=== PATIENT | female | born 2000 | race Caucasian/White ===

== ENCOUNTER 2023-10-31 20:49 | Emergency (ER) | payer OTHER, SELFPAY ==
[2023-10-31 20:57] VITALS: BP 120/74; PULSE 89; TEMP 37.1; O2SAT 98
--- NOTE | 2023-10-31 21:01 | ECG_ITS ---
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
--- NOTE | 2023-10-31 21:17 | ED_ITS ---
HPI - Dizziness General Chief Complaint: Dizziness Stated Complaint: Dizziness Time Seen by Provider: 10/31/23 21:03 Source: patient Mode of arrival: walk-in Limitations: no limitations History of Present Illness HPI Narrative: This 22-year-old female presents for evaluation of one to 2 weeks of intermittent dizziness which is more pronounced when she changes positions. She has not passed out but states if she is up standing and cleaning for a period of time she feels like she could pass out. She has not had any headache, blurred vision, slurred speech confusion or other neurologic symptoms. She denies any ch est pain or shortness of breath. 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 Bob in [facility] put her on metformin 500 mg due to insulin resistance approximately one month ago. She was on the 500 mg dose and then a week later was increased to 1000 mg. She states she is having some side effects from the medication including nausea and decreased appetite. She has been forcing herself to eat and thinks she is drinking enough fluids. She states she was put on the metformin because she is trying to get . She denies that she is currently in as her last menstrual. Just finished. She is not having any abdominal pain or back pain. She does not smoke cigarettes but Coy. She has not had a fever or cough. She denies any headache, nasal congestion or pressure in her ears or sinuses. Related Data Home Medications ?Medication ?Instructions ?Recorded ?Confirmed escitalopram oxalate 10 mg tablet 10 mg PO QDAY 10/31/23 10/31/23 metformin 500 mg tablet,extended 500 mg PO BID 10/31/23 10/31/23 release 24 hr omeprazole 20 mg capsule,delayed 20 mg PO QAM 10/31/23 10/31/23 release ondansetron HCl 4 mg tablet 4 mg PO Q6H PRN nausea and vomiting 10/31/23 10/31/23 Allergies Allergy/AdvReac Type Severity Reaction Status Date / Time paxil Allergy Mild Insomnia Uncoded 10/31/23 20:57 clonidine Allergy hives Uncoded 10/31/23 20:57 Review of Systems ROS Status of ROS 10 or more systems reviewed and unremark able except as noted in history and below [facility] Medical History (Updated 10/31/23 @ 22:14 by Geri Andrews MD) GERD (gastroesophageal reflux disease) ?K21.9 - Gastro-esophageal reflux disease without esophagitis (ICD-10) Anxiety ?F41.9 - Anxiety disorder, unspecified (ICD-10) Exam Narrative Exam Narrative: Nurses note and vital signs reviewed and patient is not hypoxic. General: The patient appears well and in no apparent distress. Patient is resting comfortably on cart. She is smiling. She has intermittent missing of her face which appears to be a tic Skin: Warm, dry, no pallor noted. There is no rash noted. Head: Normocephalic, atraumatic Eye: Normal conjunctiva, no drainage, EOMI. PERRL. No nystagmus. Mild dizziness with provocative testing, vision is grossly intact Ears, Nose, Mouth, and Throat: oral mucosa is moist. Nares patent. Mouth without vesicles. Ear canals patent. Tm's without Erythema Cardiovascular: Regular Rate and [id number], pulses are brisk and equal bilaterally Respiratory: Patient is in no distress, no accessory muscle use, lungs are clear to auscultation, no wheezing, rales or rhonchi Back: non-tender, no CVA tenderness bilaterally to percussion. GI: Normal bowel sounds, no tenderness to palpation, no masses appreciated. No rebound, guarding, or rigidity noted. Musculoskeletal: The patient has no evidence of calf tenderness, no pitting edema, symmetrical pulses noted bilaterally Neurological: A&O x4, normal speech, Facial droop, patient does have intermittent racial grimacing which appears to be chronic in nature, speech is c lear, upper and lower from the strength and sensation is intact Psychiatric: Cooperative, smiling, appears mildly anxious Constitutional Vital Signs, click to edit/add: Last Vital Signs Temp 98.7 F 10/31/23 20:57 Pulse 72 10/31/23 21:30 Resp 14 10/31/23 20:57 BP 114/66 10/31/23 21:30 Pulse Ox 98 10/31/23 20:57 O2 Del Method Room Air 10/31/23 20:57 Course Vital Signs Vital signs: Vital Signs Temperature 98.7 F 10/31/23 20:57 Pulse Rate 89 10/31/23 20:57 Respiratory Rate 14 10/31/23 20:57 Blood Pressure 120/74 10/31/23 20:57 Pulse Oximetry 98 10/31/23 20:57 Oxygen Delivery Method Room Air 10/31/23 20:57 Temperature 98.7 F 10/31/23 20:57 Pulse Rate 72 10/31/23 21:30 Respiratory Rate 14 10/31/23 20:57 Blood Pressure 114/66 10/31/23 21:30 Pulse Oximetry 98 10/31/23 20:57 Oxygen Delivery Method Room Air 10/31/23 20:57 MDM - Dizziness MDM Narrative Medical decision making narrative: This 22-year-old female who has a history of vape use but a nonsmoker For evalu ation of one to 2 weeks of intermittent dizziness which is worse with positional changes. She has not passed out. She denies any chest pain or shortness of breath. She is currently on 1000 mg of metformin daily due to being diagnosed with influenza by her [employer]. She states that since being placed on that she is having side effects including nausea difficulty eating. She does think that she is able to keep up with her fluids. Her physical exam is benign. Her lungs are clear, abdomen is soft, she EKG done upon arrival is a normal sinus rhythm at 76 bpm. Orthostatic vital signs were mildly positive with pulse with standing. An IV was placed and she was medicated with IV fluids and Zofran. Routine labs are reviewed. She has a normal white count and hemoglobin. Glucose is mildly elevated at 125. She has normal d-dimer and troponin. She is not having any associated neurological symptoms with her dizziness and I did not feel that CT scanning of her brain was indicated. On reevaluation she stated she was feeling fine. Discharged home with a prescription for Zofran to use as needed for ongoing nausea with recommendation for close follow-up with her [employer] who has prescribed the metformin as her symptoms appear to be somewhat related to side effects from this medication. Lab Data Attestation: I reviewed the patient's lab results. Labs: Lab Results 10/31/23 Range/Units 21:21 WBC 6.5 (4.0-11.0) 10^3/uL RBC 4.77 (4.20-5.40) 10^6/uL Hgb 14.3 (12.0-16.0) g/dL Hct 42.7 (36.0-48.0) % MCV 89.5 (81.0-99.0) fL MCH 30.0 (26.7-34.0) pg MCHC 33.5 (29.9-35.2) g/dL RDW 11.2 (11.0-15.0) % Plt Count 309 (150-450) 10^3/uL MPV 10.1 (9.5-13.5) fL Neut % (Auto) 55.7 (43.0-75.0) % Lymph % (Auto) 34.4 (20.5-60.0) % [place] % (Auto) 8.0 (1.7-12.0) % Eos % (Auto) 1.2 (0.9-7.0) % Baso % (Auto) 0.5 (0.2-2.0) % Neut # (Auto) 3.6 (1.4-6.5) 10^3/uL Lymph # (Auto) 2.2 (1.2-3.8) 10^3/uL [place] # (Auto) 0.5 (0.3-0.8) 10^3/uL Eos # (Auto) 0.1 (0.0-0.7) 10^3/uL Baso # (Auto) 0.0 (0.0-0.1) 10^3/uL Abs Immat Gran (auto) 0.01 (0.00-0.03) 10^3/uL Imm/Tot Granulo (auto) 0.2 (0.0-0.5) % D-Dimer <0.19 (<=0.59) mg/L FEU Sodium 141 (136-145) mmol/L Potassium 3.5 (3.5-5.1) mmol/L Chloride 104 (98-107) mmol/L Carbon Dioxide 26.8 (21.0-32.0) mmol/L Anion Gap 13.7 BUN 16.0 (7.0-18.0) mg/dL Creatinine 0.84 (0.55-1.02) mg/dL Est GFR ( Amer) >60 (>=60) Est GFR (Non-Af Amer) >60 (>=60) BUN/Creatinine Ratio 19.0 Glucose 125 H (74-106) mg/dL Calcium 9.1 (8.5-10.1) mg/dL Total Bilirubin 0.3 (0.2-1.0) mg/dL AST 13 L (15-37) U/L ALT 14 (14-59) U/L Alkaline Phosphatase 59 (46-116) U/L Troponin I High Sens <4.0 L (4.0-51.3) pg/mL Total Protein 7.6 (6.4-8.2) g/dL Albumin 3.9 (3.4-5.0) g/dL Globulin 3.7 g/dL Albumin/Globulin Ratio 1.1 ECG Data Attestation: I personally reviewed and interpreted this ECG as follows: (Sinus rhythm at 76 beats for minute, normal axis, normal intervals, no acute ST segment elevation or T-wave inversion) Discharge Plan Discharge Stand Alone Forms: Portal Instructions Chief Complaint: Dizziness Clinical Impression: Medication adverse effect, Dehydration, mild Patient Disposition: Home, Self-Care Time of Disposition Decision: 22:14 Prescriptions / Home Meds: No Action metformin 500 mg tablet extended release 24 hr 500 mg PO BID escitalopram oxalate 10 mg tablet 10 mg PO QDAY omeprazole 20 mg capsule,delayed release(DR/EC) 20 mg PO QAM ondansetron HCl 4 mg tablet 4 mg PO Q6H PRN (Reason: nausea and vomiting) Print Language: B[place] Referrals: Physician,Non-Staff, MD [Primary Care Provider] - 1 week
[2023-10-31 21:30] VITALS: BP 114/66; BP 115/72; BP 123/80; PULSE 72; PULSE 82; PULSE 95
[2023-10-31 21:36] LABS: Basophils Percent Auto 0.5 % (0.2-2.0); Eosinophils Absolute Auto 0.1 10^3/uL (0.0-0.7); Eosinophils Percent Auto 1.2 % (0.9-7.0); Hematocrit 42.7 % (36.0-48.0); Hemoglobin 14.3 g/dL (12.0-16.0); Immature Granulocytes Abs Auto 0.01 10^3/uL (0.00-0.03); Immature Granulocytes Pct Auto 0.2 % (0.0-0.5); Lymphocytes Absolute Auto 2.2 10^3/uL (1.2-3.8); Lymphocytes Percent Auto 34.4 % (20.5-60.0); Mean Corpuscular HGB Conc 33.5 g/dL (29.9-35.2); Mean Corpuscular Volume 89.5 fL (81.0-99.0); Mean Platelet Volume 10.1 fL (9.5-13.5); Monocytes Absolute Auto 0.5 10^3/uL (0.3-0.8); Neutrophils Absolute Auto 3.6 10^3/uL (1.4-6.5); Neutrophils Percent Auto 55.7 % (43.0-75.0); Platelet Count 309 10^3/uL (150-450); Red Blood Count 4.77 10^6/uL (4.20-5.40); Red Cell Distribution Width 11.2 % (11.0-15.0); White Blood Count 6.5 10^3/uL (4.0-11.0)
[2023-10-31] MEDS: 0.9 % SODIUM CHLORIDE 1,000 ML 1000 ML IV (21:48)
[2023-10-31] MEDS: ONDANSETRON PF 4 MG/2 ML VIAL IV (21:48)
[2023-10-31 21:52] LABS: Alanine Aminotransferase 14 U/L (14-59); Albumin Globulin Ratio 1.1; Albumin Level 3.9 g/dL (3.4-5.0); Alkaline Phosphatase 59 U/L (46-116); Anion Gap 13.7; Aspartate Amino Transferase 13 U/L (15-37); Bilirubin Total 0.3 mg/dL (0.2-1.0); Calcium 9.1 mg/dL (8.5-10.1); Carbon Dioxide 26.8 mmol/L (21.0-32.0); Chloride 104 mmol/L (98-107); Estimated GFR (African America >60 (>=60); Estimated GFR (Non-African Ame >60 (>=60); Globulin 3.7 g/dL; Glucose 125 mg/dL (74-106); Potassium 3.5 mmol/L (3.5-5.1); Sodium 141 mmol/L (136-145); Total Protein 7.6 g/dL (6.4-8.2)
[2023-10-31 21:55] LABS: D Dimer <0.19 mg/L FEU (<=0.59); Troponin I High Sensitivity <4.0 pg/mL (4.0-51.3)
[2023-10-31 23:01] LABS: Bilirubin Urine NEGATIVE (NEGATIVE); Blood Urine MODERATE (NEGATIVE); Clarity Urine CLEAR (CLEAR); Color Urine YELLOW (YELLOW); Glucose Urine UA NEGATIVE (NEGATIVE); Ketones Urine TRACE mg/dL (NEGATIVE); Leukocyte Esterase Urine NEGATIVE (NEGATIVE); Nitrite Urine NEGATIVE (NEGATIVE); Protein Urine NEGATIVE (NEG/TRACE); Specific Gravity Urine >=1.030 (1.005-1.025)
[2023-10-31 23:02] LABS: HCG Qualitative Urine* NEGATIVE (NEGATIVE)
[2023-10-31 23:29] LABS: Bacteria Urine MODERATE #/HPF (NONE SEEN); Cast Seen? NONE SEEN #/LPF (NONE SEEN); Crystals Seen? None Seen #/HPF (None Seen); Mucus Urine NONE SEEN (NONE SEEN); RBC Urine 0-2 #/HPF (0-2); Squamous Epithelial Cell Urine MANY #/LPF (NONE/RARE); Urine Culture Indicated YES; WBC Urine 0-2 #/HPF (NONE SEEN)
== END 2023-10-31 23:09 | disposition home or self-care (01) ==
PROVIDERS: Emergency Provider Emergency Medicine
DX: R42 Dizziness and giddiness (principal); E88.819 Insulin resistance, unspecified; K21.9 Gastro-esophageal reflux disease without esophagitis; F41.9 Anxiety disorder, unspecified; F17.290 Nicotine dependence, other tobacco product, uncomplicated; Z79.84 Long term (current) use of oral hypoglycemic drugs; Z79.899 Other long term (current) drug therapy
CPT/HCPCS: 36415; 80053; 81001; 84484; 84703; 85025; 85378; 87086; 93005; 96361; 96374; 99285

== ENCOUNTER 2023-11-15 22:29 | Emergency (ER) | payer OTHER, SELFPAY ==
[2023-11-15 22:34] VITALS: BP 125/86; PULSE 72; TEMP 36.6; O2SAT 98; BMI 19.5
--- NOTE | 2023-11-15 22:52 | ED_ITS ---
HPI - Female Genitourinary General Chief complaint: Urogenital-Female Stated complaint: Pelvic Pain Time Seen by Provider: 11/15/23 22:50 Source: patient Mode of arrival: walk-in History of Present Illness HPI Narrative: presents complaining of pelvic pain. ongoing past 2-3 days. Some discomfort with urination. Normal vaginal discharge. No fever. States she is not Related Data Home Medications ?Medication ?Instructions ?Recorded ?Confirmed escitalopram oxalate 10 mg tablet 10 mg PO QDAY 10/31/23 10/31/23 metformin 500 mg tablet,extended 500 mg PO BID 10/31/23 10/31/23 release 24 hr omeprazole 20 mg capsule,delayed 20 mg PO QAM 10/31/23 10/31/23 release ondansetron HCl 4 mg tablet 4 mg PO Q6H PRN nausea and vomiting 10/31/23 10/31/23 Allergies Allergy/AdvReac Type Severity Reaction Status Date / Time paxil Allergy Mild Insomnia Uncoded 10/31/23 20:57 clonidine Allergy hives Uncoded 10/31/23 20:57 Review of Systems ROS Status of ROS 10 or more systems reviewed and unremark able except as noted in history and below [facility] Medical History (Updated 11/16/23 @ 00:11 by Alexander De Jesus MD) GERD (gastroesophageal reflux disease) ?K21.9 - Gastro-esophageal reflux disease without esophagitis (ICD-10) Anxiety ?F41.9 - Anxiety disorder, unspecified (ICD-10) Exam Constitutional Vital Signs, click to edit/add: Last Vital Signs Temp 97.8 F 11/15/23 22:34 Pulse 72 11/15/23 22:34 Resp 16 11/15/23 22:34 BP 125/86 11/15/23 22:34 Pulse Ox 98 11/15/23 22:34 O2 Del Method Room Air 11/15/23 22:34 Common normals: no apparent distress, average body habitus, oriented x3, no limitations, healthy appearing, alert and well nourished Eye Common normals: EOMs intact bilaterally and conjunctivae normal Respiratory Common normals: normal respiratory effort, no retractions, no use of accessory muscles and clear to auscultation bilaterally Cardio Common normals: regular rate, regular rhythm, S1 normal heart sound and S2 normal heart sound GI Common normals: Normal to inspection, nondistended, normoactive bowel sounds present, soft to palpation and non-tender Extremity Common normals: normal to inspection and full ROM Neuro Common normals: oriented x3, CN's II-XII intact bilaterally, moves all extremities and no focal motor deficits Psych Appearance: grossly normal Course Vital Signs Vital signs: Vital Signs Temperature 97.8 F 11/15/23 22:34 Pulse Rate 72 11/15/23 22:34 Respiratory Rate 16 11/15/23 22:34 Blood Pressure 125/86 11/15/23 22:34 Pulse Oximetry 98 11/15/23 22:34 Oxygen Delivery Method Room Air 11/15/23 22:34 Temperature 97.8 F 11/15/23 22:34 Pulse Rate 72 11/15/23 22:34 Respiratory Rate 16 11/15/23 22:34 Blood Pressure 125/86 11/15/23 22:34 Pulse Oximetry 98 11/15/23 22:34 Oxygen Delivery Method Room Air 11/15/23 22:34 MDM - Female Genitourinary MDM Narrative Medical decision making narrative: patient presents complaining of pelvic discomfort. Exam with mild suprapubic tenderness. UA neg. Patient informed that her urine was clear. She stated that she is actually feeling better now and requested discharge. States she will follow up with her doctor Lab Data Labs: Lab Results 11/15/23 Range/Units 22:45 Urine Color Yellow (YELLOW) Urine Clarity Clear (CLEAR) Urine pH 6.5 (5.0-9.0) Ur Specific [place] 1.025 (1.005-1.025) Urine Protein Negative (NEG/TRACE) mg/dL Urine Glucose (UA) Negative (NEGATIVE) mg/dL Urine Ketones Negative (NEGATIVE) mg/dL Urine Occult Blood Negative (NEGATIVE) Urine Nitrite Negative (NEGATIVE) Urine Bilirubin Negative (NEGATIVE) Urine Urobilinogen 0.2 (0.2-1.0) EU/dL Ur Leukocyte Esterase Negative (NEGATIVE) Urine HCG, Qual Negative (NEGATIVE) Discharge Plan Discharge Stand Alone Forms: Portal Instructions Chief Complaint: Urogenital-Female Clinical Impression: Pelvic pain Patient Disposition: Home, Self-Care Prescriptions / Home Meds: No Action metformin 500 mg tablet extended release 24 hr 500 mg PO BID escitalopram oxalate 10 mg tablet 10 mg PO QDAY omeprazole 20 mg capsule,delayed release(DR/EC) 20 mg PO QAM ondansetron HCl 4 mg tablet 4 mg PO Q6H PRN (Reason: nausea and vomiting) Print Language: Kittitian Instructions: Pelvic Pain (ED) Additional Instructions: follow up with your doctor in the next few days Referrals: Physician,Non-Staff, MD [Primary Care Provider] - 1 week
[2023-11-15 22:57] LABS: Bilirubin Urine NEGATIVE (NEGATIVE); Blood Urine NEGATIVE (NEGATIVE); Clarity Urine CLEAR (CLEAR); Color Urine YELLOW (YELLOW); Glucose Urine UA NEGATIVE (NEGATIVE); Ketones Urine NEGATIVE (NEGATIVE); Leukocyte Esterase Urine NEGATIVE (NEGATIVE); Nitrite Urine NEGATIVE (NEGATIVE); Protein Urine NEGATIVE (NEG/TRACE); Specific Gravity Urine 1.025 (1.005-1.025); Urobilinogen Urine 0.2 EU/dL (0.2-1.0); pH Urine 6.5 (5.0-9.0)
[2023-11-15 22:58] LABS: HCG Qualitative Urine* NEGATIVE (NEGATIVE); Urine Microscopic Indicated NO
== END 2023-11-16 00:23 | disposition home or self-care (01) ==
PROVIDERS: Emergency Provider Internal Medicine
DX: R10.2 Pelvic and perineal pain (principal); K21.9 Gastro-esophageal reflux disease without esophagitis; F41.9 Anxiety disorder, unspecified; Z79.899 Other long term (current) drug therapy; Z79.84 Long term (current) use of oral hypoglycemic drugs
CPT/HCPCS: 81003; 84703; 99283

== ENCOUNTER 2023-11-29 22:13 | Emergency (ER) | payer OTHER, SELFPAY ==
[2023-11-29 22:25] VITALS: BP 116/81; PULSE 88; TEMP 36.9; O2SAT 98
--- OUTSIDE RECORDS SUMMARY | 2023-11-29 22:28 | XMS_ITS | CCD ---
Author Organization [facility] Care Team Providers Care Radio Technician Name Role Phone Page Adan Primary Care Unavailable Esdras Villanueva Admitting Unavailable Esdras Villanueva Attending Unavailable Page Adan Primary Care Unavailable Cornici, Hong Admitting Unavailable Cornici, Hong Attending Unavailable Page Adan Primary Care Unavailable Cornici, Hong Admitting Unavailable Cornici, Hong Attending Unavailable HABERDILIA SNOW Admitting Unavailable HABDILIA OWUSU Attending Unavailable NO, DOCTOR ON Referring Unavailable DILIA BURNS Primary Care Unavailable NO, DOCTOR ON Consulting Unavailable Page Adan Unavailable Alie Rodriguez Unavailable Unavailable Jordyn Ramirez D Unavailable Unavailable Unavailable Jordyn Ramirez CNP Primary Care Provider [phone] JOSELIN NOYOLA Referring Unavailable JOSELIN NOYOLA Admitting Unavailable RAMIREZ, JORDYN ARIE Primary Care Unavailable JOSELIN NOYOLA Attending Unavailable RAMIREZ, JORDYN ARIE Primary Care Unavailable JOSELIN NOYOLA Referring Unavailable RAMIREZ, JORDYN ARIE Primary Care Unavailable JOSELIN NOYOLA Admitting Unavailable JOSELIN NOYOLA Attending Unavailable RAMIREZ, JORDYN ARIE Primary Care Unavailable JOSELIN NOYOLA Referring Unavailable JOSELIN NOYOLA Admitting Unavailable RAMIREZ, JORDYN ARIE Primary Care Unavailable JOSELIN NOYOLA Attending Unavailable RAMIREZ, JORDYN ARIE Primary Care Unavailable Jordyn Thakur Unavailable Page Adan Unavailable Jordyn Thakur Unavailable Tyrell Pelaez Unavailable Unavailable Fried, Jocelyne Unavailable Unavailable Ofe RAILWAY SIGNALLING ENGINEER-INSTRUCTOR [employer]PAR[employer]URE, Jordyn D Primary Care Provider Alie Flor Unavailable Unavailabl e RAMIREZ, JORDYN ARIE Primary Care Unavailable STANLEY QUILES Attending Unavailable STANLEY QUILES Attending Unavailable JEREMIASGo JOANNA JAKEM Primary Care Unav ailable ASHLEY, JORDYN ARIE Primary Care Unavailable MARE LEAVITT Attending Unava ilBautista Alberts Unavailable Unavailable Chris Blue. Unavailable Unavailabl e THAKUR, INSTRUCTOR APPAREL MANUFACTURE JORDYN ARIE Primary Care Unavailab le Fried, . Jocelyne Lee Attending Unavailabl e THAKUR, INSTRUCTOR APPAREL MANUFACTURE JORDYN ARIE Primary Care Unavailab le Zarrabi, Dr. Mcmullen Attending Unavailable Wale, Dr. Mcmullen Referring Unavailable THAKUR, KARLENE JORDYN ARIE Attending Unavailab le THAKUR, INSTRUCTOR APPAREL MANUFACTURE JORDYN ARIE Referring Unavailab le THAKUR, INSTRUCTOR APPAREL MANUFACTURE JORDYN ARIE Primary Care Unavailab le THAKUR, INSTRUCTOR APPAREL MANUFACTURE JORDYN ARIE Attending Unavailab le THAKUR, INSTRUCTOR APPAREL MANUFACTURE JORDYN ARIE Referring Unavailab le THAKUR, INSTRUCTOR APPAREL MANUFACTURE JORDYN ARIE Primary Care Unavailab le Doryrrcandace, Dr. Mcmullen Attending Unavailable Zarrcandace, Dr. Mcmullen Referring Unavailable THAKUR, INSTRUCTOR APPAREL MANUFACTURE JORDYN ARIE Primary Care Unavailab le THAKUR, KARLENE JORDYN ARIE Primary Care Unavailab le Zarrabi, Dr. Mcmullen Attending Unavailable Wale, Dr. Mcmullen Referring Unavailable Thakur FATEMEH-KARLENE, Jordyn D Unavailable Abdelrahman DIANE, Claudia Unavailable Unavailable Basia, Ms. Alie Ward Attending Unavailable Thakur, Ms. Jordyn Arie Primary Care Unavailab le Thakur, Ms. Jordyn Arie Primary Care Unavailab le LeMasters, Dr. Chris Lemos Attending Unav ailable Thakur, Ms. Jordyn Arie Primary Care Unavailab le Latanya, Dr. Tyrell Gray Attending Unavailabl e Thakur, Ms. Jordyn Arie Primary Care Unavailab le Bautista Villanueva Attending Unavailable Daniel Berkowitz Admitting Unavailab le Daniel Berkowitz Referring Unavailab le OFE JORDYN D Primary Care Unavailable NONE, XXXX Primary Care Physician Unavailab Anika Reaves Attending Unavailable Anika Bob Admitting Unavailable THAUKRJORDYN CELESTIN Attending Unavailable THAKUR, JORDYN D Primary Care Unavailable KEMI ECHEVARRIA Attending Unavailable THAKUR, JORDYN D Primary Care Unavailable THAKUR, JORDYN D Attending Unavailable THAKUR, JORDYN D Primary Care Unavailable THAKUR, JORDYN D Attending Unavailable THAKUR, JORDYN D Primary Care Unavailable THAKUR, JORDYN D Attending Unavailable THAKUR, JORDYN D Primary Care Unavailable BRADANIKA Attending Unavailable THAKUR, JORDYN D Primary Care Unavailable THAKUR, JORDYN D Attending Unavailable THAKUR, JORDYN D Primary Care Unavailable THAKUR, JORDYN D Attending Unavailable THAKUR, JORDYN D Primary Care Unavailable THAKUR, JORDYN D Attending Unavailable THAKUR, JORDYN D Primary Care Unavailable THAKUR, JORDYN D Primary Care Unavailable Allergies Allergy Classification Reported Allergen(s) Allergy Type Date of Onset Reaction(s) Facility cloNIDine (1 source) cloNIDine Drug Allergy Hives/Urticaria [facility] (20 sources) cloNIDine; Translations: [clonidine] Drug Allergy 1 [facility] Rep[facility] (9 sources) PARoxetine; Translations: [PAROXETINE HCL] Drug Allergy 3 [facility] Work Phone: Medications Current Medications Medication Drug Class(es) Dates Sig (Normalized) Sig (Original) azithromycin 250 mg oral tablet (1 source) Macrolide Antimicrobial Start: 09-19-2023 End: 09-23-2023 azithromycin (Zithromax) 250 mg tablet Indications: Acute non-recurrent sinusitis, unspecified location Take 2 tablets (500 mg) by mouth once daily for 1 day, THEN 1 tablet (250 mg) once daily for 4 days. Take 2 tabs (500 mg) by mouth today, than 1 daily for 4 days.. 6 tablet 0 09/19/2023 09/23/2023 Active busPIRone hydrochloride 5 mg oral tablet (17 sources) Start: 03-03-2022 busPIRone (Buspar) 5 mg tablet Take by mouth 3 times a day as needed. 0 03/03/2022 Active cefdinir 300 mg oral capsule (4 sources) Cephalosporin Antibacterial Start: 04-11-2023 End: 05-18-2023 take 1 capsule by mouth twice daily cefdinir 300 mg oral capsule ; 1 cap(s) orally 2 times a day Quantity: 8 Refills: 0 Ordered: 11-Apr-2023 Bautista Villanueva Start: 11-Apr-2023 End: 14-Apr-2023 Generic Substitution Allowed Comments: Finish all this medication unless otherwise directed by prescriber. Comment on above: Finish all this medi cation unless otherwise directed by prescriber. clomiPHENE citrate 50 mg oral tablet (1 source) Estrogen Agonist/Antagonist Start: 10-04-2023 take 1 tablet by mouth once daily Clomid 50 mg tablet Take 1 tablet (50 mg) by mouth once daily. 0 10/04/2023 Active COVID-19 antigen test (COVID-19 At-Home Test) kit (1 source) Start: 09-19-2023 End: 09-19-2023 COVID-19 antigen test (COVID-19 At-Home Test) kit Indications: Nasal congestion 1 each 1 time for 1 dose. 2 each 0 09/19/2023 09/19/2023 Active escitalopram 20 mg oral tablet (4 sources) Serotonin Reuptake Inhibitor Start: 10-10-2023 take 1 tablet by mouth once daily escitalopram (Lexapro) 20 mg tablet Indications: Generalized anxiety disorder with panic attacks Take 1 tablet (20 mg) by mouth once daily. 90 tablet 2 10/10/2023 Active Start: 09-12-2023 End: 10-10-2023 take 1 tablet by mouth once daily escitalopram (Lexapro) 10 mg tablet Indications: Generalized anxiety disorder with panic attacks Take 1 tablet (10 mg) by mouth once daily. 90 tablet 0 09/12/2023 10/10/2023 Discontinued (Therapy completed) ibuprofen 400 mg oral tablet (1 source) Nonsteroidal Anti-inflammatory Drug Start: 04-24-2022 End: 05-24-2022 take 1 tablet by mouth every six hours as needed for pain ibuprofen (ADVIL,MOTRIN) 400 MG tablet Take 1 (one) tablet (400 mg total) by mouth every 6 (six) hours as needed for pain . 30 tablet 0 04/24/2022 05/24/2022 Active 24 hr metFORMIN hydrochloride 500 mg extended release oral tablet (1 source) Biguanide Start: 10-02-2023 take 1 tablet by mouth every twenty-four hours metFORMIN XR 500 mg 24 hr tablet Take 1 tablet (500 mg) by mouth. 0 10/02/2023 Active nitrofurantoin, macrocrystals 25 mg / nitrofurantoin, monohydrate 75 mg oral capsule (1 source) Nitrofuran Antibacterial Start: 05-18-2023 End: 05-25-2023 take 1 capsule by mouth twice daily nitrofurantoin, macrocrystal-monohyd rate, (Macrobid) 100 mg capsule Indications: Urinary tract infection with hematuria, site unspecified Take 1 capsule (100 mg) by mouth 2 times a day for 7 days. 14 capsule 0 05/18/2023 05/25/2023 Active omeprazole 20 mg delayed release oral capsule (20 sources) Proton Pump Inhibitor Start: 03-03-2022 End: 05-18-2023 take 1 capsule by mouth once daily before mealtime omeprazole (PriLOSEC) [address] capsule Indications: Gastroesophageal reflux disease without esophagitis Take 1 capsule (20 mg) by mouth once daily in the morning. Take before meals. 90 capsule 1 05/18/2023 Active ondansetron 4 mg oral tablet (3 sources) Serotonin-3 Receptor Antagonist Start: 09-19-2023 take 1 tablet by mouth every eight hours as needed for nausea and nausea ondansetron (Zofran) 4 mg tablet Indications: Nausea Take 1 tablet (4 mg) by mouth every 8 hours if needed for nausea or vomiting. 30 tablet 0 09/19/2023 Active Start: 11-06-2022 End: 11-07-2022 take 1 tablet by mouth three times daily as needed for nausea and vomiting ondansetron 4 mg oral tablet, disintegrating ; 1 tab(s) orally 3 times a day, As Needed -for nausea and vomiting Quantity: 6 Refills: 0 Ordered: 06-Nov-2022 Alie Flor Start: 06-Nov-2022 End: 07-Nov-2022 Generic Substitution Allowed PARoxetine hydrochloride 20 mg oral tablet (13 sources) Serotonin Reuptake Inhibitor Start: 04-23-2023 End: 05-18-2023 take 1 tablet by mouth once daily PARoxetine (Paxil) 20 mg tablet Indications: Generalized anxiety disorder with panic attacks Take 1 tablet (20 mg) by mouth once daily. 90 tablet 3 04/23/2023 05/18/2023 Discontinued (Therapy completed) Start: 02-14-2023 End: 04-23-2023 take 1 tablet by mouth once daily PARoxetine (Paxil) 40 mg tablet Indications: Generalized anxiety disorder with panic attacks Take 1 tablet (40 mg) by mouth once daily. 90 tablet 1 02/14/2023 04/23/2023 Discontinued (Reorder) Start: 03-03-2022 take 1 tablet by christiano th once daily PARoxetine (Paxil) 40 mg tablet Take 1 tablet (40 mg) by mouth once daily. 0 08/03/2022 Active Start: 03-03-2022 take 1 tablet by christiano th once daily PARoxetine HCl - 30 MG Oral Tablet TAKE 1 TABLET DAILY. Quantity: 90 Refills: 1 Ordered: 06-Jun-2022 Ofe RAILWAY SIGNALLING ENGINEER-INSTRUCTOR [employer]PAR[employer]UFACTURE, Jordyn Start : 03-Mar-2022 Active Start: 03-03-2022 take 1 tablet by christiano th once daily PARoxetine HCl - 10 MG Oral Tablet TAKE 1 TABLET DAILY. Quantity: 90 Refills: 0 Ordered: 03-Mar-2022 Ashley RAILWAY SIGNALLING ENGINEER-INSTRUCTOR [employer]PAREL [employer]UFACTURE, Jordyn Start : 03-Mar-2022 Active take 1 tablet by christiano th once daily in the morning PARoxetine mesylate 40 mg oral tablet ; 1 tab(s) orally once a day (in the morning) Quantity: 0 Refills: 0 Ordered: 24-Aug-2022 Denis Kurtz Generic Substitution Allowed phenazopyridine hydrochloride 200 mg oral tablet (1 source) Start: 06-19-2023 End: 06-21-2023 take 1 tablet by mouth three times daily phenazopyridine (Pyridium) 200 mg tablet Indications: Urinary tract infection without hematuria, site unspecified Take 1 tablet (200 mg) by mouth 3 times a day for 2 days. 6 tablet 0 06/19/2023 06/21/2023 Active Completed/Discontinued Medications Medication Drug Class(es) Dates Sig (Normalized) Sig (Original) cephalexin 500 mg oral capsule (2 sources) Cephalosporin Antibacterial Start: 06-19-2023 End: 06-24-2023 cephalexin (Keflex) capsule 500 mg citalopram 10 mg oral tablet (7 sources) Serotonin Reuptake Inhibitor Start: 09-12-2023 End: 10-10-2023 take 1 tablet by mouth once daily citalopram (CeleXA) 10 mg tablet Indications: Generalized anxiety disorder with panic attacks Take 1 tablet (10 mg) by mouth once daily. 30 tablet 0 09/12/2023 10/10/2023 Discontinued (Therapy completed) Start: 07-13-2023 End: 09-12-2023 take 1 tablet by mouth once daily citalopram (CeleXA) 40 mg tablet Indications: Generalized anxiety disorder with panic attacks Take 1 tablet (40 mg) by mouth once daily. 90 tablet 1 07/13/2023 09/12/2023 Discontinued (Therapy completed) Start: 05-18-2023 take 1 tablet by christiano once daily citalopram (CeleXA) 10 mg tablet Indications: Generalized anxiety disorder with panic attacks Take 1 tablet (10 mg) by mouth once daily. 90 tablet 0 05/18/2023 Active fluconazole 150 mg oral tablet (2 sources) Azole Antifungal Start: 10-20-2022 End: 04-23-2023 fluconazole (Diflucan) 150 mg tablet Indications: Vaginal yeast infection TAKE 1 TAB Q72 HOURS PRN 3 tablet 0 10/20/2022 04/23/2023 Discontinued (Therapy completed) medroxyPROGESTERone (2 sources) Progestin inject 1 mL by intramuscular injection every three months Depo-Provera SUSP INJECT 1 ML INTRAMUSCULARLY ONCE EVERY 3 MONTHS. Quantity: 0 Refills: 0 Ordered: 03-Mar-2022 DO Active nirmatrelvir-ritonavir (Paxlovid) 300 mg (150 mg x 2)-100 mg tablet therapy pack (1 source) Start: 09-20-2023 End: 10-10-2023 take 3 tablets by mouth twice daily nirmatrelvir-riton avir (Paxlovid) 300 mg (150 mg x 2)-100 mg tablet therapy pack Indications: COVID-19 Take 3 tablets by mouth 2 times a day. 30 tablet 0 09/20/2023 10/10/2023 Discontinued (Therapy completed) nitrofurantoin, macrocrystals 100 mg oral capsule (1 source) Nitrofuran Antibacterial Start: 07-04-2023 End: 08-21-2023 nitrofurantoin (Macrodantin) 100 mg capsule take 1 capsule twice a day for 3 to 7 days 0 07/04/2023 08/21/2023 Discontinued (Therapy completed) predniSONE 10 mg oral tablet (2 sources) Start: 09-19-2023 End: 10-10-2023 take 3 tablets by mouth once daily predniSONE (Deltasone) 10 mg tablet Indications: Acute non-recurrent sinusitis, unspecified location Take 3 tablets (30 mg) by mouth once daily. 15 tablet 0 09/19/2023 10/10/2023 Discontinued (Therapy completed) Problems Active Problems Problem Classification Problem Date Documented Date Episodic/Chronic Administrative/socia l admission (3 sources) Patient encounter status; Translations: [Other reasons for seeking consultation] 08-21-2023 Episodic Anxiety disorders (20 sources) Generalized anxiety disorder; Translations: [Generalized anxiety disorder] Onset: 08-24-2022 10-20-2022 Chronic Attention-deficit, conduct, and disruptive behavior disorders (8 sources) Attention deficit hyperactivity disorder; Translations: [Attention-deficit hyperactivity disorder, unspecified type] Onset: 02-22-2011 10-20-2022 Chronic Contraceptive and procreative management (4 sources) Encounter for other general counseling and advice on contraception; Translations: [Encounter for other general counseling and advice on contraception] Onset: 08-21-2023 Episodic Esophageal disorders (18 sources) Gastroesophageal reflux disease; Translations: [Esophageal reflux] Onset: 10-19-2016 10-20-2022 Chronic Menstrual disorders (12 sources) Missed period; Translations: [Irregular menstrual cycle] Onset: 10-20-2022 10-20-2022 Chronic Nausea and vomiting (7 sources) Nausea; Translations: [Nausea alone] Onset: 11-06-2022 11-06-2022 Episodic Other aftercare (2 sources) Encounter for follow-up examination after completed treatment for conditions other than malignant neoplasm; Translations: [Encounter for follow-up examination after completed treatment for conditions other than malignant neoplasm] Onset: 06-07-2022 Episodic Other aftercare (1 source) Other fci (current) drug therapy; Translations: [Other terminal superintendent (current) drug therapy] Onset: 04-13-2023 Episodic Other female genital disorders (2 sources) Vaginal bleeding 08-24-2022 Chronic Comment on above: VAGINAL BLEEDING Other female genital disorders (2 sources) Abnormal uterine bleeding; Translations: [Other disorders of menstruation and other abnormal bleeding from female genital tract] 08-24-2022 Chronic Other female genital disorders (1 source) Other specified abnormal uterine and vaginal bleeding; Translations: [Other specified abnormal uterine and vaginal bleeding] Onset: 08-24-2022 Chronic Other female genital disorders (1 source) Abnormal uterine and vaginal bleeding, unspecified; Translations: [Abnormal uterine and vaginal bleeding, unspecified] Onset: 08-24-2022 Chronic Other hematologic conditions (2 sources) Precipitous drop in hematocrit 04-10-2023 Episodic Other nutritional; endocrine; and metabolic disorders (1 source) Weight gain; Translations: [Abnormal weight gain] Episodic Other upper respiratory disease (3 sources) Nasal congestion; Translations: [Nasal congestion] Onset: 09-19-2023 09-19-2023 Episodic Other upper respiratory disease (2 sources) Pain in throat; Translations: [Sore Throat] Onset: 09-19-2023 Episodic Other upper respiratory infections (5 sources) Acute pharyngitis, unspecified; Translations: [Acute sinusitis] Onset: 10-02-2022 Episodic Residual codes; unclassified (6 sources) History finding; Translations: [Other specified conditions influencing health status] Episodic Residual codes; unclassified (2 sources) Pain, unspecified; Translations: [Pain, unspecified] Onset: 05-10-2022 Episodic Residual codes; unclassified (2 sources) Influenza vaccination declined; Translations: [Vaccination not carried out because of patient refusal] Onset: 06-14-2022 Episodic Spondylosis; intervertebral disc disorders; other back problems (4 sources) Low back pain; Translations: [Dorsalgia, unspecified] Onset: 04-13-2023 04-13-2023 Episodic Comment on above: LOWER BACK PAIN Substance-related disorders (15 sources) Nicotine dependence; Translations: [Tobacco use disorder] Onset: 10-20-2022 10-20-2022 Chronic Unclassified (2 sources) LIGHT HEADED 01-04-2021 Comment on above: LIGHT HEADED Unclassified (1 source) Dizzy 01-04-2021 Unclassified (2 sources) Injury Onset: 04-25-2022 Unclassified (1 source) 6 WEEK FU LABS 08-03-2022 Comment on above: 6 WEEK FU LABS Unclassified (1 source) SPOTTING? 08-09-2022 Comment on above: SPOTTING? Unclassified (2 sources) UPSET STOMACH, DIZZYNESS 11-06-2022 Comment on above: UPSET STOMACH, DIZZY NESS Unclassified (1 source) Acute abdominal pain in right lower quadrant 04-09-2023 Unclassified (1 source) Acute candidiasis of vulva and vagina; Translations: [Acute candidiasis of vulva and vagina] Onset: 10-20-2022 Past or Other Problems Problem Classification Problem Date Documented Date Episodic/Chronic Abdominal pain (17 sources) Right lower quadrant pain; Translations: [Abdominal pain, right lower quadrant] Onset: 04-13-2023 04-09-2023 Episodic Acquired foot deformities (8 sources) Talipes cavus; Translations: [Congenital pes cavus, unspecified foot] Onset: 03-31-2014 10-20-2022 Episodic Acute and unspecified renal failure (17 sources) Injury of kidney; Translations: [Acute kidney failure, unspecified] Onset: 04-11-2023 04-09-2023 Episodic Comment on above: ACUTE KIDNEY FAILURE , UNSPECIFIED Conditions associated with dizziness or vertigo (15 sources) Dizziness; Translations: [Dizziness and giddiness] Onset: 10-20-2022 Resolved: 09-12-2023 01-04-2021 Episodic Fracture of upper limb (5 sources) Closed fracture of distal phalanx of middle finger; Translations: [Nondisplaced fracture of distal phalanx of left middle finger, initial encounter for closed fracture] Onset: 04-24-2022 Episodic Genitourinary symptoms and ill-defined conditions (19 sources) History of urinary tract infection; Translations: [Personal history of urinary (tract) infections] Onset: 04-23-2023 04-23-2023 Episodic Mycoses (9 sources) Candidiasis of vagina; Translations: [Vaginal yeast infection] Onset: 10-20-2022 Resolved: 04-23-2023 10-20-2022 Episodic Other injuries and conditions due to external causes (1 source) Underdosing of selective serotonin reuptake inhibitors, initial encounter; Translations: [Underdosing of selective serotonin reuptake inhibitors, init] Onset: 11-06-2022 Episodic Other skin disorders (12 sources) Night sweats; Translations: [Generalized hyperhidrosis] Onset: 10-20-2022 Resolved: 09-12-2023 10-20-2022 Episodic Residual codes; unclassified (12 sources) Insomnia; Translations: [Insomnia, unspecified] Onset: 10-20-2022 10-20-2022 Episodic Residual codes; unclassified (1 source) Patient's unintentional underdosing of medication regimen for other reason; Translations: [Patient's unintent undrdose of meds regimen for oth reason] Onset: 11-06-2022 Episodic Screening and history of mental health and substance abuse codes (2 sources) Screening - NAD; Translations: [Screening for depression] Onset: 08-24-2022 Episodic Unclassified (8 sources) Onset: 10-20-2022 Resolved: 10-10-2023 10-20-2022 Unclassified (1 source) STOMACH PAIN AND VOMITTING 04-09-2023 Comment on above: STOMACH PAIN AND VOM ITTING Unclassified (1 source) Acute candidiasis of vulva and vagina; Translations: [Acute candidiasis of vulva and vagina] Onset: 02-14-2023 Urinary tract infections (20 sources) Acute cystitis without hematuria; Translations: [Pyelonephritis] Onset: 02-14-2023 Resolved: 04-23-2023 Episodic Results Test Name Value Interpretation Reference Range Facility Anti-Mullerian Hormone (AMH) on 09-27-2023 Mullerian inhibiting substance [Mass/Vol] 1.81 ng/mL Invalid Interpretation Code [facility] Comment on above: Result Comment: For assays employing antibodies, the possibility exists for interference by heterophile antibodies in the samples.1 1.Hermelinda Durán Interferences in Immunoassays - still a threat. Clin. Chem. 2000; 46: 0657-8838. This test was developed and its performance characteristics determined by [employer]. It has not been cleared or approved by the Food and Drug Administration. Reference Range: Females 20 - 25y: 1.23 - 11.51 Median 4.70 AMH concentrations of >= 1.06 ng/mL is correlated with a better response to ovarian stimulation, produced more retrievable oocytes and higher odds of live according to Evier et al. Fertility and Sterility. 2010: 94:0450-6828. The current AMH test method correlates with the study method with a slope of 0.94. Females at risk of ovarian hyperstimulation syndrome or polycystic ovarian syndrome (PCOS) may exhibit elevated serum AMH concentrations. AMH levels from PCOS patients may be 2 to 5 fold higher than age-appropriate reference interval values. Granulosa cell tumors of the ovary may secrete AMH along with other tumor markers. Elevated AMH is not specific for malignancy, and the assay should not be used exclusively to diagnose or exclude an AMH-secreting ovarian tumor. Performed at: [facility] [address], [place] [id number] MD Todd Bedoya Performed By: #### 2 [id number] #### [facility] [address] [place] [address] FSH and LHon 09-27-2023 Follitropin Qn 2.8 m[IU]/mL Invalid Interpretation Code [facility] Comment on above: Result Comment: Adul t Female Range Follicular phase 3.5 - 12.5 Ovulation phase 4.7 - 21.5 Luteal phase 1.7 - 7.7 Postmenopausal 25.8 - 134.8 Performed at: [address] [id number] PhD Tim Quezada Performed By: #### 2 [id number] #### [facility] [address] [place] [address] Lutropin Qn 3.8 m[IU]/mL Invalid Interpretation Code [facility] Comment on above: Result Comment: Adul t Female Range Follicular phase 2.4 - 12.6 Ovulation phase 14.0 - 95.6 Luteal phase 1.0 - 11.4 Postmenopausal 7.7 - 58.5 Performed By: #### 2 [id number] #### [facility] [address] [place] [address] Insulin Lvlon 09-27-2023 Insulin Qn 31.9 u[IU]/mL High 2.6-24.9 [facility] Comment on above: Result Comment: Perf ormed at: [address] [id number] PhD Tim Quezada Performed By: #### 2 [id number] #### [facility] [address] [place] [address] CHEMISTRYOrdered By: SYSTEM SYSTEM on 09-22-2023 Prolactin 14.07 ng/mL Normal 3.34 - 26.72 ng/mL Remisol Chem TSH Qn 1.94 m[IU]/L Normal 0.34 - 5.60 mcIU/mL Remisol Chem Consent for Treatmenton Consent for Treatment [id number] Normal [facility] Physician Orderon 09-22-2023 Physician Order [id number]#[id number] Normal [facility] Prolactinon 09-22-2023 Prolactin 14.07 ng/mL Normal 3.34-26.72 [facility] Comment on above: Performed By: #### 2 [id number], [id number], [id number], [id number], [id number] #### [facility] [address] [place] [address] TSHon 09-22-2023 TSH Qn 1.94 m[IU]/L Normal 0.34-5.60 [facility] Comment on above: Performed By: #### 2 [id number], [id number], [id number], [id number], [id number] #### [facility] [address] [place] [address] Progesteroneon 08-27-2023 Progesterone [Mass/Vol] 5.4 ng/mL Normal [facility] Comment on above: Result Comment: Ref Values Male <0.3- 1.2 Follicular Phase <0.3- 1.4 Luteal Phase 3.3-25.6 Mid-Luteal Phase 4.4-28.0 Postmenopausal <0.3- 0.7 Females: 1st Trimester 11.2- 90.0 2nd Trimester 25.6- 89.4 3RD Trimester 48.4-422.5 Patients receiving DHEA-S supplements may show false elevation of progesterone for results near 1.0 ng/mL. Contact laboratory at [phone] if alternative testing is needed. Performed By: #### 2 839-9 ###Sridhar Alves ([id number]) [facility] ([facility]) [address] [place], [place] [id number] Bacteria identifiedon 2022 Bacteria identified Cx Nom (U) Test: Urine Culture Specimen Source: Clean Catch/Voided Specimen Type: Urine Specimen Date: 07/13/2023 4:11 PM Result Date: 07/16/2023 11:09 AM Result Status: Final result Abnormal: No Resulting Lab: [facility] [address] [place] [address] CULTURE No significant growth Normal [facility] Comment on above: Performed By: #### 6 30-4 #### CORBIN Alves ([id number]) [facility] ([facility]) [address] [place] [address] Bacteria identifiedon 2022 Bacteria identified Cx Nom (U) Test: Urine Culture Specimen Source: Clean Catch/Voided Specimen Type: Urine Specimen Date: 06/19/2023 5:42 PM Result Date: 06/21/2023 8:49 AM Result Status: Final result Abnormal: No Resulting Lab: [facility] [address] [place] [address] CULTURE Normal genitourinary ivy Normal [facility] Comment on above: Performed By: #### 6 30-4 #### CORBIN Alves ([id number]) [facility] ([facility]) [address] [place] [address] HCG ( test) IA.rapi d Ql (U)on 06-19-2023 HCG ( test) Ql (U) Negative Normal NEGATIVE [facility] Comment on above: Performed By: #### 8 0384-1 #### KELBY ROSS ([id number]) [facility] ([facility]) [address] [place] [address] HCG ( test) IA.rapi d Ql (U)Ordered By: Rob Burnham on 06-19-2023 HCG ( test) Ql (U) Negative NEGATIVE [facility] Interpretation and review of laboratory results Normal [facility] No Panel Informationon 06-19 Interpretation and review of laboratory results Abnormal [facility] Urinalysis complete W Reflex Culture panel (U)on 06-19-2023 Appearance (U) Hazy Normal Clear [facility] Comment on above: Performed By: #### 5 8077-9 #### KELBY ROSS ([id number]) [facility] ([facility]) [address] [place] [address] Bilirubin (U) [Mass/Vol] Negative Normal NEGATIVE [facility] Comment on above: Performed By: #### 5 8077-9 #### KELBY ROSS ([id number]) [facility] ([facility]) [address] [place] [address] Color (U) Yellow Normal Straw, Yellow [facility] Comment on above: Performed By: #### 5 8077-9 #### KELBY ROSS ([id number]) [facility] ([facility]) [address] [place] [address] Glucose Auto test strip (U) [Mass/Vol] Negative Normal NEGATIVE [facility] Comment on above: Performed By: #### 5 8077-9 #### KELBY ROSS ([id number]) [facility] ([facility]) [address] [place] [address] Ketones (U) [Mass/Vol] 5 (TRACE) Abnormal NEGATIVE [facility] Comment on above: Performed By: #### 5 8077-9 #### KELBY ROSS ([id number]) [facility] ([facility]) [address] [place] [address] Leukocyte esterase Auto test strip Ql (U) TRACE Abnormal NEGATIVE [facility] Comment on above: Performed By: #### 5 8077-9 #### KELBY ROSS ([id number]) [facility] ([facility]) [address] [place] [address] Nitrite Auto test strip Ql (U) Negative Normal NEGATIVE [facility] Comment on above: Performed By: #### 5 8077-9 #### KELBY ROSS ([id number]) [facility] ([facility]) [address] [place] [address] pH (U) 5.0 [pH] Normal 5.0, 5.5, 6.0, 6.5, 7.0, 7.5, 8.0 [facility] Comment on above: Performed By: #### 5 8077-9 #### KELBY ROSS ([id number]) [facility] ([facility]) [address] [place] [address] Protein (U) [Mass/Vol] 100 (2+) Normal NEGATIVE [facility] Comment on above: Performed By: #### 5 8077-9 #### KELBY ROSS ([id number]) [facility] ([facility]) [address] [place] [address] RBC (U) [#/Vol] Negative Normal NEGATIVE [facility] Comment on above: Performed By: #### 5 8077-9 #### KELBY ROSS ([id number]) [facility] ([facility]) [address] [place] [address] Specific gravity (U) [Rel density] 1.031 Normal 1.005-1.035 [facility] Comment on above: Performed By: #### 5 8077-9 #### KELBY ROSS ([id number]) [facility] ([facility]) [address] [place] [address] Urobilinogen (U) [Mass/Vol] 2.0 mg/dL Normal <2.0 [facility] Comment on above: Result Comment: Due to a manufacturing issue, low positive urobilinogen results may be falsely positive. Correlate with urine bilirubin and additional clinical/laboratory findings to assess the risk of hemolytic anemia or liver disease. If clinically indicated, repeat testing with an alternate method is available by contacting the laboratory within 24 hours. Some pigments and medications may cause a false positive urobilinogen. Performed By: #### 5 8077-9 #### KELBY ROSS ([id number]) [facility] ([facility]) [address] [place] [address] Appearance (U) Hazy Abnormal Clear [facility] Bilirubin (U) [Mass/Vol] Negative NEGATIVE [facility] Color (U) Yellow Straw, Yellow [facility] Glucose Auto test strip (U) [Mass/Vol] Negative NEGATIVE mg/dL [facility] Ketones (U) [Mass/Vol] 5 (TRACE) Abnormal NEGATIVE mg/dL [facility] Leukocyte esterase Auto test strip Ql (U) TRACE Abnormal NEGATIVE [facility] Nitrite Auto test strip Ql (U) Negative NEGATIVE [facility] pH (U) 5.0 [pH] 5.0, 5.5, 6.0, 6.5, 7.0, 7.5, 8.0 [facility] Protein (U) [Mass/Vol] 100 (2+) Abnormal NEGATIVE mg/dL [facility] RBC (U) [#/Vol] Negative NEGATIVE [facility] Specific gravity (U) [Rel density] 1.031 1.005 - 1.035 [facility] Urobilinogen (U) [Mass/Vol] 2.0 mg/dL Abnormal NINF - 2.0 mg/dL [facility] Comment on above: Due to a manufacturi ng issue, low positive urobilinogen results may be falsely positive. Correlate with urine bilirubin and additional clinical/laboratory findings to assess the risk of hemolytic anemia or liver disease. If clinically indicated, repeat testing with an alternate method is available by contacting the laboratory within 24 hours. Some pigments and medications may cause a false positive urobilinogen. Urinalysis microscopic panel Auto Ql (U)on 06-19-2023 Epithelial cells.squamous Auto (Urine sed) [#/Area] 10-25 (FEW) Normal Reference range not established. [facility] Comment on above: Performed By: #### 5 3315-8 #### KELBY ROSS ([id number]) [facility] ([facility]) [address] [place], [place] [address] Mucus Auto (Urine sed) [#/Area] 2+ /LPF Normal Reference range not established. [facility] Comment on above: Performed By: #### 5 4535-8 #### KELBY ROSS ([id number]) [facility] ([facility]) [address] [place] [address] RBC Auto (Urine sed) [#/Area] 3-5 Normal NONE, 1-2, 3-5 [facility] Comment on above: Performed By: #### 5 3315-8 #### KELBY ROSS ([id number]) [facility] ([facility]) [address] [place] [address] WBC Auto (Urine sed) [#/Area] 11-20 Abnormal 1-5, NONE [facility] Comment on above: Performed By: #### 5 3315-8 #### KELBY ROSS ([id number]) [facility] ([facility]) [address] [place] [address] Epithelial cells.squamous Auto (Urine sed) [#/Area] 10-25 (FEW) Reference range not established. /HPF [facility] Mucus Auto (Urine sed) [#/Area] 2+ Reference range not established. /LPF [facility] RBC Auto (Urine sed) [#/Area] 3-5 NONE, 1-2, 3-5 /HPF [facility] WBC Auto (Urine sed) [#/Area] 11-20 Abnormal 1-5, NONE /HPF [facility] Bacteria identifiedon 2022 Bacteria identified Cx Nom (U) Test: Urine Culture Specimen Source: Clean Catch/Voided Specimen Type: Urine Specimen Date: 05/18/2023 10:46 AM Result Date: 05/20/2023 8:13 AM Result Status: Final result Abnormal: No Resulting Lab: [facility] [address] [place] [address] CULTURE No significant growth Normal [facility] Comment on above: Performed By: #### 6 30-4 #### CORBIN Alves ([id number]) [facility] ([facility]) [address] [place] [address] POCT UA Automated manually r esultedon 05-18-2023 Appearance (U) Hazy Abnormal Clear [facility] Work Phone: Glucose Test strip (U) [Mass/Vol] Negative NEGATIVE mg/dl [facility] Work Phone: [phone] Hemoglobin Ql (U) MODERATE (2+) Abnormal NEGATIVE [facility] Work [facility]: [phone] Interpretation and review of laboratory results Abnormal [facility] Work Phone: Leukocyte esterase Test strip Ql (U) Negative NEGATIVE [facility] Work Phone: Nitrite Ql (U) Negative NEGATIVE [facility] Work Phone: pH (U) 7.0 [pH] No Reference Range Established [facility] Work Phone: )[phone] POC Bilirubin, Urine Negative NEGATIVE [facility] Work Phone: )[phone] POC Color, Urine Yellow Straw, Yellow, Light-Yellow [facility] Work Phone: [phone] POC Ketones, Urine 15 (1+) Abnormal NEGATIVE mg/dl [facility] Work Phone: )[phone] POC Protein, Urine 30 (1+) NEGATIVE, 30 (1+) mg/dl [facility] Work Phone: [phone] POC Specific [place], Urine 1.025 1.005 - 1.035 [facility] Work Phone: [phone] POC Urobilinogen, Urine 0.2 0.2, 1.0 EU/DL [facility] Work Phone: [phone] [facility] Work Phone: [phone] CBC AND DIFFERENTIALon 04-14 % AUTOMATED IMMATURE GRAN 0.2 % Normal 0.0 - 0.9 [facility] Comment on above: Result Comment: Tammie ture Granulocyte Count (IG) includes promyelocytes, myelocytes and metamyelocytes but does not include bands. Percent differential counts (%) should be interpreted in the context of the absolute cell counts (cells/L). Performed By: #### C BCDF #### [place] [address] Basophils (Bld) [#/Vol] 0.02 10*3/uL Normal 0.00 - 0.10 [facility] Comment on above: Performed By: #### C BCDF #### [address] [address] Basophils/100 WBC (Bld) 0.5 % Normal 0.0 - 2.0 [facility] Comment on above: Performed By: #### C BCDF #### [address] [address] Eosinophils (Bld) [#/Vol] 0.09 10*3/uL Normal 0.00 - 0.70 [facility] Comment on above: Performed By: #### C BCDF #### [address] [address] Eosinophils/100 WBC (Bld) 2.2 % Normal 0.0 - 6.0 [facility] Comment on above: Performed By: #### C BCDF #### [address] [address] Erythrocyte distribution width (RBC) [Ratio] 11.6 % Normal 11.5 - 14.5 [facility] Comment on above: Performed By: #### C BCDF #### [address] [address] Hematocrit (Bld) [Volume fraction] 43.6 % Normal 36.0 - 46.0 [facility] Comment on above: Performed By: #### C BCDF #### [address] [address] Hemoglobin (Bld) [Mass/Vol] 14.3 g/dL Normal 12.0 - 16.0 [facility] Comment on above: Performed By: #### C BCDF #### [address] [address] Lymphocytes (Bld) [#/Vol] 1.48 10*3/uL Normal 1.20 - 4.80 [facility] Comment on above: Performed By: #### C BCDF #### [address] [address] Lymphocytes/100 WBC (Bld) 36.5 % Normal 13.0 - 44.0 [facility] Comment on above: Performed By: #### C BCDF #### [address] [address] MCHC (RBC) [Mass/Vol] 32.8 g/dL Normal 32.0 - 36.0 [facility] Comment on above: Performed By: #### C BCDF #### [address] [address] MCV (RBC) [Entitic vol] 90 fL Normal 80 - 100 [facility] Comment on above: Performed By: #### C BCDF #### [address] [address] Monocytes (Bld) [#/Vol] 0.30 10*3/uL Normal 0.10 - 1.00 [facility] Comment on above: Performed By: #### C BCDF #### [address] [address] Monocytes/100 WBC (Bld) 7.4 % Normal 2.0 - 10.0 [facility] Comment on above: Performed By: #### C BCDF #### [address] [address] Neutrophils (Bld) [#/Vol] 2.16 10*3/uL Normal 1.20 - 7.70 [facility] Comment on above: Result Comment: Perc ent differential counts (%) should be interpreted in the context of the absolute cell counts (cells/L). Performed By: #### C BCDF #### [address] [address] Neutrophils/100 WBC (Bld) 53.2 % Normal 40.0 - 80.0 [facility] Comment on above: Performed By: #### C BCDF #### [address] [address] Platelets (Bld) [#/Vol] 267 10*3/uL Normal 150 - 450 [facility] Comment on above: Performed By: #### C BCDF #### [address] [address] RBC 4.84 x10E12/L Normal 4.00 - 5.20 [facility] Comment on above: Performed By: #### C BCDF #### [address] [address] WBC (Bld) [#/Vol] 4.1 10*3/uL Low 4.4 - 11.3 [facility] Comment on above: Performed By: #### C BCDF #### [place] [id number] COMPREHENSIVE PANELon 2022 Albumin [Mass/Vol] 4.4 g/dL Normal 3.4 - 5.0 [facility] Comment on above: Performed By: #### C MP #### [address] [address] ALP [Catalytic activity/Vol] 42 U/L Normal 33 - 110 [facility] Comment on above: Performed By: #### C MP #### [address] [address] ALT [Catalytic activity/Vol] 20 U/L Normal 7 - 45 [facility] Comment on above: Result Comment: Glory ents treated with Sulfasalazine may generate falsely decreased results for ALT. Performed By: #### C MP #### [address] [address] Anion gap [Moles/Vol] 13 mmol/L Normal 10 - 20 [facility] Comment on above: Performed By: #### C MP #### [address] [address] AST [Catalytic activity/Vol] 25 U/L Normal 9 - 39 [facility] Comment on above: Performed By: #### C MP #### [address] [address] Bilirubin [Mass/Vol] 0.6 mg/dL Normal 0.0 - 1.2 [facility] Comment on above: Performed By: #### C MP #### [address] [address] Calcium [Mass/Vol] 9.5 mg/dL Normal 8.6 - 10.3 [facility] Comment on above: Performed By: #### C MP #### [address] [address] Chloride [Moles/Vol] 106 mmol/L Normal 98 - 107 [facility] Comment on above: Performed By: #### C MP #### [address] [address] Creatinine [Mass/Vol] 0.82 mg/dL Normal 0.50 - 1.05 [facility] Comment on above: Performed By: #### C MP #### [address] [address] eGFR FEMALE >90 Normal >90 [facility] Comment on above: Result Comment: CALC ULATIONS OF ESTIMATED GFR ARE PERFORMED USING THE 2020 CKD-EPI STUDY REFIT EQUATION WITHOUT THE RACE VARIABLE FOR THE IDMS-TRACEABLE CREATININE METHODS. https://jasn.asnjournals.org/content//ASN.24305112 88 Performed By: #### C MP #### [address] [address] Glucose [Mass/Vol] 80 mg/dL Normal 74 - 99 [facility] Comment on above: Performed By: #### C MP #### [address] [address] HCO3 (Bld) [Moles/Vol] 25 mmol/L Normal 21 - 32 [facility] Comment on above: Performed By: #### C MP #### [address] [address] Potassium [Moles/Vol] 3.8 mmol/L Normal 3.5 - 5.3 [facility] Comment on above: Performed By: #### C MP #### [address] [address] Protein [Mass/Vol] 7.0 g/dL Normal 6.4 - 8.2 [facility] Comment on above: Performed By: #### C MP #### [address] [address] Sodium [Moles/Vol] 140 mmol/L Normal 136 - 145 [facility] Comment on above: Performed By: #### C MP #### [address] [address] Urea nitrogen [Mass/Vol] 5 mg/dL Low [facility] Comment on above: Performed By: #### C MP #### [address] [address] HEMOGLOBIN A1Con 04-14-2023 Glucose [Mass/Vol] 88 mg/dL Normal [facility] Comment on above: Performed By: #### H BA1E #### [address] [address] HbA1c (Bld) [Mass fraction] 4.7 % Normal [facility] Comment on above: Result Comment: Diag nosis of Diabetes-Adults Non-Diabetic: < or = 5.6% Increased risk for developing diabetes: 5.7-6.4% Diagnostic of diabetes: > or = 6.5% . Monitoring of Diabetes Age (y) Therapeutic Goal (%) Adults: >18 <7.0 Pediatrics: 13-18 <7.5 7-12 <8.0 0- 6 7.5-8.5 [employer] [employer]. Diabetes Care 33(S1), Jul 2009. Performed By: #### H BA1E #### [address] [address] LIPID PANEL (CORONARY RISK 2 )on 04-14-2023 Cholesterol [Mass/Vol] 159 mg/dL Normal 0 - 199 [facility] Comment on above: Result Comment: . AGE DESIRABLE BORDERLINE HIGH HIGH 0-19 Y 0 - 169 170 - 199 >/= 200 20-24 Y 0 - 189 190 - 224 >/= 225 >24 Y 0 - 199 200 - 239 >/= 240 All ranges are based on fasting samples. Specific therapeutic targets will vary based on patient-specific cardiac risk. . Pediatric guidelines reference:Pediatrics 2011, 128(S5). Adult guidelines reference: NCEP ATPIII Guidelines, ALDO 2001, 258:2486-97 . Venipuncture immediately after or during the administration of Metamizole may lead to falsely low results. Testing should be performed immediately prior to Metamizole dosing. Performed By: #### L IPID #### [address] [address] Cholesterol in HDL [Mass/Vol] 56.0 mg/dL Normal [facility] Comment on above: Result Comment: . AGE VERY LOW LOW NORMAL HIGH 0-19 Y < 35 < 40 40-45 ---- 20-24 Y ---- < 40 >45 ---- >24 Y ---- < 40 40-60 >60 . Performed By: #### L IPID #### [address] [address] Cholesterol in LDL [Mass/Vol] 87 mg/dL Normal 0 - 119 [facility] Comment on above: Result Comment: . NEAR BORD AGE DESIRABLE OPTIMAL HIGH HIGH VERY HIGH 0-19 Y 0 - 109 --- 110-129 >/= 130 ---- 20-24 Y 0 - 119 --- 120-159 >/= 160 ---- >24 Y 0 - 99 100-129 130-159 160-189 >/=190 . Performed By: #### L IPID #### [address] [address] Cholesterol in VLDL [Mass/Vol] 16 mg/dL Normal 0 - 40 [facility] Comment on above: Performed By: #### L IPID #### [address] [address] Cholesterol.total/C holesterol in HDL [Mass ratio] 2.8 {ratio} Normal [facility] Comment on above: Result Comment: REF VALUES DESIRABLE < 3.4 HIGH RISK > 5.0 Performed By: #### L IPID #### [address] [address] NON-HDL CHOLESTEROL 103 mg/dL Normal 0 - 149 [facility] Comment on above: Result Comment: AGE DESIRABLE BORDERLINE HIGH HIGH VERY HIGH 0-19 Y 0 - 119 120 - 144 >/= 145 >/= 160 20-24 Y 0 - 149 150 - 189 >/= 190 ---- >24 Y 30 MG/DL ABOVE LDL CHOLESTEROL GOAL . Performed By: #### L IPID #### [address] [address] Triglyceride [Mass/Vol] 79 mg/dL Normal 0 - 149 [facility] Comment on above: Result Comment: . AGE DESIRABLE BORDERLINE HIGH HIGH VERY HIGH 0 D-90 D 19 - 174 ---- ---- ---- 91 D- 9 Y 0 - 74 75 - 99 >/= 100 ---- 10-19 Y 0 - 89 90 - 129 >/= 130 ---- 20-24 Y 0 - 114 115 - 149 >/= 150 ---- >24 Y 0 - 149 150 - 199 200- 499 >/= 500 . Venipuncture immediately after or during the administration of Metamizole may lead to falsely low results. Testing should be performed immediately prior to Metamizole dosing. Performed By: #### L IPID #### [address] [address] TSH WITH REFLEX TO FREE T4 I F ABNORMALon 04-14-2023 TSH Qn 2.73 m[IU]/L Normal 0.44 - 3.98 [facility] Comment on above: Result Comment: TSH testing is performed using different testing methodology at [facility] than at other [facility]. Direct result comparisons should only be made within the same method. Performed By: #### T HYDS #### [address] [address] CBC AND DIFFERENTIALon 04-13 % AUTOMATED IMMATURE GRAN 0.2 % Normal 0.0 - 0.9 [facility] Comment on above: Result Comment: Tammie ture Granulocyte Count (IG) includes promyelocytes, myelocytes and metamyelocytes but does not include bands. Percent differential counts (%) should be interpreted in the context of the absolute cell counts (cells/L). Performed By: #### C BCDF ####[address] [address] Basophils (Bld) [#/Vol] 0.01 10*3/uL Normal 0.00 - 0.10 [facility] Comment on above: Performed By: #### C BCDF ####[address] [address] Basophils/100 WBC (Bld) 0.2 % Normal 0.0 - 2.0 [facility] Comment on above: Performed By: #### C BCDF ####[address] [address] Eosinophils (Bld) [#/Vol] 0.06 10*3/uL Normal 0.00 - 0.70 [facility] Comment on above: Performed By: #### C BCDF ####[address] [address] Eosinophils/100 WBC (Bld) 1.2 % Normal 0.0 - 6.0 [facility] Comment on above: Performed By: #### C BCDF ####[address] [address] Erythrocyte distribution width (RBC) [Ratio] 11.4 % Low 11.5 - 14.5 [facility] Comment on above: Performed By: #### C BCDF ####[address] [address] Hematocrit (Bld) [Volume fraction] 39.3 % Normal 36.0 - 46.0 [facility] Comment on above: Performed By: #### C BCDF ####[address] [address] Hemoglobin (Bld) [Mass/Vol] 13.4 g/dL Normal 12.0 - 16.0 [facility] Comment on above: Performed By: #### C BCDF ####[address] [address] Lymphocytes (Bld) [#/Vol] 1.39 10*3/uL Normal 1.20 - 4.80 [facility] Comment on above: Performed By: #### C BCDF ####[address] [address] Lymphocytes/100 WBC (Bld) 27.9 % Normal 13.0 - 44.0 [facility] Comment on above: Performed By: #### C BCDF ####[address] [address] MCHC (RBC) [Mass/Vol] 34.1 g/dL Normal 32.0 - 36.0 [facility] Comment on above: Performed By: #### C BCDF ####[address] [address] MCV (RBC) [Entitic vol] 88 fL Normal 80 - 100 [facility] Comment on above: Performed By: #### C BCDF ####[address] [address] Monocytes (Bld) [#/Vol] 0.49 10*3/uL Normal 0.10 - 1.00 [facility] Comment on above: Performed By: #### C BCDF ####[address] [address] Monocytes/100 WBC (Bld) 9.8 % Normal 2.0 - 10.0 [facility] Comment on above: Performed By: #### C BCDF ####[address] [address] Neutrophils (Bld) [#/Vol] 3.03 10*3/uL Normal 1.20 - 7.70 [facility] Comment on above: Result Comment: Perc ent differential counts (%) should be interpreted in the context of the absolute cell counts (cells/L). Performed By: #### C BCDF ####[address] [address] Neutrophils/100 WBC (Bld) 60.7 % Normal 40.0 - 80.0 [facility] Comment on above: Performed By: #### C BCDF ####[address] [address] Platelets (Bld) [#/Vol] 275 10*3/uL Normal 150 - 450 [facility] Comment on above: Performed By: #### C BCDF ####[address] [address] RBC 4.45 x10E12/L Normal 4.00 - 5.20 [facility] Comment on above: Performed By: #### C BCDF ####[address] [address] WBC (Bld) [#/Vol] 5.0 10*3/uL Normal 4.4 - 11.3 [facility] Comment on above: Performed By: #### C BCDF ####[place] [id number] COMPREHENSIVE PANELon 2022 Albumin [Mass/Vol] 4.2 g/dL Normal 3.4 - 5.0 [facility] Comment on above: Performed By: #### C MP ####[place] [address] ALP [Catalytic activity/Vol] 40 U/L Normal 33 - 110 [facility] Comment on above: Performed By: #### C MP ####[place] [id number] ALT [Catalytic activity/Vol] 12 U/L Normal 7 - 45 [facility] Comment on above: Result Comment: Glory ents treated with Sulfasalazine may generate falsely decreased results for ALT. Performed By: #### C MP ####[place] [address] Anion gap [Moles/Vol] 11 mmol/L Normal 10 - 20 [facility] Comment on above: Performed By: #### C MP ####[address] [address] AST [Catalytic activity/Vol] 17 U/L Normal 9 - 39 [facility] Comment on above: Performed By: #### C MP ####[address] [address] Bilirubin [Mass/Vol] 0.5 mg/dL Normal 0.0 - 1.2 [facility] Comment on above: Performed By: #### C MP ####[address] [address] Calcium [Mass/Vol] 8.9 mg/dL Normal 8.6 - 10.3 [facility] Comment on above: Performed By: #### C MP ####[address] [address] Chloride [Moles/Vol] 106 mmol/L Normal 98 - 107 [facility] Comment on above: Performed By: #### C MP ####[address] [address] Creatinine [Mass/Vol] 0.85 mg/dL Normal 0.50 - 1.05 [facility] Comment on above: Performed By: #### C MP ####[address] [address] eGFR FEMALE >90 Normal >90 [facility] Comment on above: Result Comment: CALC ULATIONS OF ESTIMATED GFR ARE PERFORMED USING THE 2020 CKD-EPI STUDY REFIT EQUATION WITHOUT THE RACE VARIABLE FOR THE IDMS-TRACEABLE CREATININE METHODS. https://jasn.asnjournals.org/content/early//ASN.09790497 88 Performed By: #### C MP ####[address] [address] Glucose [Mass/Vol] 87 mg/dL Normal 74 - 99 [facility] Comment on above: Performed By: #### C MP ####[address] [address] HCO3 (Bld) [Moles/Vol] 26 mmol/L Normal 21 - 32 [facility] Comment on above: Performed By: #### C MP ####[address] [address] Potassium [Moles/Vol] 3.4 mmol/L Low 3.5 - 5.3 [facility] Comment on above: Performed By: #### C MP ####[address] [address] Protein [Mass/Vol] 6.8 g/dL Normal 6.4 - 8.2 [facility] Comment on above: Performed By: #### C MP ####[address] [address] Sodium [Moles/Vol] 140 mmol/L Normal 136 - 145 [facility] Comment on above: Performed By: #### C MP ####[address] [address] Urea nitrogen [Mass/Vol] 6 mg/dL Normal 6 - 23 [facility] Comment on above: Performed By: #### C MP ####[facility] [place] [address] HCG,URINEon 04-13-2023 Beta HCG ( test) Ql (U) Negative Normal Negative [facility] Comment on above: Performed By: #### H CGU ####[id number] [place] [address] Provider Note - ED v3on 03-24 Provider Note - ED v3 Provider Note: Results/Vital Signs: Pediatric Clinical Scoring (BRYAN) is no recent BRYAN charted on this account Chart Review: ED NOTES ED NOTES: Limitations to History: None HPI: 22-year-old female presents with left back and flank pain. Patient was recently discharged after having pyelonephritis with acute renal insufficiency. States she is feeling improved but continues to have pain. Making urine. Denies any fever, chills, nausea, vomiting. Denies any vaginal bleeding or discharge. Additional History Obtained from: Significant other at the bedside. ----- -------- Physical Exam: VS: As documented in the triage note and EMR flowsheet from this visit were reviewed. Appearance: Alert. cooperative, in no acute distress. Skin: Intact, dry skin, no lesions, rash, petechiae or purpura. HENT: Normocephalic, atraumatic. Nares patent. No intraoral lesions. Neck: Supple, without meningismus. Trachea at midline. No lymphadenopathy. Pulmonary: Clear bilaterally with good chest wall excursion. No rales, rhonchi or wheezing. No accessory muscle use or stridor. Cardiac: Regular rate and rhythm, no rubs, murmurs, or gallops. No JVD, Carotids without bruits. Abdomen: Abdomen is soft, nontender, and nondistended. No palpable organomegaly. No rebound or guarding. No CVA tenderness. Nonsurgical abdomen Genitourinary: Exam deferred. Musculoskeletal: Full range of motion. Pulses full and equal. No cyanosis, clubbing, or edema. Psychiatric: Appropriate mood and affect. HISTORY OF PRESENTING ILLNESS LUZ is a 22 year old Female and was seen by me at 13-Apr-2023 12:57 for a chief complaint of back pain (Amb to Ed with low back pain. States that she was here a couple days ago with UTI and low kidney function. She is concerned that she is not better. Is taking oral ATB, but unsure of the name.)(1). Triage Information: Most recent Vital Sign Value Date Temp (F): 98.2 04-13-2023 13:13 Temp (C): 36.7 04-13-2023 13:13 Heart Rate (beats/min): 70 04-13-2023 13:13 Respirations (breaths/min): 16 04-13-2023 13:13 SpO2 (%): 99 04-13-2023 13:13 BP Systolic (mm Hg): 121 04-13-2023 13:13 BP Diastolic (mm Hg): 74 04-13-2023 13:13 PAST MEDICAL HISTORY ALLERGIES/INTOLERANCES: Allergy Allergen: clonidine Type: Drug Reaction: Hives/Urticaria HEALTH HISTORY: No documented data. OUTPATIENT MEDICATIONS: Home Medications Review Status for Reconciliation: N/A Med Status: Patient Currently Takes Medications Drug Name: omeprazole 20 mg oral delayed release capsule Instructions: 1 cap(s) orally once a day Drug Name: cefdinir 300 mg oral capsule Instructions: 1 cap(s) orally 2 times a day SIGNIFICANT EVENTS: Past Medical History Description:[place] teeth extraction CRITICAL CARE RESULTS: Recent Lab Results: I have reviewed these laboratory results: Complete Blood Count + Differential 13-Apr-2023 13:48:00 ResultValue White Blood Cell Count 5.0 Red Blood Cell Count 4.45 HGB 13.4 HCT 39.3 MCV 88 MCHC 34.1 PLT 275 RDW-CV 11.4 L Neutrophil % 60.7 Immature Granulocytes % 0.2 Lymphocyte % 27.9 Monocyte % 9.8 Eosinophil % 1.2 Basophil % 0.2 Neutrophil Count 3.03 Lymphocyte Count 1.39 Monocyte Count 0.49 Eosinophil Count 0.06 Basophil Count 0.01 Comprehensive Metabolic Panel 13-Apr-2023 13:48:00 ResultValue Glucose, Serum 87 NA 140 K 3.4 L CL 106 Bicarbonate, Serum 26 Anion Gap, Serum 11 BUN 6 CREAT 0.85 GFR Female >90 Calcium, Serum 8.9 ALB 4.2 ALKP 40 T Pro 6.8 T Bili 0.5 Alanine Aminotransferase, Serum 12 Aspartate Transaminase, Serum 17 Urine Test 13-Apr-2023 13:47:00 ResultValue HCG, Urine NEGATIVE Urinalysis 13-Apr-2023 13:47:00 ResultValue Color, Urine Yellow Reference Range: STRAW,YELLOW Appearance, Urine CLEAR Specific [place], Urine 1.010 pH, Urine 7.0 Protein, Urine NEGATIVE Glucose, Urine NEGATIVE Blood, Urine NEGATIVE Ketones, Urine NEGATIVE Bilirubin, Urine NEGATIVE Urobilinogen, Urine <2.0 Nitrite, Urine Negative Leukocyte Esterase, Urine NEGATIVE VITAL SIGNS: T PRBP SpO2O2(LPM) %FiO2 Method 13-Apr-2023 13:54:[id number] 94 13-Apr-2023 13:13:[id number]/74 99 room air, no respiratory support 13-Apr-2023 12:55:[id number]/74 99 room air, no respiratory support [facility] MDM/ED COURSE: Medical Decision Making: Patient appears well and nontoxic. Vital signs within normal limits. Lab work otherwise unremarkable. Urine without acute infection. Patient given 1 L normal saline. Advised on [id number] Motrin and Tylenol. Asked to follow-up with primary care. Stable at time of discharge. Differential Diagnoses Considered: Musculoskeletal pain, UTI, kidney stone Escalation of Care: (more content not included)... Normal [facility] Triage - EDon 04-13-2023 Triage - ED Quick Triage: Are You no Have You Given In The Last 6 Weeksno Are You Currently Breastfeedingno The patient and/or guardian verbally acknowledges placement for services into the following (when Urgent Care Service hours are operating):emergency department Chart Review: ARRIVAL INFORMATION Mode of Arrival: private vehicle CHIEF COMPLAINT LUZ HINOJOSA is a Female patient with a chief complaint of back pain (Amb to Ed with low back pain. States that she was here a couple days ago with UTI and low kidney function. She is concerned that she is not better. Is taking oral ATB, but unsure of the name.). Triage Date/Time: 13-Apr-2023 12:55 CECE: 4 Pain Rating (0-10): 4 = Moderate Pain location: low back Vital Signs: Temperature: 98.2F ( 36.7C) taken temporal Blood Pressure: 121/74 Mean: Heart Rate: 70 Respiratory Rate: 16 Pulse Oximetry: 99% on room air, no respiratory support. Weight: 121.2 pounds. Calculated 55.0 kg. Justus Coma Scale: Best Eye Response: (E4) spontaneous Best Motor Response: (M6) obeys commands Best Verbal Response: (V5) oriented Justus Score: 15 Cough lasting greater than 3 weeks: no Allergies: no Last menstrual period: 02-Apr-2023 Patient has homicidal thoughts: no Symptoms Are Negative For: bruising, difficulty bending, difficulty walking, flank pain, headache, hematuria, muscle cramps, neck pain, numbness and tingling. Mechanism Of Pain/Injury: no known injury Risk Screens Suicide Risk Screen In the Past Month: Have you wished you were or wished you could go to sleep and not wake up no In the Past Month: Have you had any actual thoughts of killing yourself no In Your Lifetime: Have you ever done anything, started to do anything, or prepared to do anything to end your life no Houser Fall Scale Screening Has the patient fallen before (or is the patient in the ED as a result of a fall) has not had a fall Does the patient have an impaired gait does not have impaired gait Is the patient cognitively impaired not cognitively impaired Interventions: Houser Fall Interventions: LOW INTERVENTIONS: *patient oriented to surroundings and call system, * patient/family falls education completed and documented, *patients fall status communicated during bedside handoff, *whiteboard updated, *mode of toileting discussed with patient, *bed in low position with brakes locked, *call light in reach, * non-skid footwear TRAVEL HISTORY Travel History Coronavirus Screening: no exposure or symptoms Travel Exposure History: NO travel to International locations in the past 30 days PAIN Pain Scale Used: RODRIGUEZ Pain Rating (0-10): 4 = Moderate Past Medical History: Past Medical History Reviewedyes Electronic Signatures: Imelda Ramirez (RN) (Signed 13-Apr-2023 13:15) Entered: Risk Screens, Pain, Travel History, Chart Review, Scores, Past Medical History Authored: Quick Triage, Risk Screens, Pain, Travel History, Chart Review, Scores, Past Medical History Last Updated: 13-Apr-2023 13:15 by Imelda Ramirez (RN) Normal [facility] URINALYSISon 04-13-2023 Appearance (U) CLEAR Normal CLEAR [facility] Comment on above: Performed By: #### U A ####[place] [address] Bilirubin Ql (U) Negative Normal NEGATIVE [facility] Comment on above: Performed By: #### U A ####[place] [address] Color (U) Yellow Normal STRAW,YELLOW [facility] Comment on above: Performed By: #### U A ####[place] [address] Glucose Ql (U) Negative Normal NEGATIVE [facility] Comment on above: Performed By: #### U A ####[place] [address] Hemoglobin Ql (U) Negative Normal NEGATIVE [facility] Comment on above: Performed By: #### U A ####[place] [address] Ketones Ql (U) Negative Normal NEGATIVE [facility] Comment on above: Performed By: #### U A ####[place] [address] Leukocyte esterase Test strip Ql (U) Negative Normal NEGATIVE [facility] Comment on above: Performed By: #### U A ####[place] [address] Nitrite Ql (U) Negative Normal NEGATIVE [facility] Comment on above: Performed By: #### U A ####[place] [address] pH (U) 7.0 [pH] Normal 5.0 - 8.0 [facility] Comment on above: Performed By: #### U A ####[address] [address] Protein Ql (U) Negative Normal NEGATIVE [facility] Comment on above: Performed By: #### U A ####[address] [address] Specific gravity (U) [Rel density] 1.010 Normal 1.005 - 1.035 [facility] Comment on above: Performed By: #### U A ####[address] [address] Urobilinogen (U) [Mass/Vol] mg/dL Normal 0.0 - 1.9 [facility] Comment on above: Performed By: #### U A ####[address] [address] BASIC METABOLIC PANELon 03-24 Creatinine [Mass/Vol] 1.33 mg/dL High 0.50 - 1.05 [facility] Comment on above: Result Comment: Conf irmed by repeat analysis Performed By: #### B MP ####[address] [address] GFR/1.73 sq M.predicted among non-blacks MDRD (S/P/Bld) [Vol rate/Area] 58 mL/min/{1.73_m2} Abnormal >90 [facility] Comment on above: Result Comment: CALC ULATIONS OF ESTIMATED GFR ARE PERFORMED USING THE 2020 CKD-EPI STUDY REFIT EQUATION WITHOUT THE RACE VARIABLE FOR THE IDMS-TRACEABLE CREATININE METHODS. https://jasn.asnjournals.org/content/early//ASN.50676653 88 Performed By: #### B MP ####[address] [address] Anion gap [Moles/Vol] 8 mmol/L Low 10 - 20 [facility] Comment on above: Performed By: #### B MP ####[address] [address] Calcium [Mass/Vol] 8.0 mg/dL Low 8.6 - 10.3 [facility] Comment on above: Performed By: #### B MP ####[address] [address] Chloride [Moles/Vol] 115 mmol/L High 98 - 107 [facility] Comment on above: Performed By: #### B MP ####[address] [address] Glucose [Mass/Vol] 90 mg/dL Normal 74 - 99 [facility] Comment on above: Performed By: #### B MP ####[address] [address] HCO3 (Bld) [Moles/Vol] 23 mmol/L Normal 21 - 32 [facility] Comment on above: Performed By: #### B MP ####[address] [address] Potassium [Moles/Vol] 3.9 mmol/L Normal 3.5 - 5.3 [facility] Comment on above: Performed By: #### B MP ####[address] [address] Sodium [Moles/Vol] 142 mmol/L Normal 136 - 145 [facility] Comment on above: Performed By: #### B MP ####[address] [address] Urea nitrogen [Mass/Vol] 10 mg/dL Normal 6 - 23 [facility] Comment on above: Performed By: #### B MP ####[address] [address] CBCon 04-11-2023 Erythrocyte distribution width (RBC) [Ratio] 11.8 % Normal 11.5 - 14.5 [facility] Comment on above: Performed By: #### U ARFX #### [address] [address] Hematocrit (Bld) [Volume fraction] 34.9 % Low 36.0 - 46.0 [facility] Comment on above: Performed By: #### U ARFX #### [address] [address] Hemoglobin (Bld) [Mass/Vol] 11.5 g/dL Low 12.0 - 16.0 [facility] Comment on above: Performed By: #### U ARFX #### [address] [address] MCHC (RBC) [Mass/Vol] 33.0 g/dL Normal 32.0 - 36.0 [facility] Comment on above: Performed By: #### U ARFX #### [address] [address] MCV (RBC) [Entitic vol] 90 fL Normal 80 - 100 [facility] Comment on above: Performed By: #### U ARFX #### [address] [address] Platelets (Bld) [#/Vol] 213 10*3/uL Normal 150 - 450 [facility] Comment on above: Performed By: #### U ARFX #### [address] [address] RBC 3.86 x10E12/L Low 4.00 - 5.20 [facility] Comment on above: Performed By: #### U ARFX #### [address] [address] WBC (Bld) [#/Vol] 4.4 10*3/uL Normal 4.4 - 11.3 [facility] Comment on above: Performed By: #### U ARFX #### [address] [address] Discharge [id number] Discharge Profile2 Discharge Orders: Anticipated Discharge Date: Anticipated Discharge [id number] Code Status: Code Status at Discharge: Full Code DNR Order Additional Instructions (peds only): Activity: activity as tolerated. May shower. November drive. Diet: Dietresume normal diet Hospital Course (Home Care/Gold Form): Hospital Course: Hospital Course: include significant abnormal lab values 22-year-old female with no significant past medical history presented to emergency department due to abdominal pain with flank pain associated with nausea vomiting and diarrhea and she was found to have pyelonephritis causing her symptoms that she was just treated for UTI at outside urgent care and completed antibiotics 2 days prior to arrival. She was found to have acute kidney injury with pyelonephritis causing her symptoms. Patient was admitted and started on ceftriaxone and her symptoms improved significantly. She also had acute kidney injury on admission and her creatinine worsened and peaked at 2.30. With IV fluids her creatinine has improved to 1.33 and she is feeling better. She is no longer having flank pain and does not have any issues with diet. She is in stable condition and will be discharged home with follow-up with PCP and outpatient BMP. We also gave her a work excuse note to return on Sunday with light workload due to back discomfort prior to arrival. Provider FINAL REVIEW of Orders: Final Review: Final Review of Medication Reconciliation and Orders Completedby Physician Reviewing ProviderBautista Villanueva MD at 11-Apr-2023 09:34:24 Appointments: Follow-Up Appointment 01: Physician/Dept/[facility] provider Jordyn Thakur Reason for ReferralPyelonephritis, acute kidney injury Call to Schedule in1 week LocationS [place] Phone [phone] Annamarie will call and make her own appointment. Electronic Signatures: Kusum Joaquin (DANIEL) (Signed 11-Apr-2023 10:50) Authored: Discharge Orders, Appointments Bautista Villanueva) (Signed 11-Apr-2023 09:34) Authored: Discharge Orders, Hospital Course (Home Care/Gold Form), Provider FINAL REVIEW of Orders, Appointments, Gold Form - Tax Lawyer Summary Last Updated: 11-Apr-2023 10:50 by Kusum Joaquin (DANIEL) [facility] Order Reconciliationon 04-11 Order Reconciliation Page 1 Discharge Reconciliation Document Reconciliation Type: Discharge requested on behalf of Bautista Villanueva (Physician) done by Bautista Villanueva) Discharge - Reconciliation: 11-Apr-2023 09:31 by: Bautista Villanueva) Home Medications EnteredHOME MEDICATIONS AT DISCHARGE DateReconciliation Comment/ Additional Information omeprazole 20 mg oral delayed release capsule 1 cap(s) orally once a day 09-Apr-2023 14:57 omeprazole 20 mg oral delayed release capsule 1 cap(s) orally once a day 09-Apr-2023 14:57 omeprazole 20 mg oral delayed release capsule is continued as omeprazole 20 mg oral delayed release capsule Current OrdersDateHOME MEDICATIONS AT DISCHARGE DateReconciliation Comment/ Additional Information Acetaminophen Tablet (TYLENOL)DOSE = 650 mg Oral Every 4 Hours, PRN Pain - Mild (1-3) 09-Apr-2023 15:03 Acetaminophen is not required Acetaminophen Tablet (TYLENOL)DOSE = 650 mg Oral Every 4 Hours, PRN Temp Greater Than or Equal to 38.0 C 09-Apr-2023 15:03 Acetaminophen is not required cefTRIAXone 1 gram/ Dextrose 5% IVPB Premixed Soln 50 mL (ROCEPHIN)Every 24 HoursRecommended Infusion Time: 30 minute(s) 09-Apr-2023 18:19 cefTRIAXone 1 gram/ Dextrose 5% IVPB Premixed Soln 50 mL is not required Ondansetron Injectable (ZOFRAN)DOSE = 4 mg IntraVenous Push Every 4 Hours, PRN Nausea and/or Vomiting 09-Apr-2023 15:03 Ondansetron Injectable is not required oxyCODONE Immediate Release Tablet (OXYIR, ROXICODONE)DOSE = 5 mg Oral Every 4 Hours, PRN Pain - Severe (7-10) 09-Apr-2023 18:36 oxyCODONE Immediate Release is not required Pantoprazole Enteric Coated Tablet (PROTONIX)DOSE = 40 mg Oral Daily 09-Apr-2023 16:42 Pantoprazole is not required Sodium Chloride 0.9% Injectable Flush via Peripheral LineVolume = 10 mL IntraVenous Flush Every 8 Hours and as Needed 09-Apr-2023 15:03 Sodium Chloride 0.9% Injectable Flush is not required Home Medications Added During Discharge Reconciliation cefdinir 300 mg oral capsule 1 cap(s) orally 2 times a day All Active Home Medications at time of Discharge Reconciliation: 11-Apr-2023 09:31 cefdinir 300 mg oral capsule 1 cap(s) orally 2 times a day omeprazole 20 mg oral delayed release capsule 1 cap(s) orally once a day Normal [facility] BASIC METABOLIC PANELon 03-23 Anion gap [Moles/Vol] 11 mmol/L Normal - [facility] Comment on above: Performed By: #### B MP ####[id number] [place] [address] Calcium [Mass/Vol] 8.4 mg/dL Low 8.6 - 10.3 [facility] Comment on above: Performed By: #### B MP ####[address] [address] Chloride [Moles/Vol] 109 mmol/L High 98 - 107 [facility] Comment on above: Performed By: #### B MP ####[address] [address] Creatinine [Mass/Vol] 2.30 mg/dL High 0.50 - 1.05 [facility] Comment on above: Performed By: #### B MP ####[address] [address] GFR/1.73 sq M.predicted among non-blacks MDRD (S/P/Bld) [Vol rate/Area] 30 mL/min/{1.73_m2} Abnormal >90 [facility] Comment on above: Result Comment: CALC ULATIONS OF ESTIMATED GFR ARE PERFORMED USING THE 2020 CKD-EPI STUDY REFIT EQUATION WITHOUT THE RACE VARIABLE FOR THE IDMS-TRACEABLE CREATININE METHODS. https://jasn.asnjournals.org/content/early//ASN.65194514 88 Performed By: #### B MP ####[address] [address] Glucose [Mass/Vol] 84 mg/dL Normal 74 - 99 [facility] Comment on above: Performed By: #### B MP ####[address] [address] HCO3 (Bld) [Moles/Vol] 23 mmol/L Normal 21 - 32 [facility] Comment on above: Performed By: #### B MP ####[address] [address] Potassium [Moles/Vol] 3.8 mmol/L Normal 3.5 - 5.3 [facility] Comment on above: Performed By: #### B MP ####[address] [address] Sodium [Moles/Vol] 139 mmol/L Normal 136 - 145 [facility] Comment on above: Performed By: #### B MP ####[address] [address] Urea nitrogen [Mass/Vol] 20 mg/dL Normal 6 - 23 [facility] Comment on above: Performed By: #### B MP ####[address] [address] CBCon 04-10-2023 Erythrocyte distribution width (RBC) [Ratio] 11.9 % Normal 11.5 - 14.5 [facility] Comment on above: Performed By: #### U ARFX #### [address] [address] Hematocrit (Bld) [Volume fraction] 37.4 % Normal 36.0 - 46.0 [facility] Comment on above: Performed By: #### U ARFX #### [address] [address] Hemoglobin (Bld) [Mass/Vol] 12.3 g/dL Normal 12.0 - 16.0 [facility] Comment on above: Performed By: #### U ARFX #### [address] [address] MCHC (RBC) [Mass/Vol] 32.9 g/dL Normal 32.0 - 36.0 [facility] Comment on above: Performed By: #### U ARFX #### [address] [address] MCV (RBC) [Entitic vol] 90 fL Normal 80 - 100 [facility] Comment on above: Performed By: #### U ARFX #### [address] [address] Platelets (Bld) [#/Vol] 239 10*3/uL Normal 150 - 450 [facility] Comment on above: Performed By: #### U ARFX #### [address] [address] RBC 4.16 x10E12/L Normal 4.00 - 5.20 [facility] Comment on above: Performed By: #### U ARFX #### [address] [address] WBC (Bld) [#/Vol] 8.0 10*3/uL Normal 4.4 - 11.3 [facility] Comment on above: Performed By: #### U ARFX #### [facility] [address] [place] [address] Daily Progress Note-Medicine on 04-10-2023 Daily Progress Note-Medicine Service: Medicine Subjective Data: LUZ HINOJOSA is a 22 year old Female who is Hospital Day # 2. Patient feeling better no longer nauseated or vomiting. Was able to tolerate diet. Still having some left flank pain. Objective Data: Objective Information: T PRBPMAPSpO2 [id number]% Date/Time04/10 8: 8: 8: 8: 8: 8:04 Range(36.5C - 37.1C ) (59 - 81 ) (16 - 16 ) (112 - 133 )/ (71 - 96 ) (85 - 89 ) (97% - 98% ) Highest temp of 37.1 C was recorded at 04/10 8:04 Pain reported at 04/09 21:14: 2 = Mild Physical Exam Narrative: Physical Exam: General: Not in acute distress, alert HEENT: PERRLA, head intact and normocephalic Neck: Normal to inspection Lungs: Clear to auscultation, work of breathing within normal limit Cardiac: Regular rate and rhythm Abdomen: Soft nontender, positive bowel sounds : Has left CVA tenderness Skin: Intact Hematology: No petechia or excessive ecchymosis Musculoskeletal: Without significant trauma Neurological: Alert awake oriented, no focal deficit, cranial nerves grossly intact Psych: No suicidal ideation or homicidal ideation Medication: Medications: Continuous Medications ------- 1. Sodium Chloride 0.9% Infusion: 1000 mL IntraVenous Scheduled Medications ------- 1. cefTRIAXone 1 gram/ Dextrose 5% IVPB Premixed Soln 50 mL: 50 mL IntraVenous Piggyback Every 24 Hours 2. Pantoprazole: 40 mg Oral Daily PRN Medications ------- 1. Acetaminophen: 650 mg Oral Every 4 Hours 2. Acetaminophen: 650 mg Oral Every 4 Hours 3. Ondansetron Injectable: 4 mg IntraVenous Push Every 4 Hours 4. oxyCODONE Immediate Release: 5 mg Oral Every 4 Hours 5. Sodium Chloride 0.9% Injectable Flush: 10 mL IntraVenous Flush Every 8 Hours and as Needed Recent Lab Results: Results: CBC: 04/10/2023 05:13 \ Hgb / \ 12.3 / WBC Plt 8.0 239 / Hct \ / 37.4 \ RBC: 4.16 MCV: 90 Neutrophil %: 76.2 BMP: 04/10/2023 05:13 NA+ Cl- BUN / 139 109 H 20 / ------- Glucose -- 84 K+ HCO3- Creat \ 3.8 23 2.30 H \ Calcium : 8.4 L Anion Gap : 11 Radiology Results: Results: Impression: 1. Nonspecific heterogeneous renal parenchymal enhancement could be related to physiologic variant versus diffuse renal abnormality including inflammation in the appropriate clinical setting. Recommend correlation with symptomatology and laboratory assessment. 2. Borderline prominent liver periportal halo which also could be due to technique versus liver or systemic abnormality. Recommend correlation with liver function tests and symptomatology. 3. The appendix is not visualized. No definite evidence of appendicitis. 4. Trace pelvic free fluid. CT Abdomen and Pelvis with IV Contrast [Apr 09 2023 1:35PM] Assessment and Plan: Comorbidities: Comorbidityanemia Anemiaprecipitous drop in HCT Code Status: Code StatusFull Code Assessment: 22-year-old female with no significant past medical history presented to emergency department due to abdominal pain with flank pain associated with nausea vomiting and diarrhea and she was found to have pyelonephritis causing her symptoms that she was just treated for UTI at outside urgent care and completed antibiotics 2 days prior to arrival. She was found to have acute kidney injury with pyelonephritis causing her symptoms. Assessment: Acute pyelonephritis Acute kidney injury Vaping Recent UTI Plan: Continue with inpatient level of care Obtain outside hospital urine culture result Follow-up culture result here Kidney function is worse today Given 1 L normal saline bolus and switch fluids to 150 cc of normal saline If no improvement tomorrow, consult nephrology Pain control Left CVA tenderness has improved Repeat labs for tomorrow morning ordered. No obstruction noted on the CT scan Plan discussed with patient at bedside Moderate level of MDM based on above issue and discussing plan This note is created using voice recognition software. All efforts are made to minimize errors, if there are errors there due to inspector assemblies and installations. Bautista Villanueva Hospitalist Electronic Signatures: Bautista Villanueva) (Signed 10-Apr-2023 11:04) Authored: Service, Subjective Data, Objective Data, Assessment and Plan, Note Completion Last Updated: 10-Apr-2023 11:04 by Bautista Villanueva) Normal [facility]ed [facility] MAGNESIUMon 04-10-2023 Magnesium [Mass/Vol] 1.72 mg/dL Normal 1.60 - 2.40 [facility] Comment on above: Performed By: #### M G ####[id number] [place] [address] Admission Risk Screen - Adul ton 04-09-2023 Admission Risk Screen - Adult Allergies: Allergies: clonidine: Hives/Urticaria Patient Verification: New W ID Band Applied in my Departmentno Type of ID Patient is WearingW wristband, but not applied here Patient Transferred from Other Facility ([facility], [facility],etc)no Patient Identity Verified Bypatient ID Band FULL Name, include Middle, spelling matches patient's ID used for verificationyes ID Band Matches Patient ID used for Verficationyes ID Band MRN Matches EMR MRNyes Visitor Restriction: Coronavirus Visitor Restriction: Reasonable restrictions to in-person visitors will be observed due to current coronavirus pandemic. Travel History: COVID-19 Screening Completedno exposure or symptoms(1) Travel or Exposure Past 30 DaysNO travel to International locations in the past 30 days Ebola AlertFor Ebola-like Symptoms: Isolate Patient and Notify Provider/Logistics Planner For Contact: Notify Provider/Logistics Planner Advance Directive: Advance Directive/DNRno (2) Advance Directive Information Givenpatient/family declined Houser Fall Screen: History of falling (immediate or previous)no (0) Secondary Diagnosisno (0) Intravenous Therapy/ Heparin/Saline Lockyes (20) Gait/Transferringnormal/b edrest/wheelchair (0) Ambulatory Aidsnone/bedrest/nurse assist (0) Mental Statusoriented to own ability (0) Score: Low risk (<25). Moderate risk (25-44). High risk (>44).20 Houser InterventionsLOW INTERVENTIONS: *patient oriented to surroundings and call system, * patient/family falls education completed and documented, *patients fall status communicated during bedside handoff, *whiteboard updated, *mode of toileting discussed with patient, *bed in low position with brakes locked, *call light in reach, * non-skid footwear Family Violence Screen: Are you or have you been threatened or abused physically, emotionally, or sexually by anyoneno Do you feel UNSAFE going back to the place where you are livingno Clinical assessment: Are there any apparent signs of injuries/behaviors that could be related to abuse/neglectno Social Service Consult for abuse/neglect needed this visitno Functional Screen: Functional Screen: In the recent/past 2-4 weeks, patient or family have noticedno issues that require a speech/language consult at this time AM-PAC- Basic Mobility/Daily Activity: Patient baseline bedboundno Turning from your back to your side while in a flat bed without using bedrailsnone Moving from lying on your back to sitting on the side of a flat bed without using bedrailsnone Moving to and from bed to chair (including a wheelchair)none Standing up from a chair using your arms (e.g. wheelchair or bedside chair) none To walk in hospital roomnone Climbing 3-5 steps with railingnone Basic Mobility - Total Score24 Putting on and taking off regular lower body clothingnone Bathing (including washing, rinsing, drying)none Putting on and taking off regular upper body clothingnone Toileting, which includes using toilet, bedpan or urinalnone Taking care of personal grooming such as brushing teethnone Eating Mealsnone Daily Activity - Total Score24 Learning Assessment (Patient): Patient is Able to be Assessed for Learningyes Factors Influencing Readiness to Learnacuteness of illness; anxiety Factors that Impact Ability to Learnnone Devices/Methods Used to Communicatenone Learning Preferenceswritten material; verbal instruction Cultural Considerationsnone Developmental Considerationsnone Adventist Considerationsnone Learning Assessment (Other Learner): Other learner availableno Depression Screen: During the past month, have you often been bothered by feeling down, depressed or hopelessno During the past month, have you often had little interest or pleasure in doing thingsno Have you had any thoughts of harming anyone elseno (1) Lowgap Suicide: Risk Screen Not Applicable/Able to Answerable to be screened In the Past Month: Have you wished you were or could go to sleep and not wake upno(1) In the Past Month: Have you had any actual thoughts of killing yourself no(1) Lifetime: Have you ever done, started to do, or prepared to do anything to end your lifeno Lowgap Suicide Risknegative Adult Nutrition Screen: Have you recently lost weight without tryingno Have you been eating poorly because of a decreased appetiteno Malnutrition Screening Tool Score0 Malnutrition Screening Tool RiskMST = 0 or 1 Not at risk. Eating well with little or no weight loss Nutrition Consult needed this visitno Can Patient Participate in Room Serviceyes Patient requires Paper Dishes/Plastic Utensilsno Pain Screen: Pain Scalenumerical 0-10 Pain Scale Educationteaching provided Current Pain Level4 = Moderate Acceptable Pain Level7 = Severe Expression of Pain (nonverbal)none Chronic Painno Spiritual Screen: Are there any (more content not included)... Normal M[facility]ed [facility] BASIC METABOLIC PANELon 03-23 Anion gap [Moles/Vol] 14 mmol/L Normal 10 - 20 [facility] Comment on above: Performed By: #### U ARFX #### [address] [address] Calcium [Mass/Vol] 8.1 mg/dL Low 8.6 - 10.3 [facility] Comment on above: Performed By: #### U ARFX #### [address] [address] Chloride [Moles/Vol] 112 mmol/L High 98 - 107 [facility] Comment on above: Performed By: #### U ARFX #### [address] [address] Creatinine [Mass/Vol] 2.16 mg/dL High 0.50 - 1.05 [facility] Comment on above: Performed By: #### U ARFX #### [address] [address] GFR/1.73 sq M.predicted among non-blacks MDRD (S/P/Bld) [Vol rate/Area] 32 mL/min/{1.73_m2} Abnormal >90 [facility] Comment on above: Result Comment: CALC ULATIONS OF ESTIMATED GFR ARE PERFORMED USING THE 2020 CKD-EPI STUDY REFIT EQUATION WITHOUT THE RACE VARIABLE FOR THE IDMS-TRACEABLE CREATININE METHODS. https://jasn.asnjournals.org/content//ASN.44081485 88 Performed By: #### U ARFX #### [address] [address] Glucose [Mass/Vol] 74 mg/dL Normal 74 - 99 [facility] Comment on above: Performed By: #### U ARFX #### [address] [address] HCO3 (Bld) [Moles/Vol] 19 mmol/L Low 21 - 32 [facility] Comment on above: Performed By: #### U ARFX #### [address] [address] Potassium [Moles/Vol] 3.9 mmol/L Normal 3.5 - 5.3 [facility] Comment on above: Performed By: #### U ARFX #### [address] [address] Sodium [Moles/Vol] 141 mmol/L Normal 136 - 145 [facility] Comment on above: Performed By: #### U ARFX #### [address] [address] Urea nitrogen [Mass/Vol] 19 mg/dL Normal 6 - 23 [facility] Comment on above: Performed By: #### U ARFX #### [address] [address] Anion gap [Moles/Vol] 14 mmol/L Normal 10 - 20 [facility] Comment on above: Performed By: #### B MP ####[address] [address] Calcium [Mass/Vol] 9.5 mg/dL Normal 8.6 - 10.3 [facility] Comment on above: Performed By: #### B MP ####[address] [address] Chloride [Moles/Vol] 107 mmol/L Normal 98 - 107 [facility] Comment on above: Performed By: #### B MP ####[address] [address] Creatinine [Mass/Vol] 2.20 mg/dL High 0.50 - 1.05 [facility] Comment on above: Performed By: #### B MP ####[address] [address] GFR/1.73 sq M.predicted among non-blacks MDRD (S/P/Bld) [Vol rate/Area] 32 mL/min/{1.73_m2} Abnormal >90 [facility] Comment on above: Result Comment: CALC ULATIONS OF ESTIMATED GFR ARE PERFORMED USING THE 2020 CKD-EPI STUDY REFIT EQUATION WITHOUT THE RACE VARIABLE FOR THE IDMS-TRACEABLE CREATININE METHODS. https://jasn.asnjournals.org/content//ASN.47631633 88 Performed By: #### B MP ####[address] [address] Glucose [Mass/Vol] 91 mg/dL Normal 74 - 99 [facility] Comment on above: Performed By: #### B MP ####[address] [address] HCO3 (Bld) [Moles/Vol] 23 mmol/L Normal 21 - 32 [facility] Comment on above: Performed By: #### B MP ####[address] [address] Potassium [Moles/Vol] 3.7 mmol/L Normal 3.5 - 5.3 [facility] Comment on above: Performed By: #### B MP ####[address] [address] Sodium [Moles/Vol] 140 mmol/L Normal 136 - 145 [facility] Comment on above: Performed By: #### B MP ####[address] [address] Urea nitrogen [Mass/Vol] 20 mg/dL Normal 6 - 23 [facility] Comment on above: Performed By: #### B MP ####[address] [address] BLOOD CULTURE, BACTERIALon 0 04-09-2023 BLOOD CULTURE, BACTERIAL PATIENT: LUZ HINOJOSA [place] [facility] [place]#: [id number] : [birth year] AGE: SEX: F ORDERED BY: ALIE RODRIGUEZ SOURCE: Blood COLLECTED: 04/09/23 14:05 ANTIBIOTICS AT [facility].: RECEIVED : 04/10/23 01:43 SITE: R E S U L T S BLOOD CULTURE, BACTERIAL FINAL 04/14/23 05:42 No Growth at 1 days No Growth at 2 days No Growth at 3 days NO GROWTH at 4 days - FINAL REPORT [facility] Comment on above: Performed By: #### B LDC ####[id number] [place] [address] BLOOD CULTURE, BACTERIAL PATIENT: LUZ HINOJOSA LOCATION: [address]#: [id number] : [birth year] AGE: SEX: F ORDERED BY: ALIE RODRIGUEZ SOURCE: Blood COLLECTED: 04/09/23 14:05 ANTIBIOTICS AT [facility].: RECEIVED : 04/10/23 01:45 SITE: ANTECUBITAL ANTECUBITAL R E S U L T S BLOOD CULTURE, BACTERIAL FINAL 04/14/23 05:42 No Growth at 1 days No Growth at 2 days No Growth at 3 days NO GROWTH at 4 days - FINAL REPORT [facility] Comment on above: Performed By: #### B LDC ####[id number] [place] [address] CBC AND DIFFERENTIALon 04-09 % AUTOMATED IMMATURE GRAN 0.2 % Normal 0.0 - 0.9 [facility] Comment on above: Result Comment: Tammie ture Granulocyte Count (IG) includes promyelocytes, myelocytes and metamyelocytes but does not include bands. Percent differential counts (%) should be interpreted in the context of the absolute cell counts (cells/L). Performed By: #### C BCDF #### [address] [address] Basophils (Bld) [#/Vol] 0.02 10*3/uL Normal 0.00 - 0.10 [facility] Comment on above: Performed By: #### C BCDF #### [address] [address] Basophils/100 WBC (Bld) 0.2 % Normal 0.0 - 2.0 [facility] Comment on above: Performed By: #### C BCDF #### [address] [address] Eosinophils (Bld) [#/Vol] 0.02 10*3/uL Normal 0.00 - 0.70 [facility] Comment on above: Performed By: #### C BCDF #### [address] [address] Eosinophils/100 WBC (Bld) 0.2 % Normal 0.0 - 6.0 [facility] Comment on above: Performed By: #### C BCDF #### [address] [address] Erythrocyte distribution width (RBC) [Ratio] 11.7 % Normal 11.5 - 14.5 [facility] Comment on above: Performed By: #### C BCDF #### [address] [address] Hematocrit (Bld) [Volume fraction] 42.9 % Normal 36.0 - 46.0 [facility] Comment on above: Performed By: #### C BCDF #### [address] [address] Hemoglobin (Bld) [Mass/Vol] 14.3 g/dL Normal 12.0 - 16.0 [facility] Comment on above: Performed By: #### C BCDF #### [address] [address] Lymphocytes (Bld) [#/Vol] 0.91 10*3/uL Low 1.20 - 4.80 [facility] Comment on above: Performed By: #### C BCDF #### [address] [address] Lymphocytes/100 WBC (Bld) 10.4 % Normal 13.0 - 44.0 [facility] Comment on above: Performed By: #### C BCDF #### [address] [address] MCHC (RBC) [Mass/Vol] 33.3 g/dL Normal 32.0 - 36.0 [facility] Comment on above: Performed By: #### C BCDF #### [address] [address] MCV (RBC) [Entitic vol] 89 fL Normal 80 - 100 [facility] Comment on above: Performed By: #### C BCDF #### [address] [address] Monocytes (Bld) [#/Vol] 1.12 10*3/uL High 0.10 - 1.00 [facility] Comment on above: Performed By: #### C BCDF #### [address] [address] Monocytes/100 WBC (Bld) 12.8 % Normal 2.0 - 10.0 [facility] Comment on above: Performed By: #### C BCDF #### [address] [address] Neutrophils (Bld) [#/Vol] 6.64 10*3/uL Normal 1.20 - 7.70 [facility] Comment on above: Result Comment: Perc ent differential counts (%) should be interpreted in the context of the absolute cell counts (cells/L). Performed By: #### C BCDF #### [address] [address] Neutrophils/100 WBC (Bld) 76.2 % Normal 40.0 - 80.0 [facility] Comment on above: Performed By: #### C BCDF #### [address] [address] Platelets (Bld) [#/Vol] 283 10*3/uL Normal 150 - 450 [facility] Comment on above: Performed By: #### C BCDF #### [address] [address] RBC 4.85 x10E12/L Normal 4.00 - 5.20 [facility] Comment on above: Performed By: #### C BCDF #### [address] [address] WBC (Bld) [#/Vol] 8.7 10*3/uL Normal 4.4 - 11.3 [facility] Comment on above: Performed By: #### C BCDF #### [address] [address] [address] ABDOMEN AND PELVIS W IV C [facility] 04-09-2023 CT ABDOMEN AND PELVIS W IV CONTRAST Patient Name: LUZ HINOJOSA STUDY: CT ABDOMEN AND PELVIS W IV CONTRAST; 04/09/2023 12:57 pm INDICATION: Periumbilical and RLQ abdominal pain . COMPARISON: January 09, 2020 renal ultrasound ACCESSION NUMBER(S): [id number] ORDERING CLINICIAN: ALIE RODRIGUEZ TECHNIQUE: CT of the abdomen and pelvis was performed. Standard contiguous axial images were obtained at 3 mm slice thickness through the abdomen and pelvis. Coronal and sagittal reconstructions at 3 mm slice thickness were performed. 81 milliliter of contrast OMNIPAQUE 350 were administered intravenously without immediate complication. FINDINGS: LOWER CHEST: The visualized lung base is unremarkable. The heart is normal in size without pericardial effusion. No pleural effusion is present. Visualized distal esophagus appears normal. ABDOMEN: LIVER: Normal morphology without suspicious lesion. Mildly prominent periportal halo. BILE DUCTS: Normal caliber. GALLBLADDER: No calcified stones. No wall thickening. PANCREAS: The pancreas appears unremarkable without evidence of ductal dilatation or masses. SPLEEN: The spleen is normal in size without focal lesions. ADRENAL GLANDS: Within normal limits. KIDNEYS AND URETERS: Mildly asymmetric nephrograms with relative diffuse hyperenhancement corticomedullary components with superimposed reticular hyperenhancing foci including periphery of the right kidney series 2, image 55 of indeterminate cause potentially due to inflammation, phase of imaging, or other nonspecific renal insult. No hydroureteronephrosis or nephroureterolithiasis is identified. PELVIS: BLADDER: Unremarkable REPRODUCTIVE ORGANS: Unremarkable BOWEL: Normal caliber without detected inflammatory change. The appendix is not identified with certainty. No definite evidence of appendicitis. VESSELS: The aorta and IVC appear normal. PERITONEUM/RETROPERITONEU M/LYMPH NODES: Trace, physiologic amount of pelvic free fluid. No abdominopelvic lymphadenopathy is present. BONES AND ABDOMINAL WALL: Unremarkable IMPRESSION: 1. Nonspecific heterogeneous renal parenchymal enhancement could be related to physiologic variant versus diffuse renal abnormality including inflammation in the appropriate clinical setting. Recommend correlation with symptomatology and laboratory assessment. 2. Borderline prominent liver periportal halo which also could be due to technique versus liver or systemic abnormality. Recommend correlation with liver function tests and symptomatology. 3. The appendix is not visualized. No definite evidence of appendicitis. 4. Trace pelvic free fluid. Electronically signed by: KIKI ACOSTA MD [facility] Discharge Planning [id number] 04-09-2023 Discharge Planning Note2 Discharge Planning: Needs Prior to Discharge (ex. 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 Address, telephone, and primary contact confirmed. patient denies problems obtaining/affording medications, takes as prescribed, understands reasons for use and possible side effects. Pt here for n/v, urinary symptoms that did not improve with out pt ATB. Lives in apartment with significant other whom she desires to make her primary contact. Boyfriend Sony Munoz [phone]. Will notify registration of same. Desires to keep her mom as second. AMPAC per nursing is 24, no falls or use of assistive devices. No issues in mobility. 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 Will need work excuse. Plan to d/c home with no other anticipated needs. CT will follow. Mena Samson RN- TCC ([facility]) Assessment: Discharge Planning Assessment [id number] Discharge Planning Assessment Completed byMena Samson RN- TCC Primary Contact Name and NumberBoyfriend Sony Munoz [phone] James Qureshi [phone] Prior Level of FunctioningIndependent in all ADL's and IADL's, works, drives Lives Withsignificant other(1) Living Arrangementsapartment(1) Stated Reason for Admissionmy stomach hurt, I started puking this morning(1) Arrived Fromemergency department (1) [facility]CPJordyn Ramirez [facility]/ Injury/ Need Assist with Ambulationdenies Home Care Agency/Support ServicesNone Diabetic/Supplies NeededNone Resource/Environmental Concernsnone(1) [facility] Services Anticipated at Transitionnone(1) PCP Last Date Seen03/06/23 Anticipated Changes Related to Illnessnone Equipment Needed After Dischargenone Anticipated Discharge Facility/Level of Care Needs.Home Social Determinants of Health IdentifiedNone Transportation Home Who/Howmom or boyfriend Medication Adherence/Afford/Obtainye s O2 LPMNone Electronic Signatures: Itzel Coy (RN) (Signed 09-Apr-2023 16:13) Authored: Discharge Planning, Assessment Mena Samson (ROXI) (Signed 10-Apr-2023 08:19) Authored: Discharge Planning, Assessment Last Updated: 10-Apr-2023 08:19 by Mena Samson (ROXI) References: 1. Data Referenced From Patient Profile - Adult v2 09-Apr-2023 15:54 Normal [facility] HCG,URINEon 04-09-2023 Beta HCG ( test) Ql (U) Negative Normal Negative [facility] Comment on above: Performed By: #### H CGU ####[id number] [place] [address] HEPATIC FUNCTION PANELon Albumin [Mass/Vol] 4.6 g/dL Normal 3.4 - 5.0 [facility] Comment on above: Performed By: #### U ARFX #### [address] [address] ALP [Catalytic activity/Vol] 48 U/L Normal 33 - 110 [facility] Comment on above: Performed By: #### U ARFX #### [address] [address] ALT [Catalytic activity/Vol] 8 U/L Normal 7 - 45 [facility] Comment on above: Result Comment: Glory ents treated with Sulfasalazine may generate falsely decreased results for ALT. Performed By: #### U [place]FX #### [place] [address] AST [Catalytic activity/Vol] 16 U/L Normal 9 - 39 [facility] Comment on above: Performed By: #### U ARFX #### [id number] Bilirubin [Mass/Vol] 1.1 mg/dL Normal 0.0 - 1.2 [facility] Comment on above: Performed By: #### U ARFX #### [place] [address] Bilirubin.indirect [Mass/Vol] 0.2 mg/dL Normal 0.0 - 0.3 [facility] Comment on above: Performed By: #### U ARFX #### [id number] Protein [Mass/Vol] 7.5 g/dL Normal 6.4 - 8.2 [facility] Comment on above: Performed By: #### U ARFX #### [id number] LACTATEon 04-09-2023 Lactate [Moles/Vol] 0.8 mmol/L Normal 0.4 - 2.0 [facility] Comment on above: Result Comment: Yoko puncture immediately after or during the administration of Metamizole may lead to falsely low results. Testing should be performed immediately prior to Metamizole dosing. Performed By: #### L ACT #### [id number] LIPASEon 04-09-2023 Lipase [Catalytic activity/Vol] 31 U/L Normal 9 - 82 [facility] Comment on above: Result Comment: Yoko puncture immediately after or during the administration of Metamizole may lead to falsely low results. Testing should be performed immediately prior to Metamizole dosing. T-qyzgwc-x-benzoquinone imine (metabolite of Acetaminophen) will generate erroneously low results in samples for patients that have taken toxic doses of acetaminophen. Performed By: #### L IPAS #### [facility] [address] [place] [address] Order Reconciliationon 04-09 Order Reconciliation Page 1 Admission Reconciliation Document Reconciliation Type: ED to Observation requested on behalf of Delgado Nix (Physician) done by Delgado Nix) ED to Observation - Reconciliation: 09-Apr-2023 16:42 by: Delgado Nix) ED to Observation - AutoLinked: 09-Apr-2023 16:42 by: Delgado Nix) Home MedicationsEnteredLast Dose TakenReconciled with current Order Reconciliation Comment/ Additional Information omeprazole 20 mg oral delayed release capsule 1 cap(s) orally once a day [id number] AM Pantoprazole Enteric Coated Tablet (PROTONIX)DOSE = 40 mg Oral Dailyomeprazole 20 mg oral delayed release capsule continued as the inpatient order Pantoprazole Additional Current Orders Acetaminophen Tablet (TYLENOL)DOSE = 650 mg Oral Every 4 Hours, PRN Pain - Mild (1-3) Acetaminophen Tablet (TYLENOL)DOSE = 650 mg Oral Every 4 Hours, PRN Temp Greater Than or Equal to 38.0 C Lactated Ringers Infusion IV Bag Volume = 1,000 mL Run at: 100 mL/hr IntraVenous Ondansetron Injectable (ZOFRAN)DOSE = 4 mg IntraVenous Push Every 4 Hours, PRN Nausea and/or Vomiting Sodium Chloride 0.9% Injectable Flush via Peripheral LineVolume = 10 mL IntraVenous Flush Every 8 Hours and as Needed Normal Merged With [facility] Patient Profile - Adult v2on 04-09-2023 Patient Profile - Adult v2 Profile: Initial Info: How to be AddressedBrianna Spoken Language PreferredEnglish (1) Source of Informationpatient Stated Reason for Admissionmy stomach hurt, I started puking this morning Wants Family/Rep Notified of Admissionn/a; family present Notify PCPnotify PCP [facility] Jordyn CORRIGAN Informed of Patient Visiting Rightsyes [facility] Patient Belongingsremains with patient Patient Belongings Remaining with Patientclothing; cell phone/electronics; purse/wallet; jewelry Medications Brought to Hospitalno General Health: Weight in kg54 kilogram(s)(2) Weight in buu575 pound(s) Weight Methodactual (measured) Scale Typebed Height in cm165.1 centimeter(s) Height in feet5 feet Height in inches5 inch(es) Height Methodstated BMI (kg/m2)19.81 square meter RSP Based Care: How would you like to participate in your carehelp make informed decisions What is the number one concern for you during this hospitalizationget better What is the most important thing we can do to support you during this hospitalizationhelp me get better Is there anything we need to know to best care for youno Substance: Smoking Statusheavy user (uses >30 cig/day, OR >1.5 ppd, OR >3 cans/pouches loose leaf tobacco per week, OR >1.5 vape pods per day) (3) Tobacco Cessation Education (provide if tobacco use within the last 12 mos) patient uses vape with nicotine Alcohol Useoccasionally Drug Usedenies (3) Health Mgmt: Symptoms/Conditions Managed at Homebehavioral health; gastrointestinal Are You no (3) Are You Currently Breastfeedingno (3) Behavioral Health Symptoms/Conditionsanxiet y Behavioral Health Managementmanaged Gastrointestinal Symptoms/Conditionsreflux /heartburn Gastrointestinal Management Strategiesmedication therapy Gastrointestinal Managementmanaged Relationship/Environ: Resource/Environmental Concernsnone Primary Source of Support/Comfortsignifican t other; parent Lives Withsignificant other Living Arrangementsapartment Services Anticipated at Transitionnone Anticipated Transition Tohome Significant IndicatorsComplete Information Review: Allergies, Home Meds and Significant Events have been Reviewed and Verified with Patient/Familyno ALLERGY, INTOLERANCE, ADVERSE EVENT: Allergies: clonidine: Drug, Hives/Urticaria, Active Electronic Signatures: Itzel Coy) (Signed 09-Apr-2023 16:01) Authored: Initial Info, General Health, RSP Based Care, Substance, Health Mgmt, Relationship/Environ, Additional Information Last Updated: 09-Apr-2023 16:01 by Itzel Coy (ROXI) References: 1. Data Referenced From Triage - ED 06-Nov-2022 18:48 2. Data Referenced From 1. Vital Signs 09-Apr-2023 10:40 3. Data Referenced From History and Physical 09-Apr-2023 15:05 Normal Merged With [facility] Provider Note - ED v3on 09- Provider Note - ED v3 Provider Note: Results/Vital Signs: Pediatric Clinical Scoring (BRYAN) is no recent BRYAN charted on this account Chart Review: ED NOTES ED NOTES: ====HPI==== Patient is a 22-year-old female who presents to the emergency department with periumbilical abdominal pain radiating to her right lower quadrant. She states that she has had pain for approximately 2 to 3 days. She states that yesterday her pain was the worst and today she started vomiting. She denies any fever or chills. No diarrhea. No chest pain or shortness of breath. No alleviating or exacerbating factors. She states that she recently finished an antibiotic for urinary tract infection but also states that she has missed a few doses. Pt denies any N/V/D/C, CP, BARKER or hemoptysis. PMHX: Denies Social HX: Vapes nicotine TOBACCO Denies ETOH Denies DRUGS ====Review of Systems==== 10 point system review is negative except for those specifically mentioned in history of present illness ====Physical Exam==== Constitutional/General: Alert and oriented x3, well appearing, nontoxic, and in NAD. Head: Normocephalic and atraumatic. Eyes: EOMI, conjunctive normal, sclera nonicteric, subconjunctival layer is pink. Mouth: Oropharynx clear, handling secretions, no trismus, no asymmetry of the posterior oropharynx or uvular edema Neck: Supple, full ROM, no stridor, no crepitus, no meningeal signs. Trachea at midline. Respiratory: Lungs clear to auscultation bilaterally, no wheezes, rales, or rhonchi, not in respiratory distress. Cardiovascular: Regular rate, regular rhythm, no murmurs, gallops, or rubs, 2+ distal pulses. Chest: normal chest wall movement GI: Abdomen soft, mild tenderness to the RLQ, nondistended, no organomegaly, no palpable masses, no rebound, guarding, or rigidity. Musculoskeletal: Moves all extremities x4, warm and well perfused, no clubbing, cyanosis, or edema, cap refill <3 seconds Integument: Skin warm and dry, no rashes. Neurologic: GCS 15, no focal deficits, symmetric strength 5/5 in the upper and lower extremities bilaterally. Psychiatric: Normal affect. ====ED Course and Medical Decision Making==== See MDM section for review of findings & plan of care. Portions of this note were dictated by speech recognition. An attempt at proof reading was made to minimize errors. Minor errors in inspector assemblies and installations may be present. Please call if questions.. HISTORY OF PRESENTING ILLNESS LUZ is a 22 year old Female and was seen by me at 09-Apr-2023 10:43 for a chief complaint of abdominal pain (Amb to ED with c/o mid abd pain x 2 days that radiates to R side now. She also reports some N/V this am. Denies , states that LMP ended 2 days ago.)(1). Triage Information: Most recent Vital Sign Value Date Temp (F): 97.8 04-09-2023 10:48 Temp (C): 36.5 04-09-2023 10:48 Heart Rate (beats/min): 81 04-09-2023 10:48 Respirations (breaths/min): 16 04-09-2023 10:48 SpO2 (%): 97 04-09-2023 10:48 BP Systolic (mm Hg): 133 04-09-2023 10:48 BP Diastolic (mm Hg): 96 04-09-2023 10:48 PAST MEDICAL HISTORY ALLERGIES/INTOLERANCES: Allergy Allergen: clonidine Type: Drug Reaction: Hives/Urticaria HEALTH HISTORY: No documented data. OUTPATIENT MEDICATIONS: Home Medications Review Status for Reconciliation: Complete Med Status: Patient Currently Takes Medications Drug Name: omeprazole 20 mg oral delayed release capsule Instructions: 1 cap(s) orally once a day SIGNIFICANT EVENTS: Past Medical History Description:[place] teeth extraction CRITICAL CARE RESULTS: Recent Lab Results: I have reviewed these laboratory results: Basic Metabolic Panel Trending View [id number] 13:30:00 09-Apr-2023 11:05:00 Glucose, Serum74 91 NA141 140 K3.9 3.7 CL112 H 107 Bicarbonate, Serum19 L 23 Anion Gap, Serum14 14 BUN19 20 CREAT2.16 H 2.20 H GFR Uhgmam46 A 32 A Calcium, Serum8.1 L 9.5 Hepatic Function Panel 09-Apr-2023 11:05:00 ResultValue Aspartate Transaminase, Serum 16 ALB 4.6 T Bili 1.1 Bilirubin, Serum Direct - Conjugated 0.2 ALKP 48 Alanine Aminotransferase, Serum 8 T Pro 7.5 Complete Blood Count + Differential 09-Apr-2023 11:05:00 ResultValue White Blood Cell Count 8.7 Red Blood Cell Count 4.85 HGB 14.3 HCT 42.9 MCV 89 MCHC 33.3 PLT 283 RDW-CV 11.7 Neutrophil % 76.2 Immature Granulocytes % 0.2 Lymphocyte % 10.4 Monocyte % 12.8 Eosinophil % 0.2 Basophil % 0.2 Neutrophil Count 6.64 Lymphocyte Count 0.91 L Monocyte Count 1.12 H Eosinophil Count 0.02 Basophil Count 0.02 Urine Test 09-Apr-2023 11:05:00 ResultValue HCG, Urine NEGATIVE Urinalysis with Culture if Indicated 09-Apr-2023 11:05:00 ResultValue Color, Urine Rox Reference Range: STRAW,YELLOW Appearance, Urine HAZY Specific [place], Urine 1.006 pH, Urine 6.0 Protein, Urine NEGATIVE Glucose, (more content not included)... Normal Merged With [facility] Risk Screen - Adult Emergenc yon 04-09-2023 Risk Screen - Adult Emergency Preferred Language: Preferred Language: Preferred Language for Discussing Health Care (patient/designee)Polish Patient Preferred Pharmacy: Patient Preferred Pharmacy Statement: I have reviewed and updated the patient's preferred pharmacy selection for today's visit. Advanced Directives: Advance Directive/DNRno Family Violence Adult: Abuse Screen: Are you or have you been threatened or abused physically, emotionally, or sexually by anyoneno Learning Assessment (Patient): Learning Assessment (Patient): Patient is Able to be Assessed for Learningyes Factors Influencing Readiness to Learnacuteness of illness Factors that Impact Ability to Learnnone Devices/Methods Used to Communicatenone Learning Preferencesverbal instruction; written material Cultural Considerationsnone Developmental Considerationsnone Adventist Considerationsnone Learning Assessment (Other Learner): Learning Assessment (Other Learner): Other learner availableno Pressure Injury/TB/Substance: Pressure Injury: Pressure Injury Present on Admissionno Do you have a coughno Smoking Statusheavy user (uses >30 cig/day, OR >1.5 ppd, OR >3 cans/pouches loose leaf tobacco per week, OR >1.5 vape pods per day) Tobacco Cessation Education (provide if tobacco use within the last 12 mos) patient declined Alcohol Usedenies Drug Usedenies Admission Risk Screen: Significant IndicatorsComplete CAGE: CAGE: Is this an injured patient [place] a [place] [place]/ [place]): no Electronic Signatures: Imelda Ramirez (RN) (Signed 09-Apr-2023 10:53) Authored: Preferred Language, Patient Preferred Pharmacy, Advanced Directives, Family Violence Adult, Learning Assessment (Patient), Learning Assessment (Other Learner), Pressure Injury/TB/Substance, Pressure Injury, CAGE Last Updated: 09-Apr-2023 10:53 by Imelda Ramirez (RN) [facility] Triage - EDon 04-09-2023 Triage - ED Quick Triage: Are You no Have You Given In The Last 6 Weeksno Are You Currently Breastfeedingno The patient and/or guardian verbally acknowledges placement for services into the following (when Urgent Care Service hours are operating):emergency department Chart Review: ARRIVAL INFORMATION Mode of Arrival: private vehicle CHIEF COMPLAINT LUZ HINOJOSA is a Female patient with a chief complaint of abdominal pain (Amb to ED with c/o mid abd pain x 2 days that radiates to R side now. She also reports some N/V this am. Denies , states that LMP ended 2 days ago.). Triage Date/Time: 09-Apr-2023 10:40 CECE: 3 Pain Rating (0-10): 3 = Mild Pain location: abd Vital Signs: Temperature: 97.8F ( 36.5C) taken temporal Blood Pressure: 133/96 Mean: Heart Rate: 81 Respiratory Rate: 16 Pulse Oximetry: 97% on room air, no respiratory support. Weight: 119.0 pounds. Calculated 54.0 kg. [place] Coma Scale: Best Eye Response: (E4) spontaneous Best Motor Response: (M6) obeys commands Best Verbal Response: (V5) oriented [place] Score: 15 Cough lasting greater than 3 weeks: no Allergies: yes Last menstrual period: 02-Apr-2023 Patient has homicidal thoughts: no Symptoms Are POSITIVE For: nausea and vomiting. Symptoms Are Negative For: anorexia, constipation, diaphoresis, diarrhea, distention, fever and rectal blood. Risk Screens Suicide Risk Screen In the Past Month: Have you wished you were or wished you could go to sleep and not wake up no In the Past Month: Have you had any actual thoughts of killing yourself no In Your Lifetime: Have you ever done anything, started to do anything, or prepared to do anything to end your life no Houser Fall Scale Screening Has the patient fallen before (or is the patient in the ED as a result of a fall) has not had a fall Does the patient have an impaired gait does not have impaired gait Is the patient cognitively impaired not cognitively impaired Interventions: Houser Fall Interventions: LOW INTERVENTIONS: *patient oriented to surroundings and call system, * patient/family falls education completed and documented, *patients fall status communicated during bedside handoff, *whiteboard updated, *mode of toileting discussed with patient, *bed in low position with brakes locked, *call light in reach, * non-skid footwear TRAVEL HISTORY Travel History Coronavirus Screening: no exposure or symptoms Travel Exposure History: NO travel to International locations in the past 30 days PAIN Pain Scale Used: RODRIGUEZ Pain Rating (0-10): 3 = Mild Past Medical History: Past Medical History Reviewedyes Electronic Signatures: Imelda Ramirez) (Signed 09-Apr-2023 10:52) Entered: Risk Screens, Pain, Travel History, Chart Review, Scores, Past Medical History Authored: Quick Triage, Risk Screens, Pain, Travel History, Chart Review, Scores, Past Medical History Last Updated: 09-Apr-2023 10:52 by Imelda Ramirez (ROXI) Normal Merged With [facility] UA MICROSCOPICon 04-09-2023 BACTERIA 2+ /HPF Abnormal Merged With [facility] Comment on above: Performed By: #### U AMIC ####[id number] [place] [address] RBC 2 /HPF Normal 0-5 Merged With [facility] Comment on above: Performed By: #### [place] ####[place] [address] SQUAMOUS EPITH. CELLS 19 /HPF Normal Merged With [facility] Comment on above: Performed By: #### U [place]IC ####[place] [address] WBC 9 /HPF Abnormal 0-5 Merged With [facility] Comment on above: Performed By: #### U AMIC ####[place] [address] URINALYSIS WITH CULTURE IF I NDICATEDon 04-09-2023 Appearance (U) HAZY Normal CLEAR [facility]erged [facility] Comment on above: Performed By: #### U ARFX #### [place] [address] Bilirubin Ql (U) Negative Normal NEGATIVE [facility] Comment on above: Performed By: #### U AR[place] #### [place] [address] Color (U) Rox Normal STRAW,YELLOW Merged With [facility] Comment on above: Performed By: #### U AR[place] #### [place] [address] Glucose Ql (U) Negative Normal NEGATIVE [facility]ed [facility] Comment on above: Performed By: #### U ARFX #### [place] [address] Hemoglobin Ql (U) MODERATE (2+) Abnormal NEGATIVE [facility] Comment on above: Performed By: #### U ARFX #### [place] [address] Ketones Ql (U) Negative Normal NEGATIVE [facility]erged [facility] Comment on above: Performed By: #### U ARFX #### [place] [address] Leukocyte esterase Test strip Ql (U) Negative Normal NEGATIVE [facility] Comment on above: Performed By: #### U ARFX #### [id number] Nitrite Ql (U) Positive Abnormal NEGATIVE [facility]erged [facility] Comment on above: Performed By: #### U ARFX #### [address] [address] pH (U) 6.0 [pH] Normal 5.0 - 8.0 Merged With [facility] Comment on above: Performed By: #### U ARFX #### [address] [address] Protein Ql (U) Negative Normal NEGATIVE [facility]ed [facility] Comment on above: Performed By: #### U ARFX #### [address] [address] Specific gravity (U) [Rel density] 1.006 Normal 1.005 - 1.035 Merged With [facility] Comment on above: Performed By: #### U ARFX #### [address] [address] Urobilinogen (U) [Mass/Vol] mg/dL Normal 0.0 - 1.9 Merged With [facility] Comment on above: Performed By: #### U ARFX #### [address] [address] URINE CULTURE,BACTERIALon URINE CULTURE,BACTERIAL PATIENT: LUZ HINOJOSA LOCATION: [address]#: [id number] : [birth year] AGE: SEX: F ORDERED BY: ALIE RODRIGUEZ SOURCE: URINE COLLECTED: 04/09/23 11:05 ANTIBIOTICS AT [facility].: RECEIVED : 04/09/23 19:53 SITE: R E S U L T S URINE CULTURE,BACTERIAL FINAL 04/10/23 13:17 NO SIGNIFICANT GROWTH. Normal Merged [facility] Comment on above: Performed By: #### U RINC ####[id number] [place] [address] Provider Note - ED v3on 10-21 Provider Note - ED v3 Provider Note: Chart Review: HISTORY OF PRESENTING ILLNESS LUZ is a 21 year old Female and was seen by me at 06-Nov-2022 17:58 for a chief complaint of nausea (states she took her paxil at 1430, and hasn't taken in a month. then at 1500 she c/o nausea and dizziness. states she is feeling better now.)(1). Triage Information: Most recent Vital Sign Value Date Temp (F): 97.8 11-06-2022 18:48 Temp (C): 36.5 11-06-2022 18:48 Heart Rate (beats/min): 92 11-06-2022 18:48 Respirations (breaths/min): 18 11-06-2022 18:48 SpO2 (%): 97 11-06-2022 18:48 BP Systolic (mm Hg): 133 11-06-2022 18:48 BP Diastolic (mm Hg): 79 11-06-2022 18:48 PAST MEDICAL HISTORY ALLERGIES/INTOLERANCES: Allergy Allergen: clonidine Type: Drug Reaction: Hives/Urticaria HEALTH HISTORY: No documented data. OUTPATIENT MEDICATIONS: Home Medications Review Status for Reconciliation: Not Done Med Status: Incomplete Medication History Drug Name: PARoxetine mesylate 40 mg oral tablet Instructions: 1 tab(s) orally once a day (in the morning) Drug Name: BuSpar 5 mg oral tablet Instructions: 1 tab(s) orally 3 times a day, As Needed Drug Name: omeprazole 20 mg oral delayed release capsule Instructions: 1 cap(s) orally once a day Drug Name: ondansetron 4 mg oral tablet, disintegrating Instructions: 1 tab(s) orally 3 times a day, As Needed -for nausea and vomiting SIGNIFICANT EVENTS: Past Medical History Description:[place] teeth extraction MDM MDM/ED COURSE: PMH: Reviewed PSH: Reviewed Social History: Reviewed. Allergies reviewed. HPI: This is a 21 year old female with history of anxiety who presents to the ED today with complaints of nausea. States that she had not taken her Paxil for the past month as she had just kept forgetting to take it. Today she thought maybe she should start taking it again so she took it at the full 40 mg. About a half an hour later she started to feel dizzy, nauseated. Started to feel little bit better after she ate some pizza and drink some water. Denies chance of today. REVIEW OF SYSTEMS: All other systems reviewed and negative except as listed in HPI. PHYSICAL EXAM: GENERAL: Vitals noted, no distress. Alert and oriented x 3. Non-toxic. CARDIAC: Regular rate, rhythm. No murmurs rubs or gallops. No JVD. PULMONARY: Lungs clear and equal bilaterally. No wheezes rales or rhonchi. No respiratory distress. EXTREMITIES: No peripheral edema. SKIN: No rash. Warm, dry, and intact. NEURO: No focal neurologic deficits. ED COURSE: This patient was seen and examined by myself independently. E-rx for zofran sent to pharmacy. We discussed starting doses for Paxil. She'll cut her pills in half and if still feels nauseated, will call her PCP for smaller dosing to start. She is discharged home in a stable condition with computer instructions given and is encouraged to return to the ER for any new or worsening symptoms. DIAGNOSTIC IMPRESSION: #1 nausea DISPOSITION Diagnosis/Annotation: ED Dx Name:Nausea Code:R11.0 Disposition: discharged CONSULT CRITICAL CARE TIME Is this a critically ill patient: no Electronic Signatures: Alie Flor ([employer]) (Signed 06-Nov-2022 19:03) Authored: HPI, PMH, MDM/ED Course, Clinical Impression, Attestation, Chart Review, Scores Last Updated: 06-Nov-2022 19:03 by Alie Flor ([employer]) References: 1. Data Referenced From Triage - ED 06-Nov-2022 18:48 Normal Merged With [facility] Risk Screen - Adult Emergenc yon 11-06-2022 Risk Screen - Adult Emergency Preferred Language: Preferred Language: Preferred Language for Discussing Health Care (patient/designee)Polish Patient Preferred Pharmacy: Patient Preferred Pharmacy Statement: I have reviewed and updated the patient's preferred pharmacy selection for today's visit. Advanced Directives: Advance Directive/DNRno Family Violence Adult: Abuse Screen: Are you or have you been threatened or abused physically, emotionally, or sexually by anyoneno Learning Assessment (Patient): Learning Assessment (Patient): Patient is Able to be Assessed for Learningyes Factors Influencing Readiness to Learnn/a Factors that Impact Ability to Learnnone Devices/Methods Used to Communicatenone Learning Preferencesverbal instruction Cultural Considerationsnone Developmental Considerationsnone Adventist Considerationsnone Learning Assessment (Other Learner): Learning Assessment (Other Learner): Other learner availableno Pressure Injury/TB/Substance: Pressure Injury: Do you have a coughno Smoking Statuslight user (uses <10 cig/day, OR <0.5 ppd, OR 1 can/pouch loose leaf tobacco per week, OR <0.5 vape pods per day) Tobacco Cessation Education (provide if tobacco use within the last 12 mos) patient declined Alcohol Useoccasionally Drug Usedenies Admission Risk Screen: Significant IndicatorsComplete CAGE: CAGE: Is this an injured patient [place] a [place] Center [place] [place]/[place]/ [place]): no Electronic Signatures: Vivian Allred (RN) (Signed 06-Nov-2022 18:52) Authored: Preferred Language, Patient Preferred Pharmacy, Advanced Directives, Family Violence Adult, Learning Assessment (Patient), Learning Assessment (Other Learner), Pressure Injury/TB/Substance, Pressure Injury, CAGE Last Updated: 06-Nov-2022 18:52 by Vivian Allred (RN) [facility] Triage - EDon 11-06-2022 Triage - ED Quick Triage: Are You no Have You Given In The Last 6 Weeksno Are You Currently Breastfeedingno Chart Review: PRIMARY ASSESSMENT ABCD Normal Findings: airway open and patent, circulation normal and alert and oriented ARRIVAL INFORMATION Means of Arrival: Ambulatory Mode of Arrival: private vehicle Arrival From: home Accompanied By: self Language: Spoken Language Preferred: Polish Reading Language Preferred: Polish Present on Arrival: Device Present on Arrival to ED: no CHIEF COMPLAINT LUZ HINOJOSA is a Female patient with a chief complaint of nausea (states she took her paxil at 1430, and hasn't taken in a month. then at 1500 she c/o nausea and dizziness. states she is feeling better now.). Triage Date/Time: 06-Nov-2022 18:36 CECE: 3 Pain Rating (0-10): 0 = None Vital Signs: Temperature: 97.8F ( 36.5C) taken temporal Blood Pressure: 133/79 Mean: Heart Rate: 92 Respiratory Rate: 18 Pulse Oximetry: 97% on room air, no respiratory support. Height: 5 feet 5.00 inches. 165.1 CM Weight: 120.1 pounds. Calculated 54.5 kg. (stated) Calculated BMI (kg/m2): 19.994 Calculated BSA (m2) 1.58 [place] Coma Scale: Best Eye Response: (E4) spontaneous Best Motor Response: (M6) obeys commands Best Verbal Response: (V5) oriented [place] Score: 15 Allergies: yes Last menstrual period: unknown SPECIFICATIONS CHECKER History: control Patient has homicidal thoughts: no Symptoms Are POSITIVE For: nausea. Symptoms Are Negative For: fever. Last Known Well: known Time Last Known Well Date/Time: 06-Nov-2022 Risk Screens Suicide Risk Screen In the Past Month: Have you wished you were or wished you could go to sleep and not wake up no In the Past Month: Have you had any actual thoughts of killing yourself no In Your Lifetime: Have you ever done anything, started to do anything, or prepared to do anything to end your life no Houser Fall Scale Screening Has the patient fallen before (or is the patient in the ED as a result of a fall) has not had a fall Does the patient have an impaired gait does not have impaired gait Is the patient cognitively impaired not cognitively impaired Interventions: Houser Fall Interventions: LOW INTERVENTIONS: *patient oriented to surroundings and call system, * patient/family falls education completed and documented, *patients fall status communicated during bedside handoff, *whiteboard updated, *mode of toileting discussed with patient, *bed in low position with brakes locked, *call light in reach, * non-skid footwear TRAVEL HISTORY Travel History Coronavirus Screening: no exposure or symptoms Travel Exposure History: NO travel to International locations in the past 30 days PAIN Pain Scale Used: RODRIGUEZ Pain Rating (0-10): 0 = None Past Medical History: Past Medical History Reviewedyes Electronic Signatures: Vivian Allred (ROXI) (Signed 06-Nov-2022 18:51) Entered: Risk Screens, Pain, Arrival, ABCD, Travel History, Chart Review, Scores, Past Medical History Authored: Quick Triage, Risk Screens, Pain, Arrival, ABCD, Travel History, Chart Review, Scores, Past Medical History Last Updated: 06-Nov-2022 18:51 by Vivian Allred (ROXI) Normal [facility]erged With [facility] BASIC METABOLIC PANELon -0 Anion gap [Moles/Vol] 11 mmol/L Normal 10 - 20 [facility] Comment on above: Performed By: #### B MP #### [place] [address] Calcium [Mass/Vol] 9.0 mg/dL Normal 8.6 - 10.3 [facility] Comment on above: Performed By: #### B MP #### [address] [address] Chloride [Moles/Vol] 105 mmol/L Normal 98 - 107 [facility] Comment on above: Performed By: #### B MP #### [address] [address] Creatinine [Mass/Vol] 0.73 mg/dL Normal 0.50 - 1.05 [facility] Comment on above: Performed By: #### B MP #### [address] [address] eGFR FEMALE >90 Normal >90 [facility] Comment on above: Result Comment: CALC ULATIONS OF ESTIMATED GFR ARE PERFORMED USING THE 2020 CKD-EPI STUDY REFIT EQUATION WITHOUT THE RACE VARIABLE FOR THE IDMS-TRACEABLE CREATININE METHODS. https://jasn.asnjournals.org/content//ASN.35031731 88 Performed By: #### B MP #### [address] [address] Glucose [Mass/Vol] 78 mg/dL Normal 74 - 99 [facility] Comment on above: Performed By: #### B MP #### [address] [address] HCO3 (Bld) [Moles/Vol] 27 mmol/L Normal 21 - 32 [facility] Comment on above: Performed By: #### B MP #### [address] [address] Potassium [Moles/Vol] 3.9 mmol/L Normal 3.5 - 5.3 [facility] Comment on above: Performed By: #### B MP #### [address] [address] Sodium [Moles/Vol] 139 mmol/L Normal 136 - 145 [facility] Comment on above: Performed By: #### B MP #### [address] [address] Urea nitrogen [Mass/Vol] 11 mg/dL Normal 6 - 23 [facility] Comment on above: Performed By: #### B MP #### [address] [address] CBC AND DIFFERENTIALon 08-24 % AUTOMATED IMMATURE GRAN 0.0 % Normal 0.0 - 0.9 [facility] Comment on above: Result Comment: Tammie ture Granulocyte Count (IG) includes promyelocytes, myelocytes and metamyelocytes but does not include bands. Percent differential counts (%) should be interpreted in the context of the absolute cell counts (cells/L). Performed By: #### U ARFX #### [address] [address] Basophils (Bld) [#/Vol] 0.04 10*3/uL Normal 0.00 - 0.10 [facility] Comment on above: Performed By: #### U ARFX #### [address] [address] Basophils/100 WBC (Bld) 0.5 % Normal 0.0 - 2.0 [facility] Comment on above: Performed By: #### U ARFX #### [address] [address] Eosinophils (Bld) [#/Vol] 0.08 10*3/uL Normal 0.00 - 0.70 [facility] Comment on above: Performed By: #### U ARFX #### [address] [address] Eosinophils/100 WBC (Bld) 1.1 % Normal 0.0 - 6.0 [facility] Comment on above: Performed By: #### U ARFX #### [address] [address] Erythrocyte distribution width (RBC) [Ratio] 11.3 % Low 11.5 - 14.5 [facility] Comment on above: Performed By: #### U ARFX #### [address] [address] Hematocrit (Bld) [Volume fraction] 41.9 % Normal 36.0 - 46.0 [facility] Comment on above: Performed By: #### U ARFX #### [address] [address] Hemoglobin (Bld) [Mass/Vol] 14.1 g/dL Normal 12.0 - 16.0 [facility] Comment on above: Performed By: #### U ARFX #### [address] [address] Lymphocytes (Bld) [#/Vol] 2.21 10*3/uL Normal 1.20 - 4.80 [facility] Comment on above: Performed By: #### U ARFX #### [address] [address] Lymphocytes/100 WBC (Bld) 29.6 % Normal 13.0 - 44.0 [facility] Comment on above: Performed By: #### U ARFX #### [address] [address] MCHC (RBC) [Mass/Vol] 33.7 g/dL Normal 32.0 - 36.0 [facility] Comment on above: Performed By: #### U ARFX #### [address] [address] MCV (RBC) [Entitic vol] 88 fL Normal 80 - 100 [facility] Comment on above: Performed By: #### U ARFX #### [address] [address] Monocytes (Bld) [#/Vol] 0.61 10*3/uL Normal 0.10 - 1.00 [facility] Comment on above: Performed By: #### U ARFX #### [address] [address] Monocytes/100 WBC (Bld) 8.2 % Normal 2.0 - 10.0 [facility] Comment on above: Performed By: #### U ARFX #### [address] [address] Neutrophils (Bld) [#/Vol] 4.53 10*3/uL Normal 1.20 - 7.70 [facility] Comment on above: Result Comment: Perc ent differential counts (%) should be interpreted in the context of the absolute cell counts (cells/L). Performed By: #### U ARFX #### [address] [address] Neutrophils/100 WBC (Bld) 60.6 % Normal 40.0 - 80.0 [facility] Comment on above: Performed By: #### U ARFX #### [address] [address] Platelets (Bld) [#/Vol] 286 10*3/uL Normal 150 - 450 [facility] Comment on above: Performed By: #### U ARFX #### [address] [address] RBC 4.79 x10E12/L Normal 4.00 - 5.20 [facility] Comment on above: Performed By: #### U ARFX #### [address] [address] WBC (Bld) [#/Vol] 7.5 10*3/uL Normal 4.4 - 11.3 [facility] Comment on above: Performed By: #### U ARFX #### [address] [address] HCG,BETA-QUANTITATIVEon HCG,BETA-QUANTITATI VE <2 Normal [facility] Comment on above: Result Comment: . Total HCG measurement is performed using the Tram Arline Access Immunoassay which detects intact HCG and free beta HCG subunit. . This test is not indicated for use as a tumor marker. HCG testing is performed using a different test methodology at [facility] than other [facility]. Direct result comparison should only be made within the same method. REF VALUES NON FEMALE <5 MALES <5 Performed By: #### H CGQU #### [address] [address] HCG,URINEon 08-24-2022 Beta HCG ( test) Ql (U) Negative Normal Negative [facility] Comment on above: Performed By: #### H CGU #### [address] [address] Provider Note - ED v3on Provider Note - ED v3 Provider Note: Chart Review: ED NOTES ED NOTES: CC=VAG BLEEDING HPI-is a 21-year-old female who has a history of heavy periods who was on the Depo-Provera shot and her last shot was 6 months ago did not get another 1 apparently had a normal period approximately week ago that lasted for 7 days now 7 days after she started having a second. With intermittent bleeding and some cramping she does not think that she is but she has never been before she is with the bleeding is eased up she has complaints of minimal dizziness she denies any dysuria frequency. She has had no nausea or vomiting. PM HX= Active Problems Problems Abnormal menses (626.9) (N92.6) Cigarette nicotine dependence (305.1) (F17.210) Dizziness (780.4) (R42) Generalized anxiety disorder with panic attacks (300.02,300.01) (F41.1,F41.0) GERD (gastroesophageal reflux disease) (530.81) (K21.9) Insomnia (780.52) (G47.00) Night sweats (780.8) (R61) Past Medical History Problems History of Influenza vaccination declined (V64.06) (Z28.21) No pertinent past medical history (V49.89) (Z78.9) Surgical History Problems History of [place] tooth extraction x 4 extracted 4 years ago Family History Mother Family history of Bipolar 1 disorder Father No pertinent family history Maternal Grandmother Family history of Family history of myocardial infarction (V17.3) (Z82.49) in her 40's Family history of type 2 diabetes mellitus (V18.0) (Z83.3) Social History Problems Cigarette nicotine dependence (305.1) (F17.210) Consumes alcohol occasionally (V49.89) (Z78.9) Does not use illicit drugs (V49.89) (Z78.9) Patient Name: LUZ HINOJOSA : 2000 Gender: Female Printed by , 08/24/2022 14:17:45 Page 3 of 4 Nicotine dependence due to vaping tobacco product (305.1) (F17.290) No advance directives (V49.89) (Z78.9) Allergi HISTORY OF PRESENTING ILLNESS LUZ is a 21 year old Female and was seen by me at 24-Aug-2022 14:16 for a chief complaint of vaginal bleeding (Patient to ED reference vaginal bleeding. Patient completed her period x 1 week prior and then 3 days ago started bleeding again with abdominal cramps/pain.)(1). Triage Information: Most recent Vital Sign Value Date Temp (F): 97.8 08-24-2022 14:15 Temp (C): 36.5 08-24-2022 14:15 Heart Rate (beats/min): 108 08-24-2022 14:15 Respirations (breaths/min): 14 08-24-2022 14:15 SpO2 (%): 100 08-24-2022 14:15 BP Systolic (mm Hg): 131 08-24-2022 14:15 BP Diastolic (mm Hg): 84 08-24-2022 14:15 PAST MEDICAL HISTORY ALLERGIES/INTOLERANCES: Allergy Allergen: clonidine Type: Drug Reaction: Hives/Urticaria HEALTH HISTORY: No documented data. OUTPATIENT MEDICATIONS: Home Medications Review Status for Reconciliation: Incomplete Med Status: Incomplete Medication History Drug Name: PARoxetine mesylate 40 mg oral tablet Instructions: 1 tab(s) orally once a day (in the morning) Drug Name: BuSpar 5 mg oral tablet Instructions: 1 tab(s) orally 3 times a day, As Needed Drug Name: omeprazole 20 mg oral delayed release capsule Instructions: 1 cap(s) orally once a day SIGNIFICANT EVENTS: Past Medical History Description:[place] teeth extraction REVIEW OF SYSTEMS CONSTITUTIONAL: Negative for: chills, diaphoresis, fever, malaise and weakness CARDIOVASCULAR: Negative for: chest pain and palpitations RESPIRATORY: Negative for: dyspnea GASTROINTESTINAL: ( PELVIC CRAMPS) Negative for: abdominal pain, diarrhea and vomiting; hematochezia and melena GENITOURINARY: POSITIVE for: vaginal bleeding; INTEGUMENTARY: Negative for: rash NEUROLOGICAL: POSITIVE for: dizziness; Negative for: loss of consciousness; HEME/LYMPH: Negative for: anemia and easy bleeding All other systems reviewed and are negative PHYSICAL EXAM CONSTITUTIONAL: Well appearing, well nourished, awake, alert, oriented to person, place, time/situation and in no apparent distress. HENMT: Airway patent, ears with clear tympanic membranes bilaterally. Nasal mucosa clear. Mouth with normal mucosa. Throat has no vesicles, no oropharyngeal exudates and uvula is midline. Face with no lymph node enlargement. EYES: Clear bilaterally, pupils equal, round and reactive to light. CARDIOVASCULAR: Normal rate, regular rhythm. Heart sounds S1, S2. No murmurs, rubs or gallops. PMI non-displaced. RESPIRATORY: Breath sounds clear and equal bilaterally. GASTROINTESTINAL: Abdomen soft, non-distended, no rebound, no guarding. Bowel sounds normal in all 4 quadrants. MUSCULOSKELETAL: Spine appears normal, range of motion is not limited, no muscle or joint tenderness. NEUROLOGICAL: Alert and oriented, no focal deficits, no motor or sensory deficits. SKIN: Skin normal color for race, warm, dry and intact. No evidence of trauma. PSYCHIATRIC: Alert and oriented to person, place, time/situation. normal mood and affect. N (more content not included)... Normal [facility]erged [facility] Risk Screen - Adult Emergenc n 08-24-2022 Risk Screen - Adult Emergency Preferred Language: Preferred Language: Preferred Language for Discussing Health Care (patient/designee)Polish Patient Preferred Pharmacy: Patient Preferred Pharmacy Statement: I have reviewed and updated the patient's preferred pharmacy selection for today's visit. Advanced Directives: Advance Directive/DNRno Family Violence Adult: Abuse Screen: Are you or have you been threatened or abused physically, emotionally, or sexually by anyoneno Learning Assessment (Patient): Learning Assessment (Patient): Patient is Able to be Assessed for Learningyes Factors Influencing Readiness to Learnna Factors that Impact Ability to Learnnone Devices/Methods Used to Communicatenone Learning Preferencesverbal instruction; written material Cultural Considerationsnone Developmental Considerationsnone Adventist Considerationsnone Learning Assessment (Other Learner): Learning Assessment (Other Learner): Other learner availableno Pressure Injury/TB/Substance: Pressure Injury: Pressure Injury Present on Admissionno Do you have a coughno Smoking Statuslight user (uses <10 cig/day, OR <0.5 ppd, OR 1 can/pouch loose leaf tobacco per week, OR <0.5 vape pods per day) Tobacco Cessation Education (provide if tobacco use within the last 12 mos) patient declined Alcohol Usedenies Drug Usedenies Drug 2 Usedenies Admission Risk Screen: Significant IndicatorsComplete CAGE: CAGE: Is this an [place] a [place] [place]/ [place]): no Electronic Signatures: Ruthann Aguilera (ROXI) (Signed 24-Aug-2022 16:09) Authored: Preferred Language, Patient Preferred Pharmacy, Advanced Directives, Family Violence Adult, Learning Assessment (Patient), Learning Assessment (Other Learner), Pressure Injury/TB/Substance, Pressure Injury, CAGE Last Updated: 24-Aug-2022 16:09 by Ruthann Aguilera (ROXI) [facility] Triage - EDon 08-24-2022 Triage - ED Quick Triage: Are You maybe Have You Given In The Last 6 Weeksno Are You Currently Breastfeedingno The patient and/or guardian verbally acknowledges placement for services into the following (when Urgent Care Service hours are operating):emergency department Chart Review: ARRIVAL INFORMATION Mode of Arrival: private vehicle CHIEF COMPLAINT LUZ HINOJOSA is a Female patient with a chief complaint of vaginal bleeding (Patient to ED reference vaginal bleeding. Patient completed her period x 1 week prior and then 3 days ago started bleeding again with abdominal cramps/pain.). Onset of the Complaint: 21-Aug-2022 Triage Date/Time: 24-Aug-2022 14:15 CECE: 3 Pain Rating (0-10): 4 = Moderate Acceptable Pain Level (0-10): 2 Pain location: abd pelvis Vital Signs: Temperature: 97.8F ( 36.5C) taken temporal Blood Pressure: 131/84 Mean: Heart Rate: 108 Respiratory Rate: 14 Pulse Oximetry: 100% on room air, no respiratory support. Height: 5 feet 5.00 inches. 165.1 CM Weight: 120.1 pounds. Calculated 54.5 kg. (stated) Calculated BMI (kg/m2): 19.994 Calculated BSA (m2) 1.58 [place] Coma Scale: Best Eye Response: (E4) spontaneous Best Motor Response: (M6) obeys commands Best Verbal Response: (V5) oriented Justus Score: 15 [place] Assessment Qualifiers: patient not sedated/intubated Cough lasting greater than 3 weeks: no Patient immunocompromised related to: N/A Allergies: yes Last menstrual period: 24-Aug-2022 (Also had bleeding 1 wk ago) Patient has homicidal thoughts: no Symptoms Are POSITIVE For: abdominal cramp and vaginal bleeding. Risk Screens Suicide Risk Screen In the Past Month: Have you wished you were or wished you could go to sleep and not wake up no In the Past Month: Have you had any actual thoughts of killing yourself no In Your Lifetime: Have you ever done anything, started to do anything, or prepared to do anything to end your life no Houser Fall Scale Screening Has the patient fallen before (or is the patient in the ED as a result of a fall) has not had a fall Does the patient have an impaired gait does not have impaired gait Is the patient cognitively impaired not cognitively impaired Interventions: Houser Fall Interventions: LOW INTERVENTIONS: *patient oriented to surroundings and call system, * patient/family falls education completed and documented, *patients fall status communicated during bedside handoff, *whiteboard updated, *mode of toileting discussed with patient, *bed in low position with brakes locked, *call light in reach, * non-skid footwear TRAVEL HISTORY Travel History Coronavirus Screening: no exposure or symptoms Travel Exposure History: NO travel to International locations in the past 30 days PAIN Pain Scale Used: RODRIGUEZ Pain Rating (0-10): 4 = Moderate Acceptable Pain Level (0-10): 2 Past Medical History: Past Medical History Reviewedyes [place] teeth extraction: Past Medical History, Active Electronic Signatures: Johnny Potter (EMT-P) (Signed 24-Aug-2022 14:18) Entered: Risk Screens, Pain, Travel History, Chart Review, Scores Authored: Quick Triage, Risk Screens, Pain, Travel History, Chart Review, Scores Ruthann Aguilera (RN) (Signed 24-Aug-2022 16:07) Authored: Quick Triage, Pain, Chart Review, Past Medical History Last Updated: 24-Aug-2022 16:07 by Ruthann Aguilera (ROXI) Normal M[facility]ed [facility] UA MICROSCOPICon 08-24-2022 BACTERIA 1+ /HPF Abnormal [facility] Comment on above: Performed By: #### U [place]IC ####[place] [address] RBC 83 /HPF Abnormal 0-5 [facility] Comment on above: Performed By: #### U AMIC ####[place] [address] SQUAMOUS EPITH. CELLS 11 /HPF Normal [facility] Comment on above: Performed By: #### U AMIC ####[place] [address] WBC 7 /HPF Abnormal 0-5 [facility] Comment on above: Performed By: #### U AMIC ####[place] [address] URINALYSISon 08-24-2022 Appearance (U) HAZY Normal CLEAR [facility] Comment on above: Performed By: #### U ARFX #### [place] [address] Bilirubin Ql (U) Negative Normal NEGATIVE [facility] Comment on above: Performed By: #### U ARFX #### [place] [address] Color (U) Yellow Normal STRAW,YELLOW [facility] Comment on above: Performed By: #### U ARFX #### [place] [address] Glucose Ql (U) Negative Normal NEGATIVE [facility] Comment on above: Performed By: #### U ARFX #### [place] [address] Hemoglobin Ql (U) LARGE(3+) Abnormal NEGATIVE [facility] Comment on above: Performed By: #### U ARFX #### [place] [address] Ketones Ql (U) Negative Normal NEGATIVE [facility] Comment on above: Performed By: #### U ARFX #### [place] [address] Leukocyte esterase Test strip Ql (U) Negative Normal NEGATIVE [facility] Comment on above: Performed By: #### U ARFX #### [place] [address] Nitrite Ql (U) Negative Normal NEGATIVE [facility] Comment on above: Performed By: #### U ARFX #### [place] [address] pH (U) 7.0 [pH] Normal 5.0 - 8.0 [facility] Comment on above: Performed By: #### U ARFX #### [address] [address] Protein Ql (U) 30(1+) Abnormal NEGATIVE [facility] Comment on above: Performed By: #### U ARFX #### [address] [address] Specific gravity (U) [Rel density] 1.018 Normal 1.005 - 1.035 [facility]ed [facility] Comment on above: Performed By: #### U ARFX #### [address] [address] Urobilinogen (U) [Mass/Vol] mg/dL Normal 0.0 - 1.9 [facility] Comment on above: Performed By: #### U ARFX #### [address] [address] Office Visit (Internal Medic ine)on 08-03-2022 Follow-up visit Diagnoses/Problems Assessed Anxiety (300.00) (F41.9) Weight gain (783.1) (R63.5) Abnormal menses (626.9) (N92.6) Depression screening negative (V79.0) (Z13.31) Orders Abnormal menses, Night sweats T3 - Free Triiodothyronine, Serum; Status:Active; Requested for:[id number]; Perform:Lab Services - Lab To Draw (Blood Test); Due:13Dec2022;Ordered; For:Abnormal menses, Night sweats; Ordered By:Kemi Echevarria; T4 - Free Thyroxine, Serum; Status:Active; Requested for:[id number]; Perform:Lab Services - Lab To Draw (Blood Test); Due:13Dec2022;Ordered; For:Abnormal menses, Night sweats; Ordered By:Kemi Echevarria; TSH - Thyroid Stimulating Hormone, Serum; Status:Active; Requested for:[id number]; Perform:Lab Services - Lab To Draw (Blood Test); Due:13Dec2022;Ordered; For:Abnormal menses, Night sweats; Ordered By:Kemi Echevarria; Generalized anxiety disorder with panic attacks Renew: PARoxetine HCl - 40 MG Oral Tablet; TAKE 1 TABLET DAILY Rx By: Kemi Echevarria; Dispense: 90 Days ; #:90 Tablet; Refill: 3;For: Generalized anxiety disorder with panic attacks; CATE = N; Verified Transmission to [facility]; Last Updated By: Cortez Klein; 08/03/2022 11:40:41 AM Patient Discussion/Summary 6 WEEKS (WITH JORDYN) TSH, FREE TE , FREE T4 Provider Impressions OFFERED REFERRAL FOR COUNSELING ,PT REFUSED. ADVISED TO TAKE THE PRN BUSPAR FOR ANXIETY , PAXIL IS INCREASED TO 40 MG DAILY. ADVISED FOR RELAXATION TECHNIQUES. ADVISED FOR REGULAR DAILY EXERCISE . ADVISED TO FOLLOW THE LOW FAT, LOW CALORIE DIET AND TO EAT SMALLER PORTIONS MORE FREQUENT SERVINGS. ADVISED TO CUT DOWN ON CAFFEINE. Chief Complaint Pt here to discuss meds. States she has been having really bad mood swings x 4 months and wants to discuss her options. History of Present IllnessANXIETY , NO PANIC ATTACKS SINCE LAST VISIT.. HASN'T BEEN TAKING THE PRN BUSPAR . CONTROL TX WAS STOPPED SEVERAL MONTHS AGO BUT MENSES ARE NOT BACK MONTHLY..WEIGHT GAIN. Review of Systems Constitutional: not feeling poorly, no fever, no recent weight gain, no recent weight loss and as noted in HPI. Eyes: no blurred vision and no diplopia. ENT: no hearing loss, no tinnitus, no earache, no sore throat, no hoarseness and no swollen glands in the neck. Cardiovascular: no chest pain, no tightness or heavy pressure, no shortness of breath, no palpitations and no lower extremity edema. Respiratory: no cough, not coughing up sputum and no wheezing that is consistent with asthma. Gastrointestinal: no change in bowel habits, no diarrhea, no constipation, no bloody stools, no nausea, no vomiting, no abdominal pain, no signs and symptoms of ulcer disease, no ceci colored stools and no intolerance to fatty foods. Genitourinary: no urinary frequency, no dysuria, no burning sensation during urination and no hematuria. Musculoskeletal: no arthralgias, no joint stiffness, no muscle weakness, no back pain and no difficulty walking. Skin: no rashes, no change in skin color and pigmentation, no skin lesions and no skin lumps. Neurological: no headaches, no dizziness, no seizures, no tingling, no numbness, no signs and symptoms of stroke and no limb weakness. Psychiatric: no confusion, no memory lapses or loss, no depression, no sleep disturbances and as noted in HPI. Endocrine: no goiter, no thyroid disorder, no diabetes mellitus, no excessive thirst, no dry skin, no cold intolerance, no heat intolerance and no increased urinary frequency. Hematologic/Lymphatic: is not slow to heal, does not bleed easily, does not bruise easily, no thrombophlebitis, no anemia and no history of blood transfusion. All other systems have been reviewed and are negative for complaint. Active Problems Problems Abnormal menses (626.9) (N92.6) Cigarette nicotine dependence (305.1) (F17.210) Dizziness (780.4) (R42) Generalized anxiety disorder with panic attacks (300.02,300.01) (F41.1,F41.0) GERD (gastroesophageal reflux disease) (530.81) (K21.9) Insomnia (780.52) (G47.00) Night sweats (780.8) (R61) Past Medical History Problems History of Influenza vaccination declined (V64.06) (Z28.21) No pertinent past medical history (V49.89) (Z78.9) Surgical History Problems History of [place] tooth extraction x 4 extracted 4 years ago Family History Mother Family history of Bipolar 1 disorder Father No pertinent family history Maternal Grandmother Family history of Family history of myocardial infarction (V17.3) (Z82.49) in her 40's Family history of type 2 diabetes mellitus (V18.0) (Z83.3) Social History Problems Cigarette nicotine dependence (305.1) (F17.210) Consumes alcohol occasionally (V49.89) (Z78.9) Does not use illicit drugs (V49.89) (Z78.9) Nicotine dependence due to vaping tobacco product (305.1) (F17.290) No advance directives (V49.89) (Z78.9) Allergies Medication clonidine Allergy; Hives;; Updated By: Alma Mckeon; 03/03/2022 2:28:14 P (more content not included)... Normal [facility] Tobacco Screening.on 01-12-2 023 Tobacco use status [facility] a) Yes [facility] Work Phone: Tobacco Screening. Yes [facility] Work Phone: IO HCG, Urine Test on 06-14-2022 HCG ( test) Ql (U) Negative [facility] Work Phone: Office Visit (Internal Medic ine)on 06-14-2022 Follow-up visit Diagnoses/Problems Assessed Abnormal menses (626.9) (N92.6) Orders Abnormal menses Gynecology Referral Evaluation and Treatment Evaluate AND Treat Status: Complete Done: 14Jun2022 Ordered;For: Abnormal menses; Ordered By: Jordyn Thakur Performed: Due: [id number]; Last Updated By: Melvi Meyers; 06/14/2022 4:00:47 PM 08-10-2022 at 1 with jocelyne bae IO HCG, Urine Test; Status:Complete; Done: 14Jun2022 04:05PM Performed:In Office; Due:[id number];Ordered; For:Abnormal menses; Ordered By:Jordyn Thakur; Patient Discussion/Summary F/U BEFORE REFER TO OBGYN Provider Impressions PLEASE MONITOR CLOSELY FOR ANY UNTOWARD SIDE EFFECTS OR COMPLICATIONS OF MEDICATIONS. PATIENT IS STRONGLY ADVISED TO BE COMPLIANT WITH RECOMMENDATIONS. QUESTIONS AND CONCERNS WERE ADDRESSED. INSTRUCTED TO CALL, RETURN SOONER, OR GO TO THE ER, IF SYMPTOMS PERSIST OR WORSEN. THEY VOICED UNDERSTANDING AND DENIES FURTHER QUESTIONS AT THIS TIME. TIME CODE 1. PREPARATION FOR PATIENT'S VISIT (REVIEWING CHART, CURRENT MEDICAL RECORDS, OUTSIDE HEALTH PROVIDER RECORDS, PREVIOUS HISTORY, EXAM, TEST, PROCEDURE, AND MEDICATIONS) 2. FACE TO FACE ENCOUNTER OBTAINING HISTORY FROM THE PATIENT/FAMILY/CAREGIVERS ; PERFORMING EVALUATION AND EXAMINATION; ORDERING TESTS OR PROCEDURES; REFERRING AND COMMUNICATING WITH OTHER HEALTHCARE PROVIDERS; COUNSELING AND EDUCATION OF THE PATIENT/FAMILY/CAREGIVERS ; INDEPENDENTLY INTERPRETING RESULTS (TESTS, LABS, PROCEDURES, IMAGING) AND COMMUNICATING AND EXPLAINING RESULTS TO THE PATIENT/FAMILY/CAREGIVERS 3. COORDINATION OF CARE; PREPARING AND PRINTING DISCHARGE INSTRUCTIONS AND ANY EDUCATIONAL MATERIAL FOR THE PATIENT/FAMILY/CAREGIVERS . DOCUMENTING CLINICAL INFORMATION IN THE ELECTRONIC MEDICAL RECORD 4. REVIEWING OARRS NEEDED MDM 1) COMPLEXITY: 1 ACUTE ILLNESS, 1 STABLE CHRONIC CONDITION, OR 2 MINOR PROBLEMS ADDRESSED 2)DATA: TESTS INTERPRETED AND OR ORDERED, TOOK INDEPENDENT HISTORY OR RECORDS REVIEWED 3)RISK: LOW RISK DUE TO NATURE OF MEDICAL CONDITIONS/COMORBIDITY OR MEDICATIONS ORDERED OR SURGICAL OR PROCEDURE REFERRAL Chief Complaint C/O SOME SPOTTING SUNDAY AND SUNDAY WHEN WIPING WITH LOWER ABD CRAMPING. NEG TEST AND UNPROTECTED SEX History of Present IllnessPresents today for C/O SPOTTING FOR SEVERAL DAYS modifying factors consists of STOPPED THE DEPO SHOT WAS NOVEMBER 2021. SHE HAS NOT RESUMED HER PERIODS. NEGATIVE HOME TEST associated symptoms consist of CRAMPING ON/OFF prior treatment consists of medication NONE Review of Systems Constitutional: not feeling poorly, no fever, no recent weight gain, no recent weight loss and no chills. Eyes: no blurred vision, no diplopia and no eyesight problems. ENT: no hearing loss, no tinnitus, no earache, no sore throat, no hoarseness, no swollen glands in the neck and no nosebleeds. Cardiovascular: no chest pain, no tightness or heavy pressure, no shortness of breath, no palpitations and no lower extremity edema. Respiratory: no cough, not coughing up sputum, no wheezing that is consistent with asthma and no shortness of breath during exertion. Gastrointestinal: no change in bowel habits, no diarrhea, no constipation, no bloody stools, no nausea, no vomiting, no abdominal pain, no signs and symptoms of ulcer disease, no ceci colored stools and no intolerance to fatty foods. Genitourinary: unexplained vaginal bleeding, but no urinary frequency, no dysuria, no burning sensation during urination, no hematuria, no incontinence and no pelvic pain. Musculoskeletal: no arthralgias, no joint stiffness, no muscle weakness, no back pain and no difficulty walking. Skin: no rashes, no change in skin color and pigmentation, no skin lesions and no skin lumps. Neurological: no headaches, no dizziness, no seizures, no tingling, no numbness, no signs and symptoms of stroke and no limb weakness. Psychiatric: no confusion, no memory lapses or loss, no depression, no sleep disturbances, no anxiety and not suicidal. 10 SYSTEMS REVIEWED AND NEGATIVE, WHICH THE EXCEPTION OF HPI LISTED ABOVE Active Problems Problems Cigarette nicotine dependence (305.1) (F17.210) Dizziness (780.4) (R42) Generalized anxiety disorder with panic attacks (300.02,300.01) (F41.1,F41.0) GERD (gastroesophageal reflux disease) (530.81) (K21.9) Insomnia (780.52) (G47.00) Night sweats (780.8) (R61) Past Medical History Problems History of Influenza vaccination declined (V64.06) (Z28.21) No pertinent past medical history (V49.89) (Z78.9) Surgical History Problems History of [place] tooth extraction x 4 extracted 4 years ago Family History Mother Family history of Bipolar 1 disorder Father No pertinent family history Maternal Grandmother Family history of Family history of myocardial infarction (V17.3) (Z82.49) in her 40's Family history of type 2 diabetes mellitus (V18.0) (Z83.3) Social History Problems Cigarette nicotine dependence (305.1) (F17.210) (more content not included)... Normal [facility] Tobacco Screening.on 022 Fall risk assessment a) No falls within the last year [facility] Work Phone: Tobacco use status [facility] a) Yes [facility] Work Phone: Tobacco Screening. Yes [facility] Work Phone: XR FINGER(S) LEFT 2+ VIEWSon 06-07-2022 XR FINGER(S) LEFT 2+ VIEWS EXAMINATION: XR FINGER(S) LEFT 2+ VIEWS 06/07/2022 3:22 PM HISTORY: ORDERING SYSTEM PROVIDED HISTORY: Followup exam, TECHNOLOGIST PROVIDED HISTORY: Injury/Trauma Reason for Exam: F/u left 3rd digit fx Cancer History: N Surgery, Radiation History: N Encounter Type: Subsequent/Followup Mechanism of Injury: Fx ORDERING SYSTEM PROVIDED DIAGNOSIS CODES: Z09 Follow-up exam COMPARISON: 05/10/2022 IMPRESSION: FINDINGS/ Redemonstration of a nondisplaced fracture at the base of the 3rd distal phalanx. There is minimal callous formation. SEJAL/vrs Workstation ID: [id number] Dictated by: MAYELIN LANDRY on SunJun 07, 2022 7:25:17 PM EST Transcribed by: MYRNA GOODMAN on SunJun 07, 2022 7:40:20 PM EST Finalized by: MAYELIN LANDRY on SunJun 08, 2022 9:26:59 AM EST Normal [facility] Comment on above: Order Comment: Attn 3rd digit Injury/Trauma or Illness?:Injury/Trauma How long have you had these symptoms (acute/chronic)?:Acute Reason for exam?:f/u left 3rd digit fx History of cancer?:n Surgeries, chemotherapy, or radiation?:n Type of Exam?:Subsequent/Follow-up Mechanism of injury?:fx Office Visit (Internal Medic ine)on 06-06-2022 Follow-up visit Diagnoses/Problems Assessed Generalized anxiety disorder with panic attacks (300.02,300.01) (F41.1,F41.0) Orders Generalized anxiety disorder with panic attacks Renew: busPIRone HCl - 5 MG Oral Tablet; TAKE 1 TABLET 3 times daily PRN anxiety Rx By: Jordyn Ramirez; Dispense: 30 Days ; #:90 Tablet; Refill: 5;For: Generalized anxiety disorder with panic attacks; CATE = N; Verified Transmission to [facility]; Last Updated By: Latoya Beatpack[employer]davidaBrabe[employer]; 06/06/2022 2:28:43 PM Renew: PARoxetine HCl - 30 MG Oral Tablet; TAKE 1 TABLET DAILY Rx By: Jordyn Ramirez; Dispense: 90 Days ; #:90 Tablet; Refill: 1;For: Generalized anxiety disorder with panic attacks; CATE = N; Verified Transmission to [facility]; Last Updated By: [email or web address]; 06/06/2022 2:28:49 PM Patient Discussion/Summary AUGUST WITH LABS LETTER Provider Impressions PLEASE MONITOR CLOSELY FOR ANY UNTOWARD SIDE EFFECTS OR COMPLICATIONS OF MEDICATIONS. PATIENT IS STRONGLY ADVISED TO BE COMPLIANT WITH RECOMMENDATIONS. QUESTIONS AND CONCERNS WERE ADDRESSED. INSTRUCTED TO CALL, RETURN SOONER, OR GO TO THE ER, IF SYMPTOMS PERSIST OR WORSEN. THEY VOICED UNDERSTANDING AND DENIES FURTHER QUESTIONS AT THIS TIME. TIME CODE 1. PREPARATION FOR PATIENT'S VISIT (REVIEWING CHART, CURRENT MEDICAL RECORDS, OUTSIDE HEALTH PROVIDER RECORDS, PREVIOUS HISTORY, EXAM, TEST, PROCEDURE, AND MEDICATIONS) 2. FACE TO FACE ENCOUNTER OBTAINING HISTORY FROM THE PATIENT/FAMILY/CAREGIVERS ; PERFORMING EVALUATION AND EXAMINATION; ORDERING TESTS OR PROCEDURES; REFERRING AND COMMUNICATING WITH OTHER HEALTHCARE PROVIDERS; COUNSELING AND EDUCATION OF THE PATIENT/FAMILY/CAREGIVERS ; INDEPENDENTLY INTERPRETING RESULTS (TESTS, LABS, PROCEDURES, IMAGING) AND COMMUNICATING AND EXPLAINING RESULTS TO THE PATIENT/FAMILY/CAREGIVERS 3. COORDINATION OF CARE; PREPARING AND PRINTING DISCHARGE INSTRUCTIONS AND ANY EDUCATIONAL MATERIAL FOR THE PATIENT/FAMILY/CAREGIVERS . DOCUMENTING CLINICAL INFORMATION IN THE ELECTRONIC MEDICAL RECORD 4. REVIEWING OARRS NEEDED MDM 1) COMPLEXITY: 1 ACUTE ILLNESS, 1 STABLE CHRONIC CONDITION, OR 2 MINOR PROBLEMS ADDRESSED 2)DATA: TESTS INTERPRETED AND OR ORDERED, TOOK INDEPENDENT HISTORY OR RECORDS REVIEWED 3)RISK: LOW RISK DUE TO NATURE OF MEDICAL CONDITIONS/COMORBIDITY OR MEDICATIONS ORDERED OR SURGICAL OR PROCEDURE REFERRAL Chief Complaint DISCUSS EMOTIONAL SUPPORT DOGS (2). DECLINES FLU VACCINE History of Present IllnessPresents today for DISCUSS EMOTIONAL SUPPORT ANIMAL R/T ANXIETY. NO NEW COMPLAINTS ANXIETY- STABLE. MED REFILL Review of Systems Constitutional: not feeling poorly, no fever, no recent weight gain, no recent weight loss and no chills. Eyes: no blurred vision, no diplopia and no eyesight problems. ENT: no hearing loss, no tinnitus, no earache, no sore throat, no hoarseness, no swollen glands in the neck and no nosebleeds. Cardiovascular: no chest pain, no tightness or heavy pressure, no shortness of breath, no palpitations and no lower extremity edema. Respiratory: no cough, not coughing up sputum, no wheezing that is consistent with asthma and no shortness of breath during exertion. Gastrointestinal: no change in bowel habits, no diarrhea, no constipation, no bloody stools, no nausea, no vomiting, no abdominal pain, no signs and symptoms of ulcer disease, no ceci colored stools and no intolerance to fatty foods. Genitourinary: no urinary frequency, no dysuria, no burning sensation during urination, no hematuria, no incontinence and no pelvic pain. Musculoskeletal: no arthralgias, no joint stiffness, no muscle weakness, no back pain and no difficulty walking. Skin: no rashes, no change in skin color and pigmentation, no skin lesions and no skin lumps. Neurological: no headaches, no dizziness, no seizures, no tingling, no numbness, no signs and symptoms of stroke and no limb weakness. Psychiatric: no confusion, no memory lapses or loss, no depression, no sleep disturbances, no anxiety and not suicidal. 10 SYSTEMS REVIEWED AND NEGATIVE, WHICH THE EXCEPTION OF HPI LISTED ABOVE Active Problems Problems Cigarette nicotine dependence (305.1) (F17.210) Dizziness (780.4) (R42) Generalized anxiety disorder with panic attacks (300.02,300.01) (F41.1,F41.0) GERD (gastroesophageal reflux disease) (530.81) (K21.9) Insomnia (780.52) (G47.00) Missed period (626.4) (N92.6) Night sweats (780.8) (R61) Past Medical History Problems No pertinent past medical history (V49.89) (Z78.9) Surgical History Problems History of [place] tooth extraction x 4 extracted 4 years ago Family History Mother Family history of Bipolar 1 disorder Father No pertinent family history Maternal Grandmother Family history of Family history of myocardial infarction (V17.3) (Z82.49) in her 40's Family history of type 2 diabetes mellitus (V18.0) (Z83.3) Social History Problems Cigarette nicotine dependence (305.1) (F17.210) Consumes al (more content not included)... Normal [facility] Tobacco Screening.on 022 Fall risk assessment a) No falls within the last year [facility] Work Phone: Tobacco use status [facility] a) Yes [facility] Work Phone: Tobacco Screening. Yes [facility] Work Phone: XR HAND LEFT 3+ VIEWS (STAND MANNY)on 05-10-2022 XR HAND LEFT 3+ VIEWS (STANDARD) EXAMINATION: XR HAND LEFT 3+ VIEWS (STANDARD) 05/10/2022 2:08 PM HISTORY: ORDERING SYSTEM PROVIDED HISTORY: Pain, TECHNOLOGIST PROVIDED HISTORY: Injury/Trauma Reason for Exam: F/u closed nondisplaced fracture of distal phalanx of left middle finger Cancer History: N Surgery, Radiation History: N Encounter Type: Subsequent/Followup Mechanism of Injury: Wrestling on 04/23 ORDERING SYSTEM PROVIDED DIAGNOSIS CODES: R52 Pain COMPARISON: 04/24/2022 FINDINGS: Three views. Avulsion fracture at the ulnar-sided corner of the base of the 3rd distal phalanx, unchanged in alignment or appearance. No bridging callus. The remainder of the hand and wrist is intact and unchanged/unremarkable. No soft tissue gas collection or foreign body. IMPRESSION: 1. No change in the radiographic appearance of the fracture of the base of the 3rd distal phalanx. PRL/vrs Workstation ID: [id number] Dictated by: GAURI BLANCA on Sat May 13, 2022 6:52:11 PM EDT Transcribed by: MYRNA GOODMAN on Sat May 13, 2022 8:00:17 PM EDT Finalized by: GAURI BLANCA on Sun May 14, 2022 8:49:48 AM EDT Normal [facility] Comment on above: Order Comment: Injur y/Trauma or Illness?:Injury/Trauma How long have you had these symptoms (acute/chronic)?:Acute Reason for exam?:f.u Closed nondisplaced fracture of distal phalanx of left middle finger History of cancer?:n Surgeries, chemotherapy, or radiation?:n Type of Exam?:Subsequent/Follow-up Mechanism of injury?:wrestling on 04/23 HCG, Beta Quantitativeon HCG.beta subunit Qn m[IU]/mL [facility] Work Phone: Comment on above: Low-level positive H CG results can be seen in early , in cj- or post-menopausal females due to normal pituitary HCG production, or with analytic interference. Repeat testing in 48-72 hours can aid in assessing for as results should double in this time period. FSH measurement is recommended in cj- or post-menopausal females as concurrent elevation of FSH can support pituitary production as the source of the HCG elevation.. Total HCG measurement is performed using the [employer] Access Immunoassay which detects intact HCG and free beta HCG subunit. This test is not indicated for use as a tumor marker. HCG testing is performed using a different test methodology at [facility] than other [facility]. Direct result comparison should only be made within the same method. REF VALUESNON FEMALE <5MALES <5 HCG,BETA-QUANTITATIVEon 04-22 HCG,BETA-QUANTITATI VE <2 Normal [facility] Comment on above: Result Comment: Low- level positive HCG results can be seen in early , in cj- or post-menopausal females due to normal pituitary HCG production, or with analytic interference. Repeat testing in 48-72 hours can aid in assessing for as results should double in this time period. FSH measurement is recommended in cj- or post-menopausal females as concurrent elevation of FSH can support pituitary production as the source of the HCG elevation. . Total HCG measurement is performed using the [employer] Access Immunoassay which detects intact HCG and free beta HCG subunit. This test is not indicated for use as a tumor marker. HCG testing is performed using a different test methodology at [facility] than other [facility]. Direct result comparison should only be made within the same method. REF VALUES NON FEMALE <5 MALES <5 Performed By: #### H CGQU #### [facility] [address] [place] [address] Office Visit (Internal Medic ine)on 05-02-2022 Follow-up visit Diagnoses/Problems Assessed Missed period (626.4) (N92.6) Night sweats (780.8) (R61) Dizziness (780.4) (R42) Insomnia (780.52) (G47.00) Orders Missed period HCG, Beta Quantitative; Status:In Progress - Specimen/Data Collected; Done: 02May2022 Perform:Lab Services - Lab To Draw (Blood Test); Due:31Jul2022;Ordered; For:Missed period; Ordered By:Kemi Echevarria; Patient Discussion/Summary 3 WEEKS. Provider Impressions PT IS COUNSELED ABOUT THE DIFFERENTIAL DX AND TX OF NIGHT SWEATS. EXPLAINED HAVE TO R/O . ADVISED TO CUT DOWN ON CAFFEINE AND TO DRINK MORE WATER. ADVISED FOR REGULAR DAILY EXERCISE . ADVISED TO AVOID TAKING NAPS DURING THE DAY TIME AND TO CUT DOWN ON CAFFEINE. ADVISED TO START OTC MELATONIN 1 MG Q HS AND TO INCREASE IT BY 0.5 MG Q WEEK FOR MAXIMUM OF 5 MG Q HS PRN. Chief Complaint HAVING PROBLEMS SLEEPING. WAKING UP W BODY SWEATY, BUT COLD. WAKES UP DIZZY SOMETIMES. History of Present IllnessINCONSISTENT SLEEP AT NIGHT SEVERAL TIMES / WEEK . WAKES UP WITH COLD SWEATS., AND DIZZINESS.0N AND OFF. MISSED PERIOD , LAST ONE WAS 2 MONTHS AGO. STOPPED GETTING DEPO SHOT ALMOST 2.5 MONTHS AGO. Review of Systems Constitutional: not feeling poorly, no fever, no recent weight gain and no recent weight loss. Eyes: no blurred vision and no diplopia. ENT: no hearing loss, no tinnitus, no earache, no sore throat, no hoarseness and no swollen glands in the neck. Cardiovascular: no chest pain, no tightness or heavy pressure, no shortness of breath, no palpitations and no lower extremity edema. Respiratory: no cough, not coughing up sputum and no wheezing that is consistent with asthma. Gastrointestinal: no change in bowel habits, no diarrhea, no constipation, no bloody stools, no nausea, no vomiting, no abdominal pain, no signs and symptoms of ulcer disease, no ceci colored stools and no intolerance to fatty foods. Genitourinary: no urinary frequency, no dysuria, no burning sensation during urination and no hematuria. Musculoskeletal: no arthralgias, no joint stiffness, no muscle weakness, no back pain and no difficulty walking. Skin: no rashes, no change in skin color and pigmentation, no skin lesions and no skin lumps. Neurological: no headaches, no dizziness, no seizures, no tingling, no numbness, no signs and symptoms of stroke and no limb weakness. Psychiatric: no confusion, no memory lapses or loss, no depression, no sleep disturbances and as noted in HPI. Endocrine: no goiter, no thyroid disorder, no diabetes mellitus, no excessive thirst, no dry skin, no cold intolerance, no heat intolerance, no increased urinary frequency and as noted in HPI. Hematologic/Lymphatic: is not slow to heal, does not bleed easily, does not bruise easily, no thrombophlebitis, no anemia and no history of blood transfusion. All other systems have been reviewed and are negative for complaint. Active Problems Problems Cigarette nicotine dependence (305.1) (F17.210) Generalized anxiety disorder with panic attacks (300.02,300.01) (F41.1,F41.0) GERD (gastroesophageal reflux disease) (530.81) (K21.9) Past Medical History Problems No pertinent past medical history (V49.89) (Z78.9) Surgical History Problems History of [place] tooth extraction x 4 extracted 4 years ago Family History Mother Family history of Bipolar 1 disorder Father No pertinent family history Maternal Grandmother Family history of Family history of myocardial infarction (V17.3) (Z82.49) in her 40's Family history of type 2 diabetes mellitus (V18.0) (Z83.3) Social History Problems Cigarette nicotine dependence (305.1) (F17.210) Consumes alcohol occasionally (V49.89) (Z78.9) Does not use illicit drugs (V49.89) (Z78.9) Nicotine dependence due to vaping tobacco product (305.1) (F17.290) No advance directives (V49.89) (Z78.9) Allergies Medication clonidine Allergy; Hives;; Updated By: Alma Mckeon; 03/03/2022 2:28:14 PM Current Meds Medication NameInstruction busPIRone HCl - 5 MG Oral TabletTAKE 1 TABLET 3 times daily PRN anxiety Omeprazole 20 MG Oral Capsule Delayed ReleaseTAKE 1 CAPSULE Daily PARoxetine HCl - 30 MG Oral TabletTAKE 1 TABLET DAILY. Vitals Vital Signs Recorded: 02May2022 08:59AM Heart Pzdt130 Xkwfeggp487 Tofswwkfw88 Height5 ft 5 in Rlcrio081 lb 15.82 oz BMI Alukcqbaxm39.81 kg/m2 BSA Calculated1.52 Tobacco Usea) Yes Patient encouraged to stop using tobacco productsYes Falls Screening (Age 18+)a) No falls within the last year Physical Exam Constitutional General appearance: Alert and in no acute distress. Eyes Inspection of eyes: Sclera and conjunctiva were normal. Pupil exam: Pupils were equal in size. Extraocular movements were intact. Pulmonary Respiratory assessment: No respiratory distress, normal respiratory rhythm and effort. Auscultation of Lungs: Clear bilateral breath sounds. Cardiovascular Auscultation of heart: Apical pulse (more content not included)... Normal [facility] Tobacco Screening.on 022 Fall risk assessment a) No falls within the last year [facility] Work Phone: Tobacco use status [facility] a) Yes [facility] Work Phone: Tobacco Screening. Yes [facility] Work Phone: XR FINGER(S) LEFT 2+ VIEWSon 04-24-2022 XR FINGER(S) LEFT 2+ VIEWS EXAMINATION: XR FINGER(S) LEFT 2+ VIEWS 04/24/2022 11:25 am HISTORY: ORDERING SYSTEM PROVIDED HISTORY: Left middle digit, TECHNOLOGIST PROVIDED HISTORY: Injury/Trauma Reason for exam: finger injury Cancer History: n Surgery, RadiationHistory: n Encounter Type: Initial Mechanism of injury: Left middle finger injury x 1 day. Swelling and brusiing ORDERING SYSTEM PROVIDED DIAGNOSIS CODES: FINDINGS: Acute fracture base of the distal phalanx of the finger. Soft tissue swelling. IMPRESSION: Acute fracture base distal phalanx of the finger. Orthopedic evaluation suggested. Workstation ID: [id number] Dictated by: MELANIE WHITMORE on SunApr 24, 2022 12:19:58 PM EDT Transcribed by: MELANIE WHITMORE on SunApr 24, 2022 12:19:58 PM EDT Finalized by: MELANIE WHITMORE on SunApr 24, 2022 12:19:58 PM EDT [facility] Comment on above: Order Comment: Injur y/Trauma or Illness?:Injury/Trauma How long have you had these symptoms (acute/chronic)?:Acute Reason for exam?:finger injury History of cancer?:n Surgeries, chemotherapy, or radiation?:n Type of Exam?:Initial Mechanism of injury?:Left middle finger injury x 1 day. Swelling and brusiing Office Visit (Internal Medic ine)on 03-31-2022 Follow-up visit Diagnoses/Problems Health Maintenance/Risks Encounter for preventive health examination (V70.0) (Z00.00) Assessed Generalized anxiety disorder with panic attacks (300.02,300.01) (F41.1,F41.0) GERD (gastroesophageal reflux disease) (530.81) (K21.9) Orders Generalized anxiety disorder with panic attacks Renew: PARoxetine HCl - 30 MG Oral Tablet; TAKE 1 TABLET DAILY Rx By: Jordyn Ramirez; Dispense: 90 Days ; #:90 Tablet; Refill: 1;For: Generalized anxiety disorder with panic attacks; CATE = N; Verified Transmission to [facility]; Last Updated By: Cortez Klein; 03/31/2022 2:39:28 PM Health Maintenance Complete Blood Count + Differential; Status:Active; Requested for:31Mar2023; Perform:Lab Services - Lab To Draw (Blood Test); Due:[id number];Ordered; For:Health Maintenance; Ordered By:Jordyn Ramirez; Comprehensive Metabolic Panel; Status:Active; Requested for:31Mar2023; Perform:Lab Services - Lab To Draw (Blood Test); Due:[id number];Ordered; For:Health Maintenance; Ordered By:Jordyn Ramirez; Hemoglobin A1C; Status:Active; Requested for:[id number]; Perform:Lab Services - Lab To Draw (Blood Test); Due:25Kko0256;Ordered; For:Health Maintenance; Ordered By:Jordyn Ramirez; Lipid Panel; Status:Active; Requested for:[id number]; Perform:Lab Services - Lab To Draw (Blood Test); Due:[id number];Ordered; For:Health Maintenance; Ordered By:Jordyn Ramirez; TSH WITH REFLEX TO FREE T4 IF ABNORMAL; Status:Active; Requested for:[id number]; Perform:Lab Services - Lab To Draw (Blood Test); Due:[id number];Ordered; For:Health Maintenance; Ordered By:Jordyn Ramirez; Patient Discussion/Summary 12 MONTHS WITH FASTING LABS Provider Impressions WE DISCUSSED MOST COMMON SIDE EFFECTS OF PRESCRIBED MEDICATIONS. INDICATIONS, RISK, COMPLICATIONS, AND ALTERNATIVES OF MEDICATION/THERAPEUTICS WERE EXPLAINED AND DISCUSSED. PLEASE MONITOR CLOSELY FOR ANY UNTOWARD SIDE EFFECTS OR COMPLICATIONS OF MEDICATIONS. PATIENT IS STRONGLY ADVISED TO BE COMPLIANT WITH RECOMMENDATIONS. QUESTIONS AND CONCERNS WERE ADDRESSED. INSTRUCTED TO CALL, RETURN SOONER, OR GO TO THE ER, IF SYMPTOMS PERSIST OR WORSEN. THEY VOICED UNDERSTANDING AND DENIES FURTHER QUESTIONS AT THIS TIME. TIME CODE 1. PREPARATION FOR PATIENT'S VISIT (REVIEWING CHART, CURRENT MEDICAL RECORDS, OUTSIDE HEALTH PROVIDER RECORDS, PREVIOUS HISTORY, EXAM, TEST, PROCEDURE, AND MEDICATIONS) 2. FACE TO FACE ENCOUNTER OBTAINING HISTORY FROM THE PATIENT/FAMILY/CAREGIVERS ; PERFORMING EVALUATION AND EXAMINATION; ORDERING TESTS OR PROCEDURES; REFERRING AND COMMUNICATING WITH OTHER HEALTHCARE PROVIDERS; COUNSELING AND EDUCATION OF THE PATIENT/FAMILY/CAREGIVERS ; INDEPENDENTLY INTERPRETING RESULTS (TESTS, LABS, PROCEDURES, IMAGING) AND COMMUNICATING AND EXPLAINING RESULTS TO THE PATIENT/FAMILY/CAREGIVERS 3. COORDINATION OF CARE; PREPARING AND PRINTING DISCHARGE INSTRUCTIONS AND ANY EDUCATIONAL MATERIAL FOR THE PATIENT/FAMILY/CAREGIVERS . DOCUMENTING CLINICAL INFORMATION IN THE ELECTRONIC MEDICAL RECORD 4. REVIEWING OARRS NEEDED MDM 1) COMPLEXITY: MORE THAN 1 STABLE CHRONIC CONDITION ADDRESSED OR 1 ACUTE ILLNESS ADDRESSED 2)DATA: TESTS INTERPRETED AND OR ORDERED, TOOK INDEPENDENT HISTORY OR RECORDS REVIEWED 3)RISK: MODERATE RISK DUE TO NATURE OF MEDICAL CONDITIONS/COMORBIDITY OR MEDICATIONS ORDERED OR SURGICAL OR PROCEDURE REFERRAL Chief Complaint 1 month f/u w labs History of Present IllnessP[facility] [place] [facility] AND MED CHECK. NO NEW COMPLAINTS ANXIETY- INCREASED PAXIL AND IS DOING BETTER ON 20 MG BUT FEELS A AN INCREASE WOULD BE BENEFICIAL. WILL INCREASE TO 30 MG. GERD- STABLE Review of Systems Constitutional: not feeling poorly, no fever, no recent weight gain, no recent weight loss and no chills. Eyes: no blurred vision, no diplopia and no eyesight problems. ENT: no hearing loss, no tinnitus, no earache, no sore throat, no hoarseness, no swollen glands in the neck and no nosebleeds. Cardiovascular: no chest pain, no tightness or heavy pressure, no shortness of breath, no palpitations and no lower extremity edema. Respiratory: no cough, not coughing up sputum, no wheezing that is consistent with asthma and no shortness of breath during exertion. Gastrointestinal: no change in bowel habits, no diarrhea, no constipation, no bloody stools, no nausea, no vomiting, no abdominal pain, no signs and symptoms of ulcer disease, no ceci colored stools and no intolerance to fatty foods. Genitourinary: no urinary frequency, no dysuria, no burning sensation during urination, no hematuria, no incontinence and no pelvic pain. Musculoskeletal: no arthralgias, no joint stiffness, no muscle weakness, no back pain and no difficulty walking. Skin: no rashes, no change in skin color and pigmentation, no skin lesions and no skin lumps. Neurological: no headaches, no dizziness, no seizures, no tingling, no numbness, no signs and symptoms of stroke and no limb weakness. Psychiatric: no confusion, no memory lapses or loss, n (more content not included)... Normal [facility] Complete Blood Count + Diffe aida 03-10-2022 Basophils/100 WBC (Bld) 1.0 % 0.0 - 2.0 [facility] Medicine Work Phone: Erythrocyte distribution width (RBC) [Ratio] 12.2 % See Below [facility] Work Phone: Comment on above: Reference Range: 11. 5 - 14.5 Hematocrit (Bld) [Volume fraction] 44.2 % See Below [facility] Work Phone: Comment on above: Reference Range: 36. 0 - 46.0 Hemoglobin (Bld) [Mass/Vol] 15.1 g/dL See Below [facility] Work Phone: Comment on above: Reference Range: 12. 0 - 16.0 Lymphocytes/100 WBC (Bld) 26.6 % See Below [facility] Work Phone: [phone] Comment on above: Reference Range: 13. 0 - 44.0 MCHC (RBC) [Mass/Vol] 34.3 g/dL See Below [facility] Work Phone: [phone] Comment on above: Reference Range: 32. 0 - 36.0 MCV (RBC) [Entitic vol] 88 fL 80 - 100 [facility] Work Phone: [phone] Monocytes/100 WBC (Bld) 7.4 % 2.0 - 10.0 [facility] Work Phone: [phone] Neutrophils/100 WBC (Bld) 64.5 % See Below [facility] Work Phone: [phone] Comment on above: Reference Range: 40. 0 - 80.0 Platelets (Bld) [#/Vol] 275 10*3/uL 150 - 450 [facility] Work Phone: [phone] RBC (Bld) [#/Vol] 5.05 {x10E12/L} See Below [facility] Work Phone: [phone] Comment on above: Reference Range: 4.0 0 - 5.20 WBC (Bld) [#/Vol] 6.7 10*3/uL 4.4 - 11.3 [facility] Work Phone: [phone] Complete Blood Count + Differential 0.10 {x10E9/L} See Below [facility] Work Phone: [phone] Comment on above: Reference Range: 0.0 0 - 0.10 Complete Blood Count + Differential 0.00 {x10E9/L} See Below [facility] Work Phone: [phone] Comment on above: Reference Range: 0.0 0 - 0.70 Complete Blood Count + Differential 0.50 {x10E9/L} See Below [facility] Work Phone: [phone] Comment on above: Reference Range: 0.1 0 - 1.00 Complete Blood Count + Differential 1.80 {x10E9/L} See Below [facility] Internal [facility] Work Phone: Comment on above: Reference Range: 1.2 0 - 4.80 Complete Blood Count + Differential 4.30 {x10E9/L} See Below [facility] Work Phone: Comment on above: Reference Range: 1.2 0 - 7.70 Percent differential counts (%) should be interpreted in the context of the absolute cell counts (cells/L). Complete Blood Count + Differential 0.5 % 0.0 - 6.0 [facility] Internal [facility] Work Phone: Ferritin, Serumon 03-10-2022 Ferritin [Mass/Vol] 77 ug/L 8 - 150 [facility] Internal [facility] Work Phone: Folate, Serumon 03-10-2022 Folate [Mass/Vol] 19.2 ng/mL >5.0 [facility] Work Phone: Comment on above: Low <3.4Borderline 3 .4-5.0Normal >5.0. Patients receiving more than 5 mg/day of biotin may have interference in test results. A sample should be taken no sooner than eight hours after previous dose. Contact the testing laboratory for additional information. Hemoglobin A1Con 03-10-2022 Glucose [Mass/Vol] 103 mg/dL [facility] Work Phone: HbA1c (Bld) [Mass fraction] 5.2 % [facility] Work Phone: Comment on above: Diagnosis of Diabete s-Adults Non-Diabetic: < or = 5.6% Increased risk for developing diabetes: 5.7-6.4% Diagnostic of diabetes: > or = 6.5%. Monitoring of Diabetes Age (y) Therapeutic Goal (%) Adults: >18 <7.0 Pediatrics: 13-18 <7.5 7-12 <8.0 0- 6 7.5-8.5 [employer]. Diabetes Care 33(S1), Jul 2009. Laboratory - Chemistry and C hemistry - challengeon 03-10-2022 Albumin BCP dye [Mass/Vol] 4.9 g/dL 3.4 - 5.0 [facility] Internal Medicine Work Phone: ALP [Catalytic activity/Vol] 42 U/L 33 - 110 [facility] Internal Medicine Work Phone: [phone] ALT With P-5'-P [Catalytic activity/Vol] 9 U/L 7 - 45 [facility] Medicine Work Phone: Comment on above: Patients treated wit h Sulfasalazine may generate falsely decreased results for ALT. Anion gap [Moles/Vol] 13 mmol/L 10 - 20 [facility] Internal Medicine Work Phone: AST With P-5'-P [Catalytic activity/Vol] 16 U/L 9 - 39 [facility] Work Phone: [phone] Bilirubin [Mass/Vol] 1.3 mg/dL above high threshold 0.0 - 1.2 [facility] Medicine Work Phone: [phone] Calcium [Mass/Vol] 9.5 mg/dL 8.6 - 10.3 [facility] Work Phone: [phone] Chloride [Moles/Vol] 106 mmol/L 98 - 107 [facility] Work Phone: [phone] CO2 [Moles/Vol] 25 mmol/L 21 - 32 [facility] Medicine Work Phone: Creatinine [Mass/Vol] 0.85 mg/dL See Below [facility] Work Phone: [phone] Comment on above: Reference Range: 0.5 0 - 1.05 Glucose [Mass/Vol] 87 mg/dL 74 - 99 [facility] Medicine Work Phone: [phone] Iron [Mass/Vol] 141 ug/dL 35 - 150 [facility] Medicine Work Phone: [phone] Iron binding capacity [Mass/Vol] 349 ug/dL 240 - 445 [facility] Work Phone: Potassium [Moles/Vol] 3.9 mmol/L 3.5 - 5.3 [facility] Work Phone: Protein [Mass/Vol] 7.5 g/dL 6.4 - 8.2 [facility] Work Phone: Sodium [Moles/Vol] 140 mmol/L 136 - 145 [facility] Work Phone: TSH Qn 0.93 m[IU]/L See Below [facility] Work Phone: Comment on above: Reference Range: 0.4 4 - 3.98 TSH testing is performed using different testing methodology at [facility] than at other [facility]. Direct result comparisons should only be made within the same method. Urea nitrogen [Mass/Vol] 15 mg/dL 6 - 23 [facility] Work Phone: Lipid Panelon 03-10-2022 Cholesterol [Mass/Vol] 143 mg/dL 0 - 199 [facility] Work Phone: Comment on above: . AGE DESIRABLE BORD RENEA HIGH HIGH 0-19 Y 0 - 169 170 - 199 >/= 200 20-24 Y 0 - 189 190 - 224 >/= 225 >24 Y 0 - 199 200 - 239 >/= 240 All ranges are based on fasting samples. Specific therapeutic targets will vary based on patient-specific cardiac risk.. Pediatric guidelines reference:Pediatrics 2011, 128(S5). Adult guidelines reference: NCEP ATPIII Guidelines, ALDO 2001, 258:2486-97. Venipuncture immediately after or during the administration of Metamizole may lead to falsely low results. Testing should be performed immediately prior to Metamizole dosing. Cholesterol in HDL [Mass/Vol] 58.0 mg/dL [facility] Work Phone: Comment on above: . AGE VERY LOW LOW N ORMAL HIGH 0-19 Y < 35 < 40 40-45 ---- 20- 24 Y ---- < 40 >45 ---- >24 Y ---- < 40 40-60 >60. Cholesterol in LDL [Mass/Vol] 74 mg/dL 0 - 119 [facility] Work Phone: Comment on above: . NEAR BORD AGE DEE DEE RABLE OPTIMAL HIGH HIGH VERY HIGH 0-19 Y 0 - 109 --- 110-129 >/= 130 ---- 20-24 Y 0 - 119 --- 120-159 >/= 160 ---- >24 Y 0 - 99 100-129 130-159 160-189 >/=190. Cholesterol non HDL [Mass/Vol] 85 mg/dL 0 - 149 [facility] Internal [facility] Work Phone: Comment on above: AGE DESIRABLE BORDER LINE HIGH HIGH VERY HIGH 0-19 Y 0 - 119 120 - 144 >/= 145 >/= 160 20-24 Y 0 - 149 150 - 189 >/= 190 ---- >24 Y 30 MG/DL ABOVE LDL CHOLESTEROL GOAL. Cholesterol.total/C holesterol in HDL [Mass ratio] 2.5 {ratio} [facility] Work Phone: Comment on above: REF VALUESDESIRABLE < 3.4HIGH RISK > 5.0 Triglyceride [Mass/Vol] 57 mg/dL 0 - 149 [facility] Work Phone: Comment on above: . AGE DESIRABLE BORD RENEA HIGH HIGH VERY HIGH 0 D-90 D 19 - 174 ---- ---- ----91 D- 9 Y 0 - 74 75 - 99 >/= 100 ---- 10-19 Y 0 - 89 90 - 129 >/= 130 ---- 20-24 Y 0 - 114 115 - 149 >/= 150 ---- >24 Y 0 - 149 150 - 199 200- 499 >/= 500. Venipuncture immediately after or during the administration of Metamizole may lead to falsely low results. Testing should be performed immediately prior to Metamizole dosing. Lipid Panel 11 mg/dL 0 - 40 [facility] Internal [facility] Work Phone: No Panel Informationon 03-10 >90 >90 [facility] Work Phone: Comment on above: CALCULATIONS OF JOSE MATED GFR ARE PERFORMED USING THE 2020 CKD-EPI STUDY REFIT EQUATION WITHOUT THE RACE VARIABLE FOR THE IDMS-TRACEABLE CREATININE METHODS.https://jasn.asnjournals.org/content/early/ASN. 1788224579 40 % 25 - 45 [facility] Medicine Work Phone: Vitamin B12, Serumon 022 Cobalamin (Vitamin B12) [Mass/Vol] 215 pg/mL 211 - 911 [facility] Medicine Work Phone: Office Visit (Internal Medic ine)on 03-03-2022 Follow-up visit Diagnoses/Problems Assessed Generalized anxiety disorder with panic attacks (300.02,300.01) (F41.1,F41.0) GERD (gastroesophageal reflux disease) (530.81) (K21.9) Establishing care with new doctor, encounter for (V65.8) (Z76.89) Cigarette nicotine dependence (305.1) (F17.210) Orders Establishing care with new doctor, encounter for, Generalized anxiety disorder with panic attacks, GERD (gastroesophageal reflux disease) Complete Blood Count + Differential; Status:Active; Requested for:03Mar2022; Perform:Lab Services - Lab To Draw (Blood Test); Due:[id number];Ordered; For:Establishing care with new doctor, encounter for, Generalized anxiety disorder with panic attacks, GERD (gastroesophageal reflux disease); Ordered By:Jordyn Ramirez; Comprehensive Metabolic Panel; Status:Active; Requested for:03Mar2022; Perform:Lab Services - Lab To Draw (Blood Test); Due:[id number];Ordered; For:Establishing care with new doctor, encounter for, Generalized anxiety disorder with panic attacks, GERD (gastroesophageal reflux disease); Ordered By:Jordyn Ramirez; Ferritin, Serum; Status:Active; Requested for:03Mar2022; Perform:Lab Services - Lab To Draw (Blood Test); Due:[id number];Ordered; For:Establishing care with new doctor, encounter for, Generalized anxiety disorder with panic attacks, GERD (gastroesophageal reflux disease); Ordered By:Jordyn Ramirez; Folate, Serum; Status:Active; Requested for:03Mar2022; Perform:Lab Services - Lab To Draw (Blood Test); Due:[id number];Ordered; For:Establishing care with new doctor, encounter for, Generalized anxiety disorder with panic attacks, GERD (gastroesophageal reflux disease); Ordered By:Jordyn Ramirez; Hemoglobin A1C; Status:Active; Requested for:03Mar2022; Perform:Lab Services - Lab To Draw (Blood Test); Due:01Jun2022;Ordered; For:Establishing care with new doctor, encounter for, Generalized anxiety disorder with panic attacks, GERD (gastroesophageal reflux disease); Ordered By:Jordyn Ramirez; Iron + TIBC, Serum; Status:Active; Requested for:03Mar2022; Perform:Lab Services - Lab To Draw (Blood Test); Due:01Jun2022;Ordered; For:Establishing care with new doctor, encounter for, Generalized anxiety disorder with panic attacks, GERD (gastroesophageal reflux disease); Ordered By:Jordyn Ramirez; Lipid Panel; Status:Active; Requested for:03Mar2022; Perform:Lab Services - Lab To Draw (Blood Test); Due:01Jun2022;Ordered; For:Establishing care with new doctor, encounter for, Generalized anxiety disorder with panic attacks, GERD (gastroesophageal reflux disease); Ordered By:Jordyn Ramirez; TSH WITH REFLEX TO FREE T4 IF ABNORMAL; Status:Active; Requested for:03Mar2022; Perform:Lab Services - Lab To Draw (Blood Test); Due:01Jun2022;Ordered; For:Establishing care with new doctor, encounter for, Generalized anxiety disorder with panic attacks, GERD (gastroesophageal reflux disease); Ordered By:Jordyn Ramirez; Vitamin B12, Serum; Status:Active; Requested for:03Mar2022; Perform:Lab Services - Lab To Draw (Blood Test); Due:01Jun2022;Ordered; For:Establishing care with new doctor, encounter for, Generalized anxiety disorder with panic attacks, GERD (gastroesophageal reflux disease); Ordered By:Jordyn Ramirez; Generalized anxiety disorder with panic attacks Start: busPIRone HCl - 5 MG Oral Tablet; TAKE 1 TABLET 3 times daily PRN anxiety Rx By: Jordyn Ramirez; Dispense: 30 Days ; #:90 Tablet; Refill: 0;For: Generalized anxiety disorder with panic attacks; CATE = N; Verified Transmission to [facility]; Last Updated By: Cortez Klein; 03/03/2022 2:58:35 PM Start: PARoxetine HCl - 10 MG Oral Tablet (Paxil); TAKE 1 TABLET DAILY Rx By: Jordyn Ramirez; Dispense: 90 Days ; #:90 Tablet; Refill: 0;For: Generalized anxiety disorder with panic attacks; CATE = N; [facility]; Last Updated By: [email or web address]; 03/03/2022 2:58:27 PM GERD (gastroesophageal reflux disease) Renew: Omeprazole 20 MG Oral Capsule Delayed Release; TAKE 1 CAPSULE Daily Rx By: Jordyn Ramirez; Dispense: 90 Days ; #:90 Capsule; Refill: 3;For: GERD (gastroesophageal reflux disease); CATE = N; Verified Transmission to [facility] 1448; Last Updated By: [email or web address]; 03/03/2022 2:59:29 PM Patient Discussion/Summary 1 MONTH WITH FASTING LABS Provider Impressions WE DISCUSSED MOST COMMON SIDE EFFECTS OF PRESCRIBED MEDICATIONS. INDICATIONS, RISK, COMPLICATIONS, AND ALTERNATIVES OF MEDICATION/THERAPEUTICS WERE EXPLAINED AND DISCUSSED. PLEASE MONITOR CLOSELY FOR ANY UNTOWARD SIDE EFFECTS OR COMPLICATIONS OF MEDICATIONS. PATIENT IS STRONGLY ADVISED TO BE COMPLIANT WITH RECOMMENDATIONS. QUESTIONS AND CONCERNS WERE ADDRESSED. INSTRUCTED TO CALL, RETURN SOONER, OR GO TO THE ER, IF SYMPTOMS PERSIST OR WORSEN. THEY VOICED UNDERSTANDING AND DENIES FURTHER QUESTIONS AT THIS TIME. TIME CODE 1. PREPARATION FOR PATIENT'S VISIT (REVIEWING CHART, CURRENT MEDICAL RECORDS, OUTSIDE HEALTH PROVIDER RECORDS, PREVIOUS HISTORY, EXAM, TEST, PROCEDURE, AND MEDICATIONS (more content not included)... Normal [facility] Tobacco Screening.on 022 Adult depression screening assessment No [facility] Medicine Work Phone: Fall risk assessment a) No falls within the last year [facility] Work Phone: Tobacco use status CP a) Yes [facility] Medicine Work Phone: Tobacco Screening. Yes [facility] Work Phone: C. trachomatis/GC PCR Panel on [employer]perton 10-26-2021 C. trachomatis/GC PCR Panel on GeneXpert Reason for preventing automatic release->Other Is this specimen being sent to an external lab?->No Release to patient->Manual release only [id number]&Urine-First Void^^^Urine&Urine C. trachomatis PCR on GeneXpert: NEGATIVE-Chlamydia trachomatis DNA: NOT DETECTED. Source: [facility] Collected: 10/26/21 17:15 Site: Urine Received : 10/26/21 21:53 C. trachomatis PCR on GeneXpert FINAL 10/27/21 08:48 NEGATIVE-Chlamydia trachomatis DNA: NOT DETECTED. - GC PCR on GeneXpert FINAL 10/27/21 08:48 NEGATIVE-Neisseria gonorrhea DNA: NOT DETECTED. - Method: DNA detection by RT PCR on a GeneXpert analyzer. - NOTE: This Amplified DNA Assay should not be used for the evaluation of suspected sexual abuse or for other medico-legal indications. - Screening urine specimens for Chlamydia trachomatis and Neisseria gonorrhoeae using nucleic acid amplification is an accurate and sensitive method compared to standard techniques of detection of these pathogens. Because the pathogen is diluted in urine, it is somewhat less sensitive than a direct swab specimen evaluated by nucleic acid amplification techniques. - NOTE: Xpert CT/NG Assay performance has not been evaluated in patients less than 14 years of age. Interpret results in conjunction with other laboratory and clinical data. Normal [facility] Comment on above: Performed By: #### C [facility] ####[address] [phone] Progress Noteon 10-26-2021 Press Cleaner Authentication Interface Message Text Patient ID: Luz Hinojosa is a 20 y.o. female. Her chief complaint(s) include: Vaginitis Assessment 1. Dysuria 2. Vulvovaginitis 3. Gastroesophageal reflux disease without esophagitis Plan Luz was seen today for vaginitis. Diagnoses and all orders for this visit: Dysuria - POCT urinalysis dipstick - Urine culture - C.trachomatis/GC PCR Panel Vulvovaginitis - fluconazole (DIFLUCAN) 150 MG tablet; Take 1 Tablet (150 mg) by mouth once for 1 dose - nystatin (MYCOSTATIN) [id number] UNIT/GM OINT ointment; Apply to affected area 4 times daily for 14 days Gastroesophageal reflux disease without esophagitis - omeprazole (PRILOSEC) 20 MG capsule; Take 1 Capsule (20 mg) by mouth daily Return for Well Visit and as needed. Subjective She is unaccompanied. Dysuria The onset has been gradual. The duration has been 3 days. The pattern is persistent. The course is unchanging. The patient's symptoms have included urinary burning and vaginal discharge (white ). The patient's symptoms have included no chills, no fatigue, no fever, no weight loss, no rhinorrhea, no sore throat, no cough, no headaches, no abdominal pain, no nausea, no vomiting, no diarrhea, no constipation, no change in urine color, no change in urine odor, no decreased urination, no urinary frequency, no urinary urgency, no change in urinary pattern, no bladder incontinence and no back pain. (Extrenal itching). The contributing factors have included sexual activity. (Uses condoms). Sick contacts: none. Gastroesophageal Reflux The onset has been gradual. The duration has been 1 month. The pattern is recurrent. The course is worsening. The symptoms are described as moderate. Aggravated by: after meals. The patient's symptoms have included abdominal pain, nausea, belching and heartburn. The patient's symptoms have included no trouble swallowing. Previous medications tried are Prilosec (needs a refill). Review of Systems Genitourinary: Positive for dysuria. Objective Vital Signs 10/26/21 1651 Temp: 36.7 C (98 F) Weight: 50.2 kg There is no height or weight on file to calculate BMI. Physical Exam Constitutional: She appears well. She is active. No distress. HENT: Head: Atraumatic. Ears: Right Ear: Tympanic membrane is bulging. Left Ear: Tympanic membrane normal. Mouth/Throat: Mucous membranes are moist. Eyes: Conjunctivae are normal. Cardiovascular: Normal rate and regular rhythm. Heart murmur not heard. Pulmonary/Chest: Breath sounds normal. There is normal air entry. Abdominal: Soft. Bowel sounds are normal. She exhibits no distension. There is no hepatosplenomegaly. There is no abdominal tenderness. There is no guarding. Genitourinary: There is rash (redness) on the right labia. There is rash (redness) on the left labia. Vaginal discharge present. Injury: white thick. Neurological: She is alert. Last Result POCT urinalysis dipstick Collection Time: 10/26/21 5:06 PM Result Value Ref Range POCT, Leukocytes, Urine Negative Negative POCT Nitrite, Urine Negative Negative POCT Protein, Urine Negative Negative - Trace mg/dl POCT Urine pH 8.0 5.0 - 8.0 pH POCT Blood, Urine Negative Negative POCT Urine Specific [place] 1.015 1.005 - 1.030 POCT Ketones, Urine Negative Negative mg/dl POCT Glucose, Urine Negative Negative mg/dl Normal [facility] Urine Cultureon 10-26-2021 Bacteria identified Cx Nom (U) Is this specimen being sent to an external lab?->No Release to patient->Automatic [id number]&Urine-CCMS^^^Urine& Urine Urine Culture: Enterococcus sp. Source: [facility] Collected: 10/26/21 17:15 Site: Urine Received : 10/26/21 21:53 Urine Culture FINAL 10/28/21 09:26 10,000 - 50,000 CFU/ml of Normal Skin/urogenital ivy present <10,000 CFU/ml Enterococcus sp. If further work-up is needed, providers should call the Microbiology lab within 3 days. Normal [facility] Comment on above: Performed By: #### U RINE ####[address] [phone] SARS-CoV-2 (COVID-19) RT-PCR on 08-04-2021 SARS-CoV-2 (COVID-19) RNA GIOVANNI+probe Ql (Unsp spec) Positive Abnormal [facility] Comment on above: Order Comment: Is th is a pre-procedure screening test?->NoIs this specimen being sent to an external lab?->[id number]&Nasopharyngeal swab^\S\^Nose&Nose Result Comment: POSI TIVE: SARS-CoV-2 RNA was detected - Interpretation: A positive result indicates severe acute respiratory syndrome coronavirus 2 (SARS-CoV-2) RNA is present. Clinical correlation with patient history and other diagnostic information is necessary to determine patient infection status. Positive results do not rule out bacterial infection or co-infection with other viruses. - Method: Real-time reverse transcriptase PCR amplification for the qualitative detection of the ORF1 a/b non-structural region that is unique to SARS-CoV-2 and a conserved region in the structural protein envelope E-gene for velázquez-Sarbecovirus detection using the Chris SARS-CoV-2 assay on the [employer] Chris iTherX0 System. - Comment: This test has received FDA Emergency Use Authorization (EUA) and has been verified by [facility]. This test is only authorized for the duration of the public health emergency declaration and the circumstances that exist to justify the authorization of the emergency use of in vitro diagnostic tests for the detection of SARS-CoV-2 virus and/or diagnosis of COVID-19 infection under section 564(b)(1) of the Act, 21 U.S.C. 360bbb-3(b)(1), unless the authorization is terminated or revoked sooner. This test has not been FDA cleared or approved. Results should be used in conjunction with clinical findings, and should not form the sole basis for a diagnosis or treatment decision. - Fact Sheets for this EUA can be found at the following links: For Healthcare Providers: www.[employer].gov/media/319775/download For Patients: www.[employer].gov/media/373515/download - Reference Value: Negative Performed By: #### C OVID ####[address] [phone] CHRIS SARS CoV-2 RT PCR Detected Normal [facility] Comment on above: Order Comment: Is th is a pre-procedure screening test?->NoIs this specimen being sent to an external lab?->[id number]&Nasopharyngeal swab^\S\^Nose&Nose Performed By: #### C OVID ####[address] [phone] Progress Noteon 08-02-2021 Press Cleaner Authentication Interface Message Text Patient ID: Luz Hinojosa is a 20 y.o. female. Her chief complaint(s) include: Pharyngitis (Post post 3 days), Headache, and Other (Covid exposure in household) Assessment 1. Suspected COVID-19 virus infection 2. Exposure to COVID-19 virus 3. Sore throat 4. Cough 5. Other headache syndrome 6. Rhinorrhea Plan Luz was seen today for pharyngitis, headache and other. Diagnoses and all orders for this visit: Suspected COVID-19 virus infection - SARS COV-2 RT-PCR Exposure to COVID-19 virus - SARS COV-2 RT-PCR Sore throat - POCT ID NOW Rapid Strep A NAAT - SARS COV-2 RT-PCR Cough - SARS COV-2 RT-PCR Other headache syndrome - SARS COV-2 RT-PCR Rhinorrhea - SARS COV-2 RT-PCR Return if symptoms worsen or fail to improve. Discussed recommendations for home quarantine while Covid-19 test results are pending. Quarantine Protocol: Covid symptoms- known exposure with a positive test= 10days Known exposure with a negative test or no test= 14 days Non Covid symptoms-one time known exposure= 14 days of quarantine On-going exposure= 14 days from the end of last exposure ( 10=1 for family member) minimum 24 days School Exposure- will depend on level of contact. School/Public Health response. If the pt develops chest tightness or SOB, please take them to the ER. Covid symptoms can range from mild to severe. Symptoms appear 2-14 days after exposure of the virus. Parent voiced understanding. Subjective She is unaccompanied. Pharyngitis The onset has been acute. The duration has been 2 days. The pattern is persistent. The course is gradually worsening. Characterized by discomfort and aching. Symptoms are relieved by nothing. The patient's symptoms have included headaches, congestion, rhinorrhea, cough (dry), nausea and muscle aches. The patient's symptoms have included no fatigue, no fever, no dizziness, no decreased appetite, no decreased fluid intake, no difficulty sleeping, no ear pain, no sneezing, no swollen lymph nodes, no neck pain, no neck stiffness, no chest pain, no difficulty breathing, no shortness of breath, no wheezing, no stridor, no abdominal pain, no vomiting, no diarrhea, no decreased urination, no joint pain and no rash. The patient has been exposed to sick contacts with similar symptoms at home (Mom Has Covid and multiple coworkers are positive for Covid.) . The patient's home management has included nothing. Review of Systems HENT: Positive for headaches. Objective Vital Signs 08/02/21 1433 Temp: 36.5 C (97.7 F) TempSrc: Temporal Weight: 50.4 kg There is no height or weight on file to calculate BMI. Physical Exam Constitutional: She appears well. She is active. No distress. HENT: Head: Atraumatic. Ears: Right Ear: Tympanic membrane normal. Tympanic membrane is not erythematous. No purulent effusion and no serous effusion is present. Left Ear: Tympanic membrane normal. Tympanic membrane is not erythematous. No purulent effusion and no serous effusion. Nose: Nasal discharge present. Mouth/Throat: Mucous membranes are moist. Pharynx erythema present. Eyes: Conjunctivae are normal. Cardiovascular: Normal rate and regular rhythm. Heart murmur not heard. Pulmonary/Chest: Effort normal and breath sounds normal. There is normal air entry. No stridor. No respiratory distress. Air movement is not decreased. She has no wheezes. She has no rhonchi. She has no rales. Exhibits no retraction. Abdominal: Soft. Bowel sounds are normal. Lymphadenopathy: No right anterior and posterior cervical adenopathy present. No left anterior and posterior cervical adenopathy present. Neurological: She is alert. Last Result POCT ID NOW Rapid Strep A NAAT Collection Time: 08/02/21 2:40 PM Result Value Ref Range STREP A POC RESULT Negative Negative PROCEDURAL CONTROL POCT Control - Valid Lot Number [id number] Normal [facility] SARS-CoV-2 (COVID-19) RT-PCR on 08-02-2021 Date of Symptom Onset [id number] Normal [facility] Comment on above: Order Comment: Is th is a pre-procedure screening test?->NoIs this specimen being sent to an external lab?->[id number]&Nasopharyngeal swab^\S\^Nose&Nose Performed By: #### C OVID ####[address] [phone] Employed in Healthcare setting? No Normal [facility] Comment on above: Order Comment: Is th is a pre-procedure screening test?->NoIs this specimen being sent to an external lab?->[id number]&Nasopharyngeal swab^\S\^Nose&Nose Performed By: #### C OVID ####[address] [phone] Hospitalized? No Normal [facility] Comment on above: Order Comment: Is th is a pre-procedure screening test?->NoIs this specimen being sent to an external lab?->[id number]&Nasopharyngeal swab^\S\^Nose&Nose Performed By: #### C OVID ####[place] [phone] ICU? No Normal [facility] Comment on above: Order Comment: Is th is a pre-procedure screening test?->NoIs this specimen being sent to an external lab?->[id number]&Nasopharyngeal swab^\S\^Nose&Nose Performed By: #### C OVID ####[place], [place] [phone] ? Unknown Normal [facility] Comment on above: Order Comment: Is th is a pre-procedure screening test?->NoIs this specimen being sent to an external lab?->[id number]&Nasopharyngeal swab^\S\^Nose&Nose Performed By: #### C OVID ####[place] [phone] [facility] No Normal [facility] Comment on above: Order Comment: Is th is a pre-procedure screening test?->NoIs this specimen being sent to an external lab?->[id number]&Nasopharyngeal swab^\S\^Nose&Nose Performed By: #### C OVID ####[phone] SARS-CoV-2 (COVID-19) RNA GIOVANNI+probe Ql (Unsp spec) No Normal [facility] Comment on above: Order Comment: Is th is a pre-procedure screening test?->NoIs this specimen being sent to an external lab?->[id number]&Nasopharyngeal swab^\S\^Nose&Nose Performed By: #### C OVID ####[place] [phone] Symptomatic as defined by [facility]? Yes Normal [facility] Comment on above: Order Comment: Is th is a pre-procedure screening test?->NoIs this specimen being sent to an external lab?->[id number]&Nasopharyngeal swab^\S\^Nose&Nose Performed By: #### C OVID ####[facility] [place], [place] [phone] Progress Noteon 07-04-2021 Press Cleaner Authentication Interface Message Text Patient ID: Luz Hinojosa is a 20 y.o. female. Her chief complaint(s) include: Follow Up Assessment 1. Elevated glucose level 2. Weight loss Plan Luz was seen today for follow up. Diagnoses and all orders for this visit: Elevated glucose level - GLUCOSE 2HR CHALLENGE; Future - Hemoglobin A1c (Lab Collect); Future Weight loss Return if symptoms worsen or fail to improve. Subjective She is accompanied by her mother. Independent history obtained from mother. Follow Up This problem is new (here for follow up of abnormal glucose level done 2 weeks ago with complaints of dizziness and labs were normal except for a low glucose level of 68.. Patient was instructed to get glucometer and check and log her blood sugars in the AM after meals.). The patient's symptoms have included fatigue (works 10-12 hour days 4-5 days a week). The patient's symptoms have included no fever, no decreased appetite, no decreased fluid intake, no difficulty sleeping, no eye watering, no congestion, no rhinorrhea, no sneezing, no sore throat, no trouble swallowing, no cough, no shortness of breath, no wheezing, no bilateral ear pain, no headaches, no difficulty breathing, no abdominal pain, no diarrhea and no vomiting. (No further dizziness, no heat or cold intolerance, Eats regular meals and has not been limiting calories or trying to loose weight). (Glucose log shows fasting glucose 106-110 and 2 hour post prandial 110-135). Primary Care Review of Systems Objective Vital Signs 07/04/21 1722 Temp: 36.7 C (98.1 F) TempSrc: Temporal Weight: 50.6 kg There is no height or weight on file to calculate BMI. Physical Exam Constitutional: She appears well. She is active and cooperative. No distress. HENT: Head: Atraumatic. Ears: Right Ear: Tympanic membrane normal. Left Ear: Tympanic membrane normal. Mouth/Throat: Mucous membranes are moist. No pharynx erythema. Eyes: Conjunctivae are normal. Neck: Neck supple. Thyroid normal. Cardiovascular: Normal rate and regular rhythm. Heart murmur not heard. Pulmonary/Chest: Effort normal and breath sounds normal. There is normal air entry. Abdominal: Soft. Bowel sounds are normal. She exhibits no distension and no mass. There is no hepatosplenomegaly. There is no abdominal tenderness. There is no guarding. Musculoskeletal: Cervical back: Neck supple. Lymphadenopathy: No right anterior and posterior cervical adenopathy present. No left anterior and posterior cervical adenopathy present. Neurological: She is alert. Psychiatric: Attention and Perception: Attention and perception normal. She has a normal mood and affect. Her speech and behavior is normal. Mood, memory, affect, judgment and thought content normal. Cognition are normal. Normal [facility] C-Reactive Proteinon 021 C-Reactive Protein 0.5 mg/dL Normal 0.0-1.0 [facility] Comment on above: Order Comment: With differential. Is this specimen being sent to an external lab?->No Release to patient->Automatic 08910&Blood^\S\^Venous&Venous TIBC will not be run. Is this specimen being sent to an external lab?->No Release to patient->Automatic [id number]&Blood^\S\^Venous&Venous Result Comment: CRP determinations in neonates should be interpreted with caution. CRP may be elevated in circumstances not associated with inflammation (e.g. difficult delivery, pneumothorax). In premature neonates CRP levels may not rise to abnormal levels even if sepsis is present; some speculate that immature liver function decreases the ability to generate a CRP response. Performed By: #### C RP #### [address] [address] Comp Metabolic Panelon 06-23 Albumin [Mass/Vol] 4.6 g/dL Normal 3.5-5.0 [facility] Comment on above: Order Comment: With differential. Is this specimen being sent to an external lab?->No Release to patient->Automatic 47104&Blood^\S\^Venous&Venous TIBC will not be run. Is this specimen being sent to an external lab?->No Release to patient->Automatic 38530&Blood^\S\^Venous&Venous Performed By: #### C MP #### [address] [place] [address] ALP [Catalytic activity/Vol] 42 U/L Normal 35-104 [facility] Comment on above: Order Comment: With differential. Is this specimen being sent to an external lab?->No Release to patient->Automatic 93689&Blood^\S\^Venous&Venous TIBC will not be run. Is this specimen being sent to an external lab?->No Release to patient->Automatic 07782&Blood^\S\^Venous&Venous Performed By: #### C MP #### [address] [address] ALT [Catalytic activity/Vol] 13 U/L Normal 0-31 [facility] Comment on above: Order Comment: With differential. Is this specimen being sent to an external lab?->No Release to patient->Automatic 97413&Blood^\S\^Venous&Venous TIBC will not be run. Is this specimen being sent to an external lab?->No Release to patient->Automatic 05547&Blood^\S\^Venous&Venous Performed By: #### C MP #### [address] [address] AST [Catalytic activity/Vol] 19 U/L Normal 0-31 [facility] Comment on above: Order Comment: With differential. Is this specimen being sent to an external lab?->No Release to patient->Automatic 41108&Blood^\S\^Venous&Venous TIBC will not be run. Is this specimen being sent to an external lab?->No Release to patient->Automatic 01626&Blood^\S\^Venous&Venous Performed By: #### C MP #### [address] [address] Bili,Total 0.7 mg/dl Normal 0.0-1.0 [facility] Comment on above: Order Comment: With differential. Is this specimen being sent to an external lab?->No Release to patient->Automatic 92638&Blood^\S\^Venous&Venous TIBC will not be run. Is this specimen being sent to an external lab?->No Release to patient->Automatic 91577&Blood^\S\^Venous&Venous Performed By: #### C MP #### [place] [address] Calcium [Mass/Vol] 9.7 mg/dL Normal 7.6-11.0 [facility] Comment on above: Order Comment: With differential. Is this specimen being sent to an external lab?->No Release to patient->Automatic 42145&Blood^\S\^Venous&Venous TIBC will not be run. Is this specimen being sent to an external lab?->No Release to patient->Automatic 00223&Blood^\S\^Venous&Venous Performed By: #### C MP #### [place] [address] Chloride [Moles/Vol] 102 mmol/L Normal 96-108 [facility] Comment on above: Order Comment: With differential. Is this specimen being sent to an external lab?->No Release to patient->Automatic 40733&Blood^\S\^Venous&Venous TIBC will not be run. Is this specimen being sent to an external lab?->No Release to patient->Automatic 22379&Blood^\S\^Venous&Venous Performed By: #### C MP #### [place] [address] CO2 [Moles/Vol] 24.4 mmol/L Normal 22.0-29.0 [facility] Comment on above: Order Comment: With differential. Is this specimen being sent to an external lab?->No Release to patient->Automatic 02534&Blood^\S\^Venous&Venous TIBC will not be run. Is this specimen being sent to an external lab?->No Release to patient->Automatic 22351&Blood^\S\^Venous&Venous Performed By: #### C MP #### [place] [address] Creatinine [Mass/Vol] 0.74 mg/dL Normal 0.50-1.00 [facility] Comment on above: Order Comment: With differential. Is this specimen being sent to an external lab?->No Release to patient->Automatic 36767&Blood^\S\^Venous&Venous TIBC will not be run. Is this specimen being sent to an external lab?->No Release to patient->Automatic 04391&Blood^\S\^Venous&Venous Result Comment: Premature 0.3-1.0 mg/dL Performed By: #### C MP #### [place] [address] Glucose [Mass/Vol] 68 mg/dL Low 70-99 [facility] Comment on above: Order Comment: With differential. Is this specimen being sent to an external lab?->No Release to patient->Automatic 96203&Blood^\S\^Venous&Venous TIBC will not be run. Is this specimen being sent to an external lab?->No Release to patient->Automatic 17185&Blood^\S\^Venous&Venous Result Comment: Criteria for Diagnosis of Diabetes(Effective 12/26/10): Fasting specimen (no caloric intake for at least 8 hours). <100 mg/dl Normal 100-125 mg/dl Increased Risk for Diabetes >125 mg/dl Diagnostic for Diabetes Random Glucose (any time of day without regard to last meal). >=200 mg/dl plus Classic Symptoms of Diabetes Performed By: #### C MP #### [place] [address] Potassium [Moles/Vol] 4.8 mmol/L Normal 3.3-5.1 [facility] Comment on above: Order Comment: With differential. Is this specimen being sent to an external lab?->No Release to patient->Automatic 58303&Blood^\S\^Venous&Venous TIBC will not be run. Is this specimen being sent to an external lab?->No Release to patient->Automatic 91480&Blood^\S\^Venous&Venous Performed By: #### C MP #### [place] [address] Protein [Mass/Vol] 7.6 g/dL Normal 5.9-8.4 [facility] Comment on above: Order Comment: With differential. Is this specimen being sent to an external lab?->No Release to patient->Automatic 58753&Blood^\S\^Venous&Venous TIBC will not be run. Is this specimen being sent to an external lab?->No Release to patient->Automatic 67236&Blood^\S\^Venous&Venous Performed By: #### C MP #### [place] [address] Sodium [Moles/Vol] 139 mmol/L Normal 133-145 [facility] Comment on above: Order Comment: With differential. Is this specimen being sent to an external lab?->No Release to patient->Automatic 89129&Blood^\S\^Venous&Venous TIBC will not be run. Is this specimen being sent to an external lab?->No Release to patient->Automatic 76636&Blood^\S\^Venous&Venous Performed By: #### C MP #### [place] [address] Urea nitrogen [Mass/Vol] 16 mg/dL Normal 4-19 [facility] Comment on above: Order Comment: With differential. Is this specimen being sent to an external lab?->No Release to patient->Automatic 65966&Blood^\S\^Venous&Venous TIBC will not be run. Is this specimen being sent to an external lab?->No Release to patient->Automatic 59202&Blood^\S\^Venous&Venous Performed By: #### C MP #### [place] [address] Complete Blood Counton 06-23 Differential Complete Automated Normal [facility] Comment on above: Order Comment: With differential. Is this specimen being sent to an external lab?->No Release to patient->Automatic 50651&Blood^\S\^Venous&Venous TIBC will not be run. Is this specimen being sent to an external lab?->No Release to patient->Automatic 41404&Blood^\S\^Venous&Venous Performed By: #### C BC #### [place] [address] Basophils/100 WBC (Bld) 0.60 % Normal 0.00-1.00 [facility] Comment on above: Order Comment: With differential. Is this specimen being sent to an external lab?->No Release to patient->Automatic 47495&Blood^\S\^Venous&Venous TIBC will not be run. Is this specimen being sent to an external lab?->No Release to patient->Automatic 67432&Blood^\S\^Venous&Venous Performed By: #### C BC #### [place] [address] Eosinophils/100 WBC (Bld) 1.40 % Normal 0.00-3.00 [facility] Comment on above: Order Comment: With differential. Is this specimen being sent to an external lab?->No Release to patient->Automatic 44757&Blood^\S\^Venous&Venous TIBC will not be run. Is this specimen being sent to an external lab?->No Release to patient->Automatic 58509&Blood^\S\^Venous&Venous Performed By: #### C BC #### [place] [address] Erythrocyte distribution width (RBC) [Ratio] 11.5 % Normal 0.0-14.4 [facility] Comment on above: Order Comment: With differential. Is this specimen being sent to an external lab?->No Release to patient->Automatic 26911&Blood^\S\^Venous&Venous TIBC will not be run. Is this specimen being sent to an external lab?->No Release to patient->Automatic 37324&Blood^\S\^Venous&Venous Performed By: #### C BC #### [address] [id number] Hematocrit (Bld) [Volume fraction] 42.3 % Normal 36.0-44.0 [facility] Comment on above: Order Comment: With differential. Is this specimen being sent to an external lab?->No Release to patient->Automatic 78175&Blood^\S\^Venous&Venous TIBC will not be run. Is this specimen being sent to an external lab?->No Release to patient->Automatic 76654&Blood^\S\^Venous&Venous Performed By: #### C BC #### [place] [address] Hemoglobin (Bld) [Mass/Vol] 14.7 g/dL Normal 12.0-15.0 [facility] Comment on above: Order Comment: With differential. Is this specimen being sent to an external lab?->No Release to patient->Automatic 94219&Blood^\S\^Venous&Venous TIBC will not be run. Is this specimen being sent to an external lab?->No Release to patient->Automatic 70862&Blood^\S\^Venous&Venous Performed By: #### C BC #### [place] [address] Immature granulocytes/100 WBC (Bld) 0.20 % Normal [facility] Comment on above: Order Comment: With differential. Is this specimen being sent to an external lab?->No Release to patient->Automatic 10103&Blood^\S\^Venous&Venous TIBC will not be run. Is this specimen being sent to an external lab?->No Release to patient->Automatic 69522&Blood^\S\^Venous&Venous Result Comment: Tammie ture Granulocyte Percent includes promyelocytes, myelocytes, and metamyelocytes. IG% > 1.0 indicates a left shift is present. With automated differentials, bands are included in the neutrophil count and not in the Immature Granulocyte Percent. Performed By: #### C BC #### [place] [address] Lymphocytes/100 WBC (Bld) 30.5 % Normal 24.0-44.0 [facility] Comment on above: Order Comment: With differential. Is this specimen being sent to an external lab?->No Release to patient->Automatic 45221&Blood^\S\^Venous&Venous TIBC will not be run. Is this specimen being sent to an external lab?->No Release to patient->Automatic 56246&Blood^\S\^Venous&Venous Performed By: #### C BC #### [place] [address] MCH (RBC) [Entitic mass] 30.0 pg Normal 26.0-34.0 [facility] Comment on above: Order Comment: With differential. Is this specimen being sent to an external lab?->No Release to patient->Automatic 20282&Blood^\S\^Venous&Venous TIBC will not be run. Is this specimen being sent to an external lab?->No Release to patient->Automatic 97232&Blood^\S\^Venous&Venous Performed By: #### C BC #### [place] [address] MCHC 34.8 % Normal 31.0-37.0 [facility] Comment on above: Order Comment: With differential. Is this specimen being sent to an external lab?->No Release to patient->Automatic 33669&Blood^\S\^Venous&Venous TIBC will not be run. Is this specimen being sent to an external lab?->No Release to patient->Automatic 92097&Blood^\S\^Venous&Venous Performed By: #### C BC #### [place] [address] MCV (RBC) [Entitic vol] 86.3 fL Normal 80.0-100.0 [facility] Comment on above: Order Comment: With differential. Is this specimen being sent to an external lab?->No Release to patient->Automatic 22375&Blood^\S\^Venous&Venous TIBC will not be run. Is this specimen being sent to an external lab?->No Release to patient->Automatic 71887&Blood^\S\^Venous&Venous Performed By: #### C BC #### [place] [address] Monocytes/100 WBC (Bld) 8.70 % High 3.00-6.00 [facility] Comment on above: Order Comment: With differential. Is this specimen being sent to an external lab?->No Release to patient->Automatic 63460&Blood^\S\^Venous&Venous TIBC will not be run. Is this specimen being sent to an external lab?->No Release to patient->Automatic 40713&Blood^\S\^Venous&Venous Performed By: #### C BC #### [place] [address] Neutrophils (Bld) [#/Vol] 5.2 10*3/uL Normal 2.0-7.2 [facility] Comment on above: Order Comment: With differential. Is this specimen being sent to an external lab?->No Release to patient->Automatic 14781&Blood^\S\^Venous&Venous TIBC will not be run. Is this specimen being sent to an external lab?->No Release to patient->Automatic 73153&Blood^\S\^Venous&Venous Performed By: #### C BC #### [place] [address] Neutrophils/100 WBC (Bld) 58.6 % Normal 35.0-66.0 [facility] Comment on above: Order Comment: With differential. Is this specimen being sent to an external lab?->No Release to patient->Automatic 59502&Blood^\S\^Venous&Venous TIBC will not be run. Is this specimen being sent to an external lab?->No Release to patient->Automatic [id number]&Blood^\S\^Venous&Venous Performed By: #### C BC #### [address] [address] Nucleated RBC/100 WBC (Bld) [Ratio] 0.0 % Normal -1.0-0.0 [facility] Comment on above: Order Comment: With differential. Is this specimen being sent to an external lab?->No Release to patient->Automatic 25323&Blood^\S\^Venous&Venous TIBC will not be run. Is this specimen being sent to an external lab?->No Release to patient->Automatic 52989&Blood^\S\^Venous&Venous Performed By: #### C BC #### [place] [address] Platelet mean volume (Bld) [Entitic vol] 10.7 fL Normal [facility] Comment on above: Order Comment: With differential. Is this specimen being sent to an external lab?->No Release to patient->Automatic 22381&Blood^\S\^Venous&Venous TIBC will not be run. Is this specimen being sent to an external lab?->No Release to patient->Automatic 49429&Blood^\S\^Venous&Venous Result Comment: MPV is platelet range and age dependent Performed By: #### C BC #### [place] [address] Platelets (Bld) [#/Vol] 285 10*3/uL Normal 150-450 [facility] Comment on above: Order Comment: With differential. Is this specimen being sent to an external lab?->No Release to patient->Automatic 70373&Blood^\S\^Venous&Venous TIBC will not be run. Is this specimen being sent to an external lab?->No Release to patient->Automatic 45596&Blood^\S\^Venous&Venous Performed By: #### C BC #### [place] [address] RBC 4.90 10E12/L Normal 4.00-4.90 [facility] Comment on above: Order Comment: With differential. Is this specimen being sent to an external lab?->No Release to patient->Automatic 69777&Blood^\S\^Venous&Venous TIBC will not be run. Is this specimen being sent to an external lab?->No Release to patient->Automatic 09330&Blood^\S\^Venous&Venous Performed By: #### C BC #### [place] [address] WBC (Bld) [#/Vol] 8.8 10*3/uL Normal 4.5-11.0 [facility] Comment on above: Order Comment: With differential. Is this specimen being sent to an external lab?->No Release to patient->Automatic 35417&Blood^\S\^Venous&Venous TIBC will not be run. Is this specimen being sent to an external lab?->No Release to patient->Automatic 21133&Blood^\S\^Venous&Venous Performed By: #### C BC #### [place] [id number] Ferritinon 06-23-2021 Ferritin [Mass/Vol] 44 ng/mL Normal 10-291 [facility] Comment on above: Order Comment: With differential. Is this specimen being sent to an external lab?->No Release to patient->Automatic 81607&Blood^\S\^Venous&Venous TIBC will not be run. Is this specimen being sent to an external lab?->No Release to patient->Automatic 05590&Blood^\S\^Venous&Venous Performed By: #### F ERTN #### [place] [address] TSH with reflex T4FRon 06-23 TSH with reflex T4FR 2.171 uIU/mL Normal 0.350-5.500 [facility] Comment on above: Order Comment: With differential. Is this specimen being sent to an external lab?->No Release to patient->Automatic 01560&Blood^\S\^Venous&Venous TIBC will not be run. Is this specimen being sent to an external lab?->No Release to patient->Automatic 41908&Blood^\S\^Venous&Venous Performed By: #### T SHR #### [address] [address] Vitamin D 25 OHon 06-23-2021 25 OH Vitamin D 37 ng/mL Normal 30-100 [facility] Comment on above: Order Comment: With differential. Is this specimen being sent to an external lab?->No Release to patient->Automatic 81244&Blood^\S\^Venous&Venous TIBC will not be run. Is this specimen being sent to an external lab?->No Release to patient->Automatic 64945&Blood^\S\^Venous&Venous Result Comment: Refe rence ranges provided by [facility] are based on Endocrine Society Guidelines: Level Characterization <21 ng/mL Vitamin D deficiency 21-29 ng/mL Suboptimal Vitamin D status 30-100 ng/mL Optimal Vitamin D status >100 ng/mL Potentially toxic Vitamin D effects NOTE: New Reference Ranges effective 18 Performed By: #### V 25DH #### [place] [address] Progress Noteon 06-22-2021 Press Cleaner Authentication Interface Message Text Patient ID: Luz Hinojosa is a 20 y.o. female. Her chief complaint(s) include: Dizziness Assessment 1. Lightheadedness 2. Polyuria 3. Malaise Plan Luz was seen today for dizziness. Diagnoses and all orders for this visit: Lightheadedness - POCT urinalysis dipstick - POCT urine HCG - Venipuncture - Complete Blood Count with Diff (Clinic Collect) - Comprehensive metabolic panel (Clinic Collect) - C-reactive protein (Clinic Collect) - TSH with Reflex to T4, Free (Clinic Collect) - Ferritin (Clinic Collect) - Vitamin D 25 hydroxy (Clinic Collect) Polyuria - POCT urinalysis dipstick Malaise - Complete Blood Count with Diff (Clinic Collect) - Comprehensive metabolic panel (Clinic Collect) - C-reactive protein (Clinic Collect) - TSH with Reflex to T4, Free (Clinic Collect) - Ferritin (Clinic Collect) - Vitamin D 25 hydroxy (Clinic Collect) Will evaluate for possible organic etiology of symptoms, and if negative will attribute to mild acute illness. If persistent, will need additional workup. Subjective She is accompanied by her mother and sibling(s). Independent history obtained from mother. Dizziness This problem is new (complains of dizziness, like the room is spinning). The duration has been 2 weeks. The onset has been variable (worse when standing up, and when not eating). The patient's symptoms have included malaise and difficulty sleeping (per baseline). The patient's symptoms have included no fatigue, no fever, no decreased appetite (always hungry, eats all the time), no decreased fluid intake, no congestion, no rhinorrhea, no sore throat, no cough, no difficulty breathing, no diarrhea and no vomiting. (Urinary frequency for several months, I have to go every 20 minutes , no dysuria). Additional Parental Concerns: No syncope, though has felt like she might. Hands will shake when she feels dizzy. When feeling dizzy, will eat and this helps some. Denies chest pain, palpitations, diaphoresis. Review of Systems Neurological: Positive for dizziness. Objective Vital Signs 06/22/21 1731 06/22/21 1822 BP: 136/79 123/80 Pulse: 95 71 Temp: 37.1 C (98.7 F) TempSrc: Temporal Weight: 51.6 kg There is no height or weight on file to calculate BMI. Physical Exam Constitutional: She appears well. No distress. HENT: Head: Atraumatic. Ears: Right Ear: Tympanic membrane and external ear normal. Left Ear: Tympanic membrane and external ear normal. Nose: Nose normal. No nasal discharge. Mouth/Throat: Mucous membranes are moist. No pharynx erythema. No tonsillar exudate. Oropharynx is clear. Throat is not red. Eyes: Conjunctivae are normal. Neck: Neck supple. No neck adenopathy. Cardiovascular: Normal rate, regular rhythm, S1 normal and S2 normal. Heart murmur not heard. Pulmonary/Chest: Breath sounds normal. No respiratory distress. Abdominal: Soft. Bowel sounds are normal. She exhibits no distension and no mass. There is no hepatosplenomegaly. There is no abdominal tenderness. Musculoskeletal: Cervical back: Neck supple. Neurological: She is alert. Skin: Capillary refill takes less than 3 seconds. Skin is warm and dry. Skin is not pale. Findings: No rash. Vitals reviewed: Blood pressure 123/80, pulse 71, temperature 37.1 C (98.7 F), temperature source Temporal, weight 51.6 kg. Last Result POCT urine HCG Collection Time: 06/22/21 5:52 PM Result Value Ref Range hCG Urine POCT Negative Negative Control Line *Present Clear Background *Present Lot Number [id number] POCT urinalysis dipstick Collection Time: 06/22/21 5:51 PM Result Value Ref Range POCT, Leukocytes, Urine Negative Negative POCT Nitrite, Urine Negative Negative POCT Protein, Urine Trace Negative - Trace mg/dl POCT Urine pH 6.0 5.0 - 8.0 pH POCT Blood, Urine Negative Negative POCT Urine Specific [place] 1.030 1.005 - 1.030 POCT Ketones, Urine Negative Negative mg/dl POCT Glucose, Urine Negative Negative mg/dl Normal [facility] Progress Noteon 02-15-2021 Press Cleaner Authentication Interface Message Text Patient ID: Luz Hinojosa is a 20 y.o. female. Her chief complaint(s) include: Pharyngitis Assessment 1. Acute pharyngitis, unspecified etiology Plan Luz was seen today for pharyngitis. Diagnoses and all orders for this visit: Acute pharyngitis, unspecified etiology - POCT rapid strep A antigen - Strep culture Return if symptoms worsen or fail to improve. Subjective She is unaccompanied. Pharyngitis The onset has been acute. The duration has been 5 days. The pattern is persistent. The course is gradually worsening. Characterized by sharp and pain with swallowing. Aggravated by eating, drinking and talking. Relieved by: ice cream. The patient's symptoms have included swollen lymph nodes. The patient's symptoms have included no chills, no fatigue, no fever, no dizziness, no decreased appetite, no decreased fluid intake, no difficulty sleeping, no headaches, no eye discharge, no eye redness, no itchy eyes, no eye watering, no ear pain, no congestion, no rhinorrhea, no sneezing, no neck pain, no neck stiffness, no chest pain, no difficulty breathing, no shortness of breath, no wheezing, no stridor, no cough, no abdominal pain, no nausea, no vomiting, no diarrhea, no decreased urination, no muscle aches, no joint pain and no rash. The patient has been exposed to no sick contacts. The patient's home management has included nothing. Primary Care Review of Systems Objective Vital Signs 02/15/21 1252 Temp: 36.7 C (98.1 F) TempSrc: Temporal Weight: 50.9 kg There is no height or weight on file to calculate BMI. Physical Exam Constitutional: She appears well. She is active. No distress. HENT: Head: Atraumatic. Ears: Right Ear: Tympanic membrane normal. Tympanic membrane is not erythematous. No purulent effusion and no serous effusion is present. Left Ear: Tympanic membrane normal. Tympanic membrane is not erythematous. No purulent effusion and no serous effusion. Nose: No nasal discharge. Mouth/Throat: Mucous membranes are moist. Pharynx erythema present. Eyes: Conjunctivae are normal. Cardiovascular: Normal rate and regular rhythm. Heart murmur not heard. Pulmonary/Chest: Effort normal and breath sounds normal. There is normal air entry. No stridor. No respiratory distress. Air movement is not decreased. She has no wheezes. She has no rhonchi. She has no rales. Exhibits no retraction. Abdominal: Soft. Bowel sounds are normal. There is no hepatosplenomegaly. There is no abdominal tenderness. There is no guarding. Lymphadenopathy: Right anterior cervical adenopathy present. Left anterior cervical adenopathy present. Neurological: She is alert. Last Result POCT rapid strep A antigen Collection Time: 02/15/21 1:03 PM Result Value Ref Range Strep A Antigen None Detected None Detected Yellow Solution *Present Red Control Line *Present Clear Background *Present Lot Number [id number] Normal [facility] Strep Cultureon 02-15-2021 Strep Culture Is this specimen javier ng sent to an external lab?->No Release to patient->Automatic [id number]&Throat swab^^^Throat swab&Throat swab Strep Culture: No Beta hemolytic Streptococci isolated. Source: THRSW Collected: 02/15/21 13:17 Site: Throat swab Received : 02/15/21 20:06 Strep Culture FINAL 02/17/21 07:53 No Beta hemolytic Streptococci isolated. Normal [facility] Comment on above: Performed By: #### S TREP #### [place] [address] Progress Noteon 12-14-2020 Press Cleaner Authentication Interface Message Text Patient ID: Luz Hinojosa is a 19 y.o. female. Her chief complaint(s) include: 19 YEAR WELL CHILD Assessment 1. Routine general medical examination at a health care facility Plan Luz was seen today for 19 year well child. Diagnoses and all orders for this visit: Routine general medical examination at a health care facility - PHQ9 Assessment With Score - Health Risk Assessment - CRAFFT - Hearing Screening - Cancel: Vision Screening Return in about 1 year (around 12/14/2021) for well check. Subjective She is unaccompanied. 19 YEAR WELL CHILD Complications after delivery: parental limits and consequences for unacceptable behavior Home: Luz has an adult to turn to for help, is permitted and able to make independent decisions and pays bills. 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 Eating: Luz eats regular meals including fruits and vegetables, eats breakfast, limits fast food, drinks non-sweetened liquids and has a calcium source. Luz does not have concerns about body appearance, has not dieted in the last year and does not have an eating risk identified. Activities & Sports: Luz has friends. Drugs: Luz does not use tobacco, does not use drugs, does not use alcohol and does not vape. Safety: Luz has a violence free home, has peer relationships free from violence and uses seat belt. Luz does not use phone/text while driving and has no safety risk identified. Sex: The patient has a sexual partner. The patient is interested in males. The patient has had sex. The patient has 1 current sexual partners. The patient has had 2 lifetime sexual partners. The patient's sexual orientation is heterosexual. The patient's gender identity is cisgender. Typically, the patient uses Depo-Provera injections as current contraceptive method. The patient states that their last sexual encounter was 1 week ago. Condom used at last sexual encounter. The patient has not had an STD. The patient's partner has had an STD: no. STD screening completed within the last year. Luz has previously been : No The patient's history is Suicidality: Luz has ways to cope with stress and displays self-confidence. Luz has no depression and has no anxiety. PHQ-9 Score: 1 Menstruation Last Menstrual period: hormonal therapy and cannot remember Output Urine and Stool Pattern: Urine and Stool Pattern: Normal stool pattern, no constipation, normal urine pattern, no urinary problems and no nocturnal enuresis. Stool Consistency: soft Sleep Sleeping Difficulty: no difficulty sleeping Hours of sleep at a time: 8 Teen Anticipatory Guidance The following anticipatory guidance was reviewed during the visit: Nutrition: limit junk food/fast food and soft drinks. Safety: home safety and use safety helmet/gear with activities. Social: avoid or limit screen time and parental limits and consequences for unacceptable behavior. Health: age appropriate dental care, age appropriate sleep habits, avoid situations where drugs and alcohol are present, how to resist peer pressure to smoke, drink, use drugs, don't use tobacco/ alcohol/ drugs/ diet pills/ inhalants, ask questions if concerned about feelings for same or opposite sex, puberty/sexual development/contraception s/STDs, talk with trusted adult if feeling sad or nervous, learn to manage time and activities, learn about self and strengths, recognize and deal with stress and driving risks. Screenings Previous Vaccine Reactions: No. Life events information was reviewed-no referral needed Tuberculosis Concerns: Negative Tuberculosis Screen Concerns: no TB Risk Factors Hearing Vision Concerns: The caregiver has no concerns about the patient's hearing. The caregiver has no concerns about the patient's vision. Hyperlipidemia Concerns: Negative Hyperlipidemia Screen Concerns: no Hyperlipidemia Risk Factors Primary Care Review of Systems Objective Vital Signs 12/14/20 1030 BP: 116/69 Pulse: 88 Weight: 55.2 kg Height: 165.5 cm Body mass index is 20.15 kg/m . Physical Exam Constitutional: She appears well. She is active. No distress. HENT: Head: Atraumatic. Ears: Right Ear: Tympanic membrane and external ear normal. Left Ear: Tympanic membrane and external ear normal. Nose: Nose normal. Mouth/Throat: Mucous membranes are moist. Dentition is normal. Oropharynx is clear. Eyes: Conjunctivae and EOM are normal. No strabismus. Pupils are equal, round, and reactive to light. Neck: Neck supple. Thyroid normal. Cardiovascular: Normal rate, regular rhythm, S1 normal and S2 normal. Pulses are palpable. Heart murmur not heard. Pulmonary/Chest: Breath sounds normal. No respiratory distress. Exhibits no deformity. Abdominal: Soft. Bowel sounds are normal. She exh (more content not included)... Normal [facility] Press Cleaner Authentication Interface Message Text Luz Hinojosa is a 19 y.o. female patient. PHQ9 Assessment With Score Performed by: Page Adan APRN-CNP Authorized by: Page Adan APRN-CNP PHQ-9 See PHQ9 Flowsheet Feeling down, depressed, irritable or hopeless: Not at all Little interest or pleasure in doing things: Not at all Trouble falling or staying sleep, or sleeping too much: Not at all Poor appetite, weight loss, or overeating: Not at all Feeling tired or having little energy: Several days Feeling bad about yourself - or feeling that you are a failure, or have let yourself or your family down: Not at all Trouble concentrating on things, like school work, reading or watching TV: Not at all Moving or speaking so slowly that other people could have noticed. Or the opposite - being so fidgety or restless that you were moving around a lot more than usual: Not at all Thoughts that you would be better off , or of hurting yourself in some way: Not at all In the past year have you felt depressed or sad most days, even if you felt OK sometimes?: No If you are experiencing any of the problems on this form, how difficult have these problems made it for you to do your work, take care of things at home or get along with other people?: Not difficult at all Has there been a time in the past month when you have had serious thoughts about ending your life?: No Have you ever, in your whole life, tried to kill yourself or made a suicide attempt?: No PHQ-9 Total Score: 1 Health Risk Assessment - CRAFFT Authorized by: Page Adan RAILWAY SIGNALLING [facility] CRAFFT Results: 1. Drink more than a few sips of beer, wine, or any drink containing alcohol? Put 0 if none.: 0 2. Use any marijuana (weed, oil, or hash by smoking, vaping, or in food) or synthetic marijuana (like K2, Spice )? Put 0 if none.: 0 3. Use anything else to get high (like other illegal drugs, prescription or yrop-uit-pyyjccy medications, and things that you sniff, marte, or vape)? Put 0 if none.: 0 4. Use any tobacco or nicotine products (for example, cigarettes, e-cigarettes, hookahs or smokeless tobacco)?: 0 5. Have you ever ridden in a CAR driven by someone (including yourself) who was high or had been using alcohol or drugs?: No Electronically signed by: Page Adan, RAILWAY SIGNALLING ENGINEER-INSTRUCTOR [employer] Normal [facility] EMERGENCY REPORTon 9 EMERGENCY REPORT [facility] EMERGENCY ROOM REPORT NAME ACCOUNT SEX AGE ADMIT DISCHARGE PT MED. RECORD# NUMBER DATE DATE GIANFRANCO HINOJOSA [id number] Linette 18 04/01/19 04/01/19 3 LUZ Alves [id number] ROOM: ER DATE OF : 2000 DICTATING PHYSICIAN: Sherri Lisa CHIEF COMPLAINT/HISTORY OF PRESENT ILLNESS: This very nice 18-year-old lady who came to the emergency room with a cough and congestion for several days and she states she just is not getting better. She really has not taken any medications for it. She does have a local physician. She recently moved here and is looking for a job so she decided to come to the emergency room. PAST MEDICAL HISTORY: Denied. No history of asthma. No history of emphysema. No history of diabetes. No history of cardiac valvular disorder and no history of synthetic joints. MEDICATIONS: Denied. SOCIAL HISTORY: Nonsmoker. No alcohol use. Single. No children. She give her own history. REVIEW OF SYSTEMS: Otherwise, no neck discomfort. No back discomfort. No urine complaints. No vomiting. No diarrhea. No rash. No fevers. Some sore throat associated with this. She has a cough, which has been nonproductive. She denies any headaches. PHYSICAL EXAMINATION: She is seen in room number 6. Her vital signs: 98.7 temporal scanning, 127 brachial pulse, 16 respirations, 130/88 blood pressure, 97% saturation. Her head is normocephalic. She is smiling, pleasant, alert. Tympanic membranes, canals, on the right is normal. On the left the canal and pinnae are normal, but the tympanic membrane is injected with a bulge without any perforation. The patient states it is not bothering her, but nevertheless, appears to be an otitis media on that side. Pharynx is symmetric without any RPA, PPA, DRIVER TRAINER. There is no significant dental problems. She has no Danilo's. Her voice is excellent. Her lungs are clear, there is no retractions, there are no areas of dullness, no wheezing, even on cough. She has no retractions. Her heart rate and rhythm is regular. PMI is left chest. She has good radial and dorsalis pedis pulses. Her abdomen is soft. There is no discomfort. She is not overweight. Skin is warm and dry. She has a lot of runny nose associated with this. EMERGENCY DEPARTMENT COURSE AND TREATMENT: She has been taking DayQuil for this at home. She is placed on Zithromax, given her prescription for same. Discharged ambulatory from the emergency room. Follow up [facility]. Return p.r.n. as necessary. In general she appears to be nontoxic and she is pleasant Page 1 of 2 ASHISH LUZ Joselyn Emergency Room Report and alert and oriented. DIAGNOSIS: Upper respiratory infection, sinus congestion and left otitis media. Dictated By: Sherri Lisa DO 04/02/19 04:52 JOB #: [id number] Transcribed By: yesenia 04/02/19 06:23 Electronically signed by: E-SIGN SHERRI LISA DO 04/07/19 21:31 Page 2 of 2 LUZ HINOJOSA Emergency Room Report Normal [facility] XR Chest 2 Viewson 8 XR Chest 2 Views Exam Date/Time: 04/01/2018 23:14 EDT Reason for Exam: Cough Report STUDY: XR Chest 2 Views; 04/01/2018 11:14 pm INDICATION: Cough. COMPARISON: 09/12/2017 ACCESSION NUMBER(S): [id number] ORDERING CLINICIAN: Sherri Payton FINDINGS: CARDIOMEDIASTINAL SILHOUETTE: Cardiomediastinal silhouette is normal in size and configuration. LUNGS: No focal consolidation, effusion, edema, or pneumothorax. ABDOMEN: No remarkable upper abdominal findings. BONES: No acute osseous changes. IMPRESSION: 1. No evidence of acute cardiopulmonary process. FINAL REPORT Dictated: 04/02/2018 0:02 am Rene Toth MD Signed (Electronic Signature): 04/02/2018 0:02 am Signed by: Rene Toth MD Technologist: [facility] Normal [facility] Vital Signs Date Time Vital Sign Value Performing Clinician Facility 08-21-2023 14:36-0500 Body height 165.1 cm Anika Richardson MD Work Phone: [facility] 01-30-2024 14:36-0500 Body mass index (BMI) [Ratio] 19.87 kg/m2 Anika Richardson MD Work Phone: [facility] 08-21-2023 14:36-0500 Body weight 54.16 kg Anika Richardson MD Work Phone: [facility] 08-21-2023 14:36-0500 Diastolic blood pressure 70 mm[Hg] Anika Richardson MD Work Phone: [facility] 08-21-2023 14:36-0500 Systolic blood pressure 116 mm[Hg] Anika Richardson MD Work Phone: [facility] 06-19-2023 17:27-0500 SaO2% (BldA) [Mass fraction] 98 % Jordyn Thakur RAILWAY SIGNALLING ENGINEER-INSTRUCTOR [employer] Work Phone: [facility] 06-19-2023 17:22-0500 Body height 165.1 cm Jordyn Thakur RAILWAY SIGNALLING ENGINEER-INSTRUCTOR [employer] Work Phone: [facility] 06-19-2023 17:22-0500 Body mass index (BMI) [Ratio] 19.64 kg/m2 Jordyn Thakur RAILWAY SIGNALLING ENGINEER-INSTRUCTOR [employer] Work Phone: [facility] 06-19-2023 17:22-0500 Body temperature 98.2 [degF] Jordyn Thakur RAILWAY SIGNALLING ENGINEER-INSTRUCTOR [employer] Work Phone: [facility] 06-19-2023 17:22-0500 Body weight 53.52 kg Jordyn Thakur RAILWAY SIGNALLING ENGINEER-INSTRUCTOR [employer] Work Phone: [facility] 06-19-2023 17:22-0500 Diastolic blood pressure 81 mm[Hg] Jordyn Thakur RAILWAY SIGNALLING ENGINEER-INSTRUCTOR [employer] Work Phone: [facility] 06-19-2023 17:22-0500 Heart rate 98 /min Jordyn Thakur RAILWAY SIGNALLING ENGINEER-INSTRUCTOR [employer] Work Phone: [facility] 06-19-2023 17:22-0500 Respiratory rate 16 /min Jordyn Thakur RAILWAY SIGNALLING ENGINEER-INSTRUCTOR [employer] Work Phone: [phone] [place] [address] 06-19-2023 17:22-0500 Systolic blood pressure 124 mm[Hg] Jordyn Thakur RAILWAY SIGNALLING ENGINEER-INSTRUCTOR [employer] Work Phone: [facility] 05-18-2023 10:33-0400 Body height 165.1 cm Jordyn Thakur RAILWAY SIGNALLING ENGINEER-INSTRUCTOR [employer] Work Phone: [facility] 05-18-2023 10:33-0400 Body mass index (BMI) [Ratio] 19.64 kg/m2 Jordyn Thakur RAILWAY SIGNALLING ENGINEER-INSTRUCTOR [employer] Work Phone: [phone] [place] [address] 05-18-2023 10:33-0400 Body weight 53.52 kg Jordyn Thakur RAILWAY SIGNALLING ENGINEER-INSTRUCTOR [employer] Work Phone: [phone] [place] [address] 05-18-2023 10:33-0400 Diastolic blood pressure 74 mm[Hg] Jordyn Thakur RAILWAY SIGNALLING ENGINEER-INSTRUCTOR [employer] Work Phone: 2(553)[phone] [place] [address] 05-18-2023 10:33-0400 Heart rate 98 /min Jordyn Thakur RAILWAY SIGNALLING ENGINEER-INSTRUCTOR [employer] Work Phone: [phone] [place] [address] 05-18-2023 10:33-0400 SaO2% (BldA) [Mass fraction] 99 % Jordyn Thakur RAILWAY SIGNALLING ENGINEER-INSTRUCTOR [employer] Work Phone: [facility] 05-18-2023 10:33-0400 Systolic blood pressure 107 mm[Hg] Jordyn Thakur RAILWAY SIGNALLING ENGINEER-INSTRUCTOR [employer] Work Phone: [facility] 04-23-2023 09:48-0400 Body height 165.1 cm Kemi Echevarria MD Work Phone: [facility] 04-23-2023 09:48-0400 Body mass index (BMI) [Ratio] 19.64 kg/m2 Kemi Echevarria MD Work Phone: [facility] 04-23-2023 09:48-0400 Body weight 53.52 kg Kemi Echevarria MD Work Phone: [phone] [place] [address] 04-23-2023 09:48-0400 Diastolic blood pressure 60 mm[Hg] Kemi Echevarria MD Work Phone: [facility] 04-23-2023 09:48-0400 Heart rate 125 /min Kemi Echevarria MD Work Phone: [facility] 04-23-2023 09:48-0400 SaO2% (BldA) [Mass fraction] 99 % Kemi Echevarria MD Work Phone: [facility] 04-23-2023 09:48-0400 Systolic blood pressure 120 mm[Hg] Kemi Echevarria MD Work Phone: [facility] 04-13-2023 17:00-0400 Diastolic blood pressure 88 mm[Hg] Page Josy Other Phone: [facility] 04-13-2023 17:00-0400 Heart rate 83 /min Page Josy Other Phone: [facility] 04-13-2023 17:00-0400 Respiratory rate 18 /min Page Josy Other Phone: [facility] 04-13-2023 17:00-0400 SaO2% (BldA) [Mass fraction] 100 % Page Josy Other Phone: [facility] 04-13-2023 17:00-0400 Systolic blood pressure 128 mm[Hg] Page Josy Other Phone: [facility] 04-13-2023 15:13-0400 Body temperature 98.06 [degF] Page Josy Other Phone: [facility] 04-13-2023 15:13-0400 Body weight 55 kg Page Josy Other Phone: [facility] 04-11-2023 10:00-0400 Body temperature 97.88 [degF] Page Josy Other Phone: [facility] 04-11-2023 10:00-0400 Diastolic blood pressure 84 mm[Hg] Page Josy Other Phone: [facility] 04-11-2023 10:00-0400 Heart rate 81 /min Page Josy Other Phone: [facility] 04-11-2023 10:00-0400 Respiratory rate 17 /min Page Josy Other Phone: [facility] 04-11-2023 10:00-0400 SaO2% (BldA) [Mass fraction] 99 % Page Josy Other Phone: [facility] 04-11-2023 10:00-0400 Systolic blood pressure 122 mm[Hg] Page Josy Other Phone: [facility] 11-06-2022 20:48-0400 Body height 165.1 cm Page Josy Other Phone: [facility] 11-06-2022 20:48-0400 Body temperature 97.7 [degF] Page Josy Other Phone: [facility] 11-06-2022 20:48-0400 Body weight 54.5 kg Page Josy Other Phone: [facility] 11-06-2022 20:48-0400 Diastolic blood pressure 79 mm[Hg] Page Josy Other Phone: [facility] 11-06-2022 20:48-0400 Heart rate 92 /min Page Josy Other Phone: [facility] 11-06-2022 20:48-0400 Respiratory rate 18 /min Page Josy Other Phone: [facility] 11-06-2022 20:48-0400 SaO2% (BldA) [Mass fraction] 97 % Page Josy Other Phone: [facility] 11-06-2022 20:48-0400 Systolic blood pressure 133 mm[Hg] Page Josy Other Phone: [facility] 08-24-2022 18:30-0500 Diastolic blood pressure 105 mm[Hg] Page Josy Other Phone: [facility] 08-24-2022 18:30-0500 Heart rate 88 /min Page Josy Other Phone: [facility] 08-24-2022 18:30-0500 Respiratory rate 15 /min Page Josy Other Phone: [facility] 08-24-2022 18:30-0500 SaO2% (BldA) [Mass fraction] 100 % Page Josy Other Phone: [facility] 08-24-2022 18:30-0500 Systolic blood pressure 129 mm[Hg] Page Josy Other Phone: [facility] 08-24-2022 16:15-0500 Body height 165.1 cm Page Josy Other Phone: [facility] 08-24-2022 16:15-0500 Body temperature 97.7 [degF] Page Josy Other Phone: [facility] 08-24-2022 16:15-0500 Body weight 54.5 kg Page Josy Other Phone: [facility] 08-03-2022 11:02-0500 Body height 165.1 cm Jordyn Thakur Work Phone: [facility] Work Phone: 08-03-2022 11:02-0500 Body mass index (BMI) [Ratio] 21.2 kg/m2 Jordyn Thakur Work Phone: [facility] Work Phone: 08-03-2022 11:02-0500 Body surface area Derived from formula 1.63 m2 Jordyn Jason Thakur Work Phone: [facility] Work Phone: 08-03-2022 11:02-0500 Body weight 57.78 kg Jordyn D Thakur Work Phone: [facility] Work Phone: 08-03-2022 11:02-0500 Diastolic blood pressure 74 mm[Hg] Jordyn D Thakur Work Phone: [facility] Work Phone: 08-03-2022 11:02-0500 Heart rate 88 /min Jordyn Jason Thakur Work Phone: [facility] Work Phone: 08-03-2022 11:02-0500 Systolic blood pressure 116 mm[Hg] Jordyn Jason Thakur Work Phone: [facility] Work Phone: 06-14-2022 15:28-0500 Body height 165.1 cm Jordyn Jason Thakur Work Phone: [facility] Work Phone: 06-14-2022 15:28-0500 Body mass index (BMI) [Ratio] 19.64 kg/m2 Jordyn D Thakur Work Phone: [facility] Work Phone: 06-14-2022 15:28-0500 Body surface area Derived from formula 1.58 m2 Jordny D Thakur Work Phone: [facility] Work Phone: 06-14-2022 15:28-0500 Body weight 53.52 kg Jordyn D Thakur Work Phone: [facility] Work Phone: 06-14-2022 15:28-0500 Diastolic blood pressure 82 mm[Hg] Jordyn Jason Thakur Work Phone: [facility] Work Phone: 06-14-2022 15:28-0500 Heart rate 101 /min Jordyn Jason Ofe Work Phone: [facility] Work Phone: 06-14-2022 15:28-0500 Systolic blood pressure 118 mm[Hg] Jordyn Gomez Ofe Work Phone: [facility] Work Phone: 06-06-2022 14:14-0500 Body height 165.1 cm Jordyn Jason Ashley Work Phone: [facility] Work Phone: 06-06-2022 14:14-0500 Body mass index (BMI) [Ratio] 19.64 kg/m2 Jordyn Gomez Ashley Work Phone: [facility] Work Phone: 06-06-2022 14:14-0500 Body surface area Derived from formula 1.58 m2 Jordyn Jason Ashley Work Phone: [facility] Work Phone: 06-06-2022 14:14-0500 Body weight 53.52 kg Jordyn Gomez Ashley Work Phone: [facility] Work Phone: 06-06-2022 14:14-0500 Diastolic blood pressure 70 mm[Hg] Jordyn Gomez Ramirez Work Phone: [facility] Work Phone: 06-06-2022 14:14-0500 Heart rate 108 /min Jordyn Nguyễnkins Work Phone: [facility] Work Phone: 06-06-2022 14:14-0500 SaO2% (BldA) [Mass fraction] 99 % Jordyn Gomez Ramirez Work Phone: [facility] Work Phone: 06-06-2022 14:14-0500 Systolic blood pressure 112 mm[Hg] Jordyn D Ramirez Work Phone: [facility] Work Phone: 05-02-2022 08:59-0400 Body height 165.1 cm Jordyn D Ramirez Work Phone: [facility] Work Phone: 05-02-2022 08:59-0400 Body mass index (BMI) [Ratio] 17.81 kg/m2 Jordyn D Ramirez Work Phone: [facility] Work Phone: 05-02-2022 08:59-0400 Body surface area Derived from formula 1.52 m2 Jordyn D Ramirez Work Phone: [facility] Work Phone: 05-02-2022 08:59-0400 Body weight 48.53 kg Jordyn D Ramirez Work Phone: [facility] Work Phone: 05-02-2022 08:59-0400 Diastolic blood pressure 68 mm[Hg] Jordyn D Ramirez Work Phone: [facility] Work Phone: 05-02-2022 08:59-0400 Heart rate 118 /min Jordyn D Ramirez Work Phone: [facility] Work Phone: 05-02-2022 08:59-0400 Systolic blood pressure 102 mm[Hg] Jordyn D Ramirez Work Phone: [facility] Work Phone: 03-03-2022 14:28-0400 Body height 165.1 cm Jordyn D Ramirez Work Phone: [facility] Work Phone: 03-03-2022 14:28-0400 Body mass index (BMI) [Ratio] 18.47 kg/m2 Jordyn D Ramirez Work Phone: [facility] Work Phone: 03-03-2022 14:28-0400 Body surface area Derived from formula 1.54 m2 Jordyn Nguyễnkins Work Phone: [facility] Work Phone: 03-03-2022 14:28-0400 Body weight 50.35 kg Jordyn D Ramirez Work Phone: [facility] Work Phone: 03-03-2022 14:28-0400 Diastolic blood pressure 72 mm[Hg] Jordyn D Ramirez Work Phone: [facility] Work Phone: 03-03-2022 14:28-0400 Heart rate 84 /min Jordyn D Ramirez Work Phone: [facility] Work Phone: 03-03-2022 14:28-0400 Systolic blood pressure 110 mm[Hg] Jordyn D Ramirez Work Phone: [facility] Work Phone: 01-04-2021 13:50-0400 Diastolic blood pressure 70 mm[Hg] Page Josy Other Phone: [facility] 01-04-2021 13:50-0400 Diastolic blood pressure 73 mm[Hg] Page Josy Other Phone: [facility] 01-04-2021 13:50-0400 Diastolic blood pressure 77 mm[Hg] Page Josy Other Phone: [facility] 01-04-2021 13:50-0400 Heart rate 79 /min Page Josy Other Phone: [facility] 01-04-2021 13:50-0400 Heart rate 77 /min Page Josy Other Phone: [facility] 01-04-2021 13:50-0400 Heart rate 89 /min Page Josy Other Phone: [facility] 01-04-2021 13:50-0400 Systolic blood pressure 104 mm[Hg] Page Josy Other Phone: [facility] 01-04-2021 13:50-0400 Systolic blood pressure 113 mm[Hg] Page Josy Other Phone: [facility] 01-04-2021 13:38-0400 Respiratory rate 20 /min Page Josy Other Phone: [facility] 01-04-2021 11:45-0400 Body height 165.1 cm Page Josy Other Phone: [facility] 01-04-2021 11:45-0400 Body temperature 98.06 [degF] Page Josy Other Phone: [facility] 01-04-2021 11:45-0400 Body weight 60.5 kg Page Josy Other Phone: [facility] 01-04-2021 11:45-0400 SaO2% (BldA) [Mass fraction] 98 % Page Josy Other Phone: [facility] Encounters Encounter Date Encounter Type Care Provider Facility Start: 10-10-2023 End: 10-10-2023 ambulatory [facility] Jason [facility] Start: 10-10-2023 End: 10-10-2023 Office outpatient visit 15 minutes Jordyn Thakur RAILWAY SIGNALLING ENGINEER-INSTRUCTOR [employer] Work Phone: [facility] Comment on above: Generalized anxiety disorder with panic attacks Start: 09-22-2023 End: 09-23-2023 ambulatory Anika Bob Facility:[facility] Start: 09-22-2023 End: 09-22-2023 Patient encounter procedure Anika Bob [facility] Start: 09-19-2023 End: 09-19-2023 ambulatory [facility] Start: 09-19-2023 End: 09-19-2023 Office outpatient visit 25 minutes Jordyn Thakur RAILWAY SIGNALLING ENGINEER-INSTRUCTOR [employer] Work Phone: [facility] Comment on above: Nausea (Primary Dx); Nasal congestion; Acute non-recurrent sinusitis, unspecified location Start: 09-12-2023 End: 09-12-2023 ambulatory [facility] Start: 09-12-2023 End: 09-12-2023 Office outpatient visit 25 minutes Jordyn Thakur RAILWAY SIGNALLING ENGINEER-INSTRUCTOR [employer] Work Phone: [facility] Comment on above: Generalized anxiety disorder with panic attacks (Primary Dx) Start: 08-27-2023 End: 08-28-2023 ambulatory [facility] Start: 08-21-2023 End: 08-21-2023 ambulatory ANIKA Herbert [facility] Ambulatory Start: 08-21-2023 End: 08-21-2023 Office outpatient new 30 minutes Anika Richardson MD Work Phone: [facility] Office Building Comment on above: Family planning coun seling (Primary Dx) Start: 07-13-2023 End: 07-13-2023 ambulatory [facility] Start: 06-19-2023 End: 06-19-2023 Emergency department patient visit [facility] Start: 06-19-2023 End: 06-19-2023 Emergency department patient visit Jordyn Thakur RAILWAY SIGNALLING ENGINEER-INSTRUCTOR [employer] Work Phone: [facility] Emergency Medicine Comment on above: Urinary tract infect ion without hematuria, site unspecified (Primary Dx) Start: 05-18-2023 End: 05-18-2023 ambulatory [facility] Start: 05-18-2023 End: 05-18-2023 Office outpatient visit 25 minutes Jordyn Thakur RAILWAY SIGNALLING ENGINEER-INSTRUCTOR [employer] Work Phone: [facility] Comment on above: Urinary frequency (P rimary Dx); Urinary tract infection with hematuria, site unspecified; Generalized anxiety disorder with panic attacks; Gastroesophageal reflux disease without esophagitis Start: 04-23-2023 End: 04-23-20[facility] Start: 04-23-2023 End: 04-23-2023 Office outpatient visit 25 minutes Kemi Echevarria MD Work Phone: [facility] Comment on above: H/O urinary tract in fection (Primary Dx); Generalized anxiety disorder with panic attacks Start: 04-13-2023 End: 04-13-2023 Emergency department patient visit Chris Blue [facility] Emergency 14 Start: 04-09-2023 End: 04-11-2023 ambulatory Ms. Jordyn Thakur Facility:[id number] Start: 04-09-2023 End: 04-11-2023 Evaluation and management of inpatient Bautista Villanueva [facility] 3 [facility] 310 01 Start: 03-27-2023 End: 03-27-2023 Emergency department patient visit [facility] ARIE [facility] Start: 02-14-2023 End: 02-14-2023 ambulatory [facility] Start: 11-06-2022 End: 11-06-2022 Emergency department patient visit Alie Flor [facility] Emergency 11 Start: 10-20-2022 End: 10-20-2022 ambulatory [facility] Start: 10-20-2022 End: 10-20-2022 Office outpatient visit 15 minutes Jordyn Thakur RAILWAY SIGNALLING ENGINEER-INSTRUCTOR [employer] Work Phone: [facility] Medicine Comment on above: Vaginal yeast infect ion (Primary Dx) Start: 10-02-2022 End: 10-02-2022 Emergency department patient visit JORDYN SARGENT [facility] Start: 08-31-2022 ambulatory INSTRUCTOR [employer] JORDYN Sue acility:[id number] Start: 08-24-2022 End: 08-24-2022 Emergency department patient visit Tyrell Pettitviviane [facility] Emergency Start: 08-03-2022 Office outpatient vi sit 25 minutes Jordyn Thakur Work Phone: [facility] Medicine Work Phone: Start: 08-03-2022 ambulatory INSTRUCTOR [employer] JORDYN Sue acility:[id number] Start: 06-14-2022 Office outpatient vi sit 15 minutes Jordyn Thakur Work Phone: [facility] Work Phone: Start: 06-14-2022 ambulatory INSTRUCTOR [employer] JORDYN Sue acility:[id number] Start: 06-07-2022 End: 06-11-2022 ambulatory [facility] Start: 06-06-2022 ambulatory INSTRUCTOR [employer] JORDYN Sue acility:[id number] Start: 06-06-2022 Office outpatient vi sit 10 minutes Jordyn Ramirez Work Phone: [facility] Work Phone: Start: 05-23-[address] Kemi Echevarria Fac ility:[id number] Start: 05-10-2022 End: 05-14-2022 ambulatory [facility] Start: 05-02-2022 Office outpatient vi sit 25 minutes Jordyn Ramirez Work Phone: [facility] Work Phone: Start: 05-02-2022 ambulatory INSTRUCTOR [employer] JORDYN Sue acility:[id number] Start: 04-25-2022 End: 04-25-2022 ambulatory [facility] Start: 04-25-2022 End: 04-25-2022 Office outpatient new 20 minutes [facility] Work Phone: [facility] Comment on above: Closed nondisplaced fracture of distal phalanx of left middle finger, initial encounter (Primary Dx) Start: 04-24-2022 End: 04-24-2022 Emergency department patient visit STANLEY EZE QUILES [facility] Start: 03-15-2022 Chart Update Jordyn Ramirez Work Phone: [facility] Work Phone: Start: 03-03-2022 Office outpatient ne w 45 minutes Jordyn Ramirez Work Phone: [facility] Work Phone: Start: 01-04-2021 End: 01-04-2021 Emergency department patient visit Alie Rodriguez [facility] Emergency 13 Start: 04-01-2019 End: 04-01-2019 Emergency department patient visit DILIA BURNS [facility] Start: 10-27-2018 End: 10-27-2018 Emergency department patient visit Page Adan Facility:[facility] Start: 04-01-2018 End: 04-02-2018 Emergency department patient visit Page Adan Facility:[facility] Start: 01-24-2018 End: 01-24-2018 Emergency department patient visit Page Adan Facility:[facility] Procedures Date Procedure Procedure Detail Performing Clinician Start: 08-27-2023 PROGESTERONE JORDYN THAKUR Start: 07-13-2023 Bacteria identified in Urine by Culture JORDYN THAKUR Start: 07-13-2023 POCT UA AUTOMATED MA NUALLY RESULTED JORDYN THAKUR Start: 06-19-2023 Bacteria identified in Urine by Culture JORDYN THAKUR Start: 06-19-2023 EXTRA URINE BRODY TUBE A PABLO THAKUR Start: 06-19-2023 HCG, URINE, QUALITATIVE JORDYN THAKUR Start: 06-19-2023 MICROSCOPIC ONLY, URINE JORDYN THAKUR Start: 06-19-2023 URINALYSIS WITH REFL EX CULTURE AND MICROSCOPIC JORDYN THAKUR Start: 06-19-2023 Urinalysis microscop ic panel - Urine Qualitative by Automated Bela López PA-C Work Phone: Start: 06-19-2023 Urine test visual color cmprsn meths Bela López PA-C Work Phone: Start: 06-19-2023 Urnls dip stick/tabl et reagent auto microscopy Bela López PA-C Work Phone: Start: 05-18-2023 Bacteria identified in Urine by Culture JORDYN THAKUR Start: 05-18-2023 POCT UA AUTOMATED MA NUALLY RESULTED JORDYN THAKUR Start: 05-18-2023 Urnls dip stick/tabl et rgnt auto w/o microscopy Jordyn Thakur RAILWAY SIGNALLING ENGINEER-INSTRUCTOR [employer] Work Phone: Start: 04-14-2023 Lipid 1996 panel - S charley or Plasma Kemi Echevarria MD Work Phone: Start: 03-10-2022 Lipid 1996 panel - S charley or Plasma Jordyn Thakur RAILWAY SIGNALLING ENGINEER-INSTRUCTOR [employer] Work Phone: Start: 01-04-2021 End: 01-04-2021 EKG impression Beverly Young Extraction of wisdom tooth A my D Ashley Work Phone: Comment on above: x 4 extracted 4 year s ago; Plan of Treatment Date Care Activity Detail Author Start: 2050 Zoster Vaccines (1 of 2) Zoste r Vaccines (1 of 2) [facility] Start: 04-14-2028 Lipid panel Lipid Panel [facility] Start: 03-10-2027 Lipid panel Lipid Panel [facility] Start: 04-11-2024 End: 04-11-2024 Patient encounter procedure 04/11/2024 4:20 PM EDT Office Visit [facility] [address] [place] [id number] Jordyn Thakur, RAILWAY SIGNALLING ENGINEER-INSTRUCTOR [employer] [address] [place] [id number] [facility] Start: 03-31-2024 DTaP/Tdap/Td Vaccine s (7 - Td or Tdap) DTaP/Tdap/Td Vaccines (7 - Td or Tdap) [facility] Start: 03-31-2024 Tetanus vaccination Tetanus: Every 1 0yrs [facility] Start: 01-20-2024 Influenza vaccination Influenza Vacc ine (#1) [facility] Comment on above: Postponed from 03/23 (Patient Refused) Start: 10-22-2023 End: 10-22-2023 Patient encounter procedure 10/22/2023 3:30 PM EDT Office Visit [facility] Medical Office Building [address] [place] [address] Anika Richardson MD [address] [facility], [address] [place] [id number] [facility] Office Building Start: 10-17-2023 End: 10-17-2023 Patient encounter procedure 10/17/2023 1:00 PM EDT Office Visit [facility] Office Building [address] [place] [address] Mari Hensley MD [address] [place] [address] [facility] Medical Office Building Start: 10-10-2023 End: 10-10-2023 Telemedicine consultation with patient 10/10/2023 3:40 PM EDT Telemedicine [facility] [address] [facility] [place] [address] Jordyn Thakur, RAILWAY SIGNALLING ENGINEER-INSTRUCTOR [employer] [address] [facility] [place], [place] [id number] [facility] Start: 08-27-2023 End: 08-21-2024 Progesterone [Mass/volume] in Serum or Plasma Progesterone Lab Routine Family planning counseling Expected: 08/27/2023 (Approximate), Expires: 08/21/2024 [facility] Service Area Work Phone: Comment on above: Expected: 08/27/2023 (Approximate), Expires: 08/21/2024 Start: 07-13-2023 End: 07-13-2023 Patient encounter procedure 07/13/2023 9:00 AM EST Office Visit [facility] [address] [facility] [place] [phone] Jordyn Thakur, RAILWAY SIGNALLING ENGINEER-INSTRUCTOR [employer] [address] [facility] [place] [address] [facility] Start: 07-03-2023 End: 07-03-2023 Patient encounter procedure 07/03/2023 2:15 PM EST Office Visit [facility] [address] [place] [address] Lola Devine MD MPH [address] [facility], [address] [place] [address] [facility] Start: 05-18-2023 End: 05-25-2023 Bacteria identified in Urine by Culture [facility] Service Area Work Phone: Comment on above: Expected: 05/18/2023 (Approximate), Expires: 05/25/2023 Start: 04-09-2023 End: 04-09-2024 oxyCODONE Immediate Release 5 mg Oral Tablet Every 4 Hours ; Tablet (OXYIR, ROXICODONE)DOSE = 5 mg Oral Every 4 Hours, PRN Pain - Severe (7-10) Start: 09-Apr-2023 End: 08-Apr-2024 Ordered: 09-Apr-2023 Delgado Nix Intent [facility] [place] [facility] Start: 04-09-2023 End: 04-09-2024 [facility] Start: 03-06-2023 FUV, Provider: Jordyn Ramirez, Status: Pen, Time: 2:40 PM FUV, Provider: Jordyn Ramirez, Status: Pen, Time: 2:40 PM [facility] Internal Medicine Work Phone: Start: 03-06-2023 FUV, Provider: Jordyn Thakur, Status: Pen, Time: 2:40 PM FUV, Provider: Jordyn Thakur, Status: Pen, Time: 2:40 PM [facility] Work Phone: Start: 03-06-2023 Patient encounter procedure Outpatient [facility] Start: 06-Mar-2023 14:40 Jordyn Thakur Intent [facility] Start: 03-06-2023 End: 03-06-2023 Patient encounter procedure 03/06/2023 2:40 PM EDT Office Visit [facility] Internal [facility] [address] [place] [place] [id number] Jordyn Thakur, RAILWAY SIGNALLING ENGINEER-INSTRUCTOR [employer] [address] [facility] [place] [address] [facility] Internal Medicine Start: 10-26-2022 Screening for Chlamy ankita trachomatis Chlamydia Screening [facility] Start: 09-14-2022 FUV, Provider: Jordyn Thakur, Status: Pen, Time: 2:20 PM FUV, Provider: Jordyn Thakur, Status: Pen, Time: 2:20 PM [facility] Medicine Work Phone: Start: 09-14-2022 Patient encounter procedure [facility] Start: 08-31-2022 Patient encounter [facility] Start: 08-10-2022 NPV, Provider: Jocelyne Bae, Status: Pen, Time: 1:00 PM NPV, Provider: Jocelyne Bae, Status: Pen, Time: 1:00 PM [facility] Medicine Work Phone: Start: 05-23-2022 FUV, Provider: Kemi Echevarria, Status: Pen, Time: 2:00 PM FUV, Provider: Kemi Echevarria, Status: Pen, Time: 2:00 PM [facility] Medicine Work Phone: Start: 05-10-2022 End: 05-10-2022 Patient encounter procedure 05/10/2022 Office Visit Sports Medicine Joselin Noyola, INSTRUCTOR [employer] [address] [place] [address] [facility] Start: 03-31-2022 FUV, Provider: Jordyn Ramirez, Status: Pen, Time: 2:20 PM FUV, Provider: Jordyn Ramirez, Status: Pen, Time: 2:20 PM [facility] Medicine Work Phone: Start: 03-23-2022 Influenza vaccination [facility] Start: 2021 Screening for malign ant neoplasm of cervix [facility] Start: 12-14-2021 History and physical examination, annual for health maintenance Wellness Visit [facility] Start: 2018 Hepatitis C screening Hepatitis C Sc reening [facility] Start: 12-29-2015 HIV screening HIV Screening [facility] Start: 2012 Depression screening using PHQ-9 (Patient Health Questionnaire 9) score Depression Screening (PHQ-2/9) [facility] Start: 2006 Pneumococcal Vaccine : Pediatrics (0 to 5 Years) and At-Risk Patients (6 to 64 Years) (1 - PCV) Pneumococcal Vaccine: Pediatrics (0 to 5 Years) and At-Risk Patients (6 to 64 Years) (1 - PCV) [facility] Start: 12-29-2003 Well Child Visit (WC V) - Annual Well Child Visit (WCV) - Annual [facility] Start: 06-29-2001 COVID-19 Vaccine (#1) COVID-19 Vacci ne (#1) [facility] Start: 2000 Hearing Screening (#1) Hearing Scree wilberto (#1) [facility] Start: 2000 HIV screening HIV Screening [facility] Start: 2000 Screening for Chlamy ankita trachomatis Chlamydia and Gonorrhea Screening [facility] Start: 2000 Screening for malign ant neoplasm of cervix Pap Smear [facility] Start: 2000 Yearly Adult Physical Yearly Adult P hysical [facility] End: 06-19-2023 Bacteria identified in Urine by Culture [facility] Work Phone: Comment on above: Once (Lab) for 1 Occ urrences starting 06/19/2023 until 06/19/2023 End: 06-19-2023 Extra Urine [facility] Work Phone: Comment on above: Once for 1 Occurrenc es starting 06/19/2023 until 06/19/2023 End: 06-19-2023 Urinalysis complete W Reflex Culture panel - Urine [facility] Service Area Work Phone: Comment on above: Once (Lab) for 1 Occ urrences starting 06/19/2023 until 06/19/2023 Immunizations Immunization Date Immunization Notes Care Provider Radha mejia 04-11-2019 measles, mumps and rubella virus vaccine Jordyn Thakur Work Phone: [facility] Work Phone: 04-11-2019 varicella virus vaccine Jordyn Thakur Work Phone: [facility] Work Phone: 08-08-2018 meningococcal B vacc ine, recombinant, OMV, adjuvanted Jordyn Thakur Work Phone: [facility] Work Phone: 04-17-2018 hepatitis A vaccine, pediatric/adolescent dosage, 2 dose schedule Jordyn Thakur Work Phone: [facility] Work Phone: 04-17-2018 meningococcal B vacc ine, recombinant, OMV, adjuvanted Jordyn Jason Thakur Work Phone: [facility] Work Phone: 04-02-2017 hepatitis A vaccine, pediatric/adolescent dosage, 2 dose schedule Jordyn Thakur Work Phone: [facility] Work Phone: 04-02-2017 Human Papillomavirus 9-valent vaccine Jordyn Thakur Work Phone: [facility] Work Phone: 04-02-2017 meningococcal polysaccharide (groups A, C, Y and W-135) diphtheria toxoid conjugate vaccine (MCV4P) Jordyn Thakur Work Phone: [facility] Work Phone: 01-14-2015 HPV, unspecified formulation Jordyn Thakur Work Phone: [facility] Work Phone: 01-14-2015 varicella virus vaccine Jordyn Thakur Work Phone: [facility] Work Phone: 03-31-2014 meningococcal polysaccharide (groups A, C, Y and W-135) diphtheria toxoid conjugate vaccine (MCV4P) Jordyn Thakur Work Phone: [facility] Work Phone: 03-31-2014 tetanus toxoid, redu karina diphtheria toxoid, and acellular pertussis vaccine, adsorbed Jordyn Thakur Work Phone: [facility] Work Phone: 06-18-2009 novel Influenza-H1N1 -09, live virus for nasal administration Jordyn Thakur Work Phone: [facility] Work Phone: 06-18-2009 influenza virus vacc ine, unspecified formulation Jordyn Thakur RAILWAY SIGNALLING ENGINEER-INSTRUCTOR [employer] Work Phone: [facility] Work Phone: 04-12-2007 diphtheria, tetanus toxoids and acellular pertussis vaccine Jordyn Thaukr Work Phone: [facility] Work Phone: 04-12-2007 measles, mumps and rubella virus vaccine Jordyn Thakur Work Phone: [facility] Work Phone: 04-12-2007 poliovirus vaccine, inactivated Jordyn Thakur Work Phone: [facility] Work Phone: 05-18-2003 pneumococcal conjuga te vaccine, 7 valent Jordyn Thakur Work Phone: [facility] Work Phone: 08-22-2002 diphtheria, tetanus toxoids and acellular pertussis vaccine, unspecified formulation Jordyn Thakur Work Phone: [facility] Work Phone: 12-23-2001 diphtheria, tetanus toxoids and acellular pertussis vaccine, unspecified formulation Jordyn Thakur Work Phone: [facility] Work Phone: 12-23-2001 haemophilus influenz ae type b vaccine, conjugate unspecified formulation Jordyn Thakur Work Phone: [facility] Work Phone: 12-23-2001 hepatitis B vaccine, pediatric or pediatric/adolescent dosage Jordyn Thakur Work Phone: [facility] Work Phone: 12-23-2001 measles, mumps and rubella virus vaccine Jordyn Thakur Work Phone: [facility] Work Phone: 12-23-2001 pneumococcal conjuga te vaccine, 7 valent Jordyn Thakur Work Phone: [facility] Work Phone: 12-23-2001 poliovirus vaccine, inactivated Jordyn Jason Thakur Work Phone: [facility] Work Phone: 12-23-2001 varicella virus vaccine Jordyn Thakur Work Phone: [facility] Work Phone: 06-12-2001 diphtheria, tetanus toxoids and acellular pertussis vaccine, unspecified formulation Jordyn Thakur Work Phone: [facility] Work Phone: 06-12-2001 haemophilus influenz ae type b vaccine, conjugate unspecified formulation Jordyn Jason Thakur Work Phone: [facility] Work Phone: 06-12-2001 hepatitis B vaccine, pediatric or pediatric/adolescent dosage Jordyn Jason Thakur Work Phone: [facility] Work Phone: 06-12-2001 poliovirus vaccine, inactivated Jordyn Jason Thakur Work Phone: [facility] Work Phone: 03-28-2001 diphtheria, tetanus toxoids and acellular pertussis vaccine, unspecified formulation Jordyn Gomez Thakur Work Phone: [facility] Work Phone: 03-28-2001 haemophilus influenz ae type b vaccine, conjugate unspecified formulation Jordyn Thakur Work Phone: [facility] Work Phone: 03-28-2001 hepatitis B vaccine, pediatric or pediatric/adolescent dosage Jordyn Thakur Work Phone: [facility] Work Phone: 03-28-2001 pneumococcal conjuga te vaccine, 7 valent Jordyn Jason Thakur Work Phone: [facility] Work Phone: 03-28-2001 poliovirus vaccine, inactivated Jordyn Jason Thakur Work Phone: [facility] Work Phone: Payers Date Payer Category Payer Private Health Insurance [id number] 2020 Medicaid [facility] MANAGED [facility] MEDICAID COMMUNITY PLAN [id number] 2020-Present [phone] [address] [place] [address] [id number] 2019 Medicaid [id number] 2019 Medicaid [id number] 2018 Unknown 2000 Unknown [id number] 2.16.840.1.795397.3.579.2. 651 2000 Unknown [id number] 2.16.840.1.413011.3.579.2. 3 2000 Unknown [id number] 2.16.840.1.341265.3.579.2. 903 2000 Unknown [id number] 2.16.840.1.538244.3.579.2. 90 2000 Unknown [id number] 2.16.840.1.698404.3.579.2. 903 2000 Unknown [id number] 2.16.840.1.706779.3.579.2. 2000 Unknown [id number] 2.16.840.1.258327.3.579.2. 903 2000 Unknown [id number] 2.16.840.1.393625.3.579.2. 902 2000 Unknown [id number] 2.16.840.1.479403.3.579.2. 902 2000 Unknown [id number] 2.16.840.1.216999.3.579.2. 902 2000 Unknown [id number] 2.16.840.1.924688.3.579.2. 356 2000 Unknown [id number] 2.16.840.1.052823.3.579.2. 356 2000 Unknown [id number] 2.16.840.1.121838.3.579.2. 356 2000 Unknown [id number] 2.16840.1.858653.3.579.2. 356 2000 Unknown [id number] 2.16840.1.400920.3.579.2. 356 2000 Unknown [id number] 2.16840.1.383693.3.579.2. 356 2000 Unknown [id number] 2.16840.1.594865.3.579.2. 1068 2000 Unknown [id number] 2.16840.1.794150.3.579.2. 9 2000 Unknown [id number] 2.16840.1.742615.3.579.2. 1069 2000 Unknown [id number] 2.16840.1.689860.3.579.2. 1068 2000 Unknown [id number] 2.16840.1.151685.3.579.2. 1245 2000 Unknown [id number] 2.16840.1.458081.3.579.2. 727 2000 Unknown [id number] 2.16.840.1.093865.3.579.2. 1244 2000 Unknown [id number] 2.16840.1.649450.3.579.2. 1244 2000 Unknown [id number] 2.16.840.1.580964.3.579.2. 1244 2000 Unknown [id number] 2.16.840.1.066260.3.579.2. 1244 2000 Unknown [id number] 2.16.840.1.370776.3.579.2. 1244 2000 Unknown [id number] 2.16.840.1.376708.3.579.2. 1244 2000 Unknown [id number] 2.16.840.1.997466.3.579.2. 4 2000 Unknown [id number] 2.16.840.1.905021.3.579.2. 1244 2000 Unknown [id number] 2.16.840.1.366061.3.579.2. 4 2000 Unknown [id number] 2.16.840.1.050556.3.579.2. 1243 1983 Unknown [id number] 2.16.840.1.063963.3.579.2. 717 1983 Unknown [id number] 2.16.840.1.619837.3.579.2. 717 1983 Unknown [id number] 2.16.840.1.151738.3.579.2. 717 Self-pay [id number] Unknown [id number] Social History Date Type Detail Facility [facility] Tobacco smoking consumption unknown [facility] Start: 10-03-2022 End: 09-19-2023 Nicotine dependence due to vaping tobacco product Nicotine dependence due to vaping tobacco product [facility] Work Phone: Start: 2000 Sex Assigned At Not on file [facility] Start: 04-15-2022 End: 08-21-2023 Exposure to SARS-CoV-2 (event) Not sure [facility] Start: 10-03-2022 [facility] Work Phone: Start: 10-03-2022 End: 08-21-2023 Tobacco use and exposure Smokeless tobacco non-user [facility] Work Phone: Start: 10-20-2022 End: 05-18-2023 Alcohol intake Current drinker of alcohol (finding) [facility] Work Phone: Start: 10-03-2022 End: 09-19-2023 Tobacco use panel [facility] Work Phone: Start: 04-23-2023 Alcohol Comment RARE [facility] Work Phone: Start: 01-19-2021 [facility] Start: 01-19-2021 End: 08-14-2023 History of tobacco use Cigarette Smoker [facility] Work Phone: History of tobacco use Pipe Smoker [facility] Work Phone: Start: 08-21-2023 End: 10-10-2023 Alcohol intake Ex-drinker (finding) [facility] Work Phone: Start: 08-21-2023 Tobacco Comment I vape. [facility] Work Phone: Start: 08-21-2023 Alcohol Comment I drink once e very few momths [facility] Work Phone: Start: 09-09-2023 End: 10-10-2023 Exposure to SARS-CoV-2 (event) Unable to assess [facility] Work Phone: Tobacco smoking status No Smokin g Status Entered [facility] Functional Status Date Assessment Result Facility Functional observable [facility] Mental Status Date Assessment Result Facility 04-11-2023 Cognitive functions 0239:29 [facility] Clinical Notes 03-03-2021 to 10-10-2023 Jordyn Thakur APRN-INSTRUCTOR [employer] - 10/10/2023 3:40 PM Arianna Richardson MD - 08/21/2023 2:30 PM Erich López PA-C - 06/19/2023 5:17 PM Erich López PA-C - 06/19/2023 5:17 PM EST<item><item> Note Date & Type Note Facility 10-10-2023 History of Present illness Narrative Subjective Patient ID: Luz Hinojosa is a 22 y.o. female who presents for Follow-up (Med check ; pt stopped celexa ). VIRTUAL APPOINTMENT BEING PERFORMED DUE TO COVID-19 (CORONAVIRUS) HPI: Presents today for 1 MONTH MED CHECK OF LEXAPRO. SHE COMPLETELY STOPPED THE CELEXA AND IS DOING WELL ON LEXAPRO. DENIES SIDE EFFECTS. NO NEW COMPLAINTS Visit Vitals OB Status Having periods Smoking Status Every Day Review of Systems Constitutional: Negative for chills, fatigue, fever and unexpected weight change. HENT: Negative for congestion, ear pain, sore throat and trouble swallowing. Eyes: Negative for photophobia, pain, redness and visual disturbance. Respiratory: Negative for apnea, cough, choking, chest tightness, shortness of breath and wheezing. Cardiovascular: Negative for chest pain, palpitations and leg swelling. Gastrointestinal: Negative for abdominal distention, abdominal pain, blood in stool, constipation, diarrhea, nausea and vomiting. Genitourinary: Negative for difficulty urinating, dysuria, flank pain, frequency, hematuria and urgency. Musculoskeletal: Negative for arthralgias, back pain, gait problem, joint swelling, myalgias and neck pain. Skin: Negative for rash and wound. Neurological: Negative for dizziness, seizures, syncope, facial asymmetry, speech difficulty, weakness, numbness and headaches. Psychiatric/Behavioral: Negative for confusion, sleep disturbance and suicidal ideas. The patient is not nervous/anxious. Objective Physical Exam Neurological: Mental Status: She is alert. Psychiatric: Mood and Affect: Mood normal. Behavior: Behavior normal. Thought Content: Thought content normal. Judgment: Judgment normal. Assessment/Plan Problem List Items Addressed This Visit Generalized anxiety disorder with panic attacks Relevant Medications escitalopram (Lexapro) 20 mg tablet WE DISCUSSED MOST COMMON SIDE EFFECTS OF PRESCRIBED MEDICATIONS. INDICATIONS, RISK, COMPLICATIONS, AND ALTERNATIVES OF MEDICATION/THERAPEUTICS WERE EXPLAINED AND DISCUSSED. PLEASE MONITOR CLOSELY FOR ANY UNTOWARD SIDE EFFECTS OR COMPLICATIONS OF MEDICATIONS. PATIENT IS STRONGLY ADVISED TO BE COMPLIANT WITH RECOMMENDATIONS. QUESTIONS AND CONCERNS WERE ADDRESSED. INSTRUCTED TO CALL, RETURN SOONER, OR GO TO THE ER, IF SYMPTOMS PERSIST OR WORSEN. THEY VOICED UNDERSTANDING AND DENIES FURTHER QUESTIONS AT THIS TIME. TIME CODE 1. PREPARATION FOR PATIENT'S VISIT (REVIEWING CHART, CURRENT MEDICAL RECORDS, OUTSIDE HEALTH PROVIDER RECORDS, PREVIOUS HISTORY, EXAM, TEST, PROCEDURE, AND MEDICATIONS) 2. FACE TO FACE ENCOUNTER OBTAINING HISTORY FROM THE PATIENT/FAMILY/CAREGIVERS; PERFORMING EVALUATION AND EXAMINATION; ORDERING TESTS OR PROCEDURES; REFERRING AND COMMUNICATING WITH OTHER HEALTHCARE PROVIDERS; COUNSELING AND EDUCATION OF THE PATIENT/FAMILY/CAREGIVERS; INDEPENDENTLY INTERPRETING RESULTS (TESTS, LABS, PROCEDURES, IMAGING) AND COMMUNICATING AND EXPLAINING RESULTS TO THE PATIENT/FAMILY/CAREGIVERS 3. COORDINATION OF CARE; PREPARING AND PRINTING DISCHARGE INSTRUCTIONS AND ANY EDUCATIONAL MATERIAL FOR THE PATIENT/FAMILY/CAREGIVERS. DOCUMENTING CLINICAL INFORMATION IN THE ELECTRONIC MEDICAL RECORD 4. REVIEWING OARRS NEEDED MDM 1) COMPLEXITY: 1 ACUTE ILLNESS, 1 STABLE CHRONIC CONDITION, OR 2 MINOR PROBLEMS ADDRESSED 2)DATA: TESTS INTERPRETED AND OR ORDERED, TOOK INDEPENDENT HISTORY OR RECORDS REVIEWED 3)RISK: LOW RISK DUE TO NATURE OF MEDICAL CONDITIONS/COMORBIDITY OR MEDICATIONS ORDERED OR SURGICAL OR PROCEDURE REFERRAL Follow up as before documented in this encounter [facility] Work Phone: 09-22-2023 Evaluation + Plan note Diagnostic Tests PendingAnti-Mullerian Hormone (AMH) 09/22/23FSH and LH 09/22/23Insulin Level Total 09/22/23 [facility] 08-21-2023 History of Present illness Narrative Luz Hinojosa is a 22 y.o. year old female patient. PCP = MYKE Amaya Chief Complaint Patient presents with New Patient Visit New patient here with questions about ovulation. LMP: 08/10/23. HPI Presents having questions regarding ovulation. Her last Depo-Provera shot was approximately a year ago. She resumed having regular monthly cycles approximately 6 months ago. She has been trying to conceive with her current partner. She typically will have intercourse on a daily basis. She states her partner has had a child from a previous relationship. She states that the onset of her menstrual flow this month was August 06. The last day of her flow was on August 10. She has been using an ovulation guerda on her phone. OB History 0 Para 0 Term 0 0 AB 0 Living 0 SAB 0 IAB 0 Ectopic 0 Multiple 0 Live Births 0 Past Medical History: Diagnosis Date Immunization declined 04/23/2023 FLU SHOT Immunization not carried out because of patient refusal Influenza vaccination declined Other specified health status No pertinent past medical history Past Surgical History: Procedure Laterality Date OTHER SURGICAL HISTORY 03/03/2022 [place] tooth extraction Review of Systems: Constitutional: No fever or chills Respiratory: No shortness of breath, or cough Cardiovascular: No chest pain or syncope Breasts: No breast pain, no masses, no nipple discharge Gastrointestinal: No nausea, vomiting, or diarrhea, no abdominal pain Genitourinary: No dysuria or frequency Gynecology: Negative except as noted in history of present illness All other: All other systems reviewed and negative for complaint Medication Documentation Review Audit Reviewed by Anika Richardson MD (Physician) on 08/21/23 at 1451 Medication Order Taking? Sig Documenting Provider Last Dose Status busPIRone (Buspar) 5 mg tablet [id number] No Take by mouth 3 times a day as needed. Historical ProviderMD Taking Active citalopram (CeleXA) 40 mg tablet [id number] Take 1 tablet (40 mg) by mouth once daily. MYKE Amaya Active nitrofurantoin (Macrodantin) 100 mg capsule [id number] No take 1 capsule twice a day for 3 to 7 days Historical ProviderMD Taking Active omeprazole (PriLOSEC) [address] capsule [id number] No Take 1 capsule (20 mg) by mouth once daily in the morning. Take before meals. MYKE Amaya Taking Active BP 116/70 Ht 1.651 m (5' 5 ) Wt 54.2 kg (119 lb 6.4 oz) LMP 08/10/2023 BMI 19.87 kg/m PHYSICAL EXAMINATION: General: No acute distress Eye: Intraocular movements are intact HEENT: Normocephalic Respiratory: Respirations are nonlabored Gastrointestinal: Nondistended Musculoskeletal: Normal range of motion Neurologic: Alert and oriented x3 Psychiatric: Cooperative, appropriate mood and affect. Orders Placed This Encounter Procedures Progesterone Standing Status: Future Standing Expiration Date: 08/21/2024 Order Specific Question: Release result to Charlie Answer: Immediate [1] Problem List Items Addressed This Visit None Visit Diagnoses Family planning counseling - Primary Relevant Orders Progesterone Provider Impression: 1. Family-planning Patient given recommendation to use the urine ovulation kits. Will obtain a progesterone level in the secretory phase of the cycle and she will be called with results. She was informed that approximately 80% of couples will conceive within the first year of trying. Follow-up in 2 months for annual exam. documented in this encounter [facility] Work Phone: 06-19-2023 Emergency department Note HPI Chief Complaint Patient presents with Urinary Frequency Vaginal burning with urination. Increased frequency in urination. Patient is concerned that she has a urinary tract infection. States that she has dysuria frequency and urgency since yesterday. This is kept her from sleeping throughout the night last night. No fever chills no back pain no abdominal pain. No nausea/no vomiting. No vaginal discharge or bleeding. She is not concerned with any STDs. She is not concerned with . History provided by: Patient No data recorded Patient History Past Medical History: Diagnosis Date Immunization declined 04/23/2023 FLU SHOT Immunization not carried out because of patient refusal Influenza vaccination declined Other specified health status No pertinent past medical history Past Surgical History: Procedure Laterality Date OTHER SURGICAL HISTORY 03/03/2022 [place] tooth extraction Family History Problem Relation Name Age of Onset Depression Mother Bipolar disorder Mother No Known Problems Father Social History Tobacco Use Smoking status: Never Smokeless tobacco: Never Vaping Use Vaping Use: Every day Substances: Nicotine Substance Use Topics Alcohol use: Yes Comment: RARE Drug use: Never Physical Exam ED Triage Vitals [06/19/23 1722] Temp Heart Rate Resp BP 36.8 C (98.2 F) 98 16 124/81 SpO2 Temp Source Heart Rate Source Patient Position 98 % Temporal Monitor Lying BP Location FiO2 (%) Left arm -- Physical Exam Vitals and nursing note reviewed. Constitutional: General: She is not in acute distress. Appearance: Normal appearance. She is well-developed, well-groomed and normal weight. She is not ill-appearing, toxic-appearing or diaphoretic. HENT: Head: Normocephalic. Right Ear: External ear normal. Left Ear: External ear normal. Nose: Nose normal. Mouth/Throat: Mouth: Mucous membranes are moist. Eyes: General: No scleral icterus. Conjunctiva/sclera: Conjunctivae normal. Cardiovascular: Rate and Rhythm: Normal rate and regular rhythm. Heart sounds: Normal heart sounds. Pulmonary: Effort: Pulmonary effort is normal. Breath sounds: Normal breath sounds and air entry. Abdominal: General: Bowel sounds are normal. There is no distension. Palpations: Abdomen is soft. Tenderness: There is no abdominal tenderness. There is no right CVA tenderness, left CVA tenderness or guarding. Genitourinary: Comments: declined Skin: General: Skin is warm. Capillary Refill: Capillary refill takes less than 2 seconds. Neurological: General: No focal deficit present. Mental Status: She is alert and oriented to person, place, and time. Cranial Nerves: No cranial nerve deficit. Sensory: No sensory deficit. Motor: No weakness. Gait: Gait normal. Psychiatric: Attention and Perception: Attention normal. Mood and Affect: Mood normal. Speech: Speech normal. Behavior: Behavior normal. Behavior is cooperative. Thought Content: Thought content normal. Cognition and Memory: Cognition and memory normal. Judgment: Judgment normal. ED Course & MDM Diagnoses as of 06/19/231810 Urinary tract infection without hematuria, site unspecified Medical Decision Making Patient is concerned that she has a urinary tract infection. States that she has dysuria frequency and urgency since yesterday. This is kept her from sleeping throughout the night last night. No fever chills no back pain no abdominal pain. No nausea/no vomiting. No vaginal discharge or bleeding. She is not concerned with any STDs. She is not concerned with . Ddx: Infection, urethritis, interstitial cystitis, other Urinalysis and obtained. Infection is shown culture pending. Patient will be started on Keflex pending any change that is needed based on culture results. Discussed this with patient she is agreeable to plan. She is discharged home in stable and improved condition. Amount and/or Complexity of Data Reviewed Labs: ordered. Decision-making details documented in ED Course. Details: Infection noted Risk OTC drugs. Prescription drug management. Diagnosis or treatment significantly limited by social determinants of health. Procedure Procedures Bela López PA-C 06/19/23 1811 documented in this encounter [facility] Work Phone: 06-19-2023 Physician Emergency department Note HPI Chief Complaint Patient presents with Urinary Frequency Vaginal burning with urination. Increased frequency in urination. Patient is concerned that she has a urinary tract infection. States that she has dysuria frequency and urgency since yesterday. This is kept her from sleeping throughout the night last night. No fever chills no back pain no abdominal pain. No nausea/no vomiting. No vaginal discharge or bleeding. She is not concerned with any STDs. She is not concerned with . History provided by: Patient No data recorded Patient History Past Medical History: Diagnosis Date Immunization declined 04/23/2023 FLU SHOT Immunization not carried out because of patient refusal Influenza vaccination declined Other specified health status No pertinent past medical history Past Surgical History: Procedure Laterality Date OTHER SURGICAL HISTORY 03/03/2022 [place] tooth extraction Family History Problem Relation Name Age of Onset Depression Mother Bipolar disorder Mother No Known Problems Father Social History Tobacco Use Smoking status: Never Smokeless tobacco: Never Vaping Use Vaping Use: Every day Substances: Nicotine Substance Use Topics Alcohol use: Yes Comment: RARE Drug use: Never Physical Exam ED Triage Vitals [06/19/23 1722] Temp Heart Rate Resp BP 36.8 C (98.2 F) 98 16 124/81 SpO2 Temp Source Heart Rate Source Patient Position 98 % Temporal Monitor Lying BP Location FiO2 (%) Left arm -- Physical Exam Vitals and nursing note reviewed. Constitutional: General: She is not in acute distress. Appearance: Normal appearance. She is well-developed, well-groomed and normal weight. She is not ill-appearing, toxic-appearing or diaphoretic. HENT: Head: Normocephalic. Right Ear: External ear normal. Left Ear: External ear normal. Nose: Nose normal. Mouth/Throat: Mouth: Mucous membranes are moist. Eyes: General: No scleral icterus. Conjunctiva/sclera: Conjunctivae normal. Cardiovascular: Rate and Rhythm: Normal rate and regular rhythm. Heart sounds: Normal heart sounds. Pulmonary: Effort: Pulmonary effort is normal. Breath sounds: Normal breath sounds and air entry. Abdominal: General: Bowel sounds are normal. There is no distension. Palpations: Abdomen is soft. Tenderness: There is no abdominal tenderness. There is no right CVA tenderness, left CVA tenderness or guarding. Genitourinary: Comments: declined Skin: General: Skin is warm. Capillary Refill: Capillary refill takes less than 2 seconds. Neurological: General: No focal deficit present. Mental Status: She is alert and oriented to person, place, and time. Cranial Nerves: No cranial nerve deficit. Sensory: No sensory deficit. Motor: No weakness. Gait: Gait normal. Psychiatric: Attention and Perception: Attention normal. Mood and Affect: Mood normal. Speech: Speech normal. Behavior: Behavior normal. Behavior is cooperative. Thought Content: Thought content normal. Cognition and Memory: Cognition and memory normal. Judgment: Judgment normal. ED Course & MDM Diagnoses as of 06/19/231810 Urinary tract infection without hematuria, site unspecified Medical Decision Making Patient is concerned that she has a urinary tract infection. States that she has dysuria frequency and urgency since yesterday. This is kept her from sleeping throughout the night last night. No fever chills no back pain no abdominal pain. No nausea/no vomiting. No vaginal discharge or bleeding. She is not concerned with any STDs. She is not concerned with . Ddx: Infection, urethritis, interstitial cystitis, other Urinalysis and obtained. Infection is shown culture pending. Patient will be started on Keflex pending any change that is needed based on culture results. Discussed this with patient she is agreeable to plan. She is discharged home in stable and improved condition. Amount and/or Complexity of Data Reviewed Labs: ordered. Decision-making details documented in ED Course. Details: Infection noted Risk OTC drugs. Prescription drug management. Diagnosis or treatment significantly limited by social determinants of health. Procedure Procedures Bela López PA-C 06/19/231810 [facility] Work Phone: 05-18-2023 History of Present illness Narrative Subjective Patient ID: Luz Hinojosa is a 22 y.o. female who presents for UTI (Pt c/o possible uti, pt states she is unable to urinate on and off for months ) and Medication Problem (Pt states Paxil gives her insomnia and headache ). HPI: Presents today for C/O FREQUENT URINATION X SEVERAL MONTHS modifying factors consists of H/O FREQUENT UTI'S associated symptoms consist of NO BURNING prior treatment consists of medication NONE PAXIL CAUSING INSOMNIA - START CELEXA Visit Vitals BP 107/74 (BP Location: Left arm, Patient Position: Sitting) Pulse 98 Ht 1.651 m (5' 5 ) Wt 53.5 kg (118 lb) SpO2 99% BMI 19.64 kg/m OB Status Having periods Smoking Status Never BSA 1.57 m Review of Systems Constitutional: Negative for chills, fatigue, fever and unexpected weight change. HENT: Negative for congestion, ear pain, sore throat and trouble swallowing. Eyes: Negative for photophobia, pain, redness and visual disturbance. Respiratory: Negative for apnea, cough, choking, chest tightness, shortness of breath and wheezing. Cardiovascular: Negative for chest pain, palpitations and leg swelling. Gastrointestinal: Negative for abdominal distention, abdominal pain, blood in stool, constipation, diarrhea, nausea and vomiting. Genitourinary: Positive for frequency. Negative for difficulty urinating, dysuria, flank pain, hematuria and urgency. Musculoskeletal: Negative for arthralgias, back pain, gait problem, joint swelling, myalgias and neck pain. Skin: Negative for rash and wound. Neurological: Negative for dizziness, seizures, syncope, facial asymmetry, speech difficulty, weakness, numbness and headaches. Psychiatric/Behavioral: Negative for confusion, sleep disturbance and suicidal ideas. The patient is not nervous/anxious. Objective SEE IO UA Physical Exam Constitutional: Appearance: Normal appearance. She is normal weight. HENT: Head: Normocephalic. Eyes: Extraocular Movements: Extraocular movements intact. Conjunctiva/sclera: Conjunctivae normal. Pupils: Pupils are equal, round, and reactive to light. Cardiovascular: Rate and Rhythm: Normal rate and regular rhythm. Pulses: Normal pulses. Heart sounds: Normal heart sounds. Pulmonary: Effort: Pulmonary effort is normal. Breath sounds: Normal breath sounds. Musculoskeletal: General: Normal range of motion. Cervical back: Normal range of motion. Skin: General: Skin is warm and dry. Neurological: General: No focal deficit present. Mental Status: She is alert and oriented to person, place, and time. Psychiatric: Mood and Affect: Mood normal. Behavior: Behavior normal. Thought Content: Thought content normal. Judgment: Judgment normal. Assessment/Plan Problem List Items Addressed This Visit Gastroesophageal reflux disease without esophagitis Relevant Medications omeprazole (PriLOSEC) [address] capsule Generalized anxiety disorder with panic attacks Relevant Medications citalopram (CeleXA) 10 mg tablet Urinary frequency - Primary Relevant Orders Urine Culture POCT UA Automated manually resulted (Completed) Referral to Urogynecology Urinary tract infection with hematuria Relevant Medications nitrofurantoin, macrocrystal-monohydrate, (Macrobid) 100 mg capsule OK TO INCREASE CELEXA TO 20 MG IN 2-3 WEEKS IF TOLERATING WELL. REFUSING SOONER FU APPT. NEXT APPT 07/13/23 WE DISCUSSED MOST COMMON SIDE EFFECTS OF PRESCRIBED MEDICATIONS. INDICATIONS, RISK, COMPLICATIONS, AND ALTERNATIVES OF MEDICATION/THERAPEUTICS WERE EXPLAINED AND DISCUSSED. PLEASE MONITOR CLOSELY FOR ANY UNTOWARD SIDE EFFECTS OR COMPLICATIONS OF MEDICATIONS. PATIENT IS STRONGLY ADVISED TO BE COMPLIANT WITH RECOMMENDATIONS. QUESTIONS AND CONCERNS WERE ADDRESSED. INSTRUCTED TO CALL, RETURN SOONER, OR GO TO THE ER, IF SYMPTOMS PERSIST OR WORSEN. THEY VOICED UNDERSTANDING AND DENIES FURTHER QUESTIONS AT THIS TIME. TIME CODE 1. PREPARATION FOR PATIENT'S VISIT (REVIEWING CHART, CURRENT MEDICAL RECORDS, OUTSIDE HEALTH PROVIDER RECORDS, PREVIOUS HISTORY, EXAM, TEST, PROCEDURE, AND MEDICATIONS) 2. FACE TO FACE ENCOUNTER OBTAINING HISTORY FROM THE PATIENT/FAMILY/CAREGIVERS; PERFORMING EVALUATION AND EXAMINATION; ORDERING TESTS OR PROCEDURES; REFERRING AND COMMUNICATING WITH OTHER HEALTHCARE PROVIDERS; COUNSELING AND EDUCATION OF THE PATIENT/FAMILY/CAREGIVERS; INDEPENDENTLY INTERPRETING RESULTS (TESTS, LABS, PROCEDURES, IMAGING) AND COMMUNICATING AND EXPLAINING RESULTS TO THE PATIENT/FAMILY/CAREGIVERS 3. COORDINATION OF CARE; PREPARING AND PRINTING DISCHARGE INSTRUCTIONS AND ANY EDUCATIONAL MATERIAL FOR THE PATIENT/FAMILY/CAREGIVERS. DOCUMENTING CLINICAL INFORMATION IN THE ELECTRONIC MEDICAL RECORD 4. REVIEWING OARRS NEEDED MDM 1) COMPLEXITY: MORE THAN 1 STABLE CHRONIC CONDITION ADDRESSED OR 1 ACUTE ILLNESS ADDRESSED 2)DATA: TESTS INTERPRETED AND OR ORDERED, TOOK INDEPENDENT HISTORY OR RECORDS REVIEWED 3)RISK: MODERATE RISK DUE TO NATURE OF MEDICAL CONDITIONS/COMORBIDITY OR MEDICATIONS ORDERED OR SURGICAL OR PROCEDURE REFERRAL Follow up as before documented in this encounter [facility] Work Phone: 04-23-2023 History of Present illness Narrative Subjective Patient ID: Luz Hinojosa is a 22 y.o. female who presents for Follow-up (ER F/U /C/O STOPPED TAKING PAXIL RESTARTED TAKING AGAIN, CLAIMS THE DOSE IS TOO HIGH TO TAKE RIGHT NOW AND PILL IS HARD TO BREAK APART TO TAKE THE 20 MG ). HPI Lab AND ER VISIT F/U. S/P RECURRENT UTI WHICH IS IMPROVED . COMPLAINS OF WORSENING ANXIETY . STOPPED TAKING THE PAXIL 40 MG DAILY A WHILE AGO. ,WANTS TO START LOWER DOSAGE (CAN'T BREAK THE CURRENT PILL TO HALF). Review of Systems Constitutional: Negative for chills and fever. HENT: Negative. Negative for congestion, postnasal drip and rhinorrhea. Eyes: Negative. Negative for visual disturbance. Respiratory: Negative for cough, shortness of breath and wheezing. Cardiovascular: Negative. Negative for chest pain, palpitations and leg swelling. Gastrointestinal: Negative. Negative for abdominal distention, abdominal pain, constipation, diarrhea, nausea and vomiting. Endocrine: Negative. Genitourinary: Negative for dysuria and urgency. Musculoskeletal: Negative. Negative for back pain. Skin: Negative. Negative for rash. Allergic/Immunologic: Negative for immunocompromised state. Neurological: Negative. Negative for dizziness, weakness, light-headedness and headaches. Psychiatric/Behavioral: Negative for agitation. The patient is nervous/anxious. Objective Physical Exam Constitutional: General: She is not in acute distress. HENT: Head: Normocephalic. Nose: Nose normal. Mouth/Throat: Mouth: Mucous membranes are moist. Eyes: Conjunctiva/sclera: Conjunctivae normal. Pupils: Pupils are equal, round, and reactive to light. Cardiovascular: Rate and Rhythm: Normal rate and regular rhythm. Pulses: Normal pulses. Heart sounds: Normal heart sounds. Pulmonary: Effort: No respiratory distress. Breath sounds: No wheezing. Chest: Chest wall: No tenderness. Abdominal: General: Abdomen is flat. Bowel sounds are normal. Palpations: Abdomen is soft. Tenderness: There is no abdominal tenderness. Musculoskeletal: General: No tenderness. Normal range of motion. Cervical back: Normal range of motion. Lymphadenopathy: Cervical: No cervical adenopathy. Skin: General: Skin is warm and dry. Findings: No rash. Neurological: General: No focal deficit present. Mental Status: She is alert. Mental status is at baseline. Psychiatric: Mood and Affect: Mood normal. Behavior: Behavior normal. Assessment/Plan 1. H/O urinary tract infection 2. Generalized anxiety disorder with panic attacks PARoxetine (Paxil) 20 mg tablet TEST RESULTS WERE DISCUSSED. ADVISED FOR RELAXATION TECHNIQUES AND TO CUT DOWN ON CAFFEINE. ADVISED TO HAVE LOW FAT AND LOW CALORIE DIET ,DAILY EXERCISE. OFFERED REFERRAL FOR COUNSELING, PT REFUSED. MDM 1) COMPLEXITY: 1 UNDIAGNOSED NEW PROBLEM WITH UNCERTAIN PROGNOSIS 2)DATA: TESTS INTERPRETED AND OR ORDERED, TOOK INDEPENDENT HISTORY OR RECORDS REVIEWED 3)RISK: MODERATE RISK DUE TO NATURE OF MEDICAL CONDITIONS/COMORBIDITY OR MEDICATIONS ORDERED OR SURGICAL OR PROCEDURE REFERRAL, . 2 mon with PCP. documented in this encounter [facility] Work Phone: 04-11-2023 Note Send Summary: Discharge Summary Providers: Provider RoleProvider Name Bautista Foy Logeswari PrimaryConley, Amy PrimaryMcArdle, Joyce Note Recipients: [facility] [phone] [Preferred] Discharge: Summary: Admission Date: .09-Apr-2023 10:40:00 Discharge Date: 11-Apr-2023 Attending Physician at Discharge: Bautista villanueva Admission Reason: Flank pain Final Discharge Diagnoses: Pyelonephritis, acute kidney injury Procedures: none Vital Signs: T PRBPMAPSpO2 [id number]% Date/Time04/11 8: 8: 8: 8: 16: 8:00 Range(36.6C - 37.6C ) (70 - 81 ) (16 - 18 ) (107 - 122 )/ (70 - 84 ) (82 - 85 ) (98% - 99% ) Highest temp of 37.6 C was recorded at 04/11 0:00 Date: Weight/Scale Type:Height: 09-Apr-2023 15:5454 kg / zgy436.1 cm Physical Exam: General: Not in acute distress, alert HEENT: PERRLA, head intact and normocephalic Neck: Normal to inspection Lungs: Clear to auscultation, work of breathing within normal limit Cardiac: Regular rate and rhythm Abdomen: Soft nontender, positive bowel sounds : Exam deferred Skin: Intact Hematology: No petechia or excessive ecchymosis Musculoskeletal: Without significant trauma Neurological: Alert awake oriented, no focal deficit, cranial nerves grossly intact Psych: No suicidal ideation or homicidal ideation Hospital Course: 22-year-old female with no significant past medical history presented to emergency department due to abdominal pain with flank pain associated with nausea vomiting and diarrhea and she was found to have pyelonephritis causing her symptoms that she was just treated for UTI at outside urgent care and completed antibiotics 2 days prior to arrival. She was found to have acute kidney injury with pyelonephritis causing her symptoms. Patient was admitted and started on ceftriaxone and her symptoms improved significantly. She also had acute kidney injury on admission and her creatinine worsened and peaked at 2.30. With IV fluids her creatinine has improved to 1.33 and she is feeling better. She is no longer having flank pain and does not have any issues with diet. She is in stable condition and will be discharged home with follow-up with PCP and outpatient BMP. We also gave her a work excuse note to return on Sunday with light workload due to back discomfort prior to arrival. 32 minutes spent in discharge timing This note is created using voice recognition software. All efforts are made to minimize errors, if there are errors there due to inspector assemblies and installations. Bautista Villanueva Hospitalist Discharge Information: and Continuing Care: Lab Results - Pending: Culture, Blood Drawn at 09-Apr-2023 14:05:00 Culture, Blood Drawn at 09-Apr-2023 14:05:00 Radiology Results - Pending: None Discharge Instructions: Activity: activity as tolerated. May shower.. May drive.. Nutrition/Diet: resume normal diet Follow Up Appointments: Follow-Up Appointment 01: Physician/Dept/Service: Primary care provider Reason for Referral: Pyelonephritis, acute kidney injury Call to Schedule in: 1 week Discharge Medications: Home Medication omeprazole 20 mg oral delayed release capsule - 1 cap(s) orally once a day cefdinir 300 mg oral capsule - 1 cap(s) orally 2 times a day PRN Medication DNR Status: Code StatusCode Status order at time of discharge: Full Code Electronic Signatures: Bautista Villanueva) (Signed 11-Apr-2023 09:36) Authored: Send Summary, Summary Content, Ongoing Care, DNR Status, Note Completion Last Updated: 11-Apr-2023 09:36 by Bautista Villanueva) Merged With [facility] 04-11-2023 Hospital Discharge instructions Activity:activity as tolerated. May shower. May drive.Follow Up Appointment 1:Physician/Dept/Service: Primary care provider Jordyn Maurer for Referral: Pyelonephritis, acute kidney injuryCall to Schedule in: [address] Wuwimvpj: She will call and make her own appointment. [facility] 04-09-2023 Note History of Present I llness: /Lactating: Are You no (1) Are You Currently Breastfeedingno (1) HPI: LUZ HINOJOSA is a 22 year old Female w/no significant PMH presenting w/abdominal and flank pain associated w/n/v. Patient states symptoms started 2 days ago progressively worsening, associated w/n/v today prompting her ED visit. She reports periumbilical and suprapubic pain w/radiation to groin. Also w/flank pain. Patient does report dysuria w/urgency and frequency that started approximately 1 week ago. Patient went to an urgent care and was started on an oral abx; however, she does not recall which medication. She states she missed a few doses and took her last dose today. Patient denies fever/chills, diarrhea/constipation, hematuria. In the ED, patient afebrile and hemodynamically stable. Labs significant for elevated creatinine of 2.2. No leukocytosis or lactic acidosis. UA w/+ nitrites, mod blood. CT a/p showed nonspecific heterogeneous renal parenchymal enhancement, possibly related to inflammation. Patient received total of 2L IVF boluses and 1 dose of zosyn. PMH: none PSH: none SH: vapes daily, occasional alcohol use, denies other drug use Social History: Social History: Smoking Statusheavy user (uses >30 cig/day, OR >1.5 ppd, OR >3 cans/pouches loose leaf tobacco per week, OR >1.5 vape pods per day) (2) Alcohol Usedenies(2) Drug Usedenies (2) Allergies: clonidine: Hives/Urticaria Medications Prior to Admission: omeprazole 20 mg oral delayed release capsule: 1 cap(s) orally once a day. Review of Systems: Gastrointestinal: POSITIVE: Abdominal Pain Genitourinary: POSITIVE: Dysuria, Flank Pain, Frequency All Other Systems: All other systems reviewed and are negative Objective: Objective Information: T PRBPMAPSpO2 [id number]% Date/Time04/09 10:40918 14:129 14: 14: 14:12 Range(36.5C - 36.5C ) (69 - 81 ) (16 - 16 ) (123 - 133 )/ (88 - 96 ) (97% - 97% ) Pain reported at 04/09 10:48: 3 = Mild T PRBPMAPSpO2 [id number]% Date/Time04/09 16: 16: 16: 16: 16: 16:00 Range(36.5C - 37C ) (66 - 81 ) (16 - 16 ) (119 - 133 )/ (74 - 96 ) (89 - 89 ) (97% - 98% ) Highest temp of 37 C was recorded at 04/09 16:00 Physical Exam Narrative: Physical Exam: General Appearance: awake and alert, NAD, AAOx3 HEENT: nc/at, eomi, perrla Resp; ctab; no wheezing, rhonchi, or rales Cardio: rrr. s1s2 GI: soft, mild suprapubic tenderness, mild CVA tenderness, BS+ Ext; no edema Medications: Medications: Continuous Medications 1. Lactated Ringers Infusion: 1000 mL IntraVenous Scheduled Medications 1. cefTRIAXone 1 gram/ Dextrose 5% IVPB Premixed Soln 50 mL: 50 mL IntraVenous Piggyback Every 24 Hours 2. Pantoprazole: 40 mg Oral Daily PRN Medications 1. Acetaminophen: 650 mg Oral Every 4 Hours 2. Acetaminophen: 650 mg Oral Every 4 Hours 3. Ondansetron Injectable: 4 mg IntraVenous Push Every 4 Hours 4. Sodium Chloride 0.9% Injectable Flush: 10 mL IntraVenous Flush Every 8 Hours and as Needed Recent Lab Results: Results: CBC: 04/09/2023 11:05 \ Hgb / \ 14.3 / WBC Plt 8.7 283 / Hct \ / 42.9 \ RBC: 4.85 MCV: 89 Neutrophil %: 76.2 BMP: 04/09/2023 13:30 NA+ Cl- BUN / 141 112 H 19 / Glucose 74 K+ HCO3- Creat \ 3.9 19 L 2.16 H \ Calcium : 8.1 L Anion Gap : 14 Radiology Results: Results: Impression: 1. Nonspecific heterogeneous renal parenchymal enhancement could be related to physiologic variant versus diffuse renal abnormality including inflammation in the appropriate clinical setting. Recommend correlation with symptomatology and laboratory assessment. 2. Borderline prominent liver periportal halo which also could be due to technique versus liver or systemic abnormality. Recommend correlation with liver function tests and symptomatology. 3. The appendix is not visualized. No definite evidence of appendicitis. 4. Trace pelvic free fluid. CT Abdomen and Pelvis with IV Contrast [Apr 09 2023 1:35PM] Assessment and Plan: Assessment: 22 y/o F w/no significant PMH presenting w/abdominal and flank pain; noted w/CARLA and pyelonephritis after recent outpatient treatment for UTI. Acute pyelonephritis Prerenal CARLA, no evidence of obstructive uropathy Current vape use - s/p 1 dose of zosyn in the ED; start on ceftriaxone - no leukocytosis or lactic acidosis, UA also mildly positive; patient also recently took oral abx, states she took last dose today - cultures pending - CT imaging as above; no evidence of obstruction - s/p 2L IVF boluses in the ED, continue maintenance flu (more content not included)... Merged With [facility] 04-25-2022 History of Present illness Narrative [facility] [address] [facility] [address] [facility] [id number] Chief Complaint Patient presents with Left Hand - Injury Luz Hinojosa, 21 year old female, presents to the office today for a left finger injury. She was wrestling with her brother two days ago and sustained an injury to the finger. She waited a day and then ended up in the ER due to increased pain and swelling. She was told that she had a fracture at the end of her finger. She was placed in a stacked splint and was instructed to zulema tape the 3rd and 4th. She states she is able to move the finger but it is very sore and swollen. She denies any numbness or tingling into that finger. 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 The patient's past medical history, surgical history, social history, family history, medications and allergies were reviewed with the patient today and are available in the chart for further review. Allergies Allergen Reactions Clonidine Hives Current Outpatient Medications: omeprazole (PRILOSEC) 20 MG capsule, Take 1 (one) capsule (20 mg total) by mouth daily ., Disp: , Rfl: PARoxetine (PAXIL) 30 MG tablet, , Disp: , Rfl: busPIRone (BUSPAR) 5 MG tablet, , Disp: , Rfl: ibuprofen (ADVIL,MOTRIN) 400 MG tablet, Take 1 (one) tablet (400 mg total) by mouth every 6 (six) hours as needed for pain ., Disp: 30 tablet, Rfl: 0 History reviewed. No pertinent past medical history. Past Surgical History: Procedure Laterality Date WISDOM TOOTH EXTRACTION Social History Socioeconomic History Marital status: Single ROS: Review of Systems Constitutional: Negative for activity change and fatigue. HENT: Negative for congestion, hearing loss and trouble swallowing. Eyes: Negative for visual disturbance. Respiratory: Negative for chest tightness and shortness of breath. Cardiovascular: Negative for chest pain and palpitations. Gastrointestinal: Negative for abdominal pain, diarrhea, nausea and vomiting. Endocrine: Negative for polydipsia, polyphagia and polyuria. Genitourinary: Negative for decreased urine volume, difficulty urinating and hematuria. Musculoskeletal: Positive for arthralgias and joint swelling. Negative for myalgias. Skin: Negative for color change, rash and wound. Allergic/Immunologic: Negative for immunocompromised state. Neurological: Negative for dizziness, weakness, light-headedness and numbness. Hematological: Does not bruise/bleed easily. Psychiatric/Behavioral: Negative for confusion and sleep disturbance. The patient is not nervous/anxious. PE: Physical Exam Constitutional: Appearance: She is well-developed. HENT: Head: Normocephalic. Eyes: Pupils: Pupils are equal, round, and reactive to light. Cardiovascular: Rate and Rhythm: Normal rate and regular rhythm. Pulmonary: Effort: Pulmonary effort is normal. Breath sounds: Normal breath sounds. Abdominal: General: Bowel sounds are normal. Palpations: Abdomen is soft. Musculoskeletal: General: Swelling, tenderness and signs of injury present. Normal range of motion. Cervical back: Normal range of motion and neck supple. Skin: General: Skin is warm and dry. Neurological: Mental Status: She is alert and oriented to person, place, and time. ORTHO: Left Hand Exam Tenderness Left hand tenderness location: 3rd digit DIP joint. Range of Motion Wrist Extension: normal Flexion: normal Pronation: normal Supination: normal Hand MP Middle: normal PIP Middle: 70 DIP Middle: 60 Muscle Strength Wrist extension: 5/5 Wrist flexion: 5/5 Rubber Grinder: 3/5 Other Erythema: absent Scars: absent Sensation: normal Pulse: present Comments: Ecchymosis to the distal 3rd phalanx Imaging: L Hand: Acute fracture base distal phalanx of the finger. Assessment/Plan: After examination and reviewing of the patient x-ray images, we discussed treatment options for the finger. I am placing her in a straight splint, to keep the finger immobilized in extension for the next two weeks. She is to continue with the zulema taping of the 3rd and 4th. I am also excusing her from work for the next two weeks as she would not be able to operated her machine safely. She is to continue with otc pain medications as needed. documented in this encounter [facility] 03-02-2022 History of Present illness Narrative INCONSISTENT SLEEP AT NIGHT SEVERAL TIMES / WEEK . WAKES UP WITH COLD SWEATS., AND DIZZINESS.0N AND OFF. MISSED PERIOD , LAST ONE WAS 2 MONTHS AGO. STOPPED GETTING DEPO SHOT ALMOST 2.5 MONTHS AGO. [facility] Work Phone: 01-01-2022 History of Present illness Narrative ANXIETY , NO PANIC ATTACKS SINCE LAST VISIT.. HASN'T BEEN TAKING THE PRN BUSPAR . CONTROL TX WAS STOPPED SEVERAL MONTHS AGO BUT MENSES ARE NOT BACK MONTHLY..WEIGHT GAIN. [facility] Work Phone: 11-20-2021 History of Present illness Narrative Presents today for C/O SPOTTING FOR SEVERAL DAYS modifying factors consists of STOPPED THE DEPO SHOT WAS NOVEMBER 2021. SHE HAS NOT RESUMED HER PERIODS. NEGATIVE HOME TEST associated symptoms consist of CRAMPING ON/OFF prior treatment consists of medication NONE [facility] Work Phone: 03-03-2021 History of Present illness Narrative Presents today TO ESTABLISH NEW. C/O ANXIETY SEVERAL DAYS PPER WEEK X SEVERAL YEARS THAT HAS RECENTLY INCREASED OVER THE PAST 1 YEAR modifying factors consists of PANIC ATTACKS ON/OFF associated symptoms consist of DENIES DEPRESSION OR SUICIDAL IDEATION prior treatment consists of medication DOES NOT REMEMBER THE NAMEGERD- STABLE. MED REFILL [facility] Work Phone: Evaluation note Diagnosis Closed nondisplaced fracture of distal phalanx of left middle finger, initial encounter- [facility] Vaginal yeast infection- Primary Candidiasis of vulva and vagina documented in this encounter [facility] Work Phone: Evaluation note* Diagnosis H/O urinary tract infection- Primary Generalized anxiety disorder with panic attacks documented in this encounter [facility] Work Phone: Evaluation note* Diagnosis Urinary frequency- Primary Urinary tract infection with hematuria, site unspecified Generalized anxiety disorder with panic attacks Gastroesophageal reflux disease without esophagitis Esophageal reflux documented in this encounter [facility] Work Phone: Evaluation note* Diagnosis Urinary tract infection without hematuria, site unspecified- Primary documented in this encounter [facility] Work Phone: Evaluation note* Diagnosis Family planning counseling- Primary Other general counseling and advice for contraceptive management documented in this encounter [facility] Work Phone: Evaluation note* Diagnosis Generalized anxiety disorder with panic attacks- Primary documented in this encounter [facility] Work Phone: Evaluation note* Diagnosis Nausea- Primary Nausea alone Nasal congestion Other diseases of nasal cavity and sinuses Acute non-recurrent sinusitis, unspecified location documented in this encounter [facility] Work Phone: Evaluation note* Diagnosis Generalized anxiety disorder with panic attacks documented in this encounter [facility] Work Phone: History of Present illness Narrative* Jordyn Thakur, RAILWAY SIGNALLING ENGINEER-INSTRUCTOR [employer] - 10/20/2022 3:00 PM EDT Subjective Patient ID: Luz Hinojosa is a 21 y.o. female who presents for Vaginitis/Bacterial Vaginosis (Pt c/o itching and discomfort for a few days ). VIRTUAL APPOINTMENT BEING PERFORMED DUE TO COVID-19 (CORONAVIRUS) HPI: Presents today for C/O VAGINAL ITCHING X 2-3 DAYS modifying factors consists of NONE associated symptoms consist of NO VAGINAL DISCHARGE prior treatment consists of medication NONE Visit Vitals Smoking Status Never Review of Systems Constitutional: Negative for chills, fatigue, fever and unexpected weight change. HENT: Negative for congestion, ear pain, sore throat and trouble swallowing. Eyes: Negative for photophobia, pain, redness and visual disturbance. Respiratory: Negative for apnea, cough, choking, chest tightness, shortness of breath and wheezing. Cardiovascular: Negative for chest pain, palpitations and leg swelling. Gastrointestinal: Negative for abdominal distention, abdominal pain, blood in stool, constipation, diarrhea, nausea and vomiting. Genitourinary: Negative for difficulty urinating, dysuria, flank pain, frequency, hematuria and urgency. Musculoskeletal: Negative for arthralgias, back pain, gait problem, joint swelling, myalgias and neck pain. Skin: Negative for rash and wound. Neurological: Negative for dizziness, seizures, syncope, facial asymmetry, speech difficulty, weakness, numbness and headaches. Psychiatric/Behavioral: Negative for confusion, sleep disturbance and suicidal ideas. The patient is not nervous/anxious. Objective Physical Exam Psychiatric: Mood and Affect: Mood normal. Thought Content: Thought content normal. Assessment/Plan Problem List Items Addressed This Visit Genitourinary Vaginal yeast infection - Primary Relevant Medications fluconazole (Diflucan) 150 mg tablet WE DISCUSSED MOST COMMON SIDE EFFECTS OF PRESCRIBED MEDICATIONS. INDICATIONS, RISK, COMPLICATIONS, AND ALTERNATIVES OF MEDICATION/THERAPEUTICS WERE EXPLAINED AND DISCUSSED. PLEASE MONITOR CLOSELY FORANY UNTOWARD SIDE EFFECTS OR COMPLICATIONS OF MEDICATIONS. PATIENT IS STRONGLY ADVISED TO BE COMPLIANT WITH RECOMMENDATIONS. QUESTIONS AND CONCERNS WERE ADDRESSED. INSTRUCTED TO CALL, RETURN SOONER, OR GO TO THE ER, IF SYMPTOMS PERSIST OR WORSEN. THEY VOICED UNDERSTANDING AND DENIES FURTHER QUESTIONS AT THIS TIME. TIME CODE 1. PREPARATION FOR PATIENT'S VISIT (REVIEWING CHART, CURRENT MEDICAL RECORDS, OUTSIDE HEALTH PROVIDER RECORDS, PREVIOUS HISTORY, EXAM, TEST, PROCEDURE, AND MEDICATIONS) 2. FACE TO FACE ENCOUNTER OBTAINING HISTORY FROM THE PATIENT/FAMILY/CAREGIVERS; PERFORMING EVALUATION AND EXAMINATION; ORDERING TESTS OR PROCEDURES; REFERRING AND COMMUNICATING WITH OTHER HEALTHCARE PROVIDERS; COUNSELING AND EDUCATION OF THE PATIENT/FAMILY/CAREGIVERS; INDEPENDENTLY INTERPRETING RESULTS (TESTS, LABS, PROCEDURES, IMAGING) AND COMMUNICATING AND EXPLAINING RESULTS TO THE PATIENT/FAMILY/CAREGIVERS 3. COORDINATION OF CARE; PREPARING AND PRINTING DISCHARGE INSTRUCTIONS AND ANY EDUCATIONAL MATERIALFOR THE PATIENT/FAMILY/CAREGIVERS. DOCUMENTING CLINICAL INFORMATION IN THE ELECTRONIC MEDICAL RECORD 4. REVIEWING OARRS NEEDED MDM 1) COMPLEXITY: 1 ACUTE ILLNESS, 1 STABLE CHRONIC CONDITION, OR 2 MINOR PROBLEMS ADDRESSED 2)DATA: TESTS INTERPRETED AND OR ORDERED, TOOK INDEPENDENT HISTORY OR RECORDS REVIEWED 3)RISK: LOW RISK DUE TO NATURE OF MEDICAL CONDITIONS/COMORBIDITY OR MEDICATIONS ORDERED OR SURGICALOR PROCEDURE REFERRAL Follow [facility] as [facility] of Present illness Narrative* MYKE Amaya - 09/12/2023 3:40 PM EST Subjective Patient ID: Luz Hinojosa is a 22 y.o. female who presents for Anxiety (Pt c/o of anxiety medication not working ). VIRTUAL APPOINTMENT BEING PERFORMED DUE TO COVID-19 (CORONAVIRUS) HPI: Presents today for C/O INCREASED ANXIETY OVER THE PAST FEW WEEKS. modifying factors consists of VIJAYA LONGER FEELS HER MEDS ARE HELPING associated symptoms consist of NO SUICIDAL IDEATION prior treatment consists of medication CELEXA 40 MG Visit Vitals LMP 08/10/2023 OB Status Having periods Smoking Status Every Day Review of Systems Constitutional: Negative for chills, fatigue, fever and unexpected weight change. HENT: Negative for congestion, ear pain, sore throat and trouble swallowing. Eyes: Negative for photophobia, pain, redness and visual disturbance. Respiratory: Negative for apnea, cough, choking, chest tightness, shortness of breath and wheezing. Cardiovascular: Negative for chest pain, palpitations and leg swelling. Gastrointestinal: Negative for abdominal distention, abdominal pain, blood in stool, constipation, diarrhea, nausea and vomiting. Genitourinary: Negative for difficulty urinating, dysuria, flank pain, frequency, hematuria and urgency. Musculoskeletal: Negative for arthralgias, back pain, gait problem, joint swelling, myalgias and neck pain. Skin: Negative for rash and wound. Neurological: Negative for dizziness, seizures, syncope, facial asymmetry, speech difficulty, weakness, numbness and headaches. Psychiatric/Behavioral: Negative for confusion, sleep disturbance and suicidal ideas. The patient is nervous/anxious. Objective Physical Exam Neurological: Mental Status: She is alert. Psychiatric: Mood and Affect: Mood normal. Behavior: Behavior normal. Thought Content: Thought content normal. Judgment: Judgment normal. Assessment/Plan Problem List Items Addressed This Visit Generalized anxiety disorder with panic attacks - Primary DECREASE CELEXA TO 20 MG FROM 40 MG X 3 WEEKS, THEN 10 MG FOR 3 WEEKS. START LEXAPRO 10 MG. MAY INCREASE TO 20 MG IN 3 WEEKS IF NEEDED WE DISCUSSED MOST COMMON SIDE EFFECTS OF PRESCRIBED MEDICATIONS. INDICATIONS, RISK, COMPLICATIONS, AND ALTERNATIVES OF MEDICATION/THERAPEUTICS WERE EXPLAINED AND DISCUSSED. PLEASE MONITOR CLOSELY FORANY UNTOWARD SIDE EFFECTS OR COMPLICATIONS OF MEDICATIONS. PATIENT IS STRONGLY ADVISED TO BE COMPLIANT WITH RECOMMENDATIONS. QUESTIONS AND CONCERNS WERE ADDRESSED. INSTRUCTED TO CALL, RETURN SOONER, OR GO TO THE ER, IF SYMPTOMS PERSIST OR WORSEN. THEY VOICED UNDERSTANDING AND DENIES FURTHER QUESTIONS AT THIS TIME. TIME CODE 1. PREPARATION FOR PATIENT'S VISIT (REVIEWING CHART, CURRENT MEDICAL RECORDS, OUTSIDE HEALTH PROVIDER RECORDS, PREVIOUS HISTORY, EXAM, TEST, PROCEDURE, AND MEDICATIONS) 2. FACE TO FACE ENCOUNTER OBTAINING HISTORY FROM THE PATIENT/FAMILY/CAREGIVERS; PERFORMING EVALUATION AND EXAMINATION; ORDERING TESTS OR PROCEDURES; REFERRING AND COMMUNICATING WITH OTHER HEALTHCARE PROVIDERS; COUNSELING AND EDUCATION OF THE PATIENT/FAMILY/CAREGIVERS; INDEPENDENTLY INTERPRETING RESULTS (TESTS, LABS, PROCEDURES, IMAGING) AND COMMUNICATING AND EXPLAINING RESULTS TO THE PATIENT/FAMILY/CAREGIVERS 3. COORDINATION OF CARE; PREPARING AND PRINTING DISCHARGE INSTRUCTIONS AND ANY EDUCATIONAL MATERIALFOR THE PATIENT/FAMILY/CAREGIVERS. DOCUMENTING CLINICAL INFORMATION IN THE ELECTRONIC MEDICAL RECORD 4. REVIEWING OARRS NEEDED MDM 1) COMPLEXITY: MORE THAN 1 STABLE CHRONIC CONDITION ADDRESSED OR 1 ACUTE ILLNESS ADDRESSED 2)DATA: TESTS INTERPRETED AND OR ORDERED, TOOK INDEPENDENT HISTORY OR RECORDS REVIEWED 3)RISK: MODERATE RISK DUE TO NATURE OF MEDICAL CONDITIONS/COMORBIDITY OR MEDICATIONS ORDERED OR SURGICAL OR PROCEDURE REFERRAL 1 MONTH MED [facility] of Present illness Narrative* MYKE Amaya - 09/19/2023 1:00 PM EST Subjective Patient ID: Luz Hinojosa is a 22 y.o. female who presents for Sore Throat ( and headache x 2 days , diarrhea and dizziness x 1 day ). VIRTUAL APPOINTMENT BEING PERFORMED DUE TO COVID-19 (CORONAVIRUS) HPI: Presents today for C/O SORE THROAT AND MEJIA X 2 DAYS modifying factors consists of NO COVID TEST TAKEN associated symptoms consist of DIZZINESS, NAUSEA, AND DIARRHEA. NO VOMITING prior treatment consists of medication NONE Visit Vitals LMP 08/10/2023 OB Status Having periods Smoking Status Every Day Review of Systems Constitutional: Positive for fatigue. Negative for chills, fever and unexpected weight change. HENT: Positive for congestion and sore throat. Negative for ear pain and trouble swallowing. Eyes: Negative for photophobia, pain, redness and visual disturbance. Respiratory: Negative for apnea, cough, choking, chest tightness, shortness of breath and wheezing. Cardiovascular: Negative for chest pain, palpitations and leg swelling. Gastrointestinal: Positive for diarrhea and nausea. Negative for abdominal distention, abdominal pain, blood in stool, constipation and vomiting. Genitourinary: Negative for difficulty urinating, dysuria, flank pain, frequency, hematuria and urgency. Musculoskeletal: Negative for arthralgias, back pain, gait problem, joint swelling, myalgias and neck pain. Skin: Negative for rash and wound. Neurological: Negative for dizziness, seizures, syncope, facial asymmetry, speech difficulty, weakness, numbness and headaches. Psychiatric/Behavioral: Negative for confusion, sleep disturbance and suicidal ideas. The patient is not nervous/anxious. Objective Physical Exam Neurological: Mental Status: She is alert. Psychiatric: Mood and Affect: Mood normal. Behavior: Behavior normal. Thought Content: Thought content normal. Judgment: Judgment normal. Assessment/Plan Problem List Items Addressed This Visit Nausea - Primary Relevant Medications ondansetron (Zofran) 4 mg tablet Acute non-recurrent sinusitis Relevant Medications azithromycin (Zithromax) 250 mg tablet predniSONE (Deltasone) 10 mg tablet Nasal congestion Relevant Medications COVID-19 antigen test (COVID-19 At-Home Test) kit CALL WITH COVID-19 TESTING RESULTS. INCREASE FLUID INTAKE AND TAKE TYLENOL 650 MG PO Q6H/PRN FOR PAIN OR FEVER. RETURN SOONER OR GO TO THE ER IF SYMPTOMS PERSIST OR WORSEN WE DISCUSSED MOST COMMON SIDE EFFECTS OF PRESCRIBED MEDICATIONS. INDICATIONS, RISK, COMPLICATIONS, AND ALTERNATIVES OF MEDICATION/THERAPEUTICS WERE EXPLAINED AND DISCUSSED. PLEASE MONITOR CLOSELY FORANY UNTOWARD SIDE EFFECTS OR COMPLICATIONS OF MEDICATIONS. PATIENT IS STRONGLY ADVISED TO BE COMPLIANT WITH RECOMMENDATIONS. QUESTIONS AND CONCERNS WERE ADDRESSED. INSTRUCTED TO CALL, RETURN SOONER, OR GO TO THE ER, IF SYMPTOMS PERSIST OR WORSEN. THEY VOICED UNDERSTANDING AND DENIES FURTHER QUESTIONS AT THIS TIME. TIME CODE 1. PREPARATION FOR PATIENT'S VISIT (REVIEWING CHART, CURRENT MEDICAL RECORDS, OUTSIDE HEALTH PROVIDER RECORDS, PREVIOUS HISTORY, EXAM, TEST, PROCEDURE, AND MEDICATIONS) 2. FACE TO FACE ENCOUNTER OBTAINING HISTORY FROM THE PATIENT/FAMILY/CAREGIVERS; PERFORMING EVALUATION AND EXAMINATION; ORDERING TESTS OR PROCEDURES; REFERRING AND COMMUNICATING WITH OTHER HEALTHCARE PROVIDERS; COUNSELING AND EDUCATION OF THE PATIENT/FAMILY/CAREGIVERS; INDEPENDENTLY INTERPRETING RESULTS (TESTS, LABS, PROCEDURES, IMAGING) AND COMMUNICATING AND EXPLAINING RESULTS TO THE PATIENT/FAMILY/CAREGIVERS 3. COORDINATION OF CARE; PREPARING AND PRINTING DISCHARGE INSTRUCTIONS AND ANY EDUCATIONAL MATERIALFOR THE PATIENT/FAMILY/CAREGIVERS. DOCUMENTING CLINICAL INFORMATION IN THE ELECTRONIC MEDICAL RECORD 4. REVIEWING OARRS NEEDED MDM 1) COMPLEXITY: MORE THAN 1 STABLE CHRONIC CONDITION ADDRESSED OR 1 ACUTE ILLNESS ADDRESSED 2)DATA: TESTS INTERPRETED AND OR ORDERED, TOOK INDEPENDENT HISTORY OR RECORDS REVIEWED 3)RISK: MODERATE RISK DUE TO NATURE OF MEDICAL CONDITIONS/COMORBIDITY OR MEDICATIONS ORDERED OR SURGICAL OR PROCEDURE REFERRAL Follow [facility] as before [facility] Narrative No data available for this section [facility] No data available for this section [facility] note No data available for this section [facility] HospitalReason for referral (narrative)* Consultation (Routine) - Pending Review Specialty Diagnoses / Procedures Referred By Claritza macias Referred To Contact Obstetrics and Gynecology / Urology Diagnoses Urinary frequency Jordyn Thakur APRN-CNP [address] [place] [address] Referral ID Status Reason Start Date Expiration Date Visits Requested Visits Authorized [id number] Pending Review Specialty Services Required 3 05/17/2024 1 1 [facility] Work Phone: Summary Purpose Family History No Family History Records FoundUnknown Family Member Name Dates Details Family history of type 2 ankita betes mellitus: Maternal Grandmother(V18.0, Z83.3) Status:Active Bipolar 1 disorder: Mother Status:Active No pertinent family history: Father(V49.89, Z78.9) Status:Active Family history of myocardial infarction: Maternal Grandmother(V17.3, Z82.49) Comments:in her 40's; Status:Active : Maternal Grandmoth er Status:Active Unknown Family Member Name Dates Details Family history of type 2 ankita betes mellitus: Maternal Grandmother(V18.0, Z83.3) Status:Active Bipolar 1 disorder: Mother Status:Active No pertinent family history: Father(V49.89, Z78.9) Status:Active Family history of myocardial infarction: Maternal Grandmother(V17.3, Z82.49) Comments:in her 40's; Status:Active : Maternal Grandmoth er Status:Active Unknown Family Member Name Dates Details Family history of type 2 ankita betes mellitus: Maternal Grandmother(V18.0, Z83.3) Status:Active Bipolar 1 disorder: Mother Status:Active No pertinent family history: Father(V49.89, Z78.9) Status:Active Family history of myocardial infarction: Maternal Grandmother(V17.3, Z82.49) Comments:in her 40's; Status:Active : Maternal Grandmoth er Status:Active Unknown Family Member Name Dates Details Family history of type 2 ankita betes mellitus: Maternal Grandmother(V18.0, Z83.3) Status:Active Bipolar 1 disorder: Mother Status:Active No pertinent family history: Father(V49.89, Z78.9) Status:Active Family history of myocardial infarction: Maternal Grandmother(V17.3, Z82.49) Comments:in her 40's; Status:Active : Maternal Grandmoth er Status:Active Unknown Family Member Name Dates Details Family history of type 2 ankita betes mellitus: Maternal Grandmother(V18.0, Z83.3) Status:Active Bipolar 1 disorder: Mother Status:Active No pertinent family history: Father(V49.89, Z78.9) Status:Active Family history of myocardial infarction: Maternal Grandmother(V17.3, Z82.49) Comments:in her 40's; Status:Active : Maternal Grandmoth er Status:Active Unknown Family Member Name Dates Details Family history of type 2 ankita betes mellitus: Maternal Grandmother(V18.0, Z83.3) Status:Active Bipolar 1 disorder: Mother Status:Active No pertinent family history: Father(V49.89, Z78.9) Status:Active Family history of myocardial infarction: Maternal Grandmother(V17.3, Z82.49) Comments:in her 40's; Status:Active : Maternal Grandmoth er Status:Active Advance Directives No Advanced Directives Records FoundNo Advanced Directives Records FoundNo Advanced Directives Records FoundNo Advanced Directives Records FoundNo Advanced Directives Records FoundNo Advanced Directives Records FoundNo Advanced Directives Records FoundNo Advanced Directives Records FoundNo Advanced Directives Records FoundNo Advanced Directives Records FoundNo Advanced Directives Records FoundNo Advanced Directives Records Found Chief Complaint EST NEW; C/O ANXIETYHAVING PROBLEMS SLEEPING. WAKING UP W BODY SWEATY, BUT COLD. WAKES UP DIZZY SOMETIMES.C/O SOME SPOTTING SUNDAY AND SUNDAY WHEN WIPING WITH LOWER ABD CRAMPING. NEG TEST AND UNPROTECTED SEXPt here to discuss meds. States she has been having really bad mood swings x 4 months and wants to discuss her options. Reason for Referral Specialty Diagnoses / Procedures Referred By Claritza macias Referred To Contact Diagnoses Generalized anxiety disorder with panic attacks Jordyn Thakur, RAILWAY SIGNALLING ENGINEER-INSTRUCTOR [employer] [address] [place] [address] Referral ID Status Reason Start Date Expiration Date Visits Re quested Visits Authorized [id number] Closed 1 1 Additional Source Comments INFORMATION SOURCE (unrecogn ized section and content) DATE CREATED AUTHOR 10/28/2018 [facility] DATE CREATED AUTHOR AUTHOR'S ORGANIZ ATION 04/08/2019 [facility] DATE CREATED AUTHOR AUTHOR'S ORGANIZ ATION 10/29/2021 [facility] DATE CREATED AUTHOR AUTHOR'S ORGANIZ ATION 06/11/2022 [facility] DATE CREATED AUTHOR AUTHOR'S ORGANIZ ATION 08/04/2022 [employer] DATE CREATED AUTHOR AUTHOR'S ORGANIZ ATION 04/02/2023 [facility] DATE CREATED AUTHOR AUTHOR'S ORGANIZ ATION 04/16/2023 [facility] DATE CREATED AUTHOR AUTHOR'S ORGANIZ ATION 05/09/2023 [facility] DATE CREATED AUTHOR AUTHOR'S ORGANIZ ATION 09/03/2023 [facility] DATE CREATED AUTHOR AUTHOR'S ORGANIZ ATION 10/04/2023 [facility] DATE CREATED AUTHOR AUTHOR'S ORGANIZ ATION 10/11/2023 [facility] DATE CREATED AUTHOR AUTHOR'S ORGANIZ ATION 11/02/2023 [facility] <item><item><item><item><item> Privacy Markings (unrecogniz ed section and content) Section Author: Heide Au PROHIBITION ON REDISCLOSURE OF CONFIDENTIAL INFORMATION This notice accompanies a disclosure of information concerning a client made to you with the consent of such client. Section Author: Heide Au PROHIBITION ON REDISCLOSURE OF CONFIDENTIAL INFORMATION This notice accompanies a disclosure of information concerning a client made to you with the consent of such client. Section Author: Heide Au PROHIBITION ON REDISCLOSURE OF CONFIDENTIAL INFORMATION This notice accompanies a disclosure of information concerning a client made to you with the consent of such client. Section Author: Heide Au PROHIBITION ON REDISCLOSURE OF CONFIDENTIAL INFORMATION This notice accompanies a disclosure of information concerning a client made to you with the consent of such client. Section Author: Heide Au PROHIBITION ON REDISCLOSURE OF CONFIDENTIAL INFORMATION This notice accompanies a disclosure of information concerning a client made to you with the consent of such client. Reason for Visit (unrecogniz ed section and content) Reason Comments Injury Reason Comments Vaginitis/Bacterial Vaginosis Pt c/o itc crescencio and discomfort for a few days Reason Comments Follow-up F/U HOSPITAL DISCHAR GE 04/11/23 PYELONEPHRITIS + ER VISIT 04/13/23 FLANK PAIN. C/O STOPPED TAKING PAXIL RESTARTED TAKING AGAIN, CLAIMS THE DOSE IS TOO HIGH TO TAKE RIGHT NOW AND PILL IS HARD TO BREAK APART TO TAKE THE 20 MG Reason Comments UTI Pt c/o possible uti, pt states she is unable to urinate on and off for months Medication Problem Pt states Paxil give s her insomnia and headache Reason Comments Urinary Frequency Vaginal burning with urination. Increased frequency in urination. Reason Comments New Patient Visit New patient here wit h questions about ovulation. LMP: 08/10/23. Reason Comments Anxiety Pt c/o of anxiety me dication not working Reason Comments Sore Throat and headache x 2 day s , diarrhea and dizziness x 1 day Reason Comments Follow-up Med check ; pt stopp ed celexa Care Teams (unrecognized sec tion and content) Radio Technician Relationship Specialty Start Date End Date Jordyn Ramirez, INSTRUCTOR [employer] [address] [place], [place] [id number] PCP - General Nurse Practitioner 04/25/22 Radio Technician Relationship Specialty Start Date End Date Jordyn Thakur, FATEMEH-INSTRUCTOR [employer] [address] [place] [address] PCP - General 03/03/22 Radio Technician Relationship Specialty Start Date End Date Jordyn Thakur, RAILWAY SIGNALLING ENGINEER-INSTRUCTOR [employer] [address] [place] [address] PCP - General 03/03/22 Jordyn Thakur, RAILWAY SIGNALLING ENGINEER-INSTRUCTOR [employer] [address] [place] [address] PCP - [facility] Medicaid PCP 10/21/22 Claudia Quick, operation shift supervisorOncology Rep Specialist 04/12/23 Radio Technician Relationship Specialty Start Date End Date Jordyn Thakur, RAILWAY SIGNALLING ENGINEER-INSTRUCTOR [employer] [address] [place] [address] PCP - General 03/03/22 Jordyn Thakur, RAILWAY SIGNALLING ENGINEER-INSTRUCTOR [employer] [address] [place] [address] PCP - [facility] Medicaid PCP 10/21/22 Claudia Quick, operation shift supervisorOncology Rep Specialist 04/12/23 Radio Technician Relationship Specialty Start Date End Date Jordyn Thakur, RAILWAY SIGNALLING ENGINEER-INSTRUCTOR [employer] [address] [place] [address] PCP - General 03/03/22 Jordyn Thakur, RAILWAY SIGNALLING ENGINEER-INSTRUCTOR [employer] [address] [place] [address] PCP - [facility] Medicaid PCP 10/21/22 Claudia Quick, operation shift supervisorOncology Rep Specialist 04/12/23 Radio Technician Relationship Specialty Start Date End Date Jordyn Thakur, RAILWAY SIGNALLING ENGINEER-INSTRUCTOR [employer] [address] [place] [address] PCP - General 03/03/22 Jordyn Thakur, RAILWAY SIGNALLING ENGINEER-INSTRUCTOR [employer] [address] [place] [address] PCP - [facility] Medicaid PCP 10/21/22 Radio Technician Relationship Specialty Start Date End Date Jordyn Thakur, RAILWAY SIGNALLING ENGINEER-INSTRUCTOR [employer] [address] [facility] [place] [address] [facility] 03/03/22 Jordyn hTakur, RAILWAY SIGNALLING ENGINEER-INSTRUCTOR [employer] [address] [facility] [place] [address] PCP - [facility] Medicaid PCP 10/21/22 Radio Technician Relationship Specialty Start Date End Date Jordyn Thakru, RAILWAY SIGNALLING ENGINEER-INSTRUCTOR [employer] [address] [facility] [address] [place] [id number] [facility] 03/03/22 Jordyn Thakur, RAILWAY SIGNALLING ENGINEER-INSTRUCTOR [employer] [address] [facility] [place] [address] PCP - [facility] Medicaid PCP 10/21/22 Radio Technician Relationship Specialty Start Date End Date Jordyn Thakur, RAILWAY SIGNALLING ENGINEER-INSTRUCTOR [employer] [address] [facility] [place] [address] [facility] 03/03/22 Jordyn Thakur, RAILWAY SIGNALLING ENGINEER-INSTRUCTOR [employer] [address] [facility] [place] [address] PCP - [facility] Medicaid PCP 10/21/22 Scheduled Active and Recently Administ ered Medications (unrecognized section and content) Medication Order 06/17/2023 06/18/2023 06/19/2023 cephalexin (Keflex) capsule 500 mg (COMPLETED) 500 mg, oral, Once, On Sun06/19/23 at 1805, For 1 dose, Suspected Indication (Select all that apply): Urinary Tract Infection, Type of Therapy: Definitive, No Cultures, Type of Urinary Tract Infection: Uncomplicated 1821 (Given - Provid er: Kusum Villegas RN) FOR RECORDS PERTAINING TO PATIENTS WHO ARE OR HAVE BEEN ENROLLED IN A CHEMICAL DEPENDENCY/SUBSTANCEABUSE PROGRAM, SOME INFORMATION MAY BE OMITTED. This clinical summary was aggregated from multiple sources. Caution should be exercised in using it in the provision of clinical care. This summary normalizes information from multiple sources, and as a consequence, information in this document may materially change the coding, format and clinical context of patient data. In addition, data may be omitted in some cases. CLINICAL DECISIONS SHOULD BE BASED ON THE PRIMARY CLINICAL RECORDS. [employer] provides no warranty or guarantee of the accuracy or completeness of information in this document.
[2023-11-29 22:40] LABS: Bilirubin Urine NEGATIVE (NEGATIVE); Blood Urine NEGATIVE (NEGATIVE); Clarity Urine CLEAR (CLEAR); Color Urine YELLOW (YELLOW); Glucose Urine UA NEGATIVE (NEGATIVE); Ketones Urine NEGATIVE (NEGATIVE); Leukocyte Esterase Urine NEGATIVE (NEGATIVE); Nitrite Urine NEGATIVE (NEGATIVE); Protein Urine NEGATIVE (NEG/TRACE); Specific Gravity Urine >=1.030 (1.005-1.025)
[2023-11-29 22:41] LABS: HCG Qualitative Urine* NEGATIVE (NEGATIVE)
[2023-11-29 22:43] LABS: Urine Microscopic Indicated NO
--- NOTE | 2023-11-29 22:45 | ED.ABDPAIN1 ---
HPI - Abdominal Pain General Chief Complaint: Abdominal Pain Stated Complaint: ABDOMINAL AND LOWER BACK PAIN Time Seen by Provider: 11/29/23 22:42 Source: patient Mode of arrival: walk-in History of Present Illness HPI narrative: patient states she has been trying to get . Took home preg test and believes it was weakly positive. Some abdominal cramping earlier but none now. No fever or urinary symptoms. She otherwise feels well Related Data Home Medications ?Medication ?Instructions ?Recorded ?Confirmed escitalopram oxalate 10 mg tablet 10 mg PO QDAY 10/31/23 11/29/23 metformin 500 mg tablet,extended 500 mg PO BID 10/31/23 11/29/23 release 24 hr omeprazole 20 mg capsule,delayed 20 mg PO QAM 10/31/23 11/29/23 release ondansetron HCl 4 mg tablet 4 mg PO Q6H PRN nausea and vomiting 10/31/23 10/31/23 clomiphene citrate 50 mg tablet mg 11/29/23 (Clomid) Allergies Allergy/AdvReac Type Severity Reaction Status Date / Time paxil Allergy Mild Insomnia Uncoded 11/29/23 22:27 clonidine Allergy hives Uncoded 11/29/23 22:27 Review of Systems ROS Status of ROS 10 or more systems reviewed and unremarkable except as noted in history and below [facility] Medical History (Updated 11/29/23 @ 23:12 by Alexander De Jesus MD) GERD (gastroesophageal reflux disease) ?K21.9 - Gastro-esophageal reflux disease without esophagitis (ICD-10) Anxiety ?F41.9 - Anxiety disorder, unspecified (ICD-10) Exam Constitutional Vital Signs, click to edit/add: Last Vital Signs Temp 98.5 F 11/29/23 22:25 Pulse 88 11/29/23 22:25 Resp 16 11/29/23 22:25 BP 116/81 11/29/23 22:25 Pulse Ox 98 11/29/23 22:25 O2 Del Method Room Air 11/29/23 22:25 Common normals: no apparent distress, average body habitus, oriented x3, no limitations, healthy appearing and alert [facility] Common normals: normocephalic and head/scalp atraumatic Eye Common normals: EOMs intact bilaterally and conjunctivae normal Respiratory Common normals: normal respiratory effort, no retractions, no use of accessory muscles and clear to auscultation bilaterally Cardio Common normals: regular rate, regular rhythm, S1 normal heart sound and S2 normal heart sound GI Common normals: Normal to inspection, nondistended, normoactive bowel sounds present, soft to palpation and non-tender Extremity Common normals: normal to inspection and full ROM Neuro Common normals: oriented x3, CN's II-XII intact bilaterally, moves all extremities and no focal motor deficits Psych Appearance: grossly normal Course Vital Signs Vital signs: Vital Signs Temperature 98.5 F 11/29/23 22:25 Pulse Rate 88 11/29/23 22:25 Respiratory Rate 16 11/29/23 22:25 Blood Pressure 116/81 11/29/23 22:25 Pulse Oximetry 98 11/29/23 22:25 Oxygen Delivery Method Room Air 11/29/23 22:25 Temperature 98.5 F 11/29/23 22:25 Pulse Rate 88 11/29/23 22:25 Respiratory Rate 16 11/29/23 22:25 Blood Pressure 116/81 11/29/23 22:25 Pulse Oximetry 98 11/29/23 22:25 Oxygen Delivery Method Room Air 11/29/23 22:25 MDM - Abdominal Pain MDM Narrative Medical decision making narrative: patient presents concerned she may be . Did have some mild abdominal cramping. Neg abdominal exam.lab testing in the ER neg for . UA with evidence of dehydration. patient discharged home in good condition Lab Data Labs: Lab Results 11/29/23 Range/Units 22:35 Urine Color Yellow (YELLOW) Urine Clarity Clear (CLEAR) Urine pH 6.0 (5.0-9.0) Ur Specific [place] >=1.030 A (1.005-1.025) Urine Protein Negative (NEG/TRACE) mg/dL Urine Glucose (UA) Negative (NEGATIVE) mg/dL Urine Ketones Negative (NEGATIVE) mg/dL Urine Occult Blood Negative (NEGATIVE) Urine Nitrite Negative (NEGATIVE) Urine Bilirubin Negative (NEGATIVE) Urine Urobilinogen 1.0 (0.2-1.0) EU/dL Ur Leukocyte Esterase Negative (NEGATIVE) Urine HCG, Qual Negative (NEGATIVE) Discharge Plan Discharge Stand Alone Forms: Portal Instructions Chief Complaint: Abdominal Pain Clinical Impression: Dehydration, mild Patient Disposition: Home, Self-Care Prescriptions / Home Meds: No Action clomiphene citrate [Clomid] 50 mg tablet metformin 500 mg tablet extended release 24 hr 500 mg PO BID escitalopram oxalate 10 mg tablet 10 mg PO QDAY omeprazole 20 mg capsule,delayed release(DR/EC) 20 mg PO QAM ondansetron HCl 4 mg tablet 4 mg PO Q6H PRN (Reason: nausea and vomiting) Print Language: Bhutanese Instructions: Dehydration (ED) Referrals: Physician,Non-Staff, MD [Primary Care Provider] - 1 week
== END 2023-11-29 23:17 | disposition home or self-care (01) ==
PROVIDERS: Emergency Provider Internal Medicine
DX: E86.0 Dehydration (principal); K21.9 Gastro-esophageal reflux disease without esophagitis; F41.9 Anxiety disorder, unspecified; Z79.899 Other long term (current) drug therapy
CPT/HCPCS: 81003; 84703; 99283

== ENCOUNTER 2024-01-15 21:37 | Emergency (ER) | payer OTHER, SELFPAY ==
[2024-01-15 21:42] VITALS: BP 119/76; PULSE 99; TEMP 36.8; O2SAT 99
--- OUTSIDE RECORDS SUMMARY | 2024-01-15 21:46 | XMS_ITS | CCD ---
Author Organization [facility] Care Team Providers Care Poker Room Manager Name Role Phone Page Ferris Primary Care Unavailable Esdras Villanueva Admitting Unavailable Esdras Villanueva Attending Unavailable Page Ferris Primary Care Unavailable Cornici, Hong Admitting Unavailable Cornici, Hong Attending Unavailable Page Ferris Primary Care Unavailable Cornici, Hong Admitting Unavailable Cornici, Hong Attending Unavailable DILIA BURNS Admitting Unavailable DILIA BURNS Attending Unavailable NO, DOCTOR ON Referring Unavailable DILIA BURNS Primary Care Unavailable NO, DOCTOR ON Consulting Unavailable Page Ferris Unavailable Alie Rodriguez Unavailable Unavailable Jordyn Ramirez Unavailable Unavailable Unavailable Jordyn Ramirez CNP Primary Care Provider [phone] JOSELIN NOYOLA Referring Unavailable JOSELIN NOYOLA Admitting Unavailable RAMIREZ, JORDYN ARIE Primary Care Unavailable JOSELIN NOYOLA Attending Unavailable ASHLEY, JORDYN ARIE Primary Care Unavailable JOSELIN NOYOLA Referring Unavailable RAMIREZ, JORDYN ARIE Primary Care Unavailable JOSELIN NOYOLA Admitting Unavailable JOSELIN NOYOLA Attending Unavailable ASHLEY, JORDYN ARIE Primary Care Unavailable JOSELIN NOYOLA Referring Unavailable JOSELIN NOYOLA Admitting Unavailable RAMIREZ, JORDYN ARIE Primary Care Unavailable JOSELIN NOYOLA Attending Unavailable ASHLEY, JORDYN ARIE Primary Care Unavailable Jordyn Thakur Unavailable Page Ferris Unavailable Thakur, Jordyn Unavailable Tryell Pelaez Unavailable Unavailable Fried, Jocelyne Unavailable Unavailable Thakur INFORMATION SERVICES TECH-SWITCH HOUSE OPERATOR, Jordyn D Primary Care Provider [phone] Alie Flor Unavailable Unavailabl e RAMIREZ, JORDYN ARIE Primary Care Unavailable STANLEY QUILES Attending Unavailable STANLEY QUILES Attending Unavailable JOANNA HENLEYZACandy Primary Care Unav ailable ASHLEY, JORDYN ARIE Primary Care Unavailable MARE LEAVITT Attending Unava ilable Mohan Bautista Unavailable Unavailable Chris Blue Unavailable Unavailabl e THAKUR, SWITCH HOUSE OPERATOR JORDYN ARIE Primary Care Unavailab le Fried, Ms. Ojcelyne Rosa Attending Unavailabl e THAKUR, SWITCH HOUSE OPERATOR JORDYN ARIE Primary Care Unavailab le Zarrabi, Dr. Mcmullen Attending Unavailable Wale, Dr. Mcmullen Referring Unavailable THAKUR, SWITCH HOUSE OPERATOR JORDYN ARIE Attending Unavailab le THAKUR, SWITCH HOUSE OPERATOR JORDYN ARIE Referring Unavailab le THAKUR, SWITCH HOUSE OPERATOR JORDYN ARIE Primary Care Unavailab le TAHKUR, SWITCH HOUSE OPERATOR JORDYN ARIE Attending Unavailab le THAKUR, SWITCH HOUSE OPERATOR JORDYN ARIE Referring Unavailab le THAKUR, SWITCH HOUSE OPERATOR JORDYN ARIE Primary Care Unavailab le Zarrabi, Dr. Mcmullen Attending Unavailable Zarrcandace, Dr. Mcmullen Referring Unavailable THAKUR, SWITCH HOUSE OPERATOR JORDYN ARIE Primary Care Unavailab le THAKUR, KARLENE JORDYN ARIE Primary Care Unavailab le Zarrabi, Dr. Mcmullen Attending Unavailable Zalorraine, Dr. Mcmullen Referring Unavailable Thakur INFORMATION SERVICES TECH-KARLENE, Jordyn D Unavailable Claudia Quick RN Unavailable Unavailable Basia, Ms. Alie Ward Attending Unavailable Thakur, Ms. Jordyn Arie Primary Care Unavailab le Thakur, Ms. Jordyn Arie Primary Care Unavailab le LeMtico, Dr. Chris Lemos Attending Unav ailable Simon, Ms. Jordyn Arie Primary Care Unavailab le Latanya, Dr. Tyrell Gray Attending Unavailabl e Thakur, Ms. Jordyn Arie Primary Care Unavailab le Mohan, Bautista Attending Unavailable Daniel Berkowitz Admitting Unavailab le Daniel Berkowitz Referring Unavailab le THAKUR, JORDYN D Primary Care Unavailable NONE, XXXX Primary Care Physician Unavailab fransisco THAKUR, JORDYN Jason Primary Care Unavailable THAKUR, JORDYN D Attending Unavailable THAKUR, JORDYN D Primary Care Unavailable KEMI ECHEVARRIA Attending Unavailable THAKUR, JORDYN D Primary Care Unavailable THAKUR, JORDYN D Attending Unavailable THAKUR, JORDYN D Primary Care Unavailable THAKUR, JORDYN D Attending Unavailable THAKUR, JORDYN D Primary Care Unavailable ANIKA RICHARDSON Attending Unavailable THAKUR, JORDYN D Primary Care Unavailable THAKUR, JORDYN D Attending Unavailable THAKUR, JORDYN D Primary Care Unavailable THAKUR, JORDYN D Attending Unavailable THAKUR, JORDYN D Primary Care Unavailable THAKUR, JORDYN D Attending Unavailable THAKUR, JORDYN D Primary Care Unavailable Anika Bob Attending Unavailable Anika Bob Admitting Unavailable Anika Bob Admitting Unavailable Anika Bob Attending Unavailable PaulinoAnika jasso Admitting Unavailable PaulinoAnika ajsso Attending Unavailable Allergies Allergy Classification Reported Allergen(s) Allergy Type Date of Onset Reaction(s) Facility cloNIDine (1 source) cloNIDine Drug Allergy Hives/Urticaria [facility] (20 sources) cloNIDine; Translations: [clonidine] Drug Allergy 1 [facility] Repository (9 sources) PARoxetine; Translations: [PAROXETINE HCL] Drug Allergy 3 [facility] Work Phone: Medications Current Medications Medication [...] DAILY. Quantity: 90 Refills: 1 Ordered: 06-Jun-2022 Jordyn Guzmán Start : 03-Mar-2022 Active Start: 03-03-2022 take 1 tablet by christiano th once daily PARoxetine HCl - 10 MG Oral Tablet TAKE 1 TABLET DAILY. Quantity: 90 Refills: 0 Ordered: 03-Mar-2022 Jordyn Torres Start : 03-Mar-2022 Active take 1 tablet [...] Start: 05-18-2023 take 1 tablet by christiano th once daily citalopram (CeleXA) 10 mg tablet [...] disorder, unspecified type] Onset: 02-22-2011 10-20-2022 Chronic Esophageal disorders (18 sources) Gastroesophageal reflux disease; [...] 06-07-2022 Episodic Other aftercare (1 source) Other fpc (current) drug therapy; Translations: [Other assistant terminal manager (current) drug therapy] Onset: 04-13-2023 Episodic Other [...] giddiness] Onset: 10-20-2022 Resolved: 09-12-2023 01-04-2021 Episodic Contraceptive and procreative management (4 sources) Encounter for other general counseling and advice on contraception; Translations: [Encounter for other general counseling and advice on contraception] Onset: 08-21-2023 Episodic Fracture of upper limb (5 sources) [...] Test Name Value Interpretation Reference Range Facility Physician Orderon 01-13-2024 Physician Order [id number]#1.00TIFF [facility]-09-20[place] [address] m[IU]/mL High 1-3 [facility] Comment on above: Result Comment: 'F N ON < 1 - 3' ' 0.2 - 1 WEEK = 5 TO 50' ' 1 - 2 WEEKS = 50 - 500' ' 2 - 3 WEEKS = 100 - 5000' ' 3 - 4 WEEKS = 500 - 07061' ' 4 - 5 WEEKS = 1000 - 67809' ' 5 - 6 WEEKS = 03533 - 513346' ' 6 - 8 WEEKS = 05224 - 906183' ' 8 - 12 WEEKS = 25433 - 538421' Performed By: #### 2 [id number] #### [facility] [address] [place] [address] CHEMISTRYOrdered By: SYSTEM SYSTEM on 01-09-2024 [place] [address] m[IU]/mL High 1 - 3 mIU/mL [facility] Comment on above: Result Comment: 'F N ON < 1 - 3' ' 0.2 - 1 WEEK = 5 TO 50' ' 1 - 2 WEEKS = 50 - 500' ' 2 - 3 WEEKS = 100 - 5000' ' 3 - 4 WEEKS = 500 - 33805' ' 4 - 5 WEEKS = 1000 - 25993' ' 5 - 6 WEEKS = 16524 - 095251' ' 6 - 8 WEEKS = 82736 - 109453' ' 8 - 12 WEEKS = 19583 - 584891' Progesterone Lvl 80.38 ng/mL Invalid Interpretation Code [facility] Comment on above: Result Comment: 'F N ON FOLLICULAR = 0.10 - 0.60' 'LUTEAL = 3.00 - 17.5' 'MIDLUTEAL = 3.30 - 18.6' 'POST-MENOPAUSE = 0.10 - 0.40' '-FIRST TRIMESTER = 8.30 - 66.5' 'SECOND TRIMESTER = 18.9 - 66.1' 'THIRD TRIMESTER = 35.8 - 312.4' 'MALES = 0.14 - 2.06' Result Verified by Dilution Consent for Treatmenton 12-21 Consent for Treatment [id number]24 Physician Order [id number]#1.00TIFF Normal [facility] Progesteroneon 01-09-2024 Progesterone Lvl 80.38 ng/mL Invalid Interpretation Code [facility] Comment on above: Result Comment: 'F N ON FOLLICULAR = 0.10 - 0.60' 'LUTEAL = 3.00 - 17.5' 'MIDLUTEAL = 3.30 - 18.6' 'POST-MENOPAUSE = 0.10 - 0.40' '-FIRST TRIMESTER = 8.30 - 66.5' 'SECOND TRIMESTER = 18.9 - 66.1' 'THIRD TRIMESTER = 35.8 - 312.4' 'MALES = 0.14 - 2.06' Result Verified by Dilution Performed By: #### 2 [id number] #### [facility] [address] [place] [address] Anti-Mullerian Hormone (AMH) on 09-27-2023 Mullerian inhibiting substance [Mass/Vol] 1.81 ng/mL Invalid Interpretation Code [facility] Comment on above: Result Comment: For assays employing antibodies, the possibility exists for interference by heterophile antibodies in the samples.1 1.Hermelinda Durán Interferences in Immunoassays - still a threat. Clin. Chem. 2000; 46: 0568-4697. This test was developed and its performance characteristics determined by [employer]. It has not been cleared or approved by the Food and Drug Administration. Reference Range: Females 20 - 25y: 1.23 - 11.51 Median 4.70 AMH concentrations of >= 1.06 ng/mL is correlated with a better response to ovarian stimulation, produced more retrievable oocytes and higher odds of live according to Evier et al. Fertility and Sterility. 2010: 94:0183-0951. The current AMH test method correlates with [...] exclude an AMH-secreting ovarian tumor. Performed at: [facility] [address], [place] [id number] MD Todd Bedoya Performed By: #### 2 561962, [id number], [id number], [id number], [id number] #### [facility] [address] [place] [address] FSH and LHon 09-27-2023 Follitropin Qn 2.8 m[IU]/mL Invalid Interpretation Code [facility] Comment on above: Result Comment: Adul t Female Range Follicular phase 3.5 - 12.5 Ovulation phase 4.7 - 21.5 Luteal phase 1.7 - 7.7 Postmenopausal 25.8 - 134.8 Performed at: [facility] [address] [id number] PhD Tim Quezada Performed By: #### 2 624600, [id number], [id number], [id number], [id number] #### [facility] [address] [place] [address] Lutropin Qn 3.8 m[IU]/mL Invalid Interpretation Code [facility] Comment on above: Result Comment: Adul t Female Range Follicular phase 2.4 - 12.6 Ovulation phase 14.0 - 95.6 Luteal phase 1.0 - 11.4 Postmenopausal 7.7 - 58.5 Performed By: #### 2 913077, [id number], [id number], [id number], 9212726 #### [facility] [address] [place] [address] Insulin Lvlon 09-27-2023 Insulin Qn 31.9 u[IU]/mL High 2.6-24.9 [facility] Comment on above: Result Comment: Perf ormed at: [facility] [address] [id number] PhD Tim Quezada Performed By: #### 2 312278, [id number], [id number], [id number], [id number] #### [facility] [address] [place] [address] CHEMISTRYOrdered By: SYSTEM SYSTEM on 09-22-2023 Prolactin 14.07 ng/mL Normal 3.34 - 26.72 ng/mL Remisol Chem TSH Qn 1.94 m[IU]/L Normal 0.34 - 5.60 mcIU/mL [facility] Consent for Treatmenton Consent for Treatment [id number] Normal [facility] Physician Orderon 09-22-2023 Physician Order [id number]#1.00TIFF Normal [facility] Prolactinon 09-22-2023 Prolactin 14.07 ng/mL Normal 3.34-26.72 [facility] Comment on above: Performed By: #### 2 864358, [id number], [id number], [id number], [id number] #### [facility] [address] [place] [address] TSHon 09-22-2023 TSH Qn 1.94 m[IU]/L Normal 0.34-5.60 [facility] Comment on above: Performed By: #### 2 573940, [id number], [id number], [id number], [id number] #### [facility] [address] [place] [address] Progesteroneon 08-27-2023 Progesterone [Mass/Vol] 5.4 ng/mL Normal [facility] Comment on above: Result Comment: Ref Values Male <0.3- 1.2 Follicular Phase <0.3- 1.4 Luteal Phase 3.3-25.6 Mid-Luteal Phase 4.4-28.0 Postmenopausal <0.3- 0.7 Females: 1st Trimester 11.2- 90.0 2nd Trimester 25.6- 89.4 3RD Trimester 48.4-422.5 Patients receiving DHEA-S supplements may show false elevation of progesterone for results near 1.0 ng/mL. Contact laboratory at [phone] if alternative testing is needed. Performed By: #### 2 839-9 #### CORBIN Alves ([id number]) [facility] ([facility]) [address] [place] [address] Bacteria identifiedon 2022 Bacteria identified Cx Nom (U) Test: Urine Culture Specimen Source: Clean Catch/Voided Specimen Type: Urine Specimen Date: 07/13/2023 4:11 PM Result Date: 07/16/2023 11:09 AM Result Status: Final result Abnormal: No Resulting Lab: [facility] [address] [place], [place] [address] CULTURE No significant growth Normal [facility] Comment on above: Performed By: #### 6 30-4 #### CORBIN Alves ([id number]) [facility] ([facility]) [address] [place] [address] Bacteria identifiedon 2022 Bacteria identified Cx Nom (U) Test: Urine Culture Specimen Source: Clean Catch/Voided Specimen Type: Urine Specimen Date: 06/19/2023 5:42 PM Result Date: 06/21/2023 8:49 AM Result Status: Final result Abnormal: No Resulting Lab: [facility] [address] [place] [address] CULTURE Normal genitourinary ivy Normal [facility] Comment on above: Performed By: #### 6 30-4 #### CORBIN Alves ([id number]) [facility] ([facility]) [address] [place] [address] HCG ( test) IA.rapi d Ql (U)on 06-19-2023 HCG ( test) Ql (U) Negative Normal NEGATIVE [facility] Comment on above: Performed By: #### 8 0384-1 #### KELBY ROSS ([id number]) [facility] ([facility]) [address] [place] [address] HCG ( test) IA.rapi d Ql (U)Ordered By: Rob Burnham on 06-19-2023 HCG ( test) Ql (U) Negative NEGATIVE [facility] Interpretation and review of laboratory results Normal [facility] No Panel Informationon 06-19 Interpretation and review of laboratory results Abnormal [facility] Urinalysis complete W Reflex Culture panel (U)on 06-19-2023 Appearance (U) Hazy Normal Clear [facility] Comment on above: Performed By: #### 5 8077-9 #### KELBY ROSS ([id number]) [facility] ([facility]) [address] [place] [address] Bilirubin (U) [Mass/Vol] Negative Normal NEGATIVE [facility] Comment on above: Performed By: #### 5 8077-9 #### KELBY ROSS ([id number]) [facility] ([facility]) [address] [place] [address] Color (U) Yellow Normal Straw, Yellow [facility] Comment on above: Performed By: #### 5 8077-9 #### KELBY ROSS ([id number]) [facility] ([facility]) [address] [place] [address] Glucose Auto test strip (U) [Mass/Vol] Negative Normal NEGATIVE [facility] Comment on above: Performed By: #### 5 8077-9 #### KELBY ROSS ([id number]) [facility] ([facility]) [address] [place] [address] Ketones (U) [Mass/Vol] 5 (TRACE) Abnormal NEGATIVE [facility] Comment on above: Performed By: #### 5 8077-9 #### KELBY ROSS ([id number]) [facility] ([facility]) [address] [place] [address] Leukocyte esterase Auto test strip Ql (U) TRACE Abnormal NEGATIVE [facility] Comment on above: Performed By: #### 5 8077-9 #### KELBY ROSS ([id number]) [facility] ([facility]) [address] [place] [address] Nitrite Auto test strip Ql (U) Negative Normal NEGATIVE [facility] Comment on above: Performed By: #### 5 8077-9 #### KELBY ROSS ([id number]) [facility] ([facility]) [address] [place], [place] [address] pH (U) 5.0 [pH] Normal 5.0, 5.5, 6.0, 6.5, 7.0, 7.5, 8.[address] [facility] Comment on above: Performed By: #### 5 8077-9 #### KELBY ROSS ([id number]) [facility] ([facility]) [address] [place], [place] [id number] Protein (U) [Mass/Vol] 100 (2+) Normal NEGATIVE [facility] Comment on above: Performed By: #### 5 8077-9 #### KELBY ROSS ([id number]) [facility] ([facility]) [address] [id number] RBC (U) [#/Vol] Negative Normal NEGATIVE [facility] Comment on above: Performed By: #### 5 8077-9 #### KELBY ROSS ([id number]) [facility] ([facility]) [address] [place] [address] Specific gravity (U) [Rel density] 1.031 Normal 1.005-1.[address] [facility] Comment on above: Performed By: #### 5 8077-9 #### KELBY ROSS ([id number]) [facility] ([facility]) [address] [place] [address] Urobilinogen (U) [Mass/Vol] 2.0 mg/dL Normal <2.[address] [facility] Comment on above: Result Comment: Due to [...] By: #### 5 8077-9 #### KELBY ROSS ([id number]) [facility] ([facility]) [address] [place] [address] Appearance (U) Hazy Abnormal Clear [facility] Bilirubin (U) [Mass/Vol] Negative NEGATIVE [facility] Color (U) Yellow Straw, Yellow [facility] Glucose Auto test strip (U) [Mass/Vol] Negative NEGATIVE mg/dL [facility] Ketones (U) [Mass/Vol] 5 (TRACE) Abnormal NEGATIVE mg/dL [facility] Leukocyte esterase Auto test strip Ql (U) TRACE Abnormal NEGATIVE [facility] Nitrite Auto test strip Ql (U) Negative NEGATIVE [facility] pH (U) 5.0 [pH] 5.0, 5.5, 6.0, 6.5, 7.0, 7.5, 8.0 [facility] Protein (U) [Mass/Vol] 100 (2+) Abnormal NEGATIVE mg/dL [facility] RBC (U) [#/Vol] Negative NEGATIVE [facility] Specific gravity (U) [Rel density] 1.031 1.005 - 1.035 [facility] Urobilinogen (U) [Mass/Vol] 2.0 mg/dL Abnormal NINF - 2.0 mg/dL [facility] Comment on above: Due to a [...] 10-25 (FEW) Normal Reference range not established. [facility] Comment on above: Performed By: #### 5 3315-8 #### KELBY ROSS ([id number]) [facility] ([facility]) [address] [place] [address] Mucus Auto (Urine sed) [#/Area] 2+ /LPF Normal Reference range not established. [facility] Comment on above: Performed By: #### 5 3315-8 #### KELBY ROSS ([id number]) [facility] ([facility]) [address] [place] [address] RBC Auto (Urine sed) [#/Area] 3-5 Normal NONE, 1-2, 3-[address] [facility] Comment on above: Performed By: #### 5 3315-8 #### KELBY ROSS ([id number]) [facility] ([facility]) [address] [place] [address] WBC Auto (Urine sed) [#/Area] 11-20 Abnormal 1-5, NONE [facility] Comment on above: Performed By: #### 5 3315-8 #### KELBY ROSS ([id number]) [facility] ([facility]) [address] [place] [address] Epithelial cells.squamous Auto (Urine sed) [#/Area] 10-25 (FEW) Reference range not established. /HPF [facility] Mucus Auto (Urine sed) [#/Area] 2+ Reference range not established. /LPF [facility] RBC Auto (Urine sed) [#/Area] 3-5 NONE, 1-2, 3-5 /HPF [facility] WBC Auto (Urine sed) [#/Area] 11-20 Abnormal 1-5, NONE /HPF [facility] Bacteria identifiedon 2022 Bacteria identified Cx Nom (U) Test: Urine Culture Specimen Source: Clean Catch/Voided Specimen Type: Urine Specimen Date: 05/18/2023 10:46 AM Result Date: 05/20/2023 8:13 AM Result Status: Final result Abnormal: No Resulting Lab: [facility] [address] [place], [place] [address] CULTURE No significant growth Normal [facility] Comment on above: Performed By: #### 6 30-4 #### CORBIN Alves ([id number]) [facility] ([facility]) [address] [place] [address] POCT UA Automated manually r tami 05-18-2023 Appearance (U) Hazy Abnormal Clear [facility] Work Phone: Glucose Test strip (U) [Mass/Vol] Negative NEGATIVE mg/dl [facility] Work Phone: Hemoglobin Ql (U) MODERATE (2+) Abnormal NEGATIVE [facility] Work Phone: Interpretation and review of laboratory results Abnormal [facility] Work Phone: Leukocyte esterase Test strip Ql (U) Negative NEGATIVE [facility] Work Phone: Nitrite Ql (U) Negative NEGATIVE [facility] Work Phone: pH (U) 7.0 [pH] No Reference Range Established [facility] Work Phone: POC Bilirubin, Urine Negative NEGATIVE [facility] Work Phone: [phone] POC Color, Urine Yellow Straw, Yellow, Light-Yellow [facility] Work Phone: [phone] POC Ketones, Urine 15 (1+) Abnormal NEGATIVE mg/dl [facility] Work Phone: [phone] POC Protein, Urine 30 (1+) NEGATIVE, 30 (1+) mg/dl [facility] Work Phone: [phone] POC Specific [place], Urine 1.025 1.005 - 1.035 [facility] Work Phone: [phone] POC Urobilinogen, Urine 0.2 0.2, 1.0 EU/DL [facility] Work Phone: [phone] [facility] Work Phone: [phone] CBC AND DIFFERENTIALon 04-14 % AUTOMATED IMMATURE GRAN 0.2 % Normal 0.0 - 0.9 [facility] Comment on above: Result Comment: Tammie ture Granulocyte Count (IG) includes promyelocytes, myelocytes and metamyelocytes but does not include bands. Percent differential counts (%) should be interpreted in the context of the absolute cell counts (cells/L). Performed By: #### C BCDF #### [address] [address] Basophils (Bld) [#/Vol] 0.02 10*3/uL Normal 0.00 - 0.10 [facility] Comment on above: Performed By: #### C BCDF #### [address] [address] Basophils/100 WBC (Bld) 0.5 % Normal 0.0 - 2.0 [facility] Comment on above: Performed By: #### C BCDF #### [address] [address] Eosinophils (Bld) [#/Vol] 0.09 10*3/uL Normal 0.00 - 0.70 [facility] Comment on above: Performed By: #### C BCDF #### [address] [address] Eosinophils/100 WBC (Bld) 2.2 % Normal 0.0 - 6.0 [facility] Comment on above: Performed By: #### C BCDF #### [address] [address] Erythrocyte distribution width (RBC) [Ratio] 11.6 % Normal 11.5 - 14.5 [facility] Comment on above: Performed By: #### C BCDF #### [address] [address] Hematocrit (Bld) [Volume fraction] 43.6 % Normal 36.0 - 46.0 [facility] Comment on above: Performed By: #### C BCDF #### [address] [address] Hemoglobin (Bld) [Mass/Vol] 14.3 g/dL Normal 12.0 - 16.0 [facility] Comment on above: Performed By: #### C BCDF #### [address] [address] Lymphocytes (Bld) [#/Vol] 1.48 10*3/uL Normal 1.20 - 4.80 [facility] Comment on above: Performed By: #### C BCDF #### [address] [address] Lymphocytes/100 WBC (Bld) 36.5 % Normal 13.0 - 44.0 [facility] Comment on above: Performed By: #### C BCDF #### [address] [address] MCHC (RBC) [Mass/Vol] 32.8 g/dL Normal 32.0 - 36.0 [facility] Comment on above: Performed By: #### C BCDF #### [address] [address] MCV (RBC) [Entitic vol] 90 fL Normal 80 - 100 [facility] Comment on above: Performed By: #### C BCDF #### [address] [address] Monocytes (Bld) [#/Vol] 0.30 10*3/uL Normal 0.10 - 1.00 [facility] Comment on above: Performed By: #### C BCDF #### [address] [address] Monocytes/100 WBC (Bld) 7.4 % Normal 2.0 - 10.0 [facility] Comment on above: Performed By: #### C BCDF #### [address] [address] Neutrophils (Bld) [#/Vol] 2.16 10*3/uL Normal 1.20 - 7.70 [facility] Comment on above: Result Comment: Perc ent differential counts (%) should be interpreted in the context of the absolute cell counts (cells/L). Performed By: #### C BCDF #### [address] [address] Neutrophils/100 WBC (Bld) 53.2 % Normal 40.0 - 80.0 [facility] Comment on above: Performed By: #### C BCDF #### [address] [address] Platelets (Bld) [#/Vol] 267 10*3/uL Normal 150 - 450 [facility] Comment on above: Performed By: #### C BCDF #### [address] [address] RBC 4.84 x10E12/L Normal 4.00 - 5.20 [facility] Comment on above: Performed By: #### C BCDF #### [address] [address] WBC (Bld) [#/Vol] 4.1 10*3/uL Low 4.4 - 11.3 [facility] Comment on above: Performed By: #### C BCDF #### [address] [address] COMPREHENSIVE PANELon 2022 Albumin [Mass/Vol] 4.4 g/dL Normal 3.4 - 5.0 [facility] Comment on above: Performed By: #### C MP #### [address] [place] [address] ALP [Catalytic activity/Vol] 42 U/L Normal 33 - 110 [facility] Comment on above: Performed By: #### C MP #### [address] [address] ALT [Catalytic activity/Vol] 20 U/L Normal 7 - 45 [facility] Comment on above: Result Comment: Glory ents treated with Sulfasalazine may generate falsely decreased results for ALT. Performed By: #### C MP #### [address] [address] Anion gap [Moles/Vol] 13 mmol/L Normal 10 - 20 [facility] Comment on above: Performed By: #### C MP #### [address] [address] AST [Catalytic activity/Vol] 25 U/L Normal 9 - 39 [facility] Comment on above: Performed By: #### C MP #### [address] [address] Bilirubin [Mass/Vol] 0.6 mg/dL Normal 0.0 - 1.2 [facility] Comment on above: Performed By: #### C MP #### [address] [address] Calcium [Mass/Vol] 9.5 mg/dL Normal 8.6 - 10.3 [facility] Comment on above: Performed By: #### C MP #### [address] [address] Chloride [Moles/Vol] 106 mmol/L Normal 98 - 107 [facility] Comment on above: Performed By: #### C MP #### [address] [address] Creatinine [Mass/Vol] 0.82 mg/dL Normal 0.50 - 1.05 [facility] Comment on above: Performed By: #### C MP #### [address] [address] eGFR FEMALE >90 Normal >90 [facility] Comment on above: Result Comment: CALC ULATIONS OF ESTIMATED GFR ARE PERFORMED USING THE 2020 CKD-EPI STUDY REFIT EQUATION WITHOUT THE RACE VARIABLE FOR THE IDMS-TRACEABLE CREATININE METHODS. https://jasn.asnjournals.org/content//ASN.39654419 88 Performed By: #### C MP #### [address] [address] Glucose [Mass/Vol] 80 mg/dL Normal 74 - 99 [facility] Comment on above: Performed By: #### C MP #### [address] [address] HCO3 (Bld) [Moles/Vol] 25 mmol/L Normal 21 - 32 [facility] Comment on above: Performed By: #### C MP #### [address] [address] Potassium [Moles/Vol] 3.8 mmol/L Normal 3.5 - 5.3 [facility] Comment on above: Performed By: #### C MP #### [address] [address] Protein [Mass/Vol] 7.0 g/dL Normal 6.4 - 8.2 [facility] Comment on above: Performed By: #### C MP #### [address] [address] Sodium [Moles/Vol] 140 mmol/L Normal 136 - 145 [facility] Comment on above: Performed By: #### C MP #### [address] [address] Urea nitrogen [Mass/Vol] 5 mg/dL Low 6 - 23 [facility] Comment on above: Performed By: #### C MP #### [address] [address] HEMOGLOBIN A1Con 04-14-2023 Glucose [Mass/Vol] 88 mg/dL Normal [facility] Comment on above: Performed By: #### H BA1E #### [address] [address] HbA1c (Bld) [Mass fraction] 4.7 % Normal [facility] Comment on above: Result Comment: Diag nosis of Diabetes-Adults Non-Diabetic: < or = 5.6% Increased risk for developing diabetes: 5.7-6.4% Diagnostic of diabetes: > or = 6.5% . Monitoring of Diabetes Age (y) Therapeutic Goal (%) Adults: >18 <7.0 Pediatrics: 13-18 <7.5 7-12 <8.0 0- 6 7.5-8.5 [place] [employer]. Diabetes Care 33(S1), Jul 2009. Performed By: #### H BA1E #### [address] [address] LIPID PANEL (CORONARY RISK 2 )on 04-14-2023 Cholesterol [Mass/Vol] 159 mg/dL Normal 0 - 199 [facility] Comment on above: Result Comment: . AGE [...] dosing. Performed By: #### L IPID #### [address] [address] Cholesterol in HDL [Mass/Vol] 56.0 mg/dL Normal [facility] Comment on above: Result Comment: . AGE VERY LOW LOW NORMAL HIGH 0-19 Y < 35 < 40 40-45 ---- 20-24 Y ---- < 40 >45 ---- >24 Y ---- < 40 40-60 >60 . Performed By: #### L IPID #### [address] [address] Cholesterol in LDL [Mass/Vol] 87 mg/dL Normal 0 - 119 [facility] Comment on above: Result Comment: . NEAR BORD AGE DESIRABLE OPTIMAL HIGH HIGH VERY HIGH 0-19 Y 0 - 109 --- 110-129 >/= 130 ---- 20-24 Y 0 - 119 --- 120-159 >/= 160 ---- >24 Y 0 - 99 100-129 130-159 160-189 >/=190 . Performed By: #### L IPID #### [address] [address] Cholesterol in VLDL [Mass/Vol] 16 mg/dL Normal 0 - 40 [facility] Comment on above: Performed By: #### L IPID #### [address] [address] Cholesterol.total/C holesterol in HDL [Mass ratio] 2.8 {ratio} Normal [facility] Comment on above: Result Comment: REF VALUES DESIRABLE < 3.4 HIGH RISK > 5.0 Performed By: #### L IPID #### [address] [address] NON-HDL CHOLESTEROL 103 mg/dL Normal 0 - 149 [facility] Comment on above: Result Comment: AGE DESIRABLE BORDERLINE HIGH HIGH VERY HIGH 0-19 Y 0 - 119 120 - 144 >/= 145 >/= 160 20-24 Y 0 - 149 150 - 189 >/= 190 ---- >24 Y 30 MG/DL ABOVE LDL CHOLESTEROL GOAL . Performed By: #### L IPID #### [address] [address] Triglyceride [Mass/Vol] 79 mg/dL Normal 0 - 149 [facility] Comment on above: Result Comment: . AGE [...] dosing. Performed By: #### L IPID #### [address] [address] TSH WITH REFLEX TO FREE T4 I F ABNORMALon 04-14-2023 TSH Qn 2.73 m[IU]/L Normal 0.44 - 3.98 [facility] Comment on above: Result Comment: TSH testing is performed using different testing methodology at [facility] than at other [facility]. Direct result comparisons should only be made within the same method. Performed By: #### T HYDS #### [address] [address] CBC AND DIFFERENTIALon 04-13 % AUTOMATED IMMATURE GRAN 0.2 % Normal 0.0 - 0.9 [facility] Comment on above: Result Comment: Tammie ture Granulocyte Count (IG) includes promyelocytes, myelocytes and metamyelocytes but does not include bands. Percent differential counts (%) should be interpreted in the context of the absolute cell counts (cells/L). Performed By: #### C BCDF ####[address] [address] Basophils (Bld) [#/Vol] 0.01 10*3/uL Normal 0.00 - 0.10 [facility] Comment on above: Performed By: #### C BCDF ####[address] [address] Basophils/100 WBC (Bld) 0.2 % Normal 0.0 - 2.0 [facility] Comment on above: Performed By: #### C BCDF ####[address] [address] Eosinophils (Bld) [#/Vol] 0.06 10*3/uL Normal 0.00 - 0.70 [facility] Comment on above: Performed By: #### C BCDF ####[address] [address] Eosinophils/100 WBC (Bld) 1.2 % Normal 0.0 - 6.0 [facility] Comment on above: Performed By: #### C BCDF ####[address] [address] Erythrocyte distribution width (RBC) [Ratio] 11.4 % Low 11.5 - 14.5 [facility] Comment on above: Performed By: #### C BCDF ####[address] [address] Hematocrit (Bld) [Volume fraction] 39.3 % Normal 36.0 - 46.0 [facility] Comment on above: Performed By: #### C BCDF ####[address] [address] Hemoglobin (Bld) [Mass/Vol] 13.4 g/dL Normal 12.0 - 16.0 [facility] Comment on above: Performed By: #### C BCDF ####[address] [address] Lymphocytes (Bld) [#/Vol] 1.39 10*3/uL Normal 1.20 - 4.80 [facility] Comment on above: Performed By: #### C BCDF ####[address] [address] Lymphocytes/100 WBC (Bld) 27.9 % Normal 13.0 - 44.0 [facility] Comment on above: Performed By: #### C BCDF ####[address] [address] MCHC (RBC) [Mass/Vol] 34.1 g/dL Normal 32.0 - 36.0 [facility] Comment on above: Performed By: #### C BCDF ####[address] [address] MCV (RBC) [Entitic vol] 88 fL Normal 80 - 100 [facility] Comment on above: Performed By: #### C BCDF ####[address] [address] Monocytes (Bld) [#/Vol] 0.49 10*3/uL Normal 0.10 - 1.00 [facility] Comment on above: Performed By: #### C BCDF ####[address] [address] Monocytes/100 WBC (Bld) 9.8 % Normal 2.0 - 10.0 [facility] Comment on above: Performed By: #### C BCDF ####[address] [address] Neutrophils (Bld) [#/Vol] 3.03 10*3/uL Normal 1.20 - 7.70 [facility] Comment on above: Result Comment: Perc ent differential counts (%) should be interpreted in the context of the absolute cell counts (cells/L). Performed By: #### C BCDF ####[address] [address] Neutrophils/100 WBC (Bld) 60.7 % Normal 40.0 - 80.0 [facility] Comment on above: Performed By: #### C BCDF ####[address] [address] Platelets (Bld) [#/Vol] 275 10*3/uL Normal 150 - 450 [facility] Comment on above: Performed By: #### C BCDF ####[address] [address] RBC 4.45 x10E12/L Normal 4.00 - 5.20 [facility] Comment on above: Performed By: #### C BCDF ####[address] [address] WBC (Bld) [#/Vol] 5.0 10*3/uL Normal 4.4 - 11.3 [facility] Comment on above: Performed By: #### C BCDF ####[address] [address] COMPREHENSIVE PANELon 2022 Albumin [Mass/Vol] 4.2 g/dL Normal 3.4 - 5.0 [facility] Comment on above: Performed By: #### C MP ####[address] [address] ALP [Catalytic activity/Vol] 40 U/L Normal 33 - 110 [facility] Comment on above: Performed By: #### C MP ####[address] [address] ALT [Catalytic activity/Vol] 12 U/L Normal 7 - 45 [facility] Comment on above: Result Comment: Glory ents treated with Sulfasalazine may generate falsely decreased results for ALT. Performed By: #### C MP ####[address] [address] Anion gap [Moles/Vol] 11 mmol/L Normal 10 - 20 [facility] Comment on above: Performed By: #### C MP ####[address] [address] AST [Catalytic activity/Vol] 17 U/L Normal 9 - 39 [facility] Comment on above: Performed By: #### C MP ####[address] [address] Bilirubin [Mass/Vol] 0.5 mg/dL Normal 0.0 - 1.2 [facility] Comment on above: Performed By: #### C MP ####[address] [address] Calcium [Mass/Vol] 8.9 mg/dL Normal 8.6 - 10.3 [facility] Comment on above: Performed By: #### C MP ####[address] [address] Chloride [Moles/Vol] 106 mmol/L Normal 98 - 107 [facility] Comment on above: Performed By: #### C MP ####[address] [address] Creatinine [Mass/Vol] 0.85 mg/dL Normal 0.50 - 1.05 [facility] Comment on above: Performed By: #### C MP ####[address] [address] eGFR FEMALE >90 Normal >90 [facility] Comment on above: Result Comment: CALC ULATIONS OF ESTIMATED GFR ARE PERFORMED USING THE 2020 CKD-EPI STUDY REFIT EQUATION WITHOUT THE RACE VARIABLE FOR THE IDMS-TRACEABLE CREATININE METHODS. https://jasn.asnjournals.org/content//ASN.63977507 88 Performed By: #### C MP ####[place] [address] Glucose [Mass/Vol] 87 mg/dL Normal 74 - 99 [facility] Comment on above: Performed By: #### C MP ####[place] [id number] HCO3 (Bld) [Moles/Vol] 26 mmol/L Normal 21 - 32 [facility] Comment on above: Performed By: #### C MP ####[place] [id number] Potassium [Moles/Vol] 3.4 mmol/L Low 3.5 - 5.3 [facility] Comment on above: Performed By: #### C MP ####[place] [address] Protein [Mass/Vol] 6.8 g/dL Normal 6.4 - 8.2 [facility] Comment on above: Performed By: #### C MP ####[place] [address] Sodium [Moles/Vol] 140 mmol/L Normal 136 - 145 [facility] Comment on above: Performed By: #### C MP ####[place] [id number] Urea nitrogen [Mass/Vol] 6 mg/dL Normal 6 - 23 [facility] Comment on above: Performed By: #### C MP ####[place] [id number] HCG,URINEon 04-13-2023 Beta HCG ( test) Ql (U) Negative Normal Negative [facility] Comment on above: Performed By: #### H CGU ####[place] [id number] Provider Note - ED v3on 03-24 Provider [...] a day SIGNIFICANT EVENTS: Past Medical History Description:Wells teeth extraction CRITICAL CARE RESULTS: Recent Lab [...] Reference Range: STRAW,YELLOW Appearance, Urine CLEAR Specific [place], Urine 1.010 pH, Urine 7.0 Protein, Urine NEGATIVE Glucose, Urine NEGATIVE Blood, Urine NEGATIVE Ketones, Urine NEGATIVE Bilirubin, Urine NEGATIVE Urobilinogen, Urine <2.0 Nitrite, Urine Negative Leukocyte Esterase, Urine NEGATIVE VITAL SIGNS: T PRBP SpO2O2(LPM) %FiO2 Method 13-Apr-2023 13:54:[id number] 94 13-Apr-2023 13:13:[id number]/74 99 room air, no respiratory support 13-Apr-2023 12:55:[id number]/74 99 room air, no respiratory support [facility] MDM/ED COURSE: Medical Decision Making: Patient appears well and nontoxic. Vital signs within normal limits. Lab work otherwise unremarkable. Urine without acute infection. Patient given 1 L normal saline. Advised on [id number] Motrin and Tylenol. Asked to follow-up with primary care. Stable at time of discharge. Differential Diagnoses Considered: Musculoskeletal pain, UTI, kidney stone Escalation of Care: (more content not included)... Normal [facility] Triage - EDon 04-13-2023 Triage - ED [...] support. Weight: 121.2 pounds. Calculated 55.0 kg. [place] Coma Scale: Best Eye Response: (E4) spontaneous Best Motor Response: (M6) obeys commands Best Verbal Response: (V5) oriented [place] Score: 15 Cough lasting greater than 3 [...] Medical History Reviewedyes Electronic Signatures: Imelda Ramirez (ROXI) (Signed 13-Apr-2023 13:15) Entered: Risk Screens, Pain, Travel History, Chart Review, Scores, Past Medical History Authored: Quick Triage, Risk Screens, Pain, Travel History, Chart Review, Scores, Past Medical History Last Updated: 13-Apr-2023 13:15 by Imelda Ramirez (ROXI) Normal [facility] URINALYSISon 04-13-2023 Appearance (U) CLEAR Normal CLEAR [facility] Comment on above: Performed By: #### U A ####[address] [address] Bilirubin Ql (U) Negative Normal NEGATIVE [facility] Comment on above: Performed By: #### U A ####[address] [address] Color (U) Yellow Normal STRAW,YELLOW [facility] Comment on above: Performed By: #### U A ####[place] [address] Glucose Ql (U) Negative Normal NEGATIVE [facility] Comment on above: Performed By: #### U A ####[place] [address] Hemoglobin Ql (U) Negative Normal NEGATIVE [facility] Comment on above: Performed By: #### U A ####[place] [address] Ketones Ql (U) Negative Normal NEGATIVE [facility] Comment on above: Performed By: #### U A ####[place] [address] Leukocyte esterase Test strip Ql (U) Negative Normal NEGATIVE [facility] Comment on above: Performed By: #### U A ####[place] [address] Nitrite Ql (U) Negative Normal NEGATIVE [facility] Comment on above: Performed By: #### U A ####[place] [address] pH (U) 7.0 [pH] Normal 5.0 - 8.0 [facility] Comment on above: Performed By: #### U A ####[place] [address] Protein Ql (U) Negative Normal NEGATIVE [facility] Comment on above: Performed By: #### U A ####[place] [address] Specific gravity (U) [Rel density] 1.010 Normal 1.005 - 1.035 [facility] Comment on above: Performed By: #### U A ####[place] [address] Urobilinogen (U) [Mass/Vol] mg/dL Normal 0.0 - 1.9 [facility] Comment on above: Performed By: #### U A ####[place] [address] BASIC METABOLIC PANELon 03-24-2022 Creatinine [Mass/Vol] 1.33 mg/dL High 0.50 - 1.05 [facility] Comment on above: Result Comment: Conf irmed by repeat analysis Performed By: #### B MP ####[address] [address] GFR/1.73 sq M.predicted among non-blacks MDRD (S/P/Bld) [Vol rate/Area] 58 mL/min/{1.73_m2} Abnormal >90 [facility] Comment on above: Result Comment: CALC ULATIONS OF ESTIMATED GFR ARE PERFORMED USING THE 2020 CKD-EPI STUDY REFIT EQUATION WITHOUT THE RACE VARIABLE FOR THE IDMS-TRACEABLE CREATININE METHODS. https://jasn.asnjournals.org/content//ASN.61727581 88 Performed By: #### B MP ####[address] [address] Anion gap [Moles/Vol] 8 mmol/L Low 10 - 20 [facility] Comment on above: Performed By: #### B MP ####[address] [address] Calcium [Mass/Vol] 8.0 mg/dL Low 8.6 - 10.3 [facility] Comment on above: Performed By: #### B MP ####[address] [address] Chloride [Moles/Vol] 115 mmol/L High 98 - 107 [facility] Comment on above: Performed By: #### B MP ####[address] [address] Glucose [Mass/Vol] 90 mg/dL Normal 74 - 99 [facility] Comment on above: Performed By: #### B MP ####[address] [address] HCO3 (Bld) [Moles/Vol] 23 mmol/L Normal 21 - 32 [facility] Comment on above: Performed By: #### B MP ####[place] [id number] Potassium [Moles/Vol] 3.9 mmol/L Normal 3.5 - 5.3 [facility] Comment on above: Performed By: #### B MP ####[place] [id number] Sodium [Moles/Vol] 142 mmol/L Normal 136 - 145 [facility] Comment on above: Performed By: #### B MP ####[place] [id number] Urea nitrogen [Mass/Vol] 10 mg/dL Normal 6 - 23 [facility] Comment on above: Performed By: #### B MP ####[place] [id number] CBCon 04-11-2023 Erythrocyte distribution width (RBC) [Ratio] 11.8 % Normal 11.5 - 14.5 [facility] Comment on above: Performed By: #### U ARFX #### [place] [id number] Hematocrit (Bld) [Volume fraction] 34.9 % Low 36.0 - 46.0 [facility] Comment on above: Performed By: #### U ARFX #### [place] [id number] Hemoglobin (Bld) [Mass/Vol] 11.5 g/dL Low 12.0 - 16.0 [facility] Comment on above: Performed By: #### U ARFX #### [place] [id number] MCHC (RBC) [Mass/Vol] 33.0 g/dL Normal 32.0 - 36.0 [facility] Comment on above: Performed By: #### U ARFX #### [place] [id number] MCV (RBC) [Entitic vol] 90 fL Normal 80 - 100 [facility] Comment on above: Performed By: #### U ARFX #### [place] [id number] Platelets (Bld) [#/Vol] 213 10*3/uL Normal 150 - 450 [facility] Comment on above: Performed By: #### U ARFX #### [address] [address] RBC 3.86 x10E12/L Low 4.00 - 5.20 [facility] Comment on above: Performed By: #### U ARFX #### [address] [address] WBC (Bld) [#/Vol] 4.4 10*3/uL Normal 4.4 - 11.3 [facility] Comment on above: Performed By: #### U ARFX #### [address] [address] Discharge [id number] Discharge Profile2 Discharge Orders: Anticipated Discharge Date: Anticipated Discharge [id number] Code Status: Code Status at Discharge: Full Code DNR Order Additional Instructions (peds only): Activity: activity as tolerated. May shower. May drive. Diet: Dietresume normal diet Hospital Course [...] at 11-Apr-2023 09:34:24 Appointments: Follow-Up Appointment 01: Physician/Dept/ServicePri [facility] provider Jordyn Thakur Reason for ReferralPyelonephritis, acute kidney injury Call to Schedule in1 week LocationS [place] Phone [phone] Annamarie will call and make her own appointment. Electronic Signatures: Kusum Joaquin (NURSE SANE) (Signed 11-Apr-2023 10:50) Authored: Discharge Orders, Appointments Bautista Villanueva) (Signed 11-Apr-2023 09:34) Authored: Discharge Orders, Hospital Course (Home Care/Gold Form), Provider FINAL REVIEW of Orders, Appointments, Gold Form - Psychology Fellow Summary Last Updated: 11-Apr-2023 10:50 by Kusum Joaquin (DANIEL) [facility] Order Reconciliationon 04-11 Order Reconciliation Page 1 [...] 1 cap(s) orally once a day Normal [facility] BASIC METABOLIC PANELon 03-23 Anion gap [Moles/Vol] 11 mmol/L Normal 10 - 20 [facility] Comment on above: Performed By: #### B MP ####[address] [address] Calcium [Mass/Vol] 8.4 mg/dL Low 8.6 - 10.3 [facility] Comment on above: Performed By: #### B MP ####[address] [address] Chloride [Moles/Vol] 109 mmol/L High 98 - 107 [facility] Comment on above: Performed By: #### B MP ####[address] [address] Creatinine [Mass/Vol] 2.30 mg/dL High 0.50 - 1.05 [facility] Comment on above: Performed By: #### B MP ####[address] [address] GFR/1.73 sq M.predicted among non-blacks MDRD (S/P/Bld) [Vol rate/Area] 30 mL/min/{1.73_m2} Abnormal >90 [facility] Comment on above: Result Comment: CALC ULATIONS OF ESTIMATED GFR ARE PERFORMED USING THE 2020 CKD-EPI STUDY REFIT EQUATION WITHOUT THE RACE VARIABLE FOR THE IDMS-TRACEABLE CREATININE METHODS. https://jasn.asnjournals.org/content//ASN.10618200 88 Performed By: #### B MP ####[address] [address] Glucose [Mass/Vol] 84 mg/dL Normal 74 - 99 [facility] Comment on above: Performed By: #### B MP ####[address] [address] HCO3 (Bld) [Moles/Vol] 23 mmol/L Normal 21 - 32 [facility] Comment on above: Performed By: #### B MP ####[address] [address] Potassium [Moles/Vol] 3.8 mmol/L Normal 3.5 - 5.3 [facility] Comment on above: Performed By: #### B MP ####[address] [address] Sodium [Moles/Vol] 139 mmol/L Normal 136 - 145 [facility] Comment on above: Performed By: #### B MP ####[address] [address] Urea nitrogen [Mass/Vol] 20 mg/dL Normal 6 - 23 [facility] Comment on above: Performed By: #### B MP ####[address] [address] CBCon 04-10-2023 Erythrocyte distribution width (RBC) [Ratio] 11.9 % Normal 11.5 - 14.5 [facility] Comment on above: Performed By: #### U ARFX #### [address] [address] Hematocrit (Bld) [Volume fraction] 37.4 % Normal 36.0 - 46.0 [facility] Comment on above: Performed By: #### U ARFX #### [address] [address] Hemoglobin (Bld) [Mass/Vol] 12.3 g/dL Normal 12.0 - 16.0 [facility] Comment on above: Performed By: #### U ARFX #### [address] [address] MCHC (RBC) [Mass/Vol] 32.9 g/dL Normal 32.0 - 36.0 [facility] Comment on above: Performed By: #### U ARFX #### [address] [address] MCV (RBC) [Entitic vol] 90 fL Normal 80 - 100 [facility] Comment on above: Performed By: #### U ARFX #### [address] [address] Platelets (Bld) [#/Vol] 239 10*3/uL Normal 150 - 450 [facility] Comment on above: Performed By: #### U ARFX #### [address] [address] RBC 4.16 x10E12/L Normal 4.00 - 5.20 [facility] Comment on above: Performed By: #### U ARFX #### [address] [address] [address] WBC (Bld) [#/Vol] 8.0 10*3/uL Normal 4.4 - 11.3 [facility] Comment on above: Performed By: #### U ARFX #### [address] [address] Daily Progress Note-Medicine on 04-10-2023 Daily Progress Note-Medicine Service: Medicine Subjective Data: LUZ HINOJOSA is a 22 year old Female who is Hospital Day # 2. Patient feeling better no longer nauseated or vomiting. Was able to tolerate diet. Still having some left flank pain. 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 Bautista Villanueva Hospitalist Electronic Signatures: Bautista Villanueva) (Signed 10-Apr-2023 11:04) Authored: Service, Subjective Data, Objective Data, Assessment and Plan, Note Completion Last Updated: 10-Apr-2023 11:04 by Bautista Villanueva) Normal [facility] MAGNESIUMon 04-10-2023 Magnesium [Mass/Vol] 1.72 mg/dL Normal 1.60 - 2.40 [facility] Comment on above: Performed By: #### M G ####[address] [place] [address] Admission Risk Screen - Adul ton 04-09-2023 Admission Risk Screen - Adult Allergies: Allergies: clonidine: Hives/Urticaria Patient Verification: New W ID Band Applied in my Departmentno Type of ID Patient is WearingW wristband, but not applied here Patient Transferred from Other Facility ([facility], [facility],etc)no Patient Identity Verified Bypatient ID Band FULL [...] AlertFor Ebola-like Symptoms: Isolate Patient and Notify Provider/Hide Selector For Contact: Notify Provider/Hide Selector Advance Directive: Advance Directive/DNRno (2) Advance Directive [...] material; verbal instruction Cultural Considerationsnone Developmental Considerationsnone Hinduism Considerationsnone Learning Assessment (Other Learner): Other learner availableno Depression Screen: During the past month, have you often been bothered by feeling down, depressed or hopelessno During the past month, have you often had little interest or pleasure in doing thingsno Have you had any thoughts of harming anyone elseno (1) [place] Suicide: Risk Screen Not Applicable/Able to Answerable to be screened In the Past Month: Have you wished you were or could go to sleep and not wake upno(1) In the Past Month: Have you had any actual thoughts of killing yourself no(1) Lifetime: Have you ever done, started to do, or prepared to do anything to end your lifeno [place] Suicide Risknegative Adult Nutrition Screen: Have you [...] there any (more content not included)... Normal [facility] BASIC METABOLIC PANELon 03-23 Anion gap [Moles/Vol] 14 mmol/L Normal - 20 [facility] Comment on above: Performed By: #### U ARFX #### [address] [address] Calcium [Mass/Vol] 8.1 mg/dL Low 8.6 - 10.3 [facility] Comment on above: Performed By: #### U ARFX #### [address] [address] Chloride [Moles/Vol] 112 mmol/L High 98 - 107 [facility] Comment on above: Performed By: #### U ARFX #### [address] [address] Creatinine [Mass/Vol] 2.16 mg/dL High 0.50 - 1.05 [facility] Comment on above: Performed By: #### U ARFX #### [address] [address] GFR/1.73 sq M.predicted among non-blacks MDRD (S/P/Bld) [Vol rate/Area] 32 mL/min/{1.73_m2} Abnormal >90 [facility] Comment on above: Result Comment: CALC ULATIONS OF ESTIMATED GFR ARE PERFORMED USING THE 2020 CKD-EPI STUDY REFIT EQUATION WITHOUT THE RACE VARIABLE FOR THE IDMS-TRACEABLE CREATININE METHODS. https://jasn.asnjournals.org/content//ASN.90864980 88 Performed By: #### U ARFX #### [address] [address] Glucose [Mass/Vol] 74 mg/dL Normal 74 - 99 [facility] Comment on above: Performed By: #### U ARFX #### [address] [address] HCO3 (Bld) [Moles/Vol] 19 mmol/L Low 21 - 32 [facility] Comment on above: Performed By: #### U ARFX #### [address] [address] Potassium [Moles/Vol] 3.9 mmol/L Normal 3.5 - 5.3 [facility] Comment on above: Performed By: #### U ARFX #### [address] [address] Sodium [Moles/Vol] 141 mmol/L Normal 136 - 145 [facility] Comment on above: Performed By: #### U ARFX #### [address] [address] Urea nitrogen [Mass/Vol] 19 mg/dL Normal 6 - 23 [facility] Comment on above: Performed By: #### U ARFX #### [address] [address] Anion gap [Moles/Vol] 14 mmol/L Normal 10 - 20 [facility] Comment on above: Performed By: #### B MP ####[address] [address] Calcium [Mass/Vol] 9.5 mg/dL Normal 8.6 - 10.3 [facility] Comment on above: Performed By: #### B MP ####[address] [address] Chloride [Moles/Vol] 107 mmol/L Normal 98 - 107 [facility] Comment on above: Performed By: #### B MP ####[address] [address] Creatinine [Mass/Vol] 2.20 mg/dL High 0.50 - 1.05 [facility] Comment on above: Performed By: #### B MP ####[address] [address] GFR/1.73 sq M.predicted among non-blacks MDRD (S/P/Bld) [Vol rate/Area] 32 mL/min/{1.73_m2} Abnormal >90 [facility] Comment on above: Result Comment: CALC ULATIONS OF ESTIMATED GFR ARE PERFORMED USING THE 2020 CKD-EPI STUDY REFIT EQUATION WITHOUT THE RACE VARIABLE FOR THE IDMS-TRACEABLE CREATININE METHODS. https://jasn.asnjournals.org/content/early/ASN.16580044 88 Performed By: #### B MP ####[address] [address] Glucose [Mass/Vol] 91 mg/dL Normal 74 - 99 [facility] Comment on above: Performed By: #### B MP ####[address] [address] HCO3 (Bld) [Moles/Vol] 23 mmol/L Normal 21 - 32 [facility] Comment on above: Performed By: #### B MP ####[address] [address] Potassium [Moles/Vol] 3.7 mmol/L Normal 3.5 - 5.3 [facility] Comment on above: Performed By: #### B MP ####[address] [address] Sodium [Moles/Vol] 140 mmol/L Normal 136 - 145 [facility] Comment on above: Performed By: #### B MP ####[address] [address] Urea nitrogen [Mass/Vol] 20 mg/dL Normal 6 - 23 [facility] Comment on above: Performed By: #### B MP ####[address] [address] BLOOD CULTURE, BACTERIALon 0 04-09-2023 BLOOD CULTURE, BACTERIAL PATIENT: LUZ HINOJOSA LOCATION: [address]#: [id number] : [birth year] AGE: SEX: F ORDERED BY: ALIE RODRIGUEZ SOURCE: Blood COLLECTED: 04/09/23 14:05 ANTIBIOTICS AT IZABEL.: RECEIVED : 04/10/23 01:43 SITE: R E S U L T S BLOOD CULTURE, BACTERIAL FINAL 04/14/23 05:42 No Growth at 1 days No Growth at 2 days No Growth at 3 days NO GROWTH at 4 days - FINAL REPORT Normal [facility] Comment on above: Performed By: #### B LDC ####[id number] [place] [address] BLOOD CULTURE, BACTERIAL PATIENT: LUZ HINOJOSA LOCATION: [address]#: [id number] : [birth year] AGE: SEX: F ORDERED BY: ALIE RODRIGUEZ SOURCE: Blood COLLECTED: 04/09/23 14:05 ANTIBIOTICS AT IZABEL.: RECEIVED : 04/10/23 01:45 SITE: ANTECUBITAL ANTECUBITAL R E S U L T S BLOOD CULTURE, BACTERIAL FINAL 04/14/23 05:42 No Growth at 1 days No Growth at 2 days No Growth at 3 days NO GROWTH at 4 days - FINAL REPORT Normal [facility] Comment on above: Performed By: #### B LDC ####[id number] [place] [address] CBC AND DIFFERENTIALon 04-09 % AUTOMATED IMMATURE GRAN 0.2 % Normal 0.0 - 0.9 [facility] Comment on above: Result Comment: Tammie ture Granulocyte Count (IG) includes promyelocytes, myelocytes and metamyelocytes but does not include bands. Percent differential counts (%) should be interpreted in the context of the absolute cell counts (cells/L). Performed By: #### C BCDF #### [address] [address] Basophils (Bld) [#/Vol] 0.02 10*3/uL Normal 0.00 - 0.10 [facility] Comment on above: Performed By: #### C BCDF #### [address] [address] Basophils/100 WBC (Bld) 0.2 % Normal 0.0 - 2.0 [facility] Comment on above: Performed By: #### C BCDF #### [address] [address] Eosinophils (Bld) [#/Vol] 0.02 10*3/uL Normal 0.00 - 0.70 [facility] Comment on above: Performed By: #### C BCDF #### [address] [address] Eosinophils/100 WBC (Bld) 0.2 % Normal 0.0 - 6.0 [facility] Comment on above: Performed By: #### C BCDF #### [address] [address] Erythrocyte distribution width (RBC) [Ratio] 11.7 % Normal 11.5 - 14.5 [facility] Comment on above: Performed By: #### C BCDF #### [address] [address] Hematocrit (Bld) [Volume fraction] 42.9 % Normal 36.0 - 46.0 [facility] Comment on above: Performed By: #### C BCDF #### [address] [address] Hemoglobin (Bld) [Mass/Vol] 14.3 g/dL Normal 12.0 - 16.0 [facility] Comment on above: Performed By: #### C BCDF #### [address] [address] Lymphocytes (Bld) [#/Vol] 0.91 10*3/uL Low 1.20 - 4.80 [facility] Comment on above: Performed By: #### C BCDF #### [address] [address] Lymphocytes/100 WBC (Bld) 10.4 % Normal 13.0 - 44.0 [facility] Comment on above: Performed By: #### C BCDF #### [address] [address] MCHC (RBC) [Mass/Vol] 33.3 g/dL Normal 32.0 - 36.0 [facility] Comment on above: Performed By: #### C BCDF #### [address] [address] MCV (RBC) [Entitic vol] 89 fL Normal 80 - 100 [facility] Comment on above: Performed By: #### C BCDF #### [address] [address] Monocytes (Bld) [#/Vol] 1.12 10*3/uL High 0.10 - 1.00 [facility] Comment on above: Performed By: #### C BCDF #### [address] [address] Monocytes/100 WBC (Bld) 12.8 % Normal 2.0 - 10.0 [facility] Comment on above: Performed By: #### C BCDF #### [address] [address] Neutrophils (Bld) [#/Vol] 6.64 10*3/uL Normal 1.20 - 7.70 [facility] Comment on above: Result Comment: Perc ent differential counts (%) should be interpreted in the context of the absolute cell counts (cells/L). Performed By: #### C BCDF #### [address] [address] Neutrophils/100 WBC (Bld) 76.2 % Normal 40.0 - 80.0 [facility] Comment on above: Performed By: #### C BCDF #### [address] [address] Platelets (Bld) [#/Vol] 283 10*3/uL Normal 150 - 450 [facility] Comment on above: Performed By: #### C BCDF #### [address] [address] RBC 4.85 x10E12/L Normal 4.00 - 5.20 [facility] Comment on above: Performed By: #### C BCDF #### [address] [place] [address] WBC (Bld) [#/Vol] 8.7 10*3/uL Normal 4.4 - 11.3 [facility] Comment on above: Performed By: #### C BCDF #### [address] [address] [address] ABDOMEN AND PELVIS W IV C [facility] 04-09-2023 CT ABDOMEN AND PELVIS W IV CONTRAST Patient Name: LUZ HINOJOSA STUDY: CT ABDOMEN AND PELVIS W IV CONTRAST; 04/09/2023 12:57 pm INDICATION: Periumbilical and RLQ abdominal pain . COMPARISON: January 09, 2020 renal ultrasound ACCESSION NUMBER(S): [id number] ORDERING CLINICIAN: ALIE RODRIGUEZ TECHNIQUE: CT of [...] fluid. Electronically signed by: KIKI ACOSTA MD [facility] Discharge Planning [id number] 04-09-2023 Discharge Planning Note2 Discharge Planning: Needs Prior to Discharge (ex. Home Care Orders, IV/O2 prescriptions) None Discharge Barriersnone Planned Dispositionhome Discharge Destinationhome AMPAC < 20no Patient/Transitional Living Specialist Stated Goalhome Anticipated Discharge [id number] Discharge Planning 04/10/23 0810- Care Transition Note: [...] make her primary contact. Boyfriend Sony Munoz [phone]. Will notify registration of same. Desires to keep her mom as second. AMPAC per nursing is 24, no falls or use of assistive devices. No issues in mobility. 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 Will need work excuse. Plan to d/c home with no other anticipated needs. CT will follow. REBECCA Doshi TCC ([place]) Assessment: Discharge Planning Assessment [id number] Discharge Planning Assessment Completed byREBECCA Doshi TCC Primary Contact Name and NumberBoyfriend Sony Munoz [phone] Mom Kiera [phone] Prior Level of FunctioningIndependent in all ADL's and IADL's, works, drives Lives Withsignificant other(1) Living Arrangementsapartment(1) Stated Reason for Admissionmy stomach hurt, I started puking this morning(1) Arrived Fromemergency department (1) [facility]i [facility]/ Injury/ Need Assist with Ambulationdenies Home Care Agency/Support ServicesNone Diabetic/Supplies NeededNone Resource/Environmental Concernsnone(1) [facility] Services Anticipated at Transitionnone(1) PCP Last Date Seen03/06/23 Anticipated Changes Related to Illnessnone Equipment Needed After Dischargenone Anticipated Discharge Facility/Level of Care Needs.Home Social Determinants of Health IdentifiedNone Transportation Home Who/Howmom or boyfriend Medication Adherence/Afford/Obtainye s O2 LPMNone Electronic Signatures: Itzel Coy (RN) (Signed 09-Apr-2023 16:13) Authored: Discharge Planning, Assessment Mena Samson (RN) (Signed 10-Apr-2023 08:19) Authored: Discharge Planning, Assessment Last Updated: 10-Apr-2023 08:19 by Mena Samson (RN) References: 1. Data Referenced From Patient Profile - Adult v2 09-Apr-2023 15:54 Normal [facility] HCG,URINEon 04-09-2023 Beta HCG ( test) Ql (U) Negative Normal Negative [facility] Comment on above: Performed By: #### H CGU ####[place] [address] HEPATIC FUNCTION PANELon Albumin [Mass/Vol] 4.6 g/dL Normal 3.4 - 5.0 [facility] Comment on above: Performed By: #### U ARFX #### [place] [address] ALP [Catalytic activity/Vol] 48 U/L Normal 33 - 110 [facility] Comment on above: Performed By: #### U ARFX #### [place] [address] ALT [Catalytic activity/Vol] 8 U/L Normal 7 - 45 [facility] Comment on above: Result Comment: Glory ents treated with Sulfasalazine may generate falsely decreased results for ALT. Performed By: #### U ARFX #### [place] [address] AST [Catalytic activity/Vol] 16 U/L Normal 9 - 39 [facility] Comment on above: Performed By: #### U ARFX #### [address] [address] Bilirubin [Mass/Vol] 1.1 mg/dL Normal 0.0 - 1.2 [facility] Comment on above: Performed By: #### U ARFX #### [address] [address] Bilirubin.indirect [Mass/Vol] 0.2 mg/dL Normal 0.0 - 0.3 [facility] Comment on above: Performed By: #### U ARFX #### [address] [address] Protein [Mass/Vol] 7.5 g/dL Normal 6.4 - 8.2 [facility] Comment on above: Performed By: #### U ARFX #### [address] [address] LACTATEon 04-09-2023 Lactate [Moles/Vol] 0.8 mmol/L Normal 0.4 - 2.0 [facility] Comment on above: Result Comment: Yoko puncture immediately after or during the administration of Metamizole may lead to falsely low results. Testing should be performed immediately prior to Metamizole dosing. Performed By: #### L ACT #### [address] [address] LIPASEon 04-09-2023 Lipase [Catalytic activity/Vol] 31 U/L Normal 9 - 82 [facility] Comment on above: Result Comment: Yoko puncture immediately after or during the administration of Metamizole may lead to falsely low results. Testing should be performed immediately prior to Metamizole dosing. D-uudtdb-q-benzoquinone imine (metabolite of Acetaminophen) will generate erroneously low results in samples for patients that have taken toxic doses of acetaminophen. Performed By: #### L IPAS #### [address] [address] Order Reconciliationon 04-09 Order Reconciliation Page 1 [...] capsule 1 cap(s) orally once a day [id number] AM Pantoprazole Enteric Coated Tablet (PROTONIX)DOSE = [...] Every 8 Hours and as Needed Normal [facility] Patient Profile - Adult v2on 04-09-2023 Patient Profile - Adult v2 Profile: Initial Info: How to be AddressedBrianna Spoken Language PreferredEnglish (1) Source of Informationpatient Stated Reason for Admissionmy stomach hurt, I started puking this morning Wants Family/Rep Notified of Admissionn/a; family present Notify PCPnotify PCP [facility] Internal Medicine Jordyn CORRIGAN Informed of Patient Visiting Rightsyes Arrived Fromemergency department Patient Belongingsremains with patient Patient Belongings Remaining with Patientclothing; cell phone/electronics; purse/wallet; jewelry Medications Brought to Hospitalno General Health: Weight in kg54 kilogram(s)(2) Weight in cll507 pound(s) Weight Methodactual (measured) Scale Typebed Height [...] need to know to best care for laura Substance: Smoking Statusheavy user (uses >30 cig/day, [...] clonidine: Drug, Hives/Urticaria, Active Electronic Signatures: Itzel Coy (ROXI) (Signed 09-Apr-2023 16:01) Authored: Initial Info, General Health, RSP Based Care, Substance, Health Mgmt, Relationship/Environ, Additional Information Last Updated: 09-Apr-2023 16:01 by Itzel Coy (ROXI) References: 1. Data Referenced From Triage - ED 06-Nov-2022 18:48 2. Data Referenced From 1. Vital Signs 09-Apr-2023 10:40 3. Data Referenced From History and Physical 09-Apr-2023 15:05 Normal [facility] Provider Note - ED v3on 09- Provider [...] made to minimize errors. Minor errors in cement handler may be present. Please call if questions.. [...] a day SIGNIFICANT EVENTS: Past Medical History Description:Wells teeth extraction CRITICAL CARE RESULTS: Recent Lab Results: I have reviewed these laboratory results: Basic Metabolic Panel Trending View [id number] 13:30:00 09-Apr-2023 11:05:00 Glucose, Serum74 91 NA141 140 K3.9 3.7 CL112 H 107 Bicarbonate, Serum19 L 23 Anion Gap, Serum14 14 BUN19 20 CREAT2.16 H 2.20 H GFR [id number] A 32 A Calcium, Serum8.1 L 9.5 [...] Reference Range: STRAW,YELLOW Appearance, Urine HAZY Specific [place], Urine 1.006 pH, Urine 6.0 Protein, Urine NEGATIVE Glucose, (more content not included)... Normal [facility] Risk Screen - Adult Emergenc yon 04-09-2023 Risk Screen - Adult Emergency Preferred Language: Preferred Language: Preferred Language for Discussing Health Care (patient/designee)[place] Patient Preferred Pharmacy: Patient Preferred Pharmacy Statement: [...] instruction; written material Cultural Considerationsnone Developmental Considerationsnone Hinduism Considerationsnone Learning Assessment (Other Learner): Learning Assessment [...] an injured patient at a Trauma Center ([facility]/[place]/ [place]): no Electronic Signatures: Imelda Ramirez (ROXI) (Signed 09-Apr-2023 10:53) Authored: Preferred Language, Patient Preferred Pharmacy, Advanced Directives, Family Violence Adult, Learning Assessment (Patient), Learning Assessment (Other Learner), Pressure Injury/TB/Substance, Pressure Injury, CAGE Last Updated: 09-Apr-2023 10:53 by Imelda Ramirez (RN) [facility] Triage - EDon 04-09-2023 Triage - ED [...] support. Weight: 119.0 pounds. Calculated 54.0 kg. Justus Coma Scale: Best Eye Response: [...] Reviewedyes Electronic Signatures: Imelda Ramirez (RN) (Signed 09-Apr-2023 10:52) Entered: Risk Screens, Pain, Travel History, Chart Review, Scores, Past Medical History Authored: Quick Triage, Risk Screens, Pain, Travel History, Chart Review, Scores, Past Medical History Last Updated: 09-Apr-2023 10:52 by Imelda Ramirez (ROXI) Normal [facility] UA MICROSCOPICon 04-09-2023 BACTERIA 2+ /HPF Abnormal [facility] Comment on above: Performed By: #### U AMIC ####[place] [address] RBC 2 /HPF Normal 0-5 [facility] Comment on above: Performed By: #### U AMIC ####[place] [address] SQUAMOUS EPITH. CELLS 19 /HPF Normal [facility] Comment on above: Performed By: #### U AMIC ####[place] [address] WBC 9 /HPF Abnormal 0-5 [facility] Comment on above: Performed By: #### U AMIC ####[place] [address] URINALYSIS WITH CULTURE IF I NDICATEDon 04-09-2023 Appearance (U) HAZY Normal CLEAR [facility] Comment on above: Performed By: #### U ARFX #### [place] [address] Bilirubin Ql (U) Negative Normal NEGATIVE [facility] Comment on above: Performed By: #### U ARFX #### [place] [address] Color (U) Rox Normal STRAW,YELLOW [facility] Comment on above: Performed By: #### U ARFX #### [place] [address] Glucose Ql (U) Negative Normal NEGATIVE [facility] Comment on above: Performed By: #### U ARFX #### [place] [address] Hemoglobin Ql (U) MODERATE (2+) Abnormal NEGATIVE [facility] Comment on above: Performed By: #### U ARFX #### [place] [address] Ketones Ql (U) Negative Normal NEGATIVE [facility] Comment on above: Performed By: #### U ARFX #### [place] [address] Leukocyte esterase Test strip Ql (U) Negative Normal NEGATIVE [facility] Comment on above: Performed By: #### U ARFX #### [place] [address] Nitrite Ql (U) Positive Abnormal NEGATIVE [facility] Comment on above: Performed By: #### U ARFX #### [place] [address] pH (U) 6.0 [pH] Normal 5.0 - 8.0 [facility] Comment on above: Performed By: #### U ARFX #### [place] [address] Protein Ql (U) Negative Normal NEGATIVE [facility] Comment on above: Performed By: #### U ARFX #### [place] [address] Specific gravity (U) [Rel density] 1.006 Normal 1.005 - 1.035 [facility] Comment on above: Performed By: #### U ARFX #### [place] [address] Urobilinogen (U) [Mass/Vol] mg/dL Normal 0.0 - 1.9 [facility] Comment on above: Performed By: #### U ARFX #### [facility] [address] [place] [address] URINE CULTURE,BACTERIALon URINE CULTURE,BACTERIAL PATIENT: LUZ HINOJOSA LOCATION: [address]#: [id number] : [birth year] AGE: SEX: F ORDERED BY: ALIE RODRIGUEZ SOURCE: URINE COLLECTED: 04/09/23 11:05 ANTIBIOTICS AT IZABEL.: RECEIVED : 04/09/23 19:53 SITE: R E S U L T S URINE CULTURE,BACTERIAL FINAL 04/10/23 13:17 NO SIGNIFICANT GROWTH. Normal [facility] Comment on above: Performed By: #### U RINC ####[id number] [place] [address] Provider Note - ED v3on 10-21 Provider [...] and vomiting SIGNIFICANT EVENTS: Past Medical History Description:Wells teeth extraction MDM MDM/ED COURSE: PMH: Reviewed [...] critically ill patient: no Electronic Signatures: Alie FlorENCOM[facility]) (Signed 06-Nov-2022 19:03) Authored: HPI, PMH, MDM/ED Course, Clinical Impression, Attestation, Chart Review, Scores Last Updated: 06-Nov-2022 19:03 by Alie Flor ([facility]) References: 1. Data Referenced From Triage - ED 06-Nov-2022 18:48 [facility] Risk Screen - Adult Emergenc yon 11-06-2022 Risk Screen - Adult Emergency Preferred Language: Preferred Language: Preferred Language for Discussing Health Care (patient/designee)[place] Patient Preferred Pharmacy: Patient Preferred Pharmacy Statement: [...] Learning Preferencesverbal instruction Cultural Considerationsnone Developmental Considerationsnone Hinduism Considerationsnone Learning Assessment (Other Learner): Learning Assessment [...] an injured patient at a Trauma Center ([facility]/[place]/ [place]): no Electronic Signatures: Vivian Allred (ROXI) (Signed 06-Nov-2022 18:52) Authored: Preferred Language, Patient Preferred Pharmacy, Advanced Directives, Family Violence Adult, Learning Assessment (Patient), Learning Assessment (Other Learner), Pressure Injury/TB/Substance, Pressure Injury, CAGE Last Updated: 06-Nov-2022 18:52 by Vivian Allred (RN) Normal [facility] Triage - EDon 11-06-2022 Triage [...] Accompanied By: self Language: Spoken Language Preferred: [place] Reading Language Preferred: [place] Present on Arrival: Device Present on Arrival [...] BMI (kg/m2): 19.994 Calculated BSA (m2) 1.58 [place] Coma Scale: Best Eye Response: (E4) spontaneous Best Motor Response: (M6) obeys commands Best Verbal Response: (V5) oriented London Score: 15 Allergies: yes Last menstrual period: unknown 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: 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 Patient has homicidal thoughts: no [...] Medical History Reviewedyes Electronic Signatures: Vivian Allred (RN) (Signed 06-Nov-2022 18:51) Entered: Risk Screens, Pain, Arrival, ABCD, Travel History, Chart Review, Scores, Past Medical History Authored: Quick Triage, Risk Screens, Pain, Arrival, ABCD, Travel History, Chart Review, Scores, Past Medical History Last Updated: 06-Nov-2022 18:51 by Vivian Allred (RN) Normal [facility] BASIC METABOLIC PANELon 02-0 Anion gap [Moles/Vol] 11 mmol/L Normal 10 - 20 [facility] Comment on above: Performed By: #### B MP #### [address] [address] Calcium [Mass/Vol] 9.0 mg/dL Normal 8.6 - 10.3 [facility] Comment on above: Performed By: #### B MP #### [address] [address] Chloride [Moles/Vol] 105 mmol/L Normal 98 - 107 [facility] Comment on above: Performed By: #### B MP #### [address] [address] Creatinine [Mass/Vol] 0.73 mg/dL Normal 0.50 - 1.05 [facility] Comment on above: Performed By: #### B MP #### [address] [address] eGFR FEMALE >90 Normal >90 [facility] Comment on above: Result Comment: CALC ULATIONS OF ESTIMATED GFR ARE PERFORMED USING THE 2020 CKD-EPI STUDY REFIT EQUATION WITHOUT THE RACE VARIABLE FOR THE IDMS-TRACEABLE CREATININE METHODS. https://jasn.asnjournals.org/content//ASN.97090296 88 Performed By: #### B MP #### [place] [address] Glucose [Mass/Vol] 78 mg/dL Normal 74 - 99 [facility] Comment on above: Performed By: #### B MP #### [place] [id number] HCO3 (Bld) [Moles/Vol] 27 mmol/L Normal 21 - 32 [facility] Comment on above: Performed By: #### B MP #### [place] [id number] Potassium [Moles/Vol] 3.9 mmol/L Normal 3.5 - 5.3 [facility] Comment on above: Performed By: #### B MP #### [place] [id number] Sodium [Moles/Vol] 139 mmol/L Normal 136 - 145 [facility] Comment on above: Performed By: #### B MP #### [place] [id number] Urea nitrogen [Mass/Vol] 11 mg/dL Normal 6 - 23 [facility] Comment on above: Performed By: #### B MP #### [place] [id number] CBC AND DIFFERENTIALon 08-24 % AUTOMATED IMMATURE GRAN 0.0 % Normal 0.0 - 0.9 [facility] Comment on above: Result Comment: Tammie ture Granulocyte Count (IG) includes promyelocytes, myelocytes and metamyelocytes but does not include bands. Percent differential counts (%) should be interpreted in the context of the absolute cell counts (cells/L). Performed By: #### U ARFX #### [address] [address] Basophils (Bld) [#/Vol] 0.04 10*3/uL Normal 0.00 - 0.10 [facility] Comment on above: Performed By: #### U ARFX #### [address] [address] Basophils/100 WBC (Bld) 0.5 % Normal 0.0 - 2.0 [facility] Comment on above: Performed By: #### U ARFX #### [address] [address] Eosinophils (Bld) [#/Vol] 0.08 10*3/uL Normal 0.00 - 0.70 [facility] Comment on above: Performed By: #### U ARFX #### [address] [address] Eosinophils/100 WBC (Bld) 1.1 % Normal 0.0 - 6.0 [facility] Comment on above: Performed By: #### U ARFX #### [address] [address] Erythrocyte distribution width (RBC) [Ratio] 11.3 % Low 11.5 - 14.5 [facility] Comment on above: Performed By: #### U ARFX #### [address] [address] Hematocrit (Bld) [Volume fraction] 41.9 % Normal 36.0 - 46.0 [facility] Comment on above: Performed By: #### U ARFX #### [address] [address] Hemoglobin (Bld) [Mass/Vol] 14.1 g/dL Normal 12.0 - 16.0 [facility] Comment on above: Performed By: #### U ARFX #### [address] [address] Lymphocytes (Bld) [#/Vol] 2.21 10*3/uL Normal 1.20 - 4.80 [facility] Comment on above: Performed By: #### U ARFX #### [address] [address] Lymphocytes/100 WBC (Bld) 29.6 % Normal 13.0 - 44.0 [facility] Comment on above: Performed By: #### U ARFX #### [address] [address] MCHC (RBC) [Mass/Vol] 33.7 g/dL Normal 32.0 - 36.0 [facility] Comment on above: Performed By: #### U ARFX #### [address] [address] MCV (RBC) [Entitic vol] 88 fL Normal 80 - 100 [facility] Comment on above: Performed By: #### U ARFX #### [address] [address] Monocytes (Bld) [#/Vol] 0.61 10*3/uL Normal 0.10 - 1.00 [facility] Comment on above: Performed By: #### U ARFX #### [address] [address] Monocytes/100 WBC (Bld) 8.2 % Normal 2.0 - 10.0 [facility] Comment on above: Performed By: #### U ARFX #### [address] [address] Neutrophils (Bld) [#/Vol] 4.53 10*3/uL Normal 1.20 - 7.70 [facility] Comment on above: Result Comment: Perc ent differential counts (%) should be interpreted in the context of the absolute cell counts (cells/L). Performed By: #### U ARFX #### [address] [address] Neutrophils/100 WBC (Bld) 60.6 % Normal 40.0 - 80.0 [facility] Comment on above: Performed By: #### U ARFX #### [address] [address] Platelets (Bld) [#/Vol] 286 10*3/uL Normal 150 - 450 [facility] Comment on above: Performed By: #### U ARFX #### [address] [address] RBC 4.79 x10E12/L Normal 4.00 - 5.20 [facility] Comment on above: Performed By: #### U ARFX #### [address] [address] WBC (Bld) [#/Vol] 7.5 10*3/uL Normal 4.4 - 11.3 [facility] Comment on above: Performed By: #### U ARFX #### [address] [address] HCG,BETA-QUANTITATIVEon HCG,BETA-QUANTITATI VE <2 Normal [facility] Comment on above: Result Comment: . Total HCG measurement is performed using the Tram Arline Access Immunoassay which detects intact HCG and free beta HCG subunit. . This test is not indicated for use as a tumor marker. HCG testing is performed using a different test methodology at [facility] than other [facility]. Direct result comparison should only be made within the same method. REF VALUES NON FEMALE <5 MALES <5 Performed By: #### H CGQU #### [address] [address] HCG,URINEon 08-24-2022 Beta HCG ( test) Ql (U) Negative Normal Negative [facility] Comment on above: Performed By: #### H CGU #### [address] [address] Provider Note - ED v3on Provider Note [...] (V49.89) (Z78.9) Surgical History Problems History of Wells tooth extraction x 4 extracted 4 years [...] a day SIGNIFICANT EVENTS: Past Medical History Description:Wells teeth extraction REVIEW OF SYSTEMS CONSTITUTIONAL: Negative [...] and affect. N (more content not included)... [facility] Risk Screen - Adult Emergenc yon 08-24-2022 Risk Screen - Adult Emergency Preferred Language: Preferred Language: Preferred Language for Discussing Health Care (patient/designee)[place] Patient Preferred Pharmacy: Patient Preferred Pharmacy Statement: [...] instruction; written material Cultural Considerationsnone Developmental Considerationsnone Hinduism Considerationsnone Learning Assessment (Other Learner): Learning Assessment [...] an injured patient at a Trauma Center ([facility]/[place]/ [place]): no Electronic Signatures: Ruthann Aguilera (ROXI) (Signed 24-Aug-2022 16:09) Authored: Preferred Language, Patient Preferred Pharmacy, Advanced Directives, Family Violence Adult, Learning Assessment (Patient), Learning Assessment (Other Learner), Pressure Injury/TB/Substance, Pressure Injury, CAGE Last Updated: 24-Aug-2022 16:09 by Ruthann Aguilera (ROXI) [facility] Triage - EDon 08-24-2022 Triage - ED [...] BMI (kg/m2): 19.994 Calculated BSA (m2) 1.58 [place] Coma Scale: Best Eye Response: (E4) spontaneous Best Motor Response: (M6) obeys commands Best Verbal Response: (V5) oriented Justus Score: 15 Justus Assessment Qualifiers: patient not sedated/intubated Cough lasting [...] patient cognitively impaired not cognitively impaired Interventions: Corrina Fall Interventions: LOW INTERVENTIONS: *patient oriented to [...] Past Medical History: Past Medical History Reviewedyes Wells teeth extraction: Past Medical History, Active Electronic Signatures: Johnny Potter (EMT-P) (Signed 24-Aug-2022 14:18) Entered: Risk Screens, Pain, Travel History, Chart Review, Scores Authored: Quick Triage, Risk Screens, Pain, Travel History, Chart Review, Scores Ruthann Aguilera (RN) (Signed 24-Aug-2022 16:07) Authored: Quick Triage, Pain, Chart Review, Past Medical History Last Updated: 24-Aug-2022 16:07 by Ruthann Aguilera (RN) Normal [facility] UA MICROSCOPICon 08-24-2022 BACTERIA 1+ /HPF Abnormal [facility] Comment on above: Performed By: #### U AMIC ####[place] [address] RBC 83 /HPF Abnormal 0-5 [facility] Comment on above: Performed By: #### U AMIC ####[place] [address] SQUAMOUS EPITH. CELLS 11 /HPF Normal [facility] Comment on above: Performed By: #### U AMIC ####[place] [address] WBC 7 /HPF Abnormal 0-5 [facility] Comment on above: Performed By: #### U AMIC ####[place] [address] URINALYSISon 08-24-2022 Appearance (U) HAZY Normal CLEAR [facility] Comment on above: Performed By: #### U ARFX #### [place] [address] Bilirubin Ql (U) Negative Normal NEGATIVE [facility] Comment on above: Performed By: #### U ARFX #### [place] [address] Color (U) Yellow Normal STRAW,YELLOW [facility] Comment on above: Performed By: #### U ARFX #### [place] [address] Glucose Ql (U) Negative Normal NEGATIVE [facility] Comment on above: Performed By: #### U ARFX #### [place] [address] Hemoglobin Ql (U) LARGE(3+) Abnormal NEGATIVE [facility] Comment on above: Performed By: #### U ARFX #### [place] [address] Ketones Ql (U) Negative Normal NEGATIVE [facility] Comment on above: Performed By: #### U ARFX #### [place] [address] Leukocyte esterase Test strip Ql (U) Negative Normal NEGATIVE [facility] Comment on above: Performed By: #### U ARFX #### [place] [address] Nitrite Ql (U) Negative Normal NEGATIVE [facility] Comment on above: Performed By: #### U ARFX #### [place] [address] pH (U) 7.0 [pH] Normal 5.0 - 8.0 [facility] Comment on above: Performed By: #### U ARFX #### [place] [address] Protein Ql (U) 30(1+) Abnormal NEGATIVE [facility] Comment on above: Performed By: #### U ARFX #### [place] [address] Specific gravity (U) [Rel density] 1.018 Normal 1.005 - 1.035 [facility] Comment on above: Performed By: #### U ARFX #### [place] [address] Urobilinogen (U) [Mass/Vol] mg/dL Normal 0.0 - 1.9 [facility] Comment on above: Performed By: #### U ARFX #### [facility] [address] [place] [address] Office Visit (Internal Medic ine)on 08-03-2022 Follow-up visit Diagnoses/Problems Assessed Anxiety (300.00) (F41.9) Weight gain (783.1) (R63.5) Abnormal menses (626.9) (N92.6) Depression screening negative (V79.0) (Z13.31) Orders Abnormal menses, Night sweats T3 - Free Triiodothyronine, Serum; Status:Active; Requested for:[id number]; Perform:Lab Services - Lab To Draw (Blood Test); Due:13Dec2022;Ordered; For:Abnormal menses, Night sweats; Ordered By:Kemi Echevarria; T4 - Free Thyroxine, Serum; Status:Active; Requested for:[id number]; Perform:Lab Services - Lab To Draw (Blood Test); Due:13Dec2022;Ordered; For:Abnormal menses, Night sweats; Ordered By:Kemi Echevarria; TSH - Thyroid Stimulating Hormone, Serum; Status:Active; Requested for:14Sep2022; Perform:Lab Services - Lab To Draw (Blood Test); Due:13Dec2022;Ordered; For:Abnormal menses, Night sweats; Ordered By:Kemi Echevarria; Generalized anxiety disorder with panic attacks Renew: PARoxetine HCl - 40 MG Oral Tablet; TAKE 1 TABLET DAILY Rx By: Kemi Echevarria; Dispense: 90 Days ; #:90 Tablet; Refill: 3;For: Generalized anxiety disorder with panic attacks; CATE = N; Verified Transmission to [facility]; Last Updated By: Sysomos; 08/03/2022 11:40:41 AM Patient Discussion/Summary 6 WEEKS [...] (V49.89) (Z78.9) Surgical History Problems History of Wells tooth extraction x 4 extracted 4 years [...] 2:28:14 P (more content not included)... Normal [facility] Tobacco Screening.on 023 Tobacco use status [facility] a) Yes [facility] Work Phone: Tobacco Screening. Yes [facility] Work Phone: IO HCG, Urine Test on 06-14-2022 HCG ( test) Ql (U) Negative [facility] Work Phone: Office Visit (Internal Medic ine)on 06-14-2022 Follow-up visit Diagnoses/Problems Assessed Abnormal menses (626.9) (N92.6) Orders Abnormal menses Gynecology Referral Evaluation and Treatment Evaluate AND Treat Status: Complete Done: 14Jun2022 Ordered;For: Abnormal menses; Ordered By: Jordyn Thakur Performed: Due: 12Sep2022; Last Updated By: Melvi Meyers; 06/14/2022 4:00:47 PM 08-10-2022 at 1 with jocelyne GALVEZ HCG, Urine Test; Status:Complete; Done: 14Jun2022 04:05PM Performed:In Office; Due:[id number];Ordered; For:Abnormal menses; Ordered By:Jordyn Thakur; Patient Discussion/Summary [...] (V49.89) (Z78.9) Surgical History Problems History of Wells tooth extraction x 4 extracted 4 years ago Family History Mother Family history of Bipolar 1 disorder Father No pertinent family history Maternal Grandmother Family history of Family history of myocardial infarction (V17.3) (Z82.49) in her 40's Family history of type 2 diabetes mellitus (V18.0) (Z83.3) Social History Problems Cigarette nicotine dependence (305.1) (F17.210) (more content not included)... Normal [employer] Tobacco Screening.on Fall risk assessment a) No falls within the last year [facility] Work Phone: Tobacco use status [facility] a) Yes [facility] Work Phone: Tobacco Screening. Yes [facility] Work Phone: XR FINGER(S) LEFT [...] distal phalanx. There is minimal callous formation. [employer] Workstation ID: [id number] Dictated by: MAYELIN LANDRY on SunJun 07, 2022 7:25:17 PM EST Transcribed by: MYRNA GOODMAN on SunJun 07, 2022 7:40:20 PM EST Finalized by: MAYELIN LANDRY on SunJun 08, 2022 9:26:59 AM EST Normal [facility] Comment on above: Order Comment: Attn [...] attacks; CATE = N; Verified Transmission to [facility]; Last Updated By: Sysomos; 06/06/2022 2:28:43 PM Renew: PARoxetine HCl - 30 MG Oral Tablet; TAKE 1 TABLET DAILY Rx By: Jordyn Ramirez; Dispense: 90 Days ; #:90 Tablet; Refill: 1;For: Generalized anxiety disorder with panic attacks; CATE = N; [facility]; Last Updated By: Sysomos; 06/06/2022 2:28:49 PM Patient Discussion/Summary FEBRUARY WITH LABS LETTER Provider Impressions PLEASE MONITOR [...] (V49.89) (Z78.9) Surgical History Problems History of Wells tooth extraction x 4 extracted 4 years ago Family History Mother Family history of Bipolar 1 disorder Father No pertinent family history Maternal Grandmother Family history of Family history of myocardial infarction (V17.3) (Z82.49) in her 40's Family history of type 2 diabetes mellitus (V18.0) (Z83.3) Social History Problems Cigarette nicotine dependence (305.1) (F17.210) Consumes al (more content not included)... Normal [employer] Tobacco Screening.on Fall risk assessment a) No falls within the last year [facility] Work Phone: Tobacco use status [facility] a) Yes [facility] Work Phone: Tobacco Screening. Yes [facility] Work Phone: XR HAND LEFT [...] the base of the 3rd distal phalanx. [employer] Workstation ID: [id number] Dictated by: GAURI BLANCA on Sat May 13, 2022 6:52:11 PM EDT Transcribed by: MYRNA GOODMAN on Sat May 13, 2022 8:00:17 PM EDT Finalized by: GAURI BLANCA on [place] May 14, 2022 8:49:48 AM EDT [facility] Comment on above: Order Comment: Injur y/Trauma or Illness?:Injury/Trauma How long have you had these symptoms (acute/chronic)?:Acute Reason for exam?:f.u Closed nondisplaced fracture of distal phalanx of left middle finger History of cancer?:n Surgeries, chemotherapy, or radiation?:n Type of Exam?:Subsequent/Follow-up Mechanism of injury?:wrestling on 04/23 HCG, Beta Quantitativeon HCG.beta subunit Qn m[IU]/mL ROSEMARY-Racheal gomez [facility] Work Phone: Comment on above: [...] performed using a different test methodology at [facility] than other [facility]. Direct result comparison should only be made within the same method. REF VALUESNON FEMALE <5MALES <5 HCG,BETA-QUANTITATIVEon 04-22 HCG,BETA-QUANTITATI VE <2 Normal [facility] Comment on above: Result Comment: Low- level [...] HCG measurement is performed using the Tram [place] Access Immunoassay which detects intact HCG and free beta HCG subunit. This test is not indicated for use as a tumor marker. HCG testing is performed using a different test methodology at [facility] than other [facility]. Direct result comparison should only be made within the same method. REF VALUES NON FEMALE <5 MALES <5 Performed By: #### H CGQU #### [facility] [address] [place] [address] Office Visit (Internal Medic ine)on 05-02-2022 Follow-up [...] (V49.89) (Z78.9) Surgical History Problems History of Wells tooth extraction x 4 extracted 4 years [...] Vitals Vital Signs Recorded: 02May2022 08:59AM Heart Uopk964 Fllkusrl729 Iigvtauka55 Height5 ft 5 in Vrvwqq481 lb 15.82 oz BMI Hnqjgehoak77.81 kg/m2 BSA Calculated1.52 Tobacco Usea) Yes Patient [...] Apical pulse (more content not included)... Normal [employer] Tobacco Screening.on 022 Fall risk assessment a) No falls within the last year [facility] Work Phone: Tobacco use status [facility] a) Yes [facility] Work Phone: Tobacco Screening. Yes [facility] Work Phone: XR FINGER(S) LEFT [...] on SunApr 24, 2022 12:19:58 PM EDT [facility] Comment on above: Order Comment: Injur y/Trauma [...] attacks; CATE = N; Verified Transmission to [facility]; Last Updated By: Cortez Klein; 03/31/2022 2:39:28 PM Health Maintenance Complete Blood Count + Differential; Status:Active; Requested for:31Mar2023; Perform:Lab Services - Lab To Draw (Blood Test); Due:29Jun2023;Ordered; For:Health Maintenance; Ordered By:Jordyn Ramirez; Comprehensive Metabolic Panel; Status:Active; Requested for:31Mar2023; Perform:Lab Services - Lab To Draw (Blood Test); Due:[id number];Ordered; For:Health Maintenance; Ordered By:Jordyn Ramirez; Hemoglobin A1C; Status:Active; Requested for:31Mar2023; Perform:Lab Services - Lab To Draw (Blood Test); Due:29Jun2023;Ordered; For:Health Maintenance; Ordered By:Jordyn Ramirez; Lipid Panel; Status:Active; Requested for:31Mar2023; Perform:Lab Services - Lab To Draw (Blood Test); Due:[id number];Ordered; For:Health Maintenance; Ordered By:Jordyn Ramirez; TSH WITH REFLEX TO FREE T4 IF ABNORMAL; Status:Active; Requested for:31Mar2023; Perform:Lab Services - Lab To Draw (Blood Test); Due:[id number];Ordered; For:Health Maintenance; Ordered By:Jordyn Ramirez; Patient Discussion/Summary [...] labs History of Present IllnessP[facility]. NO NEW [...] loss, n (more content not included)... Normal [facility] Complete Blood Count + Diffe heron 03-10-2022 Basophils/100 WBC (Bld) 1.0 % 0.0 - 2.0 [facility] Work Phone: [phone] Erythrocyte distribution width (RBC) [Ratio] 12.2 % See Below [facility] Work Phone: [phone] Comment on above: Reference Range: 11. 5 - 14.5 Hematocrit (Bld) [Volume fraction] 44.2 % See Below [facility] Work Phone: Comment on above: Reference Range: 36. 0 - 46.0 Hemoglobin (Bld) [Mass/Vol] 15.1 g/dL See Below [facility] Work Phone: Comment on above: Reference Range: 12. 0 - 16.0 Lymphocytes/100 WBC (Bld) 26.6 % See Below [facility] Work Phone: [phone] Comment on above: Reference Range: 13. 0 - 44.0 MCHC (RBC) [Mass/Vol] 34.3 g/dL See Below [facility] Work Phone: Comment on above: Reference Range: 32. 0 - 36.0 MCV (RBC) [Entitic vol] 88 fL 80 - 100 [facility] Work Phone: [phone] Monocytes/100 WBC (Bld) 7.4 % 2.0 - 10.0 [facility] Work Phone: Neutrophils/100 WBC (Bld) 64.5 % See Below [facility] Work Phone: Comment on above: Reference Range: 40. 0 - 80.0 Platelets (Bld) [#/Vol] 275 10*3/uL 150 - 450 [facility] Work Phone: RBC (Bld) [#/Vol] 5.05 {x10E12/L} See Below [facility] Work Phone: Comment on above: Reference Range: 4.0 0 - 5.20 WBC (Bld) [#/Vol] 6.7 10*3/uL 4.4 - 11.3 [facility] Work Phone: Complete Blood Count + Differential 0.10 {x10E9/L} See Below [facility] Work Phone: Comment on above: Reference Range: 0.0 0 - 0.10 Complete Blood Count + Differential 0.00 {x10E9/L} See Below [facility] Work Phone: Comment on above: Reference Range: 0.0 0 - 0.70 Complete Blood Count + Differential 0.50 {x10E9/L} See Below [facility] Work Phone: Comment on above: Reference Range: 0.1 0 - 1.00 Complete Blood Count + Differential 1.80 {x10E9/L} See Below [facility] Work Phone: Comment on above: Reference Range: 1.2 0 - 4.80 Complete Blood Count + Differential 4.30 {x10E9/L} See Below [facility] Work Phone: Comment on above: Reference Range: 1.2 0 - 7.70 Percent differential counts (%) should be interpreted in the context of the absolute cell counts (cells/L). Complete Blood Count + Differential 0.5 % 0.0 - 6.0 [facility] Work Phone: Ferritin, Serumon 03-10-2022 Ferritin [Mass/Vol] 77 ug/L 8 - 150 [facility] Work Phone: Folate, Serumon 03-10-2022 Folate [Mass/Vol] 19.2 ng/mL >5.0 [facility] Work Phone: Comment on above: Low <3.4Borderline 3 .4-5.0Normal >5.0. Patients receiving more than 5 mg/day of biotin may have interference in test results. A sample should be taken no sooner than eight hours after previous dose. Contact the testing laboratory for additional information. Hemoglobin A1Con 03-10-2022 Glucose [Mass/Vol] 103 mg/dL [facility] [place] Work Phone: HbA1c (Bld) [[place] fraction] 5.2 % [facility] [place] Work Phone: Comment on above: Diagnosis of Diabete s-Adults Non-Diabetic: < or = 5.6% Increased risk for developing diabetes: 5.7-6.4% Diagnostic of diabetes: > or = 6.5%. Monitoring of Diabetes Age (y) Therapeutic Goal (%) Adults: >18 <7.0 Pediatrics: 13-18 <7.5 7-12 <8.0 0- 6 7.5-8.5 [place] [employer]. Diabetes Care 33(S1), Jul 2009. Laboratory - Chemistry and C hemistry - challengeon 03-10-2022 Albumin BCP dye [Mass/Vol] 4.9 g/dL 3.4 - 5.0 [facility] [place] Work Phone: ALP [Catalytic activity/Vol] 42 U/L 33 - 110 [facility] [place] Work Phone: ALT With P-5'-P [Catalytic activity/Vol] 9 U/L 7 - 45 [facility] [place] Work Phone: Comment on above: Patients treated wit h Sulfasalazine may generate falsely decreased results for ALT. Anion gap [Moles/Vol] 13 mmol/L 10 - 20 [facility] [place] Work Phone: AST With P-5'-P [Catalytic activity/Vol] 16 U/L 9 - 39 [facility] Work Phone: [phone] Bilirubin [Mass/Vol] 1.3 mg/dL above high threshold 0.0 - 1.2 [facility] Work Phone: [phone] Calcium [Mass/Vol] 9.5 mg/dL 8.6 - 10.3 [facility] Work Phone: [phone] Chloride [Moles/Vol] 106 mmol/L 98 - 107 [facility] Work Phone: [phone] CO2 [Moles/Vol] 25 mmol/L 21 - 32 [facility] Work Phone: [phone] Creatinine [Mass/Vol] 0.85 mg/dL See Below [facility] [place] Work Phone: [phone] Comment on above: Reference Range: 0.5 0 - 1.05 Glucose [Mass/Vol] 87 mg/dL 74 - 99 [facility] Work Phone: [phone] Iron [Mass/Vol] 141 ug/dL 35 - 150 [facility] Work Phone: [phone] Iron binding capacity [Mass/Vol] 349 ug/dL 240 - 445 [facility] [place] Work Phone: [phone] Potassium [Moles/Vol] 3.9 mmol/L 3.5 - 5.3 [facility] [place] Work Phone: [phone] Protein [Mass/Vol] 7.5 g/dL 6.4 - 8.2 [facility] Work Phone: [phone] Sodium [Moles/Vol] 140 mmol/L 136 - 145 [facility] Work Phone: [phone] TSH Qn 0.93 m[IU]/L See Below [facility] [place] Work Phone: Comment on above: Reference Range: 0.4 4 - 3.98 TSH testing is performed using different testing methodology at [facility] than at other [facility]. Direct result comparisons should only be made within the same method. Urea nitrogen [Mass/Vol] 15 mg/dL 6 - 23 [facility] Work Phone: Lipid Panelon 03-10-2022 Cholesterol [Mass/Vol] 143 mg/dL 0 - 199 [facility] Work Phone: Comment on above: . AGE [...] dosing. Cholesterol in HDL [Mass/Vol] 58.0 mg/dL [facility] [place] Work Phone: Comment on above: . AGE VERY LOW LOW N ORMAL HIGH 0-19 Y < 35 < 40 40-45 ---- 20- 24 Y ---- < 40 >45 ---- >24 Y ---- < 40 40-60 >60. Cholesterol in LDL [Mass/Vol] 74 mg/dL 0 - 119 [facility] [place] Work Phone: Comment on above: . NEAR BORD AGE DEE DEE RABLE OPTIMAL HIGH HIGH VERY HIGH 0-19 Y 0 - 109 --- 110-129 >/= 130 ---- 20-24 Y 0 - 119 --- 120-159 >/= 160 ---- >24 Y 0 - 99 100-129 130-159 160-189 >/=190. Cholesterol non HDL [Mass/Vol] 85 mg/dL 0 - 149 [facility] Work Phone: Comment on above: AGE DESIRABLE BORDER LINE HIGH HIGH VERY HIGH 0-19 Y 0 - 119 120 - 144 >/= 145 >/= 160 20-24 Y 0 - 149 150 - 189 >/= 190 ---- >24 Y 30 MG/DL ABOVE LDL CHOLESTEROL GOAL. Cholesterol.total/C holesterol in HDL [Mass ratio] 2.5 {ratio} [facility] [place] Work Phone: Comment on above: REF VALUESDESIRABLE < 3.4HIGH RISK > 5.0 Triglyceride [Mass/Vol] 57 mg/dL 0 - 149 [facility] [place] Work Phone: Comment on above: . AGE [...] Lipid Panel 11 mg/dL 0 - 40 [facility] [place] Work Phone: No Panel Informationon 03-10 >90 >90 [facility] [place] Work Phone: Comment on above: CALCULATIONS OF JOSE MATED GFR ARE PERFORMED USING THE 2020 CKD-EPI STUDY REFIT EQUATION WITHOUT THE RACE VARIABLE FOR THE IDMS-TRACEABLE CREATININE METHODS.https://jasn.asnjournals.org/content//ASN. 6718574738 40 % 25 - 45 [facility] Work Phone: Vitamin B12, Serumon 022 Cobalamin (Vitamin B12) [Mass/Vol] 215 pg/mL 211 - 911 [facility] Work Phone: Office Visit (Internal Medic [...] Ordered By:Jordyn Ramirez; Folate, Serum; Status:Active; Requested for:[id number]; Perform:Lab Services - Lab To Draw (Blood [...] Ordered By:Jordyn Ramirez; Lipid Panel; Status:Active; Requested for:[id number]; Perform:Lab Services - Lab To Draw (Blood [...] attacks; CATE = N; Verified Transmission to [employer]; Last Updated By: Sys[employer]os; 03/03/2022 2:58:35 PM Start: PARoxetine HCl - 10 MG Oral Tablet (Paxil); TAKE 1 TABLET DAILY Rx By: Jordyn Ramirez; Dispense: 90 Days ; #:90 Tablet; Refill: 0;For: Generalized anxiety disorder with panic attacks; CATE = N; Verified Transmission to [employer]; Last Updated By: Sysomos; 03/03/2022 2:58:27 PM GERD (gastroesophageal reflux disease) Renew: Omeprazole 20 MG Oral Capsule Delayed Release; TAKE 1 CAPSULE Daily Rx By: Jordyn Ramirez; Dispense: 90 Days ; #:90 Capsule; Refill: 3;For: GERD (gastroesophageal reflux disease); CATE = N; Verified Transmission to [employer]; Last Updated By: Sysomos; 03/03/2022 2:59:29 PM Patient Discussion/Summary 1 MONTH [...] AND MEDICATIONS (more content not included)... Normal [facility] Tobacco Screening.on 022 Adult depression screening assessment No [facility] Work Phone: Fall risk assessment a) No falls within the last year [facility] Work Phone: Tobacco use status CPHS a) Yes [facility] Work Phone: Tobacco Screening. Yes [facility] Work Phone: C. trachomatis/GC PCR Panel on [facility] 10-26-2021 C. trachomatis/GC PCR Panel on [facility] Reason for preventing automatic release->Other Is this specimen being sent to an external lab?->No Release to patient->Manual release only [id number]&Urine-First Void^^^Urine&Urine C. trachomatis PCR on [facility]: NEGATIVE-Chlamydia [...] with other laboratory and clinical data. Normal [facility] Comment on above: Performed By: #### C TN ####[facility] [place], [place] [phone] Progress Noteon 10-26-2021 [employer] Authentication Interface Message Text Patient ID: Luz [...] once for 1 dose - nystatin (MYCOSTATIN) [id number] UNIT/GM OINT ointment; Apply to affected area [...] Blood, Urine Negative Negative POCT Urine Specific [place] 1.015 1.005 - 1.030 POCT Ketones, Urine Negative Negative mg/dl POCT Glucose, Urine Negative Negative mg/dl Normal [facility] Urine Cultureon 10-26-2021 Bacteria identified Cx Nom (U) Is this specimen being sent to an external lab?->No Release to patient->Automatic [id number]&Urine-CCMS^^^Urine& Urine Urine Culture: Enterococcus sp. Source: [facility] Collected: 10/26/21 17:15 Site: Urine Received : 10/26/21 21:53 Urine Culture FINAL 10/28/21 09:26 10,000 - 50,000 CFU/ml of Normal Skin/urogenital ivy present <10,000 CFU/ml Enterococcus sp. If further work-up is needed, providers should call the Microbiology lab within 3 days. Normal [facility] Comment on above: Performed By: #### U RINE ####[facility] [place] [phone] SARS-CoV-2 (COVID-19) RT-PCR on 08-04-2021 SARS-CoV-2 (COVID-19) RNA GIOVANNI+probe Ql (Unsp spec) Positive Abnormal [facility] Comment on above: Order Comment: Is th is a pre-procedure screening test?->NoIs this specimen being sent to an external lab?->[id number]&Nasopharyngeal swab^\S\^Nose&Nose Result Comment: POSI TIVE: SARS-CoV-2 RNA [...] Chris SARS-CoV-2 assay on the Tika Chris 6800 System. - Comment: This test has received FDA Emergency Use Authorization (EUA) and has been verified by [facility]. This test is only authorized [...] at the following links: For Healthcare Providers: www.fda.gov/media/524924/download For Patients: www.fda.gov/media/652104/download - Reference Value: Negative Performed By: #### C OVID ####[facility] [place] [phone] CHRIS SARS CoV-2 RT PCR Detected Normal [facility] Comment on above: Order Comment: Is th is a pre-procedure screening test?->NoIs this specimen being sent to an external lab?->[id number]&Nasopharyngeal swab^\S\^Nose&Nose Performed By: #### C OVID ####[facility] [place], [place] [phone] Progress Noteon 08-02-2021 [employer]visor Authentication Interface Message Text Patient ID: Luz [...] CONTROL POCT Control - Valid Lot Number [id number] [facility] SARS-CoV-2 (COVID-19) RT-PCR on 08-02-2021 Date of Symptom Onset [id number] [facility] Comment on above: Order Comment: Is th is a pre-procedure screening test?->NoIs this specimen being sent to an external lab?->[id number]&Nasopharyngeal swab^\S\^Nose&Nose Performed By: #### C OVID ####[place] [phone] Employed in Healthcare setting? No [facility] Comment on above: Order Comment: Is th is a pre-procedure screening test?->NoIs this specimen being sent to an external lab?->[id number]&Nasopharyngeal swab^\S\^Nose&Nose Performed By: #### C OVID ####[address] Hospitalized? No Normal [facility] Comment on above: Order Comment: Is th is a pre-procedure screening test?->NoIs this specimen being sent to an external lab?->[id number]&Nasopharyngeal swab^\S\^Nose&Nose Performed By: #### C OVID ####[address] ICU? No Normal [facility] Comment on above: Order Comment: Is th is a pre-procedure screening test?->NoIs this specimen being sent to an external lab?->[id number]&Nasopharyngeal swab^\S\^Nose&Nose Performed By: #### C OVID ####[address] ? Unknown Normal [facility] Comment on above: Order Comment: Is th is a pre-procedure screening test?->NoIs this specimen being sent to an external lab?->[id number]&Nasopharyngeal swab^\S\^Nose&Nose Performed By: #### C OVID ####[address] [phone] Resident in congregate care setting? No Normal [facility] Comment on above: Order Comment: Is th is a pre-procedure screening test?->NoIs this specimen being sent to an external lab?->[id number]&Nasopharyngeal swab^\S\^Nose&Nose Performed By: #### C OVID ####[address] [phone] SARS-CoV-2 (COVID-19) RNA GIOVANNI+probe Ql (Unsp spec) No Normal [facility] Comment on above: Order Comment: Is th is a pre-procedure screening test?->NoIs this specimen being sent to an external lab?->[id number]&Nasopharyngeal swab^\S\^Nose&Nose Performed By: #### C OVID ####[address] [phone] Symptomatic as defined by CDC? Yes Normal [facility] Comment on above: Order Comment: Is th is a pre-procedure screening test?->NoIs this specimen being sent to an external lab?->[id number]&Nasopharyngeal swab^\S\^Nose&Nose Performed By: #### C OVID ####[address] [phone] Progress Noteon 07-04-2021 [employer]visor Authentication Interface Message Text Patient ID: Luz [...] thought content normal. Cognition are normal. Normal [facility] C-Reactive Proteinon 021 C-Reactive Protein 0.5 mg/dL Normal 0.0-1.0 [facility] Comment on above: Order Comment: With differential. Is this specimen being sent to an external lab?->No Release to patient->Automatic 37569&Blood^\S\^Venous&Venous TIBC will not be run. Is this specimen being sent to an external lab?->No Release to patient->Automatic 84732&Blood^\S\^Venous&Venous Result Comment: CRP determinations in neonates should be interpreted with caution. CRP may be elevated in circumstances not associated with inflammation (e.g. difficult delivery, pneumothorax). In premature neonates CRP levels may not rise to abnormal levels even if sepsis is present; some speculate that immature liver function decreases the ability to generate a CRP response. Performed By: #### C RP #### [address] [address] Comp Metabolic Panelon 06-23 Albumin [Mass/Vol] 4.6 g/dL Normal 3.5-5.0 [facility] Comment on above: Order Comment: With differential. Is this specimen being sent to an external lab?->No Release to patient->Automatic 25776&Blood^\S\^Venous&Venous TIBC will not be run. Is this specimen being sent to an external lab?->No Release to patient->Automatic 27981&Blood^\S\^Venous&Venous Performed By: #### C MP #### [address] [address] ALP [Catalytic activity/Vol] 42 U/L Normal 35-104 [facility] Comment on above: Order Comment: With differential. Is this specimen being sent to an external lab?->No Release to patient->Automatic 23579&Blood^\S\^Venous&Venous TIBC will not be run. Is this specimen being sent to an external lab?->No Release to patient->Automatic 79885&Blood^\S\^Venous&Venous Performed By: #### C MP #### [address] [id number] ALT [Catalytic activity/Vol] 13 U/L Normal 0-31 [facility] Comment on above: Order Comment: With differential. Is this specimen being sent to an external lab?->No Release to patient->Automatic 69962&Blood^\S\^Venous&Venous TIBC will not be run. Is this specimen being sent to an external lab?->No Release to patient->Automatic 44134&Blood^\S\^Venous&Venous Performed By: #### C MP #### [place] [address] AST [Catalytic activity/Vol] 19 U/L Normal 0-31 [facility] Comment on above: Order Comment: With differential. Is this specimen being sent to an external lab?->No Release to patient->Automatic 13906&Blood^\S\^Venous&Venous TIBC will not be run. Is this specimen being sent to an external lab?->No Release to patient->Automatic 90658&Blood^\S\^Venous&Venous Performed By: #### C MP #### [place] [address] Bili,Total 0.7 mg/dl Normal 0.0-1.0 [facility] Comment on above: Order Comment: With differential. Is this specimen being sent to an external lab?->No Release to patient->Automatic 73532&Blood^\S\^Venous&Venous TIBC will not be run. Is this specimen being sent to an external lab?->No Release to patient->Automatic 52923&Blood^\S\^Venous&Venous Performed By: #### C MP #### [place] [address] Calcium [Mass/Vol] 9.7 mg/dL Normal 7.6-11.0 [facility] Comment on above: Order Comment: With differential. Is this specimen being sent to an external lab?->No Release to patient->Automatic 22830&Blood^\S\^Venous&Venous TIBC will not be run. Is this specimen being sent to an external lab?->No Release to patient->Automatic 55790&Blood^\S\^Venous&Venous Performed By: #### C MP #### [place] [address] Chloride [Moles/Vol] 102 mmol/L Normal 96-108 [facility] Comment on above: Order Comment: With differential. Is this specimen being sent to an external lab?->No Release to patient->Automatic 27621&Blood^\S\^Venous&Venous TIBC will not be run. Is this specimen being sent to an external lab?->No Release to patient->Automatic 67708&Blood^\S\^Venous&Venous Performed By: #### C MP #### [place] [address] CO2 [Moles/Vol] 24.4 mmol/L Normal 22.0-29.0 [facility] Comment on above: Order Comment: With differential. Is this specimen being sent to an external lab?->No Release to patient->Automatic 30858&Blood^\S\^Venous&Venous TIBC will not be run. Is this specimen being sent to an external lab?->No Release to patient->Automatic 95118&Blood^\S\^Venous&Venous Performed By: #### C MP #### [place] [address] Creatinine [Mass/Vol] 0.74 mg/dL Normal 0.50-1.00 [facility] Comment on above: Order Comment: With differential. Is this specimen being sent to an external lab?->No Release to patient->Automatic 35313&Blood^\S\^Venous&Venous TIBC will not be run. Is this specimen being sent to an external lab?->No Release to patient->Automatic 85927&Blood^\S\^Venous&Venous Result Comment: Premature 0.3-1.0 mg/dL Performed By: #### C MP #### [place] [address] Glucose [Mass/Vol] 68 mg/dL Low 70-99 [facility] Comment on above: Order Comment: With differential. Is this specimen being sent to an external lab?->No Release to patient->Automatic 81267&Blood^\S\^Venous&Venous TIBC will not be run. Is this specimen being sent to an external lab?->No Release to patient->Automatic 33710&Blood^\S\^Venous&Venous Result Comment: Criteria for Diagnosis of Diabetes(Effective 12/26/10): Fasting specimen (no caloric intake for at least 8 hours). <100 mg/dl Normal 100-125 mg/dl Increased Risk for Diabetes >125 mg/dl Diagnostic for Diabetes Random Glucose (any time of day without regard to last meal). >=200 mg/dl plus Classic Symptoms of Diabetes Performed By: #### C MP #### [place] [address] Potassium [Moles/Vol] 4.8 mmol/L Normal 3.3-5.1 [facility] Comment on above: Order Comment: With differential. Is this specimen being sent to an external lab?->No Release to patient->Automatic 97055&Blood^\S\^Venous&Venous TIBC will not be run. Is this specimen being sent to an external lab?->No Release to patient->Automatic 67918&Blood^\S\^Venous&Venous Performed By: #### C MP #### [place] [address] Protein [Mass/Vol] 7.6 g/dL Normal 5.9-8.4 [facility] Comment on above: Order Comment: With differential. Is this specimen being sent to an external lab?->No Release to patient->Automatic 95422&Blood^\S\^Venous&Venous TIBC will not be run. Is this specimen being sent to an external lab?->No Release to patient->Automatic 50670&Blood^\S\^Venous&Venous Performed By: #### C MP #### [place] [address] Sodium [Moles/Vol] 139 mmol/L Normal 133-145 [facility] Comment on above: Order Comment: With differential. Is this specimen being sent to an external lab?->No Release to patient->Automatic 55437&Blood^\S\^Venous&Venous TIBC will not be run. Is this specimen being sent to an external lab?->No Release to patient->Automatic 71246&Blood^\S\^Venous&Venous Performed By: #### C MP #### [place] [address] Urea nitrogen [Mass/Vol] 16 mg/dL Normal 4-19 [facility] Comment on above: Order Comment: With differential. Is this specimen being sent to an external lab?->No Release to patient->Automatic 77880&Blood^\S\^Venous&Venous TIBC will not be run. Is this specimen being sent to an external lab?->No Release to patient->Automatic 67319&Blood^\S\^Venous&Venous Performed By: #### C MP #### [place] [address] Complete Blood Counton 06-23 Differential Complete Automated Normal [facility] Comment on above: Order Comment: With differential. Is this specimen being sent to an external lab?->No Release to patient->Automatic 01407&Blood^\S\^Venous&Venous TIBC will not be run. Is this specimen being sent to an external lab?->No Release to patient->Automatic 93157&Blood^\S\^Venous&Venous Performed By: #### C BC #### [place] [address] Basophils/100 WBC (Bld) 0.60 % Normal 0.00-1.00 [facility] Comment on above: Order Comment: With differential. Is this specimen being sent to an external lab?->No Release to patient->Automatic 98753&Blood^\S\^Venous&Venous TIBC will not be run. Is this specimen being sent to an external lab?->No Release to patient->Automatic 59565&Blood^\S\^Venous&Venous Performed By: #### C BC #### [place] [address] Eosinophils/100 WBC (Bld) 1.40 % Normal 0.00-3.00 [facility] Comment on above: Order Comment: With differential. Is this specimen being sent to an external lab?->No Release to patient->Automatic 67718&Blood^\S\^Venous&Venous TIBC will not be run. Is this specimen being sent to an external lab?->No Release to patient->Automatic 74062&Blood^\S\^Venous&Venous Performed By: #### C BC #### [place] [address] Erythrocyte distribution width (RBC) [Ratio] 11.5 % Normal 0.0-14.4 [facility] Comment on above: Order Comment: With differential. Is this specimen being sent to an external lab?->No Release to patient->Automatic 87173&Blood^\S\^Venous&Venous TIBC will not be run. Is this specimen being sent to an external lab?->No Release to patient->Automatic 90352&Blood^\S\^Venous&Venous Performed By: #### C BC #### [place] [address] Hematocrit (Bld) [Volume fraction] 42.3 % Normal 36.0-44.0 [facility] Comment on above: Order Comment: With differential. Is this specimen being sent to an external lab?->No Release to patient->Automatic 16550&Blood^\S\^Venous&Venous TIBC will not be run. Is this specimen being sent to an external lab?->No Release to patient->Automatic 25001&Blood^\S\^Venous&Venous Performed By: #### C BC #### [place] [address] Hemoglobin (Bld) [Mass/Vol] 14.7 g/dL Normal 12.0-15.0 [facility] Comment on above: Order Comment: With differential. Is this specimen being sent to an external lab?->No Release to patient->Automatic 50399&Blood^\S\^Venous&Venous TIBC will not be run. Is this specimen being sent to an external lab?->No Release to patient->Automatic 44712&Blood^\S\^Venous&Venous Performed By: #### C BC #### [address] [id number] Immature granulocytes/100 WBC (Bld) 0.20 % Normal [facility] Comment on above: Order Comment: With differential. Is this specimen being sent to an external lab?->No Release to patient->Automatic 01654&Blood^\S\^Venous&Venous TIBC will not be run. Is this specimen being sent to an external lab?->No Release to patient->Automatic 39576&Blood^\S\^Venous&Venous Result Comment: Tammie ture Granulocyte Percent includes promyelocytes, myelocytes, and metamyelocytes. IG% > 1.0 indicates a left shift is present. With automated differentials, bands are included in the neutrophil count and not in the Immature Granulocyte Percent. Performed By: #### C BC #### [address] [address] Lymphocytes/100 WBC (Bld) 30.5 % Normal 24.0-44.0 [facility] Comment on above: Order Comment: With differential. Is this specimen being sent to an external lab?->No Release to patient->Automatic 54981&Blood^\S\^Venous&Venous TIBC will not be run. Is this specimen being sent to an external lab?->No Release to patient->Automatic 86386&Blood^\S\^Venous&Venous Performed By: #### C BC #### [address] [address] MCH (RBC) [Entitic mass] 30.0 pg Normal 26.0-34.0 [facility] Comment on above: Order Comment: With differential. Is this specimen being sent to an external lab?->No Release to patient->Automatic 13897&Blood^\S\^Venous&Venous TIBC will not be run. Is this specimen being sent to an external lab?->No Release to patient->Automatic 90483&Blood^\S\^Venous&Venous Performed By: #### C BC #### [place] [address] MCHC 34.8 % Normal 31.0-37.0 [facility] Comment on above: Order Comment: With differential. Is this specimen being sent to an external lab?->No Release to patient->Automatic 15281&Blood^\S\^Venous&Venous TIBC will not be run. Is this specimen being sent to an external lab?->No Release to patient->Automatic 02834&Blood^\S\^Venous&Venous Performed By: #### C BC #### [place] [address] MCV (RBC) [Entitic vol] 86.3 fL Normal 80.0-100.0 [facility] Comment on above: Order Comment: With differential. Is this specimen being sent to an external lab?->No Release to patient->Automatic 27314&Blood^\S\^Venous&Venous TIBC will not be run. Is this specimen being sent to an external lab?->No Release to patient->Automatic 16548&Blood^\S\^Venous&Venous Performed By: #### C BC #### [place] [address] Monocytes/100 WBC (Bld) 8.70 % High 3.00-6.00 [facility] Comment on above: Order Comment: With differential. Is this specimen being sent to an external lab?->No Release to patient->Automatic 43965&Blood^\S\^Venous&Venous TIBC will not be run. Is this specimen being sent to an external lab?->No Release to patient->Automatic 71624&Blood^\S\^Venous&Venous Performed By: #### C BC #### [address] [id number] Neutrophils (Bld) [#/Vol] 5.2 10*3/uL Normal 2.0-7.2 [facility] Comment on above: Order Comment: With differential. Is this specimen being sent to an external lab?->No Release to patient->Automatic 88706&Blood^\S\^Venous&Venous TIBC will not be run. Is this specimen being sent to an external lab?->No Release to patient->Automatic 87922&Blood^\S\^Venous&Venous Performed By: #### C BC #### [address] [id number] Neutrophils/100 WBC (Bld) 58.6 % Normal 35.0-66.0 [facility] Comment on above: Order Comment: With differential. Is this specimen being sent to an external lab?->No Release to patient->Automatic 19635&Blood^\S\^Venous&Venous TIBC will not be run. Is this specimen being sent to an external lab?->No Release to patient->Automatic 08603&Blood^\S\^Venous&Venous Performed By: #### C BC #### [place] [address] Nucleated RBC/100 WBC (Bld) [Ratio] 0.0 % Normal -1.0-0.0 [facility] Comment on above: Order Comment: With differential. Is this specimen being sent to an external lab?->No Release to patient->Automatic 26294&Blood^\S\^Venous&Venous TIBC will not be run. Is this specimen being sent to an external lab?->No Release to patient->Automatic 26434&Blood^\S\^Venous&Venous Performed By: #### C BC #### [address] [address] Platelet mean volume (Bld) [Entitic vol] 10.7 fL Normal [facility] Comment on above: Order Comment: With differential. Is this specimen being sent to an external lab?->No Release to patient->Automatic 09634&Blood^\S\^Venous&Venous TIBC will not be run. Is this specimen being sent to an external lab?->No Release to patient->Automatic 45312&Blood^\S\^Venous&Venous Result Comment: MPV is platelet range and age dependent Performed By: #### C BC #### [address] [id number] Platelets (Bld) [#/Vol] 285 10*3/uL Normal 150-450 [facility] Comment on above: Order Comment: With differential. Is this specimen being sent to an external lab?->No Release to patient->Automatic 97374&Blood^\S\^Venous&Venous TIBC will not be run. Is this specimen being sent to an external lab?->No Release to patient->Automatic 96067&Blood^\S\^Venous&Venous Performed By: #### C BC #### [place] [id number] RBC 4.90 10E12/L Normal 4.00-4.90 [facility] Comment on above: Order Comment: With differential. Is this specimen being sent to an external lab?->No Release to patient->Automatic 56564&Blood^\S\^Venous&Venous TIBC will not be run. Is this specimen being sent to an external lab?->No Release to patient->Automatic 81423&Blood^\S\^Venous&Venous Performed By: #### C BC #### [place] [address] WBC (Bld) [#/Vol] 8.8 10*3/uL Normal 4.5-11.0 [facility] Comment on above: Order Comment: With differential. Is this specimen being sent to an external lab?->No Release to patient->Automatic 44832&Blood^\S\^Venous&Venous TIBC will not be run. Is this specimen being sent to an external lab?->No Release to patient->Automatic 91002&Blood^\S\^Venous&Venous Performed By: #### C BC #### [address] [id number] Ferritinon 06-23-2021 Ferritin [Mass/Vol] 44 ng/mL Normal 10-291 [facility] Comment on above: Order Comment: With differential. Is this specimen being sent to an external lab?->No Release to patient->Automatic 81671&Blood^\S\^Venous&Venous TIBC will not be run. Is this specimen being sent to an external lab?->No Release to patient->Automatic 38466&Blood^\S\^Venous&Venous Performed By: #### F ERTN #### [place] [address] TSH with reflex T4FRon 06-23 TSH with reflex T4FR 2.171 uIU/mL Normal 0.350-5.500 [facility] Comment on above: Order Comment: With differential. Is this specimen being sent to an external lab?->No Release to patient->Automatic 12911&Blood^\S\^Venous&Venous TIBC will not be run. Is this specimen being sent to an external lab?->No Release to patient->Automatic 87331&Blood^\S\^Venous&Venous Performed By: #### T SHR #### [place] [address] Vitamin D 25 OHon 06-23-2021 25 OH Vitamin D 37 ng/mL Normal 30-100 [facility] Comment on above: Order Comment: With differential. Is this specimen being sent to an external lab?->No Release to patient->Automatic 21203&Blood^\S\^Venous&Venous TIBC will not be run. Is this specimen being sent to an external lab?->No Release to patient->Automatic 55434&Blood^\S\^Venous&Venous Result Comment: Refe rence ranges provided by [facility] are based on Endocrine Society Guidelines: Level Characterization <21 ng/mL Vitamin D deficiency 21-29 ng/mL Suboptimal Vitamin D status 30-100 ng/mL Optimal Vitamin D status >100 ng/mL Potentially toxic Vitamin D effects NOTE: New Reference Ranges effective 18 Performed By: #### V 25DH #### [place] [address] Progress Noteon 06-22-2021 Vineyard Supervisor Authentication Interface Message Text Patient ID: Luz [...] Line *Present Clear Background *Present Lot Number [id number] POCT urinalysis dipstick Collection Time: 06/22/21 5:51 PM Result Value Ref Range POCT, Leukocytes, Urine Negative Negative POCT Nitrite, Urine Negative Negative POCT Protein, Urine Trace Negative - Trace mg/dl POCT Urine pH 6.0 5.0 - 8.0 pH POCT Blood, Urine Negative Negative POCT Urine Specific [place] 1.030 1.005 - 1.030 POCT Ketones, Urine Negative Negative mg/dl POCT Glucose, Urine Negative Negative mg/dl Normal [facility] Progress Noteon 02-15-2021 Vineyard Supervisor Authentication Interface Message Text Patient ID: Luz [...] Line *Present Clear Background *Present Lot Number [id number] Normal [facility] Strep Cultureon 02-15-2021 Strep Culture Is this specimen javier ng sent to an external lab?->No Release to patient->Automatic 92048&Throat swab^^^Throat swab&Throat swab Strep Culture: No Beta hemolytic Streptococci isolated. Source: THRSW Collected: 02/15/21 13:17 Site: Throat swab Received : 02/15/21 20:06 Strep Culture FINAL 02/17/21 07:53 No Beta hemolytic Streptococci isolated. Normal [facility] Comment on above: Performed By: #### S TREP #### [place] [address] Progress Noteon 12-14-2020 Vineyard Supervisor Authentication Interface Message Text Patient ID: Luz [...] She exh (more content not included)... Normal [facility] Vineyard Supervisor Authentication Interface Message Text Luz Hinojosa is a 19 y.o. female patient. PHQ9 Assessment With Score Performed by: Page Ferris APRN-CNP Authorized by: Page Ferris APRN-CNP PHQ-9 See PHQ9 Flowsheet Feeling down, [...] Risk Assessment - CRAFFT Authorized by: Page Ferris APRN-CNP CRAFFT Results: 1. Drink more than a few sips of beer, wine, or any drink containing alcohol? Put 0 if none.: 0 2. Use any marijuana (weed, oil, or hash by smoking, vaping, or in food) or synthetic marijuana (like K2, Spice )? Put 0 if none.: 0 3. Use anything else to get high (like other illegal drugs, prescription or dbqz-slg-vafyrtl medications, and things that you sniff, marte, or vape)? Put 0 if none.: 0 4. Use any tobacco or nicotine products (for example, cigarettes, e-cigarettes, hookahs or smokeless tobacco)?: 0 5. Have you ever ridden in a CAR driven by someone (including yourself) who was high or had been using alcohol or drugs?: No Electronically signed by: MYKE Rahman [facility] EMERGENCY REPORTon 9 EMERGENCY REPORT [facility] EMERGENCY ROOM REPORT NAME ACCOUNT SEX AGE ADMIT DISCHARGE PT MED. RECORD# NUMBER DATE DATE TYPE ASHISH, [id number] F 18 04/01/19 04/01/19 3 LUZ Alves [id number] ROOM: ER DATE OF : 2000 DICTATING [...] Pharynx is symmetric without any RPA, PPA, FAMILY WORKER. There is no significant dental problems. She [...] ambulatory from the emergency room. Follow up [facility]. Return p.r.n. as necessary. In general she appears to be nontoxic and she is pleasant Page 1 of 2 LUZ HINOJOSA Emergency Room Report and alert and oriented. DIAGNOSIS: Upper respiratory infection, sinus congestion and left otitis media. Dictated By: Sherri Lisa DO 04/02/19 04:52 JOB #: [id number] Transcribed By: yesenia 04/02/19 06:23 Electronically signed by: E-SIGN SHERRI LISA DO 04/07/19 21:31 Page 2 of 2 LUZ HINOJOSA Emergency Room Report Normal [facility] XR Chest 2 Viewson 8 XR Chest 2 Views Exam Date/Time: 04/01/2018 23:14 EDT Reason for Exam: Cough Report STUDY: XR Chest 2 Views; 04/01/2018 11:14 pm INDICATION: Cough. COMPARISON: 09/12/2017 ACCESSION NUMBER(S): [id number] ORDERING CLINICIAN: Sherri Payton FINDINGS: CARDIOMEDIASTINAL SILHOUETTE: Cardiomediastinal silhouette is normal in size and configuration. LUNGS: No focal consolidation, effusion, edema, or pneumothorax. ABDOMEN: No remarkable upper abdominal findings. BONES: No acute osseous changes. IMPRESSION: 1. No evidence of acute cardiopulmonary process. FINAL REPORT Dictated: 04/02/2018 0:02 am Rene Toth MD Signed (Electronic Signature): 04/02/2018 0:02 am Signed by: Rene Toth MD Technologist: [facility] Vital Signs Date Time Vital Sign Value Performing Clinician Facility 08-21-2023 14:36-0500 Body height 165.1 cm Anika Richardson MD Work Phone: [facility] 08-21-2023 14:36-0500 Body mass index (BMI) [Ratio] 19.87 kg/m2 Anika Richardson MD Work Phone: [facility] 08-21-2023 14:36-0500 Body weight 54.16 kg Anika Richardson MD Work Phone: [facility] 08-21-2023 14:36-0500 Diastolic blood pressure 70 mm[Hg] Anika Richardson MD Work Phone: [facility] 08-21-2023 14:36-0500 Systolic blood pressure 116 mm[Hg] Anika Richardson MD Work Phone: [facility] 06-19-2023 17:27-0500 SaO2% (BldA) [Mass fraction] 98 % Jordyn Thakur INFORMATION SERVICES TECH-SWITCH HOUSE OPERATOR Work Phone: [facility] 06-19-2023 17:22-0500 Body height 165.1 cm Jordyn Thakur INFORMATION SERVICES TECH-SWITCH HOUSE OPERATOR Work Phone: [facility] 06-19-2023 17:22-0500 Body mass index (BMI) [Ratio] 19.64 kg/m2 Jordyn Gonzalezley INFORMATION SERVICES TECH-SWITCH HOUSE OPERATOR Work Phone: [facility] 06-19-2023 17:22-0500 Body temperature 98.2 [degF] Jordyn Gonzalezley INFORMATION SERVICES TECH-SWITCH HOUSE OPERATOR Work Phone: [facility] 06-19-2023 17:22-0500 Body weight 53.52 kg Jordyn Thakur INFORMATION SERVICES TECH-SWITCH HOUSE OPERATOR Work Phone: [facility] 06-19-2023 17:22-0500 Diastolic blood pressure 81 mm[Hg] Jordyn Thakur INFORMATION SERVICES TECH-SWITCH HOUSE OPERATOR Work Phone: [facility] 06-19-2023 17:22-0500 Heart rate 98 /min Jordyn Thakur INFORMATION SERVICES TECH-SWITCH HOUSE OPERATOR Work Phone: [facility] 06-19-2023 17:22-0500 Respiratory rate 16 /min Jordyn Thakur INFORMATION SERVICES TECH-SWITCH HOUSE OPERATOR Work Phone: [facility] 06-19-2023 17:22-0500 Systolic blood pressure 124 mm[Hg] Jordyn Thakur INFORMATION SERVICES TECH-SWITCH HOUSE OPERATOR Work Phone: [facility] 05-18-2023 10:33-0400 Body height 165.1 cm Jordyn Thakur INFORMATION SERVICES TECH-SWITCH HOUSE OPERATOR Work Phone: [facility] 05-18-2023 10:33-0400 Body mass index (BMI) [Ratio] 19.64 kg/m2 Jordyn Thakur INFORMATION SERVICES TECH-SWITCH HOUSE OPERATOR Work Phone: [facility] 05-18-2023 10:33-0400 Body weight 53.52 kg Jordyn Thakur INFORMATION SERVICES TECH-SWITCH HOUSE OPERATOR Work Phone: [facility] 05-18-2023 10:33-0400 Diastolic blood pressure 74 mm[Hg] Jordyn Thakur INFORMATION SERVICES TECH-SWITCH HOUSE OPERATOR Work Phone: [facility] 05-18-2023 10:33-0400 Heart rate 98 /min Jordyn Thakur INFORMATION SERVICES TECH-SWITCH HOUSE OPERATOR Work Phone: [facility] 05-18-2023 10:33-0400 SaO2% (BldA) [Mass fraction] 99 % Jordyn Thakur INFORMATION SERVICES TECH-SWITCH HOUSE OPERATOR Work Phone: [facility] 05-18-2023 10:33-0400 Systolic blood pressure 107 mm[Hg] Jordyn Thakur INFORMATION SERVICES TECH-SWITCH HOUSE OPERATOR Work Phone: 6(011)971-941753 [place] [address] 04-23-2023 09:48-0400 Body height 165.1 cm Kemi Echevarria MD Work Phone: 5(210)701-982270 [place] [address] 04-23-2023 09:48-0400 Body mass index (BMI) [Ratio] 19.64 kg/m2 Kemi Echevarria MD Work Phone: 0(286)201-372653 [place] [address] 04-23-2023 09:48-0400 Body weight 53.52 kg Kemi Echevarria MD Work Phone: 2(076)117-411843 [address] 04-23-2023 09:48-0400 Diastolic blood pressure 60 mm[Hg] Kemi Echevarria MD Work Phone: 8(101)989-883453 [place] [address] 04-23-2023 09:48-0400 Heart rate 125 /min Kemi Echevarria MD Work Phone: [facility] 04-23-2023 09:48-0400 SaO2% (BldA) [Mass fraction] 99 % Kemi Echevarria MD Work Phone: 9(401)559-475[address] [place] [address] 04-23-2023 09:48-0400 Systolic blood pressure 120 mm[Hg] Kemi Echevarria MD Work Phone: 9(640)894-136370 [place] [address] 04-13-2023 17:00-0400 Diastolic blood pressure 88 mm[Hg] Page Ferris Other Phone: [facility] 04-13-2023 17:00-0400 Heart rate 83 /min Page Josy Other Phone: [facility] 04-13-2023 17:00-0400 Respiratory rate 18 /min Page Josy Other Phone: [facility] 04-13-2023 17:00-0400 SaO2% (BldA) [Mass fraction] 100 % Page Josy Other Phone: [facility] 04-13-2023 17:00-0400 Systolic blood pressure 128 mm[Hg] Page Josy Other Phone: [facility] 04-13-2023 15:13-0400 Body temperature 98.06 [degF] Page Josy Other Phone: [facility] 04-13-2023 15:13-0400 Body weight 55 kg Page Josy Other Phone: [facility] 04-11-2023 10:00-0400 Body temperature 97.88 [degF] Page Josy Other Phone: [facility] 04-11-2023 10:00-0400 Diastolic blood pressure 84 mm[Hg] Page Josy Other Phone: [facility] 04-11-2023 10:00-0400 Heart rate 81 /min Page Josy Other Phone: [facility] 04-11-2023 10:00-0400 Respiratory rate 17 /min Page Josy Other Phone: [facility] 04-11-2023 10:00-0400 SaO2% (BldA) [Mass fraction] 99 % Page Josy Other Phone: [facility] 04-11-2023 10:00-0400 Systolic blood pressure 122 mm[Hg] Page Josy Other Phone: [facility] 11-06-2022 20:48-0400 Body height 165.1 cm Page Josy Other Phone: [facility] 11-06-2022 20:48-0400 Body temperature 97.7 [degF] Page Josy Other Phone: [facility] 11-06-2022 20:48-0400 Body weight 54.5 kg Page Josy Other Phone: [facility] 11-06-2022 20:48-0400 Diastolic blood pressure 79 mm[Hg] Page Josy Other Phone: [facility] 11-06-2022 20:48-0400 Heart rate 92 /min Page Josy Other Phone: [facility] 11-06-2022 20:48-0400 Respiratory rate 18 /min Page Josy Other Phone: [facility] 11-06-2022 20:48-0400 SaO2% (BldA) [Mass fraction] 97 % Page Josy Other Phone: [facility] 11-06-2022 20:48-0400 Systolic blood pressure 133 mm[Hg] Page Josy Other Phone: [facility] 08-24-2022 18:30-0500 Diastolic blood pressure 105 mm[Hg] Page Josy Other Phone: [facility] 08-24-2022 18:30-0500 Heart rate 88 /min Page Josy Other Phone: [facility] 08-24-2022 18:30-0500 Respiratory rate 15 /min Page Josy Other Phone: [facility] 08-24-2022 18:30-0500 SaO2% (BldA) [Mass fraction] 100 % Page Ferris Other Phone: [facility] 08-24-2022 18:30-0500 Systolic blood pressure 129 mm[Hg] Page Josy Other Phone: [facility] 08-24-2022 16:15-0500 Body height 165.1 cm Page Lopezrdle Other Phone: [facility] 08-24-2022 16:15-0500 Body temperature 97.7 [degF] Page Lopezrdle Other Phone: [facility] 08-24-2022 16:15-0500 Body weight 54.5 kg Page Josy Other Phone: [facility] 08-03-2022 11:02-0500 Body height 165.1 cm Jordyn Thakur Work Phone: [facility] Work Phone: 08-03-2022 11:02-0500 Body mass index (BMI) [Ratio] 21.2 kg/m2 Jordyn Thakur Work Phone: [facility] Work Phone: 08-03-2022 11:02-0500 Body surface area Derived from formula 1.63 m2 Jordyn Thakur Work Phone: [facility] Work Phone: 08-03-2022 11:02-0500 Body weight 57.78 kg Jordyn Thakur Work Phone: [facility] Work Phone: 08-03-2022 11:02-0500 Diastolic blood pressure 74 mm[Hg] Jordyn Thakur Work Phone: [facility] Work Phone: 08-03-2022 11:02-0500 Heart rate 88 /min Jordyn Thakur Work Phone: [facility] Work Phone: 08-03-2022 11:02-0500 Systolic blood pressure 116 mm[Hg] Jordyn Jason Thakur Work Phone: [facility] Work Phone: 06-14-2022 15:28-0500 Body height 165.1 cm Jordyn Jason Thakur Work Phone: [facility] Work Phone: 06-14-2022 15:28-0500 Body mass index (BMI) [Ratio] 19.64 kg/m2 Jordyn Jason Thakur Work Phone: [facility] Work Phone: 06-14-2022 15:28-0500 Body surface area Derived from formula 1.58 m2 Jordyn Gomez Thakur Work Phone: [facility] Work Phone: 06-14-2022 15:28-0500 Body weight 53.52 kg Jordyn Jason Simon Work Phone: [facility] Work Phone: 06-14-2022 15:28-0500 Diastolic blood pressure 82 mm[Hg] Jordyn Gomez Thakur Work Phone: [facility] Work Phone: 06-14-2022 15:28-0500 Heart rate 101 /min Jordyn Gomez Thakur Work Phone: [facility] Work Phone: 06-14-2022 15:28-0500 Systolic blood pressure 118 mm[Hg] Jordyn Gomez Thakur Work Phone: [facility] Work Phone: 06-06-2022 14:14-0500 Body height 165.1 cm Jordyn Ramirez Work Phone: [facility] Work Phone: 06-06-2022 14:14-0500 Body mass index (BMI) [Ratio] 19.64 kg/m2 Jordyn Ramirez Work Phone: [facility] Work Phone: 06-06-2022 14:14-0500 Body surface area Derived from formula 1.58 m2 Jordyn Ramirez Work Phone: [facility] Work Phone: 06-06-2022 14:14-0500 Body weight 53.52 kg Jordyn Ramirez Work Phone: [facility] Work Phone: 06-06-2022 14:14-0500 Diastolic blood pressure 70 mm[Hg] Jordyn Ramirez Work Phone: [facility] Work Phone: 06-06-2022 14:14-0500 Heart rate 108 /min Jordyn Ramirez Work Phone: [facility] Work Phone: 06-06-2022 14:14-0500 SaO2% (BldA) [Mass fraction] 99 % Jordyn Ramirez Work Phone: [facility] Work Phone: 06-06-2022 14:14-0500 Systolic blood pressure 112 mm[Hg] Jordyn Ramirze Work Phone: [facility] Work Phone: 05-02-2022 08:59-0400 Body height 165.1 cm Jodryn Ramirez Work Phone: [facility] Work Phone: 05-02-2022 08:59-0400 Body mass index (BMI) [Ratio] 17.81 kg/m2 Jordyn Jason NguyễnRamirez Work Phone: [facility] Work Phone: 05-02-2022 08:59-0400 Body surface area Derived from formula 1.52 m2 Jordyn Jason Ramirez Work Phone: [facility] Work Phone: 05-02-2022 08:59-0400 Body weight 48.53 kg Jordyn D Ramirez Work Phone: [facility] Work Phone: 05-02-2022 08:59-0400 Diastolic blood pressure 68 mm[Hg] Jordyn D Ramirez Work Phone: [facility] Work Phone: 05-02-2022 08:59-0400 Heart rate 118 /min Jordyn D Ramirez Work Phone: [facility] Work Phone: 05-02-2022 08:59-0400 Systolic blood pressure 102 mm[Hg] Jordyn Jason NguyễnRamirez Work Phone: [facility] Work Phone: 03-03-2022 14:28-0400 Body height 165.1 cm Jordyn D Ramirez Work Phone: [facility] Work Phone: 03-03-2022 14:28-0400 Body mass index (BMI) [Ratio] 18.47 kg/m2 Jordyn D Ramirez Work Phone: [facility] Work Phone: 03-03-2022 14:28-0400 Body surface area Derived from formula 1.54 m2 Jordyn D Ramirez Work Phone: [facility] Work Phone: 03-03-2022 14:28-0400 Body weight 50.35 kg Jordyn D Ramirez Work Phone: [facility] Work Phone: 03-03-2022 14:28-0400 Diastolic blood pressure 72 mm[Hg] Jordyn D Ramirez Work Phone: [facility] Work Phone: 03-03-2022 14:28-0400 Heart rate 84 /min Jordyn D Ramirez Work Phone: [facility] Work Phone: 03-03-2022 14:28-0400 Systolic blood pressure 110 mm[Hg] Jordyn D Ramirez Work Phone: [facility] Work Phone: 01-04-2021 13:50-0400 Diastolic blood pressure 70 mm[Hg] Page Josy Other Phone: [facility] 01-04-2021 13:50-0400 Diastolic blood pressure 73 mm[Hg] Page Josy Other Phone: [facility] 01-04-2021 13:50-0400 Diastolic blood pressure 77 mm[Hg] Page Josy Other Phone: [facility] 01-04-2021 13:50-0400 Heart rate 79 /min Page Josy Other Phone: [facility] 01-04-2021 13:50-0400 Heart rate 77 /min Page Josy Other Phone: [facility] 01-04-2021 13:50-0400 Heart rate 89 /min Page Josy Other Phone: [facility] 01-04-2021 13:50-0400 Systolic blood pressure 104 mm[Hg] Page Josy Other Phone: [facility] 01-04-2021 13:50-0400 Systolic blood pressure 113 mm[Hg] Page Josy Other Phone: [facility] 01-04-2021 13:38-0400 Respiratory rate 20 /min Page Josy Other Phone: [facility] 01-04-2021 11:45-0400 Body height 165.1 cm Page Josy Other Phone: [facility] 01-04-2021 11:45-0400 Body temperature 98.06 [degF] Page Ferris Other Phone: [facility] 01-04-2021 11:45-0400 Body weight 60.5 kg Page Ferris Other Phone: [facility] 01-04-2021 11:45-0400 SaO2% (BldA) [Mass fraction] 98 % Page Ferris Other Phone: [facility] Encounters Encounter Date Encounter Type Care Provider Facility Start: 01-09-2024 End: 01-09-2024 ambulatory Anika Gomez Paulino [place] Start: 01-09-2024 End: 01-09-2024 Patient encounter procedure Anika Gomez Paulino [facility] Start: 10-10-2023 End: 10-10-2023 ambulatory [facility] Start: 10-10-2023 End: 10-10-2023 Office outpatient visit 15 minutes Jordyn Thakur INFORMATION SERVICES TECH-SWITCH HOUSE OPERATOR Work Phone: [facility] Internal Medicine Comment on above: Generalized anxiety disorder with panic attacks Start: 09-22-2023 End: 09-22-2023 ambulatory Anika Gomez Paulino Facility[facility] Start: 09-22-2023 End: 09-22-2023 Patient encounter procedure Anika Gomez Paulino [facility] Start: 09-19-2023 End: 09-19-2023 ambulatory [facility] Start: 09-19-2023 End: 09-19-2023 Office outpatient visit 25 minutes Jordyn Thakur INFORMATION SERVICES TECH-SWITCH HOUSE OPERATOR Work Phone: [facility] Medicine Comment on above: Nausea (Primary Dx); Nasal congestion; Acute non-recurrent sinusitis, unspecified location Start: 09-12-2023 End: 09-12-2023 ambulatory [facility] Start: 09-12-2023 End: 09-12-2023 Office outpatient visit 25 minutes Jordyn Thaukr INFORMATION SERVICES TECH-SWITCH HOUSE OPERATOR Work Phone: [facility] Medicine Comment on above: Generalized anxiety disorder with panic attacks (Primary Dx) Start: 08-27-2023 End: 08-28-2023 ambulatory [facility] Start: 08-21-2023 End: 08-21-[facility] Start: 08-21-2023 End: 08-21-2023 Office outpatient new 30 minutes Anika Richardson MD Work Phone: [facility] Office Building Comment on above: Family planning coun seling (Primary Dx) Start: 07-13-2023 End: 07-13-2023 ambulatory [facility] Start: 06-19-2023 End: 06-19-2023 Emergency department patient visit [facility] Start: 06-19-2023 End: 06-19-2023 Emergency department patient visit Jordyn Thakur INFORMATION SERVICES TECH-SWITCH HOUSE OPERATOR Work Phone: [facility] Emergency Medicine Comment on above: Urinary tract infect ion without hematuria, site unspecified (Primary Dx) Start: 05-18-2023 End: 05-18-2023 ambulatory [facility] Start: 05-18-2023 End: 05-18-2023 Office outpatient visit 25 minutes Jordyn Thakur INFORMATION SERVICES TECH-SWITCH HOUSE OPERATOR Work Phone: [facility] Medicine Comment on above: Urinary frequency (P rimary Dx); Urinary tract infection with hematuria, site unspecified; Generalized anxiety disorder with panic attacks; Gastroesophageal reflux disease without esophagitis Start: 04-23-2023 End: 04-23-2023 ambulatory [facility] Start: 04-23-2023 End: 04-23-2023 Office outpatient visit 25 minutes Kemi Echevarria MD Work Phone: [facility] Medicine Comment on above: H/O urinary tract in fection (Primary Dx); Generalized anxiety disorder with panic attacks Start: 04-13-2023 End: 04-13-2023 Emergency department patient visit Chris JasonGhanshyam Blue [facility] Emergency 14 Start: 04-09-2023 End: 04-11-2023 ambulatory Ms. Jordyn Thakur Facility:[id number] Start: 04-09-2023 End: 04-11-2023 Evaluation and management of inpatient Bautista Villanueva [facility] 3 Med Surg [facility] 310 01 Start: 03-27-2023 End: 03-27-2023 Emergency department patient visit JORDYN REYESISE [facility] Start: 02-14-2023 End: 02-14-2023 ambulatory JORDYN THAKUR [facility] Ambulatory Start: 11-06-2022 End: 11-06-2022 Emergency department patient visit Alie Flor [facility] Emergency 11 Start: 10-20-2022 End: 10-20-2022 Office outpatient visit 15 minutes Jordyn Thakur INFORMATION SERVICES TECH-SWITCH HOUSE OPERATOR Work Phone: [facility] Internal Medicine Comment on above: Vaginal yeast infect ion (Primary Dx) Start: 10-02-2022 End: 10-02-2022 Emergency department patient visit JORDYN RAMIREZ [facility] Start: 08-31-2022 ambulatory SWITCH HOUSE OPERATOR JORDYN Sue acility:[id number] Start: 08-24-2022 End: 08-24-2022 Emergency department patient visit Tyrell Pelaez [facility] Emergency Start: 08-03-2022 Office outpatient vi sit 25 minutes Jordyn Thakur Work Phone: [facility] Internal Medicine Work Phone: Start: 08-03-2022 ambulatory SWITCH HOUSE OPERATOR JORDYN THAKUR F acility:[id number] Start: 06-14-2022 Office outpatient vi sit 15 minutes Jordyn Thakur Work Phone: [facility] Internal Medicine Work Phone: Start: 06-14-2022 ambulatory SWITCH HOUSE OPERATOR JORDYN Sue acility:[id number] Start: 06-07-2022 End: 06-11-2022 ambulatory [facility] Start: 06-06-2022 ambulatory SWITCH HOUSE OPERATOR JORDYN Sue acility:[id number] Start: 06-06-2022 Office outpatient vi sit 10 minutes Jordyn Ramirez Work Phone: [facility] Internal Medicine Work Phone: Start: 05-23-[address] Kemi Paul ility:[id number] Start: 05-10-2022 End: 05-14-2022 ambulatory [facility] Ambulatory Start: 05-02-2022 Office outpatient vi sit 25 minutes Jordyn Ramirez Work Phone: [facility] Internal Medicine Work Phone: Start: 05-02-2022 ambulatory SWITCH HOUSE OPERATOR JORDYN Sue acility:[id number] Start: 04-25-2022 End: 04-25-2022 ambulatory [facility] Ambulatory Start: 04-25-2022 End: 04-25-2022 [facility]SE OPER[facility] Work Phone: [facility] Comment on above: Closed nondisplaced fracture of distal phalanx of left middle finger, initial encounter (Primary Dx) Start: 04-24-2022 End: 04-24-2022 Emergency department patient visit STANLEY LOO [facility] Start: 03-15-2022 Chart Update Jordyn Ramirez Work Phone: [facility] Internal Medicine Work Phone: Start: 03-03-2022 Office outpatient ne w 45 minutes Jordyn Ramirez Work Phone: [facility] Internal Medicine Work Phone: Start: 01-04-2021 End: 01-04-2021 Emergency department patient visit Alie Yadira [facility] Emergency 13 Start: 04-01-2019 End: 04-01-2019 Emergency department patient visit DILIA BURNS [facility] Start: 10-27-2018 End: 10-27-2018 Emergency department patient visit Page Ferris Facility:[facility] Start: 04-01-2018 End: 04-02-2018 Emergency department patient visit Page Ferris Facility:[facility] Start: 01-24-2018 End: 01-24-2018 Emergency department patient visit Page Ferris Facility:[facility] Procedures Date Procedure Procedure Detail Performing Clinician [...] panel - Urine Qualitative by Automated Bela [employer] Work Phone: Start: 06-19-2023 Urine test visual color cmprsn meths Bela López Linio Work Phone: Start: 06-19-2023 Urnls dip stick/tabl et reagent auto microscopy Bela [employer] Work Phone: Start: 05-18-2023 Bacteria identified in Urine by Culture OJRDYN HTAKUR Start: 05-18-2023 POCT UA AUTOMATED MA NUALLY RESULTED JORDYN THAKUR Start: 05-18-2023 Urnls dip stick/tabl et rgnt auto w/o microscopy Jordyn Thakur INFORMATION SERVICES TECH-SWITCH HOUSE OPERATOR Work Phone: Start: 04-14-2023 Lipid 1996 panel - S charley or Plasma Kemi Echevarria MD Work Phone: Start: 03-10-2022 Lipid 1996 panel - S charley or Plasma Jordyn Thakur INFORMATION SERVICES TECH-SWITCH HOUSE OPERATOR Work Phone: Start: 01-04-2021 End: 01-04-2021 EKG impression Beverly Hannah Extraction of wisdom tooth A my Jason Ramirez Work Phone: Comment on above: x 4 extracted 4 year s ago; Plan of Treatment Date Care Activity Detail Author Start: 2050 Zoster Vaccines (1 of 2) Zoste r Vaccines (1 of 2) [facility] Start: 04-14-2028 Lipid panel Lipid Panel [facility] Start: 03-10-2027 Lipid panel Lipid Panel [facility] Start: 04-11-2024 End: 04-11-2024 Patient encounter procedure 04/11/2024 4:20 PM EDT Office Visit [facility] [address] [place] [id number] Jordyn Thakur, INFORMATION SERVICES TECH-SWITCH HOUSE OPERATOR [address] [place] [address] [facility] Start: 03-31-2024 DTaP/Tdap/Td Vaccine s (7 - Td or Tdap) DTaP/Tdap/Td Vaccines (7 - Td or Tdap) [facility] Start: 03-31-2024 Tetanus vaccination Tetanus: Every 1 0yrs [facility] Start: 01-20-2024 Influenza vaccination Influenza Vacc ine (#1) [facility] Comment on above: Postponed from 03/23 (Patient Refused) Start: 10-22-2023 End: 10-22-2023 Patient encounter procedure 10/22/2023 3:30 PM EDT Office Visit [facility] Medical Office [facility] [address] [place] [address] Anika Richardson MD [address] [facility], [facility] [address] [place] [id number] [facility] Medical Office Building Start: 10-17-2023 End: 10-17-2023 Patient encounter procedure 10/17/2023 1:00 PM EDT Office Visit [facility] Medical Office Building [address] [place] [address] Mari Hensley MD [address] [facility] [address] [place], [place] [id number] [facility] Medical Office Building Start: 10-10-2023 End: 10-10-2023 Telemedicine consultation with patient 10/10/2023 3:40 PM EDT Telemedicine [facility] [address] [place] [phone] Jordyn Thakur, INFORMATION SERVICES TECH-SWITCH HOUSE OPERATOR [address] [place] [address] [facility] Start: 08-27-2023 End: 08-21-2024 Progesterone [Mass/volume] in Serum or Plasma Progesterone Lab Routine Family planning counseling Expected: 08/27/2023 (Approximate), Expires: 08/21/2024 [facility] Service Area Work Phone: Comment on above: Expected: 08/27/2023 (Approximate), Expires: 08/21/2024 Start: 07-13-2023 End: 07-13-2023 Patient encounter procedure 07/13/2023 9:00 AM EST Office Visit [facility] [address] [facility] [place] [phone] Jordyn Thakur, INFORMATION SERVICES TECH-SWITCH HOUSE OPERATOR [address] [facility] [place] [address] [facility] Start: 07-03-2023 End: 07-03-2023 Patient encounter procedure 07/03/2023 2:15 PM EST Office Visit [facility] Physician Kobe [address] [facility] [address] [place] [address] Lola Devine MD MPH [address] [facility], [facility] [address] [place], [place] [phone] [facility] Kobe Start: 05-18-2023 End: 05-25-2023 Bacteria identified in Urine by Culture [facility] Service Area Work Phone: Comment on above: Expected: 05/18/2023 (Approximate), Expires: 05/25/2023 Start: 04-09-2023 End: 04-09-2024 oxyCODONE Immediate Release 5 mg Oral Tablet Every 4 Hours ; Tablet (OXYIR, ROXICODONE)DOSE = 5 mg Oral Every 4 Hours, PRN Pain - Severe (7-10) Start: 09-Apr-2023 End: 08-Apr-2024 Ordered: 09-Apr-2023 Delgado Nix Intent [facility] Start: 04-09-2023 End: 04-09-2024 [facility] Start: 03-06-2023 FUV, Provider: Jordyn Ramirez, Status: Pen, Time: 2:40 PM FUV, Provider: Jordyn Ramirez, Status: Pen, Time: 2:40 PM [facility] Internal [facility] Work Phone: Start: 03-06-2023 FUV, Provider: Jordyn Thakur, Status: Pen, Time: 2:40 PM FUV, Provider: Jordyn Thakur, Status: Pen, Time: 2:40 PM [facility] Work Phone: Start: 03-06-2023 Patient encounter procedure Outpatient [facility] Start: 06-Mar-2023 14:40 Jordyn Thakur Intent [facility] Start: 03-06-2023 End: 03-06-2023 Patient encounter procedure 03/06/2023 2:40 PM EDT Office Visit [facility] [address] [place] [phone] Jordyn Thakur D, INFORMATION SERVICES TECH-SWITCH HOUSE OPERATOR [address] [place] [address] [facility] Start: 10-26-2022 Screening for Chlamy ankita trachomatis Chlamydia Screening [facility] Start: 09-14-2022 FUV, Provider: Jordyn Thakur, Status: Pen, Time: 2:20 PM FUV, Provider: Jordyn Thakur, Status: Pen, Time: 2:20 PM [facility] Work Phone: Start: 09-14-2022 Patient encounter procedure [facility] Start: 08-31-2022 Patient encounter procedure [facility] Start: 08-10-2022 NPV, Provider: Jocelyne Long, Status: Pen, Time: 1:00 PM NPV, Provider: Jocelyne Long, Status: Pen, Time: 1:00 PM [facility] Medicine Work Phone: Start: 05-23-2022 FUV, Provider: Kemi Echevarria, Status: Pen, Time: 2:00 PM FUV, Provider: Kemi Echevarria, Status: Pen, Time: 2:00 PM [facility] Work Phone: Start: 05-10-2022 End: 05-10-2022 Patient encounter procedure 05/10/2022 Office Visit Sports Medicine Joselin Noyola, SWITCH HOUSE OPERATOR [address] [place] [address] [facility] Start: 03-31-2022 FUV, Provider: Jordyn Ramirez, Status: Pen, Time: 2:20 PM FUV, Provider: Jordyn Ramirez, Status: Pen, Time: 2:20 PM [facility] Internal Medicine Work Phone: Start: 03-23-2022 Influenza vaccination [facility] Start: 2021 Screening for malign ant neoplasm of cervix [facility] Start: 12-14-2021 History and physical examination, annual for health maintenance Wellness Visit [facility] Start: 2018 [facility] Start: 12-29-2015 HIV screening HIV Screening [facility] Start: 2012 Depression screening using PHQ-9 (Patient Health Questionnaire 9) score Depression Screening (PHQ-2/9) [facility] Start: 2006 Pneumococcal Vaccine : Pediatrics (0 to 5 Years) and At-Risk Patients (6 to 64 Years) (1 - PCV) Pneumococcal Vaccine: Pediatrics (0 to 5 Years) and At-Risk Patients (6 to 64 Years) (1 - PCV) [facility] Start: 12-29-2003 Well Child Visit (WC V) - Annual Well Child Visit (WCV) - Annual [facility] Start: 06-29-2001 COVID-19 Vaccine (#1) COVID-19 Vacci ne (#1) [facility] Start: 2000 Hearing Screening (#1) Hearing Scrego ladd (#1) [facility] Start: 2000 HIV screening HIV Screening [facility] Start: 2000 Screening for Chlamy ankita trachomatis Chlamydia and Gonorrhea Screening [facility] Start: 2000 Screening for malign ant neoplasm of cervix Pap Smear [facility] Start: 2000 Yearly Adult Physical Yearly Adult P hysical [facility] End: 06-19-2023 Bacteria identified in Urine by Culture [facility] Work Phone: Comment on above: Once (Lab) for 1 Occ urrences starting 06/19/2023 until 06/19/2023 End: 06-19-2023 Extra Urine Brody Tube [facility] Work Phone: Comment on above: Once for 1 Occurrenc es starting 06/19/2023 until 06/19/2023 End: 06-19-2023 Urinalysis complete W Reflex Culture panel - Urine [facility] Service Area Work Phone: Comment on above: Once (Lab) for 1 Occ urrences starting 06/19/2023 until 06/19/2023 Immunizations Immunization Date Immunization Notes Care Provider Radha mejia 04-11-2019 measles, mumps and rubella virus vaccine Jordyn Thakur Work Phone: [facility] Internal Medicine Work Phone: 04-11-2019 varicella virus vaccine Jordyn Thakur Work Phone: [facility] Internal Medicine Work Phone: 08-08-2018 meningococcal B vacc ine, recombinant, OMV, adjuvanted Jordyn Thakur Work Phone: [facility] Internal Medicine Work Phone: 04-17-2018 hepatitis A vaccine, pediatric/adolescent dosage, 2 dose schedule Jordyn Thakur Work Phone: [facility] Internal Medicine Work Phone: 04-17-2018 meningococcal B vacc ine, recombinant, OMV, adjuvanted Jordyn Thakur Work Phone: [facility] Work Phone: 04-02-2017 hepatitis A vaccine, pediatric/adolescent dosage, 2 dose schedule Jordyn Thakur Work Phone: [facility] Internal [facility] Work Phone: 04-02-2017 Human Papillomavirus 9-valent vaccine Jordyn Thakur Work Phone: [facility] Medicine Work Phone: 04-02-2017 meningococcal polysaccharide (groups A, C, Y and W-135) diphtheria toxoid conjugate vaccine (MCV4P) Jordyn Thakur Work Phone: [facility] Work Phone: 01-14-2015 HPV, unspecified formulation Jordyn Thakur Work Phone: [facility] Work Phone: 01-14-2015 varicella virus vaccine Jordyn Thakur Work Phone: [facility] Work Phone: 03-31-2014 meningococcal polysaccharide (groups A, C, Y and W-135) diphtheria toxoid conjugate vaccine (MCV4P) Jordyn Thakur Work Phone: [facility] Work Phone: 03-31-2014 tetanus toxoid, redu karina diphtheria toxoid, and acellular pertussis vaccine, adsorbed Jordyn Thakur Work Phone: [facility] Work Phone: 06-18-2009 novel Influenza-H1N1 -09, live virus for nasal administration Jordyn Thakur Work Phone: [facility] Work Phone: 06-18-2009 influenza virus vacc ine, unspecified formulation Jordyn Thakur INFORMATION SERVICES TECH-SWITCH HOUSE OPERATOR Work Phone: [facility] Work Phone: 04-12-2007 diphtheria, tetanus toxoids and acellular pertussis vaccine Jordyn Jason Thakur Work Phone: [facility] Internal Medicine Work Phone: 04-12-2007 measles, mumps and rubella virus vaccine Jordyn Thakur Work Phone: [facility] Medicine Work Phone: 04-12-2007 poliovirus vaccine, inactivated Jordyn Jason Thakur Work Phone: [facility] Internal Medicine Work Phone: 05-18-2003 pneumococcal conjuga te vaccine, 7 valent Jordyn Jason Thakur Work Phone: [facility] Medicine Work Phone: 08-22-2002 diphtheria, tetanus toxoids and acellular pertussis vaccine, unspecified formulation Jordyn Gomez Simon Work Phone: [facility] Medicine Work Phone: 12-23-2001 diphtheria, tetanus toxoids and acellular pertussis vaccine, unspecified formulation Jordyn Jason Simon Work Phone: [facility] Medicine Work Phone: 12-23-2001 haemophilus influenz ae type b vaccine, conjugate unspecified formulation Jordyn Jason Simon Work Phone: [facility] Medicine Work Phone: 12-23-2001 hepatitis B vaccine, pediatric or pediatric/adolescent dosage Jordyn Gomez Thakur Work Phone: [facility] Medicine Work Phone: 12-23-2001 measles, mumps and rubella virus vaccine Jordyn Jason Simon Work Phone: [facility] Internal Medicine Work Phone: 12-23-2001 pneumococcal conjuga te vaccine, 7 valent Jordyn Thakur Work Phone: [facility] Medicine Work Phone: 12-23-2001 poliovirus vaccine, inactivated Jordyn Thakur Work Phone: [facility] Medicine Work Phone: 12-23-2001 varicella virus vaccine Jordyn Thakur Work Phone: [facility] Medicine Work Phone: 06-12-2001 diphtheria, tetanus toxoids and acellular pertussis vaccine, unspecified formulation Jordyn Thakur Work Phone: [facility] Medicine Work Phone: 06-12-2001 haemophilus influenz ae type b vaccine, conjugate unspecified formulation Jordyn Thakur Work Phone: [facility] Internal Medicine Work Phone: 06-12-2001 hepatitis B vaccine, pediatric or pediatric/adolescent dosage Jordyn Thakur Work Phone: [facility] Medicine Work Phone: 06-12-2001 poliovirus vaccine, inactivated Jordyn Jason Simon Work Phone: [facility] Medicine Work Phone: 03-28-2001 diphtheria, tetanus toxoids and acellular pertussis vaccine, unspecified formulation Jordyn Thakur Work Phone: [facility] Medicine Work Phone: 03-28-2001 haemophilus influenz ae type b vaccine, conjugate unspecified formulation Jordyn Thakur Work Phone: [facility] Medicine Work Phone: 03-28-2001 hepatitis B vaccine, pediatric or pediatric/adolescent dosage Jordyn Thakur Work Phone: [facility] Medicine Work Phone: 03-28-2001 pneumococcal conjuga te vaccine, 7 valent Jordyn Jason Thakur Work Phone: [facility] Internal Medicine Work Phone: 03-28-2001 poliovirus vaccine, inactivated Jordyn Jason Thakur Work Phone: [facility] Medicine Work Phone: Payers Date Payer Category Payer Private Health Insurance [id number] 2020 Medicaid [facility] MANAGED [facility] MEDICAID COMMUNITY PLAN [id number] 2020-Present [phone] [address] [place] [address] [id number] 2019 Medicaid [id number] 2019 Medicaid [id number] 2018 Unknown 2000 Unknown [id number] 2.16.840.1.114798.3.579.2. 651 2000 Unknown [id number] 2.16.840.1.342278.3.579.2. 903 2000 Unknown [id number] 2.16.840.1.005460.3.579.2. 903 2000 Unknown [id number] 2.16.840.1.462362.3.579.2. 903 2000 Unknown [id number] 2.16.840.1.851271.3.579.2. 903 2000 Unknown [id number] 2.16.840.1.085049.3.579.2. 903 2000 Unknown [id number] 2.16.840.1.613190.3.579.2. 903 2000 Unknown [id number] 2.16.840.1.832052.3.579.2. 902 2000 Unknown [id number] 2.16.840.1.504342.3.579.2. 902 2000 Unknown [id number] 2.16.840.1.000854.3.579.2. 902 2000 Unknown [id number] 2.16.840.1.755704.3.579.2. 356 2000 Unknown [id number] 2.16.840.1.158827.3.579.2. 356 2000 Unknown [id number] 2.16.840.1.516264.3.579.2. 356 2000 Unknown [id number] 2.16.840.1.402530.3.579.2. 356 2000 Unknown [id number] 2.16.840.1.221979.3.579.2. 356 2000 Unknown [id number] 2.16.840.1.978487.3.579.2. 356 2000 Unknown [id number] 2.16840.1.147626.3.579.2. 1068 2000 Unknown [id number] 2.16840.1.275305.3.579.2. 1068 2000 Unknown [id number] 2.16840.1.000728.3.579.2. 1068 2000 Unknown [id number] 2.16840.1.718256.3.579.2. 1068 2000 Unknown [id number] 2.16840.1.940316.3.579.2. 1244 2000 Unknown [id number] 2.16840.1.874136.3.579.2. 1242 2000 Unknown [id number] 2.16840.1.662243.3.579.2. 1243 2000 Unknown [id number] 2.16840.1.749281.3.579.2. 1243 2000 Unknown [id number] 2.16840.1.975770.3.579.2. 1243 2000 Unknown [id number] 2.16840.1.283967.3.579.2. 1243 2000 Unknown [id number] 2.16840.1.846792.3.579.2. 1243 2000 Unknown [id number] 2.16840.1.469382.3.579.2. 4 2000 Unknown [id number] 2.16.840.1.142664.3.579.2. 1244 2000 Unknown [id number] 2.16.840.1.649426.3.579.2. 1244 2000 Unknown [id number] 2.16.840.1.354137.3.579.2. 727 2000 Unknown [id number] 2.16.840.1.943945.3.579.2. 727 1983 Unknown [id number] 2.16.840.1.220682.3.579.2. 717 1983 Unknown [id number] 2.16.840.1.202775.3.579.2. 717 1983 Unknown [id number] 2.16.840.1.668483.3.579.2. 717 Self-pay [id number] Unknown [id number] Social History Date Type Detail Facility [facility] Tobacco smoking consumption unknown [facility] Start: 10-03-2022 End: 09-19-2023 Nicotine dependence due to vaping tobacco product Nicotine dependence due to vaping tobacco product [facility] Internal Medicine Work Phone: Start: 2000 Sex Assigned At Not on file [facility] Start: 04-15-2022 End: 08-21-2023 Exposure to SARS-CoV-2 (event) Not sure [facility] Start: 10-03-2022 Tobacco smoking stat us NHIS Never smoked tobacco [facility] Work Phone: Start: 10-03-2022 End: 08-21-2023 Tobacco use and exposure Smokeless tobacco non-user [facility] Work Phone: Start: 10-20-2022 End: 05-18-2023 Alcohol intake Current drinker of alcohol (finding) [facility] Work Phone: Start: 10-03-2022 End: 09-19-2023 Tobacco use panel [facility] Work Phone: Start: 04-23-2023 Alcohol Comment RARE [facility] Work Phone: Start: 01-19-2021 Tobacco smoking stat us NHIS Smokes tobacco daily [facility] Start: 01-19-2021 End: 08-14-2023 History of tobacco use Cigarette Smoker [facility] Work Phone: History of tobacco use Pipe Smoker [facility] Work Phone: Start: 08-21-2023 End: 10-10-2023 Alcohol intake Ex-drinker (finding) [facility] Work Phone: Start: 08-21-2023 Tobacco Comment I vape. [facility] Work Phone: Start: 08-21-2023 Alcohol Comment I drink once e very few momths [facility] Work Phone: Start: 09-09-2023 End: 10-10-2023 Exposure to SARS-CoV-2 (event) Unable to assess [facility] Work Phone: Tobacco smoking status No Smokin g Status Entered [facility] Functional Status Date Assessment Result Facility Functional observable [facility] Mental Status Date Assessment Result Facility 04-11-2023 Cognitive functions 0239:29 [facility] Clinical Notes 03-03-2021 to 10-10-2023 Jordyn Thakur APRN-KARLENE - 10/10/2023 3:40 PM Arianna Richardson MD [...] up as before documented in this encounter [facility] Work Phone: 09-22-2023 Evaluation + Plan note Diagnostic Tests PendingAnti-Mullerian Hormone (AMH) 09/22/23FSH and LH 09/22/23Insulin Level Total 09/22/23 [facility] 08-21-2023 History of Present illness Narrative [...] Procedure Laterality Date OTHER SURGICAL HISTORY 03/03/2022 [place] tooth extraction Review of Systems: Constitutional: No [...] Dose Status busPIRone (Buspar) 5 mg tablet [id number] No Take by mouth 3 times a day as needed. Historical ProviderMD Taking Active citalopram (CeleXA) 40 mg tablet [id number] Take 1 tablet (40 mg) by mouth once daily. MYKE Amaya Active nitrofurantoin (Macrodantin) 100 mg capsule [id number] No take 1 capsule twice a day for 3 to 7 days Historical Provider, Taking Active omeprazole (PriLOSEC) [address] capsule [id number] No Take 1 capsule (20 mg) by [...] 08/21/2024 Order Specific Question: Release result to [facility] Answer: Immediate [1] Problem List Items Addressed [...] for annual exam. documented in this encounter [facility] Work Phone: 06-19-2023 Emergency department Note [...] Procedure Laterality Date OTHER SURGICAL HISTORY 03/03/2022 [place] tooth extraction Family History Problem Relation Name [...] health. Procedure Procedures Bela López PA-C 06/19/231810 documented in this encounter [facility] Work Phone: 06-19-2023 Physician Emergency department [...] Procedure Laterality Date OTHER SURGICAL HISTORY 03/03/2022 [place] tooth extraction Family History Problem Relation Name [...] health. Procedure Procedures Bela López PA-C 06/19/231810 [facility] Work Phone: 05-18-2023 History of Present [...] up as before documented in this encounter [facility] Work Phone: 04-23-2023 History of Present [...] mon with PCP. documented in this encounter [facility] Work Phone: 04-11-2023 Note Send Summary: Discharge Summary Providers: Provider RoleProvider Name Bautista Foy Logeswari PrimaryConley, Amy PrimaryMcArdle, Joyce Note Recipients: Jordyn Thakur [facility]ED[facility] [phone] [Preferred] Discharge: Summary: Admission Date: .09-Apr-2023 10:40:00 Discharge Date: 11-Apr-2023 Attending Physician at Discharge: Bautista villanueva Admission Reason: Flank pain Final Discharge Diagnoses: Pyelonephritis, acute kidney injury Procedures: none Vital Signs: T PRBPMAPSpO2 [id number]/894459% Date/Time04/11 8: 8: 8: 8: 16:009 8:00 Range(36.6C - 37.6C ) (70 - 81 ) (16 - 18 ) (107 - 122 )/ (70 - 84 ) (82 - 85 ) (98% - 99% ) Highest temp of 37.6 C was recorded at 04/11 0:00 Date: Weight/Scale Type:Height: 09-Apr-2023 15:5454 kg / mkj739.1 cm Physical Exam: General: Not in acute [...] if there are errors there due to cement handler. Bautista Villanueva Hospitalist Discharge Information: and Continuing Care: Lab Results - Pending: Culture, Blood Drawn at 09-Apr-2023 14:05:00 Culture, Blood Drawn at 09-Apr-2023 14:05:00 Radiology Results - Pending: None Discharge Instructions: Activity: activity as tolerated. May shower.. November drive.. Nutrition/Diet: resume normal diet Follow Up [...] Last Updated: 11-Apr-2023 09:36 by Bautista Villanueva) [facility] 04-11-2023 Hospital Discharge instructions Activity:activity as tolerated. May shower. May drive.Follow Up Appointment 1:Physician/Dept/Service: Primary care provider Jordyn Maurer for Referral: Pyelonephritis, acute kidney injuryCall to Schedule in: [address] Djbcbpzl: She will call and make her own appointment. [facility] 04-09-2023 Note History of Present I [...] are negative Objective: Objective Information: T PRBPMAPSpO2 Value36.01466941/8897% Date/Time04/09 10: 14: 14: 14: 14:12 Range(36.5C - 36.5C ) (69 - 81 ) (16 - 16 ) (123 - 133 )/ (88 - 96 ) (97% - 97% ) Pain reported at 04/09 10:48: 3 = Mild T PRBPMAPSpO2 [id number]/[id number]% Date/Time04/09 16: 16: 16: 16: 16: 16:00 [...] PMH presenting w/abdominal and flank pain; noted w/CRALA and pyelonephritis after recent outpatient treatment for [...] continue maintenance flu (more content not included)... [facility] 04-25-2022 History of Present illness Narrative [facility] [address] [facility] [address] [facility] [id number] Chief Complaint Patient presents with Left Hand [...] Strength Wrist extension: 5/5 Wrist flexion: 5/5 Kicking Machine Operator: 3/5 Other Erythema: absent Scars: absent Sensation: [...] medications as needed. documented in this encounter [facility] 03-02-2022 History of Present illness Narrative INCONSISTENT SLEEP AT NIGHT SEVERAL TIMES / WEEK . WAKES UP WITH COLD SWEATS., AND DIZZINESS.0N AND OFF. MISSED PERIOD , LAST ONE WAS 2 MONTHS AGO. STOPPED GETTING DEPO SHOT ALMOST 2.5 MONTHS AGO. [facility] Internal Medicine Work Phone: 01-01-2022 History of Present illness Narrative ANXIETY , NO PANIC ATTACKS SINCE LAST VISIT.. HASN'T BEEN TAKING THE PRN BUSPAR . CONTROL TX WAS STOPPED SEVERAL MONTHS AGO BUT MENSES ARE NOT BACK MONTHLY..WEIGHT GAIN. [facility] Internal Medicine Work Phone: 11-20-2021 History of Present illness Narrative Presents today for C/O SPOTTING FOR SEVERAL DAYS modifying factors consists of STOPPED THE DEPO SHOT WAS NOVEMBER 2021. SHE HAS NOT RESUMED HER PERIODS. NEGATIVE HOME TEST associated symptoms consist of CRAMPING ON/OFF prior treatment consists of medication NONE [facility] Internal Medicine Work Phone: 03-03-2021 History of Present illness Narrative Presents today TO ESTABLISH NEW. C/O ANXIETY SEVERAL DAYS PPER WEEK X SEVERAL YEARS THAT HAS RECENTLY INCREASED OVER THE PAST 1 YEAR modifying factors consists of PANIC ATTACKS ON/OFF associated symptoms consist of DENIES DEPRESSION OR SUICIDAL IDEATION prior treatment consists of medication DOES NOT REMEMBER THE NAMEGERD- STABLE. MED REFILL [facility] Internal Medicine Work Phone: Evaluation note Diagnosis Closed nondisplaced fracture of distal phalanx of left middle finger, initial encounter- [facility] Vaginal yeast infection- Primary Candidiasis of vulva and vagina documented in this encounter [facility] Work Phone: Evaluation note* Diagnosis H/O urinary tract infection- Primary Generalized anxiety disorder with panic attacks documented in this encounter [facility] Work Phone: Evaluation note* Diagnosis Urinary frequency- Primary Urinary tract infection with hematuria, site unspecified Generalized anxiety disorder with panic attacks Gastroesophageal reflux disease without esophagitis Esophageal reflux documented in this encounter [facility] Work Phone: Evaluation note* Diagnosis Urinary tract infection without hematuria, site unspecified- Primary documented in this encounter [facility] Work Phone: Evaluation note* Diagnosis Family planning counseling- Primary Other general counseling and advice for contraceptive management documented in this encounter [facility] Work Phone: Evaluation note* Diagnosis Generalized anxiety disorder with panic attacks- Primary documented in this encounter [facility] Work Phone: Evaluation note* Diagnosis Nausea- Primary Nausea alone Nasal congestion Other diseases of nasal cavity and sinuses Acute non-recurrent sinusitis, unspecified location documented in this encounter [facility] Work Phone: Evaluation note* Diagnosis Generalized anxiety disorder with panic attacks documented in this encounter [facility] Work Phone: History of Present illness Narrative* Jordyn Thakur, INFORMATION SERVICES TECH-SWITCH HOUSE OPERATOR - 10/20/2022 3:00 PM EDT Subjective Patient [...] Follow up as before [facility]: History of Present illness Narrative* MYKE Amaya - 09/12/2023 3:40 PM EST Subjective Patient ID: Luz Hinojosa is a 22 y.o. female who presents for Anxiety (Pt c/o of anxiety medication not working ). VIRTUAL APPOINTMENT BEING PERFORMED DUE TO COVID-19 (CORONAVIRUS) HPI: Presents today for C/O INCREASED ANXIETY OVER THE PAST FEW WEEKS. modifying factors consists of SHENO LONGER FEELS HER MEDS ARE HELPING associated [...] 1 MONTH MED CHECK documented in this [facility] Work Phone: History of Present illness [...] Follow up as before [facility] Hospital course Narrative No data available for this section [facility] Discharge instructions No data available for this section [facility] No data available for this section [facility] (narrative)* Consultation (Routine) - Pending Review Specialty Diagnoses / Procedures Referred By Claritza macias Referred To Contact Obstetrics and Gynecology / Urology Diagnoses Urinary frequency Jordyn Thakur, INFORMATION SERVICES TECH-SWITCH HOUSE OPERATOR [address] [place] [place] [address] Referral ID Status Reason Start Date Expiration Date Visits Requested Visits Authorized [id number] Pending Review Specialty Services Required 05/17/2024 1 1 Electronically signed by Jordyn Thakur INFORMATION SERVICES TECH-SWITCH HOUSE OPERATOR at 05/18/2023 10:53 AM T [facility] Work Phone: Summary Purpose Family History [...] Specialty Diagnoses / Procedures Referred By Claritza t Referred To Contact Diagnoses Generalized anxiety disorder with panic attacks Jordyn Thakur, INFORMATION SERVICES TECH-SWITCH HOUSE OPERATOR [address] [place] [address] Referral ID Status Reason Start Date Expiration Date Visits Re quested Visits Authorized [id number] Closed 1 1 Additional Source Comments INFORMATION SOURCE (unrecogn ized section and content) DATE CREATED AUTHOR 10/28/2018 [facility] DATE CREATED AUTHOR AUTHOR'S ORGANIZ ATION 04/08/2019 [facility] DATE CREATED AUTHOR AUTHOR'S ORGANIZ ATION 10/29/2021 [facility] DATE CREATED AUTHOR AUTHOR'S ORGANIZ ATION 06/11/2022 [facility] DATE CREATED AUTHOR AUTHOR'S ORGANIZ ATION 08/04/2022 [facility] DATE CREATED AUTHOR AUTHOR'S ORGANIZ ATION 04/02/2023 [facility] nter DATE CREATED AUTHOR AUTHOR'S ORGANIZ ATION 04/16/2023 [facility] ical Center DATE CREATED AUTHOR AUTHOR'S ORGANIZ ATION 05/09/2023 [facility] DATE CREATED AUTHOR AUTHOR'S ORGANIZ ATION 09/03/2023 [facility] DATE CREATED AUTHOR AUTHOR'S ORGANIZ ATION 11/02/2023 [facility] DATE CREATED AUTHOR AUTHOR'S ORGANIZ ATION 12/16/2023 [facility] DATE CREATED AUTHOR AUTHOR'S ORGANIZ ATION 01/11/2024 [facility] ical Center DATE CREATED AUTHOR AUTHOR'S ORGANIZ ATION 01/13/2024 [facility] <item><item><item><item><item> Privacy Markings (unrecogniz ed section and [...] Care Teams (unrecognized sec tion and content) Poker Room Manager Relationship Specialty Start Date End Date Jordyn Ramirez, SWITCH HOUSE OPERATOR [address] [place] [address] PCP - General Nurse Practitioner 04/25/22 Poker Room Manager Relationship Specialty Start Date End Date Jordyn Thakur APRN-KARLENE [address] [place] [address] PCP - General 03/03/22 Poker Room Manager Relationship Specialty Start Date End Date Jordyn Thakur APRN-CNP [address] [place] [address] PCP - General 03/03/22 Jordyn Thakur APRN-KARLENE [address] [place] [address] PCP - [facility] Medicaid PCP 10/21/22 Claudia Quick, tapper helperNight Auditor 04/12/23 Poker Room Manager Relationship Specialty Start Date End Date Jordyn Thakur, INFORMATION SERVICES TECH-SWITCH HOUSE OPERATOR [address] [place] [address] PCP - General 03/03/22 Jordyn Thakur, INFORMATION SERVICES TECH-SWITCH HOUSE OPERATOR [address] [place] [address] PCP - [facility] Medicaid PCP 10/21/22 Claudia Quick, tapper helperNight Auditor 04/12/23 Poker Room Manager Relationship Specialty Start Date End Date Jordyn Thakur, INFORMATION SERVICES TECH-SWITCH HOUSE OPERATOR [address] [place] [address] PCP - General 03/03/22 Jordyn Thakur, INFORMATION SERVICES TECH-SWITCH HOUSE OPERATOR [address] [place] [address] PCP - [facility] Medicaid PCP 10/21/22 Claudia Quick, tapper helperNight Auditor 04/12/23 Poker Room Manager Relationship Specialty Start Date End Date Jordyn Thakur, INFORMATION SERVICES TECH-SWITCH HOUSE OPERATOR [address] [place] [address] PCP - General 03/03/22 Jordyn Thakur, INFORMATION SERVICES TECH-SWITCH HOUSE OPERATOR [address] [place] [address] PCP - [facility] Medicaid PCP 10/21/22 Poker Room Manager Relationship Specialty Start Date End Date Jordyn Thakur, INFORMATION SERVICES TECH-SWITCH HOUSE OPERATOR [address] [place] [address] PCP - General 03/03/22 Jordyn Thakur, INFORMATION SERVICES TECHEDITH [facility] [address] [place] [address] PCP - [facility] Medicaid PCP 10/21/22 Poker Room Manager Relationship Specialty Start Date End Date Jordyn Thakur, INFORMATION SERVICES TECHEDITH [facility] [address] [place] [address] PCP - [facility] 03/03/22 Jordyn Thakur, INFORMATION SERVICES TECHED[facility] [address] [place] [address] PCP - [facility] Medicaid PCP 10/21/22 Poker Room Manager Relationship Specialty Start Date End Date Jordyn Thakur, INFORMATION SERVICES [facility]ED[facility] [address] [place] [address] PCP - General 03/03/22 Jordyn Thakur, INFORMATION SERVICES TECH-[facility] [address] [place] [address] PCP - [facility] Medicaid PCP 10/21/22 Scheduled Active and Recently Administ ered Medications (unrecognized section and content) Medication Order 06/17/2023 06/18/2023 06/19/2023 cephalexin (Keflex) capsule 500 mg (COMPLETED) 500 mg, oral, Once, On Sun06/19/23 at 1805, For 1 dose, Suspected Indication (Select all that apply): Urinary Tract Infection, Type of Therapy: Definitive, No Cultures, Type of Urinary Tract Infection: Uncomplicated 1822 (Given - Provid er: Kusum Villegas RN) [...] BE BASED ON THE PRIMARY CLINICAL RECORDS. [facility] [email or web address] [facility]. provides no warranty or guarantee of the accuracy or completeness of information in this document.
--- NOTE | 2024-01-15 22:10 | ED_ITS ---
HPI HPI - General Adult General Chief complaint: Headache Stated complaint: Headache, 6-wks Time Seen by Provider: 01/15/24 21:49 Source: patient Mode of arrival: walk-in History of Present Illness HPI narrative: This 23-year-old female presents for evaluation of intermittent headaches for the past 1-1 and weeks. She is approximately 6 and half weeks . She has intermittently been using Tylenol. She states at times the headaches is global and at times it is on the right frontal parietal aspect of her scalp. She denies any thunderclap presentation of the headache. She has not had a fever. She has no neck pain or stiffness. She has not seen her SET UP / OPERATOR yet. She states she does have intermittent abdominal cramping but is not worried about that. She is not having any vaginal bleeding or discharge. She denies any urinary symptoms. She last took Tylenol earlier this morning. Upon arrival she does complain of a bitemporal headache. She states she has been having nausea but no vomiting or diarrhea. She feels that she is keeping up with her fluids. Related Data Home Medications ?Medication ?Instructions ?Recorded ?Confirmed escitalopram oxalate 10 mg tablet 10 mg PO QDAY 10/31/23 11/29/23 metformin 500 mg tablet,extended 500 mg PO BID 10/31/23 11/29/23 release 24 hr omeprazole 20 mg capsule,delayed 20 mg PO QAM 10/31/23 11/29/23 release ondansetron HCl 4 mg tablet 4 mg PO Q6H PRN nausea and vomiting 10/31/23 10/31/23 clomiphene citrate 50 mg tablet mg 11/29/23 (Clomid) Allergies Allergy/AdvReac Type Severity Reaction Status Date / Time paxil Allergy Mild Insomnia Uncoded 11/29/23 22:27 clonidine Allergy hives Uncoded 11/29/23 22:27 Opioid HPI Opioid Management Most Recent Opioid Data: No Data to Display Review of Systems ROS Status of ROS 10 or more systems reviewed and unremark able except as noted in history and below [facility] Medical History (Updated 01/15/24 @ 23:22 by Geri Andrews MD) GERD (gastroesophageal reflux disease) ?K21.9 - Gastro-esophageal reflux disease without esophagitis (ICD-10) Anxiety ?F41.9 - Anxiety disorder, unspecified (ICD-10) Exam Narrative Exam Narrative: Vital signs and Nursing Notes reviewed: Patient is afebrile with a normal pulse, normal blood pressure, she is not hypoxic with pulse ox of 99% on room air General: Awake, alert, oriented, no acute distress, lying comfortably on the stretcher, she is smiling, laughing, texting on her phone, no distress noted HEENT: Normocephalic atraumatic, mucous membranes are moist and pink, eyes are clear, normal conjunctiva, vision is grossly intact, posterior pharynx is normal in appearance. Tympanic membranes are normal bilaterally Neck: Supple, no meningeal signs Chest: Lungs are clear to auscultation with good air entry, there is no wheezing rhonchi or rales appreciated no accessory muscle use, patient is speaking in complete sentences-no chest wall tenderness to palpation CVS: Regular rate and rhythm S1-S2, no murmurs rubs or gallops, pulses are brisk and equal bilaterally ABD: Soft, nondistended, nontender, no rebound guarding or rigidity, bowel jenn nds are normal, no pulsatile masses appreciated Extremities: Moving all extremities, no lower extremity tenderness or swelling noted, negative Homans' sign, pulses are brisk and equal bilaterally Skin: Normal in appearance without rash,pallor, petechiae or purpura Neuro: No focal deficits Constitutional Vital Signs, click to edit/add: Last Vital Signs Temp 98.3 F 01/15/24 21:42 Pulse 99 H 01/15/24 21:42 Resp 16 01/15/24 21:42 BP 119/76 01/15/24 21:42 Pulse Ox 99 01/15/24 21:42 Course Vital Signs Vital signs: Vital Signs Temperature 98.3 F 01/15/24 21:42 Pulse Rate 99 H 01/15/24 21:42 Respiratory Rate 16 01/15/24 21:42 Blood Pressure 119/76 01/15/24 21:42 Pulse Oximetry 99 01/15/24 21:42 Temperature 98.3 F 01/15/24 21:42 Pulse Rate 99 H 01/15/24 21:42 Respiratory Rate 16 01/15/24 21:42 Blood Pressure 119/76 01/15/24 21:42 Pulse Oximetry 99 01/15/24 21:42 Medical Decision Making MDM Narrative Medical decision making narrative: This 23-year-old female who is 6 and half weeks presents for evaluation of intermittent headaches. Upon arrival she has a bitemporal headache. This headache syndrome has been present intermittently for the past 1 to 1-1/2 weeks. She has been occasionally using Tylenol. She denies any abdominal pain or vaginal bleeding. She has not been seen by Dr. Bob. This is her first . She was formally on Clomid but after getting has not been on Clomid. I did explain to her that one of the side effects of Clomid is headaches. She has no neck pain or stiffness. No fever. She was medicated emergency department with IV fluids as I considered that she may be somewhat dehydrated due to being and the heat of the summer. She was also given Tylenol Reglan and Benadryl. Routine labs are reviewed. She has a normal white count and hemoglobin. Electrolytes are normal. Urine is contaminated with squamous epithelial cells but does have bacteria and culture is pending at this time. She is feeling better and wishes to be discharged home after her ER treatment. She was encouraged to follow-up closely with Dr. Bob her SET UP / OPERATOR. Lab Data Labs: Lab Results 01/15/24 01/15/24 Range/Units 22:10 22:16 WBC 10.2 (4.0-11.0) 10^3/uL RBC 4.72 (4.20-5.40) 10^6/uL Hgb 13.9 (12.0-16.0) g/dL Hct 40.9 (36.0-48.0) % MCV 86.7 (81.0-99.0) fL MCH 29.4 (26.7-34.0) pg MCHC 34.0 (29.9-35.2) g/dL RDW 11.7 (11.0-15.0) % Plt Count 325 (150-450) 10^3/uL MPV 9.7 (9.5-13.5) fL Neut % (Auto) 64.5 (43.0-75.0) % Lymph % (Auto) 24.3 (20.5-60.0) % Ocean % (Auto) 8.5 (1.7-12.0) % Eos % (Auto) 1.9 (0.9-7.0) % Baso % (Auto) 0.6 (0.2-2.0) % Neut # (Auto) 6.6 H (1.4-6.5) 10^3/uL Lymph # (Auto) 2.5 (1.2-3.8) 10^3/uL Ocean # (Auto) 0.9 H (0.3-0.8) 10^3/uL Eos # (Auto) 0.2 (0.0-0.7) 10^3/uL Baso # (Auto) 0.1 (0.0-0.1) 10^3/uL Abs Immat Gran (auto) 0.02 (0.00-0.03) 10^3/uL Imm/Tot Granulo (auto) 0.2 (0.0-0.5) % Sodium 137 (136-145) mmol/L Potassium 3.2 L (3.5-5.1) mmol/L Chloride 102 (98-107) mmol/L Carbon Dioxide 26.3 (21.0-32.0) mmol/L Anion Gap 11.9 BUN 9.0 (7.0-18.0) mg/dL Creatinine 0.82 (0.55-1.02) mg/dL Est GFR ( Amer) >60 (>=60) Est GFR (Non-Af Amer) >60 (>=60) BUN/Creatinine Ratio 11.0 Glucose 99 (74-106) mg/dL Calcium 8.7 (8.5-10.1) mg/dL Total Bilirubin 0.4 (0.2-1.0) mg/dL AST 18 (15-37) U/L ALT 23 (14-59) U/L Alkaline Phosphatase 50 (46-116) U/L Total Protein 7.8 (6.4-8.2) g/dL Albumin 3.6 (3.4-5.0) g/dL Globulin 4.2 g/dL Albumin/Globulin Ratio 0.9 Urine Color Yellow (YELLOW) Urine Clarity Clear (CLEAR) Urine pH 6.0 (5.0-9.0) Ur Specific [place] >=1.030 A (1.005-1.025) Urine Protein Negative (NEG/TRACE) mg/dL Urine Glucose (UA) Negative (NEGATIVE) mg/dL Urine Ketones Negative (NEGATIVE) mg/dL Urine Occult Blood Negative (NEGATIVE) Urine Nitrite Negative (NEGATIVE) Urine Bilirubin Negative (NEGATIVE) Urine Urobilinogen 0.2 (0.2-1.0) EU/dL Ur Leukocyte Esterase Negative (NEGATIVE) Urine RBC 2-5 A (0-2) #/HPF Urine WBC 5-10 A (NONE SEEN) #/HPF Ur Squamous Epith Cells Moderate A (NONE/RARE) #/LPF Urine Crystals Seen A (None Seen) #/HPF Amorphous Sediment Few Urine Bacteria Large A (NONE SEEN) #/HPF Urine Casts None seen (NONE SEEN) #/LPF Urine Mucus Large A (NONE SEEN) Ur Culture Indicated? Yes Discharge Plan Discharge Stand Alone Forms: Portal Instructions Chief Complaint: Headache Clinical Impression: Headache, First trimester Patient Disposition: Home, Self-Care Time of Disposition Decision: 23:21 Condition: Good Prescriptions / Home Meds: No Action clomiphene citrate [Clomid] 50 mg tablet metformin 500 mg tablet extended release 24 hr 500 mg PO BID escitalopram oxalate 10 mg tablet 10 mg PO QDAY omeprazole 20 mg capsule,delayed release(DR/EC) 20 mg PO QAM ondansetron HCl 4 mg tablet 4 mg PO Q6H PRN (Reason: nausea and vomiting) Print Language: [place] Instructions: (ED), General Headache (ED) Referrals: Physician,Non-Staff, MD [Primary Care Provider] - 1 week
[2024-01-15] MEDS: 0.9 % SODIUM CHLORIDE 1,000 ML 1000 ML IV (22:17)
[2024-01-15] MEDS: ACETAMINOPHEN 325 MG TABLET 650 MG PO (22:18)
[2024-01-15] MEDS: DIPHENHYDRAMINE HCL 50 MG/ML VIAL 12.5 MG IV (22:19)
[2024-01-15] MEDS: METOCLOPRAMIDE HCL 10 MG/2 ML VIAL IVP (22:19)
[2024-01-15 22:25] LABS: Basophils Absolute Auto 0.1 10^3/uL (0.0-0.1); Basophils Percent Auto 0.6 % (0.2-2.0); Eosinophils Absolute Auto 0.2 10^3/uL (0.0-0.7); Eosinophils Percent Auto 1.9 % (0.9-7.0); Hematocrit 40.9 % (36.0-48.0); Hemoglobin 13.9 g/dL (12.0-16.0); Immature Granulocytes Abs Auto 0.02 10^3/uL (0.00-0.03); Immature Granulocytes Pct Auto 0.2 % (0.0-0.5); Lymphocytes Absolute Auto 2.5 10^3/uL (1.2-3.8); Lymphocytes Percent Auto 24.3 % (20.5-60.0); Mean Corpuscular Hemoglobin 29.4 pg (26.7-34.0); Mean Corpuscular Volume 86.7 fL (81.0-99.0); Mean Platelet Volume 9.7 fL (9.5-13.5); Monocytes Absolute Auto 0.9 10^3/uL (0.3-0.8); Monocytes Percent Auto 8.5 % (1.7-12.0); Neutrophils Absolute Auto 6.6 10^3/uL (1.4-6.5); Neutrophils Percent Auto 64.5 % (43.0-75.0); Platelet Count 325 10^3/uL (150-450); Red Blood Count 4.72 10^6/uL (4.20-5.40); Red Cell Distribution Width 11.7 % (11.0-15.0); White Blood Count 10.2 10^3/uL (4.0-11.0)
[2024-01-15 22:25] LABS: Bilirubin Urine NEGATIVE (NEGATIVE); Blood Urine NEGATIVE (NEGATIVE); Clarity Urine CLEAR (CLEAR); Color Urine YELLOW (YELLOW); Glucose Urine UA NEGATIVE (NEGATIVE); Ketones Urine NEGATIVE (NEGATIVE); Leukocyte Esterase Urine NEGATIVE (NEGATIVE); Nitrite Urine NEGATIVE (NEGATIVE); Protein Urine NEGATIVE (NEG/TRACE); Specific Gravity Urine >=1.030 (1.005-1.025); Urobilinogen Urine 0.2 EU/dL (0.2-1.0)
[2024-01-15 22:32] LABS: Amorphous Sediment Urine FEW; Bacteria Urine LARGE #/HPF (NONE SEEN); Cast Seen? NONE SEEN #/LPF (NONE SEEN); Crystals Seen? Seen #/HPF (None Seen); Mucus Urine LARGE (NONE SEEN); Squamous Epithelial Cell Urine MODERATE #/LPF (NONE/RARE); Urine Culture Indicated YES
[2024-01-15 22:38] LABS: Alanine Aminotransferase 23 U/L (14-59); Albumin Globulin Ratio 0.9; Albumin Level 3.6 g/dL (3.4-5.0); Alkaline Phosphatase 50 U/L (46-116); Anion Gap 11.9; Aspartate Amino Transferase 18 U/L (15-37); Bilirubin Total 0.4 mg/dL (0.2-1.0); Calcium 8.7 mg/dL (8.5-10.1); Carbon Dioxide 26.3 mmol/L (21.0-32.0); Chloride 102 mmol/L (98-107); Estimated GFR (African America >60 (>=60); Estimated GFR (Non-African Ame >60 (>=60); Globulin 4.2 g/dL; Glucose 99 mg/dL (74-106); Potassium 3.2 mmol/L (3.5-5.1); Sodium 137 mmol/L (136-145); Total Protein 7.8 g/dL (6.4-8.2)
== END 2024-01-15 23:44 | disposition home or self-care (01) ==
PROVIDERS: Emergency Provider Emergency Medicine
DX: O26.891 Other specified pregnancy related conditions, first trimester (principal); R51.9 Headache, unspecified; Z3A.01 Less than 8 weeks gestation of pregnancy
CPT/HCPCS: 36415; 80053; 81001; 85025; 87086; 96374; 96375; 99285; J1200; J2765

== ENCOUNTER 2024-04-05 22:26 | Emergency (ER) | payer OTHER, SELFPAY ==
--- OUTSIDE RECORDS SUMMARY | 2024-04-05 22:32 | XMS_ITS | CCD ---
Author Organization [facility] Care Team Providers Care Technology Auditor Name Role Phone Page Adan Primary Care [...] DOCTOR ON Consulting Unavailable Page Adan Unavailable Yadira Alie Unavailable Unavailable Jordyn Ramirez Unavailable Unavailable Unavailable Jordyn Ramirez CNP Primary Care Provider [phone] JOSELIN NOYOLA Referring Unavailable JOSELIN NOYOLA Admitting Unavailable RAMIREZ, JORDYN ARIE Primary Care Unavailable JOSELIN NOYOLA Attending Unavailable ASHLEY, JORDYN ARIE Primary Care Unavailable JOSELIN NOYOLA Referring Unavailable RAMIREZ, JORDYN AREI Primary Care Unavailable JOSELIN NOYOLA Admitting Unavailable JOSELIN NOYOLA Attending Unavailable ASHLEY, JORDYN ARIE Primary Care Unavailable JOSELIN NOYOLA Referring Unavailable JOSELIN NOYOLA Admitting Unavailable RAMIREZ, JORDYN ARIE Primary Care Unavailable JOSELIN NOYOLA Attending Unavailable ASHLEY, JORDYN ARIE Primary Care Unavailable Jordyn Thakur Unavailable Page Adan Unavailable Thakur, Jordyn Unavailable Tyrell Pelaez Unavailable Unavailable Fried, Jocelyne Unavailable Unavailable Thakur JOB ANALYST-CUPOLA LINER, Jordyn D Primary Care Provider [phone] Alie Flor Unavailable Unavailabl e RAMIREZ, JORDYN ARIE Primary Care Unavailable STANLEY QUILES Attending Unavailable STANLEY QUILES Attending Unavailable TAVALLAEE, JOANNA MONAZZAM Primary Care Unav ailable ASHLEY, JORDYN ARIE Primary Care Unavailable MARE LEAVITT Attending Unava ilable Bautista Villanueva Unavailable Unavailable Chris Blue Unavailable Unavailabl e THAKUR, CUPOLA LINER JORDYN ARIE Primary Care Unavailab le Fried, Ms. Jocelyne Rosa Attending Unavailabl e THAKUR, CUPOLA LINER JORDYN ARIE Primary Care Unavailab le Zarrabi, Dr. Mcmullen Attending Unavailable Zarrcandace, Dr. Mcmullen Referring Unavailable THAKUR, CUPOLA LINER JORDYN ARIE Attending Unavailab le THAKUR, CUPOLA LINER JORDYN ARIE Referring Unavailab le THAKUR, CUPOLA LINER JORDYN ARIE Primary Care Unavailab le THAKUR, CUPOLA LINER JORDYN ARIE Attending Unavailab le THAKUR, CUPOLA LINER JORDYN ARIE Referring Unavailab le THAKUR, CUPOLA LINER JORDYN ARIE Primary Care Unavailab le Zarrabi, Dr. Mcmullen Attending Unavailable Zarrcandace, Dr. Mcmullen Referring Unavailable THAKUR, CUPOLA LINER JORDYN ARIE Primary Care Unavailab le THAKUR, CUPOLA LINER JORDYN ARIE Primary Care Unavailab le Zarrabi, Dr. Mcmullen Attending Unavailable Zalorraine, Dr. Mcmullen Referring Unavailable Thakur JOB ANALYST-CUPOLA LINER, Jordyn D Unavailable [phone] Claudia Quick RN Unavailable Unavailable Basia, Ms. Alie Ward Attending Unavailable Thakur, Ms. Jordyn Arie Primary Care Unavailab le Thakur, Ms. Jordyn Arie Primary Care Unavailab le LeMasters, Dr. Chris Lemos Attending Unav ailable Thakur, Ms. Jordyn Arie Primary Care Unavailab le Latanya, Dr. Tyrell Gray Attending Unavailabl e Thakur, Ms. Jordyn Arie Primary Care Unavailab le Mohan Bautista Attending Unavailable Daniel Berkowitz Admitting Unavailab le Daniel Berkowitz Referring Unavailab le THAKUR, JORDYN D Primary Care Unavailable NONE, XXXX Primary Care Physician Unavailab le THAKUR, JORDYN D Primary Care Unavailable THAKUR, [...] Unavailable THAKUR, JORDYN D Primary Care Unavailable Paulino, Anika Gomez Admitting Unavailable Paulino, Anika Gomez Attending Unavailable Paulino, Anika Goemz Admitting Unavailable Paulino, Anika Gomez Attending Unavailable Paulino, Anika Gomez Attending Unavailable Paulino, Anika D Admitting Unavailable Paulino, Anika D Attending Unavailable Paulino, Anika D Admitting Unavailable Paulino, Anika Gomez Attending Unavailable Paulino, Anika Jason Admitting Unavailable Allergies Allergy Classification Reported Allergen(s) Allergy Type Date of Onset Reaction(s) Facility cloNIDine (1 source) cloNIDine Drug Allergy Hives/Urticaria [facility] (20 sources) cloNIDine; Translations: [clonidine] Drug Allergy 1 [facility] Repository (9 sources) PARoxetine; Translations: [PAROXETINE HCL] Drug Allergy 3 [facility] Work Phone: Medications Current Medications Medication [...] DAILY. Quantity: 90 Refills: 1 Ordered: 06-Jun-2022 Simon WELDON-CUPOLA LINER, Jordyn Start : 03-Mar-2022 Active Start: 03-03-2022 take 1 tablet by christiano th once daily PARoxetine HCl - 10 MG Oral Tablet TAKE 1 TABLET DAILY. 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 of containers..01 ThinPrep Vial DIAGNOSIS: 01 NEGATIVE FOR INTRAEPITHELIAL LESION OR MALIGNANCY. Specimen adequacy: 01 Satisfactory for evaluation. No endocervical component is identified. Performed by: Antonio Thompson, Innersole Fitter ([facility]) . 01 Note: Note 02 The Pap smear is a screening test designed to aid in the detection of premalignant and malignant conditions of the uterine cervix. It is not a diagnostic procedure and should not be used as the sole means of detecting cervical cancer. Both false-positive and false-negative reports do occur. Test Methodology: Note 02 This liquid based ThinPrep(R) pap test was screened with the use of an image guided system. . 01 The HPV DNA reflex criteria were not met with this specimen result therefore, no HPV testing was performed. FLAG LEGEND: L-Low Normal,H-High Normal,LL-Alert Low,HH-Alert High <-Panic Low,>-Panic High,A-Abnormal,AA-Critical Abnormal Performed at: 01 [employer] [facility] [address] [place] [address] Michele Sims MD, 02 WB [facility] [address] [address] Jen Carpio MD, Performed at: [employer] [facility] [address] [place], [place] [id number] MD Bethany Bautista Performed By: #### 3 [id number] #### [facility] [address] [place] [address] Urineon 02-07-2024 Bacteria identified Cx Nom (U) Microbiology PROCEDURE: Urine Culture [R1] SOURCE: U CleanCatch BODY SITE: COLLECTED DATE/TIME: 02/04/2024 14:03 EDT RECEIVED DATE/TIME: 02/05/2024 19:57 EDT START DATE/TIME: 02/05/2024 19:57 EDT FREE TEXT SOURCE: Paulino CORRIGAN, Anika Bob MD, Anika Gomez FINAL REPORTS Final Report [] Verified Date/Time: 02/07/2024 11:10 EDT 2,000 cfu/ml Mixed skin contaminants Performing Locations R1: This test was performed at: [facility], [address] [place] [address], [address] , [place], Normal [facility] Comment on above: Performed By: #### 2 [id number] #### [facility] [address] [place] [address] 23468 HIV Screen 4th Generation wR fxon 02-07-2024 HIV 1+2 Ab+HIV1 p24 Ag IA Ql Non-Reactive Invalid Interpretation Code Non Reactive [facility] Comment on above: Result Comment: HIV- 1/HIV-2 antibodies and HIV-1 p24 antigen were NOT detected. There is no laboratory evidence of HIV infection. HIV Negative Performed at: [address] [id number] PhD Tim Quezada Performed By: #### 9 [id number] #### [facility] [address] [place] [address] Hep Bs Agon 02-07-2024 HBV surface Ag IA Ql Negative Invalid Interpretation Code Negative [facility] Comment on above: Result Comment: Perf ormed at: [address] [id number] PhD Tim Quezada Performed By: #### 2 [id number] #### [facility] [address] [place] [address] RPR with Conf Rfxon 02-07-20 24 Reagin Ab RPR Ql (S) Non-Reactive Invalid Interpretation Code Non Reactive [facility] Comment on above: Result Comment: Perf ormed at: [address] [id number] PhD Tim Quezada Performed By: #### 1 [id number] #### [facility] [address] [place] [address] Rubella IgGon 02-07-2024 Rubella virus IgG Qn (S) 2.78 [IU]/mL Invalid Interpretation Code Immune >0.99 [facility] Comment on above: Result Comment: Non- immune <0.90 Equivocal 0.90 - 0.99 Immune >0.99 Performed at: [address] [id number] PhD Tim Quezada Performed By: #### 1 [id number] #### [facility] [address] [place] [address] ABO/Rhon 02-05-2024 ABO/Rh Positive Invalid Interpretation Code [facility] Comment on above: Performed By: #### 2 [id number] #### [facility] [address] [place] [address] ABSCon 02-05-2024 ABSC Gel Interp Negative Normal [facility] Comment on above: Performed By: #### 1 [id number] #### [facility] [address] [place] [address] CBC w/Indiceson 02-05-2024 Erythrocyte distribution width (RBC) [Ratio] 13.4 % Normal 10.9-14.2 [facility] Comment on above: Performed By: #### 2 194213 #### [facility] [address] [place] [address] Hematocrit (Bld) [Volume fraction] 40.9 % Normal 34.0-46.0 [facility] Comment on above: Performed By: #### 2 714122 #### [facility] [address] [place] [address] Hemoglobin (Bld) [Mass/Vol] 13.7 g/dL Normal 12.0-16.0 [facility] Comment on above: Performed By: #### 2 591086 #### [facility] [address] [place] [address] MCH (RBC) [Entitic mass] 30.6 pg Normal 27.0-34.0 [facility] Comment on above: Performed By: #### 2 364840 #### [facility] [address] [place] [address] MCHC (RBC) [Mass/Vol] 33.5 g/dL Normal 31.4-36.0 [facility] Comment on above: Performed By: #### 2 595364 #### [facility] [address] [place] [address] MCV (RBC) [Entitic vol] 91.3 fL Normal 80.0-100.0 [facility] Comment on above: Performed By: #### 2 693978 #### [facility] [address] [place] [address] Platelet 330.0 E9/L Normal 150.0-500.0 [facility] Comment on above: Performed By: #### 2 815317 #### [facility] [address] [place] [address] Platelet mean volume (Bld) [Entitic vol] 9.4 fL Normal 6.4-10.8 [facility] Comment on above: Performed By: #### 2 868946 #### [facility] [address] [place] [address] RBC (Bld) [#/Vol] 4.5 E12/L Normal 4.3-5.9 [facility] Comment on above: Performed By: #### 2 665980 #### [facility] [address] [place] [address] 60691 RBC size Nom (Bld) NORMAL Invalid Interpretation Code [facility] Comment on above: Performed By: #### 2 063169 #### [facility] [address] [place] [address] WBC corrected for nucl RBC Auto (Bld) [#/Vol] 10.9 E9/L Normal 4.0-11.0 [facility] Comment on above: Performed By: #### 2 362957 #### [facility] [address] [place] [address] PAP [id number] 02-05-2024 Collection Technique BRUSH-SPATULA Normal [facility] Comment on above: Performed By: #### 3 [id number] #### [facility] [address] [place] [address] Gynecological Body Site ENDOCERVIX Normal [facility] Comment on above: Performed By: #### 3 [id number] #### [facility] [address] [place] [address] Physician Orderon 01-13-2024 Physician Order [id number]#1.00TIFF Normal [facility] BhCG Quanton 01-09-2024 [place] [address] m[IU]/mL High 1-3 F [facility] Comment on above: Result Comment: 'F N ON < 1 - 3' ' 0.2 - 1 WEEK = 5 TO 50' ' 1 - 2 WEEKS = 50 - 500' ' 2 - 3 WEEKS = 100 - 5000' ' 3 - 4 WEEKS = 500 - 94694' ' 4 - 5 WEEKS = 1000 - 97447' ' 5 - 6 WEEKS = 36687 - 615595' ' 6 - 8 WEEKS = 73107 - 095210' ' 8 - 12 WEEKS = 41503 - 132986' Performed By: #### 2 534512 #### [facility] [address] [place] [address] CHEMISTRYOrdered By: SYSTEM SYSTEM on 01-09-2024 [place] [address] m[IU]/mL High 1 - 3 mIU/mL [facility] Comment on above: Result Comment: 'F N ON < 1 - 3' ' 0.2 - 1 WEEK = 5 TO 50' ' 1 - 2 WEEKS = 50 - 500' ' 2 - 3 WEEKS = 100 - 5000' ' 3 - 4 WEEKS = 500 - 20033' ' 4 - 5 WEEKS = 1000 - 17186' ' 5 - 6 WEEKS = 64669 - 132072' ' 6 - 8 WEEKS = 35021 - 354894' ' 8 - 12 WEEKS = 50968 - 259821' Progesterone Lvl 80.38 ng/mL Invalid Interpretation Code [...] Consent for Treatmenton 12-21 Consent for Treatment [id number]#1.00TIFF Normal [facility] Physician Orderon 01-09-2024 Physician Order [id number]#1.00TIFF Normal [facility] Progesteroneon 01-09-2024 Progesterone Lvl 80.38 ng/mL Invalid Interpretation Code [facility] Comment on above: Result Comment: 'F N ON FOLLICULAR = 0.10 - 0.60' 'LUTEAL = 3.00 - 17.5' 'MIDLUTEAL = 3.30 - 18.6' 'POST-MENOPAUSE = 0.10 - 0.40' '-FIRST TRIMESTER = 8.30 - 66.5' 'SECOND TRIMESTER = 18.9 - 66.1' 'THIRD TRIMESTER = 35.8 - 312.4' 'MALES = 0.14 - 2.06' Result Verified by Dilution Performed By: #### 2 [id number] #### [address] [address] Anti-Mullerian Hormone (AMH) on 09-27-2023 Mullerian inhibiting substance [Mass/Vol] 1.81 ng/mL Invalid Interpretation Code [facility] Comment on above: Result Comment: For assays employing antibodies, the possibility exists for interference by heterophile antibodies in the samples.1 1.Hermelinda Alves. Interferences in Immunoassays - still a threat. Clin. Chem. 2000; 46: 2216-1721. This test was developed and its performance characteristics determined by [employer]. It has not been cleared or approved by the Food and Drug Administration. Reference Range: Females 20 - 25y: 1.23 - 11.51 Median 4.70 AMH concentrations of >= 1.06 ng/mL is correlated with a better response to ovarian stimulation, produced more retrievable oocytes and higher odds of live according to Samantha et al. Fertility and Sterility. 2010: 94:5742-9322. The current AMH test method correlates with [...] exclude an AMH-secreting ovarian tumor. Performed at: [facility] [address] [place], [place] [id number] MD Todd Bedoya Performed By: #### 2 964054, [id number], [id number], [id number], 5124861 #### [facility] [address] [place] [address] FSH and LHon 09-27-2023 Follitropin Qn 2.8 m[IU]/mL Invalid Interpretation Code [facility] Comment on above: Result Comment: Adul t Female Range Follicular phase 3.5 - 12.5 Ovulation phase 4.7 - 21.5 Luteal phase 1.7 - 7.7 Postmenopausal 25.8 - 134.8 Performed at: [facility] [address] [id number] PhD Tim Quezada Performed By: #### 2 756021, [id number], [id number], [id number], 7236581 #### [facility] [address] [place] [address] Lutropin Qn 3.8 m[IU]/mL Invalid Interpretation Code [facility] Comment on above: Result Comment: Adul t Female Range Follicular phase 2.4 - 12.6 Ovulation phase 14.0 - 95.6 Luteal phase 1.0 - 11.4 Postmenopausal 7.7 - 58.5 Performed By: #### 2 123387, 12696450, [id number], [id number], 0498706 #### [facility] [address] [place] [address] Insulin Lvlon 09-27-2023 Insulin Qn 31.9 u[IU]/mL High 2.6-24.9 [facility] Comment on above: Result Comment: Perf ormed at: [facility] [address] [id number] PhD Tim Quezada Performed By: #### 2 739952, [id number], [id number], [id number], 4028969 #### [facility] [address] [place] [address] CHEMISTRYOrdered By: SYSTEM SYSTEM on 09-22-2023 Prolactin 14.07 ng/mL Normal 3.34 - 26.72 ng/mL Remisol Chem TSH Qn 1.94 m[IU]/L Normal 0.34 - 5.60 mcIU/mL Remisol Chem Consent for Treatmenton Consent for Treatment [id number]#1.00TIFF Normal [facility] Physician Orderon 09-22-2023 Physician Order [id number]#1.00TIFF Normal [facility] Prolactinon 09-22-2023 Prolactin 14.07 ng/mL Normal 3.34-26.72 [facility] Comment on above: Performed By: #### 2 505013, [id number], [id number], [id number], 6840645 #### [facility] [address] [place] [address] TSHon 09-22-2023 TSH Qn 1.94 m[IU]/L Normal 0.34-5.60 [facility] Comment on above: Performed By: #### 2 209263, [id number], [id number], [id number], 2037887 #### [facility] [address] [place] [address] Progesteroneon 08-27-2023 Progesterone [Mass/Vol] 5.4 ng/mL Normal [facility] Comment on above: Result Comment: Ref Values Male <0.3- 1.2 Follicular Phase <0.3- 1.4 Luteal Phase 3.3-25.6 Mid-Luteal Phase 4.4-28.0 Postmenopausal <0.3- 0.7 Females: 1st Trimester 11.2- 90.0 2nd Trimester 25.6- 89.4 3RD Trimester 48.4-422.5 Patients receiving DHEA-S supplements may show false elevation of progesterone for results near 1.0 ng/mL. Contact laboratory at [phone] if alternative testing is needed. Performed By: #### 2 839-9 #### CORBIN Alves ([id number]) [facility] ([facility]) [address] [place] [address] Bacteria identifiedon 2022 Bacteria identified Cx Nom (U) Test: Urine Culture Specimen Source: Clean Catch/Voided Specimen Type: Urine Specimen Date: 07/13/2023 4:11 PM Result Date: 07/16/2023 11:09 AM Result Status: Final result Abnormal: No Resulting Lab: [facility] [address] [place] [address] CULTURE No significant growth [facility] Comment on above: Performed By: #### 6 30-4 #### CORBIN Alves ([id number]) [facility] ([facility]) [address] [place] [address] Bacteria identifiedon 2022 Bacteria identified Cx Nom (U) Test: Urine Culture Specimen Source: Clean Catch/Voided Specimen Type: Urine Specimen Date: 06/19/2023 5:42 PM Result Date: 06/21/2023 8:49 AM Result Status: Final result Abnormal: No Resulting Lab: [facility] [address] [place] [address] CULTURE Normal genitourinary viy [facility] Comment on above: Performed By: #### 6 30-4 #### CORBIN Alves ([id number]) [facility] ([facility]) [address] [place] [address] HCG ( test) IA.rapi d Ql (U)on 06-19-2023 HCG ( test) Ql (U) Negative Normal NEGATIVE [facility] Comment on above: Performed By: #### 8 0384-1 #### KELBY ROSS ([id number]) [facility] ([facility]) [address] [place] [address] HCG ( test) IA.rapi d Ql (U)Ordered By: Rob Burnham on 06-19-2023 HCG ( test) Ql (U) Negative NEGATIVE [facility] Interpretation and review of laboratory results Normal [facility] No Panel Informationon 06-19 Interpretation and review of laboratory results Abnormal [facility] Urinalysis complete W Reflex Culture panel (U)on 06-19-2023 Appearance (U) Hazy Normal Clear [facility] Comment on above: Performed By: #### 5 8077-9 #### KELBY ROSS ([id number]) [facility] ([facility]) [address] [place] [address] Bilirubin (U) [Mass/Vol] Negative Normal NEGATIVE [facility] Comment on above: Performed By: #### 5 8077-9 #### KELBY ROSS ([id number]) [facility] ([facility]) [address] [place] [address] Color (U) Yellow Normal Straw, Yellow [facility] Comment on above: Performed By: #### 5 8077-9 #### KELBY ROSS ([id number]) [facility] ([facility]) [address] [place], [place] [address] Glucose Auto test strip (U) [Mass/Vol] Negative Normal NEGATIVE [facility] Comment on above: Performed By: #### 5 8077-9 #### KELBY ROSS ([id number]) [facility] ([facility]) [address] [place] [address] Ketones (U) [Mass/Vol] 5 (TRACE) Abnormal NEGATIVE [facility] Comment on above: Performed By: #### 5 8077-9 #### KELBY ROSS ([id number]) [facility] ([facility]) [address] [place] [address] Leukocyte esterase Auto test strip Ql (U) TRACE Abnormal NEGATIVE [facility] Comment on above: Performed By: #### 5 8077-9 #### KELBY ROSS ([id number]) [facility] ([facility]) [address] [place] [address] Nitrite Auto test strip Ql (U) Negative Normal NEGATIVE [facility] Comment on above: Performed By: #### 5 8077-9 #### KELBY ROSS ([id number]) [facility] ([facility]) [address] [place] [address] pH (U) 5.0 [pH] Normal 5.0, 5.5, 6.0, 6.5, 7.0, 7.5, 8.0 [facility] Comment on above: Performed By: #### 5 8077-9 #### KELBY ROSS ([id number]) [facility] ([facility]) [address] [place] [address] Protein (U) [Mass/Vol] 100 (2+) Normal NEGATIVE [facility] Comment on above: Performed By: #### 5 8077-9 #### KELBY ROSS ([id number]) [facility] ([facility]) [address] [place], [place] [address] RBC (U) [#/Vol] Negative Normal NEGATIVE [facility] Comment on above: Performed By: #### 5 8077-9 #### KELBY ROSS ([id number]) [facility] ([facility]) [address] [place], [place] [address] Specific gravity (U) [Rel density] 1.031 Normal 1.005-1.035 [facility] Comment on above: Performed By: #### 5 8077-9 #### KELBY ROSS ([id number]) [facility] ([facility]) [address] [place] [address] Urobilinogen (U) [Mass/Vol] 2.0 mg/dL Normal <2.0 [facility] Comment on above: Result [...] urobilinogen. Performed By: #### 5 8077-9 #### LAMA VANDANA ([id number]) [facility] ([facility]) [address] [place] [address] Appearance (U) Hazy Abnormal Clear [facility] Bilirubin (U) [Mass/Vol] Negative NEGATIVE [facility] Color (U) Yellow Straw, Yellow [facility] Glucose Auto test strip (U) [Mass/Vol] Negative NEGATIVE mg/dL [facility] Ketones (U) [Mass/Vol] 5 (TRACE) Abnormal NEGATIVE mg/dL [facility] Leukocyte esterase Auto test strip Ql (U) TRACE Abnormal NEGATIVE [facility] Nitrite Auto test strip Ql (U) Negative NEGATIVE [facility] pH (U) 5.0 [pH] 5.0, 5.5, 6.0, 6.5, 7.0, 7.5, 8.0 [facility] Protein (U) [Mass/Vol] 100 (2+) Abnormal NEGATIVE mg/dL [facility] RBC (U) [#/Vol] Negative NEGATIVE [facility] Specific gravity (U) [Rel density] 1.031 1.005 - 1.035 [facility] Urobilinogen (U) [Mass/Vol] 2.0 mg/dL Abnormal NINF - 2.0 mg/dL [facility] Comment on above: Due to a [...] 10-25 (FEW) Normal Reference range not established. [facility] Comment on above: Performed By: #### 5 3315-8 #### KELBY ROSS ([id number]) [facility] ([facility]) [address] [place] [address] Mucus Auto (Urine sed) [#/Area] 2+ /LPF Normal Reference range not established. [facility] Comment on above: Performed By: #### 5 3315-8 #### KELBY ROSS ([id number]) [facility] ([facility]) [address] [place] [address]882 RBC Auto (Urine sed) [#/Area] 3-5 Normal NONE, 1-2, 3-5 [facility] Comment on above: Performed By: #### 5 3315-8 #### KELBY ROSS ([id number]) [facility] ([facility]) [address] [place], [place] [address] WBC Auto (Urine sed) [#/Area] 11-20 Abnormal 1-5, NONE [facility] Comment on above: Performed By: #### 5 3315-8 #### KELBY ROSS ([id number]) [facility] ([facility]) [address] [place] [address] Epithelial cells.squamous Auto (Urine sed) [#/Area] 10-25 (FEW) Reference range not established. /HPF [facility] Mucus Auto (Urine sed) [#/Area] 2+ Reference range not established. /LPF [facility] RBC Auto (Urine sed) [#/Area] 3-5 NONE, 1-2, 3-5 /HPF [facility] WBC Auto (Urine sed) [#/Area] 11-20 Abnormal 1-5, NONE /HPF [facility] Bacteria identifiedon 2022 Bacteria identified Cx Nom (U) Test: Urine Culture Specimen Source: Clean Catch/Voided Specimen Type: Urine Specimen Date: 05/18/2023 10:46 AM Result Date: 05/20/2023 8:13 AM Result Status: Final result Abnormal: No Resulting Lab: [facility] [address] [facility] [address] CULTURE No significant growth Normal [facility] Comment on above: Performed By: #### 6 30-4 #### CORBIN Alves ([id number]) [facility] ([facility]) [address] [place] [address] POCT UA Automated manually r esultedon 05-18-2023 Appearance (U) Hazy Abnormal Clear [facility] Work Phone: Glucose Test strip (U) [Mass/Vol] Negative NEGATIVE mg/dl [facility] Work Phone: Hemoglobin Ql (U) MODERATE (2+) Abnormal NEGATIVE [facility] Work Phone: Interpretation and review of laboratory results Abnormal [facility] Work Phone: [phone] Leukocyte esterase Test strip Ql (U) Negative NEGATIVE [facility] Work Phone: [phone] Nitrite Ql (U) Negative NEGATIVE [facility] Work Phone: pH (U) 7.0 [pH] No Reference Range Established [facility] Work Phone: [phone] POC Bilirubin, Urine Negative NEGATIVE [facility] Work Phone: POC Color, Urine Yellow Straw, Yellow, Light-Yellow [facility] Work Phone: POC Ketones, Urine 15 (1+) Abnormal NEGATIVE mg/dl [facility] Work Phone: POC Protein, Urine 30 (1+) NEGATIVE, 30 (1+) mg/dl [facility] Work Phone: POC Specific [place], Urine 1.025 1.005 - 1.035 [facility] Work Phone: POC Urobilinogen, Urine 0.2 0.2, 1.0 EU/DL [facility] Work Phone: [facility] Work Phone: CBC AND DIFFERENTIALon 04-14 % AUTOMATED IMMATURE GRAN 0.2 % Normal 0.0 - 0.9 [facility] Comment on above: Result Comment: Tammie ture Granulocyte Count (IG) includes promyelocytes, myelocytes and metamyelocytes but does not include bands. Percent differential counts (%) should be interpreted in the context of the absolute cell counts (cells/L). Performed By: #### C BCDF #### [address] [address] Basophils (Bld) [#/Vol] 0.02 10*3/uL Normal 0.00 - 0.10 [facility] Comment on above: Performed By: #### C BCDF #### [address] [address] Basophils/100 WBC (Bld) 0.5 % Normal 0.0 - 2.0 [facility] Comment on above: Performed By: #### C BCDF #### [address] [address] Eosinophils (Bld) [#/Vol] 0.09 10*3/uL Normal 0.00 - 0.70 [facility] Comment on above: Performed By: #### C BCDF #### [address] [address] Eosinophils/100 WBC (Bld) 2.2 % Normal 0.0 - 6.0 [facility] Comment on above: Performed By: #### C BCDF #### [address] [address] Erythrocyte distribution width (RBC) [Ratio] 11.6 % Normal 11.5 - 14.5 [facility] Comment on above: Performed By: #### C BCDF #### [address] [address] Hematocrit (Bld) [Volume fraction] 43.6 % Normal 36.0 - 46.0 [facility] Comment on above: Performed By: #### C BCDF #### [address] [address] Hemoglobin (Bld) [Mass/Vol] 14.3 g/dL Normal 12.0 - 16.0 [facility] Comment on above: Performed By: #### C BCDF #### [address] [address] Lymphocytes (Bld) [#/Vol] 1.48 10*3/uL Normal 1.20 - 4.80 [facility] Comment on above: Performed By: #### C BCDF #### [address] [address] Lymphocytes/100 WBC (Bld) 36.5 % Normal 13.0 - 44.0 [facility] Comment on above: Performed By: #### C BCDF #### [address] [address] MCHC (RBC) [Mass/Vol] 32.8 g/dL Normal 32.0 - 36.0 [facility] Comment on above: Performed By: #### C BCDF #### [address] [address] MCV (RBC) [Entitic vol] 90 fL Normal 80 - 100 [facility] Comment on above: Performed By: #### C BCDF #### [address] [address] Monocytes (Bld) [#/Vol] 0.30 10*3/uL Normal 0.10 - 1.00 [facility] Comment on above: Performed By: #### C BCDF #### [address] [address] Monocytes/100 WBC (Bld) 7.4 % Normal 2.0 - 10.0 [facility] Comment on above: Performed By: #### C BCDF #### [address] [address] Neutrophils (Bld) [#/Vol] 2.16 10*3/uL Normal 1.20 - 7.70 [facility] Comment on above: Result Comment: Perc ent differential counts (%) should be interpreted in the context of the absolute cell counts (cells/L). Performed By: #### C BCDF #### [address] [address] Neutrophils/100 WBC (Bld) 53.2 % Normal 40.0 - 80.0 [facility] Comment on above: Performed By: #### C BCDF #### [address] [address] Platelets (Bld) [#/Vol] 267 10*3/uL Normal 150 - 450 [facility] Comment on above: Performed By: #### C BCDF #### [address] [address] RBC 4.84 x10E12/L Normal 4.00 - 5.20 [facility] Comment on above: Performed By: #### C BCDF #### [address] [address] WBC (Bld) [#/Vol] 4.1 10*3/uL Low 4.4 - 11.3 [facility] Comment on above: Performed By: #### C BCDF #### [address] [address] COMPREHENSIVE PANELon 04-14- 2022 Albumin [Mass/Vol] 4.4 g/dL Normal 3.4 - 5.0 [facility] Comment on above: Performed By: #### C MP #### [address] [address] ALP [Catalytic activity/Vol] 42 U/L Normal 33 - 110 [facility] Comment on above: Performed By: #### C MP #### [address] [address] ALT [Catalytic activity/Vol] 20 U/L Normal 7 - 45 [facility] Comment on above: Result Comment: Glory ents treated with Sulfasalazine may generate falsely decreased results for ALT. Performed By: #### C MP #### [address] [address] Anion gap [Moles/Vol] 13 mmol/L Normal 10 - 20 [facility] Comment on above: Performed By: #### C MP #### [address] [address] AST [Catalytic activity/Vol] 25 U/L Normal 9 - 39 [facility] Comment on above: Performed By: #### C MP #### [address] [address] Bilirubin [Mass/Vol] 0.6 mg/dL Normal 0.0 - 1.2 [facility] Comment on above: Performed By: #### C MP #### [address] [address] Calcium [Mass/Vol] 9.5 mg/dL Normal 8.6 - 10.3 [facility] Comment on above: Performed By: #### C MP #### [address] [address] Chloride [Moles/Vol] 106 mmol/L Normal 98 - 107 [facility] Comment on above: Performed By: #### C MP #### [address] [address] Creatinine [Mass/Vol] 0.82 mg/dL Normal 0.50 - 1.05 [facility] Comment on above: Performed By: #### C MP #### [address] [address] eGFR FEMALE >90 Normal >90 [facility] Comment on above: Result Comment: CALC ULATIONS OF ESTIMATED GFR ARE PERFORMED USING THE 2020 CKD-EPI STUDY REFIT EQUATION WITHOUT THE RACE VARIABLE FOR THE IDMS-TRACEABLE CREATININE METHODS. https://jasn.asnjournals.org/content//ASN.45740946 88 Performed By: #### C MP #### [address] [address] Glucose [Mass/Vol] 80 mg/dL Normal 74 - 99 [facility] Comment on above: Performed By: #### C MP #### [address] [address] HCO3 (Bld) [Moles/Vol] 25 mmol/L Normal 21 - 32 [facility] Comment on above: Performed By: #### C MP #### [address] [address] Potassium [Moles/Vol] 3.8 mmol/L Normal 3.5 - 5.3 [facility] Comment on above: Performed By: #### C MP #### [address] [address] Protein [Mass/Vol] 7.0 g/dL Normal 6.4 - 8.2 [facility] Comment on above: Performed By: #### C MP #### [address] [address] Sodium [Moles/Vol] 140 mmol/L Normal 136 - 145 [facility] Comment on above: Performed By: #### C MP #### [address] [address] Urea nitrogen [Mass/Vol] 5 mg/dL Low - [facility] Comment on above: Performed By: #### C MP #### [address] [address] HEMOGLOBIN A1Con 04-14-2023 Glucose [Mass/Vol] 88 mg/dL Normal [facility] Comment on above: Performed By: #### H BA1E #### [address] [address] HbA1c (Bld) [Mass fraction] 4.7 % Normal [facility] Comment on above: Result Comment: Diag nosis of Diabetes-Adults Non-Diabetic: < or = 5.6% Increased risk for developing diabetes: 5.7-6.4% Diagnostic of diabetes: > or = 6.5% . Monitoring of Diabetes Age (y) Therapeutic Goal (%) Adults: >18 <7.0 Pediatrics: 13-18 <7.5 7-12 <8.0 0- 6 7.5-8.5 [employer]. Diabetes Care 33(S1), Jul 2009. Performed By: #### H BA1E #### [address] [address] LIPID PANEL (CORONARY RISK 2 )on 04-14-2023 Cholesterol [Mass/Vol] 159 mg/dL Normal 0 - 199 [facility] Comment on above: Result Comment: [...] dosing. Performed By: #### L IPID #### [address] [address] Cholesterol in HDL [Mass/Vol] 56.0 mg/dL Normal [facility] Comment on above: Result Comment: . AGE VERY LOW LOW NORMAL HIGH 0-19 Y < 35 < 40 40-45 ---- 20-24 Y ---- < 40 >45 ---- >24 Y ---- < 40 40-60 >60 . Performed By: #### L IPID #### [address] [address] Cholesterol in LDL [Mass/Vol] 87 mg/dL Normal 0 - 119 [facility] Comment on above: Result Comment: . NEAR BORD AGE DESIRABLE OPTIMAL HIGH HIGH VERY HIGH 0-19 Y 0 - 109 --- 110-129 >/= 130 ---- 20-24 Y 0 - 119 --- 120-159 >/= 160 ---- >24 Y 0 - 99 100-129 130-159 160-189 >/=190 . Performed By: #### L IPID #### [address] [address] Cholesterol in VLDL [Mass/Vol] 16 mg/dL Normal 0 - 40 [facility] Comment on above: Performed By: #### L IPID #### [address] [address] Cholesterol.total/C holesterol in HDL [Mass ratio] 2.8 {ratio} Normal [facility] Comment on above: Result Comment: REF VALUES DESIRABLE < 3.4 HIGH RISK > 5.0 Performed By: #### L IPID #### [facility] [address] NON-HDL CHOLESTEROL 103 mg/dL Normal 0 - 149 [facility] Comment on above: Result Comment: AGE DESIRABLE BORDERLINE HIGH HIGH VERY HIGH 0-19 Y 0 - 119 120 - 144 >/= 145 >/= 160 20-24 Y 0 - 149 150 - 189 >/= 190 ---- >24 Y 30 MG/DL ABOVE LDL CHOLESTEROL GOAL . Performed By: #### L IPID #### [address] [address] Triglyceride [Mass/Vol] 79 mg/dL Normal 0 - 149 [facility] Comment on above: Result Comment: [...] dosing. Performed By: #### L IPID #### [address] [address] TSH WITH REFLEX TO FREE T4 I F ABNORMALon 04-14-2023 TSH Qn 2.73 m[IU]/L Normal 0.44 - 3.98 [facility] Comment on above: Result Comment: TSH testing is performed using different testing methodology at [facility] than at other [facility]. Direct result comparisons should only be made within the same method. Performed By: #### T HYDS #### [address] [address] CBC AND DIFFERENTIALon 04-13 % AUTOMATED IMMATURE GRAN 0.2 % Normal 0.0 - 0.9 [facility] Comment on above: Result Comment: Tammie ture Granulocyte Count (IG) includes promyelocytes, myelocytes and metamyelocytes but does not include bands. Percent differential counts (%) should be interpreted in the context of the absolute cell counts (cells/L). Performed By: #### C BCDF ####[address] [address] Basophils (Bld) [#/Vol] 0.01 10*3/uL Normal 0.00 - 0.10 [facility] Comment on above: Performed By: #### C BCDF ####[address] [address] Basophils/100 WBC (Bld) 0.2 % Normal 0.0 - 2.0 [facility] Comment on above: Performed By: #### C BCDF ####[address] [address] Eosinophils (Bld) [#/Vol] 0.06 10*3/uL Normal 0.00 - 0.70 [facility] Comment on above: Performed By: #### C BCDF ####[address] [address] Eosinophils/100 WBC (Bld) 1.2 % Normal 0.0 - 6.0 [facility] Comment on above: Performed By: #### C BCDF ####[address] [address] Erythrocyte distribution width (RBC) [Ratio] 11.4 % Low 11.5 - 14.5 [facility] Comment on above: Performed By: #### C BCDF ####[address] [address] Hematocrit (Bld) [Volume fraction] 39.3 % Normal 36.0 - 46.0 [facility] Comment on above: Performed By: #### C BCDF ####[address] [address] Hemoglobin (Bld) [Mass/Vol] 13.4 g/dL Normal 12.0 - 16.0 [facility] Comment on above: Performed By: #### C BCDF ####[address] [address] Lymphocytes (Bld) [#/Vol] 1.39 10*3/uL Normal 1.20 - 4.80 [facility] Comment on above: Performed By: #### C BCDF ####[address] [address] Lymphocytes/100 WBC (Bld) 27.9 % Normal 13.0 - 44.0 [facility] Comment on above: Performed By: #### C BCDF ####[address] [address] MCHC (RBC) [Mass/Vol] 34.1 g/dL Normal 32.0 - 36.0 [facility] Comment on above: Performed By: #### C BCDF ####[address] [address] MCV (RBC) [Entitic vol] 88 fL Normal 80 - 100 [facility] Comment on above: Performed By: #### C BCDF ####[address] [address] Monocytes (Bld) [#/Vol] 0.49 10*3/uL Normal 0.10 - 1.00 [facility] Comment on above: Performed By: #### C BCDF ####[address] [address] Monocytes/100 WBC (Bld) 9.8 % Normal 2.0 - 10.0 [facility] Comment on above: Performed By: #### C BCDF ####[address] [address] Neutrophils (Bld) [#/Vol] 3.03 10*3/uL Normal 1.20 - 7.70 [facility] Comment on above: Result Comment: Perc ent differential counts (%) should be interpreted in the context of the absolute cell counts (cells/L). Performed By: #### C BCDF ####[address] [address] Neutrophils/100 WBC (Bld) 60.7 % Normal 40.0 - 80.0 [facility] Comment on above: Performed By: #### C BCDF ####[address] [address] Platelets (Bld) [#/Vol] 275 10*3/uL Normal 150 - 450 [facility] Comment on above: Performed By: #### C BCDF ####[address] [address] RBC 4.45 x10E12/L Normal 4.00 - 5.20 [facility] Comment on above: Performed By: #### C BCDF ####[address] [address] WBC (Bld) [#/Vol] 5.0 10*3/uL Normal 4.4 - 11.3 [facility] Comment on above: Performed By: #### C BCDF ####[place] [address] COMPREHENSIVE PANELon 2022 Albumin [Mass/Vol] 4.2 g/dL Normal 3.4 - 5.0 [facility] Comment on above: Performed By: #### C MP ####[address] [address] ALP [Catalytic activity/Vol] 40 U/L Normal 33 - 110 [facility] Comment on above: Performed By: #### C MP ####[address] [address] ALT [Catalytic activity/Vol] 12 U/L Normal 7 - 45 [facility] Comment on above: Result Comment: Glory ents treated with Sulfasalazine may generate falsely decreased results for ALT. Performed By: #### C MP ####[address] [address] Anion gap [Moles/Vol] 11 mmol/L Normal 10 - 20 [facility] Comment on above: Performed By: #### C MP ####[address] [address] AST [Catalytic activity/Vol] 17 U/L Normal 9 - 39 [facility] Comment on above: Performed By: #### C MP ####[address] [address] Bilirubin [Mass/Vol] 0.5 mg/dL Normal 0.0 - 1.2 [facility] Comment on above: Performed By: #### C MP ####[address] [address] Calcium [Mass/Vol] 8.9 mg/dL Normal 8.6 - 10.3 [facility] Comment on above: Performed By: #### C MP ####[address] [address] Chloride [Moles/Vol] 106 mmol/L Normal 98 - 107 [facility] Comment on above: Performed By: #### C MP ####[address] [address] Creatinine [Mass/Vol] 0.85 mg/dL Normal 0.50 - 1.05 [facility] Comment on above: Performed By: #### C MP ####[address] [address] eGFR FEMALE >90 Normal >90 [facility] Comment on above: Result Comment: CALC ULATIONS OF ESTIMATED GFR ARE PERFORMED USING THE 2020 CKD-EPI STUDY REFIT EQUATION WITHOUT THE RACE VARIABLE FOR THE IDMS-TRACEABLE CREATININE METHODS. https://jasn.asnjournals.org/content/early//ASN.52015298 88 Performed By: #### C MP ####[address] [address] Glucose [Mass/Vol] 87 mg/dL Normal 74 - 99 [facility] Comment on above: Performed By: #### C MP ####[address] [address] HCO3 (Bld) [Moles/Vol] 26 mmol/L Normal 21 - 32 [facility] Comment on above: Performed By: #### C MP ####[address] [address] Potassium [Moles/Vol] 3.4 mmol/L Low 3.5 - 5.3 [facility] Comment on above: Performed By: #### C MP ####[address] [address] Protein [Mass/Vol] 6.8 g/dL Normal 6.4 - 8.2 [facility] Comment on above: Performed By: #### C MP ####[address] [address] Sodium [Moles/Vol] 140 mmol/L Normal 136 - 145 [facility] Comment on above: Performed By: #### C MP ####[address] [address] Urea nitrogen [Mass/Vol] 6 mg/dL Normal 6 - 23 [facility] Comment on above: Performed By: #### C MP ####[address] [address] HCG,URINEon 04-13-2023 Beta HCG ( test) Ql (U) Negative Normal Negative [facility] Comment on above: Performed By: #### H CGU ####[address] [address] Provider Note - ED v3on 03-24 Provider [...] a day SIGNIFICANT EVENTS: Past Medical History Description:Irving teeth extraction CRITICAL CARE RESULTS: Recent Lab [...] Reference Range: STRAW,YELLOW Appearance, Urine CLEAR Specific [place], Urine 1.010 pH, Urine 7.0 Protein, Urine NEGATIVE Glucose, Urine NEGATIVE Blood, Urine NEGATIVE Ketones, Urine NEGATIVE Bilirubin, Urine NEGATIVE Urobilinogen, Urine <2.0 Nitrite, Urine Negative Leukocyte Esterase, Urine NEGATIVE VITAL SIGNS: T PRBP SpO2O2(LPM) %FiO2 Method 13-Apr-2023 13:54:[id number] 94 13-Apr-2023 13:13:[id number]/74 99 room air, no respiratory support 13-Apr-2023 12:55:[id number]/74 99 room air, no respiratory support [facility] MDM/ED COURSE: Medical Decision Making: Patient appears well and nontoxic. Vital signs within normal limits. Lab work otherwise unremarkable. Urine without acute infection. Patient given 1 L normal saline. Advised on [id number] Motrin and Tylenol. Asked to follow-up with primary care. Stable at time of discharge. Differential Diagnoses Considered: Musculoskeletal pain, UTI, kidney stone Escalation of Care: (more content not included)... Normal [facility] Triage - EDon 04-13-2023 Triage - [...] obeys commands Best Verbal Response: (V5) oriented Ashby Score: 15 Cough lasting greater than 3 [...] 13-Apr-2023 13:15 by Imelda Ramirez (ROXI) Normal [facility] URINALYSISon 04-13-2023 Appearance (U) CLEAR Normal CLEAR [facility] Comment on above: Performed By: #### U A ####[place] [address] Bilirubin Ql (U) Negative Normal NEGATIVE [facility] Comment on above: Performed By: #### U A ####[place] [address] Color (U) Yellow Normal STRAW,YELLOW [facility] Comment on above: Performed By: #### U A ####[place] [address] Glucose Ql (U) Negative Normal NEGATIVE [facility] Comment on above: Performed By: #### U A ####[place] [address] Hemoglobin Ql (U) Negative Normal NEGATIVE [facility] Comment on above: Performed By: #### U A ####[place] [address] Ketones Ql (U) Negative Normal NEGATIVE [facility] Comment on above: Performed By: #### U A ####[place] [address] Leukocyte esterase Test strip Ql (U) Negative Normal NEGATIVE [facility] Comment on above: Performed By: #### U A ####[address] [address] Nitrite Ql (U) Negative Normal NEGATIVE [facility] Comment on above: Performed By: #### U A ####[address] [address] pH (U) 7.0 [pH] Normal 5.0 - 8.0 [facility] Comment on above: Performed By: #### U A ####[address] [address] Protein Ql (U) Negative Normal NEGATIVE [facility] Comment on above: Performed By: #### U A ####[address] [address] Specific gravity (U) [Rel density] 1.010 Normal 1.005 - 1.035 [facility] Comment on above: Performed By: #### U A ####[address] [address] Urobilinogen (U) [Mass/Vol] mg/dL Normal 0.0 - 1.9 [facility] Comment on above: Performed By: #### U A ####[address] [address] BASIC METABOLIC PANELon 03-24 Creatinine [Mass/Vol] 1.33 mg/dL High 0.50 - 1.05 [facility] Comment on above: Result Comment: Conf irmed by repeat analysis Performed By: #### B MP ####[address] [address] GFR/1.73 sq M.predicted among non-blacks MDRD (S/P/Bld) [Vol rate/Area] 58 mL/min/{1.73_m2} Abnormal >90 [facility] Comment on above: Result Comment: CALC ULATIONS OF ESTIMATED GFR ARE PERFORMED USING THE 2020 CKD-EPI STUDY REFIT EQUATION WITHOUT THE RACE VARIABLE FOR THE IDMS-TRACEABLE CREATININE METHODS. https://jasn.asnjournals.org/content//ASN.52812828 88 Performed By: #### B MP ####[address] [address] Anion gap [Moles/Vol] 8 mmol/L Low 10 - 20 [facility] Comment on above: Performed By: #### B MP ####[address] [address] Calcium [Mass/Vol] 8.0 mg/dL Low 8.6 - 10.3 [facility] Comment on above: Performed By: #### B MP ####[address] [address] Chloride [Moles/Vol] 115 mmol/L High 98 - 107 [facility] Comment on above: Performed By: #### B MP ####[address] [address] Glucose [Mass/Vol] 90 mg/dL Normal 74 - 99 [facility] Comment on above: Performed By: #### B MP ####[address] [address] HCO3 (Bld) [Moles/Vol] 23 mmol/L Normal 21 - 32 [facility] Comment on above: Performed By: #### B MP ####[address] [address] Potassium [Moles/Vol] 3.9 mmol/L Normal 3.5 - 5.3 [facility] Comment on above: Performed By: #### B MP ####[address] [address] Sodium [Moles/Vol] 142 mmol/L Normal 136 - 145 [facility] Comment on above: Performed By: #### B MP ####[address] [address] Urea nitrogen [Mass/Vol] 10 mg/dL Normal 6 - 23 [facility] Comment on above: Performed By: #### B MP ####[address] [address] CBCon 04-11-2023 Erythrocyte distribution width (RBC) [Ratio] 11.8 % Normal 11.5 - 14.5 [facility] Comment on above: Performed By: #### U ARFX #### [address] [address] Hematocrit (Bld) [Volume fraction] 34.9 % Low 36.0 - 46.0 [facility] Comment on above: Performed By: #### U ARFX #### [address] [address] Hemoglobin (Bld) [Mass/Vol] 11.5 g/dL Low 12.0 - 16.0 [facility] Comment on above: Performed By: #### U ARFX #### [address] [address] MCHC (RBC) [Mass/Vol] 33.0 g/dL Normal 32.0 - 36.0 [facility] Comment on above: Performed By: #### U ARFX #### [address] [address] MCV (RBC) [Entitic vol] 90 fL Normal 80 - 100 [facility] Comment on above: Performed By: #### U ARFX #### [address] [address] Platelets (Bld) [#/Vol] 213 10*3/uL Normal 150 - 450 [facility] Comment on above: Performed By: #### U ARFX #### [address] [address] RBC 3.86 x10E12/L Low 4.00 - 5.20 [facility] Comment on above: Performed By: #### U ARFX #### [address] [address] WBC (Bld) [#/Vol] 4.4 10*3/uL Normal 4.4 - 11.3 [facility] Comment on above: Performed By: #### U ARFX #### [address] [address] Discharge [id number] Discharge Profile2 Discharge Orders: Anticipated Discharge Date: Anticipated Discharge [id number] Code Status: Code Status at Discharge: Full [...] at 11-Apr-2023 09:34:24 Appointments: Follow-Up Appointment 01: [facility] Thakur Reason for ReferralPyelonephritis, acute kidney injury Call to Schedule in1 week LocationS [place]ana [place] Phone [phone] Annamarie will call and make her own appointment. Electronic Signatures: Kusum Joaquin) (Signed 11-Apr-2023 10:50) Authored: Discharge Orders, Appointments Bautista Villanueva) (Signed 11-Apr-2023 09:34) Authored: Discharge Orders, Hospital Course (Home Care/Gold Form), Provider FINAL REVIEW of Orders, Appointments, Gold Form - Position Classifier Summary Last Updated: 11-Apr-2023 10:50 by Kusum Joaquin) [facility] Order Reconciliationon 04-11 Order Reconciliation Page [...] 1 cap(s) orally once a day Normal [facility] BASIC METABOLIC PANELon 03-23 Anion gap [Moles/Vol] 11 mmol/L Normal 10 - 20 [facility] Comment on above: Performed By: #### B MP ####[address] [address] Calcium [Mass/Vol] 8.4 mg/dL Low 8.6 - 10.3 [facility] Comment on above: Performed By: #### B MP ####[address] [address] Chloride [Moles/Vol] 109 mmol/L High 98 - 107 [facility] Comment on above: Performed By: #### B MP ####[address] [address] Creatinine [Mass/Vol] 2.30 mg/dL High 0.50 - 1.05 [facility] Comment on above: Performed By: #### B MP ####[address] [address] GFR/1.73 sq M.predicted among non-blacks MDRD (S/P/Bld) [Vol rate/Area] 30 mL/min/{1.73_m2} Abnormal >90 [facility] Comment on above: Result Comment: CALC ULATIONS OF ESTIMATED GFR ARE PERFORMED USING THE 2020 CKD-EPI STUDY REFIT EQUATION WITHOUT THE RACE VARIABLE FOR THE IDMS-TRACEABLE CREATININE METHODS. https://jasn.asnjournals.org/content/early//ASN.48502678 88 Performed By: #### B MP ####[address] [address] Glucose [Mass/Vol] 84 mg/dL Normal 74 - 99 [facility] Comment on above: Performed By: #### B MP ####[address] [address] HCO3 (Bld) [Moles/Vol] 23 mmol/L Normal 21 - 32 [facility] Comment on above: Performed By: #### B MP ####[place] [id number] Potassium [Moles/Vol] 3.8 mmol/L Normal 3.5 - 5.3 [facility] Comment on above: Performed By: #### B MP ####[place] [id number] Sodium [Moles/Vol] 139 mmol/L Normal 136 - 145 [facility] Comment on above: Performed By: #### B MP ####[place] [id number] Urea nitrogen [Mass/Vol] 20 mg/dL Normal 6 - 23 [facility] Comment on above: Performed By: #### B MP ####[place] [id number] CBCon 04-10-2023 Erythrocyte distribution width (RBC) [Ratio] 11.9 % Normal 11.5 - 14.5 [facility] Comment on above: Performed By: #### U ARFX #### [place] [id number] Hematocrit (Bld) [Volume fraction] 37.4 % Normal 36.0 - 46.0 [facility] Comment on above: Performed By: #### U ARFX #### [place] [id number] Hemoglobin (Bld) [Mass/Vol] 12.3 g/dL Normal 12.0 - 16.0 [facility] Comment on above: Performed By: #### U ARFX #### [place] [id number] MCHC (RBC) [Mass/Vol] 32.9 g/dL Normal 32.0 - 36.0 [facility] Comment on above: Performed By: #### U ARFX #### [place] [id number] MCV (RBC) [Entitic vol] 90 fL Normal 80 - 100 [facility] Comment on above: Performed By: #### U ARFX #### [place] [id number] Platelets (Bld) [#/Vol] 239 10*3/uL Normal 150 - 450 [facility] Comment on above: Performed By: #### U ARFX #### [address] [address] RBC 4.16 x10E12/L Normal 4.00 - 5.20 [facility] Comment on above: Performed By: #### U ARFX #### [address] [address] WBC (Bld) [#/Vol] 8.0 10*3/uL Normal 4.4 - 11.3 [facility] Comment on above: Performed By: #### U ARFX #### [address] [address] Daily Progress Note-Medicine on 04-10-2023 Daily Progress Note-Medicine Service: Medicine Subjective Data: LUZ HINOJOSA is a 22 year old Female who is Hospital Day # 2. Patient feeling better no longer nauseated or vomiting. Was able to tolerate diet. Still having some left flank pain. Objective Data: Objective Information: T PRBPMAPSpO2 [id number]% Date/Time04/10 8: 8: 8: 8: 8: 8:04 [...] if there are errors there due to agricultural agent. Bautista Villanueva Hospitalist Electronic Signatures: Bautista Villanueva) (Signed 10-Apr-2023 11:04) Authored: Service, Subjective Data, Objective Data, Assessment and Plan, Note Completion Last Updated: 10-Apr-2023 11:04 by Bautista Villanueva) Normal [facility] MAGNESIUMon 04-10-2023 Magnesium [Mass/Vol] 1.72 mg/dL Normal 1.60 - 2.40 [facility] Comment on above: Performed By: #### M G ####[address] [address] Admission Risk Screen - Adul ton 04-09-2023 Admission Risk Screen - Adult Allergies: Allergies: clonidine: Hives/Urticaria Patient Verification: New W ID Band Applied in my Departmentno Type of ID Patient is WearingW wristband, but not applied here Patient Transferred from Other Facility ([facility], [facility],etc)no Patient Identity Verified Bypatient ID Band [...] AlertFor Ebola-like Symptoms: Isolate Patient and Notify Provider/Robotics Mechanic For Contact: Notify Provider/Robotics Mechanic Advance Directive: Advance Directive/DNRno (2) Advance Directive [...] material; verbal instruction Cultural Considerationsnone Developmental Considerationsnone Muslim Considerationsnone Learning Assessment (Other Learner): Other learner availableno Depression Screen: During the past month, have you often been bothered by feeling down, depressed or hopelessno During the past month, have you often had little interest or pleasure in doing thingsno Have you had any thoughts of harming anyone elseno (1) [place] Suicide: Risk Screen Not Applicable/Able to Answerable to be screened In the Past Month: Have you wished you were or could go to sleep and not wake upno(1) In the Past Month: Have you had any actual thoughts of killing yourself no(1) Lifetime: Have you ever done, started to do, or prepared to do anything to end your lifeno [place] Suicide Risknegative Adult Nutrition Screen: Have you [...] there any (more content not included)... Normal [facility] BASIC METABOLIC PANELon 03-23 Anion gap [Moles/Vol] 14 mmol/L Normal 10 - 20 [facility] Comment on above: Performed By: #### U ARFX #### [facility] [address] [place] [address] Calcium [Mass/Vol] 8.1 mg/dL Low 8.6 - 10.3 [facility] Comment on above: Performed By: #### U ARFX #### [address] [address] Chloride [Moles/Vol] 112 mmol/L High 98 - 107 [facility] Comment on above: Performed By: #### U ARFX #### [address] [address] Creatinine [Mass/Vol] 2.16 mg/dL High 0.50 - 1.05 [facility] Comment on above: Performed By: #### U ARFX #### [address] [address] GFR/1.73 sq M.predicted among non-blacks MDRD (S/P/Bld) [Vol rate/Area] 32 mL/min/{1.73_m2} Abnormal >90 [facility] Comment on above: Result Comment: CALC ULATIONS OF ESTIMATED GFR ARE PERFORMED USING THE 2020 CKD-EPI STUDY REFIT EQUATION WITHOUT THE RACE VARIABLE FOR THE IDMS-TRACEABLE CREATININE METHODS. https://jasn.asnjournals.org/content//ASN.63882433 88 Performed By: #### U ARFX #### [address] [address] Glucose [Mass/Vol] 74 mg/dL Normal 74 - 99 [facility] Comment on above: Performed By: #### U ARFX #### [address] [address] HCO3 (Bld) [Moles/Vol] 19 mmol/L Low 21 - 32 [facility] Comment on above: Performed By: #### U ARFX #### [address] [address] Potassium [Moles/Vol] 3.9 mmol/L Normal 3.5 - 5.3 [facility] Comment on above: Performed By: #### U ARFX #### [address] [address] Sodium [Moles/Vol] 141 mmol/L Normal 136 - 145 [facility] Comment on above: Performed By: #### U ARFX #### [address] [address] Urea nitrogen [Mass/Vol] 19 mg/dL Normal 6 - 23 [facility] Comment on above: Performed By: #### U ARFX #### [address] [address] Anion gap [Moles/Vol] 14 mmol/L Normal 10 - 20 [facility] Comment on above: Performed By: #### B MP ####[address] [address] Calcium [Mass/Vol] 9.5 mg/dL Normal 8.6 - 10.3 [facility] Comment on above: Performed By: #### B MP ####[address] [address] Chloride [Moles/Vol] 107 mmol/L Normal 98 - 107 [facility] Comment on above: Performed By: #### B MP ####[address] [address] Creatinine [Mass/Vol] 2.20 mg/dL High 0.50 - 1.05 [facility] Comment on above: Performed By: #### B MP ####[address] [address] GFR/1.73 sq M.predicted among non-blacks MDRD (S/P/Bld) [Vol rate/Area] 32 mL/min/{1.73_m2} Abnormal >90 [facility] Comment on above: Result Comment: CALC ULATIONS OF ESTIMATED GFR ARE PERFORMED USING THE 2020 CKD-EPI STUDY REFIT EQUATION WITHOUT THE RACE VARIABLE FOR THE IDMS-TRACEABLE CREATININE METHODS. https://jasn.asnjournals.org/content/early/ASN.31425779 88 Performed By: #### B MP ####[address] [address] Glucose [Mass/Vol] 91 mg/dL Normal 74 - 99 [facility] Comment on above: Performed By: #### B MP ####[address] [address] HCO3 (Bld) [Moles/Vol] 23 mmol/L Normal 21 - 32 [facility] Comment on above: Performed By: #### B MP ####[address] [address] Potassium [Moles/Vol] 3.7 mmol/L Normal 3.5 - 5.3 [facility] Comment on above: Performed By: #### B MP ####[address] [address] Sodium [Moles/Vol] 140 mmol/L Normal 136 - 145 [facility] Comment on above: Performed By: #### B MP ####[address] [address] Urea nitrogen [Mass/Vol] 20 mg/dL Normal 6 - 23 [facility] Comment on above: Performed By: #### B MP ####[address] [address] BLOOD CULTURE, BACTERIALon 0 04-09-2023 BLOOD CULTURE, BACTERIAL PATIENT: LUZ HINOJOSA LOCATION: [address]#: [id number] : 00 AGE: SEX: F ORDERED BY: ALIE RODRIGUEZ SOURCE: Blood COLLECTED: 04/09/23 14:05 ANTIBIOTICS AT [facility].: RECEIVED : 04/10/23 01:43 SITE: R E S U L T S BLOOD CULTURE, BACTERIAL FINAL 04/14/23 05:42 No Growth at 1 days No Growth at 2 days No Growth at 3 days NO GROWTH at 4 days - FINAL REPORT Normal [facility] Comment on above: Performed By: #### B [facility] ####[id number] [place] [address] BLOOD CULTURE, BACTERIAL PATIENT: LUZ HINOJOSA LOCATION: [address]#: [id number] : [birth year] AGE: SEX: F ORDERED BY: ALIE RODRIGUEZ SOURCE: Blood COLLECTED: 04/09/23 14:05 ANTIBIOTICS AT [facility].: RECEIVED : 04/10/23 01:45 SITE: ANTECUBITAL ANTECUBITAL R E S U L T S BLOOD CULTURE, BACTERIAL FINAL 04/14/23 05:42 No Growth at 1 days No Growth at 2 days No Growth at 3 days NO GROWTH at 4 days - FINAL REPORT Normal [facility] Comment on above: Performed By: #### B LD ####[id number] [place] [address] CBC AND DIFFERENTIALon 04-09 % AUTOMATED IMMATURE GRAN 0.2 % Normal 0.0 - 0.9 [facility] Comment on above: Result Comment: Tammie ture Granulocyte Count (IG) includes promyelocytes, myelocytes and metamyelocytes but does not include bands. Percent differential counts (%) should be interpreted in the context of the absolute cell counts (cells/L). Performed By: #### C BCDF #### [address] [address] Basophils (Bld) [#/Vol] 0.02 10*3/uL Normal 0.00 - 0.10 [facility] Comment on above: Performed By: #### C BCDF #### [address] [address] Basophils/100 WBC (Bld) 0.2 % Normal 0.0 - 2.0 [facility] Comment on above: Performed By: #### C BCDF #### [address] [address] Eosinophils (Bld) [#/Vol] 0.02 10*3/uL Normal 0.00 - 0.70 [facility] Comment on above: Performed By: #### C BCDF #### [address] [address] Eosinophils/100 WBC (Bld) 0.2 % Normal 0.0 - 6.0 [facility] Comment on above: Performed By: #### C BCDF #### [address] [address] Erythrocyte distribution width (RBC) [Ratio] 11.7 % Normal 11.5 - 14.5 [facility] Comment on above: Performed By: #### C BCDF #### [address] [address] Hematocrit (Bld) [Volume fraction] 42.9 % Normal 36.0 - 46.0 [facility] Comment on above: Performed By: #### C BCDF #### [address] [address] Hemoglobin (Bld) [Mass/Vol] 14.3 g/dL Normal 12.0 - 16.0 [facility] Comment on above: Performed By: #### C BCDF #### [address] [address] Lymphocytes (Bld) [#/Vol] 0.91 10*3/uL Low 1.20 - 4.80 [facility] Comment on above: Performed By: #### C BCDF #### [address] [address] Lymphocytes/100 WBC (Bld) 10.4 % Normal 13.0 - 44.0 [facility] Comment on above: Performed By: #### C BCDF #### [address] [address] MCHC (RBC) [Mass/Vol] 33.3 g/dL Normal 32.0 - 36.0 [facility] Comment on above: Performed By: #### C BCDF #### [address] [address] MCV (RBC) [Entitic vol] 89 fL Normal 80 - 100 [facility] Comment on above: Performed By: #### C BCDF #### [address] [address] Monocytes (Bld) [#/Vol] 1.12 10*3/uL High 0.10 - 1.00 [facility] Comment on above: Performed By: #### C BCDF #### [address] [address] Monocytes/100 WBC (Bld) 12.8 % Normal 2.0 - 10.0 [facility] Comment on above: Performed By: #### C BCDF #### [address] [address] Neutrophils (Bld) [#/Vol] 6.64 10*3/uL Normal 1.20 - 7.70 [facility] Comment on above: Result Comment: Perc ent differential counts (%) should be interpreted in the context of the absolute cell counts (cells/L). Performed By: #### C BCDF #### [address] [address] Neutrophils/100 WBC (Bld) 76.2 % Normal 40.0 - 80.0 [facility] Comment on above: Performed By: #### C BCDF #### [address] [address] Platelets (Bld) [#/Vol] 283 10*3/uL Normal 150 - 450 [facility] Comment on above: Performed By: #### C BCDF #### [address] [address] RBC 4.85 x10E12/L Normal 4.00 - 5.20 [facility] Comment on above: Performed By: #### C BCDF #### [address] [address] WBC (Bld) [#/Vol] 8.7 10*3/uL Normal 4.4 - 11.3 [facility] Comment on above: Performed By: #### C BCDF #### [address] [address] [address] ABDOMEN AND PELVIS W IV C [facility] 04-09-2023 CT ABDOMEN AND PELVIS W IV CONTRAST Patient Name: LUZ HINOJOSA STUDY: CT ABDOMEN AND PELVIS W IV CONTRAST; 04/09/2023 12:57 pm INDICATION: Periumbilical and RLQ abdominal pain . COMPARISON: January 09, 2020 renal ultrasound ACCESSION NUMBER(S): [id number] ORDERING CLINICIAN: ALIE RODRIGUEZ TECHNIQUE: CT of [...] fluid. Electronically signed by: KIKI ACOSTA MD [facility] Discharge Planning Pulj0nb 0 04-09-2023 Discharge Planning Note2 Discharge Planning: Needs Prior to Discharge (ex. 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 Boyfrienjason Munoz [phone]. Will notify registration of same. Desires to keep her mom as second. AMPAC per nursing is 24, no falls or use of assistive devices. No issues in mobility. 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 Will need work excuse. Plan to d/c home with no other anticipated needs. CT will follow. REBECCA Doshi ([facility]) Assessment: Discharge Planning Assessment [id number] Discharge Planning Assessment Completed byREBECCA Doshi TCC Primary Contact Name and NumberBoyfrienjason Munoz [phone] James Qureshi [phone] Prior Level of FunctioningIndependent in all ADL's and IADL's, works, drives Lives Withsignificant other(1) Living Arrangementsapartment(1) Stated Reason for Admissionmy stomach hurt, I started puking this morning(1) Arrived Fromemergency department (1) [facility]/ Injury/ Need Assist with Ambulationdenies Home Care Agency/Support ServicesNone Diabetic/Supplies NeededNone Resource/Environmental Concernsnone(1) [facility] Services Anticipated at Transitionnone(1) PCP Last [...] Patient Profile - Adult v2 09-Apr-2023 15:54 [facility],URINEon 04-09-2023 Beta HCG ( test) Ql (U) Negative Normal Negative [facility] Comment on above: Performed By: #### H CGU ####[place] [id number] HEPATIC FUNCTION PANELon Albumin [Mass/Vol] 4.6 g/dL Normal 3.4 - 5.0 [facility] Comment on above: Performed By: #### U ARFX #### [place] [address] ALP [Catalytic activity/Vol] 48 U/L Normal 33 - 110 [facility] Comment on above: Performed By: #### U ARFX #### [place] [id number] ALT [Catalytic activity/Vol] 8 U/L Normal 7 - 45 [facility] Comment on above: Result Comment: Glory ents treated with Sulfasalazine may generate falsely decreased results for ALT. Performed By: #### U ARFX #### [place] [address] AST [Catalytic activity/Vol] 16 U/L Normal 9 - 39 [facility] Comment on above: Performed By: #### U ARFX #### [address] [address] Bilirubin [Mass/Vol] 1.1 mg/dL Normal 0.0 - 1.2 [facility] Comment on above: Performed By: #### U ARFX #### [address] [address] Bilirubin.indirect [Mass/Vol] 0.2 mg/dL Normal 0.0 - 0.3 [facility] Comment on above: Performed By: #### U ARFX #### [address] [address] Protein [Mass/Vol] 7.5 g/dL Normal 6.4 - 8.2 [facility] Comment on above: Performed By: #### U ARFX #### [place] [id number] LACTATEon 04-09-2023 Lactate [Moles/Vol] 0.8 mmol/L Normal 0.4 - 2.0 [facility] Comment on above: Result Comment: Yoko puncture immediately after or during the administration of Metamizole may lead to falsely low results. Testing should be performed immediately prior to Metamizole dosing. Performed By: #### L ACT #### [address] [address] LIPASEon 04-09-2023 Lipase [Catalytic activity/Vol] 31 U/L Normal 9 - 82 [facility] Comment on above: Result Comment: Yoko puncture immediately after or during the administration of Metamizole may lead to falsely low results. Testing should be performed immediately prior to Metamizole dosing. F-ylgvzn-e-benzoquinone imine (metabolite of Acetaminophen) will generate erroneously low results in samples for patients that have taken toxic doses of acetaminophen. Performed By: #### L IPAS #### [address] [address] Order Reconciliationon 04-09 Order Reconciliation Page 1 [...] capsule 1 cap(s) orally once a day [id number] AM Pantoprazole Enteric Coated Tablet (PROTONIX)DOSE = [...] Every 8 Hours and as Needed Normal [facility] Patient Profile - Adult v2on 04-09-2023 Patient Profile - Adult v2 Profile: Initial Info: How to be AddressedBrianna Spoken Language PreferredEnglish (1) Source of Informationpatient Stated Reason for Admissionmy stomach hurt, I started puking this morning Wants Family/Rep Notified of Admissionn/a; family present Notify PCPnotify PCP [facility] Jordyn CORRIGAN Informed of Patient Visiting Rightsyes Arrived Fromemergency department Patient Belongingsremains with patient Patient Belongings Remaining with Patientclothing; cell phone/electronics; purse/wallet; jewelry Medications Brought to Hospitalno General Health: Weight in kg54 kilogram(s)(2) Weight in nbb869 pound(s) Weight Methodactual (measured) Scale Typebed Height [...] Drug, Hives/Urticaria, Active Electronic Signatures: Itzel Coy (RN) (Signed 09-Apr-2023 16:01) Authored: Initial Info, General Health, RSP Based Care, Substance, Health Mgmt, Relationship/Environ, Additional Information Last Updated: 09-Apr-2023 16:01 by Itzel Coy (ROXI) References: 1. Data Referenced From Triage - ED 06-Nov-2022 18:48 2. Data Referenced From 1. Vital Signs 09-Apr-2023 10:40 3. Data Referenced From History and Physical 09-Apr-2023 15:05 Normal [facility] Provider Note - ED v3on 09- [...] made to minimize errors. Minor errors in agricultural agent may be present. Please call if questions.. [...] 04-09-2023 10:48 BP Diastolic (mm Hg): 96 09-18-2023 10:48 PAST MEDICAL HISTORY ALLERGIES/INTOLERANCES: Allergy Allergen: clonidine Type: Drug Reaction: Hives/Urticaria HEALTH HISTORY: No documented data. OUTPATIENT MEDICATIONS: Home Medications Review Status for Reconciliation: Complete Med Status: Patient Currently Takes Medications Drug Name: omeprazole 20 mg oral delayed release capsule Instructions: 1 cap(s) orally once a day SIGNIFICANT EVENTS: Past Medical History Description:Irving teeth extraction CRITICAL CARE RESULTS: Recent Lab Results: I have reviewed these laboratory results: Basic Metabolic Panel Trending View [id number] 13:30:00 09-Apr-2023 11:05:00 Glucose, Serum74 91 NA141 140 K3.9 3.7 CL112 H 107 Bicarbonate, Serum19 L 23 Anion Gap, Serum14 14 BUN19 20 CREAT2.16 H 2.20 H GFR Oyninh35 A 32 A Calcium, Serum8.1 L 9.5 [...] Reference Range: STRAW,YELLOW Appearance, Urine HAZY Specific [place], Urine 1.006 pH, Urine 6.0 Protein, Urine NEGATIVE Glucose, (more content not included)... Normal [facility] Risk Screen - Adult Emergenc yon 04-09-2023 Risk Screen - Adult Emergency Preferred Language: Preferred Language: Preferred Language for Discussing Health Care (patient/designee)Citizen Of [place] Patient Preferred Pharmacy: Patient Preferred Pharmacy Statement: [...] instruction; written material Cultural Considerationsnone Developmental Considerationsnone Muslim Considerationsnone Learning Assessment (Other Learner): Learning Assessment [...] an injured patient at a Trauma Center ([facility]/[place]/ [place]): no Electronic Signatures: Imelda Ramirez (ORXI) (Signed 09-Apr-2023 10:53) Authored: Preferred Language, Patient Preferred Pharmacy, Advanced Directives, Family Violence Adult, Learning Assessment (Patient), Learning Assessment (Other Learner), Pressure Injury/TB/Substance, Pressure Injury, CAGE Last Updated: 09-Apr-2023 10:53 by Imelda Ramirez (ROXI) [facility] Triage - EDon 04-09-2023 Triage - [...] support. Weight: 119.0 pounds. Calculated 54.0 kg. [place] Coma Scale: Best Eye Response: (E4) spontaneous Best Motor Response: (M6) obeys commands Best Verbal Response: (V5) oriented [place] Score: 15 Cough lasting greater than 3 [...] Last Updated: 09-Apr-2023 10:52 by Imelda Ramirez (RN) Normal [facility] UA MICROSCOPICon 04-09-2023 BACTERIA 2+ /HPF Abnormal [facility] Comment on above: Performed By: #### U AMIC ####[address] [address] RBC 2 /HPF Normal 0-5 [facility] Comment on above: Performed By: #### U AMIC ####[place] [address] SQUAMOUS EPITH. CELLS 19 /HPF Normal [facility] Comment on above: Performed By: #### U AMIC ####[place] [address] WBC 9 /HPF Abnormal 0-5 [facility] Comment on above: Performed By: #### U AMIC ####[place] [address] URINALYSIS WITH CULTURE IF I NDICATEDon 04-09-2023 Appearance (U) HAZY Normal CLEAR [facility] Comment on above: Performed By: #### U ARFX #### [place] [address] Bilirubin Ql (U) Negative Normal [facility]GAT[facility] Comment on above: Performed By: #### U ARFX #### [address] [address] Color (U) Rox Normal STRAW,YELLOW [facility] Comment on above: Performed By: #### U ARFX #### [address] [address] Glucose Ql (U) Negative Normal NEGATIVE [facility] Comment on above: Performed By: #### U ARFX #### [place] [id number] Hemoglobin Ql (U) MODERATE (2+) Abnormal NEGATIVE [facility] Comment on above: Performed By: #### U ARFX #### [place] [address] Ketones Ql (U) Negative Normal NEGATIVE [facility] Comment on above: Performed By: #### U ARFX #### [address] [address] Leukocyte esterase Test strip Ql (U) Negative Normal NEGATIVE [facility] Comment on above: Performed By: #### U ARFX #### [address] [address] Nitrite Ql (U) Positive Abnormal NEGATIVE [facility] Comment on above: Performed By: #### U ARFX #### [place] [id number] pH (U) 6.0 [pH] Normal 5.0 - 8.0 [facility] Comment on above: Performed By: #### U ARFX #### [address] [address] Protein Ql (U) Negative Normal NEGATIVE [facility] Comment on above: Performed By: #### U ARFX #### [place] [id number] Specific gravity (U) [Rel density] 1.006 Normal 1.005 - 1.035 [facility] Comment on above: Performed By: #### U ARFX #### [place] [id number] Urobilinogen (U) [Mass/Vol] mg/dL Normal 0.0 - 1.9 [facility] Comment on above: Performed By: #### U ARFX #### [place] [id number] URINE CULTURE,BACTERIALon URINE CULTURE,BACTERIAL PATIENT: LUZ HINOJOSA LOCATION: [address]#: [id number] : [birth year] AGE: SEX: F ORDERED BY: ALIE RODRIGUEZ SOURCE: URINE COLLECTED: 04/09/23 11:05 ANTIBIOTICS AT [facility].: RECEIVED : 04/09/23 19:53 SITE: R E S U L T S URINE CULTURE,BACTERIAL FINAL 04/10/23 13:17 NO SIGNIFICANT GROWTH. Normal [facility] Comment on above: Performed By: #### [facility] ####[id number] [place] [address] Provider Note - ED v3on 10-21 Provider [...] and vomiting SIGNIFICANT EVENTS: Past Medical History Description:Irving teeth extraction MDM MDM/ED COURSE: PMH: Reviewed [...] critically ill patient: no Electronic Signatures: Alie lFor ([facility] ANALYST[facility]) (Signed 06-Nov-2022 19:03) Authored: HPI, PMH, MDM/ED Course, Clinical Impression, Attestation, Chart Review, Scores Last Updated: 06-Nov-2022 19:03 by Alie Flor (JOB ANALYST[facility]) References: 1. Data Referenced From Triage - ED 06-Nov-2022 18:48 Normal [facility] Risk Screen - Adult Emergenc yon 11-06-2022 Risk Screen - Adult Emergency Preferred Language: Preferred Language: Preferred Language for Discussing Health Care (patient/designee)Citizen Of [place] Patient Preferred Pharmacy: Patient Preferred Pharmacy Statement: [...] Learning Preferencesverbal instruction Cultural Considerationsnone Developmental Considerationsnone Muslim Considerationsnone Learning Assessment (Other Learner): Learning Assessment [...] an injured patient at a Trauma Center ([facility]/[place]/ [place]): no Electronic Signatures: Vivian Allred (ROXI) (Signed 06-Nov-2022 18:52) Authored: Preferred Language, Patient Preferred Pharmacy, Advanced Directives, Family Violence Adult, Learning Assessment (Patient), Learning Assessment (Other Learner), Pressure Injury/TB/Substance, Pressure Injury, CAGE Last Updated: 06-Nov-2022 18:52 by Vivian Allred (ROXI) [facility] Triage - EDon 11-06-2022 Triage - ED Quick Triage: Are You no Have You Given In The Last 6 Weeksno Are You Currently Breastfeedingno Chart Review: PRIMARY ASSESSMENT ABCD Normal Findings: airway open and patent, circulation normal and alert and oriented ARRIVAL INFORMATION Means of Arrival: Ambulatory Mode of Arrival: private vehicle Arrival From: home Accompanied By: self Language: Spoken Language Preferred: Citizen Of [place] Reading Language Preferred: Citizen Of [place] Present on Arrival: Device Present on Arrival [...] BMI (kg/m2): 19.994 Calculated BSA (m2) 1.58 Ashby Coma Scale: Best Eye Response: (E4) spontaneous Best Motor Response: (M6) obeys commands Best Verbal Response: (V5) oriented Ashby Score: 15 Allergies: yes Last menstrual period: unknown 2 YEAR [employer] History: control Patient has homicidal thoughts: no [...] 06-Nov-2022 18:51 by Vivian Allred (ROXI) Normal [facility] BASIC METABOLIC PANELon Anion gap [Moles/Vol] 11 mmol/L Normal 10 - 20 [facility] Comment on above: Performed By: #### B MP #### [address] [address] Calcium [Mass/Vol] 9.0 mg/dL Normal 8.6 - 10.3 [facility] Comment on above: Performed By: #### B MP #### [address] [address] Chloride [Moles/Vol] 105 mmol/L Normal 98 - 107 [facility] Comment on above: Performed By: #### B MP #### [address] [address] Creatinine [Mass/Vol] 0.73 mg/dL Normal 0.50 - 1.05 [facility] Comment on above: Performed By: #### B MP #### [address] [address] eGFR FEMALE >90 Normal >90 [facility] Comment on above: Result Comment: CALC ULATIONS OF ESTIMATED GFR ARE PERFORMED USING THE 2020 CKD-EPI STUDY REFIT EQUATION WITHOUT THE RACE VARIABLE FOR THE IDMS-TRACEABLE CREATININE METHODS. https://jasn.asnjournals.org/content//ASN.62463671 88 Performed By: #### B MP #### [address] [address] Glucose [Mass/Vol] 78 mg/dL Normal 74 - 99 [facility] Comment on above: Performed By: #### B MP #### [address] [address] HCO3 (Bld) [Moles/Vol] 27 mmol/L Normal 21 - 32 [facility] Comment on above: Performed By: #### B MP #### [address] [address] Potassium [Moles/Vol] 3.9 mmol/L Normal 3.5 - 5.3 [facility] Comment on above: Performed By: #### B MP #### [address] [address] Sodium [Moles/Vol] 139 mmol/L Normal 136 - 145 [facility] Comment on above: Performed By: #### B MP #### [address] [address] Urea nitrogen [Mass/Vol] 11 mg/dL Normal 6 - 23 [facility] Comment on above: Performed By: #### B MP #### [address] [address] CBC AND DIFFERENTIALon 08-24 % AUTOMATED IMMATURE GRAN 0.0 % Normal 0.0 - 0.9 [facility] Comment on above: Result Comment: Tammie ture Granulocyte Count (IG) includes promyelocytes, myelocytes and metamyelocytes but does not include bands. Percent differential counts (%) should be interpreted in the context of the absolute cell counts (cells/L). Performed By: #### U ARFX #### [address] [address] Basophils (Bld) [#/Vol] 0.04 10*3/uL Normal 0.00 - 0.10 [facility] Comment on above: Performed By: #### U ARFX #### [address] [address] Basophils/100 WBC (Bld) 0.5 % Normal 0.0 - 2.0 [facility] Comment on above: Performed By: #### U ARFX #### [address] [address] Eosinophils (Bld) [#/Vol] 0.08 10*3/uL Normal 0.00 - 0.70 [facility] Comment on above: Performed By: #### U ARFX #### [address] [address] Eosinophils/100 WBC (Bld) 1.1 % Normal 0.0 - 6.0 [facility] Comment on above: Performed By: #### U ARFX #### [address] [address] Erythrocyte distribution width (RBC) [Ratio] 11.3 % Low 11.5 - 14.5 [facility] Comment on above: Performed By: #### U ARFX #### [address] [address] Hematocrit (Bld) [Volume fraction] 41.9 % Normal 36.0 - 46.0 [facility] Comment on above: Performed By: #### U ARFX #### [address] [address] Hemoglobin (Bld) [Mass/Vol] 14.1 g/dL Normal 12.0 - 16.0 [facility] Comment on above: Performed By: #### U ARFX #### [address] [address] Lymphocytes (Bld) [#/Vol] 2.21 10*3/uL Normal 1.20 - 4.80 [facility] Comment on above: Performed By: #### U ARFX #### [address] [address] Lymphocytes/100 WBC (Bld) 29.6 % Normal 13.0 - 44.0 [facility] Comment on above: Performed By: #### U ARFX #### [address] [address] MCHC (RBC) [Mass/Vol] 33.7 g/dL Normal 32.0 - 36.0 [facility] Comment on above: Performed By: #### U ARFX #### [address] [address] MCV (RBC) [Entitic vol] 88 fL Normal 80 - 100 [facility] Comment on above: Performed By: #### U ARFX #### [address] [address] Monocytes (Bld) [#/Vol] 0.61 10*3/uL Normal 0.10 - 1.00 [facility] Comment on above: Performed By: #### U ARFX #### [facility] [address] Monocytes/100 WBC (Bld) 8.2 % Normal 2.0 - 10.0 [facility] Comment on above: Performed By: #### U ARFX #### [address] [address] Neutrophils (Bld) [#/Vol] 4.53 10*3/uL Normal 1.20 - 7.70 [facility] Comment on above: Result Comment: Perc ent differential counts (%) should be interpreted in the context of the absolute cell counts (cells/L). Performed By: #### U ARFX #### [address] [address] Neutrophils/100 WBC (Bld) 60.6 % Normal 40.0 - 80.0 [facility] Comment on above: Performed By: #### U ARFX #### [address] [address] Platelets (Bld) [#/Vol] 286 10*3/uL Normal 150 - 450 [facility] Comment on above: Performed By: #### U ARFX #### [address] [address] RBC 4.79 x10E12/L Normal 4.00 - 5.20 [facility] Comment on above: Performed By: #### U ARFX #### [address] [address] WBC (Bld) [#/Vol] 7.5 10*3/uL Normal 4.4 - 11.3 [facility] Comment on above: Performed By: #### U ARFX #### [address] [address] HCG,BETA-QUANTITATIVEon 02-0 HCG,BETA-QUANTITATI VE <2 Normal [facility] Comment on above: Result Comment: . Total HCG measurement is performed using the Tram [place] Access Immunoassay which detects intact HCG and free beta HCG subunit. . This test is not indicated for use as a tumor marker. HCG testing is performed using a different test methodology at [facility] than other [facility]. Direct result comparison should only be made within the same method. REF VALUES NON FEMALE <5 MALES <5 Performed By: #### H CGQU #### [address] [address] HCG,URINEon 08-24-2022 Beta HCG ( test) Ql (U) Negative Normal Negative [facility] Comment on above: Performed By: #### H CGU #### [address] [address] Provider Note - ED v3on Provider Note [...] (V49.89) (Z78.9) Surgical History Problems History of Irving tooth extraction x 4 extracted 4 years [...] a day SIGNIFICANT EVENTS: Past Medical History Description:Irving teeth extraction REVIEW OF SYSTEMS CONSTITUTIONAL: Negative [...] affect. N (more content not included)... Normal [facility] Risk Screen - Adult Emergenc yon 08-24-2022 Risk Screen - Adult Emergency Preferred Language: Preferred Language: Preferred Language for Discussing Health Care (patient/designee)Citizen Of [place] Patient Preferred Pharmacy: Patient Preferred Pharmacy Statement: [...] instruction; written material Cultural Considerationsnone Developmental Considerationsnone Muslim Considerationsnone Learning Assessment (Other Learner): Learning Assessment [...] an injured patient at a Trauma Center ([facility]/[place]/ [place]): no Electronic Signatures: Ruthann Aguilera (RN) (Signed 24-Aug-2022 16:09) Authored: Preferred Language, Patient Preferred Pharmacy, Advanced Directives, Family Violence Adult, Learning Assessment (Patient), Learning Assessment (Other Learner), Pressure Injury/TB/Substance, Pressure Injury, CAGE Last Updated: 24-Aug-2022 16:09 by Ruthann Aguilera (ROXI) [facility] Triage - EDon 08-24-2022 Triage - [...] BMI (kg/m2): 19.994 Calculated BSA (m2) 1.58 Ashby Coma Scale: Best Eye Response: (E4) spontaneous Best Motor Response: (M6) obeys commands Best Verbal Response: (V5) oriented Ashby Score: 15 Ashby Assessment Qualifiers: patient not sedated/intubated Cough lasting [...] Past Medical History: Past Medical History Reviewedyes [place] teeth extraction: Past Medical History, Active Electronic Signatures: Johnny Potter (EMT-P) (Signed 24-Aug-2022 14:18) Entered: Risk Screens, Pain, Travel History, Chart Review, Scores Authored: Quick Triage, Risk Screens, Pain, Travel History, Chart Review, Scores Ruthann Aguilera (RN) (Signed 24-Aug-2022 16:07) Authored: Quick Triage, Pain, Chart Review, Past Medical History Last Updated: 24-Aug-2022 16:07 by Ruthann Aguilera (RN) Normal [facility] UA MICROSCOPICon 08-24-2022 BACTERIA 1+ /HPF Abnormal [facility] Comment on above: Performed By: #### U [place]IC ####[place] [address] RBC 83 /HPF Abnormal 0-5 [facility] Comment on above: Performed By: #### U AMIC ####[place] [address] SQUAMOUS EPITH. CELLS 11 /HPF Normal [facility] Comment on above: Performed By: #### U AMIC ####[place] [address] WBC 7 /HPF Abnormal 0-5 [facility] Comment on above: Performed By: #### U AMIC ####[place] [address] URINALYSISon 08-24-2022 Appearance (U) HAZY Normal CLEAR [facility] Comment on above: Performed By: #### U ARFX #### [place] [address] Bilirubin Ql (U) Negative Normal NEGATIVE [facility] Comment on above: Performed By: #### U ARFX #### [place] [address] Color (U) Yellow Normal STRAW,YELLOW [facility] Comment on above: Performed By: #### U ARFX #### [place] [address] Glucose Ql (U) Negative Normal NEGATIVE [facility] Comment on above: Performed By: #### U ARFX #### [place] [address] Hemoglobin Ql (U) LARGE(3+) Abnormal NEGATIVE [facility] Comment on above: Performed By: #### U ARFX #### [place] [address] Ketones Ql (U) Negative Normal NEGATIVE [facility] Comment on above: Performed By: #### U ARFX #### [address] [place] [address] Leukocyte esterase Test strip Ql (U) Negative Normal NEGATIVE [facility] Comment on above: Performed By: #### U ARFX #### [address] [address] Nitrite Ql (U) Negative Normal NEGATIVE [facility] Comment on above: Performed By: #### U ARFX #### [address] [address] pH (U) 7.0 [pH] Normal 5.0 - 8.0 [facility] Comment on above: Performed By: #### U ARFX #### [address] [address] Protein Ql (U) 30(1+) Abnormal NEGATIVE [facility] Comment on above: Performed By: #### U ARFX #### [address] [address] Specific gravity (U) [Rel density] 1.018 Normal 1.005 - 1.035 [facility] Comment on above: Performed By: #### U ARFX #### [address] [address] Urobilinogen (U) [Mass/Vol] mg/dL Normal 0.0 - 1.9 [facility] Comment on above: Performed By: #### U ARFX #### [address] [address] Office Visit (Internal Medic ine)on 08-03-2022 Follow-up visit Diagnoses/Problems Assessed Anxiety (300.00) (F41.9) Weight gain (783.1) (R63.5) Abnormal menses (626.9) (N92.6) Depression screening negative (V79.0) (Z13.31) Orders Abnormal menses, Night sweats T3 - Free Triiodothyronine, Serum; Status:Active; Requested for:14Sep2022; Perform:Lab Services - Lab To Draw (Blood Test); Due:13Dec2022;Ordered; For:Abnormal menses, Night sweats; Ordered By:Kemi Echevarria; T4 - Free Thyroxine, Serum; Status:Active; Requested for:14Sep2022; Perform:Lab Services - Lab To Draw (Blood Test); Due:13Dec2022;Ordered; For:Abnormal menses, Night sweats; Ordered By:Kemi Echevarria; TSH - Thyroid Stimulating Hormone, Serum; Status:Active; Requested for:14Sep2022; Perform:Lab Services - Lab To Draw (Blood Test); Due:[id number];Ordered; For:Abnormal menses, Night sweats; Ordered By:Kemi Echevarria; Generalized anxiety disorder with panic attacks Renew: PARoxetine HCl - 40 MG Oral Tablet; TAKE 1 TABLET DAILY Rx By: Kemi Echevarria; Dispense: 90 Days ; #:90 Tablet; Refill: 3;For: Generalized anxiety disorder with panic attacks; CATE = N; Verified Transmission to [facility]; Last Updated By: LatoyaProfitero; 08/03/2022 11:40:41 AM Patient Discussion/Summary 6 WEEKS [...] (V49.89) (Z78.9) Surgical History Problems History of [place] tooth extraction x 4 extracted 4 years [...] 2:28:14 P (more content not included)... Normal [employer] Tobacco Screening.on 023 Tobacco use status [facility] a) Yes [facility] Work Phone: Tobacco Screening. Yes [facility] Work Phone: IO HCG, Urine Test on 06-14-2022 HCG ( test) Ql (U) Negative [facility] Work Phone: Office Visit (Internal Medic ine)on 06-14-2022 Follow-up visit Diagnoses/Problems Assessed Abnormal menses (626.9) (N92.6) Orders Abnormal menses Gynecology Referral Evaluation and Treatment Evaluate AND Treat Status: Complete Done: 14Jun2022 Ordered;For: Abnormal menses; Ordered By: Jordyn Thakur Performed: Due: [id number]; Last Updated By: Melvi Meyers; 06/14/2022 4:00:47 PM 08-10-2022 at 1 with jocelyne bae IO HCG, Urine Test; Status:Complete; Done: 14Jun2022 04:05PM Performed:In Office; Due:[id number];Ordered; For:Abnormal menses; Ordered By:Jordyn Thakur; Patient Discussion/Summary [...] (V49.89) (Z78.9) Surgical History Problems History of [place] tooth extraction x 4 extracted 4 years ago Family History Mother Family history of Bipolar 1 disorder Father No pertinent family history Maternal Grandmother Family history of Family history of myocardial infarction (V17.3) (Z82.49) in her 40's Family history of type 2 diabetes mellitus (V18.0) (Z83.3) Social History Problems Cigarette nicotine dependence (305.1) (F17.210) (more content not included)... Normal [employer] Tobacco Screening.on 022 Fall risk assessment a) No falls within the last year [facility] Work Phone: Tobacco use status [facility] a) Yes [facility] Work Phone: Tobacco Screening. Yes [facility] Work Phone: XR FINGER(S) [...] distal phalanx. There is minimal callous formation. [employer] Workstation ID: [id number] Dictated by: MAYELIN LANDRY on SunJun 07, 2022 7:25:17 PM EST Transcribed by: MYRNA GOODMAN on SunJun 07, 2022 7:40:20 PM EST Finalized by: MAYELIN LANDRY on SunJun 08, 2022 9:26:59 AM EST Normal [facility] Comment on above: Order Comment: [...] attacks; CATE = N; Verified Transmission to [facility]; Last Updated By: [employer]; 06/06/2022 2:28:43 PM Renew: PARoxetine HCl - 30 MG Oral Tablet; TAKE 1 TABLET DAILY Rx By: Jordyn Ramirez; Dispense: 90 Days ; #:90 Tablet; Refill: 1;For: Generalized anxiety disorder with panic attacks; CATE = N; Verified Transmission to [facility]; Last Updated By: [employer]; 06/06/2022 2:28:49 PM Patient Discussion/Summary FEBRUARY WITH [...] (V49.89) (Z78.9) Surgical History Problems History of [place] tooth extraction x 4 extracted 4 years ago Family History Mother Family history of Bipolar 1 disorder Father No pertinent family history Maternal Grandmother Family history of Family history of myocardial infarction (V17.3) (Z82.49) in her 40's Family history of type 2 diabetes mellitus (V18.0) (Z83.3) Social History Problems Cigarette nicotine dependence (305.1) (F17.210) Consumes al (more content not included)... Normal [employer] Tobacco Screening.on 022 Fall risk assessment a) No falls within the last year [facility] Work Phone: Tobacco use status [facility] a) Yes [facility] Work Phone: Tobacco Screening. Yes [facility] Work Phone: XR HAND [...] the base of the 3rd distal phalanx. [employer] Workstation ID: [id number] Dictated by: GAURI BLANCA on Sat May 13, 2022 6:52:11 PM EDT Transcribed by: MYRNA GOODMAN on Sat May 13, 2022 8:00:17 PM EDT Finalized by: GAURI BLANCA on Elizabeth May 14, 2022 8:49:48 AM EDT Normal [facility] Comment on above: Order Comment: Injur y/Trauma or Illness?:Injury/Trauma How long have you had these symptoms (acute/chronic)?:Acute Reason for exam?:f.u Closed nondisplaced fracture of distal phalanx of left middle finger History of cancer?:n Surgeries, chemotherapy, or radiation?:n Type of Exam?:Subsequent/Follow-up Mechanism of injury?:wrkierraling on 04/23 HCG, Beta Quantitativeon HCG.beta subunit Qn m[IU]/mL [facility] Work Phone: Comment on above: [...] HCG measurement is performed using the Tram Twistle Access Immunoassay which detects intact HCG and free beta HCG subunit. This test is not indicated for use as a tumor marker. HCG testing is performed using a different test methodology at [facility] than other [facility]. Direct result comparison should only be made within the same method. REF VALUESNON FEMALE <5MALES <5 HCG,BETA-QUANTITATIVEon 04-22 HCG,BETA-QUANTITATI VE <2 Normal [facility] Comment on above: Result Comment: [...] HCG measurement is performed using the Tram [place] Access Immunoassay which detects intact HCG and free beta HCG subunit. This test is not indicated for use as a tumor marker. HCG testing is performed using a different test methodology at [facility] than other [facility]. Direct result comparison should only be made within the same method. REF VALUES NON FEMALE <5 MALES <5 Performed By: #### H QU #### [place] [address] [place] [address] Office Visit (Internal Medic ine)on 05-02-2022 Follow-up [...] (V49.89) (Z78.9) Surgical History Problems History of [place] tooth extraction x 4 extracted 4 years [...] Vitals Vital Signs Recorded: 02May2022 08:59AM Heart Evjp964 Egfvedfa608 Botoanjjg69 Height5 ft 5 in Lzzxtx007 lb 15.82 oz BMI Vfktgkumek77.81 kg/m2 BSA Calculated1.52 Tobacco Usea) Yes Patient [...] Apical pulse (more content not included)... Normal [facility] Tobacco Screening.on Fall risk assessment a) No falls within the last year [facility] Work Phone: Tobacco use status [facility] a) Yes [facility] Work Phone: Tobacco Screening. Yes [facility] Work Phone: XR FINGER(S) [...] on SunApr 24, 2022 12:19:58 PM EDT [facility] Comment on above: Order Comment: Injur y/Trauma [...] attacks; CATE = N; Verified Transmission to [facility] 5[facility]; Last Updated By: Latoya Talentag; 03/31/2022 2:39:28 PM Health Maintenance Complete Blood Count + Differential; Status:Active; Requested for:[id number]; Perform:Lab Services - Lab To Draw (Blood Test); Due:61Cqq3236;Ordered; For:Health Maintenance; Ordered By:Jordyn Ramirez; Comprehensive Metabolic Panel; Status:Active; Requested for:31Mar2023; Perform:Lab Services - Lab To Draw (Blood Test); Due:[id number];Ordered; For:Health Maintenance; Ordered By:Jordyn Ramirez; Hemoglobin A1C; Status:Active; Requested for:31Mar2023; Perform:Lab Services - Lab To Draw (Blood Test); Due:70Zui5732;Ordered; For:Health Maintenance; Ordered By:Jordyn Ramirez; Lipid Panel; Status:Active; Requested for:31Mar2023; Perform:Lab Services - Lab To Draw (Blood Test); Due:06Qpx3290;Ordered; For:Health Maintenance; Ordered By:Jordyn Ramirez; TSH WITH REFLEX TO FREE T4 IF ABNORMAL; Status:Active; Requested for:31Mar2023; Perform:Lab Services - Lab To Draw (Blood Test); Due:[id number];Ordered; For:Health Maintenance; Ordered By:Jordyn Ramirez; Patient Discussion/Summary [...] labs History of Present IllnessPresents today for [facility] LAB F/U AND MED CHECK. NO NEW [...] loss, n (more content not included)... Normal [facility] Complete Blood Count + Diffe rentialon 03-10-2022 Basophils/100 WBC (Bld) 1.0 % 0.0 - 2.0 -[facility] Work Phone: Erythrocyte distribution width (RBC) [Ratio] 12.2 % See Below [facility] Work Phone: Comment on above: Reference Range: 11. 5 - 14.5 Hematocrit (Bld) [Volume fraction] 44.2 % See Below [facility] Work Phone: Comment on above: Reference Range: 36. 0 - 46.0 Hemoglobin (Bld) [Mass/Vol] 15.1 g/dL See Below [facility] Work Phone: Comment on above: Reference Range: 12. 0 - 16.0 Lymphocytes/100 WBC (Bld) 26.6 % See Below [facility] Work Phone: Comment on above: Reference Range: 13. 0 - 44.0 MCHC (RBC) [Mass/Vol] 34.3 g/dL See Below [facility] Work Phone: Comment on above: Reference Range: 32. 0 - 36.0 MCV (RBC) [Entitic vol] 88 fL 80 - 100 [facility] Work Phone: [phone] Monocytes/100 WBC (Bld) 7.4 % 2.0 - 10.0 [facility] Work Phone: [phone] Neutrophils/100 WBC (Bld) 64.5 % See Below [facility] Work Phone: Comment on above: Reference Range: 40. 0 - 80.0 Platelets (Bld) [#/Vol] 275 10*3/uL 150 - 450 [facility] Work Phone: [phone] RBC (Bld) [#/Vol] 5.05 {x10E12/L} See Below [facility] Work Phone: Comment on above: Reference Range: 4.0 0 - 5.20 WBC (Bld) [#/Vol] 6.7 10*3/uL 4.4 - 11.3 [facility] Work Phone: [phone] Complete Blood Count + Differential 0.10 {x10E9/L} See Below [facility] Work Phone: Comment on above: Reference Range: 0.0 0 - 0.10 Complete Blood Count + Differential 0.00 {x10E9/L} See Below [facility] Work Phone: Comment on above: Reference Range: 0.0 0 - 0.70 Complete Blood Count + Differential 0.50 {x10E9/L} See Below [facility] Work Phone: Comment on above: Reference Range: 0.1 0 - 1.00 Complete Blood Count + Differential 1.80 {x10E9/L} See Below [facility] Work Phone: Comment on above: Reference Range: 1.2 0 - 4.80 Complete Blood Count + Differential 4.30 {x10E9/L} See Below [facility] Work Phone: Comment on above: Reference Range: 1.2 0 - 7.70 Percent differential counts (%) should be interpreted in the context of the absolute cell counts (cells/L). Complete Blood Count + Differential 0.5 % 0.0 - 6.0 [facility] Work Phone: [phone] Ferritin, Serumon 03-10-2022 Ferritin [Mass/Vol] 77 ug/L 8 - 150 [facility] Work Phone: [phone] Folate, Serumon 03-10-2022 Folate [Mass/Vol] 19.2 ng/mL >5.0 [facility] Work Phone: Comment on above: Low <3.4Borderline 3 .4-5.0Normal >5.0. Patients receiving more than 5 mg/day of biotin may have interference in test results. A sample should be taken no sooner than eight hours after previous dose. Contact the testing laboratory for additional information. Hemoglobin A1Con 03-10-2022 Glucose [Mass/Vol] 103 mg/dL [facility] Work Phone: [phone] HbA1c (Bld) [Mass fraction] 5.2 % [facility] Work Phone: [phone] Comment on above: Diagnosis of Diabete s-Adults Non-Diabetic: < or = 5.6% Increased risk for developing diabetes: 5.7-6.4% Diagnostic of diabetes: > or = 6.5%. Monitoring of Diabetes Age (y) Therapeutic Goal (%) Adults: >18 <7.0 Pediatrics: 13-18 <7.5 7-12 <8.0 0- 6 7.5-8.5 [employer]. Diabetes Care 33(S1), Jul 2009. Laboratory - Chemistry and C hemistry - challengeon 03-10-2022 Albumin BCP dye [Mass/Vol] 4.9 g/dL 3.4 - 5.0 [facility] Work Phone: ALP [Catalytic activity/Vol] 42 U/L 33 - 110 [facility] Work Phone: ALT With P-5'-P [Catalytic activity/Vol] 9 U/L 7 - 45 [facility] Work Phone: Comment on above: Patients treated wit h Sulfasalazine may generate falsely decreased results for ALT. Anion gap [Moles/Vol] 13 mmol/L 10 - 20 [facility] Work Phone: AST With P-5'-P [Catalytic activity/Vol] 16 U/L 9 - 39 [facility] Work Phone: Bilirubin [Mass/Vol] 1.3 mg/dL above high threshold 0.0 - 1.2 [facility] Work Phone: Calcium [Mass/Vol] 9.5 mg/dL 8.6 - 10.3 [facility] Work Phone: Chloride [Moles/Vol] 106 mmol/L 98 - 107 [facility] Work Phone: CO2 [Moles/Vol] 25 mmol/L 21 - 32 [facility] Work Phone: Creatinine [Mass/Vol] 0.85 mg/dL See Below [facility] Work Phone: Comment on above: Reference Range: 0.5 0 - 1.05 Glucose [Mass/Vol] 87 mg/dL 74 - 99 [facility] Work Phone: Iron [Mass/Vol] 141 ug/dL 35 - 150 [facility] Work Phone: Iron binding capacity [Mass/Vol] 349 ug/dL 240 - 445 [facility] Work Phone: Potassium [Moles/Vol] 3.9 mmol/L 3.5 - 5.3 [facility] Work Phone: Protein [Mass/Vol] 7.5 g/dL 6.4 - 8.2 [facility] Work Phone: Sodium [Moles/Vol] 140 mmol/L 136 - 145 [facility] Work Phone: TSH Qn 0.93 m[IU]/L See Below [facility] Work Phone: Comment on above: Reference Range: 0.4 4 - 3.98 TSH testing is performed using different testing methodology at [facility] than at other [facility]. Direct result comparisons should only be made within the same method. Urea nitrogen [Mass/Vol] 15 mg/dL 6 - 23 [facility] Work Phone: Lipid Panelon 03-10-2022 Cholesterol [Mass/Vol] 143 mg/dL 0 - 199 [facility] Work Phone: Comment on above: . [...] dosing. Cholesterol in HDL [Mass/Vol] 58.0 mg/dL [facility] Work Phone: Comment on above: . AGE VERY LOW LOW N ORMAL HIGH 0-19 Y < 35 < 40 40-45 ---- 20- 24 Y ---- < 40 >45 ---- >24 Y ---- < 40 40-60 >60. Cholesterol in LDL [Mass/Vol] 74 mg/dL 0 - 119 [facility] Work Phone: Comment on above: . NEAR BORD AGE DEE DEE RABLE OPTIMAL HIGH HIGH VERY HIGH 0-19 Y 0 - 109 --- 110-129 >/= 130 ---- 20-24 Y 0 - 119 --- 120-159 >/= 160 ---- >24 Y 0 - 99 100-129 130-159 160-189 >/=190. Cholesterol non HDL [Mass/Vol] 85 mg/dL 0 - 149 [facility] Work Phone: Comment on above: AGE DESIRABLE BORDER LINE HIGH HIGH VERY HIGH 0-19 Y 0 - 119 120 - 144 >/= 145 >/= 160 20-24 Y 0 - 149 150 - 189 >/= 190 ---- >24 Y 30 MG/DL ABOVE LDL CHOLESTEROL GOAL. Cholesterol.total/C holesterol in HDL [Mass ratio] 2.5 {ratio} [facility] Work Phone: Comment on above: REF VALUESDESIRABLE < 3.4HIGH RISK > 5.0 Triglyceride [Mass/Vol] 57 mg/dL 0 - 149 [facility] Work Phone: Comment on above: . [...] Lipid Panel 11 mg/dL 0 - 40 [facility] Work Phone: No Panel Informationon 03-10 >90 >90 [facility] Work Phone: Comment on above: CALCULATIONS OF JOSE MATED GFR ARE PERFORMED USING THE 2020 CKD-EPI STUDY REFIT EQUATION WITHOUT THE RACE VARIABLE FOR THE IDMS-TRACEABLE CREATININE METHODS.https://jasn.asnjournals.org/content/early//ASN. 3691502290 40 % 25 - 45 [facility] Work Phone: Vitamin B12, Serumon 022 Cobalamin (Vitamin B12) [Mass/Vol] 215 pg/mL 211 - 911 [facility] Work Phone: Office Visit (Internal Medic ine)on [...] By:Jordyn Ramirez; Comprehensive Metabolic Panel; Status:Active; Requested for:[id number]; Perform:Lab Services - Lab To Draw (Blood [...] attacks; CATE = N; Verified Transmission to [facility]; Last Updated By: Stack[employer]; 03/03/2022 2:58:35 PM Start: PARoxetine HCl - 10 MG Oral Tablet (Paxil); TAKE 1 TABLET DAILY Rx By: Jordyn Ramirez; Dispense: 90 Days ; #:90 Tablet; Refill: 0;For: Generalized anxiety disorder with panic attacks; CATE = N; Verified Transmission to [facility]; Last Updated By: Stack[employer]; 03/03/2022 2:58:27 PM GERD (gastroesophageal reflux disease) Renew: Omeprazole 20 MG Oral Capsule Delayed Release; TAKE 1 CAPSULE Daily Rx By: Jordyn Ramirez; Dispense: 90 Days ; #:90 Capsule; Refill: 3;For: GERD (gastroesophageal reflux disease); CATE = N; Verified Transmission to [facility]; Last Updated By: Stack[employer]; 03/03/2022 2:59:29 PM Patient Discussion/Summary 1 MONTH [...] AND MEDICATIONS (more content not included)... Normal [employer] Tobacco Screening.on 022 Adult depression screening assessment No [facility] Work Phone: Fall risk assessment a) No falls within the last year [facility] Work Phone: Tobacco use status CP a) Yes [facility] Work Phone: Tobacco Screening. Yes [facility] Work Phone: C. trachomatis/GC PCR Panel on [facility] 10-26-2021 C. trachomatis/GC PCR Panel on [facility] Reason for preventing automatic release->Other Is this specimen being sent to an external lab?->No Release to patient->Manual release only [id number]&Urine-First Void^^^Urine&Urine C. trachomatis PCR on GeneXpert: NEGATIVE-Chlamydia [...] with other laboratory and clinical data. Normal [facility] Comment on above: Performed By: #### C [facility] ####[address] [phone] Progress Noteon 10-26-2021 Assistant Refinery Operator Authentication Interface Message Text Patient ID: Luz [...] once for 1 dose - nystatin (MYCOSTATIN) 164375 UNIT/GM OINT ointment; Apply to affected area [...] Blood, Urine Negative Negative POCT Urine Specific [place] 1.015 1.005 - 1.030 POCT Ketones, Urine Negative Negative mg/dl POCT Glucose, Urine Negative Negative mg/dl Normal [facility] Urine Cultureon 10-26-2021 Bacteria identified Cx Nom (U) Is this specimen being sent to an external lab?->No Release to patient->Automatic [id number]&Urine-CCMS^^^Urine& Urine Urine Culture: Enterococcus sp. Source: [facility] Collected: 10/26/21 17:15 Site: Urine Received : 10/26/21 21:53 Urine Culture FINAL 10/28/21 09:26 10,000 - 50,000 CFU/ml of Normal Skin/urogenital ivy present <10,000 CFU/ml Enterococcus sp. If further work-up is needed, providers should call the Microbiology lab within 3 days. Normal [facility] Comment on above: Performed By: #### U RINE ####[address] [phone] SARS-CoV-2 (COVID-19) RT-PCR on 08-04-2021 SARS-CoV-2 (COVID-19) RNA GIOVANNI+probe Ql (Unsp spec) Positive Abnormal [facility] Comment on above: Order Comment: Is th is a pre-procedure screening test?->NoIs this specimen being sent to an external lab?->[id number]&Nasopharyngeal swab^\S\^Nose&Nose Result Comment: POSI TIVE: SARS-CoV-2 RNA [...] using the Chris SARS-CoV-2 assay on the [employer] Chris 6800 System. - Comment: This test has received FDA Emergency Use Authorization (EUA) and has been verified by [facility] This test is only authorized for the [...] at the following links: For Healthcare Providers: www.fda.gov/media/644081/download For Patients: www.fda.gov/media/203314/download - Reference Value: Negative Performed By: #### C OVID ####[address] [phone] CHRIS SARS CoV-2 RT PCR Detected Normal [facility] Comment on above: Order Comment: Is th is a pre-procedure screening test?->NoIs this specimen being sent to an external lab?->[id number]&Nasopharyngeal swab^\S\^Nose&Nose Performed By: #### C OVID ####[address] [phone] Progress Noteon 08-02-2021 Assistant Refinery Operator Authentication Interface Message Text Patient ID: Luz Hinojosa is a 20 y.o. female. Her chief complaint(s) include: Pharyngitis (Post post 3 days), Headache, and Other (Covid exposure in household) Assessment 1. Suspected COVID-19 virus infection 2. Exposure to COVID-19 virus 3. Sore throat 4. Cough 5. Other headache syndrome 6. Rhinorrhea Johnny Escobar was seen today for pharyngitis, headache and [...] CONTROL POCT Control - Valid Lot Number [id number] Normal [facility] SARS-CoV-2 (COVID-19) RT-PCR on 08-02-2021 Date of Symptom Onset [id number] Normal [facility] Comment on above: Order Comment: Is th is a pre-procedure screening test?->NoIs this specimen being sent to an external lab?->[id number]&Nasopharyngeal swab^\S\^Nose&Nose Performed By: #### C OVID ####[facility] of [address] [phone] Employed in Healthcare setting? No Normal [facility] Comment on above: Order Comment: Is th is a pre-procedure screening test?->NoIs this specimen being sent to an external lab?->[id number]&Nasopharyngeal swab^\S\^Nose&Nose Performed By: #### C OVID ####[phone] Hospitalized? No Normal [facility] Comment on above: Order Comment: Is th is a pre-procedure screening test?->NoIs this specimen being sent to an external lab?->[id number]&Nasopharyngeal swab^\S\^Nose&Nose Performed By: #### C OVID ####[place] [phone] ICU? No Normal [facility] Comment on above: Order Comment: Is th is a pre-procedure screening test?->NoIs this specimen being sent to an external lab?->[id number]&Nasopharyngeal swab^\S\^Nose&Nose Performed By: #### C OVID ####[place] [phone] ? Unknown Normal [facility] Comment on above: Order Comment: Is th is a pre-procedure screening test?->NoIs this specimen being sent to an external lab?->[id number]&Nasopharyngeal swab^\S\^Nose&Nose Performed By: #### C OVID ####[place] [phone] Resident in congregate care setting? No Normal [facility] Comment on above: Order Comment: Is th is a pre-procedure screening test?->NoIs this specimen being sent to an external lab?->[id number]&Nasopharyngeal swab^\S\^Nose&Nose Performed By: #### C OVID ####[phone] SARS-CoV-2 (COVID-19) RNA GIOVANNI+probe Ql (Unsp spec) No Normal [facility] Comment on above: Order Comment: Is th is a pre-procedure screening test?->NoIs this specimen being sent to an external lab?->[id number]&Nasopharyngeal swab^\S\^Nose&Nose Performed By: #### C OVID ####[facility] of [address] [phone] Symptomatic as defined by CDC? Yes Normal [facility] Comment on above: Order Comment: Is th is a pre-procedure screening test?->NoIs this specimen being sent to an external lab?->[id number]&Nasopharyngeal swab^\S\^Nose&Nose Performed By: #### C OVID ####[facility] of [address] [phone] Progress Noteon 07-04-2021 Assistant Refinery Operator Authentication Interface Message Text Patient ID: Luz [...] thought content normal. Cognition are normal. Normal [facility] C-Reactive Proteinon 021 C-Reactive Protein 0.5 mg/dL Normal 0.0-1.0 [facility] Comment on above: Order Comment: With differential. Is this specimen being sent to an external lab?->No Release to patient->Automatic [id number]&Blood^\S\^Venous&Venous TIBC will not be run. Is this specimen being sent to an external lab?->No Release to patient->Automatic 57021&Blood^\S\^Venous&Venous Result Comment: CRP determinations in neonates should be interpreted with caution. CRP may be elevated in circumstances not associated with inflammation (e.g. difficult delivery, pneumothorax). In premature neonates CRP levels may not rise to abnormal levels even if sepsis is present; some speculate that immature liver function decreases the ability to generate a CRP response. Performed By: #### C RP #### [place] [address] Comp Metabolic Panelon 06-23 Albumin [Mass/Vol] 4.6 g/dL Normal 3.5-5.0 [facility] Comment on above: Order Comment: With differential. Is this specimen being sent to an external lab?->No Release to patient->Automatic [id number]&Blood^\S\^Venous&Venous TIBC will not be run. Is this specimen being sent to an external lab?->No Release to patient->Automatic 11138&Blood^\S\^Venous&Venous Performed By: #### C MP #### [place] [address] ALP [Catalytic activity/Vol] 42 U/L Normal 35-104 [facility] Comment on above: Order Comment: With differential. Is this specimen being sent to an external lab?->No Release to patient->Automatic 59787&Blood^\S\^Venous&Venous TIBC will not be run. Is this specimen being sent to an external lab?->No Release to patient->Automatic 94910&Blood^\S\^Venous&Venous Performed By: #### C MP #### [place] [address] ALT [Catalytic activity/Vol] 13 U/L Normal 0-31 [facility] Comment on above: Order Comment: With differential. Is this specimen being sent to an external lab?->No Release to patient->Automatic 80680&Blood^\S\^Venous&Venous TIBC will not be run. Is this specimen being sent to an external lab?->No Release to patient->Automatic 05747&Blood^\S\^Venous&Venous Performed By: #### C MP #### [place] [address] AST [Catalytic activity/Vol] 19 U/L Normal 0-31 [facility] Comment on above: Order Comment: With differential. Is this specimen being sent to an external lab?->No Release to patient->Automatic 66596&Blood^\S\^Venous&Venous TIBC will not be run. Is this specimen being sent to an external lab?->No Release to patient->Automatic 82172&Blood^\S\^Venous&Venous Performed By: #### C MP #### [place] [address] Bili,Total 0.7 mg/dl Normal 0.0-1.0 [facility] Comment on above: Order Comment: With differential. Is this specimen being sent to an external lab?->No Release to patient->Automatic 24883&Blood^\S\^Venous&Venous TIBC will not be run. Is this specimen being sent to an external lab?->No Release to patient->Automatic 05922&Blood^\S\^Venous&Venous Performed By: #### C MP #### [place] [address] Calcium [Mass/Vol] 9.7 mg/dL Normal 7.6-11.0 [facility] Comment on above: Order Comment: With differential. Is this specimen being sent to an external lab?->No Release to patient->Automatic 29230&Blood^\S\^Venous&Venous TIBC will not be run. Is this specimen being sent to an external lab?->No Release to patient->Automatic 42037&Blood^\S\^Venous&Venous Performed By: #### C MP #### [place] [address] Chloride [Moles/Vol] 102 mmol/L Normal 96-108 [facility] Comment on above: Order Comment: With differential. Is this specimen being sent to an external lab?->No Release to patient->Automatic 23278&Blood^\S\^Venous&Venous TIBC will not be run. Is this specimen being sent to an external lab?->No Release to patient->Automatic 06460&Blood^\S\^Venous&Venous Performed By: #### C MP #### [place] [address] CO2 [Moles/Vol] 24.4 mmol/L Normal 22.0-29.0 [facility] Comment on above: Order Comment: With differential. Is this specimen being sent to an external lab?->No Release to patient->Automatic 73940&Blood^\S\^Venous&Venous TIBC will not be run. Is this specimen being sent to an external lab?->No Release to patient->Automatic 84616&Blood^\S\^Venous&Venous Performed By: #### C MP #### [place] [address] Creatinine [Mass/Vol] 0.74 mg/dL Normal 0.50-1.00 [facility] Comment on above: Order Comment: With differential. Is this specimen being sent to an external lab?->No Release to patient->Automatic 35933&Blood^\S\^Venous&Venous TIBC will not be run. Is this specimen being sent to an external lab?->No Release to patient->Automatic 06136&Blood^\S\^Venous&Venous Result Comment: Premature 0.3-1.0 mg/dL Performed By: #### C MP #### [place] [address] Glucose [Mass/Vol] 68 mg/dL Low 70-99 [facility] Comment on above: Order Comment: With differential. Is this specimen being sent to an external lab?->No Release to patient->Automatic 93001&Blood^\S\^Venous&Venous TIBC will not be run. Is this specimen being sent to an external lab?->No Release to patient->Automatic 58146&Blood^\S\^Venous&Venous Result Comment: Criteria for Diagnosis of Diabetes(Effective 12/26/10): Fasting specimen (no caloric intake for at least 8 hours). <100 mg/dl Normal 100-125 mg/dl Increased Risk for Diabetes >125 mg/dl Diagnostic for Diabetes Random Glucose (any time of day without regard to last meal). >=200 mg/dl plus Classic Symptoms of Diabetes Performed By: #### C MP #### [place] [address] Potassium [Moles/Vol] 4.8 mmol/L Normal 3.3-5.1 [facility] Comment on above: Order Comment: With differential. Is this specimen being sent to an external lab?->No Release to patient->Automatic 90673&Blood^\S\^Venous&Venous TIBC will not be run. Is this specimen being sent to an external lab?->No Release to patient->Automatic 99623&Blood^\S\^Venous&Venous Performed By: #### C MP #### [place] [address] Protein [Mass/Vol] 7.6 g/dL Normal 5.9-8.4 [facility] Comment on above: Order Comment: With differential. Is this specimen being sent to an external lab?->No Release to patient->Automatic 32885&Blood^\S\^Venous&Venous TIBC will not be run. Is this specimen being sent to an external lab?->No Release to patient->Automatic 15363&Blood^\S\^Venous&Venous Performed By: #### C MP #### [place] [address] Sodium [Moles/Vol] 139 mmol/L Normal 133-145 [facility] Comment on above: Order Comment: With differential. Is this specimen being sent to an external lab?->No Release to patient->Automatic 47202&Blood^\S\^Venous&Venous TIBC will not be run. Is this specimen being sent to an external lab?->No Release to patient->Automatic 05208&Blood^\S\^Venous&Venous Performed By: #### C MP #### [place] [address] Urea nitrogen [Mass/Vol] 16 mg/dL Normal 4-19 [facility] Comment on above: Order Comment: With differential. Is this specimen being sent to an external lab?->No Release to patient->Automatic 35094&Blood^\S\^Venous&Venous TIBC will not be run. Is this specimen being sent to an external lab?->No Release to patient->Automatic 89187&Blood^\S\^Venous&Venous Performed By: #### C MP #### [place] [address] Complete Blood Counton 06-23 Differential Complete Automated Normal [facility] Comment on above: Order Comment: With differential. Is this specimen being sent to an external lab?->No Release to patient->Automatic 57916&Blood^\S\^Venous&Venous TIBC will not be run. Is this specimen being sent to an external lab?->No Release to patient->Automatic 86961&Blood^\S\^Venous&Venous Performed By: #### C BC #### [place] [address] Basophils/100 WBC (Bld) 0.60 % Normal 0.00-1.00 [facility] Comment on above: Order Comment: With differential. Is this specimen being sent to an external lab?->No Release to patient->Automatic 49036&Blood^\S\^Venous&Venous TIBC will not be run. Is this specimen being sent to an external lab?->No Release to patient->Automatic 38378&Blood^\S\^Venous&Venous Performed By: #### C BC #### [address] [address] Eosinophils/100 WBC (Bld) 1.40 % Normal 0.00-3.00 [facility] Comment on above: Order Comment: With differential. Is this specimen being sent to an external lab?->No Release to patient->Automatic 63471&Blood^\S\^Venous&Venous TIBC will not be run. Is this specimen being sent to an external lab?->No Release to patient->Automatic 84787&Blood^\S\^Venous&Venous Performed By: #### C BC #### [address] [address] Erythrocyte distribution width (RBC) [Ratio] 11.5 % Normal 0.0-14.4 [facility] Comment on above: Order Comment: With differential. Is this specimen being sent to an external lab?->No Release to patient->Automatic 64370&Blood^\S\^Venous&Venous TIBC will not be run. Is this specimen being sent to an external lab?->No Release to patient->Automatic 96202&Blood^\S\^Venous&Venous Performed By: #### C BC #### [place] [id number] Hematocrit (Bld) [Volume fraction] 42.3 % Normal 36.0-44.0 [facility] Comment on above: Order Comment: With differential. Is this specimen being sent to an external lab?->No Release to patient->Automatic 40586&Blood^\S\^Venous&Venous TIBC will not be run. Is this specimen being sent to an external lab?->No Release to patient->Automatic 32792&Blood^\S\^Venous&Venous Performed By: #### C BC #### [place] [address] Hemoglobin (Bld) [Mass/Vol] 14.7 g/dL Normal 12.0-15.0 [facility] Comment on above: Order Comment: With differential. Is this specimen being sent to an external lab?->No Release to patient->Automatic 17245&Blood^\S\^Venous&Venous TIBC will not be run. Is this specimen being sent to an external lab?->No Release to patient->Automatic 72529&Blood^\S\^Venous&Venous Performed By: #### C BC #### [place] [address] Immature granulocytes/100 WBC (Bld) 0.20 % Normal [facility] Comment on above: Order Comment: With differential. Is this specimen being sent to an external lab?->No Release to patient->Automatic [id number]&Blood^\S\^Venous&Venous TIBC will not be run. Is this specimen being sent to an external lab?->No Release to patient->Automatic 80702&Blood^\S\^Venous&Venous Result Comment: Tammie ture Granulocyte Percent includes promyelocytes, myelocytes, and metamyelocytes. IG% > 1.0 indicates a left shift is present. With automated differentials, bands are included in the neutrophil count and not in the Immature Granulocyte Percent. Performed By: #### C BC #### [address] [id number] Lymphocytes/100 WBC (Bld) 30.5 % Normal 24.0-44.0 [facility] Comment on above: Order Comment: With differential. Is this specimen being sent to an external lab?->No Release to patient->Automatic 74864&Blood^\S\^Venous&Venous TIBC will not be run. Is this specimen being sent to an external lab?->No Release to patient->Automatic 31258&Blood^\S\^Venous&Venous Performed By: #### C BC #### [address] [id number] MCH (RBC) [Entitic mass] 30.0 pg Normal 26.0-34.0 [facility] Comment on above: Order Comment: With differential. Is this specimen being sent to an external lab?->No Release to patient->Automatic 43650&Blood^\S\^Venous&Venous TIBC will not be run. Is this specimen being sent to an external lab?->No Release to patient->Automatic 37895&Blood^\S\^Venous&Venous Performed By: #### C BC #### [address] [id number] MCHC 34.8 % Normal 31.0-37.0 [facility] Comment on above: Order Comment: With differential. Is this specimen being sent to an external lab?->No Release to patient->Automatic 11765&Blood^\S\^Venous&Venous TIBC will not be run. Is this specimen being sent to an external lab?->No Release to patient->Automatic 87249&Blood^\S\^Venous&Venous Performed By: #### C BC #### [address] [id number] MCV (RBC) [Entitic vol] 86.3 fL Normal 80.0-100.0 [facility] Comment on above: Order Comment: With differential. Is this specimen being sent to an external lab?->No Release to patient->Automatic 92757&Blood^\S\^Venous&Venous TIBC will not be run. Is this specimen being sent to an external lab?->No Release to patient->Automatic 23568&Blood^\S\^Venous&Venous Performed By: #### C BC #### [place] [address] Monocytes/100 WBC (Bld) 8.70 % High 3.00-6.00 [facility] Comment on above: Order Comment: With differential. Is this specimen being sent to an external lab?->No Release to patient->Automatic 61288&Blood^\S\^Venous&Venous TIBC will not be run. Is this specimen being sent to an external lab?->No Release to patient->Automatic 02315&Blood^\S\^Venous&Venous Performed By: #### C BC #### [place] [address] Neutrophils (Bld) [#/Vol] 5.2 10*3/uL Normal 2.0-7.2 [facility] Comment on above: Order Comment: With differential. Is this specimen being sent to an external lab?->No Release to patient->Automatic 93276&Blood^\S\^Venous&Venous TIBC will not be run. Is this specimen being sent to an external lab?->No Release to patient->Automatic 76640&Blood^\S\^Venous&Venous Performed By: #### C BC #### [address] [address] Neutrophils/100 WBC (Bld) 58.6 % Normal 35.0-66.0 [facility] Comment on above: Order Comment: With differential. Is this specimen being sent to an external lab?->No Release to patient->Automatic 92660&Blood^\S\^Venous&Venous TIBC will not be run. Is this specimen being sent to an external lab?->No Release to patient->Automatic 69729&Blood^\S\^Venous&Venous Performed By: #### C BC #### [address] [address] Nucleated RBC/100 WBC (Bld) [Ratio] 0.0 % Normal -1.0-0.0 [facility] Comment on above: Order Comment: With differential. Is this specimen being sent to an external lab?->No Release to patient->Automatic 65439&Blood^\S\^Venous&Venous TIBC will not be run. Is this specimen being sent to an external lab?->No Release to patient->Automatic 63319&Blood^\S\^Venous&Venous Performed By: #### C BC #### [place] [address] Platelet mean volume (Bld) [Entitic vol] 10.7 fL Normal [facility] Comment on above: Order Comment: With differential. Is this specimen being sent to an external lab?->No Release to patient->Automatic 57790&Blood^\S\^Venous&Venous TIBC will not be run. Is this specimen being sent to an external lab?->No Release to patient->Automatic 71021&Blood^\S\^Venous&Venous Result Comment: MPV is platelet range and age dependent Performed By: #### C BC #### [address] [address] Platelets (Bld) [#/Vol] 285 10*3/uL Normal 150-450 [facility] Comment on above: Order Comment: With differential. Is this specimen being sent to an external lab?->No Release to patient->Automatic 02015&Blood^\S\^Venous&Venous TIBC will not be run. Is this specimen being sent to an external lab?->No Release to patient->Automatic 89694&Blood^\S\^Venous&Venous Performed By: #### C BC #### [address] [id number] RBC 4.90 10E12/L Normal 4.00-4.90 [facility] Comment on above: Order Comment: With differential. Is this specimen being sent to an external lab?->No Release to patient->Automatic 32885&Blood^\S\^Venous&Venous TIBC will not be run. Is this specimen being sent to an external lab?->No Release to patient->Automatic 77277&Blood^\S\^Venous&Venous Performed By: #### C BC #### [place] [address] WBC (Bld) [#/Vol] 8.8 10*3/uL Normal 4.5-11.0 [facility] Comment on above: Order Comment: With differential. Is this specimen being sent to an external lab?->No Release to patient->Automatic 24715&Blood^\S\^Venous&Venous TIBC will not be run. Is this specimen being sent to an external lab?->No Release to patient->Automatic 01003&Blood^\S\^Venous&Venous Performed By: #### C BC #### [place] [address] Ferritinon 06-23-2021 Ferritin [Mass/Vol] 44 ng/mL Normal 10-291 [facility] Comment on above: Order Comment: With differential. Is this specimen being sent to an external lab?->No Release to patient->Automatic 14398&Blood^\S\^Venous&Venous TIBC will not be run. Is this specimen being sent to an external lab?->No Release to patient->Automatic 62600&Blood^\S\^Venous&Venous Performed By: #### F ERTN #### [place] [address] TSH with reflex T4FRon 06-23 TSH with reflex T4FR 2.171 uIU/mL Normal 0.350-5.500 [facility] Comment on above: Order Comment: With differential. Is this specimen being sent to an external lab?->No Release to patient->Automatic 83803&Blood^\S\^Venous&Venous TIBC will not be run. Is this specimen being sent to an external lab?->No Release to patient->Automatic 10724&Blood^\S\^Venous&Venous Performed By: #### T SHR #### [address] [address] Vitamin D 25 OHon 06-23-2021 25 OH Vitamin D 37 ng/mL Normal 30-100 [facility] Comment on above: Order Comment: With differential. Is this specimen being sent to an external lab?->No Release to patient->Automatic 95493&Blood^\S\^Venous&Venous TIBC will not be run. Is this specimen being sent to an external lab?->No Release to patient->Automatic 96619&Blood^\S\^Venous&Venous Result Comment: Refe rence ranges provided by [facility] are based on Endocrine Society Guidelines: Level Characterization <21 ng/mL Vitamin D deficiency 21-29 ng/mL Suboptimal Vitamin D status 30-100 ng/mL Optimal Vitamin D status >100 ng/mL Potentially toxic Vitamin D effects NOTE: New Reference Ranges effective 18 Performed By: #### V 25DH #### [address] [address] Progress Noteon 06-22-2021 Assistant Refinery Operator Authentication Interface Message Text Patient ID: Luz [...] Line *Present Clear Background *Present Lot Number [id number] POCT urinalysis dipstick Collection Time: 06/22/21 5:51 PM Result Value Ref Range POCT, Leukocytes, Urine Negative Negative POCT Nitrite, Urine Negative Negative POCT Protein, Urine Trace Negative - Trace mg/dl POCT Urine pH 6.0 5.0 - 8.0 pH POCT Blood, Urine Negative Negative POCT Urine Specific [place] 1.030 1.005 - 1.030 POCT Ketones, Urine Negative Negative mg/dl POCT Glucose, Urine Negative Negative mg/dl Normal [facility] Progress Noteon 02-15-2021 Assistant Refinery Operator Authentication Interface Message Text Patient ID: Luz [...] Line *Present Clear Background *Present Lot Number [id number] Normal [facility] Strep Cultureon 02-15-2021 Strep Culture Is this specimen javier ng sent to an external lab?->No Release to patient->Automatic 69440&Throat swab^^^Throat swab&Throat swab Strep Culture: No Beta hemolytic Streptococci isolated. Source: THRSW Collected: 02/15/21 13:17 Site: Throat swab Received : 02/15/21 20:06 Strep Culture FINAL 02/17/21 07:53 No Beta hemolytic Streptococci isolated. Normal [facility] Comment on above: Performed By: #### S TREP #### [facility] [address] [place] [id number] Progress Noteon 12-14-2020 Assistant Refinery Operator Authentication Interface Message Text Patient ID: Luz [...] She exh (more content not included)... Normal [facility] Assistant Refinery Operator Authentication Interface Message Text Luz Hinojosa is [...] Assessment - CRAFFT Authorized by: Page Adan APRN-CNP CRAFFT Results: 1. Drink more than a few sips of beer, wine, or any drink containing alcohol? Put 0 if none.: 0 2. Use any marijuana (weed, oil, or hash by smoking, vaping, or in food) or synthetic marijuana (like K2, Spice )? Put 0 if none.: 0 3. Use anything else to get high (like other illegal drugs, prescription or xcqe-gfl-iufhbcy medications, and things that you sniff, marte, or vape)? Put 0 if none.: 0 4. Use any tobacco or nicotine products (for example, cigarettes, e-cigarettes, hookahs or smokeless tobacco)?: 0 5. Have you ever ridden in a CAR driven by someone (including yourself) who was high or had been using alcohol or drugs?: No Electronically signed by: Page Adan, JOB ANALYST-CUPOLA LINER Normal [facility] EMERGENCY REPORTon [address] [facility] EMERGENCY ROOM REPORT NAME ACCOUNT SEX AGE ADMIT DISCHARGE PT MED. RECORD# NUMBER DATE DATE TYPE ASHISH [id number] F 18 04/01/19 04/01/19 3 LUZ Alves [id number] ROOM: ER DATE OF : 2000 DICTATING [...] Pharynx is symmetric without any RPA, PPA, PODODERMATOLOGIST. There is no significant dental problems. She [...] ambulatory from the emergency room. Follow up [facility]. Return p.r.n. as necessary. In general she appears to be nontoxic and she is pleasant Page 1 of 2 LUZ HINOJOSA Emergency Room Report and alert and oriented. DIAGNOSIS: Upper respiratory infection, sinus congestion and left otitis media. Dictated By: Sherri Lisa DO 04/02/19 04:52 JOB #: [id number] Transcribed By: yesenia 04/02/19 06:23 Electronically signed by: E-SIGN SHERRI LISA DO 04/07/19 21:31 Page 2 of 2 LUZ HINOJOSA Emergency Room Report Normal [facility] XR Chest 2 Viewson 8 XR Chest 2 Views Exam Date/Time: 04/01/2018 23:14 EDT Reason for Exam: Cough Report STUDY: XR Chest 2 Views; 04/01/2018 11:14 pm INDICATION: Cough. COMPARISON: 09/12/2017 ACCESSION NUMBER(S): [id number] ORDERING CLINICIAN: Sherri Payton FINDINGS: CARDIOMEDIASTINAL SILHOUETTE: Cardiomediastinal silhouette is normal in size and configuration. LUNGS: No focal consolidation, effusion, edema, or pneumothorax. ABDOMEN: No remarkable upper abdominal findings. BONES: No acute osseous changes. IMPRESSION: 1. No evidence of acute cardiopulmonary process. FINAL REPORT Dictated: 04/02/2018 0:02 am Rene Toth MD Signed (Electronic Signature): 04/02/2018 0:02 am Signed by: Rene Toth MD Technologist: [facility] Vital Signs Date Time Vital Sign Value Performing Clinician Facility 08-21-2023 14:36-0500 Body height 165.1 cm Anika Richardson MD Work Phone: [facility] 08-21-2023 14:36-0500 Body mass index (BMI) [Ratio] 19.87 kg/m2 Anika Richardson MD Work Phone: [facility] 08-21-2023 14:36-0500 Body weight 54.16 kg Anika Richardson MD Work Phone: [facility] 08-21-2023 14:36-0500 Diastolic blood pressure 70 mm[Hg] Anika Richardson MD Work Phone: [facility] 08-21-2023 14:36-0500 Systolic blood pressure 116 mm[Hg] Anika Richardson MD Work Phone: [facility] 06-19-2023 17:27-0500 SaO2% (BldA) [Mass fraction] 98 % Jordyn Thakur APRN-CUPOLA LINER Work Phone: [facility] 06-19-2023 17:22-0500 Body height 165.1 cm Jordyn Thakur APRN-CUPOLA LINER Work Phone: [facility] 06-19-2023 17:22-0500 Body mass index (BMI) [Ratio] 19.64 kg/m2 Jordyn Thakur APRN-CUPOLA LINER Work Phone: [facility] 06-19-2023 17:22-0500 Body temperature 98.2 [degF] Jordyn Thakur APRN-CUPOLA LINER Work Phone: [facility] 06-19-2023 17:22-0500 Body weight 53.52 kg Jordyn Thakur APRN-CUPOLA LINER Work Phone: [facility] 06-19-2023 17:22-0500 Diastolic blood pressure 81 mm[Hg] Jordyn Thakur JOB ANALYST-CUPOLA LINER Work Phone: [facility] 06-19-2023 17:22-0500 Heart rate 98 /min Jordyn Thakur JOB ANALYST-[employer]OLA LINER Work Phone: [facility] 06-19-2023 17:22-0500 Respiratory rate 16 /min Jordyn Thakur JOB ANALYST-[employer]OLA [employer]ER Work Phone: [facility] 06-19-2023 17:22-0500 Systolic blood pressure 124 mm[Hg] Jordyn Thakur JOB ANALYST-CUPOLA LINER Work Phone: [facility] 05-18-2023 10:33-0400 Body height 165.1 cm Jordyn Thakur JOB ANALYST-C[employer]OLA LINER Work Phone: [facility] 05-18-2023 10:33-0400 Body mass index (BMI) [Ratio] 19.64 kg/m2 Jordyn Thakur JOB ANALYST-[employer]OLA LINER Work Phone: [facility] 05-18-2023 10:33-0400 Body weight 53.52 kg Jordyn Thakur JOB ANALYST-CUPOLA LINER Work Phone: [facility] 05-18-2023 10:33-0400 Diastolic blood pressure 74 mm[Hg] Jordyn Thakur JOB ANALYST-CUPOLA LINER Work Phone: [facility] 05-18-2023 10:33-0400 Heart rate 98 /min Jordyn Thakur JOB ANALYST-C[employer]OLA LINER Work Phone: [facility] 05-18-2023 10:33-0400 SaO2% (BldA) [Mass fraction] 99 % Jordyn Thakur JOB ANALYST-CUPOLA LINER Work Phone: [facility] 05-18-2023 10:33-0400 Systolic blood pressure 107 mm[Hg] Jordyn Thakur JOB ANALYST-CUPOLA LINER Work Phone: [facility] 04-23-2023 09:48-0400 Body height 165.1 cm Kemi Echevarria MD Work Phone: [facility] 04-23-2023 09:48-0400 Body mass index (BMI) [Ratio] 19.64 kg/m2 Kemi Echevarria MD Work Phone: [facility] 04-23-2023 09:48-0400 Body weight 53.52 kg Kemi Echevarria MD Work Phone: [facility] 04-23-2023 09:48-0400 Diastolic blood pressure 60 mm[Hg] Kemi Echevarria MD Work Phone: [facility] 04-23-2023 09:48-0400 Heart rate 125 /min Kemi Echevarria MD Work Phone: [facility] 04-23-2023 09:48-0400 SaO2% (BldA) [Mass fraction] 99 % Kemi Echevarria MD Work Phone: [facility] 04-23-2023 09:48-0400 Systolic blood pressure 120 mm[Hg] Kemi Echevarria MD Work Phone: [facility] 04-13-2023 17:00-0400 Diastolic blood pressure 88 mm[Hg] Page Josy Other Phone: [facility] 04-13-2023 17:00-0400 Heart rate 83 /min Page Josy Other Phone: [facility] 04-13-2023 17:00-0400 Respiratory rate 18 /min Page Josy Other Phone: [facility] 04-13-2023 17:00-0400 SaO2% (BldA) [Mass fraction] 100 % Page Josy Other Phone: [facility] 04-13-2023 17:00-0400 Systolic blood pressure 128 mm[Hg] Page Josy Other Phone: [facility] 04-13-2023 15:13-0400 Body temperature 98.06 [degF] Page Josy Other Phone: [facility] 04-13-2023 15:13-0400 Body weight 55 kg Page Josy Other Phone: [facility] 04-11-2023 10:00-0400 Body temperature 97.88 [degF] Page Josy Other Phone: [facility] 04-11-2023 10:00-0400 Diastolic blood pressure 84 mm[Hg] Page Josy Other Phone: [facility] 04-11-2023 10:00-0400 Heart rate 81 /min Page Josy Other Phone: [facility] 04-11-2023 10:00-0400 Respiratory rate 17 /min Page Josy Other Phone: [facility] 04-11-2023 10:00-0400 SaO2% (BldA) [Mass fraction] 99 % Page Josy Other Phone: [facility] 04-11-2023 10:00-0400 Systolic blood pressure 122 mm[Hg] Page Josy Other Phone: [facility] 11-06-2022 20:48-0400 Body height 165.1 cm Page Josy Other Phone: [facility] 11-06-2022 20:48-0400 Body temperature 97.7 [degF] Page Josy Other Phone: [facility] 11-06-2022 20:48-0400 Body weight 54.5 kg Page Josy Other Phone: [facility] 11-06-2022 20:48-0400 Diastolic blood pressure 79 mm[Hg] Page Josy Other Phone: [facility] 11-06-2022 20:48-0400 Heart rate 92 /min Page Josy Other Phone: [facility] 11-06-2022 20:48-0400 Respiratory rate 18 /min Page Josy Other Phone: [facility] 11-06-2022 20:48-0400 SaO2% (BldA) [Mass fraction] 97 % Page Josy Other Phone: [facility] 11-06-2022 20:48-0400 Systolic blood pressure 133 mm[Hg] Page oJsy Other Phone: [facility] 08-24-2022 18:30-0500 Diastolic blood pressure 105 mm[Hg] Page Josy Other Phone: [facility] 08-24-2022 18:30-0500 Heart rate 88 /min Page Josy Other Phone: [facility] 08-24-2022 18:30-0500 Respiratory rate 15 /min Page Josy Other Phone: [facility] 08-24-2022 18:30-0500 SaO2% (BldA) [Mass fraction] 100 % Page Josy Other Phone: [facility] 08-24-2022 18:30-0500 Systolic blood pressure 129 mm[Hg] Page Josy Other Phone: [facility] 08-24-2022 16:15-0500 Body height 165.1 cm Page Josy Other Phone: [facility] 08-24-2022 16:15-0500 Body temperature 97.7 [degF] Page Josy Other Phone: [facility] 08-24-2022 16:15-0500 Body weight 54.5 kg Page Josy Other Phone: [facility] 08-03-2022 11:02-0500 Body height 165.1 cm Jordyn D Thakur Work Phone: [facility] Work Phone: 08-03-2022 11:02-0500 Body mass index (BMI) [Ratio] 21.2 kg/m2 Jordyn D Thakur Work Phone: [facility] Work Phone: 08-03-2022 11:02-0500 Body surface area Derived from formula 1.63 m2 Jordyn D Thakur Work Phone: [facility] Work Phone: 08-03-2022 11:02-0500 Body weight 57.78 kg Jordyn D Thakur Work Phone: [facility] Work Phone: 08-03-2022 11:02-0500 Diastolic blood pressure 74 mm[Hg] Jordyn D Thakur Work Phone: [facility] Work Phone: 08-03-2022 11:02-0500 Heart rate 88 /min Jordyn D Thakur Work Phone: [facility] Work Phone: 08-03-2022 11:02-0500 Systolic blood pressure 116 mm[Hg] Jordyn Jason Thakur Work Phone: [facility] Work Phone: 06-14-2022 15:28-0500 Body height 165.1 cm Jordyn D Thakur Work Phone: [facility] Work Phone: 06-14-2022 15:28-0500 Body mass index (BMI) [Ratio] 19.64 kg/m2 Jordyn D Thakur Work Phone: [facility] Work Phone: 06-14-2022 15:28-0500 Body surface area Derived from formula 1.58 m2 Jordyn Jason Simon Work Phone: [facility] Work Phone: 06-14-2022 15:28-0500 Body weight 53.52 kg Jordyn Jason Thakur Work Phone: [facility] Work Phone: 06-14-2022 15:28-0500 Diastolic blood pressure 82 mm[Hg] Jordyn Gomez Simon Work Phone: [facility] Work Phone: 06-14-2022 15:28-0500 Heart rate 101 /min Jordyn Gomez Simon Work Phone: [facility] Work Phone: 06-14-2022 15:28-0500 Systolic blood pressure 118 mm[Hg] Jordyn Gomez Simon Work Phone: [facility] Work Phone: 06-06-2022 14:14-0500 Body height 165.1 cm Jordyn Jason Ashley Work Phone: [facility] Work Phone: 06-06-2022 14:14-0500 Body mass index (BMI) [Ratio] 19.64 kg/m2 Jordyn Jason Ashley Work Phone: [facility] Work Phone: 06-06-2022 14:14-0500 Body surface area Derived from formula 1.58 m2 Jordyn Jason Ramirez Work Phone: [facility] Work Phone: 06-06-2022 14:14-0500 Body weight 53.52 kg Jordyn D Ramirez Work Phone: [facility] Work Phone: 06-06-2022 14:14-0500 Diastolic blood pressure 70 mm[Hg] Jordyn Jason Ramirez Work Phone: [facility] Work Phone: 06-06-2022 14:14-0500 Heart rate 108 /min Jordyn Jason NguyễnRamirez Work Phone: [facility] Work Phone: 06-06-2022 14:14-0500 SaO2% (BldA) [Mass fraction] 99 % Jordyn D Ramirez Work Phone: [facility] Work Phone: 06-06-2022 14:14-0500 Systolic blood pressure 112 mm[Hg] Jordyn D Ramirez Work Phone: [facility] Work Phone: 05-02-2022 08:59-0400 Body height 165.1 cm Jordyn D Ramirez Work Phone: [facility] Work Phone: 05-02-2022 08:59-0400 Body mass index (BMI) [Ratio] 17.81 kg/m2 Jordyn Jason NguyễnRamirez Work Phone: [facility] Work Phone: 05-02-2022 08:59-0400 Body surface area Derived from formula 1.52 m2 Jordyn D Ramirez Work Phone: [facility] Work Phone: 05-02-2022 08:59-0400 Body weight 48.53 kg Jordyn D Ramirez Work Phone: [facility] Work Phone: 05-02-2022 08:59-0400 Diastolic blood pressure 68 mm[Hg] Jordyn D Ramirez Work Phone: [facility] Work Phone: 05-02-2022 08:59-0400 Heart rate 118 /min Jordyn D Ramirez Work Phone: [facility] Work Phone: 05-02-2022 08:59-0400 Systolic blood pressure 102 mm[Hg] Jordyn D Ramirez Work Phone: [facility] Work Phone: 03-03-2022 14:28-0400 Body height 165.1 cm Jordyn Jason NguyễnRamirez Work Phone: [facility] Work Phone: 03-03-2022 14:28-0400 Body mass index (BMI) [Ratio] 18.47 kg/m2 Jordyn Nguyễnkins Work Phone: [facility] Work Phone: 03-03-2022 14:28-0400 Body surface area Derived from formula 1.54 m2 Jordyn Nguyễnkins Work Phone: [facility] Work Phone: 03-03-2022 14:28-0400 Body weight 50.35 kg Jordyn Ramirez Work Phone: [facility] Work Phone: 03-03-2022 14:28-0400 Diastolic blood pressure 72 mm[Hg] Jordyn Jason NguyễnRamirez Work Phone: [facility] Work Phone: 03-03-2022 14:28-0400 Heart rate 84 /min Jordyn Jason NguyễnRamirez Work Phone: [facility] Work Phone: 03-03-2022 14:28-0400 Systolic blood pressure 110 mm[Hg] Jordyn Jason NguyễnRamirez Work Phone: [facility] Work Phone: 01-04-2021 13:50-0400 Diastolic blood pressure 70 mm[Hg] Page Adan Other Phone: [facility] 01-04-2021 13:50-0400 Diastolic blood pressure 73 mm[Hg] Page Josy Other Phone: [facility] 01-04-2021 13:50-0400 Diastolic blood pressure 77 mm[Hg] Page Josy Other Phone: [facility] 01-04-2021 13:50-0400 Heart rate 79 /min Page Josy Other Phone: [facility] 01-04-2021 13:50-0400 Heart rate 77 /min Page Josy Other Phone: [facility] 01-04-2021 13:50-0400 Heart rate 89 /min Page Josy Other Phone: [facility] 01-04-2021 13:50-0400 Systolic blood pressure 104 mm[Hg] Page Josy Other Phone: [facility] 01-04-2021 13:50-0400 Systolic blood pressure 113 mm[Hg] Page Josy Other Phone: [facility] 01-04-2021 13:38-0400 Respiratory rate 20 /min Page Josy Other Phone: [facility] 01-04-2021 11:45-0400 Body height 165.1 cm Page Josy Other Phone: [facility] 01-04-2021 11:45-0400 Body temperature 98.06 [degF] Page Josy Other Phone: [facility] 01-04-2021 11:45-0400 Body weight 60.5 kg Page Josy Other Phone: [facility] 01-04-2021 11:45-0400 SaO2% (BldA) [Mass fraction] 98 % Page Josy Other Phone: [facility] Encounters Encounter Date Encounter Type Care Provider Facility Start: 02-04-2024 End: 02-04-2024 ambulatory Anika Bob [facility] Start: 02-04-2024 End: 02-04-2024 Lab Drop off Anika Bob [facility] Start: 01-09-2024 End: 01-09-2024 ambulatory Anika Bob Facility[facility] Start: 01-09-2024 End: 01-09-2024 Patient encounter procedure Anika Bob [facility] Start: 10-10-2023 End: 10-10-2023 ambulatory [facility] Start: 10-10-2023 End: 10-10-2023 Office outpatient visit 15 minutes Jordyn Thakur JOB ANALYST-CUPOLA LINER Work Phone: [facility] Comment on above: Generalized anxiety disorder with panic attacks Start: 09-22-2023 End: 09-22-2023 ambulatory Anika Bob [facility] Start: 09-22-2023 End: 09-22-2023 Patient encounter procedure Anika Bob [facility] Start: 09-19-2023 End: 09-19-2023 ambulatory [facility] Start: 09-19-2023 End: 09-19-2023 Office outpatient visit 25 minutes Jordyn Thakur JOB ANALYST-C[employer]OLA LINER Work Phone: [facility] Comment on above: Nausea (Primary Dx); Nasal congestion; Acute non-recurrent sinusitis, unspecified location Start: 09-12-2023 End: 09-12-2023 ambulatory [facility] Start: 09-12-2023 End: 09-12-2023 Office outpatient visit 25 minutes Jordyn Thakur JOB ANALYST-C[employer]OLA LINER Work Phone: [facility] Comment on above: Generalized anxiety disorder with panic attacks (Primary Dx) Start: 08-27-2023 End: 08-28-2023 ambulatory [facility] Start: 08-21-2023 End: 08-21-2023 ambulatory [facility] Start: 08-21-2023 End: 08-21-2023 Office outpatient new 30 minutes Anika Richardson MD Work Phone: [facility] Building Comment on above: Family planning coun seling (Primary Dx) Start: 07-13-2023 End: 07-13-2023 ambulatory [facility] Start: 06-19-2023 End: 06-19-2023 Emergency department patient visit [facility] Start: 06-19-2023 End: 06-19-2023 Emergency department patient visit Jordyn Thakur JOB ANALYST-CUPOLA LINER Work Phone: [facility] Emergency Medicine Comment on above: Urinary tract infect ion without hematuria, site unspecified (Primary Dx) Start: 05-18-2023 End: 05-18-2023 ambulatory [facility] Start: 05-18-2023 End: 05-18-2023 Office outpatient visit 25 minutes Jordyn Thakur JOB ANALYST-CUPOLA LINER Work Phone: [facility] Comment on above: Urinary frequency (P rimary Dx); Urinary tract infection with hematuria, site unspecified; Generalized anxiety disorder with panic attacks; Gastroesophageal reflux disease without esophagitis Start: 04-23-2023 End: 04-23-2023 ambulatory [facility] Ambulatory Start: 04-23-2023 End: 04-23-2023 Office outpatient visit 25 minutes Kemi Echevarria MD Work Phone: [facility] Comment on above: H/O urinary tract in fection (Primary Dx); Generalized anxiety disorder with panic attacks Start: 04-13-2023 End: 04-13-2023 Emergency department patient visit Chris Blue [facility] Emergency 14 Start: 04-09-2023 End: 04-11-2023 ambulatory Ms. Jordyn Thakur Facility:[id number] Start: 04-09-2023 End: 04-11-2023 Evaluation and management of inpatient Bautista Villanueva [facility] 3 [facility] 310 01 Start: 03-27-2023 End: 03-27-2023 Emergency department patient visit JORDYN SARGENT ASHLEY [facility] Start: 02-14-2023 End: 02-14-2023 ambulatory [facility] Start: 11-06-2022 End: 11-06-2022 Emergency department patient visit Alie Flor [facility] Emergency 11 Start: 10-20-2022 End: 10-20-2022 Office outpatient visit 15 minutes Jrodyn Thakur JOB ANALYST-C[employer]OLA LINER Work Phone: [facility] Comment on above: Vaginal yeast infect ion (Primary Dx) Start: 10-02-2022 End: 10-02-2022 Emergency department patient visit JORDYN RAMIREZ [facility] Start: 08-31-2022 ambulatory [employer]A [employer]ER JORDYN Sue acility:[id number] Start: 08-24-2022 End: 08-24-2022 Emergency department patient visit Tyrell Pelaez [facility] Emergency Start: 08-03-2022 Office outpatient vi sit 25 minutes Jordyn Thakur Work Phone: [facility] Work Phone: Start: 08-03-2022 ambulatory CUPOLA LINER JORDYN Sue acility:[id number] Start: 06-14-2022 Office outpatient vi sit 15 minutes Jordyn Thakur Work Phone: [facility] Work Phone: Start: 06-14-2022 ambulatory CUPOLA LINER JORDYN Sue acility:[id number] Start: 06-07-2022 End: 06-11-2022 ambulatory [facility] Ambulatory Start: 06-06-2022 ambulatory CUPOLA LINER JORDYN Sue acility:[id number] Start: 06-06-2022 Office outpatient vi sit 10 minutes Jordyn Ramirez Work Phone: [facility] Work Phone: Start: 05-23-[address] Kemi Echevarria Fac ility:[id number] Start: 05-10-2022 End: 05-14-2022 ambulatory [facility] Ambulatory Start: 05-02-2022 Office outpatient vi sit 25 minutes Jordyn Ramirez Work Phone: [facility] Work Phone: Start: 05-02-2022 ambulatory CUPOLA LINER JORDYN Sue acility:[id number] Start: 04-25-2022 End: 04-25-2022 ambulatory JOSELIN NOYOLA [facility] Ambulatory Start: 04-25-2022 End: 04-25-2022 Office outpatient new 20 minutes Joselin Noyola [facility] Work Phone: [facility] Comment on above: Closed nondisplaced fracture of distal phalanx of left middle finger, initial encounter (Primary Dx) Start: 04-24-2022 End: 04-24-2022 Emergency department patient visit STANLEY QUILES [facility] Start: 03-15-2022 Chart Update Jordyn Ramirez Work Phone: [facility] Work Phone: Start: 03-03-2022 Office outpatient ne w 45 minutes Jordyn Ramirez Work Phone: [facility] Work Phone: Start: 01-04-2021 End: 01-04-2021 Emergency department patient visit Alie Rodriguez [facility] Emergency 13 Start: 04-01-2019 End: 04-01-2019 Emergency department patient visit DILIA M [facility] Start: 10-27-2018 End: 10-27-2018 Emergency department patient visit Page Joselyn Josy Facility:[facility] Start: 04-01-2018 End: 04-02-2018 Emergency department patient visit Pagelee ann Lopezrdle Facility:[facility] Start: 01-24-2018 End: 01-24-2018 Emergency department patient visit Page L [facility] Facility:[facility] Procedures Date Procedure Procedure Detail Performing [...] Urine test visual color cmprsn meths Bela CRAVEN-C Work Phone: Start: 06-19-2023 Urnls dip stick/tabl et reagent auto microscopy Bela CRAVEN-[facility] Work Phone: Start: 05-18-2023 Bacteria identified in Urine by Culture JORDYN THAKUR Start: 05-18-2023 POCT UA AUTOMATED MA NUALLY RESULTED JORDYN THAKUR Start: 05-18-2023 Urnls dip stick/tabl et rgnt auto w/o microscopy Jordyn Thakur JOB ANALYST-C[employer]OLA LINER Work Phone: Start: 04-14-2023 Lipid 1996 panel - S charley or Plasma Kemi Echevarria MD Work Phone: Start: 03-10-2022 Lipid 1996 panel - S charley or Plasma Jordyn Thakur JOB ANALYST-CUPOLA LINER Work Phone: Start: 01-04-2021 End: 01-04-2021 EKG impression Beverly Young Extraction of wisdom tooth A my Jason Ramirez Work Phone: Comment on above: x 4 extracted 4 year s ago; Plan of Treatment Date Care Activity Detail Author Start: 2050 Zoster Vaccines (1 of 2) Zoste r Vaccines (1 of 2) [facility] Start: 04-14-2028 Lipid panel Lipid Panel [facility] Start: 03-10-2027 Lipid panel Lipid Panel [facility] Start: 04-11-2024 End: 04-11-2024 Patient encounter procedure 04/11/2024 4:20 PM EDT Office Visit [facility] [address] [place] [phone] Jordyn Thakur, JOB ANALYST-CUPOLA LINER [address] [place] [address] [facility] Start: 03-31-2024 DTaP/Tdap/Td Vaccine s (7 - Td or Tdap) DTaP/Tdap/Td Vaccines (7 - Td or Tdap) [facility] Start: 03-31-2024 Tetanus vaccination Tetanus: Every 1 0yrs [facility] Start: 01-20-2024 Influenza vaccination Influenza Vacc ine (#1) [facility] Comment on above: Postponed from 03/23 (Patient Refused) Start: 10-22-2023 End: 10-22-2023 Patient encounter procedure 10/22/2023 3:30 PM EDT Office Visit [facility] Medical Office Building [address] [place] [address] Anika Richardson MD [address] [facility] [address] [place] [phone] [facility] Medical Office [facility] Start: 10-17-2023 End: 10-17-2023 Patient encounter procedure 10/17/2023 1:00 PM EDT Office Visit [facility] Medical [facility] Building [address] [place] [phone] Mari Hensley MD [address] [address] [facility] Medical Office [facility] Start: 10-10-2023 End: 10-10-2023 Telemedicine consultation with patient 10/10/2023 3:40 PM EDT Telemedicine [facility] [address] [place] [phone] Jordyn Thakur, JOB ANALYST-CUPOLA LINER [address] [facility] [place], [place] [phone] [facility] Start: 08-27-2023 End: 08-21-2024 Progesterone [Mass/volume] in Serum or Plasma Progesterone Lab Routine Family planning counseling Expected: 08/27/2023 (Approximate), Expires: 08/21/2024 [facility] Service Area Work Phone: Comment on above: Expected: 08/27/2023 (Approximate), Expires: 08/21/2024 Start: 07-13-2023 End: 07-13-2023 Patient encounter procedure 07/13/2023 9:00 AM EST Office Visit [facility] [address] [place] [address] Jordyn Thakur, JOB ANALYST-CUPOLA LINER [address] [place] [address] [facility] Start: 07-03-2023 End: 07-03-2023 Patient encounter procedure 07/03/2023 2:15 PM EST Office Visit [facility] Physician Kobe [address] [facility] [address] [place] [address] Lola Devine MD MPH [address] [facility] [address] [place], [place] [phone] [facility] Physician Kobe Start: 05-18-2023 End: 05-25-2023 Bacteria identified in Urine by Culture [facility] Work Phone: Comment on above: Expected: 05/18/2023 (Approximate), Expires: 05/25/2023 Start: 04-09-2023 End: 04-09-2024 oxyCODONE Immediate Release 5 mg Oral Tablet Every 4 Hours ; Tablet (OXYIR, ROXICODONE)DOSE = 5 mg Oral Every 4 Hours, PRN Pain - Severe (7-10) Start: 09-Apr-2023 End: 08-Apr-2024 Ordered: 09-Apr-2023 Delgado Nix Intent [facility] Start: 04-09-2023 End: 04-09-2024 [facility] Start: 03-06-2023 FUV, Provider: Jordyn Ramirez, Status: Pen, Time: 2:40 PM FUV, Provider: Jordyn Ramirez, Status: Pen, Time: 2:40 PM [facility] Work Phone: Start: 03-06-2023 FUV, Provider: Jordyn Thakur, Status: Pen, Time: 2:40 PM FUV, Provider: Jordyn Thakur, Status: Pen, Time: 2:40 PM [facility] Work Phone: Start: 03-06-2023 Patient encounter procedure Outpatient [facility] Start: 06-Mar-2023 14:40 Jordyn Thakur Intent [facility] Start: 03-06-2023 End: 03-06-2023 Patient encounter procedure 03/06/2023 2:40 PM EDT Office Visit [facility] [address] [place] [phone] Jordyn Thakur D, JOB ANALYST-CUPOLA LINER [address] [place] [address] [facility] Start: 10-26-2022 Screening for Chlamy ankita trachomatis Chlamydia Screening [facility] Start: 09-14-2022 FUV, Provider: Jordyn Thakur, Status: Pen, Time: 2:20 PM FUV, Provider: Jordyn Thakru, Status: Pen, Time: 2:20 PM [facility] Work Phone: Start: 09-14-2022 Patient encounter procedure [facility] Start: 08-31-2022 Patient encounter procedure [facility] Start: 08-10-2022 NPV, Provider: Jocelyne Bae, Status: Pen, Time: 1:00 PM NPV, Provider: Jocelyne Bae, Status: Pen, Time: 1:00 PM [facility] Work Phone: Start: 05-23-2022 FUV, Provider: Kemi Echevarria, Status: Pen, Time: 2:00 PM FUV, Provider: Kemi Echevarria, Status: Pen, Time: 2:00 PM [facility] Work Phone: Start: 05-10-2022 End: 05-10-2022 Patient encounter procedure 05/10/2022 Office Visit Sports Medicine Joselin Noyola, CUPOLA LINER [address] [place] [address] [facility] Start: 03-31-2022 FUV, Provider: Jordyn Ramirez, Status: Pen, Time: 2:20 PM FUV, Provider: Jordyn Ramirez, Status: Pen, Time: 2:[address] [facility] Work Phone: Start: 03-23-2022 Influenza vaccination [facility] Start: 2021 Screening for malign ant neoplasm of cervix [facility] Start: 12-14-2021 History and physical examination, annual for health maintenance Wellness Visit [facility] Start: 2018 Hepatitis C screening Hepatitis C Sc reening [facility] Start: 12-29-2015 HIV screening HIV Screening [facility] Start: 2012 Depression screening using PHQ-9 (Patient Health Questionnaire 9) score Depression Screening (PHQ-2/9) [facility] Start: 2006 Pneumococcal Vaccine : Pediatrics (0 to 5 Years) and At-Risk Patients (6 to 64 Years) (1 - PCV) Pneumococcal Vaccine: Pediatrics (0 to 5 Years) and At-Risk Patients (6 to 64 Years) (1 - PCV) [facility] Start: 12-29-2003 Well Child Visit (WC V) - Annual Well Child Visit (WCV) - Annual [facility] Start: 06-29-2001 COVID-19 Vaccine (#1) COVID-19 Vacci ne (#1) [facility] Start: 2000 Hearing Screening (#1) Hearing Scree wilberto (#1) [facility] Start: 2000 HIV screening HIV Screening [facility] Start: 2000 Screening for Chlamy ankita trachomatis Chlamydia and Gonorrhea Screening [facility] Start: 2000 Screening for malign ant neoplasm of cervix Pap Smear [facility] Start: 2000 Yearly Adult Physical Yearly Adult P hysical [facility] End: 06-19-2023 Bacteria identified in Urine by Culture [facility] Work Phone: Comment on above: Once (Lab) for 1 Occ urrences starting 06/19/2023 until 06/19/2023 End: 06-19-2023 Extra Urine Brody Tube [facility] Work Phone: Comment on above: Once for 1 Occurrenc es starting 06/19/2023 until 06/19/2023 End: 06-19-2023 Urinalysis complete W Reflex Culture panel - Urine [facility] Service Area Work Phone: Comment on above: Once (Lab) for 1 Occ urrences starting 06/19/2023 until 06/19/2023 Immunizations Immunization Date Immunization Notes Care Provider Radha mejia 04-11-2019 measles, mumps and rubella virus vaccine Jordyn Thakur Work Phone: [facility] Work Phone: 04-11-2019 varicella virus vaccine Jordyn Thakur Work Phone: [facility] Work Phone: 08-08-2018 meningococcal B vacc ine, recombinant, OMV, adjuvanted Jordyn Thakur Work Phone: [facility] Work Phone: 04-17-2018 hepatitis A vaccine, pediatric/adolescent dosage, 2 dose schedule Jordyn Thakur Work Phone: [facility] Work Phone: 04-17-2018 meningococcal B vacc ine, recombinant, OMV, adjuvanted Jordyn Thakur Work Phone: [facility] Work Phone: 04-02-2017 hepatitis A vaccine, pediatric/adolescent dosage, 2 dose schedule Jordyn Thakur Work Phone: [facility] Work Phone: 04-02-2017 Human Papillomavirus 9-valent vaccine Jordyn Thakur Work Phone: [facility] Work Phone: 04-02-2017 meningococcal polysaccharide (groups A, C, Y and W-135) diphtheria toxoid conjugate vaccine (MCV4P) Jordyn Thakur Work Phone: [facility] Work Phone: 01-14-2015 HPV, unspecified formulation Jordyn Thakur Work Phone: [facility] Work Phone: 01-14-2015 varicella virus vaccine Jordyn Thakur Work Phone: [facility] Work Phone: 03-31-2014 meningococcal polysaccharide (groups A, C, Y and W-135) diphtheria toxoid conjugate vaccine (MCV4P) Jordyn Thakur Work Phone: [facility] Work Phone: 03-31-2014 tetanus toxoid, redu karina diphtheria toxoid, and acellular pertussis vaccine, adsorbed Jordyn Thakur Work Phone: [facility] Work Phone: 06-18-2009 novel Influenza-H1N1 -09, live virus for nasal administration Jordyn Thakur Work Phone: [facility] Work Phone: 06-18-2009 influenza virus vacc ine, unspecified formulation Jordyn Thakur JOB ANALYST-CUPOLA LINER Work Phone: [facility] Work Phone: 04-12-2007 diphtheria, tetanus toxoids and acellular pertussis vaccine Jordyn Thakur Work Phone: [facility] Work Phone: 04-12-2007 measles, mumps and rubella virus vaccine Jordyn Thakur Work Phone: [facility] Work Phone: 04-12-2007 poliovirus vaccine, inactivated Jordyn Thakur Work Phone: [facility] Work Phone: 05-18-2003 pneumococcal conjuga te vaccine, 7 valent Jordyn Jason Simon Work Phone: [facility] Work Phone: 08-22-2002 diphtheria, tetanus toxoids and acellular pertussis vaccine, unspecified formulation Jordyn Thakur Work Phone: [facility] Work Phone: 12-23-2001 diphtheria, tetanus toxoids and acellular pertussis vaccine, unspecified formulation Jordyn Jason Simon Work Phone: [facility] Work Phone: 12-23-2001 haemophilus influenz ae type b vaccine, conjugate unspecified formulation Jordyn Jason Simon Work Phone: [facility] Work Phone: 12-23-2001 hepatitis B vaccine, pediatric or pediatric/adolescent dosage Jordyn Jason Thakur Work Phone: [facility] Work Phone: 12-23-2001 measles, mumps and rubella virus vaccine Jordyn Thakur Work Phone: [facility] Work Phone: 12-23-2001 pneumococcal conjuga te vaccine, 7 valent Jordyn Jason Simon Work Phone: [facility] Work Phone: 12-23-2001 poliovirus vaccine, inactivated Jordyn Jason Thakur Work Phone: [facility] Work Phone: 12-23-2001 varicella virus vaccine Jordyn Jason Thakur Work Phone: [facility] Work Phone: 06-12-2001 diphtheria, tetanus toxoids and acellular pertussis vaccine, unspecified formulation Jordyn Gomez Thakur Work Phone: [facility] Work Phone: 06-12-2001 haemophilus influenz ae type b vaccine, conjugate unspecified formulation Jordyn Gonzalezley Work Phone: [facility] Work Phone: 06-12-2001 hepatitis B vaccine, pediatric or pediatric/adolescent dosage Jordyn Thakur Work Phone: [facility] Work Phone: 06-12-2001 poliovirus vaccine, inactivated Jordyn Jason Thakur Work Phone: [facility] Work Phone: 03-28-2001 diphtheria, tetanus toxoids and acellular pertussis vaccine, unspecified formulation Jordyn Jason Thakur Work Phone: [facility] Work Phone: 03-28-2001 haemophilus influenz ae type b vaccine, conjugate unspecified formulation Jordyn Jason GonzalezThakur Work Phone: [facility] Work Phone: 03-28-2001 hepatitis B vaccine, pediatric or pediatric/adolescent dosage Jordyn Jason Thakur Work Phone: [facility] Work Phone: 03-28-2001 pneumococcal conjuga te vaccine, 7 valent Jordyn Jason GonzalezThakur Work Phone: [facility] Work Phone: 03-28-2001 poliovirus vaccine, inactivated Jordyn Jason Thakur Work Phone: [facility] Work Phone: Payers Date Payer Category Payer Private Health Insurance [id number] 2020 Medicaid [facility] MEDICAID COMMUNITY PLAN [id number] 2020-Present [phone] [address] [place] [address] [id number] 2019 Medicaid [id number] 2019 Medicaid [id number] 2018 Unknown 2000 Unknown [id number] 2.16.840.1.868321.3.579.2. 651 2000 Unknown [id number] 2.16.840.1.642058.3.579.2. 903 2000 Unknown [id number] 2.16.840.1.619712.3.579.2. 903 2000 Unknown [id number] 2.16.840.1.196723.3.579.2. 903 2000 Unknown [id number] 2.16.840.1.274464.3.579.2. 903 2000 Unknown [id number] 2.16.840.1.671160.3.579.2. 2000 Unknown [id number] 2.16840.1.978839.3.579.2. 2000 Unknown [id number] 2.16840.1.403377.3.579.2. 2 2000 Unknown [id number] 2.16840.1.494683.3.579.2. 902 2000 Unknown [id number] 2.16840.1.105477.3.579.2. 902 2000 Unknown [id number] 2.16840.1.829429.3.579.2. 356 2000 Unknown [id number] 2.16840.1.372278.3.579.2. 356 2000 Unknown [id number] 2.16840.1.229451.3.579.2. 356 2000 Unknown [id number] 2.16840.1.340618.3.579.2. 356 2000 Unknown [id number] 2.16840.1.669340.3.579.2. 356 2000 Unknown [id number] 2.16840.1.520845.3.579.2. 356 2000 Unknown [id number] 2.16.840.1.048363.3.579.2. 9 2000 Unknown [id number] 2.16.840.1.461936.3.579.2. 1068 2000 Unknown [id number] 2.16.840.1.633225.3.579.2. 1068 2000 Unknown [id number] 2.16.840.1.850826.3.579.2. 1068 2000 Unknown [id number] 2.16.840.1.768197.3.579.2. 1244 2000 Unknown [id number] 2.16.840.1.168392.3.579.2. 1242 2000 Unknown [id number] 2.16.840.1.955420.3.579.2. 1243 2000 Unknown [id number] 2.16.840.1.844585.3.579.2. 1243 2000 Unknown [id number] 2.16.840.1.367057.3.579.2. 1243 2000 Unknown [id number] 2.16.840.1.759981.3.579.2. 1243 2000 Unknown [id number] 2.16.840.1.511486.3.579.2. 1243 2000 Unknown [id number] 2.16.840.1.356954.3.579.2. 1243 2000 Unknown [id number] 2.16.840.1.832767.3.579.2. 1243 2000 Unknown [id number] 2.16.840.1.855945.3.579.2. 1243 2000 Unknown [id number] 2.16.840.1.713899.3.579.2. 727 2000 Unknown [id number] 2.16.840.1.194323.3.579.2. 727 2000 Unknown [id number] 2.16.840.1.689703.3.579.2. 727 1983 Unknown [id number] 2.16.840.1.559025.3.579.2. 717 1983 Unknown [id number] 2.16.840.1.958416.3.579.2. 717 1983 Unknown [id number] 2.16.840.1.865625.3.579.2. 717 Self-pay [id number] Unknown [id number] Social History Date Type Detail Facility [facility] Tobacco smoking consumption unknown [facility] Start: 10-03-2022 End: 09-19-2023 Nicotine dependence due to vaping tobacco product Nicotine dependence due to vaping tobacco product [facility] Work Phone: Start: 2000 Sex [facility]igned At [facility] Start: 04-15-2022 End: 08-21-2023 Exposure to SARS-CoV-2 (event) Not sure [facility] Start: 10-03-2022 [facility] Work Phone: Start: 10-03-2022 End: 08-21-2023 Tobacco use and exposure Smokeless tobacco non-user [facility] Work Phone: Start: 10-20-2022 End: 05-18-2023 Alcohol intake Current drinker of alcohol (finding) [facility] Work Phone: Start: 10-03-2022 End: 09-19-2023 Tobacco use panel [facility] Work Phone: Start: 04-23-2023 Alcohol Comment RARE [facility] Work Phone: Start: 01-19-2021 Tobacco smoking stat us NJIS Smokes tobacco daily [facility] Start: 01-19-2021 End: 08-14-2023 History of tobacco use Cigarette Smoker [facility] Work Phone: History of tobacco use Pipe Smoker Unive [facility] Work Phone: Start: 08-21-2023 End: 10-10-2023 Alcohol intake Ex-drinker (finding) [facility] Work Phone: Start: 08-21-2023 Tobacco Comment I vape. [facility] Work Phone: Start: 08-21-2023 Alcohol Comment I drink once e very few momths [facility] Work Phone: Start: 09-09-2023 End: 10-10-2023 Exposure to SARS-CoV-2 (event) Unable to assess [facility] Work Phone: Tobacco smoking status No Smokin g Status Entered [facility] Functional Status Date Assessment Result Facility Functional observable [facility] Mental Status Date Assessment Result Facility 04-11-2023 Cognitive functions 0239:29 [facility] Clinical Notes 03-03-2021 to 10-10-2023 Jordyn Thakur APRN-CUPOLA LINER - 10/10/2023 3:40 PM Arianna Richardson MD [...] up as before documented in this encounter [facility] Work Phone: 09-22-2023 Evaluation + Plan note Diagnostic Tests PendingAnti-Mullerian Hormone (AMH) 09/22/23FSH and LH 09/22/23Insulin Level Total 09/22/23 [facility] 08-21-2023 History of Present illness Narrative [...] Procedure Laterality Date OTHER SURGICAL HISTORY 03/03/2022 [place] tooth extraction Review of Systems: Constitutional: No [...] Dose Status busPIRone (Buspar) 5 mg tablet [id number] No Take by mouth 3 times a day as needed. Historical Provider, Taking Active citalopram (CeleXA) 40 mg tablet [id number] Take 1 tablet (40 mg) by mouth once daily. MYKE Amaya Active nitrofurantoin (Macrodantin) 100 mg capsule [id number] No take 1 capsule twice a day for 3 to 7 days Historical Provider, Taking Active omeprazole (PriLOSEC) [address] capsule [id number] No Take 1 capsule (20 mg) by [...] 08/21/2024 Order Specific Question: Release result to [facility] Answer: Immediate [1] Problem List Items Addressed [...] for annual exam. documented in this encounter [facility] Work Phone: 06-19-2023 Emergency department Note [...] Procedure Laterality Date OTHER SURGICAL HISTORY 03/03/2022 [place] tooth extraction Family History Problem Relation Name [...] López PA-C 06/19/231810 documented in this encounter [facility] Work Phone: 06-19-2023 Physician Emergency department [...] Procedure Laterality Date OTHER SURGICAL HISTORY 03/03/2022 [place] tooth extraction Family History Problem Relation Name [...] ED Course & MDM Diagnoses as of 11/28/23 1811 Urinary tract infection without hematuria, site unspecified [...] health. Procedure Procedures Bela López PA-C 06/19/231810 [facility] Work Phone: 05-18-2023 History of Present [...] up as before documented in this encounter [facility] Work Phone: 04-23-2023 History of Present [...] mon with PCP. documented in this encounter [facility] Work Phone: 04-11-2023 Note Send Summary: Discharge Summary Providers: Provider RoleProvider Name Bautista Foy Logeswari PrimaryConley, Amy PrimaryMcArdle, Joyce Note Recipients: [facility] [phone] [Preferred] Discharge: Summary: Admission Date: .09-Apr-2023 10:40:00 Discharge Date: 11-Apr-2023 Attending Physician at Discharge: Bautista villanueva Admission Reason: Flank pain Final Discharge Diagnoses: Pyelonephritis, acute kidney injury Procedures: none Vital Signs: T PRBPMAPSpO2 Value36.46737019/222581% Date/Time04/11 8: 8: 8: 8: 16: 8:00 Range(36.6C - 37.6C ) (70 - 81 ) (16 - 18 ) (107 - 122 )/ (70 - 84 ) (82 - 85 ) (98% - 99% ) Highest temp of 37.6 C was recorded at 04/11 0:00 Date: Weight/Scale Type:Height: 09-Apr-2023 15:5454 kg / fqp224.1 cm Physical Exam: General: Not in acute [...] if there are errors there due to agricultural agent. Bautista Villanueva Hospitalist Discharge Information: and Continuing [...] Last Updated: 11-Apr-2023 09:36 by Bautista Villanueva) [facility] 04-11-2023 Hospital Discharge instructions Activity:activity as tolerated. May shower. May drive.Follow Up Appointment 1:Physician/Dept/Service: Primary care provider Jordyn Maurer for Referral: Pyelonephritis, acute kidney injuryCall to Schedule in: [address] Nxejbmhf: She will call and make her own appointment. [facility] 04-09-2023 Note History of Present [...] are negative Objective: Objective Information: T PRBPMAPSpO2 Value36.51718540/8897% Date/Time04/09 10:409/18 14:12918 14:12918 14:12918 14:12 Range(36.5C - 36.5C ) (69 - 81 ) (16 - 16 ) (123 - 133 )/ (88 - 96 ) (97% - 97% ) Pain reported at 04/09 10:48: 3 = Mild T PRBPMAPSpO2 [id number]/588830% Date/Time04/09 16:009/18 16: 16: 16: 16: 16:00 Range(36.5C - [...] continue maintenance flu (more content not included)... [facility] 04-25-2022 History of Present illness Narrative [facility] [address] [facility] [address] [facility] [id number] Chief Complaint Patient presents with Left Hand [...] Strength Wrist extension: 5/5 Wrist flexion: 5/5 Web Development Director: 3/5 Other Erythema: absent Scars: absent Sensation: [...] medications as needed. documented in this encounter [facility] 03-02-2022 History of Present illness Narrative INCONSISTENT SLEEP AT NIGHT SEVERAL TIMES / WEEK . WAKES UP WITH COLD SWEATS., AND DIZZINESS.0N AND OFF. MISSED PERIOD , LAST ONE WAS 2 MONTHS AGO. STOPPED GETTING DEPO SHOT ALMOST 2.5 MONTHS AGO. [facility] Work Phone: 01-01-2022 History of Present illness Narrative ANXIETY , NO PANIC ATTACKS SINCE LAST VISIT.. HASN'T BEEN TAKING THE PRN BUSPAR . CONTROL TX WAS STOPPED SEVERAL MONTHS AGO BUT MENSES ARE NOT BACK MONTHLY..WEIGHT GAIN. [facility] Work Phone: 11-20-2021 History of Present illness Narrative Presents today for C/O SPOTTING FOR SEVERAL DAYS modifying factors consists of STOPPED THE DEPO SHOT WAS NOVEMBER 2021. SHE HAS NOT RESUMED HER PERIODS. NEGATIVE HOME TEST associated symptoms consist of CRAMPING ON/OFF prior treatment consists of medication NONE [facility] Work Phone: 03-03-2021 History of Present illness Narrative Presents today TO ESTABLISH NEW. C/O ANXIETY SEVERAL DAYS PPER WEEK X SEVERAL YEARS THAT HAS RECENTLY INCREASED OVER THE PAST 1 YEAR modifying factors consists of PANIC ATTACKS ON/OFF associated symptoms consist of DENIES DEPRESSION OR SUICIDAL IDEATION prior treatment consists of medication DOES NOT REMEMBER THE NAMEGERD- STABLE. MED REFILL [facility] Work Phone: Evaluation note Diagnosis Closed nondisplaced fracture of distal phalanx of left middle finger, initial encounter- [facility] Vaginal yeast infection- Primary Candidiasis of vulva and vagina documented in this encounter [facility] Work Phone: Evaluation note* Diagnosis H/O urinary tract infection- Primary Generalized anxiety disorder with panic attacks documented in this encounter [facility] Work Phone: Evaluation note* Diagnosis Urinary frequency- Primary Urinary tract infection with hematuria, site unspecified Generalized anxiety disorder with panic attacks Gastroesophageal reflux disease without esophagitis Esophageal reflux documented in this encounter [facility] Work Phone: Evaluation note* Diagnosis Urinary tract infection without hematuria, site unspecified- Primary documented in this encounter [facility] Work Phone: Evaluation note* Diagnosis Family planning counseling- Primary Other general counseling and advice for contraceptive management documented in this encounter [facility] Work Phone: Evaluation note* Diagnosis Generalized anxiety disorder with panic attacks- Primary documented in this encounter [facility] Work Phone: Evaluation note* Diagnosis Nausea- Primary Nausea alone Nasal congestion Other diseases of nasal cavity and sinuses Acute non-recurrent sinusitis, unspecified location documented in this encounter [facility] Work Phone: Evaluation note* Diagnosis Generalized anxiety disorder with panic attacks documented in this encounter [facility] Work Phone: History of Present illness Narrative* Jordyn Thakur APRN-KARLENE - 10/20/2022 3:00 PM EDT Subjective Patient [...] Follow up as [facility] of Present illness [...] 1 MONTH MED CHECK [facility]: History of Present illness Narrative* Jordyn Thakur, JOB ANALYST-CUPOLA LINER - 09/19/2023 1:00 PM EST Subjective Patient [...] Follow up as before [facility] course Narrative No data available [facility] No data available for this section [facility] No data available for this section [facility] (narrative)* Consultation (Routine) - Pending Review Specialty Diagnoses / Procedures Referred By Claritza macias Referred To Contact Obstetrics and Gynecology / Urology Diagnoses Urinary frequency Jordyn Thakur APRN-CNP [address] [place] [address] Referral ID Status Reason Start Date Expiration Date Visits Requested Visits Authorized [id number] Pending Review Specialty Services Required 05/17/2024 1 1 [facility] Work Phone: Summary Purpose Family History [...] anxiety disorder with panic attacks Jordyn Thakur, JOB ANALYST-CUPOLA LINER [address] [place] [address] Referral ID Status Reason Start Date Expiration Date Visits Re quested Visits Authorized [id number] Closed 1 1 Additional Source Comments INFORMATION SOURCE (unrecogn ized section and content) DATE CREATED AUTHOR 10/28/2018 [facility] DATE CREATED AUTHOR AUTHOR'S ORGANIZ ATION 04/08/2019 [facility] DATE CREATED AUTHOR AUTHOR'S ORGANIZ ATION 10/29/2021 [facility] DATE CREATED AUTHOR AUTHOR'S ORGANIZ ATION 06/11/2022 [facility] DATE CREATED AUTHOR AUTHOR'S ORGANIZ ATION 08/04/2022 [facility] DATE CREATED AUTHOR AUTHOR'S ORGANIZ ATION 04/02/2023 [facility] DATE CREATED AUTHOR AUTHOR'S ORGANIZ ATION 04/16/2023 [facility] DATE CREATED AUTHOR AUTHOR'S ORGANIZ ATION 05/09/2023 [facility] DATE CREATED AUTHOR AUTHOR'S ORGANIZ ATION 09/03/2023 [facility] DATE CREATED AUTHOR AUTHOR'S ORGANIZ ATION 11/02/2023 [facility] DATE CREATED AUTHOR AUTHOR'S ORGANIZ ATION 12/16/2023 [facility] DATE CREATED AUTHOR AUTHOR'S ORGANIZ ATION 01/11/2024 [facility] DATE CREATED AUTHOR AUTHOR'S ORGANIZ ATION 01/13/2024 [facility] DATE CREATED AUTHOR AUTHOR'S ORGANIZ ATION 02/08/2024 [facility] DATE CREATED AUTHOR AUTHOR'S ORGANIZ ATION 02/09/2024 [facility] DATE CREATED AUTHOR AUTHOR'S ORGANIZ ATION 02/10/2024 [facility] DATE CREATED AUTHOR AUTHOR'S ORGANIZ ATION 02/11/2024 [facility] DATE CREATED AUTHOR AUTHOR'S ORGANIZ ATION 02/12/2024 [facility] <item><item><item><item><item> Privacy Markings (unrecogniz ed section [...] Care Teams (unrecognized sec tion and content) Technology Auditor Relationship Specialty Start Date End Date Jordyn Ramirez, CUPOLA LINER [address] [place] [address] PCP - General Nurse Practitioner 04/25/22 Technology Auditor Relationship Specialty Start Date End Date Jordyn Thakur, JOB ANALYST-CUPOLA LINER [address] [place] [address] PCP - General 03/03/22 Technology Auditor Relationship Specialty Start Date End Date Jordyn Thakur, JOB ANALYST-CUPOLA LINER [address] [place] [address] PCP - General 03/03/22 Jordyn Thakur, JOB ANALYST-CUPOLA LINER [address] [place] [address] PCP - [facility] Medicaid PCP 10/21/22 Claudia Quick, supervisor bloodHeel Boom Operator 04/12/23 Technology Auditor Relationship Specialty Start Date End Date Jordyn Thakur, JOB ANALYST-CUPOLA LINER [address] [place] [address] PCP - General 03/03/22 Jordyn Thakur, JOB ANALYST-CUPOLA LINER [address] [place] [address] PCP - [facility] Medicaid PCP 10/21/22 Claudia Quick, supervisor bloodHeel Boom Operator 04/12/23 Technology Auditor Relationship Specialty Start Date End Date Jordyn Thakur, JOB ANALYST-CUPOLA LINER [address] [place] [address] PCP - General 03/03/22 Jordyn Thakur, JOB ANALYST-CUPOLA LINER [address] [place] [address] PCP - [facility] Medicaid PCP 10/21/22 Claudia Quick, supervisor bloodHeel Boom Operator 04/12/23 Technology Auditor Relationship Specialty Start Date End Date Jordyn Thakur, JOB ANALYST-CUPOLA LINER [address] [place] [address] PCP - General 03/03/22 Jordyn Thakur, JOB ANALYST-CUPOLA LINER [address] [place] [address] PCP - [facility] Medicaid PCP 10/21/22 Technology Auditor Relationship Specialty Start Date End Date Jordyn Thakur, JOB ANALYST-CUPOLA LINER [address] [place] [address] PCP - General 03/03/22 Jordyn Thakur, JOB ANALYST-CUPOLA LINER [address] [place] [address] PCP - [facility] Medicaid PCP 10/21/22 Technology Auditor Relationship Specialty Start Date End Date Jordyn Thakur, JOB ANALYST-CUPOLA LINER [address] [place] [address] PCP - General 03/03/22 Jordyn Thakur, JOB ANALYST-CUPOLA LINER [address] [place] [address] PCP - [facility] Medicaid PCP 10/21/22 Technology Auditor Relationship Specialty Start Date End Date Jordyn Thakur, JOB ANALYST-CUPOLA LINER [address] [place] [address] PCP - General 03/03/22 Jordyn Thakur, JOB ANALYST-CUPOLA LINER [address] [place] [address] PCP - [facility] Medicaid PCP 10/21/22 Scheduled [...] BE BASED ON THE PRIMARY CLINICAL RECORDS. [employer] [facility]. provides no warranty or guarantee of the accuracy or completeness of information in this document.
[2024-04-05 23:12] VITALS: BP 128/88; PULSE 98; TEMP 36.8; O2SAT 98; BMI 22.1
--- NOTE | 2024-04-05 23:45 | ED_ITS ---
HPI - General Chief complaint: Urogenital-Female Stated complaint: back pain, 18 weeks preg Time Seen by Provider: 04/05/24 23:43 Source: patient Mode of arrival: walk-in Limitations: no limitations History of Present Illness HPI Narrative: 23-year-old female who is 1 para 0 and 18 weeks presents for lower back pain. She was worried she might have a UTI. She has had no injury or unusual activity and has had no abdominal pain or vaginal bleeding. The pain is continuous. Related Data Home Medications ?Medication ?Instructions ?Recorded ?Confirmed No Known Home Medications 04/05/24 04/05/24 Allergies Allergy/AdvReac Type Severity Reaction Status Date / Time paxil Allergy Mild Insomnia Uncoded 04/05/24 23:11 clonidine Allergy hives Uncoded 04/05/24 23:11 Review of Systems ROS Narrative A ten point review of systems is negative except as noted above. [facility] Medical History (Updated 04/05/24 @ 23:56 by Harshil Strange MD) GERD (gastroesophageal reflux disease) ?K21.9 - Gastro-esophageal reflux disease without esophagitis (ICD-10) Anxiety ?F41.9 - Anxiety disorder, unspecified (ICD-10) Social History Little interest or pleasure in doing things: not at all Feeling down, depressed, or hopeless: not at all Exam Narrative Exam Narrative: Nurses note and vital signs reviewed and patient is not hypoxic. General: The patient appears well and in no apparent distress. Patient is resting comfortably on cart. Skin: Warm, dry, no pallor noted. There is no rash noted. Head: Normocephalic, atraumatic Eye: Normal conjunctiva, no drainage Ears, Nose, Mouth, and Throat: oral mucosa is moist. Nares patent. Cardiovascular: Regular Rate and Rhythm Respiratory: Patient is in no distress, no accessory muscle use, lungs are clear to auscultation, no wheezing, rales or rhonchi Back: non-tender, no CVA tenderness bilaterally to percussion. GI: Soft and nontender Musculoskeletal: The patient has no evidence of calf tenderness, no pitting edema, symmetrical pulses noted bilaterally Neurological: Awake and alert Psychiatric: Cooperative Constitutional Vital Signs, click to edit/add: Last Vital Signs Temp 98.2 F 04/05/24 23:12 Pulse 98 H 04/05/24 23:12 Resp 20 04/05/24 23:12 BP 128/88 04/05/24 23:12 Pulse Ox 98 04/05/24 23:12 O2 Del Method Room Air 04/05/24 23:12 Course Vital Signs Vital signs: Vital Signs Temperature 98.2 F 04/05/24 23:12 Pulse Rate 98 H 04/05/24 23:12 Respiratory Rate 20 04/05/24 23:12 Blood Pressure 128/88 04/05/24 23:12 Pulse Oximetry 98 04/05/24 23:12 Oxygen Delivery Method Room Air 04/05/24 23:12 Temperature 98.2 F 04/05/24 23:12 Pulse Rate 98 H 04/05/24 23:12 Respiratory Rate 04/05/24 23:12 Blood Pressure 128/88 04/05/24 23:12 Pulse Oximetry 98 04/05/24 23:12 Oxygen Delivery Method Room Air 04/05/24 23:12 MDM - OB/Uterine Contractions MDM Narrative Medical decision making narrative: Urinalysis is negative. She is recommended Tylenol and she will follow-up with her fur repairer as needed. Treatment diagnosis and follow-up were discussed with the patient. No evidence of UTI. Differential Diagnosis Differential diagnosis: Likely other (Nonspecific back pain, UTI) Lab Data Attestation: I reviewed the patient's lab results. Labs: Lab Results 04/05/24 Range/Units 23:44 Urine Color Yellow (YELLOW) Urine Clarity Clear (CLEAR) Urine pH 6.0 (5.0-9.0) Ur Specific [place] >=1.030 A (1.005-1.025) Urine Protein Negative (NEG/TRACE) mg/dL Urine Glucose (UA) Negative (NEGATIVE) mg/dL Urine Ketones Trace A (NEGATIVE) mg/dL Urine Occult Blood Negative (NEGATIVE) Urine Nitrite Negative (NEGATIVE) Urine Bilirubin Negative (NEGATIVE) Urine Urobilinogen 0.2 (0.2-1.0) EU/dL Ur Leukocyte Esterase Negative (NEGATIVE) Discharge Plan Discharge Chief Complaint: Urogenital-Female Clinical Impression: Low back pain Patient Disposition: Home, Self-Care Time of Disposition Decision: 23:55 Condition: Good Mode of Transportation: Private Vehicle Prescriptions / Home Meds: No Action No Known Home Medications Print Language: Slovak Instructions: Acute Low Back Pain (ED) Referrals: Physician,Non-Staff, [Primary Care Provider] - 1 week
[2024-04-05 23:52] LABS: Bilirubin Urine NEGATIVE (NEGATIVE); Blood Urine NEGATIVE (NEGATIVE); Clarity Urine CLEAR (CLEAR); Color Urine YELLOW (YELLOW); Glucose Urine UA NEGATIVE (NEGATIVE); Ketones Urine TRACE mg/dL (NEGATIVE); Leukocyte Esterase Urine NEGATIVE (NEGATIVE); Nitrite Urine NEGATIVE (NEGATIVE); Protein Urine NEGATIVE (NEG/TRACE); Specific Gravity Urine >=1.030 (1.005-1.025); Urobilinogen Urine 0.2 EU/dL (0.2-1.0)
== END 2024-04-06 00:07 | disposition home or self-care (01) ==
PROVIDERS: Emergency Provider Emergency Medicine
DX: O26.892 Other specified pregnancy related conditions, second trimester (principal); M54.50 Low back pain, unspecified; Z3A.18 18 weeks gestation of pregnancy
CPT/HCPCS: 81003; 99283

== ENCOUNTER 2024-05-13 21:12 | Emergency (ER) | payer OTHER, SELFPAY ==
[2024-05-13 21:17] VITALS: BP 107/84; PULSE 101; TEMP 36.7; O2SAT 99; BMI 22.8
--- OUTSIDE RECORDS SUMMARY | 2024-05-13 21:19 | XMS_ITS | CCD ---
Author Organization [facility] Team Providers Care Program Planner Name Role Phone Page Ferris Primary Care [...] DOCTOR ON Consulting Unavailable Page Ferris Unavailable Ishfran Alie Unavailable Unavailable Jordyn Ramirez Unavailable Unavailable Unavailable Jordyn Ramirez CNP Primary Care Provider [phone] JOSELIN NOYOLA Referring Unavailable JOSELIN NOYOLA Admitting [...] Unavailable Page Ferris Unavailable Thakur, Jordyn Unavailable Tyrell Pelaez Unavailable Unavailable Fried, Jocelyne Unavailable Unavailable Thakur INSPECTOR FINISHING-AIRWORTHINESS SAFETY INSPECTOR, Jordyn D Primary Care Provider Alie Flor Unavailable Unavailabl e RAMIREZ, JORDYN ARIE Primary Care Unavailable STANLEY QUILES Attending Unavailable STANLEY QUILES Attending Unavailable KALE JOANNAYOSSI MCMULLENZAM Primary Care Unav ailable ASHLEY, JORDYN ARIE Primary Care Unavailable MARE LEAVITT Attending Unava ilable Bautista Villanueva Unavailable Unavailable Chris Blue Unavailable Unavailabl e THAKUR, AIRWORTHINESS SAFETY INSPECTOR JORDYN ARIE Primary Care Unavailab le Fried, Ms. Jocelyne Calvillom Attending Unavailabl e THAKUR, AIRWORTHINESS SAFETY INSPECTOR JORDYN ARIE Primary Care Unavailab le Zarrabi, Dr. Mcmullen Attending Unavailable Wale, Dr. Mcmullen Referring Unavailable THAKUR, AIRWORTHINESS SAFETY INSPECTOR JORDYN ARIE Attending Unavailab le THAKUR, AIRWORTHINESS SAFETY INSPECTOR JORDYN ARIE Referring Unavailab le THAKUR, AIRWORTHINESS SAFETY INSPECTOR JORDYN ARIE Primary Care Unavailab le THAKUR, AIRWORTHINESS SAFETY INSPECTOR JORDYN ARIE Attending Unavailab le THAKUR, AIRWORTHINESS SAFETY INSPECTOR JORDYN ARIE Referring Unavailab le THAKUR, AIRWORTHINESS SAFETY INSPECTOR JORDYN ARIE Primary Care Unavailab le Zarrabi, Dr. Mcmullen Attending Unavailable Doryrrcandace, Dr. Mcmullen Referring Unavailable THAKUR, AIRWORTHINESS SAFETY INSPECTOR JORDYN ARIE Primary Care Unavailab le THAKUR, AIRWORTHINESS SAFETY INSPECTOR JORDYN ARIE Primary Care Unavailab le Zarrabi, Dr. Mcmullen Attending Unavailable Wale, Dr. Mcmullen Referring Unavailable Thakur INSPECTOR FINISHING-AIRWORTHINESS SAFETY INSPECTOR, Jordyn D Unavailable [phone] Claudia Quick RN Unavailable Unavailable Basia, Ms. Alie Ward Attending Unavailable Thakur, Ms. Jordyn Arie Primary Care Unavailab le Thakur, Ms. Jordyn Arie Primary Care Unavailab le LeMasters, Dr. Chris Lemos Attending Unav ailable Thakur, Ms. Jordyn Arie Primary Care Unavailab le Latanya, Dr. Tyrell Gray Attending Unavailabl e Thakur, Ms. Jordyn Arie Primary Care Unavailab le Mohan Bautista Attending Unavailable Emre Berkowitzi Admitting Unavailab le Dara Berkowitzwari Referring Unavailab le THAKUR, JORDYN D Primary Care Unavailable NONE, XXXX Primary Care Physician Unavailab le THAKUR, JORDYN D Primary Care Unavailable Anika Bob Admitting Unavailable Anika Bob Attending Unavailable Anika Bob Admitting Unavailable Anika Bob Attending Unavailable Anika Bob Attending Unavailable Paulino, Anika Gomez Admitting Unavailable Paulino, Anika Gomez Attending Unavailable Paulino, Anika Gomez Admitting Unavailable Paulino, Anika Gomez Attending Unavailable Paulino, Anika Gomez Admitting Unavailable Thakur INSPECTOR FINISHING-AIRWORTHINESS SAFETY INSPECTOR, Jordyn Jason Primary Care Provider [phone] Ofe INSPECTOR FINISHING-AIRWORTHINESS SAFETY INSPECTOR, Jordyn Jason Unavailable OFE JORDYN Jason Attending Unavailable THAKUR, JORDYN D Primary Care Unavailable THAKUR, JORDYN D Attending Unavailable THAKUR, JORDYN D Primary Care Unavailable ANIKA RICHARDSON Attending Unavailable THAKUR, JORDYN Jason Primary Care Unavailable THAKUR, [...] cloNIDine (1 source) cloNIDine Drug Allergy Hives/Urticaria [facility] (20 sources) cloNIDine; Translations: [clonidine] Drug Allergy 1 [facility] Repository (10 sources) PARoxetine; Translations: [PAROXETINE HCL] Drug Allergy 3 [facility] Work Phone: Medications Current Medications Medication Drug Class(es) Dates Sig (Normalized) Sig (Original) amoxicillin 500 mg oral capsule (1 source) Penicillin-class Antibacterial Start: 05-06-2024 End: 05-13-2024 take 1 capsule by mouth every twelve hours amoxicillin (Amoxil) 500 mg capsule Indications: Sore throat Take 1 capsule (500 mg) by mouth every 12 hours for 7 days. 14 capsule 05/06/2024 05/13/2024 Active azithromycin 250 mg oral tablet (1 source) [...] Active busPIRone hydrochloride 5 mg oral tablet (18 sources) Start: 03-03-2022 busPIRone (Buspar) 5 mg tablet Take by mouth 3 times a day as needed. 03/03/2022 Active cefdinir 300 mg oral capsule [...] medi cation unless otherwise directed by prescriber. COVID-19 antigen test (COVID-19 At-Home Test) kit (2 sources) Start: 05-06-2024 End: 05-06-2024 COVID-19 antigen test (COVID-19 At-Home Test) kit Indications: Sore throat 1 each 1 time for 1 dose. 2 each 1 05/06/2024 05/06/2024 Active Start: 09-19-2023 End: 09-19-2023 COVID-19 antigen test (COVID -19 At-Home Test) kit Indications: Nasal congestion 1 each 1 time for 1 dose. 2 each 0 09/19/2023 09/19/2023 Active ibuprofen 400 mg oral tablet (1 source) Nonsteroidal Anti-inflammatory Drug Start: 04-24-2022 End: 05-24-2022 take 1 tablet by mouth every six hours as needed for pain ibuprofen (ADVIL,MOTRIN) 400 MG tablet Take 1 (one) tablet (400 mg total) by mouth every 6 (six) hours as needed for pain . 30 tablet 0 04/24/2022 05/24/2022 Active nitrofurantoin, macrocrystals 25 mg / nitrofurantoin, monohydrate 75 mg oral capsule (1 source) Nitrofuran Antibacterial Start: 05-18-2023 End: 05-25-2023 take 1 capsule by mouth twice daily nitrofurantoin, macrocrystal-monoh ydrate, (Macrobid) 100 mg capsule Indications: Urinary tract infection with hematuria, site unspecified Take 1 capsule (100 mg) by mouth 2 times a day for 7 days. 14 capsule 0 05/18/2023 05/25/2023 Active PARoxetine hydrochloride 20 mg oral tablet (13 [...] once daily. 90 tablet 0 05/18/2023 Active clomiPHENE citrate 50 mg oral tablet (2 sources) Estrogen Agonist/Antagonist Start: 10-04-2023 End: 05-06-2024 take 1 tablet by mouth once daily Clomid 50 mg tablet Take 1 tablet (50 mg) by mouth once daily. 10/04/2023 05/06/2024 Discontinued (Therapy completed) escitalopram 20 mg oral tablet (5 sources) Serotonin Reuptake Inhibitor Start: 10-10-2023 End: 05-06-2024 take 1 tablet by mouth once daily escitalopram (Lexapro) 20 mg tablet Indications: Generalized anxiety disorder with panic attacks Take 1 tablet (20 mg) by mouth once daily. 90 tablet 2 10/10/2023 05/06/2024 Discontinued (Therapy completed) Start: 09-12-2023 End: 10-10-2023 take 1 tablet by mouth once daily escitalopram (Lexapro) 10 mg tablet Indications: Generalized anxiety disorder with panic attacks Take 1 tablet (10 mg) by mouth once daily. 90 tablet 0 09/12/2023 10/10/2023 Discontinued (Therapy completed) fluconazole 150 mg oral tablet (2 sources) [...] 0 Refills: 0 Ordered: 03-Mar-2022 DO Active 24 hr metFORMIN hydrochloride 500 mg extended release oral tablet (2 sources) Biguanide Start: 10-02-2023 End: 05-06-2024 take 1 tablet by mouth every twenty-four hours metFORMIN XR 500 mg 24 hr tablet Take 1 tablet (500 mg) by mouth. 10/02/2023 05/06/2024 Discontinued (Therapy completed) nirmatrelvir-ritonavir (Paxlovid) 300 mg (150 mg x [...] days 0 07/04/2023 08/21/2023 Discontinued (Therapy completed) omeprazole 20 mg delayed release oral capsule (20 sources) Proton Pump Inhibitor Start: 12-18-2023 End: 05-06-2024 take 1 capsule by mouth once daily before mealtime omeprazole (PriLOSEC) [address] capsule Indications: Gastroesophageal reflux disease without esophagitis Take 1 capsule (20 mg) by mouth once daily in the morning. Take before meals. 90 capsule 1 12/18/2023 05/06/2024 Discontinued (Therapy completed) Start: 03-03-2022 End: 05-18-2023 take 1 capsule by mouth once daily before mealtime omeprazole (PriLOSEC) [address] capsule Indications: Gastroesophageal reflux disease without esophagitis Take 1 capsule (20 mg) by mouth once daily in the morning. Take before meals. 90 capsule 1 05/18/2023 Active ondansetron 4 mg oral tablet (4 sources) Serotonin-3 Receptor Antagonist Start: 09-19-2023 End: 05-06-2024 take 1 tablet by mouth every eight hours as needed for nausea and nausea ondansetron (Zofran) 4 mg tablet Indications: Nausea Take 1 tablet (4 mg) by mouth every 8 hours if needed for nausea or vomiting. 30 tablet 09/19/2023 05/06/2024 Discontinued (Therapy completed) Start: 11-06-2022 End: 11-07-2022 take 1 tablet by mouth three times daily as needed for nausea and vomiting ondansetron 4 mg oral tablet, disintegrating ; 1 tab(s) orally 3 times a day, As Needed -for nausea and vomiting Quantity: 6 Refills: 0 Ordered: 06-Nov-2022 Alie Flor Start: 06-Nov-2022 End: 07-Nov-2022 Generic Substitution Allowed predniSONE 10 mg oral tablet (2 sources) [...] Chronic Attention-deficit, conduct, and disruptive behavior disorders (9 sources) Attention deficit hyperactivity disorder; Translations: [Attention-deficit hyperactivity disorder, unspecified type] Onset: 02-22-2011 10-20-2022 Chronic Esophageal disorders (19 sources) Gastroesophageal reflux disease; Translations: [Esophageal reflux] Onset: 10-19-2016 10-20-2022 Chronic Other aftercare (2 sources) Encounter for follow-up examination after completed treatment for conditions other than malignant neoplasm; Translations: [Encounter for follow-up examination after completed treatment for conditions other than malignant neoplasm] Onset: 06-07-2022 Episodic Other aftercare (1 source) Other termite treater helper (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) drug therapy; Translations: [Other fci (current) drug therapy] Onset: 04-13-2023 Episodic Other [...] [Abnormal weight gain] Episodic Other upper respiratory infections (10 sources) Acute pharyngitis, unspecified; Translations: [Acute sinusitis] Onset: 10-02-2022 Resolved: 05-06-2024 Episodic Residual codes; unclassified (6 sources) History [...] on above: LOWER BACK PAIN Substance-related disorders (16 sources) Nicotine dependence; Translations: [Tobacco use disorder] [...] abdominal pain in right lower quadrant 04-09-2023 Past or Other Problems Problem Classification Problem Date Documented Date Episodic/Chronic Abdominal pain (19 sources) Right lower quadrant pain; Translations: [Abdominal pain, right lower quadrant] Onset: 04-13-2023 Resolved: 05-06-2024 04-09-2023 Episodic Acquired foot deformities (9 sources) Talipes cavus; Translations: [Congenital pes cavus, unspecified foot] Onset: 03-31-2014 10-20-2022 Episodic Acute and unspecified renal failure (19 sources) Injury of kidney; Translations: [Acute kidney failure, unspecified] Onset: 04-11-2023 Resolved: 05-06-2024 04-09-2023 Episodic Comment on above: ACUTE KIDNEY FAILURE , UNSPECIFIED Conditions associated with dizziness or vertigo (16 sources) Dizziness; Translations: [Dizziness and giddiness] Onset: [...] 04-24-2022 Episodic Genitourinary symptoms and ill-defined conditions (20 sources) History of urinary tract infection; Translations: [Personal history of urinary (tract) infections] Onset: 04-23-2023 Resolved: 05-06-2024 04-23-2023 Episodic Menstrual disorders (13 sources) Missed period; Translations: [Irregular menstrual cycle] Onset: 10-20-2022 Resolved: 05-06-2024 10-20-2022 Chronic Mycoses (10 sources) Candidiasis of vagina; Translations: [Vaginal yeast infection] Onset: 10-20-2022 Resolved: 04-23-2023 10-20-2022 Episodic Nausea and vomiting (8 sources) Nausea; Translations: [Nausea alone] Onset: 11-06-2022 Resolved: 05-06-2024 11-06-2022 Episodic Other injuries and conditions due to external causes (1 source) Underdosing of selective serotonin reuptake inhibitors, initial encounter; Translations: [Underdosing of selective serotonin reuptake inhibitors, init] Onset: 11-06-2022 Episodic Other skin disorders (13 sources) Night sweats; Translations: [Generalized hyperhidrosis] Onset: 10-20-2022 Resolved: 09-12-2023 10-20-2022 Episodic Other upper respiratory disease (4 sources) Nasal congestion; Translations: [Nasal congestion] Onset: 09-19-2023 Resolved: 05-06-2024 09-19-2023 Episodic Other upper respiratory disease (2 sources) Pain in throat; Translations: [Sore Throat] Onset: 09-19-2023 Episodic Residual codes; unclassified (13 sources) Insomnia; Translations: [Insomnia, unspecified] Onset: 10-20-2022 10-20-2022 Episodic Residual codes; unclassified (1 source) Patient's unintentional underdosing of medication regimen for other reason; Translations: [Patient's unintent undrdose of meds regimen for oth reason] Onset: 11-06-2022 Episodic Screening and history of mental health and substance abuse codes (2 sources) Screening - NAD; Translations: [Screening for depression] Onset: 08-24-2022 Episodic Unclassified (9 sources) Onset: 10-20-2022 Resolved: 05-06-2024 10-20-2022 Unclassified (1 source) STOMACH PAIN AND VOMITTING 04-09-2023 Comment on above: STOMACH PAIN AND VOM ITTING Urinary tract infections (20 sources) Acute cystitis without hematuria; Translations: [Pyelonephritis] Onset: 02-14-2023 Resolved: 05-06-2024 Episodic Results Test Name Value Interpretation Reference Range Facility PAP [id number] 02-08-2024 Cytology report Cyto stain Doc (Cvx/Vag) Note Invalid Interpretation Code [facility] Comment on above: Result Comment: TEST S RESULT FLAG UNITS REF RANGE LAB Clinician Provided Cytology Information Source.............Endocervix No. of containers..01 ThinPrep Vial DIAGNOSIS: 01 NEGATIVE FOR INTRAEPITHELIAL LESION OR MALIGNANCY. Specimen adequacy: 01 Satisfactory for evaluation. No endocervical component is identified. Performed by: Antonio Thompson, Electrical Engineering Manager (ASC) . 01 Note: Note 02 The Pap [...] <-Panic Low,>-Panic High,A-Abnormal,AA-Critical Abnormal Performed at: 01 [facility] [address] [place] [address] Michele Sims MD, [facility] [address] [address] Jen Carpio MD, Performed at: [facility] [address] [place], [place] [id number] MD Bethany Bautista Performed By: #### 3 [id number] #### [facility] [address] [place] [id number] C Urineon 02-07-2024 Bacteria identified Cx Nom (U) [...] Locations R1: This test was performed at: [facility], [address] [place] [address], [id number]- , , Normal [facility] Comment on above: Performed By: #### 2 [id number] #### [facility] [address] [place] [address] HIV Screen 4th Generation wR fxon 02-07-2024 HIV 1+2 Ab+HIV1 p24 Ag IA Ql Non-Reactive Invalid Interpretation Code Non Reactive [facility] Comment on above: Result Comment: HIV- 1/HIV-2 antibodies and HIV-1 p24 antigen were NOT detected. There is no laboratory evidence of HIV infection. HIV Negative Performed at: [address] [id number] PhD Tim Quezada Performed By: #### 9 [id number] #### [facility] [address] [place] [address] Hep Bs Agon 02-07-2024 HBV surface Ag IA Ql Negative Invalid Interpretation Code Negative [facility] Comment on above: Result Comment: Perf ormed at: [address] [id number] PhD Tim Quezada Performed By: #### 2 [id number] #### [facility] [address] [place] [address] RPR with Conf Rfxon 02-07-20 24 Reagin Ab RPR Ql (S) Non-Reactive Invalid Interpretation Code Non Reactive [facility] Comment on above: Result Comment: Perf ormed at: [address] [id number] PhD Tim Quezada Performed By: #### 1 [id number] #### [facility] [address] [place] [address] Rubella IgGon 02-07-2024 Rubella virus IgG Qn (S) 2.78 [IU]/mL Invalid Interpretation Code Immune >0.99 [facility] Comment on above: Result Comment: Non- immune <0.90 Equivocal 0.90 - 0.99 Immune >0.99 Performed at: [address] [id number] PhD Tim Quezada Performed By: #### 1 [id number] #### [facility] [address] [place] [address] ABO/Rhon 02-05-2024 ABO/Rh Positive Invalid Interpretation Code [facility] Comment on above: Performed By: #### 2 [id number] #### [facility] [address] [place] [address] ABSCon 02-05-2024 ABSC Gel Interp Negative Normal [facility] Comment on above: Performed By: #### 1 [id number] #### [facility] [address] [place] [address] CBC w/Indiceson 02-05-2024 Erythrocyte distribution width (RBC) [Ratio] 13.4 % Normal 10.9-14.2 [facility] Comment on above: Performed By: #### 2 [id number] #### [facility] [address] [place] [address] Hematocrit (Bld) [Volume fraction] 40.9 % Normal 34.0-46.0 [facility] Comment on above: Performed By: #### 2 [id number] #### [facility] [address] [place] [address] Hemoglobin (Bld) [Mass/Vol] 13.7 g/dL Normal 12.0-16.0 [facility] Comment on above: Performed By: #### 2 [id number] #### [facility] [address] [place] [address] MCH (RBC) [Entitic mass] 30.6 pg Normal 27.0-34.0 [facility] Comment on above: Performed By: #### 2 [id number] #### [facility] [address] [place] [address] MCHC (RBC) [Mass/Vol] 33.5 g/dL Normal 31.4-36.0 [facility] Comment on above: Performed By: #### 2 [id number] #### [facility] [address] [place] [address] MCV (RBC) [Entitic vol] 91.3 fL Normal 80.0-100.0 [facility] Comment on above: Performed By: #### 2 [id number] #### [facility] [address] [place] [address] Platelet 330.0 E9/L Normal 150.0-500.0 [facility] Comment on above: Performed By: #### 2 [id number] #### [facility] [address] [place] [address] Platelet mean volume (Bld) [Entitic vol] 9.4 fL Normal 6.4-10.8 [facility] Comment on above: Performed By: #### 2 [id number] #### [facility] [address] [place] [address] RBC (Bld) [#/Vol] 4.5 E12/L Normal 4.3-5.9 [facility] Comment on above: Performed By: #### 2 [id number] #### [facility] [address] [place] [address] RBC size Nom (Bld) NORMAL Invalid Interpretation Code [facility] Comment on above: Performed By: #### 2 [id number] #### [facility] [address] [place] [address] WBC corrected for nucl RBC Auto (Bld) [#/Vol] 10.9 E9/L Normal 4.0-11.0 [facility] Comment on above: Performed By: #### 2 [id number] #### [facility] [address] [place] [address] PAP [id number] 02-05-2024 Collection Technique BRUSH-SPATULA Normal [facility] Comment on above: Performed By: #### 3 [id number] #### [facility] [address] [place] [address] Gynecological Body Site ENDOCERVIX Normal [facility] Comment on above: Performed By: #### 3 [id number] #### [facility] [address] [place] [address] Physician Orderon 01-13-2024 Physician Order [id number] Normal [facility] BhCG Quanton 01-09-2024 [place] [address] m[IU]/mL High 1-3 F [facility] Comment on above: Result Comment: 'F N ON < 1 - 3' ' 0.2 - 1 WEEK = 5 TO 50' ' 1 - 2 WEEKS = 50 - 500' ' 2 - 3 WEEKS = 100 - 5000' ' 3 - 4 WEEKS = 500 - 18245' ' 4 - 5 WEEKS = 1000 - 16113' ' 5 - 6 WEEKS = 73834 - 317501' ' 6 - 8 WEEKS = 14321 - 879754' ' 8 - 12 WEEKS = 51942 - 380950' Performed By: #### 2 [id number] #### [facility] [address] [place] [address] CHEMISTRYOrdered By: SYSTEM SYSTEM on 01-09-2024 [place] [address] m[IU]/mL High 1 - 3 mIU/mL [facility] Comment on above: Result Comment: 'F N ON < 1 - 3' ' 0.2 - 1 WEEK = 5 TO 50' ' 1 - 2 WEEKS = 50 - 500' ' 2 - 3 WEEKS = 100 - 5000' ' 3 - 4 WEEKS = 500 - 62245' ' 4 - 5 WEEKS = 1000 - 63618' ' 5 - 6 WEEKS = 03825 - 027988' ' 6 - 8 WEEKS = 72087 - 028707' ' 8 - 12 WEEKS = 65557 - 461976' Progesterone Lvl 80.38 ng/mL Invalid Interpretation Code [...] Consent for Treatmenton 12-21 Consent for Treatment [id number] Normal [facility] Physician Orderon 01-09-2024 Physician Order [id number]#1.00TIFF Normal [facility] Progesteroneon 01-09-2024 Progesterone Lvl 80.38 ng/mL Invalid Interpretation Code [facility] Comment on above: Result Comment: 'F N ON FOLLICULAR = 0.10 - 0.60' 'LUTEAL = 3.00 - 17.5' 'MIDLUTEAL = 3.30 - 18.6' 'POST-MENOPAUSE = 0.10 - 0.40' '-FIRST TRIMESTER = 8.30 - 66.5' 'SECOND TRIMESTER = 18.9 - 66.1' 'THIRD TRIMESTER = 35.8 - 312.4' 'MALES = 0.14 - 2.06' Result Verified by Dilution Performed By: #### 2 [id number] #### Nick [facility] [address] [place] [address] Anti-Mullerian Hormone (AMH) on 09-27-2023 Mullerian inhibiting substance [Mass/Vol] 1.81 ng/mL Invalid Interpretation Code [facility] Comment on above: Result Comment: For assays employing antibodies, the possibility exists for interference by heterophile antibodies in the samples.1 1.Hermelinda Durán Interferences in Immunoassays - still a threat. Clin. Chem. 2000; 46: 5093-9566. This test was developed and its performance characteristics determined by [employer]. It has not been cleared or approved by the Food and Drug Administration. Reference Range: Females 20 - 25y: 1.23 - 11.51 Median 4.70 AMH concentrations of >= 1.06 ng/mL is correlated with a better response to ovarian stimulation, produced more retrievable oocytes and higher odds of live according to Evier et al. Fertility and Sterility. 2010: 94:7302-9886. The current AMH test method correlates with [...] exclude an AMH-secreting ovarian tumor. Performed at: [facility] [address] [place] [address] [id number] MD Todd Bedoya Performed By: #### 2 [id number], [id number], [id number] #### [facility] [address] [place] [address] FSH and LHon 09-27-2023 Follitropin Qn 2.8 m[IU]/mL Invalid Interpretation Code [facility] Comment on above: Result Comment: Adul t Female Range Follicular phase 3.5 - 12.5 Ovulation phase 4.7 - 21.5 Luteal phase 1.7 - 7.7 Postmenopausal 25.8 - 134.8 Performed at: [address] [id number] PhD Tim Quezada Performed By: #### 2 [id number], [id number], [id number], [id number] #### [facility] [address] [place] [address] Lutropin Qn 3.8 m[IU]/mL Invalid Interpretation Code [facility] Comment on above: Result Comment: Adul t Female Range Follicular phase 2.4 - 12.6 Ovulation phase 14.0 - 95.6 Luteal phase 1.0 - 11.4 Postmenopausal 7.7 - 58.5 Performed By: #### 2 [id number], [id number], [id number], [id number], [id number] #### [facility] [address] [place] [address] Insulin Lvlon 09-27-2023 Insulin Qn 31.9 u[IU]/mL High 2.6-24.9 [facility] Comment on above: Result Comment: Perf ormed at: [address] [id number] PhD Tim Quezada Performed By: #### 2 [id number], [id number], [id number], [id number], [id number] #### [facility] [address] [place] [address] CHEMISTRYOrdered By: SYSTEM SYSTEM on 09-22-2023 Prolactin 14.07 ng/mL Normal 3.34 - 26.72 ng/mL Remisol Chem TSH Qn 1.94 m[IU]/L Normal 0.34 - 5.60 mcIU/mL Remisol Chem Consent for Treatmenton Consent for Treatment [id number] Normal [facility] Physician Orderon 09-22-2023 Physician Order [id number]#[id number] Normal [facility] Prolactinon 09-22-2023 Prolactin 14.07 ng/mL Normal 3.34-26.72 [facility] Comment on above: Performed By: #### 2 [id number], [id number], [id number], [id number], [id number] #### [facility] [address] [place] [address] TSHon 09-22-2023 TSH Qn 1.94 m[IU]/L Normal 0.34-5.60 [facility] Comment on above: Performed By: #### 2 [id number], [id number], [id number], [id number], [id number] #### [facility] [address] [place] [address] Progesteroneon 08-27-2023 Progesterone [Mass/Vol] 5.4 ng/mL Normal [facility] Comment on above: Result Comment: Ref Values Male <0.3- 1.2 Follicular Phase <0.3- 1.4 Luteal Phase 3.3-25.6 Mid-Luteal Phase 4.4-28.0 Postmenopausal <0.3- 0.7 Females: 1st Trimester 11.2- 90.0 2nd Trimester 25.6- 89.4 3RD Trimester 48.4-422.5 Patients receiving DHEA-S supplements may show false elevation of progesterone for results near 1.0 ng/mL. Contact laboratory at [phone] if alternative testing is needed. Performed By: #### 2 839-9 #### CORBIN Alves ([id number]) [facility] ([facility]) [address] [place] [address] Bacteria identifiedon 2022 Bacteria identified Cx Nom (U) Test: Urine Culture Specimen Source: Clean Catch/Voided Specimen Type: Urine Specimen Date: 07/13/2023 4:11 PM Result Date: 07/16/2023 11:09 AM Result Status: Final result Abnormal: No Resulting Lab: [facility] [address] [place] [address] CULTURE No significant growth Normal [facility] Comment on above: Performed By: #### 6 30-4 #### CORBIN Alves ([id number]) [facility] ([facility]) [address] [place], [place] [id number] Bacteria identifiedon 2022 Bacteria identified Cx Nom (U) Test: Urine Culture Specimen Source: Clean Catch/Voided Specimen Type: Urine Specimen Date: 06/19/2023 5:42 PM Result Date: 06/21/2023 8:49 AM Result Status: Final result Abnormal: No Resulting Lab: [facility] [address] [place] [address] CULTURE Normal genitourinary ivy Normal [facility] Comment on above: Performed By: #### 6 30-4 #### CORBIN Alves ([id number]) [facility] ([facility]) [address] [place], [place] [address] HCG ( test) IA.rapi d Ql (U)on 06-19-2023 HCG ( test) Ql (U) Negative Normal NEGATIVE [facility] Comment on above: Performed By: #### 8 0384-1 #### KELBY ROSS ([id number]) [facility] ([facility]) [address] [place] [address] HCG ( test) IA.rapi d Ql (U)Ordered By: Rob Burnham on 06-19-2023 HCG ( test) Ql (U) Negative NEGATIVE [facility] Interpretation and review of laboratory results Normal [facility] No Panel Informationon 06-19 Interpretation and review of laboratory results Abnormal [facility] Urinalysis complete W Reflex Culture panel (U)on 06-19-2023 Appearance (U) Hazy Normal Clear [facility] Comment on above: Performed By: #### 5 8077-9 #### KELBY ROSS ([id number]) [facility] ([facility]) [address] [place] [address] Bilirubin (U) [Mass/Vol] Negative Normal NEGATIVE [facility] Comment on above: Performed By: #### 5 8077-9 #### KELBY ROSS ([id number]) [facility] ([facility]) [address] [place], [place] [address] Color (U) Yellow Normal Straw, Yellow [facility] Comment on above: Performed By: #### 5 8077-9 #### KELBY ROSS ([id number]) [facility] ([facility]) [address] [place] [address] Glucose Auto test strip (U) [Mass/Vol] Negative Normal NEGATIVE [facility] Comment on above: Performed By: #### 5 8077-9 #### KELBY ROSS ([id number]) [facility] ([facility]) [address] [place], [place] [address] Ketones (U) [Mass/Vol] 5 (TRACE) Abnormal NEGATIVE [facility] Comment on above: Performed By: #### 5 8077-9 #### KELBY ROSS ([id number]) [facility] ([facility]) [address] [place] [address] Leukocyte esterase Auto test strip Ql (U) TRACE Abnormal NEGATIVE [facility] Comment on above: Performed By: #### 5 8077-9 #### KELBY ROSS ([id number]) [facility] ([facility]) [address] [place] [address] Nitrite Auto test strip Ql (U) Negative Normal NEGATIVE [facility] Comment on above: Performed By: #### 5 8077-9 #### KELBY ROSS ([id number]) [facility] ([facility]) [address] [place] [address] pH (U) 5.0 [pH] Normal 5.0, 5.5, 6.0, 6.5, 7.0, 7.5, 8.0 [facility] Comment on above: Performed By: #### 5 8077-9 #### KELBY ROSS ([id number]) [facility] ([facility]) [address] [place] [address] Protein (U) [Mass/Vol] 100 (2+) Normal NEGATIVE [facility] Comment on above: Performed By: #### 5 8077-9 #### KELBY ROSS ([id number]) [facility] ([facility]) [address] [place], [place] [address] RBC (U) [#/Vol] Negative Normal NEGATIVE [facility] Comment on above: Performed By: #### 5 8077-9 #### KELBY ROSS ([id number]) [facility] ([facility]) [address] [place] [address] Specific gravity (U) [Rel density] 1.031 Normal 1.005-1.035 [facility] Comment on above: Performed By: #### 5 8077-9 #### KELBY ROSS ([id number]) [facility] ([facility]) [address] [place] [address] Urobilinogen (U) [Mass/Vol] 2.0 mg/dL Normal <2.0 [facility] Comment on above: Result Comment: Due to [...] By: #### 5 8077-9 #### KELBY ROSS ([id number]) [facility] ([facility]) [address] [place] [address] Appearance (U) Hazy Abnormal Clear [facility] Bilirubin (U) [Mass/Vol] Negative NEGATIVE [facility] Color (U) Yellow Straw, Yellow [facility] Glucose Auto test strip (U) [Mass/Vol] Negative NEGATIVE mg/dL [facility] Ketones (U) [Mass/Vol] 5 (TRACE) Abnormal NEGATIVE mg/dL [facility] Leukocyte esterase Auto test strip Ql (U) TRACE Abnormal NEGATIVE [facility] Nitrite Auto test strip Ql (U) Negative NEGATIVE [facility] pH (U) 5.0 [pH] 5.0, 5.5, 6.0, 6.5, 7.0, 7.5, 8.0 [facility] Protein (U) [Mass/Vol] 100 (2+) Abnormal NEGATIVE mg/dL [facility] RBC (U) [#/Vol] Negative NEGATIVE [facility] Specific gravity (U) [Rel density] 1.031 1.005 - 1.035 [facility] Urobilinogen (U) [Mass/Vol] 2.0 mg/dL Abnormal NINF - 2.0 mg/dL [facility] Comment on above: Due to a manufacturi [...] 10-25 (FEW) Normal Reference range not established. [facility] Comment on above: Performed By: #### 5 3315-8 #### KELBY ROSS ([id number]) [facility] ([facility]) [address] [place] [address] Mucus Auto (Urine sed) [#/Area] 2+ /LPF Normal Reference range not established. [facility] Comment on above: Performed By: #### 5 3315-8 #### KELBY ROSS ([id number]) [facility] ([facility]) [address] [place] [address] RBC Auto (Urine sed) [#/Area] 3-5 Normal NONE, 1-2, 3-5 [facility] Comment on above: Performed By: #### 5 3315-8 #### KELBY ROSS ([id number]) [facility] ([facility]) [address] [place] [address] WBC Auto (Urine sed) [#/Area] 11-20 Abnormal 1-5, NONE [facility] Comment on above: Performed By: #### 5 3315-8 #### KELBY ROSS ([id number]) [facility] ([facility]) [facility] [place] [address] Epithelial cells.squamous Auto (Urine sed) [#/Area] 10-25 (FEW) Reference range not established. /HPF [facility] Mucus Auto (Urine sed) [#/Area] 2+ Reference range not established. /LPF [facility] RBC Auto (Urine sed) [#/Area] 3-5 NONE, 1-2, 3-5 /HPF [facility] WBC Auto (Urine sed) [#/Area] 11-20 Abnormal 1-5, NONE /HPF [facility] Bacteria identifiedon 2022 Bacteria identified Cx Nom (U) Test: Urine Culture Specimen Source: Clean Catch/Voided Specimen Type: Urine Specimen Date: 05/18/2023 10:46 AM Result Date: 05/20/2023 8:13 AM Result Status: Final result Abnormal: No Resulting Lab: [facility] [address] [place] [address] CULTURE No significant growth Normal [facility] Comment on above: Performed By: #### 6 30-4 #### CORBIN Alves ([id number]) [facility] ([facility]) [address] [place] [address] POCT UA Automated manually r esultedon 05-18-2023 Appearance (U) Hazy Abnormal Clear [facility] Work Phone: Glucose Test strip (U) [Mass/Vol] Negative NEGATIVE mg/dl [facility] Work Phone: Hemoglobin Ql (U) MODERATE (2+) Abnormal NEGATIVE [facility] Work Phone: Interpretation and review of laboratory results Abnormal [facility] Work Phone: Leukocyte esterase Test strip Ql (U) Negative NEGATIVE [facility] Work Phone: [phone] Nitrite Ql (U) Negative NEGATIVE [facility] Work Phone: [phone] pH (U) 7.0 [pH] No Reference Range Established [facility] Work Phone: )[phone] POC Bilirubin, Urine Negative NEGATIVE [facility] Work Phone: )[phone] POC Color, Urine Yellow Straw, Yellow, Light-Yellow [facility] Work Phone: )20 POC Ketones, Urine 15 (1+) Abnormal NEGATIVE mg/dl [facility] Work Phone: [phone] POC Protein, Urine 30 (1+) NEGATIVE, 30 (1+) mg/dl [facility] Work Phone: )[phone] POC Specific [place], Urine 1.025 1.005 - 1.035 [facility] Work Phone: POC Urobilinogen, Urine 0.2 0.2, 1.0 EU/DL [facility] Work Phone: [facility] Work Phone: CBC AND DIFFERENTIALon 04-14 % AUTOMATED IMMATURE GRAN 0.2 % Normal 0.0 - 0.9 [facility] Comment on above: Result Comment: Tammie ture Granulocyte Count (IG) includes promyelocytes, myelocytes and metamyelocytes but does not include bands. Percent differential counts (%) should be interpreted in the context of the absolute cell counts (cells/L). Performed By: #### C BCDF #### [address] [address] Basophils (Bld) [#/Vol] 0.02 10*3/uL Normal 0.00 - 0.10 [facility] Comment on above: Performed By: #### C BCDF #### [address] [address] Basophils/100 WBC (Bld) 0.5 % Normal 0.0 - 2.0 [facility] Comment on above: Performed By: #### C BCDF #### [address] [address] Eosinophils (Bld) [#/Vol] 0.09 10*3/uL Normal 0.00 - 0.70 [facility] Comment on above: Performed By: #### C BCDF #### [address] [address] Eosinophils/100 WBC (Bld) 2.2 % Normal 0.0 - 6.0 [facility] Comment on above: Performed By: #### C BCDF #### [address] [address] Erythrocyte distribution width (RBC) [Ratio] 11.6 % Normal 11.5 - 14.5 [facility] Comment on above: Performed By: #### C BCDF #### [address] [address] Hematocrit (Bld) [Volume fraction] 43.6 % Normal 36.0 - 46.0 [facility] Comment on above: Performed By: #### C BCDF #### [address] [address] Hemoglobin (Bld) [Mass/Vol] 14.3 g/dL Normal 12.0 - 16.0 [facility] Comment on above: Performed By: #### C BCDF #### [address] [address] Lymphocytes (Bld) [#/Vol] 1.48 10*3/uL Normal 1.20 - 4.80 [facility] Comment on above: Performed By: #### C BCDF #### [address] [address] Lymphocytes/100 WBC (Bld) 36.5 % Normal 13.0 - 44.0 [facility] Comment on above: Performed By: #### C BCDF #### [address] [address] MCHC (RBC) [Mass/Vol] 32.8 g/dL Normal 32.0 - 36.0 [facility] Comment on above: Performed By: #### C BCDF #### [address] [address] MCV (RBC) [Entitic vol] 90 fL Normal 80 - 100 [facility] Comment on above: Performed By: #### C BCDF #### [address] [address] Monocytes (Bld) [#/Vol] 0.30 10*3/uL Normal 0.10 - 1.00 [facility] Comment on above: Performed By: #### C BCDF #### [address] [address] Monocytes/100 WBC (Bld) 7.4 % Normal 2.0 - 10.0 [facility] Comment on above: Performed By: #### C BCDF #### [address] [address] Neutrophils (Bld) [#/Vol] 2.16 10*3/uL Normal 1.20 - 7.70 [facility] Comment on above: Result Comment: Perc ent differential counts (%) should be interpreted in the context of the absolute cell counts (cells/L). Performed By: #### C BCDF #### [address] [address] Neutrophils/100 WBC (Bld) 53.2 % Normal 40.0 - 80.0 [facility] Comment on above: Performed By: #### C BCDF #### [address] [address] Platelets (Bld) [#/Vol] 267 10*3/uL Normal 150 - 450 [facility] Comment on above: Performed By: #### C BCDF #### [address] [address] RBC 4.84 x10E12/L Normal 4.00 - 5.20 [facility] Comment on above: Performed By: #### C BCDF #### [address] [address] WBC (Bld) [#/Vol] 4.1 10*3/uL Low 4.4 - 11.3 [facility] Comment on above: Performed By: #### C BCDF #### [address] [address] COMPREHENSIVE PANELon 2022 Albumin [Mass/Vol] 4.4 g/dL Normal 3.4 - 5.0 [facility] Comment on above: Performed By: #### C MP #### [address] [address] ALP [Catalytic activity/Vol] 42 U/L Normal 33 - 110 [facility] Comment on above: Performed By: #### C MP #### [address] [address] ALT [Catalytic activity/Vol] 20 U/L Normal 7 - 45 [facility] Comment on above: Result Comment: Glory ents treated with Sulfasalazine may generate falsely decreased results for ALT. Performed By: #### C MP #### [address] [address] Anion gap [Moles/Vol] 13 mmol/L Normal 10 - 20 [facility] Comment on above: Performed By: #### C MP #### [address] [address] AST [Catalytic activity/Vol] 25 U/L Normal 9 - 39 [facility] Comment on above: Performed By: #### C MP #### [address] [address] Bilirubin [Mass/Vol] 0.6 mg/dL Normal 0.0 - 1.2 [facility] Comment on above: Performed By: #### C MP #### [address] [address] Calcium [Mass/Vol] 9.5 mg/dL Normal 8.6 - 10.3 [facility] Comment on above: Performed By: #### C MP #### [address] [address] Chloride [Moles/Vol] 106 mmol/L Normal 98 - 107 [facility] Comment on above: Performed By: #### C MP #### [address] [address] Creatinine [Mass/Vol] 0.82 mg/dL Normal 0.50 - 1.05 [facility] Comment on above: Performed By: #### C MP #### [address] [address] eGFR FEMALE >90 Normal >90 [facility] Comment on above: Result Comment: CALC ULATIONS OF ESTIMATED GFR ARE PERFORMED USING THE 2020 CKD-EPI STUDY REFIT EQUATION WITHOUT THE RACE VARIABLE FOR THE IDMS-TRACEABLE CREATININE METHODS. https://jasn.asnjournals.org/content/early//ASN.78404556 88 Performed By: #### C MP #### [address] [address] Glucose [Mass/Vol] 80 mg/dL Normal 74 - 99 [facility] Comment on above: Performed By: #### C MP #### [address] [address] HCO3 (Bld) [Moles/Vol] 25 mmol/L Normal 21 - 32 [facility] Comment on above: Performed By: #### C MP #### [address] [address] Potassium [Moles/Vol] 3.8 mmol/L Normal 3.5 - 5.3 [facility] Comment on above: Performed By: #### C MP #### [address] [address] Protein [Mass/Vol] 7.0 g/dL Normal 6.4 - 8.2 [facility] Comment on above: Performed By: #### C MP #### [address] [address] Sodium [Moles/Vol] 140 mmol/L Normal 136 - 145 [facility] Comment on above: Performed By: #### C MP #### [address] [address] Urea nitrogen [Mass/Vol] 5 mg/dL Low 6 - 23 [facility] Comment on above: Performed By: #### C MP #### [address] [address] HEMOGLOBIN A1Con 04-14-2023 Glucose [Mass/Vol] 88 mg/dL Normal [facility] Comment on above: Performed By: #### H BA1E #### [address] [address] HbA1c (Bld) [Mass fraction] 4.7 % Normal [facility] Comment on above: Result Comment: Diag nosis of Diabetes-Adults Non-Diabetic: < or = 5.6% Increased risk for developing diabetes: 5.7-6.4% Diagnostic of diabetes: > or = 6.5% . Monitoring of Diabetes Age (y) Therapeutic Goal (%) Adults: >18 <7.0 Pediatrics: 13-18 <7.5 7-12 <8.0 0- 6 7.5-8.5 [employer]. Diabetes Care 33(S1), Jul 2009. Performed By: #### H BA1E #### [address] [address] LIPID PANEL (CORONARY RISK 2 )on 04-14-2023 Cholesterol [Mass/Vol] 159 mg/dL Normal 0 - 199 [facility] Comment on above: Result Comment: . AGE [...] dosing. Performed By: #### L IPID #### [address] [address] Cholesterol in HDL [Mass/Vol] 56.0 mg/dL Normal [facility] Comment on above: Result Comment: . AGE VERY LOW LOW NORMAL HIGH 0-19 Y < 35 < 40 40-45 ---- 20-24 Y ---- < 40 >45 ---- >24 Y ---- < 40 40-60 >60 . Performed By: #### L IPID #### [address] [address] Cholesterol in LDL [Mass/Vol] 87 mg/dL Normal 0 - 119 [facility] Comment on above: Result Comment: . NEAR BORD AGE DESIRABLE OPTIMAL HIGH HIGH VERY HIGH 0-19 Y 0 - 109 --- 110-129 >/= 130 ---- 20-24 Y 0 - 119 --- 120-159 >/= 160 ---- >24 Y 0 - 99 100-129 130-159 160-189 >/=190 . Performed By: #### L IPID #### [address] [address] Cholesterol in VLDL [Mass/Vol] 16 mg/dL Normal 0 - 40 [facility] Comment on above: Performed By: #### L IPID #### [address] [address] Cholesterol.total/C holesterol in HDL [Mass ratio] 2.8 {ratio} Normal [facility] Comment on above: Result Comment: REF VALUES DESIRABLE < 3.4 HIGH RISK > 5.0 Performed By: #### L IPID #### [address] [address] NON-HDL CHOLESTEROL 103 mg/dL Normal 0 - 149 [facility] Comment on above: Result Comment: AGE DESIRABLE BORDERLINE HIGH HIGH VERY HIGH 0-19 Y 0 - 119 120 - 144 >/= 145 >/= 160 20-24 Y 0 - 149 150 - 189 >/= 190 ---- >24 Y 30 MG/DL ABOVE LDL CHOLESTEROL GOAL . Performed By: #### L IPID #### [address] [address] Triglyceride [Mass/Vol] 79 mg/dL Normal 0 - 149 [facility] Comment on above: Result Comment: . AGE [...] dosing. Performed By: #### L IPID #### [address] [address] TSH WITH REFLEX TO FREE T4 I F ABNORMALon 04-14-2023 TSH Qn 2.73 m[IU]/L Normal 0.44 - 3.98 [facility] Comment on above: Result Comment: TSH testing is performed using different testing methodology at [facility] than at other [facility]. Direct result comparisons should only be made within the same method. Performed By: #### T HYDS #### [address] [address] CBC AND DIFFERENTIALon 04-13 % AUTOMATED IMMATURE GRAN 0.2 % Normal 0.0 - 0.9 [facility] Comment on above: Result Comment: Tammie ture Granulocyte Count (IG) includes promyelocytes, myelocytes and metamyelocytes but does not include bands. Percent differential counts (%) should be interpreted in the context of the absolute cell counts (cells/L). Performed By: #### C BCDF ####[address] [address] Basophils (Bld) [#/Vol] 0.01 10*3/uL Normal 0.00 - 0.10 [facility] Comment on above: Performed By: #### C BCDF ####[address] [address] Basophils/100 WBC (Bld) 0.2 % Normal 0.0 - 2.0 [facility] Comment on above: Performed By: #### C BCDF ####[address] [address] Eosinophils (Bld) [#/Vol] 0.06 10*3/uL Normal 0.00 - 0.70 [facility] Comment on above: Performed By: #### C BCDF ####[address] [address] Eosinophils/100 WBC (Bld) 1.2 % Normal 0.0 - 6.0 [facility] Comment on above: Performed By: #### C BCDF ####[address] [address] Erythrocyte distribution width (RBC) [Ratio] 11.4 % Low 11.5 - 14.5 [facility] Comment on above: Performed By: #### C BCDF ####[address] [address] Hematocrit (Bld) [Volume fraction] 39.3 % Normal 36.0 - 46.0 [facility] Comment on above: Performed By: #### C BCDF ####[address] [address] Hemoglobin (Bld) [Mass/Vol] 13.4 g/dL Normal 12.0 - 16.0 [facility] Comment on above: Performed By: #### C BCDF ####[address] [address] Lymphocytes (Bld) [#/Vol] 1.39 10*3/uL Normal 1.20 - 4.80 [facility] Comment on above: Performed By: #### C BCDF ####[address] [address] Lymphocytes/100 WBC (Bld) 27.9 % Normal 13.0 - 44.0 [facility] Comment on above: Performed By: #### C BCDF ####[address] [address] MCHC (RBC) [Mass/Vol] 34.1 g/dL Normal 32.0 - 36.0 [facility] Comment on above: Performed By: #### C BCDF ####[address] [address] MCV (RBC) [Entitic vol] 88 fL Normal 80 - 100 [facility] Comment on above: Performed By: #### C BCDF ####[address] [address] Monocytes (Bld) [#/Vol] 0.49 10*3/uL Normal 0.10 - 1.00 [facility] Comment on above: Performed By: #### C BCDF ####[address] [address] Monocytes/100 WBC (Bld) 9.8 % Normal 2.0 - 10.0 [facility] Comment on above: Performed By: #### C BCDF ####[address] [address] Neutrophils (Bld) [#/Vol] 3.03 10*3/uL Normal 1.20 - 7.70 [facility] Comment on above: Result Comment: Perc ent differential counts (%) should be interpreted in the context of the absolute cell counts (cells/L). Performed By: #### C BCDF ####[address] [address] Neutrophils/100 WBC (Bld) 60.7 % Normal 40.0 - 80.0 [facility] Comment on above: Performed By: #### C BCDF ####[address] [address] Platelets (Bld) [#/Vol] 275 10*3/uL Normal 150 - 450 [facility] Comment on above: Performed By: #### C BCDF ####[address] [address] RBC 4.45 x10E12/L Normal 4.00 - 5.20 [facility] Comment on above: Performed By: #### C BCDF ####[address] [address] WBC (Bld) [#/Vol] 5.0 10*3/uL Normal 4.4 - 11.3 [facility] Comment on above: Performed By: #### C BCDF ####[address] [address] COMPREHENSIVE PANELon 2022 Albumin [Mass/Vol] 4.2 g/dL Normal 3.4 - 5.0 [facility] Comment on above: Performed By: #### C MP ####[address] [address] ALP [Catalytic activity/Vol] 40 U/L Normal 33 - 110 [facility] Comment on above: Performed By: #### C MP ####[address] [address] ALT [Catalytic activity/Vol] 12 U/L Normal 7 - 45 [facility] Comment on above: Result Comment: Glory ents treated with Sulfasalazine may generate falsely decreased results for ALT. Performed By: #### C MP ####[place] [address] Anion gap [Moles/Vol] 11 mmol/L Normal 10 - 20 [facility] Comment on above: Performed By: #### C MP ####[place] [address] AST [Catalytic activity/Vol] 17 U/L Normal 9 - 39 [facility] Comment on above: Performed By: #### C MP ####[address] [address] Bilirubin [Mass/Vol] 0.5 mg/dL Normal 0.0 - 1.2 [facility] Comment on above: Performed By: #### C MP ####[address] [address] Calcium [Mass/Vol] 8.9 mg/dL Normal 8.6 - 10.3 [facility] Comment on above: Performed By: #### C MP ####[address] [address] Chloride [Moles/Vol] 106 mmol/L Normal 98 - 107 [facility] Comment on above: Performed By: #### C MP ####[address] [address] Creatinine [Mass/Vol] 0.85 mg/dL Normal 0.50 - 1.05 [facility] Comment on above: Performed By: #### C MP ####[place] [id number] eGFR FEMALE >90 Normal >90 [facility] Comment on above: Result Comment: CALC ULATIONS OF ESTIMATED GFR ARE PERFORMED USING THE 2020 CKD-EPI STUDY REFIT EQUATION WITHOUT THE RACE VARIABLE FOR THE IDMS-TRACEABLE CREATININE METHODS. https://jasn.asnjournals.org/content/early/ASN.60659214 88 Performed By: #### C MP ####[address] [address] Glucose [Mass/Vol] 87 mg/dL Normal 74 - 99 [facility] Comment on above: Performed By: #### C MP ####[address] [address] HCO3 (Bld) [Moles/Vol] 26 mmol/L Normal 21 - 32 [facility] Comment on above: Performed By: #### C MP ####[address] [address] Potassium [Moles/Vol] 3.4 mmol/L Low 3.5 - 5.3 [facility] Comment on above: Performed By: #### C MP ####[address] [address] Protein [Mass/Vol] 6.8 g/dL Normal 6.4 - 8.2 [facility] Comment on above: Performed By: #### C MP ####[address] [address] Sodium [Moles/Vol] 140 mmol/L Normal 136 - 145 [facility] Comment on above: Performed By: #### C MP ####[address] [address] Urea nitrogen [Mass/Vol] 6 mg/dL Normal 6 - 23 [facility] Comment on above: Performed By: #### C MP ####[address] [address] HCG,URINEon 04-13-2023 Beta HCG ( test) Ql (U) Negative Normal Negative [facility] Comment on above: Performed By: #### H CGU ####[address] [place] [address] Provider Note - ED v3on 03-24 Provider [...] a day SIGNIFICANT EVENTS: Past Medical History Description:[place] teeth extraction CRITICAL CARE RESULTS: Recent Lab [...] Reference Range: STRAW,YELLOW Appearance, Urine CLEAR Specific [place], Urine 1.010 pH, Urine 7.0 Protein, Urine NEGATIVE Glucose, Urine NEGATIVE Blood, Urine NEGATIVE Ketones, Urine NEGATIVE Bilirubin, Urine NEGATIVE Urobilinogen, Urine <2.0 Nitrite, Urine Negative Leukocyte Esterase, Urine NEGATIVE VITAL SIGNS: T PRBP SpO2O2(LPM) %FiO2 Method 13-Apr-2023 13:54:[id number] 94 13-Apr-2023 13:13:[id number]/74 99 room air, no respiratory support 13-Apr-2023 12:55:[id number]/74 99 room air, no respiratory support [facility] MDM/ED COURSE: Medical Decision Making: Patient appears well and nontoxic. Vital signs within normal limits. Lab work otherwise unremarkable. Urine without acute infection. Patient given 1 L normal saline. Advised on [id number] Motrin and Tylenol. Asked to follow-up with primary care. Stable at time of discharge. Differential Diagnoses Considered: Musculoskeletal pain, UTI, kidney stone Escalation of Care: (more content not included)... Normal [facility] Triage - EDon 04-13-2023 Triage - [...] obeys commands Best Verbal Response: (V5) oriented [place] Score: 15 Cough lasting greater than 3 [...] 13-Apr-2023 13:15 by Imelda Ramirez (RN) Normal [facility] URINALYSISon 04-13-2023 Appearance (U) CLEAR Normal CLEAR [facility] Comment on above: Performed By: #### U A ####[place] [address] Bilirubin Ql (U) Negative Normal NEGATIVE [facility] Comment on above: Performed By: #### U A ####[place] [address] Color (U) Yellow Normal STRAW,YELLOW [facility] Comment on above: Performed By: #### U A ####[place] [address] Glucose Ql (U) Negative Normal NEGATIVE [facility] Comment on above: Performed By: #### U A ####[place] [address] Hemoglobin Ql (U) Negative Normal NEGATIVE [facility] Comment on above: Performed By: #### U A ####[place] [address] Ketones Ql (U) Negative Normal NEGATIVE [facility] Comment on above: Performed By: #### U A ####[place] [address] Leukocyte esterase Test strip Ql (U) Negative Normal NEGATIVE [facility] Comment on above: Performed By: #### U A ####[place] [address] Nitrite Ql (U) Negative Normal NEGATIVE [facility] Comment on above: Performed By: #### U A ####[place] [address] pH (U) 7.0 [pH] Normal 5.0 - 8.0 [facility] Comment on above: Performed By: #### U A ####[place] [id number] Protein Ql (U) Negative Normal NEGATIVE [facility] Comment on above: Performed By: #### U A ####[place] [address] Specific gravity (U) [Rel density] 1.010 Normal 1.005 - 1.035 [facility] Comment on above: Performed By: #### U A ####[address] [address] Urobilinogen (U) [Mass/Vol] mg/dL Normal 0.0 - 1.9 [facility] Comment on above: Performed By: #### U A ####[place] [id number] BASIC METABOLIC PANELon 2 -2022 Creatinine [Mass/Vol] 1.33 mg/dL High 0.50 - 1.05 [facility] Comment on above: Result Comment: Conf irmed by repeat analysis Performed By: #### B MP ####[place] [id number] GFR/1.73 sq M.predicted among non-blacks MDRD (S/P/Bld) [Vol rate/Area] 58 mL/min/{1.73_m2} Abnormal >90 [facility] Comment on above: Result Comment: CALC ULATIONS OF ESTIMATED GFR ARE PERFORMED USING THE 2020 CKD-EPI STUDY REFIT EQUATION WITHOUT THE RACE VARIABLE FOR THE IDMS-TRACEABLE CREATININE METHODS. https://jasn.asnjournals.org/content//ASN.97209208 88 Performed By: #### B MP ####[address] [address] Anion gap [Moles/Vol] 8 mmol/L Low 10 - 20 [facility] Comment on above: Performed By: #### B MP ####[address] [address] Calcium [Mass/Vol] 8.0 mg/dL Low 8.6 - 10.3 [facility] Comment on above: Performed By: #### B MP ####[address] [address] Chloride [Moles/Vol] 115 mmol/L High 98 - 107 [facility] Comment on above: Performed By: #### B MP ####[address] [address] Glucose [Mass/Vol] 90 mg/dL Normal 74 - 99 [facility] Comment on above: Performed By: #### B MP ####[address] [address] HCO3 (Bld) [Moles/Vol] 23 mmol/L Normal 21 - 32 [facility] Comment on above: Performed By: #### B MP ####[address] [address] Potassium [Moles/Vol] 3.9 mmol/L Normal 3.5 - 5.3 [facility] Comment on above: Performed By: #### B MP ####[address] [address] Sodium [Moles/Vol] 142 mmol/L Normal 136 - 145 [facility] Comment on above: Performed By: #### B MP ####[place] [address] Urea nitrogen [Mass/Vol] 10 mg/dL Normal 6 - 23 [facility] Comment on above: Performed By: #### B MP ####[address] [address] CBCon 04-11-2023 Erythrocyte distribution width (RBC) [Ratio] 11.8 % Normal 11.5 - 14.5 [facility] Comment on above: Performed By: #### U ARFX #### [address] [address] Hematocrit (Bld) [Volume fraction] 34.9 % Low 36.0 - 46.0 [facility] Comment on above: Performed By: #### U ARFX #### [address] [address] Hemoglobin (Bld) [Mass/Vol] 11.5 g/dL Low 12.0 - 16.0 [facility] Comment on above: Performed By: #### U ARFX #### [address] [address] MCHC (RBC) [Mass/Vol] 33.0 g/dL Normal 32.0 - 36.0 [facility] Comment on above: Performed By: #### U ARFX #### [address] [address] MCV (RBC) [Entitic vol] 90 fL Normal 80 - 100 [facility] Comment on above: Performed By: #### U ARFX #### [address] [address] Platelets (Bld) [#/Vol] 213 10*3/uL Normal 150 - 450 [facility] Comment on above: Performed By: #### U ARFX #### [address] [address] RBC 3.86 x10E12/L Low 4.00 - 5.20 [facility] Comment on above: Performed By: #### U ARFX #### [address] [address] WBC (Bld) [#/Vol] 4.4 10*3/uL Normal 4.4 - 11.3 [facility] Comment on above: Performed By: #### U ARFX #### [address] [address] Discharge [id number] Discharge Profile2 Discharge Orders: Anticipated Discharge Date: Anticipated Discharge [id number] Code Status: Code Status at Discharge: Full [...] Reconciliation and Orders Completedby Physician Reviewing ProviderBautista Vlilanueva MD at 11-Apr-2023 09:34:24 Appointments: Follow-Up Appointment 01: Physician/Dept/[facility] provider Jordyn Thakur Reason for ReferralPyelonephritis, acute kidney injury Call to Schedule in1 week LocationS [place] Phone [phone] Annamarie will call and make her own appointment. Electronic Signatures: Kusum Joaquin (DANIEL) (Signed 11-Apr-2023 10:50) Authored: Discharge Orders, Appointments Bautista Villanueva) (Signed 11-Apr-2023 09:34) Authored: Discharge Orders, Hospital Course (Home Care/Gold Form), Provider FINAL REVIEW of Orders, Appointments, Gold Form - Coil Cutter Summary Last Updated: 11-Apr-2023 10:50 by Kusum Joaquin (DANIEL) [facility] Order Reconciliationon 04-11 Order Reconciliation [...] 1 cap(s) orally once a day Normal [facility] BASIC METABOLIC PANELon 03-23 Anion gap [Moles/Vol] 11 mmol/L Normal 10 - 20 [facility] Comment on above: Performed By: #### B MP ####[place] [address] [place] [address] Calcium [Mass/Vol] 8.4 mg/dL Low 8.6 - 10.3 [facility] Comment on above: Performed By: #### B MP ####[place] [address] [place] [address] Chloride [Moles/Vol] 109 mmol/L High 98 - 107 [facility] Comment on above: Performed By: #### B MP ####[address] [address] Creatinine [Mass/Vol] 2.30 mg/dL High 0.50 - 1.05 [facility] Comment on above: Performed By: #### B MP ####[address] [address] GFR/1.73 sq M.predicted among non-blacks MDRD (S/P/Bld) [Vol rate/Area] 30 mL/min/{1.73_m2} Abnormal >90 [facility] Comment on above: Result Comment: CALC ULATIONS OF ESTIMATED GFR ARE PERFORMED USING THE 2020 CKD-EPI STUDY REFIT EQUATION WITHOUT THE RACE VARIABLE FOR THE IDMS-TRACEABLE CREATININE METHODS. https://jasn.asnjournals.org/content//ASN.89355593 88 Performed By: #### B MP ####[address] [address] Glucose [Mass/Vol] 84 mg/dL Normal 74 - 99 [facility] Comment on above: Performed By: #### B MP ####[address] [address] HCO3 (Bld) [Moles/Vol] 23 mmol/L Normal 21 - 32 [facility] Comment on above: Performed By: #### B MP ####[address] [address] Potassium [Moles/Vol] 3.8 mmol/L Normal 3.5 - 5.3 [facility] Comment on above: Performed By: #### B MP ####[address] [address] Sodium [Moles/Vol] 139 mmol/L Normal 136 - 145 [facility] Comment on above: Performed By: #### B MP ####[address] [address] Urea nitrogen [Mass/Vol] 20 mg/dL Normal 6 - 23 [facility] Comment on above: Performed By: #### B MP ####[address] [address] CBCon 04-10-2023 Erythrocyte distribution width (RBC) [Ratio] 11.9 % Normal 11.5 - 14.5 [facility] Comment on above: Performed By: #### U ARFX #### [address] [address] Hematocrit (Bld) [Volume fraction] 37.4 % Normal 36.0 - 46.0 [facility] Comment on above: Performed By: #### U ARFX #### [place] [address] Hemoglobin (Bld) [Mass/Vol] 12.3 g/dL Normal 12.0 - 16.0 [facility] Comment on above: Performed By: #### U ARFX #### [place] [address] MCHC (RBC) [Mass/Vol] 32.9 g/dL Normal 32.0 - 36.0 [facility] Comment on above: Performed By: #### U ARFX #### [place] [address] MCV (RBC) [Entitic vol] 90 fL Normal 80 - 100 [facility] Comment on above: Performed By: #### U ARFX #### [address] [address] Platelets (Bld) [#/Vol] 239 10*3/uL Normal 150 - 450 [facility] Comment on above: Performed By: #### U ARFX #### [place] [address] RBC 4.16 x10E12/L Normal 4.00 - 5.20 [facility] Comment on above: Performed By: #### U ARFX #### [address] [address] WBC (Bld) [#/Vol] 8.0 10*3/uL Normal 4.4 - 11.3 [facility] Comment on above: Performed By: #### U ARFX #### [place] [address] Daily Progress Note-Medicine on 04-10-2023 Daily Progress Note-Medicine Service: Medicine Subjective Data: LUZ HINOJOSA is a 22 year old Female who is Hospital Day # 2. Patient feeling better no longer nauseated or vomiting. Was able to tolerate diet. Still having some left flank pain. Objective Data: Objective Information: T PRBPMAPSpO2 [id number]% Date/Time04/10 8: 8: 8: 8: 8: 8:04 [...] if there are errors there due to math instructor. Bautista Villanueva Hospitalist Electronic Signatures: Bautista Villanueva) (Signed 10-Apr-2023 11:04) Authored: Service, Subjective Data, Objective Data, Assessment and Plan, Note Completion Last Updated: 10-Apr-2023 11:04 by Bautista Villanueva) Normal [facility] MAGNESIUMon 04-10-2023 Magnesium [Mass/Vol] 1.72 mg/dL Normal 1.60 - 2.40 [facility] Comment on above: Performed By: #### M G ####[address] [place] [place] [address] Admission Risk Screen - Adul ton 04-09-2023 Admission Risk Screen - Adult Allergies: Allergies: clonidine: Hives/Urticaria Patient Verification: New W ID Band Applied in my Departmentno Type of ID Patient is WearingW wristband, but not applied here Patient Transferred from Other Facility ([facility], [facility],etc)no Patient Identity Verified Bypatient ID Band FULL [...] AlertFor Ebola-like Symptoms: Isolate Patient and Notify Provider/Supervisor [facility] For Contact: Notify Provider/Supervisor [facility] Advance Directive: Advance Directive/DNRno (2) Advance Directive [...] material; verbal instruction Cultural Considerationsnone Developmental Considerationsnone Mandaeism Considerationsnone Learning Assessment (Other Learner): Other learner availableno Depression Screen: During the past month, have you often been bothered by feeling down, depressed or hopelessno During the past month, have you often had little interest or pleasure in doing thingsno Have you had any thoughts of harming anyone elseno (1) [place] Suicide: Risk Screen Not Applicable/Able to Answerable to be screened In the Past Month: Have you wished you were or could go to sleep and not wake upno(1) In the Past Month: Have you had any actual thoughts of killing yourself no(1) Lifetime: Have you ever done, started to do, or prepared to do anything to end your lifeno [place] Suicide Risknegative Adult Nutrition Screen: Have you [...] there any (more content not included)... Normal [facility] BASIC METABOLIC PANELon 03-23 Anion gap [Moles/Vol] 14 mmol/L Normal 10 - 20 [facility] Comment on above: Performed By: #### U ARFX #### [address] [address] Calcium [Mass/Vol] 8.1 mg/dL Low 8.6 - 10.3 [facility] Comment on above: Performed By: #### U ARFX #### [address] [address] Chloride [Moles/Vol] 112 mmol/L High 98 - 107 [facility] Comment on above: Performed By: #### U ARFX #### [address] [address] Creatinine [Mass/Vol] 2.16 mg/dL High 0.50 - 1.05 [facility] Comment on above: Performed By: #### U ARFX #### [address] [address] GFR/1.73 sq M.predicted among non-blacks MDRD (S/P/Bld) [Vol rate/Area] 32 mL/min/{1.73_m2} Abnormal >90 [facility] Comment on above: Result Comment: CALC ULATIONS OF ESTIMATED GFR ARE PERFORMED USING THE 2020 CKD-EPI STUDY REFIT EQUATION WITHOUT THE RACE VARIABLE FOR THE IDMS-TRACEABLE CREATININE METHODS. https://jasn.asnjournals.org/content//ASN.18489188 88 Performed By: #### U ARFX #### [address] [address] Glucose [Mass/Vol] 74 mg/dL Normal 74 - 99 [facility] Comment on above: Performed By: #### U ARFX #### [address] [address] HCO3 (Bld) [Moles/Vol] 19 mmol/L Low 21 - 32 [facility] Comment on above: Performed By: #### U ARFX #### [address] [address] Potassium [Moles/Vol] 3.9 mmol/L Normal 3.5 - 5.3 [facility] Comment on above: Performed By: #### U ARFX #### [address] [address] Sodium [Moles/Vol] 141 mmol/L Normal 136 - 145 [facility] Comment on above: Performed By: #### U ARFX #### [address] [address] Urea nitrogen [Mass/Vol] 19 mg/dL Normal 6 - 23 [facility] Comment on above: Performed By: #### U ARFX #### [address] [address] Anion gap [Moles/Vol] 14 mmol/L Normal 10 - 20 [facility] Comment on above: Performed By: #### B MP ####[address] [address] Calcium [Mass/Vol] 9.5 mg/dL Normal 8.6 - 10.3 [facility] Comment on above: Performed By: #### B MP ####[address] [address] Chloride [Moles/Vol] 107 mmol/L Normal 98 - 107 [facility] Comment on above: Performed By: #### B MP ####[address] [address] Creatinine [Mass/Vol] 2.20 mg/dL High 0.50 - 1.05 [facility] Comment on above: Performed By: #### B MP ####[address] [address] GFR/1.73 sq M.predicted among non-blacks MDRD (S/P/Bld) [Vol rate/Area] 32 mL/min/{1.73_m2} Abnormal >90 [facility] Comment on above: Result Comment: CALC ULATIONS OF ESTIMATED GFR ARE PERFORMED USING THE 2020 CKD-EPI STUDY REFIT EQUATION WITHOUT THE RACE VARIABLE FOR THE IDMS-TRACEABLE CREATININE METHODS. https://jasn.asnjournals.org/content/early//ASN.14028634 88 Performed By: #### B MP ####[address] [address] Glucose [Mass/Vol] 91 mg/dL Normal 74 - 99 [facility] Comment on above: Performed By: #### B MP ####[address] [address] HCO3 (Bld) [Moles/Vol] 23 mmol/L Normal 21 - 32 [facility] Comment on above: Performed By: #### B MP ####[address] [address] Potassium [Moles/Vol] 3.7 mmol/L Normal 3.5 - 5.3 [facility] Comment on above: Performed By: #### B MP ####[address] [address] Sodium [Moles/Vol] 140 mmol/L Normal 136 - 145 [facility] Comment on above: Performed By: #### B MP ####[address] [address] Urea nitrogen [Mass/Vol] 20 mg/dL Normal - [facility] Comment on above: Performed By: #### B ####[address] [address] BLOOD CULTURE, BACTERIALon 0 04-09-2023 BLOOD CULTURE, BACTERIAL PATIENT: LUZ HINOJOSA LOCATION: [address]#: [id number] : [birth year] AGE: SEX: F ORDERED BY: ALIE RODRIGUEZ SOURCE: Blood COLLECTED: 04/09/23 14:05 ANTIBIOTICS AT [facility].: RECEIVED : 04/10/23 01:43 SITE: R E S U L T S BLOOD CULTURE, BACTERIAL FINAL 04/14/23 05:42 No Growth at 1 days No Growth at 2 days No Growth at 3 days NO GROWTH at 4 days - FINAL REPORT Normal [facility] Comment on above: Performed By: #### B LD ####[id number] [place] [address] BLOOD CULTURE, BACTERIAL PATIENT: LUZ HINOJOSA LOCATION: [address]#: [id number] : [birth year] AGE: SEX: F ORDERED BY: ALIE RODRIGUEZ SOURCE: Blood COLLECTED: 04/09/23 14:05 ANTIBIOTICS AT [facility].: RECEIVED : 04/10/23 01:45 SITE: ANTECUBITAL ANTECUBITAL R E S U L T S BLOOD CULTURE, BACTERIAL FINAL 04/14/23 05:42 No Growth at 1 days No Growth at 2 days No Growth at 3 days NO GROWTH at 4 days - FINAL REPORT Normal [facility] Comment on above: Performed By: #### B LDC ####[id number] [place] [address] CBC AND DIFFERENTIALon 04-09 % AUTOMATED IMMATURE GRAN 0.2 % Normal 0.0 - 0.9 [facility] Comment on above: Result Comment: Tammie ture Granulocyte Count (IG) includes promyelocytes, myelocytes and metamyelocytes but does not include bands. Percent differential counts (%) should be interpreted in the context of the absolute cell counts (cells/L). Performed By: #### C BCDF #### [address] [address] Basophils (Bld) [#/Vol] 0.02 10*3/uL Normal 0.00 - 0.10 [facility] Comment on above: Performed By: #### C BCDF #### [address] [address] Basophils/100 WBC (Bld) 0.2 % Normal 0.0 - 2.0 [facility] Comment on above: Performed By: #### C BCDF #### [address] [address] Eosinophils (Bld) [#/Vol] 0.02 10*3/uL Normal 0.00 - 0.70 [facility] Comment on above: Performed By: #### C BCDF #### [address] [address] Eosinophils/100 WBC (Bld) 0.2 % Normal 0.0 - 6.0 [facility] Comment on above: Performed By: #### C BCDF #### [address] [address] Erythrocyte distribution width (RBC) [Ratio] 11.7 % Normal 11.5 - 14.5 [facility] Comment on above: Performed By: #### C BCDF #### [address] [address] Hematocrit (Bld) [Volume fraction] 42.9 % Normal 36.0 - 46.0 [facility] Comment on above: Performed By: #### C BCDF #### [address] [address] Hemoglobin (Bld) [Mass/Vol] 14.3 g/dL Normal 12.0 - 16.0 [facility] Comment on above: Performed By: #### C BCDF #### [address] [address] Lymphocytes (Bld) [#/Vol] 0.91 10*3/uL Low 1.20 - 4.80 [facility] Comment on above: Performed By: #### C BCDF #### [address] [address] Lymphocytes/100 WBC (Bld) 10.4 % Normal 13.0 - 44.0 [facility] Comment on above: Performed By: #### C BCDF #### [address] [address] MCHC (RBC) [Mass/Vol] 33.3 g/dL Normal 32.0 - 36.0 [facility] Comment on above: Performed By: #### C BCDF #### [address] [address] MCV (RBC) [Entitic vol] 89 fL Normal 80 - 100 [facility] Comment on above: Performed By: #### C BCDF #### [address] [address] Monocytes (Bld) [#/Vol] 1.12 10*3/uL High 0.10 - 1.00 [facility] Comment on above: Performed By: #### C BCDF #### [address] [address] Monocytes/100 WBC (Bld) 12.8 % Normal 2.0 - 10.0 [facility] Comment on above: Performed By: #### C BCDF #### [address] [address] Neutrophils (Bld) [#/Vol] 6.64 10*3/uL Normal 1.20 - 7.70 [facility] Comment on above: Result Comment: Perc ent differential counts (%) should be interpreted in the context of the absolute cell counts (cells/L). Performed By: #### C BCDF #### [address] [address] Neutrophils/100 WBC (Bld) 76.2 % Normal 40.0 - 80.0 [facility] Comment on above: Performed By: #### C BCDF #### [address] [address] Platelets (Bld) [#/Vol] 283 10*3/uL Normal 150 - 450 [facility] Comment on above: Performed By: #### C BCDF #### [address] [address] RBC 4.85 x10E12/L Normal 4.00 - 5.20 [facility] Comment on above: Performed By: #### C BCDF #### [address] [address] WBC (Bld) [#/Vol] 8.7 10*3/uL Normal 4.4 - 11.3 [facility] Comment on above: Performed By: #### C BCDF #### [address] [address] [address] ABDOMEN AND PELVIS W IV C [facility] 04-09-2023 CT ABDOMEN AND PELVIS W IV CONTRAST Patient Name: LUZ HINOJOSA STUDY: CT ABDOMEN AND PELVIS W IV CONTRAST; 04/09/2023 12:57 pm INDICATION: Periumbilical and RLQ abdominal pain . COMPARISON: January 09, 2020 renal ultrasound ACCESSION NUMBER(S): [id number] ORDERING CLINICIAN: ALIE RODRIGUEZ TECHNIQUE: CT of [...] fluid. Electronically signed by: KIKI ACOSTA MD [facility] Discharge Planning [id number] 04-09-2023 Discharge Planning Note2 Discharge Planning: Needs Prior to Discharge (ex. Home Care Orders, IV/O2 prescriptions) None Discharge Barriersnone Planned Dispositionhome Discharge Destinationhome AMPAC < 20no Patient/Manager Lab Stated Goalhome Anticipated Discharge [id number] Discharge Planning 04/10/23 0810- Care Transition Note: [...] make her primary contact. Boyfriend Sony Munoz [phone]. Will notify registration of same. Desires to keep her mom as second. AMPAC per nursing is 24, no falls or use of assistive devices. No issues in mobility. 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 Will need work excuse. Plan to d/c home with no other anticipated needs. CT will follow. REBECCA Doshi (HALO) Assessment: Discharge Planning Assessment [id number] Discharge Planning Assessment Completed byREBECCA Doshi TCC Primary Contact Name and NumberBoyfriend Sony Munoz [phone] James Qureshi [phone] Prior Level of FunctioningIndependent in all ADL's and IADL's, works, drives Lives Withsignificant other(1) Living Arrangementsapartment(1) Stated Reason for Admissionmy stomach hurt, I started puking this morning(1) Arrived Fromemergency department (1) [facility]/ Injury/ Need Assist with Ambulationdenies Home Care Agency/Support ServicesNone Diabetic/Supplies NeededNone Resource/Environmental Concernsnone(1) [facility] Services Anticipated at Transitionnone(1) PCP Last [...] Profile - Adult v2 09-Apr-2023 15:54 Normal [facility] HCG,URINEon 04-09-2023 Beta HCG ( test) Ql (U) Negative Normal Negative [facility] Comment on above: Performed By: #### H CGU ####[place] [id number] HEPATIC FUNCTION PANELon Albumin [Mass/Vol] 4.6 g/dL Normal 3.4 - 5.0 [facility] Comment on above: Performed By: #### U ARFX #### [address] [address] ALP [Catalytic activity/Vol] 48 U/L Normal 33 - 110 [facility] Comment on above: Performed By: #### U ARFX #### [address] [address] ALT [Catalytic activity/Vol] 8 U/L Normal 7 - 45 [facility] Comment on above: Result Comment: Glory ents treated with Sulfasalazine may generate falsely decreased results for ALT. Performed By: #### U ARFX #### [place] [address] AST [Catalytic activity/Vol] 16 U/L Normal 9 - 39 [facility] Comment on above: Performed By: #### U ARFX #### [place] [address] Bilirubin [Mass/Vol] 1.1 mg/dL Normal 0.0 - 1.2 [facility] Comment on above: Performed By: #### U ARFX #### [place] [address] Bilirubin.indirect [Mass/Vol] 0.2 mg/dL Normal 0.0 - 0.3 [facility] Comment on above: Performed By: #### U ARFX #### [place] [address] Protein [Mass/Vol] 7.5 g/dL Normal 6.4 - 8.2 [facility] Comment on above: Performed By: #### U ARFX #### [place] [address] LACTATEon 04-09-2023 Lactate [Moles/Vol] 0.8 mmol/L Normal 0.4 - 2.0 [facility] Comment on above: Result Comment: Yoko puncture immediately after or during the administration of Metamizole may lead to falsely low results. Testing should be performed immediately prior to Metamizole dosing. Performed By: #### L ACT #### [place] [address] LIPASEon 04-09-2023 Lipase [Catalytic activity/Vol] 31 U/L Normal 9 - 82 [facility] Comment on above: Result Comment: Yoko puncture immediately after or during the administration of Metamizole may lead to falsely low results. Testing should be performed immediately prior to Metamizole dosing. X-mfjrrl-a-benzoquinone imine (metabolite of Acetaminophen) will generate erroneously low results in samples for patients that have taken toxic doses of acetaminophen. Performed By: #### L IPAS #### [facility] [address] [place] [address] Order Reconciliationon 04-09 Order Reconciliation Page 1 [...] capsule 1 cap(s) orally once a day [id number] AM Pantoprazole Enteric Coated Tablet (PROTONIX)DOSE = [...] Every 8 Hours and as Needed Normal [facility] Patient Profile - Adult v2on 04-09-2023 Patient Profile - Adult v2 Profile: Initial Info: How to be AddressedBrianna Spoken Language PreferredEnglish (1) Source of Informationpatient Stated Reason for Admissionmy stomach hurt, I started puking this morning Wants Family/Rep Notified of Admissionn/a; family present Notify PCPnotify PCP [facility] Internal Medicine Jordyn CORRIGAN Informed of Patient Visiting Rightsyes Arrived Fromemergency department Patient Belongingsremains with patient Patient Belongings Remaining with Patientclothing; cell phone/electronics; purse/wallet; jewelry Medications Brought to Hospitalno General Health: Weight in kg54 kilogram(s)(2) Weight in rci225 pound(s) Weight Methodactual (measured) Scale Typebed Height [...] From History and Physical 09-Apr-2023 15:05 Normal [facility] Provider Note - ED v3on 03-23 Provider Note - ED v3 Provider Note: [...] made to minimize errors. Minor errors in math instructor may be present. Please call if questions.. [...] a day SIGNIFICANT EVENTS: Past Medical History Description:[place] teeth extraction CRITICAL CARE RESULTS: Recent Lab Results: I have reviewed these laboratory results: Basic Metabolic Panel Trending View [id number] 13:30:00 09-Apr-2023 11:05:00 Glucose, Serum74 91 NA141 140 K3.9 3.7 CL112 H 107 Bicarbonate, Serum19 L 23 Anion Gap, Serum14 14 BUN19 20 CREAT2.16 H 2.20 H GFR Myfrvo76 A 32 A Calcium, Serum8.1 L 9.5 [...] Reference Range: STRAW,YELLOW Appearance, Urine HAZY Specific Nadeau, Urine 1.006 pH, Urine 6.0 Protein, Urine NEGATIVE Glucose, (more content not included)... Normal [facility] Risk Screen - Adult Emergenc yon 04-09-2023 Risk Screen - Adult Emergency Preferred Language: Preferred Language: Preferred Language for Discussing Health Care (patient/designee)[place] Patient Preferred Pharmacy: Patient Preferred Pharmacy Statement: [...] instruction; written material Cultural Considerationsnone Developmental Considerationsnone Mandaeism Considerationsnone Learning Assessment (Other Learner): Learning Assessment [...] an injured patient at a Tra[place] Center [place]/[place]/ [place]): no Electronic Signatures: Imelda Ramirez (RN) (Signed 09-Apr-2023 10:53) Authored: Preferred Language, Patient Preferred Pharmacy, Advanced Directives, Family Violence Adult, Learning Assessment (Patient), Learning Assessment (Other Learner), Pressure Injury/TB/Substance, Pressure Injury, CAGE Last Updated: 09-Apr-2023 10:53 by Imelda Ramirez (RN) [facility] Triage - EDon 04-09-2023 Triage [...] support. Weight: 119.0 pounds. Calculated 54.0 kg. [place] Coma Scale: Best Eye Response: (E4) spontaneous Best Motor Response: (M6) obeys commands Best Verbal Response: (V5) oriented [place] Score: 15 Cough lasting greater than 3 [...] Reviewedyes Electronic Signatures: Imelda Ramirez (ROXI) (Signed 09-Apr-2023 10:52) Entered: Risk Screens, Pain, Travel History, Chart Review, Scores, Past Medical History Authored: Quick Triage, Risk Screens, Pain, Travel History, Chart Review, Scores, Past Medical History Last Updated: 09-Apr-2023 10:52 by Imelda Ramirez (ROXI) Normal [facility] UA MICROSCOPICon 04-09-2023 BACTERIA 2+ /HPF Abnormal [facility] Comment on above: Performed By: #### U AMIC ####[place] [address] RBC 2 /HPF Normal 0-5 [facility] Comment on above: Performed By: #### U AMIC ####[place] [address] SQUAMOUS EPITH. CELLS 19 /HPF Normal [facility] Comment on above: Performed By: #### U AMIC ####[place] [address] WBC 9 /HPF Abnormal 0-5 [facility] Comment on above: Performed By: #### U AMIC ####[place] [address] URINALYSIS WITH CULTURE IF I NDICATEDon 04-09-2023 Appearance (U) HAZY Normal CLEAR [facility] Comment on above: Performed By: #### U ARFX #### [place] [address] Bilirubin Ql (U) Negative Normal NEGATIVE [facility] Comment on above: Performed By: #### U ARFX #### [place] [address] Color (U) Rox Normal STRAW,YELLOW [facility] Comment on above: Performed By: #### U ARFX #### [place] [address] Glucose Ql (U) Negative Normal NEGATIVE [facility] Comment on above: Performed By: #### U ARFX #### [place] [address] Hemoglobin Ql (U) MODERATE (2+) Abnormal NEGATIVE [facility] Comment on above: Performed By: #### U ARFX #### [place] [address] Ketones Ql (U) Negative Normal NEGATIVE [facility] Comment on above: Performed By: #### U ARFX #### [place] [address] Leukocyte esterase Test strip Ql (U) Negative Normal NEGATIVE [facility] Comment on above: Performed By: #### U ARFX #### [place] [address] Nitrite Ql (U) Positive Abnormal NEGATIVE [facility] Comment on above: Performed By: #### U ARFX #### [place] [address] pH (U) 6.0 [pH] Normal 5.0 - 8.0 [facility] Comment on above: Performed By: #### U ARFX #### [place] [address] Protein Ql (U) Negative Normal NEGATIVE [facility] Comment on above: Performed By: #### U ARFX #### [address] [address] Specific gravity (U) [Rel density] 1.006 Normal 1.005 - 1.035 [facility] Comment on above: Performed By: #### U ARFX #### [address] [address] Urobilinogen (U) [Mass/Vol] mg/dL Normal 0.0 - 1.9 [facility] Comment on above: Performed By: #### U ARFX #### [address] [address] URINE CULTURE,BACTERIALon URINE CULTURE,BACTERIAL PATIENT: LUZ HINOJOSA LOCATION: [address]#: [id number] : [birth year] AGE: SEX: F ORDERED BY: ALIE RODRIGUEZ SOURCE: URINE COLLECTED: 04/09/23 11:05 ANTIBIOTICS AT [facility].: RECEIVED : 04/09/23 19:53 SITE: R E S U L T S URINE CULTURE,BACTERIAL FINAL 04/10/23 13:17 NO SIGNIFICANT GROWTH. Normal [facility] Comment on above: Performed By: #### U RINC ####[id number] [place] [address] Provider Note - ED v3on 10-21 Provider [...] and vomiting SIGNIFICANT EVENTS: Past Medical History Description:[place] teeth extraction MDM MDM/ED COURSE: PMH: Reviewed [...] ill patient: no Electronic Signatures: Alie Flor ([facility]) (Signed 06-Nov-2022 19:03) Authored: HPI, PMH, MDM/ED Course, Clinical Impression, Attestation, Chart Review, Scores Last Updated: 06-Nov-2022 19:03 by Alie Flor ([facility]) References: 1. Data Referenced From Triage - ED 06-Nov-2022 18:48 Normal [facility] Risk Screen - Adult Emergenc yon 11-06-2022 Risk Screen - Adult Emergency Preferred Language: Preferred Language: Preferred Language for Discussing Health Care (patient/designee)[place] Patient Preferred Pharmacy: Patient Preferred Pharmacy Statement: [...] Learning Preferencesverbal instruction Cultural Considerationsnone Developmental Considerationsnone Mandaeism Considerationsnone Learning Assessment (Other Learner): Learning Assessment [...] an injured patient at a Trauma Center ([place]/ [place]): no Electronic Signatures: Vivian Allred (RN) (Signed 06-Nov-2022 18:52) Authored: Preferred Language, Patient Preferred Pharmacy, Advanced Directives, Family Violence Adult, Learning Assessment (Patient), Learning Assessment (Other Learner), Pressure Injury/TB/Substance, Pressure Injury, CAGE Last Updated: 06-Nov-2022 18:52 by Vivian Allred (RN) Normal [facility] Triage - EDon 11-06-2022 Triage - ED Quick Triage: Are You no Have You Given In The Last 6 Weeksno Are You Currently Breastfeedingno Chart Review: PRIMARY ASSESSMENT ABCD Normal Findings: airway open and patent, circulation normal and alert and oriented ARRIVAL INFORMATION Means of Arrival: Ambulatory Mode of Arrival: private vehicle Arrival From: home Accompanied By: self Language: Spoken Language Preferred: [place]ican Reading Language Preferred: [place] Present on Arrival: Device Present on Arrival [...] BMI (kg/m2): 19.994 Calculated BSA (m2) 1.58 [place] Coma Scale: Best Eye Response: (E4) spontaneous Best Motor Response: (M6) obeys commands Best Verbal Response: (V5) oriented [place] Score: 15 Allergies: yes Last menstrual period: unknown [employer]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 Patient has homicidal thoughts: no [...] 06-Nov-2022 18:51 by Vivian Allred (ROXI) Normal [facility] BASIC METABOLIC PANELon 02-0 Anion gap [Moles/Vol] 11 mmol/L Normal 10 - 20 [facility] Comment on above: Performed By: #### B MP #### [address] [address] Calcium [Mass/Vol] 9.0 mg/dL Normal 8.6 - 10.3 [facility] Comment on above: Performed By: #### B MP #### [address] [address] Chloride [Moles/Vol] 105 mmol/L Normal 98 - 107 [facility] Comment on above: Performed By: #### B MP #### [address] [address] Creatinine [Mass/Vol] 0.73 mg/dL Normal 0.50 - 1.05 [facility] Comment on above: Performed By: #### B MP #### [address] [address] eGFR FEMALE >90 Normal >90 [facility] Comment on above: Result Comment: CALC ULATIONS OF ESTIMATED GFR ARE PERFORMED USING THE 2020 CKD-EPI STUDY REFIT EQUATION WITHOUT THE RACE VARIABLE FOR THE IDMS-TRACEABLE CREATININE METHODS. https://jasn.asnjournals.org/content//ASN.77467777 88 Performed By: #### B MP #### [address] [address] Glucose [Mass/Vol] 78 mg/dL Normal 74 - 99 [facility] Comment on above: Performed By: #### B MP #### [place] [id number] HCO3 (Bld) [Moles/Vol] 27 mmol/L Normal 21 - 32 [facility] Comment on above: Performed By: #### B MP #### [address] [address] Potassium [Moles/Vol] 3.9 mmol/L Normal 3.5 - 5.3 [facility] Comment on above: Performed By: #### B MP #### [place] [id number] Sodium [Moles/Vol] 139 mmol/L Normal 136 - 145 [facility] Comment on above: Performed By: #### B MP #### [address] [address] Urea nitrogen [Mass/Vol] 11 mg/dL Normal 6 - 23 [facility] Comment on above: Performed By: #### B MP #### [address] [address] CBC AND DIFFERENTIALon 08-24 % AUTOMATED IMMATURE GRAN 0.0 % Normal 0.0 - 0.9 [facility] Comment on above: Result Comment: Tammie ture Granulocyte Count (IG) includes promyelocytes, myelocytes and metamyelocytes but does not include bands. Percent differential counts (%) should be interpreted in the context of the absolute cell counts (cells/L). Performed By: #### U ARFX #### [address] [address] Basophils (Bld) [#/Vol] 0.04 10*3/uL Normal 0.00 - 0.10 [facility] Comment on above: Performed By: #### U ARFX #### [address] [address] Basophils/100 WBC (Bld) 0.5 % Normal 0.0 - 2.0 [facility] Comment on above: Performed By: #### U ARFX #### [address] [address] Eosinophils (Bld) [#/Vol] 0.08 10*3/uL Normal 0.00 - 0.70 [facility] Comment on above: Performed By: #### U ARFX #### [address] [address] Eosinophils/100 WBC (Bld) 1.1 % Normal 0.0 - 6.0 [facility] Comment on above: Performed By: #### U ARFX #### [address] [address] Erythrocyte distribution width (RBC) [Ratio] 11.3 % Low 11.5 - 14.5 [facility] Comment on above: Performed By: #### U ARFX #### [address] [address] Hematocrit (Bld) [Volume fraction] 41.9 % Normal 36.0 - 46.0 [facility] Comment on above: Performed By: #### U ARFX #### [address] [address] Hemoglobin (Bld) [Mass/Vol] 14.1 g/dL Normal 12.0 - 16.0 [facility] Comment on above: Performed By: #### U ARFX #### [address] [address] Lymphocytes (Bld) [#/Vol] 2.21 10*3/uL Normal 1.20 - 4.80 [facility] Comment on above: Performed By: #### U ARFX #### [address] [address] Lymphocytes/100 WBC (Bld) 29.6 % Normal 13.0 - 44.0 [facility] Comment on above: Performed By: #### U ARFX #### [address] [address] MCHC (RBC) [Mass/Vol] 33.7 g/dL Normal 32.0 - 36.0 [facility] Comment on above: Performed By: #### U ARFX #### [address] [address] MCV (RBC) [Entitic vol] 88 fL Normal 80 - 100 [facility] Comment on above: Performed By: #### U ARFX #### [address] [address] Monocytes (Bld) [#/Vol] 0.61 10*3/uL Normal 0.10 - 1.00 [facility] Comment on above: Performed By: #### U ARFX #### [address] [address] Monocytes/100 WBC (Bld) 8.2 % Normal 2.0 - 10.0 [facility] Comment on above: Performed By: #### U ARFX #### [address] [address] Neutrophils (Bld) [#/Vol] 4.53 10*3/uL Normal 1.20 - 7.70 [facility] Comment on above: Result Comment: Perc ent differential counts (%) should be interpreted in the context of the absolute cell counts (cells/L). Performed By: #### U ARFX #### [address] [address] Neutrophils/100 WBC (Bld) 60.6 % Normal 40.0 - 80.0 [facility] Comment on above: Performed By: #### U ARFX #### [address] [address] Platelets (Bld) [#/Vol] 286 10*3/uL Normal 150 - 450 [facility] Comment on above: Performed By: #### U ARFX #### [address] [address] RBC 4.79 x10E12/L Normal 4.00 - 5.20 [facility] Comment on above: Performed By: #### U ARFX #### [address] [address] WBC (Bld) [#/Vol] 7.5 10*3/uL Normal 4.4 - 11.3 [facility] Comment on above: Performed By: #### U ARFX #### [address] [address] HCG,BETA-QUANTITATIVEon HCG,BETA-QUANTITATI VE <2 Normal [facility] Comment on above: Result Comment: . Total HCG measurement is performed using the Tram Sensopia Access Immunoassay which detects intact HCG and free beta HCG subunit. . This test is not indicated for use as a tumor marker. HCG testing is performed using a different test methodology at [facility] than other physicians & surgeons hospital. Direct result comparison should only be made within the same method. REF VALUES NON FEMALE <5 MALES <5 Performed By: #### H CGQU #### [address] [address] HCG,URINEon 08-24-2022 Beta HCG ( test) Ql (U) Negative Normal Negative [facility] Comment on above: Performed By: #### H CGU #### [address] [address] Provider Note - ED v3on Provider Note [...] (V49.89) (Z78.9) Surgical History Problems History of [place] tooth extraction x 4 extracted 4 years [...] a day SIGNIFICANT EVENTS: Past Medical History Description:[place] teeth extraction REVIEW OF SYSTEMS CONSTITUTIONAL: Negative [...] affect. N (more content not included)... Normal [facility] Risk Screen - Adult Emergenc yon 08-24-2022 Risk Screen - Adult Emergency Preferred Language: Preferred Language: Preferred Language for Discussing Health Care (patient/designee)[place] Patient Preferred Pharmacy: Patient Preferred Pharmacy Statement: [...] instruction; written material Cultural Considerationsnone Developmental Considerationsnone Mandaeism Considerationsnone Learning Assessment (Other Learner): Learning Assessment [...] an injured patient at a [place] Center ([facility]/ [place]): no Electronic Signatures: Ruthann Aguilera (ROXI) (Signed 24-Aug-2022 16:09) Authored: Preferred Language, Patient Preferred Pharmacy, Advanced Directives, Family Violence Adult, Learning Assessment (Patient), Learning Assessment (Other Learner), Pressure Injury/TB/Substance, Pressure Injury, CAGE Last Updated: 24-Aug-2022 16:09 by Ruthann Aguilera (RN) [facility] Triage - EDon 08-24-2022 Triage [...] Verbal Response: (V5) oriented Justus Score: 15 [place] Assessment Qualifiers: patient not sedated/intubated Cough lasting [...] Past Medical History: Past Medical History Reviewedyes [place] teeth extraction: Past Medical History, Active Electronic Signatures: Johnny Potter (EMT-P) (Signed 24-Aug-2022 14:18) Entered: Risk Screens, Pain, Travel History, Chart Review, Scores Authored: Quick Triage, Risk Screens, Pain, Travel History, Chart Review, Scores Ruthann Aguilera (RN) (Signed 24-Aug-2022 16:07) Authored: Quick Triage, Pain, Chart Review, Past Medical History Last Updated: 24-Aug-2022 16:07 by Ruthann Aguilera (RN) Normal [facility] UA MICROSCOPICon 08-24-2022 BACTERIA 1+ /HPF Abnormal [facility] Comment on above: Performed By: #### U AMIC ####[place] [address] RBC 83 /HPF Abnormal 0-5 [facility] Comment on above: Performed By: #### U AMIC ####[place] [address] SQUAMOUS EPITH. CELLS 11 /HPF Normal [facility] Comment on above: Performed By: #### U AMIC ####[place] [address] WBC 7 /HPF Abnormal 0-5 [facility] Comment on above: Performed By: #### U AMIC ####[address] [address] URINALYSISon 08-24-2022 Appearance (U) HAZY Normal CLEAR [facility] Comment on above: Performed By: #### U ARFX #### [place] [address] Bilirubin Ql (U) Negative Normal NEGATIVE [facility] Comment on above: Performed By: #### U ARFX #### [place] [address] Color (U) Yellow Normal STRAW,YELLOW [facility] Comment on above: Performed By: #### U ARFX #### [place] [address] Glucose Ql (U) Negative Normal NEGATIVE [facility] Comment on above: Performed By: #### U ARFX #### [place] [address] Hemoglobin Ql (U) LARGE(3+) Abnormal NEGATIVE [facility] Comment on above: Performed By: #### U ARFX #### [place] [address] Ketones Ql (U) Negative Normal NEGATIVE [facility] Comment on above: Performed By: #### U ARFX #### [place] [address] Leukocyte esterase Test strip Ql (U) Negative Normal NEGATIVE [facility] Comment on above: Performed By: #### U ARFX #### [place] [address] Nitrite Ql (U) Negative Normal NEGATIVE [facility] Comment on above: Performed By: #### U ARFX #### [place] [address] pH (U) 7.0 [pH] Normal 5.0 - 8.0 [facility] Comment on above: Performed By: #### U ARFX #### [place] [address] Protein Ql (U) 30(1+) Abnormal NEGATIVE [facility] Comment on above: Performed By: #### U ARFX #### [address] [address] Specific gravity (U) [Rel density] 1.018 Normal 1.005 - 1.035 [facility] Comment on above: Performed By: #### U ARFX #### [address] [address] Urobilinogen (U) [Mass/Vol] mg/dL Normal 0.0 - 1.9 [facility] Comment on above: Performed By: #### U ARFX #### [address] [address] Office Visit (Internal Medic ine)on 08-03-2022 Follow-up visit Diagnoses/Problems Assessed Anxiety (300.00) (F41.9) Weight gain (783.1) (R63.5) Abnormal menses (626.9) (N92.6) Depression screening negative (V79.0) (Z13.31) Orders Abnormal menses, Night sweats T3 - Free Triiodothyronine, Serum; Status:Active; Requested for:14Sep2022; Perform:Lab Services - Lab To Draw (Blood Test); Due:13Dec2022;Ordered; For:Abnormal menses, Night sweats; Ordered By:Kemi Echevarria; T4 - Free Thyroxine, Serum; Status:Active; Requested for:[id number]; Perform:Lab Services - Lab To Draw (Blood Test); Due:13Dec2022;Ordered; For:Abnormal menses, Night sweats; Ordered By:Kemi Echevarria; TSH - Thyroid Stimulating Hormone, Serum; Status:Active; Requested for:[id number]; Perform:Lab Services - Lab To Draw (Blood Test); Due:13Dec2022;Ordered; For:Abnormal menses, Night sweats; Ordered By:Kemi Echevarria; Generalized anxiety disorder with panic attacks Renew: PARoxetine HCl - 40 MG Oral Tablet; TAKE 1 TABLET DAILY Rx By: Kemi Echevarria; Dispense: 90 Days ; #:90 Tablet; Refill: 3;For: Generalized anxiety disorder with panic attacks; CATE = N; Verified Transmission to [facility] 9210; Last Updated By: Cortez Klein; 08/03/2022 11:40:41 [...] (V49.89) (Z78.9) Surgical History Problems History of [place] tooth extraction x 4 extracted 4 years [...] 2:28:14 P (more content not included)... Normal [facility] Tobacco Screening.on 023 Tobacco use status CPHS a) Yes [facility] Work Phone: Tobacco Screening. Yes [facility] Work Phone: IO HCG, Urine Test on 06-14-2022 HCG ( test) Ql (U) Negative [facility] Work Phone: Office Visit (Internal Medic ine)on 06-14-2022 Follow-up visit Diagnoses/Problems Assessed Abnormal menses (626.9) (N92.6) Orders Abnormal menses Gynecology Referral Evaluation and Treatment Evaluate AND Treat Status: Complete Done: 14Jun2022 Ordered;For: Abnormal menses; Ordered By: Jordyn Thakur Performed: Due: 12Sep2022; Last Updated By: Melvi Meyers; 06/14/2022 4:00:47 PM 08-10-2022 at 1 with jocelyne bae LEONOR HCG, Urine Test; Status:Complete; Done: 14Jun2022 04:05PM Performed:In Office; Due:12Sep2022;Ordered; For:Abnormal menses; Ordered By:Jordyn Thakur; Patient Discussion/Summary [...] (V49.89) (Z78.9) Surgical History Problems History of [place] tooth extraction x 4 extracted 4 years ago Family History Mother Family history of Bipolar 1 disorder Father No pertinent family history Maternal Grandmother Family history of Family history of myocardial infarction (V17.3) (Z82.49) in her 40's Family history of type 2 diabetes mellitus (V18.0) (Z83.3) Social History Problems Cigarette nicotine dependence (305.1) (F17.210) (more content not included)... Normal [facility] Tobacco Screening.on 022 Fall risk assessment a) No falls within the last year [facility] Work Phone: Tobacco use status CPHS a) Yes [facility] Work Phone: Tobacco Screening. Yes [facility] Work Phone: XR [...] distal phalanx. There is minimal callous formation. [employer] Workstation ID: [id number] Dictated by: MAYELIN LANDRY on SunJun 07, 2022 7:25:17 PM EST Transcribed by: MYRNA GOODMAN on SunJun 07, 2022 7:40:20 PM EST Finalized by: MAYELIN LANDRY on SunJun 08, 2022 9:26:59 AM EST Normal [facility] Comment on above: Order Comment: [...] attacks; CATE = N; [facility]; Last Updated By: Crashmob; 06/06/2022 2:28:43 PM Renew: PARoxetine HCl - 30 MG Oral Tablet; TAKE 1 TABLET DAILY Rx By: Jordyn Ramirez; Dispense: 90 Days ; #:90 Tablet; Refill: 1;For: Generalized anxiety disorder with panic attacks; CATE = N; Verified Transmission to [facility]; Last Updated By: Crashmob; 06/06/2022 2:28:49 PM Patient Discussion/Summary FEBRUARY WITH [...] (V49.89) (Z78.9) Surgical History Problems History of [place] tooth extraction x 4 extracted 4 years ago Family History Mother Family history of Bipolar 1 disorder Father No pertinent family history Maternal Grandmother Family history of Family history of myocardial infarction (V17.3) (Z82.49) in her 40's Family history of type 2 diabetes mellitus (V18.0) (Z83.3) Social History Problems Cigarette nicotine dependence (305.1) (F17.210) Consumes al (more content not included)... Normal [facility] Tobacco Screening.on Fall risk assessment a) No falls within the last year [facility] Work Phone: Tobacco use status CPHS a) Yes [facility] Work Phone: Tobacco Screening. Yes [facility] Work Phone: XR [...] May 14, 2022 8:49:48 AM EDT Normal [facility] Comment on above: Order Comment: Injur y/Trauma or Illness?:Injury/Trauma How long have you had these symptoms (acute/chronic)?:Acute Reason for exam?:f.u Closed nondisplaced fracture of distal phalanx of left middle finger History of cancer?:n Surgeries, chemotherapy, or radiation?:n Type of Exam?:Subsequent/Follow-up Mechanism of injury?:wrestling on 04/23 HCG, Beta Quantitativeon HCG.beta subunit Qn m[IU]/mL [facility] Work Phone: Comment on above: [...] HCG measurement is performed using the Tram Sensopia Access Immunoassay which detects intact HCG and free beta HCG subunit. This test is not indicated for use as a tumor marker. HCG testing is performed using a different test methodology at [facility] than [facility]. Direct result comparison should only be made within the same method. REF VALUESNON FEMALE <5MALES <5 HCG,BETA-QUANTITATIVEon 04-22 HCG,BETA-QUANTITATI VE <2 Normal [facility] Comment on above: Result Comment: Low- level [...] performed using a different test methodology at [facility] than other [facility]. Direct result comparison should only be made within the same method. REF VALUES NON FEMALE <5 MALES <5 Performed By: #### H CGQU #### [facility] [address] [place] [address] Office Visit (Internal Medic ine)on 05-02-2022 Follow-up [...] (V49.89) (Z78.9) Surgical History Problems History of [place] tooth extraction x 4 extracted 4 years [...] Allergies Medication clonidine Allergy; Hives;; Updated By: Alam Mckeon; 03/03/2022 2:28:14 PM Current Meds Medication NameInstruction busPIRone HCl - 5 MG Oral TabletTAKE 1 TABLET 3 times daily PRN anxiety Omeprazole 20 MG Oral Capsule Delayed ReleaseTAKE 1 CAPSULE Daily PARoxetine HCl - 30 MG Oral TabletTAKE 1 TABLET DAILY. Vitals Vital Signs Recorded: 02May2022 08:59AM Heart Kopr602 Pdkekulm645 Wdioitwid41 Height5 ft 5 in Dlbaaw419 lb 15.82 oz BMI Ezymuumflr00.81 kg/m2 BSA Calculated1.52 Tobacco Usea) Yes Patient [...] Apical pulse (more content not included)... Normal [facility] Tobacco Screening.on 022 Fall risk assessment a) No falls within the last year [facility] Work Phone: Tobacco use status CP a) Yes [facility] Work Phone: Tobacco Screening. Yes [facility] Work Phone: XR [...] SunApr 24, 2022 12:19:58 PM EDT [facility] Comment on above: Order Comment: Injur [...] attacks; CATE = N; Verified Transmission to [facility]; Last Updated By: Cortez Klein; 03/31/2022 2:39:28 PM Health Maintenance Complete Blood Count + Differential; Status:Active; Requested for:31Mar2023; Perform:Lab Services - Lab To Draw (Blood Test); Due:29Jun2023;Ordered; For:Health Maintenance; Ordered By:Jordyn Ramirez; Comprehensive Metabolic Panel; Status:Active; Requested for:31Mar2023; Perform:Lab Services - Lab To Draw (Blood Test); Due:[id number];Ordered; For:Health Maintenance; Ordered By:Jordyn Ramirez; Hemoglobin A1C; Status:Active; Requested for:31Mar2023; Perform:Lab Services - Lab To Draw (Blood Test); Due:[id number];Ordered; For:Health Maintenance; Ordered By:Jordyn Ramirez; Lipid Panel; Status:Active; Requested for:31Mar2023; Perform:Lab Services - Lab To Draw (Blood Test); Due:[id number];Ordered; For:Health Maintenance; Ordered By:Jordyn Ramirez; TSH WITH REFLEX TO FREE T4 IF ABNORMAL; Status:Active; Requested for:[id number]; Perform:Lab Services - Lab To Draw (Blood Test); Due:55Dia8027;Ordered; For:Health Maintenance; Ordered By:Jordyn Ramirez; Patient Discussion/Summary [...] labs History of Present IllnessPresents today for [facility] LAB F/U AND MED CHECK. NO NEW [...] included)... Normal [facility] Complete Blood Count + Difflee ann shelby 03-10-2022 Basophils/100 WBC (Bld) 1.0 % 0.0 - 2.0 [facility] Work Phone: [phone] Erythrocyte distribution width (RBC) [Ratio] 12.2 % See Below [facility] Work Phone: Comment on above: Reference Range: 11. 5 - 14.5 Hematocrit (Bld) [Volume fraction] 44.2 % See Below [facility] Work Phone: Comment on above: Reference Range: 36. 0 - 46.0 Hemoglobin (Bld) [Mass/Vol] 15.1 g/dL See Below [facility] Work Phone: Comment on above: Reference Range: 12. 0 - 16.0 Lymphocytes/100 WBC (Bld) 26.6 % See Below [facility] Work Phone: Comment on above: Reference Range: 13. 0 - 44.0 MCHC (RBC) [Mass/Vol] 34.3 g/dL See Below [facility] Work Phone: [phone] Comment on above: Reference Range: 32. 0 - 36.0 MCV (RBC) [Entitic vol] 88 fL 80 - 100 [facility] Work Phone: [phone] Monocytes/100 WBC (Bld) 7.4 % 2.0 - 10.0 [facility] Work Phone: [phone] Neutrophils/100 WBC (Bld) 64.5 % See Below [facility] Work Phone: [phone] Comment on above: Reference Range: 40. 0 - 80.0 Platelets (Bld) [#/Vol] 275 10*3/uL 150 - 450 [facility] Work Phone: [phone] RBC (Bld) [#/Vol] 5.05 {x10E12/L} See Below [facility] Work Phone: [phone] Comment on above: Reference Range: 4.0 0 - 5.20 WBC (Bld) [#/Vol] 6.7 10*3/uL 4.4 - 11.3 [facility] Work Phone: [phone] Complete Blood Count + Differential 0.10 {x10E9/L} See Below [facility] Work Phone: Comment on above: Reference Range: 0.0 0 - 0.10 Complete Blood Count + Differential 0.00 {x10E9/L} See Below [facility] Work Phone: [phone] Comment on above: Reference Range: 0.0 0 - 0.70 Complete Blood Count + Differential 0.50 {x10E9/L} See Below [facility] Work Phone: Comment on above: Reference Range: 0.1 0 - 1.00 Complete Blood Count + Differential 1.80 {x10E9/L} See Below [facility] Work Phone: Comment on above: Reference Range: 1.2 0 - 4.80 Complete Blood Count + Differential 4.30 {x10E9/L} See Below [facility] Work Phone: Comment on above: Reference Range: 1.2 0 - 7.70 Percent differential counts (%) should be interpreted in the context of the absolute cell counts (cells/L). Complete Blood Count + Differential 0.5 % 0.0 - 6.0 [facility] Work Phone: Ferritin, Serumon 03-10-2022 Ferritin [Mass/Vol] 77 ug/L 8 - 150 [facility] Work Phone: Folate, Serumon 03-10-2022 Folate [Mass/Vol] 19.2 ng/mL >5.0 [facility] Work Phone: Comment on above: Low <3.4Borderline 3 .4-5.0Normal >5.0. Patients receiving more than 5 mg/day of biotin may have interference in test results. A sample should be taken no sooner than eight hours after previous dose. Contact the testing laboratory for additional information. Hemoglobin A1Con 03-10-2022 Glucose [Mass/Vol] 103 mg/dL [facility] Work Phone: HbA1c (Bld) [Mass fraction] 5.2 % [facility] Work Phone: Comment on above: Diagnosis of Diabete s-Adults Non-Diabetic: < or = 5.6% Increased risk for developing diabetes: 5.7-6.4% Diagnostic of diabetes: > or = 6.5%. Monitoring of Diabetes Age (y) Therapeutic Goal (%) Adults: >18 <7.0 Pediatrics: 13-18 <7.5 7-12 <8.0 0- 6 7.5-8.5 [place] [employer]. Diabetes Care 33(S1), Jul 2009. Laboratory - Chemistry and C hemistry - challengeon 03-10-2022 Albumin BCP dye [Mass/Vol] 4.9 g/dL 3.4 - 5.0 [facility] Work Phone: ALP [Catalytic activity/Vol] 42 U/L 33 - 110 [facility] Work Phone: ALT With P-5'-P [Catalytic activity/Vol] 9 U/L 7 - 45 [facility] Work Phone: [phone] Comment on above: Patients treated wit h Sulfasalazine may generate falsely decreased results for ALT. Anion gap [Moles/Vol] 13 mmol/L 10 - 20 [facility] Work Phone: [phone] AST With P-5'-P [Catalytic activity/Vol] 16 U/L 9 - 39 [facility] Work Phone: [phone] Bilirubin [Mass/Vol] 1.3 mg/dL above high threshold 0.0 - 1.2 [facility] Work Phone: [phone] Calcium [Mass/Vol] 9.5 mg/dL 8.6 - 10.3 [facility] Work Phone: [phone] Chloride [Moles/Vol] 106 mmol/L 98 - 107 [facility] Work Phone: [phone] CO2 [Moles/Vol] 25 mmol/L 21 - 32 [facility] Work Phone: [phone] Creatinine [Mass/Vol] 0.85 mg/dL See Below [facility] Work Phone: [phone] Comment on above: Reference Range: 0.5 0 - 1.05 Glucose [Mass/Vol] 87 mg/dL 74 - 99 [facility] Work Phone: [phone] Iron [Mass/Vol] 141 ug/dL 35 - 150 [facility] Work Phone: [phone] Iron binding capacity [Mass/Vol] 349 ug/dL 240 - 445 [facility] Work Phone: [phone] Potassium [Moles/Vol] 3.9 mmol/L 3.5 - 5.3 [facility] Work Phone: [phone] Protein [Mass/Vol] 7.5 g/dL 6.4 - 8.2 [facility] Work Phone: [phone] Sodium [Moles/Vol] 140 mmol/L 136 - 145 [facility] Work Phone: TSH Qn 0.93 m[IU]/L See Below [facility] Work Phone: Comment on above: Reference Range: 0.4 4 - 3.98 TSH testing is performed using different testing methodology at [facility] than at other [facility]. Direct result comparisons should only be made within the same method. Urea nitrogen [Mass/Vol] 15 mg/dL 6 - 23 [facility] Work Phone: Lipid Panelon 03-10-2022 Cholesterol [Mass/Vol] 143 mg/dL 0 - 199 [facility] Work Phone: Comment on above: . AGE [...] dosing. Cholesterol in HDL [Mass/Vol] 58.0 mg/dL [facility] Work Phone: Comment on above: . AGE VERY LOW LOW N ORMAL HIGH 0-19 Y < 35 < 40 40-45 ---- 20- 24 Y ---- < 40 >45 ---- >24 Y ---- < 40 40-60 >60. Cholesterol in LDL [Mass/Vol] 74 mg/dL 0 - 119 [facility] Work Phone: Comment on above: . NEAR BORD AGE DEE DEE RABLE OPTIMAL HIGH HIGH VERY HIGH 0-19 Y 0 - 109 --- 110-129 >/= 130 ---- 20-24 Y 0 - 119 --- 120-159 >/= 160 ---- >24 Y 0 - 99 100-129 130-159 160-189 >/=190. Cholesterol non HDL [Mass/Vol] 85 mg/dL 0 - 149 [facility] Work Phone: Comment on above: AGE DESIRABLE BORDER LINE HIGH HIGH VERY HIGH 0-19 Y 0 - 119 120 - 144 >/= 145 >/= 160 20-24 Y 0 - 149 150 - 189 >/= 190 ---- >24 Y 30 MG/DL ABOVE LDL CHOLESTEROL GOAL. Cholesterol.total/C holesterol in HDL [Mass ratio] 2.5 {ratio} [facility] Work Phone: Comment on above: REF VALUESDESIRABLE < 3.4HIGH RISK > 5.0 Triglyceride [Mass/Vol] 57 mg/dL 0 - 149 [facility] Work Phone: Comment on above: . AGE [...] Lipid Panel 11 mg/dL 0 - 40 [facility] Work Phone: No Panel Informationon 03-10 >90 >90 [facility] Work Phone: Comment on above: CALCULATIONS OF JOSE MATED GFR ARE PERFORMED USING THE 2020 CKD-EPI STUDY REFIT EQUATION WITHOUT THE RACE VARIABLE FOR THE IDMS-TRACEABLE CREATININE METHODS.https://jasn.asnjournals.org/content//ASN. 3045217969 40 % 25 - 45 [facility] Work Phone: Vitamin B12, Serumon 022 Cobalamin (Vitamin B12) [Mass/Vol] 215 pg/mL 211 - 911 [facility] Work Phone: Office Visit (Internal [...] attacks; CATE = N; Verified Transmission to [facility] 144zanda; Last Updated By: Crashmob; 03/03/2022 2:58:35 PM Start: PARoxetine HCl - 10 MG Oral Tablet (Paxil); TAKE 1 TABLET DAILY Rx By: Jordyn Ramirez; Dispense: 90 Days ; #:90 Tablet; Refill: 0;For: Generalized anxiety disorder with panic attacks; CATE = N; Verified Transmission to [facility] 144zanda; Last Updated By: Crashmob; 03/03/2022 2:58:27 PM GERD (gastroesophageal reflux disease) Renew: Omeprazole 20 MG Oral Capsule Delayed Release; TAKE 1 CAPSULE Daily Rx By: Jordyn Ramirez; Dispense: 90 Days ; #:90 Capsule; Refill: 3;For: GERD (gastroesophageal reflux disease); CATE = N; [facility]; Last Updated By: Cortez Klein; 03/03/2022 2:59:29 PM Patient Discussion/Summary 1 MONTH [...] AND MEDICATIONS (more content not included)... Normal [facility] Tobacco Screening.on 022 Adult depression screening assessment No [facility] Work Phone: Fall risk assessment a) No falls within the last year [facility] Work Phone: Tobacco use status CPHS a) Yes [facility] Work Phone: Tobacco Screening. Yes [facility] Work Phone: C. trachomatis/GC PCR Panel on [facility] 10-26-2021 C. trachomatis/GC PCR Panel on [facility] Reason for preventing automatic release->Other Is this specimen being sent to an external lab?->No Release to patient->Manual release only [id number]&Urine-First Void^^^Urine&Urine C. trachomatis PCR on [facility]: NEGATIVE-Chlamydia [...] with other laboratory and clinical data. Normal [facility] Comment on above: Performed By: #### C [facility] ####[facility] of [address] [phone] Progress Noteon 10-26-2021 [employer] Authentication Interface Message Text Patient ID: Luz [...] once for 1 dose - nystatin (MYCOSTATIN) [id number] UNIT/GM OINT ointment; Apply to affected area [...] Blood, Urine Negative Negative POCT Urine Specific [place] 1.015 1.005 - 1.030 POCT Ketones, Urine Negative Negative mg/dl POCT Glucose, Urine Negative Negative mg/dl Normal [facility] Urine Cultureon 10-26-2021 Bacteria identified Cx Nom (U) Is this specimen being sent to an external lab?->No Release to patient->Automatic [id number]&Urine-CCMS^^^Urine& Urine Urine Culture: Enterococcus sp. Source: [facility] Collected: 10/26/21 17:15 Site: Urine Received : 10/26/21 21:53 Urine Culture FINAL 10/28/21 09:26 10,000 - 50,000 CFU/ml of Normal Skin/urogenital ivy present <10,000 CFU/ml Enterococcus sp. If further work-up is needed, providers should call the Microbiology lab within 3 days. Normal [facility] Comment on above: Performed By: #### U RINE ####[facility] of [address] [phone] SARS-CoV-2 (COVID-19) RT-PCR on 08-04-2021 SARS-CoV-2 (COVID-19) RNA GIOVANNI+probe Ql (Unsp spec) Positive Abnormal [facility] Comment on above: Order Comment: Is th is a pre-procedure screening test?->NoIs this specimen being sent to an external lab?->[id number]&Nasopharyngeal swab^\S\^Nose&Nose Result Comment: POSI TIVE: SARS-CoV-2 RNA [...] Chris SARS-CoV-2 assay on the [employer] System. - Comment: This test has received FDA Emergency Use Authorization (EUA) and has been verified by [facility]. 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 No Normal [facility] Comment on above: Order Comment: Is th is a pre-procedure screening test?->NoIs this specimen being sent to an external lab?->[id number]&Nasopharyngeal swab^\S\^Nose&Nose Performed By: #### C OVID ####[place] [phone] Hospitalized? No Normal [facility] Comment on above: Order Comment: Is th is a pre-procedure screening test?->NoIs this specimen being sent to an external lab?->[id number]&Nasopharyngeal swab^\S\^Nose&Nose Performed By: #### C OVID ####[place] [phone] ICU? No Normal [facility] Comment on above: Order Comment: Is th is a pre-procedure screening test?->NoIs this specimen being sent to an external lab?->[id number]&Nasopharyngeal swab^\S\^Nose&Nose Performed By: #### C OVID ####[address] [phone] ? Unknown Normal [facility] Comment on above: Order Comment: Is th is a pre-procedure screening test?->NoIs this specimen being sent to an external lab?->[id number]&Nasopharyngeal swab^\S\^Nose&Nose Performed By: #### C OVID ####[address] [phone] Resident in congrega care setting? No Normal [facility] Comment on above: Order Comment: Is th is a pre-procedure screening test?->NoIs this specimen being sent to an external lab?->[id number]&Nasopharyngeal swab^\S\^Nose&Nose Performed By: #### C OVID ####[place] [phone] SARS-CoV-2 (COVID-19) RNA GIOVANNI+probe Ql (Unsp spec) No Normal [facility] Comment on above: Order Comment: Is th is a pre-procedure screening test?->NoIs this specimen being sent to an external lab?->[id number]&Nasopharyngeal swab^\S\^Nose&Nose Performed By: #### C OVID ####[place] [phone] Symptomatic as defined by CDC? 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 Cognition are normal. Normal [facility] C-Reactive Proteinon 021 C-Reactive Protein 0.5 mg/dL Normal 0.0-1.0 [facility] Comment on above: Order Comment: With differential. Is this specimen being sent to an external lab?->No Release to patient->Automatic [id number]&Blood^\S\^Venous&Venous TIBC will not be run. Is this specimen being sent to an external lab?->No Release to patient->Automatic 01679&Blood^\S\^Venous&Venous Result Comment: CRP determinations in neonates should be interpreted with caution. CRP may be elevated in circumstances not associated with inflammation (e.g. difficult delivery, pneumothorax). In premature neonates CRP levels may not rise to abnormal levels even if sepsis is present; some speculate that immature liver function decreases the ability to generate a CRP response. Performed By: #### C RP #### [place] [address] Comp Metabolic Panelon 06-23 Albumin [Mass/Vol] 4.6 g/dL Normal 3.5-5.0 [facility] Comment on above: Order Comment: With differential. Is this specimen being sent to an external lab?->No Release to patient->Automatic 30833&Blood^\S\^Venous&Venous TIBC will not be run. Is this specimen being sent to an external lab?->No Release to patient->Automatic 58179&Blood^\S\^Venous&Venous Performed By: #### C MP #### [address] [id number] ALP [Catalytic activity/Vol] 42 U/L Normal 35-104 [facility] Comment on above: Order Comment: With differential. Is this specimen being sent to an external lab?->No Release to patient->Automatic 83782&Blood^\S\^Venous&Venous TIBC will not be run. Is this specimen being sent to an external lab?->No Release to patient->Automatic 48880&Blood^\S\^Venous&Venous Performed By: #### C MP #### [address] [address] ALT [Catalytic activity/Vol] 13 U/L Normal 0-31 [facility] Comment on above: Order Comment: With differential. Is this specimen being sent to an external lab?->No Release to patient->Automatic 84025&Blood^\S\^Venous&Venous TIBC will not be run. Is this specimen being sent to an external lab?->No Release to patient->Automatic 04490&Blood^\S\^Venous&Venous Performed By: #### C MP #### [place] [address] AST [Catalytic activity/Vol] 19 U/L Normal 0-31 [facility] Comment on above: Order Comment: With differential. Is this specimen being sent to an external lab?->No Release to patient->Automatic 70265&Blood^\S\^Venous&Venous TIBC will not be run. Is this specimen being sent to an external lab?->No Release to patient->Automatic 51084&Blood^\S\^Venous&Venous Performed By: #### C MP #### [place] [address] Bili,Total 0.7 mg/dl Normal 0.0-1.0 [facility] Comment on above: Order Comment: With differential. Is this specimen being sent to an external lab?->No Release to patient->Automatic 23505&Blood^\S\^Venous&Venous TIBC will not be run. Is this specimen being sent to an external lab?->No Release to patient->Automatic 01552&Blood^\S\^Venous&Venous Performed By: #### C MP #### [place] [id number] Calcium [Mass/Vol] 9.7 mg/dL Normal 7.6-11.0 [facility] Comment on above: Order Comment: With differential. Is this specimen being sent to an external lab?->No Release to patient->Automatic 25045&Blood^\S\^Venous&Venous TIBC will not be run. Is this specimen being sent to an external lab?->No Release to patient->Automatic 69485&Blood^\S\^Venous&Venous Performed By: #### C MP #### [place] [address] Chloride [Moles/Vol] 102 mmol/L Normal 96-108 [facility] Comment on above: Order Comment: With differential. Is this specimen being sent to an external lab?->No Release to patient->Automatic 59345&Blood^\S\^Venous&Venous TIBC will not be run. Is this specimen being sent to an external lab?->No Release to patient->Automatic 44866&Blood^\S\^Venous&Venous Performed By: #### C MP #### [place] [address] CO2 [Moles/Vol] 24.4 mmol/L Normal 22.0-29.0 [facility] Comment on above: Order Comment: With differential. Is this specimen being sent to an external lab?->No Release to patient->Automatic 38092&Blood^\S\^Venous&Venous TIBC will not be run. Is this specimen being sent to an external lab?->No Release to patient->Automatic 11237&Blood^\S\^Venous&Venous Performed By: #### C MP #### [place] [address] Creatinine [Mass/Vol] 0.74 mg/dL Normal 0.50-1.00 [facility] Comment on above: Order Comment: With differential. Is this specimen being sent to an external lab?->No Release to patient->Automatic 58385&Blood^\S\^Venous&Venous TIBC will not be run. Is this specimen being sent to an external lab?->No Release to patient->Automatic 80942&Blood^\S\^Venous&Venous Result Comment: Premature 0.3-1.0 mg/dL Performed By: #### C MP #### [place] [address] Glucose [Mass/Vol] 68 mg/dL Low 70-99 [facility] Comment on above: Order Comment: With differential. Is this specimen being sent to an external lab?->No Release to patient->Automatic 46672&Blood^\S\^Venous&Venous TIBC will not be run. Is this specimen being sent to an external lab?->No Release to patient->Automatic 60959&Blood^\S\^Venous&Venous Result Comment: Criteria for Diagnosis of Diabetes(Effective 12/26/10): Fasting specimen (no caloric intake for at least 8 hours). <100 mg/dl Normal 100-125 mg/dl Increased Risk for Diabetes >125 mg/dl Diagnostic for Diabetes Random Glucose (any time of day without regard to last meal). >=200 mg/dl plus Classic Symptoms of Diabetes Performed By: #### C MP #### [place] [address] Potassium [Moles/Vol] 4.8 mmol/L Normal 3.3-5.1 [facility] Comment on above: Order Comment: With differential. Is this specimen being sent to an external lab?->No Release to patient->Automatic 70478&Blood^\S\^Venous&Venous TIBC will not be run. Is this specimen being sent to an external lab?->No Release to patient->Automatic 85108&Blood^\S\^Venous&Venous Performed By: #### C MP #### [place] [address] Protein [Mass/Vol] 7.6 g/dL Normal 5.9-8.4 [facility] Comment on above: Order Comment: With differential. Is this specimen being sent to an external lab?->No Release to patient->Automatic 18506&Blood^\S\^Venous&Venous TIBC will not be run. Is this specimen being sent to an external lab?->No Release to patient->Automatic 98761&Blood^\S\^Venous&Venous Performed By: #### C MP #### [place] [address] Sodium [Moles/Vol] 139 mmol/L Normal 133-145 [facility] Comment on above: Order Comment: With differential. Is this specimen being sent to an external lab?->No Release to patient->Automatic 97662&Blood^\S\^Venous&Venous TIBC will not be run. Is this specimen being sent to an external lab?->No Release to patient->Automatic 77169&Blood^\S\^Venous&Venous Performed By: #### C MP #### [place] [address] Urea nitrogen [Mass/Vol] 16 mg/dL Normal 4-19 [facility] Comment on above: Order Comment: With differential. Is this specimen being sent to an external lab?->No Release to patient->Automatic 45530&Blood^\S\^Venous&Venous TIBC will not be run. Is this specimen being sent to an external lab?->No Release to patient->Automatic 67584&Blood^\S\^Venous&Venous Performed By: #### C MP #### [place] [address] Complete Blood Counton 06-23 Differential Complete Automated Normal [facility] Comment on above: Order Comment: With differential. Is this specimen being sent to an external lab?->No Release to patient->Automatic 67748&Blood^\S\^Venous&Venous TIBC will not be run. Is this specimen being sent to an external lab?->No Release to patient->Automatic 37694&Blood^\S\^Venous&Venous Performed By: #### C BC #### [place] [address] Basophils/100 WBC (Bld) 0.60 % Normal 0.00-1.00 [facility] Comment on above: Order Comment: With differential. Is this specimen being sent to an external lab?->No Release to patient->Automatic 61407&Blood^\S\^Venous&Venous TIBC will not be run. Is this specimen being sent to an external lab?->No Release to patient->Automatic 87283&Blood^\S\^Venous&Venous Performed By: #### C BC #### [place] [address] Eosinophils/100 WBC (Bld) 1.40 % Normal 0.00-3.00 [facility] Comment on above: Order Comment: With differential. Is this specimen being sent to an external lab?->No Release to patient->Automatic 05561&Blood^\S\^Venous&Venous TIBC will not be run. Is this specimen being sent to an external lab?->No Release to patient->Automatic 33259&Blood^\S\^Venous&Venous Performed By: #### C BC #### [place] [address] Erythrocyte distribution width (RBC) [Ratio] 11.5 % Normal 0.0-14.4 [facility] Comment on above: Order Comment: With differential. Is this specimen being sent to an external lab?->No Release to patient->Automatic 65069&Blood^\S\^Venous&Venous TIBC will not be run. Is this specimen being sent to an external lab?->No Release to patient->Automatic 71625&Blood^\S\^Venous&Venous Performed By: #### C BC #### [place] [address] Hematocrit (Bld) [Volume fraction] 42.3 % Normal 36.0-44.0 [facility] Comment on above: Order Comment: With differential. Is this specimen being sent to an external lab?->No Release to patient->Automatic 73880&Blood^\S\^Venous&Venous TIBC will not be run. Is this specimen being sent to an external lab?->No Release to patient->Automatic 85526&Blood^\S\^Venous&Venous Performed By: #### C BC #### [place] [address] Hemoglobin (Bld) [Mass/Vol] 14.7 g/dL Normal 12.0-15.0 [facility] Comment on above: Order Comment: With differential. Is this specimen being sent to an external lab?->No Release to patient->Automatic 91490&Blood^\S\^Venous&Venous TIBC will not be run. Is this specimen being sent to an external lab?->No Release to patient->Automatic 69876&Blood^\S\^Venous&Venous Performed By: #### C BC #### [place] [address] Immature granulocytes/100 WBC (Bld) 0.20 % Normal [facility] Comment on above: Order Comment: With differential. Is this specimen being sent to an external lab?->No Release to patient->Automatic 47336&Blood^\S\^Venous&Venous TIBC will not be run. Is this specimen being sent to an external lab?->No Release to patient->Automatic 29576&Blood^\S\^Venous&Venous Result Comment: Tammie ture Granulocyte Percent includes promyelocytes, myelocytes, and metamyelocytes. IG% > 1.0 indicates a left shift is present. With automated differentials, bands are included in the neutrophil count and not in the Immature Granulocyte Percent. Performed By: #### C BC #### [place] [address] Lymphocytes/100 WBC (Bld) 30.5 % Normal 24.0-44.0 [facility] Comment on above: Order Comment: With differential. Is this specimen being sent to an external lab?->No Release to patient->Automatic 85281&Blood^\S\^Venous&Venous TIBC will not be run. Is this specimen being sent to an external lab?->No Release to patient->Automatic 58882&Blood^\S\^Venous&Venous Performed By: #### C BC #### [place] [address] MCH (RBC) [Entitic mass] 30.0 pg Normal 26.0-34.0 [facility] Comment on above: Order Comment: With differential. Is this specimen being sent to an external lab?->No Release to patient->Automatic 66314&Blood^\S\^Venous&Venous TIBC will not be run. Is this specimen being sent to an external lab?->No Release to patient->Automatic 15733&Blood^\S\^Venous&Venous Performed By: #### C BC #### [facility] [address] [place] [id number] MCHC 34.8 % Normal 31.0-37.0 [facility] Comment on above: Order Comment: With differential. Is this specimen being sent to an external lab?->No Release to patient->Automatic 66970&Blood^\S\^Venous&Venous TIBC will not be run. Is this specimen being sent to an external lab?->No Release to patient->Automatic 86135&Blood^\S\^Venous&Venous Performed By: #### C BC #### [facility] [address] [place] [address] MCV (RBC) [Entitic vol] 86.3 fL Normal 80.0-100.0 [facility] Comment on above: Order Comment: With differential. Is this specimen being sent to an external lab?->No Release to patient->Automatic 28840&Blood^\S\^Venous&Venous TIBC will not be run. Is this specimen being sent to an external lab?->No Release to patient->Automatic 94071&Blood^\S\^Venous&Venous Performed By: #### C BC #### [facility] [address] [place] [id number] Monocytes/100 WBC (Bld) 8.70 % High 3.00-6.00 [facility] Comment on above: Order Comment: With differential. Is this specimen being sent to an external lab?->No Release to patient->Automatic 24175&Blood^\S\^Venous&Venous TIBC will not be run. Is this specimen being sent to an external lab?->No Release to patient->Automatic 64545&Blood^\S\^Venous&Venous Performed By: #### C BC #### [place] [address] Neutrophils (Bld) [#/Vol] 5.2 10*3/uL Normal 2.0-7.2 [facility] Comment on above: Order Comment: With differential. Is this specimen being sent to an external lab?->No Release to patient->Automatic 21511&Blood^\S\^Venous&Venous TIBC will not be run. Is this specimen being sent to an external lab?->No Release to patient->Automatic 35150&Blood^\S\^Venous&Venous Performed By: #### C BC #### [place] [address] Neutrophils/100 WBC (Bld) 58.6 % Normal 35.0-66.0 [facility] Comment on above: Order Comment: With differential. Is this specimen being sent to an external lab?->No Release to patient->Automatic 08564&Blood^\S\^Venous&Venous TIBC will not be run. Is this specimen being sent to an external lab?->No Release to patient->Automatic 96626&Blood^\S\^Venous&Venous Performed By: #### C BC #### [place] [address] Nucleated RBC/100 WBC (Bld) [Ratio] 0.0 % Normal -1.0-0.0 [facility] Comment on above: Order Comment: With differential. Is this specimen being sent to an external lab?->No Release to patient->Automatic 75267&Blood^\S\^Venous&Venous TIBC will not be run. Is this specimen being sent to an external lab?->No Release to patient->Automatic 46455&Blood^\S\^Venous&Venous Performed By: #### C BC #### [place] [address] Platelet mean volume (Bld) [Entitic vol] 10.7 fL Normal [facility] Comment on above: Order Comment: With differential. Is this specimen being sent to an external lab?->No Release to patient->Automatic 81552&Blood^\S\^Venous&Venous TIBC will not be run. Is this specimen being sent to an external lab?->No Release to patient->Automatic 05496&Blood^\S\^Venous&Venous Result Comment: MPV is platelet range and age dependent Performed By: #### C BC #### [address] [id number] Platelets (Bld) [#/Vol] 285 10*3/uL Normal 150-450 [facility] Comment on above: Order Comment: With differential. Is this specimen being sent to an external lab?->No Release to patient->Automatic 87762&Blood^\S\^Venous&Venous TIBC will not be run. Is this specimen being sent to an external lab?->No Release to patient->Automatic 15412&Blood^\S\^Venous&Venous Performed By: #### C BC #### [address] [address] RBC 4.90 10E12/L Normal 4.00-4.90 [facility] Comment on above: Order Comment: With differential. Is this specimen being sent to an external lab?->No Release to patient->Automatic 12535&Blood^\S\^Venous&Venous TIBC will not be run. Is this specimen being sent to an external lab?->No Release to patient->Automatic 15548&Blood^\S\^Venous&Venous Performed By: #### C BC #### [address] [id number] WBC (Bld) [#/Vol] 8.8 10*3/uL Normal 4.5-11.0 [facility] Comment on above: Order Comment: With differential. Is this specimen being sent to an external lab?->No Release to patient->Automatic 67534&Blood^\S\^Venous&Venous TIBC will not be run. Is this specimen being sent to an external lab?->No Release to patient->Automatic 70563&Blood^\S\^Venous&Venous Performed By: #### C BC #### [address] [id number] Ferritinon 06-23-2021 Ferritin [Mass/Vol] 44 ng/mL Normal 10-291 [facility] Comment on above: Order Comment: With differential. Is this specimen being sent to an external lab?->No Release to patient->Automatic 60166&Blood^\S\^Venous&Venous TIBC will not be run. Is this specimen being sent to an external lab?->No Release to patient->Automatic 20191&Blood^\S\^Venous&Venous Performed By: #### F ERTN #### [address] [address] TSH with reflex T4FRon 06-23 TSH with reflex T4FR 2.171 uIU/mL Normal 0.350-5.500 [facility] Comment on above: Order Comment: With differential. Is this specimen being sent to an external lab?->No Release to patient->Automatic 98080&Blood^\S\^Venous&Venous TIBC will not be run. Is this specimen being sent to an external lab?->No Release to patient->Automatic 21878&Blood^\S\^Venous&Venous Performed By: #### T SHR #### [place] [address] Vitamin D 25 OHon 06-23-2021 25 OH Vitamin D 37 ng/mL Normal 30-100 [facility] Comment on above: Order Comment: With differential. Is this specimen being sent to an external lab?->No Release to patient->Automatic 79370&Blood^\S\^Venous&Venous TIBC will not be run. Is this specimen being sent to an external lab?->No Release to patient->Automatic 27302&Blood^\S\^Venous&Venous Result Comment: Refe rence ranges provided by [facility] are based on Endocrine Society Guidelines: Level Characterization <21 ng/mL Vitamin D deficiency 21-29 ng/mL Suboptimal Vitamin D status 30-100 ng/mL Optimal Vitamin D status >100 ng/mL Potentially toxic Vitamin D effects NOTE: New Reference Ranges effective 18 Performed By: #### V 25DH #### [facility] [place] [id number] Progress Noteon 06-22-2021 Railroad Mechanic Authentication Interface Message Text Patient ID: Luz [...] Line *Present Clear Background *Present Lot Number [id number] POCT urinalysis dipstick Collection Time: 06/22/21 5:51 PM Result Value Ref Range POCT, Leukocytes, Urine Negative Negative POCT Nitrite, Urine Negative Negative POCT Protein, Urine Trace Negative - Trace mg/dl POCT Urine pH 6.0 5.0 - 8.0 pH POCT Blood, Urine Negative Negative POCT Urine Specific N[place]au 1.030 1.005 - 1.030 POCT Ketones, Urine Negative Negative mg/dl POCT Glucose, Urine Negative Negative mg/dl Normal [facility] Progress Noteon 02-15-2021 Railroad Mechanic Authentication Interface Message Text Patient ID: Luz [...] Line *Present Clear Background *Present Lot Number [id number] Normal [facility] Strep Cultureon 02-15-2021 Strep Culture Is this specimen javier ng sent to an external lab?->No Release to patient->Automatic 55770&Throat swab^^^Throat swab&Throat swab Strep Culture: No Beta hemolytic Streptococci isolated. Source: THRSW Collected: 02/15/21 13:17 Site: Throat swab Received : 02/15/21 20:06 Strep Culture FINAL 02/17/21 07:53 No Beta hemolytic Streptococci isolated. Normal [facility] Comment on above: Performed By: #### S TREP #### [facility] [place] [id number] Progress Noteon 12-14-2020 Railroad Mechanic Authentication Interface Message Text Patient ID: Luz [...] She exh (more content not included)... Normal [facility] Railroad [employer] Authentication Interface Message Text Luz Hinojosa is [...] high (like other illegal drugs, prescription or xifp-ehn-rzbqvhq medications, and things that you sniff, marte, or vape)? Put 0 if none.: 0 4. Use any tobacco or nicotine products (for example, cigarettes, e-cigarettes, hookahs or smokeless tobacco)?: 0 5. Have you ever ridden in a CAR driven by someone (including yourself) who was high or had been using alcohol or drugs?: No Electronically signed by: MYKE Rahman Normal [facility] EMERGENCY REPORTon 9 EMERGENCY REPORT [facility] EMERGENCY ROOM REPORT NAME ACCOUNT SEX AGE ADMIT DISCHARGE PT MED. RECORD# NUMBER DATE DATE TYPE SAHISH, [id number] F 18 04/01/19 04/01/19 3 LUZ Alves [id number] ROOM: ER DATE OF : 2000 DICTATING [...] Pharynx is symmetric without any RPA, PPA, TAXATION AGENT. There is no significant dental problems. She [...] ambulatory from the emergency room. Follow up [facility]. Return p.r.n. as necessary. In general she appears to be nontoxic and she is pleasant Page 1 of 2 LUZ HINOJOSA Emergency Room Report and alert and oriented. DIAGNOSIS: Upper respiratory infection, sinus congestion and left otitis media. Dictated By: Sherri Lisa DO 04/02/19 04:52 JOB #: [id number] Transcribed By: yesenia 04/02/19 06:23 Electronically signed by: E-SIGN SHERRI LISA DO 04/07/19 21:31 Page 2 of 2 LUZ HINOJOSA Emergency Room Report Normal [facility] XR Chest 2 Viewson 8 XR Chest 2 Views Exam Date/Time: 04/01/2018 23:14 EDT Reason for Exam: Cough Report STUDY: XR Chest 2 Views; 04/01/2018 11:14 pm INDICATION: Cough. COMPARISON: 09/12/2017 ACCESSION NUMBER(S): [id number] ORDERING CLINICIAN: Shreri Payton FINDINGS: CARDIOMEDIASTINAL SILHOUETTE: Cardiomediastinal silhouette is normal in size and configuration. LUNGS: No focal consolidation, effusion, edema, or pneumothorax. ABDOMEN: No remarkable upper abdominal findings. BONES: No acute osseous changes. IMPRESSION: 1. No evidence of acute cardiopulmonary process. FINAL REPORT Dictated: 04/02/2018 0:02 am Rene Toth MD Signed (Electronic Signature): 04/02/2018 0:02 am Signed by: Rene Toth MD Technologist: [facility] Vital Signs Date Time Vital Sign Value Performing Clinician Facility 05-06-2024 14:58-0400 Body height 165.1 cm Jordyn Thakur APRN-KARLENE Work Phone: [facility] 05-06-2024 14:58-0400 Body mass index (BMI) [Ratio] 19.8 kg/m2 Jordyn Thakur APRN-AIRWORTHINESS SAFETY INSPECTOR Work Phone: [facility] 05-06-2024 14:58-0400 Body weight 53.98 kg Jordyn Thakur APRN-KARLENE Work Phone: [facility] 08-21-2023 14:36-0500 Body height 165.1 cm Anika Richardson MD Work Phone: [facility] 08-21-2023 14:36-0500 Body mass index (BMI) [Ratio] 19.87 kg/m2 Anika Richardson MD Work Phone: [facility] 08-21-2023 14:36-0500 Body weight 54.16 kg Anika Richardson MD Work Phone: [facility] 08-21-2023 14:36-0500 Diastolic blood pressure 70 mm[Hg] Anika Richardson MD Work Phone: [facility] 08-21-2023 14:36-0500 Systolic blood pressure 116 mm[Hg] Anika Richardson MD Work Phone: [facility] 06-19-2023 17:27-0500 SaO2% (BldA) [Mass fraction] 98 % Jordyn Thakur INSPECTOR FINISHING-AIRWORTHINESS SAFETY INSPECTOR Work Phone: [facility] 06-19-2023 17:22-0500 Body height 165.1 cm Jordyn Thakur INSPECTOR FINISHING-AIRWORTHINESS SAFETY INSPECTOR Work Phone: [facility] 06-19-2023 17:22-0500 Body mass index (BMI) [Ratio] 19.64 kg/m2 Jordyn Thakur INSPECTOR FINISHING-AIRWORTHINESS SAFETY INSPECTOR Work Phone: [facility] 06-19-2023 17:22-0500 Body temperature 98.2 [degF] Jordyn Thakur INSPECTOR FINISHING-AIRWORTHINESS SAFETY INSPECTOR Work Phone: [facility] 06-19-2023 17:22-0500 Body weight 53.52 kg Jordyn Thakur INSPECTOR FINISHING-AIRWORTHINESS SAFETY INSPECTOR Work Phone: [facility] 06-19-2023 17:22-0500 Diastolic blood pressure 81 mm[Hg] Jordyn Thakur INSPECTOR FINISHING-AIRWORTHINESS SAFETY INSPECTOR Work Phone: [facility] 06-19-2023 17:22-0500 Heart rate 98 /min Jordyn Thakur INSPECTOR FINISHING-AIRWORTHINESS SAFETY INSPECTOR Work Phone: [facility] 06-19-2023 17:22-0500 Respiratory rate 16 /min Jordyn Thakur INSPECTOR FINISHING-AIRWORTHINESS SAFETY INSPECTOR Work Phone: [facility] 06-19-2023 17:22-0500 Systolic blood pressure 124 mm[Hg] Jordyn Thakur INSPECTOR FINISHING-AIRWORTHINESS SAFETY INSPECTOR Work Phone: [facility] 05-18-2023 10:33-0400 Body height 165.1 cm Jordyn Thakur INSPECTOR FINISHING-AIRWORTHINESS SAFETY INSPECTOR Work Phone: [facility] 05-18-2023 10:33-0400 Body mass index (BMI) [Ratio] 19.64 kg/m2 Jordyn Thakur INSPECTOR FINISHING-AIRWORTHINESS SAFETY INSPECTOR Work Phone: [facility] 05-18-2023 10:33-0400 Body weight 53.52 kg Jordyn Thakur INSPECTOR FINISHING-AIRWORTHINESS SAFETY INSPECTOR Work Phone: [facility] 05-18-2023 10:33-0400 Diastolic blood pressure 74 mm[Hg] Jordyn Thakur INSPECTOR FINISHING-AIRWORTHINESS SAFETY INSPECTOR Work Phone: [facility] 05-18-2023 10:33-0400 Heart rate 98 /min Jordyn Thakur INSPECTOR FINISHING-AIRWORTHINESS SAFETY INSPECTOR Work Phone: [facility] 05-18-2023 10:33-0400 SaO2% (BldA) [Mass fraction] 99 % Jordyn Thakur INSPECTOR FINISHING-AIRWORTHINESS SAFETY INSPECTOR Work Phone: [facility] 05-18-2023 10:33-0400 Systolic blood pressure 107 mm[Hg] Jordyn Thakur INSPECTOR FINISHING-AIRWORTHINESS SAFETY INSPECTOR Work Phone: [facility] 04-23-2023 09:48-0400 Body height 165.1 cm Kemi Echevarria MD Work Phone: [facility] 04-23-2023 09:48-0400 Body mass index (BMI) [Ratio] 19.64 kg/m2 Kemi Echevarria MD Work Phone: [facility] 04-23-2023 09:48-0400 Body weight 53.52 kg Kemi Echevarria MD Work Phone: [facility] 04-23-2023 09:48-0400 Diastolic blood pressure 60 mm[Hg] Kemi Echevarria MD Work Phone: [facility] 04-23-2023 09:48-0400 Heart rate 125 /min Kemi Echevarria MD Work Phone: [facility] 04-23-2023 09:48-0400 SaO2% (BldA) [Mass fraction] 99 % Kemi Echevarria MD Work Phone: [facility] 04-23-2023 09:48-0400 Systolic blood pressure 120 mm[Hg] Kemi Echevarria MD Work Phone: [facility] 04-13-2023 17:00-0400 Diastolic blood pressure 88 mm[Hg] Page Josy Other Phone: [facility] 04-13-2023 17:00-0400 Heart rate 83 /min Page Josy Other Phone: [facility] 04-13-2023 17:00-0400 Respiratory rate 18 /min Page Josy Other Phone: [facility] 04-13-2023 17:00-0400 SaO2% (BldA) [Mass fraction] 100 % Page Josy Other Phone: [facility] 04-13-2023 17:00-0400 Systolic blood pressure 128 mm[Hg] Page Josy Other Phone: [facility] 04-13-2023 15:13-0400 Body temperature 98.06 [degF] Page Josy Other Phone: [facility] 04-13-2023 15:13-0400 Body weight 55 kg Page Josy Other Phone: [facility] 04-11-2023 10:00-0400 Body temperature 97.88 [degF] Page Josy Other Phone: [facility] 04-11-2023 10:00-0400 Diastolic blood pressure 84 mm[Hg] Page Josy Other Phone: [facility] 04-11-2023 10:00-0400 Heart rate 81 /min Page Josy Other Phone: [facility] 04-11-2023 10:00-0400 Respiratory rate 17 /min Page Josy Other Phone: [facility] 04-11-2023 10:00-0400 SaO2% (BldA) [Mass fraction] 99 % Page Josy Other Phone: [facility] 04-11-2023 10:00-0400 Systolic blood pressure 122 mm[Hg] Page Josy Other Phone: [facility] 11-06-2022 20:48-0400 Body height 165.1 cm Page Josy Other Phone: [facility] 11-06-2022 20:48-0400 Body temperature 97.7 [degF] Page Josy Other Phone: [facility] 11-06-2022 20:48-0400 Body weight 54.5 kg Page Josy Other Phone: [facility] 11-06-2022 20:48-0400 Diastolic blood pressure 79 mm[Hg] Page Josy Other Phone: [facility] 11-06-2022 20:48-0400 Heart rate 92 /min Page Josy Other Phone: [facility] 11-06-2022 20:48-0400 Respiratory rate 18 /min Page Josy Other Phone: [facility] 11-06-2022 20:48-0400 SaO2% (BldA) [Mass fraction] 97 % Page Josy Other Phone: [facility] 11-06-2022 20:48-0400 Systolic blood pressure 133 mm[Hg] Page Josy Other Phone: [facility] 08-24-2022 18:30-0500 Diastolic blood pressure 105 mm[Hg] Page Josy Other Phone: [facility] 08-24-2022 18:30-0500 Heart rate 88 /min Page Josy Other Phone: [facility] 08-24-2022 18:30-0500 Respiratory rate 15 /min Page Josy Other Phone: [facility] 08-24-2022 18:30-0500 SaO2% (BldA) [Mass fraction] 100 % Page Josy Other Phone: [facility] 08-24-2022 18:30-0500 Systolic blood pressure 129 mm[Hg] Page Josy Other Phone: [facility] 08-24-2022 16:15-0500 Body height 165.1 cm Page Josy Other Phone: [facility] 08-24-2022 16:15-0500 Body temperature 97.7 [degF] Page Josy Other Phone: [facility] 08-24-2022 16:15-0500 Body weight 54.5 kg Page Josy Other Phone: [facility] 08-03-2022 11:02-0500 Body height 165.1 cm Jordyn Thakur Work Phone: [facility] Work Phone: 08-03-2022 11:02-0500 Body mass index (BMI) [Ratio] 21.2 kg/m2 Jordyn Jason Thakur Work Phone: [facility] Work Phone: 08-03-2022 11:02-0500 Body surface area Derived from formula 1.63 m2 Jordyn D Thakur Work Phone: [facility] Work Phone: 08-03-2022 11:02-0500 Body weight 57.78 kg Jordyn D Thakur Work Phone: [facility] Work Phone: 08-03-2022 11:02-0500 Diastolic blood pressure 74 mm[Hg] Jordyn Jason Thakur Work Phone: [facility] Work Phone: 08-03-2022 11:02-0500 Heart rate 88 /min Jordyn Jason Thakur Work Phone: [facility] Work Phone: 08-03-2022 11:02-0500 Systolic blood pressure 116 mm[Hg] Jordyn Jason Thakur Work Phone: [facility] Work Phone: 06-14-2022 15:28-0500 Body height 165.1 cm Jordyn Jason Thakur Work Phone: [facility] Work Phone: 06-14-2022 15:28-0500 Body mass index (BMI) [Ratio] 19.64 kg/m2 Jordyn D Thakur Work Phone: [facility] Work Phone: 06-14-2022 15:28-0500 Body surface area Derived from formula 1.58 m2 Jordyn D Thakur Work Phone: [facility] Work Phone: 06-14-2022 15:28-0500 Body weight 53.52 kg Jordyn D Thakur Work Phone: [facility] Work Phone: 06-14-2022 15:28-0500 Diastolic blood pressure 82 mm[Hg] Jordyn Jason GonzalezThakur Work Phone: [facility] Work Phone: 06-14-2022 15:28-0500 Heart rate 101 /min Jordyn Jason GonzalezThakur Work Phone: [facility] Work Phone: 06-14-2022 15:28-0500 Systolic blood pressure 118 mm[Hg] Jordyn Jason GonzalezThakur Work Phone: [facility] Work Phone: 06-06-2022 14:14-0500 Body height 165.1 cm Jordyn Jason Ramirez Work Phone: [facility] Work Phone: 06-06-2022 14:14-0500 Body mass index (BMI) [Ratio] 19.64 kg/m2 Jordyn D Ramirez Work Phone: [facility] Work Phone: 06-06-2022 14:14-0500 Body surface area Derived from formula 1.58 m2 Jordyn D Ramirez Work Phone: [facility] Work Phone: 06-06-2022 14:14-0500 Body weight 53.52 kg Jordyn D Ramirez Work Phone: [facility] Work Phone: 06-06-2022 14:14-0500 Diastolic blood pressure 70 mm[Hg] Jordyn D Ramirez Work Phone: [facility] Work Phone: 06-06-2022 14:14-0500 Heart rate 108 /min Jordyn D Ramirez Work Phone: [facility] Work Phone: 06-06-2022 14:14-0500 SaO2% (BldA) [Mass fraction] 99 % Jordyn Ramirez Work Phone: [facility] Work Phone: 06-06-2022 14:14-0500 Systolic blood pressure 112 mm[Hg] Jordyn Nguyễnkins Work Phone: [facility] Work Phone: 05-02-2022 08:59-0400 Body height 165.1 cm Jordyn Jason NguyễnRamirez Work Phone: [facility] Work Phone: 05-02-2022 08:59-0400 Body mass index (BMI) [Ratio] 17.81 kg/m2 Jordyn Nguyễnkins Work Phone: [facility] Work Phone: 05-02-2022 08:59-0400 Body surface area Derived from formula 1.52 m2 Jordyn Ramirez Work Phone: [facility] Work Phone: 05-02-2022 08:59-0400 Body weight 48.53 kg Jordyn Ramirez Work Phone: [facility] Work Phone: 05-02-2022 08:59-0400 Diastolic blood pressure 68 mm[Hg] Jordyn Jason Ramirez Work Phone: [facility] Work Phone: 05-02-2022 08:59-0400 Heart rate 118 /min Jordyn Jason Ramirez Work Phone: [facility] Work Phone: 05-02-2022 08:59-0400 Systolic blood pressure 102 mm[Hg] Jordyn Gomez Ramirez Work Phone: [facility] Work Phone: 03-03-2022 14:28-0400 Body height 165.1 cm Jordyn Gomez Ramirez Work Phone: [facility] Work Phone: 03-03-2022 14:28-0400 Body mass index (BMI) [Ratio] 18.47 kg/m2 Jordyn D Ramirez Work Phone: [facility] Work Phone: 03-03-2022 14:28-0400 Body surface area Derived from formula 1.54 m2 Jordyn D Ramirez Work Phone: [facility] Work Phone: 03-03-2022 14:28-0400 Body weight 50.35 kg Jordyn D Ramirez Work Phone: [facility] Work Phone: 03-03-2022 14:28-0400 Diastolic blood pressure 72 mm[Hg] Jordyn D Ramirez Work Phone: [facility] Work Phone: 03-03-2022 14:28-0400 Heart rate 84 /min Jordyn D Ramirez Work Phone: [facility] Work Phone: 03-03-2022 14:28-0400 Systolic blood pressure 110 mm[Hg] Jordyn D Ramirez Work Phone: [facility] Work Phone: 01-04-2021 13:50-0400 Diastolic blood pressure 70 mm[Hg] Page Josy Other Phone: [facility] 01-04-2021 13:50-0400 Diastolic blood pressure 73 mm[Hg] Page Josy Other Phone: [facility] 01-04-2021 13:50-0400 Diastolic blood pressure 77 mm[Hg] Page Josy Other Phone: [facility] 01-04-2021 13:50-0400 Heart rate 79 /min Page Josy Other Phone: [facility] 01-04-2021 13:50-0400 Heart rate 77 /min Page Josy Other Phone: [facility] 01-04-2021 13:50-0400 Heart rate 89 /min Page Josy Other Phone: [facility] 01-04-2021 13:50-0400 Systolic blood pressure 104 mm[Hg] Page Josy Other Phone: [facility] 01-04-2021 13:50-0400 Systolic blood pressure 113 mm[Hg] Page Josy Other Phone: [facility] 01-04-2021 13:38-0400 Respiratory rate 20 /min Page Josy Other Phone: [facility] 01-04-2021 11:45-0400 Body height 165.1 cm Page Josy Other Phone: [facility] 01-04-2021 11:45-0400 Body temperature 98.06 [degF] Page Josy Other Phone: [facility] 01-04-2021 11:45-0400 Body weight 60.5 kg Page Josy Other Phone: [facility] 01-04-2021 11:45-0400 SaO2% (BldA) [Mass fraction] 98 % Page Josy Other Phone: [facility] Encounters Encounter Date Encounter Type Care Provider Facility Start: 05-06-2024 End: 05-06-2024 Office outpatient visit 25 minutes Jordyn Thakur APRN-AIRWORTHINESS SAFETY INSPECTOR Work Phone: [facility] Comment on above: Sore throat (Primary Dx) Start: 05-06-2024 End: 05-06-2024 ambulatory JORDYN Gomez THAKUR [facility] Ambulatory Start: 02-04-2024 End: 02-04-2024 ambulatory [facility] Facility:[facility] Start: 02-04-2024 End: 02-04-2024 Lab Drop off Anika Bob [facility] Start: 01-09-2024 End: 01-09-2024 ambulatory Anika Bob Facility:[facility] Start: 01-09-2024 End: 01-09-2024 Patient encounter procedure Anika Bob [facility] Start: 10-10-2023 End: 10-10-2023 Office outpatient visit 15 minutes Jordyn Thakur INSPECTOR FINISHING-AIRWORTHINESS SAFETY INSPECTOR Work Phone: [facility] Comment on above: Generalized anxiety disorder with panic attacks Start: 10-10-2023 End: 10-10-2023 ambulatory [facility] Ambulatory Start: 09-22-2023 End: 09-22-2023 ambulatory Anika Bob Facility:[facility] Start: 09-22-2023 End: 09-22-2023 Patient encounter procedure Anika Bob [facility] Start: 09-19-2023 End: 09-19-2023 Office outpatient visit 25 minutes Jordyn Thakur INSPECTOR FINISHING-AIRWORTHINESS SAFETY INSPECTOR Work Phone: [facility] Comment on above: Nausea (Primary Dx); Nasal congestion; Acute non-recurrent sinusitis, unspecified location Start: 09-19-2023 End: 09-19-2023 ambulatory [facility] Start: 09-12-2023 End: 09-12-2023 Office outpatient visit 25 minutes Jordyn Thakur INSPECTOR FINISHING-AIRWORTHINESS SAFETY INSPECTOR Work Phone: [facility] Comment on above: Generalized anxiety disorder with panic attacks (Primary Dx) Start: 09-12-2023 End: 09-12-2023 ambulatory [facility] Start: 08-27-2023 End: 08-28-2023 ambulatory [facility] Start: 08-21-2023 End: 08-21-2023 Office outpatient new 30 minutes Anika Richardson MD Work Phone: [facility] Building Comment on above: Family planning coun seling (Primary Dx) Start: 08-21-2023 End: 08-21-2023 ambulatory ANIKA Godinez BRAD [facility] Ambulatory Start: 07-13-2023 End: 07-13-2023 ambulatory [facility] Start: 06-19-2023 End: 06-19-2023 Emergency department patient visit JORDYN Gomez [facility] Start: 06-19-2023 End: 06-19-2023 Emergency department patient visit Jordyn Thakur INSPECTOR FINISHING-AIRWORTHINESS SAFETY INSPECTOR Work Phone: [facility] Comment on above: Urinary tract infect ion without hematuria, site unspecified (Primary Dx) Start: 05-18-2023 End: 05-18-2023 Office outpatient visit 25 minutes Jordyn Jason Ofe INSPECTOR FINISHING-AIRWORTHINESS SAFETY INSPECTOR Work Phone: [facility] Comment on above: Urinary frequency (P rimary Dx); Urinary tract infection with hematuria, site unspecified; Generalized anxiety disorder with panic attacks; Gastroesophageal reflux disease without esophagitis Start: 05-18-2023 End: 05-18-2023 ambulatory [facility] Start: 04-23-2023 End: 04-23-2023 Office outpatient visit 25 minutes Kemi Echevarria MD Work Phone: [facility] Comment on above: H/O urinary tract in fection (Primary Dx); Generalized anxiety disorder with panic attacks Start: 04-13-2023 End: 04-13-2023 Emergency department patient visit Chris Blue [facility] Emergency 14 Start: 04-09-2023 End: 04-11-2023 ambulatory Ms. Jordyn Thakur Facility:[id number] Start: 04-09-2023 End: 04-11-2023 Evaluation and management of inpatient Bautista Villanueva [facility] 3 [facility] 310 01 Start: 03-27-2023 End: 03-27-2023 Emergency department patient visit JORDYN SARGENT ASHLEY [facility] Start: 11-06-2022 End: 11-06-2022 Emergency department patient visit Alie Flor [facility] Emergency 11 Start: 10-20-2022 End: 10-20-2022 Office outpatient visit 15 minutes Jordyn Thakur INSPECTOR FINISHING-AIRWORTHINESS SAFETY INSPECTOR Work Phone: [facility] Comment on above: Vaginal yeast infect ion (Primary Dx) Start: 10-02-2022 End: 10-02-2022 Emergency department patient visit JORDYN ARIE RAMIREZ [facility] Start: 08-31-2022 ambulatory AIRWORTHINESS SAFETY INSPECTOR JORDYN Sue acility:[id number] Start: 08-24-2022 End: 08-24-2022 Emergency department patient visit Tyrell Pelaez [facility] Emergency Start: 08-03-2022 Office outpatient vi sit 25 minutes Jordyn Thakur Work Phone: [facility] Work Phone: Start: 08-03-2022 ambulatory AIRWORTHINESS SAFETY INSPECTOR JORDYN Sue acility:[id number] Start: 06-14-2022 Office outpatient vi sit 15 minutes Jordyn Thakur Work Phone: [facility] Work Phone: Start: 06-14-2022 ambulatory AIRWORTHINESS SAFETY INSPECTOR JORDYN Sue acility:[id number] Start: 06-07-2022 End: 06-11-2022 ambulatory [facility] Start: 06-06-2022 ambulatory AIRWORTHINESS SAFETY INSPECTOR JORDYN Sue acility:[id number] Start: 06-06-2022 Office outpatient vi sit 10 minutes Jordyn Ramirez Work Phone: [facility] Work Phone: Start: 05-23-[address] Kemi Paul ility:[id number] Start: 05-10-2022 End: 05-14-2022 ambulatory [facility] Start: 05-02-2022 Office outpatient vi sit 25 minutes Jordyn Ramirez Work Phone: [facility] Work Phone: Start: 05-02-2022 ambulatory AIRWORTHINESS SAFETY INSPECTOR JORDYN Sue acility:[id number] Start: 04-25-2022 End: 04-25-2022 ambulatory [facility] Start: 04-25-2022 End: 04-25-2022 [facility] Comment on above: Closed nondisplaced fracture of distal phalanx of left middle finger, initial encounter (Primary Dx) Start: 04-24-2022 End: 04-24-2022 Emergency department patient visit STANLEY LOO QUILES [facility] Start: 03-15-2022 Chart Update Jordyn Ramirez Work Phone: [facility] Work Phone: Start: 03-03-2022 Office outpatient ne w 45 minutes Jordyn Ramirez Work Phone: [facility] Work Phone: Start: 01-04-2021 End: 01-04-2021 Emergency department patient visit Alie Yadira [facility] Emergency 13 Start: 04-01-2019 End: 04-01-2019 Emergency department patient visit DILIA Gupta [facility] Start: 10-27-2018 End: 10-27-2018 Emergency department patient visit Pagecourtney Ferris Facility:[facility] Start: 04-01-2018 End: 04-02-2018 Emergency department patient visit Page Joselyn LopezJosy Facility:[facility] Start: 01-24-2018 End: 01-24-2018 Emergency department patient visit Attalla Joselyn [facility] Facility:[facility] Procedures Date Procedure Procedure Detail Performing Clinician Start: 08-27-2023 PROGESTERONE JORDYN THAKUR Start: 07-13-2023 Bacteria identified in Urine by Culture JORDYN THAKUR Start: 07-13-2023 POCT UA AUTOMATED MA NUALLY RESULTED JORDYN THAKUR Start: 06-19-2023 Bacteria identified in Urine by Culture JORDYN THAKUR Start: 06-19-2023 EXTRA URINE BROYD TUBE A PABLO THAKUR Start: 06-19-2023 HCG, URINE, QUALITATIVE JORDYN THAKUR Start: 06-19-2023 MICROSCOPIC ONLY, URINE JORDYN THAKUR Start: 06-19-2023 URINALYSIS WITH REFL EX CULTURE AND MICROSCOPIC JORDYN THAKUR Start: 06-19-2023 Urinalysis microscop ic panel - Urine Qualitative by Automated Bela López PA-C Work Phone: Start: 06-19-2023 Urine test visual color cmprsn meths Bela REYNOSOC Work Phone: Start: 06-19-2023 Urnls dip stick/tabl et reagent auto microscopy Bela López PA-C Work Phone: Start: 05-18-2023 Bacteria identified in Urine by Culture JORDYN THAKUR Start: 05-18-2023 POCT UA AUTOMATED MA NUALLY RESULTED JORDYN THAKUR Start: 05-18-2023 Urnls dip stick/tabl et rgnt auto w/o microscopy Jordyn Thakur INSPECTOR FINISHING-AIRWORTHINESS SAFETY INSPECTOR Work Phone: Start: 04-14-2023 Lipid 1996 panel - S charley or Plasma Kemi Echevarria MD Work Phone: Start: 03-10-2022 Lipid 1996 panel - S charley or Plasma Jordyn Thakur INSPECTOR FINISHING-AIRWORTHINESS SAFETY INSPECTOR Work Phone: Start: 01-04-2021 End: 01-04-2021 EKG impression Beverly Urbanohollyjose Extraction of wisdom tooth A my Jason Ramirez Work Phone: Comment on above: x 4 extracted 4 year s ago; Plan of Treatment Date Care Activity Detail Author Start: 2050 Zoster Vaccines (1 of 2) Zoste r Vaccines (1 of 2) [facility] Start: 04-14-2028 Lipid panel Lipid Panel [facility] Start: 03-10-2027 Lipid panel Lipid Panel [facility] Start: 04-11-2024 End: 04-11-2024 Patient encounter procedure 04/11/2024 4:20 PM EDT Office Visit [facility] [address] [place] [phone] Jordyn Thakur, INSPECTOR FINISHING-AIRWORTHINESS SAFETY INSPECTOR [address] [place] [address] [facility] Start: 03-31-2024 DTaP/Tdap/Td Vaccine s (7 - Td or Tdap) DTaP/Tdap/Td Vaccines (7 - Td or Tdap) [facility] Start: 03-31-2024 Tetanus vaccination Tetanus: Every 1 0yrs [facility] Start: 03-23-2024 COVID-19 Vaccine ( season) COVID-19 Vaccine ( season) [facility] Start: 03-23-2024 Influenza vaccination Influenza Vacc ine (#1) [facility] Start: 01-20-2024 Influenza vaccination Influenza Vacc ine (#1) [facility] Comment on above: Postponed from 03/23 (Patient Refused) Start: 10-22-2023 End: 10-22-2023 Patient encounter procedure 10/22/2023 3:30 PM EDT Office Visit [facility] Medical Office [facility] [address] [place] [address] Anika Richardson MD [address] [facility] [address] [place] [address] [facility] Office [facility] Start: 10-17-2023 End: 10-17-2023 Patient encounter procedure 10/17/2023 1:00 PM EDT Office Visit [facility] [address] [place] [phone] Mari Hensley MD [address] [place] [id number] [facility] Medical Office [facility] Start: 10-10-2023 End: 10-10-2023 Telemedicine consultation with patient 10/10/2023 3:40 PM EDT Telemedicine [facility] [address] [place] [phone] Jordyn Thakur, INSPECTOR FINISHING-AIRWORTHINESS SAFETY INSPECTOR [address] [place], [place] [phone] [facility] Start: 08-27-2023 End: 08-21-2024 Progesterone [Mass/volume] in Serum or Plasma Progesterone Lab Routine Family planning counseling Expected: 08/27/2023 (Approximate), Expires: 08/21/2024 [facility] Service Area Work Phone: Comment on above: Expected: 08/27/2023 (Approximate), Expires: 08/21/2024 Start: 07-13-2023 End: 07-13-2023 Patient encounter procedure 07/13/2023 9:00 AM EST Office Visit [facility] [address] [place] [phone] Jordyn Thakur, INSPECTOR FINISHING-AIRWORTHINESS SAFETY INSPECTOR [address] [place] [address] [facility] Start: 07-03-2023 End: 07-03-2023 Patient encounter procedure 07/03/2023 2:15 PM EST Office Visit [facility] Physician Kobe [address] [facility] [address] [place] [address] Lola Devine MD MPH [address] [facility], [facility] [address] [place], [place] [phone] [facility] Start: 05-18-2023 End: 05-25-2023 Bacteria identified in Urine by Culture [facility] Service Area Work Phone: Comment on above: Expected: 05/18/2023 (Approximate), Expires: 05/25/2023 Start: 04-09-2023 End: 04-09-2024 oxyCODONE Immediate Release 5 mg Oral Tablet Every 4 Hours ; Tablet (OXYIR, ROXICODONE)DOSE = 5 mg Oral Every 4 Hours, PRN Pain - Severe (7-10) Start: 09-Apr-2023 End: 08-Apr-2024 Ordered: 09-Apr-2023 Delgado Nix Intent [facility] Start: 04-09-2023 End: 04-09-2024 [facility] Start: 03-06-2023 FUV, Provider: Jordyn Ramirez, Status: Pen, Time: 2:40 PM FUV, Provider: Jordyn Ramirez, Status: Pen, Time: 2:40 PM [facility] Work Phone: Start: 03-06-2023 FUV, Provider: Jordyn Thakur, Status: Pen, Time: 2:40 PM FUV, Provider: Jordyn Thakur, Status: Pen, Time: 2:40 PM [facility] Work Phone: Start: 03-06-2023 Patient encounter procedure Outpatient [facility] Start: 06-Mar-2023 14:40 Jordyn Thakur Intent [facility] Start: 03-06-2023 End: 03-06-2023 Patient encounter procedure 03/06/2023 2:40 PM EDT Office Visit [facility] [address] [place] [phone] Jordyn Thakur D, INSPECTOR FINISHING-AIRWORTHINESS SAFETY INSPECTOR [address] [place] [address] [facility] Start: 10-26-2022 Screening for Chlamy ankita trachomatis Chlamydia Screening [facility] Start: 09-14-2022 FUV, Provider: Jordyn Thakur, Status: Pen, Time: 2:20 PM FUV, Provider: Jordyn Thakur, Status: Pen, Time: 2:20 PM [facility] Work Phone: Start: 09-14-2022 Patient encounter procedure [facility] Start: 08-31-2022 Patient encounter procedure [facility] Start: 08-10-2022 NPV, Provider: Jocelyne Bae, Status: Pen, Time: 1:00 PM NPV, Provider: Jocelyne Bae, Status: Pen, Time: 1:00 PM [facility] Work Phone: Start: 05-23-2022 FUV, Provider: Kemi Echevarria, Status: Pen, Time: 2:00 PM FUV, Provider: Kemi Echevarria, Status: Pen, Time: 2:00 PM [facility] Work Phone: Start: 05-10-2022 End: 05-10-2022 Patient encounter procedure 05/10/2022 Office Visit Sports Medicine Joselin Noyola, AIRWORTHINESS SAFETY INSPECTOR [address] [place] [address] [facility] Start: 03-31-2022 FUV, Provider: Jordyn Ramirez, Status: Pen, Time: 2:20 PM FUV, Provider: Jordyn Ramirez, Status: Pen, Time: 2:20 PM [facility] Work Phone: Start: 03-23-2022 Influenza vaccination [facility] Start: 2021 Screening for malign ant neoplasm of cervix [facility] Start: 12-14-2021 History and physical examination, annual for health maintenance Wellness Visit [facility] Start: 2018 Hepatitis C screening Hepatitis C Sc reening [facility] Start: 12-29-2015 HIV screening HIV Screening [facility] Start: 2012 Depression screening using PHQ-9 (Patient Health Questionnaire 9) score Depression Screening (PHQ-2/9) [facility] Start: 2006 Pneumococcal Vaccine : Pediatrics (0 to 5 Years) and At-Risk Patients (6 to 64 Years) (1 - PCV) Pneumococcal Vaccine: Pediatrics (0 to 5 Years) and At-Risk Patients (6 to 64 Years) (1 - PCV) [facility] Start: 2006 Pneumococcal Vaccine : Pediatrics (0 to 5 Years) and At-Risk Patients (6 to 64 Years) (1 of 2 - PCV) Pneumococcal Vaccine: Pediatrics (0 to 5 Years) and At-Risk Patients (6 to 64 Years) (1 of 2 - PCV) [facility] Start: 12-29-2003 Well Child Visit (WC V) - Annual Well Child Visit (WCV) - Annual [facility] Start: 06-29-2001 COVID-19 Vaccine (#1) COVID-19 Vacci ne (#1) [facility] Start: 2000 Hearing Screening (#1) Hearing Scree wilberto (#1) [facility] Start: 2000 HIV screening HIV Screening [facility] Start: 2000 Screening for Chlamy ankita trachomatis Chlamydia and Gonorrhea Screening [facility] Start: 2000 Screening for malign ant neoplasm of cervix Pap Smear [facility] Start: 2000 Yearly Adult Physical Yearly Adult P hysical [facility] End: 06-19-2023 Bacteria identified in Urine by Culture [facility] Work Phone: Comment on above: Once (Lab) for 1 Occ urrences starting 06/19/2023 until 06/19/2023 End: 06-19-2023 Extra Urine Rbody Tube [facility] Work Phone: Comment on above: Once for 1 Occurrenc es starting 06/19/2023 until 06/19/2023 End: 06-19-2023 Urinalysis complete W Reflex Culture panel - Urine [facility] Service Area Work Phone: Comment on above: Once (Lab) for 1 Occ urrences starting 06/19/2023 until 06/19/2023 Immunizations Immunization Date Immunization Notes Care Provider Fa jackie 04-11-2019 measles, mumps and rubella virus vaccine Jordyn Thakur Work Phone: [facility] Work Phone: 04-11-2019 varicella virus vaccine Jordyn Thakur Work Phone: [facility] Work Phone: 08-08-2018 meningococcal B vacc ine, recombinant, OMV, adjuvanted Jordyn Thakur Work Phone: [facility] Work Phone: 04-17-2018 hepatitis A vaccine, pediatric/adolescent dosage, 2 dose schedule Jordyn Thakur Work Phone: [facility] Work Phone: 04-17-2018 meningococcal B vacc ine, recombinant, OMV, adjuvanted Jordyn Thakur Work Phone: [facility] Work Phone: 04-02-2017 hepatitis A vaccine, pediatric/adolescent dosage, 2 dose schedule Jordyn Thakur Work Phone: [facility] Work Phone: 04-02-2017 Human Papillomavirus 9-valent vaccine Jordyn Thakur Work Phone: [facility] Work Phone: 04-02-2017 meningococcal polysaccharide (groups A, C, Y and W-135) diphtheria toxoid conjugate vaccine (MCV4P) Jordyn Thakur Work Phone: [facility] Work Phone: 01-14-2015 HPV, unspecified formulation Jordyn Thakur Work Phone: [facility] Work Phone: 01-14-2015 varicella virus vaccine Jordyn Thakur Work Phone: [facility] Work Phone: 03-31-2014 meningococcal polysaccharide (groups A, C, Y and W-135) diphtheria toxoid conjugate vaccine (MCV4P) Jordyn Thakur Work Phone: [facility] Work Phone: 03-31-2014 tetanus toxoid, redu karina diphtheria toxoid, and acellular pertussis vaccine, adsorbed Jordyn Thakur Work Phone: [facility] Work Phone: 06-18-2009 novel Influenza-H1N1 -09, live virus for nasal administration Jordyn Thakur Work Phone: [facility] Work Phone: 06-18-2009 influenza virus vacc ine, unspecified formulation Jordyn Thakur INSPECTOR FINISHING-AIRWORTHINESS SAFETY INSPECTOR Work Phone: [facility] Work Phone: 04-12-2007 diphtheria, tetanus toxoids and acellular pertussis vaccine Jordyn Thakur Work Phone: [facility] Work Phone: 04-12-2007 measles, mumps and rubella virus vaccine Jordyn Thakur Work Phone: [facility] Work Phone: 04-12-2007 poliovirus vaccine, inactivated Jordyn Thakur Work Phone: [facility] Work Phone: 05-18-2003 pneumococcal conjuga te vaccine, 7 valent Jordyn Thakur Work Phone: [facility] Work Phone: 08-22-2002 diphtheria, tetanus toxoids and acellular pertussis vaccine, unspecified formulation Jordyn Thakur Work Phone: [facility] Work Phone: 12-23-2001 diphtheria, tetanus toxoids and acellular pertussis vaccine, unspecified formulation Jordyn Thakur Work Phone: [facility] Work Phone: 12-23-2001 haemophilus influenz ae type b vaccine, conjugate unspecified formulation Jordyn Thakur Work Phone: [facility] Work Phone: 12-23-2001 hepatitis B vaccine, pediatric or pediatric/adolescent dosage Jordyn Thakur Work Phone: [facility] Work Phone: 12-23-2001 measles, mumps and rubella virus vaccine Jordyn Thakur Work Phone: [facility] Work Phone: 12-23-2001 pneumococcal conjuga te vaccine, 7 valent Jordyn Thakur Work Phone: [facility] Work Phone: 12-23-2001 poliovirus vaccine, inactivated Jordyn Thakur Work Phone: [facility] Work Phone: 12-23-2001 varicella virus vaccine Jordyn Thakur Work Phone: [facility] Work Phone: 06-12-2001 diphtheria, tetanus toxoids and acellular pertussis vaccine, unspecified formulation Jordyn Thakur Work Phone: [facility] Work Phone: 06-12-2001 haemophilus influenz ae type b vaccine, conjugate unspecified formulation Jordyn Thakur Work Phone: [facility] Work Phone: 06-12-2001 hepatitis B vaccine, pediatric or pediatric/adolescent dosage Jordyn Thakur Work Phone: [facility] Work Phone: 06-12-2001 poliovirus vaccine, inactivated Jordyn Jason Ofe Work Phone: [facility] Work Phone: 03-28-2001 diphtheria, tetanus toxoids and acellular pertussis vaccine, unspecified formulation Jordyn Thakur Work Phone: [facility] Work Phone: 03-28-2001 haemophilus influenz ae type b vaccine, conjugate unspecified formulation Jordyn Thakur Work Phone: [facility] Work Phone: 03-28-2001 hepatitis B vaccine, pediatric or pediatric/adolescent dosage Jordyn Thakur Work Phone: [facility] Work Phone: 03-28-2001 pneumococcal conjuga te vaccine, 7 valent Jordyn Jason Ofe Work Phone: [facility] Work Phone: 03-28-2001 poliovirus vaccine, inactivated Jordyn Jason Ofe Work Phone: [facility] Work Phone: Payers Date Payer Category Payer Private Health Insurance [id number] 2020 Medicaid [facility] [employer] [id number] 2020-Present [phone] [address] [place] [address] [id number] 2019 Medicaid [id number] 2019 Medicaid [id number] 2018 Unknown 2000 Unknown [id number] 2.16.840.1.310156.3.579.2. 651 2000 Unknown [id number] 2.16.840.1.804269.3.579.2. 903 2000 Unknown [id number] 2.16.840.1.125310.3.579.2. 903 2000 Unknown [id number] 2.16.840.1.202813.3.579.2. 903 2000 Unknown [id number] 2.16.840.1.208529.3.579.2. 903 2000 Unknown [id number] 2.16.840.1.828527.3.579.2. 903 2000 Unknown [id number] 2.16.840.1.546256.3.579.2. 903 2000 Unknown [id number] 2.16.840.1.238880.3.579.2. 902 2000 Unknown [id number] 2.16.840.1.786091.3.579.2. 902 2000 Unknown [id number] 2.16.840.1.916885.3.579.2. 902 2000 Unknown [id number] 2.16.840.1.663334.3.579.2. 356 2000 Unknown [id number] 2.16.840.1.111607.3.579.2. 356 2000 Unknown [id number] 2.16.840.1.682113.3.579.2. 356 2000 Unknown [id number] 2.16.840.1.445883.3.579.2. 356 2000 Unknown [id number] 2.16.840.1.500582.3.579.2. 356 2000 Unknown [id number] 2.16.840.1.173165.3.579.2. 356 2000 Unknown [id number] 2.16.840.1.990302.3.579.2. 9 2000 Unknown [id number] 2.16.840.1.342259.3.579.2. 1068 2000 Unknown [id number] 2.16840.1.104377.3.579.2. 1068 2000 Unknown [id number] 2.16840.1.289926.3.579.2. 1068 2000 Unknown [id number] 2.16840.1.121350.3.579.2. 1244 2000 Unknown [id number] 2.16840.1.997285.3.579.2. 1242 2000 Unknown [id number] 2.16.840.1.140020.3.579.2. 727 2000 Unknown [id number] 2.16840.1.245142.3.579.2. 727 2000 Unknown [id number] 2.16840.1.057375.3.579.2. 727 2000 Unknown [id number] 2.16.840.1.527133.3.579.2. 1243 2000 Unknown [id number] 2.16.840.1.936612.3.579.2. 1243 2000 Unknown [id number] 2.16.840.1.774530.3.579.2. 1243 2000 Unknown [id number] 2.16.840.1.985567.3.579.2. 1244 2000 Unknown [id number] 2.16.840.1.259930.3.579.2. 1244 2000 Unknown [id number] 2.16.840.1.099399.3.579.2. 1244 2000 Unknown [id number] 2.16.840.1.088687.3.579.2. 1244 1983 Unknown [id number] 2.16.840.1.048904.3.579.2. 717 1983 Unknown [id number] 2.16.840.1.888828.3.579.2. 717 1983 Unknown [id number] 2.16.840.1.752041.3.579.2. 717 Self-pay [id number] Unknown [id number] Social History Date Type Detail Facility [facility] Tobacco smoking consumption unknown [facility] Start: 10-03-2022 End: 10-10-2023 Nicotine dependence due to vaping tobacco product Nicotine dependence due to vaping tobacco product [facility] Work Phone: Start: 2000 Sex Assigned At Not on file O [facility] Start: 04-15-2022 End: 08-21-2023 Exposure to SARS-CoV-2 (event) Not sure [facility] Start: 10-03-2022 Tobacco smoking stat us NHIS Never smoked tobacco [facility] Work Phone: Start: 10-03-2022 End: 05-06-2024 Tobacco use and exposure Smokeless tobacco non-user [facility] Work Phone: Start: 10-20-2022 End: 05-18-2023 Alcohol intake Current drinker of alcohol (finding) [facility] Work Phone: Start: 10-03-2022 End: 10-10-2023 Tobacco use panel [facility] Work Phone: Start: 04-23-2023 Alcohol Comment [facility] Work Phone: Start: 01-19-2021 [facility] Start: 01-19-2021 End: 08-14-2023 History of tobacco use Cigarette Smoker [facility] Work Phone: History of tobacco use Pipe Smoker [facility] Work Phone: Start: 08-21-2023 End: 05-06-2024 Alcohol intake Ex-drinker (finding) [facility] Work Phone: Start: 08-21-2023 Tobacco Comment I vape. [facility] Work Phone: Start: 08-21-2023 Alcohol Comment I drink once e very few momths [facility] Work Phone: Start: 09-09-2023 End: 05-06-2024 Exposure to SARS-CoV-2 (event) Unable to assess [facility] Work Phone: Tobacco smoking status No Smokin g Status Entered [facility] Start: 05-06-2024 [facility] Start: 01-19-2021 End: 08-14-2023 History of tobacco use Current smoker [facility] Work Phone: Functional Status Date Assessment Result Facility Functional observable [facility] Mental Status Date Assessment Result Facility 04-11-2023 Cognitive functions 0239:29 [facility] Clinical Notes 03-03-2021 to 10-10-2023 Jordyn Thakur [...] up as before documented in this encounter [facility] Work Phone: 09-22-2023 Evaluation + Plan note Diagnostic Tests PendingAnti-Mullerian Hormone (AMH) 09/22/23FSH and LH 09/22/23Insulin Level Total 09/22/23 [facility] 08-21-2023 History of Present illness Narrative [...] Procedure Laterality Date OTHER SURGICAL HISTORY 03/03/2022 [place] tooth extraction Review of Systems: Constitutional: No [...] Dose Status busPIRone (Buspar) 5 mg tablet [id number] No Take by mouth 3 times a day as needed. Historical Provider, Taking Active citalopram (CeleXA) 40 mg tablet [id number] Take 1 tablet (40 mg) by mouth once daily. MYKE Amaya Active nitrofurantoin (Macrodantin) 100 mg capsule [id number] No take 1 capsule twice a day for 3 to 7 days Historical Provider, Taking Active omeprazole (PriLOSEC) [address] capsule [id number] No Take 1 capsule (20 mg) by [...] 08/21/2024 Order Specific Question: Release result to [employer] Answer: Immediate [1] Problem List Items Addressed [...] for annual exam. documented in this encounter [facility] Work Phone: 06-19-2023 Emergency department Note HPI [...] Procedure Laterality Date OTHER SURGICAL HISTORY 03/03/2022 [place] tooth extraction Family History Problem Relation Name [...] López PA-C 06/19/231810 documented in this encounter [facility] Work Phone: 06-19-2023 Physician Emergency department Note [...] Procedure Laterality Date OTHER SURGICAL HISTORY 03/03/2022 [place] tooth extraction Family History Problem Relation Name [...] health. Procedure Procedures Bela López PA-C 06/19/231810 [facility] Work Phone: 05-18-2023 History of Present illness [...] up as before documented in this encounter [facility] Work Phone: 04-23-2023 History of Present illness [...] mon with PCP. documented in this encounter [facility] Work Phone: 04-11-2023 Note Send Summary: Discharge Summary Providers: Provider RoleProvider Name Bautista Foy Logeswari PrimaryConley, Amy PrimaryMcArdle, Joyce Note Recipients: Jordyn Thak[facility] [phone] [Preferred] Discharge: Summary: Admission Date: .09-Apr-2023 10:40:00 Discharge Date: 11-Apr-2023 Attending Physician at Discharge: Bautista villanueva Admission Reason: Flank pain Final Discharge Diagnoses: Pyelonephritis, acute kidney injury Procedures: none Vital Signs: T PRBPMAPSpO2 [id number]/879918% Date/Time04/11 8: 8: 8: 8: 16: 8:00 Range(36.6C - 37.6C ) (70 - 81 ) (16 - 18 ) (107 - 122 )/ (70 - 84 ) (82 - 85 ) (98% - 99% ) Highest temp of 37.6 C was recorded at 04/11 0:00 Date: Weight/Scale Type:Height: 09-Apr-2023 15:5454 kg / lcy859.1 cm Physical Exam: General: Not in acute [...] if there are errors there due to math instructor. Bautista Villanueva Hospitalist Discharge Information: and Continuing [...] Last Updated: 11-Apr-2023 09:36 by Bautista Villanueva) [facility] 04-11-2023 Hospital Discharge instructions Activity:activity as tolerated. May shower. May drive.Follow Up Appointment 1:Physician/Dept/Service: Primary care provider Jordyn Maurer for Referral: Pyelonephritis, acute kidney injuryCall to Schedule in: [address] Qmrcpibj: She will call and make her own appointment. [facility] 04-09-2023 Note History of Present I llness: [...] are negative Objective: Objective Information: T PRBPMAPSpO2 [id number]/8897% Date/Time04/09 10:409/18 14:12918 14:129 14: 14:12 Range(36.5C - 36.5C ) (69 - 81 ) (16 - 16 ) (123 - 133 )/ (88 - 96 ) (97% - 97% ) Pain reported at 04/09 10:48: 3 = Mild T PRBPMAPSpO2 [id number]% Date/Time04/09 16: 16: 16: 16: 16: 16:00 [...] continue maintenance flu (more content not included)... [facility] 04-25-2022 History of Present illness Narrative [facility] [address] [facility] [address] [facility] [address] Chief Complaint Patient presents with Left Hand [...] Strength Wrist extension: 5/5 Wrist flexion: 5/5 Master Control Supervisor: 3/5 Other Erythema: absent Scars: absent Sensation: [...] medications as needed. documented in this encounter [facility] 03-02-2022 History of Present illness Narrative INCONSISTENT SLEEP AT NIGHT SEVERAL TIMES / WEEK . WAKES UP WITH COLD SWEATS., AND DIZZINESS.0N AND OFF. MISSED PERIOD , LAST ONE WAS 2 MONTHS AGO. STOPPED GETTING DEPO SHOT ALMOST 2.5 MONTHS AGO. [facility] Work Phone: 01-01-2022 History of Present illness Narrative ANXIETY , NO PANIC ATTACKS SINCE LAST VISIT.. HASN'T BEEN TAKING THE PRN BUSPAR . CONTROL TX WAS STOPPED SEVERAL MONTHS AGO BUT MENSES ARE NOT BACK MONTHLY..WEIGHT GAIN. [facility] Work Phone: 11-20-2021 History of Present illness Narrative Presents today for C/O SPOTTING FOR SEVERAL DAYS modifying factors consists of STOPPED THE DEPO SHOT WAS NOVEMBER 2021. SHE HAS NOT RESUMED HER PERIODS. NEGATIVE HOME TEST associated symptoms consist of CRAMPING ON/OFF prior treatment consists of medication NONE [facility] Work Phone: 03-03-2021 History of Present illness Narrative Presents today TO ESTABLISH NEW. C/O ANXIETY SEVERAL DAYS PPER WEEK X SEVERAL YEARS THAT HAS RECENTLY INCREASED OVER THE PAST 1 YEAR modifying factors consists of PANIC ATTACKS ON/OFF associated symptoms consist of DENIES DEPRESSION OR SUICIDAL IDEATION prior treatment consists of medication DOES NOT REMEMBER THE NAMEGERD- STABLE. MED REFILL [facility] Work Phone: Evaluation note Diagnosis Closed nondisplaced fracture of distal phalanx of left middle finger, initial encounter- [facility] Vaginal yeast infection- Primary Candidiasis of vulva and vagina documented in this encounter [facility] Work Phone: Evaluation note* Diagnosis H/O urinary tract infection- Primary Generalized anxiety disorder with panic attacks documented in this encounter [facility] Work Phone: Evaluation note* Diagnosis Urinary frequency- Primary Urinary tract infection with hematuria, site unspecified Generalized anxiety disorder with panic attacks Gastroesophageal reflux disease without esophagitis Esophageal reflux documented in this encounter [facility] Work Phone: Evaluation note* Diagnosis Urinary tract infection without hematuria, site unspecified- Primary documented in this encounter [facility] Work Phone: Evaluation note* Diagnosis Family planning counseling- Primary Other general counseling and advice for contraceptive management documented in this encounter [facility] Work Phone: Evaluation note* Diagnosis Generalized anxiety disorder with panic attacks- Primary documented in this encounter [facility] Work Phone: Evaluation note* Diagnosis Nausea- Primary Nausea alone Nasal congestion Other diseases of nasal cavity and sinuses Acute non-recurrent sinusitis, unspecified location documented in this encounter [facility] Work Phone: Evaluation note* Diagnosis Generalized anxiety disorder with panic attacks documented in this encounter [facility] Work Phone: Evaluation note* Diagnosis Sore throat- Primary Acute pharyngitis documented in this encounter [facility] Work Phone: History of Present illness Narrative* Jordyn Thakur, INSPECTOR FINISHING-AIRWORTHINESS SAFETY INSPECTOR - 10/20/2022 3:00 PM EDT Subjective Patient [...] Follow up as before [facility]: History of Present illness Narrative* [...] 1 MONTH MED CHECK documented in this [facility] Work Phone: History of Present illness [...] Follow up as before documented in this [facility] Work Phone: History of Present illness Narrative* MYKE Amaya - 05/06/2024 3:40 PM EDT Subjective Patient ID: Luz Hinojosa is a 23 y.o. female who presents for Follow-up (C/O SORE THROAT, NOSE BURNING, CHILLS, DRY COUGH, AND NAUSEA SINCE YESTERDAY. CURRENTLY ). VIRTUAL APPOINTMENT BEING PERFORMED. CONSENT GIVEN BY PATIENT FOR VIRTUAL VISIT. HPI: Presents today for C/O SORE THROAT AND COUGH X 2 DAYS modifying factors consists of SHE IS CURRENTLY . WAS EXPOSED TO COVID AT WORK associated symptoms consist of CHILLS, CONGESTION, AND NAUSEA. NO SOB OR CP prior treatment consists of medication TYLENOL Visit Vitals Ht 1.651 m (5' 5 ) Wt 54 kg (119 lb) LMP 08/10/2023 BMI 19.80 kg/m OB Status Smoking Status Former BSA 1.57 m Review of Systems Constitutional: Positive for chills and fatigue. Negative for fever and unexpected weight change. HENT: Positive for congestion and sore throat. Negative for ear pain and trouble swallowing. Eyes: Negative for photophobia, pain, redness and visual disturbance. Respiratory: Positive for cough. Negative for apnea, choking, chest tightness, shortness of breath and wheezing. Cardiovascular: Negative for chest pain, palpitations and leg swelling. Gastrointestinal: Positive for nausea. Negative for abdominal distention, abdominal pain, blood in stool, constipation, diarrhea and vomiting. Genitourinary: Negative for difficulty urinating, [...] patient is not nervous/anxious. Objective Physical Exam Constitutional: Appearance: She is ill-appearing. Neurological: Mental Status: She is alert and oriented to person, place, and time. Psychiatric: Mood and Affect: Mood normal. Behavior: Behavior normal. Thought Content: Thought content normal. Judgment: Judgment normal. Assessment/Plan Problem List Items Addressed This Visit Sore throat - Primary Relevant Medications COVID-19 antigen test (COVID-19 At-Home Test) kit amoxicillin (Amoxil) 500 mg capsule CALL WITH COVID-19 TESTING RESULTS AND CALL OBGYN WITH POSITIVE . DO NOT START AMOXICILLIN UNLESS NEGATIVE FOR COVID. REFUSING SOONER FU APPT AT THIS TIME. . INSTRUCTED TO SELF QUARANTINE AND TO PRACTICE GOOD HAND WASHING TECHNIQUES. PT WAS INSTRUCTED TO INCREASE FLUID INTAKE AND TAKE TYLENOL 650 [...] MEDICATIONS ORDERED OR SURGICAL OR PROCEDURE REFERRAL WILL CALL [facility]: [facility] course Narrative No data available for this section [facility] No data available for this section [facility] No data available for this section [facility] HospitalReason for referral (narrative)* Consultation (Routine) - Pending Review Specialty Diagnoses / Procedures Referred By Claritza macias Referred To Contact Obstetrics and Gynecology / Urology Diagnoses Urinary frequency Jordyn Thakur, FATEMEH-AIRWORTHINESS SAFETY INSPECTOR [address] [place] [address] Referral ID Status Reason Start Date Expiration Date Visits Requested Visits Authorized [id number] Pending Review Specialty Services Required 05/17/2024 1 1 T [facility] Work Phone: Summary Purpose Family History No [...] anxiety disorder with panic attacks Jordyn Thakur, INSPECTOR FINISHING-AIRWORTHINESS SAFETY INSPECTOR [address] [place] [address] Referral ID Status Reason Start Date Expiration Date Visits Re quested Visits Authorized [id number] Closed 1 1 Additional Source Comments INFORMATION SOURCE (unrecogn ized section and content) DATE CREATED AUTHOR 10/28/2018 [facility] DATE CREATED AUTHOR AUTHOR'S ORGANIZ ATION 04/08/2019 [facility] DATE CREATED AUTHOR AUTHOR'S ORGANIZ ATION 10/29/2021 [facility] DATE CREATED AUTHOR AUTHOR'S ORGANIZ ATION 06/11/2022 [facility] DATE CREATED AUTHOR AUTHOR'S ORGANIZ ATION 08/04/2022 [facility] DATE CREATED AUTHOR AUTHOR'S ORGANIZ ATION 04/02/2023 [facility] DATE CREATED AUTHOR AUTHOR'S ORGANIZ ATION 04/16/2023 [facility] DATE CREATED AUTHOR AUTHOR'S ORGANIZ ATION 05/09/2023 [facility] DATE CREATED AUTHOR AUTHOR'S ORGANIZ ATION 09/03/2023 [facility] DATE CREATED AUTHOR AUTHOR'S ORGANIZ ATION 11/02/2023 [facility] DATE CREATED AUTHOR AUTHOR'S ORGANIZ ATION 01/11/2024 [facility] DATE CREATED AUTHOR AUTHOR'S ORGANIZ ATION 01/13/2024 [facility] DATE CREATED AUTHOR AUTHOR'S ORGANIZ ATION 02/08/2024 [facility] DATE CREATED AUTHOR AUTHOR'S ORGANIZ ATION 02/09/2024 [facility] DATE CREATED AUTHOR AUTHOR'S ORGANIZ ATION 02/10/2024 [facility] DATE CREATED AUTHOR AUTHOR'S ORGANIZ ATION 02/11/2024 [facility] DATE CREATED AUTHOR AUTHOR'S ORGANIZ ATION 02/12/2024 [facility] DATE CREATED AUTHOR AUTHOR'S ORGANIZ ATION 05/08/2024 [facility] <item><item><item><item><item> Privacy Markings (unrecogniz ed section and [...] Med check ; pt stopp ed celexa Reason Comments Follow-up C/O SORE THROAT, NOS E BURNING, CHILLS, DRY COUGH, AND NAUSEA SINCE YESTERDAY. CURRENTLY Care Teams (unrecognized sec tion and content) Program Planner Relationship Specialty Start Date End Date Jordyn Ramirez, AIRWORTHINESS SAFETY INSPECTOR [address] [place] [address] PCP - General Nurse Practitioner 04/25/22 Program Planner Relationship Specialty Start Date End Date Jordyn Thakur, INSPECTOR FINISHING-AIRWORTHINESS SAFETY INSPECTOR [address] [place] [address] PCP - General 03/03/22 Program Planner Relationship Specialty Start Date End Date Jordyn Thakur, INSPECTOR FINISHING-AIRWORTHINESS SAFETY INSPECTOR [address] [place] [address] PCP - General 03/03/22 Jordyn Thakur, INSPECTOR FINISHING-AIRWORTHINESS SAFETY INSPECTOR [address] [place] [address] PCP - [facility] Medicaid PCP 10/21/22 Claudia Quick, client resource specialistCuring Oven Tender 04/12/23 Program Planner Relationship Specialty Start Date End Date Jordyn Thakur, INSPECTOR FINISHING-AIRWORTHINESS SAFETY INSPECTOR [address] [place] [address] PCP - General 03/03/22 Jordyn Thakur, INSPECTOR FINISHING-AIRWORTHINESS SAFETY INSPECTOR [address] [place] [address] PCP - [facility] Medicaid PCP 10/21/22 Claudia Quick, client resource specialistCuring Oven Tender 04/12/23 Program Planner Relationship Specialty Start Date End Date Jordyn Thakur, INSPECTOR FINISHING-AIRWORTHINESS SAFETY INSPECTOR [address] [place] [address] PCP - General 03/03/22 Jordyn Thakur, INSPECTOR FINISHING-AIRWORTHINESS SAFETY INSPECTOR [address] [place] [address] PCP - [facility] Medicaid PCP 10/21/22 Claudia Quick, client resource specialistCuring Oven Tender 04/12/23 Program Planner Relationship Specialty Start Date End Date Jordyn Thakur, INSPECTOR FINISHING-AIRWORTHINESS SAFETY INSPECTOR [address] [place] [address] PCP - General 03/03/22 Jordyn Tahkur, INSPECTOR FINISHING-AIRWORTHINESS SAFETY INSPECTOR [address] [place] [address] PCP - [facility] Medicaid PCP 10/21/22 Program Planner Relationship Specialty Start Date End Date Jordyn Thakur, INSPECTOR FINISHING-AIRWORTHINESS SAFETY INSPECTOR [address] [place] [address] PCP - General 03/03/22 Jordyn Thakur, INSPECTOR FINISHING-AIRWORTHINESS SAFETY INSPECTOR [address] [place] [address] PCP - [facility] Medicaid PCP 10/21/22 Program Planner Relationship Specialty Start Date End Date Jordyn Thakur, INSPECTOR FINISHING-AIRWORTHINESS SAFETY INSPECTOR [address] [place] [id number] PCP - General 03/03/22 Jordyn Thakur, INSPECTOR FINISHING-AIRWORTHINESS SAFETY INSPECTOR [address] [place] [address] PCP - [facility] Medicaid PCP 10/21/22 Program Planner Relationship Specialty Start Date End Date Jordyn Thakur, INSPECTOR FINISHING-AIRWORTHINESS SAFETY INSPECTOR [address] [place] [address] PCP - General 03/03/22 Jordyn Thakur, INSPECTOR FINISHING-AIRWORTHINESS SAFETY INSPECTOR [address] [place] [address] PCP - [facility] Medicaid PCP 10/21/22 Program Planner Relationship Specialty Start Date End Date Jordyn Thakur, FATEMEH-KARLENE [address] [place] [address] PCP - General 03/03/22 Jordyn Thakur, FATEMEH-KARLENE [address] [place] [address] PCP - [facility] Medicaid PCP 01/21/24 Scheduled Active and Recently Administ ered Medications [...] BE BASED ON THE PRIMARY CLINICAL RECORDS. [facility] [employer] [facility]. provides no warranty or guarantee of the accuracy or completeness of information in this document.
--- NOTE | 2024-05-13 21:27 | XR_ITS ---
The [address] [address] Patient Name: KELL HINOJOSA MRN: [facility]:[id number] date: 2000 Sex: F Assigned Patient Location: ER Current Patient Location: Accession/Order Number: [id number] Exam Date: 05/13/2024 22:02 Report Date: 05/13/2024 23:08 At the request of: EVAN RODRIGUEZ Procedure: XR chest 1V EXAM: XR chest 1V HISTORY: CP COMPARISON: None FINDINGS/IMPRESSION: 1. Lungs are clear 2. No pneumothorax. No pleural effusion. 3. Heart size and mediastinal contours are normal 4. No acute osseous abnormality Electronically authenticated by: GIOVANI ZELAYA Date: 05/13/2024 23:08
--- NOTE | 2024-05-13 21:27 | ECG_ITS ---
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
--- NOTE | 2024-05-13 21:28 | ED_ITS ---
HPI - Chest Pain General Chief Complaint: Chest Pain Stated Complaint: CHEST PAIN Time Seen by Provider: 05/13/24 21:21 Source: patient Mode of arrival: walk-in Limitations: no limitations History of Present Illness HPI narrative: 23-year-old female who is 24 weeks presents for chest pain. It has been intermittent and it moves all around her chest and she has had it for a few days. Denies back pain or complaints of fever cough or shortness of breath. No abdominal pain or vaginal bleeding. She has had no issues with this . Related Data Home Medications ?Medication ?Instructions ?Recorded ?Confirmed No Known Home Medications 04/05/24 05/13/24 Allergies Allergy/AdvReac Type Severity Reaction Status Date / Time paxil Allergy Mild Insomnia Uncoded 05/13/24 21:24 clonidine Allergy hives Uncoded 05/13/24 21:24 Review of Systems ROS Narrative A ten point review of systems is negative except as noted above. [facility] Medical History (Updated 05/13/24 @ 22:24 by Harshil Strange MD) GERD (gastroesophageal reflux disease) ?K21.9 - Gastro-esophageal reflux disease without esophagitis (ICD-10) Anxiety ?F41.9 - Anxiety disorder, unspecified (ICD-10) Social History Little interest or pleasure in doing things: not at all Feeling down, depressed, or hopeless: not at all Exam Narrative Exam Narrative: Nurses note and vital signs reviewed and patient is not hypoxic. General: The patient appears well and in no apparent distress. Patient is resting comfortably on cart. Skin: Warm, dry, no pallor noted. There is no rash noted. Head: Normocephalic, atraumatic Eye: Normal conjunctiva, no drainage Ears, Nose, Mouth, and Throat: oral mucosa is moist. Nares patent. Cardiac: Regular rate and rhythm, not cardiac Respiratory: Patient is in no distress, no accessory muscle use, lungs are clear to auscultation, no wheezing, rales or rhonchi. Chest wall not tender Back: non-tender GI: Gravid soft and nontender Musculoskeletal: The patient has no evidence of calf tenderness, no pitting edema, symmetrical pulses noted bilaterally Neurological: A&O, normal speech Psychiatric: Cooperative Constitutional Vital Signs, click to edit/add: Last Vital Signs Temp 98.1 F 05/13/24 21:17 Pulse 101 H 05/13/24 21:17 Resp 16 05/13/24 21:17 BP 107/84 05/13/24 21:17 Pulse Ox 99 05/13/24 21:17 O2 Del Method Room Air 05/13/24 21:17 Course Vital Signs Vital signs: Vital Signs Temperature 98.1 F 05/13/24 21:17 Pulse Rate 101 H 05/13/24 21:17 Respiratory Rate 16 05/13/24 21:17 Blood Pressure 107/84 05/13/24 21:17 Pulse Oximetry 99 05/13/24 21:17 Oxygen Delivery Method Room Air 05/13/24 21:17 Temperature 98.1 F 05/13/24 21:17 Pulse Rate 101 H 05/13/24 21:17 Respiratory Rate 16 05/13/24 21:17 Blood Pressure 107/84 05/13/24 21:17 Pulse Oximetry 99 05/13/24 21:17 Oxygen Delivery Method Room Air 05/13/24 21:17 MDM - Chest Pain MDM Narrative Medical decision making narrative: Her workup here is negative. She is not tachycardic and does not complain of shortness of breath and her symptoms are not consistent with a pulmonary embolism. I have no clinical suspicion of pulmonary embolism. She is able to be discharged home and findings were discussed with the patient. Differential Diagnosis Differential diagnosis: Likely pneumothorax, atypical chest pain, st elevation myocardial infarction and chest pain Lab Data Attestation: I reviewed the patient's lab results. Labs: Lab Results 05/13/24 Range/Units 21:40 WBC 10.8 (4.0-11.0) 10^3/uL RBC 4.07 L (4.20-5.40) 10^6/uL Hgb 11.9 L (12.0-16.0) g/dL Hct 35.1 L (36.0-48.0) % MCV 86.2 (81.0-99.0) fL MCH 29.2 (26.7-34.0) pg MCHC 33.9 (29.9-35.2) g/dL RDW 11.7 (11.0-15.0) % Plt Count 337 (150-450) 10^3/uL MPV 10.1 (9.5-13.5) fL Neut % (Auto) 75.8 H (43.0-75.0) % Lymph % (Auto) 15.5 L (20.5-60.0) % Summers % (Auto) 6.8 (1.7-12.0) % Eos % (Auto) 1.3 (0.9-7.0) % Baso % (Auto) 0.2 (0.2-2.0) % Neut # (Auto) 8.2 H (1.4-6.5) 10^3/uL Lymph # (Auto) 1.7 (1.2-3.8) 10^3/uL Summers # (Auto) 0.7 (0.3-0.8) 10^3/uL Eos # (Auto) 0.1 (0.0-0.7) 10^3/uL Baso # (Auto) 0.0 (0.0-0.1) 10^3/uL Abs Immat Gran (auto) 0.04 H (0.00-0.03) 10^3/uL Imm/Tot Granulo (auto) 0.4 (0.0-0.5) % Sodium 140 (136-145) mmol/L Potassium 3.6 (3.5-5.1) mmol/L Chloride 105 (98-107) mmol/L Carbon Dioxide 23.1 (21.0-32.0) mmol/L Anion Gap 15.5 BUN 7.0 (7.0-18.0) mg/dL Creatinine 0.73 (0.55-1.02) mg/dL Est GFR ( Amer) >60 (>=60 mL/min/1.73m^2) Est GFR (Non-Af Amer) >60 (>=60 mL/min/1.73m^2) BUN/Creatinine Ratio 9.6 Glucose 101 (74-106) mg/dL Calcium 9.2 (8.5-10.1) mg/dL Imaging Data Chest x-ray: My impression: Chest x-ray my interpretation shows no acute findings ECG Data Attestation: I personally reviewed and interpreted this ECG as follows: (EKG on my interpretation shows normal sinus rhythm with rate of 88 and no acute change) Discharge Plan Discharge Chief Complaint: Chest Pain Clinical Impression: Chest pain Patient Disposition: Home, Self-Care Time of Disposition Decision: 22:24 Condition: Good Mode of Transportation: Private Vehicle Prescriptions / Home Meds: No Action No Known Home Medications Print Language: Maldivian Instructions: Chest Pain (ED), Noncardiac Chest Pain (ED) Referrals: Physician,Non-Staff, MD [Primary Care Provider] - 1 week
[2024-05-13 21:59] LABS: Basophils Percent Auto 0.2 % (0.2-2.0); Eosinophils Absolute Auto 0.1 10^3/uL (0.0-0.7); Eosinophils Percent Auto 1.3 % (0.9-7.0); Hematocrit 35.1 % (36.0-48.0); Hemoglobin 11.9 g/dL (12.0-16.0); Immature Granulocytes Abs Auto 0.04 10^3/uL (0.00-0.03); Immature Granulocytes Pct Auto 0.4 % (0.0-0.5); Lymphocytes Absolute Auto 1.7 10^3/uL (1.2-3.8); Lymphocytes Percent Auto 15.5 % (20.5-60.0); Mean Corpuscular HGB Conc 33.9 g/dL (29.9-35.2); Mean Corpuscular Hemoglobin 29.2 pg (26.7-34.0); Mean Corpuscular Volume 86.2 fL (81.0-99.0); Mean Platelet Volume 10.1 fL (9.5-13.5); Monocytes Absolute Auto 0.7 10^3/uL (0.3-0.8); Monocytes Percent Auto 6.8 % (1.7-12.0); Neutrophils Absolute Auto 8.2 10^3/uL (1.4-6.5); Neutrophils Percent Auto 75.8 % (43.0-75.0); Platelet Count 337 10^3/uL (150-450); Red Blood Count 4.07 10^6/uL (4.20-5.40); Red Cell Distribution Width 11.7 % (11.0-15.0); White Blood Count 10.8 10^3/uL (4.0-11.0)
[2024-05-13 22:07] LABS: Anion Gap 15.5; BUN Creatinine Ratio 9.6; Calcium 9.2 mg/dL (8.5-10.1); Carbon Dioxide 23.1 mmol/L (21.0-32.0); Chloride 105 mmol/L (98-107); Estimated GFR (African America >60 (>=60 mL/min/1.73m^2); Estimated GFR (Non-African Ame >60 (>=60 mL/min/1.73m^2); Glucose 101 mg/dL (74-106); Potassium 3.6 mmol/L (3.5-5.1); Sodium 140 mmol/L (136-145)
== END 2024-05-13 22:34 | disposition home or self-care (01) ==
PROVIDERS: Emergency Provider Emergency Medicine
DX: O26.892 Other specified pregnancy related conditions, second trimester (principal); R07.9 Chest pain, unspecified; Z3A.24 24 weeks gestation of pregnancy
CPT/HCPCS: 36415; 71045; 80048; 85025; 93005; 99285

== ENCOUNTER 2024-09-21 19:33 | Emergency (ER) | payer OTHER, SELFPAY ==
[2024-09-21 19:36] VITALS: BP 133/85; PULSE 104; TEMP 36.7; O2SAT 100; BMI 21.6
--- OUTSIDE RECORDS SUMMARY | 2024-09-21 19:41 | XMS_ITS | CCD ---
Author Organization [facility] CliniSyfl Care Team Providers Care Public Area Attendant Name Role Phone Page Ferris Primary Care Unavailable Esdras Villanueva Admitting Unavailable Esdras Villanueva Attending Unavailable Page Ferris Primary Care Unavailable Cornici, Hong Admitting Unavailable Cornici, Hong Attending Unavailable Page Ferris Primary Care Unavailable Cornici, Hong Admitting Unavailable Cornici, Hong Attending Unavailable MARÍAERDILIA SNOW Admitting Unavailable HABDILIA OWUSU Attending Unavailable NO, DOCTOR ON Referring Unavailable DILIA BURNS Primary Care Unavailable NO, DOCTOR ON Consulting Unavailable Page Ferris Unavailable Alie Rodriguez Unavailable Unavailable Ramirez, Jordyn D Unavailable Unavailable Unavailable Jordyn Ramirez CNP Primary Care Provider [phone] JOSELIN NOYOLA Referring Unavailable JOSELIN NOYOLA Admitting [...] Unavailable RAMIREZ, JORDYN ARIE Primary Care Unavailable Thakur, Jordyn D Unavailable Page Ferris Unavailable Jordyn Thakur Unavailable Tyrell Pelaez Unavailable Unavailable Fried, Jocelyne Unavailable Unavailable Thakur CNA INSTRUCTOR-FACETER, Jordyn D Primary Care Provider Alie Folr Unavailable Unavailabl e RAMIREZ, JORDYN ARIE Primary Care Unavailable STANLEY QUILES Attending Unavailable STANLEY QUILES Attending Unavailable JEREMIASGo DOMINICK JAKEM Primary Care Unav ailable RAMIREZ, JORDYN ARIE Primary Care Unavailable MARE LEAVITT Attending Unava ilBautista Alberts Unavailable Unavailable Chris Blue Unavailable Unavailabl e THAKUR, FACETER JORDYN ARIE Primary Care Unavailab le Fried, Ms. Jocelyne Lee Attending Unavailabl e THAKUR, FACETER JORDYN ARIE Primary Care Unavailab le Zarrabi, Dr. Mcmullen Attending Unavailable Zalorraine, Dr. Mcmullen Referring Unavailable THAKUR, FACETER JORDYN ARIE Attending Unavailab le THAKUR, FACETER JORDYN ARIE Referring Unavailab le THAKUR, FACETER JORDYN ARIE Primary Care Unavailab le THAKUR, FACETER JORDYN ARIE Attending Unavailab le THAKUR, FACETER JORDYN ARIE Referring Unavailab le THAKUR, FACETER JORDYN ARIE Primary Care Unavailab le Zarrabi, Dr. Mcmullen Attending Unavailable Zarrcandace, Dr. Mcmullen Referring Unavailable THAKUR, FACETER JORDYN ARIE Primary Care Unavailab le THAKUR, FACETER JORDYN ARIE Primary Care Unavailab le Zarrabi, Dr. Mcmullen Attending Unavailable Zarrcandace, Dr. Mcmullen Referring Unavailable Thakur CNA INSTRUCTOR-FACETER, Jordyn D Unavailable Claudia Quick RN Unavailable Unavailable Basia, Ms. Alie Ward Attending Unavailable Thakur, Ms. Jordyn Arie Primary Care Unavailab le Thakur, Ms. Jordyn Arie Primary Care Unavailab le LeMtico, Dr. Chris Lemos Attending Unav ailable Thakur, Ms. Jordyn Arie Primary Care Unavailab fransisco Pelaez, Dr. Tyrell Gray Attending Unavailabl e Thakur, Ms. Jordyn Arie Primary Care Unavailab le Bautista Villanueva Attending Unavailable Daniel Berkowitz Admitting Unavailab le Emre Berkowitzi Referring Unavailab le JORDYN THAKUR Primary Care Unavailable NONE, XXXX Primary Care Physician Unavailab le JORDYN THAKUR Primary Care Unavailable Anika Bob Admitting Unavailable Anika Bob Attending Unavailable Paulino, Anika Gomez Admitting Unavailable Paulino, Anika Gomez Attending Unavailable Paulino, Anika Gomez Attending Unavailable Paulino, Anika Gomez Admitting Unavailable Paulino, Anika Gomez Attending Unavailable Paulino, Anika Gomez Admitting Unavailable Paulino, Anika Gomez Attending Unavailable Paulino, Anika Gomez Admitting Unavailable Thakur CNA INSTRUCTOR-FACETER, Jordyn D Primary Care Provider Thakur CNA INSTRUCTOR-FACETER, Jordyn D Unavailable THAKUR, JORDYN D Attending Unavailable THAKUR, [...] D Primary Care Unavailable Paulino, Anika Gomez Attending Unavailable Paulino, Anika Gomez Admitting Unavailable Paulino, Anika Gomez Attending Unavailable Paulino, Anika Gomez Admitting Unavailable Paulino, Anika Gomez Attending Unavailable Paulino, Anika Gomez Admitting Unavailable Paulino, Anika Gomez Admitting Unavailable Paulino, Anika Gomez Attending Unavailable Paulino, Anika Gomez Admitting Unavailable Paulino, Anika Gomez Attending Unavailable Paulino, Anika Gomez Attending Unavailable Paulino, Anika Gomez Admitting Unavailable Unavailable Primary Care Provider Unavailabl e Paulino, Anika Gomez Attending Unavailable Paulino, Anika Gomez Admitting Unavailable Paulino, Anika Gomez Attending Unavailable Paulino, Anika Gomez Admitting Unavailable JULIET ROCA Admitting Unavailable SOUTH, RONNA Consulting Unavailable CONCORDJENNY Attending Unavailable Paulino, Anika Gomez Attending Unavailable Paulino, Anika Gomez Admitting Unavailable Paulino, Anika Gomez Attending Unavailable Paulino, Anika Gomez Admitting Unavailable Allergies Allergy Classification Reported Allergen(s) Allergy Type Date of Onset Reaction(s) Facility cloNIDine (1 source) cloNIDine Drug Allergy Hives/Urticaria [facility] (20 sources) cloNIDine; Translations: [clonidine] Drug Allergy 1 Hives, Weal (disorder) [facility] (10 sources) PARoxetine; Translations: [PAROXETINE HCL] Drug Allergy 3 [facility] [place] Work Phone: (13 sources) PARoxetine; Translations: [paroxetine] Drug Allergy 4 Insomnia (disorder) [facility] Medications Current Medications Medication Drug Class(es) Dates Sig (Normalized) Sig (Original) amoxicillin 500 mg oral capsule (2 sources) Penicillin-class Antibacterial Start: 05-06-2024 End: 05-13-2024 take 1 capsule by mouth every twelve hours amoxicillin (Amoxil) 500 mg capsule Indications: Sore throat Take 1 capsule (500 mg) by mouth every 12 hours for 7 days. 14 capsule 05/06/2024 05/13/2024 Active Start: 10-03-2022 End: 10-10-2022 amoxicillin (Amoxil) 500 mg capsule Indications: Pharyngitis, unspecified etiology Take 1 capsule (500 mg) by mouth in the morning and 1 capsule (500 mg) at noon and 1 capsule (500 mg) before bedtime. Do all this for 7 days. 21 capsule 0 10/03/2022 10/10/2022 Active azithromycin 250 mg oral tablet (1 [...] Active busPIRone hydrochloride 5 mg oral tablet (19 sources) Start: 03-03-2022 busPIRone (Buspar) 5 mg [...] medi cation unless otherwise directed by prescriber. cephalexin 500 mg oral capsule (3 sources) Cephalosporin Antibacterial Start: 06-05-2024 End: 06-12-2024 take 1 capsule by mouth four times daily Keflex 500 mg Cap 500 mg = 1 cap(s), Oral, QID, X 7 day(s), # 28 cap(s), Refills(s) 0, Pharmacy: [facility] 1985, 165.1, cm, 06/03/24 20:43:00 EST, Height/Length Dosing, 64.5, kg, 06/03/24 20:43:00 EST, Weight Dosing Start Date: 06/05/24 Stop Date: 06/12/24 Status: Ordered Start: 06-19-2023 End: 06-24-2023 cephalexin (Keflex) capsule 500 mg COVID-19 antigen test (COVID-19 At-Home Test) kit (2 sources) Start: 05-06-2024 End: 05-06-2024 COVID-19 antigen test (COVID -19 At-Home Test) kit Indications: Sore throat 1 each 1 time for 1 dose. 2 each 1 05/06/2024 05/06/2024 Active Start: 09-19-2023 End: 09-19-2023 COVID-19 antigen test (COVID -19 At-Home Test) kit Indications: Nasal congestion 1 each 1 time for 1 dose. 2 each 0 09/19/2023 09/19/2023 Active docusate sodium 100 mg oral capsule (4 sources) Start: 06-23-2024 End: 07-25-2024 take 1 capsule by mouth twice daily as needed for constipation Docusate Sodium (DSS) 100 MG capsule Take 1 capsule (100 mg) by mouth 2 times daily as needed for constipation (Vaginal Delivery). 60 capsule 06/25/2024 10:54 AM EST 06/25/2024 07/25/2024 Active ibuprofen 600 mg oral tablet (5 sources) Nonsteroidal Anti-inflammatory Drug Start: 06-23-2024 End: 07-05-2024 take 1 tablet by mouth every six hours as needed for pain ibuprofen 600 MG tablet Take 1 tablet (600 mg) by mouth every 6 hours as needed for mild pain (1-3) for up to 10 days. 40 tablet 06/25/2024 10:54 AM EST 06/25/2024 07/05/2024 Active Start: 04-24-2022 End: 05-24-2022 take 1 tablet [...] 1 capsule by mouth twice daily nitrofurantoin, macrocrystal-monohydrate, (Macrobid) 100 mg capsule Indications: Urinary tract infection with hematuria, site unspecified Take 1 capsule (100 mg) by mouth 2 times a day for 7 days. 14 capsule 0 05/18/2023 05/25/2023 Active norethindrone 0.35 mg oral tablet (2 sources) Start: 06-25-2024 End: 06-25-2025 take 1 tablet by mouth once daily norethindrone (Aileen) 0.35 MG tablet Take 1 tablet (0.35 mg) by mouth daily. Take at the same time each day. Start at 3 weeks . 84 tablet 3 06/25/2024 10:54 AM EST 06/25/2024 06/25/2025 Active PARoxetine hydrochloride 20 mg oral tablet (14 sources) Serotonin Reuptake Inhibitor Start: 04-23-2023 End: [...] Quantity: 90 Refills: 1 Ordered: 06-Jun-2022 Simon WELDON-KARLENE, Jordyn Start : 03-Mar-2022 Active Start: 03-03-2022 take 1 tablet by christiano th once daily PARoxetine HCl - 10 MG Oral Tablet TAKE 1 TABLET DAILY. Quantity: 90 Refills: 0 Ordered: 03-Mar-2022 Nicole CNA INSTRUCTOR-FACETER, Jordyn Start : 03-Mar-2022 Active take 1 tablet by christiano th once daily in the morning PARoxetine mesylate 40 mg oral tablet ; 1 tab(s) orally once a day (in the morning) Quantity: 0 Refills: 0 Ordered: 24-Aug-2022 Jerardo Austindemarcus Generic Substitution Allowed phenazopyridine hydrochloride 200 mg oral tablet (1 source) Start: 06-19-2023 End: 06-21-2023 take 1 tablet by mouth three times daily phenazopyridine (Pyridium) 200 mg tablet Indications: Urinary tract infection without hematuria, site unspecified Take 1 tablet (200 mg) by mouth 3 times a day for 2 days. 6 tablet 0 06/19/2023 06/21/2023 Active Multivitamins (5 sources) Start: 06-03-2024 take 1 tablet by mouth once daily Multivitamins 1 tab(s), Oral, Daily, Refill(s) 0 Start Date: 06/03/24 Status: Ordered MV-Min-Fe Fum-FA-DHA ( 1 PO) (2 sources) MV-Min- Fe Fum-FA-DHA ( 1 PO) Take 1 tablet by mouth daily. Active Completed/Discontinued Medications Medication Drug Class(es) Dates Sig (Normalized) Sig (Original) acetaminophen 325 mg oral tablet (2 sources) Start: 06-23-2024 End: 06-25-2024 take 1 tablet by mouth every six hours as needed 650 mg, Oral, Every 6 hours PRN, other, pain (1-10), Starting on Sun06/23/24 at 2315, Give in addition to any other pain medication ordered at same time for any pain indication. Maximum dose of acetaminophen is 4000 mg from all sources in 24 hours. Alternate ibuprofen and acetaminophen every 3 hours. Give ibuprofen first in the sequence. benzethonium chloride 2 mg/ml / benzocaine 200 mg/ml topical spray (2 sources) Standardized Chemical Allergen Start: 06-23-2024 End: 06-25-2024 Topical, As needed, pain, , Starting on Sun06/23/24 at 2315, , Apply to perineal area. Patient is capable and may self administer at bedside. betamethasone 3 mg/ml / betamethasone acetate 3 mg/ml injectable suspension (2 sources) Corticosteroid Start: 06-22-2024 End: 06-23-2024 inject 12 mg by intramuscular injection every twenty-four hours 12 mg, IntraMUSCular, Every 24 hours, First dose on 06/22/24 at 2030, For 2 doses calcium chloride 0.0014 meq/ml / potassium chloride 0.004 meq/ml / sodium chloride 0.103 meq/ml / sodium lactate 0.028 meq/ml injectable solution (4 sources) Start: 06-23-2024 End: 06-23-2024 take 100 mL intravenously every hour 100 mL/hr, IntraVENous, Continuous, Starting on 06/23/24 at 1615 Start: 06-22-2024 End: 06-22-2024 500 mL, IntraVENous, at 500 mL/hr, Administer over 1 Hours, Once, On 06/22/24 at 2245, For 1 dose citalopram 10 mg oral tablet (7 sources) [...] tablet 0 09/12/2023 10/10/2023 Discontinued (Therapy completed) famotidine 20 mg oral tablet (2 sources) Histamine-2 Receptor Antagonist Start: 06-23-2024 End: 06-25-2024 ferrous sulfate 325 mg oral tablet (2 sources) Start: 06-24-2024 End: 06-25-2024 fluconazole 150 mg oral tablet (2 sources) Azole Antifungal Start: 10-20-2022 End: 04-23-2023 fluconazole (Diflucan) 150 mg tablet Indications: Vaginal yeast infection TAKE 1 TAB Q72 HOURS PRN 3 tablet 0 10/20/2022 04/23/2023 Discontinued (Therapy completed) lanolin 1000 mg/ml topical cream (2 sources) Start: 06-23-2024 End: 06-25-2024 500 ml magnesium sulfate 40 mg/ml injection (4 sources) Start: 06-22-2024 End: 06-23-2024 1,000 mg/hr (25 mL/hr), IntraVENous, Administer over 12 Hours, Continuous, Starting on Sun06/23/24 at 1600, For 3 days, Pre-Infusion: Assess baseline vital signs (blood pressure, pulse, pulse oximetry, respirations, and temperature), breath sounds, strict intake and output, neurologic status (deep tendon reflexes, presence or absence of clonus, level of consciousness (LOC), presence of headaches/visual disturbances, presence/absence of epigastric pain, and if applicable Heart Rate/Contractions (continuous monitoring). Loading Dose/Infusion: - Stay with the patient during the loading dose and the first hour of the infusion to monitor for adverse reactions. - Continuously monitor the patient's pulse oximetry. - Monitor the patient's vital signs, deep tendon reflexes, level of consciousness every 15 minutes for the first hour after the start of the loading dose, then every 30 minutes for 1 hour, then every 4 hours thereafter unless more frequent assessments are warranted based on the patient's condition. Notify care provider immediately of absent deep tendon reflexes, a urine output of less than 30 mL/hour, respirations of less than 10 breaths/minute, or an oxygen saturation level of less than 95% Grams to milligrams conversion table: 1 gram = 1000 mg 2 grams = 2000 mg 4 grams = 4000 mg 6 grams = 6000 mg 20 grams = 20,000 mg, Indications: Neuroprotection medroxyPROGESTERone (2 sources) Progestin inject 1 mL [...] by mouth. 10/02/2023 05/06/2024 Discontinued (Therapy completed) mineral oil 999 mg/ml oral solution (2 sources) Start: 06-23-2024 End: 06-23-2024 Starting on Sun06/23/24 at 1944, For 1 dose, Yonis Aponte: cabinet override nirmatrelvir-ritonavir (Paxlovid) 300 mg (150 mg x 2)-100 mg tablet therapy pack (1 source) Start: 09-20-2023 End: 10-10-2023 take 3 tablets by mouth twice daily nirmatrelvir-ritisaiah avir (Paxlovid) 300 mg (150 mg x [...] Start: 06-Nov-2022 End: 07-Nov-2022 Generic Substitution Allowed ondansetron ODT (Zofran-ODT) disintegrating tablet 4 mg (2 sources) Start: 06-23-2024 End: 06-25-2024 take 1 tablet by mouth every eight hours as needed for nausea and vomiting ondansetron ODT (Zofran-ODT) disintegrating tablet 4 mg oxytocin (Pitocin) 30 units in 500 mL infusion (4 sources) Start: 06-23-2024 End: 06-25-2024 125 deshaun-units/min (125 mL/hr), IntraVENous, Continuous, Starting on Sun06/23/24 at 2115, For Immediate Post Use Only. Give after delivery of placenta and initial 30 unit bolus. Bag 2 of 2: 125cc/hr (125 mu/min) for an additional infusion of 500cc (30 units). Start: 06-23-2024 End: 06-25-2024 30 Units, IntraVENous, at 30 mL/hr, Continuous, Starting on Sun06/23/24 at 2115, Post- use ONLY after delivery of baby/ excessive bleeding/ uterine atony. Bag 1 of 2: Bolus for bag to infuse at 999 ml/hour for 15 minutes (15 units in 250cc). After initial bolus then decrease rate to 250cc/hr for 1 hour. Then discontinue. oxytocin (Pitocin) 30 units infusion - Pyxis ADS Override Pull (2 sources) Start: 06-23-2024 End: 06-23-2024 Starting on Sun06/23/24 at 1549, For 1 dose, Alyce Almodovar: enriquetat override potassium chloride 20 meq powder for oral solution (2 sources) Start: 06-23-2024 End: 06-23-2024 take 1 [oz_av] by mouth once 40 mEq, Oral, Once, On Sun06/23/24 at 0315, For 1 dose, Dissolve each packet in 4 ounces of water = 5 mEq per 1 oz fluid., Indications: Hypokalemia predniSONE 10 mg oral tablet (2 sources) Start: 09-19-2023 End: 10-10-2023 take 3 tablets by mouth once daily predniSONE (Deltasone) 10 mg tablet Indications: Acute non-recurrent sinusitis, unspecified location Take 3 tablets (30 mg) by mouth once daily. 15 tablet 0 09/19/2023 10/10/2023 Discontinued (Therapy completed) vitamin tablet (2 sources) Start: 06-22-2024 End: 06-23-2024 take 1 tablet by mouth once daily 1 tablet, Oral, Daily, First dose on 06/22/24 at 2030 5 ml sodium chloride 9 mg/ml injection (2 sources) Start: 06-22-2024 End: 06-23-2024 10 mL, IntraVENous, Every 12 hours scheduled (2 times per day), First dose on 06/22/24 at 2100 witch blanco 500 mg/ml medicated pad (2 sources) Start: 06-23-2024 End: 06-25-2024 Topical, As needed, hemorrhoids, For perineal pain or discomfort, Starting on 06/23/24 at 2315, , Apply to perineal area. Patient is capable and may self administer at bedside. Problems Active Problems Problem Classification Problem Date Documented Date Episodic/Chronic Administrative/socia l admission (3 sources) Patient encounter status; Translations: [Other reasons for seeking consultation] 08-21-2023 Episodic Anxiety disorders (20 sources) Generalized anxiety disorder; Translations: [Generalized anxiety disorder] Onset: 08-24-2022 10-20-2022 Chronic Attention-deficit, conduct, and disruptive behavior disorders (9 sources) Attention deficit hyperactivity disorder; Translations: [Attention-deficit hyperactivity disorder, unspecified type] Onset: 02-22-2011 10-20-2022 Chronic Early or threatened labor (7 sources) labor without delivery; Translations: [ labor without delivery, unspecified trimester] Onset: 06-05-2024 Episodic Esophageal disorders (19 sources) Gastroesophageal reflux disease; Translations: [Esophageal reflux] Onset: 10-19-2016 10-20-2022 Chronic Other aftercare (2 sources) Encounter for follow-up examination after completed treatment for conditions other than malignant neoplasm; Translations: [Encounter for follow-up examination after completed treatment for conditions other than malignant neoplasm] Onset: 06-07-2022 Episodic Other aftercare (1 source) Other termite helper (current) drug therapy; Translations: [Other snf (current) drug therapy] Onset: 04-13-2023 Episodic Other complications of (1 source) Urinary tract infection in ; Translations: [Unspecified infection of urinary tract in , unspecified trimester] Onset: 06-05-2024 Episodic Other female genital disorders (2 sources) [...] gain; Translations: [Abnormal weight gain] Episodic Other and delivery including normal (5 sources) 06-04-2024 Episodic Other upper respiratory infections (11 sources) Acute pharyngitis, unspecified; Translations: [Acute sinusitis] Onset: 10-02-2022 Resolved: 05-06-2024 Episodic Residual codes; unclassified (6 sources) History finding; Translations: [Other specified conditions influencing health status] Episodic Residual codes; unclassified (2 sources) Pain, unspecified; Translations: [Pain, unspecified] Onset: 05-10-2022 Episodic Residual codes; unclassified (2 sources) Influenza vaccination declined; Translations: [Vaccination not carried out because of patient refusal] Onset: 06-14-2022 Episodic Residual codes; unclassified (1 source) Gestation period, 27 weeks; Translations: [27 weeks gestation of ] Onset: 06-05-2024 Episodic Spondylosis; intervertebral disc disorders; other back [...] pain in right lower quadrant 04-09-2023 Unclassified (5 sources) Onset: 11-27-2023 06-03-2024 Past or Other Problems Problem Classification Problem [...] [Screening for depression] Onset: 08-24-2022 Episodic Unclassified (10 sources) Onset: 10-03-2022 Resolved: 10-20-2022 10-20-2022 Unclassified (1 source) STOMACH PAIN AND VOMITTING 04-09-2023 Comment on above: STOMACH PAIN AND VOM ITTING Urinary tract infections (20 sources) Acute cystitis without hematuria; Translations: [Pyelonephritis] Onset: 02-14-2023 Resolved: 05-06-2024 Episodic Results Test Name Value Interpretation Reference Range Facility 42on 06-25-2024 42 In to follow up with NICU mom. Mom is pumping every 3 hours for 40-50cc EDITA. Mom has Spectra pump for home. Discharge today. Normal [facility] Progress Noteon 06-25-2024 Progress Note ---- -------- Attestation signed by Jenny Ponce MD at 06/25/2024 10:12 AM Hospital Care (Independent): I independently saw and evaluated the patient. I agree with the findings and plan of care as documented in the resident's note. PPD#2 from . Doing well. Meeting milestones. VSS. Ready for DC home. Breast pumping for baby boy in NICU, baby doing well on CPAP per mom. Has a breast pump for home. Is going to ask about Mehrdad rondon. Desires POP for PPBC, Rx sent. Offered follow up with our office PP vs her primary OB in [place] and she will follow up in [place]. DC teaching done. Briefly discussed CL measurements and vaginal progesterone with the next . The total time spent on patient discharge today was 25 minutes. -10 minutes of the visit face to face patient care for counseling/coordination of care -15 minutes chart review and documentation -------- VAGINAL DELIVERY POST DAY # 2 Luz Hinojosa, 23 y.o. This patient was seen & examined today. Complicated by: Patient Active Problem List Diagnosis contractions Patient doing well, resting comfortably in bed. Denies fevers, chills, shortness of breath, chest pain, nausea/vomiting, headaches, and vision changes. Lochia light. Voiding spontaneously. Passing flatus, present bowel movement. Ambulating well. Vital Signs: Vitals: 06/23/24 2206 06/23/24 2316 06/24/24 0814 06/24/242007 BP: 115/74 101/73 122/74 108/72 BP Location: Left arm Patient Position: Lying Pulse: 90 92 78 85 Resp: 16 16 18 16 Temp: 37.4 ?C (99.4 ?F) 37.2 ?C (99 ?F) 37.3 ?C (99.1 ?F) TempSrc: Temporal Temporal Temporal SpO2: 95% 96% 97% Weight: Height: Physical Exam: GENERAL APPEARANCE: alert, well-appearing ABDOMEN : soft, non-distended, appropriately tender to palpation, uterus 2 below umbilicus EXTREMITIES: no edema or tenderness NEUROLOGIC: A&Ox3, no focal neurological deficits Lab: Lab Results Component Value Date HGB 10.1 (L) 06/23/2024 Lab Results Component Value Date HCT 29.8 (L) 06/23/2024 LABOR DELIVERY ??? SCD's ONLY (labor through ambulation) SCD's PLUS Prophylactic Anticoagulation until discharge SCD's PLUS Prophylactic Anticoagulation for 6 weeks SCD's PLUS Therapeutic Anticoagulation for 6 weeks Vaginal Delivery [] BMI >= 40 kg/m2 Delivery All patients Vaginal Delivery [] BMI >= 40 kg/m2 AND [] Antepartum hospitalization >= 72 hours within the past month Delivery 1 Major Risk Factor: [] BMI >= 35 kg/m2 [] Low Risk Thrombophilia [] PPH+RBCs, IR, or operation [] Infection+Antibiotics [] Antepartum hospitalization >= 72 hours within the past month [] PMH: Sickle Cell, SLE, Cardiac Dz, Active IBD, Active Cancer, Nephrotic Syndrome OR 2 Minor Risk Factors: [] Multiple gestation [] Age > 40 [] PPH >= 1,000cc [] (+)FMH of VTE [] Smoker [] Preeclampsia [] BMI >= 40 kg/m2 AND [] Low Risk Thrombophilia OR ANY OF THE FOLLOWING: [] High Risk Thrombophilia without prior VTE [] Low Risk Thrombophilia with (+)FMH of VTE [] Any single prior VTE ANY OF THE FOLLOWING: [] Already on LMWH/UFH [] Multiple prior VTE [] High Risk Thrombophilia with prior VTE Low Risk Thrombophilia: FVL (heterozygous), Prothrombin (heterozygous), Protein C, Protein S High Risk Thrombophilia: FVL (homozygous), Prothrombin (homozygous), FVL+Prothrombin (heterozygous), Antithrombin III, APLS Assessment/Plan: Luz Hinojosa is PPD # 2 s/p Care - doing well, VSS - Male - breast feeding - contraception: Per Private Attending - encourage ambulation - VTE prophylaxis: Not Indicated Anxiety - mood and behavior appropriate - not on medications Disposition: Continue current care. Based on my clinical assessment, this patient is safe for self discharge (does not need transport by wheelchair) if she so chooses. Provider's Name: MD Arjun Samaniego MD 06/25/2024, 5:50 AM [facility] [id number] 06-24-2024 [id number] Date: 06/24/2024 Name: Luz Hinojosa : [address] [facility] Patient Information Primary Caregiver: Self Accompanied by/Relationship: S/O;Family Marital Status: Support System: SO/Family Sabianist/Cultural Factors: none Activities of Daily Living Communication: See demographics Living Arrangements Current Residence: Private residence Lives With: S/O; Family Support System: S/O; Family Income Information Income Source: Lives with , Not Employed Financial Resource Strain How hard is it for you to pay for the very basics like food, housing, medical care and heating? N/A Housing Stability In the last 12 months, was there a time when you did not have a steady place to sleep or slept in a usp (including now)? No Transportation Needs Has the lack of Transportation kept you from medical appointments? No In the past 12 months, has the lack of transportation kept you from meetings, work, or from getting things needed for daily living? No Food Insecurity Within the past 12 months, have you worried that your food would run out before you got the money to buy more? No Stress Do you feel stress - tense, restless, nervous, or anxious, or unable to sleep at night because you mind is troubled all the time? Mood stable Referral To Financial Resources: N/A Community Resources: Admission folder given upon admission to PP Unit Social Work: N/A CLP: N/A Medical Information Transport at 29/4 weeks. 1 Para 0. Vaginal delivery. in NICU Consults MFM and NICU. labor Discharge Plan Home or Community Resources: Admission folder given upon admission to PP unit Equipment: N/A Education Given: Discussion on the A. B. C's of safe sleep. Always place your baby on his or her back to sleep, use a firm sleep surface and your baby should not sleep in an adult bed, on a couch or chair. Keep soft objects, toys and loose bedding out of your baby's sleep area. Reviewed depression. It is common to have blues. This is a normal response to many of the hormonal changes, stress and lack of sleep that go with raising a and physically recovering from the . Don't hesitate to talk to your provider with any concerns. There are resources in your home going booklet. To help prevent germs from spreading to you and your baby, make sure everyone washes their hands before they handle your . Avoid crowds, and keep infant away from sick people, anyone who is sick with a cough or fever, including family members. Post- warning signs information reviewed with patient per nurse with discharge Additional Information: Patient is independent and has insurance. She is prepared with her baby supplies. To be discharged to home. Denies any concerns at this time. Mental Health Services: Resources in discharge folder Equipment: Developmental Delay: N/A Children's Services: N/A [facility] 42on 06-24-2024 42 Baby is in the NICU. Pt was very happy that she was able to pump 2 syringes without difficulty. Enc given. Pt has a new spectra pump in her room for home and would like to know how to use it. Baby was born at 29 wk 5 days. Reviewed pump settings and regimen. Pt feels the flanges are working for her and she was assessed in NICU. Questions answered about edita storage, chart reviewed and shown to pt. Pt shown how to use her spectra pump, enc to also view their videos and ask questions as needed. Enc to sterilize parts prior to first use. Reviewed pumping regimen, establishing a milk supply and importance of breast stimulation. Questions answered about her new spectra pump. Informed of availability in the hospital and bf mother's groups after dc. Verbalizes understanding. Normal [facility] Bacteria identified Cx Nom ( U)Ordered By: Rahel Laboy on 06-24-2024 Interpretation and review of laboratory results Normal [facility] - Microbiology an d Antimicrobial susceptibilityOrdered By: Rahel Laboy on 06-24-2024 Bacteria identified Cx Nom (U) No growth (<1,000 CFU/mL) [facility] Nursing Noteon 06-24-2024 Nursing Note Patient up to ambula te for this first time since delivery. Patient able to ambulate to the bathroom independently. Pads and underwear changed. Lazara care performed. Education provided about abnormal signs of bleeding and lazara care. No questions or concerns voiced. Patient ambulated back to bed without difficulty. Call light within reach. Normal [facility] Progress Noteon 06-24-2024 Progress Note Nutrition rescreen completed. Chart reviewed. Patient to be monitored and followed by the diet division order technician. MARRY Mathias Normal [facility] Progress Note VAGINAL DELIVERY POST DAY # 1 Luz Hinojosa, 23 y.o. This patient was seen & examined today. Complicated by: Patient Active Problem List Diagnosis contractions Patient doing well, resting comfortably in bed. Denies fevers, chills, shortness of breath, chest pain, nausea/vomiting, headaches, and vision changes. Lochia light. Voiding spontaneously. Passing flatus, absent bowel movement. Ambulating well. Vital Signs: Vitals: 06/23/24 2136 06/23/24 2151 06/23/24 2206 06/23/24 2316 BP: 116/71 108/68 115/74 101/73 Pulse: 90 91 90 92 Resp: 16 16 Temp: 37.4 ?C (99.4 ?F) TempSrc: Temporal SpO2: 95% Weight: Height: Physical Exam: GENERAL APPEARANCE: alert, well-appearing ABDOMEN : soft, non-distended, appropriately tender to palpation EXTREMITIES: no edema or tenderness NEUROLOGIC: A&Ox3, no focal neurological deficits Lab: Lab Results Component Value Date HGB 10.1 (L) 06/23/2024 Lab Results Component Value Date HCT 29.8 (L) 06/23/2024 LABOR DELIVERY ??? SCD's ONLY (labor through ambulation) SCD's PLUS Prophylactic Anticoagulation until discharge SCD's PLUS Prophylactic Anticoagulation for 6 weeks SCD's PLUS Therapeutic Anticoagulation for 6 weeks Vaginal Delivery [] BMI >= 40 kg/m2 Delivery All patients Vaginal Delivery [] BMI >= 40 kg/m2 AND [] Antepartum hospitalization >= 72 hours within the past month Delivery 1 Major Risk Factor: [] BMI >= 35 kg/m2 [] Low Risk Thrombophilia [] PPH+RBCs, IR, or operation [] Infection+Antibiotics [] Antepartum hospitalization >= 72 hours within the past month [] PMH: Sickle Cell, SLE, Cardiac Dz, Active IBD, Active Cancer, Nephrotic Syndrome OR 2 Minor Risk Factors: [] Multiple gestation [] Age > 40 [] PPH >= 1,000cc [] (+)FMH of VTE [] Smoker [] Preeclampsia [] BMI >= 40 kg/m2 AND [] Low Risk Thrombophilia OR ANY OF THE FOLLOWING: [] High Risk Thrombophilia without prior VTE [] Low Risk Thrombophilia with (+)FMH of VTE [] Any single prior VTE ANY OF THE FOLLOWING: [] Already on LMWH/UFH [] Multiple prior VTE [] High Risk Thrombophilia with prior VTE Low Risk Thrombophilia: FVL (heterozygous), Prothrombin (heterozygous), Protein C, Protein S High Risk Thrombophilia: FVL (homozygous), Prothrombin (homozygous), FVL+Prothrombin (heterozygous), Antithrombin III, APLS Assessment/Plan: Luz Hinojosa is PPD # 1 s/p Care - doing well, VSS - Male - - contraception: Per Private Attending - encourage ambulation - VTE prophylaxis: Not Indicated Anxiety - not on any medications - mood and behavior appropriate Disposition: Continue current care. Based on my clinical assessment, this patient is safe for self discharge (does not need transport by wheelchair) if she so chooses. Provider's Name: MD Arjun Samaniego MD 06/24/2024, 5:42 AM ATTENDING NOTE: I personally saw and evaluated the patient. I reviewed the care provided by the Resident including the patient's medical history, physical exam findings, diagnosis and treatment plan. I also agree with the documentation from the Resident unless otherwise indicated: Pt is doing well. Bboy in [facility] NICU. AFVSS. TIME SPENT ON PATIENT ENCOUNTER TODAY: Chart review and preparation: 10 minutes. [id number], documentation, and care coordination: 15 minutes. --> TOTAL= 25 MINUTES [facility] S. agalactiae DNA GIOVANNI+probe Ql (Unsp spec)on 06-24-2024 Group B Strep Screen Not detected Not Detected [facility] Interpretation and review of laboratory results Normal [facility] Methodology: real-ti me PCR [facility] 30on 06-23-2024 30 Problem: Antepartum Goal: Maintain as long as maternal and/or condition is stable 06/23/20242101 by Judie Ochoa RN Outcome: Completed 06/23/20242035 by Judie Ochoa RN Outcome: Progressing Normal [facility] 30 Problem: Antepartum Goal: Maintain as long as maternal and/or condition is stable Outcome: Progressing Flowsheets (Taken 06/22/20242199) Maintain as long as maternal and/or condition is stable: Maternal surveillance grit blaster uterine activity Medications as ordered Problem: Pain - Adult Goal: Verbalizes/displays adequate comfort level or baseline comfort level Outcome: Progressing Problem: Infection - Adult Goal: Absence of infection during hospitalization Outcome: Progressing Flowsheets (Taken 06/22/20242199) Absence of infection during hospitalization: Assess and monitor for signs and symptoms of infection Monitor lab/diagnostic results Monitor all insertion sites i.e., indwelling lines, tubes and drains Administer medications as ordered Instruct and encourage patient and family to use good hand hygiene technique Problem: Safety - Adult Goal: Free from fall injury Outcome: Progressing Flowsheets (Taken 06/22/2024 2252) Free from fall injury: Instruct family/caregiver on patient safety [facility] [id number] 06-23-2024 [id number] Date: 06/23/2024 Name: Luz Hinojosa : 2000 [facility] Information [facility] Patient Information Primary Caregiver: Self Accompanied by/Relationship: S/O;Family Marital Status: Single Support System: SO/Family Sabianist/Cultural Factors: none Activities of Daily Living Communication: See demographics Living Arrangements Current Residence: Private residence Lives With: S/O; Family Support System: S/O; Family Income Information Income Source: Not Employed Financial Resource Strain How hard is it for you to pay for the very basics like food, housing, medical care and heating? N/A Housing Stability In the last 12 months, was there a time when you did not have a steady place to sleep or slept in a usp (including now)? No Transportation Needs Has the lack of Transportation kept you from medical appointments? No In the past 12 months, has the lack of transportation kept you from meetings, work, or from getting things needed for daily living? No Food Insecurity Within the past 12 months, have you worried that your food would run out before you got the money to buy more? No Stress Do you feel stress - tense, restless, nervous, or anxious, or unable to sleep at night because you mind is troubled all the time? Mood stable Referral To Financial Resources: N/A Community Resources: PNU folder given upon admission to PNU Unit Social Work: N/A CLP: N/A Medical Information 23 year old admitted for contractions at 29/4 weeks. 1 Para 0. Hx of anxiety. NICU consult Transport Discharge Plan Home or Community Resources: PNU Admission folder given upon admission to unit Equipment: N/A Education Given: PNU admit folder and see Education Tab Additional Information: N/A Mental Health Services: N/A Developmental Delay: N/A Children's Services: N/A Normal [facility] Bacterial vaginosis and vagi nitis rRNA panel Probe (Vag fld)on 06-23-2024 Bacterial vaginosis Ql (Vag fld) [Interp] Not detected Not Detected [facility] C. glabrata DNA GIOVANNI+probe Ql (Vag fld) Not detected Not Detected [facility] Preethi sp DNA GIOVANNI+probe Ql (Vag fld) Not detected Not Detected [facility] Interpretation and review of laboratory results Normal [facility] T. vaginalis DNA GIOVANNI+probe Ql (Vag fld) Not detected Not Detected [facility] Methodology: real-ti me PCR A negative result does not preclude a possible infection. This assay can detect the Preethi species C. albicans, C. tropicalis, C. parapsilosis, and C. dubliniensis but does not differentiate among them. The assay also detects C. glabrata and C. krusei, but does not differentiate between them. Results should be interpreted in conjunction with other clinical data. This test has not been validated for use with specimens collected by patients at home. This test is intended for medical purposes only and is not valid for the evaluation of suspected sexual abuse or for other forensic purposes. [facility] C Urineon 06-23-2024 Bacteria identified Cx Nom (U) Microbiology PROCEDURE: Urine Culture [R1] SOURCE: U CleanCatch BODY SITE: COLLECTED DATE/TIME: 06/21/2024 16:47 EST RECEIVED DATE/TIME: 06/21/2024 20:52 EST START DATE/TIME: 06/21/2024 20:52 EST FREE TEXT SOURCE: Paulino CORRIGAN, Anika Bob MD, Anika Gomez FINAL REPORTS Final Report [] Verified Date/Time: 06/23/2024 07:13 EST 4,000 cfu/ml Mixed skin contaminants Performing Locations R1: This test was performed at: [facility], [address] [place] [address], [facility]- , , Normal [facility] Comment on above: Performed By: #### [id number] #### [facility] [address] [place] [address] CBC (HEMOGRAM)on 06-23-2024 Erythrocyte distribution width (RBC) [Ratio] 12.4 % Normal 11.5-15.0 [facility] Comment on above: Performed By: #### L [id number] ####Strike Operations Officer: JORDYN DUFFY ([id number])[address] Hematocrit (Bld) [Volume fraction] 29.8 % Low 35.0-47.0 [facility] Comment on above: Performed By: #### L [id number] ####Strike Operations Officer: JORDYN DUFFY ([id number])[facility] ([facility])[address] [place] [address] Hemoglobin (Bld) [Mass/Vol] 10.1 g/dL Low 11.7-16.0 [facility] Comment on above: Performed By: #### L [id number] ####Strike Operations Officer: JORDYN DUFFY ([id number])[facility])[address] [place] [address] MCH (RBC) [Entitic mass] 28.8 pg Normal 26.0-34.0 [facility] Comment on above: Performed By: #### L [id number] ####Strike Operations Officer: JORDYN DUFFY ([id number])[facility])[address] [place] [address] MCHC 33.9 % Normal 30.5-36.0 [facility] Comment on above: Performed By: #### L [id number] ####Strike Operations Officer: JORDYN DUFFY ([id number])[facility])[address] [place] [address] MCV (RBC) [Entitic vol] 84.9 fL Normal 77.0-99.0 S [facility] Comment on above: Performed By: #### L [id number] ####Strike Operations Officer: JORDYN DUFFY ([id number])[facility])[address] [place] [address] Platelet mean volume (Bld) [Entitic vol] 10.2 fL Normal 9.0-12.7 [facility] Comment on above: Performed By: #### L [id number] ####Strike Operations Officer: JORDYN DUFFY ([id number])[facility])[address] [place] [address] Platelets (Bld) [#/Vol] 284 10*3/uL Normal 140-440 [facility] Comment on above: Performed By: #### L [id number] ####Strike Operations Officer: JORDYN DUFFY ([id number])[facility])[address] [place] [address] RBC (Bld) [#/Vol] 3.51 10*6/uL Low 3.80-5.20 [facility] Comment on above: Performed By: #### L [id number] ####Strike Operations Officer: JORDYN DUFFY ([id number])[facility] ([facility])[address] [place] [address] WBC (Bld) [#/Vol] 19.1 10*3/uL High 3.6-10.7 [facility] Comment on above: Performed By: #### L [id number] ####Strike Operations Officer: JORDYN DUFFY ([id number])[facility] ([facility])[address] [place] [address] CBC panel Auto (Bld)on 06-23 Erythrocyte distribution width (RBC) [Ratio] 12.4 % 11.5 - 15.0 % [facility] Hematocrit (Bld) [Volume fraction] 29.8 % Low 35.0 - 47.0 % [facility] Hemoglobin (Bld) [Mass/Vol] 10.1 g/dL Low 11.7 - 16.0 g/dL [facility] Interpretation and review of laboratory results Abnormal [facility] MCH (RBC) [Entitic mass] 28.8 pg 26.0 - 34.0 pg [facility] MCHC (RBC) [Mass/Vol] 33.9 % 30.5 - 36.0 % [facility] MCV (RBC) [Entitic vol] 84.9 fL 77.0 - 99.0 fL [facility] [employer] Platelet mean volume (Bld) [Entitic vol] 10.2 fL 9.0 - 12.7 fL [facility] Platelets (Bld) [#/Vol] 284 10*3/uL 140 - 440 10*3/uL [facility] RBC (Bld) [#/Vol] 3.51 10*6/uL Low 3.80 - 5.2 0 10*6/uL [facility] WBC (Bld) [#/Vol] 19.1 10*3/uL High 3.6 - 10.7 10*3/uL [facility] Consulton 06-23-2024 Consult NICU Maternal Consul t Note Asked by Leatha Samayoa MD to consult on this patient due to 29 +5 weeks with labor . Based on the gestational age of 29w5d and estimated weight (not considering the impact of potential congenital infections or anomalies), the estimated survival is 90%. I have identified and discussed the following factors that are likely to improve and worsen this estimate. Discussed resuscitation and need for CPAP and possible intubation. Respiratory: Risk of Respiratory Distress Syndrome Benefits of steroids Cardiovascular: Risk of PDA Infection: Risk of infection Fluids/Nutrition: Mother's feeding preference - Breast Benefits of breast milk in all neonates Hematologic: Possible need for blood products Hyperbilirubinemia (Jaundice) IV Access: Peripheral IV or Umbilical Lines Neurologic: Neuro-development outcome Risk of IVH Risk of mental retardation and / or Cerebral Palsy NICU criteria for discharge discussed. All questions answered. Time Spent 40 minutes. Emily Teresa MD, 06/23/2024 Normal [facility] GROUP B STREP SCREEN BY PCRo n 06-23-2024 GROUP B STREP SCREEN BY PCR GROUP B STREP SCREEN BY PCR Reference Not Detected Not Detected ORDER COMMENTS: Methodology: real-time PCR Normal [facility] Comment on above: Performed By: #### L [id number] #### Strike Operations Officer: JORDYN DUFFY ([id number]) [address] Inpatient Clinical Summaryon 06-23-2024 Inpatient Clinical Summary Inpatient Clinical Summary [place] [address] Clinical Summary Person Information Name: LUZ HINOJOSA/[facility] Age: 23 Years : 2000 Sex: Female PCP: NONE, XXXX Marital Status: Phone: [phone] Race: White Ethnicity: Non- or Language: [place] Islander Visit Id: Visit Reason: contractions Speciality: Acuity: Enc Type: Observation Med Service: Obstetrics Arrival: 06/22/2024 06:49:36 Discharge: 06/22/2024 16:53:00 Dispo Type: Undefined [facility] Address: [address] [place], [place] [address] [id number] Provider Notes: Diagnosis: Problems Active (11/27/2023) Smoking Status: Former vaping or e-cigarette use Functional Status: Sensory Deficits: History of Falls: Mobility Assistance Prior to Admission: ADLs: Current Level of Assistance for Self-Care/Mobility: Cognitive Status: Allergies cloNIDine (Hives) Paxil (Insomnia) Laboratory or Other Results This Visit (last charted value for your 06/22/2024 visit) Chemistry 06/22/2024 11:04 AM U Benzodia Scr: NEGATIVE U Cocaine Scr: NEGATIVE U Opiate Scr: NEGATIVE U PCP Scr: NEGATIVE U Cannab Scr: NEGATIVE U Amph Scr: NEGATIVE U Mary Scr: NEGATIVE U Suboxone Scr: NEGATIVE U Fentanyl: NEGATIVE Ultrasound 06/22/2024 9:55 AM US Limited: US Limited Measurements: Height: 165.10 cm Weight: 65 kg Blood Pressure: 110 mmHg / 64 mmHg BMI: 23.85 kg/m2 Procedures No Procedures Documented Immunizations No Immunizations Documented This Visit Final Med List: multivitamin, ( Multivitamins) 1 Tablets By Mouth every day. Care Team Members: Attending Physician: Anika Bob MD Consulting Physician: Referring Physician: Follow up: Patient Education Information: Normal [facility] Inpatient Patient Summaryon 06-23-2024 Inpatient Patient Summary Inpatient Patient Summary [place] [id number] Patient Discharge Instructions PERSON INFORMATION Name: LUZ HINOJOSA Date of : 2000 Current Date: 06/23/2024 11:05:38 PHYSICIANS Admitting Physician: Anika Bob MD Primary Care Physician: NONE, XXXX PCP Phone Number: Comment: Discharge Diagnosis: Condition at Discharge: LUZ HINOJOSA has been given the following list of follow-up instructions, prescriptions, and patient education materials: PATIENT FOLLOW-UP INFORMATION Diet: Activity: Wound Care Instructions: Remove Your Dressing IN: Days Call Your Doctor For: IF UNABLE TO CONTACT YOUR PHYSICIAN AND YOU FEEL IT IS AN EMERGENCY, GO TO THE NEAREST EMERGENCY ROOM OR CALL 911 Home Treatment: Devices/Equipment: Special Services: Additional Instructions: Physician to provide the following pending test results: Follow up: In the event that this physician does not participate in your insurance network, please consult with your insurance company to find a nearby participating provider. Comment: ASHISH Perez BRIANNA, have received the attached patient education materials/instructions and have verbalized understanding. Patient Signature Date Clinican/Nurse Signature Date MEDICATION LIST Medications to Continue with No Changes Other Medications multivitamin, ( Multivitamins) 1 Tablets By Mouth every day. Last Dose: _Next Dose: _ Pharmacy Information: PATIENT EDUCATION INFORMATION Instructions: Medication Leaflets: You may receive a survey from [employer] asking you to rate your care experience. Your feedback is important and will help us understand what we do well and how we can improve the quality of care we provide to you, your loved ones and our community. It???s an honor to serve you. Patient Portal You may access all of your results and other medical record information on our secure patient portal. If you are not signed up for this yet, please contact [facility] at [phone] to get signed up today. COOPER Award Nomination The COOPER (Diseases Attacking the Immune SYstem) Award is an international recognition program that honors and celebrates the skillful, compassionate care nurses provide every day. Anyone who experiences or observes amazing care being provided by a nurse is encouraged to submit a nomination. To nominate your nurse, use your smart phone to scan the QR code below. Thank you for choosing [facility] Katelyn Romero [facility] Labor and Delivery Noteon Labor and Delivery Note -------- -------- Attestation with edits by Jenny Ponce MD at 06/25/2024 10:09 AM Procedures or Surgery: I was present for all ward elements of the procedure or surgery as described in the resident note. -------- Vaginal Delivery Note Department of Obstetrics and Gynecology Patient: Luz Hinojosa : 2000 Date of delivery: 06/23/2024 Pre-operative Diagnosis: Luz Goel at 29w5d 1. labor 2. Anxiety Post-operative Diagnosis: Live Born male Delivering Beauty Specialist & Real Estate Firm Manager(s): Dr. Ponce; Dr. Adams Infant Information: Information for the patient's : Onesimo Hinojosa Luz [[id number]] Information for the patient's : Onesimo Hinojosa [[id number]] Description: normal Meconium Noted: No Anesthesia: epidural anesthesia Complications: None Application and Delivery: Luz Goel at 29w5d admitted for threatened labor as a transfer from [place]. She progressed with cervical dilation despite tocolysis. She was moved to OR for delivery at 10 cm dilation and AROM was preformed. She pushed for 10 minutes prior to delivery. She was known to be GBS unknown and received Penicillin G prophylaxis. After pushing with contractions the head delivered Cephalic, right occiput anterior over an intact perineum. A nuchal cord was not present. The anterior, then posterior shoulder delivered easily and atraumatically followed by the rest of the infant. The infant was placed on the maternal abdomen and attended by the RN for evaluation. The was stimulated and dried. The cord was clamped and cut. The delivery of the placenta was spontaneous and appeared intact. Pitocin was started. The vagina was swept of all clots and debris. The perineum and vagina were evaluated. No lacerations were found.. All counts were correct. Mother and baby tolerated procedure well. No uterotonics were required during delivery. EBL: 50ml QBL: Quantitative Blood Loss (mL): 50 mL VTE Prophylaxis: Not Indicated LABOR DELIVERY ??? SCD's ONLY (labor through ambulation) SCD's PLUS Prophylactic Anticoagulation until discharge SCD's PLUS Prophylactic Anticoagulation for 6 weeks SCD's PLUS Therapeutic Anticoagulation for 6 weeks Vaginal Delivery [] BMI >= 40 kg/m2 Delivery All patients Vaginal Delivery [] BMI >= 40 kg/m2 AND [] Antepartum hospitalization >= 72 hours within the past month Delivery 1 Major Risk Factor: [] BMI >= 35 kg/m2 [] Low Risk Thrombophilia [] PPH+RBCs, IR, or operation [] Infection+Antibiotics [] Antepartum hospitalization >= 72 hours within the past month [] PMH: Sickle Cell, SLE, Cardiac Dz, Active IBD, Active Cancer, Nephrotic Syndrome OR 2 Minor Risk Factors: [] Multiple gestation [] Age > 40 [] PPH >= 1,000cc [] (+)FMH of VTE [] Smoker [] Preeclampsia [] BMI >= 40 kg/m2 AND [] Low Risk Thrombophilia OR ANY OF THE FOLLOWING: [] High Risk Thrombophilia without prior VTE [] Low Risk Thrombophilia with (+)FMH of VTE [] Any single prior VTE ANY OF THE FOLLOWING: [] Already on LMWH/UFH [] Multiple prior VTE [] High Risk Thrombophilia with prior VTE Low Risk Thrombophilia: FVL (heterozygous), Prothrombin (heterozygous), Protein C, Protein S High Risk Thrombophilia: FVL (homozygous), Prothrombin (homozygous), FVL+Prothrombin (heterozygous), Antithrombin III, APLS Delivery Summary: Specimen: Cord blood and Cord gases Blood Type and Rh: A Rubella Immunity Status: No results found for: RUBELLAIGGQT Malu Adams MD 06/23/2024, 9:34 PM OB Delivery Note 06/23/2024 Luz Ashish 23 y.o. Gestational Age: 29w5d /Para: Estimated Blood Loss: Delivery Blood Loss Intrapartum & : 06/23/24 0749 - 06/23/242132 Delivery Admission: 06/22/24 1832 - 06/23/242132 Intrapartum & Delivery Admission Quantitative Blood Loss (mL) Hospital Encounter 50 mL 50 mL Total 50 mL 50 mL Quantitative Blood Loss: 50 mL Onesimo Hinojosa [[id number]] Labor Events labor?: Yes steroids: Full Course Antibiotics received during labor?: Yes Rupture of Membranes Rupture date/time: 06/23/241937 ReadOnly Edit in Flowsheets Rupture type: Artificial Fluid color: Clear Fluid odor: None Labor Details Prior : No Labor type: Spontaneous Onset of Labor First cervical ripening date/time: Induction date/time: Augmentation date/time: Labor complications: None Anesthesia Method: Epidural Labor Event Times Labor onset date/time: Dilation complete date/time: 06/23/241909 EST Start pushing date/time: Decision date/time () Delivery () (more content not included)... Normal [facility] N. gonorrhoeae DNA GIOVANNI+probe Ql (Cervical mucus)on 06-23-2024 C. trachomatis DNA GIOVANNI+probe Ql (Unsp spec) Not detected Not Detected [facility] Interpretation and review of laboratory results Normal [facility] N gonorrhoeae, DNA Probe Not detected Not Detected [facility] Methodology: real-ti me PCR This test is intended for medical purposes only and is not intended for the evaluation of suspected sexual abuse or for other forensic purposes. In certain contexts, culture may be required to meet applicable laws and regulations for diagnosis of C. trachomatis and N. gonorrhoeae infections. Per 2014 CDC recommmendations, this test does not include confirmation of positive results by an alternative nucleic acid target. A negative result does not exclude the possibility of infection. A result of invalid indicates that a new specimen should be collected if clinically indicated. [facility] Progress Noteon 06-23-2024 Progress Note Following SVE perfor med by Dr. Tejada where patient made change from 2/80/-3 to 5/90/-2 with bulging bag, confirmed vertex positioning on BSUS. Magnesium sulfate restarted at this time. PCN running, patient has now received one dose of rescue steriods. Will discontinue tocolytics per Dr. Roca's recommendations. Dr. Ponce and Dr. Roca both updated and aware. Plan to move patient to labor floor and patient may request epidural. FLAT KNITTER updated and aware. [facility] Progress Note SVE performed in set ting of continued CTX and abdominal pain. SVE unchanged at 2/80/-3. Will continue to monitor closely. [facility] Progress Note ---- -------- Attestation signed by Juliet Roca MD at 06/23/2024 1:55 PM M ATTENDING I have personally obtained a history and examined the patient with Dr. Tejada. I agree with the assessment and plan as documented in the resident's note. The patient is a 23 y.o. 29w5d now HD#2, admitted overnight as transfer from Dr. Paulino oPzo for PTL. Had episode 2 weeks ago of contractions and received BMZ at that time. Presented yesterday with bloody show and contractions. Cervix 2/80/-3 and CTXs q7min. Upon arrival, started Procardia for tocolysis, adjusted mag to 1g/hr for AUTOMATIC HEMMER, and started PCN G for GBS prophylaxis. Rescue BMZ course initiated. Today she complains of continued intermittent contractions- some more painful than others. She is without other OB complaints and reports good movement. Vitals: 06/23/24 0900 06/23/24 1100 06/23/24 1150 06/23/24 1300 BP: 110/70 BP Location: Patient Position: Pulse: 107 100 (!) 124 Resp: Temp: TempSrc: SpO2: Weight: Height: Alert and oriented, NAD Gravid nontender abdomen Cervix rechecked on rounds: 2/80% Current Monitoring Plan: CEFM NST NST: Reactive, Cat 1 Ultrasound: 1323g (42%), Ant placenta, CHEMA 11cm and anatomy limited but normal. Cephalic Plan: Discussed plan with patient regarding PTL and rationale for therapies. Discussed tocolysis with procardia x 48hrs, mag x 12 hrs for AUTOMATIC HEMMER, and PCN G for GBS prophylaxis until we have GBS results. Rescue BMZ and rationale explained. NICU consult today. Continue inpatient. 35 minutes spent in total floor time today for review of records, patient interview and exam, documentation and coordination of care with care teams. Juliet Roca MD -------- Maternal Medicine Service Resident Progress Note 06/23/2024 6:37 AM 06/22/2024 Hospital Day: 2 Luz Hinojosa, 23 y.o. 29w5d Patient has been seen and examined. Pt complains of continued irregular contractions overnight, was able to sleep, she is unsure how often she is jacqueline due to sleeping off and on throughout the night. Positive movement Negative vaginal bleeding Negative LOF Positive Contractions Vitals: 06/22/24 2315 06/22/24 2328 06/22/24 2346 06/23/24 0100 BP: 121/71 114/68 118/71 BP Location: Patient Position: Pulse: 102 100 Resp: Temp: TempSrc: SpO2: Weight: Height: FHT: 120, moderate variability Accels: present Decels: absent Contractions: Irregular Physical Exam: Gen: NAD HEENT: Normocephalic, Atraumatic, EOMI, MMM Resp: No increased WOB Abd: soft, gravid, NTND, no rebound, no guarding. BS negative fundal tenderness Ext: No LE edema, no calf tenderness or swelling Medications: Current Facility-Administered Medications Medication Dose Route Frequency Provider Last Rate Last Admin acetaminophen (Tylenol) tablet 650 mg 650 mg Oral q4h PRN Malu Adams MD betamethasone acetate-betamethasone sodium phosphate (Celestone) injection 12 mg 12 mg IntraMUSCular q24h Malu Adams MD 12 mg at 06/22/24 2223 calcium gluconate 10 % injection 1 g 1 g IntraVENous PRN Malu Adams MD influenza vaccine tiss-cult subunt (Flucelvax) STANDARD-DOSE injection 0.5 mL 0.5 mL IntraMUSCular Once Malu Adams MD magnesium sulfate 20 GM/500ML infusion 1,000 mg/hr IntraVENous Continuous Malu Adams MD 25 mL/hr at 06/22/24 2315 1,000 mg/hr at 06/22/24 2315 NIFEdipine (Procardia) capsule 20 mg 20 mg Oral q6h Malu Adams MD 20 mg at 06/23/24 0609 ondansetron ODT (Zofran-ODT) disintegrating tablet 4 mg 4 mg Oral q8h PRN Malu Adams MD 4 mg at 06/22/24 2219 Or ondansetron (Zofran) injection 4 mg 4 mg IntraVENous q6h PRN Malu Adams MD penicillin G potassium IVPB 2.5 million units in dextrose 5 % 100 mL 2.5 Million Units IntraVENous Q4H Malu Adams MD 0 mL/hr at 06/23/24 0314 2.5 Million Units at 06/23/24 0607 vitamin tablet 1 tablet Oral Daily Malu Adams MD 1 tablet at 06/22/24 2348 sodium chloride 0.9 % infusion 5-250 mL/hr IntraVENous PRN Malu Adams MD sodium chloride 0.9% (NS) flush 10 mL 10 mL IntraVENous 2 times per day Malu Adams MD 10 mL at 06/22/242099 sodium chloride 0.9% (NS) flush 10 mL 10 mL IntraVENous PRN Malu Adams MD Assessment/Plan: Luz Hinojosa is a 23 y.o. female 29w5d Labor - History of contractions secondary to UTI 1 month prior. 1 cm dilated at that time - Administered BMZ x2 on . - Presented on 06/22 for regular contractions q5 min that were painful. 2/50/-3 on SVE at that time. Given Terbutaline, IR procardia x1, magnesium parada (more content not included)... Normal [facility] US OB DETAIL ANATOMY T RANSABDOMINALon 06-23-2024 US OB DETAIL ANATOMY TRANSABDOMINAL OBSTETRICS REPORT (Signed Final 06/23/2024 01:22 pm) PATIENT INFO: ID #: [id number] : [birth year] (23 yrs)(F) Name: LUZ HINOJOSA Visit Date: 06/23/2024 11:18 am PERFORMED BY: Attending: Juliet Roca Performed By: Yonis Allen Referred By: GAVI TEJADA Location: [facility] IP Visit Type: Inpatient - Hospital SERVICE(S) PROVIDED: US Level II complete (Targeted OB) 03828 INDICATIONS: TPTL VITAL SIGNS: Weight (lb): 143 Height: 5'5 BMI: 23.79 EVALUATION: Num Of Fetuses: 1 Heart Rate(bpm): 125 Cardiac Activity: Regular rhythm Lie: Longitudinal Presentation: Cephalic Placenta: Anterior Amniotic Fluid CHEMA FV: Within normal limits CHEMA Sum(cm) %Tile Largest Pocket(cm) 11.02 21 4.31 RUQ(cm) RLQ(cm) LUQ(cm) LLQ(cm) 3.52 1.18 4.31 2.01 BIOMETRY: BPD: 72.6 mm G.Age: 29w 1d 21 % OFD: 91.7 mm HC: 266 mm G.Age: 29w 0d 6 % AC: 250.4 mm G.Age: 29w 2d 30 % FL: 54.2 mm G.Age: 28w 5d 12 % HUM: 47.8 mm G.Age: 28w 0d 17 % LV: 5.55 mm CI: 79.2 % 70 - 86 FL/HC: 20.4 % 19.2 - 21.4 HC/AC: 1.06 0.99 - 1.21 FL/BPD: 74.7 % 71 - 87 FL/AC: 21.6 % 20 - 24 Est. FW: 1323 gm 2 lb 15 oz 42 % GESTATIONAL AGE: Clinical JOANIE: 29w 5d JOANIE: 09/03/24 U/S Today: 29w 0d JOANIE: 09/08/24 Best: 29w 5d Det. By: Clinical JOANIE JOANIE: 09/03/24 TARGETED ANATOMY: Central Nervous System Calvarium/Cranial V.: Normal appearance Intracranial Natasha: Normal appearance Cavum: Suboptimal views Parenchyma: Suboptimal Views Lateral Ventricles: Suboptimal views Choroid Plexus: Normal appearance Cereb./Vermis: Suboptimal views Cisterna Magna: Suboptimal views Corpus Callosum: Normal appearance Midline Falx: Normal appearance Spine Cervical: Normal appearance Thoracic: Normal appearance Lumbar: Normal appearance Sacral: Normal appearance Shape/Curvature: Normal appearance Head/Neck Face: Suboptimal views Lips: Suboptimal views Neck: Normal appearance Nasal Bone: Suboptimal views Palate: Suboptimal views Profile: Suboptimal views Orbits/Eyes: Suboptimal views Mandible: Suboptimal views Maxilla: Suboptimal views Thorax Thoracic Contour: Normal appearance Lungs: Normal appearance 4 Chamber View: Normal appearance Cardiac Activity: Normal Cardiac Rhythm: Normal Cardiac Situs: Normal appearance Rt Outflow Tract: Normal appearance Lt Outflow Tract: Normal appearance Aortic Arch: Normal appearance Ductal Arch: Normal appearance SVC: Normal appearance Interventr. Septum: Suboptimal views Cardiac [place]: Normal appearance Diaphragm: Normal appearance 3 Vessel View: Normal appearance 3 V Trachea View: Suboptimal views IVC: Normal Appearance Crossing: Suboptimal views Abdomen Ventral Wall: Normal appearance Cord Insertion: Normal appearance Situs: Normal appearance Stomach: Normal appearance Lt Kidney: Normal appearance Rt Kidney: Normal appearance Bladder: Normal appearance Extremities Lt Humerus: Normal appearance Rt Humerus: Normal appearance Lt Forearm: Normal appearance Rt Forearm: Normal appearance Lt Hand: Suboptimal views Rt Hand: Suboptimal views Lt Femur: Normal appearance Rt Femur: Normal appearance Lt Lower Leg: Normal appearance Rt Lower Leg: Normal appearance Lt Foot: Normal appearance Rt Foot: Normal appearance Other Umbilical Cord: Normal 3-vessel Genitalia: Suboptimal views RECOMMENDATIONS: See inpatient chart. Ultrasound is not diagnostic of chromosomal aneuploidy and does not detect all subtle defects. Normal ultrasound findings do not guarantee normal outcomes. Juliet Roca Electronically Signed Final Report 06/23/2024 01:22 pm IMPRESSION: 1. [place] live intrauterine at 29w 5d. 2. Normal anatomy, with limitations as noted above. 3. biometry consistent with clinically established JOANIE. EFW is 1323g (42%). 4. Normal Anter (more content not included)... Normal [facility] US for pregnancyon 4 1. [place] live intrauterine at 29w 5d. 2. Normal anatomy, with limitations as noted above. 3. biometry consistent with clinically established JOANIE. EFW is 1323g (42%). 4. Normal Anterior placenta. 5. Amniotic fluid index is normal, 11cm. [facility] OBSTETRICS REPORT (Signed Final 06/23/2024 01:22 pm) PATIENT INFO: ID #: [id number] : [birth year] (23 yrs)(F) Name: LUZ HINOJOSA Visit Date: 06/23/2024 11:18 am PERFORMED BY: Attending: Juliet Roca Performed By: Yonis Allen Referred By: GAVI TEJADA Location: [facility] IP Visit Type: Inpatient - Hospital SERVICE(S) PROVIDED: Level II complete (Targeted OB) [id number] INDICATIONS: TPTL VITAL SIGNS: Weight (lb): 143 Height: 5'5 BMI: 23.79 EVALUATION: Num Of Fetuses: 1 Heart Rate(bpm): 125 Cardiac Activity: Regular rhythm Lie: Longitudinal Presentation: Cephalic Placenta: Anterior Amniotic Fluid CHEMA FV: Within normal limits CHEMA Sum(cm) %Tile Largest Pocket(cm) 11.02 21 4.31 RUQ(cm) RLQ(cm) LUQ(cm) LLQ(cm) 3.52 1.18 4.31 2.01 BIOMETRY: BPD: 72.6 mm G.Age: 29w 1d 21 % OFD: 91.7 mm HC: 266 mm G.Age: 29w 0d 6 % AC: 250.4 mm G.Age: 29w 2d 30 % FL: 54.2 mm G.Age: 28w 5d 12 % HUM: 47.8 mm G.Age: 28w 0d 17 % LV: 5.55 mm CI: 79.2 % 70 - 86 FL/HC: 20.4 % 19.2 - 21.4 HC/AC: 1.06 0.99 - 1.21 FL/BPD: 74.7 % 71 - 87 FL/AC: 21.6 % 20 - 24 Est. FW: 1323 gm 2 lb 15 oz 42 % GESTATIONAL AGE: Clinical JOANIE: 29w 5d JOANIE: 09/03/24 U/S Today: 29w 0d JOANIE: 09/08/24 Best: 29w 5d Det. By: Clinical JOANIE JOANIE: 09/03/24 TARGETED ANATOMY: Central Nervous System Calvarium/Cranial V.: Normal appearance Intracranial Natasha: Normal appearance Cavum: Suboptimal views Parenchyma: Suboptimal Views Lateral Ventricles: Suboptimal views Choroid Plexus: Normal appearance Cereb./Vermis: Suboptimal views Cisterna Magna: Suboptimal views Corpus Callosum: Normal appearance Midline Falx: Normal appearance Spine Cervical: Normal appearance Thoracic: Normal appearance Lumbar: Normal appearance Sacral: Normal appearance Shape/Curvature: Normal appearance Head/Neck Face: Suboptimal views Lips: Suboptimal views Neck: Normal appearance Nasal Bone: Suboptimal views Palate: Suboptimal views Profile: Suboptimal views Orbits/Eyes: Suboptimal views Mandible: Suboptimal views Maxilla: Suboptimal views Thorax Thoracic Contour: Normal appearance Lungs: Normal appearance 4 Chamber View: Normal appearance Cardiac Activity: Normal Cardiac Rhythm: Normal Cardiac Situs: Normal appearance Rt Outflow Tract: Normal appearance Lt Outflow Tract: Normal appearance Aortic Arch: Normal appearance Ductal Arch: Normal appearance SVC: Normal appearance Interventr. Septum: Suboptimal views Cardiac [place]: Normal appearance Diaphragm: Normal appearance 3 Vessel View: Normal appearance 3 V Trachea View: Suboptimal views IVC: Normal Appearance Crossing: Suboptimal views Abdomen Ventral Wall: Normal appearance Cord Insertion: Normal appearance Situs: Normal appearance Stomach: Normal appearance Lt Kidney: Normal appearance Rt Kidney: Normal appearance Bladder: Normal appearance Extremities Lt Humerus: Normal appearance Rt Humerus: Normal appearance Lt Forearm: Normal appearance (more content not included)... [facility] Juliet Roca MD - 06/23/2024 OBSTETRICS REPORT (Signed Final 06/23/2024 01:22 pm) PATIENT INFO: ID #: [id number] : [birth year] (23 yrs)(F) Name: LUZ HINOJOSA Visit Date: 06/23/2024 11:18 am PERFORMED BY: Attending: Juliet Roca Performed By: Yonis Allen Referred By: GAVI TEJADA Location: [facility] IP Visit Type: Inpatient - Hospital SERVICE(S) PROVIDED: US Level II complete (Targeted OB) [id number] INDICATIONS: TPTL VITAL SIGNS: Weight (lb): 143 Height: 5'5 BMI: 23.79 EVALUATION: Num Of Fetuses: 1 Heart Rate(bpm): 125 Cardiac Activity: Regular rhythm Lie: Longitudinal Presentation: Cephalic Placenta: Anterior Amniotic Fluid CHEMA FV: Within normal limits CHEMA Sum(cm) %Tile Largest Pocket(cm) 11.02 21 4.31 RUQ(cm) RLQ(cm) LUQ(cm) LLQ(cm) 3.52 1.18 4.31 2.01 BIOMETRY: BPD: 72.6 mm G.Age: 29w 1d 21 % OFD: 91.7 mm HC: 266 mm G.Age: 29w 0d 6 % AC: 250.4 mm G.Age: 29w 2d 30 % FL: 54.2 mm G.Age: 28w 5d 12 % HUM: 47.8 mm G.Age: 28w 0d 17 % LV: 5.55 mm CI: 79.2 % 70 - 86 FL/HC: 20.4 % 19.2 - 21.4 HC/AC: 1.06 0.99 - 1.21 FL/BPD: 74.7 % 71 - 87 FL/AC: 21.6 % 20 - 24 Est. FW: 1323 gm 2 lb 15 oz 42 % GESTATIONAL AGE: Clinical JOANIE: 29w 5d JOANIE: 09/03/24 U/S Today: 29w 0d JOANIE: 09/08/24 Best: 29w 5d Det. By: Clinical JOANIE JOANIE: 09/03/24 TARGETED ANATOMY: Central Nervous System Calvarium/Cranial V.: Normal appearance Intracranial Natasha: Normal appearance Cavum: Suboptimal views Parenchyma: Suboptimal Views Lateral Ventricles: Suboptimal views Choroid Plexus: Normal appearance Cereb./Vermis: Suboptimal views Cisterna Magna: Suboptimal views Corpus Callosum: Normal appearance Midline Falx: Normal appearance Spine Cervical: Normal appearance Thoracic: Normal appearance Lumbar: Normal appearance Sacral: Normal appearance Shape/Curvature: Normal appearance Head/Neck Face: Suboptimal views Lips: Suboptimal views Neck: Normal appearance Nasal Bone: Suboptimal views Palate: Suboptimal views Profile: Suboptimal views Orbits/Eyes: Suboptimal views Mandible: Suboptimal views Maxilla: Suboptimal views Thorax Thoracic Contour: Normal appearance Lungs: Normal appearance 4 Chamber View: Normal appearance Cardiac Activity: Normal Cardiac Rhythm: Normal Cardiac Situs: Normal appearance Rt Outflow Tract: Normal appearance Lt Outflow Tract: Normal appearance Aortic Arch: Normal appearance Ductal Arch: Normal appearance SVC: Normal appearance Interventr. Septum: Suboptimal views Cardiac [place]: Normal appearance Diaphragm: Normal appearance 3 Vessel View: Normal appearance 3 V Trachea View: Suboptimal views IVC: Normal Appearance Crossing: Suboptimal views Abdomen Ventral Wall: Normal appearance Cord Insertion: Normal appearance Situs: Normal appearance Stomach: Normal appearance Lt Kidney: Normal appearance Rt Kidney: Normal appearance Bladder: Normal appearance Extremities Lt Humerus: Normal appearance Rt Humerus: Normal appearance Lt Forearm: Normal appearance Rt Forearm: Normal appearance Lt Hand: Suboptimal views Rt Hand: Suboptimal views Lt Femur: Normal appearance Rt Femur: Normal appearance Lt Lower Leg: Normal appearance Rt Lower Leg: Normal appearance Lt Foot: Normal appearance Rt Foot: Normal appearance Other Umbilical Cord: Normal 3-vessel Genitalia: Suboptimal views RECOMMENDATIONS: See inpatient chart. Ultrasound is not diagnostic of chromosomal aneuploidy and does not detect all subtle defects. Normal ultrasound findings do not guarantee normal outcomes. Juliet Roca Electronically Signed Final Report 06/23/2024 01:22 pm IMPRESSION: 1. [place] live intrauterine at 29w 5d. 2. Normal anatomy, with limitations a (more content not included)... [facility] Radiology Study observation (narrative) [facility] US for pregnancyOrdered By: Juliet Roca on 06-23-2024 [facility] Work Phone: ABO and Rh group Confirm Nom (Bld)on 06-22-2024 ABO group Nom (Bld) A [facility] D Ag Ql (RBC) Positive [facility] BLOOD TYPE AND SCREEN GELon 06-22-2024 ABO GROUPING A Normal [facility] Comment on above: Order Comment: HOLD. Specimen is valid for 3 days - nurse to verify valid specimen Performed By: #### L [id number] #### Strike Operations Officer: JORDYN DUFFY ([id number]) [facility] BLOOD [facility] ([facility]) [address] [place] [address] RH TYPE IN BLOOD Positive Normal [facility] Comment on above: Order Comment: HOLD. Specimen is valid for 3 days - nurse to verify valid specimen Performed By: #### L [id number] #### Strike Operations Officer: JORDYN DUFFY ([id number]) [facility] BLOOD [facility] ([facility]) [address] [place] [address] Blood type and Crossmatch pa maurice (Bld)on 06-22-2024 ABO group Nom (Bld) A [facility] Blood group antibody screen GEL Ql Negative [facility] D Ag Ql (RBC) Positive [facility] Buprenorphine Scr Uron 06-22 Buprenorphine Ql (U) Negative Normal NEGATIVE [facility] Comment on above: Result Comment: Nega tive Cutoff: <5 ng/mL These drug screen results are to be used for medical (i.e., treatment) purposes only. Unconfirmed drug screening results must not be used for non-medical purposes (e.g., employment testing, legal testing). Performed By: #### [id number] #### Nick [facility] [address] [place] [address] CHEMISTRYOrdered By: SYSTEM SYSTEM on 06-22-2024 Amphetamines Screen method >1000 ng/mL Ql (U) NEGATIVE 6 (06/22/24 11:04 AM) Normal NEGATIVE [facility] Comment on above: Interpretive Data: N egative Cutoff: <1000 ng/mL Barbiturates Screen Ql (U) NEGATIVE 7 (06/22/24 11:04 AM) Normal NEGATIVE [facility]isol Chem Comment on above: Interpretive Data: N egative Cutoff: <200 ng/mL Benzodiazepines Ql (U) NEGATIVE 1 (06/22/24 11:04 AM) Normal NEGATIVE [facility]isol Chem Comment on above: Interpretive Data: N egative Cutoff: <200 ng/mL Buprenorphine Ql (U) NEGATIVE 9 (06/22/24 11:04 AM) Normal NEGATIVE Remisol Chem Comment on above: Interpretive Data: N egative Cutoff: <5 ng/mL These drug screen results are to be used for medical (i.e., treatment) purposes only. Unconfirmed drug screening results must not be used for non-medical purposes (e.g., employment testing, legal testing). Cannabinoids Screen Ql (U) NEGATIVE 5 (06/22/24 11:04 AM) Normal NEGATIVE Remisol Chem Comment on above: Interpretive Data: N egative Cutoff: <50 ng/mL Cocaine Ql (U) NEGATIVE 2 (06/22/24 11:04 AM) Normal NEGATIVE Remisol Chem Comment on above: Interpretive Data: N egative Cutoff: <300 ng/mL Opiates Screen Ql (U) NEGATIVE 3 (06/22/24 11:04 AM) Normal NEGATIVE Remisol Chem Comment on above: Interpretive Data: N egative Cutoff: <300 ng/mL Phencyclidine Screen method >25 ng/mL Ql (U) NEGATIVE 4 (06/22/24 11:04 AM) Normal NEGATIVE Remisol Chem Comment on above: Interpretive Data: N egative Cutoff: <25 ng/mL These drug screen results are to be used for medical (i.e., treatment) purposes only. Unconfirmed drug screening results must not be used for non-medical purposes (e.g., employment testing, legal testing). U Fentanyl NEGATIVE 8 (06/22/24 11:04 AM) Normal NEGATIVE Remisol Chem Comment on above: Interpretive Data: N egative Cutoff: <5 ng/mL These drug screen results are to be used for medical (i.e., treatment) purposes only. Unconfirmed drug screening results must not be used for non-medical purposes (e.g., employment testing, legal testing). CHLAMYDIA/GONORRHEAon 2023 CHLAMYDIA/GONORRHEA NEISSERIA GONORRHOEA E DNA PROBE Reference Not Detected Not Detected CHLAMYDIA TRACHOMATIS DNA PROBE Reference Not Detected Not Detected ORDER COMMENTS: Methodology: real-time PCR This test is intended for medical purposes only and is not intended for the evaluation of suspected sexual abuse or for other forensic purposes. In certain contexts, culture may be required to meet applicable laws and regulations for diagnosis of C. trachomatis and N. gonorrhoeae infections. Per 2014 CDC recommmendations, this test does not include confirmation of positive results by an alternative nucleic acid target. A negative result does not exclude the possibility of infection. A result of invalid indicates that a new specimen should be collected if clinically indicated. Normal [facility] Comment on above: Performed By: #### L [id number] ####Strike Operations Officer: JORDYN DUFFY ([id number])[facility])[address] [place] [address] COMPREHENSIVE METABOLIC PANE [place] 06-22-2024 Albumin [Mass/Vol] 3.2 g/dL Low 3.5-5.0 [facility] Comment on above: Performed By: #### L [id number], [id number] ####Strike Operations Officer: JORDYN DUFFY ([id number])[facility])[address] [place] [address] ALP [Catalytic activity/Vol] 92 U/L Normal 38-126 [facility] Comment on above: Performed By: #### L AB17, [id number] ####Strike Operations Officer: JORDYN DUFFY ([phone])[facility])[address] [place] [address] ALT [Catalytic activity/Vol] 9 U/L Normal 0-34 [facility] Comment on above: Performed By: #### L AB17, [id number] ####Strike Operations Officer: JORDYN [id number])[address] Anion gap [Moles/Vol] 9 mmol/L Normal 3-13 [facility] Comment on above: Performed By: #### L AB17, [id number] ####Strike Operations Officer: JORDYN [id number])[facility] ([facility])[address] [place] [address] [place] AST [Catalytic activity/Vol] 16 U/L Normal 15-46 [facility] Comment on above: Performed By: #### L [id number], [id number] ####Strike Operations Officer: JORDYN DUFFY ([id number])[facility] ([facility])[address] [place] [address] [place] Bilirubin [Mass/Vol] 0.2 mg/dL Normal 0.2-1.3 [facility] Comment on above: Performed By: #### L AB17, [id number] ####Strike Operations Officer: JORDYN DUFFY ([id number])[facility] ([facility])[address] [place] [address] Calcium [Mass/Vol] 6.8 mg/dL Low 8.4-10.4 [facility] Comment on above: Performed By: #### L AB17, [id number] ####Strike Operations Officer: JORDYN DUFFY ([id number])[facility] ([facility])[address] [place] [address] [place] Chloride [Moles/Vol] 106 mmol/L Normal 98-107 [facility] Comment on above: Performed By: #### L AB17, [id number] ####Strike Operations Officer: JORDYN DUFFY ([id number])[facility] ([facility])[address] [place] [address] [place] CO2 [Moles/Vol] 20 mmol/L Low 22-30 [facility] Comment on above: Performed By: #### L AB17, [id number] ####Strike Operations Officer: JORDYN DUFFY ([id number])[facility] ([facility])[address] [place] [address] [place] Creatinine [Mass/Vol] 0.50 mg/dL Low 0.52-1.04 [facility] Comment on above: Performed By: #### L AB17, [id number] ####Strike Operations Officer: JORDYN DUFFY ([id number])[facility] ([facility])[address] [place] [address] [place] GLOMERULAR FILTRATION RATE ML/MIN/1.73 SQ M.PREDICTED >90.0 Normal >60.0 [facility] Comment on above: Result Comment: Calc ulation based on the Chronic Kidney Disease Epidemiology Collaboration (CKD-EPI) equation refit without adjustment for race Performed By: #### L AB17, [id number] ####Strike Operations Officer: JORDYN DUFFY ([id number])[facility])[address] [place] [address] Glucose [Mass/Vol] 109 mg/dL High 70-100 [facility] Comment on above: Performed By: #### L AB17, [id number] ####Strike Operations Officer: JORDYN DUFFY ([id number])[facility])[address] [place] [address] Potassium [Moles/Vol] 3.3 mmol/L Low 3.5-5.1 [facility] Comment on above: Performed By: #### L AB17, [id number] ####Strike Operations Officer: JORDYN DUFFY ([id number])[facility])[address] [place] [address] Protein [Mass/Vol] 6.2 g/dL Low 6.3-8.2 [facility] Comment on above: Performed By: #### L AB17, [id number] ####Strike Operations Officer: JORDYN DUFFY ([id number])[facility])[address] [place] [address] Sodium [Moles/Vol] 135 mmol/L Normal 135-145 [facility] Comment on above: Performed By: #### L AB17, [id number] ####Strike Operations Officer: JORDYN DUFFY ([id number])[facility])[address] [place] [address] [place] Urea nitrogen [Mass/Vol] 3 mg/dL Low 7-17 [facility] Comment on above: Performed By: #### L AB17, [id number] ####Strike Operations Officer: JORDYN DUFFY ([id number])[facility])[address] [place] [address] Comprehensive metabolic 1998 panelon 12-01-2024 Albumin [Mass/Vol] 3.2 g/dL Low 3.5 - 5.0 g/dL [facility] ALP [Catalytic activity/Vol] 92 U/L 38 - 126 U/L [facility] ALT [Catalytic activity/Vol] 9 U/L 0 - 34 U/L [facility] Anion gap [Moles/Vol] 9 mmol/L 3 - 13 mmol/L [facility] AST [Catalytic activity/Vol] 16 U/L 15 - 46 U/L [facility] Bilirubin [Mass/Vol] 0.2 mg/dL 0.2 - 1 .3 mg/dL [facility] Calcium [Mass/Vol] 6.8 mg/dL Low 8.4 - 10. 4 mg/dL [facility] Chloride [Moles/Vol] 106 mmol/L 98 - 10 7 mmol/L [facility] CO2 [Moles/Vol] 20 mmol/L Low 22 - 30 mmol/L [facility] Creatinine [Mass/Vol] 0.5 mg/dL Low 0.52 - 1.04 mg/dL [facility] GFR/1.73 sq M.predicted (S/P/Bld) [Vol rate/Area] - PINF [facility] Comment on above: Calculation based on the Chronic Kidney Disease Epidemiology Collaboration (CKD-EPI) equation refit without adjustment for race Glucose [Mass/Vol] 109 mg/dL High 70 - 100 mg/dL [facility] Interpretation and review of laboratory results Abnormal [facility] Potassium [Moles/Vol] 3.3 mmol/L Low 3.5 - 5.1 mmol/L [facility] Protein [Mass/Vol] 6.2 g/dL Low 6.3 - 8.2 g/dL [facility] Sodium [Moles/Vol] 135 mmol/L 135 - 145 mmol/L [facility] Urea nitrogen [Mass/Vol] 3 mg/dL Low 7 - 17 mg/dL [facility] FIBRINOGENon 06-22-2024 FIBRINOGEN 439 mg/dL High 200-400 [facility] Comment on above: Performed By: #### L [id number], [id number] ####Strike Operations Officer: JORDYN DUFFY ([id number])[facility] ([address] Fibrinogen Coag (PPP) [Mass/ Vol]on 06-22-2024 Interpretation and review of laboratory results Abnormal [facility] HEPATITIS B SURFACE ANTIGENo n 06-22-2024 HEPATITIS B VIRUS SURFACE AG Not detected Normal Not Detected [facility] Comment on above: Performed By: #### L [id number], [id number] ####Strike Operations Officer: JORDYN DUFFY ([id number])[facility] ([facility])[address] [place] [address] HEPATITIS C ANTIBODYon 06-22 HCV Ab IA Ql Not detected Normal Not Detected [facility] Comment on above: Result Comment: Glory ents with DETECTED Hepatitis C Ab results should have a new specimen submitted for supplemental testing with a Hepatitis C Quantitative RNA assay (viral load), if clinically indicated. Performed By: #### L [id number], [id number] ####Strike Operations Officer: JORDYN DUFFY ([id number])[facility] ([facility])[address] [place] [address] Laboratory - Chemistry and C hemistry - challengeOrdered By: Melany Palacio on 06-22-2024 Magnesium [Mass/Vol] 5.5 mg/dL Critically high 1.6 - 2.3 mg/dL [facility] Laboratory - CoagulationOrde red By: Benigno Gonzalez on 06-22-2024 aPTT Coag (PPP) [Time] 25.9 s 20.0 - 30.5 s [facility] INR Coag (PPP) [Relative time] Low 0.9 - 1.1 [facility] Comment on above: Recommended Anticoag ulant Therapy: SEE BELOW ----- INR of 2.0 - 3.0 : - Prophylaxis of Venous Thrombosis (high-risk surgery) - Treatment of Venous Thrombosis - Treatment of Pulmonary Embolism (Includes tissue heart valves, Acute Myocardial Infarction to prevent systemic embolism, Valvular Heart Disease, and Atrial Fibrillation) ----- INR of 2.5 - 3.5 : - Mechanical Prosthetic Valves (high risk) - If oral anticoagulant therapy is used to prevent Myocardial Infarction PT Coag (Bld) [Time] 10.1 s 9.0 - 12.0 s [facility] Laboratory - Coagulationon 1 08-23-2023 Fibrinogen Coag (PPP) [Mass/Vol] 439 mg/dL High 200 - 400 mg/dL [facility] Laboratory - Microbiology an d Antimicrobial susceptibilityon 06-22-2024 HBV surface Ag IA Ql Not detected Not Detected [facility] HCV Ab IA Ql Not detected Not Detected [facility] Comment on above: Patients with DETECT ED Hepatitis C Ab results should have a new specimen submitted for supplemental testing with a Hepatitis C Quantitative RNA assay (viral load), if clinically indicated. MAGNESIUMon 06-22-2024 Magnesium [Mass/Vol] 5.5 mg/dL Critically high 1.6-2.3 [facility] Comment on above: Performed By: #### L AB17, [id number] ####Strike Operations Officer: JORDYN DUFFY ([id number])[facility] ([facility])[address] [place] [address] Magnesium [Mass/Vol]Ordered By: Melany Palacio on 06-22-2024 Interpretation and review of laboratory results Abnormal [facility] No Panel Informationon 06-22 Interpretation and review of laboratory results Normal [facility] No Panel InformationOrdered By: Benigno Gonzalez on 06-22-2024 Interpretation and review of laboratory results Abnormal [facility] PROTIME AND APTTon aPTT Coag (Bld) [Time] 25.9 s Normal 20.0-30.5 [facility] Comment on above: Performed By: #### L [id number], [id number] ####Strike Operations Officer: JORDYN DUFFY ([id number])[facility] ([facility])[address] [place] [address] INR Coag (PPP) [Relative time] {INR} Low 0.9-1.1 [facility] Comment on above: Result Comment: Abundio mmended Anticoagulant Therapy: SEE BELOW ----- INR of 2.0 - 3.0 : - Prophylaxis of Venous Thrombosis (high-risk surgery) - Treatment of Venous Thrombosis - Treatment of Pulmonary Embolism (Includes tissue heart valves, Acute Myocardial Infarction to prevent systemic embolism, Valvular Heart Disease, and Atrial Fibrillation) ----- INR of 2.5 - 3.5 : - Mechanical Prosthetic Valves (high risk) - If oral anticoagulant therapy is used to prevent Myocardial Infarction Performed By: #### L [id number], [id number] ####Strike Operations Officer: JORDYN DUFFY ([id number])[facility] ([facility])[address] [place] [address] PT Coag (PPP) [Time] 10.1 s Normal 9.0-12.0 [facility] Comment on above: Performed By: #### L [id number], [id number] ####Strike Operations Officer: JORDYN DUFFY ([id number])[facility] ([facility])[address] [place] [address] Progress Noteon 06-22-2024 Progress Note Department of Obstet rics and Gynecology Labor and Delivery Triage Note CHIEF COMPLAINT: Labor Transport from OSH HISTORY OF PRESENT ILLNESS: The patient is a 23 y.o. 29w4d. OB History 1 Para 0 Term 0 0 AB 0 Living 0 SAB 0 IAB 0 Ectopic 0 Multiple 0 Live Births 0 Patient presents with a chief complaint as above. Patient presenting from outside hospital for concern for labor. She noted her initial presentation was at outside hospital approximately 2 weeks ago when she had contractions. She is told at that time that she had a urinary tract infection was discharged on oral antibiotics. At that time she was 1 cm dilated and due to concern for early cervical dilation was given betamethasone x 2 on 06-03 and 1112. She was told that if there were any changes or increasing contractions that she should report to the hospital. Earlier yesterday and today she noted dark red tinge to vaginal mucus as well as contractions that were between every 1 to 5 minutes. So she represented to hospital. There she was determined to be 2 cm dilated she was started on multiple medications and was told that she needed to be transported for higher level of care. Patient stated during transport that she did notice 2 contractions during approximately 1-1/2-hour drive. She states overall contractions are lessening in intensity when they do arrive. She has not noticed any vaginal bleeding. She notes normal movement. Past medical history anxiety no current medications Past surgical history wisdom tooth extraction Allergies present to clonidine and Paxil Obstetric history Estimated Due Date: Estimated Date of Delivery: 09/03/24 PAST MEDICAL HISTORY: History reviewed. No pertinent past medical history. PAST SURGICAL HISTORY: Past Surgical History: Procedure Laterality Date WISDOM TOOTH EXTRACTION 18 years old SOCIAL HISTORY: Social History Socioeconomic History Marital status: Single Tobacco Use Smoking status: Never Smokeless tobacco: Former Vaping Use Vaping status: Former Substance and Sexual Activity Alcohol use: Not Currently Drug use: Never Social Drivers of Health Intimate Partner Violence: Not At Risk (06/22/2024) Humiliation, Afraid, Rape, and Kick questionnaire Fear of Current or Ex-Partner: No Emotionally Abused: No Physically Abused: No Sexually Abused: No MEDICATIONS: No current facility-administered medications for this encounter. CARE: Complicated by: Hx Urinary tract infection REVIEW OF SYSTEMS: Pertinent items are noted in HPI. APPEARANCE: Pain: No PHYSICAL EXAM: Vital Signs: VS wnl-reviewed/Respiration s normal effort Vitals: 06/22/24 1849 06/22/24 1850 06/22/24 1855 BP: 124/67 Pulse: 114 115 108 Resp: 16 Temp: 36.8 ?C (98.3 ?F) TempSrc: Oral SpO2: 98% Weight: 143 lb (64.9 kg) Height: 5' 5 (1.651 m) Abdomen: soft, gravid, nontender, nondistended, no abnormal masses, no epigastric pain Uterus: gravid/non-tender LE Edema: trace Speculum Exam: no pooling of fluid seen, vaginal discharge mucus yellow/brown tinged in appearance heart rate: Category I Cervix: 2/80/-3 Contraction frequency: Irregular q1-7 minutes; patient feeling rare contractions Membranes: Intact RESULTS: NST: Reactive TRIAGE COURSE: Cervical exam as above, concern for change since outside facility. Discussed plan of care with Dr. Roca on-call for [facility] service and will plan for toco lysis as well as rescue steroids. heart tracing category 1. Will initiate penicillin for GBS prophylaxis as well as de-escalate magnesium to neuroprotection dosing at 1 g/h. Notified patient and patient agreeable to plan. Fetus vertex on bedside ultrasound. ESSION: Pre-Term Labor Pain assessment and plan: None DISCUSSED WITH [facility] PROVIDER: Dr. Roca DISPOSITION: Admit to Antepartum (PNU) Normal [facility] U Drug Screenon 06-22-2024 Amphetamines Screen method >1000 ng/mL Ql (U) Negative Normal NEGATIVE [facility] Comment on above: Result Comment: Nega tive Cutoff: <1000 ng/mL Performed By: #### 2 [id number] #### [facility] [address] [place] [address] Barbiturates Screen Ql (U) Negative Normal NEGATIVE [facility] Comment on above: Result Comment: Nega tive Cutoff: <200 ng/mL Performed By: #### 2 [id number] #### [facility] [address] [place] [address] Benzodiazepines Ql (U) Negative Normal NEGATIVE [facility] Comment on above: Result Comment: Nega tive Cutoff: <200 ng/mL Performed By: #### 2 [id number] #### [facility] [address] [place] [address] Cannabinoids Screen Ql (U) Negative Normal NEGATIVE [facility] Comment on above: Result Comment: Nega tive Cutoff: <50 ng/mL Performed By: #### 2 [id number] #### [facility] [address] [place] [address] Cocaine Ql (U) Negative Normal NEGATIVE [facility] Comment on above: Result Comment: Nega tive Cutoff: <300 ng/mL Performed By: #### 2 [id number] #### [facility] [address] [place] [address] Opiates Screen Ql (U) Negative Normal NEGATIVE [facility] Comment on above: Result Comment: Nega tive Cutoff: <300 ng/mL Performed By: #### 2 [id number] #### [facility] [address] [place] [address] Phencyclidine Screen method >25 ng/mL Ql (U) Negative Normal NEGATIVE [facility] Comment on above: Result Comment: Nega tive Cutoff: <25 ng/mL These drug screen results are to be used for medical (i.e., treatment) purposes only. Unconfirmed drug screening results must not be used for non-medical purposes (e.g., employment testing, legal testing). Performed By: #### 2 [id number] #### [facility] [address] [place] [address] U Fentanyl Negative Normal NEGATIVE [facility] Comment on above: Result Comment: Nega tive Cutoff: <5 ng/mL These drug screen results are to be used for medical (i.e., treatment) purposes only. Unconfirmed drug screening results must not be used for non-medical purposes (e.g., employment testing, legal testing). Performed By: #### 2 [id number] #### [facility] [address] [place] [address] URINE CULTUREon 06-22-2024 Bacteria identified Cx Nom (U) URINE CULTURE Reference No growth (<1,000 CFU/mL) [ S = SUSCEPTIBLE R = RESISTANT I = INTERMEDIATE S-DD = Susceptible-dose dependent NS = Non-susceptible NO = No Interpretation ] Normal [facility] Comment on above: Performed By: #### L [id number] ####Strike Operations Officer: JORDYN DUFFY ([id number])[facility] ([address] US Limitedon 06-22 US Limited Exam Date/Time: 06/22/2024 09:55 EST Reason for Exam: Size/date gestation Report IMPRESSION: SINGLE LIVE INTRAUTERINE CORRESPONDING TO APPROXIMATELY Composite Ultrasound Age: 29 weeks, 1 days. NO GROSS ABNORMALITIES IDENTIFIED, WITHIN THE LIMITS OF THE STUDY. EXAM: US Limited DATE: 06/22/2024 8:52 AM CLINICAL HISTORY: Size/date gestation. Gestational Age by LMP: 29 weeks, 4 days COMPARISON: None available. TECHNIQUE: Transabdominal ultrasound of the gravid uterus was performed. FINDINGS: The study is limited with low vertex positioning. A single live intrauterine is noted in cephalic position. cardiac activity is measured at 147 bpm. The cervix appears closed measuring approximately 3 cm in longitudinal length. PLACENTA: A grade 2-7-bdavjcavk placenta is anterior/fundal without evidence of placenta previa. The amniotic fluid volume appears within normal limits for gestation. Amniotic Fluid Index: 10.9 cm MEASUREMENTS: The following measurements were obtained: * BPD 7.2 cm with the Growth Percentile Rank: 19.0 Percent * HC 26.2 cm with the Growth Percentile Rank: 3.0 Percent * 24.9 cm with the Growth Percentile Rank: 30.0 Percent * Femur Length: 5.6 cm with the Growth Percentile Rank: 32.0 Percent * which corresponds to Composite Ultrasound Age: 29 weeks, 1 days. ESTIMATED WEIGHT: Estimated Weight: 1344.1 (grams) Report Estimated Weight: 2lbs 15.4ozs (lbs/oz) EFW growth percentile rank: 23 (Percent) EFW LMP Percentile: 23.5 (Percent) An anatomic survey was not performed. No gross abnormalities identified, within the limits of the study. Ordering Provider: Anika Bob FINAL REPORT Dictated: 06/22/2024 10:09 am Horace Aguero MD Signed (Electronic Signature): 06/22/2024 10:09 am Signed by: Horace Aguero MD Transcribed by: PENNIE Technologist: CLIFTON Technical Comments JOANIE 09/06/24 History 1 Para 0 Transabdominal Ultrasound Performed Placenta Grade 0 Positioning Vertex Amniotic Fluid Volume CHEMA (cm) 10.9 Normal Normal [facility] VAGINITIS PANEL MVP PCRon VAGINITIS PANEL MVP PCR BACTERIAL VAGINO SIS MVP PCR Reference Not Detected Not Detected PREETHI SPP MVP PCR Reference Not Detected Not Detected PREETHI GLABRATA/KRUSEI MVP PCR Reference Not Detected Not Detected TRICHOMONAS VAGINALIS MVP PCR Reference Not Detected Not Detected ORDER COMMENTS: Methodology: real-time PCR A negative result does not preclude a possible infection. This assay can detect the Preethi species C. albicans, C. tropicalis, C. parapsilosis, and C. dubliniensis but does not differentiate among them. The assay also detects C. glabrata and C. krusei, but does not differentiate between them. Results should be interpreted in conjunction with other clinical data. This test has not been validated for use with specimens collected by patients at home. This test is intended for medical purposes only and is not valid for the evaluation of suspected sexual abuse or for other forensic purposes. Normal [facility] Comment on above: Performed By: #### L [id number] ####Strike Operations Officer: JORDYN DUFFY ([id number])[facility] ([address] ABO/Rhon 06-21-2024 ABO/Rh Positive Invalid Interpretation Code [facility] Comment on above: Performed By: #### 2 [id number] #### [facility] [address] [place] [address] ABO/Rh History Checkon 06-21 ABO/Rh History Check Verified Hx Blood Type Normal [facility] Comment on above: Performed By: #### 1 [id number] #### [facility] [address] [place] [address] ABSCon 06-21-2024 ABSC Gel Interp Negative Normal [facility] Comment on above: Performed By: #### 1 [id number] #### [facility] [address] [place] [place] [id number] BLOOD BANKOrdered By: Cora Devi on 06-21-2024 ABO/Rh Interp Positive Invalid Interpretation Code [facility] BB Subsection ABSC Gel Interp Negative (06/21/24 5:33 PM) Normal [facility] BB Subsection BLOOD BANKOrdered By: Jessica Hollis on 06-21-2024 FMHV 0 mL Invalid Interpretation Code [facility] BUNon 06-21-2024 Urea nitrogen [Mass/Vol] 9 mg/dL Normal - [facility] Comment on above: Performed By: #### 2 [id number] #### [facility] [address] [place] [address] Blood Bank ID#on 06-21-2024 BBID# [id number] Invalid Interpretation Code [facility] Comment on above: Performed By: #### 1 [id number] #### [facility] [address] [place] [address] CBC w/Indiceson 06-21-2024 Erythrocyte distribution width (RBC) [Ratio] 12.6 % Normal 10.9-14.2 [facility] Comment on above: Performed By: #### 2 [id number] #### [facility] [address] [place] [address] Hematocrit (Bld) [Volume fraction] 33.6 % Low 34.0-46.0 [facility] Comment on above: Performed By: #### 2 [id number] #### [facility] [address] [place] [address] Hemoglobin (Bld) [Mass/Vol] 11.7 g/dL Low 12.0-16.0 [facility] Comment on above: Performed By: #### 2 [id number] #### [facility] [address] [place] [address] MCH (RBC) [Entitic mass] 29.8 pg Normal 27.0-34.0 [facility] Comment on above: Performed By: #### 2 [id number] #### [facility] [address] [place] [address] MCHC (RBC) [Mass/Vol] 34.7 g/dL Normal 31.4-36.0 [facility] Comment on above: Performed By: #### 2 [id number] #### [facility] [address] [place] [address] MCV (RBC) [Entitic vol] 85.8 fL Normal 80.0-100.0 [facility] Comment on above: Performed By: #### 2 [id number] #### [facility] [address] [place] [address] Platelet 320.0 E9/L Normal 150.0-500.0 [facility] Comment on above: Performed By: #### 2 [id number] #### [facility] [address] [place] [address] Platelet mean volume (Bld) [Entitic vol] 7.7 fL Normal 6.4-10.8 [facility] Comment on above: Performed By: #### 2 [id number] #### [facility] [address] [place] [address] RBC (Bld) [#/Vol] 3.9 E12/L Low 4.3-5.9 [facility] Comment on above: Performed By: #### 2 [id number] #### [facility] [address] [place] [address] RBC size Nom (Bld) NORMAL Invalid Interpretation Code [facility] Comment on above: Performed By: #### 2 [id number] #### [facility] [address] [place] [address] WBC corrected for nucl RBC Auto (Bld) [#/Vol] 12.5 E9/L High 4.0-11.0 [facility] Comment on above: Performed By: #### 2 [id number] #### [facility] [address] [place] [address] CHEMISTRYOrdered By: SYSTEM SYSTEM on 06-21-2024 Albumin [Mass/Vol] 3.7 g/dL Normal 3.3 - 5.0 gm/dL [facility] Albumin/Globulin [Mass ratio] 1.2 {ratio} Normal 1.1 - 2.2 [facility] ALP [Catalytic activity/Vol] 80 [iU]/d Normal 21 - 98 Int._Unit/L [facility] ALT No additional P-5'-P [Catalytic activity/Vol] 8 [iU]/d Normal 6 - 46 Int._Unit/L [facility] Anion gap [Moles/Vol] 12 mmol/L Normal 6 - 16 mEq/L R emisol Chem AST [Catalytic activity/Vol] 12 [iU]/d Normal 5 - 43 Int._Unit/L [facility] Bilirubin [Mass/Vol] 0.6 mg/dL Normal 0.0 - 1 .1 mg/dL [facility] Bilirubin.direct [Mass/Vol] 0.0 mg/dL Normal 0.0 - 0.4 mg/dL [facility] Bilirubin.indirect [Mass or moles/Vol] 0.6 mg/dL Normal 0.1 - 0.9 mg/dL [facility] Chloride [Moles/Vol] 104 mmol/L Normal 101 - 1 11 mmol/L [facility] CO2 [Moles/Vol] 23 mmol/L Normal 21 - 31 mmol/L [facility] Creatinine [Mass/Vol] 0.6 mg/dL Normal 0.5 - 1.3 mg/dL [facility] eGFR 129 mL/min/1.73 m2 Normal >=59mL/mi n/1 .73 m2 [facility] Globulin (S) [Mass/Vol] 3.1 g/dL Normal 1.4 - 4.0 gm/dL [facility] Potassium [Moles/Vol] 3.3 mmol/L Low 3.5 - 5.3 mmol/L [facility] Protein [Mass/Vol] 6.8 g/dL Normal 6.0 - 7.8 gm/dL [facility] Sodium [Moles/Vol] 136 mmol/L Normal 135 - 145 mmol/L [facility] Urate [Mass/Vol] 3.6 mg/dL Normal 2.2 - 7.4 mg/dL [facility] Urea nitrogen [Mass/Vol] 9 mg/dL Normal 5 - 21 mg/dL [facility] COAGULATIONOrdered By: Lyn Hollis on 06-21-2024 aPTT Coag (PPP) [Time] 28.6 s Normal 25.1 - 36.5 second(s) [facility] Comment on above: Interpretive Data: Aramis gale 15 days - 4 weeks 1 - 5 months 6 - 11 months 1 - 5 years 6 - 10 years 11 - 17 years PTT Mean: 35.4 (27.6-45.6) Mean: 33.5 (24.8-40.7) Mean: 32.4 (25.1-40.7) Mean: 31.6 (24.0-39.2) Mean: 31.6 (26.9-38.7) Mean: 31.0 (24.6-38.4) Pediatric Reference ranges were obtained from a study by Jn Mcfadden et al. prepared from 1437 samples obtained at 7 different centers using the same coagulation reagent and instrumentation as [facility]. Currently there are no coagulation studies available worldwide for children to 14 days, and no normal ranges. Heparin therapeutic range (represented by Anti-Factor Xa activity of 0.2 - 0.4 U/mL) corresponds to PTT of 56.6 - 109.0 sec. Fibrinogen Coag (PPP) [Mass/Vol] 472 mg/dL High 200 - 393 mg/dL [facility] INR Coag (PPP) [Relative time] 0.96 {INR} Invalid Interpretation Code [facility] Comment on above: Interpretive Data: I NR results are specifically intended to assess patients stabilized on long-term Anticoagulation therapy suggested INR s Less Intensive Anticoagulation 2.0 3.0 Conventional Range 3.0 4.5 PT Coag (PPP) [Time] 10.7 s Normal 9.4 - 1 2.5 second(s) [facility] Comment on above: Interpretive Data: 1 5 days - 4 weeks 1 - 5 months 6 -11 months 1-5 years 6-10 years 11 -17 years Mean: 11.2 (9.5-12.6) Mean: 11.0 (9.7-12.8) Mean: 11.0 (9.8-13.0) Mean: 11.3 (9.9-13.4) Mean: 11.7 (10.0-14.6) Mean: 11.8 (10.0 - 14.1) Pediatric Reference ranges were obtained from a study by Jn Mcfadden et al. prepared from 1437 samples obtained at 7 different centers using the same coagulation reagent and instrumentation as [facility]. Currently there are no coagulation studies available worldwide for children to 14 days, and no normal ranges. Creatinineon 06-21-2024 Creatinine [Mass/Vol] 0.6 mg/dL Normal 0.5-1.3 [facility] Comment on above: Performed By: #### 2 [id number] #### [facility] [address] [place] [address] Stainon 06-21-2024 FMHV 0 mL Invalid Interpretation Code [facility] Comment on above: Performed By: #### 1 [id number] #### [facility] [address] [place] [address] Negative Control Negative Normal [facility] Comment on above: Performed By: #### 1 [id number] #### [facility] [address] [place] [address] Fibrinogenon 06-21-2024 Fibrinogen Coag (PPP) [Mass/Vol] 472 mg/dL High 200-393 [facility] Comment on above: Performed By: #### 2 [id number] #### [facility] [address] [id number] HEMATOLOGYOrdered By: SYSTEM SYSTEM on 06-21-2024 Erythrocyte distribution width (RBC) [Ratio] 12.6 % Normal 10.9 - 14.2 % Rem[facility]e Hematocrit (Bld) [Volume fraction] 33.6 % Low 34.0 - 46.0 % [facility]e Hemoglobin (Bld) [Mass/Vol] 11.7 g/dL Low 12.0 - 16.0 gm/dL [facility] MCH (RBC) [Entitic mass] 29.8 pg Normal 27.0 - 34.0 pg [facility]e MCHC (RBC) [Mass/Vol] 34.7 g/dL Normal 31.4 - 36.0 gm/dL [facility] MCV (RBC) [Entitic vol] 85.8 fL Normal 80.0 - 100.0 fL [facility] Platelet 320.0 E9/L Normal 150.0 - 500.0 E9/L [facility]e Platelet mean volume (Bld) [Entitic vol] 7.7 fL Normal 6.4 - 10.8 fL [facility]e RBC (Bld) [#/Vol] 3.9 E12/L Low 4.3 - 5.9 E12/L [facility] RBC size Nom (Bld) NORMAL *NA* (06/21/24 5:33 PM) Invalid Interpretation Code [facility] WBC corrected for nucl RBC Auto (Bld) [#/Vol] 12.5 E9/L High 4.0 - 11.0 E9/L [facility] Hep Func Panelon 06-21-2024 Albumin [Mass/Vol] 3.7 g/dL Normal 3.3-5.0 [facility] Comment on above: Performed By: #### 2 [id number] #### [facility] [address] [place] [address] Albumin/Globulin (S) [Mass conc ratio] 1.2 Normal 1.1-2.2 [facility] Comment on above: Performed By: #### 2 [id number] #### [facility] [address] [place] [address] ALP [Catalytic activity/Vol] 80 Int._Unit/L Normal 21-98 [facility] Comment on above: Performed By: #### 2 [id number] #### [facility] [address] [place] [address] ALT No additional P-5'-P [Catalytic activity/Vol] 8 Int._Unit/L Normal 6-46 [facility] Comment on above: Performed By: #### 2 [id number] #### [facility] [address] [place] [address] AST [Catalytic activity/Vol] 12 Int._Unit/L Normal 5-43 [facility] Comment on above: Performed By: #### 2 [id number] #### [facility] [address] [place] [address] Bilirubin [Mass/Vol] 0.6 mg/dL Normal 0.0-1.1 [facility] Comment on above: Performed By: #### 2 [id number] #### [facility] [address] [place] [address] Bilirubin.direct [Mass/Vol] 0.0 mg/dL Normal 0.0-0.4 [facility] Comment on above: Performed By: #### 2 [id number] #### [facility] [address] [place] [address] Bilirubin.indirect [Mass or moles/Vol] 0.6 mg/dL Normal 0.1-0.9 [facility] Comment on above: Performed By: #### 2 [id number] #### [facility] [address] [place] [address] Globulin (S) [Mass/Vol] 3.1 g/dL Normal 1.4-4.0 [facility] Comment on above: Performed By: #### 2 [id number] #### [facility] [address] [place] [address] Protein [Mass/Vol] 6.8 g/dL Normal 6.0-7.8 [facility] Comment on above: Performed By: #### 2 [id number] #### [facility] [address] [place] [address] Inpatient Clinical Summaryon 06-21-2024 Inpatient Clinical Summary Inpatient Clinical Summary [address] [address] Clinical Summary Person Information Name: LUZ HINOJOSA [place] Age: 23 Years : 2000 Sex: Female PCP: NONE, XXXX Marital Status: Phone: [phone] Race: White Ethnicity: Non- or Language: [place] Islander Visit Id: Visit Reason: BLOOD DISCHARGE Speciality: Acuity: Enc Type: Outpatient in a Bed Med Service: Obstetrics Arrival: 06/21/2024 16:32:45 Discharge: 06/21/2024 21:02:00 Dispo Type: Home (Routine DC) Address: [facility] [address] [facility] [id number] Provider Notes: Diagnosis: Problems Active (11/27/2023) Smoking Status: Former Smoker Functional Status: Sensory Deficits: History of Falls: Mobility Assistance Prior to Admission: ADLs: Current Level of Assistance for Self-Care/Mobility: Cognitive Status: Allergies cloNIDine (Hives) Paxil (Insomnia) Laboratory or Other Results This Visit (last charted value for your 06/21/2024 visit) Hematology 06/21/2024 5:33 PM RBC Morph: NORMAL Hct: 33.6 % -- Normal range between ( 34.0 and 46.0 ) HGB: 11.7 gm/dL -- Normal range between ( 12.0 and 16.0 ) RBC: 3.9 E12/L -- Normal range between ( 4.3 and 5.9 ) RDW: 12.6 % -- Normal range between ( 10.9 and 14.2 ) MCH: 29.8 pg -- Normal range between ( 27.0 and 34.0 ) MCHC: 34.7 gm/dL -- Normal range between ( 31.4 and 36.0 ) MCV: 85.8 fL -- Normal range between ( 80.0 and 100.0 ) MPV: 7.7 fL -- Normal range between ( 6.4 and 10.8 ) Platelet: 320.0 E9/L -- Normal range between ( 150.0 and 500.0 ) WBC: 12.5 E9/L -- Normal range between ( 4.0 and 11.0 ) Coagulation 06/21/2024 5:33 PM INR: 0.96 Fibrinogen: 472 mg/dL -- Normal range between ( 200 and 393 ) PT: 10.7 second(s) -- Normal range between ( 9.4 and 12.5 ) PTT: 28.6 second(s) -- Normal range between ( 25.1 and 36.5 ) Urinalysis 06/21/2024 4:47 PM UA Bacteria: 1+ /HPF UA Bili: Negative mg/dL UA Color: Yellow UA Glucose: Negative mg/dL UA Ketones: 2+ mg/dL UA Leuk Est: 75 Daniele/uL Daniele/uL UA Mucous: 1+ graded/LPF UA Nitrite: Negative mg/dL UA Protein: Trace mg/dL UA RBC: 0-3 graded/HPF UA Squam Epithelial: >10 graded/HPF UA Urobilinogen: 3 mg/dL mg/dL UA WBC: 0-5 graded/HPF UA Spec Desc: Clean Catch UA Blood: 1+ mg/dL UA Clarity: Turbid UA pH: 6.0 -- Normal range between ( 5.0 and 9.0 ) UA Spec Grav: 1.026 -- Normal range between ( 1.005 and 1.030 ) Chemistry 06/21/2024 5:33 PM Creatinine: 0.6 mg/dL -- Normal range between ( 0.5 and 1.3 ) A/G Ratio: 1.2 -- Normal range between ( 1.1 and 2.2 ) AGAP: 12 mEq/L -- Normal range between ( 6 and 16 ) Albumin Lvl: 3.7 gm/dL -- Normal range between ( 3.3 and 5.0 ) Alk Phos: 80 Int._Unit/L -- Normal range between ( 21 and 98 ) ALT: 8 Int._Unit/L -- Normal range between ( 6 and 46 ) AST: 12 Int._Unit/L -- Normal range between ( 5 and 43 ) Bili Direct: 0.0 mg/dL -- Normal range between ( 0.0 and 0.4 ) Bili Total: 0.6 mg/dL -- Normal range between ( 0.0 and 1.1 ) CO2: 23 mmol/L -- Normal range between ( 21 and 31 ) Sodium Lvl: 136 mmol/L -- Normal range between ( 135 and 145 ) Total Protein: 6.8 gm/dL -- Normal range between ( 6.0 and 7.8 ) BUN: 9 mg/dL -- Normal range between ( 5 and 21 ) Potassium Lvl: 3.3 mmol/L -- Normal range between ( 3.5 and 5.3 ) Uric Acid: 3.6 mg/dL -- Normal range between ( 2.2 and 7.4 ) Chloride: 104 mmol/L -- Normal range between ( 101 and 111 ) Bili Indirect: 0.6 mg/dL -- Normal range between ( 0.1 and 0.9 ) eGFR: 129 mL/min/1.73 m2 Globulin: 3.1 gm/dL -- Normal range between ( 1.4 and 4.0 ) Blood Bank 06/21/2024 5:33 PM ABO/Rh: A POS ABSC Gel Interp: Negative FMHV: 0 mL Measurements: Height: 165.1 cm Weight: 65 kg Blood Pressure: 123 mmHg / 66 mmHg BMI: 23.85 kg/m2 Procedures No Procedures Documented Immunizations No Immunizations Documented This Visit Final Med List: multivitamin, ( Multivitamins) 1 Tablets By Mouth every day. Care Team Members: Attending Physician: Anika Bob MD Consulting Physician: Referring Physician: Follow up: With: Address: When: Anika Bob [address] [place] [id number] Business (1) In 2 days 06/23/2024 Comments: Call for any problems. 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 Patient Education Information: Normal [facility] Inpatient Patient Summaryon 06-21-2024 Inpatient Patient Summary Inpatient Patient Summary [address] [address] Patient Discharge Instructions PERSON INFORMATION Name: LUZ HINOJOSA Date of : 2000 Current Date: 06/21/2024 21:22:20 PHYSICIANS Admitting Physician: Anika Bob MD Primary Care Physician: NONE, XXXX PCP Phone Number: Comment: Discharge Diagnosis: Condition at Discharge: LUZ HINOJOSA has been given the following list of follow-up instructions, prescriptions, and patient education materials: PATIENT FOLLOW-UP INFORMATION Diet: Activity: Wound Care Instructions: Remove Your Dressing IN: Days Call Your Doctor For: IF UNABLE TO CONTACT YOUR PHYSICIAN AND YOU FEEL IT IS AN EMERGENCY, GO TO THE NEAREST EMERGENCY ROOM OR CALL 911 Home Treatment: Devices/Equipment: Special Services: Additional Instructions: Physician to provide the following pending test results: Follow up: With: Address: When: Anika [address], [address], [place] [address] Business (1) In 2 days 06/23/2024 Comments: Call for any problems. Call for fever > 100.5 F Call for severe abdominal pain Call physician if symptoms worsen Return for decreased movement Call Dr. 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 In the event that this physician does not participate in your insurance network, please consult with your insurance company to find a nearby participating provider. Comment: IASHISH BRIANNA, have received the attached patient education materials/instructions and have verbalized understanding. Patient Signature Date Clinican/Nurse Signature Date MEDICATION LIST Medications to Continue with No Changes Other Medications multivitamin, ( Multivitamins) 1 Tablets By Mouth every day. Last Dose: _Next Dose: _ Pharmacy Information: PATIENT EDUCATION INFORMATION Instructions: Medication Leaflets: You may receive a survey from [employer] asking you to rate your care experience. Your feedback is important and will help us understand what we do well and how we can improve the quality of care we provide to you, your loved ones and our community. It???s an honor to serve you. Patient Portal You may access all of your results and other medical record information on our secure patient portal. If you are not signed up for this yet, please contact [facility] at [phone] to get signed up today. COOPER Award Nomination The COOPER (Diseases Attacking the Immune SYstem) Award is an international recognition program that honors and celebrates the skillful, compassionate care nurses provide every day. Anyone who experiences or observes amazing care being provided by a nurse is encouraged to submit a nomination. To nominate your nurse, use your smart phone to scan the QR code below. Thank you for choosing [facility] Normal [facility] Lyteson 06-21-2024 Anion gap [Moles/Vol] 12 mmol/L Normal 6-16 [facility] Comment on above: Performed By: #### 2 [id number] #### [facility] [address] [place] [address] Chloride [Moles/Vol] 104 mmol/L Normal 101-111 [facility] Comment on above: Performed By: #### 2 [id number] #### [facility] [address] [place] [address] CO2 [Moles/Vol] 23 mmol/L Normal 21-31 [facility] Comment on above: Performed By: #### 2 [id number] #### [facility] [address] [facility] [place] [address] Potassium [Moles/Vol] 3.3 mmol/L Low 3.5-5.3 [facility] Comment on above: Performed By: #### 2 [id number] #### [facility] [address] [place] [address] Sodium [Moles/Vol] 136 mmol/L Normal 135-145 [facility] Comment on above: Performed By: #### 2 [id number] #### [facility] [address] [place] [address] PT & PTTon 06-21-2024 aPTT Coag (PPP) [Time] 28.6 second(s) Normal 25.1-36.5 [facility] Comment on above: Result Comment: Para meter 15 days - 4 weeks 1 - 5 months 6 - 11 months 1 - 5 years 6 - 10 years 11 - 17 years PTT Mean: 35.4 (27.6-45.6) Mean: 33.5 (24.8-40.7) Mean: 32.4 (25.1-40.7) Mean: 31.6 (24.0-39.2) Mean: 31.6 (26.9-38.7) Mean: 31.0 (24.6-38.4) Pediatric Reference ranges were obtained from a study by Jn Mcfadden et al. prepared from 1437 samples obtained at 7 different centers using the same coagulation reagent and instrumentation as [facility]. Currently there are no coagulation studies available worldwide for children to 14 days, and no normal ranges. Heparin therapeutic range (represented by Anti-Factor Xa activity of 0.2 - 0.4 U/mL) corresponds to PTT of 56.6 - 109.0 sec. Performed By: #### 1 [id number] #### [facility] [address] [place] [address] INR Coag (PPP) [Relative time] 0.96 {INR} Invalid Interpretation Code [facility] Comment on above: Result Comment: INR results are specifically intended to assess patients stabilized on long-term Anticoagulation therapy suggested INR???s ???Less Intensive Anticoagulation??? 2.0 ??? 3.0 Conventional Range 3.0 ??? 4.5 Performed By: #### 1 [id number] #### [facility] [address] [place] [address] PT Coag (PPP) [Time] 10.7 second(s) Normal 9.4-12.5 [facility] Comment on above: Result Comment: 15 d ays - 4 weeks 1 - 5 months 6 -11 months 1-5 years 6-10 years 11 -17 years Mean: 11.2 (9.5-12.6) Mean: 11.0 (9.7-12.8) Mean: 11.0 (9.8-13.0) Mean: 11.3 (9.9-13.4) Mean: 11.7 (10.0-14.6) Mean: 11.8 (10.0 - 14.1) Pediatric Reference ranges were obtained from a study by Jn Mcfadden et al. prepared from 1437 samples obtained at 7 different centers using the same coagulation reagent and instrumentation as [facility]. Currently there are no coagulation studies available worldwide for children to 14 days, and no normal ranges. Performed By: #### 1 [id number] #### [facility] [address] [place] [address] UA with Cult Rflxon 06-21-20 24 Bacteria Auto Ql (U) 1+ /HPF Abnormal Trace Fish [facility] Comment on above: Performed By: #### 4 [id number] #### [facility] [address] [place] [address] Bilirubin Ql (U) Negative Normal Negative [facility] Comment on above: Performed By: #### 4 [id number] #### [facility] [address] [place] [address] Clarity (U) Turbid Abnormal Clear [facility] Comment on above: Performed By: #### 4 [id number] #### [facility] [address] [place] [address] Color (U) Yellow Normal Yellow [facility] Comment on above: Result Comment: Micr oscopic readings are only performed on those samples that meet specific criteria set forth by [facility]. Performed By: #### 4 [id number] #### [facility] [address] [place] [address] Epithelial cells.squamous Auto (Urine sed) [#/Area] >10 Invalid Interpretation Code [facility] Comment on above: Performed By: #### 4 [id number] #### [facility] [address] [place] [address] Glucose Ql (U) Negative Normal Negative [facility] Comment on above: Performed By: #### 4 [id number] #### [facility] [address] [place] [address] Hemoglobin Auto test strip (U) [Mass/Vol] 1+ mg/dL Abnormal Negative [facility] Comment on above: Performed By: #### 4 [id number] #### [facility] [address] [place] [address] Ketones Auto test strip Ql (U) 2+ mg/dL Abnormal Negative [facility] Comment on above: Performed By: #### 4 [id number] #### [facility] [address] [place] [address] Leukocyte esterase Auto test strip Ql (U) 75 Daniele/uL Abnormal Negative [facility] Comment on above: Performed By: #### 4 [id number] #### [facility] [address] [place] [address] Mucus Auto Ql (U) 1+ [id number] Abnormal Negative [facility] Comment on above: Performed By: #### 4 [id number] #### [facility] [address] [place] [address] Nitrite Auto test strip Ql (U) Negative Normal Negative [facility] Comment on above: Performed By: #### 4 [id number] #### [facility] [address] [place] [address] pH (U) 6.0 [pH] Invalid Interpretation Code 5.0-9.0 [facility] Comment on above: Performed By: #### 4 [id number] #### [facility] [address] [place] [address] Protein Ql (U) Trace Abnormal Negative [facility] Comment on above: Performed By: #### 4 [id number] #### [facility] [address] [place] [address] RBC Ql (U) 0-3 Normal 0-3 [facility] Comment on above: Performed By: #### 4 [id number] #### [facility] [address] [place] [id number] Specific gravity (U) [Rel density] 1.026 Invalid Interpretation Code 1.005-1.030 [facility] Comment on above: Performed By: #### 4 [id number] #### [facility] [address] [id number] Urobilinogen (U) [Mass/Vol] 3 mg/dL Abnormal Negative [facility] Comment on above: Performed By: #### 4 [id number] #### [facility] [address] [place] [address] WBC Auto (Urine sed) [#/Area] 0-5 Normal 0-5 [facility] Comment on above: Performed By: #### 4 [id number] #### [facility] [address] [place] [address] Type of Urine collection method Clean Catch Normal [facility] Comment on above: Performed By: #### 4 [id number] #### [facility] [address] [place], [place] [id number] URINALYSISOrdered By: SYSTEM SYSTEM on 06-21-2024 Bacteria Auto Ql (U) 1+ /HPF Invalid Interpretation Code Trace/HPF FT UA Auto SS Bilirubin Ql (U) Negative Normal Negativemg/ d L [facility] UA Auto SS Clarity (U) Turbid *ABN* (06/21/24 4:47 PM) Invalid Interpretation Code Clear [facility] UA Auto SS Color (U) Yellow 1 (06/21/24 4:47 PM) Normal Yellow [facility] UA Auto SS Comment on above: Interpretive Data: M icroscopic readings are only performed on those samples that meet specific criteria set forth by [facility]. Epithelial cells.squamous Auto (Urine sed) [#/Area] >10 graded/HPF Invalid Interpretation Code [facility] UA Auto SS Glucose Ql (U) Negative Normal Negativemg/d L [facility] UA Auto SS Hemoglobin Auto test strip (U) [Mass/Vol] 1+ mg/dL Invalid Interpretation Code Negativemg/d L [facility] UA Auto SS Ketones Auto test strip Ql (U) 2+ mg/dL Invalid Interpretation Code Negativemg/d L [facility] UA Auto SS Leukocyte esterase Auto test strip Ql (U) 75 Daniele/uL Daniele/uL Invalid Interpretation Code NegativeLeu/ uL [facility] UA Auto SS Mucus Auto Ql (U) 1+ graded/LPF Invalid Interpretation Code Negativegrad ed/LPF [facility] UA Auto SS Nitrite Auto test strip Ql (U) Negative Normal Negativemg/d L [facility] UA Auto SS pH (U) 6.0 *NA* (06/21/24 4:47 PM) Invalid Interpretation Code 5.0 - 9.0 [facility] UA Auto SS Protein Ql (U) Trace mg/dL Invalid Interpretation Code Negativemg/d L [facility] UA Auto SS RBC Ql (U) 0-3 graded/HPF Normal 0-3graded/HP F [facility] UA Auto SS Specific gravity (U) [Rel density] 1.026 *NA* (06/21/24 4:47 PM) Invalid Interpretation Code 1.005 - 1.030 [facility] UA Auto SS Urobilinogen (U) [Mass/Vol] 3 mg/dL Invalid Interpretation Code Negativemg/d L [facility] UA Auto SS WBC Auto (Urine sed) [#/Area] 0-5 graded/HPF Normal 0-5graded/HP F [facility] UA Auto SS URINALYSISOrdered By: Clair Spencer on 06-21-2024 UA Spec Desc Clean Catch (06/21/24 4:47 PM) Normal [facility] UA Auto SS Uric Acidon 06-21-2024 Urate [Mass/Vol] 3.6 mg/dL Normal 2.2-7.4 [facility] Comment on above: Performed By: #### 2 [id number] #### [facility] [address] [place] [address] eGFRon 06-21-2024 eGFR 129 mL/min/1.73 m2 Normal >=59 [facility] Comment on above: Performed By: #### 1 [id number] #### [facility] [address] [place] [address] CBC panel Auto (Bld)on 06-18 Hematocrit (Bld) [Volume fraction] 33 % [facility] Hemoglobin (Bld) [Mass/Vol] 11.2 g/dL [facility] CHEMISTRYOrdered By: SYSTEM SYSTEM on 06-18-2024 Glucose [Mass/Vol] 113 mg/dL Normal 55 - 140 mg/dL Remisol Chem Glucose [Mass/Vol] 166 mg/dL High 55 - 155 mg/dL [facility] Chem Glucose [Mass/Vol] 171 mg/dL Normal 55 - 180 mg/dL [facility] Chem Glucose [Mass/Vol] 76 mg/dL Normal 55 - 99 mg/dL Rem[facility] Chem CHEMISTRYOrdered By: Lab ROP User on 06-18-2024 Glucose [Mass/Vol] 79 mg/dL Normal 55 - 99 mg/dL [facility] POC Subsection POC Device SN [id number] Invalid Interpretation Code [facility] POC Subsection POC User ID [id number] 1 Invalid Interpretation Code [facility] POC Subsection POC Username TOMMY VILLANUEVA Invalid Interpretation Code [facility] POC Subsection Capillary Glucose POCon 05-24 Glucose [Mass/Vol] 79 mg/dL Normal 55-99 [facility] Comment on above: Performed By: #### 2 [id number] #### [facility] [address] [place] [address] Glu 1 Hron 06-18-2024 Glucose [Mass/Vol] 171 mg/dL Normal 55-180 [facility] Comment on above: Performed By: #### 2 [id number] #### [facility] [address] [place] [address] Glu 2 Hron 06-18-2024 Glucose [Mass/Vol] 166 mg/dL High 55-155 [facility] Comment on above: Performed By: #### 2 [id number] #### [facility] [address] [place] [address] Glu 3 Hron 06-18-2024 Glucose [Mass/Vol] 113 mg/dL Normal 55-140 [facility] Comment on above: Performed By: #### 2 [id number] #### [facility] [address] [place] [address] Glu Fastingon 06-18-2024 Glucose [Mass/Vol] 76 mg/dL Normal 55-99 [facility] Comment on above: Performed By: #### 2 [id number] #### [facility] [address] [place] [address] Gest Scr Glu 1 Hron 06-16-20 24 Glucose [Mass/Vol] 142 mg/dL High 55-140 [facility] Comment on above: Performed By: #### 3 [id number] #### [facility] [address] [place] [address] Glu 1 Hron 06-16-2024 Gluc 1 Hr See comment Invalid Interpretation Code 55-180 [facility] Comment on above: Result Comment: Wron g test ordered. Corrected report sent with correct order of a Gestational Screen 1 hour glucose. Performed By: #### 2 [id number] #### [facility] [address] [place] [address] RPR with Conf Rfxon 06-14-20 24 Reagin Ab RPR Ql (S) Non-Reactive Invalid Interpretation Code Non Reactive [facility] Comment on above: Result Comment: Perf ormed at: [facility] [address] [id number] PhD Tim Quezada Performed By: #### 1 [id number] #### [facility] [address] [place] [address] CHEMISTRYOrdered By: SYSTEM SYSTEM on 06-13-2024 Glucose [Mass/Vol] 142 mg/dL Normal 55 - 180 mg/dL Remisol Chem Glu 1 Hron 06-13-2024 Glucose [Mass/Vol] 142 mg/dL Normal 55-180 [facility] Comment on above: Performed By: #### 2 [id number] #### [facility] [address] [place] [address] HEMATOLOGYOrdered By: SYSTEM SYSTEM on 06-13-2024 Hematocrit (Bld) [Volume fraction] 32.5 % Low 34.0 - 46.0 % Remisol Heme Hemoglobin (Bld) [Mass/Vol] 11.2 g/dL Low 12.0 - 16.0 gm/dL Remisol Heme Hematocriton 06-13-2024 Hematocrit (Bld) [Volume fraction] 32.5 % Low 34.0-46.0 [facility] Comment on above: Performed By: #### 2 [id number] #### [facility] [address] [place] [address] Hemoglobinon 06-13-2024 Hemoglobin (Bld) [Mass/Vol] 11.2 g/dL Low 12.0-16.0 [facility] Comment on above: Performed By: #### 2 [id number] #### [facility] [address] [place] [address] C Urineon 06-05-2024 Bacteria identified Cx Nom (U) Microbiology PROCEDURE: Urine Culture [R1] SOURCE: U CleanCatch BODY SITE: COLLECTED DATE/TIME: 06/03/2024 20:26 EST RECEIVED DATE/TIME: 06/03/2024 23:13 EST START DATE/TIME: 06/03/2024 23:13 EST FREE TEXT SOURCE: Paulino CORRIGAN, Anika Bob MD, Anika Gomez FINAL REPORTS Final Report [] Verified Date/Time: 06/05/2024 09:16 EST 3,000 cfu/ml Mixed skin contaminants Performing Locations R1: This test was performed at: [facility], [address] [place] [address], [facility]- , , [facility] Comment on above: Performed By: #### 2 [id number] #### [facility] [address] [place] [address] Inpatient Clinical Summaryon 06-05-2024 Inpatient Clinical Summary Inpatient Clinical Summary [address] [address] Clinical Summary Person Information Name: LUZ HINOJOSA/New_Brett Age: 23 Years : 2000 Sex: Female PCP: NONE, XXXX Marital Status: Phone: [phone] Race: White Ethnicity: Non- or Language: [place] Islander Visit Id: Visit Reason: 27 WEEKS , CONTRACTIONS Speciality: Acuity: Obs Enc Type: Observation Med Service: Obstetrics Arrival: 06/03/2024 20:07:36 Discharge: 06/05/2024 14:16:23 Dispo Type: Home (Routine DC) Address: [facility] [address] [id number] Provider Notes: Diagnosis: 27 weeks gestation of ; Active labor; Maternal UTI (urinary tract infection) Problems Active (11/27/2023) Smoking Status: Former Smoker Functional Status: Sensory Deficits: History of Falls: Mobility Assistance Prior to Admission: ADLs: Independent Current Level of Assistance for Self-Care/Mobility: Cognitive Status: Allergies cloNIDine (Hives) Paxil (Insomnia) Laboratory or Other Results This Visit (last charted value for your 06/03/2024 visit) Hematology 06/04/2024 0:51 AM RBC Morph: NORMAL Hct: 33.7 % -- Normal range between ( 34.0 and 46.0 ) HGB: 11.6 gm/dL -- Normal range between ( 12.0 and 16.0 ) RBC: 3.9 E12/L -- Normal range between ( 4.3 and 5.9 ) RDW: 12.6 % -- Normal range between ( 10.9 and 14.2 ) MCH: 29.8 pg -- Normal range between ( 27.0 and 34.0 ) MCHC: 34.5 gm/dL -- Normal range between ( 31.4 and 36.0 ) MCV: 86.5 fL -- Normal range between ( 80.0 and 100.0 ) MPV: 8.4 fL -- Normal range between ( 6.4 and 10.8 ) Platelet: 315.0 E9/L -- Normal range between ( 150.0 and 500.0 ) WBC: 14.6 E9/L -- Normal range between ( 4.0 and 11.0 ) Coagulation 06/04/2024 0:51 AM INR: 0.94 Fibrinogen: 460 mg/dL -- Normal range between ( 200 and 393 ) PT: 10.5 second(s) -- Normal range between ( 9.4 and 12.5 ) PTT: 26.6 second(s) -- Normal range between ( 25.1 and 36.5 ) Urinalysis 06/03/2024 8:26 PM UA Bacteria: 3+ /HPF UA Bili: Negative mg/dL UA Color: Light-Savanna UA Glucose: Negative mg/dL UA Ketones: 3+ mg/dL UA Leuk Est: 500 Daniele/uL Daniele/uL UA Mucous: Trace graded/LPF UA Nitrite: Negative mg/dL UA Protein: 1+ mg/dL UA Sperm: Present graded/HPF UA Squam Epithelial: >10 graded/HPF UA Urobilinogen: Negative mg/dL UA WBC: 16-25 graded/HPF UA Spec Desc: Clean Catch UA Blood: Negative mg/dL UA Clarity: Ex.Turbid UA pH: 6.0 -- Normal range between ( 5.0 and 9.0 ) UA Spec Grav: 1.020 -- Normal range between ( 1.005 and 1.030 ) Chemistry 06/04/2024 0:51 AM Creatinine: 0.6 mg/dL -- Normal range between ( 0.5 and 1.3 ) A/G Ratio: 1.2 -- Normal range between ( 1.1 and 2.2 ) AGAP: 13 mEq/L -- Normal range between ( 6 and 16 ) Albumin Lvl: 3.5 gm/dL -- Normal range between ( 3.3 and 5.0 ) Alk Phos: 64 Int._Unit/L -- Normal range between ( 21 and 98 ) ALT: 6 Int._Unit/L -- Normal range between ( 6 and 46 ) AST: 12 Int._Unit/L -- Normal range between ( 5 and 43 ) Bili Direct: 0.1 mg/dL -- Normal range between ( 0.0 and 0.4 ) Bili Total: 0.3 mg/dL -- Normal range between ( 0.0 and 1.1 ) CO2: 21 mmol/L -- Normal range between ( 21 and 31 ) Sodium Lvl: 136 mmol/L -- Normal range between ( 135 and 145 ) Total Protein: 6.4 gm/dL -- Normal range between ( 6.0 and 7.8 ) BUN: 6 mg/dL -- Normal range between ( 5 and 21 ) Potassium Lvl: 3.4 mmol/L -- Normal range between ( 3.5 and 5.3 ) Uric Acid: 4.0 mg/dL -- Normal range between ( 2.2 and 7.4 ) Chloride: 105 mmol/L -- Normal range between ( 101 and 111 ) Bili Indirect: 0.2 mg/dL -- Normal range between ( 0.1 and 0.9 ) eGFR: 129 mL/min/1.73 m2 Globulin: 2.9 gm/dL -- Normal range between ( 1.4 and 4.0 ) 06/03/2024 8:25 PM U Benzodia Scr: NEGATIVE U Cocaine Scr: NEGATIVE U Opiate Scr: NEGATIVE U PCP Scr: NEGATIVE U Cannab Scr: NEGATIVE U Amph Scr: NEGATIVE U Mary Scr: NEGATIVE U Fentanyl: NEGATIVE Microbiology 06/03/2024 8:26 PM Urine Culture: NEG Blood Bank 06/04/2024 0:51 AM FMHV: 0 mL Measurements: Height: 165.1 cm Weight: 64.5 kg Blood Pressure: 122 mmHg / 66 mmHg BMI: 23.66 kg/m2 Procedures Betamethasone (06/04/2024) Betamethasone (06/03/2024) Immunizations No Immunizations Documented This Visit Final Med List: cephalexin (Keflex 500 mg Cap) 1 Capsules By Mouth 4 times a day for 7 Days. Refills: 0. multivitamin, ( Multivitamins) 1 Tablets By Mouth every day. Care Team Members: Attending Physician: Anika Bob MD Consulting Physician: Referring Physician: Follow up: With: Address: When: Dr. Bob [phone] Within 3 to 4 days Comments: Call for any problems. Call physician for heavy vaginal bleeding Call physician if sy (more content not included)... Normal [facility] Inpatient Patient Summaryon 06-05-2024 Inpatient Patient Summary Inpatient Patient Summary [place] [id number] Patient Discharge Instructions PERSON INFORMATION Name: LUZ HINOJOSA Date of : 2000 Current Date: 06/05/2024 14:16:35 PHYSICIANS Admitting Physician: Anika Bob MD Primary Care Physician: NONE, XXXX PCP Phone Number: Comment: Discharge Diagnosis: 27 weeks gestation of ; Active labor; Maternal UTI (urinary tract infection) Condition at Discharge: LUZ HINOJOSA has been given the following list of follow-up instructions, prescriptions, and patient education materials: PATIENT FOLLOW-UP INFORMATION Diet: Regular Activity: Wound Care Instructions: Remove Your Dressing IN: Days Call Your Doctor For: Temperature above 100 degrees, Persistent vomiting IF UNABLE TO CONTACT YOUR PHYSICIAN AND YOU FEEL IT IS AN EMERGENCY, GO TO THE NEAREST EMERGENCY ROOM OR CALL 911 Home Treatment: Devices/Equipment: Special Services: Additional Instructions: Physician to provide the following pending test results: Follow up: With: Address: When: Dr. Bob [phone] Within 3 to 4 days Comments: Call for any problems. Call physician for heavy vaginal bleeding Call physician if symptoms worsen Return for contractions closer, longer, harder Return for decreased movement In the event that this physician does not participate in your insurance network, please consult with your insurance company to find a nearby participating provider. Comment: IASHISH BRIANNA, have received the attached patient education materials/instructions and have verbalized understanding. Patient Signature Date Clinican/Nurse Signature Date MEDICATION LIST New Medications [facility] 1986, [address] [place], [place] [id number], [phone] cephalexin (Keflex 500 mg Cap) 1 Capsules By Mouth 4 times a day for 7 Days. Refills: 0. Last Dose: _Next Dose: _ Medications to Continue with No Changes Other Medications multivitamin, ( Multivitamins) 1 Tablets By Mouth every day. Last Dose: _Next Dose: _ Pharmacy Information: PATIENT EDUCATION INFORMATION Instructions: Medication Leaflets: You may receive a survey from [employer] asking you to rate your care experience. Your feedback is important and will help us understand what we do well and how we can improve the quality of care we provide to you, your loved ones and our community. It???s an honor to serve you. Patient Portal You may access all of your results and other medical record information on our secure patient portal. If you are not signed up for this yet, please contact [employer] at [phone] to get signed up today. COOPER Award Nomination The COOPER (Diseases Attacking the Immune SYstem) Award is an international recognition program that honors and celebrates the skillful, compassionate care nurses provide every day. Anyone who experiences or observes amazing care being provided by a nurse is encouraged to submit a nomination. To nominate your nurse, use your smart phone to scan the QR code below. Thank you for choosing [facility] Normal [facility] BLOOD BANKOrdered By: Joshua Guthrie on 06-04-2024 FMHV 0 mL Invalid Interpretation Code [facility] [place] BUNon 06-04-2024 Urea nitrogen [Mass/Vol] 6 mg/dL Normal 5-21 [facility] Comment on above: Performed By: #### 2 [id number] #### [facility] [address] [place] [address] CBC w/Indiceson 06-04-2024 Erythrocyte distribution width (RBC) [Ratio] 12.6 % Normal 10.9-14.2 [facility] Comment on above: Performed By: #### 2 [id number] #### [facility] [address] [place] [address] Hematocrit (Bld) [Volume fraction] 33.7 % Low 34.0-46.0 [facility] Comment on above: Performed By: #### 2 [id number] #### [facility] [address] [place] [address] Hemoglobin (Bld) [Mass/Vol] 11.6 g/dL Low 12.0-16.0 [facility] Comment on above: Performed By: #### 2 [id number] #### [facility] [address] [place] [address] MCH (RBC) [Entitic mass] 29.8 pg Normal 27.0-34.0 [facility] Comment on above: Performed By: #### 2 [id number] #### [facility] [address] [place] [address] MCHC (RBC) [Mass/Vol] 34.5 g/dL Normal 31.4-36.0 [facility] Comment on above: Performed By: #### 2 [id number] #### [facility] [address] [place] [address] MCV (RBC) [Entitic vol] 86.5 fL Normal 80.0-100.0 [facility] Comment on above: Performed By: #### 2 [id number] #### [facility] [address] [place] [address] Platelet mean volume (Bld) [Entitic vol] 8.4 fL Normal 6.4-10.8 [facility] Comment on above: Performed By: #### 2 [id number] #### [facility] [address] [place] [address] Platelets (Bld) [#/Vol] 315.0 E9/L Normal 150.0-500.0 [facility] Comment on above: Performed By: #### 2 [id number] #### [facility] [address] [place] [address] RBC (Bld) [#/Vol] 3.9 E12/L Low 4.3-5.9 [facility] Comment on above: Performed By: #### 2 [id number] #### [facility] [address] [place] [address] RBC size Nom (Bld) NORMAL Invalid Interpretation Code [facility] Comment on above: Performed By: #### 2 [id number] #### [facility] [address] [place] [address] WBC corrected for nucl RBC Auto (Bld) [#/Vol] 14.6 E9/L High 4.0-11.0 [facility] Comment on above: Performed By: #### 2 [id number] #### [facility] [address] [place] [address] CHEMISTRYOrdered By: SYSTEM SYSTEM on 06-04-2024 Albumin [Mass/Vol] 3.5 g/dL Normal 3.3 - 5.0 gm/dL Remisol Chem Albumin/Globulin [Mass ratio] 1.2 {ratio} Normal 1.1 - 2.2 Remisol Chem ALP [Catalytic activity/Vol] 64 [iU]/d Normal 21 - 98 Int._Unit/L Remisol Chem ALT No additional P-5'-P [Catalytic activity/Vol] 6 [iU]/d Normal 6 - 46 Int._Unit/L Remisol Chem Anion gap [Moles/Vol] 13 mmol/L Normal 6 - 16 mEq/L R emisol Chem AST [Catalytic activity/Vol] 12 [iU]/d Normal 5 - 43 Int._Unit/L Remisol Chem Bilirubin [Mass/Vol] 0.3 mg/dL Normal 0.0 - 1 .1 mg/dL Remisol Chem Bilirubin.direct [Mass/Vol] 0.1 mg/dL Normal 0.0 - 0.4 mg/dL Remisol Chem Bilirubin.indirect [Mass or moles/Vol] 0.2 mg/dL Normal 0.1 - 0.9 mg/dL Remisol Chem Chloride [Moles/Vol] 105 mmol/L Normal 101 - 1 11 mmol/L Remisol Chem CO2 [Moles/Vol] 21 mmol/L Normal 21 - 31 mmol/L Remisol Chem Creatinine [Mass/Vol] 0.6 mg/dL Normal 0.5 - 1.3 mg/dL Remisol Chem eGFR 129 mL/min/1.73 m2 Normal >=59mL/mi n/1 .73 m2 Remisol Chem Globulin (S) [Mass/Vol] 2.9 g/dL Normal 1.4 - 4.0 gm/dL Remisol Chem Potassium [Moles/Vol] 3.4 mmol/L Low 3.5 - 5.3 mmol/L Remisol Chem Protein [Mass/Vol] 6.4 g/dL Normal 6.0 - 7.8 gm/dL Remisol Chem Sodium [Moles/Vol] 136 mmol/L Normal 135 - 145 mmol/L Remisol Chem Urate [Mass/Vol] 4.0 mg/dL Normal 2.2 - 7.4 mg/dL Remisol Chem Urea nitrogen [Mass/Vol] 6 mg/dL Normal 5 - 21 mg/dL Remisol Chem COAGULATIONOrdered By: Joshua Guthrie on 06-04-2024 aPTT Coag (PPP) [Time] 26.6 s Normal 25.1 - 36.5 second(s) [facility] Comment on above: Interpretive Data: Aramis gale 15 days - 4 weeks 1 - 5 months 6 - 11 months 1 - 5 years 6 - 10 years 11 - 17 years PTT Mean: 35.4 (27.6-45.6) Mean: 33.5 (24.8-40.7) Mean: 32.4 (25.1-40.7) Mean: 31.6 (24.0-39.2) Mean: 31.6 (26.9-38.7) Mean: 31.0 (24.6-38.4) Pediatric Reference ranges were obtained from a study by Jn Mcfadden et al. prepared from 1437 samples obtained at 7 different centers using the same coagulation reagent and instrumentation as [facility]. Currently there are no coagulation studies available worldwide for children to 14 days, and no normal ranges. Heparin therapeutic range (represented by Anti-Factor Xa activity of 0.2 - 0.4 U/mL) corresponds to PTT of 56.6 - 109.0 sec. Fibrinogen Coag (PPP) [Mass/Vol] 460 mg/dL High 200 - 393 mg/dL [facility] INR Coag (PPP) [Relative time] 0.94 {INR} Invalid Interpretation Code [facility] Comment on above: Interpretive Data: I NR results are specifically intended to assess patients stabilized on long-term Anticoagulation therapy suggested INR s Less Intensive Anticoagulation 2.0 3.0 Conventional Range 3.0 4.5 PT Coag (PPP) [Time] 10.5 s Normal 9.4 - 1 2.5 second(s) [facility] Comment on above: Interpretive Data: 1 5 days - 4 weeks 1 - 5 months 6 -11 months 1 5 years 6 10 years 11 -17 years Mean: 11.2 (9.5 12.6) Mean: 11.0 (9.7 12.8) Mean: 11.0 (9.8 13.0) Mean: 11.3 (9.9 13.4) Mean: 11.7 (10.0 14.6) Mean: 11.8 (10.0 - 14.1) Pediatric Reference ranges were obtained from a study by Jn Mcfadden et al. prepared from 1437 samples obtained at 7 different centers using the same coagulation reagent and instrumentation as [facility]. Currently there are no coagulation studies available worldwide for children to 14 days, and no normal ranges. Creatinineon 06-04-2024 Creatinine [Mass/Vol] 0.6 mg/dL Normal 0.5-1.3 [facility] Comment on above: Performed By: #### 2 [id number] #### [facility] [address] [place] [address] Stainon 06-04-2024 FMHV 0 mL Invalid Interpretation Code [facility] Comment on above: Performed By: #### 1 [id number] #### [facility] [address] [place] [address] Negative Control Negative Normal [facility] Comment on above: Performed By: #### 1 [id number] #### [facility] [address] [place] [address] Fibrinogenon 06-04-2024 Fibrinogen Coag (PPP) [Mass/Vol] 460 mg/dL High 200-393 [facility] Comment on above: Performed By: #### 2 [id number] #### [facility] [address] [place] [address] HEMATOLOGYOrdered By: SYSTEM SYSTEM on 06-04-2024 Erythrocyte distribution width (RBC) [Ratio] 12.6 % Normal 10.9 - 14.2 % Remisol Heme Hematocrit (Bld) [Volume fraction] 33.7 % Low 34.0 - 46.0 % Remisol Heme Hemoglobin (Bld) [Mass/Vol] 11.6 g/dL Low 12.0 - 16.0 gm/dL Remisol Heme MCH (RBC) [Entitic mass] 29.8 pg Normal 27.0 - 34.0 pg Remisol Heme MCHC (RBC) [Mass/Vol] 34.5 g/dL Normal 31.4 - 36.0 gm/dL Remisol Heme MCV (RBC) [Entitic vol] 86.5 fL Normal 80.0 - 100.0 fL Remisol Heme Platelet mean volume (Bld) [Entitic vol] 8.4 fL Normal 6.4 - 10.8 fL Remisol Heme Platelets (Bld) [#/Vol] 315.0 E9/L Normal 150. 0 - 500.0 E9/L Remisol Heme RBC (Bld) [#/Vol] 3.9 E12/L Low 4.3 - 5.9 E12/L Remisol Heme RBC size Nom (Bld) NORMAL *NA* (06/04/24 12:51 AM) Invalid Interpretation Code Remisol Heme WBC corrected for nucl RBC Auto (Bld) [#/Vol] 14.6 E9/L High 4.0 - 11.0 E9/L Rem[facility] Heme Hep Func Panelon 06-04-2024 Albumin [Mass/Vol] 3.5 g/dL Normal 3.3-5.0 [facility] Comment on above: Performed By: #### 2 [id number] #### [facility] [address] [place] [address] Albumin/Globulin (S) [Mass conc ratio] 1.2 Normal 1.1-2.2 [facility] Comment on above: Performed By: #### 2 [id number] #### [facility] [address] [place] [address] ALP [Catalytic activity/Vol] 64 Int._Unit/L Normal 21-98 [facility] Comment on above: Performed By: #### 2 [id number] #### [facility] [address] [place] [address] ALT No additional P-5'-P [Catalytic activity/Vol] 6 Int._Unit/L Normal 6-46 [facility] Comment on above: Performed By: #### 2 [id number] #### [facility] [address] [place] [address] AST [Catalytic activity/Vol] 12 Int._Unit/L Normal 5-43 [facility] Comment on above: Performed By: #### 2 [id number] #### [facility] [address] [place] [address] Bilirubin [Mass/Vol] 0.3 mg/dL Normal 0.0-1.1 [facility] Comment on above: Performed By: #### 2 [id number] #### [facility] [address] [place] [address] Bilirubin.direct [Mass/Vol] 0.1 mg/dL Normal 0.0-0.4 [facility] Comment on above: Performed By: #### 2 [id number] #### [facility] [address] [place] [address] Bilirubin.indirect [Mass or moles/Vol] 0.2 mg/dL Normal 0.1-0.9 [facility] Comment on above: Performed By: #### 2 [id number] #### [facility] [address] [place] [address] Globulin (S) [Mass/Vol] 2.9 g/dL Normal 1.4-4.0 [facility] Comment on above: Performed By: #### 2 [id number] #### [facility] [address] [place] [address] Protein [Mass/Vol] 6.4 g/dL Normal 6.0-7.8 [facility] Comment on above: Performed By: #### 2 [id number] #### [facility] [address] [place] [address] Lyteson 11-13-2024 Anion gap [Moles/Vol] 13 mmol/L Normal 6-16 [facility] Comment on above: Performed By: #### 2 [id number] #### [facility] [address] [place] [address] Chloride [Moles/Vol] 105 mmol/L Normal 101-111 [facility] Comment on above: Performed By: #### 2 [id number] #### [facility] [address] [place] [address] CO2 [Moles/Vol] 21 mmol/L Normal 21-31 [facility] Comment on above: Performed By: #### 2 [id number] #### [facility] [address] [place] [address] Potassium [Moles/Vol] 3.4 mmol/L Low 3.5-5.3 [facility] Comment on above: Performed By: #### 2 [id number] #### [facility] [address] [place] [address] Sodium [Moles/Vol] 136 mmol/L Normal 135-145 [facility] Comment on above: Performed By: #### 2 [id number] #### [facility] [address] [place] [address] PT & PTTon 06-04-2024 aPTT Coag (PPP) [Time] 26.6 second(s) Normal 25.1-36.5 [facility] Comment on above: Result Comment: Para meter 15 days - 4 weeks 1 - 5 months 6 - 11 months 1 - 5 years 6 - 10 years 11 - 17 years PTT Mean: 35.4 (27.6-45.6) Mean: 33.5 (24.8-40.7) Mean: 32.4 (25.1-40.7) Mean: 31.6 (24.0-39.2) Mean: 31.6 (26.9-38.7) Mean: 31.0 (24.6-38.4) Pediatric Reference ranges were obtained from a study by chuck Lares al. prepared from 1437 samples obtained at 7 different centers using the same coagulation reagent and instrumentation as [facility]. Currently there are no coagulation studies available worldwide for children to 14 days, and no normal ranges. Heparin therapeutic range (represented by Anti-Factor Xa activity of 0.2 - 0.4 U/mL) corresponds to PTT of 56.6 - 109.0 sec. Performed By: #### 1 [id number] #### [facility] [address] [place] [address] INR Coag (PPP) [Relative time] 0.94 {INR} Invalid Interpretation Code [facility] Comment on above: Result Comment: INR results are specifically intended to assess patients stabilized on long-term Anticoagulation therapy suggested INR???s ???Less Intensive Anticoagulation??? 2.0 ??? 3.0 Conventional Range 3.0 ??? 4.5 Performed By: #### 1 [id number] #### [facility] [address] [place] [address] PT Coag (PPP) [Time] 10.5 second(s) Normal 9.4-12.5 [facility] Comment on above: Result Comment: 15 d ays - 4 weeks 1 - 5 months 6 -11 months 1 ??? 5 years 6 ??? 10 years 11 -17 years Mean: 11.2 (9.5 ??? 12.6) Mean: 11.0 (9.7 ??? 12.8) Mean: 11.0 (9.8 ??? 13.0) Mean: 11.3 (9.9 ??? 13.4) Mean: 11.7 (10.0 ??? 14.6) Mean: 11.8 (10.0 - 14.1) Pediatric Reference ranges were obtained from a study by Jn Mcfadden et al. prepared from 1437 samples obtained at 7 different centers using the same coagulation reagent and instrumentation as [facility]. Currently there are no coagulation studies available worldwide for children to 14 days, and no normal ranges. Performed By: #### 1 [id number] #### [facility] [address] [place] [address] U Drug Screenon 06-04-2024 Amphetamines Screen method >1000 ng/mL Ql (U) Negative Normal NEGATIVE [facility] Comment on above: Result Comment: Nega tive Cutoff: <1000 ng/mL Performed By: #### 2 [id number] #### [facility] [address] [place] [address] Barbiturates Screen Ql (U) Negative Normal NEGATIVE [facility] Comment on above: Result Comment: Nega tive Cutoff: <200 ng/mL Performed By: #### 2 [id number] #### [facility] [address] [place] [address] Benzodiazepines Ql (U) Negative Normal NEGATIVE [facility] Comment on above: Result Comment: Nega tive Cutoff: <200 ng/mL Performed By: #### 2 [id number] #### [facility] [address] [place] [address] Cannabinoids Screen Ql (U) Negative Normal NEGATIVE [facility] Comment on above: Result Comment: Nega tive Cutoff: <50 ng/mL Performed By: #### 2 [id number] #### [facility] [address] [place] [address] Cocaine Ql (U) Negative Normal NEGATIVE [facility] Comment on above: Result Comment: Nega tive Cutoff: <300 ng/mL Performed By: #### 2 [id number] #### [facility] [address] [place] [address] Opiates Screen Ql (U) Negative Normal NEGATIVE [facility] Comment on above: Result Comment: Nega tive Cutoff: <300 ng/mL Performed By: #### 2 [id number] #### [facility] [address] [place] [address] Phencyclidine Screen method >25 ng/mL Ql (U) Negative Normal NEGATIVE [facility] Comment on above: Result Comment: Nega tive Cutoff: <25 ng/mL These drug screen results are to be used for medical (i.e., treatment) purposes only. Unconfirmed drug screening results must not be used for non-medical purposes (e.g., employment testing, legal testing). Performed By: #### 2 [id number] #### [facility] [address] [place] [address] U Fentanyl Negative Normal NEGATIVE [facility] Comment on above: Result Comment: Nega tive Cutoff: <5 ng/mL These drug screen results are to be used for medical (i.e., treatment) purposes only. Unconfirmed drug screening results must not be used for non-medical purposes (e.g., employment testing, legal testing). Performed By: #### 2 [id number] #### [facility] [address] [place] [address] Uric Acidon 06-04-2024 Urate [Mass/Vol] 4.0 mg/dL Normal 2.2-7.4 [facility] Comment on above: Performed By: #### 2 [id number] #### [facility] [address] [place] [address] eGFRon 06-04-2024 eGFR 129 mL/min/1.73 m2 Normal >=59 [facility] Comment on above: Performed By: #### 1 [id number] #### [facility] [address] [place] [address] CHEMISTRYOrdered By: SYSTEM SYSTEM on 06-03-2024 Amphetamines Screen method >1000 ng/mL Ql (U) NEGATIVE 7 (06/03/24 8:25 PM) Normal NEGATIVE [facility] Comment on above: Interpretive Data: N egative Cutoff: <1000 ng/mL Barbiturates Screen Ql (U) NEGATIVE 8 (06/03/24 8:25 PM) Normal NEGATIVE [facility] Comment on above: Interpretive Data: N egative Cutoff: <200 ng/mL Benzodiazepines Ql (U) NEGATIVE 1 (06/03/24 8:25 PM) Normal NEGATIVE [facility] Comment on above: Interpretive Data: N egative Cutoff: <200 ng/mL Cannabinoids Screen Ql (U) NEGATIVE 6 (06/03/24 8:25 PM) Normal NEGATIVE [facility] Comment on above: Interpretive Data: N egative Cutoff: <50 ng/mL Cocaine Ql (U) NEGATIVE 2 (06/03/24 8:25 PM) Normal NEGATIVE [facility] Comment on above: Interpretive Data: N egative Cutoff: <300 ng/mL Opiates Screen Ql (U) NEGATIVE 4 (11/12/24 8:25 PM) Normal NEGATIVE [facility] Comment on above: Interpretive Data: N egative Cutoff: <300 ng/mL Phencyclidine Screen method >25 ng/mL Ql (U) NEGATIVE 5 (06/03/24 8:25 PM) Normal NEGATIVE [facility] Comment on above: Interpretive Data: N egative Cutoff: <25 ng/mL These drug screen results are to be used for medical (i.e., treatment) purposes only. Unconfirmed drug screening results must not be used for non-medical purposes (e.g., employment testing, legal testing). U Fentanyl NEGATIVE 12 (06/03/24 8:25 PM) Normal NEGATIVE [facility] Comment on above: Interpretive Data: N egative Cutoff: <5 ng/mL These drug screen results are to be used for medical (i.e., treatment) purposes only. Unconfirmed drug screening results must not be used for non-medical purposes (e.g., employment testing, legal testing). Laboratory - Microbiology an d Antimicrobial susceptibilityOrdered By: Melanie Anthony on 06-03-2024 Bacteria identified Cx Nom (U) 3,000 cfu/ml Mixed skin contaminants [facility] UA with Cult Rflxon 06-03-20 24 Bacteria Auto Ql (U) 3+ /HPF Abnormal Trace Fish [facility] Comment on above: Performed By: #### 4 [id number] #### [facility] [address] [place] [address] Bilirubin Ql (U) Negative Normal Negative [facility] Comment on above: Performed By: #### 4 [id number] #### [facility] [address] [place] [address] Clarity (U) Ex.Turbid Abnormal Clear [facility] Comment on above: Performed By: #### 4 [id number] #### [facility] [address] [place] [address] Color (U) Light-Savanna Abnormal Yellow [facility] Comment on above: Result Comment: Micr oscopic readings are only performed on those samples that meet specific criteria set forth by [facility]. Performed By: #### 4 [id number] #### [facility] [address] [place] [address] Epithelial cells.squamous Auto (Urine sed) [#/Area] >10 Invalid Interpretation Code [facility] Comment on above: Performed By: #### 4 [id number] #### [facility] [address] [place] [address] Glucose Ql (U) Negative Normal Negative [facility] Comment on above: Performed By: #### 4 [id number] #### [facility] [address] [place] [address] Hemoglobin Auto test strip (U) [Mass/Vol] Negative Normal Negative [facility] Comment on above: Performed By: #### 4 [id number] #### [facility] [address] [place] [address] Ketones Auto test strip Ql (U) 3+ mg/dL Abnormal Negative [facility] Comment on above: Performed By: #### 4 [id number] #### [facility] [address] [place] [address] Leukocyte esterase Auto test strip Ql (U) 500 Daniele/uL Abnormal Negative [facility] Comment on above: Performed By: #### 4 [id number] #### [facility] [address] [place] [address] Mucus Auto Ql (U) Trace Normal Negative [facility] Comment on above: Performed By: #### 4 [id number] #### [facility] [address] [place] [address] Nitrite Auto test strip Ql (U) Negative Normal Negative [facility] Comment on above: Performed By: #### 4 [id number] #### [facility] [address] [place] [address] pH (U) 6.0 [pH] Invalid Interpretation Code 5.0-9.0 [facility] Comment on above: Performed By: #### 4 [id number] #### [facility] [address] [place] [address] Protein Ql (U) 1+ mg/dL Abnormal Negative [facility] Comment on above: Performed By: #### 4 [id number] #### [facility] [address] [place] [address] Specific gravity (U) [Rel density] 1.020 Invalid Interpretation Code 1.005-1.030 [facility] Comment on above: Performed By: #### 4 [id number] #### [facility] [address] [place] [address] Spermatozoa Auto (Urine sed) [#/Area] Present Abnormal [facility] Comment on above: Performed By: #### 4 [id number] #### [facility] [address] [place] [address] Urobilinogen (U) [Mass/Vol] Negative Normal Negative [facility] Comment on above: Performed By: #### 4 [id number] #### [facility] [address] [place] [address] WBC Auto (Urine sed) [#/Area] 16-25 Abnormal 0-5 [facility] Comment on above: Performed By: #### 4 [id number] #### [facility] [address] [place] [address] Type of Urine collection method Clean Catch Normal [facility] Comment on above: Performed By: #### 4 [id number] #### [facility] [address] [place] [address] URINALYSISOrdered By: SYSTEM SYSTEM on 06-03-2024 Bacteria Auto Ql (U) 3+ /HPF Invalid Interpretation Code Trace/HPF [facility] Auto SS Bilirubin Ql (U) Negative Normal Negativemg/ d L [facility] Auto SS Clarity (U) Ex.Turbid *ABN* (06/03/24 8:26 PM) Invalid Interpretation Code Clear [facility] UA Auto SS Color (U) Light-Savanna 3 *ABN* (06/03/24 8:26 PM) Invalid Interpretation Code Yellow [facility] Auto SS Comment on above: Interpretive Data: M icroscopic readings are only performed on those samples that meet specific criteria set forth by [facility]. Epithelial cells.squamous Auto (Urine sed) [#/Area] >10 graded/HPF Invalid Interpretation Code [facility] Auto SS Glucose Ql (U) Negative Normal Negativemg/d L [facility] Auto SS Hemoglobin Auto test strip (U) [Mass/Vol] Negative Normal Negativemg/d L [facility] UA Auto SS Ketones Auto test strip Ql (U) 3+ mg/dL Invalid Interpretation Code Negativemg/d L [facility] UA Auto SS Leukocyte esterase Auto test strip Ql (U) 500 Daniele/uL Daniele/uL Invalid Interpretation Code NegativeLeu/ uL [facility] UA Auto SS Mucus Auto Ql (U) Trace graded/LPF Normal Negati vegrad ed/LPF [facility] UA Auto SS Nitrite Auto test strip Ql (U) Negative Normal Negativemg/d L [facility] UA Auto SS pH (U) 6.0 *NA* (06/03/24 8:26 PM) Invalid Interpretation Code 5.0 - 9.0 [facility] UA Auto SS Protein Ql (U) 1+ mg/dL Invalid Interpretation Code Negativemg/d L [facility] UA Auto SS Specific gravity (U) [Rel density] 1.020 *NA* (06/03/24 8:26 PM) Invalid Interpretation Code 1.005 - 1.030 [facility] UA Auto SS Spermatozoa Auto (Urine sed) [#/Area] Present graded/HPF Invalid Interpretation Code [facility] UA Auto SS Urobilinogen (U) [Mass/Vol] Negative Normal Negativemg/d L [facility] UA Auto SS WBC Auto (Urine sed) [#/Area] 16-25 graded/HPF Invalid Interpretation Code 0-5graded/HP F [facility] UA Auto SS URINALYSISOrdered By: Yulisa Gomez on 06-03-2024 UA Spec Desc Clean Catch (06/03/24 8:26 PM) Normal [facility] Auto SS PAP [id number] 02-08-2024 Cytology report Cyto stain Doc (Cvx/Vag) Note Invalid Interpretation Code [facility] Comment on above: Result Comment: TEST S RESULT FLAG UNITS REF RANGE LAB Clinician Provided Cytology Information Source.............[employer] No. of containers..01 ThinPrep Vial DIAGNOSIS: NEGATIVE FOR INTRAEPITHELIAL LESION OR MALIGNANCY. Specimen adequacy: 01 Satisfactory for evaluation. No endocervical component is identified. Performed by: 01 Yasmin Thompson, Scale Reclamation Tender ([facility]) . 01 Note: Note 02 The [...] <-Panic Low,>-Panic High,A-Abnormal,AA-Critical Abnormal Performed at: 01 [employer] [facility] [address] [place] [address] Michele Sims MD, 02 WB [facility] [address] [address] Jen Carpio MD, Performed at: [facility] [address] [place], [place] [id number] MD Bethany Bautista Performed By: #### 3 [id number] #### [facility] [address] [place] [address] C Urineon 02-07-2024 Bacteria identified Cx Nom [...] This test was performed at: [facility], [address] [place] [address], [address] , [place], Normal [facility] Comment on above: Performed By: #### 2 [id number] #### [facility] [address] [place] [address] HIV Screen 4th Generation wR fxon 02-07-2024 HIV 1+2 Ab+HIV1 p24 Ag IA Ql Non-Reactive Invalid Interpretation Code Non Reactive [facility] Comment on above: Result Comment: HIV- 1/HIV-2 antibodies and HIV-1 p24 antigen were NOT detected. There is no laboratory evidence of HIV infection. HIV Negative Performed at: [address] [id number] PhD Tim Quezada Performed By: #### 9 [id number] #### [facility] [address] [place] [address] Hep Bs Agon 02-07-2024 HBV surface Ag IA Ql Negative Invalid Interpretation Code Negative [facility] Comment on above: Result Comment: Perf ormed at: [address] [id number] PhD Tim Quezada Performed By: #### 2 [id number] #### [facility] [address] [place] [address] RPR with Conf Rfxon 02-07-20 24 Reagin Ab RPR Ql (S) Non-Reactive Invalid Interpretation Code Non Reactive [facility] Comment on above: Result Comment: Perf ormed at: [address] [id number] PhD Tim Quezada Performed By: #### 1 [id number] #### [facility] [address] [place] [address] Rubella IgGon 02-07-2024 Rubella virus IgG Qn (S) 2.78 [IU]/mL Invalid Interpretation Code Immune >0.99 [facility] Comment on above: Result Comment: Non- immune <0.90 Equivocal 0.90 - 0.99 Immune >0.99 Performed at: [facility] [address], [place] [id number] PhD Tim Quezada Performed By: #### 1 [id number] #### [facility] [address] [place] [address] ABO/Rhon 02-05-2024 ABO/Rh Positive Invalid Interpretation Code [facility] Comment on above: Performed By: #### 2 [id number] #### [facility] [address] [place] [address] ABSCon 02-05-2024 ABSC Gel Interp Negative Normal [facility] Comment on above: Performed By: #### 1 [id number] #### [facility] [address] [place] [address] CBC w/Indiceson 02-05-2024 Erythrocyte distribution width (RBC) [Ratio] 13.4 % Normal 10.9-14.2 [facility] Comment on above: Performed By: #### 2 [id number] #### [facility] [address] [place] [address] Hematocrit (Bld) [Volume fraction] 40.9 % Normal 34.0-46.0 [facility] Comment on above: Performed By: #### 2 [id number] #### [facility] [address] [place] [address] Hemoglobin (Bld) [Mass/Vol] 13.7 g/dL Normal 12.0-16.0 [facility] Comment on above: Performed By: #### 2 [id number] #### [facility] [address] [place] [address] MCH (RBC) [Entitic mass] 30.6 pg Normal 27.0-34.0 [facility] Comment on above: Performed By: #### 2 [id number] #### [facility] [address] [place] [address] MCHC (RBC) [Mass/Vol] 33.5 g/dL Normal 31.4-36.0 [facility] Comment on above: Performed By: #### 2 [id number] #### [facility] [address] [place] [address] MCV (RBC) [Entitic vol] 91.3 fL Normal 80.0-100.0 [facility] Comment on above: Performed By: #### 2 [id number] #### [facility] [address] [place] [address] Platelet 330.0 E9/L Normal 150.0-500.0 [facility] Comment on above: Performed By: #### 2 [id number] #### [facility] [address] [place] [address] Platelet mean volume (Bld) [Entitic vol] 9.4 fL Normal 6.4-10.8 [facility] Comment on above: Performed By: #### 2 [id number] #### [facility] [address] [place] [address] RBC (Bld) [#/Vol] 4.5 E12/L Normal 4.3-5.9 [facility] Comment on above: Performed By: #### 2 [id number] #### [facility] [address] [place] [address] RBC size Nom (Bld) NORMAL Invalid Interpretation Code [facility] Comment on above: Performed By: #### 2 [id number] #### [facility] [address] [place] [address] WBC corrected for nucl RBC Auto (Bld) [#/Vol] 10.9 E9/L Normal 4.0-11.0 [facility] Comment on above: Performed By: #### 2 [id number] #### [facility] [address] [place] [address] PAP [id number] 02-05-2024 Collection Technique BRUSH-SPATULA Normal [facility] Comment on above: Performed By: #### 3 [id number] #### [facility] [address] [place] [address] Gynecological Body Site ENDOCERVIX Normal [facility] Comment on above: Performed By: #### 3 [id number] #### [facility] [address] [place] [address] CBC panel Auto (Bld)on 02-03 Hematocrit (Bld) [Volume fraction] 41 % [facility] Hemoglobin (Bld) [Mass/Vol] 13.7 g/dL [facility] HBV surface Ag IA Qlon 02-03 External Hepatitis B Surface Ag Negative Negative, None Detected [facility] HIV 1+2 Ab+HIV1 p24 Ag IA Ql on 02-04-2024 HIV-1/HIV-2 Ab Negative [facility] Laboratory - Microbiology an d Antimicrobial susceptibilityon 02-04-2024 HCV Ab IA Ql Negative [facility] Reagin Ab RPR Ql (S) Non-Reactive Nonreactive [facility] Rubella virus IgG Ql (S) Immune [facility] N. gonorrhoeae DNA GIOVANNI+probe Ql (Cervical mucus)on 02-04-2024 C. trachomatis rRNA GIOVANNI+probe Ql (Unsp spec) Negative [facility] N. gonorrhoeae rRNA GIOVANNI+probe Ql (Unsp spec) Negative [facility] No Panel Informationon 02-03 [facility] Physician Orderon 01-13-2024 Physician Order [id number]#[id number] F Normal [facility] BhCG Quanton 01-09-2024 [place] [address] m[IU]/mL High 1-3 [facility] Comment on above: Result Comment: 'F N ON < 1 - 3' ' 0.2 - 1 WEEK = 5 TO 50' ' 1 - 2 WEEKS = 50 - 500' ' 2 - 3 WEEKS = 100 - 5000' ' 3 - 4 WEEKS = 500 - 61434' ' 4 - 5 WEEKS = 1000 - 35881' ' 5 - 6 WEEKS = 94031 - 185727' ' 6 - 8 WEEKS = 63811 - 989418' ' 8 - 12 WEEKS = 22032 - 584610' Performed By: #### 2 [id number] #### [facility] [address] [place] [address] CHEMISTRYOrdered By: SYSTEM SYSTEM on 01-09-2024 [place] [address] m[IU]/mL High 1 - 3 mIU/mL [facility] Comment on above: Result Comment: 'F N ON < 1 - 3' ' 0.2 - 1 WEEK = 5 TO 50' ' 1 - 2 WEEKS = 50 - 500' ' 2 - 3 WEEKS = 100 - 5000' ' 3 - 4 WEEKS = 500 - 70992' ' 4 - 5 WEEKS = 1000 - 50594' ' 5 - 6 WEEKS = 40674 - 045810' ' 6 - 8 WEEKS = 51625 - 997800' ' 8 - 12 WEEKS = 01864 - 225425' Progesterone Lvl 80.38 ng/mL Invalid Interpretation Code [...] Consent for Treatmenton 12-21 Consent for Treatment [id number]#[id number] F Normal [facility] Physician Orderon 01-09-2024 Physician Order [id number]#[id number] FF Normal [facility] Progesteroneon 01-09-2024 Progesterone Lvl 80.38 ng/mL Invalid Interpretation Code [facility] Comment on above: Result Comment: 'F N ON FOLLICULAR = 0.10 - 0.60' 'LUTEAL = 3.00 - 17.5' 'MIDLUTEAL = 3.30 - 18.6' 'POST-MENOPAUSE = 0.10 - 0.40' '-FIRST TRIMESTER = 8.30 - 66.5' 'SECOND TRIMESTER = 18.9 - 66.1' 'THIRD TRIMESTER = 35.8 - 312.4' 'MALES = 0.14 - 2.06' Result Verified by Dilution Performed By: #### 2 [id number] #### [facility] [address] [place] [address] Anti-Mullerian Hormone (AMH) on 09-27-2023 Mullerian inhibiting substance [Mass/Vol] 1.81 ng/mL Invalid Interpretation Code [facility] Comment on above: Result Comment: For assays employing antibodies, the possibility exists for interference by heterophile antibodies in the samples.1 1.Hermelinda Durán Interferences in Immunoassays - still a threat. Clin. Chem. 2000; 46: 1995-8657. This test was developed and its performance characteristics determined by [employer]. It has not been cleared or approved by the Food and Drug Administration. Reference Range: Females 20 - 25y: 1.23 - 11.51 Median 4.70 AMH concentrations of >= 1.06 ng/mL is correlated with a better response to ovarian stimulation, produced more retrievable oocytes and higher odds of live according to Evier et al. Fertility and Sterility. 2010: 94:3934-6603. The current AMH test method correlates with [...] exclude an AMH-secreting ovarian tumor. Performed at: [facility] [address] [place] [address] [id number] MD Todd Bedoya Performed By: #### 2 [id number], [id number], [id number], [id number], [id number] #### [facility] [address] [place] [address] FSH and LHon 09-27-2023 Follitropin Qn 2.8 m[IU]/mL Invalid Interpretation Code [facility] Comment on above: Result Comment: Adul t Female Range Follicular phase 3.5 - 12.5 Ovulation phase 4.7 - 21.5 Luteal phase 1.7 - 7.7 Postmenopausal 25.8 - 134.8 Performed at: [facility] [address] [place], [place] [id number] PhD Tim Quezada Performed By: #### 2 828202, [id number], [id number], [id number], [id number] #### [facility] [address] [place] [address] Lutropin Qn 3.8 m[IU]/mL Invalid Interpretation Code [facility] Comment on above: Result Comment: Adul t Female Range Follicular phase 2.4 - 12.6 Ovulation phase 14.0 - 95.6 Luteal phase 1.0 - 11.4 Postmenopausal 7.7 - 58.5 Performed By: #### 2 989360, [id number], [id number], [id number], [id number] #### [facility] [address] [place] [address] Insulin Lvlon 09-27-2023 Insulin Qn 31.9 u[IU]/mL High 2.6-24.9 [facility] Comment on above: Result Comment: Perf ormed at: [facility] [address] [place] [address] [id number] PhD Tim Quezada Performed By: #### 2 526649, [id number], [id number], [id number], [id number] #### [facility] [address] [place] [address] CHEMISTRYOrdered By: SYSTEM SYSTEM on 09-22-2023 Prolactin 14.07 ng/mL Normal 3.34 - 26.72 ng/mL [facility] Chem TSH Qn 1.94 m[IU]/L Normal 0.34 - 5.60 mcIU/mL [facility] Chem Consent for Treatmenton Consent for Treatment [id number] F Normal [facility] Physician Orderon 09-22-2023 Physician Order [id number] F Normal [facility] Prolactinon 09-22-2023 Prolactin 14.07 ng/mL Normal 3.34-26.72 [facility] Comment on above: Performed By: #### 2 701743, [id number], [id number], [id number], [id number] #### [facility] [address] [place] [address] TSHon 09-22-2023 TSH Qn 1.94 m[IU]/L Normal 0.34-5.60 [facility] Comment on above: Performed By: #### 2 138622, [id number], [id number], [id number], [id number] #### [facility] [address] [place] [address] Progesteroneon 08-27-2023 Progesterone [Mass/Vol] 5.4 ng/mL Normal U [facility] Comment on above: Result Comment: Ref Values Male <0.3- 1.2 Follicular Phase <0.3- 1.4 Luteal Phase 3.3-25.6 Mid-Luteal Phase 4.4-28.0 Postmenopausal <0.3- 0.7 Females: 1st Trimester 11.2- 90.0 2nd Trimester 25.6- 89.4 3RD Trimester 48.4-422.5 Patients receiving DHEA-S supplements may show false elevation of progesterone for results near 1.0 ng/mL. Contact laboratory at [phone] if alternative testing is needed. Performed By: #### 2 839-9 #### SYLVIA Alves ([id number]) [facility] ([facility]) [id number] [place] [address] Bacteria identifiedon 2022 Bacteria identified Cx Nom (U) Test: Urine Culture Specimen Source: Clean Catch/Voided Specimen Type: Urine Specimen Date: 07/13/2023 4:11 PM Result Date: 07/16/2023 11:09 AM Result Status: Final result Abnormal: No Resulting Lab: [facility] [address] [place] [address] CULTURE No significant growth Normal [facility] Comment on above: Performed By: #### 6 30-4 #### SYLVIA Alves ([id number]) [facility] ([facility]) [address] [place] [address] Bacteria identifiedon 2022 Bacteria identified Cx Nom (U) Test: Urine Culture Specimen Source: Clean Catch/Voided Specimen Type: Urine Specimen Date: 06/19/2023 5:42 PM Result Date: 06/21/2023 8:49 AM Result Status: Final result Abnormal: No Resulting Lab: [facility] [address] [place] [address] CULTURE Normal genitourinary ivy Normal [facility] Comment on above: Performed By: #### 6 30-4 ###Sridhar Alves ([id number]) [facility] ([facility]) [address] [place], [place] [id number] HCG ( test) IA.rapi d Ql (U)on 06-19-2023 HCG ( test) Ql (U) Negative Normal NEGATIVE [facility] Comment on above: Performed By: #### 8 0384-1 #### KELBY ROSS ([id number]) [facility] ([facility]) [address] [place] [address] HCG ( test) IA.rapi d Ql (U)Ordered By: Rob Burnham on 06-19-2023 HCG ( test) Ql (U) Negative NEGATIVE [facility] Interpretation and review of laboratory results Normal [facility] No Panel Informationon 06-19 Interpretation and review of laboratory results Abnormal [facility] Urinalysis complete W Reflex Culture panel (U)on 06-19-2023 Appearance (U) Hazy Normal Clear [facility] Comment on above: Performed By: #### 5 8077-9 #### KELBY ROSS ([id number]) [facility] ([facility]) [address] [place] [address] Bilirubin (U) [Mass/Vol] Negative Normal NEGATIVE [facility] Comment on above: Performed By: #### 5 8077-9 #### KELBY ROSS ([id number]) [facility] ([facility]) [address] [place] [address] 36909 Color (U) Yellow Normal Straw, Yellow [facility] Comment on above: Performed By: #### 5 8077-9 #### KELBY ROSS ([id number]) [facility] ([facility]) [address] [place] [address]304 Glucose Auto test strip (U) [Mass/Vol] Negative Normal NEGATIVE [facility] Comment on above: Performed By: #### 5 8077-9 #### KELBY ROSS ([id number]) [facility] ([facility]) [address] [place] [address]8435 Ketones (U) [Mass/Vol] 5 (TRACE) Abnormal NE[facility] Comment on above: Performed By: #### 5 8077-9 #### KELBY ROSS ([id number]) [facility] ([facility]) [address] [place] [address]1322 Leukocyte esterase Auto test strip Ql (U) TRACE Abnormal NEGATIVE [facility] Comment on above: Performed By: #### 5 8077-9 #### KELBY ROSS ([id number]) [facility] ([facility]) [address] [place] [address] 70618 Nitrite Auto test strip Ql (U) Negative Normal NEGATIVE [facility] Comment on above: Performed By: #### 5 8077-9 #### KELBY ROSS ([id number]) [facility] ([facility]) [address] [place] [address] 88291 pH (U) 5.0 [pH] Normal 5.0, 5.5, 6.0, 6.5, 7.0, 7.5, 8.0 [facility] Comment on above: Performed By: #### 5 8077-9 #### KELBY ROSS ([id number]) [facility] ([facility]) [address] [place] [address] 19179 Protein (U) [Mass/Vol] 100 (2+) Normal NEGATIVE [facility] Comment on above: Performed By: #### 5 8077-9 #### KELBY ROSS ([id number]) [facility] ([facility]) [address] [place] [address] 50461 RBC (U) [#/Vol] Negative Normal NEGATIVE [facility] Comment on above: Performed By: #### 5 8077-9 #### KELBY ROSS ([id number]) [facility] ([facility]) [address] [place] [address] 91722 Specific gravity (U) [Rel density] 1.031 Normal 1.005-1.035 [facility] Comment on above: Performed By: #### 5 8077-9 #### KELBY ROSS ([id number]) [facility] ([facility]) [address] [place] [address] 70642 Urobilinogen (U) [Mass/Vol] 2.0 mg/dL Normal <2.0 [facility] Comment on above: Result Comment: [...] By: #### 5 8077-9 #### KELBY ROSS ([id number]) [facility] ([facility]) [address] [place] [address] 17819 Appearance (U) Hazy Abnormal Clear [facility] Bilirubin (U) [Mass/Vol] Negative NEGATIVE [facility] Color (U) Yellow Straw, Yellow [facility] Glucose Auto test strip (U) [Mass/Vol] Negative NEGATIVE mg/dL [facility] Ketones (U) [Mass/Vol] 5 (TRACE) Abnormal NEGAT MADDIE mg/dL [facility] Leukocyte esterase Auto test strip Ql (U) TRACE Abnormal NEGATIVE [facility] Nitrite Auto test strip Ql (U) Negative NEGATIVE [facility] pH (U) 5.0 [pH] 5.0, 5.5, 6.0, 6.5, 7.0, 7.5, 8.0 [facility] Protein (U) [Mass/Vol] 100 (2+) Abnormal NEGAT MADDIE mg/dL [facility] RBC (U) [#/Vol] Negative NEGATIVE [facility] Specific gravity (U) [Rel density] 1.031 1.005 - 1.035 [facility] Urobilinogen (U) [Mass/Vol] 2.0 mg/dL Abnormal NINF - 2.0 mg/dL [facility] Comment on above: Due to a manufacturi [...] 10-25 (FEW) Normal Reference range not established. [facility] Comment on above: Performed By: #### 5 3315-8 #### KELBY ROSS ([id number]) [facility] ([facility]) [address] [place] [address] 41450 Mucus Auto (Urine sed) [#/Area] 2+ /LPF Normal Reference range not established. [facility] Comment on above: Performed By: #### 5 3315-8 #### KELBY ROSS ([id number]) [facility] ([facility]) [facility] [place] [address] RBC Auto (Urine sed) [#/Area] 3-5 Normal NONE, 1-2, 3-5 [facility] Comment on above: Performed By: #### 5 3315-8 #### KELBY ROSS ([id number]) [facility] ([facility]) [address] [place] [address] 25351 WBC Auto (Urine sed) [#/Area] 11-20 Abnormal 1-5, NONE [facility] Comment on above: Performed By: #### 5 3315-8 #### KELBY ROSS ([id number]) [facility] ([facility]) [address] [place] [address] 10325 Epithelial cells.squamous Auto (Urine sed) [#/Area] 10-25 (FEW) Reference range not established. /HPF [facility] Mucus Auto (Urine sed) [#/Area] 2+ Reference range not established. /LPF [facility] RBC Auto (Urine sed) [#/Area] 3-5 NONE, 1-2, 3-5 /HPF [facility] WBC Auto (Urine sed) [#/Area] 11-20 Abnormal 1-5, NONE /HPF [facility] Bacteria identifiedon 2022 Bacteria identified Cx Nom (U) Test: Urine Culture Specimen Source: Clean Catch/Voided Specimen Type: Urine Specimen Date: 05/18/2023 10:46 AM Result Date: 05/20/2023 8:13 AM Result Status: Final result Abnormal: No Resulting Lab: [facility] [id number] [place] [address] CULTURE No significant growth Normal [facility] Comment on above: Performed By: #### 6 30-4 #### SYLVIA Alves ([id number]) [facility] ([facility]) [address] [place] [address] POCT UA Automated manually r esultedon 05-18-2023 Appearance (U) Hazy Abnormal Clear [facility] Work Phone: Glucose Test strip (U) [Mass/Vol] Negative NEGATIVE mg/dl [facility] Work Phone: Hemoglobin Ql (U) MODERATE (2+) Abnormal NEGATIVE [facility] Work Phone: Interpretation and review of laboratory results Abnormal [facility] Work Phone: [phone] Leukocyte esterase Test strip Ql (U) Negative NEGATIVE [facility] Work Phone: [phone] Nitrite Ql (U) Negative NEGATIVE [facility] Work Phone: [phone] pH (U) 7.0 [pH] No Reference Range Established [facility] Work Phone: [phone] POC Bilirubin, Urine Negative NEGATIVE [facility] Work Phone: [phone] POC Color, Urine Yellow Straw, Yellow, Light-Yellow [facility] Work Phone: [phone] POC Ketones, Urine 15 (1+) Abnormal NEGATIVE mg/dl [facility] Work Phone: [phone] POC Protein, Urine 30 (1+) NEGATIVE, 30 (1+) mg/dl [facility] Work Phone: [phone] POC Specific Orrum, Urine 1.025 1.005 - 1.035 [facility] Work Phone: [phone] POC Urobilinogen, Urine 0.2 0.2, 1.0 EU/DL [facility] Work Phone: [phone] [facility] Work Phone: [phone] CBC AND DIFFERENTIALon 04-14 % AUTOMATED IMMATURE GRAN 0.2 % Normal 0.0 - 0.9 [facility] Comment on above: Result Comment: Tammie ture Granulocyte Count (IG) includes promyelocytes, myelocytes and metamyelocytes but does not include bands. Percent differential counts (%) should be interpreted in the context of the absolute cell counts (cells/L). Performed By: #### C BCDF #### [address] [address] Basophils (Bld) [#/Vol] 0.02 10*3/uL Normal 0.00 - 0.1 0 [facility] Comment on above: Performed By: #### C BCDF #### [address] [address] Basophils/100 WBC (Bld) 0.5 % Normal 0.0 - 2.0 [facility] Comment on above: Performed By: #### C BCDF #### [address] [address] Eosinophils (Bld) [#/Vol] 0.09 10*3/uL Normal 0.00 - 0.70 [facility] Comment on above: Performed By: #### C BCDF #### [address] [address] Eosinophils/100 WBC (Bld) 2.2 % Normal 0.0 - 6.0 [facility] Comment on above: Performed By: #### C BCDF #### [address] [address] Erythrocyte distribution width (RBC) [Ratio] 11.6 % Normal 11.5 - 14.5 [facility] Comment on above: Performed By: #### C BCDF #### [address] [address] Hematocrit (Bld) [Volume fraction] 43.6 % Normal 36.0 - 46.0 [facility] Comment on above: Performed By: #### C BCDF #### [address] [address] Hemoglobin (Bld) [Mass/Vol] 14.3 g/dL Normal 12.0 - 16.0 [facility] Comment on above: Performed By: #### C BCDF #### [address] [address] Lymphocytes (Bld) [#/Vol] 1.48 10*3/uL Normal 1.20 - 4.80 [facility] Comment on above: Performed By: #### C BCDF #### [address] [address] Lymphocytes/100 WBC (Bld) 36.5 % Normal 13.0 - 44.0 [facility] Comment on above: Performed By: #### C BCDF #### [address] [address] MCHC (RBC) [Mass/Vol] 32.8 g/dL Normal 32.0 - 36.0 [facility] Comment on above: Performed By: #### C BCDF #### [address] [address] MCV (RBC) [Entitic vol] 90 fL Normal 80 - 100 [facility] Comment on above: Performed By: #### C BCDF #### [address] [address] Monocytes (Bld) [#/Vol] 0.30 10*3/uL Normal 0.10 - 1.0 0 [facility] Comment on above: Performed By: #### C BCDF #### [address] [address] Monocytes/100 WBC (Bld) 7.4 % Normal 2.0 - 10.0 [facility] Comment on above: Performed By: #### C BCDF #### [address] [address] Neutrophils (Bld) [#/Vol] 2.16 10*3/uL Normal 1.20 - 7.70 [facility] Comment on above: Result Comment: Perc ent differential counts (%) should be interpreted in the context of the absolute cell counts (cells/L). Performed By: #### C BCDF #### [address] [address] Neutrophils/100 WBC (Bld) 53.2 % Normal 40.0 - 80.0 [facility] Comment on above: Performed By: #### C BCDF #### [address] [address] Platelets (Bld) [#/Vol] 267 10*3/uL Normal 150 - 450 [facility] Comment on above: Performed By: #### C BCDF #### [address] [address] RBC 4.84 x10E12/L Normal 4.00 - 5.20 [facility] Comment on above: Performed By: #### C BCDF #### [address] [place] [address] WBC (Bld) [#/Vol] 4.1 10*3/uL Low 4.4 - 11.3 [facility] Comment on above: Performed By: #### C BCDF #### [address] [address] COMPREHENSIVE PANELon 2022 Albumin [Mass/Vol] 4.4 g/dL Normal 3.4 - 5.0 [facility] Comment on above: Performed By: #### C MP #### [address] [address] ALP [Catalytic activity/Vol] 42 U/L Normal 33 - 110 [facility] Comment on above: Performed By: #### C MP #### [address] [address] ALT [Catalytic activity/Vol] 20 U/L Normal 7 - 45 [facility] Comment on above: Result Comment: Glory ents treated with Sulfasalazine may generate falsely decreased results for ALT. Performed By: #### C MP #### [address] [address] Anion gap [Moles/Vol] 13 mmol/L Normal 10 - 20 [facility] Comment on above: Performed By: #### C MP #### [address] [address] AST [Catalytic activity/Vol] 25 U/L Normal 9 - 39 [facility] Comment on above: Performed By: #### C MP #### [address] [address] Bilirubin [Mass/Vol] 0.6 mg/dL Normal 0.0 - 1.2 [facility] Comment on above: Performed By: #### C MP #### [address] [address] Calcium [Mass/Vol] 9.5 mg/dL Normal 8.6 - 10.3 [facility] Comment on above: Performed By: #### C MP #### [address] [address] Chloride [Moles/Vol] 106 mmol/L Normal 98 - 107 [facility] Comment on above: Performed By: #### C MP #### [address] [address] Creatinine [Mass/Vol] 0.82 mg/dL Normal 0.50 - 1.05 [facility] Comment on above: Performed By: #### C MP #### [address] [address] eGFR FEMALE >90 Normal >90 [facility] Comment on above: Result Comment: CALC ULATIONS OF ESTIMATED GFR ARE PERFORMED USING THE 2020 CKD-EPI STUDY REFIT EQUATION WITHOUT THE RACE VARIABLE FOR THE IDMS-TRACEABLE CREATININE METHODS. https://jasn.asnjournals.org/content/early/ASN.2020 096362 Performed By: #### C MP #### [address] [address] Glucose [Mass/Vol] 80 mg/dL Normal 74 - 99 [facility] Comment on above: Performed By: #### C MP #### [address] [address] HCO3 (Bld) [Moles/Vol] 25 mmol/L Normal 21 - 32 [facility] Comment on above: Performed By: #### C MP #### [address] [address] Potassium [Moles/Vol] 3.8 mmol/L Normal 3.5 - 5.3 [facility] Comment on above: Performed By: #### C MP #### [address] [address] Protein [Mass/Vol] 7.0 g/dL Normal 6.4 - 8.2 [facility] Comment on above: Performed By: #### C MP #### [address] [address] Sodium [Moles/Vol] 140 mmol/L Normal 136 - 145 [facility] Comment on above: Performed By: #### C MP #### [address] [address] Urea nitrogen [Mass/Vol] 5 mg/dL Low - [facility] Comment on above: Performed By: #### C MP #### [address] [address] HEMOGLOBIN A1Con 04-14-2023 Glucose [Mass/Vol] 88 mg/dL Normal [facility] Comment on above: Performed By: #### H BA1E #### [address] [address] HbA1c (Bld) [Mass fraction] 4.7 % Normal [facility] Comment on above: Result Comment: Diag nosis of Diabetes-Adults Non-Diabetic: < or = 5.6% Increased risk for developing diabetes: 5.7-6.4% Diagnostic of diabetes: > or = 6.5% . Monitoring of Diabetes Age (y) Therapeutic Goal (%) Adults: >18 <7.0 Pediatrics: 13-18 <7.5 7-12 <8.0 0- 6 7.5-8.5 [employer]. Diabetes Care 33(S1), Jul 2009. Performed By: #### H BA1E #### [address] [address] LIPID PANEL (CORONARY RISK 2 )on 04-14-2023 Cholesterol [Mass/Vol] 159 mg/dL Normal 0 - 199 [facility] Comment on above: Result Comment: . [...] dosing. Performed By: #### L IPID #### [address] [address] Cholesterol in HDL [Mass/Vol] 56.0 mg/dL Normal [facility] Comment on above: Result Comment: . AGE VERY LOW LOW NORMAL HIGH 0-19 Y < 35 < 40 40-45 ---- 20-24 Y ---- < 40 >45 ---- >24 Y ---- < 40 40-60 >60 . Performed By: #### L IPID #### [address] [address] Cholesterol in LDL [Mass/Vol] 87 mg/dL Normal 0 - 119 [facility] Comment on above: Result Comment: . NEAR BORD AGE DESIRABLE OPTIMAL HIGH HIGH VERY HIGH 0-19 Y 0 - 109 --- 110-129 >/= 130 ---- 20-24 Y 0 - 119 --- 120-159 >/= 160 ---- >24 Y 0 - 99 100-129 130-159 160-189 >/=190 . Performed By: #### L IPID #### [address] [address] Cholesterol in VLDL [Mass/Vol] 16 mg/dL Normal 0 - 40 [facility] Comment on above: Performed By: #### L IPID #### [address] [address] Cholesterol.total/Doris sterol in HDL [Mass ratio] 2.8 {ratio} Normal [facility] Comment on above: Result Comment: REF VALUES DESIRABLE < 3.4 HIGH RISK > 5.0 Performed By: #### L IPID #### [address] [address] NON-HDL CHOLESTEROL 103 mg/dL Normal 0 - 149 [facility] Comment on above: Result Comment: AGE DESIRABLE BORDERLINE HIGH HIGH VERY HIGH 0-19 Y 0 - 119 120 - 144 >/= 145 >/= 160 20-24 Y 0 - 149 150 - 189 >/= 190 ---- >24 Y 30 MG/DL ABOVE LDL CHOLESTEROL GOAL . Performed By: #### L IPID #### [address] [address] Triglyceride [Mass/Vol] 79 mg/dL Normal 0 - 149 [facility] Comment on above: Result Comment: [...] dosing. Performed By: #### L IPID #### [address] [address] TSH WITH REFLEX TO FREE T4 I F ABNORMALon 04-14-2023 TSH Qn 2.73 m[IU]/L Normal 0.44 - 3.98 [facility] Comment on above: Result Comment: TSH testing is performed using different testing methodology at [facility] than at other [facility]. Direct result comparisons should only be made within the same method. Performed By: #### T HYDS #### [address] [address] CBC AND DIFFERENTIALon 04-13 % AUTOMATED IMMATURE GRAN 0.2 % Normal 0.0 - 0.9 [facility] Comment on above: Result Comment: Tammie ture Granulocyte Count (IG) includes promyelocytes, myelocytes and metamyelocytes but does not include bands. Percent differential counts (%) should be interpreted in the context of the absolute cell counts (cells/L). Performed By: #### C BCDF ####[address] [address] Basophils (Bld) [#/Vol] 0.01 10*3/uL Normal 0.00 - 0.[address] [facility] Comment on above: Performed By: #### C BCDF ####[address] [address] Basophils/100 WBC (Bld) 0.2 % Normal 0.0 - 2.[address] [facility] Comment on above: Performed By: #### C BCDF ####[address] [address] Eosinophils (Bld) [#/Vol] 0.06 10*3/uL Normal 0.00 - 0.70 [facility] Comment on above: Performed By: #### C BCDF ####[address] [address] Eosinophils/100 WBC (Bld) 1.2 % Normal 0.0 - 6.0 [facility] Comment on above: Performed By: #### C BCDF ####[address] [address] Erythrocyte distribution width (RBC) [Ratio] 11.4 % Low 11.5 - 14.5 [facility] Comment on above: Performed By: #### C BCDF ####[address] [address] Hematocrit (Bld) [Volume fraction] 39.3 % Normal 36.0 - 46.0 [facility] Comment on above: Performed By: #### C BCDF ####[address] [address] Hemoglobin (Bld) [Mass/Vol] 13.4 g/dL Normal 12.0 - 16.0 [facility] Comment on above: Performed By: #### C BCDF ####[address] [address] Lymphocytes (Bld) [#/Vol] 1.39 10*3/uL Normal 1.20 - 4.80 [facility] Comment on above: Performed By: #### C BCDF ####[address] [address] Lymphocytes/100 WBC (Bld) 27.9 % Normal 13.0 - 44.0 [facility] Comment on above: Performed By: #### C BCDF ####[address] [address] MCHC (RBC) [Mass/Vol] 34.1 g/dL Normal 32.0 - 36.0 [facility] Comment on above: Performed By: #### C BCDF ####[address] [address] MCV (RBC) [Entitic vol] 88 fL Normal 80 - [address] [facility] Comment on above: Performed By: #### C BCDF ####[address] [address] Monocytes (Bld) [#/Vol] 0.49 10*3/uL Normal 0.10 - 1.[address] [facility] Comment on above: Performed By: #### C BCDF ####[address] [address] Monocytes/100 WBC (Bld) 9.8 % Normal 2.0 - 10.[address] [facility] Comment on above: Performed By: #### C BCDF ####[address] [address] Neutrophils (Bld) [#/Vol] 3.03 10*3/uL Normal 1.20 - 7.70 [facility] Comment on above: Result Comment: Perc ent differential counts (%) should be interpreted in the context of the absolute cell counts (cells/L). Performed By: #### C BCDF ####[address] [address] Neutrophils/100 WBC (Bld) 60.7 % Normal 40.0 - 80.0 [facility] Comment on above: Performed By: #### C BCDF ####[address] [address] Platelets (Bld) [#/Vol] 275 10*3/uL Normal 150 - 450 [facility] Comment on above: Performed By: #### C BCDF ####[address] [address] RBC 4.45 x10E12/L Normal 4.00 - 5.20 [facility] Comment on above: Performed By: #### C BCDF ####[address] [address] WBC (Bld) [#/Vol] 5.0 10*3/uL Normal 4.4 - 11.3 [facility] Comment on above: Performed By: #### C BCDF ####[address] [address] COMPREHENSIVE PANELon 2022 Albumin [Mass/Vol] 4.2 g/dL Normal 3.4 - 5.0 [facility] Comment on above: Performed By: #### C MP ####[address] [address] ALP [Catalytic activity/Vol] 40 U/L Normal 33 - 110 [facility] Comment on above: Performed By: #### C MP ####[place] [id number] ALT [Catalytic activity/Vol] 12 U/L Normal 7 - 45 [facility] Comment on above: Result Comment: Glory ents treated with Sulfasalazine may generate falsely decreased results for ALT. Performed By: #### C MP ####[place] [id number] Anion gap [Moles/Vol] 11 mmol/L Normal 10 - 20 [facility] Comment on above: Performed By: #### C MP ####[place] [id number] AST [Catalytic activity/Vol] 17 U/L Normal 9 - 39 [facility] Comment on above: Performed By: #### C MP ####[address] [address] Bilirubin [Mass/Vol] 0.5 mg/dL Normal 0.0 - 1.2 [facility] Comment on above: Performed By: #### C MP ####[address] [address] Calcium [Mass/Vol] 8.9 mg/dL Normal 8.6 - 10.3 [facility] Comment on above: Performed By: #### C MP ####[address] [address] Chloride [Moles/Vol] 106 mmol/L Normal 98 - 107 [facility] Comment on above: Performed By: #### C MP ####[address] [address] Creatinine [Mass/Vol] 0.85 mg/dL Normal 0.50 - 1.05 [facility] Comment on above: Performed By: #### C MP ####[address] [address] eGFR FEMALE >90 Normal >90 [facility] Comment on above: Result Comment: CALC ULATIONS OF ESTIMATED GFR ARE PERFORMED USING THE 2020 CKD-EPI STUDY REFIT EQUATION WITHOUT THE RACE VARIABLE FOR THE IDMS-TRACEABLE CREATININE METHODS. https://jasn.asnjournals.org/content/early/ASN.2020 824575 Performed By: #### C MP ####[address] [address] Glucose [Mass/Vol] 87 mg/dL Normal 74 - 99 [facility] Comment on above: Performed By: #### C MP ####[address] [address] HCO3 (Bld) [Moles/Vol] 26 mmol/L Normal 21 - 32 [facility] Comment on above: Performed By: #### C MP ####[address] [address] Potassium [Moles/Vol] 3.4 mmol/L Low 3.5 - 5.3 [facility] Comment on above: Performed By: #### C MP ####[address] [address] Protein [Mass/Vol] 6.8 g/dL Normal 6.4 - 8.2 [facility] Comment on above: Performed By: #### C MP ####[address] [address] Sodium [Moles/Vol] 140 mmol/L Normal 136 - 145 [facility] Comment on above: Performed By: #### C MP ####[address] [address] Urea nitrogen [Mass/Vol] 6 mg/dL Normal 6 - 23 [facility] Comment on above: Performed By: #### C MP ####[address] [address] HCG,URINEon 04-13-2023 Beta HCG ( test) Ql (U) Negative Normal Negative [facility] Comment on above: Performed By: #### H CGU ####[facility] [place] [address] Provider Note - ED v3on 03-24 Provider [...] Obtained from: Significant other at the bedside. -------- Physical Exam: VS: As documented in [...] a day SIGNIFICANT EVENTS: Past Medical History Description:Albin teeth extraction CRITICAL CARE RESULTS: Recent Lab [...] Reference Range: STRAW,YELLOW Appearance, Urine CLEAR Specific Orrum, Urine 1.010 pH, Urine 7.0 Protein, Urine NEGATIVE Glucose, Urine NEGATIVE Blood, Urine NEGATIVE Ketones, Urine NEGATIVE Bilirubin, Urine NEGATIVE Urobilinogen, Urine <2.0 Nitrite, Urine Negative Leukocyte Esterase, Urine NEGATIVE VITAL SIGNS: T PRBP SpO2O2(LPM) %FiO2 Method 13-Apr-2023 13:54:[id number] 94 13-Apr-2023 13:13:[id number] 99 room air, no respiratory support 13-Apr-2023 12:55:[id number] 99 room air, no respiratory support [facility] MDM/ED COURSE: Medical Decision Making: Patient appears well and nontoxic. Vital signs within normal limits. Lab work otherwise unremarkable. Urine without acute infection. Patient given 1 L normal saline. Advised on [id number] Motrin and Tylenol. Asked to follow-up with primary care. Stable at time of discharge. Differential Diagnoses Considered: Musculoskeletal pain, UTI, kidney stone Escalation of Care: (more content not included)... Normal [facility] Triage - EDon 04-13-2023 Triage - [...] support. Weight: 121.2 pounds. Calculated 55.0 kg. [place] Coma Scale: Best Eye Response: (E4) spontaneous [...] History Reviewedyes Electronic Signatures: Imelda Ramirez) (Signed 13-Apr-2023 13:15) Entered: Risk Screens, Pain, Travel History, Chart Review, Scores, Past Medical History Authored: Quick Triage, Risk Screens, Pain, Travel History, Chart Review, Scores, Past Medical History Last Updated: 13-Apr-2023 13:15 by Imelda Ramirez (RN) Normal [facility] URINALYSISon 04-13-2023 Appearance (U) CLEAR Normal CLEAR [facility] Comment on above: Performed By: #### U A ####[place] [address] Bilirubin Ql (U) Negative Normal NEGATIVE [facility] Comment on above: Performed By: #### U A ####[place] [address] Color (U) Yellow Normal STRAW,YELLOW [facility] Comment on above: Performed By: #### U A ####[place] [address] Glucose Ql (U) Negative Normal NEGATIVE [facility] Comment on above: Performed By: #### U A ####[place] [address] Hemoglobin Ql (U) Negative Normal NEGATIVE [facility] Comment on above: Performed By: #### U A ####[place] [address] Ketones Ql (U) Negative Normal NEGATIVE [facility] Comment on above: Performed By: #### U A ####[place] [address] Leukocyte esterase Test strip Ql (U) Negative Normal NEGATIVE [facility] Comment on above: Performed By: #### U A ####[place] [id number] Nitrite Ql (U) Negative Normal NEGATIVE [facility] Comment on above: Performed By: #### U A ####[place] [id number] pH (U) 7.0 [pH] Normal 5.0 - 8.0 [facility] Comment on above: Performed By: #### U A ####[place] [address] Protein Ql (U) Negative Normal NEGATIVE [facility] Comment on above: Performed By: #### U A ####[address] [address] Specific gravity (U) [Rel density] 1.010 Normal 1.005 - 1.035 [facility] Comment on above: Performed By: #### U A ####[address] [address] Urobilinogen (U) [Mass/Vol] mg/dL Normal 0.0 - 1.9 [facility] Comment on above: Performed By: #### U A ####[address] [address] BASIC METABOLIC PANELon 03-24 Creatinine [Mass/Vol] 1.33 mg/dL High 0.50 - 1.05 [facility] Comment on above: Result Comment: Conf irmed by repeat analysis Performed By: #### B MP ####[address] [address] GFR/1.73 sq M.predicted among non-blacks MDRD (S/P/Bld) [Vol rate/Area] 58 mL/min/{1.73_m2} Abnormal >90 [facility] Comment on above: Result Comment: CALC ULATIONS OF ESTIMATED GFR ARE PERFORMED USING THE 2020 CKD-EPI STUDY REFIT EQUATION WITHOUT THE RACE VARIABLE FOR THE IDMS-TRACEABLE CREATININE METHODS. https://jasn.asnjournals.org/content/early//ASN.2020 059449 Performed By: #### B MP ####[address] [address] Anion gap [Moles/Vol] 8 mmol/L Low 10 - 20 [facility] Comment on above: Performed By: #### B MP ####[address] [address] Calcium [Mass/Vol] 8.0 mg/dL Low 8.6 - 10.3 [facility] Comment on above: Performed By: #### B MP ####[address] [address] Chloride [Moles/Vol] 115 mmol/L High 98 - 107 [facility] Comment on above: Performed By: #### B MP ####[address] [address] Glucose [Mass/Vol] 90 mg/dL Normal 74 - 99 [facility] Comment on above: Performed By: #### B MP ####[address] [address] HCO3 (Bld) [Moles/Vol] 23 mmol/L Normal 21 - 32 [facility] Comment on above: Performed By: #### B MP ####[address] [address] Potassium [Moles/Vol] 3.9 mmol/L Normal 3.5 - 5.3 [facility] Comment on above: Performed By: #### B MP ####[address] [address] Sodium [Moles/Vol] 142 mmol/L Normal 136 - 145 [facility] Comment on above: Performed By: #### B MP ####[address] [address] Urea nitrogen [Mass/Vol] 10 mg/dL Normal 6 - 23 [facility] Comment on above: Performed By: #### B MP ####[address] [address] CBCon 04-11-2023 Erythrocyte distribution width (RBC) [Ratio] 11.8 % Normal 11.5 - 14.5 [facility] Comment on above: Performed By: #### U ARFX #### [address] [address] Hematocrit (Bld) [Volume fraction] 34.9 % Low 36.0 - 46.0 [facility] Comment on above: Performed By: #### U ARFX #### [address] [address] Hemoglobin (Bld) [Mass/Vol] 11.5 g/dL Low 12.0 - 16.0 [facility] Comment on above: Performed By: #### U ARFX #### [address] [address] MCHC (RBC) [Mass/Vol] 33.0 g/dL Normal 32.0 - 36.0 [facility] Comment on above: Performed By: #### U ARFX #### [address] [address] MCV (RBC) [Entitic vol] 90 fL Normal 80 - [address] [facility] Comment on above: Performed By: #### U ARFX #### [address] [address] Platelets (Bld) [#/Vol] 213 10*3/uL Normal 150 - 450 [facility] Comment on above: Performed By: #### U ARFX #### [address] [address] RBC 3.86 x10E12/L Low 4.00 - 5.20 [facility] Comment on above: Performed By: #### U ARFX #### [address] [address] WBC (Bld) [#/Vol] 4.4 10*3/uL Normal 4.4 - 11.3 [facility] Comment on above: Performed By: #### U ARFX #### [address] [address] Discharge [id number] Discharge Profile2 Discharge Orders: Anticipated Discharge Date: Anticipated Discharge [id number] Code Status: Code Status at Discharge: Full [...] at 11-Apr-2023 09:34:24 Appointments: Follow-Up Appointment 01: Physician[facility]Dept/ServicePr [facility] Jordyn Thakur Reason for ReferralPyelonephritis, acute kidney injury Call to Schedule in1 week LocationS Alana [place] Phone [phone] Annamarie will call and make her own appointment. 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 BASIC METABOLIC PANELon 03-23 Anion gap [Moles/Vol] 11 mmol/L Normal 10 - 20 [facility] Comment on above: Performed By: #### B MP ####[address] [address] Calcium [Mass/Vol] 8.4 mg/dL Low 8.6 - 10.3 [facility] Comment on above: Performed By: #### B MP ####[address] [address] Chloride [Moles/Vol] 109 mmol/L High 98 - 107 [facility] Comment on above: Performed By: #### B MP ####[address] [address] Creatinine [Mass/Vol] 2.30 mg/dL High 0.50 - 1.05 [facility] Comment on above: Performed By: #### B MP ####[address] [address] GFR/1.73 sq M.predicted among non-blacks MDRD (S/P/Bld) [Vol rate/Area] 30 mL/min/{1.73_m2} Abnormal >90 [facility] Comment on above: Result Comment: CALC ULATIONS OF ESTIMATED GFR ARE PERFORMED USING THE 2020 CKD-EPI STUDY REFIT EQUATION WITHOUT THE RACE VARIABLE FOR THE IDMS-TRACEABLE CREATININE METHODS. https://jasn.asnjournals.org/content/early/ASN.2020 147074 Performed By: #### B MP ####[address] [address] Glucose [Mass/Vol] 84 mg/dL Normal 74 - 99 [facility] Comment on above: Performed By: #### B MP ####[address] [address] HCO3 (Bld) [Moles/Vol] 23 mmol/L Normal 21 - 32 [facility] Comment on above: Performed By: #### B MP ####[address] [address] Potassium [Moles/Vol] 3.8 mmol/L Normal 3.5 - 5.3 [facility] Comment on above: Performed By: #### B MP ####[address] [address] Sodium [Moles/Vol] 139 mmol/L Normal 136 - 145 [facility] Comment on above: Performed By: #### B MP ####[address] [address] Urea nitrogen [Mass/Vol] 20 mg/dL Normal 6 - 23 [facility] Comment on above: Performed By: #### B MP ####[address] [address] CBCon 04-10-2023 Erythrocyte distribution width (RBC) [Ratio] 11.9 % Normal 11.5 - 14.5 [facility] Comment on above: Performed By: #### U ARFX #### [address] [address] Hematocrit (Bld) [Volume fraction] 37.4 % Normal 36.0 - 46.0 [facility] Comment on above: Performed By: #### U ARFX #### [address] [address] Hemoglobin (Bld) [Mass/Vol] 12.3 g/dL Normal 12.0 - 16.0 [facility] Comment on above: Performed By: #### U ARFX #### [address] [address] MCHC (RBC) [Mass/Vol] 32.9 g/dL Normal 32.0 - 36.0 [facility] Comment on above: Performed By: #### U ARFX #### [address] [address] MCV (RBC) [Entitic vol] 90 fL Normal 80 - [address] [facility] Comment on above: Performed By: #### U ARFX #### [address] [address] Platelets (Bld) [#/Vol] 239 10*3/uL Normal 150 - 450 [facility] Comment on above: Performed By: #### U ARFX #### [address] [address] RBC 4.16 x10E12/L Normal 4.00 - 5.20 [facility] Comment on above: Performed By: #### U ARFX #### [address] [address] WBC (Bld) [#/Vol] 8.0 10*3/uL Normal 4.4 - 11.3 [facility] Comment on above: Performed By: #### U ARFX #### [facility] [address] [place] [address] Daily Progress Note-Medicine on 04-10-2023 Daily Progress Note-Medicine Service: Medicine Subjective Data: LUZ HINOJOSA is a 22 year old Female who is Hospital Day # 2. Patient feeling better no longer nauseated or vomiting. Was able to tolerate diet. Still having some left flank pain. Objective Data: Objective Information: T PRBPMAPSpO2 [id number]% Date/Time04/10 8: 8: 8: 8: 8: 8:04 [...] or homicidal ideation Medication: Medications: Continuous Medications -------- 1. Sodium Chloride 0.9% Infusion: 1000 mL IntraVenous Scheduled Medications -------- 1. cefTRIAXone 1 gram/ Dextrose 5% IVPB Premixed Soln 50 mL: 50 mL IntraVenous Piggyback Every 24 Hours 2. Pantoprazole: 40 mg Oral Daily PRN Medications -------- 1. Acetaminophen: 650 mg Oral Every 4 [...] BUN / 139 109 H 20 / -------- Glucose --- 84 K+ HCO3- Creat \ 3.8 23 [...] if there are errors there due to sales support assistant. Bautista Villanueva Hospitalist Electronic Signatures: Bautista Villanueva) (Signed 10-Apr-2023 11:04) Authored: Service, Subjective Data, Objective Data, Assessment and Plan, Note Completion Last Updated: 10-Apr-2023 11:04 by Bautista Villanueva) Normal [facility] MAGNESIUMon 04-10-2023 Magnesium [Mass/Vol] 1.72 mg/dL Normal 1.60 - 2.40 [facility] Comment on above: Performed By: #### M G ####[place] [address] Admission Risk Screen - Adul ton 04-09-2023 Admission Risk Screen - Adult Allergies: Allergies: clonidine: Hives/Urticaria Patient Verification: New W ID Band Applied in my Departmentno Type of ID Patient is WearingW wristband, but not applied here Patient Transferred from Other Facility ([facility], [facility],etc)no Patient Identity Verified Bypatient ID Band FULL [...] AlertFor Ebola-like Symptoms: Isolate Patient and Notify Provider/Dry House Attendant For Contact: Notify Provider/Dry House Attendant Advance Directive: Advance Directive/DNRno (2) Advance Directive Information Givenpatient/family declined [place] Fall Screen: History of falling (immediate or previous)no (0) Secondary Diagnosisno (0) Intravenous Therapy/ Heparin/Saline Lockyes (20) Gait/Transferringnormal/ bedrest/wheelchair (0) Ambulatory Aidsnone/bedrest/nurse assist (0) Mental Statusoriented [...] material; verbal instruction Cultural Considerationsnone Developmental Considerationsnone Sabianist Considerationsnone Learning Assessment (Other Learner): Other learner availableno Depression Screen: During the past month, have you often been bothered by feeling down, depressed or hopelessno During the past month, have you often had little interest or pleasure in doing thingsno Have you had any thoughts of harming anyone elseno (1) [place] Suicide: Risk Screen Not Applicable/Able to Answerable to be screened In the Past Month: Have you wished you were or could go to sleep and not wake upno(1) In the Past Month: Have you had any actual thoughts of killing yourself no(1) Lifetime: Have you ever done, started to do, or prepared to do anything to end your lifeno [place] Suicide Risknegative Adult Nutrition Screen: Have you [...] there any (more content not included)... Normal [facility] BASIC METABOLIC PANELon 03-23 Anion gap [Moles/Vol] 14 mmol/L Normal 10 - 20 [facility] Comment on above: Performed By: #### U ARFX #### [address] [address] Calcium [Mass/Vol] 8.1 mg/dL Low 8.6 - 10.3 [facility] Comment on above: Performed By: #### U ARFX #### [address] [address] Chloride [Moles/Vol] 112 mmol/L High 98 - 107 [facility] Comment on above: Performed By: #### U ARFX #### [address] [address] Creatinine [Mass/Vol] 2.16 mg/dL High 0.50 - 1.05 [facility] Comment on above: Performed By: #### U ARFX #### [address] [address] GFR/1.73 sq M.predicted among non-blacks MDRD (S/P/Bld) [Vol rate/Area] 32 mL/min/{1.73_m2} Abnormal >90 [facility] Comment on above: Result Comment: CALC ULATIONS OF ESTIMATED GFR ARE PERFORMED USING THE 2020 CKD-EPI STUDY REFIT EQUATION WITHOUT THE RACE VARIABLE FOR THE IDMS-TRACEABLE CREATININE METHODS. https://jasn.asnjournals.org/content/early//ASN.2020 874545 Performed By: #### U ARFX #### [address] [address] Glucose [Mass/Vol] 74 mg/dL Normal 74 - 99 [facility] Comment on above: Performed By: #### U ARFX #### [address] [address] HCO3 (Bld) [Moles/Vol] 19 mmol/L Low 21 - 32 [facility] Comment on above: Performed By: #### U ARFX #### [address] [address] Potassium [Moles/Vol] 3.9 mmol/L Normal 3.5 - 5.3 [facility] Comment on above: Performed By: #### U ARFX #### [address] [address] Sodium [Moles/Vol] 141 mmol/L Normal 136 - 145 [facility] Comment on above: Performed By: #### U ARFX #### [address] [address] Urea nitrogen [Mass/Vol] 19 mg/dL Normal 6 - 23 [facility] Comment on above: Performed By: #### U ARFX #### [address] [address] Anion gap [Moles/Vol] 14 mmol/L Normal 10 - 20 [facility] Comment on above: Performed By: #### B MP ####[address] [address] Calcium [Mass/Vol] 9.5 mg/dL Normal 8.6 - 10.3 [facility] Comment on above: Performed By: #### B MP ####[address] [address] Chloride [Moles/Vol] 107 mmol/L Normal 98 - 107 [facility] Comment on above: Performed By: #### B MP ####[address] [address] Creatinine [Mass/Vol] 2.20 mg/dL High 0.50 - 1.05 [facility] Comment on above: Performed By: #### B MP ####[address] [address] GFR/1.73 sq M.predicted among non-blacks MDRD (S/P/Bld) [Vol rate/Area] 32 mL/min/{1.73_m2} Abnormal >90 [facility] Comment on above: Result Comment: CALC ULATIONS OF ESTIMATED GFR ARE PERFORMED USING THE 2020 CKD-EPI STUDY REFIT EQUATION WITHOUT THE RACE VARIABLE FOR THE IDMS-TRACEABLE CREATININE METHODS. https://jasn.asnjournals.org/content//ASN.2020 993245 Performed By: #### B MP ####[address] [address] Glucose [Mass/Vol] 91 mg/dL Normal 74 - 99 [facility] Comment on above: Performed By: #### B MP ####[address] [address] HCO3 (Bld) [Moles/Vol] 23 mmol/L Normal 21 - 32 [facility] Comment on above: Performed By: #### B MP ####[address] [address] Potassium [Moles/Vol] 3.7 mmol/L Normal 3.5 - 5.3 [facility] Comment on above: Performed By: #### B MP ####[address] [address] Sodium [Moles/Vol] 140 mmol/L Normal 136 - 145 [facility] Comment on above: Performed By: #### B MP ####[place] [address] [place] [address] Urea nitrogen [Mass/Vol] 20 mg/dL Normal - [facility] Comment on above: Performed By: #### B MP ####[address] [address] BLOOD CULTURE, BACTERIALon 0 04-09-2023 BLOOD CULTURE, BACTERIAL PATIENT: LUZ HINOJOSA LOCATION: [address]#: [id number] : [birth year] AGE: SEX: F ORDERED BY: ALIE RODRIGUEZ SOURCE: Blood COLLECTED: 04/09/23 14:05 ANTIBIOTICS AT IZABEL.: RECEIVED : 04/10/23 01:43 SITE: R E S U L T S BLOOD CULTURE, BACTERIAL FINAL 04/14/23 05:42 No Growth at 1 days No Growth at 2 days No Growth at 3 days NO GROWTH at 4 days - FINAL REPORT [facility] Comment on above: Performed By: #### B LDC ####[id number] [place] [address] BLOOD CULTURE, BACTERIAL PATIENT: LUZ HINOJOSA LOCATION: [address]#: [id number] : [birth year] AGE: SEX: F ORDERED BY: ALIE RODRIGUEZ SOURCE: Blood COLLECTED: 04/09/23 14:05 ANTIBIOTICS AT IZABEL.: RECEIVED : 04/10/23 01:45 SITE: ANTECUBITAL ANTECUBITAL R E S U L T S BLOOD CULTURE, BACTERIAL FINAL 04/14/23 05:42 No Growth at 1 days No Growth at 2 days No Growth at 3 days NO GROWTH at 4 days - FINAL REPORT [facility] Comment on above: Performed By: #### B LDC ####[id number] [place] [address] CBC AND DIFFERENTIALon 04-09 % AUTOMATED IMMATURE GRAN 0.2 % Normal 0.0 - 0.9 [facility] Comment on above: Result Comment: Tammie ture Granulocyte Count (IG) includes promyelocytes, myelocytes and metamyelocytes but does not include bands. Percent differential counts (%) should be interpreted in the context of the absolute cell counts (cells/L). Performed By: #### C BCDF #### [address] [address] Basophils (Bld) [#/Vol] 0.02 10*3/uL Normal 0.00 - 0.[address] [facility] Comment on above: Performed By: #### C BCDF #### [address] [address] Basophils/100 WBC (Bld) 0.2 % Normal 0.0 - 2.0 [facility] Comment on above: Performed By: #### C BCDF #### [address] [address] Eosinophils (Bld) [#/Vol] 0.02 10*3/uL Normal 0.00 - 0.70 [facility] Comment on above: Performed By: #### C BCDF #### [address] [address] Eosinophils/100 WBC (Bld) 0.2 % Normal 0.0 - 6.0 [facility] Comment on above: Performed By: #### C BCDF #### [address] [address] Erythrocyte distribution width (RBC) [Ratio] 11.7 % Normal 11.5 - 14.5 [facility] Comment on above: Performed By: #### C BCDF #### [address] [address] Hematocrit (Bld) [Volume fraction] 42.9 % Normal 36.0 - 46.0 [facility] Comment on above: Performed By: #### C BCDF #### [address] [address] Hemoglobin (Bld) [Mass/Vol] 14.3 g/dL Normal 12.0 - 16.0 [facility] Comment on above: Performed By: #### C BCDF #### [address] [address] Lymphocytes (Bld) [#/Vol] 0.91 10*3/uL Low 1.20 - 4.80 [facility] Comment on above: Performed By: #### C BCDF #### [address] [address] Lymphocytes/100 WBC (Bld) 10.4 % Normal 13.0 - 44.0 [facility] Comment on above: Performed By: #### C BCDF #### [address] [address] MCHC (RBC) [Mass/Vol] 33.3 g/dL Normal 32.0 - 36.0 [facility] Comment on above: Performed By: #### C BCDF #### [address] [address] MCV (RBC) [Entitic vol] 89 fL Normal 80 - [address] [facility] Comment on above: Performed By: #### C BCDF #### [address] [address] Monocytes (Bld) [#/Vol] 1.12 10*3/uL High 0.10 - 1.[address] [facility] Comment on above: Performed By: #### C BCDF #### [address] [address] Monocytes/100 WBC (Bld) 12.8 % Normal 2.0 - 10.[address] [facility] Comment on above: Performed By: #### C BCDF #### [address] [address] Neutrophils (Bld) [#/Vol] 6.64 10*3/uL Normal 1.20 - 7.70 [facility] Comment on above: Result Comment: Perc ent differential counts (%) should be interpreted in the context of the absolute cell counts (cells/L). Performed By: #### C BCDF #### [address] [address] Neutrophils/100 WBC (Bld) 76.2 % Normal 40.0 - 80.0 [facility] Comment on above: Performed By: #### C BCDF #### [address] [address] Platelets (Bld) [#/Vol] 283 10*3/uL Normal 150 - 450 [facility] Comment on above: Performed By: #### C BCDF #### [address] [address] RBC 4.85 x10E12/L Normal 4.00 - 5.20 [facility] Comment on above: Performed By: #### C BCDF #### [address] [address] WBC (Bld) [#/Vol] 8.7 10*3/uL Normal 4.4 - 11.3 [facility] Comment on above: Performed By: #### C BCDF #### [address] [address] [address] ABDOMEN AND PELVIS W IV C [facility] 04-09-2023 CT ABDOMEN AND PELVIS W IV CONTRAST Patient Name: LUZ HINOJOSA STUDY: CT ABDOMEN AND PELVIS W IV CONTRAST; 04/09/2023 12:57 pm INDICATION: Periumbilical and RLQ abdominal pain . COMPARISON: January 09, 2020 renal ultrasound ACCESSION NUMBER(S): [id number] ORDERING CLINICIAN: ALIE RODRIGUEZ TECHNIQUE: CT of [...] VESSELS: The aorta and IVC appear normal. PERITONEUM/RETROPERITONE UM/LYMPH NODES: Trace, physiologic amount of pelvic free [...] fluid. Electronically signed by: KIKI ACOSTA MD [facility] Discharge Planning [id number] 04-09-2023 Discharge Planning Note2 Discharge Planning: Needs Prior to Discharge (ex. 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 Boyfriend Sony Munoz [phone]. Will notify registration of same. Desires to keep her mom as second. AMPAC per nursing is 24, no falls or use of assistive devices. No issues in mobility. 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 Will need work excuse. Plan to d/c home with no other anticipated needs. CT will follow. Mena Chapin, RN- [facility] (HALO) Assessment: Discharge Planning Assessment [id number] Discharge Planning Assessment Completed byMena Samson RN- T[facility] Primary Contact Name and NumberBoyfriend Sony Munoz [phone] James Qureshi [phone] Prior Level of FunctioningIndependent in all ADL's and IADL's, works, drives Lives Withsignificant other(1) Living Arrangementsapartment(1) Stated Reason for Admissionmy stomach hurt, I started puking this morning(1) Arrived Fromemergency department (1) PCPJordyn Ramirez [facility] Recent [facility]/ Injury/ Need Assist with Ambulationdenies Home Care Agency/Support ServicesNone Diabetic/Supplies NeededNone Resource/Environmental Concernsnone(1) [facility] Services Anticipated at Transitionnone(1) PCP Last Date Seen03/06/23 Anticipated Changes Related to Illnessnone Equipment Needed After Dischargenone Anticipated Discharge Facility/Level of Care Needs.Home Social Determinants of Health IdentifiedNone Transportation Home Who/Howmom or boyfriend Medication Adherence/Afford/Obtainy es O2 LPMNone Electronic Signatures: Itzel Coy (RN) (Signed 09-Apr-2023 16:13) Authored: Discharge Planning, Assessment Mena Samson (ROXI) (Signed 10-Apr-2023 08:19) Authored: Discharge Planning, Assessment Last Updated: 10-Apr-2023 08:19 by Mena Samson (ROXI) References: 1. Data Referenced From Patient Profile - Adult v2 09-Apr-2023 15:[address] [facility] HCG,URINEon 04-09-2023 Beta HCG ( test) Ql (U) Negative Normal Negative [facility] Comment on above: Performed By: #### H CGU ####[id number] [place] [address] HEPATIC FUNCTION PANELon Albumin [Mass/Vol] 4.6 g/dL Normal 3.4 - 5.0 [facility] Comment on above: Performed By: #### U ARFX #### [facility] [address] [place] [address] ALP [Catalytic activity/Vol] 48 U/L Normal 33 - 110 [facility] Comment on above: Performed By: #### U ARFX #### [place] [address] ALT [Catalytic activity/Vol] 8 U/L Normal 7 - 45 [facility] Comment on above: Result Comment: Glory ents treated with Sulfasalazine may generate falsely decreased results for ALT. Performed By: #### U ARFX #### [place] [address] AST [Catalytic activity/Vol] 16 U/L Normal 9 - 39 [facility] Comment on above: Performed By: #### U ARFX #### [place] [address] Bilirubin [Mass/Vol] 1.1 mg/dL Normal 0.0 - 1.2 [facility] Comment on above: Performed By: #### U ARFX #### [place] [address] Bilirubin.indirect [Mass/Vol] 0.2 mg/dL Normal 0.0 - 0.3 [facility] Comment on above: Performed By: #### U ARFX #### [place] [address] Protein [Mass/Vol] 7.5 g/dL Normal 6.4 - 8.2 [facility] Comment on above: Performed By: #### U ARFX #### [place] [id number] LACTATEon 04-09-2023 Lactate [Moles/Vol] 0.8 mmol/L Normal 0.4 - 2.0 [facility] Comment on above: Result Comment: Yoko puncture immediately after or during the administration of Metamizole may lead to falsely low results. Testing should be performed immediately prior to Metamizole dosing. Performed By: #### L ACT #### [place] [id number] LIPASEon 04-09-2023 Lipase [Catalytic activity/Vol] 31 U/L Normal 9 - 82 [facility] Comment on above: Result Comment: Yoko puncture immediately after or during the administration of Metamizole may lead to falsely low results. Testing should be performed immediately prior to Metamizole dosing. O-junbug-r-benzoquinone imine (metabolite of Acetaminophen) will generate erroneously low results in samples for patients that have taken toxic doses of acetaminophen. Performed By: #### L IPAS #### [facility] [address] [place] [id number] Order Reconciliationon 04-09 Order Reconciliation Page 1 [...] capsule 1 cap(s) orally once a day [id number] AM Pantoprazole Enteric Coated Tablet (PROTONIX)DOSE = [...] Every 8 Hours and as Needed Normal [facility] Patient Profile - Adult v2on 04-09-2023 Patient Profile - Adult v2 Profile: Initial Info: How to be AddressedBrianna Spoken Language PreferredEnglish (1) Source of Informationpatient Stated Reason for Admissionmy stomach hurt, I started puking this morning Wants Family/Rep Notified of Admissionn/a; family present Notify PCPnotify PCP [facility] Internal Medicine Jordyn CORRIGAN Informed of Patient Visiting [facility]yes [facility] Patient Belongingsremains with patient Patient Belongings Remaining with Patientclothing; cell phone/electronics; purse/wallet; jewelry Medications Brought to Hospitalno General Health: Weight in kg54 kilogram(s)(2) Weight in lrt129 pound(s) Weight Methodactual (measured) Scale Typebed Height [...] Are You Currently Breastfeedingno (3) Behavioral Health Symptoms/Conditionsanxie ty Behavioral Health Managementmanaged Gastrointestinal Symptoms/Conditionsreflu x/heartburn Gastrointestinal Management Strategiesmedication therapy Gastrointestinal Managementmanaged Relationship/Environ: Resource/Environmental Concernsnone Primary Source of Support/Comfortsignifica nt other; parent Lives Withsignificant other Living Arrangementsapartment [...] From History and Physical 09-Apr-2023 15:[address] [facility] Provider Note - ED v3on 03-23 [...] made to minimize errors. Minor errors in sales support assistant may be present. Please call if questions.. [...] a day SIGNIFICANT EVENTS: Past Medical History Description:Albin teeth extraction CRITICAL CARE RESULTS: Recent Lab Results: I have reviewed these laboratory results: Basic Metabolic Panel Trending View [id number] 13:30:00 09-Apr-2023 11:05:00 Glucose, Serum74 91 NA141 140 K3.9 3.7 CL112 H 107 Bicarbonate, Serum19 L 23 Anion Gap, Serum14 14 BUN19 20 CREAT2.16 H 2.20 H GFR [id number] A 32 A Calcium, Serum8.1 L 9.5 [...] Reference Range: STRAW,YELLOW Appearance, Urine HAZY Specific Orrum, Urine 1.006 pH, Urine 6.0 Protein, Urine NEGATIVE Glucose, (more content not included)... Normal [facility] Risk Screen - Adult Emergenc yon 04-09-2023 Risk Screen - Adult Emergency Preferred Language: Preferred Language: Preferred Language for Discussing Health Care (patient/designee)Perfecto guerrero Patient Preferred Pharmacy: Patient Preferred Pharmacy Statement: [...] instruction; written material Cultural Considerationsnone Developmental Considerationsnone Sabianist Considerationsnone Learning Assessment (Other Learner): Learning Assessment [...] an injured patient at a Trauma Center ([facility]/[place] /[place]/D Lo): no Electronic Signatures: Imelda Ramirez (RN) (Signed 09-Apr-2023 10:53) Authored: Preferred Language, Patient Preferred Pharmacy, Advanced Directives, Family Violence Adult, Learning Assessment (Patient), Learning Assessment (Other Learner), Pressure Injury/TB/Substance, Pressure Injury, CAGE Last Updated: 09-Apr-2023 10:53 by Imelda Ramirez (RN) [facility] Triage - EDon 04-09-2023 Triage - ED [...] obeys commands Best Verbal Response: (V5) oriented Bullhead Score: 15 Cough lasting greater than 3 [...] 09-Apr-2023 10:52 by Imelda Ramirez (ROXI) Normal [facility] UA MICROSCOPICon 04-09-2023 BACTERIA 2+ /HPF Abnormal [facility] Comment on above: Performed By: #### U AMIC ####[place] [id number] RBC 2 /HPF Normal 0-5 [facility] Comment on above: Performed By: #### U AMIC ####[place] [id number] SQUAMOUS EPITH. CELLS 19 /HPF Normal [facility] Comment on above: Performed By: #### U AMIC ####[place] [address] WBC 9 /HPF Abnormal 0-5 [facility] Comment on above: Performed By: #### U AMIC ####[place] [address] URINALYSIS WITH CULTURE IF I NDICATEDon 04-09-2023 Appearance (U) HAZY Normal CLEAR [facility] Comment on above: Performed By: #### U ARFX #### [place] [address] Bilirubin Ql (U) Negative Normal NEGATIVE [facility] Comment on above: Performed By: #### U ARFX #### [place] [address] Color (U) Rox Normal STRAW,YELLOW [facility] Comment on above: Performed By: #### U ARFX #### [place] [address] Glucose Ql (U) Negative Normal NEGATIVE [facility] Comment on above: Performed By: #### U ARFX #### [place] [address] Hemoglobin Ql (U) MODERATE (2+) Abnormal NEGATIVE [facility] Comment on above: Performed By: #### U ARFX #### [place] [address] Ketones Ql (U) Negative Normal NEGATIVE [facility] Comment on above: Performed By: #### U ARFX #### [address] [address] Leukocyte esterase Test strip Ql (U) Negative Normal NEGATIVE [facility] Comment on above: Performed By: #### U ARFX #### [address] [address] Nitrite Ql (U) Positive Abnormal NEGATIVE [facility] Comment on above: Performed By: #### U ARFX #### [place] [address] pH (U) 6.0 [pH] Normal 5.0 - 8.0 [facility] Comment on above: Performed By: #### U ARFX #### [address] [address] Protein Ql (U) Negative Normal NEGATIVE [facility] Comment on above: Performed By: #### U ARFX #### [address] [address] Specific gravity (U) [Rel density] 1.006 Normal 1.005 - 1.035 [facility] Comment on above: Performed By: #### U ARFX #### [address] [address] Urobilinogen (U) [Mass/Vol] mg/dL Normal 0.0 - 1.9 [facility] Comment on above: Performed By: #### U ARFX #### [address] [address] URINE CULTURE,BACTERIALon URINE CULTURE,BACTERIAL PATIENT: LUZ HINOJOSA LOCATION: [address]#: [id number] : [birth year] AGE: SEX: F ORDERED BY: ALIE RODRIGUEZ SOURCE: URINE COLLECTED: 04/09/23 11:05 ANTIBIOTICS AT [facility].: RECEIVED : 04/09/23 19:53 SITE: R E S U L T S URINE CULTURE,BACTERIAL FINAL 04/10/23 13:17 NO SIGNIFICANT GROWTH. Normal [facility] Comment on above: Performed By: #### U RINC ####[id number] [place] [address] Provider Note - ED v3on 10-21 Provider [...] and vomiting SIGNIFICANT EVENTS: Past Medical History Description:Albin teeth extraction MDM MDM/ED COURSE: PMH: Reviewed [...] ill patient: no Electronic Signatures: Alie Flor (CNA INSTRUCTOR-[facility]) (Signed 06-Nov-2022 19:03) Authored: HPI, PMH, MDM/ED Course, Clinical Impression, Attestation, Chart Review, Scores Last Updated: 06-Nov-2022 19:03 by Alie Flor (CNA INSTRUCTOR-[facility]) References: 1. Data Referenced From Triage - ED 06-Nov-2022 18:[address] [facility] Risk Screen - Adult Emergenc yon 11-06-2022 Risk Screen - Adult Emergency Preferred Language: Preferred Language: Preferred Language for Discussing Health Care (patient/designee)Perfecto guerrero Patient Preferred Pharmacy: Patient Preferred Pharmacy Statement: [...] Learning Preferencesverbal instruction Cultural Considerationsnone Developmental Considerationsnone Sabianist Considerationsnone Learning Assessment (Other Learner): Learning Assessment [...] an injured patient at a Trauma Center ([facility]/[place] /[place]): no Electronic Signatures: Vivian Allred (RN) (Signed 06-Nov-2022 18:52) Authored: Preferred Language, Patient Preferred Pharmacy, Advanced Directives, Family Violence Adult, Learning Assessment (Patient), Learning Assessment (Other Learner), Pressure Injury/TB/Substance, Pressure Injury, CAGE Last Updated: 06-Nov-2022 18:52 by Vivian Allred (ROXI) Normal [facility] Triage - EDon 11-06-2022 Triage - ED Quick Triage: Are You no Have You Given In The Last 6 Weeksno Are You Currently Breastfeedingno Chart Review: PRIMARY ASSESSMENT ABCD Normal Findings: airway open and patent, circulation normal and alert and oriented ARRIVAL INFORMATION Means of Arrival: Ambulatory Mode of Arrival: private vehicle Arrival From: home Accompanied By: self Language: Spoken Language Preferred: [place] Islander Reading Language Preferred: [place] Present on Arrival: Device Present on [...] obeys commands Best Verbal Response: (V5) oriented Bullhead Score: 15 Allergies: yes Last menstrual period: unknown RELATIONSHIP BANKER History: control Patient has homicidal thoughts: no [...] 06-Nov-2022 18:51 by Vivian Allred (RN) Normal [facility] BASIC METABOLIC PANELon 02-0 Anion gap [Moles/Vol] 11 mmol/L Normal 10 - 20 [facility] Comment on above: Performed By: #### B MP #### [facility] [address] [place] [address] Calcium [Mass/Vol] 9.0 mg/dL Normal 8.6 - 10.3 [facility] Comment on above: Performed By: #### B MP #### [address] [address] Chloride [Moles/Vol] 105 mmol/L Normal 98 - 107 [facility] Comment on above: Performed By: #### B MP #### [address] [address] Creatinine [Mass/Vol] 0.73 mg/dL Normal 0.50 - 1.05 [facility] Comment on above: Performed By: #### B MP #### [address] [address] eGFR FEMALE >90 Normal >90 [facility] Comment on above: Result Comment: CALC ULATIONS OF ESTIMATED GFR ARE PERFORMED USING THE 2020 CKD-EPI STUDY REFIT EQUATION WITHOUT THE RACE VARIABLE FOR THE IDMS-TRACEABLE CREATININE METHODS. https://jasn.asnjournals.org/content/early//ASN.2020 770318 Performed By: #### B MP #### [address] [address] Glucose [Mass/Vol] 78 mg/dL Normal 74 - 99 [facility] Comment on above: Performed By: #### B MP #### [address] [address] HCO3 (Bld) [Moles/Vol] 27 mmol/L Normal 21 - 32 [facility] Comment on above: Performed By: #### B MP #### [address] [address] Potassium [Moles/Vol] 3.9 mmol/L Normal 3.5 - 5.3 [facility] Comment on above: Performed By: #### B MP #### [address] [address] Sodium [Moles/Vol] 139 mmol/L Normal 136 - 145 [facility] Comment on above: Performed By: #### B MP #### [address] [address] Urea nitrogen [Mass/Vol] 11 mg/dL Normal 6 - 23 [facility] Comment on above: Performed By: #### B MP #### [address] [address] CBC AND DIFFERENTIALon 08-24 % AUTOMATED IMMATURE GRAN 0.0 % Normal 0.0 - 0.9 [facility] Comment on above: Result Comment: Tammie ture Granulocyte Count (IG) includes promyelocytes, myelocytes and metamyelocytes but does not include bands. Percent differential counts (%) should be interpreted in the context of the absolute cell counts (cells/L). Performed By: #### U ARFX #### [place] [address] Basophils (Bld) [#/Vol] 0.04 10*3/uL Normal 0.00 - 0.[address] [facility] Comment on above: Performed By: #### U ARFX #### [place] [address]005 Basophils/100 WBC (Bld) 0.5 % Normal 0.0 - 2.[address] [facility] Comment on above: Performed By: #### U ARFX #### [place] [address] Eosinophils (Bld) [#/Vol] 0.08 10*3/uL Normal 0.00 - 0.70 [facility] Comment on above: Performed By: #### U ARFX #### [place] [address] Eosinophils/100 WBC (Bld) 1.1 % Normal 0.0 - 6.0 [facility] Comment on above: Performed By: #### U ARFX #### [place] [address] Erythrocyte distribution width (RBC) [Ratio] 11.3 % Low 11.5 - 14.5 [facility] Comment on above: Performed By: #### U ARFX #### [place] [address] Hematocrit (Bld) [Volume fraction] 41.9 % Normal 36.0 - 46.0 [facility] Comment on above: Performed By: #### U ARFX #### [place] [address]005 Hemoglobin (Bld) [Mass/Vol] 14.1 g/dL Normal 12.0 - 16.0 [facility] Comment on above: Performed By: #### U ARFX #### [address] [address] Lymphocytes (Bld) [#/Vol] 2.21 10*3/uL Normal 1.20 - 4.80 [facility] Comment on above: Performed By: #### U ARFX #### [address] [address] Lymphocytes/100 WBC (Bld) 29.6 % Normal 13.0 - 44.0 [facility] Comment on above: Performed By: #### U ARFX #### [address] [address] MCHC (RBC) [Mass/Vol] 33.7 g/dL Normal 32.0 - 36.0 [facility] Comment on above: Performed By: #### U ARFX #### [address] [address] MCV (RBC) [Entitic vol] 88 fL Normal 80 - [address] [facility] Comment on above: Performed By: #### U ARFX #### [address] [address] Monocytes (Bld) [#/Vol] 0.61 10*3/uL Normal 0.10 - 1.[address] [facility] Comment on above: Performed By: #### U ARFX #### [address] [address] Monocytes/100 WBC (Bld) 8.2 % Normal 2.0 - 10.[address] [facility] Comment on above: Performed By: #### U ARFX #### [address] [address] Neutrophils (Bld) [#/Vol] 4.53 10*3/uL Normal 1.20 - 7.70 [facility] Comment on above: Result Comment: Perc ent differential counts (%) should be interpreted in the context of the absolute cell counts (cells/L). Performed By: #### U ARFX #### [address] [address] Neutrophils/100 WBC (Bld) 60.6 % Normal 40.0 - 80.0 [facility] Comment on above: Performed By: #### U ARFX #### [address] [address] Platelets (Bld) [#/Vol] 286 10*3/uL Normal 150 - 450 [facility] Comment on above: Performed By: #### U ARFX #### [address] [address] RBC 4.79 x10E12/L Normal 4.00 - 5.20 [facility] Comment on above: Performed By: #### U ARFX #### [address] [address] WBC (Bld) [#/Vol] 7.5 10*3/uL Normal 4.4 - 11.3 [facility] Comment on above: Performed By: #### U ARFX #### [address] [address] HCG,BETA-QUANTITATIVEon HCG,BETA-QUANTITATIVE <[address] [facility] Comment on above: Result Comment: . Total HCG measurement is performed using the [employer] Access Immunoassay which detects intact HCG and free beta HCG subunit. . This test is not indicated for use as a tumor marker. HCG testing is performed using a different test methodology at [facility] than other [facility]. Direct result comparison should only be made within the same method. REF VALUES NON FEMALE <5 MALES <5 Performed By: #### H CGQU #### [address] [address] HCG,URINEon 08-24-2022 Beta HCG ( test) Ql (U) Negative Normal Negative [facility] Comment on above: Performed By: #### H CGU #### [address] [address] Provider Note - ED v3on Provider Note [...] (V49.89) (Z78.9) Surgical History Problems History of Albin tooth extraction x 4 extracted 4 years [...] a day SIGNIFICANT EVENTS: Past Medical History Description:Albin teeth extraction REVIEW OF SYSTEMS CONSTITUTIONAL: Negative [...] affect. N (more content not included)... Normal [facility] Risk Screen - Adult Emergenc yon 08-24-2022 Risk Screen - Adult Emergency Preferred Language: Preferred Language: Preferred Language for Discussing Health Care (patient/designee)Perfecto guerrero Patient Preferred Pharmacy: Patient Preferred Pharmacy Statement: [...] instruction; written material Cultural Considerationsnone Developmental Considerationsnone Sabianist Considerationsnone Learning Assessment (Other Learner): Learning Assessment [...] an injured patient at a Trauma Center ([facility]/[place] /[place]/D [place]): no Electronic Signatures: Ruthann Aguilera (RN) (Signed 24-Aug-2022 16:09) Authored: Preferred Language, Patient Preferred Pharmacy, Advanced Directives, Family Violence Adult, Learning Assessment (Patient), Learning Assessment (Other Learner), Pressure Injury/TB/Substance, Pressure Injury, CAGE Last Updated: 24-Aug-2022 16:09 by Ruthann Aguilera (ROXI) [facility] Triage - EDon 08-24-2022 Triage - ED [...] Verbal Response: (V5) oriented Justus Score: 15 Bullhead Assessment Qualifiers: patient not sedated/intubated Cough lasting [...] Past Medical History: Past Medical History Reviewedyes Albin teeth extraction: Past Medical History, Active Electronic Signatures: Johnny Potter (EMT-P) (Signed 24-Aug-2022 14:18) Entered: Risk Screens, Pain, Travel History, Chart Review, Scores Authored: Quick Triage, Risk Screens, Pain, Travel History, Chart Review, Scores Ruthann Aguilera (RN) (Signed 24-Aug-2022 16:07) Authored: Quick Triage, Pain, Chart Review, Past Medical History Last Updated: 24-Aug-2022 16:07 by Ruthann Aguilera (RN) Normal [facility] UA MICROSCOPICon 08-24-2022 BACTERIA 1+ /HPF Abnormal [facility] Comment on above: Performed By: #### U AMIC ####[place] [address] RBC 83 /HPF Abnormal 0-5 [facility] Comment on above: Performed By: #### U AMIC ####[place] [address] SQUAMOUS EPITH. CELLS 11 /HPF Normal [facility] Comment on above: Performed By: #### U AMIC ####[address] [address] WBC 7 /HPF Abnormal 0-5 [facility] Comment on above: Performed By: #### U AMIC ####[address] [address] URINALYSISon 08-24-2022 Appearance (U) HAZY Normal CLEAR [facility] Comment on above: Performed By: #### U ARFX #### [place] [address] Bilirubin Ql (U) Negative Normal NEGATIVE [facility] Comment on above: Performed By: #### U ARFX #### [place] [address] Color (U) Yellow Normal STRAW,YELLOW [facility] Comment on above: Performed By: #### U ARFX #### [place] [address] Glucose Ql (U) Negative Normal NEGATIVE [facility] Comment on above: Performed By: #### U ARFX #### [address] [address] Hemoglobin Ql (U) LARGE(3+) Abnormal NEGATIVE [facility] Comment on above: Performed By: #### U ARFX #### [address] [address] Ketones Ql (U) Negative Normal NEGATIVE [facility] Comment on above: Performed By: #### U ARFX #### [place] [address] Leukocyte esterase Test strip Ql (U) Negative Normal NEGATIVE [facility] Comment on above: Performed By: #### U ARFX #### [place] [address] Nitrite Ql (U) Negative Normal NEGATIVE [facility] Comment on above: Performed By: #### U ARFX #### [place] [address]005 pH (U) 7.0 [pH] Normal 5.0 - 8.0 [facility] Comment on above: Performed By: #### U ARFX #### [address] [address] Protein Ql (U) 30(1+) Abnormal NEGATIVE [facility] Comment on above: Performed By: #### U ARFX #### [address] [address] Specific gravity (U) [Rel density] 1.018 Normal 1.005 - 1.035 [facility] Comment on above: Performed By: #### U ARFX #### [address] [address] Urobilinogen (U) [Mass/Vol] mg/dL Normal 0.0 - 1.9 [facility] Comment on above: Performed By: #### U ARFX #### [address] [address] Office Visit (Internal Medic ine)on 08-03-2022 Follow-up [...] attacks; CATE = N; Verified Transmission to [facility]; Last Updated By: Cortez Klein; 08/03/2022 11:40:41 [...] (V49.89) (Z78.9) Surgical History Problems History of Albin tooth extraction x 4 extracted 4 years [...] Medication clonidine Allergy; Hives;; Updated By: Alma Mkceon; 03/03/2022 2:28:14 P (more content not included)... Normal [employer] Tobacco Screening.on 023 Tobacco use status CPHS a) Yes M P-[facility] Work Phone: Tobacco Screening. Yes [facility] Work Phone: IO HCG, Urine Test on 06-14-2022 HCG ( test) Ql (U) Negative [facility] Work Phone: Office Visit (Internal Medic ine)on 06-14-2022 Follow-up visit Diagnoses/Problems Assessed Abnormal menses (626.9) (N92.6) Orders Abnormal menses Gynecology Referral Evaluation and Treatment Evaluate AND Treat Status: Complete Done: 14Jun2022 Ordered;For: Abnormal menses; Ordered By: Jordyn Thakur Performed: Due: [id number]; Last Updated By: Melvi Meyers; 06/14/2022 4:00:47 PM 08-10-2022 at 1 with jocelyne bae IO HCG, Urine Test; Status:Complete; Done: 14Jun2022 04:05PM Performed:In Office; Due:[id number];Ordered; For:Abnormal menses; Ordered By:Jordyn Thakur; Patient Discussion/Summary [...] TO FACE ENCOUNTER OBTAINING HISTORY FROM THE PATIENT/FAMILY/CAREGIVER S; PERFORMING EVALUATION AND EXAMINATION; ORDERING TESTS OR PROCEDURES; REFERRING AND COMMUNICATING WITH OTHER HEALTHCARE PROVIDERS; COUNSELING AND EDUCATION OF THE PATIENT/FAMILY/CAREGIVER S; INDEPENDENTLY INTERPRETING RESULTS (TESTS, LABS, PROCEDURES, IMAGING) AND COMMUNICATING AND EXPLAINING RESULTS TO THE PATIENT/FAMILY/CAREGIVER S 3. COORDINATION OF CARE; PREPARING AND PRINTING DISCHARGE INSTRUCTIONS AND ANY EDUCATIONAL MATERIAL FOR THE PATIENT/FAMILY/CAREGIVER S. DOCUMENTING CLINICAL INFORMATION IN THE ELECTRONIC MEDICAL [...] (V49.89) (Z78.9) Surgical History Problems History of Albin tooth extraction x 4 extracted 4 years ago Family History Mother Family history of Bipolar 1 disorder Father No pertinent family history Maternal Grandmother Family history of Family history of myocardial infarction (V17.3) (Z82.49) in her 40's Family history of type 2 diabetes mellitus (V18.0) (Z83.3) Social History Problems Cigarette nicotine dependence (305.1) (F17.210) (more content not included)... Normal [employer] Tobacco Screening.on 022 Fall risk assessment a) No falls within the last year [facility] Work Phone: Tobacco use status CPHS a) Yes [facility] Work Phone: Tobacco Screening. Yes [facility] Work Phone: XR FINGER(S) [...] distal phalanx. There is minimal callous formation. [employer] Workstation ID: [id number] Dictated by: MAYELIN LANDRY on SunJun 07, 2022 7:25:17 PM EST Transcribed by: MYRNA GOODMAN on SunJun 07, 2022 7:40:20 PM EST Finalized by: MAYELIN LANDRY on SunJun 08, 2022 9:26:59 AM EST Normal [facility] Comment on above: Order Comment: Attn [...] attacks; CATE = N; Verified Transmission to [facility] [address]; Last Updated By: [employer]; 06/06/2022 2:28:43 PM Renew: PARoxetine HCl - 30 MG Oral Tablet; TAKE 1 TABLET DAILY Rx By: Jordyn Ramirez; Dispense: 90 Days ; #:90 Tablet; Refill: 1;For: Generalized anxiety disorder with panic attacks; CATE = N; Verified Transmission to [facility] 1448; Last Updated By: [employer]; 06/06/2022 2:28:49 PM Patient Discussion/Summary AUGUST WITH [...] TO FACE ENCOUNTER OBTAINING HISTORY FROM THE PATIENT/FAMILY/CAREGIVER S; PERFORMING EVALUATION AND EXAMINATION; ORDERING TESTS OR PROCEDURES; REFERRING AND COMMUNICATING WITH OTHER HEALTHCARE PROVIDERS; COUNSELING AND EDUCATION OF THE PATIENT/FAMILY/CAREGIVER S; INDEPENDENTLY INTERPRETING RESULTS (TESTS, LABS, PROCEDURES, IMAGING) AND COMMUNICATING AND EXPLAINING RESULTS TO THE PATIENT/FAMILY/CAREGIVER S 3. COORDINATION OF CARE; PREPARING AND PRINTING DISCHARGE INSTRUCTIONS AND ANY EDUCATIONAL MATERIAL FOR THE PATIENT/FAMILY/CAREGIVER S. DOCUMENTING CLINICAL INFORMATION IN THE ELECTRONIC MEDICAL [...] (V49.89) (Z78.9) Surgical History Problems History of Albin tooth extraction x 4 extracted 4 years [...] a) No falls within the last year [facility] Work Phone: Tobacco use status CPHS a) Yes [facility] Work Phone: Tobacco Screening. Yes [facility] Work Phone: XR HAND [...] May 14, 2022 8:49:48 AM EDT Normal [facility] Comment on above: Order Comment: Injur y/Trauma or Illness?:Injury/Trauma How long have you had these symptoms (acute/chronic)?:Acute Reason for exam?:f.u Closed nondisplaced fracture of distal phalanx of left middle finger History of cancer?:n Surgeries, chemotherapy, or radiation?:n Type of Exam?:Subsequent/Follow-up Mechanism of injury?:wrestling on 04/23 HCG, Beta Quantitativeon HCG.beta subunit Qn m[IU]/mL [facility] Work Phone: Comment on above: Low-level positive H CG results can be seen in early , in lazara- or post-menopausal females due to normal pituitary HCG production, or with analytic interference. Repeat testing in 48-72 hours can aid in assessing for as results should double in this time period. FSH measurement is recommended in lazara- or post-menopausal females as concurrent elevation of FSH can support pituitary production as the source of the HCG elevation.. Total HCG measurement is performed using the Tram Arline Access Immunoassay which detects intact HCG and free beta HCG subunit. This test is not indicated for use as a tumor marker. HCG testing is performed using a different test methodology at [facility] than other [facility]. Direct result comparison should only be made within the same method. REF VALUESNON FEMALE <5MALES <5 HCG,BETA-QUANTITATIVEon 04-22 HCG,BETA-QUANTITATIVE <2 Normal [facility] Comment on above: Result Comment: Low- level positive HCG results can be seen in early , in lazara- or post-menopausal females due to normal pituitary HCG production, or with analytic interference. Repeat testing in 48-72 hours can aid in assessing for as results should double in this time period. FSH measurement is recommended in lazara- or post-menopausal females as concurrent elevation of FSH can support pituitary production as the source of the HCG elevation. . Total HCG measurement is performed using the Tram [place] Access Immunoassay which detects intact HCG and free beta HCG subunit. This test is not indicated for use as a tumor marker. HCG testing is performed using a different test methodology at [facility] than other [facility]. Direct result comparison should only be made within the same method. REF VALUES NON FEMALE <5 MALES <5 Performed By: #### H CGQU #### [facility] [address] [place] [address] Office Visit (Internal Medic ine)on 05-02-2022 Follow-up [...] (V49.89) (Z78.9) Surgical History Problems History of [place] tooth extraction x 4 extracted 4 years [...] Vitals Vital Signs Recorded: 02May2022 08:59AM Heart Wzgx800 Fvbyreaw274 Zyuusohwz15 Height5 ft 5 in Gbqyis837 lb 15.82 oz BMI Jhjguzqzvm81.81 kg/m2 BSA Calculated1.52 Tobacco Usea) Yes Patient [...] Apical pulse (more content not included)... [facility] 022 Fall risk assessment a) No falls within the last year [facility] Work Phone: Tobacco use status [facility] a) Yes [facility] Work Phone: Tobacco Screening. Yes [facility] Work Phone: XR FINGER(S) [...] SunApr 24, 2022 12:19:58 PM EDT [facility] Comment on above: Order Comment: Injur [...] attacks; CATE = N; Verified Transmission to [facility]; Last Updated By: Cortez Klein; 03/31/2022 2:39:28 PM Health Maintenance Complete Blood Count + Differential; Status:Active; Requested for:31Mar2023; Perform:Lab Services - Lab To Draw (Blood Test); Due:14Ivx0636;Ordered; For:Health Maintenance; Ordered By:Jordyn Ramirez; Comprehensive Metabolic Panel; Status:Active; Requested for:31Mar2023; Perform:Lab Services - Lab To Draw (Blood Test); Due:[id number];Ordered; For:Health Maintenance; Ordered By:Jordyn Ramirez; Hemoglobin A1C; Status:Active; Requested for:31Mar2023; Perform:Lab Services - Lab To Draw (Blood Test); Due:13Ote7916;Ordered; For:Health Maintenance; Ordered By:Jordyn Ramirez; Lipid Panel; Status:Active; Requested for:12Bxh9266; Perform:Lab Services - Lab To Draw (Blood Test); Due:46Xeg7675;Ordered; For:Health Maintenance; Ordered By:Jordyn Ramirez; TSH WITH REFLEX TO FREE T4 IF ABNORMAL; Status:Active; Requested for:73Mbr0143; Perform:Lab Services - Lab To Draw (Blood Test); Due:41Lxy2951;Ordered; For:Health Maintenance; Ordered By:Jordyn Ramirez; Patient Discussion/Summary [...] TO FACE ENCOUNTER OBTAINING HISTORY FROM THE PATIENT/FAMILY/CAREGIVER S; PERFORMING EVALUATION AND EXAMINATION; ORDERING TESTS OR PROCEDURES; REFERRING AND COMMUNICATING WITH OTHER HEALTHCARE PROVIDERS; COUNSELING AND EDUCATION OF THE PATIENT/FAMILY/CAREGIVER S; INDEPENDENTLY INTERPRETING RESULTS (TESTS, LABS, PROCEDURES, IMAGING) AND COMMUNICATING AND EXPLAINING RESULTS TO THE PATIENT/FAMILY/CAREGIVER S 3. COORDINATION OF CARE; PREPARING AND PRINTING DISCHARGE INSTRUCTIONS AND ANY EDUCATIONAL MATERIAL FOR THE PATIENT/FAMILY/CAREGIVER S. DOCUMENTING CLINICAL INFORMATION IN THE ELECTRONIC MEDICAL [...] History of Present IllnessPresents today for [facility] LAB F/U AND MED CHECK. NO [...] loss, n (more content not included)... [facility] + Diffe aida 03-10-2022 Basophils/100 WBC (Bld) 1.0 % 0.0 - 2.0 M [facility] Work Phone: Erythrocyte distribution width (RBC) [Ratio] 12.2 % See Below [facility] Work Phone: Comment on above: Reference Range: 11. 5 - 14.5 Hematocrit (Bld) [Volume fraction] 44.2 % See Below [facility] Work Phone: Comment on above: Reference Range: 36. 0 - 46.0 Hemoglobin (Bld) [Mass/Vol] 15.1 g/dL See Below [facility] Work Phone: Comment on above: Reference Range: 12. 0 - 16.0 Lymphocytes/100 WBC (Bld) 26.6 % See Below [facility] Work Phone: Comment on above: Reference Range: 13. 0 - 44.0 MCHC (RBC) [Mass/Vol] 34.3 g/dL See Below [facility] Work Phone: Comment on above: Reference Range: 32. 0 - 36.0 MCV (RBC) [Entitic vol] 88 fL 80 - 100 M [facility] Work Phone: Monocytes/100 WBC (Bld) 7.4 % 2.0 - 10.0 M [facility] Work Phone: Neutrophils/100 WBC (Bld) 64.5 % See Below [facility] Work Phone: Comment on above: Reference Range: 40. 0 - 80.0 Platelets (Bld) [#/Vol] 275 10*3/uL 150 - 450 [facility] Work Phone: RBC (Bld) [#/Vol] 5.05 {x10E12/L} See Below [facility] Work Phone: Comment on above: Reference Range: 4.0 0 - 5.20 WBC (Bld) [#/Vol] 6.7 10*3/uL 4.4 - 11.3 [facility] Work Phone: Complete Blood Count + Differential 0.10 {x10E9/L} See Below [facility] Work Phone: Comment on above: Reference Range: 0.0 0 - 0.10 Complete Blood Count + Differential 0.00 {x10E9/L} See Below [facility] Work Phone: Comment on above: Reference Range: 0.0 0 - 0.70 Complete Blood Count + Differential 0.50 {x10E9/L} See Below [facility] Work Phone: Comment on above: Reference Range: 0.1 0 - 1.00 Complete Blood Count + Differential 1.80 {x10E9/L} See Below [facility] Internal [facility] Work Phone: Comment on above: Reference Range: 1.2 0 - 4.80 Complete Blood Count + Differential 4.30 {x10E9/L} See Below [facility] Work Phone: Comment on above: Reference Range: 1.2 0 - 7.70 Percent differential counts (%) should be interpreted in the context of the absolute cell counts (cells/L). Complete Blood Count + Differential 0.5 % 0.0 - 6.0 [facility] Work Phone: Ferritin, Serumon 03-10-2022 Ferritin [Mass/Vol] 77 ug/L 8 - 150 [facility] Internal [facility] Work Phone: Folate, Serumon 03-10-2022 Folate [Mass/Vol] 19.2 ng/mL >5.0 [facility] Work Phone: Comment on above: Low <3.4Borderline 3 .4-5.0Normal >5.0. Patients receiving more than 5 mg/day of biotin may have interference in test results. A sample should be taken no sooner than eight hours after previous dose. Contact the testing laboratory for additional information. Hemoglobin A1Con 03-10-2022 Glucose [Mass/Vol] 103 mg/dL [facility] Work Phone: HbA1c (Bld) [Mass fraction] 5.2 % [facility] Internal [facility] Work Phone: Comment on above: Diagnosis of Diabete s-Adults Non-Diabetic: < or = 5.6% Increased risk for developing diabetes: 5.7-6.4% Diagnostic of diabetes: > or = 6.5%. Monitoring of Diabetes Age (y) Therapeutic Goal (%) Adults: >18 <7.0 Pediatrics: 13-18 <7.5 7-12 <8.0 0- 6 7.5-8.5 [employer]. Diabetes Care 33(S1), Jul 2009. Laboratory - Chemistry and C hemistry - challengeon 03-10-2022 Albumin BCP dye [Mass/Vol] 4.9 g/dL 3.4 - 5.0 [facility] Work Phone: ALP [Catalytic activity/Vol] 42 U/L 33 - 110 [facility] Work Phone: ALT With P-5'-P [Catalytic activity/Vol] 9 U/L 7 - 45 [facility] Work Phone: Comment on above: Patients treated wit h Sulfasalazine may generate falsely decreased results for ALT. Anion gap [Moles/Vol] 13 mmol/L 10 - 20 [facility] Work Phone: AST With P-5'-P [Catalytic activity/Vol] 16 U/L 9 - 39 [facility] Work Phone: Bilirubin [Mass/Vol] 1.3 mg/dL above high threshold 0.0 - 1.2 [facility] Work Phone: Calcium [Mass/Vol] 9.5 mg/dL 8.6 - 10.3 [facility] Work Phone: Chloride [Moles/Vol] 106 mmol/L 98 - 107 [facility] Internal [facility] Work Phone: CO2 [Moles/Vol] 25 mmol/L 21 - 32 [facility] Work Phone: Creatinine [Mass/Vol] 0.85 mg/dL See Below [facility] Work Phone: Comment on above: Reference Range: 0.5 0 - 1.05 Glucose [Mass/Vol] 87 mg/dL 74 - 99 [facility] Work Phone: Iron [Mass/Vol] 141 ug/dL 35 - 150 [facility] Work Phone: Iron binding capacity [Mass/Vol] 349 ug/dL 240 - 445 [facility] Work Phone: Potassium [Moles/Vol] 3.9 mmol/L 3.5 - 5.3 [facility] Work Phone: Protein [Mass/Vol] 7.5 g/dL 6.4 - 8.2 [facility] Work Phone: Sodium [Moles/Vol] 140 mmol/L 136 - 145 [facility] Work Phone: TSH Qn 0.93 m[IU]/L See Below [facility] Work Phone: Comment on above: Reference Range: 0.4 4 - 3.98 TSH testing is performed using different testing methodology at [facility] than at other [facility]. Direct result comparisons should only be made within the same method. Urea nitrogen [Mass/Vol] 15 mg/dL 6 - 23 [facility] Work Phone: Lipid Panelon 03-10-2022 Cholesterol [Mass/Vol] 143 mg/dL 0 - 199 [facility] Work Phone: Comment on above: . AGE [...] dosing. Cholesterol in HDL [Mass/Vol] 58.0 mg/dL [facility] Work Phone: Comment on above: . AGE VERY LOW LOW N ORMAL HIGH 0-19 Y < 35 < 40 40-45 ---- 20-24 Y ---- < 40 >45 ---- >24 Y ---- < 40 40-60 >60. Cholesterol in LDL [Mass/Vol] 74 mg/dL 0 - 119 [facility] Work Phone: Comment on above: . NEAR BORD AGE DEE DEE RABLE OPTIMAL HIGH HIGH VERY HIGH 0-19 Y 0 - 109 --- 110-129 >/= 130 ---- 20-24 Y 0 - 119 --- 120-159 >/= 160 ---- >24 Y 0 - 99 100-129 130-159 160-189 >/=190. Cholesterol non HDL [Mass/Vol] 85 mg/dL 0 - 149 [facility] Internal [facility] Work Phone: Comment on above: AGE DESIRABLE BORDER LINE HIGH HIGH VERY HIGH 0-19 Y 0 - 119 120 - 144 >/= 145 >/= 160 20-24 Y 0 - 149 150 - 189 >/= 190 ---- >24 Y 30 MG/DL ABOVE LDL CHOLESTEROL GOAL. Cholesterol.total/Doris sterol in HDL [Mass ratio] 2.5 {ratio} [facility] Work Phone: Comment on above: REF VALUESDESIRABLE < 3.4HIGH RISK > 5.0 Triglyceride [Mass/Vol] 57 mg/dL 0 - 149 [facility] Work Phone: Comment on above: . [...] Lipid Panel 11 mg/dL 0 - 40 [facility] Internal [facility] Work Phone: No Panel Informationon 03-10 >90 >90 [facility] Work Phone: Comment on above: CALCULATIONS OF JOSE MATED GFR ARE PERFORMED USING THE 2020 CKD-EPI STUDY REFIT EQUATION WITHOUT THE RACE VARIABLE FOR THE IDMS-TRACEABLE CREATININE METHODS.https://jasn.asnjournals.org/content/early// ASN.8318697058 40 % 25 - 45 [facility] Work Phone: Vitamin B12, Serumon 022 Cobalamin (Vitamin B12) [Mass/Vol] 215 pg/mL 211 - 911 [facility] Work Phone: Office Visit [...] Services - Lab To Draw (Blood Test); Due:[id number];Ordered; For:Establishing care with new doctor, encounter for, Generalized anxiety disorder with panic attacks, GERD (gastroesophageal reflux disease); Ordered By:Jordyn Ramirez; Comprehensive Metabolic Panel; Status:Active; Requested for:03Mar2022; Perform:Lab Services - Lab To Draw (Blood Test); Due:[id number];Ordered; For:Establishing care with new doctor, encounter for, Generalized anxiety disorder with panic attacks, GERD (gastroesophageal reflux disease); Ordered By:Jordyn Ramirez; Ferritin, Serum; Status:Active; Requested for:03Mar2022; Perform:Lab Services - Lab To Draw (Blood Test); Due:68Ehg3326;Ordered; For:Establishing care with new doctor, encounter for, Generalized anxiety disorder with panic attacks, GERD (gastroesophageal reflux disease); Ordered By:Jordyn Ramirez; Folate, Serum; Status:Active; Requested for:03Mar2022; Perform:Lab Services - Lab To Draw (Blood Test); Due:32Ckd1546;Ordered; For:Establishing care with new doctor, encounter for, [...] attacks; CATE = N; Verified Transmission to [facility] 8304; Last Updated By: Cortez Klein; 03/03/2022 2:58:35 PM Start: PARoxetine HCl - 10 MG Oral Tablet (Paxil); TAKE 1 TABLET DAILY Rx By: Jordyn Ramirez; Dispense: 90 Days ; #:90 Tablet; Refill: 0;For: Generalized anxiety disorder with panic attacks; CATE = N; [facility]; Last Updated By: [employer]; 03/03/2022 2:58:27 PM GERD (gastroesophageal reflux disease) Renew: Omeprazole 20 MG Oral Capsule Delayed Release; TAKE 1 CAPSULE Daily Rx By: Jordyn Ramirez; Dispense: 90 Days ; #:90 Capsule; Refill: 3;For: GERD (gastroesophageal reflux disease); CATE = N; Verified Transmission to [facility] 1448; Last Updated By: [employer]; 03/03/2022 2:59:29 PM Patient Discussion/Summary 1 MONTH [...] AND MEDICATIONS (more content not included)... Normal [facility] Tobacco Screening.on 022 Adult depression screening assessment No [facility] Work Phone: Fall risk assessment a) No falls within the last year [facility] Work Phone: Tobacco use status [facility] a) Yes [facility] Work Phone: Tobacco Screening. Yes [facility] Work Phone: C. trachomatis/GC PCR Panel on [facility] 10-26-2021 C. trachomatis/GC PCR Panel on [facility] Reason for preventing automatic release->Other Is this specimen being sent to an external lab?->No Release to patient->Manual release only [id number]&Urine-First Void^^^Urine&Urine C. trachomatis PCR on GeneXpert: NEGATIVE-Chlamydia [...] above: Performed By: #### C [facility] ####[address] [phone] Progress Noteon 10-26-2021 Human Resource Statistician Authentication Interface Message Text Patient ID: Luz [...] once for 1 dose - nystatin (MYCOSTATIN) [id number] UNIT/GM OINT ointment; Apply to affected area [...] Blood, Urine Negative Negative POCT Urine Specific Orrum 1.015 1.005 - 1.030 POCT Ketones, Urine Negative Negative mg/dl POCT Glucose, Urine Negative Negative mg/dl Normal [facility] Urine Cultureon 10-26-2021 Bacteria identified Cx Nom (U) Is this specimen being sent to an external lab?->No Release to patient->Automatic [id number]&Urine-CCMS^^^Urine &Urine Urine Culture: Enterococcus sp. Source: [facility] Collected: 10/26/21 17:15 Site: Urine Received : 10/26/21 21:53 Urine Culture FINAL 10/28/21 09:26 10,000 - 50,000 CFU/ml of Normal Skin/urogenital ivy present <10,000 CFU/ml Enterococcus sp. If further work-up is needed, providers should call the Microbiology lab within 3 days. Normal [facility] Comment on above: Performed By: #### U RINE ####[address] [phone] SARS-CoV-2 (COVID-19) RT-PCR on 08-04-2021 SARS-CoV-2 (COVID-19) RNA GIOVANNI+probe Ql (Unsp spec) Positive Abnormal [facility] Comment on above: Order Comment: Is th is a pre-procedure screening test?->NoIs this specimen being sent to an external lab?->[id number]&Nasopharyngeal swab^\S\^Nose&Nose Result Comment: POSI TIVE: SARS-CoV-2 RNA [...] Chris SARS-CoV-2 assay on the [employer] System. - Comment: This test has received FDA Emergency Use Authorization (EUA) and has been verified by [facility]. This test is only authorized for [...] at the following links: For Healthcare Providers: www.[employer].gov/media/450200/download For Patients: www.[employer].gov/media/675574/download - Reference Value: Negative Performed By: #### C OVID ####[address] [phone] CHIRS SARS CoV-2 RT PCR Detected Normal A [facility] Comment on above: Order Comment: Is th is a pre-procedure screening test?->NoIs this specimen being sent to an external lab?->[id number]&Nasopharyngeal swab^\S\^Nose&Nose Performed By: #### C OVID ####[address] [phone] Progress Noteon 08-02-2021 Human Resource Statistician Authentication Interface Message Text Patient ID: Luz [...] CONTROL POCT Control - Valid Lot Number [id number] Normal [facility] SARS-CoV-2 (COVID-19) RT-PCR on 08-02-2021 Date of Symptom Onset [id number] Normal [facility] Comment on above: Order Comment: Is th is a pre-procedure screening test?->NoIs this specimen being sent to an external lab?->[id number]&Nasopharyngeal swab^\S\^Nose&Nose Performed By: #### C OVID ####[address] [phone] Employed in Healthcare setting? No Normal [facility] Comment on above: Order Comment: Is th is a pre-procedure screening test?->NoIs this specimen being sent to an external lab?->[id number]&Nasopharyngeal swab^\S\^Nose&Nose Performed By: #### C OVID ####[address] [phone] Hospitalized? No Normal [facility] Comment on above: Order Comment: Is th is a pre-procedure screening test?->NoIs this specimen being sent to an external lab?->[id number]&Nasopharyngeal swab^\S\^Nose&Nose Performed By: #### C OVID ####[place] [phone] ICU? No Normal [facility] Comment on above: Order Comment: Is th is a pre-procedure screening test?->NoIs this specimen being sent to an external lab?->[id number]&Nasopharyngeal swab^\S\^Nose&Nose Performed By: #### C OVID ####[phone] ? Unknown Normal [facility] Comment on above: Order Comment: Is th is a pre-procedure screening test?->NoIs this specimen being sent to an external lab?->[id number]&Nasopharyngeal swab^\S\^Nose&Nose Performed By: #### C OVID ####[phone] [facility] care [facility]? No Normal [facility] Comment on above: Order Comment: Is th is a pre-procedure screening test?->NoIs this specimen being sent to an external lab?->[id number]&Nasopharyngeal swab^\S\^Nose&Nose Performed By: #### C OVID ####[phone] SARS-CoV-2 (COVID-19) RNA GIOVANNI+probe Ql (Unsp spec) No Normal [facility] Comment on above: Order Comment: Is th is a pre-procedure screening test?->NoIs this specimen being sent to an external lab?->[id number]&Nasopharyngeal swab^\S\^Nose&Nose Performed By: #### C OVID ####[phone] Symptomatic as defined by [facility]? Yes Normal [facility] Comment on above: Order Comment: Is th is a pre-procedure screening test?->NoIs this specimen being sent to an external lab?->[id number]&Nasopharyngeal swab^\S\^Nose&Nose Performed By: #### C OVID ####[facility] [place], [place] [phone] Progress Noteon 07-04-2021 Human Resource Statistician Authentication Interface Message Text Patient ID: Luz [...] to an external lab?->No Release to patient->Automatic [id number]&Blood^\S\^Venous&Venous TIBC will not be run. Is this specimen being sent to an external lab?->No Release to patient->Automatic [id number]&Blood^\S\^Venous&Venous Result Comment: CRP determinations in neonates should be interpreted with caution. CRP may be elevated in circumstances not associated with inflammation (e.g. difficult delivery, pneumothorax). In premature neonates CRP levels may not rise to abnormal levels even if sepsis is present; some speculate that immature liver function decreases the ability to generate a CRP response. Performed By: #### C RP #### [address] [address] Comp Metabolic Panelon 06-23 Albumin [Mass/Vol] 4.6 g/dL Normal 3.5-5.0 [facility] Comment on above: Order Comment: With differential. Is this specimen being sent to an external lab?->No Release to patient->Automatic 18721&Blood^\S\^Venous&Venous TIBC will not be run. Is this specimen being sent to an external lab?->No Release to patient->Automatic [id number]&Blood^\S\^Venous&Venous Performed By: #### C MP #### [address] [address] ALP [Catalytic activity/Vol] 42 U/L Normal 35-104 [facility] Comment on above: Order Comment: With differential. Is this specimen being sent to an external lab?->No Release to patient->Automatic 02005&Blood^\S\^Venous&Venous TIBC will not be run. Is this specimen being sent to an external lab?->No Release to patient->Automatic 04967&Blood^\S\^Venous&Venous Performed By: #### C MP #### [place] [address] ALT [Catalytic activity/Vol] 13 U/L Normal 0-31 [facility] Comment on above: Order Comment: With differential. Is this specimen being sent to an external lab?->No Release to patient->Automatic 23387&Blood^\S\^Venous&Venous TIBC will not be run. Is this specimen being sent to an external lab?->No Release to patient->Automatic 31866&Blood^\S\^Venous&Venous Performed By: #### C MP #### [place] [address] AST [Catalytic activity/Vol] 19 U/L Normal 0-31 [facility] Comment on above: Order Comment: With differential. Is this specimen being sent to an external lab?->No Release to patient->Automatic 13960&Blood^\S\^Venous&Venous TIBC will not be run. Is this specimen being sent to an external lab?->No Release to patient->Automatic 71421&Blood^\S\^Venous&Venous Performed By: #### C MP #### [place] [address] Bili,Total 0.7 mg/dl Normal 0.0-1.0 [facility] Comment on above: Order Comment: With differential. Is this specimen being sent to an external lab?->No Release to patient->Automatic 84589&Blood^\S\^Venous&Venous TIBC will not be run. Is this specimen being sent to an external lab?->No Release to patient->Automatic 26900&Blood^\S\^Venous&Venous Performed By: #### C MP #### [place] [address] Calcium [Mass/Vol] 9.7 mg/dL Normal 7.6-11.0 [facility] Comment on above: Order Comment: With differential. Is this specimen being sent to an external lab?->No Release to patient->Automatic 01772&Blood^\S\^Venous&Venous TIBC will not be run. Is this specimen being sent to an external lab?->No Release to patient->Automatic 62290&Blood^\S\^Venous&Venous Performed By: #### C MP #### [place] [address] Chloride [Moles/Vol] 102 mmol/L Normal 96-108 [facility] Comment on above: Order Comment: With differential. Is this specimen being sent to an external lab?->No Release to patient->Automatic 89801&Blood^\S\^Venous&Venous TIBC will not be run. Is this specimen being sent to an external lab?->No Release to patient->Automatic 05159&Blood^\S\^Venous&Venous Performed By: #### C MP #### [place] [address] CO2 [Moles/Vol] 24.4 mmol/L Normal 22.0-29.0 [facility] Comment on above: Order Comment: With differential. Is this specimen being sent to an external lab?->No Release to patient->Automatic 40223&Blood^\S\^Venous&Venous TIBC will not be run. Is this specimen being sent to an external lab?->No Release to patient->Automatic 16155&Blood^\S\^Venous&Venous Performed By: #### C MP #### [place] [address] Creatinine [Mass/Vol] 0.74 mg/dL Normal 0.50-1.00 [facility] Comment on above: Order Comment: With differential. Is this specimen being sent to an external lab?->No Release to patient->Automatic 64272&Blood^\S\^Venous&Venous TIBC will not be run. Is this specimen being sent to an external lab?->No Release to patient->Automatic 73810&Blood^\S\^Venous&Venous Result Comment: Premature 0.3-1.0 mg/dL Performed By: #### C MP #### [place] [address] Glucose [Mass/Vol] 68 mg/dL Low 70-99 [facility] Comment on above: Order Comment: With differential. Is this specimen being sent to an external lab?->No Release to patient->Automatic 42610&Blood^\S\^Venous&Venous TIBC will not be run. Is this specimen being sent to an external lab?->No Release to patient->Automatic 40678&Blood^\S\^Venous&Venous Result Comment: Criteria for Diagnosis of Diabetes(Effective 12/26/10): Fasting specimen (no caloric intake for at least 8 hours). <100 mg/dl Normal 100-125 mg/dl Increased Risk for Diabetes >125 mg/dl Diagnostic for Diabetes Random Glucose (any time of day without regard to last meal). >=200 mg/dl plus Classic Symptoms of Diabetes Performed By: #### C MP #### [place] [address] Potassium [Moles/Vol] 4.8 mmol/L Normal 3.3-5.1 [facility] Comment on above: Order Comment: With differential. Is this specimen being sent to an external lab?->No Release to patient->Automatic 64326&Blood^\S\^Venous&Venous TIBC will not be run. Is this specimen being sent to an external lab?->No Release to patient->Automatic 25861&Blood^\S\^Venous&Venous Performed By: #### C MP #### [place] [address] Protein [Mass/Vol] 7.6 g/dL Normal 5.9-8.4 [facility] Comment on above: Order Comment: With differential. Is this specimen being sent to an external lab?->No Release to patient->Automatic 16616&Blood^\S\^Venous&Venous TIBC will not be run. Is this specimen being sent to an external lab?->No Release to patient->Automatic 88120&Blood^\S\^Venous&Venous Performed By: #### C MP #### [address] [id number] Sodium [Moles/Vol] 139 mmol/L Normal 133-145 [facility] Comment on above: Order Comment: With differential. Is this specimen being sent to an external lab?->No Release to patient->Automatic 13076&Blood^\S\^Venous&Venous TIBC will not be run. Is this specimen being sent to an external lab?->No Release to patient->Automatic 85301&Blood^\S\^Venous&Venous Performed By: #### C MP #### [address] [id number] Urea nitrogen [Mass/Vol] 16 mg/dL Normal 4-19 [facility] Comment on above: Order Comment: With differential. Is this specimen being sent to an external lab?->No Release to patient->Automatic 32512&Blood^\S\^Venous&Venous TIBC will not be run. Is this specimen being sent to an external lab?->No Release to patient->Automatic 86459&Blood^\S\^Venous&Venous Performed By: #### C MP #### [address] [id number] Complete Blood Counton 06-23 Differential Complete Automated Normal [facility] Comment on above: Order Comment: With differential. Is this specimen being sent to an external lab?->No Release to patient->Automatic 39494&Blood^\S\^Venous&Venous TIBC will not be run. Is this specimen being sent to an external lab?->No Release to patient->Automatic 13257&Blood^\S\^Venous&Venous Performed By: #### C BC #### [place] [address] Basophils/100 WBC (Bld) 0.60 % Normal 0.00-1.00 A [facility] Comment on above: Order Comment: With differential. Is this specimen being sent to an external lab?->No Release to patient->Automatic 81315&Blood^\S\^Venous&Venous TIBC will not be run. Is this specimen being sent to an external lab?->No Release to patient->Automatic 72288&Blood^\S\^Venous&Venous Performed By: #### C BC #### [place] [address] Eosinophils/100 WBC (Bld) 1.40 % Normal 0.00-3.00 [facility] Comment on above: Order Comment: With differential. Is this specimen being sent to an external lab?->No Release to patient->Automatic 39240&Blood^\S\^Venous&Venous TIBC will not be run. Is this specimen being sent to an external lab?->No Release to patient->Automatic 62967&Blood^\S\^Venous&Venous Performed By: #### C BC #### [place] [address] Erythrocyte distribution width (RBC) [Ratio] 11.5 % Normal 0.0-14.4 [facility] Comment on above: Order Comment: With differential. Is this specimen being sent to an external lab?->No Release to patient->Automatic 23332&Blood^\S\^Venous&Venous TIBC will not be run. Is this specimen being sent to an external lab?->No Release to patient->Automatic 47429&Blood^\S\^Venous&Venous Performed By: #### C BC #### [place] [id number] Hematocrit (Bld) [Volume fraction] 42.3 % Normal 36.0-44.0 [facility] Comment on above: Order Comment: With differential. Is this specimen being sent to an external lab?->No Release to patient->Automatic 12390&Blood^\S\^Venous&Venous TIBC will not be run. Is this specimen being sent to an external lab?->No Release to patient->Automatic 61537&Blood^\S\^Venous&Venous Performed By: #### C BC #### [place] [address] Hemoglobin (Bld) [Mass/Vol] 14.7 g/dL Normal 12.0-15.0 [facility] Comment on above: Order Comment: With differential. Is this specimen being sent to an external lab?->No Release to patient->Automatic 17609&Blood^\S\^Venous&Venous TIBC will not be run. Is this specimen being sent to an external lab?->No Release to patient->Automatic 29869&Blood^\S\^Venous&Venous Performed By: #### C BC #### [place] [address] Immature granulocytes/100 WBC (Bld) 0.20 % Normal [facility] Comment on above: Order Comment: With differential. Is this specimen being sent to an external lab?->No Release to patient->Automatic 01247&Blood^\S\^Venous&Venous TIBC will not be run. Is this specimen being sent to an external lab?->No Release to patient->Automatic 46257&Blood^\S\^Venous&Venous Result Comment: Tammie ture Granulocyte Percent includes promyelocytes, myelocytes, and metamyelocytes. IG% > 1.0 indicates a left shift is present. With automated differentials, bands are included in the neutrophil count and not in the Immature Granulocyte Percent. Performed By: #### C BC #### [place] [address] Lymphocytes/100 WBC (Bld) 30.5 % Normal 24.0-44.0 [facility] Comment on above: Order Comment: With differential. Is this specimen being sent to an external lab?->No Release to patient->Automatic 32430&Blood^\S\^Venous&Venous TIBC will not be run. Is this specimen being sent to an external lab?->No Release to patient->Automatic 52493&Blood^\S\^Venous&Venous Performed By: #### C BC #### [address] [address] MCH (RBC) [Entitic mass] 30.0 pg Normal 26.0-34.0 [facility] Comment on above: Order Comment: With differential. Is this specimen being sent to an external lab?->No Release to patient->Automatic 59143&Blood^\S\^Venous&Venous TIBC will not be run. Is this specimen being sent to an external lab?->No Release to patient->Automatic 41854&Blood^\S\^Venous&Venous Performed By: #### C BC #### [address] [address] MCHC 34.8 % Normal 31.0-37.0 [facility] Comment on above: Order Comment: With differential. Is this specimen being sent to an external lab?->No Release to patient->Automatic 79606&Blood^\S\^Venous&Venous TIBC will not be run. Is this specimen being sent to an external lab?->No Release to patient->Automatic 09063&Blood^\S\^Venous&Venous Performed By: #### C BC #### [address] [address] MCV (RBC) [Entitic vol] 86.3 fL Normal 80.0-100.0 [facility] Comment on above: Order Comment: With differential. Is this specimen being sent to an external lab?->No Release to patient->Automatic 49793&Blood^\S\^Venous&Venous TIBC will not be run. Is this specimen being sent to an external lab?->No Release to patient->Automatic 68091&Blood^\S\^Venous&Venous Performed By: #### C BC #### [address] [place] [address] Monocytes/100 WBC (Bld) 8.70 % High 3.00-6.00 A [facility] Comment on above: Order Comment: With differential. Is this specimen being sent to an external lab?->No Release to patient->Automatic 71362&Blood^\S\^Venous&Venous TIBC will not be run. Is this specimen being sent to an external lab?->No Release to patient->Automatic 46918&Blood^\S\^Venous&Venous Performed By: #### C BC #### [address] [address] Neutrophils (Bld) [#/Vol] 5.2 10*3/uL Normal 2.0-7.2 [facility] Comment on above: Order Comment: With differential. Is this specimen being sent to an external lab?->No Release to patient->Automatic 67286&Blood^\S\^Venous&Venous TIBC will not be run. Is this specimen being sent to an external lab?->No Release to patient->Automatic 90561&Blood^\S\^Venous&Venous Performed By: #### C BC #### [address] [address] Neutrophils/100 WBC (Bld) 58.6 % Normal 35.0-66.0 [facility] Comment on above: Order Comment: With differential. Is this specimen being sent to an external lab?->No Release to patient->Automatic 44396&Blood^\S\^Venous&Venous TIBC will not be run. Is this specimen being sent to an external lab?->No Release to patient->Automatic 63360&Blood^\S\^Venous&Venous Performed By: #### C BC #### [address] [address] Nucleated RBC/100 WBC (Bld) [Ratio] 0.0 % Normal -1.0-0.0 [facility] Comment on above: Order Comment: With differential. Is this specimen being sent to an external lab?->No Release to patient->Automatic 95131&Blood^\S\^Venous&Venous TIBC will not be run. Is this specimen being sent to an external lab?->No Release to patient->Automatic 04061&Blood^\S\^Venous&Venous Performed By: #### C BC #### [address] [id number] Platelet mean volume (Bld) [Entitic vol] 10.7 fL Normal [facility] Comment on above: Order Comment: With differential. Is this specimen being sent to an external lab?->No Release to patient->Automatic 88517&Blood^\S\^Venous&Venous TIBC will not be run. Is this specimen being sent to an external lab?->No Release to patient->Automatic 27554&Blood^\S\^Venous&Venous Result Comment: MPV is platelet range and age dependent Performed By: #### C BC #### [address] [address] Platelets (Bld) [#/Vol] 285 10*3/uL Normal 150-450 [facility] Comment on above: Order Comment: With differential. Is this specimen being sent to an external lab?->No Release to patient->Automatic 13266&Blood^\S\^Venous&Venous TIBC will not be run. Is this specimen being sent to an external lab?->No Release to patient->Automatic 02375&Blood^\S\^Venous&Venous Performed By: #### C BC #### [address] [address] RBC 4.90 10E12/L Normal 4.00-4.90 [facility] Comment on above: Order Comment: With differential. Is this specimen being sent to an external lab?->No Release to patient->Automatic 63203&Blood^\S\^Venous&Venous TIBC will not be run. Is this specimen being sent to an external lab?->No Release to patient->Automatic 36134&Blood^\S\^Venous&Venous Performed By: #### C BC #### [address] [id number] WBC (Bld) [#/Vol] 8.8 10*3/uL Normal 4.5-11.0 [facility] Comment on above: Order Comment: With differential. Is this specimen being sent to an external lab?->No Release to patient->Automatic 54525&Blood^\S\^Venous&Venous TIBC will not be run. Is this specimen being sent to an external lab?->No Release to patient->Automatic 38036&Blood^\S\^Venous&Venous Performed By: #### C BC #### [place] [address] Ferritinon 06-23-2021 Ferritin [Mass/Vol] 44 ng/mL Normal 10-291 [facility] Comment on above: Order Comment: With differential. Is this specimen being sent to an external lab?->No Release to patient->Automatic 99904&Blood^\S\^Venous&Venous TIBC will not be run. Is this specimen being sent to an external lab?->No Release to patient->Automatic 32936&Blood^\S\^Venous&Venous Performed By: #### F ERTN #### [address] [address] TSH with reflex T4FRon 06-23 TSH with reflex T4FR 2.171 uIU/mL Normal 0.350-5.500 [facility] Comment on above: Order Comment: With differential. Is this specimen being sent to an external lab?->No Release to patient->Automatic 60983&Blood^\S\^Venous&Venous TIBC will not be run. Is this specimen being sent to an external lab?->No Release to patient->Automatic 27680&Blood^\S\^Venous&Venous Performed By: #### T SHR #### [address] [address] Vitamin D 25 OHon 06-23-2021 25 OH Vitamin D 37 ng/mL Normal 30-100 [facility] Comment on above: Order Comment: With differential. Is this specimen being sent to an external lab?->No Release to patient->Automatic 26310&Blood^\S\^Venous&Venous TIBC will not be run. Is this specimen being sent to an external lab?->No Release to patient->Automatic 26349&Blood^\S\^Venous&Venous Result Comment: Refe rence ranges provided by [facility] are based on Endocrine Society Guidelines: Level Characterization <21 ng/mL Vitamin D deficiency 21-29 ng/mL Suboptimal Vitamin D status 30-100 ng/mL Optimal Vitamin D status >100 ng/mL Potentially toxic Vitamin D effects NOTE: New Reference Ranges effective 18 Performed By: #### V 25DH #### [place] [address] Progress Noteon 06-22-2021 Human Resource Statistician Authentication Interface Message Text Patient ID: Luz [...] Line *Present Clear Background *Present Lot Number [id number] POCT urinalysis dipstick Collection Time: 06/22/21 5:51 PM Result Value Ref Range POCT, Leukocytes, Urine Negative Negative POCT Nitrite, Urine Negative Negative POCT Protein, Urine Trace Negative - Trace mg/dl POCT Urine pH 6.0 5.0 - 8.0 pH POCT Blood, Urine Negative Negative POCT Urine Specific Orrum 1.030 1.005 - 1.030 POCT Ketones, Urine Negative Negative mg/dl POCT Glucose, Urine Negative Negative mg/dl Normal [facility] Progress Noteon 02-15-2021 Human Resource Statistician Authentication Interface Message Text Patient ID: Luz [...] Line *Present Clear Background *Present Lot Number [id number] Normal [facility] Strep Cultureon 02-15-2021 Strep Culture Is this specimen javier ng sent to an external lab?->No Release to patient->Automatic 15024&Throat swab^^^Throat swab&Throat swab Strep Culture: No Beta hemolytic Streptococci isolated. Source: THRSW Collected: 02/15/21 13:17 Site: Throat swab Received : 02/15/21 20:06 Strep Culture FINAL 02/17/21 07:53 No Beta hemolytic Streptococci isolated. Normal [facility] Comment on above: Performed By: #### [facility] #### [place] [address] Progress Noteon 12-14-2020 Human Resource Statistician Authentication Interface Message Text Patient ID: Luz [...] feelings for same or opposite sex, puberty/sexual development/contraceptio ns/STDs, talk with trusted adult if feeling sad [...] content not included)... Normal [facility] Human Resource Statistician Authentication Interface Message Text Luz Hinojosa is a 19 y.o. female patient. PHQ9 Assessment With Score Performed by: Page Ferris, CNA INSTRUCTOR-FACETER Authorized by: Page Ferris [facility] PHQ-9 See PHQ9 Flowsheet Feeling down, depressed, [...] Assessment - CRAFFT Authorized by: Page Ferris [facility] CRAFFT Results: 1. Drink more than a few sips of beer, wine, or any drink containing alcohol? Put 0 if none.: 0 2. Use any marijuana (weed, oil, or hash by smoking, vaping, or in food) or synthetic marijuana (like K2, Spice )? Put 0 if none.: 0 3. Use anything else to get high (like other illegal drugs, prescription or ztet-mlj-yuifcuv medications, and things that you sniff, marte, or vape)? Put 0 if none.: 0 4. Use any tobacco or nicotine products (for example, cigarettes, e-cigarettes, hookahs or smokeless tobacco)?: 0 5. Have you ever ridden in a CAR driven by someone (including yourself) who was high or had been using alcohol or drugs?: No Electronically signed by: FLORENCIA RahmanFACETER Normal [facility] EMERGENCY REPORTon 9 EMERGENCY REPORT [facility] EMERGENCY ROOM REPORT NAME ACCOUNT SEX AGE ADMIT DISCHARGE PT MED. RECORD# NUMBER DATE DATE TYPE ASHISH, [id number] F 18 04/01/19 04/01/19 3 LUZ Alves [id number] ROOM: ER DATE OF : 2000 DICTATING [...] Pharynx is symmetric without any RPA, PPA, PRE BILLING SPECIALIST. There is no significant dental problems. She [...] ambulatory from the emergency room. Follow up [facility]. Return p.r.n. as necessary. In general she appears to be nontoxic and she is pleasant Page 1 of 2 ASHISH LUZ L Emergency Room Report and alert and oriented. DIAGNOSIS: Upper respiratory infection, sinus congestion and left otitis media. Dictated By: Sherri Lisa DO 04/02/19 04:52 JOB #: [id number] Transcribed By: yesenia 04/02/19 06:23 Electronically signed by: E-SIGN SHERRI LISA DO 04/07/19 21:31 Page 2 of 2 YOLI HINOJOSAIANMERCEDES Alves Emergency Room Report Normal [facility] XR Chest 2 Viewson 8 XR Chest 2 Views Exam Date/Time: 04/01/2018 23:14 EDT Reason for Exam: Cough Report STUDY: XR Chest 2 Views; 04/01/2018 11:14 pm INDICATION: Cough. COMPARISON: 09/12/2017 ACCESSION NUMBER(S): [id number] ORDERING CLINICIAN: Sherri Payton FINDINGS: CARDIOMEDIASTINAL SILHOUETTE: Cardiomediastinal silhouette is normal in size and configuration. LUNGS: No focal consolidation, effusion, edema, or pneumothorax. ABDOMEN: No remarkable upper abdominal findings. BONES: No acute osseous changes. IMPRESSION: 1. No evidence of acute cardiopulmonary process. FINAL REPORT Dictated: 04/02/2018 0:02 am Rene Toth MD Signed (Electronic Signature): 04/02/2018 0:02 am Signed by: Rene Toth MD Technologist: [facility] Vital Signs Date Time Vital Sign Value Performing Clinician Facility 06-25-2024 07:39-0500 Body temperature 99.1 [degF] Leatha Samayoa MD Work Phone: [facility] [employer] 06-25-2024 07:39-0500 Diastolic blood pressure 64 mm[Hg] Leatha Samayoa MD Work Phone: [facility] [employer] 06-25-2024 07:39-0500 Heart rate 90 /min Leatha Samayoa MD Work Phone: [facility] [employer] 06-25-2024 07:39-0500 Respiratory rate 16 /min Leatha Samayoa MD Work Phone: [facility] [employer] 06-25-2024 07:39-0500 SaO2% (BldA) [Mass fraction] 100 % Leatha Samayoa MD Work Phone: [facility] [employer] 06-25-2024 07:39-0500 Systolic blood pressure 112 mm[Hg] Leatha Samayoa MD Work Phone: [facility] [employer] 06-22-2024 18:49-0500 Body height 165.1 cm Leatha Samayoa MD Work Phone: [facility] [employer] 06-22-2024 18:49-0500 Body mass index (BMI) [Ratio] 23.8 kg/m2 Leatha Samayoa MD Work Phone: [facility] [employer] 06-22-2024 18:49-0500 Body weight 64.86 kg Leatha Samayoa MD Work Phone: [facility] 06-22-2024 16:45-0500 Diastolic blood pressure 64 mm[Hg] [facility] 06-22-2024 16:45-0500 Heart rate 124 /min [facility] 06-22-2024 16:45-0500 Hourly Rounding [facility] Comment on above: Result Comment: PT D/C TO [facility] AT THIS TIME, PT ON AMBULANCE BED WITH [facility] FOR DEPARTURE 06-22-2024 16:45-0500 Mean blood pressure 79 mm[Hg] [facility] 06-22-2024 16:45-0500 SaO2% (BldA) [Mass fraction] 99 % [facility] 06-22-2024 16:45-0500 Systolic blood pressure 110 mm[Hg] [facility] 06-22-2024 16:30-0500 Diastolic blood pressure 68 mm[Hg] [facility] 06-22-2024 16:30-0500 Heart rate 104 /min [facility] 06-22-2024 16:30-0500 Mean blood pressure 80 mm[Hg] [facility] 06-22-2024 16:30-0500 SaO2% (BldA) [Mass fraction] 99 % [facility] 06-22-2024 16:30-0500 Systolic blood pressure 105 mm[Hg] [facility] 06-22-2024 16:15-0500 Diastolic blood pressure 68 mm[Hg] [facility] 06-22-2024 16:15-0500 Heart rate 101 /min [facility] 06-22-2024 16:15-0500 Hourly Rounding [facility] 06-22-2024 16:15-0500 Mean blood pressure 82 mm[Hg] [facility] 06-22-2024 16:15-0500 SaO2% (BldA) [Mass fraction] 98 % [facility] 06-22-2024 16:15-0500 Systolic blood pressure 109 mm[Hg] [facility] 06-22-2024 15:45-0500 Blood Pressure Location [facility] 06-22-2024 15:45-0500 Hourly Rounding [facility] 06-22-2024 15:35-0500 Blood Pressure Location [facility] 06-22-2024 15:25-0500 Blood Pressure Location [facility] 06-22-2024 13:45-0500 Body temperature 98.24 [degF] [facility] 06-22-2024 13:45-0500 Respiratory rate 18 /min [facility] 06-22-2024 10:00-0500 Body temperature 98.06 [degF] [facility] 06-21-2024 21:02-0500 Hourly Rounding [facility] Comment on above: Result Comment: Pt d/c'd to private vehi franc with all belongings. Denies pain and needs. 06-21-2024 20:45-0500 Hourly Rounding [facility] Comment on above: Result Comment: D/c instructions explain ed to pt and s.o. Both verbalize understanding and pt signs. IV d/c'd. Pt tolerated without complaint. Pt up to bathroom to change. No c/o pain. Denies needs. 06-21-2024 20:30-0500 Hourly Rounding [facility] Comment on above: Result Comment: Pt resting in bed. Denie s pain and needs. Call light in reach. Will continue to monitor. 06-21-2024 19:15-0500 Blood Pressure Location [facility] 06-21-2024 19:15-0500 Body temperature 98.06 [degF] [facility] 06-21-2024 19:15-0500 Diastolic blood pressure 66 mm[Hg] [facility] 06-21-2024 19:15-0500 Heart rate 110 /min [facility] 06-21-2024 19:15-0500 Mean blood pressure 85 mm[Hg] [facility] 06-21-2024 19:15-0500 Respiratory rate 18 /min [facility] 06-21-2024 19:15-0500 Systolic blood pressure 123 mm[Hg] [facility] 06-21-2024 17:00-0500 Body temperature 97.88 [degF] [facility] 06-21-2024 17:00-0500 Diastolic blood pressure 63 mm[Hg] [facility] 06-21-2024 17:00-0500 Heart rate 111 /min [facility] 06-21-2024 17:00-0500 Mean blood pressure 81 mm[Hg] [facility] 06-21-2024 17:00-0500 Systolic blood pressure 117 mm[Hg] [facility] 06-05-2024 14:15-0500 Hourly Rounding [facility] Comment on above: Result Comment: escorted off unit via wh eelchair by OB staff to private car 06-05-2024 07:30-0500 Blood Pressure Location [facility] 06-05-2024 07:30-0500 Body temperature 98.06 [degF] [facility] 06-05-2024 07:30-0500 Diastolic blood pressure 66 mm[Hg] [facility] 06-05-2024 07:30-0500 Heart rate 112 /min [facility] 06-05-2024 07:30-0500 Mean blood pressure 85 mm[Hg] [facility] 06-05-2024 07:30-0500 Respiratory rate 18 /min Anika Bob [facility] 06-05-2024 07:30-0500 Systolic blood pressure 122 mm[Hg] Anika Bob [facility] 06-05-2024 06:15-0500 Hourly Rounding Anika Bob [facility] Comment on above: Result Comment: appears sleeping soundly , left undisturbed 06-05-2024 04:30-0500 Hourly Rounding Anika Bob [facility] Comment on above: Result Comment: awakens to rounding. ass issted up to BR. denies further needs/pain 06-04-2024 22:15-0500 Blood Pressure Location Anika Bob [facility] 06-04-2024 22:15-0500 Diastolic blood pressure 65 mm[Hg] Anika Bob [facility] 06-04-2024 22:15-0500 Heart rate 79 /min Anika Bob [facility] 06-04-2024 22:15-0500 Mean blood pressure 84 mm[Hg] Anika Bob [facility] 06-04-2024 22:15-0500 Respiratory rate 18 /min Anika Bob [facility] 06-04-2024 22:15-0500 Systolic blood pressure 122 mm[Hg] Anika Bob [facility] 06-04-2024 22:00-0500 Body temperature 98.24 [degF] Anika Bob [facility] 06-04-2024 15:54-0500 Diastolic blood pressure 56 mm[Hg] Anika Bob [facility] 06-04-2024 15:54-0500 Heart rate 113 /min Anika Bob [facility] 06-04-2024 15:54-0500 Mean blood pressure 84 mm[Hg] Anika Bob [facility] 06-04-2024 15:54-0500 Respiratory rate 18 /min Anika Bob [facility] 06-04-2024 15:54-0500 Systolic blood pressure 141 mm[Hg] Anika Bob [facility] 06-04-2024 07:20-0500 Body temperature 97.7 [degF] Anika Bob [facility] 06-04-2024 07:20-0500 Heart rate 130 /min Anika Bob [facility] 06-04-2024 07:20-0500 SaO2% (BldA) [Mass fraction] 99 % Anika Bob [facility] 06-04-2024 05:49-0500 Blood Pressure Location nAika Bob [facility] 05-06-2024 14:58-0400 Body height 165.1 cm Jordyn Thakur CNA INSTRUCTOR-FACETER Work Phone: [facility] 05-06-2024 14:58-0400 Body mass index (BMI) [Ratio] 19.8 kg/m2 Jordyn Thakur CNA INSTRUCTOR-FACETER Work Phone: [facility] 05-06-2024 14:58-0400 Body weight 53.98 kg Jordyn Simon CNA INSTRUCTOR-FACETER Work Phone: [facility] 08-21-2023 14:36-0500 Body height 165.1 cm Anika Richardson MD Work Phone: [facility] 08-21-2023 14:36-0500 Body mass index (BMI) [Ratio] 19.87 kg/m2 Anika Richardson MD Work Phone: [facility] 08-21-2023 14:36-0500 Body weight 54.16 kg Anika Richardson MD Work Phone: [facility] 08-21-2023 14:36-0500 Diastolic blood pressure 70 mm[Hg] Anika Richardson MD Work Phone: [facility] 08-21-2023 14:36-0500 Systolic blood pressure 116 mm[Hg] Anika Richardson MD Work Phone: [facility] 06-19-2023 17:27-0500 SaO2% (BldA) [Mass fraction] 98 % Jordyn Thakur CNA INSTRUCTOR-FACETER Work Phone: [facility] 06-19-2023 17:22-0500 Body height 165.1 cm Jordyn Thakur CNA INSTRUCTOR-FACETER Work Phone: [facility] 06-19-2023 17:22-0500 Body mass index (BMI) [Ratio] 19.64 kg/m2 Jordyn Thakur CNA INSTRUCTOR-FACETER Work Phone: [facility] 06-19-2023 17:22-0500 Body temperature 98.2 [degF] Jordyn Thakur CNA INSTRUCTOR-FACETER Work Phone: [facility] 06-19-2023 17:22-0500 Body weight 53.52 kg Jordyn Thakur CNA INSTRUCTOR-FACETER Work Phone: [facility] 06-19-2023 17:22-0500 Diastolic blood pressure 81 mm[Hg] Jordyn Thakur CNA INSTRUCTOR-FACETER Work Phone: [facility] 06-19-2023 17:22-0500 Heart rate 98 /min Jordyn Thakur CNA INSTRUCTOR-FACETER Work Phone: [facility] 06-19-2023 17:22-0500 Respiratory rate 16 /min Jordyn Thakur CNA INSTRUCTOR-FACETER Work Phone: [facility] 06-19-2023 17:22-0500 Systolic blood pressure 124 mm[Hg] Jordyn Thakur CNA INSTRUCTOR-FACETER Work Phone: [facility] 05-18-2023 10:33-0400 Body height 165.1 cm Jordyn Thakur CNA INSTRUCTOR-FACETER Work Phone: [facility] 05-18-2023 10:33-0400 Body mass index (BMI) [Ratio] 19.64 kg/m2 Jordyn Thakurprimo NUNON-FACETER Work Phone: [facility] 05-18-2023 10:33-0400 Body weight 53.52 kg Jordyn Thakur CNA INSTRUCTOR-FACETER Work Phone: [facility] 05-18-2023 10:33-0400 Diastolic blood pressure 74 mm[Hg] Jordyn Thakur CNA INSTRUCTOR-FACETER Work Phone: [facility] 05-18-2023 10:33-0400 Heart rate 98 /min Jordyn Thakur CNA INSTRUCTOR-FACETER Work Phone: [facility] 05-18-2023 10:33-0400 SaO2% (BldA) [Mass fraction] 99 % Jordyn Thakur APRN-FACETER Work Phone: [facility] 05-18-2023 10:33-0400 Systolic blood pressure 107 mm[Hg] Jordyn Thakur APRN-FACETER Work Phone: [facility] 04-23-2023 09:48-0400 Body height 165.1 cm Kemi Echevarria MD Work Phone: [facility] 04-23-2023 09:48-0400 Body mass index (BMI) [Ratio] 19.64 kg/m2 Kemi Echevarria MD Work Phone: [facility] 04-23-2023 09:48-0400 Body weight 53.52 kg Kemi Echevarria MD Work Phone: [facility] 04-23-2023 09:48-0400 Diastolic blood pressure 60 mm[Hg] Kemi Echevarria MD Work Phone: [facility] 04-23-2023 09:48-0400 Heart rate 125 /min Kemi Echevarria MD Work Phone: [facility] 04-23-2023 09:48-0400 SaO2% (BldA) [Mass fraction] 99 % Kemi Echevarria MD Work Phone: [facility] 04-23-2023 09:48-0400 Systolic blood pressure 120 mm[Hg] Kemi Echevarria MD Work Phone: [facility] 04-13-2023 17:00-0400 Diastolic blood pressure 88 mm[Hg] Page Josy Other Phone: [facility] 04-13-2023 17:00-0400 Heart rate 83 /min Page Josy Other Phone: [facility] 04-13-2023 17:00-0400 Respiratory rate 18 /min Page Josy Other Phone: [facility] 04-13-2023 17:00-0400 SaO2% (BldA) [Mass fraction] 100 % Page Josy Other Phone: [facility] 04-13-2023 17:00-0400 Systolic blood pressure 128 mm[Hg] Page Josy Other Phone: [facility] 04-13-2023 15:13-0400 Body temperature 98.06 [degF] Page Josy Other Phone: [facility] 04-13-2023 15:13-0400 Body weight 55 kg Page Josy Other Phone: [facility] 04-11-2023 10:00-0400 Body temperature 97.88 [degF] Page Josy Other Phone: [facility] 04-11-2023 10:00-0400 Diastolic blood pressure 84 mm[Hg] Page Josy Other Phone: [facility] 04-11-2023 10:00-0400 Heart rate 81 /min Page Josy Other Phone: [facility] 04-11-2023 10:00-0400 Respiratory rate 17 /min Page Josy Other Phone: [facility] 04-11-2023 10:00-0400 SaO2% (BldA) [Mass fraction] 99 % Page Josy Other Phone: [facility] 04-11-2023 10:00-0400 Systolic blood pressure 122 mm[Hg] Page Josy Other Phone: [facility] 11-06-2022 20:48-0400 Body height 165.1 cm Page Josy Other Phone: [facility] 11-06-2022 20:48-0400 Body temperature 97.7 [degF] Page Josy Other Phone: [facility] 11-06-2022 20:48-0400 Body weight 54.5 kg Page Josy Other Phone: [facility] 11-06-2022 20:48-0400 Diastolic blood pressure 79 mm[Hg] Page Josy Other Phone: [facility] 11-06-2022 20:48-0400 Heart rate 92 /min Page Josy Other Phone: [facility] 11-06-2022 20:48-0400 Respiratory rate 18 /min Page Josy Other Phone: [facility] 11-06-2022 20:48-0400 SaO2% (BldA) [Mass fraction] 97 % Page Josy Other Phone: [facility] 11-06-2022 20:48-0400 Systolic blood pressure 133 mm[Hg] Page Josy Other Phone: [facility] 08-24-2022 18:30-0500 Diastolic blood pressure 105 mm[Hg] Page Josy Other Phone: [facility] 08-24-2022 18:30-0500 Heart rate 88 /min Page Josy Other Phone: [facility] 08-24-2022 18:30-0500 Respiratory rate 15 /min Page Josy Other Phone: [facility] 08-24-2022 18:30-0500 SaO2% (BldA) [Mass fraction] 100 % Page Josy Other Phone: [facility] 08-24-2022 18:30-0500 Systolic blood pressure 129 mm[Hg] Page Josy Other Phone: [facility] 08-24-2022 16:15-0500 Body height 165.1 cm Page Josy Other Phone: [facility] 08-24-2022 16:15-0500 Body temperature 97.7 [degF] Page Ferris Other Phone: [facility] 08-24-2022 16:15-0500 Body weight 54.5 kg Page Ferris Other Phone: [facility] 08-03-2022 11:02-0500 Body height 165.1 cm Jordyn Thakur Work Phone: [facility] Work Phone: 08-03-2022 11:02-0500 Body mass index (BMI) [Ratio] 21.2 kg/m2 Jordyn Thakur Work Phone: [facility] Work Phone: 08-03-2022 11:02-0500 Body surface area Derived from formula 1.63 m2 Jordyn Thakur Work Phone: [facility] Work Phone: 08-03-2022 11:02-0500 Body weight 57.78 kg Jordyn Thakur Work Phone: [facility] Work Phone: 08-03-2022 11:02-0500 Diastolic blood pressure 74 mm[Hg] Jordyn Thakur Work Phone: [facility] Work Phone: 08-03-2022 11:02-0500 Heart rate 88 /min Jordyn Thakur Work Phone: [facility] Work Phone: 08-03-2022 11:02-0500 Systolic blood pressure 116 mm[Hg] Jordyn Thakur Work Phone: [facility] Work Phone: 06-14-2022 15:28-0500 Body height 165.1 cm Jordyn D Thakur Work Phone: [facility] Work Phone: 06-14-2022 15:28-0500 Body mass index (BMI) [Ratio] 19.64 kg/m2 Jordyn Jason Thakur Work Phone: [facility] Work Phone: 06-14-2022 15:28-0500 Body surface area Derived from formula 1.58 m2 Jordyn Jason Thakur Work Phone: [facility] Work Phone: 06-14-2022 15:28-0500 Body weight 53.52 kg Jordyn Gomez Thakur Work Phone: [facility] Work Phone: 06-14-2022 15:28-0500 Diastolic blood pressure 82 mm[Hg] Jordyn Gomez Thakur Work Phone: [facility] Work Phone: 06-14-2022 15:28-0500 Heart rate 101 /min Jordyn Jason Thakur Work Phone: [facility] Work Phone: 06-14-2022 15:28-0500 Systolic blood pressure 118 mm[Hg] Jordyn Gomez Thakur Work Phone: [facility] Work Phone: 06-06-2022 14:14-0500 Body height 165.1 cm Jordyn Gomez Ramirez Work Phone: [facility] Work Phone: 06-06-2022 14:14-0500 Body mass index (BMI) [Ratio] 19.64 kg/m2 Jordyn Jason Ramirez Work Phone: [facility] Work Phone: 06-06-2022 14:14-0500 Body surface area Derived from formula 1.58 m2 Jordyn Gomez Ramirez Work Phone: [facility] Work Phone: 06-06-2022 14:14-0500 Body weight 53.52 kg Jordyn Jason Ramirez Work Phone: [facility] Work Phone: 06-06-2022 14:14-0500 Diastolic blood pressure 70 mm[Hg] Jordyn D Ramirez Work Phone: [facility] Work Phone: 06-06-2022 14:14-0500 Heart rate 108 /min Jordyn Jason Ramirez Work Phone: [facility] Work Phone: 06-06-2022 14:14-0500 SaO2% (BldA) [Mass fraction] 99 % Jordyn Gomez Ramirez Work Phone: [facility] Work Phone: 06-06-2022 14:14-0500 Systolic blood pressure 112 mm[Hg] Jordyn Jason NguyễnRamirez Work Phone: [facility] Work Phone: 05-02-2022 08:59-0400 Body height 165.1 cm Jordyn Gomez Ramirez Work Phone: [facility] Work Phone: 05-02-2022 08:59-0400 Body mass index (BMI) [Ratio] 17.81 kg/m2 Jordyn Nguyễnkins Work Phone: [facility] Work Phone: 05-02-2022 08:59-0400 Body surface area Derived from formula 1.52 m2 Jordyn Jason Ramirez Work Phone: [facility] Work Phone: 05-02-2022 08:59-0400 Body weight 48.53 kg Jordyn Gomez Ramirez Work Phone: [facility] Work Phone: 05-02-2022 08:59-0400 Diastolic blood pressure 68 mm[Hg] Jordyn Nguyễnkins Work Phone: [facility] Work Phone: 05-02-2022 08:59-0400 Heart rate 118 /min Jordyn D Ramirez Work Phone: [facility] Work Phone: 05-02-2022 08:59-0400 Systolic blood pressure 102 mm[Hg] Jordyn D Ramirez Work Phone: [facility] Work Phone: 03-03-2022 14:28-0400 Body height 165.1 cm Jordyn D Ramirez Work Phone: [facility] Work Phone: 03-03-2022 14:28-0400 Body mass index (BMI) [Ratio] 18.47 kg/m2 Jordyn D Ramirez Work Phone: [facility] Work Phone: 03-03-2022 14:28-0400 Body surface area Derived from formula 1.54 m2 Jordyn D Ramirez Work Phone: [facility] Work Phone: 03-03-2022 14:28-0400 Body weight 50.35 kg Jordyn D Ramirez Work Phone: [facility] Work Phone: 03-03-2022 14:28-0400 Diastolic blood pressure 72 mm[Hg] Jordyn D Ramirez Work Phone: [facility] Work Phone: 03-03-2022 14:28-0400 Heart rate 84 /min Jordyn D Ramirez Work Phone: [facility] Work Phone: 03-03-2022 14:28-0400 Systolic blood pressure 110 mm[Hg] Jordyn D Ramirez Work Phone: [facility] Work Phone: 01-04-2021 13:50-0400 Diastolic blood pressure 70 mm[Hg] Page Josy Other Phone: [facility] 01-04-2021 13:50-0400 Diastolic blood pressure 73 mm[Hg] Page Josy Other Phone: [facility] 01-04-2021 13:50-0400 Diastolic blood pressure 77 mm[Hg] Page Josy Other Phone: [facility] 01-04-2021 13:50-0400 Heart rate 79 /min Page Josy Other Phone: [facility] 01-04-2021 13:50-0400 Heart rate 77 /min Page Josy Other Phone: [facility] 01-04-2021 13:50-0400 Heart rate 89 /min Page Josy Other Phone: [facility] 01-04-2021 13:50-0400 Systolic blood pressure 104 mm[Hg] Page Josy Other Phone: [facility] 01-04-2021 13:50-0400 Systolic blood pressure 113 mm[Hg] Page Josy Other Phone: [facility] 01-04-2021 13:38-0400 Respiratory rate 20 /min Page Josy Other Phone: [facility] 01-04-2021 11:45-0400 Body height 165.1 cm Page Josy Other Phone: [facility] 01-04-2021 11:45-0400 Body temperature 98.06 [degF] Page Josy Other Phone: [facility] 01-04-2021 11:45-0400 Body weight 60.5 kg Page Josy Other Phone: [facility] 01-04-2021 11:[id number] SaO2% (BldA) [Mass fraction] 98 % Page Ferris Other Phone: [facility] Encounters Encounter Date Encounter Type Care Provider Facility Start: 06-22-2024 End: 06-25-2024 Evaluation and management of inpatient Leatha Samayoa MD Work Phone: [facility] Start: 06-22-2024 End: 06-22-2024 ambulatory Anika Bob [place] Start: 06-22-2024 End: 06-22-2024 Patient encounter procedure Anika Gomez Paulino [facility] Start: 06-21-2024 End: 06-21-2024 ambulatory Anika Bob [facility] Start: 06-21-2024 End: 06-21-2024 Patient encounter procedure Anika Gomez Paulino [facility] Start: 06-18-2024 End: 06-18-2024 ambulatory Anika Bob [facility] Start: 06-18-2024 End: 06-18-2024 Patient encounter procedure Anika Bob [facility] Start: 06-13-2024 End: 06-13-2024 ambulatory Anika Bob [facility] Start: 06-13-2024 End: 06-13-2024 Patient encounter procedure Anika Bob [facility] Start: 06-03-2024 End: 06-05-2024 ambulatory Anika Bob [facility] Start: 06-03-2024 End: 06-05-2024 Observation Anika Jason Bob [facility] Start: 05-06-2024 End: 05-06-2024 Office outpatient visit 25 minutes Jordyn Thakur CNA INSTRUCTOR-FACETER Work Phone: [facility] Comment on above: Sore throat (Primary Dx) Start: 05-06-2024 End: 05-06-2024 ambulatory [facility] Start: 02-04-2024 End: 02-04-2024 ambulatory Anika Bob [place] Start: 02-04-2024 End: 02-04-2024 Lab Drop off Anika Bob [facility] Start: 01-09-2024 End: 01-09-2024 ambulatory Anika Bob [facility] Start: 01-09-2024 End: 01-09-2024 Patient encounter procedure Anika Bob [facility] Start: 10-10-2023 End: 10-10-2023 Office outpatient visit 15 minutes Jordyn Thakur CNA INSTRUCTOR-FACETER Work Phone: [facility] Comment on above: Generalized anxiety disorder with panic attacks Start: 10-10-2023 End: 10-10-2023 ambulatory [facility] Start: 09-22-2023 End: 09-22-2023 ambulatory Anika Bob [place] Start: 09-22-2023 End: 09-22-2023 Patient encounter procedure Anika Jason Bob [facility] Start: 09-19-2023 End: 09-19-2023 Office outpatient visit 25 minutes Jordyn Thakur CNA INSTRUCTOR-FACETER Work Phone: [facility] Comment on above: Nausea (Primary Dx); Nasal congestion; Acute non-recurrent sinusitis, unspecified location Start: 09-19-2023 End: 09-19-2023 ambulatory [facility] Start: 09-12-2023 End: 09-12-2023 Office outpatient visit 25 minutes Jordyn Thakur CNA INSTRUCTOR-FACETER Work Phone: [facility] Comment on above: Generalized anxiety disorder with panic attacks (Primary Dx) Start: 09-12-2023 End: 09-12-2023 ambulatory [facility] Start: 08-27-2023 End: 08-28-2023 ambulatory [facility] Start: 08-21-2023 End: 08-21-2023 Office outpatient new 30 minutes Anika Richardson MD Work Phone: [facility] Office Building Comment on above: Family planning coun seling (Primary Dx) Start: 08-21-2023 End: 08-21-2023 ambulatory ANIKA Godinez [facility] Start: 07-13-2023 End: 07-13-2023 ambulatory [facility] Start: 06-19-2023 End: 06-19-2023 Emergency department patient visit [facility] Start: 06-19-2023 End: 06-19-2023 Emergency department patient visit Jordyn Thakur CNA INSTRUCTOR-FACETER Work Phone: [facility] Emergency Medicine Comment on above: Urinary tract infect ion without hematuria, site unspecified (Primary Dx) Start: 05-18-2023 End: 05-18-2023 Office outpatient visit 25 minutes Jordyn Thakur CNA INSTRUCTOR-FACETER Work Phone: [facility] Comment on above: Urinary frequency (P rimary Dx); Urinary tract infection with hematuria, site unspecified; Generalized anxiety disorder with panic attacks; Gastroesophageal reflux disease without esophagitis Start: 05-18-2023 End: 05-18-2023 ambulatory [facility] Start: 04-23-2023 End: 04-23-2023 Office outpatient visit 25 minutes Kemi Echevarria MD Work Phone: [facility] Comment on above: H/O urinary tract in fection (Primary Dx); Generalized anxiety disorder with panic attacks Start: 04-13-2023 End: 04-13-2023 Emergency department patient visit Chris Blue [facility] Emergency 14 Start: 04-09-2023 End: 04-11-2023 ambulatory Ms. Jordyn Thakur Facility:[id number] Start: 04-09-2023 End: 04-11-2023 Evaluation and management of inpatient Bautista Villanueva [facility] 310 01 Start: 03-27-2023 End: 03-27-2023 Emergency department patient visit JORDYN RAMIREZ [facility] Start: 11-06-2022 End: 11-06-2022 Emergency department patient visit Alie Flor [facility] Emergency 11 Start: 10-20-2022 End: 10-20-2022 Office outpatient visit 15 minutes Jordyn Thakur CNA INSTRUCTOR-FACETER Work Phone: [facility] Comment on above: Vaginal yeast infect ion (Primary Dx) Start: 10-03-2022 End: 10-03-2022 Office outpatient visit 15 minutes Dominick Lewis MD Work Phone: [facility] Comment on above: Pharyngitis, unspeci fied etiology (Primary Dx) Start: 10-02-2022 End: 10-02-2022 Emergency department patient visit JORDYN RAMIREZ [facility] Start: 08-31-2022 ambulatory FACETER JORDYN Sue acility:[id number] Start: 08-24-2022 End: 08-24-2022 Emergency department patient visit Tyrell Pelaez [facility] Emergency Start: 08-03-2022 Office outpatient vi sit 25 minutes Jordyn Thakur Work Phone: [facility] Work Phone: Start: 08-03-2022 ambulatory FACETER JORDYN Sue acility:[id number] Start: 06-14-2022 Office outpatient vi sit 15 minutes Jordyn Thakur Work Phone: [facility] Work Phone: Start: 06-14-2022 ambulatory FACETER JORDYN Sue acility:[id number] Start: 06-07-2022 End: 06-11-2022 ambulatory JOSELIN ANNE [facility] Ambulatory Start: 06-06-2022 ambulatory FACETER JORDYN Sue acility:[id number] Start: 06-06-2022 Office outpatient vi sit 10 minutes Jordyn Ramirez Work Phone: [facility] Work Phone: Start: 05-23-[address] Kemi Paul ility:[id number] Start: 05-10-2022 End: 05-14-2022 ambulatory [facility] Start: 05-02-2022 Office outpatient vi sit 25 minutes Jordyn Ramirez Work Phone: [facility] Work Phone: Start: 05-02-2022 ambulatory FACETER JORDYN Sue acility:[id number] Start: 04-25-2022 End: 04-25-2022 ambulatory JOSELIN [facility] Start: 04-25-2022 End: 04-25-2022 [facility] Work Phone: [facility] Comment on above: Closed nondisplaced fracture of distal phalanx of left middle finger, initial encounter (Primary Dx) Start: 04-24-2022 End: 04-24-2022 Emergency department patient visit STANLEY LOO [facility] Start: 03-15-2022 Chart Update Jordyn Ramirez Work Phone: [facility] Work Phone: Start: 03-03-2022 Office outpatient ne w 45 minutes Jordyn Ramirez Work Phone: [facility] Work Phone: Start: 01-04-2021 End: 01-04-2021 Emergency department patient visit Alie Yadira [facility] Emergency 13 Start: 04-01-2019 End: 04-01-2019 Emergency department patient visit DILIA BURNS [facility] Start: 10-27-2018 End: 10-27-2018 Emergency department patient visit Page Ferris Facility:[facility] Start: 04-01-2018 End: 04-02-2018 Emergency department patient visit Page Ferris Facility:[facility] Start: 01-24-2018 End: 01-24-2018 Emergency department patient visit Page Ferris Facility:[facility] Procedures Date Procedure Procedure Detail Performing Clinician Start: 06-23-2024 Iadna streptococcus group b amplified probe tq Nathalia Santos MD Work Phone: Start: 06-23-2024 Blood count complete automated Nathalia Santos MD Work Phone: Start: 06-23-2024 Us preg uterus w/det ail natasha 1st gestation Malu Adams MD Work Phone: Start: 06-22-2024 Antibody screen JULIET ROCA Comment on above: Order Comment: HOLD. Specimen is valid for 3 days - nurse to verify valid specimen Performed By: #### L [id number] #### Strike Operations Officer: JORDYN DUFFY ([id number]) [facility] BLOOD [facility] ([facility]) [address] [place] [address] Start: 06-22-2024 ABO and Rh group [Ty pe] in Blood by Confirmatory method Malu Adams MD Work Phone: Start: 06-22-2024 Blood typing serologic abo Malu Adams MD Work Phone: Start: 06-22-2024 Comprehensive metabo lic panel Malu Adams MD Work Phone: Start: 06-22-2024 End: 06-22-2024 Culture bacterial quanttative colony count urine Malu Adasm MD Work Phone: Start: 06-22-2024 Bacterial vaginosis and vaginitis rRNA panel - Vaginal fluid by Probe Malu Adams MD Work Phone: Start: 06-22-2024 Adult depression scr eening assessment Leatha Samayoa MD Work Phone: Start: 06-18-2024 Blood count complete automated Jorge Parra MD Work Phone: Start: 06-04-2024 Betamethasone (substance) Anika Bob Comment on above: 2nd dose Start: 06-03-2024 Betamethasone (substance) Anika Bob Comment on above: 1st done given 06/03 @ 2159 Start: 02-04-2024 Blood count complete automated Historical Provider Work Phone: Start: 02-04-2024 Iaad ia hepatitis b surface antigen Historical Provider Work Phone: Start: 02-04-2024 Neisseria gonorrhoea e DNA [Presence] in Cervical mucus by GIOVANNI with probe detection Historical Provider Work Phone: Start: 02-04-2024 Syphilis test non-treponemal antibody qual Historical Provider Work Phone: Start: 08-27-2023 PROGESTERONE JORDYN THAKUR Start: 07-13-2023 [...] dip stick/tabl et reagent auto microscopy Bela CRAVEN-C Work Phone: Start: 05-18-2023 Bacteria identified in Urine by Culture JORDYN THAKUR Start: 05-18-2023 POCT UA AUTOMATED MA NUALLY RESULTED JORDYN THAKUR Start: 05-18-2023 Urnls dip stick/tabl et rgnt auto w/o microscopy Jordyn Thakur CNA INSTRUCTOR-FACETER Work Phone: Start: 04-14-2023 Lipid 1996 panel - S charley or Plasma Kemi Echevarria MD Work Phone: Start: 03-10-2022 Lipid 1996 panel - S charley or Plasma Dominick Lewis MD Work Phone: Start: 01-04-2021 End: 01-04-2021 EKG impression Beverly Young Extraction of wisdom tooth A my D Ramirez Work Phone: Comment on above: x 4 extracted 4 year s ago; Plan of Treatment Date Care Activity Detail Author Start: 12-29-2075 RSV Immunization for Adults (1 - 1-dose 75+ series) RSV Immunization for Adults (1 - 1-dose 75+ series) [facility] Start: 2050 Zoster Vaccines (1 of 2) Zoste r Vaccines (1 of 2) [facility] Start: 04-14-2028 Lipid panel Lipid Panel [facility] Start: 03-10-2027 Lipid panel Lipid Panel [facility] Start: 06-22-2025 Depression Screening Depression Scre ening [facility] Start: 04-11-2024 End: 04-11-2024 Patient encounter procedure 04/11/2024 4:20 PM EDT Office Visit [facility] [address] [place] [address] Jordyn Thakur, CNA INSTRUCTOR-FACETER [address] [place] [place] [address] [facility] Start: 03-31-2024 DTaP/Tdap/Td Vaccine s (7 - Td or Tdap) DTaP/Tdap/Td Vaccines (7 - Td or Tdap) [facility] Start: 03-31-2024 Tetanus vaccination Tetanus: Every 1 0yrs [facility] Start: 03-23-2024 COVID-19 Vaccine ( season) COVID-19 Vaccine ( season) [facility] Start: 03-23-2024 COVID-19 Vaccine ( season) COVID-19 Vaccine ( season) [facility] Start: 03-23-2024 Influenza vaccination Influenza Vacc ine (#1) [facility] Start: 01-20-2024 Influenza vaccination Influenza Vacc ine (#1) [facility] Comment on above: Postponed from 03/23 (Patient Refused) Start: 10-22-2023 End: 10-22-2023 Patient encounter procedure 10/22/2023 3:30 PM EDT Office Visit [facility] [address] [place] [phone] Anika Richardson MD [address] [facility] [address] [place] [phone] [facility] Start: 10-17-2023 End: 10-17-2023 Patient encounter procedure 10/17/2023 1:00 PM EDT Office Visit [facility] Building [address] [place] [address] 1st [place] [phone] Cooper Hensley MD [address] [place] [phone] [facility] Start: 10-10-2023 End: 10-10-2023 Telemedicine consultation with patient 10/10/2023 3:40 PM EDT Telemedicine [facility] [address] [facility] [place] [phone] Jordyn Thakur, CNA INSTRUCTOR-FACETER [address] [facility] [place], [place] [phone] [facility] Start: 08-27-2023 End: 08-21-2024 Progesterone [Mass/volume] in Serum or Plasma Progesterone Lab Routine Family planning counseling Expected: 08/27/2023 (Approximate), Expires: 08/21/2024 [facility] Service Area Work Phone: Comment on above: Expected: 08/27/2023 (Approximate), Expires: 08/21/2024 Start: 07-13-2023 End: 07-13-2023 Patient encounter procedure 07/13/2023 9:00 AM EST Office Visit [facility] [address] [facility] [place] [address] Jordyn Thakur, CNA INSTRUCTOR-FACETER [address] [place] [address] [facility] Start: 07-03-2023 End: 07-03-2023 Patient encounter procedure 07/03/2023 2:15 PM EST Office Visit [facility] [address] [place] [address] Lola Devine MD MPH [address] [facility], [address] [place], [place] [phone] [facility] Start: 05-18-2023 End: 05-25-2023 Bacteria identified in Urine by Culture [facility] Service Area Work Phone: Comment on above: Expected: 05/18/2023 (Approximate), Expires: 05/25/2023 Start: 04-09-2023 End: 04-09-2024 oxyCODONE Immediate Release 5 mg Oral Tablet Every 4 Hours ; Tablet (OXYIR, ROXICODONE)DOSE = 5 mg Oral Every 4 Hours, PRN Pain - Severe (7-10) Start: 09-Apr-2023 End: 08-Apr-2024 Ordered: 09-Apr-2023 Delgado Nix Intent [facility] Start: 04-09-2023 End: 04-09-2024 [facility] Start: 03-06-2023 FUV, Provider: Jordyn Ramirez, Status: Pen, Time: 2:40 PM FUV, Provider: Jordyn Ramirez, Status: Pen, Time: 2:40 PM [facility] Work Phone: Start: 03-06-2023 FUV, Provider: Jordyn Thakur, Status: Pen, Time: 2:40 PM FUV, Provider: Jordyn Thakur, Status: Pen, Time: 2:40 PM [facility] Work Phone: Start: 03-06-2023 Patient encounter procedure Outpatient [facility] Start: 06-Mar-2023 14:40 Jordyn Thakur Intent [facility] Start: 03-06-2023 End: 03-06-2023 Patient encounter procedure 03/06/2023 2:40 PM EDT Office Visit [facility] [address] [facility] [place] [phone] Jordyn Thakur, CNA INSTRUCTOR-FACETER [address] [facility] [place] [address] [facility] Start: 10-26-2022 Screening for Chlamy ankita trachomatis Chlamydia Screening [facility] Start: 09-14-2022 FUV, Provider: Jordyn Thakur, Status: Pen, Time: 2:20 PM FUV, Provider: Jordyn Thakur, Status: Pen, Time: 2:20 PM [facility] Internal [facility] Work Phone: Start: 09-14-2022 Patient encounter procedure [facility] Start: 08-31-2022 Patient encounter procedure Phyllis Mtz Start: 08-10-2022 NPV, Provider: Jocelyne Bae, Status: Pen, Time: 1:00 PM NPV, Provider: Jocelyne Bae, Status: Pen, Time: 1:00 PM [facility] Work Phone: Start: 05-23-2022 FUV, Provider: Kemi Echevarria, Status: Pen, Time: 2:00 PM FUV, Provider: Kemi Echevarria, Status: Pen, Time: 2:00 PM [facility] Work Phone: Start: 05-10-2022 End: 05-10-2022 Patient encounter procedure 05/10/2022 Office Visit Sports Medicine Joselin Noyola, FACETER [address] [phone] [facility] Start: 03-31-2022 FUV, Provider: Jordyn Ramirez, Status: Pen, Time: 2:20 PM FUV, Provider: Jordyn Ramirez, Status: Pen, Time: 2:20 PM -[facility] Work Phone: Start: 03-23-2022 Influenza vaccination [facility] Start: 2021 Screening for malign ant neoplasm of cervix [facility] Start: 12-14-2021 History and physical examination, annual for health maintenance Wellness Visit [facility] Start: 2018 COVID-19 Vaccine (#1) COVID-19 Vacci ne (#1) [facility] Start: 2018 Hepatitis C screening Hepatitis C Sc reening [facility] Start: 12-29-2015 HIV screening HIV Screening [facility] Start: 2012 Depression screening using PHQ-9 (Patient Health Questionnaire 9) score Depression Screening (PHQ-2/9) [facility] Start: 2006 Pneumococcal Vaccine : Pediatrics (0 to 5 Years) and At-Risk Patients (6 to 64 Years) (1 - PCV) Pneumococcal Vaccine: Pediatrics (0 to 5 Years) and At-Risk Patients (6 to 64 Years) (1 - PCV) [facility] Start: 2006 Pneumococcal Vaccine : Pediatrics (0 to 5 Years) and At-Risk Patients (6 to 64 Years) (1 of 2 - PCV) Pneumococcal Vaccine: Pediatrics (0 to 5 Years) and At-Risk Patients (6 to 64 Years) (1 of 2 - PCV) [facility] Start: 12-29-2003 Well Child Visit (WC V) - Annual Well Child Visit (WCV) - Annual [facility] Start: 06-29-2001 COVID-19 Vaccine (#1) COVID-19 Vacci ne (#1) [facility] Start: 2000 Hearing Screening (#1) Hearing Scree wilberto (#1) [facility] Start: 2000 HIV screening HIV Screening [facility] Start: 2000 Screening for Chlamy ankita trachomatis Chlamydia and Gonorrhea Screening [facility] Start: 2000 Screening for malign ant neoplasm of cervix Pap Smear [facility] Start: 2000 Yearly Adult Physical Yearly Adult P hysical [facility] End: 06-19-2023 Bacteria identified in Urine by Culture [facility] Work Phone: Comment on above: Once (Lab) for 1 Occ urrences starting 06/19/2023 until 06/19/2023 End: 06-19-2023 Extra Urine [facility] Work Phone: Comment on above: Once [...] rubella virus vaccine Jordyn Thakur Work Phone: [facility] Work Phone: 04-11-2019 varicella virus vaccine Jordyn Thakur Work Phone: [facility] Work Phone: 08-08-2018 meningococcal B vaccine, recombinant, OMV, adjuvanted Jordyn Thakur Work Phone: [facility] Work Phone: 04-17-2018 hepatitis A vaccine, pediatric/adolescent dosage, 2 dose schedule Jordyn Thakur Work Phone: [facility] Work Phone: 04-17-2018 meningococcal B vaccine, recombinant, OMV, adjuvanted Jordyn Thakur Work Phone: [facility] Work Phone: 04-02-2017 hepatitis A vaccine, pediatric/adolescent dosage, 2 dose schedule Jordyn Thakur Work Phone: [facility] Work Phone: 04-02-2017 Human Papillomavirus 9-valent vaccine Jordyn Thakur Work Phone: [facility] Work Phone: 04-02-2017 meningococcal polysaccharide (groups A, C, Y and W-135) diphtheria toxoid conjugate vaccine (MCV4P) Jordyn Jason Thakur Work Phone: [facility] Work Phone: 01-14-2015 HPV, unspecified formulation Jordyn Jason Thakur Work Phone: [facility] Work Phone: 01-14-2015 varicella virus vaccine Jordyn Jason Thakur Work Phone: [facility] Work Phone: 03-31-2014 meningococcal polysaccharide (groups A, C, Y and W-135) diphtheria toxoid conjugate vaccine (MCV4P) Jordyn Jason Thakur Work Phone: [facility] Work Phone: 03-31-2014 tetanus toxoid, redu karina diphtheria toxoid, and acellular pertussis vaccine, adsorbed Jordyn Jason Thakur Work Phone: [facility] Work Phone: 06-18-2009 novel [id number], live virus for nasal administration Jordyn Thakur Work Phone: [facility] Work Phone: 06-18-2009 influenza virus vaccine, unspecified formulation Dominick Lewis MD Work Phone: [facility] Work Phone: 04-12-2007 diphtheria, tetanus toxoids and acellular pertussis vaccine Jordyn Thakur Work Phone: [facility] Work Phone: 04-12-2007 measles, mumps and rubella virus vaccine Jordyn Thakur Work Phone: [facility] Work Phone: 04-12-2007 poliovirus vaccine, inactivated Jordyn Thakur Work Phone: [facility] Work Phone: 05-18-2003 pneumococcal conjuga te vaccine, 7 valent Jordyn Thakur Work Phone: [facility] Work Phone: 08-22-2002 diphtheria, tetanus toxoids and acellular pertussis vaccine, unspecified formulation Jordyn Thakur Work Phone: [facility] Work Phone: 12-23-2001 diphtheria, tetanus toxoids and acellular pertussis vaccine, unspecified formulation Jordyn Thakur Work Phone: [facility] Work Phone: 12-23-2001 haemophilus influenz ae type b vaccine, conjugate unspecified formulation Jordyn Jason Simon Work Phone: [facility] Work Phone: 12-23-2001 hepatitis B vaccine, pediatric or pediatric/adolescent dosage Jordyn Jason Simon Work Phone: [facility] Work Phone: 12-23-2001 measles, mumps and rubella virus vaccine Jordyn Thakur Work Phone: [facility] Work Phone: 12-23-2001 pneumococcal conjuga te vaccine, 7 valent Jordyn Jason Simon Work Phone: [facility] Work Phone: 12-23-2001 poliovirus vaccine, inactivated Jordyn Jason Thakur Work Phone: [facility] Work Phone: 12-23-2001 varicella virus vaccine Jordyn Jason Thakur Work Phone: [facility] Work Phone: 06-12-2001 diphtheria, tetanus toxoids and acellular pertussis vaccine, unspecified formulation Jordyn Gomez Thakur Work Phone: [facility] Work Phone: 06-12-2001 haemophilus influenz ae type b vaccine, conjugate unspecified formulation Jordyn Gonzalezley Work Phone: [facility] Work Phone: 06-12-2001 hepatitis B vaccine, pediatric or pediatric/adolescent dosage Jordyn Thakur Work Phone: [facility] Work Phone: 06-12-2001 poliovirus vaccine, inactivated Jordyn Jason Thakur Work Phone: [facility] Work Phone: 03-28-2001 diphtheria, tetanus toxoids and acellular pertussis vaccine, unspecified formulation Jordyn Jason Simon Work Phone: [facility] Work Phone: 03-28-2001 haemophilus influenz ae type b vaccine, conjugate unspecified formulation Jordyn Jason Thakur Work Phone: [facility] Work Phone: 03-28-2001 hepatitis B vaccine, pediatric or pediatric/adolescent dosage Jordyn Jason Thakur Work Phone: [facility] Work Phone: 03-28-2001 pneumococcal conjuga te vaccine, 7 valent Jordyn Jason Thakur Work Phone: [facility] Work Phone: 03-28-2001 poliovirus vaccine, inactivated Jordyn Jason Thakur Work Phone: [facility] Work Phone: NEGATED: Highlighted row has not occurred!06-25-2024 measles, mumps and rubella virus vaccine Leatha Samayoa MD Work Phone: [facility] [employer] Comment on above: Deferred: No longer needed NEGATED: Highlighted row has not occurred!06-24-2024 influenza, injectable, madin karan canine kidney, preservative free Leatha Samayoa MD Work Phone: [facility] [employer] Comment on above: Deferred: Patient Re fused NEGATED: Highlighted row has not occurred!06-24-2024 tetanus toxoid, reduced diphtheria toxoid, and acellular pertussis vaccine, adsorbed Leatha Samayoa MD Work Phone: [facility] [employer] Comment on above: Deferred: Patient Re fused NEGATED: Highlighted row has not occurred!06-23-2024 influenza, injectable, madin karan canine kidney, preservative free Leatha Samayoa MD Work Phone: [facility] [employer] Comment on above: Deferred: Patient Re fused Payers Date Payer Category Payer Medicaid HMO [facility] MEDICAID ODM [id number] 2022 Private Health Insurance [id number] 2020 Medicaid [facility] MEDICA[facility] COMMUNITY PLAN [id number] 2020-Present [phone] [address] [place] [address] [id number] 2019 Medicaid [id number] 2019 Medicaid [id number] 2018 Unknown 2000 Unknown [id number] 2.16.840.1.737187.3.579.2. 651 2000 Unknown [id number] 2.16.840.1.145979.3.579.2. 903 2000 Unknown [id number] 2.16.840.1.943111.3.579.2. 903 2000 Unknown [id number] 2.16.840.1.884278.3.579.2. 903 2000 Unknown [id number] 2.16.840.1.393775.3.579.2. 903 2000 Unknown [id number] 2.16.840.1.567454.3.579.2. 903 2000 Unknown [id number] 2.16.840.1.958195.3.579.2. 2000 Unknown [id number] 2.16840.1.951677.3.579.2. 902 2000 Unknown [id number] 2.16840.1.813590.3.579.2. 2000 Unknown [id number] 2.16840.1.828044.3.579.2. 2 2000 Unknown [id number] 2.16840.1.794275.3.579.2. 356 2000 Unknown [id number] 2.16840.1.487273.3.579.2. 356 2000 Unknown [id number] 2.16840.1.214840.3.579.2. 356 2000 Unknown [id number] 2.16840.1.579015.3.579.2. 356 2000 Unknown [id number] 2.16840.1.601998.3.579.2. 356 2000 Unknown [id number] 2.16840.1.692725.3.579.2. 356 2000 Unknown [id number] 2.16840.1.459396.3.579.2. 1068 2000 Unknown [id number] 2.16840.1.810594.3.579.2. 1068 2000 Unknown [id number] 2.16840.1.931222.3.579.2. 1068 2000 Unknown [id number] 2.16840.1.894073.3.579.2. 1069 2000 Unknown [id number] 2.16.840.1.536850.3.579.2. 1244 2000 Unknown [id number] 2.16.840.1.758129.3.579.2. 1242 2000 Unknown [id number] 2.16.840.1.095824.3.579.2. 2000 Unknown [id number] 2.16.840.1.054519.3.579.2. 2000 Unknown [id number] 2.16.840.1.051208.3.579.2. 2000 Unknown [id number] 2.16.840.1.188170.3.579.2. 1243 2000 Unknown [id number] 2.16840.1.290505.3.579.2. 1243 2000 Unknown [id number] 2.16.840.1.397766.3.579.2. 1243 2000 Unknown [id number] 2.16840.1.187473.3.579.2. 1243 2000 Unknown [id number] 2.16.840.1.237627.3.579.2. 1243 2000 Unknown [id number] 2.16840.1.200513.3.579.2. 1243 2000 Unknown [id number] 2.16.840.1.306157.3.579.2. 1243 2000 Unknown [id number] 2.16.840.1.302652.3.579.2. 2000 Unknown [id number] 2.16.840.1.483831.3.579.2. 2000 Unknown [id number] 2.16.840.1.150900.3.579.2. 2000 Unknown [id number] 2.16.840.1.196574.3.579.2. 727 2000 Unknown [id number] 2.16.840.1.024302.3.579.2. 727 2000 Unknown [id number] 2.16.840.1.545947.3.579.2. 727 2000 Unknown [id number] 2.16.840.1.045559.3.579.2. 727 2000 Unknown [id number] 2.16.840.1.166747.3.579.2. 727 2000 Unknown [id number] 2.16.840.1.466310.3.579.2. 727 1983 Unknown [id number] 2.16.840.1.962186.3.579.2. 717 1983 Unknown [id number] 2.16.840.1.596393.3.579.2. 717 1983 Unknown [id number] 2.16.840.1.203407.3.579.2. 717 Self-pay [id number] Unknown [id number] Social History Date Type Detail Facility [facility] Tobacco smoking consumption unknown [facility] Start: 10-03-2022 End: 06-22-2024 Nicotine dependence due to vaping tobacco product Nicotine dependence due to vaping tobacco product [facility] Work Phone: Start: 2000 Sex Assigned At Not on file [facility] Start: 04-15-2022 End: 08-21-2023 Exposure to SARS-CoV-2 (event) Not sure [facility] Start: 10-03-2022 End: 06-22-2024 Tobacco smoking status NHIS Never smoked tobacco [facility] Work Phone: Start: 10-03-2022 End: 05-06-2024 Tobacco use and exposure Smokeless tobacco non-user [facility] Work Phone: Start: 10-03-2022 End: 03-31-2023 Alcohol intake Current drinker of alcohol (finding) [facility] Work Phone: Start: 10-03-2022 End: 06-22-2024 Tobacco use panel [facility] Work Phone: Start: 04-23-2023 Alcohol Comment RARE [facility] Work Phone: Start: 01-19-2021 Tobacco smoking status NHIS Smokes tobacco daily [facility] Start: 01-19-2021 End: 08-14-2023 History of tobacco use Cigarette Smoker [facility] Work Phone: History of tobacco use Pipe Smoker [facility] Work Phone: Start: 08-21-2023 End: 06-23-2024 Alcohol intake Ex-drinker (finding) [facility] Work Phone: Start: 08-21-2023 Tobacco Comment I vape. [facility] Work Phone: Start: 08-21-2023 Alcohol Comment I drink once every few momths [facility] Work Phone: Start: 09-09-2023 End: 05-06-2024 Exposure to SARS-CoV-2 (event) Unable to assess [facility] Work Phone: Tobacco smoking status No Smokin g Status Entered [facility] Start: 05-06-2024 Tobacco smoking status NHIS Ex-smoker [facility] Start: 01-19-2021 End: 08-14-2023 History of tobacco use Current smoker [facility] Work Phone: Tobacco Former vaping or e-cigarette use Smokeless Tobacco Use:. [facility] Start: 06-22-2024 Tobacco use and exposure Former smokeless tobacco user [employer] Has the [employer], or [employer] threatened to shut off services in your home in past 12Mo No Hyphen 8 (I/We) worried wheth er (my/our) food would run out before (I/we) got money to buy more. Never true [employer] 8 In the past 12 month s, has lack of transportation kept you from medical appointments or from getting medications? No [facility] Start: 06-22-2024 Sex Female (finding) [facility] Functional Status Date Assessment Result Facility 06-22-2024 Functional Status N/A [facility] 06-21-2024 Functional Status N/A [facility] 06-03-2024 Functional Status N/A [facility] Functional observable [facility] Mental Status Date Assessment Result Facility 04-11-2023 Cognitive functions 0239:[id number] [facility] Clinical Notes 03-03-2021 to 06-25-2024 Note - Jyoti Navarro, RN - 06/25/2024 12:00 PM ESTLactation Note - VICKI Peña - 06/24/2024 11:37 AM ESTCare Coordination - Amaya Gupta RN - 06/24/2024 5:25 AM EST<item> Note Date & Type Note Facility 06-25-2024 Miscellaneous Notes In to follow up with NICU mom. Mom is pumping every 3 hours for 40-50cc EDITA. Mom has Spectra pump for home. Discharge today. Baby is in the NICU. Pt was very happy that she was able to pump 2 syringes without difficulty. Enc given. Pt has a new spectra pump in her room for home and would like to know how to use it. Baby was born at 29 wk 5 days. Reviewed pump settings and regimen. Pt feels the flanges are working for her and she was assessed in NICU. Questions answered about edita storage, chart reviewed and shown to pt. Pt shown how to use her spectra pump, enc to also view their videos and ask questions as needed. Enc to sterilize parts prior to first use. Reviewed pumping regimen, establishing a milk supply and importance of breast stimulation. Questions answered about her new spectra pump. Informed of availability in the hospital and bf mother's groups after dc. Verbalizes understanding. Date: 06/24/2024 Name: Luz Hinojosa : 2000 [facility] Patient Information Primary Caregiver: Self Accompanied by/Relationship: S/O;Family Marital Status: Support System: SO/Family Sabianist/Cultural Factors: none Activities of Daily Living Communication: See demographics Living Arrangements Current Residence: Private residence Lives With: S/O; Family Support System: S/O; Family Income Information Income Source: Lives with , Not Employed Financial Resource Strain How hard is it for you to pay for the very basics like food, housing, medical care and heating? N/A Housing Stability In the last 12 months, was there a time when you did not have a steady place to sleep or slept in a usp (including now)? No Transportation Needs Has the lack of Transportation kept you from medical appointments? No In the past 12 months, has the lack of transportation kept you from meetings, work, or from getting things needed for daily living? No Food Insecurity Within the past 12 months, have you worried that your food would run out before you got the money to buy more? No Stress Do you feel stress - tense, restless, nervous, or anxious, or unable to sleep at night because you mind is troubled all the time? Mood stable Referral To Financial Resources: N/A Community Resources: Admission folder given upon admission to PP Unit Social Work: N/A CLP: N/A Medical Information Transport at 29/4 weeks. 1 Para 0. Vaginal delivery. Infant in NICU Consults MFM and NICU. labor Discharge Plan Home or Community Resources: Admission folder given upon admission to PP unit Equipment: N/A Education Given: Discussion on the A. B. C's of safe sleep. Always place your baby on his or her back to sleep, use a firm sleep surface and your baby should not sleep in an adult bed, on a couch or chair. Keep soft objects, toys and loose bedding out of your baby's sleep area. Reviewed depression. It is common to have blues. This is a normal response to many of the hormonal changes, stress and lack of sleep that go with raising a and physically recovering from the . Don't hesitate to talk to your provider with any concerns. There are resources in your home going booklet. To help prevent germs from spreading to you and your baby, make sure everyone washes their hands before they handle your . Avoid crowds, and keep infant away from sick people, anyone who is sick with a cough or fever, including family members. Post- warning signs information reviewed with patient per nurse with discharge Additional Information: Patient is independent and has insurance. She is prepared with her baby supplies. To be discharged to home. Denies any concerns at this time. Mental Health Services: Resources in discharge folder Equipment: Developmental Delay: N/A Children's Services: N/A Images from the original note were not included. Vaginal Delivery Note Department of Obstetrics and Gynecology Patient: Luz Hinojosa : 2000 Date of delivery: 06/23/2024 Pre-operative Diagnosis: Luz Hinojosa at 29w5d 1. labor 2. Anxiety Post-operative Diagnosis: Live Born male Delivering Beauty Specialist & Real Estate Firm Manager(s): Dr. Ponce; Dr. Adams Information: Information for the patient's : Onesimo Hinojosa [[id number]] Information for the patient's : Onesimo Hinojosa [[id number]] Description: normal Meconium Noted: No Anesthesia: epidural anesthesia Complications: None Application and Delivery: Luz Hinojosa at 29w5d admitted for threatened labor as a transfer from [place]. She progressed with cervical dilation despite tocolysis. She was moved to OR for delivery at 10 cm dilation and AROM was preformed. She pushed for 10 minutes prior to delivery. She was known to be GBS unknown and received Penicillin G prophylaxis. After pushing with contractions the head delivered Cephalic, right occiput anterior over an intact perineum. A nuchal cord was not present. The anterior, then posterior shoulder delivered easily and atraumatically followed by the rest of the infant. The was placed on the maternal abdomen and attended by the RN for evaluation. The was stimulated and dried. The cord was clamped and cut. The delivery of the placenta was spontaneous and appeared intact. Pitocin was started. The vagina was swept of all clots and debris. The perineum and vagina were evaluated. No lacerations were found.. All counts were correct. Mother and baby tolerated procedure well. No uterotonics were required during delivery. EBL: 50ml QBL: Quantitative Blood Loss (mL): 50 mL VTE Prophylaxis: Not Indicated LABOR DELIVERY ??? SCD's ONLY (labor through ambulation) SCD's PLUS Prophylactic Anticoagulation until discharge SCD's PLUS Prophylactic Anticoagulation for 6 weeks SCD's PLUS Therapeutic Anticoagulation for 6 weeks Vaginal Delivery [] BMI >= 40 kg/m2 Delivery All patients Vaginal Delivery [] BMI >= 40 kg/m2 AND [] Antepartum hospitalization >= 72 hours within the past month Delivery 1 Major Risk Factor: [] BMI >= 35 kg/m2 [] Low Risk Thrombophilia [] PPH+RBCs, IR, or operation [] Infection+Antibiotics [] Antepartum hospitalization >= 72 hours within the past month [] PMH: Sickle Cell, SLE, Cardiac Dz, Active IBD, Active Cancer, Nephrotic Syndrome OR 2 Minor Risk Factors: [] Multiple gestation [] Age > 40 [] PPH >= 1,000cc [] (+)FMH of VTE [] Smoker [] Preeclampsia [] BMI >= 40 kg/m2 AND [] Low Risk Thrombophilia OR ANY OF THE FOLLOWING: [] High Risk Thrombophilia without prior VTE [] Low Risk Thrombophilia with (+)FMH of VTE [] Any single prior VTE ANY OF THE FOLLOWING: [] Already on LMWH/UFH [] Multiple prior VTE [] High Risk Thrombophilia with prior VTE Low Risk Thrombophilia: FVL (heterozygous), Prothrombin (heterozygous), Protein C, Protein S High Risk Thrombophilia: FVL (homozygous), Prothrombin (homozygous), FVL+Prothrombin (heterozygous), Antithrombin III, APLS Delivery Summary: Specimen: Cord blood and Cord gases Blood Type and Rh: A Rubella Immunity Status: No results found for: RUBELLAIGGQT Malu Adams MD 06/23/2024, 9:34 PM OB Delivery Note 06/23/2024 Luz Ashish 23 y.o. Gestational Age: 29w5d /Para: Estimated Blood Loss: Delivery Blood Loss Intrapartum & : 06/23/24 0749 - 06/23/242132 Delivery Admission: 06/22/24 1832 - 06/23/242132 Intrapartum & Delivery Admission Quantitative Blood Loss (mL) Hospital Encounter 50 mL 50 mL Total 50 mL 50 mL Quantitative Blood Loss: 50 mL Onesimo Hinojosa [[id number]] Labor Events labor?: Yes steroids: Full Course Antibiotics received during labor?: Yes Rupture of Membranes Rupture date/time: 06/23/241937 ReadOnly Edit in Flowsheets Rupture type: Artificial Fluid color: Clear Fluid odor: None Labor Details Prior : No Labor type: Spontaneous Onset of Labor First cervical ripening date/time: Induction date/time: Augmentation date/time: Labor complications: None Anesthesia Method: Epidural Labor Event Times Labor onset date/time: Dilation complete date/time: 06/23/241909 EST Start pushing date/time: Decision date/time () Delivery () Delivery date/time: 06/23/24 19:49:00 Delivery type: Vaginal, Spontaneous Details: Delivery Complications: None Presentation Presentation: Vertex Position: Right Occiput Anterior Shoulder Dystocia Shoulder dystocia present: No Gita maneuver: Suprapubic pressure: Episotomy: Culp maneuver: Masters screw maneuver: Devyn maneuver: Delivery of posterior arm: clavicular fracture: Zavanelli maneuver: Delivery Details Forceps attempted?: No Vacuum extractor attempted?: No Forceps Details: Vacuum Details: Cord Vessels: 3 vessels Complications: None Delayed cord clamping?: Yes Placenta Date/time: 06/23/2024 7:57 PM Removal: Spontaneous Appearance: Intact Comment: to NICU Delivery (Maternal) Episiotomy: None Perineal lacerations: None Other lacerations: no non-perineal laceration Repair suture: None Vaginal Counts 4x4 [place] Instruments Lap Pads Sponges Initial counts Interim counts Final counts 17 2 Final count personnel: FLORES Final count verified by: [place] Accurate final count?: Yes Blood Loss Mother: Luz Hinojosa #[id number] Start of Mother's Information Delivery Blood Loss Intrapartum & : 06/23/24 0749 - 06/23/242132 Delivery Admission: 06/22/24 1832 - 06/23/242132 Intrapartum & Delivery Admission Quantitative Blood Loss (mL) Hospital Encounter 50 mL 50 mL Total 50 mL 50 mL End of Mother's Information Mother: Luz Hinojosa #[id number] Delivery Providers Delivering clinician: Jenny Ponce MD Provider Role Consulting Physician Malu Adams MD Delivery Assist Judie Ochoa RN Delivery Nurse Moriah Oreilly, RN Nurse Trudi Argueta, CNA INSTRUCTOR - FACETER Nurse Practitioner Luci Ramachandran RN NICU Nurse Shavonne Meade RCP Respiratory Therapist Nurse Fitting Supervisor Scrub Nurse Fab Alexis RN NICU Nurse Emily Teresa MD Assessment Living status: Living Scoring Ward: 0 1 2 Skin color Blue or pale Acrocyanotic Completely pink Heart rate Absent <100 bpm >100 bpm Reflex irritability No response Grimace Cry or active withdrawal Muscle tone Limp Some flexion Active motion Respiratory effort Absent Weak cry; hypoventilation Good, crying 1 Minute: Total: 1 total from OB History 5 Minute: 5 total from OB History 10 Minute: 15 Minute: 20 Minute: Apgars assigned by: NICU Measurements Weight: 1335 g Weight (lbs): 2 lb 15.1 oz Length: Skin to Skin Reason skin to skin not initiated: [place] Acuity [place] Disposition [place] Handoff Immediately at : To warmer with NICU staff: Yes Malu Adams MD Cosigned by Jenny Ponce MD at 06/25/2024 10:09 AM EST Associated attestation - Jenny Ponce MD - 06/25/2024 10:09 AM EST Procedures or Surgery: I was present for all ward elements of the procedure or surgery as described in the resident note. Problem: Antepartum Goal: Maintain as long as maternal and/or condition is stable 06/23/20242101 by Judie Ochoa RN Outcome: Completed 06/23/20242035 by Judie Ochoa RN Outcome: Progressing Following SVE performed by Dr. Tejada where patient made change from 280/-3 to 590/-2 with bulging bag, confirmed vertex positioning on BSUS. Magnesium sulfate restarted at this time. PCN running, patient has now received one dose of rescue steriods. Will discontinue tocolytics per Dr. Roca's recommendations. Dr. Ponce and Dr. Roca both updated and aware. Plan to move patient to labor floor and patient may request epidural. FLAT KNITTER updated and aware. Date: 06/23/2024 Name: Luz Hinojosa : 2000 [facility] Patient Information Primary Caregiver: Self Accompanied by/Relationship: S/O;Family Marital Status: Single Support System: SO/Family Sabianist/Cultural Factors: none Activities of Daily Living Communication: See demographics Living Arrangements Current Residence: Private residence Lives With: S/O; Family Support System: S/O; Family Income Information Income Source: Not Employed Financial Resource Strain How hard is it for you to pay for the very basics like food, housing, medical care and heating? N/A Housing Stability In the last 12 months, was there a time when you did not have a steady place to sleep or slept in a usp (including now)? No Transportation Needs Has the lack of Transportation kept you from medical appointments? No In the past 12 months, has the lack of transportation kept you from meetings, work, or from getting things needed for daily living? No Food Insecurity Within the past 12 months, have you worried that your food would run out before you got the money to buy more? No Stress Do you feel stress - tense, restless, nervous, or anxious, or unable to sleep at night because you mind is troubled all the time? Mood stable Referral To Financial Resources: N/A Community Resources: PNU folder given upon admission to PNU Unit Social Work: N/A CLP: N/A Medical Information 23 year old admitted for contractions at 29/4 weeks. 1 Para 0. Hx of anxiety. NICU consult Transport Discharge Plan Home or Community Resources: PNU Admission folder given upon admission to unit Equipment: N/A Education Given: PNU admit folder and see Education Tab Additional Information: N/A Mental Health Services: N/A Developmental Delay: N/A Children's Services: N/A Problem: Antepartum Goal: Maintain as long as maternal and/or condition is stable Outcome: Progressing Flowsheets (Taken 06/22/20240) Maintain as long as maternal and/or condition is stable: Maternal surveillance grit blaster uterine activity Medications as ordered Problem: Pain - Adult Goal: Verbalizes/displays adequate comfort level or baseline comfort level Outcome: Progressing Problem: Infection - Adult Goal: Absence of infection during hospitalization Outcome: Progressing Flowsheets (Taken 06/22/20240) Absence of infection during hospitalization: Assess and monitor for signs and symptoms of infection Monitor lab/diagnostic results Monitor all insertion sites i.e., indwelling lines, tubes and drains Administer medications as ordered Instruct and encourage patient and family to use good hand hygiene technique Problem: Safety - Adult Goal: Free from fall injury Outcome: Progressing Flowsheets (Taken 06/22/2024 2252) Free from fall injury: Instruct family/caregiver on patient safety documented in this encounter [facility] 06-25-2024 Obstetrics Note In to follow up with NICU mom. Mom is pumping every 3 hours for 40-50cc EDITA. Mom has Spectra pump for home. Discharge today. [facility] 06-25-2024 Note Department of Obstet rics and Gynecology Delivery Discharge Summary Admission on 06/22/2024 6:32 PM Hospital course: Luz Hinojosa is a 23 y.o. at 29w4d who presented to Labor and Delivery for threatened labor as a trasnfer from [facility]. She was noted to be 2/50/-3 at outside facility and 2/80/-3 on arrival. She previously received BMZ on 06/03-06/04 and was given rescue BMZ on 06/22. She was maintained on Penicillen for GBS prophylaxis and Magnesium sulfate for neuroprotections. NICU consultation was completed. She progressed to 10cm dilation despite tocolysis and AROM was performed. at 29w5d. course & complications: - Uncomplicated Surgical Operations & Procedures: Date of delivery: 06/23/24 Procedure: Vaginal: Spontaneous Anesthesia: Epidural anesthesia Laceration(s): None Delivery Complications: none EBL: 50 mL Pertinent Findings & Procedures: Information for the patient's : Onesimo Hinojosa [[id number]] male 1335 g (2 lb 15.1 oz) Apgars: Information for the patient's : Onesimo Hinojosa [[id number]] : Infant: Boy, in NICU Blood Type/Rh: A Antibody Screen: No results found for: LABANTI Rubella: No results found for: RUBELLAIGG Contraception: oral progesterone-only contraceptive : VTE Prophylaxis: Not Indicated Meds at Discharge: Medication List START taking these medications DSS 100 MG capsule Take 1 capsule (100 mg) by mouth 2 times daily as needed for constipation (Vaginal Delivery). ibuprofen 600 MG tablet Take 1 tablet (600 mg) by mouth every 6 hours as needed for mild pain (1-3) for up to 10 days. norethindrone 0.35 MG tablet Commonly known as: Aileen Take 1 tablet (0.35 mg) by mouth daily. Take at the same time each day. Start at 3 weeks . CONTINUE taking these medications 1 PO Where to Get Your Medications These medications were sent to [facility] [address] [place] [address] Hours: Sunday to Ian 10 am to 6 pm DSS 100 MG capsule ibuprofen 600 MG tablet norethindrone 0.35 MG tablet Activity: Activity as tolerated Diet: Regular diet Follow-up Appointments: - visit If a patient meets criteria for hypertension, make sure the following are done prior to discharge: [] Order a blood pressure kit through [facility] (or the patient's own pharmacy on the weekend) [] Order the blood pressure log through [facility] [] Place an office visit or telephone encounter for a 3-to-5-day blood pressure check. [] Include blood pressure dot phrase (.sumobhypertension) in discharge instructions [x] Check here if the patient does NOT meet criteria for hypertension Condition on discharge: Stable Discharge to: Home Discharge date: 06/25/24 Discharge Dx: S/p PTD at 29w5d Hx PTD Anxiety contractions [O47.00] Patient Active Problem List Diagnosis contractions Comments: Home care, Follow-up care and control were reviewed. Signs and symptoms of mastitis and Depression were reviewed. The patient is to notify her physician if any of these occur. [facility] 06-25-2024 Hospital course Narrative Images from the original note were not included. Department of Obstetrics and Gynecology Delivery Discharge Summary Admission on 06/22/2024 6:32 PM Hospital course: Luz Hinojosa is a 23 y.o. at 29w4d who presented to Labor and Delivery for threatened labor as a trasnfer from [facility]. She was noted to be 2/50/-3 at outside facility and 2/80/-3 on arrival. She previously received BMZ on 06/03-06/04 and was given rescue BMZ on 06/22. She was maintained on Penicillen for GBS prophylaxis and Magnesium sulfate for neuroprotections. NICU consultation was completed. She progressed to 10cm dilation despite tocolysis and AROM was performed. at 29w5d. course & complications: - Uncomplicated Surgical Operations & Procedures: Date of delivery: 06/23/24 Procedure: Vaginal: Spontaneous Anesthesia: Epidural anesthesia Laceration(s): None Delivery Complications: none EBL: 50 mL Pertinent Findings & Procedures: Information for the patient's : Onesimo Hinojosa [[id number]] male 1335 g (2 lb 15.1 oz) Apgars: Information for the patient's : Onesimo Hinojosa [[id number]] : : Boy, in NICU Blood Type/Rh: A Antibody Screen: No results found for: LABANTI Rubella: No results found for: RUBELLAIGG Contraception: oral progesterone-only contraceptive : VTE Prophylaxis: Not Indicated Meds at Discharge: Medication List START taking these medications DSS 100 MG capsule Take 1 capsule (100 mg) by mouth 2 times daily as needed for constipation (Vaginal Delivery). ibuprofen 600 MG tablet Take 1 tablet (600 mg) by mouth every 6 hours as needed for mild pain (1-3) for up to 10 days. norethindrone 0.35 MG tablet Commonly known as: Aileen Take 1 tablet (0.35 mg) by mouth daily. Take at the same time each day. Start at 3 weeks . CONTINUE taking these medications 1 PO Where to Get Your Medications These medications were sent to [facility] [address] [place] [address] Hours: Sunday to Sunday 10 am to 6 pm DSS 100 MG capsule ibuprofen 600 MG tablet norethindrone 0.35 MG tablet Activity: Activity as tolerated Diet: Regular diet Follow-up Appointments: - visit If a patient meets criteria for hypertension, make sure the following are done prior to discharge: [] Order a blood pressure kit through [facility] (or the patient's own pharmacy on the weekend) [] Order the blood pressure log through [facility] [] Place an office visit or telephone encounter for a 3-to-5-day blood pressure check. [] Include blood pressure dot phrase (.sumobhypertension) in discharge instructions [x] Check here if the patient does NOT meet criteria for hypertension Condition on discharge: Stable Discharge to: Home Discharge date: 06/25/24 Discharge Dx: S/p PTD at 29w5d Hx PTD Anxiety contractions [O47.00] Patient Active Problem List Diagnosis contractions Comments: Home care, Follow-up care and control were reviewed. Signs and symptoms of mastitis and Depression were reviewed. The patient is to notify her physician if any of these occur. documented in this encounter [facility] 06-25-2024 Hospital Discharge instructions Jenny Ponce MD - 06/25/2024 10:06 AM EST Images from the original note were not included. Thank you for allowing us to care of you at [facility]. This time can be one of many emotional ups and downs and many changes in your life. In these first weeks try to take good care of yourself because you will likely feel very tired. It may take 4 to 6 weeks to feel like yourself again, and possibly longer if you had a . FOLLOW-UP: Your follow-up care is a ward part of your treatment and safety. Follow-up with your OB providerin 4 weeks or as specified by your OB provider. If you had high blood pressure, visit your OB provider within 3-5 days after being home. Most women's blood pressure will return to pre- levels after delivery. However, some patients continue to have problems with their blood pressure, and some even get worse. Very high blood pressure can lead to seizures or stroke which can be life threatening. If ordered by your provider, take your blood pressure at home and call your OB provider if you have a high reading. Your OB provider can write you a prescription for a blood pressure monitor if you do not have one. Be sure to make and go to all appointments, and call your OB provider if you are having problems. It's also a good idea to know your test results and keep a list of the medicines you take. BLEEDING Vaginal bleeding will decrease in amount over the next few weeks. Bleeding may chicken picker and then decrease again around 7-10 days . Use pads instead of tampons for the bloody flow that may last as long as 2 weeks. You will notice that as your activity increases, your flow may increase. Call your provider if you are saturating one maxi pad in an hour & passing large clots for 3 hours or more. ACTIVITY NO SEXUAL activity for 6 weeks or until advised by your OB provider; Nothing in vagina: intercourse, tampons, or douching. Begin to think about your reproductive life plan. Talk to your OB provider about if and when you would like to get in the future. The recommendation for safe spacing is 18-24 months. Showering is okay; NO tub baths, swimming, or hot tubs. Gradually increase your activity. Resume exercise regimen only after advised by your )OB provider. Avoid lifting anything heavier than ten pounds or a gallon of milk for six weeks. Avoid driving 1 week for vaginal delivery and 2 weeks for section, or longer if you are on prescription pain medicine unless otherwise instructed by your OB provider. Rise slowly from a lying to sitting and then a standing position. Climb stairs carefully. You may feel tired or have a lack of energy. You may continue your vitamin to replenish nutrients post-delivery. Nap when whenever you can to catch up on sleep. EMOTIONS You may feel brady, sad, teary, & overwhelmed for the first 2 weeks ; however, feelings of depression may occur any time within the first year after delivery. Contact your OB provider if you feel you may be showing signs of depression, or have thoughts of harming yourself or or anyone.. WOUND CARE For Vaginal Delivery: Shower daily, and cleanse your perineum (bottom) with mild soap from front to back. Use the plastic squirt bottle until bleeding stops each time you use the restroom instead of wiping with toilet paper. Ease soreness of hemorrhoids and the area between your vagina and rectum with ice compresses or witch blanco pads. If used, stitches will dissolve in 4-6 weeks on their own. You may use a sitz bath or soak in a clean tub with drain open and water running for comfort. Kegel exercises will help restore bladder control. To do these tighten your muscles as if you were stopping your urine flow. Hold for a few seconds and then relax. Do these throughout the day. For Section Delivery: Keep your incision clean and dry. If you had steri-strips you may remove these once they start falling off. If you have rosa they need to be removed 3-10 daysafter delivery. If you have steri-strips, remove after 7 - 10 days. Do not wear clothing that irritates the incision line. If your incision is in a crease that is not dry, use a hair-dryer to dry the area 3 times a day. If you develop fever, shaking chills, redness, swelling, drainage or discharge from your wound, or if your wound looks like it is coming apart call your provider immediately. BREAST CARE If you develop a warm, red, tender area on your breast or develop a fever contact your OB provider. If your breasts become engorged ask your provider because treatment can vary according to your needs. DIET & CONSTIPATION Eat a well-balanced diet focusing on foods high in fiber and protein such as: whole grain cereals and breads, fruits and vegetables and legumes (eg, beans, lentils) Drink 8-10 glasses of fluids daily, especially water. Limit caffeine. To avoid constipation you may take a mild [id number] stool softener (such as colace) as recommended by your OB provider. SWELLING Try to keep your legs elevated when you are sitting or lying down. Stay hydrated and take walks. If you had high blood pressure, weigh yourself at the same time each day. Write down your weight and take the record to your OB provider appointment. MEDICATIONS Take all medications prescribed for you exactly as ordered. Don't take any drugs not prescribed to you or over the counter medicines unless recommended by your provider. Don't smoke. WHEN TO CALL THE OB PROVIDER Signs of infection, including fever and chills Increased bleeding: soaking more than one pad an hour or passing clots the size of an egg or larger. Wounds that become red, swollen or drain pus Vaginal discharge that smells foul New pain, swelling, or tenderness in your legs Pain that you can't control with the medications you've been given Pain, burning, urgency or frequency of urination, or persistent bleeding in the urine Cough, shortness of breath, or serious difficulty catching your breath Chest pain or pain in the upper right area of your belly Headache (very painful) or vision changes like blurry or double vision, seeing spots or 'auras' Swelling that is worse or weight gain of more than 3 pounds in 3 days Depression, suicidal thoughts, or feelings of harming someone else Breasts that are hot, red and accompanied by fever Any cracking or bleeding from the nipple or areola (the dark-colored area of the breast) SAVE YOUR LIFE: Get Care for these POST- Warning Signs: Call 911 if you have: Pain in chest Obstructed breathing or shortness of breath Seizures Thoughts of hurting yourself or your baby Call your healthcare provider if you have: (if you can't reach your healthcare provider, call 911 or go to an emergency room) Bleeding, soaking through one pad/hour, or blood clots the size of an egg or bigger Incision that is not healing Red or swollen leg, that is painful or warm to touch Temperature of 100.4 F or higher Headache that does not get better, even after taking medicine, or bad headache with vision changes. Contact your healthcare provider and tell them: I delivered on 06/23/2024 and I am having ____(specific warning signs) In case of an emergency, call 911 immediately. documented in this encounter [facility] 06-25-2024 Note Discharge Summary SHORT-STAY/TRANSFER NOTE DATE OF ADMISSION: 06/22/2024 DATE OF DISCHARGE: 06/22/2024 ADMITTING DIAGNOSIS: Intrauterine at 29 weeks and 07/29, labor. HISTORY: The patient is a 23-year-old 1, para 0, AB 0 white female who presented to Labor and Delivery at 29 weeks' gestation complaining of runny mucous discharge and some bloody show. She was having irregular contractions, although when placed on the monitor her contractions were every three to four minutes. Her cervix was evaluated and found to be further dilated than a recent check 24 hours previous to admission found to be a tight 2 cm dilatation with 50% effacement which was changed in effacement and almost a centimeter further dilated, vertex presentation, bag of water intact. Of note, she had been admitted on 06/03/2024 for labor and what was felt to be a probable urinary tract infection at the time and had undergone hydration and tocolysis and received two doses of betamethasone at that point, one on the and one on the 04 of June. At that time she was found to be 1 cm dilatation. Now she is found to be 2 cm dilatation. Her is the product of ovulation induction, otherwise relatively uncomplicated. She did have a Glucola screen that was positive, although her 3-hour glucose tolerance test was negative, with A+ blood type. Her blood screen was negative for toxicology. Her urinalysis was basically negative today. Her abruption studies were negative, and despite hydration, antibiotics, tocolytic agents, she continued to have some contractions. PAST MEDICAL HISTORY: Allergies: Paxil and clonidine. Medications: Vitamins. Illnesses: History of decreased mood. Surgeries: Albin teeth pulled in 2017. FAMILY HISTORY: Noncontributory. SOCIAL HISTORY: Quit a vaping habit in the first trimester, negative for EtOH. PHYSICAL EXAMINATION: General: Well-developed, well-nourished white female in no acute distress. Vital Signs: Afebrile, 36.8, pulse 90, respirations 18, blood pressure 101/59. Head and E.E.N.T.: Normocephalic. Extraocular muscles intact. Pupils equal and responsive to light and accommodation. Nose and throat clear. Neck: Without mass, without thyromegaly. Lungs: Clear to auscultation and percussion. Heart: Regular rate and rhythm. Abdomen: Soft. Irregular contractions. Reactive nonstress test. Extremities: Negative for clubbing, cyanosis, edema. Pelvic: Cervix 60% and 2 cm dilatation, negative 2 station, vertex. IMPRESSION: A 23-year-old 1, para 0, AB 0 white female. Ultrasound was performed which revealed an intrauterine size consistent with dates. Placenta looked normal, fluid volume 10.9 cc. Head low to cervix. The patient has already received betamethasone on 06/03/2024 and 06/04/2024. The patient has been on hydration and antibiotics and presents today with further dilatation from her previous exam, and now with continued irregular contractions despite tocolysis, it was elected to transfer the patient to tertiary care. We discussed this plan of management with the patient, who understands. Anika Bob M.D. ca Dictated: 06/22/2024 [id number] Transcribed: 06/22/2024 [facility] Comment on above: Result Comment: Elec tronically Signed By: Paulino CORRIGAN, Anika Gmoez\.br\Date and Time Signed: 06/25/24 06:47 EST 06-25-2024 Note Discharge Summary DATE OF DISCHARGE: 06/05/2024 DISCHARGE DIAGNOSIS: Status post labor at 27 weeks' gestation, probable urinary tract infection, status post intravenous antibiotics, status post betamethasone. The patient is a 23-year-old 1, para 0, AB 0 white female who presented to Labor and Delivery. Her had been complicated by use of ovulation induction to achieve . She was found to have contractions and cervical dilatation with a 500 leukocyte esterase, 3+ bacteria. Her cervix was found to be a tight 1 cm, 25% effaced, negative 2 station, vertex, and she was administered betamethasone, given intravenous hydration, given Ancef parenterally, and did well. She was discharged with oral Keflex to return to my office in the next two days and proceed from there. Anika Bob M.D. ca Dictated: 06/20/2024 [id number] Transcribed: 06/22/2024 [facility] Comment on above: Result Comment: Elec tronically Signed By: Paulino CORRIGAN, Anika Gomez\.br\Date and Time Signed: 06/25/24 06:46 EST 06-25-2024 History of Present illness Narrative Images from the original note were not included. VAGINAL DELIVERY POST DAY # 2 Luz Hinojosa, 23 y.o. This patient was seen & examined today. Complicated by: Patient Active Problem List Diagnosis contractions Patient doing well, resting comfortably in bed. Denies fevers, chills, shortness of breath, chest pain, nausea/vomiting, headaches, and vision changes. Lochia light. Voiding spontaneously. Passing flatus, present bowel movement. Ambulating well. Vital Signs: Vitals: 06/23/24 2206 06/23/24 2316 06/24/24 0814 06/24/242007 BP: 115/74 101/73 122/74 108/72 BP Location: Left arm Patient Position: Lying Pulse: 90 92 78 85 Resp: 16 16 18 16 Temp: 37.4 C (99.4 F) 37.2 C (99 F) 37.3 C (99.1 F) TempSrc: Temporal Temporal Temporal SpO2: 95% 96% 97% Weight: Height: Physical Exam: GENERAL APPEARANCE: alert, well-appearing ABDOMEN : soft, non-distended, appropriately tender to palpation, uterus 2 below umbilicus EXTREMITIES: no edema or tenderness NEUROLOGIC: A&Ox3, no focal neurological deficits Lab: Lab Results Component Value Date HGB 10.1 (L) 06/23/2024 Lab Results Component Value Date HCT 29.8 (L) 06/23/2024 LABOR DELIVERY ??? SCD's ONLY (labor through ambulation) SCD's PLUS Prophylactic Anticoagulation until discharge SCD's PLUS Prophylactic Anticoagulation for 6 weeks SCD's PLUS Therapeutic Anticoagulation for 6 weeks Vaginal Delivery [] BMI >= 40 kg/m2 Delivery All patients Vaginal Delivery [] BMI >= 40 kg/m2 AND [] Antepartum hospitalization >= 72 hours within the past month Delivery 1 Major Risk Factor: [] BMI >= 35 kg/m2 [] Low Risk Thrombophilia [] PPH+RBCs, IR, or operation [] Infection+Antibiotics [] Antepartum hospitalization >= 72 hours within the past month [] PMH: Sickle Cell, SLE, Cardiac Dz, Active IBD, Active Cancer, Nephrotic Syndrome OR 2 Minor Risk Factors: [] Multiple gestation [] Age > 40 [] PPH >= 1,000cc [] (+)FMH of VTE [] Smoker [] Preeclampsia [] BMI >= 40 kg/m2 AND [] Low Risk Thrombophilia OR ANY OF THE FOLLOWING: [] High Risk Thrombophilia without prior VTE [] Low Risk Thrombophilia with (+)FMH of VTE [] Any single prior VTE ANY OF THE FOLLOWING: [] Already on LMWH/UFH [] Multiple prior VTE [] High Risk Thrombophilia with prior VTE Low Risk Thrombophilia: FVL (heterozygous), Prothrombin (heterozygous), Protein C, Protein S High Risk Thrombophilia: FVL (homozygous), Prothrombin (homozygous), FVL+Prothrombin (heterozygous), Antithrombin III, APLS Assessment/Plan: Luz Hinojosa is PPD # 2 s/p Care - doing well, VSS - Male - breast feeding - contraception: Per Private Attending - encourage ambulation - VTE prophylaxis: Not Indicated Anxiety - mood and behavior appropriate - not on medications Disposition: Continue current care. Based on my clinical assessment, this patient is safe for self discharge (does not need transport by wheelchair) if she so chooses. Provider's Name: MD Arjun Samaniego MD 06/25/2024, 5:50 AM Cosigned by Jenny Ponce MD at 06/25/2024 10:12 AM EST Associated attestation - Jenny Ponce MD - 06/25/2024 10:12 AM EST Hospital Care (Independent): I independently saw and evaluated the patient. I agree with the findings and plan of care as documented in the resident's note. PPD#2 from . Doing well. Meeting milestones. VSS. Ready for DC home. Breast pumping for baby boy in NICU, baby doing well on CPAP per mom. Has a breast pump for home. Is going to ask about Mehrdad rondon. Desires POP for PPBC, Rx sent. Offered follow up with our office PP vs her primary OB in [place] and she will follow up in [place]. DC teaching done. Briefly discussed CL measurements and vaginal progesterone with the next . The total time spent on patient discharge today was 25 minutes. -10 minutes of the visit face to face patient care for counseling/coordination of care -15 minutes chart review and documentation Nutrition rescreen completed. Chart reviewed. Patient to be monitored and followed by the diet division order technician. MARRY Mathias Images from the original note were not included. VAGINAL DELIVERY POST DAY # 1 Luz Hinojosa, 23 y.o. This patient was seen & examined today. Complicated by: Patient Active Problem List Diagnosis contractions Patient doing well, resting comfortably in bed. Denies fevers, chills, shortness of breath, chest pain, nausea/vomiting, headaches, and vision changes. Lochia light. Voiding spontaneously. Passing flatus, absent bowel movement. Ambulating well. Vital Signs: Vitals: 06/23/24 2136 06/23/24 2151 06/23/24 2206 06/23/24 2316 BP: 116/71 108/68 115/74 101/73 Pulse: 90 91 90 92 Resp: 16 16 Temp: 37.4 C (99.4 F) TempSrc: Temporal SpO2: 95% Weight: Height: Physical Exam: GENERAL APPEARANCE: alert, well-appearing ABDOMEN : soft, non-distended, appropriately tender to palpation EXTREMITIES: no edema or tenderness NEUROLOGIC: A&Ox3, no focal neurological deficits Lab: Lab Results Component Value Date HGB 10.1 (L) 06/23/2024 Lab Results Component Value Date HCT 29.8 (L) 06/23/2024 LABOR DELIVERY ??? SCD's ONLY (labor through ambulation) SCD's PLUS Prophylactic Anticoagulation until discharge SCD's PLUS Prophylactic Anticoagulation for 6 weeks SCD's PLUS Therapeutic Anticoagulation for 6 weeks Vaginal Delivery [] BMI >= 40 kg/m2 Delivery All patients Vaginal Delivery [] BMI >= 40 kg/m2 AND [] Antepartum hospitalization >= 72 hours within the past month Delivery 1 Major Risk Factor: [] BMI >= 35 kg/m2 [] Low Risk Thrombophilia [] PPH+RBCs, IR, or operation [] Infection+Antibiotics [] Antepartum hospitalization >= 72 hours within the past month [] PMH: Sickle Cell, SLE, Cardiac Dz, Active IBD, Active Cancer, Nephrotic Syndrome OR 2 Minor Risk Factors: [] Multiple gestation [] Age > 40 [] PPH >= 1,000cc [] (+)FMH of VTE [] Smoker [] Preeclampsia [] BMI >= 40 kg/m2 AND [] Low Risk Thrombophilia OR ANY OF THE FOLLOWING: [] High Risk Thrombophilia without prior VTE [] Low Risk Thrombophilia with (+)FMH of VTE [] Any single prior VTE ANY OF THE FOLLOWING: [] Already on LMWH/UFH [] Multiple prior VTE [] High Risk Thrombophilia with prior VTE Low Risk Thrombophilia: FVL (heterozygous), Prothrombin (heterozygous), Protein C, Protein S High Risk Thrombophilia: FVL (homozygous), Prothrombin (homozygous), FVL+Prothrombin (heterozygous), Antithrombin III, APLS Assessment/Plan: Luz Hinojosa is PPD # 1 s/p Care - doing well, VSS - Male - - contraception: Per Private Attending - encourage ambulation - VTE prophylaxis: Not Indicated Anxiety - not on any medications - mood and behavior appropriate Disposition: Continue current care. Based on my clinical assessment, this patient is safe for self discharge (does not need transport by wheelchair) if she so chooses. Provider's Name: MD Arjun Samaniego MD 06/24/2024, 5:42 AM ATTENDING NOTE: I personally saw and evaluated the patient. I reviewed the care provided by the Resident including the patient's medical history, physical exam findings, diagnosis and treatment plan. I also agree with the documentation from the Resident unless otherwise indicated: Pt is doing well. [facility]boy in [facility] NICU. AFVSS. TIME SPENT ON PATIENT ENCOUNTER TODAY: Chart review and preparation: 10 minutes. [id number], documentation, and care coordination: 15 minutes. --> TOTAL= 25 MINUTES Images from the original note were not included. Labor Progress Note Date: 06/23/2024 Time: 4:42 PM Subjective: Luz Hinojosa is a 23 y.o. female at 29w5d admitted for labor Complications: Anxiety SVE : /-[address] Tejada at 1540 GBS: []Pos []Neg [x]Unknown Cx:defer FHP: defer FHT: Cat I [place]: irritable Patient moved over to labor and delivery due to cervical change. Receiving epidural. Will be for repeat cervical exam following epidural process. Continuing magnesium sulfate for neuroprotection and penicillin for GBS prophylaxis done after epidural, unchanged at /-2. Patient comfortable with epidural. Continue to monitor, CCM. Malena Winter DO 06/23/2024 4:58 PM SVE 10/100. Membranes intact at this time. Will transport to OR at this time. Dr. Ponce updated and en route to hospital. Dr. Carrasco notified of patient for coverage in event of delivery prior to arrival. FHT Cat 1. FLAT KNITTER notified. Moved to OR for delivery. Delivered. Images from the original note were not included. SVE performed in setting of continued CTX and abdominal pain. SVE unchanged at 280/-3. Will continue to monitor closely. Images from the original note were not included. Maternal Medicine Service Resident Progress Note 06/23/2024 6:37 AM 06/22/2024 Hospital Day: 2 Luz Hinojosa, 23 y.o. 29w5d Patient has been seen and examined. Pt complains of continued irregular contractions overnight, was able to sleep, she is unsure how often she is jacqueline due to sleeping off and on throughout the night. Positive movement Negative vaginal bleeding Negative LOF Positive Contractions Vitals: 06/22/24 2315 06/22/24 2328 06/22/24 2346 06/23/24 0100 BP: 121/71 114/68 118/71 BP Location: Patient Position: Pulse: 102 100 Resp: Temp: TempSrc: SpO2: Weight: Height: FHT: 120, moderate variability Accels: present Decels: absent Contractions: Irregular Physical Exam: Gen: NAD HEENT: Normocephalic, Atraumatic, EOMI, MMM Resp: No increased WOB Abd: soft, gravid, NTND, no rebound, no guarding. BS negative fundal tenderness Ext: No LE edema, no calf tenderness or swelling Medications: Current Facility-Administered Medications Medication Dose Route Frequency Provider Last Rate Last Admin acetaminophen (Tylenol) tablet 650 mg 650 mg Oral q4h PRN Malu Adams MD betamethasone acetate-betamethasone sodium phosphate (Celestone) injection 12 mg 12 mg IntraMUSCular q24h Malu Adams MD 12 mg at 06/22/24 2223 calcium gluconate 10 % injection 1 g 1 g IntraVENous PRN Malu Adams MD influenza vaccine tiss-cult subunt (Flucelvax) STANDARD-DOSE injection 0.5 mL 0.5 mL IntraMUSCular Once Malu Adams MD magnesium sulfate 20 GM/500ML infusion 1,000 mg/hr IntraVENous Continuous Malu Adams MD 25 mL/hr at 06/22/24 2315 1,000 mg/hr at 06/22/24 2315 NIFEdipine (Procardia) capsule 20 mg 20 mg Oral q6h Malu Adams MD 20 mg at 06/23/24 0609 ondansetron ODT (Zofran-ODT) disintegrating tablet 4 mg 4 mg Oral q8h PRN Malu Adams MD 4 mg at 06/22/24 2219 Or ondansetron (Zofran) injection 4 mg 4 mg IntraVENous q6h PRN Malu Adams MD penicillin G potassium IVPB 2.5 million units in dextrose 5 % 100 mL 2.5 Million Units IntraVENous Q4H Malu Adams MD 0 mL/hr at 06/23/24 0314 2.5 Million Units at 06/23/24 0607 vitamin tablet 1 tablet Oral Daily Malu Adams MD 1 tablet at 06/22/24 2348 sodium chloride 0.9 % infusion 5-250 mL/hr IntraVENous PRN Malu Adams MD sodium chloride 0.9% (NS) flush 10 mL 10 mL IntraVENous 2 times per day Malu Adams MD 10 mL at 06/22/24 2100 sodium chloride 0.9% (NS) flush 10 mL 10 mL IntraVENous PRN Malu Adams MD Assessment/Plan: Luz Hinojosa is a 23 y.o. female 29w5d Labor - History of contractions secondary to UTI 1 month prior. 1 cm dilated at that time - Administered BMZ x2 on 06/03-. - Presented on 06/22 for regular contractions q5 min that were painful. /-3 on SVE at that time. Given Terbutaline, IR procardia x1, magnesium sulfate therapy. - Irregular contractions persisted and patient transferred to higher level of care - Irregular contractions q1-7 on arrival with cervical exam /-3 - PCN started for GBS prophylaxis -Decision made for rescue BMZ and tocolysis with procardia 10mg IR q 10 min for 3 doses followed by 20mg q4-6 hours for 48 hours -Magnesium sulfate continued for neuroprotection -Will plan for formal growth and anatomy US this AM -Neonatology consulted for patient -Maintain CLD and CEFM as current -Second dose of rMBZ scheduled this Anxiety - No current medications IUP @ 29w5d - Dating by LMP consistent with 9w3d US - Cephalic on 06/22 - Monitoring: CEFM - Diet: CLD - BMZ x2 ob 06/03-06/04 rBMZ on 06/22 Further plan pending d/w attending. Gavi Tejada DO 06/23/2024, 6:37 AM Cosigned by Juliet Roca MD at 06/23/2024 1:55 PM EST Associated attestation - Juliet Roca MD - 06/23/2024 1:55 PM EST MFM ATTENDING I have personally obtained a history and examined the patient with Dr. Tejada. I agree with the assessment and plan as documented in the resident's note. The patient is a 23 y.o. 29w5d now HD#2, admitted overnight as transfer from Dr. Paulino Pozo for PTL. Had episode 2 weeks ago of contractions and received BMZ at that time. Presented yesterday with bloody show and contractions. Cervix 2/80/-3 and CTXs q7min. Upon arrival, started Procardia for tocolysis, adjusted mag to 1g/hr for AUTOMATIC HEMMER, and started PCN G for GBS prophylaxis. Rescue BMZ course initiated. Today she complains of continued intermittent contractions- some more painful than others. She is without other OB complaints and reports good movement. Vitals: 06/23/24 0900 06/23/24 1100 06/23/24 1150 06/23/24 1300 BP: 110/70 BP Location: Patient Position: Pulse: 107 100 (!) 124 Resp: Temp: TempSrc: SpO2: Weight: Height: Alert and oriented, NAD Gravid nontender abdomen Cervix rechecked on rounds: 2/80% Current Monitoring Plan: CEFM NST NST: Reactive, Cat 1 Ultrasound: 1323g (42%), Ant placenta, CHEMA 11cm and anatomy limited but normal. Cephalic Plan: Discussed plan with patient regarding PTL and rationale for therapies. Discussed tocolysis with procardia x 48hrs, mag x 12 hrs for AUTOMATIC HEMMER, and PCN G for GBS prophylaxis until we have GBS results. Rescue BMZ and rationale explained. NICU consult today. Continue inpatient. 35 minutes spent in total floor time today for review of records, patient interview and exam, documentation and coordination of care with care teams. Juliet Roca MD Images from the original note were not included. Department of Obstetrics and Gynecology Labor and Delivery Triage Note CHIEF COMPLAINT: Labor Transport from OSH HISTORY OF PRESENT ILLNESS: The patient is a 23 y.o. 29w4d. OB History 1 Para 0 Term 0 0 AB 0 Living 0 SAB 0 IAB 0 Ectopic 0 Multiple 0 Live Births 0 Patient presents with a chief complaint as above. Patient presenting from outside hospital for concern for labor. She noted her initial presentation was at outside hospital approximately 2 weeks ago when she had contractions. She is told at that time that she had a urinary tract infection was discharged on oral antibiotics. At that time she was 1 cm dilated and due to concern for early cervical dilation was given betamethasone x 2 on 06-03 and 1112. She was told that if there were any changes or increasing contractions that she should report to the hospital. Earlier yesterday and today she noted dark red tinge to vaginal mucus as well as contractions that were between every 1 to 5 minutes. So she represented to hospital. There she was determined to be 2 cm dilated she was started on multiple medications and was told that she needed to be transported for higher level of care. Patient stated during transport that she did notice 2 contractions during approximately 1-1/2-hour drive. She states overall contractions are lessening in intensity when they do arrive. She has not noticed any vaginal bleeding. She notes normal movement. Past medical history anxiety no current medications Past surgical history wisdom tooth extraction Allergies present to clonidine and Paxil Obstetric history Estimated Due Date: Estimated Date of Delivery: 09/03/24 PAST MEDICAL HISTORY: History reviewed. No pertinent past medical history. 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 CARE: Complicated by: Hx Urinary tract infection REVIEW OF SYSTEMS: Pertinent items are noted in HPI. APPEARANCE: Pain: No PHYSICAL EXAM: Vital Signs: VS wnl-reviewed/Respirations normal effort Vitals: 06/22/24 1849 06/22/24 1850 06/22/24 1855 BP: 124/67 Pulse: 114 115 108 Resp: 16 Temp: 36.8 C (98.3 F) TempSrc: Oral SpO2: 98% Weight: 143 lb (64.9 kg) Height: 5' 5 (1.651 m) Abdomen: soft, gravid, nontender, nondistended, no abnormal masses, no epigastric pain Uterus: gravid/non-tender LE Edema: trace Speculum Exam: no pooling of fluid seen, vaginal discharge mucus yellow/brown tinged in appearance heart rate: Category I Cervix: 2/80/-3 Contraction frequency: Irregular q1-7 minutes; patient feeling rare contractions Membranes: Intact RESULTS: NST: Reactive TRIAGE COURSE: Cervical exam as above, concern for change since outside facility. Discussed plan of care with Dr. Roca on-call for [facility] service and will plan for toco lysis as well as rescue steroids. heart tracing category 1. Will initiate penicillin for GBS prophylaxis as well as de-escalate magnesium to neuroprotection dosing at 1 g/h. Notified patient and patient agreeable to plan. Fetus vertex on bedside ultrasound. ESSION: Pre-Term Labor Pain assessment and plan: None DISCUSSED WITH PNC PROVIDER: Dr. Roca DISPOSITION: Admit to Antepartum (PNU) Cosigned by Allie Lerma DO at 06/23/2024 12:19 AM EST documented in this encounter [facility] 06-24-2024 Obstetrics Note Baby is in the NICU. Pt was very happy that she was able to pump 2 syringes without difficulty. Enc given. Pt has a new spectra pump in her room for home and would like to know how to use it. Baby was born at 29 wk 5 days. Reviewed pump settings and regimen. Pt feels the flanges are working for her and she was assessed in NICU. Questions answered about edita storage, chart reviewed and shown to pt. Pt shown how to use her spectra pump, enc to also view their videos and ask questions as needed. Enc to sterilize parts prior to first use. Reviewed pumping regimen, establishing a milk supply and importance of breast stimulation. Questions answered about her new spectra pump. Informed of availability in the hospital and bf mother's groups after dc. Verbalizes understanding. [facility] 06-24-2024 Note Formatting of this n ote might be different from the original. Date: 06/24/2024 Name: Luz Hinojosa : 2000 [facility] Patient Information Primary Caregiver: Self Accompanied by/Relationship: S/O;Family Marital Status: Support System: SO/Family Sabianist/Cultural Factors: none Activities of Daily Living Communication: See demographics Living Arrangements Current Residence: Private residence Lives With: S/O; Family Support System: S/O; Family Income Information Income Source: Lives with , Not Employed Financial Resource Strain How hard is it for you to pay for the very basics like food, housing, medical care and heating? N/A Housing Stability In the last 12 months, was there a time when you did not have a steady place to sleep or slept in a usp (including now)? No Transportation Needs Has the lack of Transportation kept you from medical appointments? No In the past 12 months, has the lack of transportation kept you from meetings, work, or from getting things needed for daily living? No Food Insecurity Within the past 12 months, have you worried that your food would run out before you got the money to buy more? No Stress Do you feel stress - tense, restless, nervous, or anxious, or unable to sleep at night because you mind is troubled all the time? Mood stable Referral To Financial Resources: N/A Community Resources: Admission folder given upon admission to PP Unit Social Work: N/A CLP: N/A Medical Information Transport at 29/4 weeks. 1 Para 0. Vaginal delivery. Infant in NICU Consults MFM and NICU. labor Discharge Plan Home or Community Resources: Admission folder given upon admission to PP unit Equipment: N/A Education Given: Discussion on the A. B. C's of safe sleep. Always place your baby on his or her back to sleep, use a firm sleep surface and your baby should not sleep in an adult bed, on a couch or chair. Keep soft objects, toys and loose bedding out of your baby's sleep area. Reviewed depression. It is common to have blues. This is a normal response to many of the hormonal changes, stress and lack of sleep that go with raising a and physically recovering from the . Don't hesitate to talk to your provider with any concerns. There are resources in your home going booklet. To help prevent germs from spreading to you and your baby, make sure everyone washes their hands before they handle your . Avoid crowds, and keep infant away from sick people, anyone who is sick with a cough or fever, including family members. Post- warning signs information reviewed with patient per nurse with discharge Additional Information: Patient is independent and has insurance. She is prepared with her baby supplies. To be discharged to home. Denies any concerns at this time. Mental Health Services: Resources in discharge folder Equipment: Developmental Delay: N/A Children's Services: N/A [facility] 06-24-2024 Note Formatting of this n ote might be different from the original. Date: 06/24/2024 Name: Luz Hinojosa : 2000 [facility] Patient Information Primary Caregiver: Self Accompanied by/Relationship: S/O;Family Marital Status: Support System: SO/Family Sabianist/Cultural Factors: none Activities of Daily Living Communication: See demographics Living Arrangements Current Residence: Private residence Lives With: S/O; Family Support System: S/O; Family Income Information Income Source: Lives with , Not Employed Financial Resource Strain How hard is it for you to pay for the very basics like food, housing, medical care and heating? N/A Housing Stability In the last 12 months, was there a time when you did not have a steady place to sleep or slept in a usp (including now)? No Transportation Needs Has the lack of Transportation kept you from medical appointments? No In the past 12 months, has the lack of transportation kept you from meetings, work, or from getting things needed for daily living? No Food Insecurity Within the past 12 months, have you worried that your food would run out before you got the money to buy more? No Stress Do you feel stress - tense, restless, nervous, or anxious, or unable to sleep at night because you mind is troubled all the time? Mood stable Referral To Financial Resources: N/A Community Resources: Admission folder given upon admission to PP Unit Social Work: N/A CLP: N/A Medical Information Transport at 29/4 weeks. 1 Para 0. Vaginal delivery. Infant in NICU Consults MFM and NICU. labor Discharge Plan Home or Community Resources: Admission folder given upon admission to PP unit Equipment: N/A Education Given: Discussion on the A. B. C's of safe sleep. Always place your baby on his or her back to sleep, use a firm sleep surface and your baby should not sleep in an adult bed, on a couch or chair. Keep soft objects, toys and loose bedding out of your baby's sleep area. Reviewed depression. It is common to have blues. This is a normal response to many of the hormonal changes, stress and lack of sleep that go with raising a and physically recovering from the . Don't hesitate to talk to your provider with any concerns. There are resources in your home going booklet. To help prevent germs from spreading to you and your baby, make sure everyone washes their hands before they handle your . Avoid crowds, and keep infant away from sick people, anyone who is sick with a cough or fever, including family members. Post- warning signs information reviewed with patient per nurse with discharge Additional Information: Patient is independent and has insurance. She is prepared with her baby supplies. To be discharged to home. Denies any concerns at this time. Mental Health Services: Resources in discharge folder Equipment: Developmental Delay: N/A Children's Services: N/A [facility] 06-24-2024 Nurse Note Patient up to ambulate for this first time since delivery. Patient able to ambulate to the bathroom independently. Pads and underwear changed. Lazara care performed. Education provided about abnormal signs of bleeding and lazara care. No questions or concerns voiced. Patient ambulated back to bed without difficulty. Call light within reach. [facility] 06-24-2024 Nurse Note Patient up to ambulate for this first time since delivery. Patient able to ambulate to the bathroom independently. Pads and underwear changed. Lazara care performed. Education provided about abnormal signs of bleeding and lazara care. No questions or concerns voiced. Patient ambulated back to bed without difficulty. Call light within reach. documented in this encounter [facility] 06-23-2024 Labor and delivery summary note Images from the original note were not included. Vaginal Delivery Note Department of Obstetrics and Gynecology Patient: Luz Hinojosa : 2000 Date of delivery: 06/23/2024 Pre-operative Diagnosis: Luz Goel at 29w5d 1. labor 2. Anxiety Post-operative Diagnosis: Live Born male Delivering Beauty Specialist & Real Estate Firm Manager(s): Dr. Ponce; Dr. Adams Information: Information for the patient's : Onesimo Hinojosa [[id number]] Information for the patient's : Onesimo Hinojosa [[id number]] Description: normal Meconium Noted: No Anesthesia: epidural anesthesia Complications: None Application and Delivery: Luz Goel at 29w5d admitted for threatened labor as a transfer from [place]. She progressed with cervical dilation despite tocolysis. She was moved to OR for delivery at 10 cm dilation and AROM was preformed. She pushed for 10 minutes prior to delivery. She was known to be GBS unknown and received Penicillin G prophylaxis. After pushing with contractions the head delivered Cephalic, right occiput anterior over an intact perineum. A nuchal cord was not present. The anterior, then posterior shoulder delivered easily and atraumatically followed by the rest of the . The infant was placed on the maternal abdomen and attended by the RN for evaluation. The was stimulated and dried. The cord was clamped and cut. The delivery of the placenta was spontaneous and appeared intact. Pitocin was started. The vagina was swept of all clots and debris. The perineum and vagina were evaluated. No lacerations were found.. All counts were correct. Mother and baby tolerated procedure well. No uterotonics were required during delivery. EBL: 50ml QBL: Quantitative Blood Loss (mL): 50 mL VTE Prophylaxis: Not Indicated LABOR DELIVERY ??? SCD's ONLY (labor through ambulation) SCD's PLUS Prophylactic Anticoagulation until discharge SCD's PLUS Prophylactic Anticoagulation for 6 weeks SCD's PLUS Therapeutic Anticoagulation for 6 weeks Vaginal Delivery [] BMI >= 40 kg/m2 Delivery All patients Vaginal Delivery [] BMI >= 40 kg/m2 AND [] Antepartum hospitalization >= 72 hours within the past month Delivery 1 Major Risk Factor: [] BMI >= 35 kg/m2 [] Low Risk Thrombophilia [] PPH+RBCs, IR, or operation [] Infection+Antibiotics [] Antepartum hospitalization >= 72 hours within the past month [] PMH: Sickle Cell, SLE, Cardiac Dz, Active IBD, Active Cancer, Nephrotic Syndrome OR 2 Minor Risk Factors: [] Multiple gestation [] Age > 40 [] PPH >= 1,000cc [] (+)FMH of VTE [] Smoker [] Preeclampsia [] BMI >= 40 kg/m2 AND [] Low Risk Thrombophilia OR ANY OF THE FOLLOWING: [] High Risk Thrombophilia without prior VTE [] Low Risk Thrombophilia with (+)FMH of VTE [] Any single prior VTE ANY OF THE FOLLOWING: [] Already on LMWH/UFH [] Multiple prior VTE [] High Risk Thrombophilia with prior VTE Low Risk Thrombophilia: FVL (heterozygous), Prothrombin (heterozygous), Protein C, Protein S High Risk Thrombophilia: FVL (homozygous), Prothrombin (homozygous), FVL+Prothrombin (heterozygous), Antithrombin III, APLS Delivery Summary: Specimen: Cord blood and Cord gases Blood Type and Rh: A Rubella Immunity Status: No results found for: RUBELLAIGGQT Malu Adams MD 06/23/2024, 9:34 PM OB Delivery Note 06/23/2024 Luz Hinojosa 23 y.o. Gestational Age: 29w5d /Para: Estimated Blood Loss: Delivery Blood Loss Intrapartum & : 06/23/24 0749 - 06/23/242132 Delivery Admission: 06/22/24 1832 - 06/23/242132 Intrapartum & Delivery Admission Quantitative Blood Loss (mL) Hospital Encounter 50 mL 50 mL Total 50 mL 50 mL Quantitative Blood Loss: 50 mL Onesimo Hinojosa [[id number]] Labor Events labor?: Yes steroids: Full Course Antibiotics received during labor?: Yes Rupture of Membranes Rupture date/time: 06/23/241937 ReadOnly Edit in Flowsheets Rupture type: Artificial Fluid color: Clear Fluid odor: None Labor Details Prior : No Labor type: Spontaneous Onset of Labor First cervical ripening date/time: Induction date/time: Augmentation date/time: Labor complications: None Anesthesia Method: Epidural Labor Event Times Labor onset date/time: Dilation complete date/time: 06/23/241909 EST Start pushing date/time: Decision date/time () Delivery () Delivery date/time: 06/23/24 19:49:00 Delivery type: Vaginal, Spontaneous Details: Delivery Complications: None Presentation Presentation: Vertex Position: Right Occiput Anterior Shoulder Dystocia Shoulder dystocia present: No Gita maneuver: Suprapubic pressure: Episotomy: Culp maneuver: Masters screw maneuver: Devyn maneuver: Delivery of posterior arm: clavicular fracture: Zavanelli maneuver: Delivery Details Forceps attempted?: No Vacuum extractor attempted?: No Forceps Details: Vacuum Details: Cord Vessels: 3 vessels Complications: None Delayed cord clamping?: Yes Placenta Date/time: 06/23/2024 7:57 PM Removal: Spontaneous Appearance: Intact Comment: to NICU Delivery (Maternal) Episiotomy: None Perineal lacerations: None Other lacerations: no non-perineal laceration Repair suture: None Vaginal Counts 4x4 [place] Instruments Lap Pads Sponges Initial counts Interim counts Final counts 17 2 Final count personnel: FLORES Final count verified by: [place] Accurate final count?: Yes Blood Loss Mother: Luz Hinojosa #[id number] Start of Mother's Information Delivery Blood Loss Intrapartum & : 06/23/24 0749 - 06/23/242132 Delivery Admission: 06/22/24 1832 - 06/23/24 2133 Intrapartum & Delivery Admission Quantitative Blood Loss (mL) Hospital Encounter 50 mL 50 mL Total 50 mL 50 mL End of Mother's Information Mother: Luz Hinojosa #[id number] Delivery Providers Delivering clinician: Jenny Ponce MD Provider Role Consulting Physician Malu Adams MD Delivery Assist Judie Ochoa RN Delivery Nurse Moriah Oreilly, ROXI Nurse Trudi Argueta APRN - FACETER Nurse Practitioner Luci Ramachandran RN NICU Nurse Shavonne Meade RCP Respiratory Therapist Nurse Fitting Supervisor Scrub Nurse Fab Alexis, FACULTY MEMBER Nurse Emily Teresa MD Assessment Living status: Living Scoring Ward: 0 1 2 Skin color Blue or pale Acrocyanotic Completely pink Heart rate Absent <100 bpm >100 bpm Reflex irritability No response Grimace Cry or active withdrawal Muscle tone Limp Some flexion Active motion Respiratory effort Absent Weak cry; hypoventilation Good, crying 1 Minute: Total: 1 total from OB History 5 Minute: 5 total from OB History 10 Minute: 15 Minute: 20 Minute: Apgars assigned by: NICU Measurements Weight: 1335 g Weight (lbs): 2 lb 15.1 oz Length: Skin to Skin Reason skin to skin not initiated: [place] Acuity [place] Disposition [place] Handoff Immediately at : To warmer with NICU staff: Yes Malu Adams MD Cosigned by Jenny Ponce MD at 06/25/2024 10:09 AM EST Associated attestation - Jenny Ponce MD - 06/25/2024 10:09 AM EST Procedures or Surgery: I was present for all ward elements of the procedure or surgery as described in the resident note. [facility] 06-23-2024 Plan of care note Problem: Antepartum Goal: Maintain as long as maternal and/or condition is stable 06/23/20242101 by Judie Ochoa RN Outcome: Completed 06/23/20242035 by Judie Ochoa RN Outcome: Progressing [facility] 06-23-2024 Note Labor Progress Note Date: 06/23/2024 Time: 4:42 PM Subjective: Luz Hinojosa is a 23 y.o. female at 29w5d admitted for labor Complications: Anxiety SVE : /-[address] Tejada at 1540 GBS: []Pos []Neg [x]Unknown Cx:defer FHP: defer FHT: Cat I [place]: irritable Patient moved over to labor and delivery due to cervical change. Receiving epidural. Will be for repeat cervical exam following epidural process. Continuing magnesium sulfate for neuroprotection and penicillin for GBS prophylaxis done after epidural, unchanged at /-2. Patient comfortable with epidural. Continue to monitor, CCM. Malena Ratliffvelasquez, DO 06/23/2024 4:58 PM SVE 10/100. Membranes intact at this time. Will transport to OR at this time. Dr. Ponce updated and en route to hospital. Dr. Carrasco notified of patient for coverage in event of delivery prior to arrival. T Cat 1. FLAT KNITTER notified. Moved to [place] for delivery. Delivered. [facility] 06-23-2024 Note Epidural Block Time Out: 06/23/2024 4:20 PM Patient location during procedure: OB Start time: 06/23/2024 4:24 PM End time: 06/23/2024 4:35 PM Reason for block: labor analgesia Staffing Performed: WIRE SPOOLER Resident/WIRE SPOOLER: Juan Rodriguez APRN - WIRE SPOOLER Preanesthetic Checklist Completed: patient identified, IV checked, site marked, risks and benefits discussed, surgical consent, monitors and equipment checked, pre-op evaluation, timeout performed, IV bolus and anesthesia consent given Block Placement Patient position: sitting Prep: ChloraPrep Sterility prep: drape, gloves, cap, hand and mask Sedation level: no sedation Patient monitoring: heart rate Approach: midline Location: lumbar Lumbar location: L4-L5 Epidural Loss of resistance technique: saline Guidance: landmark technique Needle Needle type: Korina Needle gauge: 17 G Needle length: 9 cm Needle insertion depth: 4 cm Catheter type: multi-orifice Catheter size: 19 G Catheter at skin depth: 8 cm Catheter securement method: surgical tape, liquid medical adhesive and clear occlusive dressing Test dose: negative Medications Administered lidocaine-EPINEPHrine (Xylocaine W/EPI) 1.5 %-[id number] injection - Epidural 3 mL - 06/23/2024 4:27:00 PM ropivacaine (Naropin) 0.2 % epidural bolus - Epidural 10 mL - 06/23/2024 4:30:00 PM Assessment Block outcome: pain improved Procedure assessment: patient tolerated procedure well with no immediate complications Additional Notes Dural puncture performed with 25g Pencan [facility] 06-23-2024 Note Patient: Luz garcia Procedure Information Date: 06/23/24 Procedure: Labor Analgesia Relevant Problems No relevant active problems Clinical information reviewed: Tobacco Allergies Meds Med Hx Surg Hx Fam Hx Soc Hx Physical Exam Airway Mallampati: II TM distance: >3 FB Neck ROM: full Mouth Open: normalendotracheal tube not in place Cardiovascular Dental dentition normal Pulmonary Abdominal child care associate Evaluation Anesthesia Plan patient is NPO appropriate Any family history or previous problems with anesthesia no ASA 2 epidural Any family history or previous problems with anesthesia no The patient is not a current smoker. Anesthetic plan and risks discussed with patient. Use of blood products discussed with who consented to blood products. Additional Equipment Requests [facility] 06-23-2024 Note Formatting of this n ote might be different from the original. Following SVE performed by Dr. Tejada where patient made change from 2/80/-3 to 5/90/-2 with bulging bag, confirmed vertex positioning on BSUS. Magnesium sulfate restarted at this time. PCN running, patient has now received one dose of rescue steriods. Will discontinue tocolytics per Dr. Roca's recommendations. Dr. Ponce and Dr. Roca both updated and aware. Plan to move patient to labor floor and patient may request epidural. FLAT KNITTER updated and aware. [facility] [employer] Work Phone: 06-23-2024 Note Formatting of this n ote might be different from the original. Following SVE performed by Dr. Tejada where patient made change from 2/80/-3 to 5/90/-2 with bulging bag, confirmed vertex positioning on BSUS. Magnesium sulfate restarted at this time. PCN running, patient has now received one dose of rescue steriods. Will discontinue tocolytics per Dr. Roca's recommendations. Dr. Ponce and Dr. Roca both updated and aware. Plan to move patient to labor floor and patient may request epidural. FLAT KNITTER updated and aware. [facility] [employer] Work Phone: 06-23-2024 Note Formatting of this n ote might be different from the original. Date: 06/23/2024 Name: Luz Hinojosa : 2000 [facility] Information [facility] Patient Information Primary Caregiver: Self Accompanied by/Relationship: S/O;Family Marital Status: Single Support System: SO/Family Sabianist/Cultural Factors: none Activities of Daily Living Communication: See demographics Living Arrangements Current Residence: Private residence Lives With: S/O; Family Support System: S/O; Family Income Information Income Source: Not Employed Financial Resource Strain How hard is it for you to pay for the very basics like food, housing, medical care and heating? N/A Housing Stability In the last 12 months, was there a time when you did not have a steady place to sleep or slept in a usp (including now)? No Transportation Needs Has the lack of Transportation kept you from medical appointments? No In the past 12 months, has the lack of transportation kept you from meetings, work, or from getting things needed for daily living? No Food Insecurity Within the past 12 months, have you worried that your food would run out before you got the money to buy more? No Stress Do you feel stress - tense, restless, nervous, or anxious, or unable to sleep at night because you mind is troubled all the time? Mood stable Referral To Financial Resources: N/A Community Resources: PNU folder given upon admission to PNU Unit Social Work: N/A CLP: N/A Medical Information 23 year old admitted for contractions at 29/4 weeks. 1 Para 0. Hx of anxiety. NICU consult Transport Discharge Plan Home or Community Resources: PNU Admission folder given upon admission to unit Equipment: N/A Education Given: PNU admit folder and see Education Tab Additional Information: N/A Mental Health Services: N/A Developmental Delay: N/A Children's Services: N/A [facility] 06-23-2024 Note Formatting of this n ote might be different from the original. Date: 06/23/2024 Name: Luz Hinojosa : 2000 [facility] Patient Information Primary Caregiver: Self Accompanied by/Relationship: S/O;Family Marital Status: Single Support System: SO/Family Sabianist/Cultural Factors: none Activities of Daily Living Communication: See demographics Living Arrangements Current Residence: Private residence Lives With: S/O; Family Support System: S/O; Family Income Information Income Source: Not Employed Financial Resource Strain How hard is it for you to pay for the very basics like food, housing, medical care and heating? N/A Housing Stability In the last 12 months, was there a time when you did not have a steady place to sleep or slept in a usp (including now)? No Transportation Needs Has the lack of Transportation kept you from medical appointments? No In the past 12 months, has the lack of transportation kept you from meetings, work, or from getting things needed for daily living? No Food Insecurity Within the past 12 months, have you worried that your food would run out before you got the money to buy more? No Stress Do you feel stress - tense, restless, nervous, or anxious, or unable to sleep at night because you mind is troubled all the time? Mood stable Referral To Financial Resources: N/A Community Resources: PNU folder given upon admission to PNU Unit Social Work: N/A CLP: N/A Medical Information 23 year old admitted for contractions at 29/4 weeks. 1 Para 0. Hx of anxiety. NICU consult Transport Discharge Plan Home or Community Resources: PNU Admission folder given upon admission to unit Equipment: N/A Education Given: PNU admit folder and see Education Tab Additional Information: N/A Mental Health Services: N/A Developmental Delay: N/A Children's Services: N/A [facility] 06-23-2024 Consult note Associated Order (s): IP CONSULT TO NEONATOLOGY NICU Maternal Consult Note Asked by Leatha Samayoa MD to consult on this patient due to 29 +5 weeks with labor . Based on the gestational age of 29w5d and estimated weight (not considering the impact of potential congenital infections or anomalies), the estimated survival is 90%. I have identified and discussed the following factors that are likely to improve and worsen this estimate. Discussed resuscitation and need for CPAP and possible intubation. Respiratory: Risk of Respiratory Distress Syndrome Benefits of steroids Cardiovascular: Risk of PDA Infection: Risk of infection Fluids/Nutrition: Mother's feeding preference - Breast Benefits of breast milk in all neonates Hematologic: Possible need for blood products Hyperbilirubinemia (Jaundice) IV Access: Peripheral IV or Umbilical Lines Neurologic: Neuro-development outcome Risk of IVH Risk of mental retardation and / or Cerebral Palsy NICU criteria for discharge discussed. All questions answered. Time Spent 40 minutes. Emily Teresa MD, 06/23/2024 [employer] Phone: 06-23-2024 Consult note Associated Order (s): IP CONSULT TO NEONATOLOGY NICU Maternal Consult Note Asked by Leatha Samayoa MD to consult on this patient due to 29 +5 weeks with labor . Based on the gestational age of 29w5d and estimated weight (not considering the impact of potential congenital infections or anomalies), the estimated survival is 90%. I have identified and discussed the following factors that are likely to improve and worsen this estimate. Discussed resuscitation and need for CPAP and possible intubation. Respiratory: Risk of Respiratory Distress Syndrome Benefits of steroids Cardiovascular: Risk of PDA Infection: Risk of infection Fluids/Nutrition: Mother's feeding preference - Breast Benefits of breast milk in all neonates Hematologic: Possible need for blood products Hyperbilirubinemia (Jaundice) IV Access: Peripheral IV or Umbilical Lines Neurologic: Neuro-development outcome Risk of IVH Risk of mental retardation and / or Cerebral Palsy NICU criteria for discharge discussed. All questions answered. Time Spent 40 minutes. Emily Teresa MD, 06/23/2024 documented in this encounter [facility] 06-23-2024 Note Discharge Instructio ns Given Worsening The following Patient Education Materials have been given to the patient: ~~ EducationMaterial [facility] 06-23-2024 Plan of care note Problem: Antepartum Goal: Maintain as long as maternal and/or condition is stable Outcome: Progressing Flowsheets (Taken 06/22/20242199) Maintain as long as maternal and/or condition is stable: Maternal surveillance grit blaster uterine activity Medications as ordered Problem: Pain - Adult Goal: Verbalizes/displays adequate comfort level or baseline comfort level Outcome: Progressing Problem: Infection - Adult Goal: Absence of infection during hospitalization Outcome: Progressing Flowsheets (Taken 06/22/20240) Absence of infection during hospitalization: Assess and monitor for signs and symptoms of infection Monitor lab/diagnostic results Monitor all insertion sites i.e., indwelling lines, tubes and drains Administer medications as ordered Instruct and encourage patient and family to use good hand hygiene technique Problem: Safety - Adult Goal: Free from fall injury Outcome: Progressing Flowsheets (Taken 06/22/2024 2252) Free from fall injury: Instruct family/caregiver on patient safety [facility] 06-22-2024 History and physical note Department of Maternal Medicine History and Physical CHIEF COMPLAINT: contractions HISTORY OF PRESENT ILLNESS: The patient is a 23 y.o. female at 29w4d. OB History 1 Para 0 Term 0 0 AB 0 Living 0 SAB 0 IAB 0 Ectopic 0 Multiple 0 Live Births 0 Patient presents with a chief complaint as above and is being admitted for labor. Transport: Yes Estimated Due Date: Estimated Date of Delivery: 09/03/24 CARE: Complications: Anxiety PAST OB HISTORY: OB History 1 Para 0 Term 0 0 AB 0 Living 0 SAB 0 IAB 0 Ectopic 0 Multiple 0 Live Births 0 Detailed OB History Current Past Medical History: History reviewed. No pertinent past medical history. Past Surgical History: Past Surgical History: Procedure Laterality Date WISDOM TOOTH EXTRACTION 18 years old Allergies: Clonidine and Paxil [paroxetine] Social History: Social History Socioeconomic History Marital status: Single Spouse name: Not on file Number of children: Not on file Years of education: Not on file Highest education level: Not on file Occupational History Not on file Tobacco Use Smoking status: Never Smokeless tobacco: Former Vaping Use Vaping status: Former Substance and Sexual Activity Alcohol use: Not Currently Drug use: Never Sexual activity: Not on file Other Topics Concern Not on file Social History Narrative Not on file Social Drivers of Health Financial Resource Strain: Not on file Food Insecurity: Not on file Transportation Needs: Not on file Physical Activity: Not on file Stress: Not on file Social Connections: Not on file Intimate Partner Violence: Not At Risk (06/22/2024) Humiliation, Afraid, Rape, and Kick questionnaire Fear of Current or Ex-Partner: No Emotionally Abused: No Physically Abused: No Sexually Abused: No Housing Stability: Not on file Family History: No family history on file. Medications Prior to Admission: Medications Prior to Admission Medication Sig Dispense Refill Last Dose/Taking MV-Min-Fe Fum-FA-DHA ( 1 PO) Take 1 tablet by mouth daily. Past Week REVIEW OF SYSTEMS: Review of Systems Constitutional: Negative for chills and fever. Eyes: Negative for visual disturbance. Respiratory: Negative for shortness of breath. Cardiovascular: Negative for chest pain. Gastrointestinal: Negative for abdominal pain, nausea and vomiting. Genitourinary: Negative for dysuria, hematuria and vaginal bleeding. Neurological: Negative for headaches. Psychiatric/Behavioral: Negative for confusion. Labs: CBC, CMP, Blood Type and Screen, PT/INR/Fibrinogen PHYSICAL EXAM: Vitals: 06/22/24 1849 06/22/24 1850 06/22/24 1855 BP: 124/67 Pulse: 114 115 108 Resp: 16 Temp: 36.8 C (98.3 F) TempSrc: Oral SpO2: 98% Weight: 143 lb (64.9 kg) Height: 5' 5 (1.651 m) General appearance: awake, alert, cooperative, no apparent distress, and appears stated age Neurologic: Awake, alert, oriented to name, place and time. Lungs: No increased work of breathing, good air exchange Abdomen: Soft, non tender, gravid, consistent with her gestational age Sterile Speculum Exam: Membranes: Intact HSV Lesions: absent Cervix: 2/80/-3 Contraction frequency: Q7 min, irregular Fetus: EFW: Completed in ED in 06/22: EFW 1344g 23% Presentation: Vertex by U/S NST: Reactive genetics: CYSTIC FIBROSIS: Negative SMA: Negative FRAGILE X: Negative CELL FREE DNA: Negative Hx of PTL: Celestone given previously: Yes ASSESSMENT AND PLAN: LABOR DELIVERY ??? SCD's ONLY (labor through ambulation) SCD's PLUS Prophylactic Anticoagulation until discharge SCD's PLUS Prophylactic Anticoagulation for 6 weeks SCD's PLUS Therapeutic Anticoagulation for 6 weeks Vaginal Delivery [] BMI >= 40 kg/m2 Delivery All patients Vaginal Delivery [] BMI >= 40 kg/m2 AND [] Antepartum hospitalization >= 72 hours within the past month Delivery 1 Major Risk Factor: [] BMI >= 35 kg/m2 [] Low Risk Thrombophilia [] PPH+RBCs, IR, or operation [] Infection+Antibiotics [] Antepartum hospitalization >= 72 hours within the past month [] PMH: Sickle Cell, SLE, Cardiac Dz, Active IBD, Active Cancer, Nephrotic Syndrome OR 2 Minor Risk Factors: [] Multiple gestation [] Age > 40 [] PPH >= 1,000cc [] (+)FMH of VTE [] Smoker [] Preeclampsia [] BMI >= 40 kg/m2 AND [] Low Risk Thrombophilia OR ANY OF THE FOLLOWING: [] High Risk Thrombophilia without prior VTE [] Low Risk Thrombophilia with (+)FMH of VTE [] Any single prior VTE ANY OF THE FOLLOWING: [] Already on LMWH/UFH [] Multiple prior VTE [] High Risk Thrombophilia with prior VTE Low Risk Thrombophilia: FVL (heterozygous), Prothrombin (heterozygous), Protein C, Protein S High Risk Thrombophilia: FVL (homozygous), Prothrombin (homozygous), FVL+Prothrombin (heterozygous), Antithrombin III, APLS VTE Prophylaxis: Not Indicated Admission: Admit to Antepartum (PNU) FHR: Category 1, heart monitoring CEFM Labs: GBS collected GC/CT collected Urine collected FFN not obtained Type&Screen collected Serum Labs CBC, CMP, PT/INR, Fibrinogen Consults: MFM and Neonatology Imaging: Indicated/ordered AM Growth US Diet: CLD Testing: TBD Timing and Route of Delivery: TBD Medications: Neuroprotection Indicated/ordered Tocolysis Indicated/ordered Antibiotics Indicated/Ordered Steroids: Betamethasone - indicated and ordered Labor -Patient with history of contractions secondary to UTI one month prior. Was noted to be 1 cm dilated at that time and given BMZ x 2 06/03-06/04 -Patient represented to OSH for concern for regular contractions q5 min duration that were painful. She was initially noted to be tight /-3 and given terbutaline, IR procardia x1, magnesium sulfate therapy. Contractions persisted irregularly and was transferred for higher level of care -On initial exam on arrival, patient was comfortable appearing, contractions irregular q1-7 with cervical exam 80/-3 -PCN started for GBS prophylaxis -Decision made for rescue BMZ and tocolysis with procardia 10mg IR q 10 min for 3 doses followed by 20mg q4-6 hours for 48 hours -Magnesium sulfate continued for neuroprotection -Will plan for formal growth and anatomy US in AM -Neonatology to be consulted for patient -Maintain CLD and CEFM as current Anxiety -No current medications IUP @ 29w4d - Dating by LMP consistent with 9w3d US - Cephalic on 06/22 - Monitoring: CEFM - Diet: CLD - BMZ x2 ob 06/03-06/04 rBMZ on 06/[address] Roca, who agrees with plan. Malu Adams MD 06/22/2024, 8:11 PM Cc: Leatha Samayoa MD Cosigned by Juleit Roca MD at 06/23/2024 1:47 PM EST Associated attestation - Juliet Roca MD - 06/23/2024 1:47 PM EST Attending Supervising Physician's Attestation Statement This patient was admitted overnight while I was impregnation operator. I discussed the assessment and management with the resident physician. I reviewed and agree with the findings and plan as documented in the note. Transfer for PTL. Agree with procardia, mag, BMZ and GBS prophylaxis. Juliet Roca MD [facility] 06-22-2024 Note Attestation signed by Juliet Roca MD at 06/23/2024 1:47 PM Attending Supervising Physician's Attestation Statement This patient was admitted overnight while I was impregnation operator. I discussed the assessment and management with the resident physician. I reviewed and agree with the findings and plan as documented in the note. Transfer for PTL. Agree with procardia, mag, BMZ and GBS prophylaxis. Juliet Roca MD Department of Maternal Medicine History and Physical CHIEF COMPLAINT: contractions HISTORY OF PRESENT ILLNESS: The patient is a 23 y.o. female at 29w4d. OB History 1 Para 0 Term 0 0 AB 0 Living 0 SAB 0 IAB 0 Ectopic 0 Multiple 0 Live Births 0 Patient presents with a chief complaint as above and is being admitted for labor. Transport: Yes Estimated Due Date: Estimated Date of Delivery: 09/03/24 CARE: Complications: Anxiety PAST OB HISTORY: OB History 1 Para 0 Term 0 0 AB 0 Living 0 SAB 0 IAB 0 Ectopic 0 Multiple 0 Live Births 0 Detailed OB History Current Past Medical History: History reviewed. No pertinent past medical history. Past Surgical History: Past Surgical History: Procedure Laterality Date WISDOM TOOTH EXTRACTION 18 years old Allergies: Clonidine and Paxil [paroxetine] Social History: Social History Socioeconomic History Marital status: Single Spouse name: Not on file Number of children: Not on file Years of education: Not on file Highest education level: Not on file Occupational History Not on file Tobacco Use Smoking status: Never Smokeless tobacco: Former Vaping Use Vaping status: Former Substance and Sexual Activity Alcohol use: Not Currently Drug use: Never Sexual activity: Not on file Other Topics Concern Not on file Social History Narrative Not on file Social Drivers of Health Financial Resource Strain: Not on file Food Insecurity: Not on file Transportation Needs: Not on file Physical Activity: Not on file Stress: Not on file Social Connections: Not on file Intimate Partner Violence: Not At Risk (06/22/2024) Humiliation, Afraid, Rape, and Kick questionnaire Fear of Current or Ex-Partner: No Emotionally Abused: No Physically Abused: No Sexually Abused: No Housing Stability: Not on file Family History: No family history on file. Medications Prior to Admission: Medications Prior to Admission Medication Sig Dispense Refill Last Dose/Taking MV-Min-Fe Fum-FA-DHA ( 1 PO) Take 1 tablet by mouth daily. Past Week REVIEW OF SYSTEMS: Review of Systems Constitutional: Negative for chills and fever. Eyes: Negative for visual disturbance. Respiratory: Negative for shortness of breath. Cardiovascular: Negative for chest pain. Gastrointestinal: Negative for abdominal pain, nausea and vomiting. Genitourinary: Negative for dysuria, hematuria and vaginal bleeding. Neurological: Negative for headaches. Psychiatric/Behavioral: Negative for confusion. Labs: CBC, CMP, Blood Type and Screen, PT/INR/Fibrinogen PHYSICAL EXAM: Vitals: 06/22/24 1849 06/22/24 1850 06/22/24 1855 BP: 124/67 Pulse: 114 115 108 Resp: 16 Temp: 36.8 ?C (98.3 ?F) TempSrc: Oral SpO2: 98% Weight: 143 lb (64.9 kg) Height: 5' 5 (1.651 m) General appearance: awake, alert, cooperative, no apparent distress, and appears stated age Neurologic: Awake, alert, oriented to name, place and time. Lungs: No increased work of breathing, good air exchange Abdomen: Soft, non tender, gravid, consistent with her gestational age Sterile Speculum Exam: Membranes: Intact HSV Lesions: absent Cervix: 2/80/-3 Contraction frequency: Q7 min, irregular Fetus: EFW: Completed in ED in 06/22: EFW 1344g 23% Presentation: Vertex by U/S NST: Reactive genetics: CYSTIC FIBROSIS: Negative SMA: Negative FRAGILE X: Negative CELL FREE DNA: Negative Hx of PTL: Celestone given previously: Yes ASSESSMENT AND PLAN: LABOR DELIVERY ??? SCD's ONLY (labor through ambulation) SCD's PLUS Prophylactic Anticoagulation until discharge SCD's PLUS Prophylactic Anticoagulation for 6 weeks SCD's PLUS Therapeutic Anticoagulation for 6 weeks Vaginal Delivery [] BMI >= 40 kg/m2 Delivery All patients Vaginal Delivery [] BMI >= 40 kg/m2 AND [] Antepartum hospitalization >= 72 hours within the past month Delivery 1 Major Risk Factor: [] BMI >= 35 kg/m2 [] Low Risk Thrombophilia [] PPH+RBCs, IR, or operation [] Infection+Antibiotics [] Antepartum hospitalization >= 72 wing (more content not included)... [facility] 06-22-2024 History and physical note Department of Maternal Medicine History and Physical CHIEF COMPLAINT: contractions HISTORY OF PRESENT ILLNESS: The patient is a 23 y.o. female at 29w4d. OB History 1 Para 0 Term 0 0 AB 0 Living 0 SAB 0 IAB 0 Ectopic 0 Multiple 0 Live Births 0 Patient presents with a chief complaint as above and is being admitted for labor. Transport: Yes Estimated Due Date: Estimated Date of Delivery: 09/03/24 CARE: Complications: Anxiety PAST OB HISTORY: OB History 1 Para 0 Term 0 0 AB 0 Living 0 SAB 0 IAB 0 Ectopic 0 Multiple 0 Live Births 0 Detailed OB History Current Past Medical History: History reviewed. No pertinent past medical history. Past Surgical History: Past Surgical History: Procedure Laterality Date WISDOM TOOTH EXTRACTION 18 years old Allergies: Clonidine and Paxil [paroxetine] Social History: Social History Socioeconomic History Marital status: Single Spouse name: Not on file Number of children: Not on file Years of education: Not on file Highest education level: Not on file Occupational History Not on file Tobacco Use Smoking status: Never Smokeless tobacco: Former Vaping Use Vaping status: Former Substance and Sexual Activity Alcohol use: Not Currently Drug use: Never Sexual activity: Not on file Other Topics Concern Not on file Social History Narrative Not on file Social Drivers of Health Financial Resource Strain: Not on file Food Insecurity: Not on file Transportation Needs: Not on file Physical Activity: Not on file Stress: Not on file Social Connections: Not on file Intimate Partner Violence: Not At Risk (06/22/2024) Humiliation, Afraid, Rape, and Kick questionnaire Fear of Current or Ex-Partner: No Emotionally Abused: No Physically Abused: No Sexually Abused: No Housing Stability: Not on file Family History: No family history on file. Medications Prior to Admission: Medications Prior to Admission Medication Sig Dispense Refill Last Dose/Taking MV-Min-Fe Fum-FA-DHA ( 1 PO) Take 1 tablet by mouth daily. Past Week REVIEW OF SYSTEMS: Review of Systems Constitutional: Negative for chills and fever. Eyes: Negative for visual disturbance. Respiratory: Negative for shortness of breath. Cardiovascular: Negative for chest pain. Gastrointestinal: Negative for abdominal pain, nausea and vomiting. Genitourinary: Negative for dysuria, hematuria and vaginal bleeding. Neurological: Negative for headaches. Psychiatric/Behavioral: Negative for confusion. Labs: CBC, CMP, Blood Type and Screen, PT/INR/Fibrinogen PHYSICAL EXAM: Vitals: 06/22/24 1849 06/22/24 1850 06/22/24 1855 BP: 124/67 Pulse: 114 115 108 Resp: 16 Temp: 36.8 C (98.3 F) TempSrc: Oral SpO2: 98% Weight: 143 lb (64.9 kg) Height: 5' 5 (1.651 m) General appearance: awake, alert, cooperative, no apparent distress, and appears stated age Neurologic: Awake, alert, oriented to name, place and time. Lungs: No increased work of breathing, good air exchange Abdomen: Soft, non tender, gravid, consistent with her gestational age Sterile Speculum Exam: Membranes: Intact HSV Lesions: absent Cervix: 2/80/-3 Contraction frequency: Q7 min, irregular Fetus: EFW: Completed in ED in 06/22: EFW 1344g 23% Presentation: Vertex by U/S NST: Reactive genetics: CYSTIC FIBROSIS: Negative SMA: Negative FRAGILE X: Negative CELL FREE DNA: Negative Hx of PTL: Celestone given previously: Yes ASSESSMENT AND PLAN: LABOR DELIVERY ??? SCD's ONLY (labor through ambulation) SCD's PLUS Prophylactic Anticoagulation until discharge SCD's PLUS Prophylactic Anticoagulation for 6 weeks SCD's PLUS Therapeutic Anticoagulation for 6 weeks Vaginal Delivery [] BMI >= 40 kg/m2 Delivery All patients Vaginal Delivery [] BMI >= 40 kg/m2 AND [] Antepartum hospitalization >= 72 hours within the past month Delivery 1 Major Risk Factor: [] BMI >= 35 kg/m2 [] Low Risk Thrombophilia [] PPH+RBCs, IR, or operation [] Infection+Antibiotics [] Antepartum hospitalization >= 72 hours within the past month [] PMH: Sickle Cell, SLE, Cardiac Dz, Active IBD, Active Cancer, Nephrotic Syndrome OR 2 Minor Risk Factors: [] Multiple gestation [] Age > 40 [] PPH >= 1,000cc [] (+)FMH of VTE [] Smoker [] Preeclampsia [] BMI >= 40 kg/m2 AND [] Low Risk Thrombophilia OR ANY OF THE FOLLOWING: [] High Risk Thrombophilia without prior VTE [] Low Risk Thrombophilia with (+)FMH of VTE [] Any single prior VTE ANY OF THE FOLLOWING: [] Already on LMWH/UFH [] Multiple prior VTE [] High Risk Thrombophilia with prior VTE Low Risk Thrombophilia: FVL (heterozygous), Prothrombin (heterozygous), Protein C, Protein S High Risk Thrombophilia: FVL (homozygous), Prothrombin (homozygous), FVL+Prothrombin (heterozygous), Antithrombin III, APLS VTE Prophylaxis: Not Indicated Admission: Admit to Antepartum (PNU) FHR: Category 1, heart monitoring CEFM Labs: GBS collected GC/CT collected Urine collected FFN not obtained Type&Screen collected Serum Labs CBC, CMP, PT/INR, Fibrinogen Consults: MFM and Neonatology Imaging: Indicated/ordered AM Growth US Diet: CLD Testing: TBD Timing and Route of Delivery: TBD Medications: Neuroprotection Indicated/ordered Tocolysis Indicated/ordered Antibiotics Indicated/Ordered Steroids: Betamethasone - indicated and ordered Labor -Patient with history of contractions secondary to UTI one month prior. Was noted to be 1 cm dilated at that time and given BMZ x 2 06/03-06/04 -Patient represented to OSH for concern for regular contractions q5 min duration that were painful. She was initially noted to be tight /-3 and given terbutaline, IR procardia x1, magnesium sulfate therapy. Contractions persisted irregularly and was transferred for higher level of care -On initial exam on arrival, patient was comfortable appearing, contractions irregular q1-7 with cervical exam /-3 -PCN started for GBS prophylaxis -Decision made for rescue BMZ and tocolysis with procardia 10mg IR q 10 min for 3 doses followed by 20mg q4-6 hours for 48 hours -Magnesium sulfate continued for neuroprotection -Will plan for formal growth and anatomy US in AM -Neonatology to be consulted for patient -Maintain CLD and CEFM as current Anxiety -No current medications IUP @ 29w4d - Dating by LMP consistent with 9w3d US - Cephalic on 06/22 - Monitoring: CEFM - Diet: CLD - BMZ x2 ob 06/03-06/04 rBMZ on 06/[address] Roca, who agrees with plan. Malu Adams MD 06/22/2024, 8:11 PM Cc: Leatha Samayoa MD Cosigned by Juliet Roca MD at 06/23/2024 1:47 PM EST Associated attestation - Juliet Roca MD - 06/23/2024 1:47 PM EST Attending Supervising Physician's Attestation Statement This patient was admitted overnight while I was impregnation operator. I discussed the assessment and management with the resident physician. I reviewed and agree with the findings and plan as documented in the note. Transfer for PTL. Agree with procardia, mag, BMZ and GBS prophylaxis. Juliet Roca MD documented in this encounter [facility] 06-21-2024 Note Discharge Instructio ns Given Worsening The following Patient Education Materials have been given to the patient: ~~ EducationMaterial [facility] 06-21-2024 Hospital Discharge instructions Follow Up Care 06/21/2024 16:35:03 With:Anika Bob Address: [address], [address] [address]- Business (1) When:06/23/2024 Comments:Call for any problems.Call for fever > 100.5 FCall for severe abdominal painCall physician if symptoms worsenReturn for decreased movementCall DrGhanshyam for more than 3 contractions in an hourReturn if ruptured membranes or vaginal bleedingPelvic restPick up prescription for antibiotic in am at [facility] current appt scheduled for SundayJun 23. [facility] 06-21-2024 Evaluation + Plan note Diagnostic Tests PendingUrine Culture 06/21/24 [facility] 06-13-2024 Evaluation + Plan note Diagnostic Tests PendingRPR with Conf Rfx 06/13/24 [facility] 06-06-2024 Note History and Physical HOSPITAL REGULATIONS: All Positive and Important Negative Findings Shall Be Recorded DATE ADMITTED: 06/03/2024 ADMITTING DIAGNOSIS: Intrauterine at 27 weeks gestation, premature labor, probable urinary tract infection. HISTORY OF PRESENT ILLNESS: The patient is a 23-year-old 1, para 0, AB 0 white female who conceived with the help of ovulation induction agents with a due date of 09/03/2024. She presents having complained of irregular contractions basically all day. She was told to come in early in the morning around 10:00 or 11:00 from the office. She arrived in the evening with significant contractions every 2 to 4 minutes, anywhere from 20 to 40 seconds. Her urinalysis was found to be 1+ protein, 3+ ketones, 500 leukocyte esterase, 3+ bacteria, and sperm present. Her cervix was found a tight 1 cm and 25% and -2 station vertex. Her being a primigravid with cervical change from expected baseline, she was admitted for observation. PHYSICAL EXAMINATION: GENERAL: The physical examination at the time revealed the patient in mild distress with contractions. VITAL SIGNS: Afebrile, pulse 107, respirations 18, blood pressure 122/64. HEAD AND E.E.N.T.: Normocephalic. Extraocular muscles intact. Pupils equal and responsive to light and accommodation. Nose and throat clear. NECK: Without mass, without thyromegaly. LUNGS: Clear to auscultation and percussion. HEART: Regular rhythm. BREASTS: Nonpathologic. ABDOMEN: Soft. Vertex presentation. Reactive nonstress test. PELVIC: Uterus soft, in between irregular contractions, lasting anywhere from 20 to 40 seconds. EXTREMITIES: Negative for clubbing or cyanosis. Negative for edema. IMPRESSION: Intrauterine with probable urinary tract infection with premature labor causing cervical dilatation. PLAN: Hydration, treatment of urinary tract infection with Ancef, tocolysis with terbutaline initially. Administration of betamethasone and observation. Anika Bob M.D. james Dictated: 06/05/2024 [id number] Transcribed: 06/05/2024 [facility] Comment on above: Result Comment: Elec tronically Signed By: Paulino CORRIGAN, Anika Gomez\.br\Date and Time Signed: 06/06/24 08:54 EST 06-05-2024 Note Discharge Instructio ns Given Worsening The following Patient Education Materials have been given to the patient: ~~ EducationMaterial [facility] 06-03-2024 Hospital Discharge instructions Follow Up Care 06/03/2024 20:09:12 With:Dr. Bob [phone] Address:Unknown When:3 to 4 days Comments:Call for any problems.Call physician for heavy vaginal bleedingCall physician if symptoms worsenReturn for contractions closer, longer, harderReturn for decreased movement [facility] 10-10-2023 History of Present illness Narrative Subjective [...] up as before documented in this encounter [facility] Work Phone: 09-22-2023 Evaluation + Plan note Diagnostic Tests PendingAnti-Mullerian Hormone (AMH) 09/22/23FSH and LH 09/22/23Insulin Level Total 09/22/23 [facility] 08-21-2023 History of Present illness [...] Procedure Laterality Date OTHER SURGICAL HISTORY 03/03/2022 Albin tooth extraction Review of Systems: Constitutional: No [...] Dose Status busPIRone (Buspar) 5 mg tablet [id number] No Take by mouth 3 times a day as needed. Historical Provider, Taking Active citalopram (CeleXA) 40 mg tablet [id number] Take 1 tablet (40 mg) by mouth once daily. MYKE Amaya Active nitrofurantoin (Macrodantin) 100 mg capsule [id number] No take 1 capsule twice a day for 3 to 7 days Historical Provider, Taking Active omeprazole (PriLOSEC) [address] capsule [id number] No Take 1 capsule (20 mg) by [...] 08/21/2024 Order Specific Question: Release result to [facility] Answer: Immediate [1] Problem List Items Addressed [...] for annual exam. documented in this encounter [facility] Work Phone: 06-19-2023 Emergency department Note HPI [...] Procedure Laterality Date OTHER SURGICAL HISTORY 03/03/2022 Albin tooth extraction Family History Problem Relation Name [...] López PA-C 06/19/231810 documented in this encounter [facility] Work Phone: 06-19-2023 Physician Emergency department Note [...] Procedure Laterality Date OTHER SURGICAL HISTORY 03/03/2022 Albin tooth extraction Family History Problem Relation Name [...] health. Procedure Procedures Bela López PA-C 06/19/231810 [facility] Work Phone: 05-18-2023 History of Present illness [...] up as before documented in this encounter [facility] Work Phone: 04-23-2023 History of Present illness Narrative Subjective Patient ID: Luz iHnojosa is a 22 y.o. female who presents [...] mon with PCP. documented in this encounter [facility] Work Phone: 04-11-2023 Note Send Summary: Discharge Summary Providers: Provider RoleProvider Name Bautista Foy Logeswari PrimaryConley, Amy PrimaryMcArdle, Joyce Note Recipients: Jordyn Thakur, [facility] [phone] [Preferred] Discharge: Summary: Admission Date: .09-Apr-2023 10:40:00 Discharge Date: 11-Apr-2023 Attending Physician at Discharge: Bautista villanueva Admission Reason: Flank pain Final Discharge Diagnoses: Pyelonephritis, acute kidney injury Procedures: none Vital Signs: T PRBPMAPSpO2 [id number]/664476% Date/Time04/11 8: 8: 8: 8: 16: 8:00 Range(36.6C - 37.6C ) (70 - 81 ) (16 - 18 ) (107 - 122 )/ (70 - 84 ) (82 - 85 ) (98% - 99% ) Highest temp of 37.6 C was recorded at 04/11 0:00 Date: Weight/Scale Type:Height: 09-Apr-2023 15:5454 kg / hlb713.1 cm Physical Exam: General: Not in acute [...] if there are errors there due to sales support assistant. Bautista Villanueva Hospitalist Discharge Information: and Continuing [...] Last Updated: 11-Apr-2023 09:36 by Bautista Villanueva) [facility] 04-11-2023 Hospital Discharge instructions Activity:activity as tolerated. May shower. May drive.Follow Up Appointment 1:Physician/Dept/Service: Primary care provider Jordyn Maurer for Referral: Pyelonephritis, acute kidney injuryCall to Schedule in: [address] Vqgytrrn: She will call and make her own appointment. [facility] 04-09-2023 Note History of Present [...] are negative Objective: Objective Information: T PRBPMAPSpO2 [id number]/8897% Date/Time04/09 10: 14:12918 14:12918 14:12918 14:12 Range(36.5C - 36.5C ) (69 - 81 ) (16 - 16 ) (123 - 133 )/ (88 - 96 ) (97% - 97% ) Pain reported at 04/09 10:48: 3 = Mild T PRBPMAPSpO2 [id number]/[id number]% Date/Time04/09 16: 16: 16: 16: 16: 16:00 [...] continue maintenance flu (more content not included)... [facility] 10-03-2022 History of Present illness Narrative Subjective Patient ID: Luz Hinojosa is a 21 y.o. female who presents for Follow-up (Pt co sore throat was tested foor strep in er was negative but no better). Virtual visit PT C/O sore throat ,slight cough FOR 4 days SEVERITY:MILD CHARACTERISTIC: acute EXACERBATION FACTOR: none RELIEVING FACTOR: none ASSOCIATED SYMPTOMS: MEJIA, NO FEVER NO CHILL, PRIOR TX: ibuprofen Review of Systems Constitutional: Negative. Negative for chills and fever. HENT: Positive for sore throat. Negative for congestion. Eyes: Negative. Negative for discharge. Respiratory: Positive for cough. Negative for shortness of breath and wheezing. Cardiovascular: Negative. Negative for chest pain, palpitations and leg swelling. Gastrointestinal: Negative. Negative for abdominal distention, abdominal pain, constipation, diarrhea, nausea and vomiting. Endocrine: Negative. Genitourinary: Negative. Negative for dysuria and urgency. Musculoskeletal: Negative. Negative for back pain, joint swelling and neck stiffness. Skin: Negative. Negative for rash. Allergic/Immunologic: Negative. Negative for immunocompromised state. Neurological: Positive for headaches. Negative for light-headedness and numbness. Hematological: Negative. Negative for adenopathy. Psychiatric/Behavioral: Negative. Negative for agitation, behavioral problems and confusion. All other systems reviewed and are negative. Objective Physical Exam There were no vitals taken for this visit. Hemoglobin A1C Date/Time Value Ref Range Status 03/10/2022 11:23 AM 5.2 % Final Comment: Diagnosis of Diabetes-Adults Non-Diabetic: < or = 5.6% Increased risk for developing diabetes: 5.7-6.4% Diagnostic of diabetes: > or = 6.5% . Monitoring of Diabetes Age (y) Therapeutic Goal (%) Adults: >18 <7.0 Pediatrics: 13-18 <7.5 7-12 <8.0 0- 6 7.5-8.5 [employer]. Diabetes Care 33(S1), Jul 2009. Assessment/Plan Problem List Items Addressed This Visit None documented in this encounter [facility] Work Phone: 04-25-2022 History of Present illness Narrative [facility] [address] [facility] [address] [facility] [id number] Chief Complaint Patient presents with Left Hand [...] Strength Wrist extension: 5/5 Wrist flexion: 5/5 Installation Supervisor: 3/5 Other Erythema: absent Scars: absent [...] medications as needed. documented in this encounter [facility] 03-02-2022 History of Present illness Narrative INCONSISTENT SLEEP AT NIGHT SEVERAL TIMES / WEEK . WAKES UP WITH COLD SWEATS., AND DIZZINESS.0N AND OFF. MISSED PERIOD , LAST ONE WAS 2 MONTHS AGO. STOPPED GETTING DEPO SHOT ALMOST 2.5 MONTHS AGO. [facility] Work Phone: 01-01-2022 History of Present illness Narrative ANXIETY , NO PANIC ATTACKS SINCE LAST VISIT.. HASN'T BEEN TAKING THE PRN BUSPAR . CONTROL TX WAS STOPPED SEVERAL MONTHS AGO BUT MENSES ARE NOT BACK MONTHLY..WEIGHT GAIN. [facility] Work Phone: 11-20-2021 History of Present illness Narrative Presents today for C/O SPOTTING FOR SEVERAL DAYS modifying factors consists of STOPPED THE DEPO SHOT WAS NOVEMBER 2021. SHE HAS NOT RESUMED HER PERIODS. NEGATIVE HOME TEST associated symptoms consist of CRAMPING ON/OFF prior treatment consists of medication NONE [facility] Work Phone: 03-03-2021 History of Present illness Narrative Presents today TO ESTABLISH NEW. C/O ANXIETY SEVERAL DAYS PPER WEEK X SEVERAL YEARS THAT HAS RECENTLY INCREASED OVER THE PAST 1 YEAR modifying factors consists of PANIC ATTACKS ON/OFF associated symptoms consist of DENIES DEPRESSION OR SUICIDAL IDEATION prior treatment consists of medication DOES NOT REMEMBER THE NAMEGERD- STABLE. MED REFILL [facility] Work Phone: Evaluation note Diagnosis Closed nondisplaced fracture of distal phalanx of left middle finger, initial encounter- [facility] Vaginal yeast infection- Primary Candidiasis of vulva and vagina documented in this encounter [facility] Work Phone: Evaluation note* Diagnosis H/O urinary tract infection- Primary Generalized anxiety disorder with panic attacks documented in this encounter [facility] Work Phone: Evaluation note* Diagnosis Urinary frequency- Primary Urinary tract infection with hematuria, site unspecified Generalized anxiety disorder with panic attacks Gastroesophageal reflux disease without esophagitis Esophageal reflux documented in this encounter [facility] Work Phone: Evaluation note* Diagnosis Urinary tract infection without hematuria, site unspecified- Primary documented in this encounter [facility] Work Phone: Evaluation note* Diagnosis Family planning counseling- Primary Other general counseling and advice for contraceptive management documented in this encounter [facility] Work Phone: Evaluation note* Diagnosis Generalized anxiety disorder with panic attacks- Primary documented in this encounter [facility] Work Phone: Evaluation note* Diagnosis Nausea- Primary Nausea alone Nasal congestion Other diseases of nasal cavity and sinuses Acute non-recurrent sinusitis, unspecified location documented in this encounter [facility] Work Phone: Evaluation note* Diagnosis Generalized anxiety disorder with panic attacks documented in this encounter [facility] Work Phone: Evaluation note* Diagnosis Sore throat- Primary Acute pharyngitis documented in this encounter [facility] Work Phone: Evaluation note* Diagnosis contractions- Primary documented in [facility] encounter [facility]* Diagnosis Pharyngitis, unspecified etiology- Primary documented in this encounter [facility] Work Phone: History of Present illness Narrative* Jordyn Thakur, CNA INSTRUCTOR-FACETER - 10/20/2022 3:00 PM EDT Subjective Patient [...] Follow up as before [facility]: [facility] of Present illness Narrative* [...] 1 MONTH MED CHECK documented in this [facility] Work Phone: History of Present illness [...] Follow up as before [facility]: [facility] of Present illness Narrative* Jordyn Thakur, CNA INSTRUCTOR-FACETER - 05/06/2024 3:40 PM EDT Subjective Patient [...] PROCEDURE REFERRAL WILL CALL [facility] course Narrative No data [facility] for [facility] No data available for this section [facility] No data available for this section [facility] Consultation (Routine) - Pending Review Specialty Diagnoses / Procedures Referred By Contac t Referred To Contact Obstetrics and Gynecology / Urology Diagnoses Urinary frequency Jordyn Thakur, CNA INSTRUCTOR-FACETER [address] [place] [address] Referral ID Status Reason Start Date Expiration Date Visits Requested Visits Authorized [id number] Pending Review Specialty Services Required 05/17/2024 1 1 [facility] Work Phone: Reason for referral (narrative)* Consultation (Routine) - Authorized Specialty Diagnoses / Procedures Referred By Claritza t Referred To Contact Primary Care Procedures Follow Up In Primary Care Dominick Lewis MD [address] [place] [address] Referral ID Status Reason Start Date Expiration Date V isits Requested Visits Authorized [id number] Authorized 10/03/2022 04/01/2023 1 1 [facility] Work Phone: Summary Purpose Family History [...] Status:Active Advance Directives No Advanced Directives Records Found Date Activated Date Inactivated Comments 06/22/2024 8:16 PM 06/25/2024 4:05 PM Chief Complaint EST NEW; C/O ANXIETYHAVING PROBLEMS [...] anxiety disorder with panic attacks Jordyn Thakur, CNA INSTRUCTOR-FACETER [address] [place] [address] Referral ID Status Reason Start Date Expiration Date Visits Re quested Visits Authorized [id number] Closed 1 1 Additional Source Comments INFORMATION SOURCE (unrecogn ized section and content) DATE CREATED AUTHOR 10/28/2018 [facility] DATE CREATED AUTHOR AUTHOR'S ORGANIZ ATION 04/08/2019 [facility] DATE CREATED AUTHOR AUTHOR'S ORGANIZ ATION 10/29/2021 [facility] DATE CREATED AUTHOR AUTHOR'S ORGANIZ ATION 06/11/2022 [facility] DATE CREATED AUTHOR AUTHOR'S ORGANIZ ATION 08/04/2022 [facility] DATE CREATED AUTHOR AUTHOR'S ORGANIZ ATION 04/02/2023 [facility] DATE CREATED AUTHOR AUTHOR'S ORGANIZ ATION 04/16/2023 [facility] DATE CREATED AUTHOR AUTHOR'S ORGANIZ ATION 05/09/2023 [facility] DATE CREATED AUTHOR AUTHOR'S ORGANIZ ATION 09/03/2023 [facility] DATE CREATED AUTHOR AUTHOR'S ORGANIZ ATION 11/02/2023 [facility] DATE CREATED AUTHOR AUTHOR'S ORGANIZ ATION 01/11/2024 [facility] DATE CREATED AUTHOR AUTHOR'S ORGANIZ ATION 01/13/[address] [facility] DATE CREATED AUTHOR AUTHOR'S ORGANIZ ATION 02/08/2024 [facility] CREATED AUTHOR AUTHOR'S ORGANIZ ATION 02/09/2024 [facility] DATE CREATED AUTHOR AUTHOR'S ORGANIZ ATION 02/10/2024 [facility] DATE CREATED AUTHOR AUTHOR'S ORGANIZ ATION 02/11/2024 [facility] DATE CREATED AUTHOR AUTHOR'S ORGANIZ ATION 05/08/2024 [facility] DATE CREATED AUTHOR AUTHOR'S ORGANIZ ATION 06/06/2024 [facility] DATE CREATED AUTHOR AUTHOR'S ORGANIZ ATION 06/16/2024 [facility] DATE CREATED AUTHOR AUTHOR'S ORGANIZ ATION 06/17/2024 [facility] DATE CREATED AUTHOR AUTHOR'S ORGANIZ ATION 06/18/2024 [facility] DATE CREATED AUTHOR AUTHOR'S ORGANIZ ATION 06/20/2024 [facility] DATE CREATED AUTHOR AUTHOR'S ORGANIZ ATION 06/21/2024 [facility] DATE CREATED AUTHOR AUTHOR'S ORGANIZ ATION 06/22/2024 [facility] DATE CREATED AUTHOR AUTHOR'S ORGANIZ ATION 06/23/2024 [facility] DATE CREATED AUTHOR AUTHOR'S ORGANIZ ATION 06/25/2024 [facility] DATE CREATED AUTHOR AUTHOR'S ORGANIZ ATION 06/26/2024 [facility] DATE CREATED AUTHOR AUTHOR'S ORGANIZ ATION 06/26/2024 [facility] DATE CREATED AUTHOR AUTHOR'S ORGANIZ ATION 08/22/2024 [facility] <item><item><item><item><item> Privacy Markings (unrecogniz [...] DRY COUGH, AND NAUSEA SINCE YESTERDAY. CURRENTLY Reason Comments Laboring Transfer from [facility] Specialty Diagnoses / Procedures Referred By Claritza macias Referred To Contact Diagnoses contractions Procedures . Juliet Roca MD [address] [place] [address] Phone: tel: fax: [facility] [address] [place] [address] Phone: tel: Referral ID Status Reason Start Date Expiration Date Visits Re quested Visits Authorized [id number] 1 1 Reason Comments Follow-up Pt co sore throat wa s tested foor strep in er was negative but no better has headache Care Teams (unrecognized sec tion and content) Public Area Attendant Relationship Specialty Start Date End Date Jordyn Ramirez, FACETER [address] [place] [address] PCP - General Nurse Practitioner 04/25/22 Public Area Attendant Relationship Specialty Start Date End Date Jordyn Thakur, CNA INSTRUCTOR-FACETER [address] [place] [address] PCP - General 03/03/22 Public Area Attendant Relationship Specialty Start Date End Date Jordyn Thakur, CNA INSTRUCTOR-FACETER [address] [place] [address] PCP - General 03/03/22 Jordyn Thakur, CNA INSTRUCTOR-FACETER [address] [place] [address] PCP - [facility] Medicaid PCP 10/21/22 Claudia Quick, hydrologistCashier Assistant 04/12/23 Public Area Attendant Relationship Specialty Start Date End Date Jordyn Thakur, CNA INSTRUCTOR-FACETER [address] [place] [address] PCP - General 03/03/22 Jordyn Thakur, CNA INSTRUCTOR-FACETER [address] [place] [address] PCP - [facility] Medicaid PCP 10/21/22 Claudia Quick, hydrologistCashier Assistant 04/12/23 Public Area Attendant Relationship Specialty Start Date End Date Jordyn Thakur, CNA INSTRUCTOR-FACETER [address] [place] [address] PCP - General 03/03/22 Jordyn Thakur, CNA INSTRUCTOR-FACETER [address] [place] [address] PCP - [facility] Medicaid PCP 10/21/22 Claudia Quick, hydrologistCashier Assistant 04/12/23 Public Area Attendant Relationship Specialty Start Date End Date Jordyn Thakur, CNA INSTRUCTOR-FACETER [address] [place] [address] PCP - General 03/03/22 Jordyn Thakur, CNA INSTRUCTOR-FACETER [address] [place] [address] PCP - [facility] Medicaid PCP 10/21/22 Public Area Attendant Relationship Specialty Start Date End Date Jordyn Thakur, CNA INSTRUCTOR-FACETER [address] [place] [address] PCP - General 03/03/22 Jordyn Thakur, CNA INSTRUCTOR-FACETER [address] [place] [address] PCP - [facility] Medicaid PCP 10/21/22 Public Area Attendant Relationship Specialty Start Date End Date Jordyn Thakur, CNA INSTRUCTOR-FACETER [address] [place] [address] PCP - General 03/03/22 Jordyn Thakur, CNA INSTRUCTOR-FACETER [address] [place] [address] [facility] Medicaid PCP 10/21/22 Public Area Attendant Relationship Specialty Start Date End Date Jordyn Thakur, CNA INSTRUCTOR-FACETER [address] [place] [address] PCP - General 03/03/22 Jordyn Thakur, CNA INSTRUCTOR-FACETER [address] [place] [address] PCP - [facility] Medicaid PCP 10/21/22 Public Area Attendant Relationship Specialty Start Date End Date Jordyn Thakur, CNA INSTRUCTOR-FACETER [address] [place] [address] PCP - General 03/03/22 Jordyn Thakur, CNA INSTRUCTOR-FACETER [address] [place] [address] PCP [facility] Medicaid PCP 01/21/24 Public Area Attendant Relationship Specialty Start Date End Date Jordyn Thakur, CNA INSTRUCTOR-FACETER [address] [place] [address] PCP - General 03/03/22 Scheduled Active and Recently Administ ered Medications (unrecognized section and content) Medication Order 06/17/2023 06/18/2023 06/19/2023 cephalexin (Keflex) capsule 500 mg (COMPLETED) 500 mg, oral, Once, On Sun06/19/23 at 1805, For 1 dose, Suspected Indication (Select all that apply): Urinary Tract Infection, Type of Therapy: Definitive, No Cultures, Type of Urinary Tract Infection: Uncomplicated 182 (Given - Provid er: Kusum Villegas RN) Scheduled Medication Order 06/23/2024 06/24/2024 06/25/2024 ferrous sulfate tablet 325 mg 325 mg, Oral, 2 times daily with meals, First dose on Sun06/24/24 at 0800, , Start if Hgb less than 10. Hold oral ferrous sulfate dose if receiving IV iron sucrose (Venofer) 0800 (Not Given - Provider: Lindy Lindsay RN - Reason: Order parameters not met)1700 (Not Given - Provider: Lindy Lindsay RN - Reason: Order parameters not met) 0800 (Not Given - Provider: Fatoumata Cutler RN - Reason: Order parameters not met) NIFEdipine (Procardia) capsule 20 mg (CANCELED)(Linked Group 1) 20 mg, Oral, Every 6 hours, First dose on Sun06/22/24 at 2315, Hold if BP <90/60 0000 (Not Given - Provider: Tasneem Medrano RN - Reason: Other - Comment: Per Dr. Adams, start 6 hours after last 10 mg IR dose)0609 (Given - Provider: Tasneem Medrano, ROXI)1150 (Given - Provider: Amy Holder, ROXI) penicillin G potassium IVPB 2.5 million units in dextrose 5 % 100 mL (CANCELED)(Linked Group 2) 2.5 Million Units, IntraVENous, Administer over 30 Minutes, Every 4 hours, First dose on Sun06/23/24 at 0030, Begin 4 hours after loading dose. Continue until delivery. premix bag, Suspected Indication (Select all that apply): GBS Prophylaxis 0244 (New Bag - Provider: Tasneem Medrano RN)0314 (Stopped - Provider: Tasneem Medrano RN)0607 (New Bag - Provider: Tasneem Medrano RN)0637 (Stopped - Provider: Tasneem Medrano, ROXI)1004 (New Bag - Provider: Amy Holder RN)1034 (Due: Stopped - Provider: Amy Holder RN)1400 (New Bag - Provider: Amy Holder, ROXI)1430 (Stopped - Provider: Tanika Whitmore, ROXI)1833 (New Bag - Provider: Alyce Márquez RN)1903 (Stopped - Provider: Judie Ochoa, ROXI)2230 (Canceled Entry - Provider: Luis Diaz, ROXI) potassium chloride (Klor-Con) packet 40 mEq (COMPLETED) 40 mEq, Oral, Once, On Sun06/23/24 at 0315, For 1 dose, Dissolve each packet in 4 ounces of water = 5 mEq per 1 oz fluid., Indications: Hypokalemia 0606 (Given - Provider: Tasneem Medrano RN) sodium chloride 0.9% (NS) flush 10 mL (CANCELED) 10 mL, IntraVENous, Every 12 hours scheduled (2 times per day), First dose on Sun06/22/24 at 2100 1006 (Given - Provider: Amy Holder RN)2100 (Not Given - Provider: Judie Ochoa, ROXI - Reason: IV Fluids Infusing) Continuous Medication Order 06/23/2024 06/24/2024 06/25/2024 lactated Ringer's infusion (CANCELED) 100 mL/hr, IntraVENous, Continuous, Starting on Sun06/23/24 at 1615 1545 (Rate/Dose Change - Provider: Tanika Whitmore RN - Comment: prior to epidural)1631 (Rate/Dose Change - Provider: Alyce Márquez RN)1999 (Stopped - Provider: Judie Ochoa RN) magnesium sulfate 20 GM/500ML infusion (CANCELED) 1,000 mg/hr (25 mL/hr), IntraVENous, Administer over 12 Hours, Continuous, Starting on Sun06/23/24 at 1600, For 3 days, Pre-Infusion: Assess baseline vital signs (blood pressure, pulse, pulse oximetry, respirations, and temperature), breath sounds, strict intake and output, neurologic status (deep tendon reflexes, presence or absence of clonus, level of consciousness (LOC), presence of headaches/visual disturbances, presence/absence of epigastric pain, and if applicable Heart Rate/Contractions (continuous monitoring). Loading Dose/Infusion: - Stay with the patient during the loading dose and the first hour of the infusion to monitor for adverse reactions. - Continuously monitor the patient's pulse oximetry. - Monitor the patient's vital signs, deep tendon reflexes, level of consciousness every 15 minutes for the first hour after the start of the loading dose, then every 30 minutes for 1 hour, then every 4 hours thereafter unless more frequent assessments are warranted based on the patient's condition. Notify care provider immediately of absent deep tendon reflexes, a urine output of less than 30 mL/hour, respirations of less than 10 breaths/minute, or an oxygen saturation level of less than 95% Grams to milligrams conversion table: 1 gram = 1000 mg 2 grams = 2000 mg 4 grams = 4000 mg 6 grams = 6000 mg 20 grams = 20,000 mg, Indications: Neuroprotection 1545 (New Bag - Provider: Tanika Whitmore RN)1900 (Rate/Dose Verify - Provider: Judie Ochoa RN)1955 (Stopped - Provider: Judie Ochoa RN) 0345 (Due: Stopped - Provider: Tanika Whitmore RN) oxytocin (Pitocin) 30 units in 500 mL infusion 30 Units, IntraVENous, at 30 mL/hr, Continuous, Starting on Sun06/23/24 at 2115, Post- use ONLY after delivery of baby/ excessive bleeding/ uterine atony. Bag 1 of 2: Bolus for bag to infuse at 999 ml/hour for 15 minutes (15 units in 250cc). After initial bolus then decrease rate to 250cc/hr for 1 hour. Then discontinue. 121 (Rate/Dose Change - Provider: Judie Ochoa RN)1956 (New Bag - Provider: Judie Ochoa RN) oxytocin (Pitocin) 30 units in 500 mL infusion 125 deshaun-units/min (125 mL/hr), IntraVENous, Continuous, Starting on Sun06/23/24 at 2115, For Immediate Post Use Only. Give after delivery of placenta and initial 30 unit bolus. Bag 2 of 2: 125cc/hr (125 mu/min) for an additional infusion of 500cc (30 units). 2119 (New Bag - Provider: Judie Ochoa RN) ropivacaine (Naropin) 0.2 % (OB) epidural infusion (CANCELED)(Linked Group 3) 10 mL/hr, Epidural, Continuous, Starting on Sun06/23/24 at 1615, Pre-Delivery, PCEA Basal Infusion 1635 (New Bag - Provider: Juan Rodriguez, CNA INSTRUCTOR - WIRE SPOOLER)2004 (Stopped - Provider: Judie Ochoa RN) PRN Medication Order 06/23/2024 06/24/2024 06/25/2024 acetaminophen (Tylenol) tablet 650 mg 650 mg, Oral, Every 6 hours PRN, other, pain (1-10), Starting on Sun06/23/24 at 2315, Give in addition to any other pain medication ordered at same time for any pain indication. Maximum dose of acetaminophen is 4000 mg from all sources in 24 hours. Alternate ibuprofen and acetaminophen every 3 hours. Give ibuprofen first in the sequence. 2325 (Given - Provider: Luis Diaz RN) 05 (Given - Provider: Odalis Zelaya RN)143 (Given - Provider: Lindy Lindsay RN)2009 (Given - Provider: Sarah Mata RN) benzocaine 20% containing (Dermoplast) spray Topical, As needed, pain, , Starting on Sun06/23/24 at 2315, , Apply to perineal area. Patient is capable and may self administer at bedside. 2325 (Given - Provider: Luis Diaz, ROXI) docusate sodium (Colace) capsule 100 mg 100 mg, Oral, 2 times daily PRN, constipation, Vaginal Delivery, Starting on Sun06/23/24 at 2315, Do not crush or break. 828 (Given - Provider: Lindy Lindsay, ROXI)2009 (Given - Provider: Sarah Mata RN) 834 (Given - Provider: Fatoumata Cutler RN) famotidine (Pepcid) tablet 20 mg 20 mg, Oral, 2 times daily PRN, heartburn, Starting on Sun06/23/24 at 2315, , Renal dose per pharmacy for peptic ulcer prophylaxis. ibuprofen tablet 600 mg 600 mg, Oral, Every 6 hours PRN, other, pain (1-10), Starting on Sun06/23/24 at 2135, Alternate ibuprofen and acetaminophen every 3 hours. Give ibuprofen first in the sequence. 2136 (Given - Provider: Judie Ochoa RN) lanolin (Lansinoh) cream Topical, As needed, dry skin, nipple discomfort, Starting on Sun06/23/24 at 2315, , Apply to affected area. ondansetron (Zofran) injection 4 mg(Linked Group 4) 4 mg, IntraVENous, Every 6 hours PRN, nausea, vomiting, Starting on 06/23/24 at 2315, 1st Line. Give IV if patient is unable to take orally. If inadequate response within 60 minutes, proceed to next-line agent or contact provider if no further options ordered. ondansetron ODT (Zofran-ODT) disintegrating tablet 4 mg(Linked Group 4) 4 mg, Oral, Every 8 hours PRN, nausea, vomiting, Starting on Sun06/23/24 at 2315, 1st Line. If inadequate response within 60 minutes, proceed to next-line agent or contact provider if no further options ordered. Patient should allow tablet to dissolve on tongue. Do not remove from blister pack until just before administering. witch blanco-glycerin (Tucks) pad Topical, As needed, hemorrhoids, For perineal pain or discomfort, Starting on Sun06/23/24 at 2315, , Apply to perineal area. Patient is capable and may self administer at bedside. 2326 (Given - Provider: Luis Diaz, RN) No Frequency Medication Order 06/23/2024 06/24/2024 06/25/2024 mineral oil liquid - Pyxis ADS Override Pull (COMPLETED) Starting on Sun06/23/24 at 1944, For 1 dose, Yonis Aponte: cabinet override 1946 (Given by Other - Provider: Judie Ochoa RN - Reason: Other) Linked Groups Order Group 1: NIFEdipine (Procardia) capsule 10 mg (COMPLETED) 10 mg, Oral, Every 10 min, First dose on Sun06/22/24 at 2245, For 3 doses, Hold if BP <90/60 Followed by NIFEdipine (Procardia) capsule 20 mg (CANCELED)Jump to med 20 mg, Oral, Every 6 hours, First dose on Sun06/22/24 at 2315, Hold if BP <90/60 Group 2: penicillin G potassium 5 Million Units in dextrose 5 % 100 mL IVPB Mini-Bag Plus (COMPLETED) 5 Million Units, IntraVENous, at 200 mL/hr, Administer over 30 Minutes, Once, On Sun06/22/24 at 2030, For 1 dose, Mini-Bag Plus bag, Suspected Indication (Select all that apply): GBS Prophylaxis Followed by penicillin G potassium IVPB 2.5 million units in dextrose 5 % 100 mL (CANCELED)Jump to med 2.5 Million Units, IntraVENous, Administer over 30 Minutes, Every 4 hours, First dose on Sun06/23/24 at 0030, Begin 4 hours after loading dose. Continue until delivery. premix bag, Suspected Indication (Select all that apply): GBS Prophylaxis Group 3: ropivacaine (Naropin) 0.2 % (OB) epidural infusion (CANCELED)Jump to med 10 mL/hr, Epidural, Continuous, Starting on Sun06/23/24 at 1615, Pre-Delivery, PCEA Basal Infusion And ropivacaine 0.2 % in sodium chloride 0.9 % (OB) epidural syringe (CANCELED) Epidural, Continuous, Starting on Sun06/23/24 at 1615, Pre-Delivery, PCEA patient controlled syringe Pt. Controlled Dose: 5 ml Lockout Interval: 10 min One Hour Limit: 15 mL Group 4: ondansetron ODT (Zofran-ODT) disintegrating tablet 4 mgJump to med 4 mg, Oral, Every 8 hours PRN, nausea, vomiting, Starting on 06/23/24 at 2315, 1st Line. If inadequate response within 60 minutes, proceed to next-line agent or contact provider if no further options ordered. Patient should allow tablet to dissolve on tongue. Do not remove from blister pack until just before administering. Or ondansetron (Zofran) injection 4 mgJump to med 4 mg, IntraVENous, Every 6 hours PRN, nausea, vomiting, Starting on 06/23/24 at 2315, 1st Line. Give IV if patient is unable to take orally. If inadequate response within 60 minutes, proceed to next-line agent or contact provider if no further options ordered. FOR RECORDS PERTAINING TO PATIENTS WHO ARE [...] BE BASED ON THE PRIMARY CLINICAL RECORDS. [employer] [facility]. provides no warranty or guarantee of the accuracy or completeness of information in this document.
--- NOTE | 2024-09-21 19:42 | PC.NURSE ---
left side roof of mouth has a red round area, not raised, does not appear to be a blister and no open area. pt denies eating anything hot and burning the top of her mouth. no s/s of thrush
--- NOTE | 2024-09-21 19:48 | ED_ITS ---
HPI - Dental/Oral General Chief complaint: Dental/Oral Stated complaint: DENTAL REDNESS Time Seen by Provider: 09/21/24 19:40 Source: patient Mode of arrival: walk-in History of Present Illness HPI Narrative: The patient is coming to the ER after she noticed a painful ulcer in the left side of her mouth palate, patient had no other concerns No difficulty swallowing but the pain comes whenever she try eating something and it touches that area Related Data Previous Rx's ?Medication ?Instructions ?Recorded lidocaine HCl 2 % mucosal solution 1 applic mucous membrane Q8H PRN 09/21/24 (Lidocaine Viscous) pain 7 days #100 mL Allergies Allergy/AdvReac Type Severity Reaction Status Date / Time paxil Allergy Mild Insomnia Uncoded 05/13/24 21:24 clonidine Allergy hives Uncoded 05/13/24 21:24 [facility] Medical History (Updated 09/21/24 @ 19:49 by Nevin Haas MD) GERD (gastroesophageal reflux disease) ?K21.9 - Gastro-esophageal reflux disease without esophagitis (ICD-10) Anxiety ?F41.9 - Anxiety disorder, unspecified (ICD-10) Social History Little interest or pleasure in doing things: not at all Feeling down, depressed, or hopeless: not at all Exam Narrative Exam Narrative: Nurses notes and vital signs reviewed and patient is not hypoxic. General: Well-appearing and in no apparent distress. Skin: Warm, dry, no pallor noted. No rash. Head: Normocephalic, atraumatic. Neck: Supple, non-tender. Eye: Pupils are equal, round and EOMI. No scleral icterus. Ears, Nose, Mouth, and Throat: Mouth examination showed the patient have a small area of redness almost 1 cm on the left side of the hard palate, no redness or extension from the teeth it is only limited to that area. No open wound Constitutional Vital Signs, click to edit/add: Last Vital Signs Temp 98.1 F 09/21/24 19:36 Pulse 104 H 09/21/24 19:36 Resp 16 09/21/24 19:36 BP 133/85 09/21/24 19:36 Pulse Ox 100 09/21/24 19:36 O2 Del Method Room Air 09/21/24 19:36 Course Vital Signs Vital signs: Vital Signs Temperature 98.1 F 09/21/24 19:36 Pulse Rate 104 H 09/21/24 19:36 Respiratory Rate 16 09/21/24 19:36 Blood Pressure 133/85 09/21/24 19:36 Pulse Oximetry 100 09/21/24 19:36 Oxygen Delivery Method Room Air 09/21/24 19:36 Temperature 98.1 F 09/21/24 19:36 Pulse Rate 104 H 09/21/24 19:36 Respiratory Rate 16 09/21/24 19:36 Blood Pressure 133/85 09/21/24 19:36 Pulse Oximetry 100 09/21/24 19:36 Oxygen Delivery Method Room Air 09/21/24 19:36 MDM - Dental/Oral MDM Narrative Medical decision making narrative: The patient presenting with possible aphthous ulcer she will be treated supportively with the lidocaine 2% gel as needed for pain The patient is to follow up with primary care physician in next 2-3 days or to return to the emergency department should any of the signs or symptoms worsen or new symptoms develop. The patient agrees with the following Diagnosis and Treatment plan and the patient will be discharged home. Discharge Plan Discharge Chief Complaint: Dental/Oral Clinical Impression: Oral ulcer Patient Disposition: Home, Self-Care Time of Disposition Decision: 19:49 Condition: Good Prescriptions / Home Meds: New lidocaine HCl [Lidocaine Viscous] 2 % solution 1 applic mucous membrane Q8H PRN (Reason: pain) 7 Days Qty: 100 0RF Print Language: Kinyarwanda Instructions: Gingivostomatitis (ED) Referrals: Physician,Non-Staff, MD [Primary Care Provider] - 1 week
[2024-09-21] MEDS: BENZOCAINE 30 ML, lidocaine HCL 15 ML MM (20:13)
== END 2024-09-21 20:19 | disposition home or self-care (01) ==
PROVIDERS: Emergency Provider Emergency Medicine
DX: K12.1 Other forms of stomatitis (principal)
CPT/HCPCS: 99283

== ENCOUNTER 2024-10-19 22:32 | Emergency (ER) | payer OTHER, SELFPAY ==
[2024-10-19 22:40] VITALS: BP 121/81; PULSE 107; TEMP 36.5; O2SAT 99; BMI 21.6
--- OUTSIDE RECORDS SUMMARY | 2024-10-19 22:40 | XMS_ITS | CCD ---
Author Organization [facility] Inform ion [facility] Care Team Providers Care Door Operator Name Role Phone Page Ferris Primary Care Unavailable Esdras Villanueva Admitting Unavailable Esdras Villanueva Attending Unavailable Page Ferris Primary Care Unavailable CornHong garcia Admitting Unavailable Cornjose, Hong Attending Unavailable Page Ferris Primary Care Unavailable Cornici Hong Admitting Unavailable Cornici, Hong Attending Unavailable DILIA BURNS Admitting Unavailable DILIA BURNS Attending Unavailable NO, DOCTOR ON Referring Unavailable DILIA BURNS Primary Care Unavailable NO, DOCTOR ON Consulting Unavailable Page Ferris Unavailable Alie Rodriguez Unavailable Unavailable Jordyn Ramirez Unavailable Unavailable Unavailable Jordyn Ramirez CNP Primary Care Provider [phone] JOSELIN NOYOLA Referring Unavailable JOSELIN NOYOLA Admitting Unavailable RAMIREZ, JORDYN ARIE Primary Care Unavailable JOSELIN NOYOLA Attending Unavailable RAMIREZ, JORDYN ARIE Primary Care Unavailable JOSELIN NOYOLA Referring Unavailable RAIMREZ, JORDYN ARIE Primary Care Unavailable JOSELIN NOYOLA Admitting Unavailable JOSELIN NOYOLA Attending Unavailable RAMIREZ, JORDYN ARIE Primary Care Unavailable JOSELIN NOYOLA Referring Unavailable JOSELIN NOYOLA Admitting Unavailable RAMIREZ, JORDYN ARIE Primary Care Unavailable JOSELIN NOYOLA Attending Unavailable RAMIREZ, JORDYN ARIE Primary Care Unavailable Jordyn Thakur Unavailable Page Ferris Unavailable Ofe, Jordyn Unavailable Tyrell Pelaez Unavailable Unavailable Mercedes, Jocelyne Unavailable Unavailable Thakur OFFICE HELPER-KARLENE, Jordyn D Primary Care Provider [phone] Alie Flor Unavailable Unavailabl e RAMIREZ, JORDYN ARIE Primary Care Unavailable STANLEY QUILES Attending Unavailable STANLEY QUILES Attending Unavailable TAVALLAEE, DOMINICK MONAZZAM Primary Care Unav ailable ASHLEY, JORDYN AIRE Primary Care Unavailable MARE LEAVITT Attending Unava ilable Bautista Villanueva Unavailable Unavailable Chris Blue Unavailable Unavailabl e OFE, KARLENE JORDYN ARIE Primary Care Unavailab le Fried, Ms. Jocelyne Calvillom Attending Unavailabl e THAKUR, CHEESE COOK JORDYN ARIE Primary Care Unavailab le Zarrabi, Dr. Mcmullen Attending Unavailable Wale, Dr. Mcmullen Referring Unavailable THAKUR, KARLENE JORDYN ARIE Attending Unavailab le THAKUR, CHEESE COOK JORDYN ARIE Referring Unavailab le THAKUR, CHEESE COOK JORDYN ARIE Primary Care Unavailab le THAKUR, CHEESE COOK JORDYN ARIE Attending Unavailab le THAKUR, CHEESE COOK JORDYN ARIE Referring Unavailab le THAKUR, CHEESE COOK JORDYN ARIE Primary Care Unavailab le Zarrabi, Dr. Mcmullen Attending Unavailable Zarrcandace, Dr. Mcmullen Referring Unavailable THAKUR, KARLENE JORDYN ARIE Primary Care Unavailab le THAKUR, CHEESE COOK JORDYN ARIE Primary Care Unavailab le Zarrabi, Dr. Mcmullen Attending Unavailable Wale, Dr. Mcmullen Referring Unavailable Thakur OFFICE HELPER-KARLENE, Jordyn D Unavailable [phone] Claudia Quick RN Unavailable Unavailable Basia, Ms. Alie Ward Attending Unavailable Thakur, Ms. Jordyn Arie Primary Care Unavailab le Thakur, Ms. Jordyn Arie Primary Care Unavailab le LeMasters, Dr. Chris Lemos Attending Unav ailable Thakur, Ms. Jordyn Arie Primary Care Unavailab le Somviviane, Dr. Tyrell Gray Attending Unavailabl e Thakur, Ms. Jordyn Arie Primary Care Unavailab le Mohan, Bautista Attending Unavailable Emre Berkowitzi Admitting Unavailab le Nerey Logeswari Referring Unavailab le THAKUR, JORDYN D Primary Care Unavailable NONE, XXXX Primary Care Physician Unavailab le THAKUR, JORDYN D Primary Care Unavailable Paulino, Anika Gomez Admitting Unavailable Paulino, Anika Gomez Attending Unavailable Paulino, Anika Gomez Admitting Unavailable Paulino, Anika Gomez Attending Unavailable Paulino, Anika Gomez Attending Unavailable Paulino, Anika Gomez Admitting Unavailable Paulino, Anika Gomez Attending Unavailable Paulino, Anika Gomez Admitting Unavailable Paulino, Anika Gomez Attending Unavailable Paulino, Anika Gomez Admitting Unavailable Thakur OFFICE HELPER-CHEESE COOK, Jordyn D Primary Care Provider [phone] Thakur OFFICE HELPER-CHEESE COOK, Jordyn D Unavailable THAKUR, JORDYN D Attending [...] Attending Unavailable Paulino, Anika Gomez Admitting Unavailable ROCAJULIET Admitting Unavailable [facility] Unavailable FLORESJENNY Attending Unavailable Paulino, Anika Gomez Attending Unavailable Paulino, Anika Gomez Admitting Unavailable Paulino, Anika Gomez Attending Unavailable Paulino, Anika Gomez Admitting Unavailable Tali Zarate Attending Unavailable Minesh Kemp Attending Unavailable Allergies Allergy Classification Reported Allergen(s) Allergy Type Date of Onset Reaction(s) Facility cloNIDine (1 source) cloNIDine Drug Allergy Hives/Urticaria [facility] (20 sources) cloNIDine; Translations: [clonidine] Drug Allergy 1 Hives, Weal (disorder) [facility] (10 sources) PARoxetine; Translations: [PAROXETINE HCL] Drug Allergy 3 Insomnia [facility] Work Phone: (15 sources) PARoxetine; Translations: [paroxetine] Drug Allergy 4 Insomnia (disorder) [facility] Medications Current Medications Medication Drug Class(es) Dates Sig (Normalized) Sig (Original) acyclovir 400 mg oral tablet (1 source) Herpesvirus Nucleoside Analog DNA Polymerase Inhibitor, Herpes Simplex Virus Nucleoside Analog DNA Polymerase Inhibitor, Herpes Zoster Virus Nucleoside Analog DNA Polymerase Inhibitor Start: 09-23-2024 End: 09-30-2024 take 1 tablet by mouth four times daily acyclovir 400 mg Tab 400 mg = 1 tab(s), Oral, QID, X 7 day(s), # 28 tab(s), Refills(s) 0, Pharmacy: [facility], 165, cm, 09/23/24 11:58:00 EST, Height/Length Dosing, 57, kg, 09/23/24 11:58:00 EST, Weight Dosing Start Date: 09/23/24 Stop Date: 09/30/24 Status: Ordered amoxicillin 500 mg oral capsule (2 sources) [...] day(s), # 28 cap(s), Refills(s) 0, Pharmacy: [facility], 165.1, cm, 06/03/24 20:43:00 EST, Height/Length [...] . 30 tablet 0 04/24/2022 05/24/2022 Active lidocaine Viscous Top 2% Uyen (1 source) Start: 09-23-2024 lidocaine Viscous Top 2% Uyen Refill(s) 0 Start Date: 09/23/24 Status: Ordered nitrofurantoin, macrocrystals 25 mg / nitrofurantoin, monohydrate [...] IntraMUSCular, Every 24 hours, First dose on Sun06/22/24 at 2030, For 2 doses calcium chloride [...] at 1549, For 1 dose, Alyce Almodovar: cabinet override potassium chloride 20 meq powder for [...] 1 tablet, Oral, Daily, First dose on Sun06/22/24 at 2030 5 ml sodium chloride 9 mg/ml injection (2 sources) Start: 06-22-2024 End: 06-23-2024 10 mL, IntraVENous, Every 12 hours scheduled (2 times per day), First dose on Sun06/22/24 at 2100 witch blanco 500 mg/ml medicated [...] disorder, unspecified type] Onset: 02-22-2011 10-20-2022 Chronic Diseases of mouth; excluding dental (1 source) Lesion of oral mucosa; Translations: [Other lesions of oral mucosa] Onset: 09-23-2024 Episodic Early or threatened labor (7 sources) labor [...] 06-07-2022 Episodic Other aftercare (1 source) Other chimney builder helper (current) drug therapy; Translations: [Other chimney builder helper (current) drug therapy] Onset: 04-13-2023 Episodic Other [...] gain] Episodic Other and delivery including normal (6 sources) 06-04-2024 Episodic Other upper respiratory infections [...] above: STOMACH PAIN AND VOM ITTING Unclassified (6 sources) Onset: 11-27-2023 Resolved: 06-23-2024 06-03-2024 Urinary tract infections (20 sources) Acute cystitis without hematuria; Translations: [Pyelonephritis] Onset: 02-14-2023 Resolved: 05-06-2024 Episodic Results Test Name Value Interpretation Reference Range Facility Family Medicine Office/Clini c Noteon 10-12-2024 Family Medicine Office/Clinic Note Family Medicine Office/Clinic Note HPI Staff 23 year old female presents for a sore throat that does hurt as bad as it did 2 days ago, cough, slight body aches. Pt states that she has a baby at home and she is concerned that she may have influenza or covid. Pt denies having a fever. Onset- 2 days History of Present Illness I have reviewed and verified the staff HPI to be accurate for this encounter. Portions of this record have been created with voice recognition software. Occasional wrong-word or ???ekxmi-f-umlz??? substitutions may have occurred due to the inherent limitations of voice recognition software. 23 yo female presents today with cc of sore throat. She states that this started about 2 days ago states it has improved some. States cough states slight body aches. Patient states that she has a baby at home and is concerned that she may have influenza or COVID-19. Denies having fever. Patient states that her son was born premature at 29 weeks. Spent approximately 40 days in the NICU. States he is technically 4 months of age but should only be 1 month of age given premature. Mom states that he did have a heart procedure states they spent 2 nights at the hospital came home states that a family friend she has been other than home with the infant. Patient states symptoms started with sore throat followed by nasal congestion pressure headache cough today slight body aches denies fever or chills. States element of a cough dry nonproductive no history of asthma or COPD. No smoking history. No belly pain nausea vomiting or loose stool. No known exposures to COVID-19 or influenza. She has no other concerns at this time. Patient is not currently breast-feeding. Medication allergies including clonidine and Paxil. Review of Systems PHQ Score Initial Depression Screen Score: 0 SCORE ROS negative unless otherwise stated in HPI. Physical Exam Vitals & Measurements T: 36.7 ???C(Temporal Artery) HR: 110(Peripheral) RR: 16 BP: 110/78 SpO2: 99% HT: 165 cm HT: 65 in WT: 124.12 lb WT: 56.3 kg BMI: 20.68 General:Well developed, well nourished, in no acute distress Eyes:Bilateral conjunctiva wnl, no injection Ears:Bilateral TMs are wnl. No erythema or bulging. Bilateral external auditory canals are wnl no erythema or edema. Nose:mild nasal mucosa inflammation and edema no active drainage deformity or lesion Mouth:Moist mucous membranes. Uvula is midline. No acute tonsillar erythema, edema, or exudate. No signs of peritonsillar abscess. No trismus or drooling. Neck:no adenopathy Lungs: Lung sounds are clear bilaterally. No wheezing rhonchi or crackles on exam. Cardio:S1, S2, regular rhythm. No murmurs, gallops, or rubs. Abdomen:not assessed Musculoskeletal:not assessed Extremity:not assessed Neurologic:not assessed Skin:not assessed Mental Status:Alert and oriented x3. Normal mood and affect Assessment/Plan Patient had rapid COVID-19 and influenza testing completed in office which were both negative. I updated patient regards to those negative results. Discussed that she was likely has a viral upper respiratory infection which she may have cough or cold-like symptoms anywhere from 7 to 14 days in duration the worst being in the first 3 to 5 days. Discussed covering her mouth lots of handwashing to prevent spread of illness especially when ambulating . Otherwise she understands to take child to funeral sales manager if child is despite fever. Fluids rest and supportive management is the treatment of choice for herself. Otherwise to follow-up closely with PCP return if needed. Patient agrees and understands plan. 1. Viral URI with cough (J06.9: Acute upper respiratory infection, unspecified) Discussed exam and hx are consistent with viral illness. Advised of typical duration. Discussed antibiotics unfortunately do not treat viral illnesses, it will take time to run course- usually 7-14 days. Fluids/rest encouraged, PRN tylenol/ibuprofen for any pain. May use tessalon tid x 7 days for symptomatic tx. Follow up with PCP if not improving over next 7-10 days or significantly worsening symptoms. Patient verbalized understanding of tx plan. Body aches (R52: Pain, unspecified) Follow-up With When Contact Information NONE, XXXX [phone] Additional Instructions: Patient Education Upper Respiratory Infection, Adult Problem List/Past Medical History Ongoing No qualifying data Historical Procedure/Surgical History Betamethasone (06/04/2024), Betamethasone (06/03/2024). Medications Tessalon 100 mg Cap, 100 mg= 1 cap(s), Oral, TID Allergies Paxil (Insomnia) cloNIDine (Hives) Social History Alcohol - Denies Alcohol Use, 06/03/2024 Substance Abuse - Denies Substance Abuse, 06/03/2024 Tobacco - Denies Tobacco Use, 06/03/2024 Never (less than 100 in lifetime) Tobacco Use:. Current vaping or e-cigarette use Smokeless Tobacco Use:. Vaping, 10/10/2024 [facility] Comment on above: Result Comment: Elec tronically Signed By: Justo EASTON, Minesh Bruno\.br\Date and Time Signed: 10/12/24 08:24 EDT Ambulatory Visit Summaryon 0 10-10-2024 Ambulatory Visit Summary Ambulatory Visit Summary LUZ HINOJOSA :2000 Visit Date:10/10/2024 Ambulatory Visit Instructions Your Diagnosis Body aches Your Care Team Attending Physician - Justo EASTON, Minesh Bruno Primary Care Physician - NONE, XXXX Procedures Performed Betamethasone (06/04/2024), Betamethasone (06/03/2024). Discharge Vitals Temperature (Temporal Artery) 36.7 ???C Heart Rate (Peripheral) 110 Respiratory Rate 16 Blood Pressure 110/78 Height 165 cm Height 65 in Weight 56.3 kg Weight 124.12 lb BMI 20.68 What to do next You Need to Schedule the Following Appointments Follow Up with NONE, XXXX When: Where: [phone] Allergies Paxil (Insomnia) cloNIDine (Hives) Problems Historical - Any problem that you are no longer receiving treatment for. Patient Survey You may receive a survey via text or e-mail asking about your office visit. Please share your experience with us by completing your survey. We appreciate your feedback and thank you for choosing us for your care. [facility] Ambulatory Visit Summaryon 0 09-23-2024 Ambulatory Visit Summary Ambulatory Visit Summary LUZ HINOJOSA :2000 Visit Date:09/23/2024 Ambulatory Visit Instructions Your Diagnosis Mouth sores Your Care Team Attending Physician - Sushila High Primary Care Physician - NONE, XXXX This Is Your Medications List acyclovir (acyclovir 400 mg Tab) Contact prescribing physician if questions or concerns lidocaine topical (lidocaine Viscous Top 2% Uyen) Procedures Performed Betamethasone (06/04/2024), Betamethasone (06/03/2024). Discharge Vitals Temperature (Oral) 36.8 ???C Heart Rate (Peripheral) 69 Respiratory Rate 18 Blood Pressure 122/76 Height 165 cm Height 65 in Weight 57 kg Weight 125.663 lb BMI 20.94 Medications What How Much When Why Instructions New acyclovir (acyclovir 400 mg Tab) 1 Tablets By Mouth 4 times a day Mouth sores Duration: 7 Days Pickup at [facility] Unchanged lidocaine topical (lidocaine Viscous Top 2% Uyen) Contact prescribing physician if questions or concerns Pharmacy Information [facility]: [address] [place], [place] [id number] [phone] Allergies Paxil (Insomnia) cloNIDine (Hives) Problems Historical - Any problem that you are no longer receiving treatment for. Patient Survey You may receive a survey via text or e-mail asking about your office visit. Please share your experience with us by completing your survey. We appreciate your feedback and thank you for choosing us for your care. [employer] Canker Sores Canker sores are small, painful sores that develop inside the mouth. You can get one or more canker sores on the inside of your lips or cheeks, on your tongue, or anywhere inside your mouth. Canker sores cannot be passed from person to person (are not contagious). These sores are different from the sores that you may get on the outside of your lips (cold sores or fever blisters). What are the causes? The cause of this condition is not known. The condition may be passed down from a parent (genetic). What increases the risk? This condition is more likely to develop in: ??? Females. ??? People in their teens or 20s. ??? Females who are having their menstrual period. ??? People who are under a lot of emotional stress. ??? People who do not get enough iron or B vitamins. ??? People who do not take care of their mouth and teeth (have poor oral hygiene). ??? People who have an injury inside the mouth, such as after having dental work or from chewing something hard. What are the signs or symptoms? Canker sores usually start as painful red bumps. Then they turn into small white, yellow, or brody sores that have red borders. The sores may be painful, and the pain may get worse when you eat or drink. In severe cases, along with the canker sore, symptoms may also include: ??? Fever. ??? Tiredness (fatigue). ??? Swollen lymph nodes in your neck. How is this diagnosed? This condition may be diagnosed based on your symptoms and an exam of the inside of your mouth. If you get canker sores often or if they are very bad, you may have tests, such as: ??? Blood tests to rule out possible causes. ??? Swabbing a fluid sample from the sore to be tested for infection. ??? Removing a small tissue sample from the sore (biopsy). How is this treated? Most canker sores go away without treatment in about 1 week. Home care is usually the only treatment that you will need. Xcjq-cnm-lszywap medicines can relieve discomfort. If you have severe canker sores, your health care provider may prescribe: ??? Numbing ointment to relieve pain. ? Do not use products that contain benzocaine (including numbing gels) to treat teething or mouth pain in children who are younger than 2 years. These products may cause a rare but serious blood condition. ??? Vitamins. ??? Steroid medicines. These may be given as pills, mouth rinses, or gels. ??? Antibiotic mouth rinse. Follow these instructions at home: ??? Apply, take, or use wexy-xce-bigfpox and prescription medicines only as told by your health care provider. These include vitamins and ointments. ??? If you were prescribed an antibiotic mouth rinse, use it as told by your health care provider. Do not stop using the antibiotic even if your condition improves. ??? Until the sores are healed: ? Do not drink coffee or citrus juices. ? Do not eat spicy or salty foods. ??? Use a mild, kleq-mvw-ztyuida mouth rinse as recommended by your health care provider. ??? Take good care of your mouth and teeth (oral hygiene) by: ? Flossing your teeth every day. ? Brushing your teeth with a soft toothbrush twice each day. Contact a health care provider if: ??? Your symptoms do not get better after 2 weeks. ??? You also have a fever or swollen glands in your neck. ??? You get canker sores often. (more content not included)... Normal [facility] Family Medicine Office/Clini c Noteon 09-23-2024 Family Medicine Office/Clinic Note Family Medicine Office/Clinic Note Chief Complaint Mouth sores HPI Staff 23 year old female complaints of sores in the roof of mouth, a slight sore throat, and headache. Pt states they are very painful and it has made it hard for her to eat and drink. Pt denies fevers. Pt reports going to ER and she was told they could not swab her and that they were not sure what it could be, she was sent home with a prescription for lidocaine. Pt is concerned that symptoms are worsening. Pt states she has had canker sores before but never on the roof of her mouth. Onset: 5 days ago OTC tried: Tylenol and ibuprofen, Orajel mouth wash. History of Present Illness I have reviewed and verified the staff HPI to be accurate for this encounter. Portions of this record have been created with voice recognition software. Occasional wrong-word or ???sylqc-g-zqba??? substitutions may have occurred due to the inherent limitations of voice recognition software. 23 year old female presents with complaint of mouth sores for last 5 days. No fevers or chills. No sore throat, nasal congestion or cough. She states it is painful and difficult to eat due to the sores. She denies burning her mouth on food. She has been avoiding spicy and acidic foods. She has been trying to drink more water. States she is eating bland diet. She is about 12 weeks and not . Somewhat stressed with new baby. She went to ER for same concern and was given lidocaine but only helps for a few minutes. Feels like they are worsening and would like to try antiviral medication to see if that helps. Review of Systems ROS negative unless otherwise stated in HPI. Physical Exam Vitals & Measurements T: 36.8 ???C(Oral) HR: 69(Peripheral) RR: 18 BP: 122/76 SpO2: 99% HT: 65 in HT: 165 cm WT: 57 kg WT: 125.663 lb BMI: 20.94 General: not assessed Eyes: not assessed Ears: not assessed Nose: not addressed Mouth: Mucous membranes moist. Normal oropharynx, and posterior pharynx without lesions or exudates. Tongue normal lips dry. Sores are located in the upper left palate and on lower gums near tooth 20-21 along the outer gum. They are erythematous patches without any blisters or drainage. No pus. Neck: no adenopathy Lungs: clear to auscultation throughout, no wheezing, no rales. No respiratory distress Cardio: regular rate and rhythm, no murmur Abdomen: not assessed Musculoskeletal: not assessed Extremity: not assessed Neurologic: Grossly normal Skin: No rashes, ulcerations, or suspicious lesions Mental Status: Alert and oriented x3. Normal mood and affect Assessment/Plan Possibly viral or caused by stress. Appear mild to moderate. No signs of bacterial infection such as edema or pus. Has been using lidocaine without much relief. Would like to try antiviral. Encouraged her to stay hydrated drinking plenty of water. Would avoid spicy foods, acidic foods, carbonated drinks/sugary drinks. He may also try gargling with warm baking soda water several times a day. 1. Mouth sores (K13.79: Other lesions of oral mucosa) Acyclovir 400 mg 4 times a day x 7 days. Ordered: acyclovir, 400 mg = 1 tab(s), Oral, QID, X 7 day(s), # 28 tab(s), Refills(s) 0, Pharmacy: [facility] 1985, 165, cm, 09/23/24 11:58:00 EST, Height/Length Dosing, 57, kg, 09/23/24 11:58:00 EST, Weight Dosing Follow-up No qualifying data available Patient Education Canker Sores Problem List/Past Medical History Ongoing No qualifying data Historical Procedure/Surgical History Betamethasone (06/04/2024), Betamethasone (06/03/2024). Medications acyclovir 400 mg Tab, 400 mg= 1 tab(s), Oral, QID lidocaine Viscous Top 2% Uyen Allergies Paxil (Insomnia) cloNIDine (Hives) Social History Alcohol - Denies Alcohol Use, 06/03/2024 Substance Abuse - Denies Substance Abuse, 06/03/2024 Tobacco - Denies Tobacco Use, 06/03/2024 Never (less than 100 in lifetime) Tobacco Use:. Former vaping or e-cigarette use Smokeless Tobacco Use:. Vaping, 09/23/2024 Normal [facility] Comment on above: Result Comment: Elec tronically Signed By: Sushila High\.br\Date and Time Signed: 09/23/24 12:44 EST 42on 06-25-2024 42 In to follow up with NICU mom. Mom is pumping every 3 hours for 40-50cc EDITA. Mom has Spectra pump for home. Discharge today. Normal [facility] Progress Noteon 06-25-2024 Progress Note ---- -------- [...] office PP vs her primary OB in [place] and she will follow up in [place]. DC teaching done. Briefly discussed CL measurements [...] MD Arjun Samaniego MD 06/25/2024, 5:[address] [facility] [id number] 06-24-2024 [id number] Date: 06/24/2024 Name: Luz Hinojosa : 2000 [facility] Patient Information Primary Caregiver: Self Accompanied by/Relationship: [...] place to sleep or slept in a fpc (including now)? No Transportation Needs Has the [...] Equipment: Developmental Delay: N/A Children's Services: N/A [facility] 42on 06-24-2024 42 Baby is [...] bf mother's groups after dc. Verbalizes understanding. [facility] Bacteria identified Cx Nom ( U)Ordered By: Rahel Laboy on 06-24-2024 Interpretation and review of laboratory results Normal [facility] Laboratory - Microbiology an d Antimicrobial susceptibilityOrdered By: Rahel Laboy on 06-24-2024 Bacteria identified Cx Nom (U) No growth (<1,000 CFU/mL) [facility] Nursing Noteon 06-24-2024 Nursing Note Patient up to ambula te for this first time since delivery. Patient able to ambulate to the bathroom independently. Pads and underwear changed. Lazara care performed. Education provided about abnormal signs of bleeding and lazara care. No questions or concerns voiced. Patient ambulated back to bed without difficulty. Call light within reach. [facility] Progress Noteon 06-24-2024 Progress Note Nutrition rescreen completed. Chart reviewed. Patient to be monitored and followed by the diet pharmacy technician trainee. MARRY Mathias [facility] Progress Note VAGINAL DELIVERY POST DAY # 1 Luzpatricia Hinojosa, 23 y.o. This patient was seen [...] indicated: Pt is doing well. Bboy in [facility] NICU. AFVSS. TIME SPENT ON PATIENT ENCOUNTER TODAY: Chart review and preparation: 10 minutes. [id number], documentation, and care coordination: 15 minutes. --> TOTAL= [address] [facility] S. agalactiae DNA GIOVANNI+probe Ql (Unsp spec)on 06-24-2024 Group B Strep Screen Not detected Not Detected [facility] Interpretation and review of laboratory results Normal [facility] Methodology: real-ti me PCR [facility] 30on 06-23-2024 30 Problem: Antepartum Goal: Maintain as long as maternal and/or condition is stable 06/23/20242101 by Judie Ochoa RN Outcome: Completed 06/23/20242035 by Judie Ochoa RN Outcome: Progressing Normal [facility] 30 Problem: Antepartum Goal: Maintain as long as maternal and/or condition is stable Outcome: Progressing Flowsheets (Taken 06/22/20242199) Maintain as long as maternal and/or condition is stable: Maternal surveillance director of regional sales uterine activity Medications as ordered Problem: Pain [...] fall injury: Instruct family/caregiver on patient safety [facility] [id number] 06-23-2024 [id number] Date: 06/23/2024 Name: Luz Hinojosa : 2000 [facility] Patient Information Primary Caregiver: Self [...] place to sleep or slept in a fpc (including now)? No Transportation Needs Has the [...] Developmental Delay: N/A Children's Services: N/A Normal [facility] Bacterial vaginosis and vagi nitis rRNA panel Probe (Vag fld)on 06-23-2024 Bacterial vaginosis Ql (Vag fld) [Interp] Not detected Not Detected [facility] C. glabrata DNA GIOVANNI+probe Ql (Vag fld) Not detected Not Detected [facility] Preethi sp DNA GIOVANNI+probe Ql (Vag fld) Not detected Not Detected [facility] Interpretation and review of laboratory results Normal [facility] T. vaginalis DNA GIOVANNI+probe Ql (Vag fld) Not detected Not Detected [facility] Methodology: real-ti me PCR A negative result [...] sexual abuse or for other forensic purposes. [facility] C Urineon 06-23-2024 Bacteria identified Cx Nom [...] Locations R1: This test was performed at: [facility], [address] [place] [address], [facility] , , Normal [facility] Comment on above: Performed By: #### 2 [id number] #### [facility] [address] [place] [address] CBC (HEMOGRAM)on 06-23-2024 Erythrocyte distribution width (RBC) [Ratio] 12.4 % Normal 11.5-15.0 [facility] Comment on above: Performed By: #### L [id number] ####Pumper Helper: JORDYN DUFFY ([phone])[address] Hematocrit (Bld) [Volume fraction] 29.8 % Low 35.0-47.0 [facility] Comment on above: Performed By: #### L [id number] ####Pumper Helper: JORDYN [id number])[address] Hemoglobin (Bld) [Mass/Vol] 10.1 g/dL Low 11.7-16.0 [facility] Comment on above: Performed By: #### L [id number] ####Pumper Helper: JORDYN [id number])[facility] [place] [address] MCH (RBC) [Entitic mass] 28.8 pg Normal 26.0-34.0 [facility] Comment on above: Performed By: #### L [id number] ####Pumper Helper: JORDYN DUFFY ([phone])[facility] ([facility])[address] [place] [address] MCHC 33.9 % Normal 30.5-36.0 [facility] Comment on above: Performed By: #### L [id number] ####Pumper Helper: JORDYN DUFFY ([phone])[facility] ([facility])[address] [place] [address] MCV (RBC) [Entitic vol] 84.9 fL Normal 77.0-99.0 S [facility] Comment on above: Performed By: #### L [id number] ####Pumper Helper: JORDYN DUFFY ([phone])[facility] ([facility])[address] [place] [address] Platelet mean volume (Bld) [Entitic vol] 10.2 fL Normal 9.0-12.7 [facility] Comment on above: Performed By: #### L [id number] ####Pumper Helper: JORDYN DUFFY ([phone])[facility] ([facility])[address] [place] [address] Platelets (Bld) [#/Vol] 284 10*3/uL Normal 140-440 [facility] Comment on above: Performed By: #### L [id number] ####Pumper Helper: JORDYN DUFFY ([phone])[facility] ([facility])[address] [place] [address] RBC (Bld) [#/Vol] 3.51 10*6/uL Low 3.80-5.20 [facility] Comment on above: Performed By: #### L [id number] ####Pumper Helper: JORDYN DUFFY ([phone])[facility] ([facility])[address] [place] [address] WBC (Bld) [#/Vol] 19.1 10*3/uL High 3.6-10.7 [facility] Comment on above: Performed By: #### L [id number] ####Pumper Helper: JORDYN DUFFY ([phone])[facility] ([facility])[address] [place] [address] CBC panel Auto (Bld)on 06-23 Erythrocyte distribution width (RBC) [Ratio] 12.4 % 11.5 - 15.0 % [facility] Hematocrit (Bld) [Volume fraction] 29.8 % Low 35.0 - 47.0 % [facility] Hemoglobin (Bld) [Mass/Vol] 10.1 g/dL Low 11.7 - 16.0 g/dL [facility] Interpretation and review of laboratory results Abnormal [facility] MCH (RBC) [Entitic mass] 28.8 pg 26.0 - 34.0 pg [facility] MCHC (RBC) [Mass/Vol] 33.9 % 30.5 - 36.0 % [facility] MCV (RBC) [Entitic vol] 84.9 fL 77.0 - 99.0 fL [facility] Platelet mean volume (Bld) [Entitic vol] 10.2 fL 9.0 - 12.7 fL [facility] Platelets (Bld) [#/Vol] 284 10*3/uL 140 - 440 10*3/uL [facility] RBC (Bld) [#/Vol] 3.51 10*6/uL Low 3.80 - 5.2 0 10*6/uL [facility] WBC (Bld) [#/Vol] 19.1 10*3/uL High 3.6 - 10.7 10*3/uL [facility] Consulton 06-23-2024 Consult NICU Maternal Consul t [...] 40 minutes. Emily Teresa MD, 06/23/2024 Normal [facility] GROUP B STREP SCREEN BY PCRo n 06-23-2024 GROUP B STREP SCREEN BY PCR GROUP B STREP SCREEN BY PCR Reference Not Detected Not Detected ORDER COMMENTS: Methodology: real-time PCR Normal [facility] Comment on above: Performed By: #### L [id number] #### Pumper Helper: JORDYN DUFFY ([phone]) [facility] ([address] Inpatient Clinical Summaryon 06-23-2024 Inpatient Clinical Summary Inpatient Clinical Summary [place] [id number] Clinical Summary Person Information Name: LUZ HINOJOSA/[facility] Age: 23 Years : 2000 Sex: Female PCP: NONE, XXXX Marital Status: Phone: [phone] Race: White Ethnicity: Non- or Language: Turkish Visit Id: Visit Reason: contractions Speciality: Acuity: Enc Type: Observation Med Service: Obstetrics Arrival: 06/22/2024 06:49:36 Discharge: 06/22/2024 16:53:00 Dispo Type: Undefined HC Fac Address: [address] [place] [phone] Provider Notes: Diagnosis: Problems Active (11/27/2023) Smoking [...] Referring Physician: Follow up: Patient Education Information: [facility] Inpatient Patient Summaryon 06-23-2024 Inpatient Patient Summary Inpatient Patient Summary [place] [id number] Patient Discharge Instructions PERSON INFORMATION Name: LUZ [...] to find a nearby participating provider. Comment: Chris ASHISHLUZ, have received the attached patient education materials/instructions and have verbalized understanding. Patient Signature Date Clinican/Nurse Signature Date MEDICATION LIST Medications to Continue with No Changes Other Medications multivitamin, ( Multivitamins) 1 Tablets By Mouth every day. Last Dose: _Next Dose: _ Pharmacy Information: PATIENT EDUCATION INFORMATION Instructions: Medication Leaflets: You may receive a survey from [employer] asking you to rate your care experience. [...] signed up for this yet, please contact [employer] at [phone] to get signed up today. COOPER Award [...] QR code below. 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 Ponce; Dr. Adams Infant Information: Information for the patient's : Onesimo Hinojosa [[id number]] Information for the patient's : Onesimo Hinojosa [[id number]] Description: normal Meconium Noted: No Anesthesia: epidural anesthesia Complications: None Application and Delivery: Luz Hinojosa at 29w5d admitted for threatened labor as a transfer from [place]. She progressed with cervical dilation despite tocolysis. [...] attended by the RN for evaluation. The infant was stimulated and dried. The cord was [...] Quantitative Blood Loss: 50 mL Onesimo Hinojosa [[id number]] Labor Events labor?: Yes steroids: Full Course [...] Start pushing date/time: Decision date/time () Delivery ([place]) (more content not included)... Normal [facility] N. gonorrhoeae DNA GIOVANNI+probe Ql (Cervical mucus)on 06-23-2024 C. trachomatis DNA GIOVANNI+probe Ql (Unsp spec) Not detected Not Detected [facility] Interpretation and review of laboratory results Normal [facility] N gonorrhoeae, DNA Probe Not detected Not Detected [facility] Methodology: real-ti me PCR This test is [...] specimen should be collected if clinically indicated. [facility] Progress Noteon 06-23-2024 Progress Note Following SVE [...] labor floor and patient may request epidural. PRODUCT DIRECTOR updated and aware. [facility] Progress Note SVE performed in set ting of continued CTX and abdominal pain. SVE unchanged at 2/80/-3. Will continue to monitor closely. 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 [...] x 48hrs, mag x 12 hrs for SALESFORCE DEVELOPER, and PCN G for GBS prophylaxis until [...] regular contractions q5 min that were painful. /3 on SVE at that time. Given Terbutaline, IR procardia x1, magnesium parada (more content not included)... Normal [facility] US OB DETAIL ANATOMY T RANSABDOMINALon 06-23-2024 US OB DETAIL ANATOMY TRANSABDOMINAL OBSTETRICS REPORT (Signed Final 06/23/2024 01:22 pm) PATIENT INFO: ID #: [id number] : [birth year] (23 yrs)(F) Name: LUZ HINOJOSA Visit Date: 06/23/2024 11:18 am PERFORMED BY: Attending: Juliet Roca Performed By: Yonis Allen Referred By: GAVI TEJADA Location: [facility] IP Visit Type: Inpatient - Hospital SERVICE(S) PROVIDED: US Level II complete (Targeted OB) 60849 INDICATIONS: TPTL VITAL SIGNS: Weight (lb): 143 [...] Normal appearance Interventr. Septum: Suboptimal views Cardiac Tri[place]: Normal appearance Diaphragm: Normal appearance 3 Vessel [...] Normal Anter (more content not included)... Normal [facility] for pregnancyon 1. [place] live intrauterine at 29w 5d. 2. Normal anatomy, with limitations as noted above. 3. biometry consistent with clinically established JOANIE. EFW is 1323g (42%). 4. Normal Anterior placenta. 5. Amniotic fluid index is normal, 11cm. [facility] OBSTETRICS REPORT (Signed Final 06/23/2024 01:22 pm) PATIENT INFO: ID #: [id number] : [birth year] (23 yrs)(F) Name: LUZ HINOJOSA Visit Date: 06/23/2024 11:18 am PERFORMED BY: Attending: Juliet Roca Performed By: Yonis Allen Referred By: GAVI TEJADA Location: [facility] IP Visit Type: Inpatient - Hospital SERVICE(S) PROVIDED: US Level II complete (Targeted OB) 31137 INDICATIONS: TPTL VITAL SIGNS: Weight (lb): 143 [...] Normal appearance Interventr. Septum: Suboptimal views Cardiac [place]: Normal appearance Diaphragm: Normal appearance 3 Vessel [...] Forearm: Normal appearance (more content not included)... [facility] Juliet Roca MD - 06/23/2024 OBSTETRICS REPORT (Signed Final 06/23/2024 01:22 pm) PATIENT INFO: ID #: [id number] : [birth year] (23 yrs)(F) Name: LUZ HINOJOSA Visit Date: 06/23/2024 11:18 am PERFORMED BY: Attending: Juliet Roca Performed By: Yonis Allen Referred By: GAVI TEJADA Location: [facility] IP Visit Type: Inpatient - Hospital SERVICE(S) PROVIDED: US Level II complete (Targeted OB) 90520 INDICATIONS: TPTL VITAL SIGNS: Weight (lb): 143 [...] Normal appearance Interventr. Septum: Suboptimal views Cardiac [place]: Normal appearance Diaphragm: Normal appearance 3 Vessel [...] with limitations a (more content not included)... [facility] Radiology Study observation (narrative) [facility] US for pregnancyOrdered By: Juliet Roca on 06-23-2024 [employer] [facility] [employer] [facility] Work Phone: ABO and Rh group Confirm Nom (Bld)on 06-22-2024 ABO group Nom (Bld) A [facility] Health D Ag Ql (RBC) Positive [facility] BLOOD TYPE AND SCREEN GELon 06-22-2024 ABO GROUPING A Normal [facility] Comment on above: Order Comment: HOLD. Specimen is valid for 3 days - nurse to verify valid specimen Performed By: #### L [id number] #### Pumper Helper: JORDYN DUFFY ([phone]) [facility] [address] [place] [address] RH TYPE IN BLOOD Positive Normal [facility] Comment on above: Order Comment: HOLD. Specimen is valid for 3 days - nurse to verify valid specimen Performed By: #### L [id number] #### Pumper Helper: JORDYN DUFFY ([phone]) [facility] ([facility]) [address] [place] [address] Blood type and Crossmatch pa maurice (Bld)on 06-22-2024 ABO group Nom (Bld) A [facility] Blood group antibody screen GEL Ql Negative [facility] D Ag Ql (RBC) Positive [facility] Buprenorphine Scr Uron 06-22 Buprenorphine Ql (U) Negative Normal NEGATIVE Fish er [facility] Comment on above: Result Comment: Nega tive Cutoff: <5 ng/mL These drug screen results are to be used for medical (i.e., treatment) purposes only. Unconfirmed drug screening results must not be used for non-medical purposes (e.g., employment testing, legal testing). Performed By: #### 7 [id number] #### Nick [facility] [address] [place] [address] CHEMISTRYOrdered By: SYSTEM SYSTEM on 06-22-2024 Amphetamines [...] should be collected if clinically indicated. Normal [facility] Comment on above: Performed By: #### L [id number] ####Pumper Helper: JORDYN DUFFY ([phone])[facility])[address] [place] [address] COMPREHENSIVE METABOLIC PANE Dexter 06-22-2024 Albumin [Mass/Vol] 3.2 g/dL Low 3.5-5.0 [facility] Comment on above: Performed By: #### L AB17, [id number] ####Pumper Helper: JORDYN DUFFY ([phone])[facility])[address] [place] [address] ALP [Catalytic activity/Vol] 92 U/L Normal 38-126 [facility] Comment on above: Performed By: #### L AB17, [id number] ####Pumper Helper: JORDYN DUFFY ([phone])[facility])[address] [place] [address] ALT [Catalytic activity/Vol] 9 U/L Normal 0-34 [facility] Comment on above: Performed By: #### L AB17, [id number] ####Pumper Helper: JORDYN DUFFY ([phone])[facility])[address] [place] [address] Anion gap [Moles/Vol] 9 mmol/L Normal 3-13 [facility] Comment on above: Performed By: #### L AB17, [id number] ####Pumper Helper: JORDYN DUFFY ([phone])[facility])[address] [place] [address] AST [Catalytic activity/Vol] 16 U/L Normal 15-46 [facility] Comment on above: Performed By: #### L AB17, [id number] ####Pumper Helper: JORDYN DUFFY ([phone])[facility])[address] [place] [address] Bilirubin [Mass/Vol] 0.2 mg/dL Normal 0.2-1.3 [facility] Comment on above: Performed By: #### L AB17, [id number] ####Pumper Helper: JORDYN DUFFY ([phone])[facility])[address] [place] [address] Calcium [Mass/Vol] 6.8 mg/dL Low 8.4-10.4 [facility] Comment on above: Performed By: #### L AB17, [id number] ####Pumper Helper: JORDYN DUFFY ([phone])[facility] ([facility])[address] [place] [address] Chloride [Moles/Vol] 106 mmol/L Normal 98-107 [facility] Comment on above: Performed By: #### L AB17, [id number] ####Pumper Helper: JORDYN DUFFY ([phone])[facility] ([facility])[address] [place] [address] CO2 [Moles/Vol] 20 mmol/L Low 22-30 [facility] Comment on above: Performed By: #### L AB17, [id number] ####Pumper Helper: JORDYN DUFFY ([phone])[facility])[address] [place] [address] Creatinine [Mass/Vol] 0.50 mg/dL Low 0.52-1.04 [facility] Comment on above: Performed By: #### L AB17, [id number] ####Pumper Helper: JORDYN DUFFY ([phone])[facility])[address] [place] [address] GLOMERULAR FILTRATION RATE ML/MIN/1.73 SQ M.PREDICTED >90.0 Normal >60.0 [facility] Comment on above: Result Comment: Calc ulation based on the Chronic Kidney Disease Epidemiology Collaboration (CKD-EPI) equation refit without adjustment for race Performed By: #### L AB17, [id number] ####Pumper Helper: JORDYN DUFFY ([phone])[facility])[address] [place] [address] Glucose [Mass/Vol] 109 mg/dL High 70-100 [facility] Comment on above: Performed By: #### L AB17, [id number] ####Pumper Helper: JORDYN DUFFY ([phone])[facility] ([facility])[address] [place] [address] Potassium [Moles/Vol] 3.3 mmol/L Low 3.5-5.1 [facility] Comment on above: Performed By: #### L AB17, [id number] ####Pumper Helper: JORDYN DUFFY ([phone])[facility] ([facility])[address] [place] [address] Protein [Mass/Vol] 6.2 g/dL Low 6.3-8.2 [facility] Comment on above: Performed By: #### L AB17, [id number] ####Pumper Helper: JORDYN DUFFY ([phone])[facility] ([facility])[address] [place] [address] Sodium [Moles/Vol] 135 mmol/L Normal 135-145 [facility] Comment on above: Performed By: #### L AB17, [id number] ####Pumper Helper: JORDYN DUFFY ([phone])[facility] ([facility])[address] [place] [address] Urea nitrogen [Mass/Vol] 3 mg/dL Low 7-17 [facility] Comment on above: Performed By: #### L AB17, [id number] ####Pumper Helper: JORDYN DUFFY ([phone])[facility])[address] [place] [address] Comprehensive metabolic 1998 panelon 06-22-2024 Albumin [Mass/Vol] 3.2 g/dL Low 3.5 - 5.0 g/dL [facility] ALP [Catalytic activity/Vol] 92 U/L 38 - 126 U/L [facility] ALT [Catalytic activity/Vol] 9 U/L 0 - 34 U/L [facility] Anion gap [Moles/Vol] 9 mmol/L 3 - 13 mmol/L [facility] AST [Catalytic activity/Vol] 16 U/L 15 - 46 U/L [facility] Bilirubin [Mass/Vol] 0.2 mg/dL 0.2 - 1 .3 mg/dL [facility] Calcium [Mass/Vol] 6.8 mg/dL Low 8.4 - 10. 4 mg/dL [facility] Chloride [Moles/Vol] 106 mmol/L 98 - 10 7 mmol/L [facility] CO2 [Moles/Vol] 20 mmol/L Low 22 - 30 mmol/L [facility] Creatinine [Mass/Vol] 0.5 mg/dL Low 0.52 - 1.04 mg/dL [facility] GFR/1.73 sq M.predicted (S/P/Bld) [Vol rate/Area] - PINF [facility] Comment on above: Calculation based on the Chronic Kidney Disease Epidemiology Collaboration (CKD-EPI) equation refit without adjustment for race Glucose [Mass/Vol] 109 mg/dL High 70 - 100 mg/dL [facility] Interpretation and review of laboratory results Abnormal [facility] Potassium [Moles/Vol] 3.3 mmol/L Low 3.5 - 5.1 mmol/L [facility] Protein [Mass/Vol] 6.2 g/dL Low 6.3 - 8.2 g/dL [facility] Sodium [Moles/Vol] 135 mmol/L 135 - 145 mmol/L [facility] Urea nitrogen [Mass/Vol] 3 mg/dL Low 7 - 17 mg/dL [facility] FIBRINOGENon 06-22-2024 FIBRINOGEN 439 mg/dL High 200-400 [facility] Comment on above: Performed By: #### L [id number], [id number] ####Pumper Helper: JORDYN DUFFY ([phone])[facility])[address] [place] [address] Fibrinogen Coag (PPP) [Mass/ Vol]on 06-22-2024 Interpretation and review of laboratory results Abnormal [facility] HEPATITIS B SURFACE ANTIGENo n 06-22-2024 HEPATITIS B VIRUS SURFACE AG Not detected Normal Not Detected [facility] Comment on above: Performed By: #### L [id number], [id number] ####Pumper Helper: JORDYN DUFFY ([phone])[facility])[address] [place] [address] HEPATITIS C ANTIBODYon 06-22 HCV Ab IA Ql Not detected Normal Not Detected [facility] Comment on above: Result Comment: Glory ents with DETECTED Hepatitis C Ab results should have a new specimen submitted for supplemental testing with a Hepatitis C Quantitative RNA assay (viral load), if clinically indicated. Performed By: #### L [id number], [id number] ####Pumper Helper: JORDYN DUFFY ([phone])[facility] ([id number] Laboratory - Chemistry and C hemistry - challengeOrdered By: Melany Palacio on 06-22-2024 Magnesium [Mass/Vol] 5.5 mg/dL Critically high 1.6 - 2.3 mg/dL [facility] Laboratory - CoagulationOrde red By: Benigno Gonzalez on 06-22-2024 aPTT Coag (PPP) [Time] 25.9 s 20.0 - 30.5 s [facility] INR Coag (PPP) [Relative time] Low 0.9 - 1.1 [facility] Comment on above: Recommended Anticoag ulant Therapy: [...] [Time] 10.1 s 9.0 - 12.0 s [facility] - Coagulationon 1 08-23-2023 Fibrinogen Coag (PPP) [Mass/Vol] 439 mg/dL High 200 - 400 mg/dL [facility] Laboratory - Microbiology an d Antimicrobial susceptibilityon 06-22-2024 HBV surface Ag IA Ql Not detected Not Detected [facility] HCV Ab IA Ql Not detected Not Detected [facility] Comment on above: Patients with DETECT ED Hepatitis C Ab results should have a new specimen submitted for supplemental testing with a Hepatitis C Quantitative RNA assay (viral load), if clinically indicated. MAGNESIUMon 06-22-2024 Magnesium [Mass/Vol] 5.5 mg/dL Critically high 1.6-2.3 [facility] Comment on above: Performed By: #### L [id number], [id number] ####Pumper Helper: JORDYN DUFFY ([phone])[facility])[address] [place] [address] Magnesium [Mass/Vol]Ordered By: Melany Palacio on 06-22-2024 Interpretation and review of laboratory results Abnormal [facility] No Panel Informationon 06-22 Interpretation and review of laboratory results Normal [facility] No Panel InformationOrdered By: Benigno Gonzalez on 06-22-2024 Interpretation and review of laboratory results Abnormal [facility] PROTIME AND APTTon aPTT Coag (Bld) [Time] 25.9 s Normal 20.0-30.5 [facility] Comment on above: Performed By: #### L [id number], [id number] ####Pumper Helper: JORDYN DUFFY ([phone])[facility])[address] [place] [address] INR Coag (PPP) [Relative time] {INR} Low 0.9-1.1 [facility] Comment on above: Result Comment: Abundio mmended [...] prevent Myocardial Infarction Performed By: #### L [id number], [id number] ####Pumper Helper: JORDYN DUFFY ([phone])[facility])[address] [place] [address] PT Coag (PPP) [Time] 10.1 s Normal 9.0-12.0 [facility] Comment on above: Performed By: #### L [id number], [id number] ####Pumper Helper: JORDYN DUFFY ([phone])[facility] ([facility])[address] [place] [address] Progress Noteon 06-22-2024 Progress Note Department of [...] of care with Dr. Roca on-call for [facility] service and will plan for toco [...] Roca DISPOSITION: Admit to Antepartum (PNU) Normal [facility] U Drug Screenon 06-22-2024 Amphetamines Screen method >1000 ng/mL Ql (U) Negative Normal NEGATIVE [facility] Comment on above: Result Comment: Nega tive Cutoff: <1000 ng/mL Performed By: #### 2 [id number] #### [facility] [address] [place] [address] Barbiturates Screen Ql (U) Negative Normal NEGATIVE [facility] Comment on above: Result Comment: Nega tive Cutoff: <200 ng/mL Performed By: #### 2 [id number] #### [facility] [address] [place] [address] Benzodiazepines Ql (U) Negative Normal NEGATIVE [facility] Comment on above: Result Comment: Nega tive Cutoff: <200 ng/mL Performed By: #### 2 [id number] #### [facility] [address] [place] [address] Cannabinoids Screen Ql (U) Negative Normal NEGATIVE [facility] Comment on above: Result Comment: Nega tive Cutoff: <50 ng/mL Performed By: #### 2 [id number] #### [facility] [address] [place] [address] Cocaine Ql (U) Negative Normal NEGATIVE [facility] Comment on above: Result Comment: Nega tive Cutoff: <300 ng/mL Performed By: #### 2 [id number] #### [facility] [address] [place] [address] Opiates Screen Ql (U) Negative Normal NEGATIVE [facility] Comment on above: Result Comment: Nega tive Cutoff: <300 ng/mL Performed By: #### 2 [id number] #### [facility] [address] [place] [address] Phencyclidine Screen method >25 ng/mL Ql (U) Negative Normal NEGATIVE [facility] Comment on above: Result Comment: Nega tive Cutoff: <25 ng/mL These drug screen results are to be used for medical (i.e., treatment) purposes only. Unconfirmed drug screening results must not be used for non-medical purposes (e.g., employment testing, legal testing). Performed By: #### 2 [id number] #### [facility] [address] [place] [address] U Fentanyl Negative Normal NEGATIVE [facility] Comment on above: Result Comment: Nega tive Cutoff: <5 ng/mL These drug screen results are to be used for medical (i.e., treatment) purposes only. Unconfirmed drug screening results must not be used for non-medical purposes (e.g., employment testing, legal testing). Performed By: #### 2 [id number] #### [facility] [address] [place] [address] URINE CULTUREon 06-22-2024 Bacteria identified Cx Nom (U) URINE CULTURE Reference No growth (<1,000 CFU/mL) [ S = SUSCEPTIBLE R = RESISTANT I = INTERMEDIATE S-DD = Susceptible-dose dependent NS = Non-susceptible NO = No Interpretation ] Normal [facility] Comment on above: Performed By: #### L [id number] ####Pumper Helper: JORDYN DUFFY ([phone])[facility])[address] [place] [address] US Limitedon 06-22 US Limited Exam Date/Time: [...] cm in longitudinal length. PLACENTA: A grade 0-3-jawuucwzj placenta is anterior/fundal without evidence of placenta [...] Fluid Volume CHEMA (cm) 10.9 Normal Normal [facility] VAGINITIS PANEL MVP PCRon VAGINITIS PANEL [...] abuse or for other forensic purposes. Normal [facility] Comment on above: Performed By: #### L [id number] ####Pumper Helper: JORDYN DUFFY ([phone])[address] ABO/Rhon 06-21-2024 ABO/Rh Positive Invalid Interpretation Code [facility] Comment on above: Performed By: #### 2 [id number] #### [facility] [address] [place] [address] ABO/Rh History Checkon 06-21 ABO/Rh History Check Verified Hx Blood Type Normal [facility] Comment on above: Performed By: #### 1 [id number] #### [facility] [address] [place] [address] ABSCon 06-21-2024 ABSC Gel Interp Negative Normal [facility] Comment on above: Performed By: #### 1 [id number] #### [facility] [address] [id number] BLOOD BANKOrdered By: Cora Devi on 06-21-2024 ABO/Rh Interp Positive Invalid Interpretation Code [facility] BB Subsection ABSC Gel Interp Negative (06/21/24 5:33 PM) Normal [facility] BB Subsection BLOOD BANKOrdered By: Jessica Hollis on 06-21-2024 FMHV 0 mL Invalid Interpretation Code [facility] HemeManSS BUNon 06-21-2024 Urea nitrogen [Mass/Vol] 9 mg/dL Normal 5-21 [facility] Comment on above: Performed By: #### 2 [id number] #### [facility] [address] [place] [address] Blood Bank ID#on 06-21-2024 BBID# [id number] Invalid Interpretation Code [facility] Comment on above: Performed By: #### 1 [id number] #### [facility] [address] [place] [address] CBC w/Indiceson 06-21-2024 Erythrocyte distribution width (RBC) [Ratio] 12.6 % Normal 10.9-14.2 [facility] Comment on above: Performed By: #### 2 [id number] #### [facility] [address] [place] [address] Hematocrit (Bld) [Volume fraction] 33.6 % Low 34.0-46.0 [facility] Comment on above: Performed By: #### 2 [id number] #### [facility] [address] [place] [address] Hemoglobin (Bld) [Mass/Vol] 11.7 g/dL Low 12.0-16.0 [facility] Comment on above: Performed By: #### 2 [id number] #### [facility] [address] [place] [address] MCH (RBC) [Entitic mass] 29.8 pg Normal 27.0-34.0 [facility] Comment on above: Performed By: #### 2 [id number] #### [facility] [address] [place] [address] MCHC (RBC) [Mass/Vol] 34.7 g/dL Normal 31.4-36.0 [facility] Comment on above: Performed By: #### 2 [id number] #### [facility] [address] [place] [address] MCV (RBC) [Entitic vol] 85.8 fL Normal 80.0-100.0 [facility] Comment on above: Performed By: #### 2 [id number] #### [facility] [address] [place] [address] Platelet 320.0 E9/L Normal 150.0-500.0 [facility] Comment on above: Performed By: #### 2 [id number] #### [facility] [address] [place] [address] Platelet mean volume (Bld) [Entitic vol] 7.7 fL Normal 6.4-10.8 [facility] Comment on above: Performed By: #### 2 [id number] #### [facility] [address] [place] [address] RBC (Bld) [#/Vol] 3.9 E12/L Low 4.3-5.9 [facility] Comment on above: Performed By: #### 2 [id number] #### [facility] [address] [place] [address] RBC size Nom (Bld) NORMAL Invalid Interpretation Code [facility] Comment on above: Performed By: #### 2 [id number] #### [facility] [address] [place] [address] WBC corrected for nucl RBC Auto (Bld) [#/Vol] 12.5 E9/L High 4.0-11.0 [facility] Comment on above: Performed By: #### 2 [id number] #### [facility] [address] [place] [address] CHEMISTRYOrdered By: SYSTEM SYSTEM on 06-21-2024 Albumin [...] 21 mg/dL [facility] Chem COAGULATIONOrdered By: Lyn isaiah Hollis on 06-21-2024 aPTT Coag (PPP) [Time] 28.6 s Normal 25.1 - 36.5 second(s) [facility] Auto Coag Comment on above: Interpretive Data: P arameter 15 days - 4 weeks 1 - [...] the same coagulation reagent and instrumentation as [facility]. Currently there are no coagulation studies available worldwide for children to 14 days, and no normal ranges. Heparin therapeutic range (represented by Anti-Factor Xa activity of 0.2 - 0.4 U/mL) corresponds to PTT of 56.6 - 109.0 sec. Fibrinogen Coag (PPP) [Mass/Vol] 472 mg/dL High 200 - 393 mg/dL [facility] Auto Coag INR Coag (PPP) [Relative time] 0.96 {INR} Invalid Interpretation Code [facility] Comment on above: Interpretive Data: I NR results are specifically intended to assess patients stabilized on long-term Anticoagulation therapy suggested INR s Less Intensive Anticoagulation 2.0 3.0 Conventional Range 3.0 4.5 PT Coag (PPP) [Time] 10.7 s Normal 9.4 - 1 2.5 second(s) [facility] Comment on above: Interpretive Data: [...] the same coagulation reagent and instrumentation as [facility]. Currently there are no coagulation studies available worldwide for children to 14 days, and no normal ranges. Creatinineon 06-21-2024 Creatinine [Mass/Vol] 0.6 mg/dL Normal 0.5-1.3 [facility] Comment on above: Performed By: #### 2 [id number] #### [facility] [address] [place] [address] Stainon 06-21-2024 FMHV 0 mL Invalid Interpretation Code [facility] Comment on above: Performed By: #### 1 [id number] #### [facility] [address] [place] [address] Negative Control Negative Normal [facility] Comment on above: Performed By: #### 1 [id number] #### [facility] [address] [place] [address] Fibrinogenon 06-21-2024 Fibrinogen Coag (PPP) [Mass/Vol] 472 mg/dL High 200-393 [facility] Comment on above: Performed By: #### 2 [id number] #### [facility] [address] [place] [address] HEMATOLOGYOrdered By: SYSTEM SYSTEM on 06-21-2024 Erythrocyte [...] 06-21-2024 Albumin [Mass/Vol] 3.7 g/dL Normal 3.3-5.0 [facility] Comment on above: Performed By: #### 2 [id number] #### [facility] [address] [place] [address] Albumin/Globulin (S) [Mass conc ratio] 1.2 Normal 1.1-2.2 [facility] Comment on above: Performed By: #### 2 [id number] #### [facility] [address] [place] [address] ALP [Catalytic activity/Vol] 80 Int._Unit/L Normal 21-98 [facility] Comment on above: Performed By: #### 2 [id number] #### [facility] [address] [place] [address] ALT No additional P-5'-P [Catalytic activity/Vol] 8 Int._Unit/L Normal 6-46 [facility] Comment on above: Performed By: #### 2 739285 #### [facility] [address] [place] [address] AST [Catalytic activity/Vol] 12 Int._Unit/L Normal 5-43 [facility] Comment on above: Performed By: #### 2 [id number] #### [facility] [address] [place] [address] Bilirubin [Mass/Vol] 0.6 mg/dL Normal 0.0-1.1 [facility] Comment on above: Performed By: #### 2 [id number] #### [facility] [address] [place] [address] Bilirubin.direct [Mass/Vol] 0.0 mg/dL Normal 0.0-0.4 [facility] Comment on above: Performed By: #### 2 [id number] #### [facility] [address] [place] [address] Bilirubin.indirect [Mass or moles/Vol] 0.6 mg/dL Normal 0.1-0.9 [facility] Comment on above: Performed By: #### 2 [id number] #### [facility] [address] [place] [address] Globulin (S) [Mass/Vol] 3.1 g/dL Normal 1.4-4.0 [facility] Comment on above: Performed By: #### 2 [id number] #### [facility] [address] [place] [address] Protein [Mass/Vol] 6.8 g/dL Normal 6.0-7.8 [facility] Comment on above: Performed By: #### 2 [id number] #### [facility] [address] [place] [address] Inpatient Clinical Summaryon 06-21-2024 Inpatient Clinical Summary Inpatient Clinical Summary [address] [address] Clinical Summary Person Information Name: LUZ HINOJOSA/[facility] Age: 23 Years : 2000 Sex: Female PCP: NONE, XXXX Marital Status: Phone: [phone] Race: White Ethnicity: Non- or Language: Turkish Visit Id: Visit Reason: BLOOD DISCHARGE Speciality: Acuity: Enc Type: Outpatient in a Bed Med Service: Obstetrics Arrival: 06/21/2024 16:32:45 Discharge: 06/21/2024 21:02:00 Dispo Type: Home ([facility]) Address: [address] [facility] [id number] Provider Notes: Diagnosis: Problems Active (11/27/2023) Smoking [...] Physician: Follow up: With: Address: When: Anika Jordanten Mariah [address], [address], [place] [address] Business (1) In 2 days 06/23/2024 Comments: Call for any problems. 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 Patient Education Information: Normal [facility] Inpatient Patient Summaryon 06-21-2024 Inpatient Patient Summary Inpatient Patient Summary [address] [address] Patient Discharge Instructions PERSON INFORMATION [...] results: Follow up: With: Address: When: Anika Jordanten Mariah [address], [address], [place] [address] [employer] (1) In 2 days 06/23/2024 Comments: Call for any problems. 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 Keep current appt scheduled for SundayJun 23. [...] You may receive a survey from Lana Giordano asking you to rate your care experience. [...] signed up for this yet, please contact [employer] at [phone] to get signed up today. COOPER Award [...] QR code below. Thank you for choosing [facility] Normal [facility] Lyteson 06-21-2024 Anion gap [Moles/Vol] 12 mmol/L Normal 6-16 [facility] Comment on above: Performed By: #### 2 [id number] #### [facility] [address] [place] [address] Chloride [Moles/Vol] 104 mmol/L Normal 101-111 [facility] Comment on above: Performed By: #### 2 [id number] #### [facility] [address] [place] [address] CO2 [Moles/Vol] 23 mmol/L Normal 21-31 [facility] Comment on above: Performed By: #### 2 [id number] #### [facility] [address] [place] [address] Potassium [Moles/Vol] 3.3 mmol/L Low 3.5-5.3 [facility] Comment on above: Performed By: #### 2 [id number] #### [facility] [address] [place] [address] Sodium [Moles/Vol] 136 mmol/L Normal 135-145 [facility] Comment on above: Performed By: #### 2 [id number] #### [facility] [address] [place] [address] PT & PTTon 11-30-2024 aPTT Coag (PPP) [Time] 28.6 second(s) Normal 25.1-36.5 [facility] Comment on above: Result Comment: Para [...] the same coagulation reagent and instrumentation as [facility]. Currently there are no coagulation studies available worldwide for children to 14 days, and no normal ranges. Heparin therapeutic range (represented by Anti-Factor Xa activity of 0.2 - 0.4 U/mL) corresponds to PTT of 56.6 - 109.0 sec. Performed By: #### 1 [id number] #### [facility] [address] [place] [address] INR Coag (PPP) [Relative time] 0.96 {INR} Invalid Interpretation Code [facility] Comment on above: Result Comment: INR results are specifically intended to assess patients stabilized on long-term Anticoagulation therapy suggested INR???s ???Less Intensive Anticoagulation??? 2.0 ??? 3.0 Conventional Range 3.0 ??? 4.5 Performed By: #### 1 [id number] #### [facility] [address] [place] [address] PT Coag (PPP) [Time] 10.7 second(s) Normal 9.4-12.5 [facility] Comment on above: Result Comment: 15 [...] the same coagulation reagent and instrumentation as [facility]. Currently there are no coagulation studies available worldwide for children to 14 days, and no normal ranges. Performed By: #### 1 [id number] #### [facility] [address] [place] [address] UA with Cult [employer] 06-21-20 Bacteria Auto Ql (U) 1+ /HPF Abnormal Trace [facility] Comment on above: Performed By: #### 4 [id number] #### [facility] [address] [place] [address] Bilirubin Ql (U) Negative Normal Negative [facility] Comment on above: Performed By: #### 4 [id number] #### [facility] [address] [place] [address] Clarity (U) Turbid Abnormal Clear [facility] Comment on above: Performed By: #### 4 [id number] #### [facility] [address] [place] [address] Color (U) Yellow Normal Yellow [facility] Comment on above: Result Comment: Micr oscopic readings are only performed on those samples that meet specific criteria set forth by [facility]. Performed By: #### 4 [id number] #### [facility] [address] [place] [address] Epithelial cells.squamous Auto (Urine sed) [#/Area] >10 Invalid Interpretation Code [facility] Comment on above: Performed By: #### 4 [id number] #### [facility] [address] [place] [address] Glucose Ql (U) Negative Normal Negative [facility] Comment on above: Performed By: #### 4 [id number] #### [facility] [address] [place] [address] Hemoglobin Auto test strip (U) [Mass/Vol] 1+ mg/dL Abnormal Negative [facility] Comment on above: Performed By: #### 4 [id number] #### [facility] [address] [place] [address] Ketones Auto test strip Ql (U) 2+ mg/dL Abnormal Negative [facility] Comment on above: Performed By: #### 4 [id number] #### [facility] [address] [place] [address] Leukocyte esterase Auto test strip Ql (U) 75 Daniele/uL Abnormal Negative [facility] Comment on above: Performed By: #### 4 [id number] #### [facility] [address] [place] [address] Mucus Auto Ql (U) 1+ [id number] Abnormal Negative [facility] Comment on above: Performed By: #### 4 [id number] #### [facility] [address] [place] [address] Nitrite Auto test strip Ql (U) Negative Normal Negative [facility] Comment on above: Performed By: #### 4 [id number] #### [facility] [address] [place] [address] pH (U) 6.0 [pH] Invalid Interpretation Code 5.0-9.0 [facility] Comment on above: Performed By: #### 4 [id number] #### [facility] [address] [place] [address] Protein Ql (U) Trace Abnormal Negative [facility] Comment on above: Performed By: #### 4 [id number] #### [facility] [address] [place] [address] RBC Ql (U) 0-3 Normal 0-3 [facility] Comment on above: Performed By: #### 4 [id number] #### [facility] [address] [place] [address] Specific gravity (U) [Rel density] 1.026 Invalid Interpretation Code 1.005-1.030 [facility] Comment on above: Performed By: #### 4 [id number] #### [facility] [address] [place] [address] Urobilinogen (U) [Mass/Vol] 3 mg/dL Abnormal Negative [facility] Comment on above: Performed By: #### 4 [id number] #### [facility] [address] [place] [address] WBC Auto (Urine sed) [#/Area] 0-5 Normal 0-5 [facility] Comment on above: Performed By: #### 4 [id number] #### [facility] [address] [place] [address] Type of Urine collection method Clean Catch Normal [facility] Comment on above: Performed By: #### 4 [id number] #### [facility] [address] [place] [address] URINALYSISOrdered By: SYSTEM SYSTEM on 06-21-2024 Bacteria Auto Ql (U) 1+ /HPF Invalid Interpretation Code Trace/HPF [facility] UA Auto SS Bilirubin Ql (U) Negative Normal Negativemg/ d L [facility] UA Auto SS Clarity (U) Turbid *ABN* (06/21/24 4:47 PM) Invalid Interpretation Code Clear [facility] UA Auto SS Color (U) Yellow 1 (06/21/24 4:47 PM) Normal Yellow [facility] UA Auto SS Comment on above: Interpretive Data: M icroscopic readings are only performed on those samples that meet specific criteria set forth by [facility]. Epithelial cells.squamous Auto (Urine sed) [...] Desc Clean Catch (06/21/24 4:47 PM) Normal [facility] UA Auto SS Uric Acidon 06-21-2024 Urate [Mass/Vol] 3.6 mg/dL Normal 2.2-7.4 [facility] Comment on above: Performed By: #### 2 [id number] #### [facility] [address] [place] [address] eGFRon 06-21-2024 eGFR 129 mL/min/1.73 m2 Normal >=59 [facility] Comment on above: Performed By: #### 1 [id number] #### [facility] [address] [place] [address] CBC panel Auto (Bld)on 06-18 Hematocrit (Bld) [Volume fraction] 33 % [facility] Hemoglobin (Bld) [Mass/Vol] 11.2 g/dL [facility] CHEMISTRYOrdered By: codetag SYSTEM on 06-18-2024 Glucose [Mass/Vol] 113 mg/dL Normal 55 - 140 mg/dL Remisol Chem Glucose [Mass/Vol] 166 mg/dL High 55 - 155 mg/dL Remisol Chem Glucose [Mass/Vol] 171 mg/dL Normal 55 - 180 mg/dL Remisol Chem Glucose [Mass/Vol] 76 mg/dL Normal 55 - 99 mg/dL Remisol Chem CHEMISTRYOrdered By: Lucia MENDOZA User on 06-18-2024 Glucose [Mass/Vol] 79 mg/dL Normal 55 - 99 mg/dL [facility] POC Subsection POC Device SN [id number] Invalid Interpretation Code [facility] POC Subsection POC User ID [id number] 1 Invalid Interpretation Code [facility] POC Subsection POC Usernamgo GAUTAMKAYTOMMY WOLFE Invalid Interpretation Code [facility] POC Subsection Capillary Glucose POCon 05-24 Glucose [Mass/Vol] 79 mg/dL Normal 55-99 [facility] Comment on above: Performed By: #### 2 [id number] #### [facility] [address] [place] [address] Glu 1 Hron 06-18-2024 Glucose [Mass/Vol] 171 mg/dL Normal 55-180 [facility] Comment on above: Performed By: #### 2 [id number] #### [facility] [address] [place] [address] Glu 2 Hron 06-18-2024 Glucose [Mass/Vol] 166 mg/dL High 55-155 [facility] Comment on above: Performed By: #### 2 [id number] #### [facility] [address] [place] [address] Glu 3 Hron 06-18-2024 Glucose [Mass/Vol] 113 mg/dL Normal 55-140 [facility] Comment on above: Performed By: #### 2 [id number] #### [facility] [address] [place] [address] Glu Fastingon 06-18-2024 Glucose [Mass/Vol] 76 mg/dL Normal 55-99 [facility] Comment on above: Performed By: #### 2 [id number] #### [facility] [address] [place] [address] Gest Scr Glu 1 Hron 06-16-20 Glucose [Mass/Vol] 142 mg/dL High 55-140 [facility] Comment on above: Performed By: #### 3 [id number] #### [facility] [address] [place] [address] Glu 1 Hron 06-16-2024 Gluc 1 Hr See comment Invalid Interpretation Code 55-180 [facility] Comment on above: Result Comment: Wron g test ordered. Corrected report sent with correct order of a Gestational Screen 1 hour glucose. Performed By: #### 2 [id number] #### [facility] [address] [place] [address] RPR with Conf Rfxon 06-14-20 24 Reagin Ab RPR Ql (S) Non-Reactive Invalid Interpretation Code Non Reactive [facility] Comment on above: Result Comment: Perf ormed at: [facility] [address] [id number] PhD Tim Quezada Performed By: #### 1 [id number] #### [facility] [address] [place] [address] CHEMISTRYOrdered By: SYSTEM SYSTEM on 06-13-2024 Glucose [Mass/Vol] 142 mg/dL Normal 55 - 180 mg/dL Remisol Chem Glu 1 Hron 06-13-2024 Glucose [Mass/Vol] 142 mg/dL Normal 55-180 [facility] Comment on above: Performed By: #### 2 [id number] #### [facility] [address] [place] [address] HEMATOLOGYOrdered By: SYSTEM SYSTEM on 06-13-2024 Hematocrit (Bld) [Volume fraction] 32.5 % Low 34.0 - 46.0 % Remisol Heme Hemoglobin (Bld) [Mass/Vol] 11.2 g/dL Low 12.0 - 16.0 gm/dL Remisol Heme Hematocriton 06-13-2024 Hematocrit (Bld) [Volume fraction] 32.5 % Low 34.0-46.0 [facility] Comment on above: Performed By: #### 2 [id number] #### [facility] [address] [place] [address] Hemoglobinon 06-13-2024 Hemoglobin (Bld) [Mass/Vol] 11.2 g/dL Low 12.0-16.0 [facility] Comment on above: Performed By: #### 2 [id number] #### [facility] [address] [place] [address] C Urineon 06-05-2024 Bacteria identified Cx Nom [...] Locations R1: This test was performed at: [facility], [address] [place] [address], [id number], Normal [facility] Comment on above: Performed By: #### 2 [id number] #### [facility] [address] [place] [address] Inpatient Clinical Summaryon 06-05-2024 Inpatient Clinical Summary Inpatient Clinical Summary [address] [address] Clinical Summary Person Information Name: LUZ HINOJOSA/[facility] Age: 23 Years : 2000 Sex: Female PCP: NONE, XXXX Marital Status: Phone: [phone] Race: White Ethnicity: Non- or Language: Turkish Visit Id: Visit Reason: 27 WEEKS , CONTRACTIONS Speciality: Acuity: Obs Enc Type: Observation Med Service: Obstetrics Arrival: 06/03/2024 20:07:36 Discharge: 06/05/2024 14:16:23 Dispo Type: Home (Routine DC) Address: [address] [place], [place] [address] [address] [id number] Provider Notes: Diagnosis: 27 weeks gestation of [...] /HPF UA Bili: Negative mg/dL UA Color: Light-[place] UA Glucose: Negative mg/dL UA Ketones: 3+ [...] Follow up: With: Address: When: Dr. Bob [phone] Within 3 to 4 days Comments: Call for any problems. Call physician for heavy vaginal bleeding Call physician if sy (more content not included)... Normal [facility] Inpatient Patient Summaryon 06-05-2024 Inpatient Patient Summary Inpatient Patient Summary [place] [id number] Patient Discharge Instructions PERSON INFORMATION Name: LUZ [...] Follow up: With: Address: When: Dr. Bob [phone] Within 3 to 4 days Comments: Call [...] Clinican/Nurse Signature Date MEDICATION LIST New Medications [facility] 1985, [address] [place], [place] [id number], [phone] cephalexin (Keflex 500 mg Cap) 1 Capsules By Mouth 4 times a day for 7 Days. Refills: 0. Last Dose: _Next Dose: _ Medications to Continue with No Changes Other Medications multivitamin, ( Multivitamins) 1 Tablets By Mouth every day. Last Dose: _Next Dose: _ Pharmacy Information: PATIENT EDUCATION INFORMATION Instructions: Medication Leaflets: You may receive a survey from [employer] asking you to rate your care experience. [...] signed up for this yet, please contact [employer] at [phone] to get signed up today. COOPER Award [...] QR code below. Thank you for choosing [facility] Normal [facility] BLOOD BANKOrdered By: Joshua Guthrie on 06-04-2024 FMHV 0 mL Invalid Interpretation Code [facility] HemeManSS BUNon 06-04-2024 Urea nitrogen [Mass/Vol] 6 mg/dL Normal 5-21 [facility] Comment on above: Performed By: #### 2 [id number] #### [facility] [address] [place] [address] CBC w/Indiceson 06-04-2024 Erythrocyte distribution width (RBC) [Ratio] 12.6 % Normal 10.9-14.2 [facility] Comment on above: Performed By: #### 2 [id number] #### [facility] [address] [place] [address] Hematocrit (Bld) [Volume fraction] 33.7 % Low 34.0-46.0 [facility] Comment on above: Performed By: #### 2 [id number] #### [facility] [address] [place] [address] Hemoglobin (Bld) [Mass/Vol] 11.6 g/dL Low 12.0-16.0 [facility] Comment on above: Performed By: #### 2 [id number] #### [facility] [address] [place] [address] MCH (RBC) [Entitic mass] 29.8 pg Normal 27.0-34.0 [facility] Comment on above: Performed By: #### 2 [id number] #### [facility] [address] [place] [address] MCHC (RBC) [Mass/Vol] 34.5 g/dL Normal 31.4-36.0 [facility] Comment on above: Performed By: #### 2 [id number] #### [facility] [address] [place] [address] MCV (RBC) [Entitic vol] 86.5 fL Normal 80.0-100.0 [facility] Comment on above: Performed By: #### 2 [id number] #### [facility] [address] [place] [address] Platelet mean volume (Bld) [Entitic vol] 8.4 fL Normal 6.4-10.8 [facility] Comment on above: Performed By: #### 2 [id number] #### [facility] [address] [place] [address] Platelets (Bld) [#/Vol] 315.0 E9/L Normal 150.0-500.0 [facility] Comment on above: Performed By: #### 2 [id number] #### [facility] [address] [place] [address] RBC (Bld) [#/Vol] 3.9 E12/L Low 4.3-5.9 [facility] Comment on above: Performed By: #### 2 [id number] #### [facility] [address] [place] [address] RBC size Nom (Bld) NORMAL Invalid Interpretation Code [facility] Comment on above: Performed By: #### 2 [id number] #### [facility] [address] [place] [address] WBC corrected for nucl RBC Auto (Bld) [#/Vol] 14.6 E9/L High 4.0-11.0 [facility] Comment on above: Performed By: #### 2 [id number] #### [facility] [address] [place] [address] CHEMISTRYOrdered By: SYSTEM SYSTEM on 06-04-2024 Albumin [...] 26.6 s Normal 25.1 - 36.5 second(s) [facility] Comment on above: Interpretive Data: P arameter 15 days - 4 weeks 1 - [...] the same coagulation reagent and instrumentation as [facility]. Currently there are no coagulation studies available worldwide for children to 14 days, and no normal ranges. Heparin therapeutic range (represented by Anti-Factor Xa activity of 0.2 - 0.4 U/mL) corresponds to PTT of 56.6 - 109.0 sec. Fibrinogen Coag (PPP) [Mass/Vol] 460 mg/dL High 200 - 393 mg/dL [facility] Auto Coag INR Coag (PPP) [Relative time] 0.94 {INR} Invalid Interpretation Code [facility] Comment on above: Interpretive Data: I NR results are specifically intended to assess patients stabilized on long-term Anticoagulation therapy suggested INR s Less Intensive Anticoagulation 2.0 3.0 Conventional Range 3.0 4.5 PT Coag (PPP) [Time] 10.5 s Normal 9.4 - 1 2.5 second(s) [facility] Comment on above: Interpretive Data: [...] the same coagulation reagent and instrumentation as [facility]. Currently there are no coagulation studies available worldwide for children to 14 days, and no normal ranges. Creatinineon 06-04-2024 Creatinine [Mass/Vol] 0.6 mg/dL Normal 0.5-1.3 [facility] Comment on above: Performed By: #### 2 [id number] #### [facility] [address] [place] [address] Stainon 06-04-2024 FMHV 0 mL Invalid Interpretation Code [facility] Comment on above: Performed By: #### 1 [id number] #### [facility] [address] [place] [address] Negative Control Negative Normal [facility] Comment on above: Performed By: #### 1 [id number] #### [facility] [address] [place] [address] Fibrinogenon 06-04-2024 Fibrinogen Coag (PPP) [Mass/Vol] 460 mg/dL High 200-393 [facility] Comment on above: Performed By: #### 2 [id number] #### [facility] [address] [place] [address] HEMATOLOGYOrdered By: SYSTEM SYSTEM on 06-04-2024 Erythrocyte [...] 06-04-2024 Albumin [Mass/Vol] 3.5 g/dL Normal 3.3-5.0 [facility] Comment on above: Performed By: #### 2 [id number] #### [facility] [address] [place] [address] Albumin/Globulin (S) [Mass conc ratio] 1.2 Normal 1.1-2.2 [facility] Comment on above: Performed By: #### 2 [id number] #### [facility] [address] [place] [address] ALP [Catalytic activity/Vol] 64 Int._Unit/L Normal 21-98 [facility] Comment on above: Performed By: #### 2 [id number] #### [facility] [address] [place] [address] ALT No additional P-5'-P [Catalytic activity/Vol] 6 Int._Unit/L Normal 6-46 [facility] Comment on above: Performed By: #### 2 [id number] #### [facility] [address] [place] [address] AST [Catalytic activity/Vol] 12 Int._Unit/L Normal 5-43 [facility] Comment on above: Performed By: #### 2 [id number] #### [facility] [address] [place] [address] Bilirubin [Mass/Vol] 0.3 mg/dL Normal 0.0-1.1 [facility] Comment on above: Performed By: #### 2 [id number] #### [facility] [address] [place] [address] Bilirubin.direct [Mass/Vol] 0.1 mg/dL Normal 0.0-0.4 [facility] Comment on above: Performed By: #### 2 [id number] #### [facility] [address] [place] [address] Bilirubin.indirect [Mass or moles/Vol] 0.2 mg/dL Normal 0.1-0.9 [facility] Comment on above: Performed By: #### 2 [id number] #### [facility] [address] [place] [address] Globulin (S) [Mass/Vol] 2.9 g/dL Normal 1.4-4.0 [facility] Comment on above: Performed By: #### 2 [id number] #### [facility] [address] [place] [address] Protein [Mass/Vol] 6.4 g/dL Normal 6.0-7.8 [facility] Comment on above: Performed By: #### 2 [id number] #### [facility] [address] [place] [address] Lyteson 06-04-2024 Anion gap [Moles/Vol] 13 mmol/L Normal 6-16 [facility] Comment on above: Performed By: #### 2 [id number] #### [facility] [address] [place] [address] Chloride [Moles/Vol] 105 mmol/L Normal 101-111 [facility] Comment on above: Performed By: #### 2 [id number] #### [facility] [address] [place] [address] CO2 [Moles/Vol] 21 mmol/L Normal 21-31 [facility] Comment on above: Performed By: #### 2 [id number] #### [facility] [address] [place] [address] Potassium [Moles/Vol] 3.4 mmol/L Low 3.5-5.3 [facility] Comment on above: Performed By: #### 2 [id number] #### [facility] [address] [place] [address] Sodium [Moles/Vol] 136 mmol/L Normal 135-145 [facility] Comment on above: Performed By: #### 2 900362 #### [facility] [address] [place] [address] PT & PTTon 06-04-2024 aPTT Coag (PPP) [Time] 26.6 second(s) Normal 25.1-36.5 [facility] Comment on above: Result Comment: Para [...] the same coagulation reagent and instrumentation as [facility]. Currently there are no coagulation studies available worldwide for children to 14 days, and no normal ranges. Heparin therapeutic range (represented by Anti-Factor Xa activity of 0.2 - 0.4 U/mL) corresponds to PTT of 56.6 - 109.0 sec. Performed By: #### 1 [id number] #### [facility] [address] [place] [address] INR Coag (PPP) [Relative time] 0.94 {INR} Invalid Interpretation Code [facility] Comment on above: Result Comment: INR results are specifically intended to assess patients stabilized on long-term Anticoagulation therapy suggested INR???s ???Less Intensive Anticoagulation??? 2.0 ??? 3.0 Conventional Range 3.0 ??? 4.5 Performed By: #### 1 [id number] #### [facility] [address] [place] [address] PT Coag (PPP) [Time] 10.5 second(s) Normal 9.4-12.5 [facility] Comment on above: Result Comment: 15 [...] the same coagulation reagent and instrumentation as [facility]. Currently there are no coagulation studies available worldwide for children to 14 days, and no normal ranges. Performed By: #### 1 [id number] #### [facility] [address] [place] [address] U Drug Screenon 06-04-2024 Amphetamines Screen method >1000 ng/mL Ql (U) Negative Normal NEGATIVE [facility] Comment on above: Result Comment: Nega tive Cutoff: <1000 ng/mL Performed By: #### 2 [id number] #### [facility] [address] [place] [address] Barbiturates Screen Ql (U) Negative Normal NEGATIVE [facility] Comment on above: Result Comment: Nega tive Cutoff: <200 ng/mL Performed By: #### 2 [id number] #### [facility] [address] [place] [address] Benzodiazepines Ql (U) Negative Normal NEGATIVE [facility] Comment on above: Result Comment: Nega tive Cutoff: <200 ng/mL Performed By: #### 2 [id number] #### [facility] [address] [place] [address] Cannabinoids Screen Ql (U) Negative Normal NEGATIVE [facility] Comment on above: Result Comment: Nega tive Cutoff: <50 ng/mL Performed By: #### 2 [id number] #### [facility] [address] [place] [address] Cocaine Ql (U) Negative Normal NEGATIVE [facility] Comment on above: Result Comment: Nega tive Cutoff: <300 ng/mL Performed By: #### 2 [id number] #### [facility] [address] [place] [address] Opiates Screen Ql (U) Negative Normal NEGATIVE [facility] Comment on above: Result Comment: Nega tive Cutoff: <300 ng/mL Performed By: #### 2 [id number] #### [facility] [address] [place] [address] Phencyclidine Screen method >25 ng/mL Ql (U) Negative Normal NEGATIVE [facility] Comment on above: Result Comment: Nega tive Cutoff: <25 ng/mL These drug screen results are to be used for medical (i.e., treatment) purposes only. Unconfirmed drug screening results must not be used for non-medical purposes (e.g., employment testing, legal testing). Performed By: #### 2 [id number] #### [facility] [address] [place] [address] U Fentanyl Negative Normal NEGATIVE [facility] Comment on above: Result Comment: Nega tive Cutoff: <5 ng/mL These drug screen results are to be used for medical (i.e., treatment) purposes only. Unconfirmed drug screening results must not be used for non-medical purposes (e.g., employment testing, legal testing). Performed By: #### 2 [id number] #### [facility] [address] [place] [address] Uric Acidon 06-04-2024 Urate [Mass/Vol] 4.0 mg/dL Normal 2.2-7.4 [facility] Comment on above: Performed By: #### 2 [id number] #### [facility] [address] [place] [address] eGFRon 06-04-2024 eGFR 129 mL/min/1.73 m2 Normal >=59 [facility] Comment on above: Performed By: #### 1 [id number] #### [facility] [address] [place] [address] CHEMISTRYOrdered By: SYSTEM SYSTEM on 06-03-2024 Amphetamines [...] ng/mL Opiates Screen Ql (U) NEGATIVE 4 (06/03/24 8:25 PM) Normal NEGATIVE Remisol Chem [...] Nom (U) 3,000 cfu/ml Mixed skin contaminants [facility] UA with Cult [employer] 06-03-20 Bacteria Auto Ql (U) 3+ /HPF Abnormal Trace Fish er [facility] Comment on above: Performed By: #### 4 [id number] #### [facility] [address] [place] [address] Bilirubin Ql (U) Negative Normal Negative [facility] Comment on above: Performed By: #### 4 [id number] #### [facility] [address] [place] [address] Clarity (U) Ex.Turbid Abnormal Clear [facility] Comment on above: Performed By: #### 4 [id number] #### [facility] [address] [place] [address] Color (U) Light-[place] Abnormal Yellow [facility] Comment on above: Result Comment: Micr oscopic readings are only performed on those samples that meet specific criteria set forth by [facility]. Performed By: #### 4 [id number] #### [facility] [address] [place] [address] Epithelial cells.squamous Auto (Urine sed) [#/Area] >10 Invalid Interpretation Code [facility] Comment on above: Performed By: #### 4 [id number] #### [facility] [address] [place] [address] Glucose Ql (U) Negative Normal Negative [facility] Comment on above: Performed By: #### 4 [id number] #### [facility] [address] [place] [address] Hemoglobin Auto test strip (U) [Mass/Vol] Negative Normal Negative [facility] Comment on above: Performed By: #### 4 [id number] #### [facility] [address] [place] [address] Ketones Auto test strip Ql (U) 3+ mg/dL Abnormal Negative [facility] Comment on above: Performed By: #### 4 [id number] #### [facility] [address] [place] [address] Leukocyte esterase Auto test strip Ql (U) 500 Daniele/uL Abnormal Negative [facility] Comment on above: Performed By: #### 4 [id number] #### [facility] [address] [place] [address] Mucus Auto Ql (U) Trace Normal Negative [facility] Comment on above: Performed By: #### 4 [id number] #### [facility] [address] [place] [address] Nitrite Auto test strip Ql (U) Negative Normal Negative [facility] Comment on above: Performed By: #### 4 [id number] #### [facility] [address] [place] [address] pH (U) 6.0 [pH] Invalid Interpretation Code 5.0-9.0 [facility] Comment on above: Performed By: #### 4 [id number] #### [facility] [address] [place] [address] Protein Ql (U) 1+ mg/dL Abnormal Negative [facility] Comment on above: Performed By: #### 4 [id number] #### [facility] [address] [place] [address] Specific gravity (U) [Rel density] 1.020 Invalid Interpretation Code 1.005-1.030 [facility] Comment on above: Performed By: #### 4 [id number] #### [facility] [address] [place] [address] Spermatozoa Auto (Urine sed) [#/Area] Present Abnormal [facility] Comment on above: Performed By: #### 4 [id number] #### [facility] [address] [place] [address] Urobilinogen (U) [Mass/Vol] Negative Normal Negative [facility] Comment on above: Performed By: #### 4 [id number] #### [facility] [address] [place] [address] WBC Auto (Urine sed) [#/Area] 16-25 Abnormal 0-5 [facility] Comment on above: Performed By: #### 4 [id number] #### [facility] [address] [place] [address] Type of Urine collection method Clean Catch Normal [facility] Comment on above: Performed By: #### 4 [id number] #### [facility] [address] [place] [id number] URINALYSISOrdered By: SYSTEM SYSTEM on 06-03-2024 Bacteria Auto Ql (U) 3+ /HPF Invalid Interpretation Code Trace/HPF [facility] UA Auto SS Bilirubin Ql (U) Negative Normal Negativemg/ d L [facility] UA Auto SS Clarity (U) Ex.Turbid *ABN* (06/03/24 8:26 PM) Invalid Interpretation Code Clear [facility] UA Auto SS Color (U) Light-[place]ib[place] 3 *ABN* (06/03/24 8:26 PM) Invalid Interpretation Code Yellow [facility] UA Auto SS Comment on above: Interpretive Data: M icroscopic readings are only performed on those samples that meet specific criteria set forth by [facility]. Epithelial cells.squamous Auto (Urine sed) [...] (U) Trace graded/LPF Normal Negati vegrad ed/LPF [facility] UA Auto SS Nitrite Auto test strip Ql (U) Negative Normal Negativemg/d L [facility] UA Auto SS pH (U) 6.0 *NA* (06/03/24 8:26 PM) Invalid Interpretation Code 5.0 - 9.0 [facility] UA Auto SS Protein Ql (U) 1+ mg/dL Invalid Interpretation Code Negativemg/d L [facility] UA Auto SS Specific gravity (U) [Rel density] 1.020 *NA* (06/03/24 8:26 PM) Invalid Interpretation Code 1.005 - 1.030 [facility] UA Auto SS Spermatoz[place] Auto (Urine sed) [#/Area] Present graded/HPF Invalid Interpretation Code [facility] UA Auto SS Urobilinogen (U) [Mass/Vol] Negative Normal Negativemg/d L [facility] UA Auto SS WBC Auto (Urine sed) [#/Area] 16-25 graded/HPF Invalid Interpretation Code 0-5graded/HP F [facility] UA Auto SS URINALYSISOrdered By: Yulisa Gomez on 06-03-2024 UA Spec Desc Clean Catch (06/03/24 8:26 PM) Normal [facility] UA Auto SS PAP [id number] 02-08-2024 Cytology report Cyto stain Doc (Cvx/Vag) Note Invalid Interpretation Code [facility] Comment on above: Result Comment: TEST S RESULT FLAG UNITS REF RANGE LAB Clinician Provided Cytology Information Source.............Endocervix No. of containers..01 ThinPrep Vial DIAGNOSIS: 01 NEGATIVE FOR INTRAEPITHELIAL LESION OR MALIGNANCY. Specimen adequacy: 01 Satisfactory for evaluation. No endocervical component is identified. Performed by: Antonio Thompson, Director Investor Relations ([facility]) . 01 Note: Note 02 The [...] <-Panic Low,>-Panic High,A-Abnormal,AA-Critical Abnormal Performed at: 01 [facility] [address] [address] Michele Sims MD, 02 WB [facility] [address] [address] Jen Carpio MD, Performed at: [facility]sis [facility] [address] [place], [place] [id number] MD Bethany Bautista Performed By: #### 3 [id number] #### [facility] [address] [place] [address] Urineon 02-07-2024 Bacteria identified Cx Nom (U) [...] Locations R1: This test was performed at: [facility], [address] [place] [address], [address] , [place], Normal [facility] Comment on above: Performed By: #### 2 [id number] #### [facility] [address] [place] [address] HIV Screen 4th Generation wR fxon 02-07-2024 HIV 1+2 Ab+HIV1 p24 Ag IA Ql Non-Reactive Invalid Interpretation Code Non Reactive [facility] Comment on above: Result Comment: HIV- 1/HIV-2 antibodies and HIV-1 p24 antigen were NOT detected. There is no laboratory evidence of HIV infection. HIV Negative Performed at: [address] [id number] PhD Tim Quezada Performed By: #### 9 [id number] #### [facility] [address] [place] [address] Hep Bs Agon 02-07-2024 HBV surface Ag IA Ql Negative Invalid Interpretation Code Negative [facility] Comment on above: Result Comment: Perf ormed at: [address] [id number] PhD Tim Quezada Performed By: #### 2 [id number] #### [facility] [address] [place] [address] RPR with Conf Rfxon 02-07-20 24 Reagin Ab RPR Ql (S) Non-Reactive Invalid Interpretation Code Non Reactive [facility] Comment on above: Result Comment: Perf ormed at: [address] [id number] PhD Tim Quezada Performed By: #### 1 [id number] #### [facility] [address] [place] [address] Rubella IgGon 02-07-2024 Rubella virus IgG Qn (S) 2.78 [IU]/mL Invalid Interpretation Code Immune >0.99 [facility] Comment on above: Result Comment: Non- immune <0.90 Equivocal 0.90 - 0.99 Immune >0.99 Performed at: [address] [id number] PhD Tim Quezada Performed By: #### 1 [id number] #### [facility] [address] [place] [address] ABO/Rhon 02-05-2024 ABO/Rh Positive Invalid Interpretation Code [facility] Comment on above: Performed By: #### 2 802872 #### [facility] [address] [place] [address] ABSCon 02-05-2024 ABSC Gel Interp Negative Normal [facility] Comment on above: Performed By: #### 1 [id number] #### [facility] [address] [place] [address] CBC w/Indiceson 02-05-2024 Erythrocyte distribution width (RBC) [Ratio] 13.4 % Normal 10.9-14.2 [facility] Comment on above: Performed By: #### 2 984352 #### [facility] [address] [place] [address] Hematocrit (Bld) [Volume fraction] 40.9 % Normal 34.0-46.0 [facility] Comment on above: Performed By: #### 2 546922 #### [facility] [address] [place] [address] Hemoglobin (Bld) [Mass/Vol] 13.7 g/dL Normal 12.0-16.0 [facility] Comment on above: Performed By: #### 2 980991 #### [facility] [address] [place] [address] MCH (RBC) [Entitic mass] 30.6 pg Normal 27.0-34.0 [facility] Comment on above: Performed By: #### 2 419714 #### [facility] [address] [place] [address] MCHC (RBC) [Mass/Vol] 33.5 g/dL Normal 31.4-36.0 [facility] Comment on above: Performed By: #### 2 465663 #### [facility] [address] [place] [address] MCV (RBC) [Entitic vol] 91.3 fL Normal 80.0-100.0 [facility] Comment on above: Performed By: #### 2 780857 #### [facility] [address] [place] [address] Platelet 330.0 E9/L Normal 150.0-500.0 [facility] Comment on above: Performed By: #### 2 922073 #### [facility] [address] [place] [address] Platelet mean volume (Bld) [Entitic vol] 9.4 fL Normal 6.4-10.8 [facility] Comment on above: Performed By: #### 2 067451 #### [facility] [address] [place] [address] RBC (Bld) [#/Vol] 4.5 E12/L Normal 4.3-5.9 [facility] Comment on above: Performed By: #### 2 891256 #### [facility] [address] [place] [address] RBC size Nom (Bld) NORMAL Invalid Interpretation Code [facility] Comment on above: Performed By: #### 2 578469 #### [facility] [address] [place] [address] WBC corrected for nucl RBC Auto (Bld) [#/Vol] 10.9 E9/L Normal 4.0-11.0 [facility] Comment on above: Performed By: #### 2 261916 #### [facility] [address] [place] [address] PAP [id number] 02-05-2024 Collection Technique BRUSH-SPATULA Normal F [facility] Comment on above: Performed By: #### 3 [id number] #### [facility] [address] [place] [address] Gynecological Body Site ENDOCERVIX Normal F [facility] Comment on above: Performed By: #### 3 [id number] #### [facility] [address] [place] [address] CBC panel Auto (Bld)on 02-03 Hematocrit (Bld) [Volume fraction] 41 % [facility] Hemoglobin (Bld) [Mass/Vol] 13.7 g/dL [facility] HBV surface Ag IA Qlon 02-03 External Hepatitis B Surface Ag Negative Negative, None Detected [facility] HIV 1+2 Ab+HIV1 p24 Ag IA Ql on 02-04-2024 HIV-1/HIV-2 Ab Negative [facility] Laboratory - Microbiology an d Antimicrobial susceptibilityon 02-04-2024 HCV Ab IA Ql Negative [facility] Reagin Ab RPR Ql (S) Non-Reactive Nonreactive S [facility] Rubella virus IgG Ql (S) Immune [facility] N. gonorrhoeae DNA GIOVANNI+probe Ql (Cervical mucus)on 02-04-2024 C. trachomatis rRNA GIOVANNI+probe Ql (Unsp spec) Negative [facility] N. gonorrhoeae rRNA GIOVANNI+probe Ql (Unsp spec) Negative [facility] No Panel Informationon 02-03 [facility] Physician Orderon 01-13-2024 Physician Order [id number]#1.00TIF F Normal [facility] BhCG Quanton 01-09-2024 [place] [address] m[IU]/mL High 1-3 F [facility] Comment on above: Result Comment: 'F N ON < 1 - 3' ' 0.2 - 1 WEEK = 5 TO 50' ' 1 - 2 WEEKS = 50 - 500' ' 2 - 3 WEEKS = 100 - 5000' ' 3 - 4 WEEKS = 500 - 57488' ' 4 - 5 WEEKS = 1000 - 97393' ' 5 - 6 WEEKS = 54919 - 095214' ' 6 - 8 WEEKS = 88891 - 909445' ' 8 - 12 WEEKS = 65897 - 271324' Performed By: #### 2 [id number] #### [facility] [address] [place] [address] CHEMISTRYOrdered By: SYSTEM SYSTEM on 01-09-2024 [place] [address] m[IU]/mL High 1 - 3 mIU/mL [facility] Comment on above: Result Comment: 'F N ON < 1 - 3' ' 0.2 - 1 WEEK = 5 TO 50' ' 1 - 2 WEEKS = 50 - 500' ' 2 - 3 WEEKS = 100 - 5000' ' 3 - 4 WEEKS = 500 - 65914' ' 4 - 5 WEEKS = 1000 - 95688' ' 5 - 6 WEEKS = 12945 - 339262' ' 6 - 8 WEEKS = 30156 - 481904' ' 8 - 12 WEEKS = 96100 - 705494' Progesterone Lvl 80.38 ng/mL Invalid Interpretation Code [...] for Treatmenton 12-21 Consent for Treatment [id number]#1.00TIF F [facility] Physician Orderon 01-09-2024 Physician Order [id number]#1.00TI FF [facility] Progesteroneon 01-09-2024 Progesterone Lvl 80.38 ng/mL Invalid Interpretation Code [facility] Comment on above: Result Comment: 'F N ON FOLLICULAR = 0.10 - 0.60' 'LUTEAL = 3.00 - 17.5' 'MIDLUTEAL = 3.30 - 18.6' 'POST-MENOPAUSE = 0.10 - 0.40' '-FIRST TRIMESTER = 8.30 - 66.5' 'SECOND TRIMESTER = 18.9 - 66.1' 'THIRD TRIMESTER = 35.8 - 312.4' 'MALES = 0.14 - 2.06' Result Verified by Dilution Performed By: #### 2 [id number] #### [facility] [address] [place] [address] Anti-Mullerian Hormone (AMH) on 09-27-2023 Mullerian inhibiting substance [Mass/Vol] 1.81 ng/mL Invalid Interpretation Code [facility] Comment on above: Result Comment: For assays employing antibodies, the possibility exists for interference by heterophile antibodies in the samples.1 1.Hermelinda Durán Interferences in Immunoassays - still a threat. Clin. Chem. 2000; 46: 3849-0714. This test was developed and its performance characteristics determined by [employer]. It has not been cleared or approved by the Food and Drug Administration. Reference Range: Females 20 - 25y: 1.23 - 11.51 Median 4.70 AMH concentrations of >= 1.06 ng/mL is correlated with a better response to ovarian stimulation, produced more retrievable oocytes and higher odds of live according to Evier et al. Fertility and Sterility. 2010: 94:2190-8613. The current AMH test method correlates with [...] exclude an AMH-secreting ovarian tumor. Performed at: [email or web address] [address] [place] [address] [id number] MD Todd Bedoya Performed By: #### 2 262774, [id number], [id number], [id number], 5566002 #### [facility] [address] [place] [address] FSH and LHon 09-27-2023 Follitropin Qn 2.8 m[IU]/mL Invalid Interpretation Code [facility] Comment on above: Result Comment: Adul t Female Range Follicular phase 3.5 - 12.5 Ovulation phase 4.7 - 21.5 Luteal phase 1.7 - 7.7 Postmenopausal 25.8 - 134.8 Performed at: [facility] [address] [place], [place] [id number] PhD Tim Quezada Performed By: #### 2 475483, [id number], [id number], [id number], [id number] #### [facility] [address] [place] [address] Lutropin Qn 3.8 m[IU]/mL Invalid Interpretation Code [facility] Comment on above: Result Comment: Adul t Female Range Follicular phase 2.4 - 12.6 Ovulation phase 14.0 - 95.6 Luteal phase 1.0 - 11.4 Postmenopausal 7.7 - 58.5 Performed By: #### 2 173322, [id number], [id number], 43106105, 5737951 #### [facility] [address] [place] [address] Insulin Lvlon 09-27-2023 Insulin Qn 31.9 u[IU]/mL High 2.6-24.9 [facility] Comment on above: Result Comment: Perf ormed at: [place] [id number] [place], [place] [id number] PhD Tim Quezada Performed By: #### 2 037671, [id number], [id number], [id number], [id number] #### [facility] [address] [place] [address] CHEMISTRYOrdered By: SYSTEM SYSTEM on 09-22-2023 Prolactin 14.07 ng/mL Normal 3.34 - 26.72 ng/mL Remisol Chem TSH Qn 1.94 m[IU]/L Normal 0.34 - 5.60 mcIU/mL Remisol Chem Consent for Treatmenton Consent for Treatment [id number]#1.00TIF F Normal [facility] Physician Orderon 09-22-2023 Physician Order [id number]#1.00TIF F Normal [facility] Prolactinon 09-22-2023 Prolactin 14.07 ng/mL Normal 3.34-26.72 [facility] Comment on above: Performed By: #### 2 173878, [id number], [id number], [id number], 4325962 #### [facility] [address] [place] [address] TSHon 09-22-2023 TSH Qn 1.94 m[IU]/L Normal 0.34-5.60 [facility] Comment on above: Performed By: #### 2 964204, [id number], [id number], 53514405, 1749551 #### [facility] [address] [place] [address] Progesteroneon 08-27-2023 Progesterone [Mass/Vol] 5.4 ng/mL Normal U [facility] Comment on above: Result Comment: Ref Values Male <0.3- 1.2 Follicular Phase <0.3- 1.4 Luteal Phase 3.3-25.6 Mid-Luteal Phase 4.4-28.0 Postmenopausal <0.3- 0.7 Females: 1st Trimester 11.2- 90.0 2nd Trimester 25.6- 89.4 3RD Trimester 48.4-422.5 Patients receiving DHEA-S supplements may show false elevation of progesterone for results near 1.0 ng/mL. Contact laboratory at [phone] if alternative testing is needed. Performed By: #### 2 839-9 #### SYLVIA Alves ([id number]) [facility] ([facility]) [address] [place] [address] Bacteria identifiedon 2022 Bacteria identified Cx Nom (U) Test: Urine Culture Specimen Source: Clean Catch/Voided Specimen Type: Urine Specimen Date: 07/13/2023 4:11 PM Result Date: 07/16/2023 11:09 AM Result Status: Final result Abnormal: No Resulting Lab: [facility] [address] [place] [address] CULTURE No significant growth Normal [facility] Comment on above: Performed By: #### 6 30-4 #### SYLVIA Alves ([id number]) [facility] ([facility]) [address] [place] [address] Bacteria identifiedon 2022 Bacteria identified Cx Nom (U) Test: Urine Culture Specimen Source: Clean Catch/Voided Specimen Type: Urine Specimen Date: 06/19/2023 5:42 PM Result Date: 06/21/2023 8:49 AM Result Status: Final result Abnormal: No Resulting Lab: [facility] [address] [place] [address] CULTURE Normal genitourinary ivy Normal [facility] Comment on above: Performed By: #### 6 30-4 #### SYLVIA Alves ([id number]) [facility] ([facility]) [address] [place] [address] HCG ( test) IA.rapi d Ql (U)on 06-19-2023 HCG ( test) Ql (U) Negative Normal NEGATIVE [facility] Comment on above: Performed By: #### 8 0384-1 #### KELBY ROSS ([id number]) [facility] ([facility]) [address] [place] [address] HCG ( test) IA.rapi d Ql (U)Ordered By: Rob Burnham on 06-19-2023 HCG ( test) Ql (U) Negative NEGATIVE [facility] Interpretation and review of laboratory results Normal [facility] No Panel Informationon 06-19 Interpretation and review of laboratory results Abnormal [facility] Urinalysis complete W Reflex Culture panel (U)on 06-19-2023 Appearance (U) Hazy Normal Clear [facility] Comment on above: Performed By: #### 5 8077-9 #### KELBY ROSS ([id number]) [facility] ([facility]) [address] [place], [place] [id number] Bilirubin (U) [Mass/Vol] Negative Normal NEGATIVE [facility] Comment on above: Performed By: #### 5 8077-9 #### KELBY ROSS ([id number]) [facility] ([facility]) [address] [place] [address] Color (U) Yellow Normal Straw, Yellow [facility] Comment on above: Performed By: #### 5 8077-9 #### KELBY ROSS ([id number]) [facility] ([facility]) [address] [place] [address] Glucose Auto test strip (U) [Mass/Vol] Negative Normal NEGATIVE [facility] Comment on above: Performed By: #### 5 8077-9 #### KELBY ROSS ([id number]) [facility] ([facility]) [address] [place] [address] Ketones (U) [Mass/Vol] 5 (TRACE) Abnormal NEGATIVE [facility] Comment on above: Performed By: #### 5 8077-9 #### KELBY ROSS ([id number]) [facility] ([facility]) [address] [place] [address] Leukocyte esterase Auto test strip Ql (U) TRACE Abnormal NEGATIVE [facility] Comment on above: Performed By: #### 5 8077-9 #### KELBY ROSS ([id number]) [facility] ([facility]) [address] [place], [place] [address] Nitrite Auto test strip Ql (U) Negative Normal NEGATIVE [facility] Comment on above: Performed By: #### 5 8077-9 #### KELBY ROSS ([id number]) [facility] ([facility]) [address] [place], [place] [address] pH (U) 5.0 [pH] Normal 5.0, 5.5, 6.0, 6.5, 7.0, 7.5, 8.0 [facility] Comment on above: Performed By: #### 5 8077-9 #### KELBY ROSS ([id number]) [facility] ([facility]) [address] [place] [address] Protein (U) [Mass/Vol] 100 (2+) Normal NEGATIVE [facility] Comment on above: Performed By: #### 5 8077-9 #### KEBLY ROSS ([id number]) [facility] ([facility]) [address] [place] [address] RBC (U) [#/Vol] Negative Normal NEGATIVE [facility] Comment on above: Performed By: #### 5 8077-9 #### KELBY ROSS ([id number]) [facility] ([facility]) [address] [place] [address] Specific gravity (U) [Rel density] 1.031 Normal 1.005-1.035 [facility] Comment on above: Performed By: #### 5 8077-9 #### KELBY ROSS ([id number]) [facility] ([facility]) [address] [place] [address] Urobilinogen (U) [Mass/Vol] 2.0 mg/dL Normal <2.0 [facility] Comment on above: Result Comment: Due [...] By: #### 5 8077-9 #### KELBY ROSS ([id number]) [facility] ([facility]) [address] [place] [address] Appearance (U) Hazy Abnormal Clear [facility] Bilirubin (U) [Mass/Vol] Negative NEGATIVE [facility] Color (U) Yellow Straw, Yellow [facility] Glucose Auto test strip (U) [Mass/Vol] Negative NEGATIVE mg/dL [facility] Ketones (U) [Mass/Vol] 5 (TRACE) Abnormal NEGAT MADDIE mg/dL [facility] Leukocyte esterase Auto test strip Ql (U) TRACE Abnormal NEGATIVE [facility] Nitrite Auto test strip Ql (U) Negative NEGATIVE [facility] pH (U) 5.0 [pH] 5.0, 5.5, 6.0, 6.5, 7.0, 7.5, 8.0 [facility] Protein (U) [Mass/Vol] 100 (2+) Abnormal NEGAT MADDIE mg/dL [facility] RBC (U) [#/Vol] Negative NEGATIVE [facility] Specific gravity (U) [Rel density] 1.031 1.005 - 1.035 [facility] Urobilinogen (U) [Mass/Vol] 2.0 mg/dL Abnormal NINF - 2.0 mg/dL [facility] Comment on above: Due to a manufacturi [...] 10-25 (FEW) Normal Reference range not established. [facility] Comment on above: Performed By: #### 5 3315-8 #### KELBY ROSS ([id number]) [facility] ([facility]) [address] [place] [address] Mucus Auto (Urine sed) [#/Area] 2+ /LPF Normal Reference range not established. [facility] Comment on above: Performed By: #### 5 3225-8 #### KELBY ROSS ([id number]) [facility] ([facility]) [address] [place] [address] RBC Auto (Urine sed) [#/Area] 3-5 Normal NONE, 1-2, 3-5 [facility] Comment on above: Performed By: #### 5 3315-8 #### KELBY ROSS ([id number]) [facility] ([facility]) [address] [place] [address] WBC Auto (Urine sed) [#/Area] 11-20 Abnormal 1-5, NONE [facility] Comment on above: Performed By: #### 5 8015-8 #### KELBY ROSS ([id number]) [facility] ([facility]) [address] [place] [address] Epithelial cells.squamous Auto (Urine sed) [#/Area] 10-25 (FEW) Reference range not established. /HPF [facility] Mucus Auto (Urine sed) [#/Area] 2+ Reference range not established. /LPF [facility] RBC Auto (Urine sed) [#/Area] 3-5 NONE, 1-2, 3-5 /HPF [facility] WBC Auto (Urine sed) [#/Area] 11-20 Abnormal 1-5, NONE /HPF [facility] Bacteria identifiedon 2022 Bacteria identified Cx Nom (U) Test: Urine Culture Specimen Source: Clean Catch/Voided Specimen Type: Urine Specimen Date: 05/18/2023 10:46 AM Result Date: 05/20/2023 8:13 AM Result Status: Final result Abnormal: No Resulting Lab: [facility] [id number] [place] [address] CULTURE No significant growth Normal [facility] Comment on above: Performed By: #### 6 30-4 #### SYLVIA Alves ([id number]) [facility] ([facility]) [address] [place] [address] POCT UA Automated manually r esultedon 05-18-2023 Appearance (U) Hazy Abnormal Clear [facility] Work Phone: [phone] Glucose Test strip (U) [Mass/Vol] Negative NEGATIVE mg/dl [facility] Work Phone: [phone] Hemoglobin Ql (U) MODERATE (2+) Abnormal NEGATIVE [facility] Work Phone: [phone] Interpretation and review of laboratory results Abnormal [facility] Work Phone: [phone] Leukocyte esterase Test strip Ql (U) Negative NEGATIVE [facility] Work Phone: [phone] Nitrite Ql (U) Negative NEGATIVE [facility] Work Phone: [phone] pH (U) 7.0 [pH] No Reference Range Established [facility] Work Phone: POC Bilirubin, Urine Negative NEGATIVE [facility] Work Phone: POC Color, Urine Yellow Straw, Yellow, Light-Yellow [facility] Work Phone: POC Ketones, Urine 15 (1+) Abnormal NEGATIVE mg/dl [facility] Work Phone: POC Protein, Urine 30 (1+) NEGATIVE, 30 (1+) mg/dl [facility] Work Phone: POC Specific [place], Urine 1.025 1.005 - 1.035 [facility] Work Phone: POC Urobilinogen, Urine 0.2 0.2, 1.0 EU/DL [facility] Work Phone: [facility] Work Phone: CBC AND DIFFERENTIALon 04-14 % AUTOMATED IMMATURE GRAN 0.2 % Normal 0.0 - 0.9 [facility] Comment on above: Result Comment: Tammie ture Granulocyte Count (IG) includes promyelocytes, myelocytes and metamyelocytes but does not include bands. Percent differential counts (%) should be interpreted in the context of the absolute cell counts (cells/L). Performed By: #### C BCDF #### [address] [address] Basophils (Bld) [#/Vol] 0.02 10*3/uL Normal 0.00 - 0.1 0 [facility] Comment on above: Performed By: #### C BCDF #### [address] [address] Basophils/100 WBC (Bld) 0.5 % Normal 0.0 - 2.0 [facility] Comment on above: Performed By: #### C BCDF #### [address] [address] Eosinophils (Bld) [#/Vol] 0.09 10*3/uL Normal 0.00 - 0.70 [facility] Comment on above: Performed By: #### C BCDF #### [address] [address] Eosinophils/100 WBC (Bld) 2.2 % Normal 0.0 - 6.0 [facility] Comment on above: Performed By: #### C BCDF #### [address] [address] Erythrocyte distribution width (RBC) [Ratio] 11.6 % Normal 11.5 - 14.5 [facility] Comment on above: Performed By: #### C BCDF #### [address] [address] Hematocrit (Bld) [Volume fraction] 43.6 % Normal 36.0 - 46.0 [facility] Comment on above: Performed By: #### C BCDF #### [address] [address] Hemoglobin (Bld) [Mass/Vol] 14.3 g/dL Normal 12.0 - 16.0 [facility] Comment on above: Performed By: #### C BCDF #### [address] [address] Lymphocytes (Bld) [#/Vol] 1.48 10*3/uL Normal 1.20 - 4.80 [facility] Comment on above: Performed By: #### C BCDF #### [address] [address] Lymphocytes/100 WBC (Bld) 36.5 % Normal 13.0 - 44.0 [facility] Comment on above: Performed By: #### C BCDF #### [address] [address] MCHC (RBC) [Mass/Vol] 32.8 g/dL Normal 32.0 - 36.0 [facility] Comment on above: Performed By: #### C BCDF #### [address] [address] MCV (RBC) [Entitic vol] 90 fL Normal 80 - 100 [facility] Comment on above: Performed By: #### C BCDF #### [address] [address] Monocytes (Bld) [#/Vol] 0.30 10*3/uL Normal 0.10 - 1.0 0 [facility] Comment on above: Performed By: #### C BCDF #### [address] [address] Monocytes/100 WBC (Bld) 7.4 % Normal 2.0 - 10.0 [facility] Comment on above: Performed By: #### C BCDF #### [address] [address] Neutrophils (Bld) [#/Vol] 2.16 10*3/uL Normal 1.20 - 7.70 [facility] Comment on above: Result Comment: Perc ent differential counts (%) should be interpreted in the context of the absolute cell counts (cells/L). Performed By: #### C BCDF #### [address] [address] Neutrophils/100 WBC (Bld) 53.2 % Normal 40.0 - 80.0 [facility] Comment on above: Performed By: #### C BCDF #### [address] [address] Platelets (Bld) [#/Vol] 267 10*3/uL Normal 150 - 450 [facility] Comment on above: Performed By: #### C BCDF #### [address] [address] RBC 4.84 x10E12/L Normal 4.00 - 5.20 [facility] Comment on above: Performed By: #### C BCDF #### [address] [address] WBC (Bld) [#/Vol] 4.1 10*3/uL Low 4.4 - 11.3 [facility] Comment on above: Performed By: #### C BCDF #### [address] [address] COMPREHENSIVE PANELon 2022 Albumin [Mass/Vol] 4.4 g/dL Normal 3.4 - 5.0 [facility] Comment on above: Performed By: #### C MP #### [address] [address] ALP [Catalytic activity/Vol] 42 U/L Normal 33 - 110 [facility] Comment on above: Performed By: #### C MP #### [address] [address] ALT [Catalytic activity/Vol] 20 U/L Normal 7 - 45 [facility] Comment on above: Result Comment: Glory ents treated with Sulfasalazine may generate falsely decreased results for ALT. Performed By: #### C MP #### [address] [address] Anion gap [Moles/Vol] 13 mmol/L Normal 10 - 20 [facility] Comment on above: Performed By: #### C MP #### [address] [address] AST [Catalytic activity/Vol] 25 U/L Normal 9 - 39 [facility] Comment on above: Performed By: #### C MP #### [address] [address] Bilirubin [Mass/Vol] 0.6 mg/dL Normal 0.0 - 1.2 [facility] Comment on above: Performed By: #### C MP #### [address] [address] Calcium [Mass/Vol] 9.5 mg/dL Normal 8.6 - 10.3 [facility] Comment on above: Performed By: #### C MP #### [address] [address] Chloride [Moles/Vol] 106 mmol/L Normal 98 - 107 [facility] Comment on above: Performed By: #### C MP #### [address] [address] Creatinine [Mass/Vol] 0.82 mg/dL Normal 0.50 - 1.05 [facility] Comment on above: Performed By: #### C MP #### [address] [address] eGFR FEMALE >90 Normal >90 [facility] Comment on above: Result Comment: CALC ULATIONS OF ESTIMATED GFR ARE PERFORMED USING THE 2020 CKD-EPI STUDY REFIT EQUATION WITHOUT THE RACE VARIABLE FOR THE IDMS-TRACEABLE CREATININE METHODS. https://jasn.asnjournals.org/content/early//ASN.2020 814434 Performed By: #### C MP #### [address] [address] Glucose [Mass/Vol] 80 mg/dL Normal 74 - 99 [facility] Comment on above: Performed By: #### C MP #### [address] [address] HCO3 (Bld) [Moles/Vol] 25 mmol/L Normal 21 - 32 [facility] Comment on above: Performed By: #### C MP #### [address] [address] Potassium [Moles/Vol] 3.8 mmol/L Normal 3.5 - 5.3 [facility] Comment on above: Performed By: #### C MP #### [address] [address] Protein [Mass/Vol] 7.0 g/dL Normal 6.4 - 8.2 [facility] Comment on above: Performed By: #### C MP #### [address] [address] Sodium [Moles/Vol] 140 mmol/L Normal 136 - 145 [facility] Comment on above: Performed By: #### C MP #### [address] [address] Urea nitrogen [Mass/Vol] 5 mg/dL Low 6 - 23 [facility] Comment on above: Performed By: #### C MP #### [address] [address] HEMOGLOBIN A1Con 04-14-2023 Glucose [Mass/Vol] 88 mg/dL Normal [facility] Comment on above: Performed By: #### H BA1E #### [address] [address] HbA1c (Bld) [Mass fraction] 4.7 % Normal [facility] Comment on above: Result Comment: Diag nosis of Diabetes-Adults Non-Diabetic: < or = 5.6% Increased risk for developing diabetes: 5.7-6.4% Diagnostic of diabetes: > or = 6.5% . Monitoring of Diabetes Age (y) Therapeutic Goal (%) Adults: >18 <7.0 Pediatrics: 13-18 <7.5 7-12 <8.0 0- 6 7.5-8.5 [employer]. Diabetes Care 33(S1), Jul 2009. Performed By: #### H BA1E #### [address] [address] LIPID PANEL (CORONARY RISK 2 )on 04-14-2023 Cholesterol [Mass/Vol] 159 mg/dL Normal 0 - 199 [facility] Comment on above: Result Comment: [...] dosing. Performed By: #### L IPID #### [address] [address] Cholesterol in HDL [Mass/Vol] 56.0 mg/dL Normal [facility] Comment on above: Result Comment: . AGE VERY LOW LOW NORMAL HIGH 0-19 Y < 35 < 40 40-45 ---- 20-24 Y ---- < 40 >45 ---- >24 Y ---- < 40 40-60 >60 . Performed By: #### L IPID #### [address] [address] Cholesterol in LDL [Mass/Vol] 87 mg/dL Normal 0 - 119 [facility] Comment on above: Result Comment: . NEAR BORD AGE DESIRABLE OPTIMAL HIGH HIGH VERY HIGH 0-19 Y 0 - 109 --- 110-129 >/= 130 ---- 20-24 Y 0 - 119 --- 120-159 >/= 160 ---- >24 Y 0 - 99 100-129 130-159 160-189 >/=190 . Performed By: #### L IPID #### [address] [address] Cholesterol in VLDL [Mass/Vol] 16 mg/dL Normal 0 - 40 [facility] Comment on above: Performed By: #### L IPID #### [address] [address] Cholesterol.total/Doris sterol in HDL [Mass ratio] 2.8 {ratio} Normal [facility] Comment on above: Result Comment: REF VALUES DESIRABLE < 3.4 HIGH RISK > 5.0 Performed By: #### L IPID #### [address] [address] NON-HDL CHOLESTEROL 103 mg/dL Normal 0 - 149 [facility] Comment on above: Result Comment: AGE DESIRABLE BORDERLINE HIGH HIGH VERY HIGH 0-19 Y 0 - 119 120 - 144 >/= 145 >/= 160 20-24 Y 0 - 149 150 - 189 >/= 190 ---- >24 Y 30 MG/DL ABOVE LDL CHOLESTEROL GOAL . Performed By: #### L IPID #### [address] [address] Triglyceride [Mass/Vol] 79 mg/dL Normal 0 - 149 [facility] Comment on above: Result Comment: . [...] dosing. Performed By: #### L IPID #### [address] [address] TSH WITH REFLEX TO FREE T4 I F ABNORMALon 04-14-2023 TSH Qn 2.73 m[IU]/L Normal 0.44 - 3.98 [facility] Comment on above: Result Comment: TSH testing is performed using different testing methodology at [facility] than at other [facility]. Direct result comparisons should only be made within the same method. Performed By: #### T HYDS #### [address] [address] CBC AND DIFFERENTIALon 04-13 % AUTOMATED IMMATURE GRAN 0.2 % Normal 0.0 - 0.9 [facility] Comment on above: Result Comment: Tammie ture Granulocyte Count (IG) includes promyelocytes, myelocytes and metamyelocytes but does not include bands. Percent differential counts (%) should be interpreted in the context of the absolute cell counts (cells/L). Performed By: #### C BCDF ####[address] [address] Basophils (Bld) [#/Vol] 0.01 10*3/uL Normal 0.00 - 0.1 0 [facility] Comment on above: Performed By: #### C BCDF ####[address] [address] Basophils/100 WBC (Bld) 0.2 % Normal 0.0 - 2.0 [facility] Comment on above: Performed By: #### C BCDF ####[address] [address] Eosinophils (Bld) [#/Vol] 0.06 10*3/uL Normal 0.00 - 0.70 [facility] Comment on above: Performed By: #### C BCDF ####[address] [address] Eosinophils/100 WBC (Bld) 1.2 % Normal 0.0 - 6.0 [facility] Comment on above: Performed By: #### C BCDF ####[address] [address] Erythrocyte distribution width (RBC) [Ratio] 11.4 % Low 11.5 - 14.5 [facility] Comment on above: Performed By: #### C BCDF ####[address] [address] Hematocrit (Bld) [Volume fraction] 39.3 % Normal 36.0 - 46.0 [facility] Comment on above: Performed By: #### C BCDF ####[address] [address] Hemoglobin (Bld) [Mass/Vol] 13.4 g/dL Normal 12.0 - 16.0 [facility] Comment on above: Performed By: #### C BCDF ####[address] [address] Lymphocytes (Bld) [#/Vol] 1.39 10*3/uL Normal 1.20 - 4.80 [facility] Comment on above: Performed By: #### C BCDF ####[address] [address] Lymphocytes/100 WBC (Bld) 27.9 % Normal 13.0 - 44.0 [facility] Comment on above: Performed By: #### C BCDF ####[address] [address] MCHC (RBC) [Mass/Vol] 34.1 g/dL Normal 32.0 - 36.0 [facility] Comment on above: Performed By: #### C BCDF ####[address] [address] MCV (RBC) [Entitic vol] 88 fL Normal 80 - 100 [facility] Comment on above: Performed By: #### C BCDF ####[address] [address] Monocytes (Bld) [#/Vol] 0.49 10*3/uL Normal 0.10 - 1.0 0 [facility] Comment on above: Performed By: #### C BCDF ####[address] [address] Monocytes/100 WBC (Bld) 9.8 % Normal 2.0 - 10.0 [facility] Comment on above: Performed By: #### C BCDF ####[address] [address] Neutrophils (Bld) [#/Vol] 3.03 10*3/uL Normal 1.20 - 7.70 [facility] Comment on above: Result Comment: Perc ent differential counts (%) should be interpreted in the context of the absolute cell counts (cells/L). Performed By: #### C BCDF ####[address] [address] Neutrophils/100 WBC (Bld) 60.7 % Normal 40.0 - 80.0 [facility] Comment on above: Performed By: #### C BCDF ####[address] [address] Platelets (Bld) [#/Vol] 275 10*3/uL Normal 150 - 450 [facility] Comment on above: Performed By: #### C BCDF ####[address] [address] RBC 4.45 x10E12/L Normal 4.00 - 5.20 [facility] Comment on above: Performed By: #### C BCDF ####[address] [address] WBC (Bld) [#/Vol] 5.0 10*3/uL Normal 4.4 - 11.3 [facility] Comment on above: Performed By: #### C BCDF ####[address] [address] COMPREHENSIVE PANELon 2022 Albumin [Mass/Vol] 4.2 g/dL Normal 3.4 - 5.0 [facility] Comment on above: Performed By: #### C MP ####[address] [address] ALP [Catalytic activity/Vol] 40 U/L Normal 33 - 110 [facility] Comment on above: Performed By: #### C MP ####[address] [address] ALT [Catalytic activity/Vol] 12 U/L Normal 7 - 45 [facility] Comment on above: Result Comment: Glory ents treated with Sulfasalazine may generate falsely decreased results for ALT. Performed By: #### C MP ####[address] [address] Anion gap [Moles/Vol] 11 mmol/L Normal 10 - 20 [facility] Comment on above: Performed By: #### C MP ####[address] [address] AST [Catalytic activity/Vol] 17 U/L Normal 9 - 39 [facility] Comment on above: Performed By: #### C MP ####[address] [address] Bilirubin [Mass/Vol] 0.5 mg/dL Normal 0.0 - 1.2 [facility] Comment on above: Performed By: #### C MP ####[address] [address] Calcium [Mass/Vol] 8.9 mg/dL Normal 8.6 - 10.3 [facility] Comment on above: Performed By: #### C MP ####[address] [address] Chloride [Moles/Vol] 106 mmol/L Normal 98 - 107 [facility] Comment on above: Performed By: #### C MP ####[address] [address] Creatinine [Mass/Vol] 0.85 mg/dL Normal 0.50 - 1.05 [facility] Comment on above: Performed By: #### C MP ####[address] [address] eGFR FEMALE >90 Normal >90 [facility] Comment on above: Result Comment: CALC ULATIONS OF ESTIMATED GFR ARE PERFORMED USING THE 2020 CKD-EPI STUDY REFIT EQUATION WITHOUT THE RACE VARIABLE FOR THE IDMS-TRACEABLE CREATININE METHODS. https://jasn.asnjournals.org/content/early//ASN 872443 Performed By: #### C MP ####[address] [address] Glucose [Mass/Vol] 87 mg/dL Normal 74 - 99 [facility] Comment on above: Performed By: #### C MP ####[address] [address] HCO3 (Bld) [Moles/Vol] 26 mmol/L Normal 21 - 32 [facility] Comment on above: Performed By: #### C MP ####[address] [address] Potassium [Moles/Vol] 3.4 mmol/L Low 3.5 - 5.3 [facility] Comment on above: Performed By: #### C MP ####[address] [address] Protein [Mass/Vol] 6.8 g/dL Normal 6.4 - 8.2 [facility] Comment on above: Performed By: #### C MP ####[address] [address] Sodium [Moles/Vol] 140 mmol/L Normal 136 - 145 [facility] Comment on above: Performed By: #### C MP ####[address] [address] Urea nitrogen [Mass/Vol] 6 mg/dL Normal 6 - 23 [facility] Comment on above: Performed By: #### C MP ####[address] [address] HCG,URINEon 04-13-2023 Beta HCG ( test) Ql (U) Negative Normal Negative [facility] Comment on above: Performed By: #### H CGU ####[place] [id number] Provider Note - ED v3on 03-24 Provider [...] a day SIGNIFICANT EVENTS: Past Medical History Description:[place] teeth extraction CRITICAL CARE RESULTS: Recent Lab [...] Reference Range: STRAW,YELLOW Appearance, Urine CLEAR Specific [place], Urine 1.010 pH, Urine 7.0 Protein, Urine NEGATIVE Glucose, Urine NEGATIVE Blood, Urine NEGATIVE Ketones, Urine NEGATIVE Bilirubin, Urine NEGATIVE Urobilinogen, Urine <2.0 Nitrite, Urine Negative Leukocyte Esterase, Urine NEGATIVE VITAL SIGNS: T PRBP SpO2O2(LPM) %FiO2 Method 13-Apr-2023 13:54:[id number] 94 13-Apr-2023 13:13:[id number]/74 99 room air, no respiratory support 13-Apr-2023 12:55:[id number]/74 99 room air, no respiratory support [facility] MDM/ED COURSE: Medical Decision Making: Patient appears well and nontoxic. Vital signs within normal limits. Lab work otherwise unremarkable. Urine without acute infection. Patient given 1 L normal saline. Advised on [id number] Motrin and Tylenol. Asked to follow-up with [...] obeys commands Best Verbal Response: (V5) oriented [place] Score: 15 Cough lasting greater than 3 [...] 13-Apr-2023 13:15 by Imelda Ramirez (ROXI) Normal [facility] URINALYSISon 04-13-2023 Appearance (U) CLEAR Normal CLEAR [facility] Comment on above: Performed By: #### U A ####[place] [address] Bilirubin Ql (U) Negative Normal NEGATIVE [facility] Comment on above: Performed By: #### U A ####[place] [address] Color (U) Yellow Normal STRAW,YELLOW [facility] Comment on above: Performed By: #### U A ####[place] [address] Glucose Ql (U) Negative Normal NEGATIVE [facility] Comment on above: Performed By: #### U A ####[place] [address] Hemoglobin Ql (U) Negative Normal NEGATIVE [facility] Comment on above: Performed By: #### U A ####[place] [address] Ketones Ql (U) Negative Normal NEGATIVE [facility] Comment on above: Performed By: #### U A ####[place] [address] Leukocyte esterase Test strip Ql (U) Negative Normal NEGATIVE [facility] Comment on above: Performed By: #### U A ####[place] [address] Nitrite Ql (U) Negative Normal NEGATIVE [facility] Comment on above: Performed By: #### U A ####[place] [address] pH (U) 7.0 [pH] Normal 5.0 - 8.0 [facility] Comment on above: Performed By: #### U A ####[place] [address] Protein Ql (U) Negative Normal NEGATIVE [facility] Comment on above: Performed By: #### U A ####[place] [address] Specific gravity (U) [Rel density] 1.010 Normal 1.005 - 1.035 [facility] Comment on above: Performed By: #### U A ####[place] [address] Urobilinogen (U) [Mass/Vol] mg/dL Normal 0.0 - 1.9 [facility] Comment on above: Performed By: #### U A ####[address] [address] BASIC METABOLIC PANELon 03-24 Creatinine [Mass/Vol] 1.33 mg/dL High 0.50 - 1.05 [facility] Comment on above: Result Comment: Conf irmed by repeat analysis Performed By: #### B MP ####[address] [address] GFR/1.73 sq M.predicted among non-blacks MDRD (S/P/Bld) [Vol rate/Area] 58 mL/min/{1.73_m2} Abnormal >90 [facility] Comment on above: Result Comment: CALC ULATIONS OF ESTIMATED GFR ARE PERFORMED USING THE 2020 CKD-EPI STUDY REFIT EQUATION WITHOUT THE RACE VARIABLE FOR THE IDMS-TRACEABLE CREATININE METHODS. https://jasn.asnjournals.org/content/early/ASN.2020 571122 Performed By: #### B MP ####[address] [address] Anion gap [Moles/Vol] 8 mmol/L Low 10 - 20 [facility] Comment on above: Performed By: #### B MP ####[address] [address] Calcium [Mass/Vol] 8.0 mg/dL Low 8.6 - 10.3 [facility] Comment on above: Performed By: #### B MP ####[address] [address] Chloride [Moles/Vol] 115 mmol/L High 98 - 107 [facility] Comment on above: Performed By: #### B MP ####[address] [address] Glucose [Mass/Vol] 90 mg/dL Normal 74 - 99 [facility] Comment on above: Performed By: #### B MP ####[address] [address] HCO3 (Bld) [Moles/Vol] 23 mmol/L Normal 21 - 32 [facility] Comment on above: Performed By: #### B MP ####[address] [address] Potassium [Moles/Vol] 3.9 mmol/L Normal 3.5 - 5.3 [facility] Comment on above: Performed By: #### B MP ####[address] [address] Sodium [Moles/Vol] 142 mmol/L Normal 136 - 145 [facility] Comment on above: Performed By: #### B MP ####[place] [id number] Urea nitrogen [Mass/Vol] 10 mg/dL Normal 6 - 23 [facility] Comment on above: Performed By: #### B MP ####[place] [id number] CBCon 04-11-2023 Erythrocyte distribution width (RBC) [Ratio] 11.8 % Normal 11.5 - 14.5 [facility] Comment on above: Performed By: #### U ARFX #### [address] [address] Hematocrit (Bld) [Volume fraction] 34.9 % Low 36.0 - 46.0 [facility] Comment on above: Performed By: #### U ARFX #### [address] [address] Hemoglobin (Bld) [Mass/Vol] 11.5 g/dL Low 12.0 - 16.0 [facility] Comment on above: Performed By: #### U ARFX #### [address] [address] MCHC (RBC) [Mass/Vol] 33.0 g/dL Normal 32.0 - 36.0 [facility] Comment on above: Performed By: #### U ARFX #### [address] [address] MCV (RBC) [Entitic vol] 90 fL Normal 80 - 100 [facility] Comment on above: Performed By: #### U ARFX #### [address] [address] Platelets (Bld) [#/Vol] 213 10*3/uL Normal 150 - 450 [facility] Comment on above: Performed By: #### U ARFX #### [address] [address] RBC 3.86 x10E12/L Low 4.00 - 5.20 [facility] Comment on above: Performed By: #### U ARFX #### [address] [address] WBC (Bld) [#/Vol] 4.4 10*3/uL Normal 4.4 - 11.3 [facility] Comment on above: Performed By: #### U ARFX #### [address] [address] Discharge [id number] Discharge Profile2 Discharge Orders: Anticipated Discharge Date: Anticipated Discharge [id number] Code Status: Code Status at Discharge: Full [...] 11-Apr-2023 09:34:24 Appointments: Follow-Up Appointment 01: Physician/Dept/[facility]Pr [facility] Jordyn Thakur Reason for ReferralPyelonephritis, acute kidney injury Call to Schedule in1 week LocationS [place] Phone [phone] Annamarie will call and make her own appointment. Electronic Signatures: Kusum Joaquin (DANIEL) (Signed 11-Apr-2023 10:50) Authored: Discharge Orders, Appointments Bautista Villanueva) (Signed 11-Apr-2023 09:34) Authored: Discharge Orders, Hospital Course (Home Care/Gold Form), Provider FINAL REVIEW of Orders, Appointments, Gold Form - Plant Physiology Teacher Summary Last Updated: 11-Apr-2023 10:50 by Kusum Joaquin (DANIEL) [facility] Order Reconciliationon 04-11 Order Reconciliation Page [...] on above: Performed By: #### B MP ####[address] [address] Calcium [Mass/Vol] 8.4 mg/dL Low 8.6 - 10.3 [facility] Comment on above: Performed By: #### B MP ####[address] [address] Chloride [Moles/Vol] 109 mmol/L High 98 - 107 [facility] Comment on above: Performed By: #### B MP ####[address] [address] Creatinine [Mass/Vol] 2.30 mg/dL High 0.50 - 1.05 [facility] Comment on above: Performed By: #### B MP ####[address] [address] GFR/1.73 sq M.predicted among non-blacks MDRD (S/P/Bld) [Vol rate/Area] 30 mL/min/{1.73_m2} Abnormal >90 [facility] Comment on above: Result Comment: CALC ULATIONS OF ESTIMATED GFR ARE PERFORMED USING THE 2020 CKD-EPI STUDY REFIT EQUATION WITHOUT THE RACE VARIABLE FOR THE IDMS-TRACEABLE CREATININE METHODS. https://jasn.asnjournals.org/content/early//ASN.2020 982395 Performed By: #### B MP ####[address] [address] Glucose [Mass/Vol] 84 mg/dL Normal 74 - 99 [facility] Comment on above: Performed By: #### B MP ####[address] [address] HCO3 (Bld) [Moles/Vol] 23 mmol/L Normal 21 - 32 [facility] Comment on above: Performed By: #### B MP ####[address] [address] Potassium [Moles/Vol] 3.8 mmol/L Normal 3.5 - 5.3 [facility] Comment on above: Performed By: #### B MP ####[address] [address] Sodium [Moles/Vol] 139 mmol/L Normal 136 - 145 [facility] Comment on above: Performed By: #### B MP ####[address] [address] Urea nitrogen [Mass/Vol] 20 mg/dL Normal 6 - 23 [facility] Comment on above: Performed By: #### B MP ####[address] [address] CBCon 04-10-2023 Erythrocyte distribution width (RBC) [Ratio] 11.9 % Normal 11.5 - 14.5 [facility] Comment on above: Performed By: #### U ARFX #### [address] [address] Hematocrit (Bld) [Volume fraction] 37.4 % Normal 36.0 - 46.0 [facility] Comment on above: Performed By: #### U ARFX #### [address] [address] Hemoglobin (Bld) [Mass/Vol] 12.3 g/dL Normal 12.0 - 16.0 [facility] Comment on above: Performed By: #### U ARFX #### [place] [id number] MCHC (RBC) [Mass/Vol] 32.9 g/dL Normal 32.0 - 36.0 [facility] Comment on above: Performed By: #### U ARFX #### [place] [id number] MCV (RBC) [Entitic vol] 90 fL Normal 80 - 100 [facility] Comment on above: Performed By: #### U ARFX #### [place] [id number] Platelets (Bld) [#/Vol] 239 10*3/uL Normal 150 - 450 [facility] Comment on above: Performed By: #### U ARFX #### [place] [id number] RBC 4.16 x10E12/L Normal 4.00 - 5.20 [facility] Comment on above: Performed By: #### U ARFX #### [place] [id number] WBC (Bld) [#/Vol] 8.0 10*3/uL Normal 4.4 - 11.3 [facility] Comment on above: Performed By: #### U ARFX #### [place] [id number] Daily Progress Note-Medicine on 04-10-2023 Daily Progress Note-Medicine Service: Medicine Subjective Data: LUZ HINOJOSA is a 22 year old Female who is Hospital Day # 2. Patient feeling better no longer nauseated or vomiting. Was able to tolerate diet. Still having some left flank pain. Objective Data: Objective Information: T PRBPMAPSpO2 [id number]% Date/Time04/10 8: 8: 8: 8: 8: 8:04 [...] if there are errors there due to machine oiler. Bautista Villanueva Hospitalist Electronic Signatures: Bautista Villanueva) (Signed 10-Apr-2023 11:04) Authored: Service, Subjective Data, Objective Data, Assessment and Plan, Note Completion Last Updated: 10-Apr-2023 11:04 by Bautista Villanueva) Normal Merg[facility] With [facility] MAGNESIUMon 04-10-2023 Magnesium [Mass/Vol] 1.72 mg/dL Normal 1.60 - 2.40 [facility] Comment on above: Performed By: #### M G ####[address] [place] [address] Admission Risk Screen - Adul ton 04-09-2023 Admission Risk Screen - Adult Allergies: Allergies: clonidine: Hives/Urticaria Patient Verification: New W ID Band Applied in my Departmentno Type of ID Patient is WearingW wristband, but not applied here Patient Transferred from Other Facility ([facility], [facility],etc)no Patient Identity Verified Bypatient ID Band [...] AlertFor Ebola-like Symptoms: Isolate Patient and Notify Provider/Sales Project Coordinator For Contact: Notify Provider/Sales Project Coordinator Advance Directive: Advance Directive/DNRno (2) Advance Directive [...] any thoughts of harming anyone elseno (1) [place] Suicide: Risk Screen Not Applicable/Able to Answerable to be screened In the Past Month: Have you wished you were or could go to sleep and not wake upno(1) In the Past Month: Have you had any actual thoughts of killing yourself no(1) Lifetime: Have you ever done, started to do, or prepared to do anything to end your lifeno [place] Suicide Risknegative Adult Nutrition Screen: Have you [...] above: Performed By: #### U ARFX #### [address] [address] Calcium [Mass/Vol] 8.1 mg/dL Low 8.6 - 10.3 [facility] Comment on above: Performed By: #### U ARFX #### [address] [address] Chloride [Moles/Vol] 112 mmol/L High 98 - 107 [facility] Comment on above: Performed By: #### U ARFX #### [address] [address] Creatinine [Mass/Vol] 2.16 mg/dL High 0.50 - 1.05 [facility] Comment on above: Performed By: #### U ARFX #### [address] [address] GFR/1.73 sq M.predicted among non-blacks MDRD (S/P/Bld) [Vol rate/Area] 32 mL/min/{1.73_m2} Abnormal >90 [facility] Comment on above: Result Comment: CALC ULATIONS OF ESTIMATED GFR ARE PERFORMED USING THE 2020 CKD-EPI STUDY REFIT EQUATION WITHOUT THE RACE VARIABLE FOR THE IDMS-TRACEABLE CREATININE METHODS. https://jasn.asnjournals.org/content//ASN 959105 Performed By: #### U ARFX #### [address] [address] Glucose [Mass/Vol] 74 mg/dL Normal 74 - 99 [facility] Comment on above: Performed By: #### U ARFX #### [address] [address] HCO3 (Bld) [Moles/Vol] 19 mmol/L Low 21 - 32 [facility] Comment on above: Performed By: #### U ARFX #### [address] [address] Potassium [Moles/Vol] 3.9 mmol/L Normal 3.5 - 5.3 [facility] Comment on above: Performed By: #### U ARFX #### [address] [address] Sodium [Moles/Vol] 141 mmol/L Normal 136 - 145 [facility] Comment on above: Performed By: #### U ARFX #### [address] [address] Urea nitrogen [Mass/Vol] 19 mg/dL Normal 6 - 23 [facility] Comment on above: Performed By: #### U ARFX #### [address] [address] Anion gap [Moles/Vol] 14 mmol/L Normal 10 - 20 [facility] Comment on above: Performed By: #### B MP ####[address] [address] Calcium [Mass/Vol] 9.5 mg/dL Normal 8.6 - 10.3 [facility] Comment on above: Performed By: #### B MP ####[address] [address] Chloride [Moles/Vol] 107 mmol/L Normal 98 - 107 [facility] Comment on above: Performed By: #### B MP ####[address] [address] Creatinine [Mass/Vol] 2.20 mg/dL High 0.50 - 1.05 [facility] Comment on above: Performed By: #### B MP ####[address] [address] GFR/1.73 sq M.predicted among non-blacks MDRD (S/P/Bld) [Vol rate/Area] 32 mL/min/{1.73_m2} Abnormal >90 [facility] Comment on above: Result Comment: CALC ULATIONS OF ESTIMATED GFR ARE PERFORMED USING THE 2020 CKD-EPI STUDY REFIT EQUATION WITHOUT THE RACE VARIABLE FOR THE IDMS-TRACEABLE CREATININE METHODS. https://jasn.asnjournals.org/content/early//ASN.2020 111657 Performed By: #### B MP ####[address] [address] Glucose [Mass/Vol] 91 mg/dL Normal 74 - 99 [facility] Comment on above: Performed By: #### B MP ####[address] [address] HCO3 (Bld) [Moles/Vol] 23 mmol/L Normal 21 - 32 [facility] Comment on above: Performed By: #### B MP ####[address] [address] Potassium [Moles/Vol] 3.7 mmol/L Normal 3.5 - 5.3 [facility] Comment on above: Performed By: #### B MP ####[address] [address] Sodium [Moles/Vol] 140 mmol/L Normal 136 - 145 [facility] Comment on above: Performed By: #### B MP ####[address] [address] Urea nitrogen [Mass/Vol] 20 mg/dL Normal 6 - 23 [facility] Comment on above: Performed By: #### B MP ####[address] [address] BLOOD CULTURE, BACTERIALon 0 04-09-2023 BLOOD CULTURE, BACTERIAL PATIENT: LUZ HINOJOSA [place] [facility] [place] [facility]#: [id number] : [birth year] AGE: SEX: F ORDERED BY: ALIE RODRIGUEZ SOURCE: Blood COLLECTED: 04/09/23 14:05 ANTIBIOTICS AT [facility].: RECEIVED : 04/10/23 01:43 SITE: R E S U L T S BLOOD CULTURE, BACTERIAL FINAL 04/14/23 05:42 No Growth at 1 days No Growth at 2 days No Growth at 3 days NO GROWTH at 4 days - FINAL REPORT Normal [facility] Comment on above: Performed By: #### B LDC ####[id number] [place] [address] BLOOD CULTURE, BACTERIAL PATIENT: LUZ HINOJOSA [place]: [facility] [place] [facility]#: [id number] : [birth year] AGE: SEX: F ORDERED BY: ALIE RODRIGUEZ SOURCE: Blood COLLECTED: 04/09/23 14:05 ANTIBIOTICS AT [facility].: RECEIVED : 04/10/23 01:45 SITE: ANTECUBITAL ANTECUBITAL R E S U L T S BLOOD CULTURE, BACTERIAL FINAL 04/14/23 05:42 No Growth at 1 days No Growth at 2 days No Growth at 3 days NO GROWTH at 4 days - FINAL REPORT Normal [facility] Comment on above: Performed By: #### B LDC ####[id number] [place] [address] CBC AND DIFFERENTIALon 04-09 % AUTOMATED IMMATURE GRAN 0.2 % Normal 0.0 - 0.9 [facility] Comment on above: Result Comment: Tammie ture Granulocyte Count (IG) includes promyelocytes, myelocytes and metamyelocytes but does not include bands. Percent differential counts (%) should be interpreted in the context of the absolute cell counts (cells/L). Performed By: #### C BCDF #### [facility] [address] [place] [address] Basophils (Bld) [#/Vol] 0.02 10*3/uL Normal 0.00 - 0.1 0 [facility] Comment on above: Performed By: #### C BCDF #### [address] [address] Basophils/100 WBC (Bld) 0.2 % Normal 0.0 - 2.0 [facility] Comment on above: Performed By: #### C BCDF #### [address] [address] Eosinophils (Bld) [#/Vol] 0.02 10*3/uL Normal 0.00 - 0.70 [facility] Comment on above: Performed By: #### C BCDF #### [address] [address] Eosinophils/100 WBC (Bld) 0.2 % Normal 0.0 - 6.0 [facility] Comment on above: Performed By: #### C BCDF #### [address] [address] Erythrocyte distribution width (RBC) [Ratio] 11.7 % Normal 11.5 - 14.5 [facility] Comment on above: Performed By: #### C BCDF #### [address] [address] Hematocrit (Bld) [Volume fraction] 42.9 % Normal 36.0 - 46.0 [facility] Comment on above: Performed By: #### C BCDF #### [address] [address] Hemoglobin (Bld) [Mass/Vol] 14.3 g/dL Normal 12.0 - 16.0 [facility] Comment on above: Performed By: #### C BCDF #### [address] [address] Lymphocytes (Bld) [#/Vol] 0.91 10*3/uL Low 1.20 - 4.80 [facility] Comment on above: Performed By: #### C BCDF #### [address] [address] Lymphocytes/100 WBC (Bld) 10.4 % Normal 13.0 - 44.0 [facility] Comment on above: Performed By: #### C BCDF #### [address] [address] MCHC (RBC) [Mass/Vol] 33.3 g/dL Normal 32.0 - 36.0 [facility] Comment on above: Performed By: #### C BCDF #### [address] [address] MCV (RBC) [Entitic vol] 89 fL Normal 80 - 100 [facility] Comment on above: Performed By: #### C BCDF #### [address] [address] Monocytes (Bld) [#/Vol] 1.12 10*3/uL High 0.10 - 1.0 0 [facility] Comment on above: Performed By: #### C BCDF #### [address] [address] Monocytes/100 WBC (Bld) 12.8 % Normal 2.0 - 10.0 [facility] Comment on above: Performed By: #### C BCDF #### [address] [address] Neutrophils (Bld) [#/Vol] 6.64 10*3/uL Normal 1.20 - 7.70 [facility] Comment on above: Result Comment: Perc ent differential counts (%) should be interpreted in the context of the absolute cell counts (cells/L). Performed By: #### C BCDF #### [address] [address] Neutrophils/100 WBC (Bld) 76.2 % Normal 40.0 - 80.0 [facility] Comment on above: Performed By: #### C BCDF #### [address] [address] Platelets (Bld) [#/Vol] 283 10*3/uL Normal 150 - 450 [facility] Comment on above: Performed By: #### C BCDF #### [address] [address] RBC 4.85 x10E12/L Normal 4.00 - 5.20 [facility] Comment on above: Performed By: #### C BCDF #### [address] [address] WBC (Bld) [#/Vol] 8.7 10*3/uL Normal 4.4 - 11.3 [facility] Comment on above: Performed By: #### C BCDF #### [address] [address] [address] ABDOMEN AND PELVIS W IV C ONTRASTon 04-09-2023 CT ABDOMEN AND PELVIS W IV CONTRAST Patient Name: LUZ HINOJOSA STUDY: CT ABDOMEN AND PELVIS W IV CONTRAST; 04/09/2023 12:57 pm INDICATION: Periumbilical and RLQ abdominal pain . COMPARISON: January 09, 2020 renal ultrasound ACCESSION NUMBER(S): [id number] ORDERING CLINICIAN: ALIE RODRIGUEZ TECHNIQUE: CT of [...] fluid. Electronically signed by: KIKI ACOSTA MD [facility] Discharge Planning [id number] 04-09-2023 Discharge Planning Note2 Discharge Planning: Needs Prior to Discharge (ex. Home Care Orders, IV/O2 prescriptions) None Discharge Barriersnone Planned Dispositionhome Discharge Destinationhome AMPAC < 20no Patient/Underwriter Mortgage Loan Stated Goalhome Anticipated Discharge [id number] Discharge Planning 04/10/23 0810- Care Transition Note: [...] make her primary contact. Boyfriend Sony Munoz [phone]. Will notify registration of same. Desires to keep her mom as second. AMPAC per nursing is 24, no falls or use of assistive devices. No issues in mobility. 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 Will need work excuse. Plan to d/c home with no other anticipated needs. CT will follow. REBECCA Doshi TCC ([place]) Assessment: Discharge Planning Assessment [id number] Discharge Planning Assessment Completed byREBECCA Doshi TCC Primary Contact Name and NumberBoyfrienjason Munoz [phone] James Qureshi [phone] Prior Level of FunctioningIndependent in all ADL's and IADL's, works, drives Lives Withsignificant other(1) Living Arrangementsapartment(1) Stated Reason for Admissionmy stomach hurt, I started puking this morning(1) Arrived Fromemergency department (1) Matti [facility]/ Injury/ Need Assist with Ambulationdenies Home Care Agency/Support ServicesNone Diabetic/Supplies NeededNone Resource/Environmental Concernsnone(1) Anticipated Transition [place](1) Services Anticipated at Transitionnone(1) PCP Last Date Seen03/06/23 Anticipated Changes Related to Illnessnone Equipment Needed After Dischargenone Anticipated Discharge Facility/Level of Care Needs.Home Social Determinants of Health IdentifiedNone Transportation Home Who/Howmom or boyfriend Medication Adherence/Afford/Obtainy es O2 LPMNone Electronic Signatures: Itzel Coy (RN) (Signed 09-Apr-2023 16:13) Authored: Discharge Planning, Assessment Mena Samson) (Signed 10-Apr-2023 08:19) Authored: Discharge Planning, Assessment Last Updated: 10-Apr-2023 08:19 by Mena Samson (ROXI) References: 1. Data Referenced From Patient Profile - Adult v2 09-Apr-2023 15:54 Normal [facility] HCG,URINEon 04-09-2023 Beta HCG ( test) Ql (U) Negative Normal Negative [facility] Comment on above: Performed By: #### H CGU ####[place] [address] HEPATIC FUNCTION PANELon Albumin [Mass/Vol] 4.6 g/dL Normal 3.4 - 5.0 [facility] Comment on above: Performed By: #### U ARFX #### [id number] ALP [Catalytic activity/Vol] 48 U/L Normal 33 - 110 [facility] Comment on above: Performed By: #### U ARFX #### [address] [address] ALT [Catalytic activity/Vol] 8 U/L Normal 7 - 45 [facility] Comment on above: Result Comment: Glory ents treated with Sulfasalazine may generate falsely decreased results for ALT. Performed By: #### U ARFX #### [address] [address] AST [Catalytic activity/Vol] 16 U/L Normal 9 - 39 [facility] Comment on above: Performed By: #### U ARFX #### [address] [address] Bilirubin [Mass/Vol] 1.1 mg/dL Normal 0.0 - 1.2 [facility] Comment on above: Performed By: #### U ARFX #### [address] [address] Bilirubin.indirect [Mass/Vol] 0.2 mg/dL Normal 0.0 - 0.3 [facility] Comment on above: Performed By: #### U ARFX #### [address] [address] Protein [Mass/Vol] 7.5 g/dL Normal 6.4 - 8.2 [facility] Comment on above: Performed By: #### U ARFX #### [address] [address] LACTATEon 04-09-2023 Lactate [Moles/Vol] 0.8 mmol/L Normal 0.4 - 2.0 [facility] Comment on above: Result Comment: Yoko puncture immediately after or during the administration of Metamizole may lead to falsely low results. Testing should be performed immediately prior to Metamizole dosing. Performed By: #### L ACT #### [id number] LIPASEon 04-09-2023 Lipase [Catalytic activity/Vol] 31 U/L Normal 9 - 82 [facility] Comment on above: Result Comment: Yoko puncture immediately after or during the administration of Metamizole may lead to falsely low results. Testing should be performed immediately prior to Metamizole dosing. O-qyjaqc-v-benzoquinone imine (metabolite of Acetaminophen) will generate erroneously low results in samples for patients that have taken toxic doses of acetaminophen. Performed By: #### L IPAS #### [id number] Order Reconciliationon 04-09 Order Reconciliation Page 1 [...] capsule 1 cap(s) orally once a day [id number] AM Pantoprazole Enteric Coated Tablet (PROTONIX)DOSE = [...] Admissionn/a; family present Notify PCPnotify PCP [facility] Jordyn CORRIGAN Informed of Patient Visiting Rightsyes Arrived Fromemergency department Patient Belongingsremains with patient Patient Belongings Remaining with Patientclothing; cell phone/electronics; purse/wallet; jewelry Medications Brought to Hospitalno General Health: Weight in kg54 kilogram(s)(2) Weight in pbr158 pound(s) Weight Methodactual (measured) Scale Typebed Height [...] Referenced From History and Physical 09-Apr-2023 15:05 [facility] Provider Note - ED v3on 09- [...] made to minimize errors. Minor errors in machine oiler may be present. Please call if questions.. [...] a day SIGNIFICANT EVENTS: Past Medical History Description:[place] teeth extraction CRITICAL CARE RESULTS: Recent Lab Results: I have reviewed these laboratory results: Basic Metabolic Panel Trending View [id number] 13:30:00 09-Apr-2023 11:05:00 Glucose, Serum74 91 NA141 140 K3.9 3.7 CL112 H 107 Bicarbonate, Serum19 L 23 Anion Gap, Serum14 14 BUN19 20 CREAT2.16 H 2.20 H GFR [id number] A 32 A Calcium, Serum8.1 L 9.5 [...] Reference Range: STRAW,YELLOW Appearance, Urine HAZY Specific [place], Urine 1.006 pH, Urine 6.0 Protein, Urine [...] an injured patient at a Trauma Center ([facility]/[place] /[place]): no Electronic Signatures: Imelda Ramirez (RN) (Signed 09-Apr-2023 10:53) Authored: Preferred Language, Patient Preferred Pharmacy, Advanced Directives, Family Violence Adult, Learning Assessment (Patient), Learning Assessment (Other Learner), Pressure Injury/TB/Substance, Pressure Injury, CAGE Last Updated: 09-Apr-2023 10:53 by Imelda Ramirez (RN) [facility] Triage - EDon 04-09-2023 Triage - [...] support. Weight: 119.0 pounds. Calculated 54.0 kg. [place] Coma Scale: Best Eye Response: (E4) spontaneous [...] on above: Performed By: #### U AMIC ####[place] [address] RBC 2 /HPF Normal 0-5 [facility] Comment on above: Performed By: #### U AMIC ####[place] [address] SQUAMOUS EPITH. CELLS 19 /HPF Normal [facility] Comment on above: Performed By: #### U AMIC ####[place] [address] WBC 9 /HPF Abnormal 0-5 [facility] Comment on above: Performed By: #### U AMIC ####[place] [address] URINALYSIS WITH CULTURE IF I NDICATEDon 04-09-2023 Appearance (U) HAZY Normal CLEAR [facility] Comment on above: Performed By: #### U ARFX #### [place] [address] Bilirubin Ql (U) Negative Normal NEGATIVE [facility] Comment on above: Performed By: #### U ARFX #### [place] [address] Color (U) Rox Normal STRAW,YELLOW [facility] Comment on above: Performed By: #### U ARFX #### [place] [address] Glucose Ql (U) Negative Normal NEGATIVE [facility] Comment on above: Performed By: #### U ARFX #### [place] [address] Hemoglobin Ql (U) MODERATE (2+) Abnormal NEGATIVE [facility] Comment on above: Performed By: #### U ARFX #### [place] [address] Ketones Ql (U) Negative Normal NEGATIVE [facility] Comment on above: Performed By: #### U ARFX #### [place] [address] Leukocyte esterase Test strip Ql (U) Negative Normal NEGATIVE [facility] Comment on above: Performed By: #### U ARFX #### [place] [address] Nitrite Ql (U) Positive Abnormal NEGATIVE [facility] Comment on above: Performed By: #### U ARFX #### [place] [address] pH (U) 6.0 [pH] Normal 5.0 - 8.0 [facility] Comment on above: Performed By: #### U ARFX #### [place] [address] Protein Ql (U) Negative Normal NEGATIVE [facility] Comment on above: Performed By: #### U ARFX #### [place] [address] Specific gravity (U) [Rel density] 1.006 Normal 1.005 - 1.035 [facility] Comment on above: Performed By: #### U ARFX #### [address] [address] Urobilinogen (U) [Mass/Vol] mg/dL Normal 0.0 - 1.9 [facility] Comment on above: Performed By: #### U ARFX #### [address] [address] URINE CULTURE,BACTERIALon URINE CULTURE,BACTERIAL PATIENT: LUZ HINOJOSA LOCATION: [address]#: [id number] : [birth year] AGE: SEX: F ORDERED BY: ALIE RODRIGUEZ SOURCE: URINE COLLECTED: 04/09/23 11:05 ANTIBIOTICS AT [facility].: RECEIVED : 04/09/23 19:53 SITE: R E Felisha U L T S URINE CULTURE,BACTERIAL FINAL 04/10/23 13:17 NO SIGNIFICANT GROWTH. Normal [facility] Comment on above: Performed By: #### U RINC ####[id number] [place] [address] Provider Note - ED v3on 10-21 Provider [...] and vomiting SIGNIFICANT EVENTS: Past Medical History Description:[place] teeth extraction MDM MDM/ED COURSE: PMH: Reviewed [...] ill patient: no Electronic Signatures: Alie Flor (OFFICE HELPER-[facility]) (Signed 06-Nov-2022 19:03) Authored: HPI, PMH, MDM/ED Course, Clinical Impression, Attestation, Chart Review, Scores Last Updated: 06-Nov-2022 19:03 by Alie Flor (OFFICE HELPER-[facility]) References: 1. Data Referenced From Triage [...] an injured patient at a Trauma Center ([facility]/[place] /[place]): no Electronic Signatures: Vivian Allred (ROXI) (Signed 06-Nov-2022 18:52) Authored: Preferred Language, Patient Preferred Pharmacy, Advanced Directives, Family Violence Adult, Learning Assessment (Patient), Learning Assessment (Other Learner), Pressure Injury/TB/Substance, Pressure Injury, CAGE Last Updated: 06-Nov-2022 18:52 by Vivian Allred (RN) [facility] Triage - EDon 11-06-2022 Triage - ED Quick Triage: Are You no Have You Given In The Last 6 Weeksno Are You Currently Breastfeedingno Chart Review: PRIMARY ASSESSMENT ABCD Normal Findings: airway open and patent, circulation normal and alert and oriented ARRIVAL INFORMATION Means of Arrival: Ambulatory Mode of Arrival: private vehicle Arrival From: home Accompanied By: self Language: Spoken Language Preferred: Turkish Reading Language Preferred: Turkish Present on Arrival: Device Present on Arrival [...] obeys commands Best Verbal Response: (V5) oriented [place] Score: 15 Allergies: yes Last menstrual period: unknown [employer]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 Comment on above: Performed By: #### B MP #### [address] [address] Creatinine [Mass/Vol] 0.73 mg/dL Normal 0.50 - 1.05 [facility] Comment on above: Performed By: #### B MP #### [address] [address] eGFR FEMALE >90 Normal >90 [facility] Comment on above: Result Comment: CALC ULATIONS OF ESTIMATED GFR ARE PERFORMED USING THE 2020 CKD-EPI STUDY REFIT EQUATION WITHOUT THE RACE VARIABLE FOR THE IDMS-TRACEABLE CREATININE METHODS. https://jasn.asnjournals.org/content/early/ASN.2020 714956 Performed By: #### B MP #### [place] [id number] Glucose [Mass/Vol] 78 mg/dL Normal 74 - 99 [facility] Comment on above: Performed By: #### B MP #### [address] [address] HCO3 (Bld) [Moles/Vol] 27 mmol/L Normal 21 - 32 [facility] Comment on above: Performed By: #### B MP #### [address] [address] Potassium [Moles/Vol] 3.9 mmol/L Normal 3.5 - 5.3 [facility] Comment on above: Performed By: #### B MP #### [address] [address] Sodium [Moles/Vol] 139 mmol/L Normal 136 - 145 [facility] Comment on above: Performed By: #### B MP #### [place] [id number] Urea nitrogen [Mass/Vol] 11 mg/dL Normal 6 - 23 [facility] Comment on above: Performed By: #### B MP #### [address] [address] CBC AND DIFFERENTIALon 08-24 % AUTOMATED IMMATURE GRAN 0.0 % Normal 0.0 - 0.9 [facility] Comment on above: Result Comment: Tammie ture Granulocyte Count (IG) includes promyelocytes, myelocytes and metamyelocytes but does not include bands. Percent differential counts (%) should be interpreted in the context of the absolute cell counts (cells/L). Performed By: #### U ARFX #### [address] [address] Basophils (Bld) [#/Vol] 0.04 10*3/uL Normal 0.00 - 0.1 0 [facility] Comment on above: Performed By: #### U ARFX #### [address] [address] Basophils/100 WBC (Bld) 0.5 % Normal 0.0 - 2.0 [facility] Comment on above: Performed By: #### U ARFX #### [address] [address] Eosinophils (Bld) [#/Vol] 0.08 10*3/uL Normal 0.00 - 0.70 [facility] Comment on above: Performed By: #### U ARFX #### [address] [address] Eosinophils/100 WBC (Bld) 1.1 % Normal 0.0 - 6.0 [facility] Comment on above: Performed By: #### U ARFX #### [address] [address] Erythrocyte distribution width (RBC) [Ratio] 11.3 % Low 11.5 - 14.5 [facility] Comment on above: Performed By: #### U ARFX #### [address] [address] Hematocrit (Bld) [Volume fraction] 41.9 % Normal 36.0 - 46.0 [facility] Comment on above: Performed By: #### U ARFX #### [address] [address] Hemoglobin (Bld) [Mass/Vol] 14.1 g/dL Normal 12.0 - 16.0 [facility] Comment on above: Performed By: #### U ARFX #### [address] [address] Lymphocytes (Bld) [#/Vol] 2.21 10*3/uL Normal 1.20 - 4.80 [facility] Comment on above: Performed By: #### U ARFX #### [address] [address] Lymphocytes/100 WBC (Bld) 29.6 % Normal 13.0 - 44.0 [facility] Comment on above: Performed By: #### U ARFX #### [address] [address] MCHC (RBC) [Mass/Vol] 33.7 g/dL Normal 32.0 - 36.0 [facility] Comment on above: Performed By: #### U ARFX #### [address] [address] MCV (RBC) [Entitic vol] 88 fL Normal 80 - 100 [facility] Comment on above: Performed By: #### U ARFX #### [address] [address] Monocytes (Bld) [#/Vol] 0.61 10*3/uL Normal 0.10 - 1.0 0 [facility] Comment on above: Performed By: #### U ARFX #### [address] [address] Monocytes/100 WBC (Bld) 8.2 % Normal 2.0 - 10.0 [facility] Comment on above: Performed By: #### U ARFX #### [address] [address] Neutrophils (Bld) [#/Vol] 4.53 10*3/uL Normal 1.20 - 7.70 [facility] Comment on above: Result Comment: Perc ent differential counts (%) should be interpreted in the context of the absolute cell counts (cells/L). Performed By: #### U ARFX #### [address] [address] Neutrophils/100 WBC (Bld) 60.6 % Normal 40.0 - 80.0 [facility] Comment on above: Performed By: #### U ARFX #### [address] [address] Platelets (Bld) [#/Vol] 286 10*3/uL Normal 150 - 450 [facility] Comment on above: Performed By: #### U ARFX #### [address] [address] RBC 4.79 x10E12/L Normal 4.00 - 5.20 [facility] Comment on above: Performed By: #### U ARFX #### [address] [address] WBC (Bld) [#/Vol] 7.5 10*3/uL Normal 4.4 - 11.3 [facility] Comment on above: Performed By: #### U ARFX #### [address] [address] HCG,BETA-QUANTITATIVEon HCG,BETA-QUANTITATIVE <2 Normal [facility] Comment on above: Result Comment: . Total HCG measurement is performed using the Tram Ring Access Immunoassay which detects intact HCG and free beta HCG subunit. . This test is not indicated for use as a tumor marker. HCG testing is performed using a different test methodology at [facility] than other [facility]. Direct result comparison should only be made within the same method. REF VALUES NON FEMALE <5 MALES <5 Performed By: #### H CGQU #### [address] [address] HCG,URINEon 08-24-2022 Beta HCG ( test) Ql (U) Negative Normal Negative [facility] Comment on above: Performed By: #### H CGU #### [address] [address] Provider Note - ED v3on Provider Note [...] (V49.89) (Z78.9) Surgical History Problems History of [place] tooth extraction x 4 extracted 4 years [...] a day SIGNIFICANT EVENTS: Past Medical History Description:[place] teeth extraction REVIEW OF SYSTEMS CONSTITUTIONAL: Negative [...] and affect. N (more content not included)... [facility] Risk Screen - Adult Emergenc yon [...] an injured patient at a Trauma Center ([facility]/[place] /[place]): no Electronic Signatures: Ruthann Aguilera (ROXI) (Signed 24-Aug-2022 16:09) Authored: Preferred Language, Patient Preferred Pharmacy, Advanced Directives, Family Violence Adult, Learning Assessment (Patient), Learning Assessment (Other Learner), Pressure Injury/TB/Substance, Pressure Injury, CAGE Last Updated: 24-Aug-2022 16:09 by Ruthann Aguilera (RN) [facility] Triage - EDon 08-24-2022 Triage - [...] BMI (kg/m2): 19.994 Calculated BSA (m2) 1.58 [place] Coma Scale: Best Eye Response: (E4) spontaneous [...] Past Medical History: Past Medical History Reviewedyes [place] teeth extraction: Past Medical History, Active Electronic Signatures: Johnny Potter (EMT-P) (Signed 24-Aug-2022 14:18) Entered: Risk Screens, Pain, Travel History, Chart Review, Scores Authored: Quick Triage, Risk Screens, Pain, Travel History, Chart Review, Scores Ruthann Aguilera (ROXI) (Signed 24-Aug-2022 16:07) Authored: Quick Triage, Pain, Chart Review, Past Medical History Last Updated: 24-Aug-2022 16:07 by Ruthann Aguilera (ROXI) Normal [facility] UA MICROSCOPICon 08-24-2022 BACTERIA 1+ /HPF Abnormal [facility] Comment on above: Performed By: #### U AMIC ####[place] [address] RBC 83 /HPF Abnormal 0-5 [facility] Comment on above: Performed By: #### U AMIC ####[place] [address] SQUAMOUS EPITH. CELLS 11 /HPF Normal [facility] Comment on above: Performed By: #### U AMIC ####[place] [address] WBC 7 /HPF Abnormal 0-5 [facility] Comment on above: Performed By: #### U AMIC ####[place] [address] URINALYSISon 08-24-2022 Appearance (U) HAZY Normal CLEAR [facility] Comment on above: Performed By: #### U ARFX #### [place] [address] Bilirubin Ql (U) Negative Normal NEGATIVE [facility] Comment on above: Performed By: #### U ARFX #### [place] [address] Color (U) Yellow Normal STRAW,YELLOW [facility] Comment on above: Performed By: #### U ARFX #### [place] [address] Glucose Ql (U) Negative Normal NEGATIVE [facility] Comment on above: Performed By: #### U ARFX #### [place] [address] Hemoglobin Ql (U) LARGE(3+) Abnormal NEGATIVE [facility] Comment on above: Performed By: #### U ARFX #### [place] [address] Ketones Ql (U) Negative Normal NEGATIVE [facility] Comment on above: Performed By: #### U ARFX #### [place] [address] Leukocyte esterase Test strip Ql (U) Negative Normal NEGATIVE [facility] Comment on above: Performed By: #### U ARFX #### [place] [address] Nitrite Ql (U) Negative Normal NEGATIVE [facility] Comment on above: Performed By: #### U ARFX #### [place] [address] pH (U) 7.0 [pH] Normal 5.0 - 8.0 [facility] Comment on above: Performed By: #### U ARFX #### [place] [address] Protein Ql (U) 30(1+) Abnormal NEGATIVE [facility] Comment on above: Performed By: #### U ARFX #### [place] [address] Specific gravity (U) [Rel density] 1.018 Normal 1.005 - 1.035 [facility] Comment on above: Performed By: #### U ARFX #### [address] [address] Urobilinogen (U) [Mass/Vol] mg/dL Normal 0.0 - 1.9 [facility] Comment on above: Performed By: #### U ARFX #### [address] [address] Office Visit (Internal Medic ine)on 08-03-2022 Follow-up visit Diagnoses/Problems Assessed Anxiety (300.00) (F41.9) Weight gain (783.1) (R63.5) Abnormal menses (626.9) (N92.6) Depression screening negative (V79.0) (Z13.31) Orders Abnormal menses, Night sweats T3 - Free Triiodothyronine, Serum; Status:Active; Requested for:[id number]; Perform:Lab Services - Lab To Draw (Blood Test); Due:13Dec2022;Ordered; For:Abnormal menses, Night sweats; Ordered By:Kemi Echevarria; T4 - Free Thyroxine, Serum; Status:Active; Requested for:[id number]; Perform:Lab Services - Lab To Draw (Blood Test); Due:13Dec2022;Ordered; For:Abnormal menses, Night sweats; Ordered By:Kemi Echevarria; TSH - Thyroid Stimulating Hormone, Serum; Status:Active; Requested for:[id number]; Perform:Lab Services - Lab To Draw (Blood Test); Due:13Dec2022;Ordered; For:Abnormal menses, Night sweats; Ordered By:Kemi Echevarria; Generalized anxiety disorder with panic attacks Renew: PARoxetine HCl - 40 MG Oral Tablet; TAKE 1 TABLET DAILY Rx By: Kemi Echevarria; Dispense: 90 Days ; #:90 Tablet; Refill: 3;For: Generalized anxiety disorder with panic attacks; CATE = N; Verified Transmission to [facility] 1893; Last Updated By: Cortez Klein; 08/03/2022 11:40:41 [...] (V49.89) (Z78.9) Surgical History Problems History of [place] tooth extraction x 4 extracted 4 years [...] 2:28:14 P (more content not included)... Normal [employer] Tobacco Screening.on 023 Tobacco use status [facility] a) Yes M [facility] Work Phone: Tobacco Screening. Yes [facility] Work Phone: IO HCG, Urine Test on 06-14-2022 HCG ( test) Ql (U) Negative [facility] Work Phone: Office Visit [...] (V49.89) (Z78.9) Surgical History Problems History of [place] tooth extraction x 4 extracted 4 years [...] Phone: Tobacco use status [facility] a) Yes M [facility] Work Phone: Tobacco Screening. Yes [facility] Medicine Work Phone: XR FINGER(S) LEFT 2+ [...] distal phalanx. There is minimal callous formation. [employer] Workstation ID: [id number] Dictated by: MAYELIN LANDRY on SunJun 07, 2022 7:25:17 PM EST Transcribed by: MYRNA GOODMAN on SunJun 07, 2022 7:40:20 PM EST Finalized by: MAYELIN LANDRY on SunJun 08, 2022 9:26:[address] [facility] Comment on above: Order Comment: [...] attacks; CATE = N; Verified Transmission to [facility] 1448; Last Updated By: Vendly; 06/06/2022 2:28:43 PM Renew: PARoxetine HCl - 30 MG Oral Tablet; TAKE 1 TABLET DAILY Rx By: Jordyn Ramirez; Dispense: 90 Days ; #:90 Tablet; Refill: 1;For: Generalized anxiety disorder with panic attacks; CATE = N; [facility]; Last Updated By: Vendly; 06/06/2022 2:28:49 PM Patient Discussion/Summary FEBRUARY WITH [...] (V49.89) (Z78.9) Surgical History Problems History of [place] tooth extraction x 4 extracted 4 years ago Family History Mother Family history of Bipolar 1 disorder Father No pertinent family history Maternal Grandmother Family history of Family history of myocardial infarction (V17.3) (Z82.49) in her 40's Family history of type 2 diabetes mellitus (V18.0) (Z83.3) Social History Problems Cigarette nicotine dependence (305.1) (F17.210) Consumes al (more content not included)... Normal [employer] Tobacco Screening.on 022 Fall risk assessment a) No falls within the last year [facility] Work Phone: Tobacco use status [facility] a) Yes [facility] Work Phone: Tobacco Screening. [...] the base of the 3rd distal phalanx. [employer] Workstation ID: [id number] Dictated by: GARUI BLANCA on [facility] May 13, 2022 6:52:11 PM EDT Transcribed by: MYRNA OGODMAN on [facility] May 13, 2022 8:00:17 PM EDT Finalized by: GAURI BLANCA on [place] May 14, 2022 8:49:48 AM EDT [facility] Amb[facility] Comment on above: Order Comment: Injur y/Trauma or Illness?:Injury/Trauma How long have you had these symptoms (acute/chronic)?:Acute Reason for exam?:f.u Closed nondisplaced fracture of distal phalanx of left middle finger History of cancer?:n Surgeries, chemotherapy, or radiation?:n Type of Exam?:Subsequent/Follow-up Mechanism of injury?:wrestling on 04/23 HCG, Beta Quantitativeon HCG.beta subunit Qn m[IU]/mL [facility] Work Phone: Comment on above: [...] HCG measurement is performed using the Tram Ring Access Immunoassay which detects intact HCG and free beta HCG subunit. This test is not indicated for use as a tumor marker. HCG testing is performed using a different test methodology at [facility] than other [facility]. Direct result comparison should only be made within the same method. REF VALUESNON FEMALE <5MALES <5 HCG,BETA-QUANTITATIVEon 04-22 HCG,BETA-QUANTITATIVE <2 Normal [facility] Comment on above: Result Comment: [...] HCG measurement is performed using the Tram Ring Access Immunoassay which detects intact HCG and free beta HCG subunit. This test is not indicated for use as a tumor marker. HCG testing is performed using a different test methodology at [facility] than other [facility]. Direct result comparison should only be made within the same method. REF VALUES NON FEMALE <5 MALES <5 Performed By: #### H CGQU #### [facility] [address] [place] [address] Office Visit (Internal Medic ine)on 05-02-2022 Follow-up [...] (V49.89) (Z78.9) Surgical History Problems History of [place] tooth extraction x 4 extracted 4 years [...] Vitals Vital Signs Recorded: 02May2022 08:59AM Heart Wqhz546 Puodxdfz794 Levhnneuz48 Height5 ft 5 in Ezmfed347 lb 15.82 oz BMI Pwrrkhkljv00.81 kg/m2 BSA Calculated1.52 Tobacco Usea) Yes Patient [...] Apical pulse (more content not included)... Normal [employer] Tobacco Screening.on Fall risk assessment a) No falls within the last year [facility] Work Phone: Tobacco use status [facility] a) Yes [facility] Work Phone: Tobacco Screening. [...] on SunApr 24, 2022 12:19:58 PM EDT [facility] [place] Comment on above: Order Comment: Injur y/Trauma [...] attacks; CATE = N; Verified Transmission to [facility] 6286; Last Updated By: [employer]; 03/31/2022 2:39:28 PM Health Maintenance Complete Blood Count + Differential; Status:Active; Requested for:31Mar2023; Perform:Lab Services - Lab To Draw (Blood Test); Due:29Jun2023;Ordered; For:Health Maintenance; Ordered By:Jordyn Ramirez; Comprehensive Metabolic Panel; Status:Active; Requested for:31Mar2023; Perform:Lab Services - Lab To Draw (Blood Test); Due:[id number];Ordered; For:Health Maintenance; Ordered By:Jordyn Ramirez; Hemoglobin A1C; Status:Active; Requested for:31Mar2023; Perform:Lab Services - Lab To Draw (Blood Test); Due:[id number];Ordered; For:Health Maintenance; Ordered By:Jordyn Ramirez; Lipid Panel; Status:Active; Requested for:31Mar2023; Perform:Lab Services - Lab To Draw (Blood Test); Due:29Jun2023;Ordered; For:Health Maintenance; Ordered By:Jordyn Ramirez; TSH WITH REFLEX TO FREE T4 IF ABNORMAL; Status:Active; Requested for:[id number]; Perform:Lab Services - Lab To Draw (Blood Test); Due:77Ydd2859;Ordered; For:Health Maintenance; Ordered By:Jordyn Ramirez; Patient Discussion/Summary [...] labs History of Present IllnessPresents today for [facility] MED [facility]. NO NEW [...] included)... Normal [employer] Complete Blood Count + Diffgo parra 03-10-2022 Basophils/100 WBC (Bld) 1.0 % 0.0 - 2.0 M [facility] Work Phone: Erythrocyte distribution width (RBC) [Ratio] 12.2 % See Below [facility] Work Phone: Comment on above: Reference Range: 11. 5 - 14.5 Hematocrit (Bld) [Volume fraction] 44.2 % See Below [facility] Work Phone: Comment on above: Reference Range: 36. 0 - 46.0 Hemoglobin (Bld) [Mass/Vol] 15.1 g/dL See Below [facility] Work Phone: Comment on above: Reference Range: 12. 0 - 16.0 Lymphocytes/100 WBC (Bld) 26.6 % See Below [facility] Work Phone: Comment on above: Reference Range: 13. 0 - 44.0 MCHC (RBC) [Mass/Vol] 34.3 g/dL See Below [facility] Work Phone: Comment on above: Reference Range: 32. 0 - 36.0 MCV (RBC) [Entitic vol] 88 fL 80 - 100 M [facility] Work Phone: Monocytes/100 WBC (Bld) 7.4 % 2.0 - 10.0 M [facility] Work Phone: Neutrophils/100 WBC (Bld) 64.5 % See Below [facility] Work Phone: Comment on above: Reference Range: 40. 0 - 80.0 Platelets (Bld) [#/Vol] 275 10*3/uL 150 - 450 [facility] Work Phone: RBC (Bld) [#/Vol] 5.05 {x10E12/L} See Below [facility] Work Phone: Comment on above: Reference Range: 4.0 0 - 5.20 WBC (Bld) [#/Vol] 6.7 10*3/uL 4.4 - 11.3 [facility] Work Phone: Complete Blood Count + Differential 0.10 {x10E9/L} See Below [facility] Work Phone: Comment on above: Reference Range: 0.0 0 - 0.10 Complete Blood Count + Differential 0.00 {x10E9/L} See Below [facility] Work Phone: Comment on above: Reference Range: 0.0 0 - 0.70 Complete Blood Count + Differential 0.50 {x10E9/L} See Below [facility] Work Phone: Comment on above: Reference Range: 0.1 0 - 1.00 Complete Blood Count + Differential 1.80 {x10E9/L} See Below [facility] Work Phone: Comment on above: Reference Range: 1.2 0 - 4.80 Complete Blood Count + Differential 4.30 {x10E9/L} See Below [facility] Work Phone: Comment on above: Reference Range: 1.2 0 - 7.70 Percent differential counts (%) should be interpreted in the context of the absolute cell counts (cells/L). Complete Blood Count + Differential 0.5 % 0.0 - 6.0 [facility] Work Phone: Ferritin, Serumon 03-10-2022 Ferritin [Mass/Vol] 77 ug/L 8 - 150 [facility] Work Phone: Folate, Serumon 03-10-2022 Folate [Mass/Vol] 19.2 ng/mL >5.0 [facility] Work Phone: Comment on above: Low <3.4Borderline 3 .4-5.0Normal >5.0. Patients receiving more than 5 mg/day of biotin may have interference in test results. A sample should be taken no sooner than eight hours after previous dose. Contact the testing laboratory for additional information. Hemoglobin A1Con 03-10-2022 Glucose [Mass/Vol] 103 mg/dL [facility] Work Phone: HbA1c (Bld) [Mass fraction] 5.2 % [facility] Work Phone: Comment on above: Diagnosis of Diabete s-Adults Non-Diabetic: < or = 5.6% Increased risk for developing diabetes: 5.7-6.4% Diagnostic of diabetes: > or = 6.5%. Monitoring of Diabetes Age (y) Therapeutic Goal (%) Adults: >18 <7.0 Pediatrics: 13-18 <7.5 7-12 <8.0 0- 6 7.5-8.5 [place] [employer]. Diabetes Care 33(S1), Jul 2009. Laboratory - Chemistry and C hemistry - challengeon 03-10-2022 Albumin BCP dye [Mass/Vol] 4.9 g/dL 3.4 - 5.0 [facility] Work Phone: ALP [Catalytic activity/Vol] 42 U/L 33 - 110 [facility] Work Phone: ALT With P-5'-P [Catalytic activity/Vol] 9 U/L 7 - 45 [facility] Work Phone: Comment on above: Patients treated wit h Sulfasalazine may generate falsely decreased results for ALT. Anion gap [Moles/Vol] 13 mmol/L 10 - 20 [facility] Medicine Work Phone: AST With P-5'-P [Catalytic activity/Vol] 16 U/L 9 - 39 [facility] Work Phone: Bilirubin [Mass/Vol] 1.3 mg/dL above high threshold 0.0 - 1.2 [facility] Work Phone: Calcium [Mass/Vol] 9.5 mg/dL 8.6 - 10.3 [facility] Work Phone: Chloride [Moles/Vol] 106 mmol/L 98 - 107 [facility] Work Phone: CO2 [Moles/Vol] 25 mmol/L 21 - 32 [facility] Work Phone: Creatinine [Mass/Vol] 0.85 mg/dL See Below [facility] Work Phone: Comment on above: Reference Range: 0.5 0 - 1.05 Glucose [Mass/Vol] 87 mg/dL 74 - 99 [facility] Work Phone: Iron [Mass/Vol] 141 ug/dL 35 - 150 [facility] Work Phone: Iron binding capacity [Mass/Vol] 349 ug/dL 240 - 445 [facility] Work Phone: Potassium [Moles/Vol] 3.9 mmol/L 3.5 - 5.3 [facility] Work Phone: Protein [Mass/Vol] 7.5 g/dL 6.4 - 8.2 [facility] Work Phone: Sodium [Moles/Vol] 140 mmol/L 136 - 145 [facility] Work Phone: TSH Qn 0.93 m[IU]/L See Below [facility] Work Phone: Comment on above: Reference Range: 0.4 4 - 3.98 TSH testing is performed using different testing methodology at [facility] than at other [facility]. Direct result comparisons should only be made within the same method. Urea nitrogen [Mass/Vol] 15 mg/dL 6 - 23 [facility] Work Phone: Lipid Panelon 03-10-2022 Cholesterol [Mass/Vol] 143 mg/dL 0 - 199 [facility] Work Phone: Comment on above: . [...] dosing. Cholesterol in HDL [Mass/Vol] 58.0 mg/dL [facility] Work Phone: Comment on above: . AGE VERY LOW LOW N ORMAL HIGH 0-19 Y < 35 < 40 40-45 ---- 20-24 Y ---- < 40 >45 ---- >24 Y ---- < 40 40-60 >60. Cholesterol in LDL [Mass/Vol] 74 mg/dL 0 - 119 [facility] Work Phone: Comment on above: . NEAR BORD AGE DEE DEE RABLE OPTIMAL HIGH HIGH VERY HIGH 0-19 Y 0 - 109 --- 110-129 >/= 130 ---- 20-24 Y 0 - 119 --- 120-159 >/= 160 ---- >24 Y 0 - 99 100-129 130-159 160-189 >/=190. Cholesterol non HDL [Mass/Vol] 85 mg/dL 0 - 149 [facility] Work Phone: Comment on above: AGE DESIRABLE BORDER LINE HIGH HIGH VERY HIGH 0-19 Y 0 - 119 120 - 144 >/= 145 >/= 160 20-24 Y 0 - 149 150 - 189 >/= 190 ---- >24 Y 30 MG/DL ABOVE LDL CHOLESTEROL GOAL. Cholesterol.total/Doris sterol in HDL [Mass ratio] 2.5 {ratio} [facility] Work Phone: Comment on above: REF VALUESDESIRABLE < 3.4HIGH RISK > 5.0 Triglyceride [Mass/Vol] 57 mg/dL 0 - 149 M [facility] Work Phone: Comment on above: . AGE [...] Lipid Panel 11 mg/dL 0 - 40 [facility] Work Phone: No Panel Informationon 03-10 >90 >90 [facility] Work Phone: Comment on above: CALCULATIONS OF JOSE MATED GFR ARE PERFORMED USING THE 2020 CKD-EPI STUDY REFIT EQUATION WITHOUT THE RACE VARIABLE FOR THE IDMS-TRACEABLE CREATININE METHODS.https://jasn.asnjournals.org/content// ASN.9742831491 40 % 25 - 45 [facility] Work Phone: Vitamin B12, Serumon 022 Cobalamin (Vitamin B12) [Mass/Vol] 215 pg/mL 211 - 911 [facility] Work Phone: Office Visit (Internal Medic [...] attacks; CATE = N; Verified Transmission to [facility] [employer]; Last Updated By: Vendly; 03/03/2022 2:58:35 PM Start: PARoxetine HCl - 10 MG Oral Tablet (Paxil); TAKE 1 TABLET DAILY Rx By: Jordyn Ramirez; Dispense: 90 Days ; #:90 Tablet; Refill: 0;For: Generalized anxiety disorder with panic attacks; CATE = N; Verified Transmission to [facility] [employer]; Last Updated By: Vendly; 03/03/2022 2:58:27 PM GERD (gastroesophageal reflux disease) Renew: Omeprazole 20 MG Oral Capsule Delayed Release; TAKE 1 CAPSULE Daily Rx By: Jordyn Ramirez; Dispense: 90 Days ; #:90 Capsule; Refill: 3;For: GERD (gastroesophageal reflux disease); CATE = N; [facility]; Last Updated By: System, Yapert; 03/03/2022 2:59:29 PM Patient Discussion/Summary 1 MONTH [...] AND MEDICATIONS (more content not included)... Normal [employer] Tobacco Screening.on 022 Adult depression screening assessment No [facility] Work Phone: Fall risk assessment a) No falls within the last year [facility] Work Phone: Tobacco use status [facility] a) Yes [facility] Work Phone: Tobacco Screening. Yes [facility] Work Phone: C. trachomatis/GC PCR Panel on [facility] 10-26-2021 C. trachomatis/GC PCR Panel on [facility] Reason for preventing automatic release->Other Is this specimen being sent to an external lab?->No Release to patient->Manual release only [id number]&Urine-First Void^^^Urine&Urine C. trachomatis PCR on [facility]: NEGATIVE-Chlamydia [...] with other laboratory and clinical data. Normal [facility] Comment on above: Performed By: #### C TNG ####[place] of [address] [id number] Progress Noteon 10-26-2021 [employer] Authentication Interface Message Text Patient ID: Luz Hinojoas is a 20 y.o. female. Her chief [...] once for 1 dose - nystatin (MYCOSTATIN) [id number] UNIT/GM OINT ointment; Apply to affected area [...] Blood, Urine Negative Negative POCT Urine Specific [place] 1.015 1.005 - 1.030 POCT Ketones, Urine Negative Negative mg/dl POCT Glucose, Urine Negative Negative mg/dl Normal [facility] Urine Cultureon 10-26-2021 Bacteria identified Cx Nom (U) Is this specimen being sent to an external lab?->No Release to patient->Automatic [id number]&Urine-CCMS^^^Urine &Urine Urine Culture: Enterococcus sp. Source: [facility] Collected: 10/26/21 17:15 Site: Urine Received : 10/26/21 21:53 Urine Culture FINAL 10/28/21 09:26 10,000 - 50,000 CFU/ml of Normal Skin/urogenital ivy present <10,000 CFU/ml Enterococcus sp. If further work-up is needed, providers should call the Microbiology lab within 3 days. Normal [facility] Comment on above: Performed By: #### U RINE ####[place] of [address] [phone] SARS-CoV-2 (COVID-19) RT-PCR on 08-04-2021 SARS-CoV-2 (COVID-19) RNA GIOVANNI+probe Ql (Unsp spec) Positive Abnormal [facility] Comment on above: Order Comment: Is th is a pre-procedure screening test?->NoIs this specimen being sent to an external lab?->[id number]&Nasopharyngeal swab^\S\^Nose&Nose Result Comment: POSI TIVE: SARS-CoV-2 RNA [...] at the following links: For Healthcare Providers: www.[employer].gov/media/113796/download For Patients: www.[employer].gov/[place] [place]/032819/download - Reference Value: Negative Performed By: #### C OVID ####[address] [phone] CHRIS SARS CoV-2 RT PCR Detected Normal [facility] Comment on above: Order Comment: Is th is a pre-procedure screening test?->NoIs this specimen being sent to an external lab?->[id number]&Nasopharyngeal swab^\S\^Nose&Nose Performed By: #### C OVID ####[address] [phone] 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 No Normal [facility] Comment on above: Order Comment: Is th is a pre-procedure screening test?->NoIs this specimen being sent to an external lab?->[id number]&Nasopharyngeal swab^\S\^Nose&Nose Performed By: #### C OVID ####[place] [address] Hospitalized? No Normal [facility] Comment on above: Order Comment: Is th is a pre-procedure screening test?->NoIs this specimen being sent to an external lab?->[id number]&Nasopharyngeal swab^\S\^Nose&Nose Performed By: #### C OVID ####[address] ICU? No Normal [facility] Comment on above: Order Comment: Is th is a pre-procedure screening test?->NoIs this specimen being sent to an external lab?->[id number]&Nasopharyngeal swab^\S\^Nose&Nose Performed By: #### C OVID ####[address] [phone] ? Unknown Normal [facility] Comment on above: Order Comment: Is th is a pre-procedure screening test?->NoIs this specimen being sent to an external lab?->[id number]&Nasopharyngeal swab^\S\^Nose&Nose Performed By: #### C OVID ####[address] [phone] Resident in [place] [facility] care setting? No Normal [facility] Comment on above: Order Comment: Is th is a pre-procedure screening test?->NoIs this specimen being sent to an external lab?->[id number]&Nasopharyngeal swab^\S\^Nose&Nose Performed By: #### C OVID ####[address] [phone] SARS-CoV-2 (COVID-19) RNA GIOVANNI+probe Ql (Unsp spec) No Normal [facility] Comment on above: Order Comment: Is th is a pre-procedure screening test?->NoIs this specimen being sent to an external lab?->[id number]&Nasopharyngeal swab^\S\^Nose&Nose Performed By: #### C OVID ####[address] [phone] Symptomatic as defined by CDC? 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 Cognition are normal. Normal [facility] C-Reactive Proteinon 021 C-Reactive Protein 0.5 mg/dL Normal 0.0-1.0 [facility] Comment on above: Order Comment: With differential. Is this specimen being sent to an external lab?->No Release to patient->Automatic 03989&Blood^\S\^Venous&Venous TIBC will not be run. Is this specimen being sent to an external lab?->No Release to patient->Automatic 22977&Blood^\S\^Venous&Venous Result Comment: CRP determinations in neonates should be interpreted with caution. CRP may be elevated in circumstances not associated with inflammation (e.g. difficult delivery, pneumothorax). In premature neonates CRP levels may not rise to abnormal levels even if sepsis is present; some speculate that immature liver function decreases the ability to generate a CRP response. Performed By: #### C RP #### [place] [address] Comp Metabolic Panelon 06-23 Albumin [Mass/Vol] 4.6 g/dL Normal 3.5-5.0 [facility] Comment on above: Order Comment: With differential. Is this specimen being sent to an external lab?->No Release to patient->Automatic 39895&Blood^\S\^Venous&Venous TIBC will not be run. Is this specimen being sent to an external lab?->No Release to patient->Automatic 02195&Blood^\S\^Venous&Venous Performed By: #### C MP #### [address] [address] ALP [Catalytic activity/Vol] 42 U/L Normal 35-104 [facility] Comment on above: Order Comment: With differential. Is this specimen being sent to an external lab?->No Release to patient->Automatic 39728&Blood^\S\^Venous&Venous TIBC will not be run. Is this specimen being sent to an external lab?->No Release to patient->Automatic 43665&Blood^\S\^Venous&Venous Performed By: #### C MP #### [place] [address] ALT [Catalytic activity/Vol] 13 U/L Normal 0-31 [facility] Comment on above: Order Comment: With differential. Is this specimen being sent to an external lab?->No Release to patient->Automatic 58438&Blood^\S\^Venous&Venous TIBC will not be run. Is this specimen being sent to an external lab?->No Release to patient->Automatic 02029&Blood^\S\^Venous&Venous Performed By: #### C MP #### [place] [address] AST [Catalytic activity/Vol] 19 U/L Normal 0-31 [facility] Comment on above: Order Comment: With differential. Is this specimen being sent to an external lab?->No Release to patient->Automatic 04815&Blood^\S\^Venous&Venous TIBC will not be run. Is this specimen being sent to an external lab?->No Release to patient->Automatic 03110&Blood^\S\^Venous&Venous Performed By: #### C MP #### [address] [address] Bili,Total 0.7 mg/dl Normal 0.0-1.0 [facility] Comment on above: Order Comment: With differential. Is this specimen being sent to an external lab?->No Release to patient->Automatic 58622&Blood^\S\^Venous&Venous TIBC will not be run. Is this specimen being sent to an external lab?->No Release to patient->Automatic 86377&Blood^\S\^Venous&Venous Performed By: #### C MP #### [address] [id number] Calcium [Mass/Vol] 9.7 mg/dL Normal 7.6-11.0 [facility] Comment on above: Order Comment: With differential. Is this specimen being sent to an external lab?->No Release to patient->Automatic 51770&Blood^\S\^Venous&Venous TIBC will not be run. Is this specimen being sent to an external lab?->No Release to patient->Automatic 64245&Blood^\S\^Venous&Venous Performed By: #### C MP #### [place] [address] Chloride [Moles/Vol] 102 mmol/L Normal 96-108 [facility] Comment on above: Order Comment: With differential. Is this specimen being sent to an external lab?->No Release to patient->Automatic 61567&Blood^\S\^Venous&Venous TIBC will not be run. Is this specimen being sent to an external lab?->No Release to patient->Automatic 23788&Blood^\S\^Venous&Venous Performed By: #### C MP #### [place] [address] CO2 [Moles/Vol] 24.4 mmol/L Normal 22.0-29.0 [facility] Comment on above: Order Comment: With differential. Is this specimen being sent to an external lab?->No Release to patient->Automatic 69925&Blood^\S\^Venous&Venous TIBC will not be run. Is this specimen being sent to an external lab?->No Release to patient->Automatic 35839&Blood^\S\^Venous&Venous Performed By: #### C MP #### [place] [address] Creatinine [Mass/Vol] 0.74 mg/dL Normal 0.50-1.00 [facility] Comment on above: Order Comment: With differential. Is this specimen being sent to an external lab?->No Release to patient->Automatic 54393&Blood^\S\^Venous&Venous TIBC will not be run. Is this specimen being sent to an external lab?->No Release to patient->Automatic 54364&Blood^\S\^Venous&Venous Result Comment: Premature 0.3-1.0 mg/dL Performed By: #### C MP #### [place] [address] Glucose [Mass/Vol] 68 mg/dL Low 70-99 [facility] Comment on above: Order Comment: With differential. Is this specimen being sent to an external lab?->No Release to patient->Automatic 25637&Blood^\S\^Venous&Venous TIBC will not be run. Is this specimen being sent to an external lab?->No Release to patient->Automatic 00981&Blood^\S\^Venous&Venous Result Comment: Criteria for Diagnosis of Diabetes(Effective 12/26/10): Fasting specimen (no caloric intake for at least 8 hours). <100 mg/dl Normal 100-125 mg/dl Increased Risk for Diabetes >125 mg/dl Diagnostic for Diabetes Random Glucose (any time of day without regard to last meal). >=200 mg/dl plus Classic Symptoms of Diabetes Performed By: #### C MP #### [place] [address] Potassium [Moles/Vol] 4.8 mmol/L Normal 3.3-5.1 [facility] Comment on above: Order Comment: With differential. Is this specimen being sent to an external lab?->No Release to patient->Automatic 49767&Blood^\S\^Venous&Venous TIBC will not be run. Is this specimen being sent to an external lab?->No Release to patient->Automatic 36012&Blood^\S\^Venous&Venous Performed By: #### C MP #### [place] [address] Protein [Mass/Vol] 7.6 g/dL Normal 5.9-8.4 [facility] Comment on above: Order Comment: With differential. Is this specimen being sent to an external lab?->No Release to patient->Automatic 41423&Blood^\S\^Venous&Venous TIBC will not be run. Is this specimen being sent to an external lab?->No Release to patient->Automatic 77527&Blood^\S\^Venous&Venous Performed By: #### C MP #### [place] [address] Sodium [Moles/Vol] 139 mmol/L Normal 133-145 [facility] Comment on above: Order Comment: With differential. Is this specimen being sent to an external lab?->No Release to patient->Automatic 53506&Blood^\S\^Venous&Venous TIBC will not be run. Is this specimen being sent to an external lab?->No Release to patient->Automatic 61553&Blood^\S\^Venous&Venous Performed By: #### C MP #### [place] [address] Urea nitrogen [Mass/Vol] 16 mg/dL Normal 4-19 [facility] Comment on above: Order Comment: With differential. Is this specimen being sent to an external lab?->No Release to patient->Automatic 58279&Blood^\S\^Venous&Venous TIBC will not be run. Is this specimen being sent to an external lab?->No Release to patient->Automatic 56749&Blood^\S\^Venous&Venous Performed By: #### C MP #### [place] [address] Complete Blood Counton 06-23 Differential Complete Automated Normal [facility] Comment on above: Order Comment: With differential. Is this specimen being sent to an external lab?->No Release to patient->Automatic 23210&Blood^\S\^Venous&Venous TIBC will not be run. Is this specimen being sent to an external lab?->No Release to patient->Automatic 07417&Blood^\S\^Venous&Venous Performed By: #### C BC #### [place] [address] Basophils/100 WBC (Bld) 0.60 % Normal 0.00-1.00 [facility] Comment on above: Order Comment: With differential. Is this specimen being sent to an external lab?->No Release to patient->Automatic 67328&Blood^\S\^Venous&Venous TIBC will not be run. Is this specimen being sent to an external lab?->No Release to patient->Automatic 30896&Blood^\S\^Venous&Venous Performed By: #### C BC #### [place] [id number] Eosinophils/100 WBC (Bld) 1.40 % Normal 0.00-3.00 [facility] Comment on above: Order Comment: With differential. Is this specimen being sent to an external lab?->No Release to patient->Automatic 82956&Blood^\S\^Venous&Venous TIBC will not be run. Is this specimen being sent to an external lab?->No Release to patient->Automatic 60014&Blood^\S\^Venous&Venous Performed By: #### C BC #### [place] [address] Erythrocyte distribution width (RBC) [Ratio] 11.5 % Normal 0.0-14.4 [facility] Comment on above: Order Comment: With differential. Is this specimen being sent to an external lab?->No Release to patient->Automatic 75007&Blood^\S\^Venous&Venous TIBC will not be run. Is this specimen being sent to an external lab?->No Release to patient->Automatic 13838&Blood^\S\^Venous&Venous Performed By: #### C BC #### [place] [address] Hematocrit (Bld) [Volume fraction] 42.3 % Normal 36.0-44.0 [facility] Comment on above: Order Comment: With differential. Is this specimen being sent to an external lab?->No Release to patient->Automatic 12881&Blood^\S\^Venous&Venous TIBC will not be run. Is this specimen being sent to an external lab?->No Release to patient->Automatic 72822&Blood^\S\^Venous&Venous Performed By: #### C BC #### [place] [address] Hemoglobin (Bld) [Mass/Vol] 14.7 g/dL Normal 12.0-15.0 [facility] Comment on above: Order Comment: With differential. Is this specimen being sent to an external lab?->No Release to patient->Automatic 81144&Blood^\S\^Venous&Venous TIBC will not be run. Is this specimen being sent to an external lab?->No Release to patient->Automatic 07661&Blood^\S\^Venous&Venous Performed By: #### C BC #### [place] [address] Immature granulocytes/100 WBC (Bld) 0.20 % Normal [facility] Comment on above: Order Comment: With differential. Is this specimen being sent to an external lab?->No Release to patient->Automatic 94244&Blood^\S\^Venous&Venous TIBC will not be run. Is this specimen being sent to an external lab?->No Release to patient->Automatic 02878&Blood^\S\^Venous&Venous Result Comment: Tammie ture Granulocyte Percent includes promyelocytes, myelocytes, and metamyelocytes. IG% > 1.0 indicates a left shift is present. With automated differentials, bands are included in the neutrophil count and not in the Immature Granulocyte Percent. Performed By: #### C BC #### [place] [address] Lymphocytes/100 WBC (Bld) 30.5 % Normal 24.0-44.0 [facility] Comment on above: Order Comment: With differential. Is this specimen being sent to an external lab?->No Release to patient->Automatic 23454&Blood^\S\^Venous&Venous TIBC will not be run. Is this specimen being sent to an external lab?->No Release to patient->Automatic 42710&Blood^\S\^Venous&Venous Performed By: #### C BC #### [place] [id number] MCH (RBC) [Entitic mass] 30.0 pg Normal 26.0-34.0 [facility] Comment on above: Order Comment: With differential. Is this specimen being sent to an external lab?->No Release to patient->Automatic 49132&Blood^\S\^Venous&Venous TIBC will not be run. Is this specimen being sent to an external lab?->No Release to patient->Automatic 89451&Blood^\S\^Venous&Venous Performed By: #### C BC #### [place] [id number] MCHC 34.8 % Normal 31.0-37.0 [facility] Comment on above: Order Comment: With differential. Is this specimen being sent to an external lab?->No Release to patient->Automatic 46859&Blood^\S\^Venous&Venous TIBC will not be run. Is this specimen being sent to an external lab?->No Release to patient->Automatic 09390&Blood^\S\^Venous&Venous Performed By: #### C BC #### [place] [id number] MCV (RBC) [Entitic vol] 86.3 fL Normal 80.0-100.0 [facility] Comment on above: Order Comment: With differential. Is this specimen being sent to an external lab?->No Release to patient->Automatic 57859&Blood^\S\^Venous&Venous TIBC will not be run. Is this specimen being sent to an external lab?->No Release to patient->Automatic 33675&Blood^\S\^Venous&Venous Performed By: #### C BC #### [address] [id number] Monocytes/100 WBC (Bld) 8.70 % High 3.00-6.00 [facility] Comment on above: Order Comment: With differential. Is this specimen being sent to an external lab?->No Release to patient->Automatic 69305&Blood^\S\^Venous&Venous TIBC will not be run. Is this specimen being sent to an external lab?->No Release to patient->Automatic 07049&Blood^\S\^Venous&Venous Performed By: #### C BC #### [address] [address] Neutrophils (Bld) [#/Vol] 5.2 10*3/uL Normal 2.0-7.2 [facility] Comment on above: Order Comment: With differential. Is this specimen being sent to an external lab?->No Release to patient->Automatic 83052&Blood^\S\^Venous&Venous TIBC will not be run. Is this specimen being sent to an external lab?->No Release to patient->Automatic 23013&Blood^\S\^Venous&Venous Performed By: #### C BC #### [place] [address] Neutrophils/100 WBC (Bld) 58.6 % Normal 35.0-66.0 [facility] Comment on above: Order Comment: With differential. Is this specimen being sent to an external lab?->No Release to patient->Automatic 10693&Blood^\S\^Venous&Venous TIBC will not be run. Is this specimen being sent to an external lab?->No Release to patient->Automatic 83930&Blood^\S\^Venous&Venous Performed By: #### C BC #### [place] [address] Nucleated RBC/100 WBC (Bld) [Ratio] 0.0 % Normal -1.0-0.0 [facility] Comment on above: Order Comment: With differential. Is this specimen being sent to an external lab?->No Release to patient->Automatic 70230&Blood^\S\^Venous&Venous TIBC will not be run. Is this specimen being sent to an external lab?->No Release to patient->Automatic 09660&Blood^\S\^Venous&Venous Performed By: #### C BC #### [place] [address] Platelet mean volume (Bld) [Entitic vol] 10.7 fL Normal [facility] Comment on above: Order Comment: With differential. Is this specimen being sent to an external lab?->No Release to patient->Automatic 75634&Blood^\S\^Venous&Venous TIBC will not be run. Is this specimen being sent to an external lab?->No Release to patient->Automatic 68936&Blood^\S\^Venous&Venous Result Comment: MPV is platelet range and age dependent Performed By: #### C BC #### [address] [address] Platelets (Bld) [#/Vol] 285 10*3/uL Normal 150-450 [facility] Comment on above: Order Comment: With differential. Is this specimen being sent to an external lab?->No Release to patient->Automatic 29389&Blood^\S\^Venous&Venous TIBC will not be run. Is this specimen being sent to an external lab?->No Release to patient->Automatic 85132&Blood^\S\^Venous&Venous Performed By: #### C BC #### [address] [address] RBC 4.90 10E12/L Normal 4.00-4.90 [facility] Comment on above: Order Comment: With differential. Is this specimen being sent to an external lab?->No Release to patient->Automatic 13431&Blood^\S\^Venous&Venous TIBC will not be run. Is this specimen being sent to an external lab?->No Release to patient->Automatic 67925&Blood^\S\^Venous&Venous Performed By: #### C BC #### [address] [address] WBC (Bld) [#/Vol] 8.8 10*3/uL Normal 4.5-11.0 [facility] Comment on above: Order Comment: With differential. Is this specimen being sent to an external lab?->No Release to patient->Automatic 70690&Blood^\S\^Venous&Venous TIBC will not be run. Is this specimen being sent to an external lab?->No Release to patient->Automatic 56618&Blood^\S\^Venous&Venous Performed By: #### C BC #### [address] [address] Ferritinon 06-23-2021 Ferritin [Mass/Vol] 44 ng/mL Normal 10-291 [facility] Comment on above: Order Comment: With differential. Is this specimen being sent to an external lab?->No Release to patient->Automatic 58394&Blood^\S\^Venous&Venous TIBC will not be run. Is this specimen being sent to an external lab?->No Release to patient->Automatic 81075&Blood^\S\^Venous&Venous Performed By: #### F ERTN #### [address] [address] TSH with reflex T4FRon 06-23 TSH with reflex T4FR 2.171 uIU/mL Normal 0.350-5.500 [facility] Comment on above: Order Comment: With differential. Is this specimen being sent to an external lab?->No Release to patient->Automatic 52778&Blood^\S\^Venous&Venous TIBC will not be run. Is this specimen being sent to an external lab?->No Release to patient->Automatic 91175&Blood^\S\^Venous&Venous Performed By: #### T SHR #### [address] [address] Vitamin D 25 OHon 06-23-2021 25 OH Vitamin D 37 ng/mL Normal 30-100 [facility] Comment on above: Order Comment: With differential. Is this specimen being sent to an external lab?->No Release to patient->Automatic 64248&Blood^\S\^Venous&Venous TIBC will not be run. Is this specimen being sent to an external lab?->No Release to patient->Automatic 00977&Blood^\S\^Venous&Venous Result Comment: Refe rence ranges provided by [facility] are based on Endocrine Society Guidelines: Level Characterization <21 ng/mL Vitamin D deficiency 21-29 ng/mL Suboptimal Vitamin D status 30-100 ng/mL Optimal Vitamin D status >100 ng/mL Potentially toxic Vitamin D effects NOTE: New Reference Ranges effective 18 Performed By: #### V 25DH #### [facility] [address] [address] Progress Noteon 06-22-2021 [employer] Authentication Interface Message Text Patient ID: Luz [...] Line *Present Clear Background *Present Lot Number [id number] POCT urinalysis dipstick Collection Time: 06/22/21 5:51 PM Result Value Ref Range POCT, Leukocytes, Urine Negative Negative POCT Nitrite, Urine Negative Negative POCT Protein, Urine Trace Negative - Trace mg/dl POCT Urine pH 6.0 5.0 - 8.0 pH POCT Blood, Urine Negative Negative POCT Urine Specific [place] 1.030 1.005 - 1.030 POCT Ketones, Urine Negative Negative mg/dl POCT Glucose, Urine Negative Negative mg/dl Normal [facility] Progress Noteon 02-15-2021 [employer]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 Source: THRSW Collected: 02/15/21 13:17 Site: Throat swab Received : 02/15/21 20:06 Strep Culture FINAL 02/17/21 07:53 No Beta hemolytic Streptococci isolated. 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 Normal [facility] [employer] Driver Authentication Interface Message Text Luz Hinojosa is [...] high (like other illegal drugs, prescription or hlfo-fus-sdhibou medications, and things that you sniff, marte, or vape)? Put 0 if none.: 0 4. Use any tobacco or nicotine products (for example, cigarettes, e-cigarettes, hookahs or smokeless tobacco)?: 0 5. Have you ever ridden in a CAR driven by someone (including yourself) who was high or had been using alcohol or drugs?: No Electronically signed by: MYKE Rahman Normal [facility] EMERGENCY REPORTon 9 EMERGENCY REPORT [facility] EMERGENCY ROOM REPORT NAME ACCOUNT SEX AGE ADMIT DISCHARGE PT MED. RECORD# NUMBER DATE DATE TYPE ASHISH, [id number] F 18 04/01/19 04/01/19 Maurisio Alves [id number] ROOM: ER DATE OF : 2000 DICTATING [...] Pharynx is symmetric without any RPA, PPA, MACHINE II COREMAKER. There is no significant dental problems. She [...] ambulatory from the emergency room. Follow up [facility]. Return p.r.n. as necessary. In general she appears to be nontoxic and she is pleasant Page 1 of 2 LUZ HINOJOSA Emergency Room Report and alert and oriented. DIAGNOSIS: Upper respiratory infection, sinus congestion and left otitis media. Dictated By: Sherri Lisa DO 04/02/19 04:52 JOB #: [id number] Transcribed By: yesenia 04/02/19 06:23 Electronically signed by: E-SIGN SHERRI LISA DO 04/07/19 21:31 Page 2 of 2 LUZ HINOJOSA Emergency Room Report Normal [facility] XR Chest 2 Viewson 8 XR Chest 2 Views Exam Date/Time: 04/01/2018 23:14 EDT Reason for Exam: Cough Report STUDY: XR Chest 2 Views; 04/01/2018 11:14 pm INDICATION: Cough. COMPARISON: 09/12/2017 ACCESSION NUMBER(S): [id number] ORDERING CLINICIAN: Sherri Payton FINDINGS: CARDIOMEDIASTINAL SILHOUETTE: Cardiomediastinal silhouette is normal in size and configuration. LUNGS: No focal consolidation, effusion, edema, or pneumothorax. ABDOMEN: No remarkable upper abdominal findings. BONES: No acute osseous changes. IMPRESSION: 1. No evidence of acute cardiopulmonary process. FINAL REPORT Dictated: 04/02/2018 0:02 am Rene Toth MD Signed (Electronic Signature): 04/02/2018 0:02 am Signed by: Rene Toth MD Technologist: [facility] Vital Signs Date Time Vital Sign Value Performing Clinician Facility 09-23-2024 11:54-0500 Blood Pressure Location Tali Zarate [facility] 09-23-2024 11:54-0500 Body temperature 98.24 [degF] Tali Zarate [facility] 09-23-2024 11:54-0500 Diastolic blood pressure 76 mm[Hg] Tali Zarate [facility] 09-23-2024 11:54-0500 Heart rate 69 /min Tali Zarate [facility] 09-23-2024 11:54-0500 Respiratory rate 18 /min Tali Zarate [facility] 09-23-2024 11:54-0500 SaO2% (BldA) [Mass fraction] 99 % Tali Zarate [facility] 09-23-2024 11:54-0500 Systolic blood pressure 122 mm[Hg] Tali Zarate [facility] 06-25-2024 07:39-0500 Body temperature 99.1 [degF] Leatha Samayoa MD Work Phone: [facility] 06-25-2024 07:39-0500 Diastolic blood pressure 64 mm[Hg] Leatha Samayoa MD Work Phone: [facility] 06-25-2024 07:39-0500 Heart rate 90 /min Leatha Samayoa MD Work Phone: [facility] 06-25-2024 07:39-0500 Respiratory rate 16 /min Leatha Samayoa MD Work Phone: [facility] 06-25-2024 07:39-0500 SaO2% (BldA) [Mass fraction] 100 % Leatha Samayoa MD Work Phone: [facility] 06-25-2024 07:39-0500 Systolic blood pressure 112 mm[Hg] Leatha Samayoa MD Work Phone: [facility] 06-22-2024 18:49-0500 Body height 165.1 cm Leatha Samayoa MD Work Phone: [facility] 06-22-2024 18:49-0500 Body mass index (BMI) [Ratio] 23.8 kg/m2 Leatha Samayoa MD Work Phone: [facility] 06-22-2024 18:49-0500 Body weight 64.86 kg Leatha Samayoa MD Work Phone: [facility] 06-22-2024 16:45-0500 Diastolic blood pressure 64 mm[Hg] Anika Bob [facility] 06-22-2024 16:45-0500 Heart rate 124 /min Anika Bob [facility] 06-22-2024 16:45-0500 Hourly Rounding Anika Bob [facility] Comment on above: Result Comment: [facility], PT ON AMBULANCE BED WITH [facility] FOR DEPARTURE 06-22-2024 16:45-0500 Mean blood pressure 79 mm[Hg] Anika Bob [facility] 06-22-2024 16:45-0500 SaO2% (BldA) [Mass fraction] 99 % Anika Bob [facility] 06-22-2024 16:45-0500 Systolic blood pressure 110 mm[Hg] Anika Bob [facility] 06-22-2024 16:30-0500 Diastolic blood pressure 68 mm[Hg] Anika Bob [facility] 06-22-2024 16:30-0500 Heart rate 104 /min Anika Bob [facility] 06-22-2024 16:30-0500 Mean blood pressure 80 mm[Hg] Anika Bob [facility] 06-22-2024 16:30-0500 SaO2% (BldA) [Mass fraction] 99 % Anika Bob [facility] 06-22-2024 16:30-0500 Systolic blood pressure 105 mm[Hg] Anika Bob [facility] 06-22-2024 16:15-0500 Diastolic blood pressure 68 mm[Hg] Anika Bob [facility] 06-22-2024 16:15-0500 Heart rate 101 /min Anika Bob [facility] 06-22-2024 16:15-0500 Hourly Rounding Anika Bob [facility] 06-22-2024 16:15-0500 Mean blood pressure 82 mm[Hg] Anika Bob [facility] 06-22-2024 16:15-0500 SaO2% (BldA) [Mass fraction] 98 % Anika Bob [facility] 06-22-2024 16:15-0500 Systolic blood pressure 109 mm[Hg] Anika Bob [facility] 06-22-2024 15:45-0500 Blood Pressure Location Anika Bob [facility] 06-22-2024 15:45-0500 Hourly Rounding Anika Bob [facility] 06-22-2024 15:35-0500 Blood Pressure Location Anika Bob [facility] 06-22-2024 15:25-0500 Blood Pressure Location Anika Bob [facility] 06-22-2024 13:45-0500 Body temperature 98.24 [degF] Anika Bob [facility] 06-22-2024 13:45-0500 Respiratory rate 18 /min Anika Bob [facility] 06-22-2024 10:00-0500 Body temperature 98.06 [degF] Anika Bob [facility] 06-21-2024 21:02-0500 Hourly Rounding Anika Bob [facility] Comment on above: Result Comment: Pt d/c'd to private vehi franc with all belongings. Denies pain and needs. 06-21-2024 20:45-0500 Hourly Rounding Anika Bob [facility] Comment on above: Result Comment: D/c instructions explain ed to pt and s.o. Both verbalize understanding and pt signs. IV d/c'd. Pt tolerated without complaint. Pt up to bathroom to change. No c/o pain. Denies needs. 06-21-2024 20:30-0500 Hourly Rounding Anika Bob [facility] Comment on above: Result Comment: Pt resting in bed. Denie s pain and needs. Call light in reach. Will continue to monitor. 06-21-2024 19:15-0500 Blood Pressure Location Anika Bob [facility] 06-21-2024 19:15-0500 Body temperature 98.06 [degF] Anika Bob [facility] 06-21-2024 19:15-0500 Diastolic blood pressure 66 mm[Hg] Anika Bob [facility] 06-21-2024 19:15-0500 Heart rate 110 /min Anika Bob [facility] 06-21-2024 19:15-0500 Mean blood pressure 85 mm[Hg] Anika Bob [facility] 06-21-2024 19:15-0500 Respiratory rate 18 /min Anika Bob [facility] 06-21-2024 19:15-0500 Systolic blood pressure 123 mm[Hg] Anika Bob [facility] 06-21-2024 17:00-0500 Body temperature 97.88 [degF] Anika Bob [facility] 06-21-2024 17:00-0500 Diastolic blood pressure 63 mm[Hg] Anika Bob [facility] 06-21-2024 17:00-0500 Heart rate 111 /min Anika Bob [facility] 06-21-2024 17:00-0500 Mean blood pressure 81 mm[Hg] Anika Bob [facility] 06-21-2024 17:00-0500 Systolic blood pressure 117 mm[Hg] Anika Bob [facility] 06-05-2024 14:15-0500 Hourly Rounding Anika Bob [facility] Comment on above: Result Comment: escorted off unit via eelchair by OB staff to private car 06-05-2024 07:30-0500 Blood Pressure Location Anika Bob [facility] 06-05-2024 07:30-0500 Body temperature 98.06 [degF] Anika Bob [facility] 06-05-2024 07:30-0500 Diastolic blood pressure 66 mm[Hg] Anika Bob [facility] 06-05-2024 07:30-0500 Heart rate 112 /min Anika Bob [facility] 06-05-2024 07:30-0500 Mean blood pressure 85 mm[Hg] Anika Bob [facility] 06-05-2024 07:30-0500 Respiratory rate 18 /min Anika Bob [facility] 06-05-2024 07:30-0500 Systolic blood pressure 122 mm[Hg] Anika Paulino [facility] 06-05-2024 06:15-0500 Hourly Rounding Anika Bob [facility] Comment on above: Result Comment: appears sleeping soundly , left undisturbed 06-05-2024 04:30-0500 Hourly Rounding Anika Bob [facility] Comment on above: Result Comment: awakens to rounding. ass issted up to BR. denies further needs/pain 06-04-2024 22:15-0500 Blood Pressure Location Anika Bob [facility] 06-04-2024 22:15-0500 Diastolic blood pressure 65 mm[Hg] Anika Bob [facility] 06-04-2024 22:15-0500 Heart rate 79 /min Anika oBb [facility] 06-04-2024 22:15-0500 Mean blood pressure 84 mm[Hg] Anika Bob [facility] 06-04-2024 22:15-0500 Respiratory rate 18 /min Anika Bob [facility] 06-04-2024 22:15-0500 Systolic blood pressure 122 mm[Hg] Anika Bob [facility] 06-04-2024 22:00-0500 Body temperature 98.24 [degF] Anika Bob [facility] 06-04-2024 15:54-0500 Diastolic blood pressure 56 mm[Hg] Anika Bob [facility] 06-04-2024 15:54-0500 Heart rate 113 /min Anika Bob [facility] 06-04-2024 15:54-0500 Mean blood pressure 84 mm[Hg] Anika Bob [facility] 06-04-2024 15:54-0500 Respiratory rate 18 /min Anika Bob [facility] 06-04-2024 15:54-0500 Systolic blood pressure 141 mm[Hg] Anika Bob [facility] 06-04-2024 07:20-0500 Body temperature 97.7 [degF] Anika Bob [facility] 06-04-2024 07:20-0500 Heart rate 130 /min Anika Bob [facility] 06-04-2024 07:20-0500 SaO2% (BldA) [Mass fraction] 99 % Anika Bob [facility] 06-04-2024 05:49-0500 Blood Pressure Location Anika Bob [facility] 05-06-2024 14:58-0400 Body height 165.1 cm Jordyn Thakur [employer] Work Phone: [facility] 05-06-2024 14:58-0400 Body mass index (BMI) [Ratio] 19.8 kg/m2 Jordyn Thakur [employer] Work Phone: [facility] 05-06-2024 14:58-0400 Body weight 53.98 kg Jordyn Thakur [employer]ICE [employer] Work Phone: [facility] 08-21-2023 14:36-0500 Body height 165.1 cm Anika Richardson MD Work Phone: [facility] 08-21-2023 14:36-0500 Body mass index (BMI) [Ratio] 19.87 kg/m2 Anika Richardson MD Work Phone: [facility] 08-21-2023 14:36-0500 Body weight 54.16 kg Anika Richardson MD Work Phone: [facility] 08-21-2023 14:36-0500 Diastolic blood pressure 70 mm[Hg] Anika Richardson MD Work Phone: [facility] 08-21-2023 14:36-0500 Systolic blood pressure 116 mm[Hg] Anika Richardson MD Work Phone: [facility] 06-19-2023 17:27-0500 SaO2% (BldA) [Mass fraction] 98 % Jordyn Thakur [employer]ICE [employer] Work Phone: [facility] 06-19-2023 17:22-0500 Body height 165.1 cm Jordyn Thakur [employer]ICE [employer] Work Phone: [facility] 06-19-2023 17:22-0500 Body mass index (BMI) [Ratio] 19.64 kg/m2 Jordyn Thakur [employer] Work Phone: [facility] 06-19-2023 17:22-0500 Body temperature 98.2 [degF] Jordyn Thakur [employer]ICE [employer] Work Phone: [facility] 06-19-2023 17:22-0500 Body weight 53.52 kg Jordyn Thakur [employer]ICE [employer] Work Phone: [facility] 06-19-2023 17:22-0500 Diastolic blood pressure 81 mm[Hg] Jordyn Thakur [employer] Work Phone: [facility] 06-19-2023 17:22-0500 Heart rate 98 /min Jordyn Thakur [employer] Work Phone: [facility] 06-19-2023 17:22-0500 Respiratory rate 16 /min Jordyn Thakur [employer] Work Phone: [facility] 06-19-2023 17:22-0500 Systolic blood pressure 124 mm[Hg] Jordyn Thakur [employer] Work Phone: [facility] 05-18-2023 10:33-0400 Body height 165.1 cm Jordyn Thakur [employer]ICE [employer] Work Phone: [facility] 05-18-2023 10:33-0400 Body mass index (BMI) [Ratio] 19.64 kg/m2 Jordyn Thakur [employer] Work Phone: [facility] 05-18-2023 10:33-0400 Body weight 53.52 kg Jordyn Thakur [employer]ICE [employer] Work Phone: [facility] 05-18-2023 10:33-0400 Diastolic blood pressure 74 mm[Hg] Jordyn Thakur [employer] Work Phone: [facility] 05-18-2023 10:33-0400 Heart rate 98 /min Jordyn Thakur [employer] Work Phone: [facility] 05-18-2023 10:33-0400 SaO2% (BldA) [Mass fraction] 99 % Jordyn Thakur [employer] Work Phone: 9(347)852-7[address] [place] [address] 05-18-2023 10:33-0400 Systolic blood pressure 107 mm[Hg] Jordyn Thakur [employer] Work Phone: [facility] 04-23-2023 09:48-0400 Body height 165.1 cm Kemi Echevarria MD Work Phone: [facility] 04-23-2023 09:48-0400 Body mass index (BMI) [Ratio] 19.64 kg/m2 Kemi Echevarria MD Work Phone: [facility] 04-23-2023 09:48-0400 Body weight 53.52 kg Kemi Echevarria MD Work Phone: [facility] 04-23-2023 09:48-0400 Diastolic blood pressure 60 mm[Hg] Kemi Echevarria MD Work Phone: 3(274)[phone] [place] [address] 04-23-2023 09:48-0400 Heart rate 125 /min Kemi Echevarria MD Work Phone: 1(042)616-499237 [place] [address] 04-23-2023 09:48-0400 SaO2% (BldA) [Mass fraction] 99 % Kemi Echevarria MD Work Phone: [facility] 04-23-2023 09:48-0400 Systolic blood pressure 120 mm[Hg] Kemi Echevarria MD Work Phone: [facility] 04-13-2023 17:00-0400 Diastolic blood pressure 88 mm[Hg] Page Josy Other Phone: [facility] 04-13-2023 17:00-0400 Heart rate 83 /min Page Josy Other Phone: [facility] 04-13-2023 17:00-0400 Respiratory rate 18 /min Page Josy Other Phone: [facility] 04-13-2023 17:00-0400 SaO2% (BldA) [Mass fraction] 100 % Page Josy Other Phone: [facility] 04-13-2023 17:00-0400 Systolic blood pressure 128 mm[Hg] Page Josy Other Phone: [facility] 04-13-2023 15:13-0400 Body temperature 98.06 [degF] Page Josy Other Phone: [facility] 04-13-2023 15:13-0400 Body weight 55 kg Page Josy Other Phone: [facility] 04-11-2023 10:00-0400 Body temperature 97.88 [degF] Page Josy Other Phone: [facility] 04-11-2023 10:00-0400 Diastolic blood pressure 84 mm[Hg] Page Josy Other Phone: [facility] 04-11-2023 10:00-0400 Heart rate 81 /min Page Josy Other Phone: [facility] 04-11-2023 10:00-0400 Respiratory rate 17 /min Page Josy Other Phone: [facility] 04-11-2023 10:00-0400 SaO2% (BldA) [Mass fraction] 99 % Page Josy Other Phone: [facility] 04-11-2023 10:00-0400 Systolic blood pressure 122 mm[Hg] Page Josy Other Phone: [facility] 11-06-2022 20:48-0400 Body height 165.1 cm Page Josy Other Phone: [facility] 11-06-2022 20:48-0400 Body temperature 97.7 [degF] Page Josy Other Phone: [facility] 11-06-2022 20:48-0400 Body weight 54.5 kg Page Josy Other Phone: [facility] 11-06-2022 20:48-0400 Diastolic blood pressure 79 mm[Hg] Page Josy Other Phone: [facility] 11-06-2022 20:48-0400 Heart rate 92 /min Page Josy Other Phone: [facility] 11-06-2022 20:48-0400 Respiratory rate 18 /min Page Josy Other Phone: [facility] 11-06-2022 20:48-0400 SaO2% (BldA) [Mass fraction] 97 % Page Josy Other Phone: [facility] 11-06-2022 20:48-0400 Systolic blood pressure 133 mm[Hg] Page Josy Other Phone: [facility] 08-24-2022 18:30-0500 Diastolic blood pressure 105 mm[Hg] Page Josy Other Phone: [facility] 08-24-2022 18:30-0500 Heart rate 88 /min Page Josy Other Phone: [facility] 08-24-2022 18:30-0500 Respiratory rate 15 /min Page Josy Other Phone: [facility] 08-24-2022 18:30-0500 SaO2% (BldA) [Mass fraction] 100 % Page Josy Other Phone: [facility] 08-24-2022 18:30-0500 Systolic blood pressure 129 mm[Hg] Page Josy Other Phone: [facility] 08-24-2022 16:15-0500 Body height 165.1 cm Page Josy Other Phone: [facility] 08-24-2022 16:15-0500 Body temperature 97.7 [degF] Page Josy Other Phone: [facility] 08-24-2022 16:15-0500 Body weight 54.5 kg Page Josy Other Phone: [facility] 08-03-2022 11:02-0500 Body height 165.1 cm Jordyn Thakur Work Phone: [facility] Work Phone: 08-03-2022 11:02-0500 Body mass index (BMI) [Ratio] 21.2 kg/m2 Jordyn Thakur Work Phone: [facility] Work Phone: 08-03-2022 11:02-0500 Body surface area Derived from formula 1.63 m2 Jordyn Thakur Work Phone: [facility] Work Phone: 08-03-2022 11:02-0500 Body weight 57.78 kg Jordyn Gomez Thakur Work Phone: [facility] Work Phone: 08-03-2022 11:02-0500 Diastolic blood pressure 74 mm[Hg] Jordyn Jason Thakur Work Phone: [facility] Work Phone: 08-03-2022 11:02-0500 Heart rate 88 /min Jordyn Jason Thakur Work Phone: [facility] Work Phone: 08-03-2022 11:02-0500 Systolic blood pressure 116 mm[Hg] Jordyn Gomez Thakur Work Phone: [facility] Work Phone: 06-14-2022 15:28-0500 Body height 165.1 cm Jordyn Gomez Thakur Work Phone: [facility] Work Phone: 06-14-2022 15:28-0500 Body mass index (BMI) [Ratio] 19.64 kg/m2 Jordyn Jason Thakur Work Phone: [facility] Work Phone: 06-14-2022 15:28-0500 Body surface area Derived from formula 1.58 m2 Jordyn Gomez Ofe Work Phone: [facility] Work Phone: 06-14-2022 15:28-0500 Body weight 53.52 kg Jordyn Gomez Thakur Work Phone: [facility] Work Phone: 06-14-2022 15:28-0500 Diastolic blood pressure 82 mm[Hg] Jordyn Gomez Thakur Work Phone: [facility] Work Phone: 06-14-2022 15:28-0500 Heart rate 101 /min Jordyn Gomez Thakur Work Phone: [facility] Work Phone: 06-14-2022 15:28-0500 Systolic blood pressure 118 mm[Hg] Jordyn Gonzalezley Work Phone: [facility] Work Phone: 06-06-2022 14:14-0500 Body height 165.1 cm Jordyn Nguyễnkins Work Phone: [facility] Work Phone: 06-06-2022 14:14-0500 Body mass index (BMI) [Ratio] 19.64 kg/m2 Jordyn Nguyễnkins Work Phone: [facility] Work Phone: 06-06-2022 14:14-0500 Body surface area Derived from formula 1.58 m2 Jordyn Nguyễnkins Work Phone: [facility] Work Phone: 06-06-2022 14:14-0500 Body weight 53.52 kg Jordyn Nguyễnkins Work Phone: [facility] Work Phone: 06-06-2022 14:14-0500 Diastolic blood pressure 70 mm[Hg] Jordyn Nguyễnkins Work Phone: [facility] Work Phone: 06-06-2022 14:14-0500 Heart rate 108 /min Jordyn Nguyễnkins Work Phone: [facility] Work Phone: 06-06-2022 14:14-0500 SaO2% (BldA) [Mass fraction] 99 % Jordyn Nguyễnkins Work Phone: [facility] Work Phone: 06-06-2022 14:14-0500 Systolic blood pressure 112 mm[Hg] Jordyn Ramirez Work Phone: [facility] Work Phone: 05-02-2022 08:59-0400 Body height 165.1 cm Jordyn D Ramirez Work Phone: [facility] Work Phone: 05-02-2022 08:59-0400 Body mass index (BMI) [Ratio] 17.81 kg/m2 Jordyn D Ramirez Work Phone: [facility] Work Phone: 05-02-2022 08:59-0400 Body surface area Derived from formula 1.52 m2 Jordyn D Ramirez Work Phone: [facility] Work Phone: 05-02-2022 08:59-0400 Body weight 48.53 kg Jordyn D Ramirez Work Phone: [facility] Work Phone: 05-02-2022 08:59-0400 Diastolic blood pressure 68 mm[Hg] Jrodyn D Ramirez Work Phone: [facility] Work Phone: 05-02-2022 08:59-0400 Heart rate 118 /min Jordyn D Ramirez Work Phone: [facility] Work Phone: 05-02-2022 08:59-0400 Systolic blood pressure 102 mm[Hg] Jordyn D Ramirez Work Phone: [facility] Work Phone: 03-03-2022 14:28-0400 Body height 165.1 cm Jordyn D Ramirez Work Phone: [facility] Work Phone: 03-03-2022 14:28-0400 Body mass index (BMI) [Ratio] 18.47 kg/m2 Jordyn D Ramirez Work Phone: [facility] Work Phone: 03-03-2022 14:28-0400 Body surface area Derived from formula 1.54 m2 Jordyn D Ramirez Work Phone: [facility] Work Phone: 03-03-2022 14:28-0400 Body weight 50.35 kg Jordyn D Ramirez Work Phone: [facility] Work Phone: 03-03-2022 14:28-0400 Diastolic blood pressure 72 mm[Hg] Jordyn D Ramirez Work Phone: [facility] Work Phone: 03-03-2022 14:28-0400 Heart rate 84 /min Jordyn D Ramirez Work Phone: [facility] Work Phone: 03-03-2022 14:28-0400 Systolic blood pressure 110 mm[Hg] Jordyn D Ramirez Work Phone: [facility] Work Phone: 01-04-2021 13:50-0400 Diastolic blood pressure 70 mm[Hg] Page Josy Other Phone: [facility] 01-04-2021 13:50-0400 Diastolic blood pressure 73 mm[Hg] Page Josy Other Phone: [facility] 01-04-2021 13:50-0400 Diastolic blood pressure 77 mm[Hg] Page Josy Other Phone: [facility] 01-04-2021 13:50-0400 Heart rate 79 /min Page Josy Other Phone: [facility] 01-04-2021 13:50-0400 Heart rate 77 /min Page Josy Other Phone: [facility] 01-04-2021 13:50-0400 Heart rate 89 /min Page Josy Other Phone: [facility] 01-04-2021 13:50-0400 Systolic blood pressure 104 mm[Hg] Page Josy Other Phone: [facility] 01-04-2021 13:50-0400 Systolic blood pressure 113 mm[Hg] Page Josy Other Phone: [facility] 01-04-2021 13:38-0400 Respiratory rate 20 /min Page Ferris Other Phone: [facility] 01-04-2021 11:45-0400 Body height 165.1 cm Page Josy Other Phone: [facility] 01-04-2021 11:45-0400 Body temperature 98.06 [degF] Page Lopezrdle Other Phone: [facility] 01-04-2021 11:45-0400 Body weight 60.5 kg Page Josy Other Phone: [facility] Division 01-04-2021 11:45-0400 SaO2% (BldA) [Mass fraction] 98 % Page Josy Other Phone: [facility] Encounters Encounter Date Encounter Type Care Provider Facility Start: 10-10-2024 End: 10-10-2024 ambulatory Minesh Kemp Facility:[facility] Start: 09-23-2024 End: 09-23-2024 ambulatory Tali Zarate Facility:[facility] Start: 09-23-2024 End: 09-23-2024 Patient encounter procedure Tali Zarate [facility] Start: 06-22-2024 End: 06-25-2024 Evaluation and management of inpatient Leatha Samayoa MD Work Phone: [facility] Start: 06-22-2024 End: 06-22-2024 ambulatory Anika Bob Facility:[facility] Start: 06-22-2024 End: 06-22-2024 Patient encounter procedure Anika Bob [facility] Start: 06-21-2024 End: 06-21-2024 ambulatory Anika Bob Facility:[facility] Start: 06-21-2024 End: 06-21-2024 Patient encounter procedure Anika Gomez Paulino [facility] Start: 06-18-2024 End: 06-18-2024 ambulatory Anika Gomez Paulino Facility:[facility] Start: 06-18-2024 End: 06-18-2024 Patient encounter procedure Anika Gomez Paulino [facility] Start: 06-13-2024 End: 06-13-2024 ambulatory Anika Jason Bob Facility:[facility] Start: 06-13-2024 End: 06-13-2024 Patient encounter procedure Anika Gomez Pualino [facility] Start: 06-03-2024 End: 06-05-2024 ambulatory Anika Gomez Paulino Facility:[facility] Start: 06-03-2024 End: 06-05-2024 Observation Anika Gomez Paulino [facility] Start: 05-06-2024 End: 05-06-2024 Office outpatient visit 25 minutes Jordyn Thakur OFFICE HELPER-CHEESE COOK Work Phone: [facility] Comment on above: Sore throat (Primary Dx) Start: 05-06-2024 End: 05-06-2024 ambulatory [facility] Jason [facility] Ambulatory Start: 02-04-2024 End: 02-04-2024 ambulatory Anika Gomze Paulino Facility:[facility] Start: 02-04-2024 End: 02-04-2024 Lab Drop off Anika Gomez Paulino [facility] Start: 01-09-2024 End: 01-09-2024 ambulatory Anika Gomez Paulino Facility:[facility] Start: 01-09-2024 End: 01-09-2024 Patient encounter procedure Anika Bob [facility] Start: 10-10-2023 End: 10-10-2023 Office outpatient visit 15 minutes Jordyn Jason Thakur OFFICE HELPER-CHEESE COOK Work Phone: [facility] Comment on above: Generalized anxiety disorder with panic attacks Start: 10-10-2023 End: 10-10-2023 ambulatory [facility] Ambulatory Start: 09-22-2023 End: 09-22-2023 ambulatory Anika Jason Paulino Facility:[facility] Start: 09-22-2023 End: 09-22-2023 Patient encounter procedure Anika Bob [facility] Start: 09-19-2023 End: 09-19-2023 Office outpatient visit 25 minutes Jordyn Thakur OFFICE HELPER-CHEESE [employer]OOK Work Phone: [facility] Comment on above: Nausea (Primary Dx); Nasal congestion; Acute non-recurrent sinusitis, unspecified location Start: 09-19-2023 End: 09-19-2023 ambulatory [facility] Amb[facility] Start: 09-12-2023 End: 09-12-2023 Office outpatient visit 25 minutes Jordyn Thakur OFFICE HELPER-CHEESE COOK Work Phone: [facility] Comment on above: Generalized anxiety disorder with panic attacks (Primary Dx) Start: 09-12-2023 End: 09-12-2023 ambulatory [facility] Start: 08-27-2023 End: 08-28-2023 ambulatory [facility] Start: 08-21-2023 End: 08-21-2023 Office outpatient new 30 minutes Anika Richardson MD Work Phone: [facility] Comment on above: Family planning coun seling (Primary Dx) Start: 08-21-2023 End: 08-21-2023 ambulatory ANIKA Godinez [facility]ulatory Start: 07-13-2023 End: 07-13-2023 ambulatory [facility] Amb[facility] Start: 06-19-2023 End: 06-19-2023 Emergency department patient visit JORDYN Jason [facility] Start: 06-19-2023 End: 06-19-2023 Emergency department patient visit Jordyn Thakur OFFICE HELPER-CHEESE COOK Work Phone: [facility] Emergency Medicine Comment on above: Urinary tract infect ion without hematuria, site unspecified (Primary Dx) Start: 05-18-2023 End: 05-18-2023 Office outpatient visit 25 minutes oJrdyn Thakur OFFICE HELPER-CHEESE COOK Work Phone: [facility] Comment on above: Urinary frequency (P rimary Dx); Urinary tract infection with hematuria, site unspecified; Generalized anxiety disorder with panic attacks; Gastroesophageal reflux disease without esophagitis Start: 05-18-2023 End: 05-18-2023 ambulatory JORDYN Gomez [facility] Ambulatory Start: 04-23-2023 End: 04-23-2023 Office outpatient visit 25 minutes Kemi Echevarria MD Work Phone: [facility] Comment on above: H/O urinary tract in fection (Primary Dx); Generalized anxiety disorder with panic attacks Start: 04-13-2023 End: 04-13-2023 Emergency department patient visit Chris Blue [facility] Emergency 14 Start: 04-09-2023 End: 04-11-2023 ambulatory Ms. Jordyn Thakur Facility:[id number] Start: 04-09-2023 End: 04-11-2023 Evaluation and management of inpatient Bautista Villanueva [facility] 3 Med [facility]urg [facility] 310 01 Start: 03-27-2023 End: 03-27-2023 Emergency department patient visit JORDYN RAMIREZ [facility] Start: 11-06-2022 End: 11-06-2022 Emergency department patient visit Alie Flor [facility] Emergency 11 Start: 10-20-2022 End: 10-20-2022 Office outpatient visit 15 minutes Jordyn Thakur OFFICE HELPER-CHEESE [employer]OOK Work Phone: [facility] Comment on above: Vaginal yeast infect ion (Primary Dx) Start: 10-03-2022 End: 10-03-2022 Office outpatient visit 15 minutes Dominick Lewis MD Work Phone: [facility] Comment on above: Pharyngitis, unspeci fied etiology (Primary Dx) Start: 10-02-2022 End: 10-02-2022 Emergency department patient visit JORDYN RAMIREZ [facility] Start: 08-31-2022 ambulatory CHEESE COOK JORDYN Sue acility:[id number] Start: 08-24-2022 End: 08-24-2022 Emergency department patient visit Tyrell Pelaez [facility] Emergency Start: 08-03-2022 Office outpatient vi sit 25 minutes Jordyn Thakur Work Phone: [facility] Work Phone: Start: 08-03-2022 ambulatory [employer]ESE [employer]OOK JORDYN Sue acility:[id number] Start: 06-14-2022 Office outpatient vi sit 15 minutes Jordyn Thakur Work Phone: [facility] Work Phone: Start: 06-14-2022 ambulatory [employer]OOK JORDYN Sue acility:[id number] Start: 06-07-2022 End: 06-11-2022 ambulatory [facility] Ambulatory Start: 06-06-2022 ambulatory [employer]OOK JORDYN Sue acility:[id number] Start: 06-06-2022 Office outpatient vi sit 10 minutes Jordyn Ramirez Work Phone: [facility] Work Phone: Start: 05-23-[address] Kemi Echevarria Fac ility:[id number] Start: 05-10-2022 End: 05-14-2022 ambulatory [facility] Ambulatory Start: 05-02-2022 Office outpatient vi sit 25 minutes Jordyn Ramirez Work Phone: [facility] Work Phone: Start: 05-02-2022 ambulatory [employer]ESE [employer]OOK JORDYN Sue acility:[id number] Start: 04-25-2022 End: 04-25-2022 ambulatory [facility] Ambulatory Start: 04-25-2022 End: 04-25-2022 Office outpatient new 20 minutes Joselin Noyola CNP Work Phone: [facility] Comment on above: Closed nondisplaced fracture of distal phalanx of left middle finger, initial encounter (Primary Dx) Start: 04-24-2022 End: 04-24-2022 Emergency department patient visit STANLEY QUILES [facility] Start: 03-15-2022 Chart Update Jordyn Ramirez Work Phone: [facility] Work Phone: Start: 03-03-2022 Office outpatient ne w 45 minutes Jordyn Ramirez Work Phone: [facility] Work Phone: Start: 01-04-2021 End: 01-04-2021 Emergency department patient visit Alie Rodriguez [facility] Emergency 13 Start: 04-01-2019 End: 04-01-2019 Emergency department patient visit DILIA Gupta [facility] Start: 10-27-2018 End: 10-27-2018 Emergency department patient visit Page Joselyn Josy Facility:[facility] Start: 04-01-2018 End: 04-02-2018 Emergency department patient visit Bly Joselyn [facility] Facility:[facility] Start: 01-24-2018 End: 01-24-2018 Emergency department patient visit Page Joselyn [facility] Facility:[facility] Procedures Date Procedure Procedure Detail Performing Clinician Start: 06-23-2024 Iadna streptococcus group b amplified probe tq Nathalia Santos MD Work Phone: Start: 06-23-2024 Blood count complete automated Nathalia Santos MD Work Phone: Start: 06-23-2024 Us preg uterus w/det ail natasha 1st gestation Malu Adams MD Work Phone: Start: 06-22-2024 Antibody screen JULIET CHANELLE Comment on above: Order Comment: HOLD. Specimen is valid for 3 days - nurse to verify valid specimen Performed By: #### L [id number] #### Pumper Helper: JORDYN DUFFY ([phone]) [facility] [address] [place] [address] Start: 06-22-2024 ABO and Rh group [Ty pe] in Blood by Confirmatory method Malu Adams MD Work Phone: Start: 06-22-2024 Blood typing serologic abo Malu Adams MD Work Phone: Start: 06-22-2024 Comprehensive metabo lic panel Malu Adams MD Work Phone: Start: 06-22-2024 End: 06-22-2024 Culture bacterial quanttative colony count urine Malu Adams MD Work Phone: Start: 06-22-2024 Bacterial vaginosis and vaginitis rRNA panel - Vaginal fluid by Probe Malu Adams MD Work Phone: Start: 06-22-2024 Adult depression scr eening assessment Leatha Samayoa MD Work Phone: Start: 06-18-2024 Blood count complete automated Historical Provider Work Phone: Start: 06-04-2024 Betamethasone (substance) Anika [...] panel - Urine Qualitative by Automated Bela CRAVEN-C Work Phone: Start: 06-19-2023 Urine test visual color cmprsn meths Bela López PA-C Work Phone: Start: 06-19-2023 Urnls dip stick/tabl et reagent auto microscopy Bela López PA-C Work Phone: Start: 05-18-2023 Bacteria identified in Urine by Culture JORDYN THAKUR Start: 05-18-2023 POCT UA AUTOMATED MA NUALLY RESULTED JORDYN THAKUR Start: 05-18-2023 Urnls dip stick/tabl et rgnt auto w/o microscopy Jordyn Thakur OFFICE HELPER-CHEESE COOK Work Phone: Start: 04-14-2023 Lipid 1996 panel - S charley or Plasma Kemi Echevarria MD Work Phone: Start: 03-10-2022 Lipid 1996 panel - S charley or Plasma Dominick Lewis MD Work Phone: Start: 01-04-2021 End: 01-04-2021 EKG impression Beverly Meganjose Extraction of wisdom tooth A my D Ashley Work Phone: Comment on above: x 4 extracted 4 year s ago; Plan of Treatment Date Care Activity Detail Author Start: 12-29-2075 RSV Immunization for Adults (1 - 1-dose 75+ series) RSV Immunization for Adults (1 - 1-dose 75+ series) [employer] [facility] Start: 2050 Zoster Vaccines (1 of 2) Zoste r Vaccines (1 of 2) [facility] Start: 04-14-2028 Lipid panel Lipid Panel [facility] Start: 03-10-2027 Lipid panel Lipid Panel [facility] Start: 06-22-2025 Depression Screening Depression Scre chaunceying [facility] Start: 04-11-2024 End: 04-11-2024 Patient encounter procedure 04/11/2024 4:20 PM EDT Office Visit [facility] [address] [place] [phone] Jordyn Thakur, OFFICE HELPER-CHEESE COOK [address] [place] [address] [facility] Start: 03-31-2024 DTaP/Tdap/Td Vaccine s (7 - Td or Tdap) DTaP/Tdap/Td Vaccines (7 - Td or Tdap) [facility] Start: 03-31-2024 Tetanus vaccination Tetanus: Every 1 0yrs [facility] Start: 03-23-2024 COVID-19 Vaccine ( season) COVID-19 Vaccine ( season) [facility] Start: 03-23-2024 COVID-19 Vaccine ( season) COVID-19 Vaccine ( season) [facility] Start: 03-23-2024 Influenza vaccination Influenza Vacc ine (#1) [facility] Start: 01-20-2024 Influenza vaccination Influenza Vacc ine (#1) [facility] Comment on above: Postponed from 03/23 (Patient Refused) Start: 10-22-2023 End: 10-22-2023 Patient encounter procedure 10/22/2023 3:30 PM EDT Office Visit [facility] [address] [place] [phone] Anika Richardson MD [address] [facility], [address] [place] [address] [facility] Start: 10-17-2023 End: 10-17-2023 Patient encounter procedure 10/17/2023 1:00 PM EDT Office Visit [facility] Office Building [address] [place] [phone] Cooper Hensley MD [address] [facility] [address] [place] [address] [facility] Start: 10-10-2023 End: 10-10-2023 Telemedicine consultation with patient 10/10/2023 3:40 PM EDT Telemedicine [facility] [address] [place] [phone] Jordyn Thakur, OFFICE HELPER-CHEESE COOK [address] [place] [id number] [facility] Start: 08-27-2023 End: 08-21-2024 Progesterone [Mass/volume] in Serum or Plasma Progesterone Lab Routine Family planning counseling Expected: 08/27/2023 (Approximate), Expires: 08/21/2024 [facility] Service Area Work Phone: Comment on above: Expected: 08/27/2023 (Approximate), Expires: 08/21/2024 Start: 07-13-2023 End: 07-13-2023 Patient encounter procedure 07/13/2023 9:00 AM EST Office Visit [facility] [address] [place] [phone] Jordyn Thakur, OFFICE HELPER-CHEESE COOK [address] [place] [address] [facility] Start: 07-03-2023 End: 07-03-2023 Patient encounter procedure 07/03/2023 2:15 PM EST Office Visit [facility] [address] [facility] [address] [place] [address] Lola Devine MD MPH [address] [facility], [address] [place], [place] [id number] [facility] Start: 05-18-2023 End: 05-25-2023 Bacteria identified in Urine by Culture [facility] Service Area Work Phone: Comment on above: Expected: 05/18/2023 (Approximate), Expires: 05/25/2023 Start: 04-09-2023 End: 04-09-2024 oxyCODONE Immediate Release 5 mg Oral Tablet Every 4 Hours ; Tablet (OXYIR, ROXICODONE)DOSE = 5 mg Oral Every 4 Hours, PRN Pain - Severe (7-10) Start: 09-Apr-2023 End: 08-Apr-2024 Ordered: 09-Apr-2023 Delgado Nix Intent [facility] Start: 04-09-2023 End: 04-09-2024 [facility] Start: 03-06-2023 FUV, Provider: Jordyn Ramirez, Status: Pen, Time: 2:40 PM FUV, Provider: Jordyn Ramirez, Status: Pen, Time: 2:40 PM [facility] Work Phone: Start: 03-06-2023 FUV, Provider: Jordyn Thakur, Status: Pen, Time: 2:40 PM FUV, Provider: Jordyn Thakur, Status: Pen, Time: 2:40 PM [facility] Work Phone: Start: 03-06-2023 Patient encounter procedure Outpatient [facility] Start: 06-Mar-2023 14:40 Jordyn Thakur Intent [facility] Start: 03-06-2023 End: 03-06-2023 Patient encounter procedure 03/06/2023 2:40 PM EDT Office Visit [facility] [address] [place] [phone] Jordyn Thakur, OFFICE HELPER-CHEESE COOK [address] [place] [address] [facility] Start: 10-26-2022 Screening for Chlamy ankita trachomatis Chlamydia Screening [facility] Start: 09-14-2022 FUV, Provider: Jordyn Thakur, Status: Pen, Time: 2:20 PM FUV, Provider: Jordyn Thakur, Status: Pen, Time: 2:20 PM [facility] Work Phone: Start: 09-14-2022 Patient encounter procedure [facility] Start: 08-31-2022 [facility] Start: 08-10-2022 NPV, Provider: Jocelyne Bae, Status: Pen, Time: 1:00 PM NPV, Provider: Jocelyne Bae, Status: Pen, Time: 1:00 PM [facility] Work Phone: Start: 05-23-2022 FUV, Provider: Kemi Echevarria, Status: Pen, Time: 2:00 PM FUV, Provider: Kemi Echevarria, Status: Pen, Time: 2:00 PM [facility] Work Phone: Start: 05-10-2022 End: 05-10-2022 Patient encounter procedure 05/10/2022 Office Visit Sports Medicine Joselin Noyola, CHEESE COOK [address] [place] [address] [facility] Start: 03-31-2022 FUV, Provider: Jordyn Ramirez, Status: Pen, Time: 2:20 PM FUV, Provider: Jordyn Ramirez, Status: Pen, Time: 2:20 PM [facility] Work Phone: Start: 03-23-2022 Influenza vaccination [facility] Start: 2021 Screening for malign ant neoplasm of cervix [facility] Start: 12-14-2021 History and physical examination, annual for health maintenance Wellness Visit [facility] Start: 2018 COVID-19 Vaccine (#1) COVID-19 Vacci ne (#1) [facility] Start: 2018 Hepatitis C screening Hepatitis C Sc reening [facility] Start: 12-29-2015 HIV screening HIV Screening [facility] Start: 2012 Depression screening using PHQ-9 (Patient Health Questionnaire 9) score Depression Screening (PHQ-2/9) [facility] Start: 2006 Pneumococcal Vaccine : Pediatrics (0 to 5 Years) and At-Risk Patients (6 to 64 Years) (1 - PCV) Pneumococcal Vaccine: Pediatrics (0 to 5 Years) and At-Risk Patients (6 to 64 Years) (1 - PCV) [facility] Start: 2006 Pneumococcal Vaccine : Pediatrics (0 to 5 Years) and At-Risk Patients (6 to 64 Years) (1 of 2 - PCV) Pneumococcal Vaccine: Pediatrics (0 to 5 Years) and At-Risk Patients (6 to 64 Years) (1 of 2 - PCV) [facility] Start: 12-29-2003 Well Child Visit (WC V) - Annual Well Child Visit (WCV) - Annual [facility] Start: 06-29-2001 COVID-19 Vaccine (#1) COVID-19 Vacci ne (#1) [facility] Start: 2000 Hearing Screening (#1) Hearing Scree wilberto (#1) [facility] Start: 2000 HIV screening HIV Screening [facility] Start: 2000 Screening for Chlamy ankita trachomatis Chlamydia and Gonorrhea Screening [facility] Start: 2000 Screening for malign ant neoplasm of cervix Pap Smear [facility] Start: 2000 Yearly Adult Physical Yearly Adult P hysical [facility] End: 06-19-2023 Bacteria identified in Urine by Culture [facility] Work Phone: Comment on above: Once (Lab) for 1 Occ urrences starting 06/19/2023 until 06/19/2023 End: 06-19-2023 Extra Urine Brody Tube [facility] Work Phone: Comment on above: Once for 1 Occurrenc es starting 06/19/2023 until 06/19/2023 End: 06-19-2023 Urinalysis complete W Reflex Culture panel - Urine [facility] Service Area Work Phone: Comment [...] recombinant, OMV, adjuvanted Jordyn Thakur Work Phone: [facility] Work Phone: 04-02-2017 hepatitis A vaccine, pediatric/adolescent dosage, 2 dose schedule Jordyn Thakur Work Phone: [facility] Work Phone: 04-02-2017 Human Papillomavirus 9-valent vaccine Jordyn Thakur Work Phone: [facility] Work Phone: 04-02-2017 meningococcal polysaccharide (groups A, C, Y and W-135) diphtheria toxoid conjugate vaccine (MCV4P) Jordyn Thakur Work Phone: [facility] Work Phone: 01-14-2015 HPV, unspecified formulation Jordyn Thakur Work Phone: [facility] Work Phone: 01-14-2015 varicella virus vaccine Jordyn Thakur Work Phone: [facility] Work Phone: 03-31-2014 meningococcal polysaccharide (groups A, C, Y and W-135) diphtheria toxoid conjugate vaccine (MCV4P) Jordyn Jason Thakur Work Phone: [facility] Work Phone: 03-31-2014 tetanus toxoid, redu karina diphtheria toxoid, and acellular pertussis vaccine, adsorbed Jordyn Jason Thakur Work Phone: [facility] Work Phone: 06-18-2009 novel [id number], live virus for nasal administration Jordyn Thakur Work Phone: [facility] Work Phone: 06-18-2009 influenza virus vaccine, unspecified formulation Dominick Lewis MD Work Phone: [facility] Work Phone: 04-12-2007 diphtheria, tetanus toxoids and acellular pertussis vaccine Jordyn Thakur Work Phone: [facility] Work Phone: 04-12-2007 measles, mumps and rubella virus vaccine Jordyn Jason Thakur Work Phone: [facility] Work Phone: 04-12-2007 poliovirus vaccine, inactivated Jordyn Thakur Work Phone: [facility] Work Phone: 05-18-2003 pneumococcal conjuga te vaccine, 7 valent Jordyn Thakur Work Phone: [facility] Work Phone: 08-22-2002 diphtheria, tetanus toxoids and acellular pertussis vaccine, unspecified formulation Jordyn Thakur Work Phone: [facility] Work Phone: 12-23-2001 diphtheria, tetanus toxoids and acellular pertussis vaccine, unspecified formulation Jordyn Thakur Work Phone: [facility] Work Phone: 12-23-2001 haemophilus influenz ae type b vaccine, conjugate unspecified formulation Jordyn Thakur Work Phone: [facility] Work Phone: 12-23-2001 hepatitis B vaccine, pediatric or pediatric/adolescent dosage Jordyn Thakur Work Phone: [facility] Work Phone: 12-23-2001 measles, mumps and rubella virus vaccine Jordyn Thakur Work Phone: [facility] Work Phone: 12-23-2001 pneumococcal conjuga te vaccine, 7 valent Jordyn Thakur Work Phone: [facility] Work Phone: 12-23-2001 poliovirus vaccine, inactivated Jordyn Thakur Work Phone: [facility] Work Phone: 12-23-2001 varicella virus vaccine Jordyn Thakur Work Phone: [facility] Work Phone: 06-12-2001 diphtheria, tetanus toxoids and acellular pertussis vaccine, unspecified formulation Jordyn Thakur Work Phone: [facility] Work Phone: 06-12-2001 haemophilus influenz ae type b vaccine, conjugate unspecified formulation Jordyn Jason Ofe Work Phone: [facility] Work Phone: 06-12-2001 hepatitis B vaccine, pediatric or pediatric/adolescent dosage Jordyn Thakur Work Phone: [facility] Work Phone: 06-12-2001 poliovirus vaccine, inactivated Jordyn Jason Thakur Work Phone: [facility] Work Phone: 03-28-2001 diphtheria, tetanus toxoids and acellular pertussis vaccine, unspecified formulation Jordyn Thakur Work Phone: [facility] Internal Medicine Work Phone: 03-28-2001 haemophilus influenz ae type b vaccine, conjugate unspecified formulation Jordyn Thakur Work Phone: [facility] Internal Medicine Work Phone: 03-28-2001 hepatitis B vaccine, pediatric or pediatric/adolescent dosage Jordyn Thakur Work Phone: [facility] Internal Medicine Work Phone: 03-28-2001 pneumococcal conjuga te vaccine, 7 valent Jordyn Thakur Work Phone: [facility] Internal Medicine Work Phone: 03-28-2001 poliovirus vaccine, inactivated Jordyn Thakur Work Phone: [facility] Internal Medicine Work Phone: NEGATED: Highlighted row has not occurred!06-25-2024 measles, mumps and rubella virus vaccine Leatha Samayoa MD Work Phone: [employer] Comment on above: Deferred: No longer needed NEGATED: Highlighted row has not occurred!06-24-2024 influenza, injectable, madin karan canine kidney, preservative free Leatha Samayoa MD Work Phone: [employer] Comment on above: Deferred: Patient Re fused NEGATED: Highlighted row has not occurred!06-24-2024 tetanus toxoid, reduced diphtheria toxoid, and acellular pertussis vaccine, adsorbed Leatha Samayoa MD Work Phone: [employer] Comment on above: Deferred: Patient Re fused NEGATED: Highlighted row has not occurred!06-23-2024 influenza, injectable, madin karan canine kidney, preservative free Leatha Samayoa MD Work Phone: [employer] Comment on above: Deferred: Patient Re fused Payers Date Payer Category Payer Medicaid [facility] MEDICAID ODM [id number] 2022 Private Health Insurance [id number] 2020 Medicaid UHC MANAGED MEDI CAID UHC MEDICAID COMMUNITY PLAN [id number] 2020-Present [phone] [address] [place] [address] [id number]. [id number] 2019 Medicaid [id number] 2019 Medicaid [id number] 2018 Unknown 2000 Unknown [id number] 2.16.840.1.351713.3.579.2. 651 2000 Unknown [id number] 2.16.840.1.995193.3.579.2. 903 2000 Unknown [id number] 2.16.840.1.704033.3.579.2. 903 2000 Unknown [id number] 2.16.840.1.267567.3.579.2. 903 2000 Unknown [id number] 2.16.840.1.027816.3.579.2. 903 2000 Unknown [id number] 2.16.840.1.628815.3.579.2. 903 2000 Unknown [id number] 2.16.840.1.385343.3.579.2. 903 2000 Unknown [id number] 2.16.840.1.850911.3.579.2. 902 2000 Unknown [id number] 2.16.840.1.399191.3.579.2. 2 2000 Unknown [id number] 2.16.840.1.143675.3.579.2. 902 2000 Unknown [id number] 2.16.840.1.271345.3.579.2. 356 2000 Unknown [id number] 2.16.840.1.335871.3.579.2. 356 2000 Unknown [id number] 2.16.840.1.333701.3.579.2. 356 2000 Unknown [id number] 2.16.840.1.272437.3.579.2. 356 2000 Unknown [id number] 2.16.840.1.221945.3.579.2. 356 2000 Unknown [id number] 2.16.840.1.387696.3.579.2. 356 2000 Unknown [id number] 2.16.840.1.125608.3.579.2. 1068 2000 Unknown [id number] 2.16.840.1.432282.3.579.2. 1069 2000 Unknown [id number] 2.16.840.1.614229.3.579.2. 9 2000 Unknown [id number] 2.16.840.1.875030.3.579.2. 1069 2000 Unknown [id number] 2.16.840.1.959158.3.579.2. 1245 2000 Unknown [id number] 2.16.840.1.124625.3.579.2. 1243 2000 Unknown [id number] 2.16.840.1.600481.3.579.2. 727 2000 Unknown [id number] 2.16.840.1.611364.3.579.2. 727 2000 Unknown [id number] 2.16.840.1.637110.3.579.2. 72 2000 Unknown [id number] 2.16.840.1.314907.3.579.2. 1243 2000 Unknown [id number] 2.16.840.1.293430.3.579.2. 1243 2000 Unknown [id number] 2.16.840.1.173567.3.579.2. 1243 2000 Unknown [id number] 2.16.840.1.201731.3.579.2. 1243 2000 Unknown [id number] 2.16.840.1.021708.3.579.2. 1243 2000 Unknown [id number] 2.16.840.1.511310.3.579.2. 1243 2000 Unknown [id number] 2.16840.1.134680.3.579.2. 1243 2000 Unknown [id number] 2.16840.1.058656.3.579.2. 2000 Unknown [id number] 2.16840.1.991607.3.579.2. 2000 Unknown [id number] 2.16.840.1.105239.3.579.2. 2000 Unknown [id number] 2.16.840.1.870240.3.579.2. 2000 Unknown [id number] 2.16840.1.081399.3.579.2. 2000 Unknown [id number] 2.16.840.1.525544.3.579.2. 2000 Unknown [id number] 2.16.840.1.017195.3.579.2. 2000 Unknown [id number] 2.16.840.1.200095.3.579.2. 2000 Unknown [id number] 2.16840.1.623221.3.579.2. 727 2000 Unknown [id number] 2.16.840.1.399493.3.579.2. 727 2000 Unknown [id number] 2.16.840.1.184437.3.579.2. 727 1983 Unknown [id number] 2.16.840.1.207538.3.579.2. 717 1983 Unknown [id number] 2.16.840.1.033971.3.579.2. 717 1983 Unknown [id number] 2.16.840.1.500125.3.579.2. 717 Self-pay [id number] Unknown [id number] Social History Date Type Detail Facility [facility] Tobacco smoking consumption unknown [facility] Start: 10-03-2022 End: 06-22-2024 Nicotine dependence due to vaping tobacco product Nicotine dependence due to vaping tobacco product [facility] Internal Medicine Work Phone: Start: 2000 Sex Assigned At Not on file [facility] Start: 04-15-2022 End: 08-21-2023 Exposure to SARS-CoV-2 (event) Not sure [facility] Start: 10-03-2022 End: 09-23-2024 Tobacco smoking status NHIS Never smoked tobacco [facility] Work Phone: Start: 10-03-2022 End: 05-06-2024 Tobacco use and exposure Smokeless tobacco non-user [facility] Work Phone: Start: 10-03-2022 End: 10-20-2022 Alcohol intake Current drinker of alcohol (finding) [facility] Work Phone: Start: 10-03-2022 End: 06-22-2024 Tobacco use panel [facility] Work Phone: Start: 04-23-2023 Alcohol Comment RARE [facility] Work Phone: Start: 01-19-2021 Tobacco smoking status NHIS Smokes tobacco daily [facility] Start: 01-19-2021 End: 08-14-2023 History of tobacco use Cigarette Smoker [facility] Work Phone: History of tobacco use Pipe Smoker [facility] Work Phone: Start: 08-21-2023 End: 06-23-2024 Alcohol intake Ex-drinker (finding) [facility] Work Phone: Start: 08-21-2023 Tobacco Comment I vape. [facility] Work Phone: Start: 08-21-2023 Alcohol Comment I drink once every few momths [facility] Work Phone: Start: 09-09-2023 End: 05-06-2024 Exposure to SARS-CoV-2 (event) Unable to assess [facility] Work Phone: Tobacco smoking status No Smokin g Status Entered [facility] Start: 05-06-2024 Tobacco smoking status NHIS Ex-smoker [facility] Start: 01-19-2021 End: 08-14-2023 History of tobacco use Current smoker [facility] Work Phone: Tobacco Former vaping or e-cigarette use Smokeless Tobacco Use:. [facility] Start: 06-22-2024 Tobacco use and exposure Former smokeless tobacco user [employer] Has the [employer], or [employer] threatened to shut off services in your home in past 12Mo No [employer] (I/We) worried wheth er (my/our) food would run out before (I/we) got money to buy more. Never true [employer] In the past 12 month s, has lack of transportation kept you from medical appointments or from getting medications? No [facility] Start: 06-22-2024 Sex Female (finding) [employer] [facility] Functional Status Date Assessment Result Facility 09-23-2024 Functional Status N/A [facility] 06-22-2024 Functional Status N/A [facility] 06-21-2024 Functional Status N/A [facility] 06-03-2024 Functional Status N/A [facility] Functional observable [facility] Mental Status Date Assessment Result Facility 04-11-2023 Cognitive functions 0239:29 [facility] Clinical Notes 03-03-2021 to 10-12-2024 Note - Jyoti Navarro, RN - 06/25/2024 12:00 PM ESTLactation Note - VICKI Peña - 06/24/2024 11:37 AM ESTCare Coordination - Amaya Gupta, ROXI - 06/24/2024 5:25 AM EST<item> Note Date & Type Note Facility 10-12-2024 Note Patient Education Infectious Disease Upper Respiratory Infection, Adult An upper respiratory infection (URI) is a common viral infection of the nose, throat, and upper air passages that lead to the lungs. The most common type of URI is the common cold. URIs usually get better on their own, without medical treatment. What are the causes? A URI is caused by a virus. You may catch a virus by: ??? Breathing in droplets from an infected person's cough or sneeze. ??? Touching something that has been exposed to the virus (is contaminated) and then touching your mouth, nose, or eyes. What increases the risk? You are more likely to get a URI if: ??? You are very young or very old. ??? You have close contact with others, such as at work, school, or a health care facility. ??? You smoke. ??? You have long-term (chronic) heart or lung disease. ??? You have a weakened disease-fighting system (immune system). ??? You have nasal allergies or asthma. ??? You are experiencing a lot of stress. ??? You have poor nutrition. What are the signs or symptoms? A URI usually involves some of the following symptoms: ??? Runny or stuffy (congested) nose. ??? Cough. ??? Sneezing. ??? Sore throat. ??? Headache. ??? Fatigue. ??? Fever. ??? Loss of appetite. ??? Pain in your forehead, behind your eyes, and over your cheekbones (sinus pain). ??? Muscle aches. ??? Redness or irritation of the eyes. ??? Pressure in the ears or face. How is this diagnosed? This condition may be diagnosed based on your medical history and symptoms, and a physical exam. Your health care provider may use a swab to take a mucus sample from your nose (nasal swab). This sample can be tested to determine what virus is causing the illness. How is this treated? URIs usually get better on their own within 7?10 days. Medicines cannot cure URIs, but your health care provider may recommend certain medicines to help relieve symptoms, such as: ??? Sewn-uyd-kuzvota cold medicines. ??? Cough suppressants. Coughing is a type of defense against infection that helps to clear the respiratory system, so take these medicines only as recommended by your health care provider. ??? Fever-reducing medicines. Follow these instructions at home: Activity ??? Rest as needed. ??? If you have a fever, stay home from work or school until your fever is gone or until your health care provider says your URI cannot spread to other people (is no longer contagious). Your health care provider may have you wear a face mask to prevent your infection from spreading. Relieving symptoms ??? Gargle with a mixture of salt and water 3?4 times a day or as needed. To make salt water, completely dissolve ??1 tsp (3?6 g) of salt in 1 cup (237 mL) of warm water. ??? Use a cool-mist humidifier to add moisture to the air. This can help you breathe more easily. Eating and drinking ??? Drink enough fluid to keep your urine pale yellow. ??? Eat soups and other clear broths. General instructions ??? Take mfve-bsc-vwrevrr and prescription medicines only as told by your health care provider. These include cold medicines, fever reducers, and cough suppressants. ??? Do not use any products that contain nicotine or tobacco. These products include cigarettes, chewing tobacco, and vaping devices, such as e-cigarettes. If you need help quitting, ask your health care provider. ??? Stay away from secondhand smoke. ??? Stay up to date on all immunizations, including the yearly (annual) flu vaccine. ??? Keep all follow-up visits. This is important. How to prevent the spread of infection to others URIs can be contagious. To prevent the infection from spreading: ??? Wash your hands with soap and water for at least 20 seconds. If soap and water are not available, use hand credit risk modeler. ??? Avoid touching your mouth, face, eyes, or nose. ??? Cough or sneeze into a tissue or your sleeve or elbow instead of into your hand or into the air. Contact a health care provider if: ??? You are getting worse instead of better. ??? You have a fever or chills. ??? Your mucus is brown or red. ??? You have yellow or brown discharge coming from your nose. ??? You have pain in your face, especially when you bend forward. ??? You have swollen neck glands. ??? You have pain while swallowing. ??? You have white areas in the back of your throat. Get help right away if: ??? You have shortness of breath that gets worse. ??? You have severe or persistent: ? Headache. ? Ear pain. ? Sinus pain. ? Chest pain. ??? You have chronic lung disease along with any of the following: ? Making high-pitched whistling sounds when you breathe, most often when you breathe out (wheezing). ? Prolonged cough (more than 14 days). ? Coughing up blood. ? A change in your usual mucus. ??? You have a stiff neck. ? (more content not included)... [facility] 09-23-2024 Hospital Discharge instructions Patient Education 09/23/2024 12:43:55 Canker Sores Canker Sores Canker sores are small, painful sores that develop inside the mouth. You can get one or more canker sores on the inside of your lips or cheeks, on your tongue, or anywhere inside your mouth. Canker sores cannot be passed from person to person (are not contagious). These sores are different from the sores that you may get on the outside of your lips (cold sores or fever blisters). What are the causes? The cause of this condition is not known. The condition may be passed down from a parent (genetic). What increases the risk? This condition is more likely to develop in: Females. People in their teens or 20s. Females who are having their menstrual period. People who are under a lot of emotional stress. People who do not get enough iron or B vitamins. People who do not take care of their mouth and teeth (have poor oral hygiene). People who have an injury inside the mouth, such as after having dental work or from chewing something hard. What are the signs or symptoms? Canker sores usually start as painful red bumps. Then they turn into small white, yellow, or brody sores that have red borders. The sores may be painful, and the pain may get worse when you eat or drink. In severe cases, along with the canker sore, symptoms may also include: Fever. Tiredness (fatigue). Swollen lymph nodes in your neck. How is this diagnosed? This condition may be diagnosed based on your symptoms and an exam of the inside of your mouth. If you get canker sores often or if they are very bad, you may have tests, such as: Blood tests to rule out possible causes. Swabbing a fluid sample from the sore to be tested for infection. Removing a small tissue sample from the sore (biopsy). How is this treated? Most canker sores go away without treatment in about 1 week. Home care is usually the only treatment that you will need. Lxzc-wvn-ehabmrb medicines can relieve discomfort. If you have severe canker sores, your health care provider may prescribe: Numbing ointment to relieve pain. ?Do not use products that contain benzocaine (including numbing gels) to treat teething or mouth pain in children who are younger than 2 years. These products may cause a rare but serious blood condition. Vitamins. Steroid medicines. These may be given as pills, mouth rinses, or gels. Antibiotic mouth rinse. Follow these instructions at home: Apply, take, or use trzn-guv-vyddfed and prescription medicines only as told by your health care provider. These include vitamins and ointments. If you were prescribed an antibiotic mouth rinse, use it as told by your health care provider. Do not stop using the antibiotic even if your condition improves. Until the sores are healed: ?Do not drink coffee or citrus juices. ?Do not eat spicy or salty foods. Use a mild, sqvu-ufi-envlebk mouth rinse as recommended by your health care provider. Take good care of your mouth and teeth (oral hygiene) by: ?Flossing your teeth every day. ?Brushing your teeth with a soft toothbrush twice each day. Contact a health care provider if: Your symptoms do not get better after 2 weeks. You also have a fever or swollen glands in your neck. You get canker sores often. You have a canker sore that is getting larger. You cannot eat or drink due to your canker sores. Summary Canker sores are small, painful sores that develop inside the mouth. Canker sores usually start as painful red bumps that turn into small white, yellow, or brody sores that have red borders. The sores may be painful, and the pain may get worse when you eat or drink. Most canker sores clear up without treatment in about 1 week. Xemm-cqx-detxheq medicines can relieve discomfort. This information is not intended to replace advice given to you by your health care provider. Make sure you discuss any questions you have with your health care provider. Document Revised: 04/19/2022 Document Reviewed: 04/19/2022 [employer] Patient Education 2023 [employer]. [facility] 09-23-2024 Note Patient Education ENT Canker Sores Canker sores are small, painful sores that develop inside the mouth. You can get one or more canker sores on the inside of your lips or cheeks, on your tongue, or anywhere inside your mouth. Canker sores cannot be passed from person to person (are not contagious). These sores are different from the sores that you may get on the outside of your lips (cold sores or fever blisters). What are the causes? The cause of this condition is not known. The condition may be passed down from a parent (genetic). What increases the risk? This condition is more likely to develop in: ??? Females. ??? People in their teens or 20s. ??? Females who are having their menstrual period. ??? People who are under a lot of emotional stress. ??? People who do not get enough iron or B vitamins. ??? People who do not take care of their mouth and teeth (have poor oral hygiene). ??? People who have an injury inside the mouth, such as after having dental work or from chewing something hard. What are the signs or symptoms? Canker sores usually start as painful red bumps. Then they turn into small white, yellow, or brody sores that have red borders. The sores may be painful, and the pain may get worse when you eat or drink. In severe cases, along with the canker sore, symptoms may also include: ??? Fever. ??? Tiredness (fatigue). ??? Swollen lymph nodes in your neck. How is this diagnosed? This condition may be diagnosed based on your symptoms and an exam of the inside of your mouth. If you get canker sores often or if they are very bad, you may have tests, such as: ??? Blood tests to rule out possible causes. ??? Swabbing a fluid sample from the sore to be tested for infection. ??? Removing a small tissue sample from the sore (biopsy). How is this treated? Most canker sores go away without treatment in about 1 week. Home care is usually the only treatment that you will need. Dowy-zcm-wjsreef medicines can relieve discomfort. If you have severe canker sores, your health care provider may prescribe: ??? Numbing ointment to relieve pain. ? Do not use products that contain benzocaine (including numbing gels) to treat teething or mouth pain in children who are younger than 2 years. These products may cause a rare but serious blood condition. ??? Vitamins. ??? Steroid medicines. These may be given as pills, mouth rinses, or gels. ??? Antibiotic mouth rinse. Follow these instructions at home: ??? Apply, take, or use nfyq-ccu-pkjzfie and prescription medicines only as told by your health care provider. These include vitamins and ointments. ??? If you were prescribed an antibiotic mouth rinse, use it as told by your health care provider. Do not stop using the antibiotic even if your condition improves. ??? Until the sores are healed: ? Do not drink coffee or citrus juices. ? Do not eat spicy or salty foods. ??? Use a mild, zxeu-qyh-ucudwis mouth rinse as recommended by your health care provider. ??? Take good care of your mouth and teeth (oral hygiene) by: ? Flossing your teeth every day. ? Brushing your teeth with a soft toothbrush twice each day. Contact a health care provider if: ??? Your symptoms do not get better after 2 weeks. ??? You also have a fever or swollen glands in your neck. ??? You get canker sores often. ??? You have a canker sore that is getting larger. ??? You cannot eat or drink due to your canker sores. Summary ??? Canker sores are small, painful sores that develop inside the mouth. ??? Canker sores usually start as painful red bumps that turn into small white, yellow, or brody sores that have red borders. ??? The sores may be painful, and the pain may get worse when you eat or drink. ??? Most canker sores clear up without treatment in about 1 week. Ridy-ubn-lfrmgsy medicines can relieve discomfort. This information is not intended to replace advice given to you by your health care provider. Make sure you discuss any questions you have with your health care provider. Document Revised: 04/19/2022 Document Reviewed: 04/19/2022 [employer] Patient Education ? 2023 [employer]. [facility] 06-25-2024 Miscellaneous Notes In to follow up [...] Date: 06/24/2024 Name: Luz Hinojosa : 2000 [facility] Patient Information Primary Caregiver: Self Accompanied by/Relationship: [...] place to sleep or slept in a fpc (including now)? No Transportation Needs Has the [...] Date of delivery: 06/23/2024 Pre-operative Diagnosis: Luz Hutchinson0000 at 29w5d 1. labor 2. Anxiety Post-operative Diagnosis: Live Born male Delivering Locker Room Clerk & Sagger Maker(s): Dr. Ponce; Dr. Adams Infant Information: Information for the patient's : Onesimo Hinojosa [[id number]] Information for the patient's : Onesimo Hinojosa [[id number]] Description: normal Meconium Noted: No Anesthesia: epidural anesthesia Complications: None Application and Delivery: Luz Goel at 29w5d admitted for threatened labor as a transfer from [place]. She progressed with cervical dilation despite tocolysis. [...] attended by the RN for evaluation. The infant was stimulated and dried. The cord was [...] Quantitative Blood Loss: 50 mL Onesimo Hinojosa [[id number]] Labor Events labor?: Yes steroids: Full Course [...] present: No Gita maneuver: Suprapubic pressure: Episotomy: Cupl maneuver: Masters screw maneuver: Devyn maneuver: Delivery [...] laceration Repair suture: None Vaginal Counts 4x4 [place] [employer] Lap Pads Sponges Initial counts Interim counts Final counts 17 2 Final count personnel: FLORES Final count verified by: VIR[place] Accurate final count?: Yes Blood Loss Mother: Luz Hinojosa #[id number] Start of Mother's Information Delivery Blood Loss Intrapartum & : 06/23/24 0749 - 06/23/242132 Delivery Admission: 06/22/24 1832 - 06/23/242132 Intrapartum & Delivery Admission Quantitative Blood Loss (mL) Hospital Encounter 50 mL 50 mL Total 50 mL 50 mL End of Mother's Information Mother: Luz Hinojosa #[id number] Delivery Providers Delivering clinician: Jenny Ponce MD Provider Role Consulting Physician Malu Adams MD Delivery Assist Judie Ochoa, french weaver Nurse Moriah Oreilly, RN Nurse Trudi Argueta, OFFICE HELPER - CHEESE COOK Nurse Practitioner Luci Ramachandran RN NICU Nurse Shavonne Meade RCP Respiratory Therapist Nurse Statistician Applied Scrub Nurse Fab Alexis, UR COORDINATOR Nurse Emily Teresa MD [place] Assessment Living status: Living Scoring Ward: 0 [...] Skin Reason skin to skin not initiated: [place] Acuity Disposition Handoff Immediately at : To warmer with [...] labor floor and patient may request epidural. PRODUCT DIRECTOR updated and aware. Date: 06/23/2024 Name: Luz Hinojosa : 2000 [facility] Patient Information Primary Caregiver: Self [...] place to sleep or slept in a fpc (including now)? No Transportation Needs Has the [...] maternal and/or condition is stable: Maternal surveillance director of regional sales uterine activity Medications as ordered Problem: Pain [...] on patient safety documented in this encounter [facility] 06-25-2024 Obstetrics Note In to follow up with NICU mom. Mom is pumping every 3 hours for 40-50cc EDITA. Mom has Spectra pump for home. Discharge today. [facility] 06-25-2024 Note Department of Obstet rics and Gynecology Delivery Discharge Summary Admission on 06/22/2024 6:32 PM Hospital course: Luz Hinojosa is a 23 y.o. at 29w4d who presented to Labor and Delivery for threatened labor as a trasnfer from [employer]. She was noted to be 2/50/-3 at [...] Information for the patient's : Onesimo Hinojosa [[id number]] male 1335 g (2 lb 15.1 oz) Apgars: Information for the patient's : Onesimo Hinojosa [[id number]] : Infant: Boy, in NICU Blood Type/Rh: [...] Your Medications These medications were sent to [facility] [address] [place], [place] [id number] Hours: Sunday to Sunday 10 am to 6 pm DSS 100 MG capsule ibuprofen 600 MG tablet norethindrone 0.35 MG tablet Activity: Activity as tolerated Diet: Regular diet Follow-up Appointments: - visit If a patient meets criteria for hypertension, make sure the following are done prior to discharge: [] Order a blood pressure kit through [facility] (or the patient's own pharmacy on the weekend) [] Order the blood pressure log through [facility] [] Place an office visit or telephone [...] her physician if any of these occur. [facility] 06-25-2024 Hospital course Narrative Images from the original note were not included. Department of Obstetrics and Gynecology Delivery Discharge Summary Admission on 06/22/2024 6:32 PM Hospital course: Luz Hinojosa is a 23 y.o. at 29w4d who presented to Labor and Delivery for threatened labor as a trasnfer from [facility]. She was noted to be 2/50/-3 at [...] Information for the patient's : Onesimo Hinojosa [[id number]] male 1335 g (2 lb 15.1 oz) Apgars: Information for the patient's : Onesimo Hinojosa [[id number]] : : Boy, in NICU Blood Type/Rh: [...] Your Medications These medications were sent to [facility] [address] [place] [address] Hours: Sunday to Sunday 10 am to 6 pm DSS 100 MG capsule ibuprofen 600 MG tablet norethindrone 0.35 MG tablet Activity: Activity as tolerated Diet: Regular diet Follow-up Appointments: - visit If a patient meets criteria for hypertension, make sure the following are done prior to discharge: [] Order a blood pressure kit through [facility] (or the patient's own pharmacy on the weekend) [] Order the blood pressure log through [facility] [] Place an office visit or telephone [...] of these occur. documented in this encounter [facility] 06-25-2024 Hospital Discharge instructions Jenny Ponce MD - 06/25/2024 10:06 AM EST Images from the original note were not included. Thank you for allowing us to care of you at [facility]. This time can be one of [...] over the next few weeks. Bleeding may burr picker and then decrease again around 7-10 [...] avoid constipation you may take a mild bqrr-cjw-ciibspj stool softener (such as colace) as recommended [...] call 911 immediately. documented in this encounter [facility] 06-25-2024 Note Discharge Summary SHORT-STAY/TRANSFER NOTE DATE [...] Vitamins. Illnesses: History of decreased mood. Surgeries: [place] teeth pulled in 2017. FAMILY HISTORY: Noncontributory. [...] understands. Anika Bob M.D. ca Dictated: 06/22/2024 [id number] Transcribed: 06/22/2024 [facility] Comment on above: Result Comment: Elec tronically Signed By: Paulino CORRIGAN, Anika Gomez\.br\Date and Time Signed: 06/25/24 06:47 EST 06-25-2024 [...] there. Anika Bob M.D. ca Dictated: 06/20/2024 [id number] Transcribed: 06/22/2024 [facility] Comment on above: Result Comment: Elec [...] office PP vs her primary OB in [place] and she will follow up in [place]. DC teaching done. Briefly discussed CL measurements and vaginal progesterone with the next . The total time spent on patient discharge today was 25 minutes. -10 minutes of the visit face to face patient care for counseling/coordination of care -15 minutes chart review and documentation Nutrition rescreen completed. Chart reviewed. Patient to be monitored and followed by the diet pharmacy technician trainee. Sylvia Martinez, DT Images from the original note were not included. VAGINAL DELIVERY POST DAY # 1 Luz Ashish, 23 y.o. This patient was seen & [...] FVL+Prothrombin (heterozygous), Antithrombin III, APLS Assessment/Plan: Luz Ashish is PPD # 1 s/p Care - [...] indicated: Pt is doing well. Bboy in [facility]. AFVSS. TIME SPENT ON PATIENT ENCOUNTER TODAY: Chart review and preparation: 10 minutes. Xujw-bg-udzs, documentation, and care coordination: 15 minutes. --> TOTAL= 25 MINUTES Images from the original note were not included. Labor Progress Note Date: 06/23/2024 Time: 4:42 PM Subjective: Luz Hinojosa is a 23 y.o. female at 29w5d admitted for labor Complications: Anxiety SVE : /-[address] Tejada at 1540 GBS: []Pos []Neg [x]Unknown Cx:defer FHP: defer FHT: Cat I [place]: irritable Patient moved over to labor and delivery due to cervical change. Receiving epidural. Will be for repeat cervical exam following epidural process. Continuing magnesium sulfate for neuroprotection and penicillin for GBS prophylaxis done after epidural, unchanged at /-2. Patient comfortable with epidural. Continue to monitor, CCM. Malena Winter DO 06/23/2024 4:58 PM SVE 10. Membranes intact at this time. Will transport to OR at this time. Dr. Ponce updated and en route to hospital. Dr. Carrasco notified of patient for coverage in event of delivery prior to arrival. FHT Cat 1. PRODUCT DIRECTOR notified. Moved to OR for delivery. Delivered. Images from the original note were not included. SVE performed in setting of continued CTX and abdominal pain. SVE unchanged at /3. Will continue to monitor closely. Images from [...] contractions q1-7 on arrival with cervical exam 280/-3 - PCN started for GBS prophylaxis -Decision [...] for tocolysis, adjusted mag to 1g/hr for SALESFORCE DEVELOPER, and started PCN G for GBS prophylaxis. Rescue BMZ course initiated. Today she complains of continued intermittent contractions- some more painful than others. She is without other OB complaints and reports good movement. Vitals: 12/02/24 0900 06/23/24 1100 06/23/24 1150 06/23/24 1300 [...] x 48hrs, mag x 12 hrs for SALESFORCE DEVELOPER, and PCN G for GBS prophylaxis until [...] of care with Dr. Roca on-call for [facility] service and will plan for toco lysis as well as rescue steroids. heart tracing category 1. Will initiate penicillin for GBS prophylaxis as well as de-escalate magnesium to neuroprotection dosing at 1 g/h. Notified patient and patient agreeable to plan. Fetus vertex on bedside ultrasound. ESSION: Pre-Term Labor Pain assessment and plan: None DISCUSSED WITH C PROVIDER: Dr. Roca DISPOSITION: Admit to Antepartum (PNU) Cosigned by Allie Lerma DO at 06/23/2024 12:19 AM EST documented in this encounter [facility] 06-24-2024 Obstetrics Note Baby is in the [...] bf mother's groups after dc. Verbalizes understanding. [facility] 06-24-2024 Note Formatting of this n ote might be different from the original. Date: 06/24/2024 Name: Luz Hinojosa : 2000 [facility] Patient Information Primary Caregiver: Self Accompanied by/Relationship: [...] place to sleep or slept in a fpc (including now)? No Transportation Needs Has the [...] handle your . Avoid crowds, and keep away from sick people, anyone who is [...] Equipment: Developmental Delay: N/A Children's Services: N/A [facility] 06-24-2024 Note Formatting of this n ote might be different from the original. Date: 06/24/2024 Name: Luz Hinojosa : 2000 [facility] Information [place] Patient Information Primary Caregiver: Self Accompanied by/Relationship: [...] place to sleep or slept in a fpc (including now)? No Transportation Needs Has the [...] Equipment: Developmental Delay: N/A Children's Services: N/A [facility] 06-24-2024 Nurse Note Patient up to ambulate for this first time since delivery. Patient able to ambulate to the bathroom independently. Pads and underwear changed. Lazara care performed. Education provided about abnormal signs of bleeding and lazara care. No questions or concerns voiced. Patient ambulated back to bed without difficulty. Call light within reach. [facility] 06-24-2024 Nurse Note Patient up to ambulate for this first time since delivery. Patient able to ambulate to the bathroom independently. Pads and underwear changed. Lazara care performed. Education provided about abnormal signs of bleeding and lazara care. No questions or concerns voiced. Patient ambulated back to bed without difficulty. Call light within reach. documented in this encounter [facility] 06-23-2024 Labor and delivery summary note Images from the original note were not included. Vaginal Delivery Note Department of Obstetrics and Gynecology Patient: Luz Hinojosa : 2000 Date of delivery: 06/23/2024 Pre-operative Diagnosis: Luz Hinojosa at 29w5d 1. labor 2. Anxiety Post-operative Diagnosis: Live Born male Delivering Locker Room Clerk & Sagger Maker(s): Dr. Ponce; Dr. Adams Infant Information: Information for the patient's : Onesimo Hinojosa [[id number]] Information for the patient's : Onesimo Hinojosa [[id number]] Description: normal Meconium Noted: No Anesthesia: epidural anesthesia Complications: None Application and Delivery: Luz Hinojosa at 29w5d admitted for threatened labor as a transfer from [place]. She progressed with cervical dilation despite tocolysis. [...] attended by the RN for evaluation. The infant was stimulated and dried. The cord was [...] : 06/23/24 0749 - 06/23/242132 Delivery Admission: 06/22/241831 - 06/23/242132 Intrapartum & Delivery Admission Quantitative Blood Loss (mL) Hospital Encounter 50 mL 50 mL Total 50 mL 50 mL Quantitative Blood Loss: 50 mL Onesimo Hinojosa [[id number]] Labor Events labor?: Yes steroids: Full Course [...] maneuver: Delivery of posterior arm: clavicular fracture: Doryvanelli maneuver: Delivery Details Forceps attempted?: No Vacuum extractor attempted?: No Forceps Details: Vacuum Details: Cord Vessels: 3 vessels Complications: None Delayed cord clamping?: Yes Placenta Date/time: 06/23/2024 7:57 PM Removal: Spontaneous Appearance: Intact Comment: to NICU Delivery (Maternal) Episiotomy: None Perineal lacerations: None Other lacerations: no non-perineal laceration Repair suture: None Vaginal Counts 4x4 [place] [employer] Lap Pads Sponges Initial counts Interim counts Final counts 17 2 Final count personnel: FLORES Final count verified by: VIRGINIA Accurate final count?: Yes Blood Loss Mother: Luz Hinojosa #[id number] Start of Mother's Information Delivery Blood Loss Intrapartum & : 06/23/24 0749 - 06/23/242132 Delivery Admission: 06/22/24 1832 - 06/23/243 Intrapartum & Delivery Admission Quantitative Blood Loss (mL) Hospital Encounter 50 mL 50 mL Total 50 mL 50 mL End of Mother's Information Mother: Luz Hinojosa #[id number] Delivery Providers Delivering clinician: Jenny Ponce MD Provider Role Consulting Physician Malu Adams MD Delivery Assist Judie Ochoa RN Delivery Nurse Moriah Oreilly, ROXI [place] Nurse Trudi Argueta, OFFICE HELPER - CHEESE COOK Nurse Practitioner Luci Raamchandran RN NICU Nurse Shavonne Meade RCP Respiratory Therapist Nurse Statistician Applied Scrub Nurse Fab Alexis, UR COORDINATOR Nurse Emily Teresa MD [place] Assessment Living status: Living Scoring Ward: 0 [...] Skin Reason skin to skin not initiated: [place] Acuity [place] Disposition Handoff Immediately at : To warmer with NICU staff: Yes Malu Aadms MD Cosigned by Jenny Ponce MD at 06/25/2024 10:09 AM EST Associated attestation - Jenny Ponce MD - 06/25/2024 10:09 AM EST Procedures or Surgery: I was present for all ward elements of the procedure or surgery as described in the resident note. [facility] 06-23-2024 Plan of care note Problem: Antepartum Goal: Maintain as long as maternal and/or condition is stable 06/23/20242101 by Judie Ochoa RN Outcome: Completed 06/23/20242035 by Judie Ochoa RN Outcome: Progressing [facility] 06-23-2024 Note Labor Progress Note Date: 06/23/2024 Time: 4:42 PM Subjective: Luz Hinojosa is a 23 y.o. female at 29w5d admitted for labor Complications: Anxiety SVE : /-[address] Tejada at 1540 GBS: []Pos []Neg [x]Unknown Cx:defer FHP: defer FHT: Cat I [place]: irritable Patient moved over to labor and delivery due to cervical change. Receiving epidural. Will be for repeat cervical exam following epidural process. Continuing magnesium sulfate for neuroprotection and penicillin for GBS prophylaxis done after epidural, unchanged at /-2. Patient comfortable with epidural. Continue to monitor, CCM. Malena Leydi Moy, DO 06/23/2024 4:58 PM SVE . Membranes intact at this time. Will transport to OR at this time. Dr. Ponce updated and en route to hospital. Dr. Carrasco notified of patient for coverage in event of delivery prior to arrival. FHT Cat 1. PRODUCT DIRECTOR notified. Moved to OR for delivery. Delivered. [facility] 06-23-2024 Note Epidural Block Time Out: 06/23/2024 4:20 PM Patient location during procedure: OB Start time: 06/23/2024 4:24 PM End time: 06/23/2024 4:35 PM Reason for block: labor analgesia Staffing Performed: LOSS PREVENTION SUPERVISOR Resident/LOSS PREVENTION SUPERVISOR: Juan Rodriguez APRN - CHEPE Preanesthetic Checklist Completed: patient identified, IV checked, [...] negative Medications Administered lidocaine-EPINEPHrine (Xylocaine W/EPI) 1.5 %-1:[id number] injection - Epidural 3 mL - 06/23/2024 4:27:00 PM ropivacaine (Naropin) 0.2 % epidural bolus - Epidural 10 mL - 06/23/2024 4:30:00 PM Assessment Block outcome: pain improved Procedure assessment: patient tolerated procedure well with no immediate complications Additional Notes [facility] Note Patient: Luz garcia Procedure Information Date: 06/23/24 Procedure: Labor Analgesia Relevant Problems No relevant active problems Clinical information reviewed: Tobacco Allergies Meds Med Hx Surg Hx Fam Hx Soc Hx Physical Exam Airway Mallampati: II TM distance: >3 FB Neck ROM: full Mouth Open: normalendotracheal tube not in place Cardiovascular Dental dentition normal Pulmonary Abdominal supervisor steno pool Evaluation Anesthesia Plan patient is NPO appropriate Any family history or previous problems with anesthesia no ASA 2 epidural Any family history or previous problems with anesthesia no The patient is not a current smoker. Anesthetic plan and risks discussed with patient. Use of blood products discussed with who consented to blood products. Additional Equipment Requests [facility] 06-23-2024 Note Formatting of this n ote [...] labor floor and patient may request epidural. PRODUCT DIRECTOR updated and aware. [employer] Phone: 06-23-2024 Note Formatting of this n [...] labor floor and patient may request epidural. PRODUCT DIRECTOR updated and aware. [facility] Phone: 06-23-2024 Note Formatting of this n ote might be different from the original. Date: 06/23/2024 Name: Luz Hinojosa : 2000 [facility] Patient Information Primary Caregiver: Self [...] place to sleep or slept in a fpc (including now)? No Transportation Needs Has the [...] N/A Developmental Delay: N/A Children's Services: N/A [facility] 06-23-2024 Note Formatting of this n ote might be different from the original. Date: 06/23/2024 Name: Luz Hinojosa : 2000 [facility] Information [facility] Patient Information Primary Caregiver: Self Accompanied [...] place to sleep or slept in a fpc (including now)? No Transportation Needs Has the [...] N/A Developmental Delay: N/A Children's Services: N/A [facility] 06-23-2024 Consult note Associated Order (s): IP [...] Spent 40 minutes. Emily Teresa MD, 06/23/2024 [employer] Work Phone: 06-23-2024 Consult note Associated Order (s): [...] Teresa MD, 06/23/2024 documented in this encounter [facility] 06-23-2024 Note Discharge Instructio ns Given Worsening The following Patient Education Materials have been given to the patient: ~~ EducationMaterial [facility] 06-23-2024 Plan of care note Problem: Antepartum Goal: Maintain as long as maternal and/or condition is stable Outcome: Progressing Flowsheets (Taken 06/22/20242199) Maintain as long as maternal and/or condition is stable: Maternal surveillance director of regional sales uterine activity Medications as ordered Problem: Pain [...] fall injury: Instruct family/caregiver on patient safety [facility] 06-22-2024 History and physical note Department of [...] She was initially noted to be tight 250/-3 and given terbutaline, IR procardia x1, magnesium sulfate therapy. Contractions persisted irregularly and was transferred for higher level of care -On initial exam on arrival, patient was comfortable appearing, contractions irregular q1-7 with cervical exam 280/-3 -PCN started for GBS prophylaxis -Decision made [...] patient was admitted overnight while I was contact lens edge buffer. I discussed the assessment and management with the resident physician. I reviewed and agree with the findings and plan as documented in the note. Transfer for PTL. Agree with procardia, mag, BMZ and GBS prophylaxis. Juliet Roca MD [facility] 06-22-2024 Note Attestation signed by Juliet Roca MD at 06/23/2024 1:47 PM Attending Supervising Physician's Attestation Statement This patient was admitted overnight while I was contact lens edge buffer. I discussed the assessment and management with [...] >= 72 wing (more content not included)... [facility] 06-22-2024 History and physical note [...] patient was admitted overnight while I was contact lens edge buffer. I discussed the assessment and management with the resident physician. I reviewed and agree with the findings and plan as documented in the note. Transfer for PTL. Agree with procardia, mag, BMZ and GBS prophylaxis. Juliet Roca MD documented in this encounter [facility] 06-21-2024 Note Discharge Instructio ns Given Worsening The following Patient Education Materials have been given to the patient: ~~ EducationMaterial [facility] 06-21-2024 Hospital Discharge instructions Follow Up Care 06/21/2024 16:35:03 With:Anika Bob Address: [address] [place] [address] [place], [place] [phone] (1) When:06/23/2024 Comments:Call for any problems.Call for fever > 100.5 FCall for severe abdominal painCall physician if symptoms worsenReturn for decreased movementCall Dr. for more than 3 contractions in an hourReturn if ruptured membranes or vaginal bleedingPelvic restPick up prescription for antibiotic in am at [facility] current appt scheduled for SundayJun 23. [facility] 06-21-2024 Evaluation + Plan note Diagnostic Tests PendingUrine Culture 06/21/[address] [facility] 06-13-2024 Evaluation + Plan note Diagnostic Tests PendingRPR with Conf Rfx 06/13/[address] [facility] 06-06-2024 Note History and Physical HOSPITAL [...] observation. Anika Bob M.D. james Dictated: 06/05/2024 [id number] Transcribed: 06/05/2024 [facility] Comment on above: Result Comment: Elec tronically Signed By: Paulino CORRIGAN, Anika Gomez\.br\Date and Time Signed: 06/06/24 08:54 EST 06-05-2024 Note Discharge Instructio ns Given Worsening The following Patient Education Materials have been given to the patient: ~~ EducationMaterial [facility] 06-03-2024 Hospital Discharge instructions Follow Up Care 06/03/2024 20:09:12 With:Dr. Bbo [phone] Address:Unknown When:3 to 4 days Comments:Call for any problems.Call physician for heavy vaginal bleedingCall physician if symptoms worsenReturn for contractions closer, longer, harderReturn for decreased movement [facility] 10-10-2023 History of Present illness Narrative [...] up as before documented in this encounter [facility] Work Phone: 09-22-2023 Evaluation + Plan note Diagnostic Tests PendingAnti-Mullerian Hormone (AMH) 09/22/23FSH and LH 09/22/23Insulin Level Total 09/22/[address] [facility] 08-21-2023 History of Present illness Narrative [...] Procedure Laterality Date OTHER SURGICAL HISTORY 03/03/2022 [place] tooth extraction Review of Systems: Constitutional: No [...] Dose Status busPIRone (Buspar) 5 mg tablet [id number] No Take by mouth 3 times a day as needed. Historical Provider, Taking Active citalopram (CeleXA) 40 mg tablet [id number] Take 1 tablet (40 mg) by mouth once daily. MYKE Amaya Active nitrofurantoin (Macrodantin) 100 mg capsule [id number] No take 1 capsule twice a day for 3 to 7 days Historical Provider, Taking Active omeprazole (PriLOSEC) [address] capsule [id number] No Take 1 capsule (20 mg) by [...] 08/21/2024 Order Specific Question: Release result to [facility] Answer: Immediate [1] Problem List Items Addressed [...] for annual exam. documented in this encounter [facility] Work Phone: 06-19-2023 Emergency department Note HPI [...] Procedure Laterality Date OTHER SURGICAL HISTORY 03/03/2022 [place] tooth extraction Family History Problem Relation Name [...] López PA-C 06/19/231810 documented in this encounter [facility] Work Phone: 06-19-2023 Physician Emergency department Note [...] Procedure Laterality Date OTHER SURGICAL HISTORY 03/03/2022 [place] tooth extraction Family History Problem Relation Name [...] health. Procedure Procedures Bela López PA-C 06/19/231810 [facility] Work Phone: 05-18-2023 History of [...] up as before documented in this encounter [facility] Work Phone: 04-23-2023 History of Present illness [...] mon with PCP. documented in this encounter [facility] Work Phone: 04-11-2023 Note Send Summary: Discharge Summary Providers: Provider RoleProvider Name Bautista Foy Logeswari PrimaryConley, Amy PrimaryMcArdle, Joyce Note Recipients: Jordyn Thakur APRNBELCHERTOWN STATE SCHOOL FOR [facility] - [phone] [Preferred] Discharge: Summary: Admission Date: .09-Apr-2023 10:40:00 Discharge Date: 11-Apr-2023 Attending Physician at Discharge: Bautista villanueva Admission Reason: Flank pain Final Discharge Diagnoses: Pyelonephritis, acute kidney injury Procedures: none Vital Signs: T PRBPMAPSpO2 Value36.89541120/658594% Date/Time04/11 8: 8: 8: 8: 16: 8:00 Range(36.6C - 37.6C ) (70 - 81 ) (16 - 18 ) (107 - 122 )/ (70 - 84 ) (82 - 85 ) (98% - 99% ) Highest temp of 37.6 C was recorded at 04/11 0:00 Date: Weight/Scale Type:Height: 09-Apr-2023 15:5454 kg / cdx710.1 cm Physical Exam: General: Not in acute [...] if there are errors there due to machine oiler. Bautista Villanueva Hospitalist Discharge Information: and Continuing [...] injuryCall to Schedule in: 1 weekLocation: Felisha Denialinh [place]. Jhjeguxe: She will call and make her own appointment. [facility] 04-09-2023 Note History of Present I llness: [...] are negative Objective: Objective Information: T PRBPMAPSpO2 Value36.59314178/8897% Date/Time04/09 10:409/18 14:12918 14:12918 14:12918 14:12 Range(36.5C - 36.5C ) (69 - 81 ) (16 - 16 ) (123 - 133 )/ (88 - 96 ) (97% - 97% ) Pain reported at 04/09 10:48: 3 = Mild T PRBPMAPSpO2 [id number]/397867% Date/Time04/09 16: 16: 16: 16: 16: 16:00 [...] content not included)... [facility] 10-03-2022 History of Present illness Narrative [...] 13-18 <7.5 7-12 <8.0 0- 6 7.5-8.5 [place] [employer]. Diabetes Care 33(S1), Jul 2009. Assessment/Plan Problem List Items Addressed This Visit None documented in this encounter [facility] Work Phone: 04-25-2022 History of Present illness Narrative [facility] [address] [facility] [address] [facility] [id number] Chief Complaint Patient presents with Left Hand [...] Strength Wrist extension: 5/5 Wrist flexion: 5/5 Business Line Manager: 3/5 Other Erythema: absent Scars: absent Sensation: [...] medications as needed. documented in this encounter [facility] 03-02-2022 History of Present illness Narrative [...] BACK MONTHLY..WEIGHT GAIN. [facility] Work Phone: 11-20-2021 History [...] STABLE. MED REFILL [facility] Work Phone: Evaluation note Diagnosis Closed nondisplaced fracture of distal phalanx of left middle finger, initial encounter- [facility] Vaginal yeast infection- Primary Candidiasis of vulva and vagina documented in this encounter [facility] Work Phone: Evaluation note* Diagnosis H/O urinary tract infection- Primary Generalized anxiety disorder with panic attacks documented in this encounter [facility] Work Phone: Evaluation note* Diagnosis Urinary frequency- Primary Urinary tract infection with hematuria, site unspecified Generalized anxiety disorder with panic attacks Gastroesophageal reflux disease without esophagitis Esophageal reflux documented in this encounter [facility] Work Phone: Evaluation note* Diagnosis Urinary tract infection without hematuria, site unspecified- Primary documented in this encounter [facility] Work Phone: Evaluation note* Diagnosis Family planning counseling- Primary Other general counseling and advice for contraceptive management documented in this encounter [facility] Work Phone: Evaluation note* Diagnosis Generalized anxiety disorder with panic attacks- Primary documented in this encounter [facility] Work Phone: Evaluation note* Diagnosis Nausea- Primary Nausea alone Nasal congestion Other diseases of nasal cavity and sinuses Acute non-recurrent sinusitis, unspecified location documented in this encounter [facility] Work Phone: Evaluation note* Diagnosis Generalized anxiety disorder with panic attacks documented in this encounter [facility] Work Phone: Evaluation note* Diagnosis Sore throat- Primary Acute pharyngitis documented in this encounter [facility] Work Phone: Evaluation note* Diagnosis contractions- Primary [facility] Pharyngitis, unspecified etiology- Primary documented in this encounter [facility] Work Phone: History of Present illness Narrative* Jordyn Thakur, OFFICE HELPER-CHEESE COOK - 10/20/2022 3:00 PM EDT Subjective Patient [...] Follow up as before [facility]: History of Present illness Narrative* [...] 1 MONTH MED CHECK [facility]: History of Present illness Narrative* [...] Follow up as before [facility]: History of Present illness Narrative* [...] PROCEDURE REFERRAL WILL CALL [facility]: Hospital course Narrative No data available for this [facility] No data available for this section [facility] No data available for this section [facility] HospitalReason for referral (narrative)* Consultation (Routine) - Pending Review Specialty Diagnoses / Procedures Referred By Contac t Referred To Contact Obstetrics and Gynecology / Urology Diagnoses Urinary frequency Jordyn Thakur, FATEMEH-CHEESE COOK [address] [place] [address] Referral ID Status Reason Start Date Expiration Date Visits Requested Visits Authorized [id number] Pending Review Specialty Services Required 05/17/2024 1 1 Electronically signed by Jordyn Thakur [facility] at 05/18/2023 10:53 AM EDT [facility] Work Phone: Reason for referral (narrative)* Consultation (Routine) - Authorized Specialty Diagnoses / Procedures Referred By Contac t Referred To Contact Primary Care Procedures Follow Up In Primary Care Dominick Lewis MD [address] [place] [address] Referral ID Status Reason Start Date Expiration Date V isits Requested Visits Authorized [id number] Authorized 10/03/2022 04/01/2023 1 1 [facility] Work Phone: Summary Purpose Family History No [...] anxiety disorder with panic attacks Jordyn Thakur, OFFICE HELPER-CHEESE COOK [address] [place] [address] Referral ID Status Reason Start Date Expiration Date Visits Re quested Visits Authorized [id number] Closed 1 1 Additional Source Comments INFORMATION SOURCE (unrecogn ized section and content) DATE CREATED AUTHOR 10/28/2018 [facility] DATE CREATED AUTHOR AUTHOR'S ORGANIZ ATION 04/08/2019 [facility] DATE CREATED AUTHOR AUTHOR'S ORGANIZ ATION 10/29/2021 [facility] DATE CREATED AUTHOR AUTHOR'S ORGANIZ ATION 06/11/2022 [facility] DATE CREATED AUTHOR AUTHOR'S ORGANIZ ATION 08/04/2022 [facility] DATE CREATED AUTHOR AUTHOR'S ORGANIZ ATION 04/02/2023 [facility] DATE CREATED AUTHOR AUTHOR'S ORGANIZ ATION 04/16/2023 [facility] DATE CREATED AUTHOR AUTHOR'S ORGANIZ ATION 05/09/2023 [facility] DATE CREATED AUTHOR AUTHOR'S ORGANIZ ATION 09/03/2023 [facility] DATE CREATED AUTHOR AUTHOR'S ORGANIZ ATION 11/02/2023 [facility] DATE CREATED AUTHOR AUTHOR'S ORGANIZ ATION 01/11/2024 [facility] DATE CREATED AUTHOR AUTHOR'S ORGANIZ ATION 01/13/2024 [facility] DATE CREATED AUTHOR AUTHOR'S ORGANIZ ATION 02/08/2024 [facility] DATE CREATED AUTHOR AUTHOR'S ORGANIZ ATION 02/09/2024 [facility] DATE CREATED AUTHOR AUTHOR'S ORGANIZ ATION 02/10/2024 [facility] DATE CREATED AUTHOR AUTHOR'S ORGANIZ ATION 02/11/2024 [facility] DATE CREATED AUTHOR AUTHOR'S ORGANIZ ATION 05/08/2024 [facility] DATE CREATED AUTHOR AUTHOR'S ORGANIZ ATION 06/06/2024 [facility] DATE CREATED AUTHOR AUTHOR'S ORGANIZ ATION 06/16/2024 [facility] DATE CREATED AUTHOR AUTHOR'S ORGANIZ ATION 06/17/2024 [facility] DATE CREATED AUTHOR AUTHOR'S ORGANIZ ATION 06/18/2024 [facility] DATE CREATED AUTHOR AUTHOR'S ORGANIZ ATION 06/20/2024 [facility] DATE CREATED AUTHOR AUTHOR'S ORGANIZ ATION 06/21/2024 [facility] DATE CREATED AUTHOR AUTHOR'S ORGANIZ ATION 06/22/2024 [facility] DATE CREATED AUTHOR AUTHOR'S ORGANIZ ATION 06/23/2024 [facility] DATE CREATED AUTHOR AUTHOR'S ORGANIZ ATION 06/25/2024 [facility] DATE CREATED AUTHOR AUTHOR'S ORGANIZ ATION 06/26/2024 [facility] DATE CREATED AUTHOR AUTHOR'S ORGANIZ ATION 06/26/2024 [facility] DATE CREATED AUTHOR AUTHOR'S ORGANIZ ATION 08/22/2024 [facility] DATE CREATED AUTHOR AUTHOR'S ORGANIZ ATION 10/12/2024 [facility] <item><item><item><item><item> Privacy [...] YESTERDAY. CURRENTLY Reason Comments Laboring Transfer from [facility] Specialty Diagnoses / Procedures Referred By Contac t Referred To Contact Diagnoses contractions Procedures . Juliet Roca MD [address] [place] [address] Phone: tel: fax: [facility] [address] [place] [address] Phone: tel: Referral ID Status Reason Start Date Expiration Date Visits Re quested Visits Authorized [id number] 1 1 Reason Comments Follow-up Pt co sore throat wa s tested foor strep in er was negative but no better has headache Care Teams (unrecognized sec tion and content) Door Operator Relationship Specialty Start Date End Date Jordyn Ramirez, CHEESE COOK [address] [place] [address] PCP - General Nurse Practitioner 04/25/22 Door Operator Relationship Specialty Start Date End Date Jordyn Thakur, OFFICE HELPER-CHEESE COOK [address] [place] [address] PCP - General 03/03/22 Door Operator Relationship Specialty Start Date End Date Jordyn Thakur, OFFICE HELPER-CHEESE COOK [address] [place] [address] PCP - General 03/03/22 Jordyn Thakur, OFFICE HELPER-CHEESE COOK [address] [place] [address] PCP - [facility] Medicaid PCP 10/21/22 Claudia Quick, hot metal crane operatorAccounts Specialist 04/12/23 Door Operator Relationship Specialty Start Date End Date Jordyn Thakur, OFFICE HELPER-CHEESE COOK [address] [place] [address] PCP - General 03/03/22 Jordyn Thakur, OFFICE HELPER-CHEESE COOK [address] [place] [address] PCP - [facility] Medicaid PCP 10/21/22 Claudia Quick, hot metal crane operatorAccounts Specialist 04/12/23 Door Operator Relationship Specialty Start Date End Date Jordyn Thakur, OFFICE HELPER-CHEESE COOK [address] [place] [address] PCP - General 03/03/22 Jordyn Thakur, OFFICE HELPER-CHEESE COOK [address] [place] [address] PCP - [facility] Medicaid PCP 10/21/22 Claudia Quick, hot metal crane operatorAccounts Specialist 04/12/23 Door Operator Relationship Specialty Start Date End Date Jordyn Thakur, OFFICE HELPER-CHEESE COOK [address] [place] [address] PCP - General 03/03/22 Jordyn Thakur, OFFICE HELPER-CHEESE COOK [address] [place] [address] PCP - [facility] Medicaid PCP 10/21/22 Door Operator Relationship Specialty Start Date End Date Jordyn Thakur, OFFICE HELPER-CHEESE COOK [address] [place] [address] PCP - General 03/03/22 Jordyn Thakur, OFFICE HELPER-CHEESE COOK [address] [place] [address] PCP - [facility] Medicaid PCP 10/21/22 Door Operator Relationship Specialty Start Date End Date Jordyn Thakur, OFFICE HELPER-CHEESE COOK [address] [place] [address] PCP - General 03/03/22 Jordyn Thakur, OFFICE HELPER-CHEESE COOK [address] [place] [address] PCP - [facility] Medicaid PCP 10/21/22 Door Operator Relationship Specialty Start Date End Date Jordyn Thakur, OFFICE HELPER-CHEESE COOK [address] [place] [address] PCP - General 03/03/22 Jordyn Thakur, OFFICE HELPER-CHEESE COOK [address] [place] [address] PCP - [facility] Medicaid PCP 10/21/22 Door Operator Relationship Specialty Start Date End Date Jordyn Thakur, OFFICE HELPER-CHEESE COOK [address] [place] [address] PCP - General 03/03/22 Jordyn Thakur, OFFICE HELPER-CHEESE COOK [address] [place] [address] PCP - [facility] Medicaid PCP 01/21/24 Door Operator Relationship Specialty Start Date End Date Jordyn Thakur, OFFICE HELPER-CHEESE COOK [address] [facility] [place] [address] PCP - General 03/03/22 Scheduled Active and [...] mg IR dose)0609 (Given - Provider: Tasneem Medrano RN)1150 (Given - Provider: Amy Holder RN) penicillin G potassium IVPB 2.5 million units [...] Tasneem Medrano RN)0637 (Stopped - Provider: Tasneem Medrano RN)1004 (New Bag - Provider: Amy Holder, ROXI)1034 (Due: Stopped - Provider: Amy Holder RN)1400 (New Bag - Provider: Amy Holder RN)1430 (Stopped - Provider: Tanika Whitmore RN)1833 (New Bag - Provider: Alyce Márquez RN)1903 [...] Holder RN)2100 (Not Given - Provider: Judie Ochoa RN - Reason: IV Fluids Infusing) Continuous Medication [...] RN)1900 (Rate/Dose Verify - Provider: Judie Ochoa RN)1954 (Stopped - Provider: Judie Ochoa RN) 034 (Due: Stopped - Provider: Tanika Whitmore RN) [...] to 250cc/hr for 1 hour. Then discontinue. 1211 (Rate/Dose Change - Provider: Judie Ochoa RN)1956 [...] 1635 (New Bag - Provider: Juan Rodriguez, OFFICE HELPER - LOSS PREVENTION SUPERVISOR)2004 (Stopped - Provider: Judie Ochoa RN) PRN [...] the sequence. 2325 (Given - Provider: Luis Diaz, ROXI) 0557 (Given - Provider: Odalis Zelaya, RN)1436 (Given - Provider: Lindy Lindsay, ROXI)2009 (Given - Provider: Sarah Mata, ROXI) benzocaine 20% containing (Dermoplast) spray Topical, As needed, pain, , Starting on 06/23/24 at 2315, , Apply to perineal area. Patient is capable and may self administer at bedside. 2325 (Given - Provider: Luis Diaz RN) docusate sodium (Colace) capsule 100 mg 100 mg, Oral, 2 times daily PRN, constipation, Vaginal Delivery, Starting on Sun06/23/24 at 2315, Do not crush or break. 828 (Given - Provider: Lindy Lindsay, ROXI)2009 (Given - Provider: Sarah Mata, ROXI) 0835 (Given - Provider: Fatoumata Cutler RN) famotidine [...] 6 hours PRN, nausea, vomiting, Starting on Sun06/23/24 at 2315, 1st Line. Give IV if [...] capable and may self administer at bedside. 232 (Given - Provider: Luis Diaz, RN) No Frequency Medication Order 06/23/2024 06/24/2024 06/25/2024 mineral oil liquid - Pyxis ADS Override Pull (COMPLETED) Starting on Sun06/23/24 at 1944, For 1 dose, Yonis Aponte: cabinet override 194 (Given by Other - Provider: Judie Ochoa [...] 6 hours PRN, nausea, vomiting, Starting on Sun06/23/24 at 2315, 1st Line. Give IV if [...] BE BASED ON THE PRIMARY CLINICAL RECORDS. No Paper [employer] [facility]. provides no warranty or guarantee of the accuracy or completeness of information in this document.
--- NOTE | 2024-10-19 22:56 | ED.FEMALEGU1 ---
HPI - Female Genitourinary General Chief complaint: Urogenital-Female Stated complaint: UTI Time Seen by Provider: 10/19/24 22:38 Source: patient Mode of arrival: walk-in Limitations: no limitations History of Present Illness HPI Narrative: This 23-year-old female presents for evaluation of urinary frequency urgency and dysuria. Her symptoms started 2 hours ago. She states she was trying to find some Pyridium or Azo at home but did not have any. She denies any fevers or chills. She denies the possibility of . She is not breast-feeding. She denies any vaginal discharge odor or itching or any concerns for STDs. She has no flank pain or abdominal pain. She states she used to get a lot of urinary tract infections before getting . She thinks that she was on Keflex in the past that did not work for her and she ended up getting a kidney infection. Related Data Previous Rx's ?Medication ?Instructions ?Recorded lidocaine HCl 2 % mucosal solution 1 applic mucous membrane Q8H PRN 09/21/24 (Lidocaine Viscous) pain 7 days #100 mL Allergies Allergy/AdvReac Type Severity Reaction Status Date / Time paxil Allergy Mild Insomnia Uncoded 10/19/24 22:44 clonidine Allergy hives Uncoded 10/19/24 22:44 Review of Systems ROS Status of ROS 10 or more systems reviewed and unremarkable except as noted in history and below [facility] Medical History (Updated 10/19/24 @ 23:05 by Geri Andrews MD) GERD (gastroesophageal reflux disease) ?K21.9 - Gastro-esophageal reflux disease without esophagitis (ICD-10) Anxiety ?F41.9 - Anxiety disorder, unspecified (ICD-10) Social History Little interest or pleasure in doing things: not at all Feeling down, depressed, or hopeless: not at all Exam Narrative Exam Narrative: Vital signs and Nursing Notes reviewed: Patient is afebrile, she is mildly tachycardic with a pulse of 107, she has normal blood pressure, she is not hypoxic with pulse ox of 99% on room air General: Awake, alert, oriented, no acute distress, lying comfortably on the stretcher HEENT: Normocephalic atraumatic, mucous membranes are moist and pink, eyes are clear, normal conjunctiva, vision is grossly intact Chest: Lungs are clear to auscultation with good air entry, there is no wheezing rhonchi or rales appreciated no accessory muscle use, patient is speaking in complete sentences-no chest wall tenderness to palpation CVS: Regular rate and rhythm S1-S2, no murmurs rubs or gallops, pulses are brisk and equal bilaterally ABD: Soft, nondistended, nontender, no rebound guarding or rigidity, bowel sounds are normal, no pulsatile masses appreciated, no CVA tenderness Extremities: Moving all extremities, no lower extremity tenderness or swelling noted Skin: Normal in appearance without rash,pallor, petechiae or purpura Neuro: No focal deficits Constitutional Vital Signs, click to edit/add: Last Vital Signs Temp 97.7 F 10/19/24 22:40 Pulse 107 H 10/19/24 22:40 Resp 16 10/19/24 22:40 BP 121/81 10/19/24 22:40 Pulse Ox 99 10/19/24 22:40 O2 Del Method Room Air 10/19/24 22:40 Course Vital Signs Vital signs: Vital Signs Temperature 97.7 F 10/19/24 22:40 Pulse Rate 107 H 10/19/24 22:40 Respiratory Rate 16 10/19/24 22:40 Blood Pressure 121/81 10/19/24 22:40 Pulse Oximetry 99 10/19/24 22:40 Oxygen Delivery Method Room Air 10/19/24 22:40 Temperature 97.7 F 10/19/24 22:40 Pulse Rate 107 H 10/19/24 22:40 Respiratory Rate 16 10/19/24 22:40 Blood Pressure 121/81 10/19/24 22:40 Pulse Oximetry 99 10/19/24 22:40 Oxygen Delivery Method Room Air 10/19/24 22:40 MDM - Female Genitourinary MDM Narrative Medical decision making narrative: This 23-year-old female presents for evaluation of urinary symptoms including frequency urgency and dysuria. She has had urinary tract infections in the past and thinks that Keflex did not work for her and while on Keflex she developed a kidney infection. Her symptoms started approximately 2 hours prior to arrival. She was looking at her house for Azo or Pyridium but did not have any available. She denies any fevers or chills. She has no abdominal pain or flank pain. She denies the possibility of and is not breast-feeding. She is drinking water in the emergency department without difficulty. Urine is positive for red blood cells and 20-50 white blood cells per high-power field and small bacteria, negative for nitrites.. Culture is pending. She was medicated with a dose of Cipro, Zofran and Pyridium and will be discharged home with a morning dose of Cipro and Pyridium. She will be discharged home with prescriptions for Cipro and Pyridium with recommendation for copious clear liquid intake and return to the emergency department for fevers, chills, flank pain or any concerns. Lab Data Attestation: I reviewed the patient's lab results. Labs: Lab Results 10/19/24 Range/Units 22:50 Urine Color Yellow (YELLOW) Urine Clarity Clear (CLEAR) Urine pH 6.0 (5.0-9.0) Ur Specific [place] >=1.030 A (1.005-1.025) Urine Protein 30 A (NEG/TRACE) mg/dL Urine Glucose (UA) Negative (NEGATIVE) mg/dL Urine Ketones Negative (NEGATIVE) mg/dL Urine Occult Blood Large A (NEGATIVE) Urine Nitrite Negative (NEGATIVE) Urine Bilirubin Negative (NEGATIVE) Urine Urobilinogen 0.2 (0.2-1.0) EU/dL Ur Leukocyte Esterase Negative (NEGATIVE) Urine RBC 5-10 A (0-2) #/HPF Urine WBC 20-50 A (NONE SEEN) #/HPF Ur Squamous Epith Cells Moderate A (NONE/RARE) #/LPF Urine Crystals None seen (None Seen) #/HPF Urine Bacteria Small A (NONE SEEN) #/HPF Urine Casts None seen (NONE SEEN) #/LPF Urine Mucus Small A (NONE SEEN) Ur Culture Indicated? Yes-[facility] Discharge Plan Discharge Chief Complaint: Urogenital-Female Clinical Impression: Urinary tract infection Patient Disposition: Home, Self-Care Time of Disposition Decision: 23:05 Condition: Good Prescriptions / Home Meds: No Action lidocaine HCl [Lidocaine Viscous] 2 % solution 1 applic mucous membrane Q8H PRN (Reason: pain) 7 Days Qty: 100 0RF Print Language: Mozambican Instructions: Urinary Tract Infection in Women (DC) Referrals: Physician,Non-Staff, MD [Primary Care Provider] - 1 week
[2024-10-19 22:58] LABS: Bilirubin Urine NEGATIVE (NEGATIVE); Blood Urine LARGE (NEGATIVE); Clarity Urine CLEAR (CLEAR); Color Urine YELLOW (YELLOW); Glucose Urine UA NEGATIVE (NEGATIVE); Ketones Urine NEGATIVE (NEGATIVE); Leukocyte Esterase Urine NEGATIVE (NEGATIVE); Nitrite Urine NEGATIVE (NEGATIVE); Protein Urine 30 mg/dL (NEG/TRACE); Specific Gravity Urine >=1.030 (1.005-1.025); Urobilinogen Urine 0.2 EU/dL (0.2-1.0)
[2024-10-19 23:09] LABS: Bacteria Urine SMALL #/HPF (NONE SEEN); Cast Seen? NONE SEEN #/LPF (NONE SEEN); Crystals Seen? None Seen #/HPF (None Seen); Mucus Urine SMALL (NONE SEEN); Squamous Epithelial Cell Urine MODERATE #/LPF (NONE/RARE)
[2024-10-19 23:10] LABS: Urine Culture Indicated YES-FRMC; WBC Urine 20-50 #/HPF (NONE SEEN)
[2024-10-19] MEDS: PHENAZOPYRIDINE 100 MG TABLET 200 MG PO ×2 (23:17→23:35)
[2024-10-19] MEDS: ONDANSETRON 4 MG RAPDIS TABLET SL (23:18)
[2024-10-19] MEDS: CIPROFLOXACIN HCL 500 MG TABLET PO ×2 (23:19→23:22)
--- NOTE | 2024-10-22 14:28 | PC.NURSE ---
10/22/24 1428: No further treatment for final Urine Culture per MERISSA FRAGA / RN AK
== END 2024-10-20 01:08 | disposition home or self-care (01) ==
PROVIDERS: Emergency Provider Emergency Medicine; PCP Nurse Practitioner Family
DX: N39.0 Urinary tract infection, site not specified (principal); Z87.440 Personal history of urinary (tract) infections
CPT/HCPCS: 81001; 87086; 87150; 87186; 99284; Q0162

== ENCOUNTER 2024-10-29 20:09 | Emergency (ER) | payer OTHER, SELFPAY ==
--- OUTSIDE RECORDS SUMMARY | 2024-10-29 20:17 | XMS_ITS | CCD ---
Author Organization [facility] CliniSyut Care Team Providers Care Hand Developer Name Role Phone Page Adan Primary Care [...] Page Adan Unavailable Alie Rodriguez Unavailable Unavailable Ashley Jordyn D Unavailable Unavailable Unavailable Jordyn Ramirez CNP Primary Care Provider [phone] JOSELIN NOYOLA Referring Unavailable JOSELIN NOYOLA Admitting [...] Pelaez Unavailable Unavailable Fried, Jocelyne Unavailable Unavailable Simon MOBILE CRANE OPERATOR-KARLENE, Jordyn Gomez Primary Care Provider Alie Flor Unavailable Unavailabl e RAMIREZ, JORDYN ARIE Primary Care Unavailable STANLEY QUILES Attending Unavailable STANLEY QUILES Attending Unavailable KALE, DOMINICK JAKEM Primary Care Unav ailable ASHLEY, JORDYN ARIE Primary Care Unavailable MARE LEAVITT Attending Unava ilBautista Alberts Unavailable Unavailable Chris Blue Unavailable Unavailabl e THAKUR, GRAIN BLENDER JORDYN ARIE Primary Care Unavailab le Fried, Ms. Jocelyne Lee Attending Unavailabl e THAKUR, KARLENE JORDYN ARIE Primary Care Unavailab le Zarrabi, Dr. Mcmullen Attending Unavailable Wale, Dr. Mcmullen Referring Unavailable THAKUR, GRAIN BLENDER JORDYN ARIE Attending Unavailab le THAKUR, GRAIN BLENDER JORDYN ARIE Referring Unavailab le THAKUR, GRAIN BLENDER JORDYN ARIE Primary Care Unavailab le THAKUR, GRAIN BLENDER JORDYN ARIE Attending Unavailab le THAKUR, GRAIN BLENDER JORDYN ARIE Referring Unavailab le THAKUR, GRAIN BLENDER JORDYN ARIE Primary Care Unavailab le Zarrcandace, Dr. Mcmullen Attending Unavailable Zarrcandace, Dr. Mcmullen Referring Unavailable THAKUR, GRAIN BLENDER JORDYN RAIE Primary Care Unavailab le THAKUR, KARLENE JORDYN ARIE Primary Care Unavailab le Zarrabi, Dr. Mcmullen Attending Unavailable Doryrrcandace, Dr. Mcmullen Referring Unavailable Thakur MOBILE CRANE OPERATOR-GRAIN BLENDER, Jordyn D Unavailable Claudia Quick RN Unavailable [...] Unavailab le Daniel Berkowitz Referring Unavailab le JORDYN THAKUR Primary Care Unavailable NONE, XXXX Primary Care Physician Unavailab JORDYN Longoria Primary Care Unavailable Anika Bob Admitting Unavailable Anika Bob Attending Unavailable Paulino, Anika Gomez Admitting Unavailable Paulino, Anika Gomez Attending Unavailable Paulino, Anika Gomez Attending Unavailable Paulino, Anika Gomez Admitting Unavailable Paulino, Anika Gomez Attending Unavailable Paulino, Anika Gomez Admitting Unavailable Paulino, Anika Gomez Attending Unavailable Paulino, Anika Gomez Admitting Unavailable Thakur MOBILE CRANE OPERATOR-GRAIN BLENDER, Jordyn D Primary Care Provider [phone] Thakur MOBILE CRANE OPERATOR-GRAIN BLENDER, Jordyn D Unavailable THAKUR, JORDYN D Attending [...] Attending Unavailable Paulino, Anika Gomez Admitting Unavailable ROCABRANDEEJULIET Admitting Unavailable [facility], RONNA Consulting Unavailable RISING SUNJENNY Attending Unavailable Paulino, Anika Gomez Attending Unavailable Paulino, Anika Gomez Admitting Unavailable Paulino, Anika Gomez Attending Unavailable Paulino, Anika Gomez Admitting Unavailable BordnerTali Attending Unavailable Minesh Kemp Attending Unavailable Marker Geri AUGUSTINE Attending Provider Lola George APRN Attending Provider Geri Andrews Attending Unavailable Geri Andrews Admitting Unavailable Lola George Attending Unavailable Lola George Admitting Unavailable Allergies Allergy Classification Reported Allergen(s) Allergy Type Date of Onset Reaction(s) Facility cloNIDine (1 source) cloNIDine Drug Allergy Hives/Urticaria [facility] (20 sources) cloNIDine; Translations: [clonidine] Drug Allergy 1 Hives, Weal (disorder) [facility] Repository (10 sources) PARoxetine; Translations: [PAROXETINE HCL] Drug Allergy 3 Insomnia [facility] Work Phone: (18 sources) PARoxetine; Translations: [paroxetine] Drug Allergy 4 Insomnia (disorder) [facility] (4 sources) clonazePAM; Translations: [clonazepam] Drug Allergy 5 [facility] (1 source) PARoxetine Drug Allergy 5 [facility] Repository Medications Current Medications Medication Drug Class(es) Dates [...] day(s), # 28 tab(s), Refills(s) 0, Pharmacy: [facility], 165, cm, 09/23/24 11:58:00 [...] by prescriber. cephalexin 500 mg oral capsule (6 sources) Cephalosporin Antibacterial Start: 10-20-2024 take 1 capsule by mouth twice daily Cephalexin 500 mg capsule Active 500 MG PO Twice daily 10 October 20, 2024 12:00am Start: 06-05-2024 End: 06-12-2024 take 1 capsule by mouth four times daily Keflex 500 mg Cap 500 mg = 1 cap(s), Oral, QID, X 7 day(s), # 28 cap(s), Refills(s) 0, Pharmacy: [facility], 165.1, cm, 06/03/24 20:43:00 [...] Quantity: 90 Refills: 0 Ordered: 03-Mar-2022 Ashley MOBILE CRANE OPERATOR-GRAIN BLENDER, Jordyn Start : 03-Mar-2022 Active take 1 tablet by christiano th once daily in the morning PARoxetine mesylate 40 mg oral tablet ; 1 tab(s) orally once a day (in the morning) Quantity: 0 Refills: 0 Ordered: 24-Aug-2022 Denis Kurtz Generic Substitution Allowed phenazopyridine hydrochloride 200 mg oral tablet (4 sources) Start: 10-20-2024 take 1 tablet by mouth three times daily Phenazopyridine (Pyridium) 200 mg tablet Active 200 MG PO Three times daily 6 October 20, 2024 12:00am Start: 06-19-2023 End: 06-21-2023 take 1 tablet [...] hour 100 mL/hr, IntraVENous, Continuous, Starting on Sun06/23/24 at 1615 Start: 06-22-2024 End: 06-22-2024 500 mL, IntraVENous, at 500 mL/hr, Administer over 1 Hours, Once, On Sun06/22/24 at 2245, For 1 dose citalopram 10 [...] at 1944, For 1 dose, Yonis Aponte: galinet override nirmatrelvir-ritonavir (Paxlovid) 300 mg (150 mg [...] Translations: [Esophageal reflux] Onset: 10-19-2016 10-20-2022 Chronic Genitourinary symptoms and ill-defined conditions (20 sources) History of urinary tract infection; Translations: [Personal history of urinary (tract) infections] Onset: 04-23-2023 Resolved: 05-06-2024 04-23-2023 Episodic Other aftercare (2 sources) Encounter for follow-up examination after completed treatment for conditions other than malignant neoplasm; Translations: [Encounter for follow-up examination after completed treatment for conditions other than malignant neoplasm] Onset: 06-07-2022 Episodic Other aftercare (1 source) Other manager long term care (current) drug therapy; Translations: [Other senior living (current) drug therapy] Onset: 04-13-2023 Episodic Other [...] encounter for closed fracture] Onset: 04-24-2022 Episodic Menstrual disorders (13 sources) Missed period; [...] Test Name Value Interpretation Reference Range Facility Urine Cultureon 10-20-2024 Bacteria identified Cx Nom (U) ORGANISM: Escherichia coli (O:ESCCOL) [place] Count 25,000 Organism Comments Predominant Growth Aerobic WARREN Charge (NMIC56) - SUSCEPTIBILITY ORGANISM: O:ESCCOL ANTIBIOTIC INTERPRETATION WARREN Amikacin S <16 Amoxacillin/K Clavulanate S <8 Ampicillin S <8 Ampicillin/Sulbactam S <4 Aztreonam S <4 Cefazolin S <2 Cefepime S <2 Ceftazidime S <1 Ceftazidime/Avibactam S <4 Ceftolozane/Tazobactam S <2 Ceftriaxone S <1 Cefuroxime S 8 Ciprofloxacin S <0.25 Ertapenem S <0.5 Gentamicin S <2 Levofloxacin S <0.5 Meropenem S <1 Meropenem/Vaborbactam S <2 Nitrofurantoin S <32 Piperacillin/Tazobactam S <8 Tetracycline R >8 Tigecycline S <2 Tobramycin S <2 Trimethoprim/Sulfamethox azole S <0.5 S = SUSCEPTIBLE I = INTERMEDIATE R = RESISTANT BLANK = DATA NOT AVAILABLE, OR DRUG NOT ADVISABLE OR TESTED R* = RESISTANCE DUE TO EXTENDED SPECTRUM BETA-LACTAMASES ESBL = EXTENDED SPECTRUM BETA-LACTAMASE TFG = THYMIDINE-DEPENDENT STRAIN EVERETTE = BETA-LACTAMASE POSITIVE IB = INDUCIBLE BETA-LACTAMASE. APPEARS IN PLACE OF 'S' WITH SPECIES KNOWN TO POSSESS INDUCIBLE BETA-LACTAMASES. POTENTIALLY THEY MAY BECOME RESISTANT TO ALL B-LACTAM DRUGS. PERFORMED BY: [place] [address] PATHOLOGIST EMERGENCY MANAGEMENT SPECIALIST HO PÉREZ M.D. Normal [facility] Comment on above: Performed By: #### C UU #### [address] Urine Cultureon 10-19-2024 Bacteria identified Cx Nom (U) ORGANISM: Escherichia coli (O:ESCCOL) [place] Count 25,000 Organism Comments Predominant Growth Aerobic WARREN Charge (NMIC56) - SUSCEPTIBILITY ORGANISM: O:ESCCOL ANTIBIOTIC INTERPRETATION WARREN Amikacin S <16 Amoxacillin/K Clavulanate S <8 Ampicillin S <8 Ampicillin/Sulbactam S <4 Aztreonam S <4 Cefazolin S <2 Cefepime S <2 Ceftazidime S <1 Ceftazidime/Avibactam S <4 Ceftolozane/Tazobactam S <2 Ceftriaxone S <1 Cefuroxime S <4 Ciprofloxacin S <0.25 Ertapenem S <0.5 Gentamicin S <2 Levofloxacin S <0.5 Meropenem S <1 Meropenem/Vaborbactam S <2 Nitrofurantoin S <32 Piperacillin/Tazobactam S <8 Tetracycline R >8 Tigecycline S <2 Tobramycin S <2 Trimethoprim/Sulfamethox azole S <0.5 S = SUSCEPTIBLE I = INTERMEDIATE R = RESISTANT BLANK = DATA NOT AVAILABLE, OR DRUG NOT ADVISABLE OR TESTED R* = RESISTANCE DUE TO EXTENDED SPECTRUM BETA-LACTAMASES ESBL = EXTENDED SPECTRUM BETA-LACTAMASE TFG = THYMIDINE-DEPENDENT STRAIN EVERETTE = BETA-LACTAMASE POSITIVE IB = INDUCIBLE BETA-LACTAMASE. APPEARS IN PLACE OF 'S' WITH SPECIES KNOWN TO POSSESS INDUCIBLE BETA-LACTAMASES. POTENTIALLY THEY MAY BECOME RESISTANT TO ALL B-LACTAM DRUGS. PERFORMED BY: [place] [address] PATHOLOGIST EMERGENCY MANAGEMENT SPECIALIST HO PÉRZE M.D. Normal [facility] Comment on above: Performed By: #### C UU #### [address] Family Medicine Office/Clini c Noteon 10-12-2024 Family [...] with voice recognition software. Occasional wrong-word or ???fvpro-k-srxw??? substitutions may have occurred due to the [...] has been other than home with the . Patient states symptoms started with sore throat [...] Otherwise she understands to take child to food and beverage analyst if child is despite fever. Fluids rest [...] With When Contact Information NONE, XXXX [phone] Additional Instructions: Patient Education Upper Respiratory Infection, [...] e-cigarette use Smokeless Tobacco Use:. Vaping, 10/10/2024 [facility] Comment on above: Result Comment: Elec tronically Signed By: Justo EASTON, Minesh Bruno\.br\Date and Time Signed: 10/12/24 08:24 EDT Ambulatory Visit Summaryon 0 10-10-2024 Ambulatory Visit Summary Ambulatory Visit Summary LUZ HINOJOSA :2000 Visit Date:10/10/2024 Ambulatory Visit Instructions Your Diagnosis Body aches Your Care Team Attending Physician - Minesh Kemp PA-C Primary Care Physician - NONE, XXXX Procedures Performed Betamethasone (06/04/2024), Betamethasone (06/03/2024). Discharge Vitals Temperature (Temporal Artery) 36.7 ???C Heart Rate (Peripheral) 110 Respiratory Rate 16 Blood Pressure 110/78 Height 165 cm Height 65 in Weight 56.3 kg Weight 124.12 lb BMI 20.68 What to do next You Need to Schedule the Following Appointments Follow Up with NONE, XXXX When: Where: [phone] Allergies Paxil (Insomnia) cloNIDine (Hives) Problems Historical - Any problem that you are no longer receiving treatment for. Patient Survey You may receive a survey via text or e-mail asking about your office visit. Please share your experience with us by completing your survey. We appreciate your feedback and thank you for choosing us for your care. Katelyn Romero [facility] Ambulatory Visit Summaryon 0 09-23-2024 Ambulatory Visit Summary Ambulatory Visit Summary LUZ HINOJOSA :2000 Visit Date:09/23/2024 Ambulatory Visit Instructions Your Diagnosis Mouth sores Your Care Team Attending Physician - Elliot PETERSON, Sushila Primary Care Physician - NONE, XXXX This [...] Mouth sores Duration: 7 Days Pickup at [facility] 1985 Unchanged lidocaine topical (lidocaine Viscous Top 2% Uyen) Contact prescribing physician if questions or concerns Pharmacy Information [facility]: [address] [place], [place] [id number] [phone] Allergies Paxil (Insomnia) cloNIDine (Hives) Problems Historical [...] the only treatment that you will need. Vzic-jsz-yxmwymv medicines can relieve discomfort. If you have [...] at home: ??? Apply, take, or use udql-xfo-mvbbijj and prescription medicines only as told by [...] or salty foods. ??? Use a mild, wtay-sjr-rszvgez mouth rinse as recommended by your health [...] with voice recognition software. Occasional wrong-word or ???lysey-s-jkgm??? substitutions may have occurred due to the [...] day(s), # 28 tab(s), Refills(s) 0, Pharmacy: [facility], 165, cm, 09/23/24 11:58:00 [...] use Smokeless Tobacco Use:. Vaping, 09/23/2024 Normal [facility] Comment on above: Result Comment: Elec tronically Signed By: Sushila High\.br\Date and Time Signed: 09/23/24 12:44 EST 42on 06-25-2024 42 In to follow up with NICU mom. Mom is pumping every 3 hours for 40-50cc EDITA. Mom has Spectra pump for home. Discharge today. [facility] Progress Noteon 06-25-2024 Progress Note ---- -------- [...] office PP vs her primary OB in [place] and she will follow up in [place]. DC teaching done. Briefly discussed CL measurements [...] MD Arjun Samaniego MD 06/25/2024, 5:50 AM [facility] [id number] 06-24-2024 [id number] Date: 06/24/2024 Name: Luz Hinojosa : 2000 [facility] Patient Information Primary Caregiver: Self Accompanied by/Relationship: S/O;Family Marital Status: Support System: SO/Family Judaism/Cultural Factors: none Activities of Daily Living Communication: [...] place to sleep or slept in a halfway (including now)? No Transportation Needs Has the [...] Equipment: Developmental Delay: N/A Children's Services: N/A [facility] 42on 06-24-2024 42 Baby is [...] mother's groups after dc. Verbalizes understanding. Normal [facility] Bacteria identified Cx Nom ( U)Ordered By: Rahel Laboy on 06-24-2024 Interpretation and review of laboratory results Normal [facility] - Microbiology an d Antimicrobial susceptibilityOrdered By: Rahel Laboy on 06-24-2024 Bacteria identified Cx Nom (U) No growth (<1,000 CFU/mL) [facility] Nursing Noteon 06-24-2024 Nursing Note Patient up to ambula te for this first time since delivery. Patient able to ambulate to the bathroom independently. Pads and underwear changed. Lazara care performed. Education provided about abnormal signs of bleeding and lazara care. No questions or concerns voiced. Patient ambulated back to bed without difficulty. Call light within reach. [facility] Progress Noteon 06-24-2024 Progress Note Nutrition rescreen completed. Chart reviewed. Patient to be monitored and followed by the diet sound technician. MARRY Mathias Normal [facility] Progress Note VAGINAL DELIVERY POST DAY # [...] indicated: Pt is doing well. Bboy in [facility] NICU. AFVSS. TIME SPENT ON PATIENT ENCOUNTER TODAY: Chart review and preparation: 10 minutes. Palr-qt-gzfv, documentation, and care coordination: 15 minutes. --> TOTAL= 25 MINUTES [facility] S. agalactiae DNA GIOVANNI+probe Ql (Unsp spec)on 06-24-2024 Group B Strep Screen Not detected Not Detected [facility] Interpretation and review of laboratory results [facility] Methodology: real-ti me PCR [facility] 30on 06-23-2024 30 Problem: Antepartum Goal: Maintain as long as maternal and/or condition is stable 06/23/20242101 by Judie Ochoa RN Outcome: Completed 06/23/20242035 by Judie Ochoa RN Outcome: Progressing Normal [facility] 30 Problem: Antepartum Goal: Maintain as long as maternal and/or condition is stable Outcome: Progressing Flowsheets (Taken 06/22/20240) Maintain as long as maternal and/or condition is stable: Maternal surveillance water treatment plant repairer uterine activity Medications as ordered Problem: Pain - Adult Goal: Verbalizes/displays adequate comfort level or baseline comfort level Outcome: Progressing Problem: Infection - Adult Goal: Absence of infection during hospitalization Outcome: Progressing Flowsheets (Taken 06/22/2024 2200) Absence of infection during hospitalization: Assess and [...] fall injury: Instruct family/caregiver on patient safety [facility] [id number] 06-23-2024 [id number] Date: 06/23/2024 Name: Luz Hinojosa : 2000 [facility] Patient Information Primary Caregiver: Self Accompanied by/Relationship: S/O;Family Marital Status: Single Support System: SO/Family Judaism/Cultural Factors: none Activities of Daily Living Communication: [...] place to sleep or slept in a halfway (including now)? No Transportation Needs Has the [...] Developmental Delay: N/A Children's Services: N/A Normal [facility] [employer] [facility] Bacterial vaginosis and vagi nitis rRNA panel Probe (Vag fld)on 06-23-2024 Bacterial vaginosis Ql (Vag fld) [Interp] Not detected Not Detected [facility] [employer] C. glabrata DNA GIOVANNI+probe Ql (Vag fld) Not detected Not Detected [facility] [employer] Preethi sp DNA GIOVANNI+probe Ql (Vag fld) Not detected Not Detected [facility] Interpretation and review of laboratory results Normal [facility] T. vaginalis DNA GIOVANNI+probe Ql (Vag fld) Not detected Not Detected [facility] Methodology: real-ti me PCR A [...] sexual abuse or for other forensic purposes. [facility] Urineon 06-23-2024 Bacteria identified Cx Nom (U) [...] Locations R1: This test was performed at: [facility], [address] [place] [address], [address] , , Normal [facility] Comment on above: Performed By: #### 2 [id number] #### [facility] [address] [place] [address] CBC (HEMOGRAM)on 06-23-2024 Erythrocyte distribution width (RBC) [Ratio] 12.4 % Normal 11.5-15.0 [facility] Comment on above: Performed By: #### L [id number] ####Typewriter Repairer: JORDYN DUFFY ([id number])[address] Hematocrit (Bld) [Volume fraction] 29.8 % Low 35.0-47.0 [facility] Comment on above: Performed By: #### L [id number] ####Typewriter Repairer: JORDYN DUFFY ([id number])[place] [address] [place] Hemoglobin (Bld) [Mass/Vol] 10.1 g/dL Low 11.7-16.0 [facility] Comment on above: Performed By: #### L [id number] ####Typewriter Repairer: JORDYN DUFFY ([id number])[facility] ([facility])[address] [place] [address] MCH (RBC) [Entitic mass] 28.8 pg Normal 26.0-34.0 [facility] Comment on above: Performed By: #### L [id number] ####Typewriter Repairer: JORDYN DUFFY ([id number])[facility])[address] [place] [address] MCHC 33.9 % Normal 30.5-36.0 [facility] Comment on above: Performed By: #### L [id number] ####Typewriter Repairer: JORDYN DUFFY ([id number])[facility] ([facility])[address] [place] [address] MCV (RBC) [Entitic vol] 84.9 fL Normal 77.0-99.0 [facility] Comment on above: Performed By: #### L [id number] ####Typewriter Repairer: JORDYN DUFFY ([id number])[facility] ([facility])[address] [place] [address] Platelet mean volume (Bld) [Entitic vol] 10.2 fL Normal 9.0-12.7 [facility] Comment on above: Performed By: #### L [id number] ####Typewriter Repairer: JORDYN DUFFY ([id number])[facility] ([facility])[address] [place] [address] Platelets (Bld) [#/Vol] 284 10*3/uL Normal 140-440 [facility] Comment on above: Performed By: #### L [id number] ####Typewriter Repairer: JORDYN DUFFY ([id number])[facility] ([facility])[address] [place] [address] RBC (Bld) [#/Vol] 3.51 10*6/uL Low 3.80-5.20 [facility] Comment on above: Performed By: #### L [id number] ####Typewriter Repairer: JORDYN DUFFY ([id number])[facility] ([facility])[address] [place] [address] WBC (Bld) [#/Vol] 19.1 10*3/uL High 3.6-10.7 [facility] Comment on above: Performed By: #### L [id number] ####Typewriter Repairer: JORDYN DUFFY ([id number])[facility])[address] [place] [address] CBC panel Auto (Bld)on 06-23 Erythrocyte distribution width (RBC) [Ratio] 12.4 % 11.5 - 15.0 % [facility] Hematocrit (Bld) [Volume fraction] 29.8 % Low 35.0 - 47.0 % [facility] Hemoglobin (Bld) [Mass/Vol] 10.1 g/dL Low 11.7 - 16.0 g/dL [facility] Interpretation and review of laboratory results Abnormal [facility] MCH (RBC) [Entitic mass] 28.8 pg 26.0 - 34.0 pg [facility] MCHC (RBC) [Mass/Vol] 33.9 % 30.5 - 36.0 % [facility] MCV (RBC) [Entitic vol] 84.9 fL 77.0 - 99.0 fL [facility] Platelet mean volume (Bld) [Entitic vol] 10.2 fL 9.0 - 12.7 fL [facility] Platelets (Bld) [#/Vol] 284 10*3/uL 140 - 440 10*3/uL [facility] RBC (Bld) [#/Vol] 3.51 10*6/uL Low 3.80 - 5.2 0 10*6/uL [facility] WBC (Bld) [#/Vol] 19.1 10*3/uL High 3.6 - 10.7 10*3/uL [facility] Consulton 06-23-2024 Consult NICU Maternal [...] 40 minutes. Emily Teresa MD, 06/23/2024 Normal [facility] GROUP B STREP SCREEN BY PCRo n 06-23-2024 GROUP B STREP SCREEN BY PCR GROUP B STREP SCREEN BY PCR Reference Not Detected Not Detected ORDER COMMENTS: Methodology: real-time PCR Normal [facility] Comment on above: Performed By: #### L [id number] #### Typewriter Repairer: JORDYN DUFFY ([id number]) [facility] ([facility]) [address] [place] [address] Inpatient Clinical Summaryon 06-23-2024 Inpatient Clinical Summary Inpatient Clinical Summary [place] [id number] Clinical Summary Person Information Name: LUZ HINOJOSA/[facility] Age: 23 Years : 2000 Sex: Female PCP: NONE, XXXX Marital Status: Phone: [phone] Race: White Ethnicity: Non- or Language: New Zealander Visit Id: Visit Reason: contractions Speciality: Acuity: Enc Type: Observation Med Service: Obstetrics Arrival: 06/22/2024 06:49:36 Discharge: 06/22/2024 16:53:00 Dispo Type: Undefined HC Fac Address: [facility] HERLINDA [address] [id number] Provider Notes: Diagnosis: Problems Active (11/27/2023) Smoking [...] Physician: Follow up: Patient Education Information: Normal [facility] Inpatient Patient Summaryon 06-23-2024 Inpatient Patient Summary Inpatient Patient Summary [place] [id number] Patient Discharge Instructions PERSON INFORMATION Name: LUZ [...] to find a nearby participating provider. Comment: I LUZ HINOJOSA, have received the attached patient education materials/instructions and have verbalized understanding. Patient Signature Date Clinican/Nurse Signature Date MEDICATION LIST Medications to Continue with No Changes Other Medications multivitamin, ( Multivitamins) 1 Tablets By Mouth every day. Last Dose: _Next Dose: _ Pharmacy Information: PATIENT EDUCATION INFORMATION Instructions: Medication Leaflets: You may receive a survey from [employer] asking you to rate your care experience. [...] signed up for this yet, please contact [employer] at [phone] to get signed up today. COOPER Award [...] QR code below. Thank you for choosing [facility] Katelyn Romero [facility] Labor and Delivery Noteon Labor [...] Anxiety Post-operative Diagnosis: Live Born male Delivering Bi Consultant & Instructional Technology Coordinator(s): Dr. Ponce; Dr. Adams Information: Information for the patient's : Onesimo Hinojosa [[id number]] Information for the patient's : Onesimo Hinojosa [[id number]] Description: normal Meconium Noted: No Anesthesia: epidural anesthesia Complications: None Application and Delivery: Luz Goel at 29w5d admitted for threatened labor as a transfer from [place]. She progressed with cervical dilation despite tocolysis. [...] 50 mL Quantitative Blood Loss: 50 mL AshishOnesimo Luz [[id number]] Labor Events labor?: Yes steroids: Full Course [...] Start pushing date/time: Decision date/time () Delivery ([place]) (more content not included)... Normal [facility] N. gonorrhoeae DNA GIOVANNI+probe Ql (Cervical mucus)on 06-23-2024 C. trachomatis DNA GIOVANNI+probe Ql (Unsp spec) Not detected Not Detected [facility] Interpretation and review of laboratory results Normal [facility] N gonorrhoeae, DNA Probe Not detected Not Detected [facility] Methodology: real-ti me PCR This [...] specimen should be collected if clinically indicated. [facility] Progress Noteon 06-23-2024 Progress Note Following SVE perfor med by Dr. Tejada where patient made change from 2/80/-3 to /-2 with bulging bag, confirmed vertex positioning on BSUS. Magnesium sulfate restarted at this time. PCN running, patient has now received one dose of rescue steriods. Will discontinue tocolytics per Dr. Roca's recommendations. Dr. Ponce and Dr. Roca both updated and aware. Plan to move patient to labor floor and patient may request epidural. DEPORTATION OFFICER updated and aware. [facility] Progress Note SVE performed in set ting of continued CTX and abdominal pain. SVE unchanged at 2/80/-3. Will continue to monitor closely. Normal [facility] Progress Note ---- -------- Attestation signed by [...] for tocolysis, adjusted mag to 1g/hr for PLATE PRINTER, and started PCN G for GBS prophylaxis. [...] x 48hrs, mag x 12 hrs for PLATE PRINTER, and PCN G for GBS prophylaxis until [...] regular contractions q5 min that were painful. 50/-3 on SVE at that time. Given Terbutaline, IR procardia x1, magnesium parada (more content not included)... Normal [facility] US OB DETAIL ANATOMY T ESMERSABDOMINALon 06-23-2024 US OB DETAIL ANATOMY TRANSABDOMINAL OBSTETRICS REPORT (Signed Final 06/23/2024 01:22 pm) PATIENT INFO: ID #: [id number] : [birth year] (23 yrs)(F) Name: LUZ HINOJOSA Visit Date: 06/23/2024 11:18 am PERFORMED BY: Attending: Juliet Roca Performed By: Yonis Allen Referred By: GAVI TEJADA Location: [facility] IP Visit Type: Inpatient - Hospital SERVICE(S) PROVIDED: Level II complete (Targeted OB) 33464 INDICATIONS: TPTL VITAL SIGNS: Weight (lb): 143 [...] Normal appearance Interventr. Septum: Suboptimal views Cardiac [place]: Normal appearance Diaphragm: Normal appearance 3 Vessel [...] Normal Anter (more content not included)... Normal [facility] US for pregnancyon 4 1. [place] live intrauterine at 29w 5d. 2. Normal anatomy, with limitations as noted above. 3. biometry consistent with clinically established JOANIE. EFW is 1323g (42%). 4. Normal Anterior placenta. 5. Amniotic fluid index is normal, 11cm. [employer] [facility] OBSTETRICS REPORT (Signed Final 06/23/2024 01:22 pm) PATIENT INFO: ID #: [id number] : [birth year] (23 yrs)(F) Name: LUZ HINOJOSA Visit Date: 06/23/2024 11:18 am PERFORMED BY: Attending: Juliet Roca Performed By: Yonis Allen Referred By: GAVI TEJADA Location: [facility] IP Visit Type: Inpatient - Hospital SERVICE(S) PROVIDED: US Level II complete (Targeted OB) [id number] INDICATIONS: TPTL VITAL SIGNS: Weight (lb): 143 [...] Normal appearance Interventr. Septum: Suboptimal views Cardiac [place]: Normal appearance Diaphragm: Normal appearance 3 Vessel [...] Forearm: Normal appearance (more content not included)... [facility] Juliet Roca MD - 06/23/2024 OBSTETRICS REPORT (Signed Final 06/23/2024 01:22 pm) PATIENT INFO: ID #: [id number] : [birth year] (23 yrs)(F) Name: LUZ HINOJOSA Visit Date: 06/23/2024 11:18 am PERFORMED BY: Attending: Juliet Roca Performed By: Yonis Allen Referred By: GAVI TEJADA Location: [place] [facility] IP Visit Type: Inpatient - Hospital SERVICE(S) PROVIDED: US Level II complete (Targeted OB) [id number] INDICATIONS: TPTL VITAL SIGNS: Weight (lb): 143 [...] Normal appearance Interventr. Septum: Suboptimal views Cardiac [place]: Normal appearance Diaphragm: Normal appearance 3 Vessel [...] with limitations a (more content not included)... [facility] Radiology Study observation (narrative) [facility] US for pregnancyOrdered By: Juliet Roca on 06-23-2024 [facility] [employer] Work Phone: ABO and Rh group Confirm Nom (Bld)on 06-22-2024 ABO group Nom (Bld) [facility]) Positive [facility] BLOOD TYPE AND SCREEN GELon 06-22-2024 ABO GROUPING A Normal [facility] Comment on above: Order Comment: HOLD. Specimen is valid for 3 days - nurse to verify valid specimen Performed By: #### L [id number] #### Typewriter Repairer: JORDYN DUFFY ([id number]) [facility] ([facility]) [address] [place] [address] RH TYPE IN BLOOD Positive Normal [facility] Comment on above: Order Comment: HOLD. Specimen is valid for 3 days - nurse to verify valid specimen Performed By: #### L [id number] #### Typewriter Repairer: JORDYN DUFFY ([id number]) [facility] ([facility]) [address] [place] [address] Blood type and Crossmatch pa maurice (Bld)on 06-22-2024 ABO group Nom (Bld) A [facility] Blood group antibody screen GEL Ql Negative [facility] [employer] D Ag Ql (RBC) Positive [facility] Buprenorphine Scr Uron 06-22 Buprenorphine Ql (U) Negative Normal NEGATIVE [facility] Comment on above: Result Comment: Nega tive Cutoff: <5 ng/mL These drug screen results are to be used for medical (i.e., treatment) purposes only. Unconfirmed drug screening results must not be used for non-medical purposes (e.g., employment testing, legal testing). Performed By: #### 7 [id number] #### [facility] [address] [place] [address] CHEMISTRYOrdered By: SYSTEM SYSTEM on 06-22-2024 Amphetamines [...] should be collected if clinically indicated. Normal [facility] Comment on above: Performed By: #### L [id number] ####Typewriter Repairer: JORDYN DUFFY ([id number])[address] COMPREHENSIVE METABOLIC PANE Dexter 06-22-2024 Albumin [Mass/Vol] 3.2 g/dL Low 3.5-5.0 [facility] Comment on above: Performed By: #### L [id number], [id number] ####Typewriter Repairer: JORDYN DUFFY ([id number])[facility])[address] [place] [address] ALP [Catalytic activity/Vol] 92 U/L Normal 38-126 [facility] Comment on above: Performed By: #### L AB17, [id number] ####Typewriter Repairer: JORDYN DUFFY ([id number])[facility])[address] [place] [address] ALT [Catalytic activity/Vol] 9 U/L Normal 0-34 [facility] Comment on above: Performed By: #### L AB17, [id number] ####Typewriter Repairer: JORDYN DUFFY ([id number])[facility])[address] [place] [address] Anion gap [Moles/Vol] 9 mmol/L Normal 3-13 [facility] Comment on above: Performed By: #### L AB17, [id number] ####Typewriter Repairer: JORDYN DUFFY ([id number])[facility])[address] [place] [address] AST [Catalytic activity/Vol] 16 U/L Normal 15-46 [facility] Comment on above: Performed By: #### L AB17, [id number] ####Typewriter Repairer: JORDYN DUFFY ([id number])[facility])[address] [place] [address] Bilirubin [Mass/Vol] 0.2 mg/dL Normal 0.2-1.3 [facility] Comment on above: Performed By: #### L AB17, [id number] ####Typewriter Repairer: JORDYN DUFFY ([id number])[facility] ([facility])[address] [place] [address] Calcium [Mass/Vol] 6.8 mg/dL Low 8.4-10.4 [facility] Comment on above: Performed By: #### L AB17, [id number] ####Typewriter Repairer: JORDYN DUFFY ([id number])[facility] ([facility])[address] [place] [address] Chloride [Moles/Vol] 106 mmol/L Normal 98-107 [facility] Comment on above: Performed By: #### L AB17, [id number] ####Typewriter Repairer: JORDYN DUFFY ([id number])[facility] ([facility])[address] [place] [address] CO2 [Moles/Vol] 20 mmol/L Low 22-30 [facility] Comment on above: Performed By: #### L AB17, [id number] ####Typewriter Repairer: JORDYN DUFFY ([id number])[facility])[address] [place] [address] Creatinine [Mass/Vol] 0.50 mg/dL Low 0.52-1.04 [facility] Comment on above: Performed By: #### L AB17, [id number] ####Typewriter Repairer: JORDYN DUFFY ([id number])[facility])[address] [place] [address] GLOMERULAR FILTRATION RATE ML/MIN/1.73 SQ M.PREDICTED >90.0 Normal >60.0 [facility] Comment on above: Result Comment: Calc ulation based on the Chronic Kidney Disease Epidemiology Collaboration (CKD-EPI) equation refit without adjustment for race Performed By: #### L AB17, [id number] ####Typewriter Repairer: JORDYN DUFFY ([id number])[facility])[address] [place] [address] Glucose [Mass/Vol] 109 mg/dL High 70-100 [facility] Comment on above: Performed By: #### L AB17, [id number] ####Typewriter Repairer: JORDYN DUFFY ([id number])[facility] ([facility])[address] [place] [address] Potassium [Moles/Vol] 3.3 mmol/L Low 3.5-5.1 [facility] Comment on above: Performed By: #### L AB17, [id number] ####Typewriter Repairer: JORDYN DUFFY ([id number])[facility])[address] [place] [address] Protein [Mass/Vol] 6.2 g/dL Low 6.3-8.2 [facility] Comment on above: Performed By: #### L AB17, [id number] ####Typewriter Repairer: JORDYN DUFFY ([id number])[facility] ([facility])[address] [place] [address] Sodium [Moles/Vol] 135 mmol/L Normal 135-145 [facility] Comment on above: Performed By: #### L AB17, [id number] ####Typewriter Repairer: JORDYN DUFFY ([id number])[facility])[address] [place] [address] [place] Urea nitrogen [Mass/Vol] 3 mg/dL Low 7-17 [facility] Comment on above: Performed By: #### L AB17, [id number] ####Typewriter Repairer: JORDYN DUFFY ([id number])[facility])[address] [place] [address] Comprehensive metabolic 1998 panelon 06-22-2024 Albumin [Mass/Vol] 3.2 g/dL Low 3.5 - 5.0 g/dL [facility] ALP [Catalytic activity/Vol] 92 U/L 38 - 126 U/L [facility] ALT [Catalytic activity/Vol] 9 U/L 0 - 34 U/L [facility] Anion gap [Moles/Vol] 9 mmol/L 3 - 13 mmol/L [facility] AST [Catalytic activity/Vol] 16 U/L 15 - 46 U/L [facility] Bilirubin [Mass/Vol] 0.2 mg/dL 0.2 - 1 .3 mg/dL [facility] Calcium [Mass/Vol] 6.8 mg/dL Low 8.4 - 10. 4 mg/dL [facility] Chloride [Moles/Vol] 106 mmol/L 98 - 10 7 mmol/L [facility] CO2 [Moles/Vol] 20 mmol/L Low 22 - 30 mmol/L [facility] Creatinine [Mass/Vol] 0.5 mg/dL Low 0.52 - 1.04 mg/dL [facility] GFR/1.73 sq M.predicted (S/P/Bld) [Vol rate/Area] - PINF [facility] Comment on above: Calculation based on the Chronic Kidney Disease Epidemiology Collaboration (CKD-EPI) equation refit without adjustment for race Glucose [Mass/Vol] 109 mg/dL High 70 - 100 mg/dL [facility] Interpretation and review of laboratory results Abnormal [facility] Potassium [Moles/Vol] 3.3 mmol/L Low 3.5 - 5.1 mmol/L [facility] Protein [Mass/Vol] 6.2 g/dL Low 6.3 - 8.2 g/dL [facility] Sodium [Moles/Vol] 135 mmol/L 135 - 145 mmol/L [facility] Urea nitrogen [Mass/Vol] 3 mg/dL Low 7 - 17 mg/dL [facility] FIBRINOGENon 06-22-2024 FIBRINOGEN 439 mg/dL High 200-400 [facility] Comment on above: Performed By: #### L [id number], [id number] ####Typewriter Repairer: JORDYN DUFFY ([id number])[facility] ([facility])[address] [place] [address] Fibrinogen Coag (PPP) [Mass/ Vol]on 06-22-2024 Interpretation and review of laboratory results Abnormal [facility] HEPATITIS B SURFACE ANTIGENo n 06-22-2024 HEPATITIS B VIRUS SURFACE AG Not detected Normal Not Detected [facility] Comment on above: Performed By: #### L [id number], [id number] ####Typewriter Repairer: JORDYN DUFFY ([id number])[facility])[address] [place] [address] HEPATITIS C ANTIBODYon 06-22 HCV Ab IA Ql Not detected Normal Not Detected [facility] Comment on above: Result Comment: Glory ents with DETECTED Hepatitis C Ab results should have a new specimen submitted for supplemental testing with a Hepatitis C Quantitative RNA assay (viral load), if clinically indicated. Performed By: #### L [id number], [id number] ####Typewriter Repairer: JORDYN DUFFY ([id number])[facility])[address] [place] [address] Laboratory - Chemistry and C hemistry - challengeOrdered By: Melany Palacio on 06-22-2024 Magnesium [Mass/Vol] 5.5 mg/dL Critically high 1.6 - 2.3 mg/dL [facility] Laboratory - CoagulationOrde red By: Benigno Gonzalez on 06-22-2024 aPTT Coag (PPP) [Time] 25.9 s 20.0 - 30.5 s [facility] INR Coag (PPP) [Relative time] Low 0.9 - 1.1 [facility] Comment on above: Recommended Anticoag [...] [Time] 10.1 s 9.0 - 12.0 s [facility] Laboratory - Coagulationon 1 08-23-2023 Fibrinogen Coag (PPP) [Mass/Vol] 439 mg/dL High 200 - 400 mg/dL [facility] Laboratory - Microbiology an d Antimicrobial susceptibilityon 06-22-2024 HBV surface Ag IA Ql Not detected Not Detected [facility] HCV Ab IA Ql Not detected Not Detected [facility] Comment on above: Patients with DETECT ED Hepatitis C Ab results should have a new specimen submitted for supplemental testing with a Hepatitis C Quantitative RNA assay (viral load), if clinically indicated. MAGNESIUMon 06-22-2024 Magnesium [Mass/Vol] 5.5 mg/dL Critically high 1.6-2.3 [facility] Comment on above: Performed By: #### L AB17, [id number] ####Typewriter Repairer: JORDYN DUFFY ([id number])[facility])[address] [place] [address] Magnesium [Mass/Vol]Ordered By: Melany Palacio on 06-22-2024 Interpretation and review of laboratory results Abnormal [facility] No Panel Informationon 06-22 Interpretation and review of laboratory results Normal [facility] No Panel InformationOrdered By: Benigno Gonzalez on 06-22-2024 Interpretation and review of laboratory results Abnormal [facility] PROTIME AND APTTon aPTT Coag (Bld) [Time] 25.9 s Normal 20.0-30.5 [facility] Comment on above: Performed By: #### L [id number], [id number] ####Typewriter Repairer: JORDYN DUFFY ([id number])[facility])[address] [place] [address] INR Coag (PPP) [Relative time] {INR} Low 0.9-1.1 [facility] Comment on above: Result Comment: Abundio mmended [...] prevent Myocardial Infarction Performed By: #### L [id number], [id number] ####Typewriter Repairer: JORDYN DUFFY ([id number])[facility] ([facility])[address] [place] [address] PT Coag (PPP) [Time] 10.1 s Normal 9.0-12.0 [facility] Comment on above: Performed By: #### L [id number], [id number] ####Typewriter Repairer: JORDYN DUFFY ([id number])[facility] ([facility])[address] [place] [address] Progress Noteon 06-22-2024 Progress Note Department of [...] of care with Dr. Roca on-call for [facility] service and will plan for toco lysis as well as rescue steroids. heart tracing category 1. Will initiate penicillin for GBS prophylaxis as well as de-escalate magnesium to neuroprotection dosing at 1 g/h. Notified patient and patient agreeable to plan. Fetus vertex on bedside ultrasound. ESSION: Pre-Term Labor Pain assessment and plan: None DISCUSSED WITH [facility] PROVIDER: Dr. Roca DISPOSITION: Admit to Antepartum (PNU) Normal [facility] U Drug Screenon 06-22-2024 Amphetamines Screen method >1000 ng/mL Ql (U) Negative Normal NEGATIVE [facility] Comment on above: Result Comment: Nega tive Cutoff: <1000 ng/mL Performed By: #### 2 [id number] #### [facility] [address] [place] [address] Barbiturates Screen Ql (U) Negative Normal NEGATIVE [facility] Comment on above: Result Comment: Nega tive Cutoff: <200 ng/mL Performed By: #### 2 [id number] #### [facility] [address] [place] [address] Benzodiazepines Ql (U) Negative Normal NEGATIVE [facility] Comment on above: Result Comment: Nega tive Cutoff: <200 ng/mL Performed By: #### 2 [id number] #### [facility] [address] [place] [address] Cannabinoids Screen Ql (U) Negative Normal NEGATIVE [facility] Comment on above: Result Comment: Nega tive Cutoff: <50 ng/mL Performed By: #### 2 [id number] #### [facility] [address] [place] [address] Cocaine Ql (U) Negative Normal NEGATIVE [facility] Comment on above: Result Comment: Nega tive Cutoff: <300 ng/mL Performed By: #### 2 [id number] #### [facility] [address] [place] [address] Opiates Screen Ql (U) Negative Normal NEGATIVE [facility] Comment on above: Result Comment: Nega tive Cutoff: <300 ng/mL Performed By: #### 2 [id number] #### [facility] [address] [place] [address] Phencyclidine Screen method >25 ng/mL Ql (U) Negative Normal NEGATIVE [facility] Comment on above: Result Comment: Nega tive Cutoff: <25 ng/mL These drug screen results are to be used for medical (i.e., treatment) purposes only. Unconfirmed drug screening results must not be used for non-medical purposes (e.g., employment testing, legal testing). Performed By: #### 2 [id number] #### [facility] [address] [place] [address] U Fentanyl Negative Normal NEGATIVE [facility] Comment on above: Result Comment: Nega tive Cutoff: <5 ng/mL These drug screen results are to be used for medical (i.e., treatment) purposes only. Unconfirmed drug screening results must not be used for non-medical purposes (e.g., employment testing, legal testing). Performed By: #### 2 [id number] #### [facility] [address] [place] [address] URINE CULTUREon 06-22-2024 Bacteria identified Cx Nom (U) URINE CULTURE Reference No growth (<1,000 CFU/mL) [ S = SUSCEPTIBLE R = RESISTANT I = INTERMEDIATE S-DD = Susceptible-dose dependent NS = Non-susceptible NO = No Interpretation ] Normal [facility] Comment on above: Performed By: #### L [id number] ####Typewriter Repairer: JORDYN DUFFY ([id number])[facility] ([facility])[address] [place] [address] US Limitedon 06-22 US Limited Exam Date/Time: [...] cm in longitudinal length. PLACENTA: A grade 1-3-obgxuyblp placenta is anterior/fundal without evidence of placenta [...] Fluid Volume CHEMA (cm) 10.9 Normal Normal [facility] VAGINITIS PANEL MVP PCRon VAGINITIS PANEL [...] abuse or for other forensic purposes. Normal [facility] Comment on above: Performed By: #### L [id number] ####Typewriter Repairer: JORDYN DUFFY ([id number])[facility] ([address] ABO/Rhon 06-21-2024 ABO/Rh Positive Invalid Interpretation Code [facility] Comment on above: Performed By: #### 2 [id number] #### [facility] [address] [place] [address] ABO/Rh History Checkon 06-21 ABO/Rh History Check Verified Hx Blood Type Normal [facility] Comment on above: Performed By: #### 1 [id number] #### [facility] [address] [place] [address] ABSCon 06-21-2024 ABSC Gel Interp Negative Normal [facility] Comment on above: Performed By: #### 1 [id number] #### [facility] [address] [place] [address] BLOOD BANKOrdered By: Cora Devi on 06-21-2024 ABO/Rh Interp Positive Invalid Interpretation Code [facility] BB Subsection ABSC Gel Interp Negative (06/21/24 5:33 PM) Normal [facility] BB Subsection BLOOD BANKOrdered By: Jessica Hollis on 06-21-2024 FMHV 0 mL Invalid Interpretation Code [facility] HemeManSS BUNon 06-21-2024 Urea nitrogen [Mass/Vol] 9 mg/dL Normal 12-10 [facility] Comment on above: Performed By: #### 2 [id number] #### [facility] [address] [place] [address] Blood Bank ID#on 06-21-2024 BBID# [id number] Invalid Interpretation Code [facility] Comment on above: Performed By: #### 1 [id number] #### [facility] [address] [place] [address] CBC w/Indiceson 06-21-2024 Erythrocyte distribution width (RBC) [Ratio] 12.6 % Normal 10.9-14.2 [facility] Comment on above: Performed By: #### 2 [id number] #### [facility] [address] [place] [address] Hematocrit (Bld) [Volume fraction] 33.6 % Low 34.0-46.0 [facility] Comment on above: Performed By: #### 2 [id number] #### [facility] [address] [place] [address] Hemoglobin (Bld) [Mass/Vol] 11.7 g/dL Low 12.0-16.0 [facility] Comment on above: Performed By: #### 2 [id number] #### [facility] [address] [place] [address] MCH (RBC) [Entitic mass] 29.8 pg Normal 27.0-34.0 [facility] Comment on above: Performed By: #### 2 [id number] #### [facility] [address] [place] [address] MCHC (RBC) [Mass/Vol] 34.7 g/dL Normal 31.4-36.0 [facility] Comment on above: Performed By: #### 2 [id number] #### [facility] [address] [place] [address] MCV (RBC) [Entitic vol] 85.8 fL Normal 80.0-100.0 [facility] Comment on above: Performed By: #### 2 [id number] #### [facility] [address] [place] [address] Platelet 320.0 E9/L Normal 150.0-500.0 [facility] Comment on above: Performed By: #### 2 [id number] #### [facility] [address] [place] [address] Platelet mean volume (Bld) [Entitic vol] 7.7 fL Normal 6.4-10.8 [facility] Comment on above: Performed By: #### 2 [id number] #### [facility] [address] [place] [address] RBC (Bld) [#/Vol] 3.9 E12/L Low 4.3-5.9 [facility] Comment on above: Performed By: #### 2 [id number] #### [facility] [address] [place] [address] RBC size Nom (Bld) NORMAL Invalid Interpretation Code [facility] Comment on above: Performed By: #### 2 [id number] #### [facility] [address] [place] [address] WBC corrected for nucl RBC Auto (Bld) [#/Vol] 12.5 E9/L High 4.0-11.0 [facility] Comment on above: Performed By: #### 2 [id number] #### [facility] [address] Konstantin [place] [address] CHEMISTRYOrdered By: SYSTEM SYSTEM on 06-21-2024 Albumin [...] 28.6 s Normal 25.1 - 36.5 second(s) [facility] Auto Coag Comment on above: Interpretive Data: [...] the same coagulation reagent and instrumentation as [facility]. Currently there are no coagulation studies available worldwide for children to 14 days, and no normal ranges. Heparin therapeutic range (represented by Anti-Factor Xa activity of 0.2 - 0.4 U/mL) corresponds to PTT of 56.6 - 109.0 sec. Fibrinogen Coag (PPP) [Mass/Vol] 472 mg/dL High 200 - 393 mg/dL [facility] Auto Coag INR Coag (PPP) [Relative time] 0.96 {INR} Invalid Interpretation Code [facility] Auto Coag Comment on above: Interpretive Data: I NR results are specifically intended to assess patients stabilized on long-term Anticoagulation therapy suggested INR s Less Intensive Anticoagulation 2.0 3.0 Conventional Range 3.0 4.5 PT Coag (PPP) [Time] 10.7 s Normal 9.4 - 1 2.5 second(s) [facility] Auto Coag Comment on above: Interpretive Data: [...] the same coagulation reagent and instrumentation as [facility]. Currently there are no coagulation studies available worldwide for children to 14 days, and no normal ranges. Creatinineon 06-21-2024 Creatinine [Mass/Vol] 0.6 mg/dL Normal 0.5-1.3 [facility] Comment on above: Performed By: #### 2 [id number] #### [facility] [address] [place] [address] Stainon 06-21-2024 FMHV 0 mL Invalid Interpretation Code [facility] Comment on above: Performed By: #### 1 [id number] #### [facility] [address] [place] [address] Negative Control Negative Normal [facility] Comment on above: Performed By: #### 1 [id number] #### [facility] [address] [place] [address] Fibrinogenon 06-21-2024 Fibrinogen Coag (PPP) [Mass/Vol] 472 mg/dL High 200-393 [facility] Comment on above: Performed By: #### 2 [id number] #### [facility] [address] [place] [address] HEMATOLOGYOrdered By: SYSTEM SYSTEM on 06-21-2024 Erythrocyte [...] 06-21-2024 Albumin [Mass/Vol] 3.7 g/dL Normal 3.3-5.0 [facility] Comment on above: Performed By: #### 2 [id number] #### [facility] [address] [place] [address] Albumin/Globulin (S) [Mass conc ratio] 1.2 Normal 1.1-2.2 [facility] Comment on above: Performed By: #### 2 [id number] #### [facility] [address] [place] [address] ALP [Catalytic activity/Vol] 80 Int._Unit/L Normal 21-98 [facility] Comment on above: Performed By: #### 2 [id number] #### [facility] [address] [place] [address] ALT No additional P-5'-P [Catalytic activity/Vol] 8 Int._Unit/L Normal 6-46 [facility] Comment on above: Performed By: #### 2 [id number] #### [facility] [address] [place] [address] AST [Catalytic activity/Vol] 12 Int._Unit/L Normal 5-43 [facility] Comment on above: Performed By: #### 2 [id number] #### [facility] [address] [place] [address] Bilirubin [Mass/Vol] 0.6 mg/dL Normal 0.0-1.1 [facility] Comment on above: Performed By: #### 2 [id number] #### [facility] [address] [place] [address] Bilirubin.direct [Mass/Vol] 0.0 mg/dL Normal 0.0-0.4 [facility] Comment on above: Performed By: #### 2 [id number] #### [facility] [address] [place] [address] Bilirubin.indirect [Mass or moles/Vol] 0.6 mg/dL Normal 0.1-0.9 [facility] Comment on above: Performed By: #### 2 [id number] #### [facility] [address] [place] [address] Globulin (S) [Mass/Vol] 3.1 g/dL Normal 1.4-4.0 [facility] Comment on above: Performed By: #### 2 [id number] #### [facility] [address] [place] [address] Protein [Mass/Vol] 6.8 g/dL Normal 6.0-7.8 [facility] Comment on above: Performed By: #### 2 [id number] #### [facility] [address] [place] [address] Inpatient Clinical Summaryon 06-21-2024 Inpatient Clinical Summary Inpatient Clinical Summary [address] [address] Clinical Summary Person Information [facility] Age[facility] 23 Years : 2000 Sex: Female PCP: NONE, XXXX Marital Status: Phone: [phone] Race: White Ethnicity: Non- or Language: New [place]alander Visit Id: Visit Reason: BLOOD DISCHARGE Speciality: Acuity: Enc Type: Outpatient in a Bed Med Service: Obstetrics Arrival: 06/21/2024 16:32:45 Discharge: 06/21/2024 21:02:00 Dispo Type: Home (Routine DC) Address: [facility] [address] [id number] Provider Notes: Diagnosis: Problems Active (11/27/2023) Smoking [...] Follow up: With: Address: When: Anika Bob [address] [place] [address] Business (1) In 2 days 06/23/2024 Comments: Call for any problems. Call for fever > 100.5 F Call for severe abdominal pain Call physician if symptoms worsen Return for decreased movement Call Dr. 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 Patient Education Information: Normal [facility] Inpatient Patient Summaryon 06-21-2024 Inpatient Patient Summary Inpatient Patient Summary [address] [address] Patient Discharge Instructions PERSON INFORMATION [...] results: Follow up: With: Address: When: Anika Paulino [address], [place] [address] Business (1) In 2 days 06/23/2024 Comments: Call for any problems. 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 COOPER Award [...] QR code below. Thank you for choosing [facility] Normal [facility] Lyteson 06-21-2024 Anion gap [Moles/Vol] 12 mmol/L Normal 6-16 [facility] Comment on above: Performed By: #### 2 [id number] #### [facility] [address] [place] [facility] [place] [address] Chloride [Moles/Vol] 104 mmol/L Normal 101-111 [facility] Comment on above: Performed By: #### 2 [id number] #### [facility] [address] [place] [address] CO2 [Moles/Vol] 23 mmol/L Normal 21-31 [facility] Comment on above: Performed By: #### 2 [id number] #### [facility] [address] [place] [address] Potassium [Moles/Vol] 3.3 mmol/L Low 3.5-5.3 [facility] Comment on above: Performed By: #### 2 [id number] #### [facility] [address] [place] [address] Sodium [Moles/Vol] 136 mmol/L Normal 135-145 [facility] Comment on above: Performed By: #### 2 [id number] #### [facility] [address] [place] [address] PT & PTTon 06-21-2024 aPTT Coag (PPP) [Time] 28.6 second(s) Normal 25.1-36.5 [facility] Comment on above: Result Comment: Para [...] the same coagulation reagent and instrumentation as [facility]. Currently there are no coagulation studies available worldwide for children to 14 days, and no normal ranges. Heparin therapeutic range (represented by Anti-Factor Xa activity of 0.2 - 0.4 U/mL) corresponds to PTT of 56.6 - 109.0 sec. Performed By: #### 1 [id number] #### [facility] [address] [place] [address] INR Coag (PPP) [Relative time] 0.96 {INR} Invalid Interpretation Code [facility] Comment on above: Result Comment: INR results are specifically intended to assess patients stabilized on long-term Anticoagulation therapy suggested INR???s ???Less Intensive Anticoagulation??? 2.0 ??? 3.0 Conventional Range 3.0 ??? 4.5 Performed By: #### 1 [id number] #### [facility] [address] [place] [address] PT Coag (PPP) [Time] 10.7 second(s) Normal 9.4-12.5 [facility] Comment on above: Result Comment: 15 [...] the same coagulation reagent and instrumentation as [facility]. Currently there are no coagulation studies available worldwide for children to 14 days, and no normal ranges. Performed By: #### 1 [id number] #### [facility] [address] [place] [address] UA with Cult Rflxon 06-21-20 24 Bacteria Auto Ql (U) 1+ /HPF Abnormal Trace [facility] Comment on above: Performed By: #### 4 [id number] #### [facility] [address] [place] [address] Bilirubin Ql (U) Negative Normal Negative [facility] Comment on above: Performed By: #### 4 [id number] #### [facility] [address] [place] [address] Clarity (U) Turbid Abnormal Clear [facility] Comment on above: Performed By: #### 4 [id number] #### [facility] [address] [place] [address] Color (U) Yellow Normal Yellow [facility] Comment on above: Result Comment: Micr oscopic readings are only performed on those samples that meet specific criteria set forth by [facility]. Performed By: #### 4 [id number] #### [facility] [address] [place] [address] Epithelial cells.squamous Auto (Urine sed) [#/Area] >10 Invalid Interpretation Code [facility] Comment on above: Performed By: #### 4 [id number] #### [facility] [address] [place] [address] Glucose Ql (U) Negative Normal Negative [facility] Comment on above: Performed By: #### 4 [id number] #### [facility] [address] [place] [address] Hemoglobin Auto test strip (U) [Mass/Vol] 1+ mg/dL Abnormal Negative [facility] Comment on above: Performed By: #### 4 [id number] #### [facility] [address] [place] [address] Ketones Auto test strip Ql (U) 2+ mg/dL Abnormal Negative [facility] Comment on above: Performed By: #### 4 [id number] #### [facility] [address] [place] [address] Leukocyte esterase Auto test strip Ql (U) 75 Daniele/uL Abnormal Negative [facility] Comment on above: Performed By: #### 4 [id number] #### [facility] [address] [place] [address] Mucus Auto Ql (U) 1+ CD:[id number] Abnormal Negative [facility] Comment on above: Performed By: #### 4 [id number] #### [facility] [address] [place] [address] Nitrite Auto test strip Ql (U) Negative Normal Negative [facility] Comment on above: Performed By: #### 4 [id number] #### [facility] [address] [place] [address] pH (U) 6.0 [pH] Invalid Interpretation Code 5.0-9.0 [facility] Comment on above: Performed By: #### 4 [id number] #### [facility] [address] [place] [address] Protein Ql (U) Trace Abnormal Negative [facility] Comment on above: Performed By: #### 4 [id number] #### [facility] [address] [place] [address] RBC Ql (U) 0-3 Normal 0-3 [facility] Comment on above: Performed By: #### 4 [id number] #### [facility] [address] [place] [address] Specific gravity (U) [Rel density] 1.026 Invalid Interpretation Code 1.005-1.030 [facility] Comment on above: Performed By: #### 4 [id number] #### [facility] [address] [place] [address] Urobilinogen (U) [Mass/Vol] 3 mg/dL Abnormal Negative [facility] Comment on above: Performed By: #### 4 [id number] #### [facility] [address] [place] [address] WBC Auto (Urine sed) [#/Area] 0-5 Normal 0-5 [facility] Comment on above: Performed By: #### 4 [id number] #### [facility] [address] [place] [address] Type of Urine collection method Clean Catch Normal [facility] Comment on above: Performed By: #### 4 [id number] #### [facility] [address] [place] [address] URINALYSISOrdered By: SYSTEM SYSTEM on 06-21-2024 Bacteria Auto Ql (U) 1+ /HPF Invalid Interpretation Code Trace/HPF FT UA Auto SS Bilirubin Ql (U) Negative Normal Negativemg/ d L FT UA Auto SS Clarity (U) Turbid *ABN* (06/21/24 4:47 PM) Invalid Interpretation Code Clear [facility] UA Auto SS Color (U) Yellow 1 (06/21/24 4:47 PM) Normal Yellow [facility] UA Auto SS Comment on above: Interpretive Data: M icroscopic readings are only performed on those samples that meet specific criteria set forth by [facility]. Epithelial cells.squamous Auto (Urine sed) [...] Desc Clean Catch (06/21/24 4:47 PM) Normal [facility] UA Auto SS Uric Acidon 06-21-2024 Urate [Mass/Vol] 3.6 mg/dL Normal 2.2-7.4 [facility] Comment on above: Performed By: #### 2 [id number] #### [facility] [address] [place] [address] eGFRon 06-21-2024 eGFR 129 mL/min/1.73 m2 Normal >=59 [facility] Comment on above: Performed By: #### 1 [id number] #### [facility] [address] [place] [address] CBC panel Auto (Bld)on 06-18 Hematocrit (Bld) [Volume fraction] 33 % [facility] Hemoglobin (Bld) [Mass/Vol] 11.2 g/dL [facility] CHEMISTRYOrdered By: SYSTEM SYSTEM on 06-18-2024 Glucose [...] 79 mg/dL Normal 55 - 99 mg/dL [facility] POC Subsection POC Device SN [id number] Invalid Interpretation Code [facility] POC Subsection POC User ID [id number] Invalid Interpretation Code [facility] POC Subsection POC Username TOMMY VILLANUEVA Invalid Interpretation Code [facility] POC Subsection Capillary Glucose POCon 05-24 Glucose [Mass/Vol] 79 mg/dL Normal 55-99 [facility] Comment on above: Performed By: #### 2 [id number] #### [facility] [address] [place] [address] Glu 1 Hron 06-18-2024 Glucose [Mass/Vol] 171 mg/dL Normal 55-180 [facility] Comment on above: Performed By: #### 2 [id number] #### [facility] [address] [place] [address] Glu 2 Hron 06-18-2024 Glucose [Mass/Vol] 166 mg/dL High 55-155 [facility] Comment on above: Performed By: #### 2 [id number] #### [facility] [address] [place] [address] Glu 3 Hron 06-18-2024 Glucose [Mass/Vol] 113 mg/dL Normal 55-140 [facility] Comment on above: Performed By: #### 2 [id number] #### [facility] [address] [place] [address] Glu Fastingon 06-18-2024 Glucose [Mass/Vol] 76 mg/dL Normal 55-99 [facility] Comment on above: Performed By: #### 2 [id number] #### [facility] [address] [place] [address] Gest Scr Glu 1 Hron 06-16-20 24 Glucose [Mass/Vol] 142 mg/dL High 55-140 [facility] Comment on above: Performed By: #### 3 [id number] #### [facility] [address] [place] [address] Glu 1 Hron 06-16-2024 Gluc 1 Hr See comment Invalid Interpretation Code 55-180 [facility] Comment on above: Result Comment: Wron g test ordered. Corrected report sent with correct order of a Gestational Screen 1 hour glucose. Performed By: #### 2 [id number] #### [facility] [address] [place] [address] RPR with Conf Rfxon 06-14-20 24 Reagin Ab RPR Ql (S) Non-Reactive Invalid Interpretation Code Non Reactive [facility] Comment on above: Result Comment: Perf ormed at: [facility] [address] [id number] PhD Tim Quezada Performed By: #### 1 [id number] #### [facility] [address] [place] [address] CHEMISTRYOrdered By: SYSTEM SYSTEM on 06-13-2024 Glucose [Mass/Vol] 142 mg/dL Normal 55 - 180 mg/dL Remisol Chem Glu 1 Hron 06-13-2024 Glucose [Mass/Vol] 142 mg/dL Normal 55-180 [facility] Comment on above: Performed By: #### 2 [id number] #### [facility] [address] [place] [address] HEMATOLOGYOrdered By: SYSTEM SYSTEM on 06-13-2024 Hematocrit (Bld) [Volume fraction] 32.5 % Low 34.0 - 46.0 % Remisol Heme Hemoglobin (Bld) [Mass/Vol] 11.2 g/dL Low 12.0 - 16.0 gm/dL Remisol Heme Hematocriton 06-13-2024 Hematocrit (Bld) [Volume fraction] 32.5 % Low 34.0-46.0 [facility] Comment on above: Performed By: #### 2 [id number] #### [facility] [address] [place] [address] Hemoglobinon 06-13-2024 Hemoglobin (Bld) [Mass/Vol] 11.2 g/dL Low 12.0-16.0 [facility] Comment on above: Performed By: #### 2 [id number] #### [facility] [address] [place] [address] C Urineon 06-05-2024 Bacteria identified Cx Nom [...] R1: This test was performed at: [facility], [address] [place] [address], [address] [place] [address], [facility] Comment on above: Performed By: #### 2 [id number] #### [facility] [address] [place] [address] Inpatient Clinical Summaryon 06-05-2024 Inpatient Clinical Summary Inpatient Clinical Summary [address] [address] Clinical Summary Person Information Name: LUZ HINOJOSA[place] Age: 23 Years : 2000 Sex: Female PCP: NONE, XXXX Marital Status: Phone: [phone] Race: White Ethnicity: Non- or Language: New Zealander Visit Id: Visit Reason: 27 WEEKS , CONTRACTIONS Speciality: Acuity: Obs Enc Type: Observation Med Service: Obstetrics Arrival: 06/03/2024 20:07:36 Discharge: 06/05/2024 14:16:23 Dispo Type: Home (Routine DC) Address: [address] [place] [id number] Provider Notes: Diagnosis: 27 weeks gestation of [...] /HPF UA Bili: Negative mg/dL UA Color: Light-Bent UA Glucose: Negative mg/dL UA Ketones: 3+ [...] Follow up: With: Address: When: Dr. Bob [phone] Within 3 to 4 days Comments: Call for any problems. Call physician for heavy vaginal bleeding Call physician if sy (more content not included)... Normal [facility] Inpatient Patient Summaryon 06-05-2024 Inpatient Patient Summary Inpatient Patient Summary [place] [id number] Patient Discharge Instructions PERSON INFORMATION Name: LUZ [...] Follow up: With: Address: When: Dr. Bob [phone] Within 3 to 4 days Comments: Call for any problems. Call physician for heavy vaginal bleeding Call physician if symptoms worsen Return for contractions closer, longer, harder Return for decreased movement In the event that this physician does not participate in your insurance network, please consult with your insurance company to find a nearby participating provider. Comment: I, LUZ HINOJOSA, have received the attached patient education materials/instructions and have verbalized understanding. Patient Signature Date Clinican/Nurse Signature Date MEDICATION LIST New Medications [facility] 1986, [address] [place], [place] [id number], [phone] cephalexin (Keflex 500 mg Cap) 1 Capsules By Mouth 4 times a day for 7 Days. Refills: 0. Last Dose: _Next Dose: _ Medications to Continue with No Changes Other Medications multivitamin, ( Multivitamins) 1 Tablets By Mouth every day. Last Dose: _Next Dose: _ Pharmacy Information: PATIENT EDUCATION INFORMATION Instructions: Medication Leaflets: You may receive a survey from [employer] asking you to rate your care experience. [...] signed up for this yet, please contact [employer] at [phone] to get signed up today. COOPER Award [...] QR code below. Thank you for choosing [facility] Normal [facility] BLOOD BANKOrdered By: Joshua Guthrie on 06-04-2024 FMHV 0 mL Invalid Interpretation Code [facility] HemeManSS BUNon 06-04-2024 Urea nitrogen [Mass/Vol] 6 mg/dL Normal 5-21 [facility] Comment on above: Performed By: #### 2 [id number] #### [facility] [address] [place] [address] CBC w/Indiceson 06-04-2024 Erythrocyte distribution width (RBC) [Ratio] 12.6 % Normal 10.9-14.2 [facility] Comment on above: Performed By: #### 2 [id number] #### [facility] [address] [place] [address] Hematocrit (Bld) [Volume fraction] 33.7 % Low 34.0-46.0 [facility] Comment on above: Performed By: #### 2 [id number] #### [facility] [address] [place] [address] Hemoglobin (Bld) [Mass/Vol] 11.6 g/dL Low 12.0-16.0 [facility] Comment on above: Performed By: #### 2 [id number] #### [facility] [address] [place] [address] MCH (RBC) [Entitic mass] 29.8 pg Normal 27.0-34.0 [facility] Comment on above: Performed By: #### 2 [id number] #### [facility] [address] [place] [address] MCHC (RBC) [Mass/Vol] 34.5 g/dL Normal 31.4-36.0 [facility] Comment on above: Performed By: #### 2 [id number] #### [facility] [address] [place] [address] MCV (RBC) [Entitic vol] 86.5 fL Normal 80.0-100.0 [facility] Comment on above: Performed By: #### 2 [id number] #### [facility] [address] [place] [address] Platelet mean volume (Bld) [Entitic vol] 8.4 fL Normal 6.4-10.8 [facility] Comment on above: Performed By: #### 2 [id number] #### [facility] [address] [place] [address] Platelets (Bld) [#/Vol] 315.0 E9/L Normal 150.0-500.0 [facility] Comment on above: Performed By: #### 2 [id number] #### [facility] [address] [place] [address] RBC (Bld) [#/Vol] 3.9 E12/L Low 4.3-5.9 [facility] Comment on above: Performed By: #### 2 [id number] #### [facility] [address] [place] [address] [place] [address] RBC size Nom (Bld) NORMAL Invalid Interpretation Code [facility] Comment on above: Performed By: #### 2 [id number] #### [facility] [address] [place] [address] WBC corrected for nucl RBC Auto (Bld) [#/Vol] 14.6 E9/L High 4.0-11.0 [facility] Comment on above: Performed By: #### 2 [id number] #### [facility] [address] [place] [address] CHEMISTRYOrdered By: SYSTEM SYSTEM on 06-04-2024 Albumin [...] 26.6 s Normal 25.1 - 36.5 second(s) [facility] Auto Coag Comment on above: Interpretive Data: [...] the same coagulation reagent and instrumentation as [facility]. Currently there are no coagulation studies available worldwide for children to 14 days, and no normal ranges. Heparin therapeutic range (represented by Anti-Factor Xa activity of 0.2 - 0.4 U/mL) corresponds to PTT of 56.6 - 109.0 sec. Fibrinogen Coag (PPP) [Mass/Vol] 460 mg/dL High 200 - 393 mg/dL [facility] [facility] INR Coag (PPP) [Relative time] 0.94 {INR} Invalid Interpretation Code [facility] Comment on above: Interpretive Data: I NR results are specifically intended to assess patients stabilized on long-term Anticoagulation therapy suggested INR s Less Intensive Anticoagulation 2.0 3.0 Conventional Range 3.0 4.5 PT Coag (PPP) [Time] 10.5 s Normal 9.4 - 1 2.5 second(s) [facility] Auto Coag Comment on above: Interpretive Data: [...] the same coagulation reagent and instrumentation as [facility]. Currently there are no coagulation studies available worldwide for children to 14 days, and no normal ranges. Creatinineon 06-04-2024 Creatinine [Mass/Vol] 0.6 mg/dL Normal 0.5-1.3 [facility] Comment on above: Performed By: #### 2 [id number] #### [facility] [address] [place] [address] Stainon 06-04-2024 FMHV 0 mL Invalid Interpretation Code [facility] Comment on above: Performed By: #### 1 [id number] #### [facility] [address] [place] [address] Negative Control Negative Normal [facility] Comment on above: Performed By: #### 1 [id number] #### [facility] [address] [place] [address] Fibrinogenon 06-04-2024 Fibrinogen Coag (PPP) [Mass/Vol] 460 mg/dL High 200-393 [facility] Comment on above: Performed By: #### 2 [id number] #### [facility] [address] [place] [address] HEMATOLOGYOrdered By: SYSTEM SYSTEM on 06-04-2024 Erythrocyte [...] 06-04-2024 Albumin [Mass/Vol] 3.5 g/dL Normal 3.3-5.0 [facility] Comment on above: Performed By: #### 2 [id number] #### [facility] [address] [place] [address] Albumin/Globulin (S) [Mass conc ratio] 1.2 Normal 1.1-2.2 [facility] Comment on above: Performed By: #### 2 [id number] #### [facility] [address] [place] [address] ALP [Catalytic activity/Vol] 64 Int._Unit/L Normal 21-98 [facility] Comment on above: Performed By: #### 2 [id number] #### [facility] [address] [place] [address] ALT No additional P-5'-P [Catalytic activity/Vol] 6 Int._Unit/L Normal 6-46 [facility] Comment on above: Performed By: #### 2 [id number] #### [facility] [address] [place] [address] AST [Catalytic activity/Vol] 12 Int._Unit/L Normal 5-43 [facility] Comment on above: Performed By: #### 2 [id number] #### [facility] [address] [place] [address] Bilirubin [Mass/Vol] 0.3 mg/dL Normal 0.0-1.1 [facility] Comment on above: Performed By: #### 2 [id number] #### [facility] [address] [place] [address] Bilirubin.direct [Mass/Vol] 0.1 mg/dL Normal 0.0-0.4 [facility] Comment on above: Performed By: #### 2 [id number] #### [facility] [address] [place] [address] Bilirubin.indirect [Mass or moles/Vol] 0.2 mg/dL Normal 0.1-0.9 [facility] Comment on above: Performed By: #### 2 [id number] #### [facility] [address] [place] [address] Globulin (S) [Mass/Vol] 2.9 g/dL Normal 1.4-4.0 [facility] Comment on above: Performed By: #### 2 [id number] #### [facility] [address] [place] [address] Protein [Mass/Vol] 6.4 g/dL Normal 6.0-7.8 [facility] Comment on above: Performed By: #### 2 [id number] #### [facility] [address] [place] [address] Lyteson 06-04-2024 Anion gap [Moles/Vol] 13 mmol/L Normal 6-16 [facility] Comment on above: Performed By: #### 2 [id number] #### [facility] [address] [place] [address] Chloride [Moles/Vol] 105 mmol/L Normal 101-111 [facility] Comment on above: Performed By: #### 2 [id number] #### [facility] [address] [place] [address] CO2 [Moles/Vol] 21 mmol/L Normal 21-31 [facility] Comment on above: Performed By: #### 2 [id number] #### [facility] [address] [place] [address] Potassium [Moles/Vol] 3.4 mmol/L Low 3.5-5.3 [facility] Comment on above: Performed By: #### 2 [id number] #### [facility] [address] [place] [address] Sodium [Moles/Vol] 136 mmol/L Normal 135-145 [facility] Comment on above: Performed By: #### 2 [id number] #### [facility] [address] [place] [address] PT & PTTon 06-04-2024 aPTT Coag (PPP) [Time] 26.6 second(s) Normal 25.1-36.5 [facility] Comment on above: Result Comment: Para [...] the same coagulation reagent and instrumentation as [facility]. Currently there are no coagulation studies available worldwide for children to 14 days, and no normal ranges. Heparin therapeutic range (represented by Anti-Factor Xa activity of 0.2 - 0.4 U/mL) corresponds to PTT of 56.6 - 109.0 sec. Performed By: #### 1 [id number] #### [facility] [address] [place] [address] INR Coag (PPP) [Relative time] 0.94 {INR} Invalid Interpretation Code [facility] Comment on above: Result Comment: INR results are specifically intended to assess patients stabilized on long-term Anticoagulation therapy suggested INR???s ???Less Intensive Anticoagulation??? 2.0 ??? 3.0 Conventional Range 3.0 ??? 4.5 Performed By: #### 1 [id number] #### [facility] [address] [place] [address] PT Coag (PPP) [Time] 10.5 second(s) Normal 9.4-12.5 [facility] Comment on above: Result Comment: 15 [...] the same coagulation reagent and instrumentation as [facility]. Currently there are no coagulation studies available worldwide for children to 14 days, and no normal ranges. Performed By: #### 1 [id number] #### [facility] [address] [place] [address] U Drug Screenon 06-04-2024 Amphetamines Screen method >1000 ng/mL Ql (U) Negative Normal NEGATIVE [facility] Comment on above: Result Comment: Nega tive Cutoff: <1000 ng/mL Performed By: #### 2 [id number] #### [facility] [address] [facility] [place] [address] Barbiturates Screen Ql (U) Negative Normal NEGATIVE [facility] Comment on above: Result Comment: Nega tive Cutoff: <200 ng/mL Performed By: #### 2 [id number] #### [facility] [address] [place] [address] Benzodiazepines Ql (U) Negative Normal NEGATIVE [facility] Comment on above: Result Comment: Nega tive Cutoff: <200 ng/mL Performed By: #### 2 [id number] #### [facility] [address] [place] [facility] [place] [address] Cannabinoids Screen Ql (U) Negative Normal NEGATIVE [facility] Comment on above: Result Comment: Nega tive Cutoff: <50 ng/mL Performed By: #### 2 [id number] #### [facility] [address] [place] [address] Cocaine Ql (U) Negative Normal NEGATIVE [facility] Comment on above: Result Comment: Nega tive Cutoff: <300 ng/mL Performed By: #### 2 [id number] #### [facility] [address] [place] [facility] [place] [address] Opiates Screen Ql (U) Negative Normal NEGATIVE [facility] Comment on above: Result Comment: Nega tive Cutoff: <300 ng/mL Performed By: #### 2 [id number] #### [facility] [address] [place] [address] Phencyclidine Screen method >25 ng/mL Ql (U) Negative Normal NEGATIVE [facility] Comment on above: Result Comment: Nega tive Cutoff: <25 ng/mL These drug screen results are to be used for medical (i.e., treatment) purposes only. Unconfirmed drug screening results must not be used for non-medical purposes (e.g., employment testing, legal testing). Performed By: #### 2 [id number] #### [facility] [address] [place] [facility] [place] [address] U Fentanyl Negative Normal NEGATIVE [facility] Comment on above: Result Comment: Nega tive Cutoff: <5 ng/mL These drug screen results are to be used for medical (i.e., treatment) purposes only. Unconfirmed drug screening results must not be used for non-medical purposes (e.g., employment testing, legal testing). Performed By: #### 2 [id number] #### [facility] [address] [place] [address] Uric Acidon 06-04-2024 Urate [Mass/Vol] 4.0 mg/dL Normal 2.2-7.4 [facility] Comment on above: Performed By: #### 2 [id number] #### [facility] [address] [place] [address] eGFRon 06-04-2024 eGFR 129 mL/min/1.73 m2 Normal >=59 [facility] Comment on above: Performed By: #### 1 [id number] #### [facility] [address] [place] [address] CHEMISTRYOrdered By: SYSTEM SYSTEM on 06-03-2024 Amphetamines [...] Nom (U) 3,000 cfu/ml Mixed skin contaminants [facility] UA with Cult Rflxon 06-03-20 24 Bacteria Auto Ql (U) 3+ /HPF Abnormal Trace Fish er [facility] Comment on above: Performed By: #### 4 [id number] #### [facility] [address] [place] [address] Bilirubin Ql (U) Negative Normal Negative [facility] Comment on above: Performed By: #### 4 [id number] #### [facility] [address] [place] [address] Clarity (U) Ex.Turbid Abnormal Clear [facility] Comment on above: Performed By: #### 4 [id number] #### [facility] [address] [place] [address] Color (U) Light-Bent Abnormal Yellow [facility] Comment on above: Result Comment: Micr oscopic readings are only performed on those samples that meet specific criteria set forth by [facility]. Performed By: #### 4 [id number] #### [facility] [address] [place] [address] Epithelial cells.squamous Auto (Urine sed) [#/Area] >10 Invalid Interpretation Code [facility] Comment on above: Performed By: #### 4 [id number] #### [facility] [address] [place] [address] Glucose Ql (U) Negative Normal Negative [facility] Comment on above: Performed By: #### 4 [id number] #### [facility] [address] [place] [address] Hemoglobin Auto test strip (U) [Mass/Vol] Negative Normal Negative [facility] Comment on above: Performed By: #### 4 [id number] #### [facility] [address] [place] [address] Ketones Auto test strip Ql (U) 3+ mg/dL Abnormal Negative [facility] Comment on above: Performed By: #### 4 [id number] #### [facility] [address] [place] [address] Leukocyte esterase Auto test strip Ql (U) 500 Daniele/uL Abnormal Negative [facility] Comment on above: Performed By: #### 4 [id number] #### [facility] [address] [place] [address] Mucus Auto Ql (U) Trace Normal Negative [facility] Comment on above: Performed By: #### 4 [id number] #### [facility] [address] [place] [address] Nitrite Auto test strip Ql (U) Negative Normal Negative [facility] Comment on above: Performed By: #### 4 [id number] #### [facility] [address] [place] [address] pH (U) 6.0 [pH] Invalid Interpretation Code 5.0-9.0 [facility] Comment on above: Performed By: #### 4 [id number] #### [facility] [address] [place] [address] Protein Ql (U) 1+ mg/dL Abnormal Negative [facility] Comment on above: Performed By: #### 4 [id number] #### [facility] [address] [place] [address] Specific gravity (U) [Rel density] 1.020 Invalid Interpretation Code 1.005-1.030 [facility] Comment on above: Performed By: #### 4 [id number] #### [facility] [address] [place] [address] S[place]matoz[place] Auto (Urine sed) [#/Area] Present Abnormal [facility] Comment on above: Performed By: #### 4 [id number] #### [facility] [address] [place] [address] Urobilinogen (U) [Mass/Vol] Negative Normal Negative [facility] Comment on above: Performed By: #### 4 [id number] #### [facility] [address] [place] [address] WBC Auto (Urine sed) [#/Area] 16-25 Abnormal 0-5 [facility] Comment on above: Performed By: #### 4 [id number] #### [facility] [address] [place] [address] Type of Urine collection method Clean Catch Normal [facility] Comment on above: Performed By: #### 4 [id number] #### [facility] [address] [place] [address] URINALYSISOrdered By: SYSTEM SYSTEM on 06-03-2024 Bacteria Auto Ql (U) 3+ /HPF Invalid Interpretation Code Trace/HPF [facility] UA Auto SS Bilirubin Ql (U) Negative Normal Negativemg/ d L [facility] UA Auto SS Clarity (U) Ex.Turbid *ABN* (06/03/24 8:26 PM) Invalid Interpretation Code Clear [facility] UA Auto SS Color (U) Light-Bent 3 *ABN* (06/03/24 8:26 PM) Invalid Interpretation Code Yellow [facility] UA Auto SS Comment on above: Interpretive Data: M icroscopic readings are only performed on those samples that meet specific criteria set forth by [facility]. Epithelial cells.squamous Auto (Urine sed) [#/Area] >10 graded/HPF Invalid Interpretation Code [facility] UA Auto SS Glucose Ql (U) Negative Normal Negativemg/d L [facility] Auto SS Hemoglobin Auto test strip (U) [Mass/Vol] Negative Normal Negativemg/d L [facility] Auto SS Ketones Auto test strip [...] PM) Invalid Interpretation Code 1.005 - 1.030 [facility] UA Auto SS [place] Auto (Urine sed) [#/Area] Present graded/HPF Invalid Interpretation Code [facility] UA Auto SS Urobilinogen (U) [Mass/Vol] Negative Normal Negativemg/d L [facility] Auto SS WBC Auto (Urine sed) [#/Area] 16-25 graded/HPF Invalid Interpretation Code 0-5graded/HP [facility] UA Auto SS URINALYSISOrdered By: Yulisa Gomez on 06-03-2024 UA Spec Desc Clean Catch (06/03/24 8:26 PM) Normal [facility] UA Auto SS PAP [id number] 02-08-2024 Cytology report Cyto stain Doc (Cvx/Vag) Note Invalid Interpretation Code [facility] Comment on above: Result Comment: TEST S RESULT FLAG UNITS REF RANGE LAB Clinician Provided Cytology Information Source.............[employer] No. of containers..01 ThinPrep Vial DIAGNOSIS: 01 NEGATIVE FOR INTRAEPITHELIAL LESION OR MALIGNANCY. Specimen adequacy: 01 Satisfactory for evaluation. No endocervical component is identified. Performed by: Antonio Thompson, Rn Gynecology (ASCP) . 01 Note: Note 02 The Pap [...] <-Panic Low,>-Panic High,A-Abnormal,AA-Critical Abnormal Performed at: 01 [employer] [facility] [address] [place] [address] Michele Sims MD, 02 WB [facility] [address] [address] Jen Carpio MD, Performed at: [employer] [facility] [address] [address] [place], [place] [id number] MD Bethany Bautista Performed By: #### 3 [id number] #### [facility] [address] [place] [address] Urineon 02-07-2024 Bacteria identified Cx Nom (U) [...] R1: This test was performed at: [facility], [address] [place] [address], [address] , [place], Normal [facility] Comment on above: Performed By: #### 2 [id number] #### [facility] [address] [place] [address] HIV Screen 4th Generation wR fxon 02-07-2024 HIV 1+2 Ab+HIV1 p24 Ag IA Ql Non-Reactive Invalid Interpretation Code Non Reactive [facility] Comment on above: Result Comment: HIV- 1/HIV-2 antibodies and HIV-1 p24 antigen were NOT detected. There is no laboratory evidence of HIV infection. HIV Negative Performed at: [address] [id number] PhD Tim Quezada Performed By: #### 9 [id number] #### [facility] [address] [place] [address] Hep Bs Agon 02-07-2024 HBV surface Ag IA Ql Negative Invalid Interpretation Code Negative [facility] Comment on above: Result Comment: Perf ormed at: [address] [id number] PhD Tim Quezada Performed By: #### 2 [id number] #### [facility] [address] [place] [address] RPR with Conf Rfxon 02-07-20 24 Reagin Ab RPR Ql (S) Non-Reactive Invalid Interpretation Code Non Reactive [facility] Comment on above: Result Comment: Perf ormed at: [address] [id number] PhD Tim Quezada Performed By: #### 1 [id number] #### [facility] [address] [place] [address] Rubella IgGon 02-07-2024 Rubella virus IgG Qn (S) 2.78 [IU]/mL Invalid Interpretation Code Immune >0.99 [facility] Comment on above: Result Comment: Non- immune <0.90 Equivocal 0.90 - 0.99 Immune >0.99 Performed at: [address] [id number] PhD Tim Quezada Performed By: #### 1 [id number] #### [facility] [address] [place] [address] ABO/Rhon 02-05-2024 ABO/Rh Positive Invalid Interpretation Code [facility] Comment on above: Performed By: #### 2 [id number] #### [facility] [address] [place] [address] ABSCon 02-05-2024 ABSC Gel Interp Negative Normal [facility] Comment on above: Performed By: #### 1 [id number] #### [facility] [address] [place] [address] CBC w/Indiceson 02-05-2024 Erythrocyte distribution width (RBC) [Ratio] 13.4 % Normal 10.9-14.2 [facility] Comment on above: Performed By: #### 2 [id number] #### [facility] [address] [place] [address] Hematocrit (Bld) [Volume fraction] 40.9 % Normal 34.0-46.0 [facility] Comment on above: Performed By: #### 2 [id number] #### [facility] [address] [place] [address] Hemoglobin (Bld) [Mass/Vol] 13.7 g/dL Normal 12.0-16.0 [facility] Comment on above: Performed By: #### 2 [id number] #### [facility] [address] [place] [address] MCH (RBC) [Entitic mass] 30.6 pg Normal 27.0-34.0 [facility] Comment on above: Performed By: #### 2 [id number] #### [facility] [address] [place] [address] MCHC (RBC) [Mass/Vol] 33.5 g/dL Normal 31.4-36.0 [facility] Comment on above: Performed By: #### 2 [id number] #### [facility] [address] [place] [address] MCV (RBC) [Entitic vol] 91.3 fL Normal 80.0-100.0 [facility] Comment on above: Performed By: #### 2 [id number] #### [facility] [address] [place] [address] Platelet 330.0 E9/L Normal 150.0-500.0 [facility] Comment on above: Performed By: #### 2 [id number] #### [facility] [address] [place] [address] Platelet mean volume (Bld) [Entitic vol] 9.4 fL Normal 6.4-10.8 [facility] Comment on above: Performed By: #### 2 [id number] #### [facility] [address] [place] [address] RBC (Bld) [#/Vol] 4.5 E12/L Normal 4.3-5.9 [facility] Comment on above: Performed By: #### 2 [id number] #### [facility] [address] [place] [address] RBC size Nom (Bld) NORMAL Invalid Interpretation Code [facility] Comment on above: Performed By: #### 2 [id number] #### [facility] [address] [place] [address] WBC corrected for nucl RBC Auto (Bld) [#/Vol] 10.9 E9/L Normal 4.0-11.0 [facility] Comment on above: Performed By: #### 2 [id number] #### [facility] [address] [place] [address] PAP [id number] 02-05-2024 Collection Technique BRUSH-SPATULA Normal [facility] Comment on above: Performed By: #### 3 [id number] #### [facility] [address] [place] [address] Gynecological Body Site ENDOCERVIX Normal [facility] Comment on above: Performed By: #### 3 [id number] #### [facility] [address] [place] [address] CBC panel Auto (Bld)on 02-03 Hematocrit (Bld) [Volume fraction] 41 % [facility] Hemoglobin (Bld) [Mass/Vol] 13.7 g/dL [facility] HBV surface Ag IA Qlon 02-03 External Hepatitis B Surface Ag Negative Negative, None Detected [facility] HIV 1+2 Ab+HIV1 p24 Ag IA Ql on 02-04-2024 HIV-1/HIV-2 Ab Negative [facility] Laboratory - Microbiology an d Antimicrobial susceptibilityon 02-04-2024 HCV Ab IA Ql Negative [facility] Reagin Ab RPR Ql (S) Non-Reactive Nonreactive S [facility] Rubella virus IgG Ql (S) Immune [facility] N. gonorrhoeae DNA GIOVANNI+probe Ql (Cervical mucus)on 02-04-2024 C. trachomatis rRNA GIOVANNI+probe Ql (Unsp spec) Negative [facility] N. gonorrhoeae rRNA GIOVANNI+probe Ql (Unsp spec) Negative [facility] No Panel Informationon 02-03 [facility] Physician Orderon 01-13-2024 Physician Order [id number] F Normal [facility] BhCG Quanton 01-09-2024 [place] [address] m[IU]/mL High 1-3 [facility] Comment on above: Result Comment: 'F N ON < 1 - 3' ' 0.2 - 1 WEEK = 5 TO 50' ' 1 - 2 WEEKS = 50 - 500' ' 2 - 3 WEEKS = 100 - 5000' ' 3 - 4 WEEKS = 500 - 47301' ' 4 - 5 WEEKS = 1000 - 29871' ' 5 - 6 WEEKS = 88710 - 704896' ' 6 - 8 WEEKS = 79629 - 244959' ' 8 - 12 WEEKS = 89216 - 912481' Performed By: #### 2 [id number] #### [facility] [address] [place] [address] CHEMISTRYOrdered By: SYSTEM SYSTEM on 01-09-2024 [place] [address] m[IU]/mL High 1 - 3 mIU/mL [facility] Comment on above: Result Comment: 'F N ON < 1 - 3' ' 0.2 - 1 WEEK = 5 TO 50' ' 1 - 2 WEEKS = 50 - 500' ' 2 - 3 WEEKS = 100 - 5000' ' 3 - 4 WEEKS = 500 - 59822' ' 4 - 5 WEEKS = 1000 - 08158' ' 5 - 6 WEEKS = 53961 - 214355' ' 6 - 8 WEEKS = 02120 - 675001' ' 8 - 12 WEEKS = 32973 - 898598' Progesterone Lvl 80.38 ng/mL Invalid Interpretation Code [...] for Treatmenton 12-21 Consent for Treatment [id number] F Normal [facility] Physician Orderon 01-09-2024 Physician Order [id number]#[id number] FF Normal [facility] Progesteroneon 01-09-2024 Progesterone Lvl 80.38 ng/mL Invalid Interpretation Code [facility] Comment on above: Result Comment: 'F N ON FOLLICULAR = 0.10 - 0.60' 'LUTEAL = 3.00 - 17.5' 'MIDLUTEAL = 3.30 - 18.6' 'POST-MENOPAUSE = 0.10 - 0.40' '-FIRST TRIMESTER = 8.30 - 66.5' 'SECOND TRIMESTER = 18.9 - 66.1' 'THIRD TRIMESTER = 35.8 - 312.4' 'MALES = 0.14 - 2.06' Result Verified by Dilution Performed By: #### 2 [id number] #### [facility] [address] [place] [address] Anti-Mullerian Hormone (AMH) on 09-27-2023 Mullerian inhibiting substance [Mass/Vol] 1.81 ng/mL Invalid Interpretation Code [facility] Comment on above: Result Comment: For assays employing antibodies, the possibility exists for interference by heterophile antibodies in the samples.1 1.Hermelinda Durán Interferences in Immunoassays - still a threat. Clin. Chem. 2000; 46: 4413-1174. This test was developed and its performance characteristics determined by [employer]. It has not been cleared or approved by the Food and Drug Administration. Reference Range: Females 20 - 25y: 1.23 - 11.51 Median 4.70 AMH concentrations of >= 1.06 ng/mL is correlated with a better response to ovarian stimulation, produced more retrievable oocytes and higher odds of live according to Gleicher et al. Fertility and Sterility. 2010: 94:3960-7445. The current AMH test method correlates with [...] exclude an AMH-secreting ovarian tumor. Performed at: [facility] [address] [place] [address] [id number] MD Todd Bedoya Performed By: #### 2 [id number], [id number], [id number], [id number], [id number] #### Nick [facility] [address] [place] [address] FSH and LHon 09-27-2023 Follitropin Qn 2.8 m[IU]/mL Invalid Interpretation Code [facility] Comment on above: Result Comment: Adul t Female Range Follicular phase 3.5 - 12.5 Ovulation phase 4.7 - 21.5 Luteal phase 1.7 - 7.7 Postmenopausal 25.8 - 134.8 Performed at: [address] [id number] PhD Tim Quezada Performed By: #### 2 559054, [id number], [id number], [id number], [id number] #### [facility] [address] [place] [address] Lutropin Qn 3.8 m[IU]/mL Invalid Interpretation Code [facility] Comment on above: Result Comment: Adul t Female Range Follicular phase 2.4 - 12.6 Ovulation phase 14.0 - 95.6 Luteal phase 1.0 - 11.4 Postmenopausal 7.7 - 58.5 Performed By: #### 2 508677, [id number], [id number], [id number], [id number] #### [facility] [address] [place] [address] Insulin Lvlon 09-27-2023 Insulin Qn 31.9 u[IU]/mL High 2.6-24.9 [facility] Comment on above: Result Comment: Perf ormed at: [address] [id number] PhD Tim Quezada Performed By: #### 2 122530, [id number], [id number], [id number], [id number] #### [facility] [address] [place] [address] CHEMISTRYOrdered By: SYSTEM SYSTEM on 09-22-2023 Prolactin 14.07 ng/mL Normal 3.34 - 26.72 ng/mL Remisol Chem TSH Qn 1.94 m[IU]/L Normal 0.34 - 5.60 mcIU/mL Remisol Chem Consent for Treatmenton Consent for Treatment [id number]#[id number] F Normal [facility] Physician Orderon 09-22-2023 Physician Order [id number]#[id number] F Normal [facility] Prolactinon 09-22-2023 Prolactin 14.07 ng/mL Normal 3.34-26.72 [facility] Comment on above: Performed By: #### 2 759517, [id number], [id number], [id number], [id number] #### [facility] [address] [place] [address] TSHon 09-22-2023 TSH Qn 1.94 m[IU]/L Normal 0.34-5.60 [facility] Comment on above: Performed By: #### 2 374788, [id number], [id number], [id number], [id number] #### [facility] [address] [place] [address] Progesteroneon 08-27-2023 Progesterone [Mass/Vol] 5.4 ng/mL Normal U [facility] Comment on above: Result Comment: Ref Values Male <0.3- 1.2 Follicular Phase <0.3- 1.4 Luteal Phase 3.3-25.6 Mid-Luteal Phase 4.4-28.0 Postmenopausal <0.3- 0.7 Females: 1st Trimester 11.2- 90.0 2nd Trimester 25.6- 89.4 3RD Trimester 48.4-422.5 Patients receiving DHEA-S supplements may show false elevation of progesterone for results near 1.0 ng/mL. Contact laboratory at [phone] if alternative testing is needed. Performed By: #### 2 839-9 #### SYLVIA Alves ([id number]) [facility] ([facility]) [id number] [place] [address] Bacteria identifiedon 2022 Bacteria identified Cx Nom (U) Test: Urine Culture Specimen Source: Clean Catch/Voided Specimen Type: Urine Specimen Date: 07/13/2023 4:11 PM Result Date: 07/16/2023 11:09 AM Result Status: Final result Abnormal: No Resulting Lab: [facility] [address] [place] [address] CULTURE No significant growth Normal [facility] Comment on above: Performed By: #### 6 30-4 #### SYLVIA Alves ([id number]) [facility] ([facility]) [address] [place], [place] [id number] Bacteria identifiedon 2022 Bacteria identified Cx Nom (U) Test: Urine Culture Specimen Source: Clean Catch/Voided Specimen Type: Urine Specimen Date: 06/19/2023 5:42 PM Result Date: 06/21/2023 8:49 AM Result Status: Final result Abnormal: No Resulting Lab: [facility] [address] [place] [address] CULTURE Normal genitourinary ivy Normal [facility] Comment on above: Performed By: #### 6 30-4 #### SYLVIA Alves ([id number]) [facility] ([facility]) [address] [place] [address] HCG ( test) IA.rapi d Ql (U)on 06-19-2023 HCG ( test) Ql (U) Negative Normal NEGATIVE [facility] Comment on above: Performed By: #### 8 0384-1 #### KELBY ROSS ([id number]) [facility] ([facility]) [address] [place] [address] HCG ( test) IA.rapi d Ql (U)Ordered By: Rob Burnham on 06-19-2023 HCG ( test) Ql (U) Negative NEGATIVE [facility] Interpretation and review of laboratory results Normal [facility] No Panel Informationon 06-19 Interpretation and review of laboratory results Abnormal [facility] Urinalysis complete W Reflex Culture panel (U)on 06-19-2023 Appearance (U) Hazy Normal Clear [facility] Comment on above: Performed By: #### 5 8077-9 #### KELBY ROSS ([id number]) [facility] ([facility]) [address] [place] [address] Bilirubin (U) [Mass/Vol] Negative Normal NEGATIVE [facility] Comment on above: Performed By: #### 5 8077-9 #### KELBY ROSS ([id number]) [facility] ([facility]) [address] [place] [address] Color (U) Yellow Normal Straw, Yellow [facility] Comment on above: Performed By: #### 5 8077-9 #### KELBY ROSS ([id number]) [facility] ([facility]) [address] [place], [place] [address] Glucose Auto test strip (U) [Mass/Vol] Negative Normal NEGATIVE [facility] Comment on above: Performed By: #### 5 8077-9 #### KELBY ROSS ([id number]) [facility] ([facility]) [address] [place], [place] [address] Ketones (U) [Mass/Vol] 5 (TRACE) Abnormal NEGATIVE Un [facility] Comment on above: Performed By: #### 5 8077-9 #### KELBY ROSS ([id number]) [facility] ([facility]) [address] [place] [address] Leukocyte esterase Auto test strip Ql (U) TRACE Abnormal NEGATIVE [facility] Comment on above: Performed By: #### 5 8077-9 #### KELBY ROSS ([id number]) [facility] ([facility]) [address] [place] [address] Nitrite Auto test strip Ql (U) Negative Normal NEGATIVE [facility] Comment on above: Performed By: #### 5 8077-9 #### KELBY ROSS ([id number]) [facility] ([facility]) [address] [place] [address] pH (U) 5.0 [pH] Normal 5.0, 5.5, 6.0, 6.5, 7.0, 7.5, 8.0 [facility] Comment on above: Performed By: #### 5 8077-9 #### KELBY ROSS ([id number]) [facility] ([facility]) [address] [place] [address] Protein (U) [Mass/Vol] 100 (2+) Normal NEGATIVE [facility] Comment on above: Performed By: #### 5 8077-9 #### KELBY ROSS ([id number]) [facility] ([facility]) [address] [place] [address] RBC (U) [#/Vol] Negative Normal NEGATIVE [facility] Comment on above: Performed By: #### 5 8077-9 #### KELBY ROSS ([id number]) [facility] ([facility]) [address] [place] [address] Specific gravity (U) [Rel density] 1.031 Normal 1.005-1.035 [facility] Comment on above: Performed By: #### 5 8077-9 #### KELBY ROSS ([id number]) [facility] ([facility]) [address] [place] [address] Urobilinogen (U) [Mass/Vol] 2.0 mg/dL Normal <2.0 [facility] Comment on above: Result Comment: Due [...] By: #### 5 8077-9 #### KELBY ROSS ([id number]) [facility] ([facility]) [address] [place], [place] [phone] Appearance (U) Hazy Abnormal Clear [facility] Bilirubin (U) [Mass/Vol] Negative NEGATIVE [facility] Color (U) Yellow Straw, Yellow [facility] Glucose Auto test strip (U) [Mass/Vol] Negative NEGATIVE mg/dL [facility] Ketones (U) [Mass/Vol] 5 (TRACE) Abnormal NEGAT MADDIE mg/dL [facility] Leukocyte esterase Auto test strip Ql (U) TRACE Abnormal NEGATIVE [facility] Nitrite Auto test strip Ql (U) Negative NEGATIVE [facility] pH (U) 5.0 [pH] 5.0, 5.5, 6.0, 6.5, 7.0, 7.5, 8.0 [facility] Protein (U) [Mass/Vol] 100 (2+) Abnormal NEGAT MADDIE mg/dL [facility] RBC (U) [#/Vol] Negative NEGATIVE [facility] Specific gravity (U) [Rel density] 1.031 1.005 - 1.035 [facility] Urobilinogen (U) [Mass/Vol] 2.0 mg/dL Abnormal NINF - 2.0 mg/dL [facility] Comment on above: Due to a manufacturi [...] 10-25 (FEW) Normal Reference range not established. [facility] Comment on above: Performed By: #### 5 3315-8 #### KELBY ROSS ([id number]) [facility] ([facility]) [address] [place] [address] Mucus Auto (Urine sed) [#/Area] 2+ /LPF Normal Reference range not established. [facility] Comment on above: Performed By: #### 5 3315-8 #### KELBY ROSS ([id number]) [facility] ([facility]) [address] [place], [place] [phone] RBC Auto (Urine sed) [#/Area] 3-5 Normal NONE, 1-2, 3-5 [facility] Comment on above: Performed By: #### 5 3315-8 #### KELBY ROSS ([id number]) [facility] ([facility]) [address] [place] [address] WBC Auto (Urine sed) [#/Area] 11-20 Abnormal 1-5, NONE [facility] Comment on above: Performed By: #### 5 3315-8 #### KELBY ROSS ([id number]) [facility] ([facility]) [address] [place] [address] Epithelial cells.squamous Auto (Urine sed) [#/Area] 10-25 (FEW) Reference range not established. /HPF [facility] Mucus Auto (Urine sed) [#/Area] 2+ Reference range not established. /LPF [facility] RBC Auto (Urine sed) [#/Area] 3-5 NONE, 1-2, 3-5 /HPF [facility] WBC Auto (Urine sed) [#/Area] 11-20 Abnormal 1-5, NONE /HPF [facility] Bacteria identifiedon 2022 Bacteria identified Cx Nom (U) Test: Urine Culture Specimen Source: Clean Catch/Voided Specimen Type: Urine Specimen Date: 05/18/2023 10:46 AM Result Date: 05/20/2023 8:13 AM Result Status: Final result Abnormal: No Resulting Lab: [facility] [address] [place] [address] CULTURE No significant growth Normal [facility] Comment on above: Performed By: #### 6 30-4 #### SYLVIA Alves ([id number]) [facility] ([facility]) [address] [place] [address] POCT UA Automated manually r esultedon 05-18-2023 Appearance (U) Hazy Abnormal Clear [facility] Work Phone: Glucose Test strip (U) [Mass/Vol] Negative NEGATIVE mg/dl [facility] Work Phone: Hemoglobin Ql (U) MODERATE (2+) Abnormal NEGATIVE [facility] Work Phone: Interpretation and review of laboratory results Abnormal [facility] Work Phone: Leukocyte esterase Test strip Ql (U) Negative NEGATIVE [facility] Work Phone: [phone] Nitrite Ql (U) Negative NEGATIVE [facility] Work Phone: [phone] pH (U) 7.0 [pH] No Reference Range Established [facility] Work Phone: [phone] POC Bilirubin, Urine Negative NEGATIVE [facility] Work Phone: [phone] POC Color, Urine Yellow Straw, Yellow, Light-Yellow [facility] Work Phone: [phone] POC Ketones, Urine 15 (1+) Abnormal NEGATIVE mg/dl [facility] Work Phone: [phone] POC Protein, Urine 30 (1+) NEGATIVE, 30 (1+) mg/dl [facility] Work Phone: [phone] POC Specific [place], Urine 1.025 1.005 - 1.035 [facility] Work Phone: [phone] POC Urobilinogen, Urine 0.2 0.2, 1.0 EU/DL [facility] Work Phone: [phone] [facility] Work Phone: CBC AND DIFFERENTIALon 04-14 % AUTOMATED IMMATURE GRAN 0.2 % Normal 0.0 - 0.9 [facility] Comment on above: Result Comment: Tammie ture Granulocyte Count (IG) includes promyelocytes, myelocytes and metamyelocytes but does not include bands. Percent differential counts (%) should be interpreted in the context of the absolute cell counts (cells/L). Performed By: #### C BCDF #### [address] [address] Basophils (Bld) [#/Vol] 0.02 10*3/uL Normal 0.00 - 0.1 0 [facility] Comment on above: Performed By: #### C BCDF #### [address] [address] Basophils/100 WBC (Bld) 0.5 % Normal 0.0 - 2.0 [facility] Comment on above: Performed By: #### C BCDF #### [address] [address] Eosinophils (Bld) [#/Vol] 0.09 10*3/uL Normal 0.00 - 0.70 [facility] [place] [facility] Comment on above: Performed By: #### C BCDF #### [address] [address] Eosinophils/100 WBC (Bld) 2.2 % Normal 0.0 - 6.0 [facility] [place] [facility] Comment on above: Performed By: #### C BCDF #### [address] [address] Erythrocyte distribution width (RBC) [Ratio] 11.6 % Normal 11.5 - 14.5 [facility] Comment on above: Performed By: #### C BCDF #### [address] [address] Hematocrit (Bld) [Volume fraction] 43.6 % Normal 36.0 - 46.0 [facility] [place] [facility] Comment on above: Performed By: #### C BCDF #### [address] [address] Hemoglobin (Bld) [Mass/Vol] 14.3 g/dL Normal 12.0 - 16.0 [facility] Comment on above: Performed By: #### C BCDF #### [address] [address] Lymphocytes (Bld) [#/Vol] 1.48 10*3/uL Normal 1.20 - 4.80 [facility] [place] [facility] Comment on above: Performed By: #### C BCDF #### [address] [address] Lymphocytes/100 WBC (Bld) 36.5 % Normal 13.0 - 44.0 [facility] [place] [facility] Comment on above: Performed By: #### C BCDF #### [address] [address] MCHC (RBC) [Mass/Vol] 32.8 g/dL Normal 32.0 - 36.0 [facility] [place] Comment on above: Performed By: #### C BCDF #### [address] [address] MCV (RBC) [Entitic vol] 90 fL Normal 80 - 100 [facility] Comment on above: Performed By: #### C BCDF #### [address] [address] Monocytes (Bld) [#/Vol] 0.30 10*3/uL Normal 0.10 - 1.0 0 [facility] [place] [facility] Comment on above: Performed By: #### C BCDF #### [address] [address] Monocytes/100 WBC (Bld) 7.4 % Normal 2.0 - 10.0 [facility] Comment on above: Performed By: #### C BCDF #### [address] [address] Neutrophils (Bld) [#/Vol] 2.16 10*3/uL Normal 1.20 - 7.70 [facility] [place] [facility] Comment on above: Result Comment: Perc ent differential counts (%) should be interpreted in the context of the absolute cell counts (cells/L). Performed By: #### C BCDF #### [address] [address] Neutrophils/100 WBC (Bld) 53.2 % Normal 40.0 - 80.0 [facility] [place] Comment on above: Performed By: #### C BCDF #### [address] [address] Platelets (Bld) [#/Vol] 267 10*3/uL Normal 150 - 450 [facility] [place] Comment on above: Performed By: #### C BCDF #### [address] [address] RBC 4.84 x10E12/L Normal 4.00 - 5.20 [facility] [place] Comment on above: Performed By: #### C BCDF #### [address] [address] WBC (Bld) [#/Vol] 4.1 10*3/uL Low 4.4 - 11.3 [facility] [place] Comment on above: Performed By: #### C BCDF #### [address] [address] COMPREHENSIVE PANELon 2022 Albumin [Mass/Vol] 4.4 g/dL Normal 3.4 - 5.0 [facility] [place] Comment on above: Performed By: #### C MP #### [address] [address] ALP [Catalytic activity/Vol] 42 U/L Normal 33 - 110 [facility] [place] Comment on above: Performed By: #### C MP #### [address] [address] ALT [Catalytic activity/Vol] 20 U/L Normal 7 - 45 [facility] [place] Comment on above: Result Comment: Glory ents treated with Sulfasalazine may generate falsely decreased results for ALT. Performed By: #### C MP #### [address] [address] Anion gap [Moles/Vol] 13 mmol/L Normal 10 - 20 [facility] [place] Comment on above: Performed By: #### C MP #### [address] [address] AST [Catalytic activity/Vol] 25 U/L Normal 9 - 39 [facility] [place] Comment on above: Performed By: #### C MP #### [address] [address] Bilirubin [Mass/Vol] 0.6 mg/dL Normal 0.0 - 1.2 [facility] [place] [facility] Comment on above: Performed By: #### C MP #### [address] [address] Calcium [Mass/Vol] 9.5 mg/dL Normal 8.6 - 10.3 [facility] [place] Comment on above: Performed By: #### C MP #### [address] [address] Chloride [Moles/Vol] 106 mmol/L Normal 98 - 107 [facility] [place] Comment on above: Performed By: #### C MP #### [address] [address] Creatinine [Mass/Vol] 0.82 mg/dL Normal 0.50 - 1.05 [facility] [place] Comment on above: Performed By: #### C MP #### [address] [address] eGFR FEMALE >90 Normal >90 [facility] [place] Comment on above: Result Comment: CALC ULATIONS OF ESTIMATED GFR ARE PERFORMED USING THE 2020 CKD-EPI STUDY REFIT EQUATION WITHOUT THE RACE VARIABLE FOR THE IDMS-TRACEABLE CREATININE METHODS. https://jasn.asnjournals.org/content/early//ASN.2020 787258 Performed By: #### C MP #### [address] [address] Glucose [Mass/Vol] 80 mg/dL Normal 74 - 99 [facility] [place] Comment on above: Performed By: #### C MP #### [address] [address] HCO3 (Bld) [Moles/Vol] 25 mmol/L Normal 21 - 32 [facility] [place] Comment on above: Performed By: #### C MP #### [address] [address] Potassium [Moles/Vol] 3.8 mmol/L Normal 3.5 - 5.3 [facility] [place] Comment on above: Performed By: #### C MP #### [address] [address] Protein [Mass/Vol] 7.0 g/dL Normal 6.4 - 8.2 [facility] [place] Comment on above: Performed By: #### C MP #### [address] [address] Sodium [Moles/Vol] 140 mmol/L Normal 136 - 145 [facility] [place] Comment on above: Performed By: #### C MP #### [address] [address] Urea nitrogen [Mass/Vol] 5 mg/dL Low 6 - 23 [facility] [place] Comment on above: Performed By: #### C MP #### [address] [address] HEMOGLOBIN A1Con 04-14-2023 Glucose [Mass/Vol] 88 mg/dL Normal [facility] [place] Comment on above: Performed By: #### H BA1E #### [address] [address] HbA1c (Bld) [Mass fraction] 4.7 % Normal [facility] [place] Comment on above: Result Comment: Diag nosis of Diabetes-Adults Non-Diabetic: < or = 5.6% Increased risk for developing diabetes: 5.7-6.4% Diagnostic of diabetes: > or = 6.5% . Monitoring of Diabetes Age (y) Therapeutic Goal (%) Adults: >18 <7.0 Pediatrics: 13-18 <7.5 7-12 <8.0 0- 6 7.5-8.5 [place] [employer]. Diabetes Care 33(S1), Jul 2009. Performed By: #### H BA1E #### [address] [address] LIPID PANEL (CORONARY RISK 2 )on 04-14-2023 Cholesterol [Mass/Vol] 159 mg/dL Normal 0 - 199 [facility] [place] Comment on above: Result Comment: . AGE [...] dosing. Performed By: #### L IPID #### [address] [address] Cholesterol in HDL [Mass/Vol] 56.0 mg/dL Normal [facility] [place] Comment on above: Result Comment: . AGE VERY LOW LOW NORMAL HIGH 0-19 Y < 35 < 40 40-45 ---- 20-24 Y ---- < 40 >45 ---- >24 Y ---- < 40 40-60 >60 . Performed By: #### L IPID #### [address] [address] Cholesterol in LDL [Mass/Vol] 87 mg/dL Normal 0 - 119 [facility] [place] Comment on above: Result Comment: . NEAR BORD AGE DESIRABLE OPTIMAL HIGH HIGH VERY HIGH 0-19 Y 0 - 109 --- 110-129 >/= 130 ---- 20-24 Y 0 - 119 --- 120-159 >/= 160 ---- >24 Y 0 - 99 100-129 130-159 160-189 >/=190 . Performed By: #### L IPID #### [address] [address] Cholesterol in VLDL [Mass/Vol] 16 mg/dL Normal 0 - 40 [facility] [place] Comment on above: Performed By: #### L IPID #### [address] [address] Cholesterol.total/Doris sterol in HDL [Mass ratio] 2.8 {ratio} Normal [facility] [place] Comment on above: Result Comment: REF VALUES DESIRABLE < 3.4 HIGH RISK > 5.0 Performed By: #### L IPID #### [address] [address] NON-HDL CHOLESTEROL 103 mg/dL Normal 0 - 149 [facility] [place] Comment on above: Result Comment: AGE DESIRABLE BORDERLINE HIGH HIGH VERY HIGH 0-19 Y 0 - 119 120 - 144 >/= 145 >/= 160 20-24 Y 0 - 149 150 - 189 >/= 190 ---- >24 Y 30 MG/DL ABOVE LDL CHOLESTEROL GOAL . Performed By: #### L IPID #### [address] [address] Triglyceride [Mass/Vol] 79 mg/dL Normal 0 - 149 [facility] Comment on above: Result Comment: [...] dosing. Performed By: #### L IPID #### [address] [address] TSH WITH REFLEX TO FREE T4 I F ABNORMALon 04-14-2023 TSH Qn 2.73 m[IU]/L Normal 0.44 - 3.98 [facility] [place] Comment on above: Result Comment: TSH testing is performed using different testing methodology at [facility] than at other [facility]. Direct result comparisons should only be made within the same method. Performed By: #### T HYDS #### [address] [address] CBC AND DIFFERENTIALon 04-13 % AUTOMATED IMMATURE GRAN 0.2 % Normal 0.0 - 0.9 [facility] Comment on above: Result Comment: Tammie ture Granulocyte Count (IG) includes promyelocytes, myelocytes and metamyelocytes but does not include bands. Percent differential counts (%) should be interpreted in the context of the absolute cell counts (cells/L). Performed By: #### C BCDF ####[address] [address] Basophils (Bld) [#/Vol] 0.01 10*3/uL Normal 0.00 - 0.1 0 [facility] Comment on above: Performed By: #### C BCDF ####[address] [address] Basophils/100 WBC (Bld) 0.2 % Normal 0.0 - 2.0 [facility] Comment on above: Performed By: #### C BCDF ####[address] [address] Eosinophils (Bld) [#/Vol] 0.06 10*3/uL Normal 0.00 - 0.70 [facility] Comment on above: Performed By: #### C BCDF ####[address] [address] Eosinophils/100 WBC (Bld) 1.2 % Normal 0.0 - 6.0 [facility] Comment on above: Performed By: #### C BCDF ####[address] [address] Erythrocyte distribution width (RBC) [Ratio] 11.4 % Low 11.5 - 14.5 [facility] [facility] Comment on above: Performed By: #### C BCDF ####[address] [address] Hematocrit (Bld) [Volume fraction] 39.3 % Normal 36.0 - 46.0 [facility] Comment on above: Performed By: #### C BCDF ####[address] [address] Hemoglobin (Bld) [Mass/Vol] 13.4 g/dL Normal 12.0 - 16.0 [facility] Comment on above: Performed By: #### C BCDF ####[address] [address] Lymphocytes (Bld) [#/Vol] 1.39 10*3/uL Normal 1.20 - 4.80 [facility] Comment on above: Performed By: #### C BCDF ####[address] [address] Lymphocytes/100 WBC (Bld) 27.9 % Normal 13.0 - 44.0 [facility] Comment on above: Performed By: #### C BCDF ####[address] [address] MCHC (RBC) [Mass/Vol] 34.1 g/dL Normal 32.0 - 36.0 [facility] Comment on above: Performed By: #### C BCDF ####[address] [address] MCV (RBC) [Entitic vol] 88 fL Normal 80 - 100 [facility] Comment on above: Performed By: #### C BCDF ####[facility] [id number] [place] [address] Monocytes (Bld) [#/Vol] 0.49 10*3/uL Normal 0.10 - 1.0 0 [facility] Comment on above: Performed By: #### C BCDF ####[address] [address] Monocytes/100 WBC (Bld) 9.8 % Normal 2.0 - 10.0 [facility] Comment on above: Performed By: #### C BCDF ####[address] [address] Neutrophils (Bld) [#/Vol] 3.03 10*3/uL Normal 1.20 - 7.70 [facility] Comment on above: Result Comment: Perc ent differential counts (%) should be interpreted in the context of the absolute cell counts (cells/L). Performed By: #### C BCDF ####[address] [address] Neutrophils/100 WBC (Bld) 60.7 % Normal 40.0 - 80.0 [facility] Comment on above: Performed By: #### C BCDF ####[address] [address] Platelets (Bld) [#/Vol] 275 10*3/uL Normal 150 - 450 [facility] Comment on above: Performed By: #### C BCDF ####[address] [address] RBC 4.45 x10E12/L Normal 4.00 - 5.20 [facility] Comment on above: Performed By: #### C BCDF ####[address] [address] WBC (Bld) [#/Vol] 5.0 10*3/uL Normal 4.4 - 11.3 [facility] Comment on above: Performed By: #### C BCDF ####[address] [address] COMPREHENSIVE PANELon 2022 Albumin [Mass/Vol] 4.2 g/dL Normal 3.4 - 5.0 [facility] Comment on above: Performed By: #### C MP ####[address] [address] ALP [Catalytic activity/Vol] 40 U/L Normal 33 - 110 [facility] Comment on above: Performed By: #### C MP ####[address] [address] ALT [Catalytic activity/Vol] 12 U/L Normal 7 - 45 [facility] Comment on above: Result Comment: Glory ents treated with Sulfasalazine may generate falsely decreased results for ALT. Performed By: #### C MP ####[place] [id number] Anion gap [Moles/Vol] 11 mmol/L Normal 10 - 20 [facility] Comment on above: Performed By: #### C MP ####[place] [id number] AST [Catalytic activity/Vol] 17 U/L Normal 9 - 39 [facility] Comment on above: Performed By: #### C MP ####[address] [address] Bilirubin [Mass/Vol] 0.5 mg/dL Normal 0.0 - 1.2 [facility] Comment on above: Performed By: #### C MP ####[address] [address] Calcium [Mass/Vol] 8.9 mg/dL Normal 8.6 - 10.3 [facility] Comment on above: Performed By: #### C MP ####[address] [address] Chloride [Moles/Vol] 106 mmol/L Normal 98 - 107 [facility] Comment on above: Performed By: #### C MP ####[address] [address] Creatinine [Mass/Vol] 0.85 mg/dL Normal 0.50 - 1.05 [facility] Comment on above: Performed By: #### C MP ####[address] [address] eGFR FEMALE >90 Normal >90 [facility] Comment on above: Result Comment: CALC ULATIONS OF ESTIMATED GFR ARE PERFORMED USING THE 2020 CKD-EPI STUDY REFIT EQUATION WITHOUT THE RACE VARIABLE FOR THE IDMS-TRACEABLE CREATININE METHODS. https://jasn.asnjournals.org/content/early/ASN.2020 977490 Performed By: #### C MP ####[address] [address] Glucose [Mass/Vol] 87 mg/dL Normal 74 - 99 [facility] Comment on above: Performed By: #### C MP ####[address] [address] HCO3 (Bld) [Moles/Vol] 26 mmol/L Normal 21 - 32 [facility] Comment on above: Performed By: #### C MP ####[address] [address] Potassium [Moles/Vol] 3.4 mmol/L Low 3.5 - 5.3 [facility] Comment on above: Performed By: #### C MP ####[address] [address] Protein [Mass/Vol] 6.8 g/dL Normal 6.4 - 8.2 [facility] Comment on above: Performed By: #### C MP ####[address] [address] Sodium [Moles/Vol] 140 mmol/L Normal 136 - 145 [facility] Comment on above: Performed By: #### C MP ####[address] [address] Urea nitrogen [Mass/Vol] 6 mg/dL Normal 6 - 23 [facility] Comment on above: Performed By: #### C MP ####[address] [address] HCG,URINEon 04-13-2023 Beta HCG ( test) Ql (U) Negative Normal Negative [facility] Comment on above: Performed By: #### H CGU ####[address] [place] [address] Provider Note - ED v3on 03-24 Provider [...] a day SIGNIFICANT EVENTS: Past Medical History Description:[place] teeth extraction CRITICAL CARE RESULTS: Recent Lab [...] Reference Range: STRAW,YELLOW Appearance, Urine CLEAR Specific [place], Urine 1.010 pH, Urine 7.0 Protein, Urine NEGATIVE Glucose, Urine NEGATIVE Blood, Urine NEGATIVE Ketones, Urine NEGATIVE Bilirubin, Urine NEGATIVE Urobilinogen, Urine <2.0 Nitrite, Urine Negative Leukocyte Esterase, Urine NEGATIVE VITAL SIGNS: T PRBP SpO2O2(LPM) %FiO2 Method 13-Apr-2023 13:54:[id number] 94 13-Apr-2023 13:13:[id number]/74 99 room air, no respiratory support 13-Apr-2023 12:55:[id number]/74 99 room air, no respiratory support [facility] MDM/ED COURSE: Medical Decision Making: Patient appears well and nontoxic. Vital signs within normal limits. Lab work otherwise unremarkable. Urine without acute infection. Patient given 1 L normal saline. Advised on [id number] Motrin and Tylenol. Asked to follow-up with primary care. Stable at time of discharge. Differential Diagnoses Considered: Musculoskeletal pain, UTI, kidney stone Escalation of Care: (more content not included)... Normal [facility] Triage - EDon 04-13-2023 Triage [...] 13-Apr-2023 13:15 by Imelda Ramirez (RN) Normal [facility] URINALYSISon 04-13-2023 Appearance (U) CLEAR Normal CLEAR [facility] Comment on above: Performed By: #### U A ####[place] [address] Bilirubin Ql (U) Negative Normal NEGATIVE [facility] Comment on above: Performed By: #### U A ####[place] [address] Color (U) Yellow Normal STRAW,YELLOW [facility] Comment on above: Performed By: #### U A ####[place] [address] Glucose Ql (U) Negative Normal NEGATIVE [facility] Comment on above: Performed By: #### U A ####[place] [address] Hemoglobin Ql (U) Negative Normal NEGATIVE [facility] Comment on above: Performed By: #### U A ####[place] [address] Ketones Ql (U) Negative Normal NEGATIVE [facility] Comment on above: Performed By: #### U A ####[place] [address] Leukocyte esterase Test strip Ql (U) Negative Normal NEGATIVE [facility] Comment on above: Performed By: #### U A ####[place] [address] Nitrite Ql (U) Negative Normal NEGATIVE [facility] Comment on above: Performed By: #### U A ####[place] [address] pH (U) 7.0 [pH] Normal 5.0 - 8.0 [facility] Comment on above: Performed By: #### U A ####[place] [address] Protein Ql (U) Negative Normal NEGATIVE [facility] Comment on above: Performed By: #### U A ####[place] [address] Specific gravity (U) [Rel density] 1.010 Normal 1.005 - 1.035 [facility] Comment on above: Performed By: #### U A ####[address] [address] Urobilinogen (U) [Mass/Vol] mg/dL Normal 0.0 - 1.9 [facility] Comment on above: Performed By: #### U A ####[address] [address] BASIC METABOLIC PANELon 03-24 Creatinine [Mass/Vol] 1.33 mg/dL High 0.50 - 1.05 [facility] Comment on above: Result Comment: Conf irmed by repeat analysis Performed By: #### B MP ####[address] [address] GFR/1.73 sq M.predicted among non-blacks MDRD (S/P/Bld) [Vol rate/Area] 58 mL/min/{1.73_m2} Abnormal >90 [facility] Comment on above: Result Comment: CALC ULATIONS OF ESTIMATED GFR ARE PERFORMED USING THE 2020 CKD-EPI STUDY REFIT EQUATION WITHOUT THE RACE VARIABLE FOR THE IDMS-TRACEABLE CREATININE METHODS. https://jasn.asnjournals.org/content/early/ASN.2020 181189 Performed By: #### B MP ####[address] [address] Anion gap [Moles/Vol] 8 mmol/L Low 10 - 20 [facility] Comment on above: Performed By: #### B MP ####[address] [address] Calcium [Mass/Vol] 8.0 mg/dL Low 8.6 - 10.3 [facility] Comment on above: Performed By: #### B MP ####[address] [address] Chloride [Moles/Vol] 115 mmol/L High 98 - 107 [facility] Comment on above: Performed By: #### B MP ####[address] [address] Glucose [Mass/Vol] 90 mg/dL Normal 74 - 99 [facility] Comment on above: Performed By: #### B MP ####[address] [address] HCO3 (Bld) [Moles/Vol] 23 mmol/L Normal 21 - 32 [facility] Comment on above: Performed By: #### B MP ####[address] [address] Potassium [Moles/Vol] 3.9 mmol/L Normal 3.5 - 5.3 [facility] Comment on above: Performed By: #### B MP ####[address] [address] Sodium [Moles/Vol] 142 mmol/L Normal 136 - 145 [facility] Comment on above: Performed By: #### B MP ####[place] [address] Urea nitrogen [Mass/Vol] 10 mg/dL Normal 6 - 23 [facility] Comment on above: Performed By: #### B MP ####[address] [address] CBCon 04-11-2023 Erythrocyte distribution width (RBC) [Ratio] 11.8 % Normal 11.5 - 14.5 [facility] Comment on above: Performed By: #### U ARFX #### [address] [address] Hematocrit (Bld) [Volume fraction] 34.9 % Low 36.0 - 46.0 [facility] Comment on above: Performed By: #### U ARFX #### [address] [address] Hemoglobin (Bld) [Mass/Vol] 11.5 g/dL Low 12.0 - 16.0 [facility] Comment on above: Performed By: #### U ARFX #### [address] [address] MCHC (RBC) [Mass/Vol] 33.0 g/dL Normal 32.0 - 36.0 [facility] Comment on above: Performed By: #### U ARFX #### [address] [address] MCV (RBC) [Entitic vol] 90 fL Normal 80 - 100 [facility] Comment on above: Performed By: #### U ARFX #### [address] [address] Platelets (Bld) [#/Vol] 213 10*3/uL Normal 150 - 450 [facility] Comment on above: Performed By: #### U ARFX #### [address] [address] RBC 3.86 x10E12/L Low 4.00 - 5.20 [facility] Comment on above: Performed By: #### U ARFX #### [address] [address] WBC (Bld) [#/Vol] 4.4 10*3/uL Normal 4.4 - 11.3 [facility] Comment on above: Performed By: #### U ARFX #### [address] [address] Discharge [id number] Discharge Profile2 Discharge Orders: Anticipated Discharge Date: Anticipated Discharge [id number] Code Status: Code Status at Discharge: Full [...] 11-Apr-2023 09:34:24 Appointments: Follow-Up Appointment 01: Physician/Dept/ServicePr [facility] care provider Jordyn Thakur Reason for ReferralPyelonephritis, acute kidney injury Call to Schedule in1 week LocationS [place] Phone [phone] Annamarie will call and make her own appointment. Electronic Signatures: Kusum Joaquin (DANIEL) (Signed 11-Apr-2023 10:50) Authored: Discharge Orders, Appointments Bautista Villanueva) (Signed 11-Apr-2023 09:34) Authored: Discharge Orders, Hospital Course (Home Care/Gold Form), Provider FINAL REVIEW of Orders, Appointments, Gold Form - Clinical Account Executive Summary Last Updated: 11-Apr-2023 10:50 by Kusum Joaquin (DANIEL) [facility] Order Reconciliationon 04-11 Order Reconciliation [...] 1 cap(s) orally once a day Normal [facility] BASIC METABOLIC PANELon 03-23 Anion gap [Moles/Vol] 11 mmol/L Normal 10 - 20 [facility] Comment on above: Performed By: #### B MP ####[address] [address] Calcium [Mass/Vol] 8.4 mg/dL Low 8.6 - 10.3 [facility] Comment on above: Performed By: #### B MP ####[address] [place] [address] Chloride [Moles/Vol] 109 mmol/L High 98 - 107 [facility] Comment on above: Performed By: #### B MP ####[address] [address] Creatinine [Mass/Vol] 2.30 mg/dL High 0.50 - 1.05 [facility] Comment on above: Performed By: #### B MP ####[address] [address] GFR/1.73 sq M.predicted among non-blacks MDRD (S/P/Bld) [Vol rate/Area] 30 mL/min/{1.73_m2} Abnormal >90 [facility] Comment on above: Result Comment: CALC ULATIONS OF ESTIMATED GFR ARE PERFORMED USING THE 2020 CKD-EPI STUDY REFIT EQUATION WITHOUT THE RACE VARIABLE FOR THE IDMS-TRACEABLE CREATININE METHODS. https://jasn.asnjournals.org/content/early//ASN.2020 955149 Performed By: #### B MP ####[address] [address] Glucose [Mass/Vol] 84 mg/dL Normal 74 - 99 [facility] Comment on above: Performed By: #### B MP ####[address] [address] HCO3 (Bld) [Moles/Vol] 23 mmol/L Normal 21 - 32 [facility] Comment on above: Performed By: #### B MP ####[address] [address] Potassium [Moles/Vol] 3.8 mmol/L Normal 3.5 - 5.3 [facility] Comment on above: Performed By: #### B MP ####[address] [address] Sodium [Moles/Vol] 139 mmol/L Normal 136 - 145 [facility] Comment on above: Performed By: #### B MP ####[address] [address] Urea nitrogen [Mass/Vol] 20 mg/dL Normal 6 - 23 [facility] Comment on above: Performed By: #### B MP ####[address] [place] [address] CBCon 04-10-2023 Erythrocyte distribution width (RBC) [Ratio] 11.9 % Normal 11.5 - 14.5 [facility] Comment on above: Performed By: #### U ARFX #### [address] [address] Hematocrit (Bld) [Volume fraction] 37.4 % Normal 36.0 - 46.0 [facility] Comment on above: Performed By: #### U ARFX #### [address] [address] Hemoglobin (Bld) [Mass/Vol] 12.3 g/dL Normal 12.0 - 16.0 [facility] Comment on above: Performed By: #### U ARFX #### [address] [address] MCHC (RBC) [Mass/Vol] 32.9 g/dL Normal 32.0 - 36.0 [facility] Comment on above: Performed By: #### U ARFX #### [address] [address] MCV (RBC) [Entitic vol] 90 fL Normal 80 - 100 [facility] Comment on above: Performed By: #### U ARFX #### [address] [address] Platelets (Bld) [#/Vol] 239 10*3/uL Normal 150 - 450 [facility] Comment on above: Performed By: #### U ARFX #### [address] [address] RBC 4.16 x10E12/L Normal 4.00 - 5.20 [facility] Comment on above: Performed By: #### U ARFX #### [address] [address] WBC (Bld) [#/Vol] 8.0 10*3/uL Normal 4.4 - 11.3 [facility] Comment on above: Performed By: #### U ARFX #### [address] [address] Daily Progress Note-Medicine on 04-10-2023 Daily Progress Note-Medicine Service: Medicine Subjective Data: LUZ HINOJOSA is a 22 year old Female who is Hospital Day # 2. Patient feeling better no longer nauseated or vomiting. Was able to tolerate diet. Still having some left flank pain. Objective Data: Objective Information: T PRBPMAPSpO2 [id number]% Date/Time04/10 8: 8: 8: 8: 8: 8:04 [...] if there are errors there due to plate printer. Bautista Villanueva Hospitalist Electronic Signatures: Bautista Villanueva) (Signed 10-Apr-2023 11:04) Authored: Service, Subjective Data, Objective Data, Assessment and Plan, Note Completion Last Updated: 10-Apr-2023 11:04 by Bautista Villanueva) Normal [facility] MAGNESIUMon 04-10-2023 Magnesium [Mass/Vol] 1.72 mg/dL Normal 1.60 - 2.40 [facility] Comment on above: Performed By: #### M G ####[address] [place] [address] Admission Risk Screen - Adul ton 04-09-2023 Admission Risk Screen - Adult Allergies: Allergies: clonidine: Hives/Urticaria Patient Verification: New W ID Band Applied in my Departmentno Type of ID Patient is WearingW wristband, but not applied here Patient Transferred from Other Facility ([facility], [facility],etc)no Patient Identity Verified Bypatient ID Band [...] AlertFor Ebola-like Symptoms: Isolate Patient and Notify Provider/Client Liaison For Contact: Notify Provider/Client Liaison Advance Directive: Advance Directive/DNRno (2) Advance Directive [...] material; verbal instruction Cultural Considerationsnone Developmental Considerationsnone Judaism Considerationsnone Learning Assessment (Other Learner): Other learner availableno Depression Screen: During the past month, have you often been bothered by feeling down, depressed or hopelessno During the past month, have you often had little interest or pleasure in doing thingsno Have you had any thoughts of harming anyone elseno (1) [place] Suicide: Risk Screen Not Applicable/Able to Answerable to be screened In the Past Month: Have you wished you were or could go to sleep and not wake upno(1) In the Past Month: Have you had any actual thoughts of killing yourself no(1) Lifetime: Have you ever done, started to do, or prepared to do anything to end your lifeno [place] Suicide Risknegative Adult Nutrition Screen: Have you [...] there any (more content not included)... Normal [facility] BASIC METABOLIC PANELon 03-23 Anion gap [Moles/Vol] 14 mmol/L Normal 10 - 20 [facility] Comment on above: Performed By: #### U ARFX #### [address] [address] Calcium [Mass/Vol] 8.1 mg/dL Low 8.6 - 10.3 [facility] Comment on above: Performed By: #### U ARFX #### [address] [address] Chloride [Moles/Vol] 112 mmol/L High 98 - 107 [facility] Comment on above: Performed By: #### U ARFX #### [address] [address] Creatinine [Mass/Vol] 2.16 mg/dL High 0.50 - 1.05 [facility] Comment on above: Performed By: #### U ARFX #### [address] [address] GFR/1.73 sq M.predicted among non-blacks MDRD (S/P/Bld) [Vol rate/Area] 32 mL/min/{1.73_m2} Abnormal >90 [facility] Comment on above: Result Comment: CALC ULATIONS OF ESTIMATED GFR ARE PERFORMED USING THE 2020 CKD-EPI STUDY REFIT EQUATION WITHOUT THE RACE VARIABLE FOR THE IDMS-TRACEABLE CREATININE METHODS. https://jasn.asnjournals.org/content/early/ASN.2020 494115 Performed By: #### U ARFX #### [address] [address] Glucose [Mass/Vol] 74 mg/dL Normal 74 - 99 [facility] Comment on above: Performed By: #### U ARFX #### [address] [address] HCO3 (Bld) [Moles/Vol] 19 mmol/L Low 21 - 32 [facility] Comment on above: Performed By: #### U ARFX #### [address] [address] Potassium [Moles/Vol] 3.9 mmol/L Normal 3.5 - 5.3 [facility] Comment on above: Performed By: #### U ARFX #### [address] [address] Sodium [Moles/Vol] 141 mmol/L Normal 136 - 145 [facility] Comment on above: Performed By: #### U ARFX #### [address] [address] Urea nitrogen [Mass/Vol] 19 mg/dL Normal 6 - 23 [facility] Comment on above: Performed By: #### U ARFX #### [address] [address] Anion gap [Moles/Vol] 14 mmol/L Normal 10 - 20 [facility] Comment on above: Performed By: #### B MP ####[address] [address] Calcium [Mass/Vol] 9.5 mg/dL Normal 8.6 - 10.3 [facility] Comment on above: Performed By: #### B MP ####[address] [address] Chloride [Moles/Vol] 107 mmol/L Normal 98 - 107 [facility] Comment on above: Performed By: #### B MP ####[address] [address] Creatinine [Mass/Vol] 2.20 mg/dL High 0.50 - 1.05 [facility] Comment on above: Performed By: #### B MP ####[address] [address] GFR/1.73 sq M.predicted among non-blacks MDRD (S/P/Bld) [Vol rate/Area] 32 mL/min/{1.73_m2} Abnormal >90 [facility] Comment on above: Result Comment: CALC ULATIONS OF ESTIMATED GFR ARE PERFORMED USING THE 2020 CKD-EPI STUDY REFIT EQUATION WITHOUT THE RACE VARIABLE FOR THE IDMS-TRACEABLE CREATININE METHODS. https://jasn.asnjournals.org/content/early/ASN.2020 297379 Performed By: #### B MP ####[address] [address] Glucose [Mass/Vol] 91 mg/dL Normal 74 - 99 [facility] Comment on above: Performed By: #### B MP ####[address] [address] HCO3 (Bld) [Moles/Vol] 23 mmol/L Normal 21 - 32 [facility] Comment on above: Performed By: #### B MP ####[address] [address] Potassium [Moles/Vol] 3.7 mmol/L Normal 3.5 - 5.3 [facility] Comment on above: Performed By: #### B MP ####[address] [address] Sodium [Moles/Vol] 140 mmol/L Normal 136 - 145 [facility] Comment on above: Performed By: #### B MP ####[address] [place] [address] Urea nitrogen [Mass/Vol] 20 mg/dL Normal - [facility] Comment on above: Performed By: #### B MP ####[address] [address] BLOOD CULTURE, BACTERIALon 0 04-09-2023 BLOOD CULTURE, BACTERIAL PATIENT: LUZ HINOJOSA LOCATION: [facility]#: [id number] : 00 AGE: SEX: F ORDERED BY: ALIE RODRIGUEZ SOURCE: Blood COLLECTED: 04/09/23 14:05 ANTIBIOTICS AT IZ[facility].: RECEIVED : 04/10/23 01:43 SITE: R E S U L T S BLOOD CULTURE, BACTERIAL FINAL 04/14/23 05:42 No Growth at 1 days No Growth at 2 days No Growth at 3 days NO GROWTH at 4 days - FINAL REPORT Normal [facility] Comment on above: Performed By: #### B LD ####[id number] [place] [address] BLOOD CULTURE, BACTERIAL PATIENT: LUZ HINOJOSA LOCATION: [facility]doy [facility]#: [id number] : [birth year] AGE: SEX: F ORDERED BY: ALIE RODRIGUEZ SOURCE: Blood COLLECTED: 04/09/23 14:05 ANTIBIOTICS AT IZABEL.: RECEIVED : 04/10/23 01:45 SITE: ANTECUBITAL ANTECUBITAL R E S U L T S BLOOD CULTURE, BACTERIAL FINAL 04/14/23 05:42 No Growth at 1 days No Growth at 2 days No Growth at 3 days NO GROWTH at 4 days - FINAL REPORT Normal [facility] Comment on above: Performed By: #### B LDC ####[id number] [place] [address] CBC AND DIFFERENTIALon 04-09 % AUTOMATED IMMATURE GRAN 0.2 % Normal 0.0 - 0.9 [facility] Comment on above: Result Comment: Tammie ture Granulocyte Count (IG) includes promyelocytes, myelocytes and metamyelocytes but does not include bands. Percent differential counts (%) should be interpreted in the context of the absolute cell counts (cells/L). Performed By: #### C BCDF #### [address] [address] Basophils (Bld) [#/Vol] 0.02 10*3/uL Normal 0.00 - 0.1 0 [facility] Comment on above: Performed By: #### C BCDF #### [address] [address] Basophils/100 WBC (Bld) 0.2 % Normal 0.0 - 2.0 [facility] Comment on above: Performed By: #### C BCDF #### [address] [address] Eosinophils (Bld) [#/Vol] 0.02 10*3/uL Normal 0.00 - 0.70 [facility] Comment on above: Performed By: #### C BCDF #### [address] [address] Eosinophils/100 WBC (Bld) 0.2 % Normal 0.0 - 6.0 [facility] Comment on above: Performed By: #### C BCDF #### [address] [address] Erythrocyte distribution width (RBC) [Ratio] 11.7 % Normal 11.5 - 14.5 [facility] Comment on above: Performed By: #### C BCDF #### [address] [address] Hematocrit (Bld) [Volume fraction] 42.9 % Normal 36.0 - 46.0 [facility] Comment on above: Performed By: #### C BCDF #### [address] [address] Hemoglobin (Bld) [Mass/Vol] 14.3 g/dL Normal 12.0 - 16.0 [facility] Comment on above: Performed By: #### C BCDF #### [address] [address] Lymphocytes (Bld) [#/Vol] 0.91 10*3/uL Low 1.20 - 4.80 [facility] Comment on above: Performed By: #### C BCDF #### [address] [address] Lymphocytes/100 WBC (Bld) 10.4 % Normal 13.0 - 44.0 [facility] Comment on above: Performed By: #### C BCDF #### [address] [address] MCHC (RBC) [Mass/Vol] 33.3 g/dL Normal 32.0 - 36.0 [facility] Comment on above: Performed By: #### C BCDF #### [address] [address] MCV (RBC) [Entitic vol] 89 fL Normal 80 - 100 [facility] Comment on above: Performed By: #### C BCDF #### [address] [address] Monocytes (Bld) [#/Vol] 1.12 10*3/uL High 0.10 - 1.0 0 [facility] Comment on above: Performed By: #### C BCDF #### [address] [address] Monocytes/100 WBC (Bld) 12.8 % Normal 2.0 - 10.0 [facility] Comment on above: Performed By: #### C BCDF #### [address] [address] Neutrophils (Bld) [#/Vol] 6.64 10*3/uL Normal 1.20 - 7.70 [facility] Comment on above: Result Comment: Perc ent differential counts (%) should be interpreted in the context of the absolute cell counts (cells/L). Performed By: #### C BCDF #### [address] [address] Neutrophils/100 WBC (Bld) 76.2 % Normal 40.0 - 80.0 [facility] Comment on above: Performed By: #### C BCDF #### [id number] [place] [address] Platelets (Bld) [#/Vol] 283 10*3/uL Normal 150 - 450 [facility] Comment on above: Performed By: #### C BCDF #### [address] [address] RBC 4.85 x10E12/L Normal 4.00 - 5.20 [facility] Comment on above: Performed By: #### C BCDF #### [address] [address] WBC (Bld) [#/Vol] 8.7 10*3/uL Normal 4.4 - 11.3 [facility] Comment on above: Performed By: #### C BCDF #### [address] [address] [address] ABDOMEN AND PELVIS W IV C [facility] 04-09-2023 CT ABDOMEN AND PELVIS W IV CONTRAST Patient Name: LUZ HINOJOSA STUDY: CT ABDOMEN AND PELVIS W IV CONTRAST; 04/09/2023 12:57 pm INDICATION: Periumbilical and RLQ abdominal pain . COMPARISON: January 09, 2020 renal ultrasound ACCESSION NUMBER(S): [id number] ORDERING CLINICIAN: ALIE RODRIGUEZ TECHNIQUE: CT of [...] fluid. Electronically signed by: KIKI ACOSTA MD [facility] Discharge Planning [id number] 04-09-2023 Discharge Planning Note2 Discharge Planning: Needs Prior to Discharge (ex. Home Care Orders, IV/O2 prescriptions) None Discharge Barriersnone Planned Dispositionhome Discharge Destinationhome AMPAC < 20no Patient/City Surveyor Stated Goalhome Anticipated Discharge [id number] Discharge Planning 04/10/23 0810- Care Transition Note: [...] make her primary contact. Boyfriend Sony Munoz [phone]. Will notify registration of same. Desires to keep her mom as second. AMPAC per nursing is 24, no falls or use of assistive devices. No issues in mobility. 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 Will need work excuse. Plan to d/c home with no other anticipated needs. CT will follow. REBECCA Doshi (HALO) Assessment: Discharge Planning Assessment [id number] Discharge Planning Assessment Completed byVictoria Oxford, RN- TCC Primary Contact Name and NumberBoyfriend Sony Munoz [phone] James Qureshi [phone] Prior Level of FunctioningIndependent in all ADL's [...] Profile - Adult v2 09-Apr-2023 15:54 Normal [facility] HCG,URINEon 04-09-2023 Beta HCG ( test) Ql (U) Negative Normal Negative [facility] Comment on above: Performed By: #### H CGU ####[facility] [place] [address] HEPATIC FUNCTION PANELon Albumin [Mass/Vol] 4.6 g/dL Normal 3.4 - 5.0 [facility] Comment on above: Performed By: #### U ARFX #### [facility] [address] [place] [address] ALP [Catalytic activity/Vol] 48 U/L Normal 33 - 110 [facility] Comment on above: Performed By: #### U ARFX #### [place] [address] ALT [Catalytic activity/Vol] 8 U/L Normal 7 - 45 [facility] Comment on above: Result Comment: Glory ents treated with Sulfasalazine may generate falsely decreased results for ALT. Performed By: #### U ARFX #### [place] [address] AST [Catalytic activity/Vol] 16 U/L Normal 9 - 39 [facility] Comment on above: Performed By: #### U ARFX #### [place] [address] Bilirubin [Mass/Vol] 1.1 mg/dL Normal 0.0 - 1.2 [facility] Comment on above: Performed By: #### U ARFX #### [place] [address] Bilirubin.indirect [Mass/Vol] 0.2 mg/dL Normal 0.0 - 0.3 [facility] Comment on above: Performed By: #### U ARFX #### [place] [address] Protein [Mass/Vol] 7.5 g/dL Normal 6.4 - 8.2 [facility] Comment on above: Performed By: #### U ARFX #### [id number] LACTATEon 04-09-2023 Lactate [Moles/Vol] 0.8 mmol/L Normal 0.4 - 2.0 [facility] Comment on above: Result Comment: Yoko puncture immediately after or during the administration of Metamizole may lead to falsely low results. Testing should be performed immediately prior to Metamizole dosing. Performed By: #### L ACT #### [id number] LIPASEon 04-09-2023 Lipase [Catalytic activity/Vol] 31 U/L Normal 9 - 82 [facility] Comment on above: Result Comment: Yoko puncture immediately after or during the administration of Metamizole may lead to falsely low results. Testing should be performed immediately prior to Metamizole dosing. V-ajcqyf-k-benzoquinone imine (metabolite of Acetaminophen) will generate erroneously low results in samples for patients that have taken toxic doses of acetaminophen. Performed By: #### L IPAS #### [id number] [place] [address] Order Reconciliationon 04-09 Order Reconciliation Page 1 [...] capsule 1 cap(s) orally once a day [id number] AM Pantoprazole Enteric Coated Tablet (PROTONIX)DOSE = [...] Every 8 Hours and as Needed Normal [facility] Patient Profile - Adult v2on 04-09-2023 Patient Profile - Adult v2 Profile: Initial Info: How to be AddressedBrianna Spoken Language PreferredEnglish (1) Source of Informationpatient Stated Reason for Admissionmy stomach hurt, I started puking this morning Wants Family/Rep Notified of Admissionn/a; family present Notify PCPnotify PCP [facility] Internal Medicine Jordyn CORRIGAN Informed of Patient Visiting Rightsyes Arrived Fromemergency department Patient Belongingsremains with patient Patient Belongings Remaining with Patientclothing; cell phone/electronics; purse/wallet; jewelry Medications Brought to Hospitalno General Health: Weight in kg54 kilogram(s)(2) Weight in pqn191 pound(s) Weight Methodactual (measured) Scale Typebed Height [...] From History and Physical 09-Apr-2023 15:05 Normal [facility] Provider Note - ED v3on 03-23 Provider [...] made to minimize errors. Minor errors in plate printer may be present. Please call if questions.. [...] a day SIGNIFICANT EVENTS: Past Medical History Description:[place] teeth extraction CRITICAL CARE RESULTS: Recent Lab Results: I have reviewed these laboratory results: Basic Metabolic Panel Trending View [id number] 13:30:00 09-Apr-2023 11:05:00 Glucose, Serum74 91 NA141 140 K3.9 3.7 CL112 H 107 Bicarbonate, Serum19 L 23 Anion Gap, Serum14 14 BUN19 20 CREAT2.16 H 2.20 H GFR Qfmlch12 A 32 A Calcium, Serum8.1 L 9.5 [...] Reference Range: STRAW,YELLOW Appearance, Urine HAZY Specific [place], Urine 1.006 pH, Urine 6.0 Protein, Urine NEGATIVE Glucose, (more content not included)... Normal [facility] Risk Screen - Adult Emergenc [...] instruction; written material Cultural Considerationsnone Developmental Considerationsnone Judaism Considerationsnone Learning Assessment (Other Learner): Learning Assessment [...] an injured patient at a Trauma Center ([facility]/[place] /[place]): no Electronic Signatures: Imelda Ramirez (RN) (Signed 09-Apr-2023 10:53) Authored: Preferred Language, Patient Preferred Pharmacy, Advanced Directives, Family Violence Adult, Learning Assessment (Patient), Learning Assessment (Other Learner), Pressure Injury/TB/Substance, Pressure Injury, CAGE Last Updated: 09-Apr-2023 10:53 by Imelda Ramirez (RN) [facility] Triage - EDon 04-09-2023 Triage [...] support. Weight: 119.0 pounds. Calculated 54.0 kg. [place] Coma Scale: Best Eye Response: (E4) spontaneous [...] 09-Apr-2023 10:52 by Imelda Ramirez (ROXI) Normal [facility] UA MICROSCOPICon 04-09-2023 BACTERIA 2+ /HPF Abnormal [facility] Comment on above: Performed By: #### U AMIC ####[address] [address] RBC 2 /HPF Normal 0-5 [facility] Comment on above: Performed By: #### U AMIC ####[id number] [place] [address] SQUAMOUS EPITH. CELLS 19 /HPF Normal [facility] Comment on above: Performed By: #### U AMIC ####[place] [address] WBC 9 /HPF Abnormal 0-5 [facility] Comment on above: Performed By: #### U AMIC ####[place] [address] URINALYSIS WITH CULTURE IF I NDICATEDon 04-09-2023 Appearance (U) HAZY Normal CLEAR [facility] Comment on above: Performed By: #### U ARFX #### [place] [address] Bilirubin Ql (U) Negative Normal NEGATIVE [facility] Comment on above: Performed By: #### U ARFX #### [place] [address] Color (U) Rox Normal STRAW,YELLOW [facility] Comment on above: Performed By: #### U ARFX #### [place] [address] Glucose Ql (U) Negative Normal NEGATIVE [facility] Comment on above: Performed By: #### U ARFX #### [place] [address] Hemoglobin Ql (U) MODERATE (2+) Abnormal NEGATIVE [facility] Comment on above: Performed By: #### U ARFX #### [place] [address] Ketones Ql (U) Negative Normal NEGATIVE [facility] Comment on above: Performed By: #### U ARFX #### [place] [address] Leukocyte esterase Test strip Ql (U) Negative Normal NEGATIVE [facility] Comment on above: Performed By: #### U ARFX #### [place] [address] Nitrite Ql (U) Positive Abnormal NEGATIVE [facility] Comment on above: Performed By: #### U ARFX #### [place] [address] pH (U) 6.0 [pH] Normal 5.0 - 8.0 [facility] Comment on above: Performed By: #### U ARFX #### [address] [address] Protein Ql (U) Negative Normal NEGATIVE [facility] Comment on above: Performed By: #### U ARFX #### [address] [address] Specific gravity (U) [Rel density] 1.006 Normal 1.005 - 1.035 [facility] Comment on above: Performed By: #### U ARFX #### [address] [address] Urobilinogen (U) [Mass/Vol] mg/dL Normal 0.0 - 1.9 [facility] Comment on above: Performed By: #### U ARFX #### [address] [address] URINE CULTURE,BACTERIALon URINE CULTURE,BACTERIAL PATIENT: LUZ HINOJOSA LOCATION: [address]#: [id number] : [birth year] AGE: SEX: F ORDERED BY: ALIE RODRIGUEZ SOURCE: URINE COLLECTED: 04/09/23 11:05 ANTIBIOTICS AT IZABEL.: RECEIVED : 04/09/23 19:53 SITE: Herbert Alves T S URINE CULTURE,BACTERIAL FINAL 04/10/23 13:17 NO SIGNIFICANT GROWTH. Normal [facility] Comment on above: Performed By: #### U RINC ####[id number] [place] [address] Provider Note - ED v3on 10-21 Provider [...] and vomiting SIGNIFICANT EVENTS: Past Medical History Description:[place] teeth extraction MDM MDM/ED COURSE: PMH: Reviewed [...] ill patient: no Electronic Signatures: Alie Flor (MOBILE CRANE OPERATOR-[facility]) (Signed 06-Nov-2022 19:03) Authored: HPI, PMH, MDM/ED Course, Clinical Impression, Attestation, Chart Review, Scores Last Updated: 06-Nov-2022 19:03 by Alie lFor (MOBILE CRANE OPERATOR-[facility]) References: 1. Data Referenced From Triage - ED 06-Nov-2022 18:48 Normal [facility] Risk Screen - Adult Emergenc yon 11-06-2022 [...] Learning Preferencesverbal instruction Cultural Considerationsnone Developmental Considerationsnone Judaism Considerationsnone Learning Assessment (Other Learner): Learning Assessment [...] an injured patient at a Trauma Center ([facility]/[place] /[place]): no Electronic Signatures: Vivian Allred (RN) (Signed 06-Nov-2022 18:52) Authored: Preferred Language, Patient Preferred Pharmacy, Advanced Directives, Family Violence Adult, Learning Assessment (Patient), Learning Assessment (Other Learner), Pressure Injury/TB/Substance, Pressure Injury, CAGE Last Updated: 06-Nov-2022 18:52 by Vivian Allred (RN) [facility] Triage - EDon 11-06-2022 Triage [...] Accompanied By: self Language: Spoken Language Preferred: New Zealander Reading Language Preferred: [place] Zealander Present on Arrival: Device Present on Arrival [...] obeys commands Best Verbal Response: (V5) oriented [place] Score: 15 Allergies: yes Last menstrual period: unknown MOLD INJECTOR History: control Patient has homicidal thoughts: no [...] 06-Nov-2022 18:51 by Vivian Allred (ROXI) Normal [facility] BASIC METABOLIC PANELon 02-0 Anion gap [Moles/Vol] 11 mmol/L Normal 10 - 20 [facility] Comment on above: Performed By: #### B MP #### [address] [address] Calcium [Mass/Vol] 9.0 mg/dL Normal 8.6 - 10.3 [facility] Comment on above: Performed By: #### B MP #### [address] [address] Chloride [Moles/Vol] 105 mmol/L Normal 98 - 107 [facility] Comment on above: Performed By: #### B MP #### [address] [address] Creatinine [Mass/Vol] 0.73 mg/dL Normal 0.50 - 1.05 [facility] Comment on above: Performed By: #### B MP #### [address] [address] eGFR FEMALE >90 Normal >90 [facility] Comment on above: Result Comment: CALC ULATIONS OF ESTIMATED GFR ARE PERFORMED USING THE 2020 CKD-EPI STUDY REFIT EQUATION WITHOUT THE RACE VARIABLE FOR THE IDMS-TRACEABLE CREATININE METHODS. https://jasn.asnjournals.org/content/early//ASN.2020 484468 Performed By: #### B MP #### [address] [address] Glucose [Mass/Vol] 78 mg/dL Normal 74 - 99 [facility] Comment on above: Performed By: #### B MP #### [address] [address] HCO3 (Bld) [Moles/Vol] 27 mmol/L Normal 21 - 32 [facility] Comment on above: Performed By: #### B MP #### [address] [address] Potassium [Moles/Vol] 3.9 mmol/L Normal 3.5 - 5.3 [facility] Comment on above: Performed By: #### B MP #### [address] [address] Sodium [Moles/Vol] 139 mmol/L Normal 136 - 145 [facility] Comment on above: Performed By: #### B MP #### [address] [address] Urea nitrogen [Mass/Vol] 11 mg/dL Normal 6 - 23 [facility] Comment on above: Performed By: #### B MP #### [address] [address] CBC AND DIFFERENTIALon 08-24 % AUTOMATED IMMATURE GRAN 0.0 % Normal 0.0 - 0.9 [facility] Comment on above: Result Comment: Tammie ture Granulocyte Count (IG) includes promyelocytes, myelocytes and metamyelocytes but does not include bands. Percent differential counts (%) should be interpreted in the context of the absolute cell counts (cells/L). Performed By: #### U ARFX #### [address] [address] Basophils (Bld) [#/Vol] 0.04 10*3/uL Normal 0.00 - 0.1 0 [facility] Comment on above: Performed By: #### U ARFX #### [address] [address] Basophils/100 WBC (Bld) 0.5 % Normal 0.0 - 2.0 [facility] Comment on above: Performed By: #### U ARFX #### [address] [address] Eosinophils (Bld) [#/Vol] 0.08 10*3/uL Normal 0.00 - 0.70 [facility] Comment on above: Performed By: #### U ARFX #### [address] [address] Eosinophils/100 WBC (Bld) 1.1 % Normal 0.0 - 6.0 [facility] Comment on above: Performed By: #### U ARFX #### [address] [address] Erythrocyte distribution width (RBC) [Ratio] 11.3 % Low 11.5 - 14.5 [facility] Comment on above: Performed By: #### U ARFX #### [address] [address] Hematocrit (Bld) [Volume fraction] 41.9 % Normal 36.0 - 46.0 [facility] Comment on above: Performed By: #### U ARFX #### [address] [address] Hemoglobin (Bld) [Mass/Vol] 14.1 g/dL Normal 12.0 - 16.0 [facility] Comment on above: Performed By: #### U ARFX #### [address] [address] Lymphocytes (Bld) [#/Vol] 2.21 10*3/uL Normal 1.20 - 4.80 [facility] Comment on above: Performed By: #### U ARFX #### [address] [address] Lymphocytes/100 WBC (Bld) 29.6 % Normal 13.0 - 44.0 [facility] Comment on above: Performed By: #### U ARFX #### [address] [address] MCHC (RBC) [Mass/Vol] 33.7 g/dL Normal 32.0 - 36.0 [facility] Comment on above: Performed By: #### U ARFX #### [address] [address] MCV (RBC) [Entitic vol] 88 fL Normal 80 - 100 [facility] Comment on above: Performed By: #### U ARFX #### [address] [address] Monocytes (Bld) [#/Vol] 0.61 10*3/uL Normal 0.10 - 1.0 0 [facility] Comment on above: Performed By: #### U ARFX #### [address] [address] Monocytes/100 WBC (Bld) 8.2 % Normal 2.0 - 10.0 [facility] Comment on above: Performed By: #### U ARFX #### [address] [address] Neutrophils (Bld) [#/Vol] 4.53 10*3/uL Normal 1.20 - 7.70 [facility] Comment on above: Result Comment: Perc ent differential counts (%) should be interpreted in the context of the absolute cell counts (cells/L). Performed By: #### U ARFX #### [address] [address] Neutrophils/100 WBC (Bld) 60.6 % Normal 40.0 - 80.0 [facility] Comment on above: Performed By: #### U ARFX #### [address] [address] Platelets (Bld) [#/Vol] 286 10*3/uL Normal 150 - 450 [facility] Comment on above: Performed By: #### U ARFX #### [address] [address] RBC 4.79 x10E12/L Normal 4.00 - 5.20 [facility] Comment on above: Performed By: #### U ARFX #### [address] [address] WBC (Bld) [#/Vol] 7.5 10*3/uL Normal 4.4 - 11.3 [facility] Comment on above: Performed By: #### U ARFX #### [address] [address] HCG,BETA-QUANTITATIVEon HCG,BETA-QUANTITATIVE <2 Normal [facility] Comment on above: Result Comment: . Total HCG measurement is performed using the Tram Open Mile Access Immunoassay which detects intact HCG and free beta HCG subunit. . This test is not indicated for use as a tumor marker. HCG testing is performed using a different test methodology at [facility] than other [facility]. Direct result comparison should only be made within the same method. REF VALUES NON FEMALE <5 MALES <5 Performed By: #### H CGQU #### [address] [address] HCG,URINEon 08-24-2022 Beta HCG ( test) Ql (U) Negative Normal Negative [facility] Comment on above: Performed By: #### H CGU #### [address] [address] Provider Note - ED v3on Provider Note [...] (V49.89) (Z78.9) Surgical History Problems History of [place] tooth extraction x 4 extracted 4 years [...] a day SIGNIFICANT EVENTS: Past Medical History Description:[place] teeth extraction REVIEW OF SYSTEMS CONSTITUTIONAL: Negative [...] affect. N (more content not included)... Normal [facility] Risk Screen - Adult Emergenc yon 08-24-2022 [...] instruction; written material Cultural Considerationsnone Developmental Considerationsnone Judaism Considerationsnone Learning Assessment (Other Learner): Learning Assessment [...] an injured patient at a Trauma Center ([facility]/[place] /[place]): no Electronic Signatures: Ruthann Aguilera) (Signed 24-Aug-2022 16:09) Authored: Preferred Language, Patient Preferred Pharmacy, Advanced Directives, Family Violence Adult, Learning Assessment (Patient), Learning Assessment (Other Learner), Pressure Injury/TB/Substance, Pressure Injury, CAGE Last Updated: 24-Aug-2022 16:09 by Ruthann Aguilera (RN) [facility] Triage - EDon 08-24-2022 Triage [...] Past Medical History: Past Medical History Reviewedyes [place] teeth extraction: Past Medical History, Active Electronic Signatures: Johnny Potter (EMT-P) (Signed 24-Aug-2022 14:18) Entered: Risk Screens, Pain, Travel History, Chart Review, Scores Authored: Quick Triage, Risk Screens, Pain, Travel History, Chart Review, Scores Ruthann Aguilera (RN) (Signed 24-Aug-2022 16:07) Authored: Quick Triage, Pain, Chart Review, Past Medical History Last Updated: 24-Aug-2022 16:07 by Ruthann Aguilera (RN) Normal [facility] UA MICROSCOPICon 08-24-2022 BACTERIA 1+ /HPF Abnormal [facility] Comment on above: Performed By: #### U AMIC ####[address] [address] RBC 83 /HPF Abnormal 0-5 [facility] Comment on above: Performed By: #### U AMIC ####[address] [address] SQUAMOUS EPITH. CELLS 11 /HPF Normal [facility] Comment on above: Performed By: #### U AMIC ####[place] [id number] WBC 7 /HPF Abnormal 0-5 [facility] Comment on above: Performed By: #### U AMIC ####[place] [address] URINALYSISon 08-24-2022 Appearance (U) HAZY Normal CLEAR [facility] Comment on above: Performed By: #### U ARFX #### [place] [address] Bilirubin Ql (U) Negative Normal NEGATIVE [facility] Comment on above: Performed By: #### U ARFX #### [place] [address] Color (U) Yellow Normal STRAW,YELLOW [facility] Comment on above: Performed By: #### U ARFX #### [place] [address] Glucose Ql (U) Negative Normal NEGATIVE [facility] Comment on above: Performed By: #### U ARFX #### [place] [address] Hemoglobin Ql (U) LARGE(3+) Abnormal NEGATIVE [facility] Comment on above: Performed By: #### U ARFX #### [place] [address] Ketones Ql (U) Negative Normal NEGATIVE [facility] Comment on above: Performed By: #### U ARFX #### [place] [address] Leukocyte esterase Test strip Ql (U) Negative Normal NEGATIVE [facility] Comment on above: Performed By: #### U ARFX #### [place] [address] Nitrite Ql (U) Negative Normal NEGATIVE [facility] Comment on above: Performed By: #### U ARFX #### [place] [address] pH (U) 7.0 [pH] Normal 5.0 - 8.0 [facility] Comment on above: Performed By: #### U ARFX #### [address] [address] Protein Ql (U) 30(1+) Abnormal NEGATIVE [facility] Comment on above: Performed By: #### U ARFX #### [address] [address] Specific gravity (U) [Rel density] 1.018 Normal 1.005 - 1.035 [facility] Comment on above: Performed By: #### U ARFX #### [address] [address] Urobilinogen (U) [Mass/Vol] mg/dL Normal 0.0 - 1.9 [facility] Comment on above: Performed By: #### U ARFX #### [address] [address] Office Visit (Internal Medic ine)on 08-03-2022 Follow-up [...] attacks; CATE = N; Verified Transmission to [facility] 5861; Last Updated By: Cortez Klein; 08/03/2022 11:40:41 [...] (V49.89) (Z78.9) Surgical History Problems History of [place] tooth extraction x 4 extracted 4 years [...] 023 Tobacco use status CPHS a) Yes [facility] Internal Medicine Work Phone: Tobacco Screening. Yes [facility] Internal Medicine Work Phone: IO HCG, Urine Test on 06-14-2022 HCG ( test) Ql (U) Negative [facility] Internal Medicine Work Phone: Office Visit [...] Test; Status:Complete; Done: 14Jun2022 04:05PM Performed:In Office; Due:[id number];Ordered; For:Abnormal menses; Ordered By:Jordyn Thakur; Patient Discussion/Summary [...] (V49.89) (Z78.9) Surgical History Problems History of [place] tooth extraction x 4 extracted 4 years ago Family History Mother Family history of Bipolar 1 disorder Father No pertinent family history Maternal Grandmother Family history of Family history of myocardial infarction (V17.3) (Z82.49) in her 40's Family history of type 2 diabetes mellitus (V18.0) (Z83.3) Social History Problems Cigarette nicotine dependence (305.1) (F17.210) (more content not included)... Normal [place] Tobacco Screening.on 022 Fall risk assessment a) No falls within the last year [facility] Internal Medicine Work Phone: Tobacco use status CP a) Yes [facility] Internal Medicine Work Phone: Tobacco Screening. Yes [facility] Internal Medicine Work Phone: XR FINGER(S) [...] distal phalanx. There is minimal callous formation. [employer] Workstation ID: [id number] Dictated by: MAYELIN LANDRY on SunJun 07, 2022 7:25:17 PM EST Transcribed by: MYRNA GOODMAN on SunJun 07, 2022 7:40:20 PM EST Finalized by: MAYELIN LANDRY on SunJun 08, 2022 9:26:59 AM EST Normal [facility] Comment on above: Order Comment: [...] attacks; CATE = N; Verified Transmission to [facility]; Last Updated By: Iluminage Beauty; 06/06/2022 2:28:43 PM Renew: PARoxetine HCl - 30 MG Oral Tablet; TAKE 1 TABLET DAILY Rx By: Jordyn Ramirez; Dispense: 90 Days ; #:90 Tablet; Refill: 1;For: Generalized anxiety disorder with panic attacks; CATE = N; Verified Transmission to [facility]; Last Updated By: Iluminage Beauty; 06/06/2022 2:28:49 PM Patient Discussion/Summary AUGUST WITH [...] (V49.89) (Z78.9) Surgical History Problems History of [place] tooth extraction x 4 extracted 4 years [...] No falls within the last year [facility] Work Phone: Tobacco use status [facility] a) Yes [facility] Work Phone: Tobacco Screening. Yes [facility] Work Phone: XR HAND [...] PM EDT Finalized by: GAURI BLANCA on [place] May 14, 2022 8:49:48 AM EDT Normal [facility] Comment on above: Order Comment: Injur y/Trauma or Illness?:Injury/Trauma How long have you had these symptoms (acute/chronic)?:Acute Reason for exam?:f.u Closed nondisplaced fracture of distal phalanx of left middle finger History of cancer?:n Surgeries, chemotherapy, or radiation?:n Type of Exam?:Subsequent/Follow-up Mechanism of injury?:wrestling on 04/23 HCG, Beta Quantitativeon HCG.beta subunit Qn m[IU]/mL [facility] Work Phone: Comment on above: [...] HCG measurement is performed using the [employer] Access Immunoassay which detects intact HCG and free beta HCG subunit. This test is not indicated for use as a tumor marker. HCG testing is performed using a different test methodology at [facility] than other [facility]. Direct result comparison should only be made within the same method. REF VALUESNON FEMALE <5MALES <5 HCG,BETA-QUANTITATIVEon 04-22 HCG,BETA-QUANTITATIVE <2 Normal [facility] Comment on above: Result Comment: Low- level [...] performed using a different test methodology at [facility] than other [facility]. Direct result comparison should only be made within the same method. REF VALUES NON FEMALE <5 MALES <5 Performed By: #### H CGQU #### [id number] [place] [address] Office Visit (Internal Medic ine)on 05-02-2022 Follow-up [...] (V49.89) (Z78.9) Surgical History Problems History of [place] tooth extraction x 4 extracted 4 years [...] Vitals Vital Signs Recorded: 02May2022 08:59AM Heart Hoan990 Vhemikhv573 Hwljytizp12 Height5 ft 5 in Iexyrr481 lb 15.82 oz BMI Wekqdabpxb85.81 kg/m2 BSA Calculated1.52 Tobacco Usea) Yes Patient [...] Apical pulse (more content not included)... Normal [place] Tobacco Screening.on 022 Fall risk assessment a) No falls within the last year [facility] Work Phone: Tobacco use status [facility] a) Yes [facility] Work Phone: Tobacco Screening. Yes [facility] Work Phone: XR FINGER(S) [...] on SunApr 24, 2022 12:19:58 PM EDT [facility] Comment on above: Order Comment: Injur [...] Transmission to [facility]; Last Updated By: System[employer]; 03/31/2022 2:39:28 PM Health Maintenance Complete Blood Count + Differential; Status:Active; Requested for:31Mar2023; Perform:Lab Services - Lab To Draw (Blood Test); Due:[id number];Ordered; For:Health Maintenance; Ordered By:Jordyn Ramirez; Comprehensive Metabolic Panel; Status:Active; Requested for:31Mar2023; Perform:Lab Services - Lab To Draw (Blood Test); Due:09Qsf7571;Ordered; For:Health Maintenance; Ordered By:Jordyn Ramirez; Hemoglobin A1C; Status:Active; Requested for:31Mar2023; Perform:Lab Services - Lab To Draw (Blood Test); Due:[id number];Ordered; For:Health Maintenance; Ordered By:Jordyn Ramirez; Lipid Panel; Status:Active; Requested for:[id number]; Perform:Lab Services - Lab To Draw (Blood Test); Due:03Sul3896;Ordered; For:Health Maintenance; Ordered By:Jordyn Ramirez; TSH WITH REFLEX TO FREE T4 IF ABNORMAL; Status:Active; Requested for:66Zfi0383; Perform:Lab Services - Lab To Draw (Blood Test); Due:49Uvx1661;Ordered; For:Health Maintenance; Ordered By:Jordyn Ramirez; Patient Discussion/Summary [...] labs History of Present IllnessPresents [facility]. NO [...] loss, n (more content not included)... [facility] + Diffe heron 03-10-2022 Basophils/100 WBC (Bld) 1.0 % 0.0 - 2.0 M [facility] Work Phone: Erythrocyte distribution width (RBC) [Ratio] 12.2 % See Below [facility] Work Phone: Comment on above: Reference Range: 11. 5 - 14.5 Hematocrit (Bld) [Volume fraction] 44.2 % See Below [facility] Work Phone: Comment on above: Reference Range: 36. 0 - 46.0 Hemoglobin (Bld) [Mass/Vol] 15.1 g/dL See Below [facility] Work Phone: Comment on above: Reference Range: 12. 0 - 16.0 Lymphocytes/100 WBC (Bld) 26.6 % See Below [facility] Work Phone: Comment on above: Reference Range: 13. 0 - 44.0 MCHC (RBC) [Mass/Vol] 34.3 g/dL See Below [facility] Work Phone: Comment on above: Reference Range: 32. 0 - 36.0 MCV (RBC) [Entitic vol] 88 fL 80 - 100 M [facility] Work Phone: Monocytes/100 WBC (Bld) 7.4 % 2.0 - 10.0 [facility] Work Phone: Neutrophils/100 WBC (Bld) 64.5 % See Below [facility] Work Phone: Comment on above: Reference Range: 40. 0 - 80.0 Platelets (Bld) [#/Vol] 275 10*3/uL 150 - 450 [facility] Work Phone: RBC (Bld) [#/Vol] 5.05 {x10E12/L} See Below [facility] Work Phone: Comment on above: Reference Range: 4.0 0 - 5.20 WBC (Bld) [#/Vol] 6.7 10*3/uL 4.4 - 11.3 [facility] Work Phone: Complete Blood Count + Differential 0.10 {x10E9/L} See Below [facility] Work Phone: Comment on above: Reference Range: 0.0 0 - 0.10 Complete Blood Count + Differential 0.00 {x10E9/L} See Below [facility] Work Phone: Comment on above: Reference Range: 0.0 0 - 0.70 Complete Blood Count + Differential 0.50 {x10E9/L} See Below [facility] Work Phone: Comment on above: Reference Range: 0.1 0 - 1.00 Complete Blood Count + Differential 1.80 {x10E9/L} See Below [facility] Internal [facility] Work Phone: Comment on above: Reference Range: 1.2 0 - 4.80 Complete Blood Count + Differential 4.30 {x10E9/L} See Below [facility] Work Phone: Comment on above: Reference Range: 1.2 0 - 7.70 Percent differential counts (%) should be interpreted in the context of the absolute cell counts (cells/L). Complete Blood Count + Differential 0.5 % 0.0 - 6.0 [facility] Work Phone: Ferritin, Serumon 03-10-2022 Ferritin [Mass/Vol] 77 ug/L 8 - 150 [facility] Internal [facility] Work Phone: Folate, Serumon 03-10-2022 Folate [Mass/Vol] 19.2 ng/mL >5.0 [facility] Work Phone: Comment on above: Low <3.4Borderline 3 .4-5.0Normal >5.0. Patients receiving more than 5 mg/day of biotin may have interference in test results. A sample should be taken no sooner than eight hours after previous dose. Contact the testing laboratory for additional information. Hemoglobin A1Con 03-10-2022 Glucose [Mass/Vol] 103 mg/dL [facility] Work Phone: HbA1c (Bld) [Mass fraction] 5.2 % [facility] Work Phone: Comment on above: Diagnosis of Diabete s-Adults Non-Diabetic: < or = 5.6% Increased risk for developing diabetes: 5.7-6.4% Diagnostic of diabetes: > or = 6.5%. Monitoring of Diabetes Age (y) Therapeutic Goal (%) Adults: >18 <7.0 Pediatrics: 13-18 <7.5 7-12 <8.0 0- 6 7.5-8.5 [place] [employer]. Diabetes Care 33(S1), Jul 2009. Laboratory - Chemistry and C hemistry - challengeon 03-10-2022 Albumin BCP dye [Mass/Vol] 4.9 g/dL 3.4 - 5.0 [facility] Work Phone: ALP [Catalytic activity/Vol] 42 U/L 33 - 110 [facility] Work Phone: ALT With P-5'-P [Catalytic activity/Vol] 9 U/L 7 - 45 [facility] Work Phone: Comment on above: Patients treated wit h Sulfasalazine may generate falsely decreased results for ALT. Anion gap [Moles/Vol] 13 mmol/L 10 - 20 [facility] Work Phone: AST With P-5'-P [Catalytic activity/Vol] 16 U/L 9 - 39 [facility] Work Phone: Bilirubin [Mass/Vol] 1.3 mg/dL above high threshold 0.0 - 1.2 [facility] Work Phone: Calcium [Mass/Vol] 9.5 mg/dL 8.6 - 10.3 [facility] Work Phone: Chloride [Moles/Vol] 106 mmol/L 98 - 107 [facility] Work Phone: CO2 [Moles/Vol] 25 mmol/L 21 - 32 [facility] Work Phone: Creatinine [Mass/Vol] 0.85 mg/dL See Below [facility] Work Phone: Comment on above: Reference Range: 0.5 0 - 1.05 Glucose [Mass/Vol] 87 mg/dL 74 - 99 [facility] Work Phone: Iron [Mass/Vol] 141 ug/dL 35 - 150 [facility] Work Phone: Iron binding capacity [Mass/Vol] 349 ug/dL 240 - 445 [facility] Work Phone: Potassium [Moles/Vol] 3.9 mmol/L 3.5 - 5.3 [facility] Work Phone: Protein [Mass/Vol] 7.5 g/dL 6.4 - 8.2 [facility] Work Phone: Sodium [Moles/Vol] 140 mmol/L 136 - 145 [facility] Work Phone: TSH Qn 0.93 m[IU]/L See Below [facility] Work Phone: Comment on above: Reference Range: 0.4 4 - 3.98 TSH testing is performed using different testing methodology at [facility] than at other [facility]. Direct result comparisons should only be made within the same method. Urea nitrogen [Mass/Vol] 15 mg/dL 6 - 23 [facility] Work Phone: Lipid Panelon 03-10-2022 Cholesterol [Mass/Vol] 143 mg/dL 0 - 199 [facility] Work Phone: Comment on above: . [...] dosing. Cholesterol in HDL [Mass/Vol] 58.0 mg/dL [facility] Work Phone: Comment on above: . AGE VERY LOW LOW N ORMAL HIGH 0-19 Y < 35 < 40 40-45 ---- 20-24 Y ---- < 40 >45 ---- >24 Y ---- < 40 40-60 >60. Cholesterol in LDL [Mass/Vol] 74 mg/dL 0 - 119 [facility] Work Phone: Comment on above: . NEAR BORD AGE DEE DEE RABLE OPTIMAL HIGH HIGH VERY HIGH 0-19 Y 0 - 109 --- 110-129 >/= 130 ---- 20-24 Y 0 - 119 --- 120-159 >/= 160 ---- >24 Y 0 - 99 100-129 130-159 160-189 >/=190. Cholesterol non HDL [Mass/Vol] 85 mg/dL 0 - 149 [facility] Work Phone: Comment on above: AGE DESIRABLE BORDER LINE HIGH HIGH VERY HIGH 0-19 Y 0 - 119 120 - 144 >/= 145 >/= 160 20-24 Y 0 - 149 150 - 189 >/= 190 ---- >24 Y 30 MG/DL ABOVE LDL CHOLESTEROL GOAL. Cholesterol.total/Doris sterol in HDL [Mass ratio] 2.5 {ratio} [facility] Work Phone: Comment on above: REF VALUESDESIRABLE < 3.4HIGH RISK > 5.0 Triglyceride [Mass/Vol] 57 mg/dL 0 - 149 [facility] Work Phone: Comment on above: . AGE [...] Lipid Panel 11 mg/dL 0 - 40 [facility] Work Phone: No Panel Informationon 03-10 >90 >90 [facility] Work Phone: Comment on above: CALCULATIONS OF JOSE MATED GFR ARE PERFORMED USING THE 2020 CKD-EPI STUDY REFIT EQUATION WITHOUT THE RACE VARIABLE FOR THE IDMS-TRACEABLE CREATININE METHODS.https://jasn.asnjournals.org/content// ASN.9237864230 40 % 25 - 45 [facility] Work Phone: Vitamin B12, Serumon 022 Cobalamin (Vitamin B12) [Mass/Vol] 215 pg/mL 211 - 911 [facility] Work Phone: Office Visit [...] Transmission to [facility]; Last Updated By: Cortez lKein; 03/03/2022 2:58:35 PM Start: PARoxetine HCl - 10 MG Oral Tablet (Paxil); TAKE 1 TABLET DAILY Rx By: Jordyn Ramirez; Dispense: 90 Days ; #:90 Tablet; Refill: 0;For: Generalized anxiety disorder with panic attacks; CATE = N; Verified Transmission to [facility]; Last Updated By: Iluminage Beauty; 03/03/2022 2:58:27 PM GERD (gastroesophageal reflux disease) Renew: Omeprazole 20 MG Oral Capsule Delayed Release; TAKE 1 CAPSULE Daily Rx By: Jordyn Ramirez; Dispense: 90 Days ; #:90 Capsule; Refill: 3;For: GERD (gastroesophageal reflux disease); CATE = N; Verified Transmission to [facility]; Last Updated By: Iluminage Beauty; 03/03/2022 2:59:29 PM Patient Discussion/Summary 1 MONTH [...] AND MEDICATIONS (more content not included)... Normal [place] Tobacco Screening.on 022 Adult depression screening assessment No [facility] Work Phone: Fall risk assessment a) No falls within the last year [facility] Work Phone: Tobacco use status [facility] a) Yes [facility] Work Phone: Tobacco Screening. Yes [facility] Work Phone: C. trachomatis/GC PCR Panel on [facility] 10-26-2021 C. trachomatis/GC PCR Panel on [facility] Reason for preventing automatic release->Other Is this specimen being sent to an external lab?->No Release to patient->Manual release only [id number]&Urine-First Void^^^Urine&Urine C. trachomatis PCR on [facility]: NEGATIVE-Chlamydia [...] with other laboratory and clinical data. Normal [facility] Comment on above: Performed By: #### C [facility] ####[address] [phone] Progress Noteon 10-26-2021 Knitted [employer]ment [employer]isher Authentication Interface Message Text Patient ID: Luz [...] once for 1 dose - nystatin (MYCOSTATIN) [id number] UNIT/GM OINT ointment; Apply to affected area [...] Blood, Urine Negative Negative POCT Urine Specific Destin 1.015 1.005 - 1.030 POCT Ketones, Urine Negative Negative mg/dl POCT Glucose, Urine Negative Negative mg/dl Normal [facility] Urine Cultureon 10-26-2021 Bacteria identified Cx Nom (U) Is this specimen being sent to an external lab?->No Release to patient->Automatic [id number]&Urine-CCMS^^^Urine &Urine Urine Culture: Enterococcus sp. Source: [facility] Collected: 10/26/21 17:15 Site: Urine Received : 10/26/21 21:53 Urine Culture FINAL 10/28/21 09:26 10,000 - 50,000 CFU/ml of Normal Skin/urogenital ivy present <10,000 CFU/ml Enterococcus sp. If further work-up is needed, providers should call the Microbiology lab within 3 days. Normal [facility] Comment on above: Performed By: #### U RINE ####[address] [phone] SARS-CoV-2 (COVID-19) RT-PCR on 08-04-2021 SARS-CoV-2 (COVID-19) RNA GIOVANNI+probe Ql (Unsp spec) Positive Abnormal [facility] Comment on above: Order Comment: Is th is a pre-procedure screening test?->NoIs this specimen being sent to an external lab?->[id number]&Nasopharyngeal swab^\S\^Nose&Nose Result Comment: POSI TIVE: SARS-CoV-2 RNA [...] Authorization (EUA) and has been verified by [facility]. This test is only authorized for [...] at the following links: For Healthcare Providers: www.CuPcAkE & other things you bake.gov/media/375126/download For Patients: www.CuPcAkE & other things you bake.gov/Nusirt/664372/download - Reference Value: Negative Performed By: #### C OVID ####[address] [phone] CHRIS SARS CoV-2 RT PCR Detected Normal A [facility] Comment on above: Order Comment: Is th is a pre-procedure screening test?->NoIs this specimen being sent to an external lab?->[id number]&Nasopharyngeal swab^\S\^Nose&Nose Performed By: #### C OVID ####[address] [phone] Progress Noteon 08-02-2021 Knitted [employer]isher Authentication Interface Message Text Patient ID: Luz [...] CONTROL POCT Control - Valid Lot Number [id number] Normal [facility] SARS-CoV-2 (COVID-19) RT-PCR on 08-02-2021 Date of Symptom Onset [id number] Normal [facility] Comment on above: Order Comment: Is th is a pre-procedure screening test?->NoIs this specimen being sent to an external lab?->[id number]&Nasopharyngeal swab^\S\^Nose&Nose Performed By: #### C OVID ####[address] [phone] Employed in Healthcare setting? No Normal [facility] Comment on above: Order Comment: Is th is a pre-procedure screening test?->NoIs this specimen being sent to an external lab?->[id number]&Nasopharyngeal swab^\S\^Nose&Nose Performed By: #### C OVID ####[address] [phone] Hospitalized? No Normal [facility] Comment on above: Order Comment: Is th is a pre-procedure screening test?->NoIs this specimen being sent to an external lab?->[id number]&Nasopharyngeal swab^\S\^Nose&Nose Performed By: #### C OVID ####[address], [place] [phone] ICU? No Normal [facility] Comment on above: Order Comment: Is th is a pre-procedure screening test?->NoIs this specimen being sent to an external lab?->[id number]&Nasopharyngeal swab^\S\^Nose&Nose Performed By: #### C OVID ####[address] [phone] ? Unknown Normal [facility] Comment on above: Order Comment: Is th is a pre-procedure screening test?->NoIs this specimen being sent to an external lab?->[id number]&Nasopharyngeal swab^\S\^Nose&Nose Performed By: #### C OVID ####[place], [place] [phone] [facility]? No Normal [facility] Comment on above: Order Comment: Is th is a pre-procedure screening test?->NoIs this specimen being sent to an external lab?->[id number]&Nasopharyngeal swab^\S\^Nose&Nose Performed By: #### C OVID ####[address] [phone] SARS-CoV-2 (COVID-19) RNA GIOVANNI+probe Ql (Unsp spec) No Normal [facility] Comment on above: Order Comment: Is th is a pre-procedure screening test?->NoIs this specimen being sent to an external lab?->[id number]&Nasopharyngeal swab^\S\^Nose&Nose Performed By: #### C OVID ####[place], [place] [phone] Symptomatic as defined by [facility]? Yes Normal [facility] Comment on above: Order Comment: Is th is a pre-procedure screening test?->NoIs this specimen being sent to an external lab?->[id number]&Nasopharyngeal swab^\S\^Nose&Nose Performed By: #### C OVID ####[address] [place], [place] [phone] Progress Noteon 07-04-2021 Knitted [employer]ment [employer]isher Authentication Interface Message Text Patient ID: Luz [...] thought content normal. Cognition are normal. Normal [facility] C-Reactive Proteinon C-Reactive Protein 0.5 mg/dL Normal 0.0-1.0 [facility] Comment on above: Order Comment: With differential. Is this specimen being sent to an external lab?->No Release to patient->Automatic 13362&Blood^\S\^Venous&Venous TIBC will not be run. Is this specimen being sent to an external lab?->No Release to patient->Automatic 20774&Blood^\S\^Venous&Venous Result Comment: CRP determinations in neonates should be interpreted with caution. CRP may be elevated in circumstances not associated with inflammation (e.g. difficult delivery, pneumothorax). In premature neonates CRP levels may not rise to abnormal levels even if sepsis is present; some speculate that immature liver function decreases the ability to generate a CRP response. Performed By: #### C RP #### [place] [address] Comp Metabolic Panelon 06-23 Albumin [Mass/Vol] 4.6 g/dL Normal 3.5-5.0 [facility] Comment on above: Order Comment: With differential. Is this specimen being sent to an external lab?->No Release to patient->Automatic 08451&Blood^\S\^Venous&Venous TIBC will not be run. Is this specimen being sent to an external lab?->No Release to patient->Automatic 07833&Blood^\S\^Venous&Venous Performed By: #### C MP #### [address] [id number] ALP [Catalytic activity/Vol] 42 U/L Normal 35-104 [facility] Comment on above: Order Comment: With differential. Is this specimen being sent to an external lab?->No Release to patient->Automatic 73427&Blood^\S\^Venous&Venous TIBC will not be run. Is this specimen being sent to an external lab?->No Release to patient->Automatic 99357&Blood^\S\^Venous&Venous Performed By: #### C MP #### [place] [address] ALT [Catalytic activity/Vol] 13 U/L Normal 0-31 [facility] Comment on above: Order Comment: With differential. Is this specimen being sent to an external lab?->No Release to patient->Automatic 12672&Blood^\S\^Venous&Venous TIBC will not be run. Is this specimen being sent to an external lab?->No Release to patient->Automatic 00570&Blood^\S\^Venous&Venous Performed By: #### C MP #### [place] [address] AST [Catalytic activity/Vol] 19 U/L Normal 0-31 [facility] Comment on above: Order Comment: With differential. Is this specimen being sent to an external lab?->No Release to patient->Automatic 83077&Blood^\S\^Venous&Venous TIBC will not be run. Is this specimen being sent to an external lab?->No Release to patient->Automatic 31921&Blood^\S\^Venous&Venous Performed By: #### C MP #### [place] [address] Bili,Total 0.7 mg/dl Normal 0.0-1.0 [facility] Comment on above: Order Comment: With differential. Is this specimen being sent to an external lab?->No Release to patient->Automatic 20236&Blood^\S\^Venous&Venous TIBC will not be run. Is this specimen being sent to an external lab?->No Release to patient->Automatic 22400&Blood^\S\^Venous&Venous Performed By: #### C MP #### [place] [address] Calcium [Mass/Vol] 9.7 mg/dL Normal 7.6-11.0 [facility] Comment on above: Order Comment: With differential. Is this specimen being sent to an external lab?->No Release to patient->Automatic 54386&Blood^\S\^Venous&Venous TIBC will not be run. Is this specimen being sent to an external lab?->No Release to patient->Automatic 89941&Blood^\S\^Venous&Venous Performed By: #### C MP #### [place] [address] Chloride [Moles/Vol] 102 mmol/L Normal 96-108 [facility] Comment on above: Order Comment: With differential. Is this specimen being sent to an external lab?->No Release to patient->Automatic 86474&Blood^\S\^Venous&Venous TIBC will not be run. Is this specimen being sent to an external lab?->No Release to patient->Automatic 24633&Blood^\S\^Venous&Venous Performed By: #### C MP #### [place] [address] CO2 [Moles/Vol] 24.4 mmol/L Normal 22.0-29.0 [facility] Comment on above: Order Comment: With differential. Is this specimen being sent to an external lab?->No Release to patient->Automatic 91443&Blood^\S\^Venous&Venous TIBC will not be run. Is this specimen being sent to an external lab?->No Release to patient->Automatic 60521&Blood^\S\^Venous&Venous Performed By: #### C MP #### [address] [address] Creatinine [Mass/Vol] 0.74 mg/dL Normal 0.50-1.00 [facility] Comment on above: Order Comment: With differential. Is this specimen being sent to an external lab?->No Release to patient->Automatic 38065&Blood^\S\^Venous&Venous TIBC will not be run. Is this specimen being sent to an external lab?->No Release to patient->Automatic 23567&Blood^\S\^Venous&Venous Result Comment: Premature 0.3-1.0 mg/dL Performed By: #### C MP #### [place] [address] Glucose [Mass/Vol] 68 mg/dL Low 70-99 [facility] Comment on above: Order Comment: With differential. Is this specimen being sent to an external lab?->No Release to patient->Automatic 40009&Blood^\S\^Venous&Venous TIBC will not be run. Is this specimen being sent to an external lab?->No Release to patient->Automatic 01016&Blood^\S\^Venous&Venous Result Comment: Criteria for Diagnosis of Diabetes(Effective 12/26/10): Fasting specimen (no caloric intake for at least 8 hours). <100 mg/dl Normal 100-125 mg/dl Increased Risk for Diabetes >125 mg/dl Diagnostic for Diabetes Random Glucose (any time of day without regard to last meal). >=200 mg/dl plus Classic Symptoms of Diabetes Performed By: #### C MP #### [place] [address] Potassium [Moles/Vol] 4.8 mmol/L Normal 3.3-5.1 [facility] Comment on above: Order Comment: With differential. Is this specimen being sent to an external lab?->No Release to patient->Automatic 52828&Blood^\S\^Venous&Venous TIBC will not be run. Is this specimen being sent to an external lab?->No Release to patient->Automatic 22205&Blood^\S\^Venous&Venous Performed By: #### C MP #### [place] [address] Protein [Mass/Vol] 7.6 g/dL Normal 5.9-8.4 [facility] Comment on above: Order Comment: With differential. Is this specimen being sent to an external lab?->No Release to patient->Automatic 73948&Blood^\S\^Venous&Venous TIBC will not be run. Is this specimen being sent to an external lab?->No Release to patient->Automatic 11456&Blood^\S\^Venous&Venous Performed By: #### C MP #### [place] [address] Sodium [Moles/Vol] 139 mmol/L Normal 133-145 [facility] Comment on above: Order Comment: With differential. Is this specimen being sent to an external lab?->No Release to patient->Automatic 71982&Blood^\S\^Venous&Venous TIBC will not be run. Is this specimen being sent to an external lab?->No Release to patient->Automatic 53317&Blood^\S\^Venous&Venous Performed By: #### C MP #### [place] [address] Urea nitrogen [Mass/Vol] 16 mg/dL Normal 4-19 [facility] Comment on above: Order Comment: With differential. Is this specimen being sent to an external lab?->No Release to patient->Automatic 69493&Blood^\S\^Venous&Venous TIBC will not be run. Is this specimen being sent to an external lab?->No Release to patient->Automatic 36282&Blood^\S\^Venous&Venous Performed By: #### C MP #### [place] [address] Complete Blood Counton 06-23 Differential Complete Automated Normal [facility] Comment on above: Order Comment: With differential. Is this specimen being sent to an external lab?->No Release to patient->Automatic 90895&Blood^\S\^Venous&Venous TIBC will not be run. Is this specimen being sent to an external lab?->No Release to patient->Automatic 04533&Blood^\S\^Venous&Venous Performed By: #### C BC #### [place] [address] Basophils/100 WBC (Bld) 0.60 % Normal 0.00-1.00 [facility] Comment on above: Order Comment: With differential. Is this specimen being sent to an external lab?->No Release to patient->Automatic 70919&Blood^\S\^Venous&Venous TIBC will not be run. Is this specimen being sent to an external lab?->No Release to patient->Automatic 14535&Blood^\S\^Venous&Venous Performed By: #### C BC #### [place] [address] Eosinophils/100 WBC (Bld) 1.40 % Normal 0.00-3.00 [facility] Comment on above: Order Comment: With differential. Is this specimen being sent to an external lab?->No Release to patient->Automatic 36783&Blood^\S\^Venous&Venous TIBC will not be run. Is this specimen being sent to an external lab?->No Release to patient->Automatic 16098&Blood^\S\^Venous&Venous Performed By: #### C BC #### [place] [address] Erythrocyte distribution width (RBC) [Ratio] 11.5 % Normal 0.0-14.4 [facility] Comment on above: Order Comment: With differential. Is this specimen being sent to an external lab?->No Release to patient->Automatic 06258&Blood^\S\^Venous&Venous TIBC will not be run. Is this specimen being sent to an external lab?->No Release to patient->Automatic 47151&Blood^\S\^Venous&Venous Performed By: #### C BC #### [place] [address] Hematocrit (Bld) [Volume fraction] 42.3 % Normal 36.0-44.0 [facility] Comment on above: Order Comment: With differential. Is this specimen being sent to an external lab?->No Release to patient->Automatic 13572&Blood^\S\^Venous&Venous TIBC will not be run. Is this specimen being sent to an external lab?->No Release to patient->Automatic 67259&Blood^\S\^Venous&Venous Performed By: #### C BC #### [place] [address] Hemoglobin (Bld) [Mass/Vol] 14.7 g/dL Normal 12.0-15.0 [facility] Comment on above: Order Comment: With differential. Is this specimen being sent to an external lab?->No Release to patient->Automatic 14174&Blood^\S\^Venous&Venous TIBC will not be run. Is this specimen being sent to an external lab?->No Release to patient->Automatic 93772&Blood^\S\^Venous&Venous Performed By: #### C BC #### [place] [address] Immature granulocytes/100 WBC (Bld) 0.20 % Normal [facility] Comment on above: Order Comment: With differential. Is this specimen being sent to an external lab?->No Release to patient->Automatic 02888&Blood^\S\^Venous&Venous TIBC will not be run. Is this specimen being sent to an external lab?->No Release to patient->Automatic 18350&Blood^\S\^Venous&Venous Result Comment: Tammie ture Granulocyte Percent includes promyelocytes, myelocytes, and metamyelocytes. IG% > 1.0 indicates a left shift is present. With automated differentials, bands are included in the neutrophil count and not in the Immature Granulocyte Percent. Performed By: #### C BC #### [place] [address] Lymphocytes/100 WBC (Bld) 30.5 % Normal 24.0-44.0 [facility] Comment on above: Order Comment: With differential. Is this specimen being sent to an external lab?->No Release to patient->Automatic 68339&Blood^\S\^Venous&Venous TIBC will not be run. Is this specimen being sent to an external lab?->No Release to patient->Automatic 15580&Blood^\S\^Venous&Venous Performed By: #### C BC #### [place] [id number] MCH (RBC) [Entitic mass] 30.0 pg Normal 26.0-34.0 [facility] Comment on above: Order Comment: With differential. Is this specimen being sent to an external lab?->No Release to patient->Automatic 58483&Blood^\S\^Venous&Venous TIBC will not be run. Is this specimen being sent to an external lab?->No Release to patient->Automatic 37944&Blood^\S\^Venous&Venous Performed By: #### C BC #### [place] [address] MCHC 34.8 % Normal 31.0-37.0 [facility] Comment on above: Order Comment: With differential. Is this specimen being sent to an external lab?->No Release to patient->Automatic 11464&Blood^\S\^Venous&Venous TIBC will not be run. Is this specimen being sent to an external lab?->No Release to patient->Automatic 19924&Blood^\S\^Venous&Venous Performed By: #### C BC #### [place] [address] MCV (RBC) [Entitic vol] 86.3 fL Normal 80.0-100.0 [facility] Comment on above: Order Comment: With differential. Is this specimen being sent to an external lab?->No Release to patient->Automatic 80345&Blood^\S\^Venous&Venous TIBC will not be run. Is this specimen being sent to an external lab?->No Release to patient->Automatic 51292&Blood^\S\^Venous&Venous Performed By: #### C BC #### [address] [id number] Monocytes/100 WBC (Bld) 8.70 % High 3.00-6.00 [facility] Comment on above: Order Comment: With differential. Is this specimen being sent to an external lab?->No Release to patient->Automatic 84442&Blood^\S\^Venous&Venous TIBC will not be run. Is this specimen being sent to an external lab?->No Release to patient->Automatic 64459&Blood^\S\^Venous&Venous Performed By: #### C BC #### [place] [address] Neutrophils (Bld) [#/Vol] 5.2 10*3/uL Normal 2.0-7.2 [facility] Comment on above: Order Comment: With differential. Is this specimen being sent to an external lab?->No Release to patient->Automatic 15888&Blood^\S\^Venous&Venous TIBC will not be run. Is this specimen being sent to an external lab?->No Release to patient->Automatic 26464&Blood^\S\^Venous&Venous Performed By: #### C BC #### [place] [address] Neutrophils/100 WBC (Bld) 58.6 % Normal 35.0-66.0 [facility] Comment on above: Order Comment: With differential. Is this specimen being sent to an external lab?->No Release to patient->Automatic 27907&Blood^\S\^Venous&Venous TIBC will not be run. Is this specimen being sent to an external lab?->No Release to patient->Automatic 72883&Blood^\S\^Venous&Venous Performed By: #### C BC #### [address] [address] Nucleated RBC/100 WBC (Bld) [Ratio] 0.0 % Normal -1.0-0.0 [facility] Comment on above: Order Comment: With differential. Is this specimen being sent to an external lab?->No Release to patient->Automatic 48005&Blood^\S\^Venous&Venous TIBC will not be run. Is this specimen being sent to an external lab?->No Release to patient->Automatic 63133&Blood^\S\^Venous&Venous Performed By: #### C BC #### [address] [id number] Platelet mean volume (Bld) [Entitic vol] 10.7 fL Normal [facility] Comment on above: Order Comment: With differential. Is this specimen being sent to an external lab?->No Release to patient->Automatic 98260&Blood^\S\^Venous&Venous TIBC will not be run. Is this specimen being sent to an external lab?->No Release to patient->Automatic 91394&Blood^\S\^Venous&Venous Result Comment: MPV is platelet range and age dependent Performed By: #### C BC #### [place] [address] Platelets (Bld) [#/Vol] 285 10*3/uL Normal 150-450 [facility] Comment on above: Order Comment: With differential. Is this specimen being sent to an external lab?->No Release to patient->Automatic 29833&Blood^\S\^Venous&Venous TIBC will not be run. Is this specimen being sent to an external lab?->No Release to patient->Automatic 59606&Blood^\S\^Venous&Venous Performed By: #### C BC #### [place] [address] RBC 4.90 10E12/L Normal 4.00-4.90 [facility] Comment on above: Order Comment: With differential. Is this specimen being sent to an external lab?->No Release to patient->Automatic 14083&Blood^\S\^Venous&Venous TIBC will not be run. Is this specimen being sent to an external lab?->No Release to patient->Automatic 26836&Blood^\S\^Venous&Venous Performed By: #### C BC #### [address] [id number] WBC (Bld) [#/Vol] 8.8 10*3/uL Normal 4.5-11.0 [facility] Comment on above: Order Comment: With differential. Is this specimen being sent to an external lab?->No Release to patient->Automatic 91139&Blood^\S\^Venous&Venous TIBC will not be run. Is this specimen being sent to an external lab?->No Release to patient->Automatic 49640&Blood^\S\^Venous&Venous Performed By: #### C BC #### [address] [address] Ferritinon 06-23-2021 Ferritin [Mass/Vol] 44 ng/mL Normal 10-291 [facility] Comment on above: Order Comment: With differential. Is this specimen being sent to an external lab?->No Release to patient->Automatic 64501&Blood^\S\^Venous&Venous TIBC will not be run. Is this specimen being sent to an external lab?->No Release to patient->Automatic 63670&Blood^\S\^Venous&Venous Performed By: #### F ERTN #### [place] [address] TSH with reflex T4FRon 06-23 TSH with reflex T4FR 2.171 uIU/mL Normal 0.350-5.500 [facility] Comment on above: Order Comment: With differential. Is this specimen being sent to an external lab?->No Release to patient->Automatic 83891&Blood^\S\^Venous&Venous TIBC will not be run. Is this specimen being sent to an external lab?->No Release to patient->Automatic 97776&Blood^\S\^Venous&Venous Performed By: #### T SHR #### [address] [address] Vitamin D 25 OHon 06-23-2021 25 OH Vitamin D 37 ng/mL Normal 30-100 [facility] Comment on above: Order Comment: With differential. Is this specimen being sent to an external lab?->No Release to patient->Automatic 11046&Blood^\S\^Venous&Venous TIBC will not be run. Is this specimen being sent to an external lab?->No Release to patient->Automatic 63861&Blood^\S\^Venous&Venous Result Comment: Refe rence ranges provided by [facility] are based on Endocrine Society Guidelines: Level Characterization <21 ng/mL Vitamin D deficiency 21-29 ng/mL Suboptimal Vitamin D status 30-100 ng/mL Optimal Vitamin D status >100 ng/mL Potentially toxic Vitamin D effects NOTE: New Reference Ranges effective 18 Performed By: #### V 25DH #### [place] [address] Progress Noteon 06-22-2021 Knitted Garment Finisher Authentication Interface Message Text Patient ID: Luz [...] Line *Present Clear Background *Present Lot Number [id number] POCT urinalysis dipstick Collection Time: 06/22/21 5:51 PM Result Value Ref Range POCT, Leukocytes, Urine Negative Negative POCT Nitrite, Urine Negative Negative POCT Protein, Urine Trace Negative - Trace mg/dl POCT Urine pH 6.0 5.0 - 8.0 pH POCT Blood, Urine Negative Negative POCT Urine Specific [place] 1.030 1.005 - 1.030 POCT Ketones, Urine Negative Negative mg/dl POCT Glucose, Urine Negative Negative mg/dl Normal [facility] Progress Noteon 02-15-2021 Knitted Garment Finisher Authentication Interface Message Text Patient ID: Luz [...] Line *Present Clear Background *Present Lot Number [id number] Normal [facility] Strep Cultureon 02-15-2021 Strep Culture Is this specimen javier ng sent to an external lab?->No Release to patient->Automatic 61080&Throat swab^^^Throat swab&Throat swab Strep Culture: No Beta hemolytic Streptococci isolated. Source: THRSW Collected: 02/15/21 13:17 Site: Throat swab Received : 02/15/21 20:06 Strep Culture FINAL 02/17/21 07:53 No Beta hemolytic Streptococci isolated. Normal [facility] Comment on above: Performed By: #### S TREP #### [facility] [place] [address] Progress Noteon 12-14-2020 Knitted Garment Finisher Authentication Interface Message Text Patient ID: Luz [...] She exh (more content not included)... Normal [facility] Knitted Garment Finisher Authentication Interface Message Text Luz Hinojosa is [...] Assessment - CRAFFT Authorized by: Page Adan APRN-[facility] CRAT Results: 1. Drink more than a few sips of beer, wine, or any drink containing alcohol? Put 0 if none.: 0 2. Use any marijuana (weed, oil, or hash by smoking, vaping, or in food) or synthetic marijuana (like K2, Spice )? Put 0 if none.: 0 3. Use anything else to get high (like other illegal drugs, prescription or kwrz-yik-ydgaiab medications, and things that you sniff, marte, or vape)? Put 0 if none.: 0 4. Use any tobacco or nicotine products (for example, cigarettes, e-cigarettes, hookahs or smokeless tobacco)?: 0 5. Have you ever ridden in a CAR driven by someone (including yourself) who was high or had been using alcohol or drugs?: No Electronically signed by: Page Adan, MOBILE CRANE OPERATOR-GRAIN BLENDER Normal [facility] EMERGENCY REPORTon 9 EMERGENCY REPORT [facility] EMERGENCY ROOM REPORT NAME ACCOUNT SEX AGE ADMIT DISCHARGE PT MED. RECORD# NUMBER DATE DATE GIANFRANCO HINOJOSA [id number] Linette 18 04/01/19 04/01/19 3 LUZ Alves [id number] ROOM: ER DATE OF : 2000 DICTATING [...] Pharynx is symmetric without any RPA, PPA, DATA ARCHITECT MANAGER. There is no significant dental problems. She [...] ambulatory from the emergency room. Follow up [facility]. Return p.r.n. as necessary. In general she appears to be nontoxic and she is pleasant Page 1 of 2 ASHISH LUZ Joselyn Emergency Room Report and alert and oriented. DIAGNOSIS: Upper respiratory infection, sinus congestion and left otitis media. Dictated By: Sherri Lisa DO 04/02/19 04:52 JOB #: [id number] Transcribed By: yesenia 04/02/19 06:23 Electronically signed by: E-SIGN SHERRI LISA DO 04/07/19 21:31 Page 2 of 2 LUZ HINOJOSA Emergency Room Report Normal [facility] XR Chest 2 Viewson 8 XR Chest 2 Views Exam Date/Time: 04/01/2018 23:14 EDT Reason for Exam: Cough Report STUDY: XR Chest 2 Views; 04/01/2018 11:14 pm INDICATION: Cough. COMPARISON: 09/12/2017 ACCESSION NUMBER(S): [id number] ORDERING CLINICIAN: Sherri Payton FINDINGS: CARDIOMEDIASTINAL SILHOUETTE: Cardiomediastinal silhouette is normal in size and configuration. LUNGS: No focal consolidation, effusion, edema, or pneumothorax. ABDOMEN: No remarkable upper abdominal findings. BONES: No acute osseous changes. IMPRESSION: 1. No evidence of acute cardiopulmonary process. FINAL REPORT Dictated: 04/02/2018 0:02 am Rene Toth MD Signed (Electronic Signature): 04/02/2018 0:02 am Signed by: Rene Toth MD Technologist: [facility] Vital Signs Date Time Vital Sign Value Performing Clinician Facility 10-20-2024 17:14-0400 Body height 165.1 cm Geri Andrews DO Work Phone: [facility] 10-20-2024 17:14-0400 Body mass index (BMI) [Ratio] 21.6 kg/m2 Geri Marker DO Work Phone: [facility] 10-20-2024 17:14-0400 Body temperature 98.3 [degF] Geri Marker DO Work Phone: [facility] 10-20-2024 17:14-0400 Body weight 58.96 kg Geri Marker DO Work Phone: [facility] 10-20-2024 17:14-0400 Diastolic blood pressure 73 mm[Hg] Geri Marker DO Work Phone: [facility] 10-20-2024 17:14-0400 Heart rate 107 /min Geri Marker DO Work Phone: [facility] 10-20-2024 17:14-0400 Respiratory rate 16 /min Geri Marker DO Work Phone: [facility] 10-20-2024 17:14-0400 SaO2% (BldA) [Mass fraction] 96 % Geri Marker DO Work Phone: [facility] 10-20-2024 17:14-0400 Systolic blood pressure 104 mm[Hg] Geri Marker DO Work Phone: [facility] 09-23-2024 11:54-0500 Blood Pressure Location Tali Bonillamaryanner [facility] 09-23-2024 11:54-0500 Body temperature 98.24 [degF] Tali Bordner [facility] 09-23-2024 11:54-0500 Diastolic blood pressure 76 mm[Hg] Tali Bordner [facility] 09-23-2024 11:54-0500 Heart rate 69 /min Tali Bordner [facility] 03-04-2025 11:54-0500 Respiratory rate 18 /min Tali Zarate [facility] 09-23-2024 11:54-0500 SaO2% (BldA) [Mass fraction] 99 % Tali Zarate [facility] 09-23-2024 11:54-0500 Systolic blood pressure 122 mm[Hg] Tali Zarate [facility] 06-25-2024 07:39-0500 Body temperature 99.1 [degF] Leatha Samayoa MD Work Phone: [facility] [employer] 06-25-2024 07:39-0500 Diastolic blood pressure 64 mm[Hg] Leatha Samayoa MD Work Phone: [facility] [employer] 06-25-2024 07:39-0500 Heart rate 90 /min Leatha Samayoa MD Work Phone: [facility] 06-25-2024 07:39-0500 Respiratory rate 16 /min Leatha Samayoa MD Work Phone: [facility] [employer] 06-25-2024 07:39-0500 SaO2% (BldA) [Mass fraction] 100 % Leatha Samayoa MD Work Phone: [facility] 06-25-2024 07:39-0500 Systolic blood pressure 112 mm[Hg] Leatha Samayoa MD Work Phone: [facility] [employer] 06-22-2024 18:49-0500 Body height 165.1 cm Leatha Samayoa MD Work Phone: [facility] [employer] 06-22-2024 18:49-0500 Body mass index (BMI) [Ratio] 23.8 kg/m2 Leatha Samayoa MD Work Phone: [facility] [employer] 06-22-2024 18:49-0500 Body weight 64.86 kg Leatha Samayoa MD Work Phone: [facility] [employer] 06-22-2024 16:45-0500 Diastolic blood pressure 64 mm[Hg] Anika Bob [facility] 06-22-2024 16:45-0500 Heart rate 124 /min Anika Bob [facility] 06-22-2024 16:45-0500 Hourly Rounding Anika Bob [facility] Comment on above: Result Comment: PT D/C TO [facility] AT THIS TIME, PT ON AMBULANCE BED WITH [facility] FOR DEPARTURE 06-22-2024 16:45-0500 Mean blood pressure 79 mm[Hg] Anika Bob [facility] 06-22-2024 16:45-0500 SaO2% (BldA) [Mass fraction] 99 % Anika Bob [facility] 06-22-2024 16:45-0500 Systolic blood pressure 110 mm[Hg] Anika Bob [facility] 06-22-2024 16:30-0500 Diastolic blood pressure 68 mm[Hg] Anika Bob [facility] 06-22-2024 16:30-0500 Heart rate 104 /min Anika Bob [facility] 06-22-2024 16:30-0500 Mean blood pressure 80 mm[Hg] Anika Bob [facility] 06-22-2024 16:30-0500 SaO2% (BldA) [Mass fraction] 99 % Anika Bob [facility] 06-22-2024 16:30-0500 Systolic blood pressure 105 mm[Hg] Anika Jordanten [facility] 06-22-2024 16:15-0500 Diastolic blood pressure 68 mm[Hg] Anika Jordanten [facility] 06-22-2024 16:15-0500 Heart rate 101 /min Anika Bob [facility] 06-22-2024 16:15-0500 Hourly Rounding Anika Bob [facility] 06-22-2024 16:15-0500 Mean blood pressure 82 mm[Hg] Anika Bob [facility] 06-22-2024 16:15-0500 SaO2% (BldA) [Mass fraction] 98 % Anika Bob [facility] 06-22-2024 16:15-0500 Systolic blood pressure 109 mm[Hg] Anika Bob [facility] 06-22-2024 15:45-0500 Blood Pressure Location Anika Bob [facility] 06-22-2024 15:45-0500 Hourly Rounding Anika Bob [facility] 06-22-2024 15:35-0500 Blood Pressure Location Anika Bob [facility] 06-22-2024 15:25-0500 Blood Pressure Location Anika Bob [facility] 06-22-2024 13:45-0500 Body temperature 98.24 [degF] Anika Bob [facility] 06-22-2024 13:45-0500 Respiratory rate 18 /min Anika Bob [facility] 06-22-2024 10:00-0500 Body temperature 98.06 [degF] Anika Bob [facility] 06-21-2024 21:02-0500 Hourly Rounding Anika Bob [facility] Comment on above: Result Comment: Pt d/c'd to private vehi franc with all belongings. Denies pain and needs. 06-21-2024 20:45-0500 Hourly Rounding Anika Bob [facility] Comment on above: Result Comment: D/c instructions explain ed to pt and s.o. Both verbalize understanding and pt signs. IV d/c'd. Pt tolerated without complaint. Pt up to bathroom to change. No c/o pain. Denies needs. 06-21-2024 20:30-0500 Hourly Rounding Anika Bob [facility] Comment on above: Result Comment: Pt resting in bed. Denie s pain and needs. Call light in reach. Will continue to monitor. 06-21-2024 19:15-0500 Blood Pressure Location Anika Bob [facility] 06-21-2024 19:15-0500 Body temperature 98.06 [degF] Anika Bob [facility] 06-21-2024 19:15-0500 Diastolic blood pressure 66 mm[Hg] Anika Bob [facility] 06-21-2024 19:15-0500 Heart rate 110 /min Anika Bob [facility] 06-21-2024 19:15-0500 Mean blood pressure 85 mm[Hg] Anika Bob [facility] 06-21-2024 19:15-0500 Respiratory rate 18 /min Anika Bob [facility] 06-21-2024 19:15-0500 Systolic blood pressure 123 mm[Hg] Anika Bob [facility] 06-21-2024 17:00-0500 Body temperature 97.88 [degF] Anika Bob [facility] 06-21-2024 17:00-0500 Diastolic blood pressure 63 mm[Hg] Anika Bob [facility] 06-21-2024 17:00-0500 Heart rate 111 /min Anika Bob [facility] 06-21-2024 17:00-0500 Mean blood pressure 81 mm[Hg] Anika Bob [facility] 06-21-2024 17:00-0500 Systolic blood pressure 117 mm[Hg] Anika Bob [facility] 06-05-2024 14:15-0500 Hourly Rounding Anika Bob [facility] Comment on above: Result Comment: escorted off unit via wh eelchair by OB staff to private car 06-05-2024 07:30-0500 Blood Pressure Location Anika Bob [facility] 06-05-2024 07:30-0500 Body temperature 98.06 [degF] Anika Bob [facility] 06-05-2024 07:30-0500 Diastolic blood pressure 66 mm[Hg] Anika Bob [facility] 06-05-2024 07:30-0500 Heart rate 112 /min Anika Bob [facility] 06-05-2024 07:30-0500 Mean blood pressure 85 mm[Hg] Anika Bob [facility] 06-05-2024 07:30-0500 Respiratory rate 18 /min Anika Bob [facility] 06-05-2024 07:30-0500 Systolic blood pressure 122 mm[Hg] Anika Bob [facility] 06-05-2024 06:15-0500 Hourly Rounding Anika Bob [facility] Comment on above: Result Comment: appears sleeping soundly , left undisturbed 06-05-2024 04:30-0500 Hourly Rounding Anika Bob [facility] Comment on above: Result Comment: awakens to rounding. ass issted up to BR. denies further needs/pain 06-04-2024 22:15-0500 Blood Pressure Location Anika Bob [facility] 06-04-2024 22:15-0500 Diastolic blood pressure 65 mm[Hg] Anika Bob [facility] 06-04-2024 22:15-0500 Heart rate 79 /min Anika Bob [facility] 06-04-2024 22:15-0500 Mean blood pressure 84 mm[Hg] Anika Bob [facility] 06-04-2024 22:15-0500 Respiratory rate 18 /min Anika Bob [facility] 06-04-2024 22:15-0500 Systolic blood pressure 122 mm[Hg] Anika Bob [facility] 06-04-2024 22:00-0500 Body temperature 98.24 [degF] Anika Bob [facility] 06-04-2024 15:54-0500 Diastolic blood pressure 56 mm[Hg] Anika Bob [facility] 06-04-2024 15:54-0500 Heart rate 113 /min Anika Bob [facility] 06-04-2024 15:54-0500 Mean blood pressure 84 mm[Hg] Anika Bob [facility] 06-04-2024 15:54-0500 Respiratory rate 18 /min Anika Bob [facility] 06-04-2024 15:54-0500 Systolic blood pressure 141 mm[Hg] Anika Bob [facility] 06-04-2024 07:20-0500 Body temperature 97.7 [degF] Anika Bob [facility] 06-04-2024 07:20-0500 Heart rate 130 /min Anika Bob [facility] 06-04-2024 07:20-0500 SaO2% (BldA) [Mass fraction] 99 % Anika Bob [facility] 06-04-2024 05:49-0500 Blood Pressure Location Anika Bob [facility] 05-06-2024 14:58-0400 Body height 165.1 cm Jordyn Thakur MOBILE CRANE OPERATOR-GRAIN BLENDER Work Phone: [facility] 05-06-2024 14:58-0400 Body mass index (BMI) [Ratio] 19.8 kg/m2 Jordyn Thakur MOBILE CRANE OPERATOR-GRAIN BLENDER Work Phone: [facility] 05-06-2024 14:58-0400 Body weight 53.98 kg Jordyn Thakur MOBILE CRANE OPERATOR-GRAIN BLENDER Work Phone: [facility] 08-21-2023 14:36-0500 Body height 165.1 cm Anika Richardson MD Work Phone: [facility] 08-21-2023 14:36-0500 Body mass index (BMI) [Ratio] 19.87 kg/m2 Anika Richardson MD Work Phone: [facility] 08-21-2023 14:36-0500 Body weight 54.16 kg Anika Richardson MD Work Phone: [facility] 08-21-2023 14:36-0500 Diastolic blood pressure 70 mm[Hg] Anika Richardson MD Work Phone: [facility] 08-21-2023 14:36-0500 Systolic blood pressure 116 mm[Hg] Anika Richardson MD Work Phone: [facility] 06-19-2023 17:27-0500 SaO2% (BldA) [Mass fraction] 98 % Jordyn Thakur MOBILE CRANE OPERATOR-GRAIN BLENDER Work Phone: [facility] 06-19-2023 17:22-0500 Body height 165.1 cm Jordyn Thakur MOBILE CRANE OPERATOR-GRAIN BLENDER Work Phone: [facility] 06-19-2023 17:22-0500 Body mass index (BMI) [Ratio] 19.64 kg/m2 Jordyn Thakur MOBILE CRANE OPERATOR-GRAIN BLENDER Work Phone: [facility] 06-19-2023 17:22-0500 Body temperature 98.2 [degF] Jordyn Thakur MOBILE CRANE OPERATOR-GRAIN BLENDER Work Phone: [facility] 06-19-2023 17:22-0500 Body weight 53.52 kg Jordyn Thakur MOBILE CRANE OPERATOR-GRAIN BLENDER Work Phone: [facility] 06-19-2023 17:22-0500 Diastolic blood pressure 81 mm[Hg] Jordyn Thakur MOBILE CRANE OPERATOR-GRAIN BLENDER Work Phone: [facility] 06-19-2023 17:22-0500 Heart rate 98 /min Jordyn Thakur MOBILE CRANE OPERATOR-GRAIN BLENDER Work Phone: [facility] 06-19-2023 17:22-0500 Respiratory rate 16 /min Jordyn Thakur MOBILE CRANE OPERATOR-GRAIN BLENDER Work Phone: [facility] 06-19-2023 17:22-0500 Systolic blood pressure 124 mm[Hg] Jordyn Thakur MOBILE CRANE OPERATOR-GRAIN BLENDER Work Phone: [facility] 05-18-2023 10:33-0400 Body height 165.1 cm Jordyn Thakur MOBILE CRANE OPERATOR-GRAIN BLENDER Work Phone: [facility] 05-18-2023 10:33-0400 Body mass index (BMI) [Ratio] 19.64 kg/m2 Jordyn Thakur MOBILE CRANE OPERATOR-GRAIN BLENDER Work Phone: [facility] 05-18-2023 10:33-0400 Body weight 53.52 kg Jordyn Thakur MOBILE CRANE OPERATOR-GRAIN BLENDER Work Phone: [facility] 05-18-2023 10:33-0400 Diastolic blood pressure 74 mm[Hg] Jordyn Thakur MOBILE CRANE OPERATOR-GRAIN BLENDER Work Phone: [facility] 05-18-2023 10:33-0400 Heart rate 98 /min Jordyn Thakur MOBILE CRANE OPERATOR-GRAIN BLENDER Work Phone: [facility] 05-18-2023 10:33-0400 SaO2% (BldA) [Mass fraction] 99 % Jordyn Thakur MOBILE CRANE OPERATOR-GRAIN BLENDER Work Phone: [facility] 05-18-2023 10:33-0400 Systolic blood pressure 107 mm[Hg] Jordyn Gonzalezley MOBILE CRANE OPERATOR-GRAIN BLENDER Work Phone: [facility] 04-23-2023 09:48-0400 Body height 165.1 cm Kemi Echevarria MD Work Phone: [facility] 04-23-2023 09:48-0400 Body mass index (BMI) [Ratio] 19.64 kg/m2 Kemi Echevarria MD Work Phone: [facility] 04-23-2023 09:48-0400 Body weight 53.52 kg Kemi Echevarria MD Work Phone: [facility] 04-23-2023 09:48-0400 Diastolic blood pressure 60 mm[Hg] Kemi Echevarria MD Work Phone: [facility] 04-23-2023 09:48-0400 Heart rate 125 /min Kemi Echevarria MD Work Phone: [facility] 04-23-2023 09:48-0400 SaO2% (BldA) [Mass fraction] 99 % Kemi Echevarria MD Work Phone: [facility] 04-23-2023 09:48-0400 Systolic blood pressure 120 mm[Hg] Kemi Echevarria MD Work Phone: [facility] 04-13-2023 17:00-0400 Diastolic blood pressure 88 mm[Hg] Page Josy Other Phone: [facility] 04-13-2023 17:00-0400 Heart rate 83 /min Page Josy Other Phone: [facility] 04-13-2023 17:00-0400 Respiratory rate 18 /min Page Josy Other Phone: [facility] 04-13-2023 17:00-0400 SaO2% (BldA) [Mass fraction] 100 % Page Josy Other Phone: [facility] 04-13-2023 17:00-0400 Systolic blood pressure 128 mm[Hg] Page Josy Other Phone: [facility] 04-13-2023 15:13-0400 Body temperature 98.06 [degF] Page Josy Other Phone: [facility] 04-13-2023 15:13-0400 Body weight 55 kg Page Josy Other Phone: [facility] 04-11-2023 10:00-0400 Body temperature 97.88 [degF] Page Josy Other Phone: [facility] 04-11-2023 10:00-0400 Diastolic blood pressure 84 mm[Hg] Page Josy Other Phone: [facility] 04-11-2023 10:00-0400 Heart rate 81 /min Page Josy Other Phone: [facility] 04-11-2023 10:00-0400 Respiratory rate 17 /min Page Josy Other Phone: [facility] 04-11-2023 10:00-0400 SaO2% (BldA) [Mass fraction] 99 % Page Josy Other Phone: [facility] 04-11-2023 10:00-0400 Systolic blood pressure 122 mm[Hg] Page Josy Other Phone: [facility] 11-06-2022 20:48-0400 Body height 165.1 cm Page Josy Other Phone: [facility] 11-06-2022 20:48-0400 Body temperature 97.7 [degF] Page Josy Other Phone: [facility] 11-06-2022 20:48-0400 Body weight 54.5 kg Page Josy Other Phone: [facility] 11-06-2022 20:48-0400 Diastolic blood pressure 79 mm[Hg] Page Josy Other Phone: [facility] 11-06-2022 20:48-0400 Heart rate 92 /min Page Josy Other Phone: [facility] 11-06-2022 20:48-0400 Respiratory rate 18 /min Page Josy Other Phone: [facility] 11-06-2022 20:48-0400 SaO2% (BldA) [Mass fraction] 97 % Page Josy Other Phone: [facility] 11-06-2022 20:48-0400 Systolic blood pressure 133 mm[Hg] Page Josy Other Phone: [facility] 08-24-2022 18:30-0500 Diastolic blood pressure 105 mm[Hg] Page Josy Other Phone: [facility] 08-24-2022 18:30-0500 Heart rate 88 /min Page Josy Other Phone: [facility] 08-24-2022 18:30-0500 Respiratory rate 15 /min Page Adan Other Phone: [facility] 08-24-2022 18:30-0500 SaO2% (BldA) [Mass fraction] 100 % Page Lopezrdle Other Phone: [facility] 08-24-2022 18:30-0500 Systolic blood pressure 129 mm[Hg] Page Josy Other Phone: [facility] 08-24-2022 16:15-0500 Body height 165.1 cm Page Lopezrdle Other Phone: [facility] 08-24-2022 16:15-0500 Body temperature 97.7 [degF] Page Lopezrdle Other Phone: [facility] 08-24-2022 16:15-0500 Body weight 54.5 kg Page Lopezrdle Other Phone: [facility] 08-03-2022 11:02-0500 Body height 165.1 cm Jordyn Thakur Work Phone: [facility] Work Phone: 08-03-2022 11:02-0500 Body mass index (BMI) [Ratio] 21.2 kg/m2 Jordyn Thakur Work Phone: [facility] Work Phone: 08-03-2022 11:02-0500 Body surface area Derived from formula 1.63 m2 Jordyn Thakur Work Phone: [facility] Work Phone: 08-03-2022 11:02-0500 Body weight 57.78 kg Jordyn Thakur Work Phone: [facility] Work Phone: 08-03-2022 11:02-0500 Diastolic blood pressure 74 mm[Hg] Jordyn Gonzalezley Work Phone: [facility] Work Phone: 08-03-2022 11:02-0500 Heart rate 88 /min Jordyn Jason Thakur Work Phone: [facility] Work Phone: 08-03-2022 11:02-0500 Systolic blood pressure 116 mm[Hg] Jordyn Gomez Thakur Work Phone: [facility] Work Phone: 06-14-2022 15:28-0500 Body height 165.1 cm Jordyn Jason Thakur Work Phone: [facility] Work Phone: 06-14-2022 15:28-0500 Body mass index (BMI) [Ratio] 19.64 kg/m2 Jordyn Gomez Thakur Work Phone: [facility] Work Phone: 06-14-2022 15:28-0500 Body surface area Derived from formula 1.58 m2 Jordyn Jason Simon Work Phone: [facility] Work Phone: 06-14-2022 15:28-0500 Body weight 53.52 kg Jordyn Gomez Simon Work Phone: [facility] Work Phone: 06-14-2022 15:28-0500 Diastolic blood pressure [...] 19.64 kg/m2 Jordyn Jason Ramirez Work Phone: [facility] Work Phone: 06-06-2022 14:14-0500 Body surface area Derived from formula 1.58 m2 Jordyn Jason Ramirez Work Phone: [facility] Work Phone: 06-06-2022 14:14-0500 Body weight 53.52 kg Jordyn Ramirez Work Phone: [facility] Work Phone: 06-06-2022 14:14-0500 Diastolic blood pressure 70 mm[Hg] Jordyn Ramirez Work Phone: [facility] Work Phone: 06-06-2022 14:14-0500 Heart rate 108 /min Jordyn Ramirez Work Phone: [facility] Work Phone: 06-06-2022 14:14-0500 SaO2% (BldA) [Mass fraction] 99 % Jordyn Ramirez Work Phone: [facility] Work Phone: 06-06-2022 14:14-0500 Systolic blood pressure 112 mm[Hg] Jordyn Gomez Ramirez Work Phone: [facility] Work Phone: 05-02-2022 08:59-0400 Body height 165.1 cm Jordyn Gomez Ramirez Work Phone: [facility] Work Phone: 05-02-2022 08:59-0400 Body mass index (BMI) [Ratio] 17.81 kg/m2 Jordyn Ramirez Work Phone: [facility] Work Phone: 05-02-2022 08:59-0400 Body surface area Derived from formula 1.52 m2 Jordyn D Ramirez Work Phone: [facility] Work Phone: 05-02-2022 08:59-0400 Body weight 48.53 kg Jordyn D Ramirez Work Phone: [facility] Work Phone: 05-02-2022 08:59-0400 Diastolic blood pressure 68 mm[Hg] Jordyn D Ramirez Work Phone: [facility] Work Phone: 05-02-2022 08:59-0400 Heart rate 118 /min Jordyn D Ramirez Work Phone: [facility] Work Phone: 05-02-2022 08:59-0400 Systolic blood pressure 102 mm[Hg] Jordyn D Ramirez Work Phone: [facility] Work Phone: 03-03-2022 14:28-0400 Body height 165.1 cm Jordyn D Ramirez Work Phone: [facility] Work Phone: 03-03-2022 14:28-0400 Body mass index (BMI) [Ratio] 18.47 kg/m2 Jordyn D Ramirez Work Phone: [facility] [...] mm[Hg] Jordyn D Ramirez Work Phone: [facility] Work Phone: 03-03-2022 14:28-0400 Heart rate 84 /min Jordyn D Ramirez Work Phone: [facility] Work Phone: 03-03-2022 14:28-0400 Systolic blood pressure 110 mm[Hg] Jordyn D Ramirez Work Phone: [facility] Work Phone: 01-04-2021 13:50-0400 Diastolic blood pressure 70 mm[Hg] Page Josy Other Phone: [facility] 01-04-2021 13:50-0400 Diastolic blood pressure 73 mm[Hg] Page Josy Other Phone: [facility] 01-04-2021 13:50-0400 Diastolic blood pressure 77 mm[Hg] Page Josy Other Phone: [facility] 01-04-2021 13:50-0400 Heart rate 79 /min Page Josy Other Phone: [facility] 01-04-2021 13:50-0400 Heart rate 77 /min Page Jsoy Other Phone: [facility] 01-04-2021 13:50-0400 Heart rate 89 /min Page Josy Other Phone: [facility] 01-04-2021 13:50-0400 Systolic blood pressure 104 mm[Hg] Page Josy Other Phone: [facility] 01-04-2021 13:50-0400 Systolic blood pressure 113 mm[Hg] Page Josy Other Phone: [facility] 01-04-2021 13:38-0400 Respiratory rate 20 /min Page Lopezrdle Other Phone: [facility] 01-04-2021 11:45-0400 Body height 165.1 cm Page Adan Other Phone: [facility] 01-04-2021 11:45-0400 Body temperature 98.06 [degF] Page Tomlinle Other Phone: [facility] 01-04-2021 11:45-0400 Body weight 60.5 kg Page Tomlinle Other Phone: [facility] 01-04-2021 11:45-0400 SaO2% (BldA) [Mass fraction] 98 % Page Tomlinle Other Phone: [facility] Encounters Encounter Date Encounter Type Care Provider Facility Start: 10-20-2024 End: 10-20-2024 Departed Referred Geri Marker DO Work Phone: [facility] [place] Work Phone: Start: 10-20-2024 End: 10-20-2024 ambulatory Lola George [facility] Work Phone: Start: 10-20-2024 End: 10-20-2024 Patient encounter procedure Geri Marker DO Work Phone: [facility] [place] Work Phone: Start: 10-19-2024 End: 10-19-2024 ambulatory Geri Shah Marker [facility] Work Phone: Start: 10-19-2024 End: 10-19-2024 Departed Referred Geri Marker DO Work Phone: [facility] Start: 10-19-2024 Registered Referred Geri Peck rker DO Work Phone: [facility] Start: 10-10-2024 End: 10-10-2024 ambulatory Minesh GuptaGhanshyam Justo Facility:[facility] Start: 09-23-2024 End: 09-23-2024 ambulatory Tali Alvarado Porfirioshabnam Facility:[facility] Start: 09-23-2024 End: 09-23-2024 Patient encounter procedure Tali C Porfirioshabnam [facility] Start: 06-22-2024 End: 06-25-2024 Evaluation and management of inpatient Leatha Samayoa MD Work Phone: [facility] Start: 06-22-2024 End: 06-22-2024 ambulatory Anika Bob Facility:[facility] Start: 06-22-2024 End: 06-22-2024 Patient encounter procedure Anika Bob [facility] Start: 06-21-2024 End: 06-21-2024 ambulatory Anika Bob Facility:[facility] Start: 06-21-2024 End: 06-21-2024 Patient encounter procedure Anika Bob [facility] Start: 06-18-2024 End: 06-18-2024 ambulatory Anika Bob Facility:[facility] Start: 06-18-2024 End: 06-18-2024 Patient encounter procedure Anika Bob [facility] Start: 06-13-2024 End: 06-13-2024 ambulatory Anika Bob Facility:[facility] Start: 06-13-2024 End: 06-13-2024 Patient encounter procedure Anika Bob [facility] Start: 06-03-2024 End: 06-05-2024 ambulatory Anika Bob Facility:[facility] Start: 06-03-2024 End: 06-05-2024 Observation Anika Bob [facility] Start: 05-06-2024 End: 05-06-2024 Office outpatient visit 25 minutes Jordyn Thakur MOBILE CRANE OPERATOR-GRAIN BLENDER Work Phone: [facility] Comment on above: Sore throat (Primary Dx) Start: 05-06-2024 End: 05-06-2024 ambulatory [facility] Start: 02-04-2024 End: 02-04-2024 ambulatory Anika Gomez Paulino Facility:[facility] Start: 02-04-2024 End: 02-04-2024 Lab Drop off Anika Jason Bob [facility] Start: 01-09-2024 End: 01-09-2024 ambulatory Anika Bob Facility:[facility] Start: 01-09-2024 End: 01-09-2024 Patient encounter procedure Anika Jason Bob [facility] Start: 10-10-2023 End: 10-10-2023 Office outpatient visit 15 minutes Jordyn Thakur MOBILE CRANE OPERATOR-GRAIN BLENDER Work Phone: [facility] Comment on above: Generalized anxiety disorder with panic attacks Start: 10-10-2023 End: 10-10-2023 ambulatory [facility] Start: 09-22-2023 End: 09-22-2023 ambulatory Anika Gomez Paulino Facility:[facility] Start: 09-22-2023 End: 09-22-2023 Patient encounter procedure Anika Gomez Paulino [facility] Start: 09-19-2023 End: 09-19-2023 Office outpatient visit 25 minutes Jordyn Thakur MOBILE CRANE OPERATOR-GRAIN BLENDER Work Phone: [facility] Comment on above: Nausea (Primary Dx); Nasal congestion; Acute non-recurrent sinusitis, unspecified location Start: 09-19-2023 End: 09-19-2023 ambulatory [facility] Start: 09-12-2023 End: 09-12-2023 Office outpatient visit 25 minutes Jordyn Jason Thakur MOBILE CRANE OPERATOR-GRAIN BLENDER Work Phone: [facility] Comment on above: Generalized anxiety disorder with panic attacks (Primary Dx) Start: 09-12-2023 End: 09-12-2023 ambulatory [facility] Start: 08-27-2023 End: 08-28-2023 ambulatory [facility] Start: 08-21-2023 End: 08-21-2023 Office outpatient new 30 minutes Anika Richadrson MD Work Phone: [facility] Office Building Comment on above: Family planning coun seling (Primary Dx) Start: 08-21-2023 End: 08-21-2023 ambulatory ANIKA [facility] Ambulatory Start: 07-13-2023 End: 07-13-2023 ambulatory [facility] Start: 06-19-2023 End: 06-19-2023 Emergency department patient visit [facility] Start: 06-19-2023 End: 06-19-2023 Emergency department patient visit Jordyn Thakur MOBILE CRANE OPERATOR-GRAIN BLENDER Work Phone: [facility] Comment on above: Urinary tract infect ion without hematuria, site unspecified (Primary Dx) Start: 05-18-2023 End: 05-18-2023 Office outpatient visit 25 minutes Jordyn Jason Thakur MOBILE CRANE OPERATOR-GRAIN BLENDER Work Phone: [facility] Comment on above: Urinary frequency (P rimary Dx); Urinary tract infection with hematuria, site unspecified; Generalized anxiety disorder with panic attacks; Gastroesophageal reflux disease without esophagitis Start: 05-18-2023 End: 05-18-2023 ambulatory [facility] Start: 04-23-2023 End: 04-23-2023 Office outpatient visit 25 minutes Kemi Echevarria MD Work Phone: [facility] Comment on above: H/O urinary tract in fection (Primary Dx); Generalized anxiety disorder with panic attacks Start: 04-13-2023 End: 04-13-2023 Emergency department patient visit Chris Blue [facility] 14 Start: 04-09-2023 End: 04-11-2023 ambulatory Ms. Jordyn Walker Simon Facility:[id number] Start: 04-09-2023 End: 04-11-2023 Evaluation and management of inpatient Bautista Villanueva [facility] [address] 01 Start: 03-27-2023 End: 03-27-2023 Emergency department patient visit JORDYN ARIE RAMIREZ [facility] Start: 11-06-2022 End: 11-06-2022 Emergency department patient visit Alie Flor [facility] Emergency 11 Start: 10-20-2022 End: 10-20-2022 Office outpatient visit 15 minutes Jordyn Thakur APRN-[facility] Work Phone: [facility] Comment on above: Vaginal yeast infect ion (Primary Dx) Start: 10-03-2022 End: 10-03-2022 Office outpatient visit 15 minutes Dominick Lewis MD Work Phone: [facility] Comment on above: Pharyngitis, unspeci fied etiology (Primary Dx) Start: 10-02-2022 End: 10-02-2022 Emergency department patient visit JORDYN RAMIREZ [facility] Start: 08-31-2022 ambulatory GRAIN BLENDER JORDYN Sue acility:[id number] Start: 08-24-2022 End: 08-24-2022 Emergency department patient visit Tyrell Pelaez [facility] Start: 08-03-2022 Office outpatient vi sit 25 minutes Jordyn Thakur Work Phone: [facility] Work Phone: Start: 08-03-2022 ambulatory GRAIN BLENDER JORDYN Sue acility:[id number] Start: 06-14-2022 Office outpatient vi sit 15 minutes Jordyn Thakur Work Phone: [facility] Work Phone: Start: 06-14-2022 ambulatory GRAIN BLENDER JORDYN Sue acility:[id number] Start: 06-07-2022 End: 06-11-2022 ambulatory JOSELIN RODRIGUES [facility] Ambulatory Start: 06-06-2022 ambulatory GRAIN BLENDER JORDYN Sue acility:[id number] Start: 06-06-2022 Office outpatient vi sit 10 minutes Jordyn Ramirez Work Phone: [facility] Work Phone: Start: 05-23-[address] Kemi Paul ility:[id number] Start: 05-10-2022 End: 05-14-2022 ambulatory [facility] Start: 05-02-2022 Office outpatient vi sit 25 minutes Jordyn Ramirez Work Phone: [facility] Work Phone: Start: 05-02-2022 ambulatory GRAIN BLENDER JORDYN Sue acility:[id number] Start: 04-25-2022 End: 04-25-2022 ambulatory [facility] Start: 04-25-2022 End: 04-25-2022 Office outpatient new 20 minutes [facility] Work Phone: [facility] Comment on above: Closed nondisplaced fracture of distal phalanx of left middle finger, initial encounter (Primary Dx) Start: 04-24-2022 End: 04-24-2022 Emergency department patient visit STANLEY HOLLOWAYN QUILES [facility] Start: 03-15-2022 Chart Update Jordyn Ramirez Work Phone: [facility] Work Phone: Start: 03-03-2022 Office outpatient ne w 45 minutes Jordyn Ramirez Work Phone: [facility] Work Phone: Start: 01-04-2021 End: 01-04-2021 Emergency department patient visit Alie Rodriguez [facility] Emergency 13 Start: 04-01-2019 End: 04-01-2019 Emergency department patient visit DILIA Candy BURNS [facility] Start: 10-27-2018 End: 10-27-2018 Emergency department patient visit Page Adan Facility:[facility] Start: 04-01-2018 End: 04-02-2018 Emergency department patient visit Page Adan Facility:[facility] Start: 01-24-2018 End: 01-24-2018 Emergency department patient visit Page Adan Facility:[facility] Procedures Date Procedure Procedure Detail [...] specimen Performed By: #### L [id number] #### Typewriter Repairer: JORDYN DUFFY ([id number]) [facility] B[facility] [address] [place] [address] Start: 06-22-2024 ABO and Rh group [Ty [...] on above: 1st done given 06/03 @ 2156 Start: 02-04-2024 Blood count complete automated Historical [...] dip stick/tabl et reagent auto microscopy Bela REYNOSOC Work Phone: Start: 05-18-2023 Bacteria identified in Urine by Culture JORDYN THAKUR Start: 05-18-2023 POCT UA AUTOMATED MA NUALLY RESULTED JORDYN THAKUR Start: 05-18-2023 Urnls dip stick/tabl et rgnt auto w/o microscopy Jordyn Thakur MOBILE CRANE OPERATOR-GRAIN BLENDER Work Phone: Start: 04-14-2023 Lipid 1996 panel [...] for Adults (1 - 1-dose 75+ series) [facility] Start: 2050 Zoster Vaccines (1 of 2) Zoste r Vaccines (1 of 2) [facility] Start: 04-14-2028 Lipid panel Lipid Panel [facility] Start: 03-10-2027 Lipid panel Lipid Panel [facility] Start: 06-22-2025 Depression Screening Depression Scre ening [facility] Start: 10-20-2024 End: 10-20-2024 Urine culture [facility] Start: 10-20-2024 Bacteria identified in Urine by Culture Urine Culture [facility] Start: 10-19-2024 Urine culture [facility] Start: 10-19-2024 Bacteria identified in Urine by Culture Urine Culture [facility] Start: 04-11-2024 End: 04-11-2024 Patient encounter procedure 04/11/2024 4:20 PM EDT Office Visit [facility] Internal Medicine [address] [place] [phone] Jordyn Thakur, MOBILE CRANE OPERATOR-GRAIN BLENDER [address] [place] [address] [facility] Start: 03-31-2024 DTaP/Tdap/Td Vaccine s (7 - Td or Tdap) DTaP/Tdap/Td Vaccines (7 - Td or Tdap) [facility] Start: 03-31-2024 Tetanus vaccination Tetanus: Every 1 0yrs [facility] Start: 03-23-2024 COVID-19 Vaccine ( season) COVID-19 Vaccine ( season) [facility] Start: 03-23-2024 COVID-19 Vaccine ( season) COVID-19 Vaccine ( season) [facility] Start: 03-23-2024 Influenza vaccination Influenza Vacc ine (#1) [facility] Start: 01-20-2024 Influenza vaccination Influenza Vacc ine (#1) [facility] Comment on above: Postponed from 03/23 (Patient Refused) Start: 10-22-2023 End: 10-22-2023 Patient encounter procedure 10/22/2023 3:30 PM EDT Office Visit [facility] Medical Office Building [address] [place] [address] Anika Richardson MD [address] [facility] Medical [facility], [facility] [address] [place] [address] [facility] Medical Office Building Start: 10-17-2023 End: 10-17-2023 Patient encounter procedure 10/17/2023 1:00 PM EDT Office Visit [facility] Medical Office Building [address] [place] [phone] Cooper Hensley MD [address] [place] [id number] [facility] Medical Office Building Start: 10-10-2023 End: 10-10-2023 Telemedicine consultation with patient 10/10/2023 3:40 PM EDT Telemedicine [facility] Internal Medicine [address] [place] [phone] Jordyn Thakur, MOBILE CRANE OPERATOR-GRAIN BLENDER [address] [facility] [place], [place] [id number] [facility] Start: 08-27-2023 End: 08-21-2024 Progesterone [Mass/volume] in Serum or Plasma Progesterone Lab Routine Family planning counseling Expected: 08/27/2023 (Approximate), Expires: 08/21/2024 [facility] Service Area Work Phone: Comment on above: Expected: 08/27/2023 (Approximate), Expires: 08/21/2024 Start: 07-13-2023 End: 07-13-2023 Patient encounter procedure 07/13/2023 9:00 AM EST Office Visit [facility] Internal Medicine [address] [place] [address] Jordyn Thakur, MOBILE CRANE OPERATOR-GRAIN BLENDER [address] [place] [address] [facility] Start: 07-03-2023 End: 07-03-2023 Patient encounter procedure 07/03/2023 2:15 PM EST Office Visit [facility] Physician Kobe [address] [facility] [address] [place] [address] Lola Devine MD MPH [address] [facility], [facility] [address] [place], [place] [phone] [facility] Physician [facility] Start: 05-18-2023 End: 05-25-2023 Bacteria identified in Urine by Culture [facility] Service Area Work Phone: Comment on above: Expected: 05/18/2023 (Approximate), Expires: 05/25/2023 Start: 04-09-2023 End: 04-09-2024 oxyCODONE Immediate Release 5 mg Oral Tablet Every 4 Hours ; Tablet (OXYIR, ROXICODONE)DOSE = 5 mg Oral Every 4 Hours, PRN Pain - Severe (7-10) Start: 09-Apr-2023 End: 08-Apr-2024 Ordered: 09-Apr-2023 Delgado Nix [facility] Start: 04-09-2023 End: 04-09-2024 [facility] Start: 03-06-2023 FUV, Provider: Jordyn Ramirez, Status: Pen, Time: 2:40 PM FUV, Provider: Jordyn Ramirez, Status: Pen, Time: 2:40 PM [facility] Work Phone: Start: 03-06-2023 FUV, Provider: Jordyn Thakur, Status: Pen, Time: 2:40 PM FUV, Provider: Jordyn Thakur, Status: Pen, Time: 2:40 PM [facility] Work Phone: Start: 03-06-2023 Patient encounter procedure Outpatient [facility] Start: 06-Mar-2023 14:40 Jordyn Thakur Intent [facility] Start: 03-06-2023 End: 03-06-2023 Patient encounter procedure 03/06/2023 2:40 PM EDT Office Visit [facility] [address] [place] [phone] Jordyn Thakur D, MOBILE CRANE OPERATOR-GRAIN BLENDER [address] [place] [address] [facility] Start: 10-26-2022 Screening for Chlamy ankita trachomatis Chlamydia Screening [facility] Start: 09-14-2022 FUV, Provider: Jordyn Thakur, Status: Pen, Time: 2:20 PM FUV, Provider: Jordyn Thakur, Status: Pen, Time: 2:20 PM [facility] Work Phone: Start: 09-14-2022 Patient encounter procedure [facility] Start: 08-31-2022 Patient encounter procedure [facility] Start: 08-10-2022 NPV, Provider: Jocelyne Bae, Status: Pen, Time: 1:00 PM NPV, Provider: Jocelyne Bae, Status: Pen, Time: 1:00 PM [facility] Work Phone: Start: 05-23-2022 FUV, Provider: Kemi Echevarria, Status: Pen, Time: 2:00 PM FUV, Provider: Kemi Echevarria, Status: Pen, Time: 2:00 PM [facility] Internal Medicine Work Phone: Start: 05-10-2022 End: 05-10-2022 Patient encounter procedure 05/10/2022 Office Visit Sports Medicine Joselin Noyola, GRAIN BLENDER [address] [place] [address] [facility] Start: 03-31-2022 FUV, Provider: Jordyn Ramirez, Status: Pen, Time: 2:20 PM FUV, Provider: Jordyn Ramirez, Status: Pen, Time: 2:20 PM -[facility] Internal Medicine Work Phone: Start: 03-23-2022 Influenza vaccination [facility] Start: 2021 Screening for malign ant neoplasm of cervix [facility] Start: 12-14-2021 History and physical examination, annual for health maintenance Wellness Visit [facility] Start: 2018 COVID-19 Vaccine (#1) COVID-19 Vacci ne (#1) [facility] Start: 2018 Hepatitis C screening Hepatitis C Sc reening [facility] Start: 12-29-2015 HIV screening HIV Screening [facility] Start: 2012 Depression screening using PHQ-9 (Patient Health Questionnaire 9) score Depression Screening (PHQ-2/9) [facility] Start: 2006 Pneumococcal Vaccine : Pediatrics (0 to 5 Years) and At-Risk Patients (6 to 64 Years) (1 - PCV) Pneumococcal Vaccine: Pediatrics (0 to 5 Years) and At-Risk Patients (6 to 64 Years) (1 - PCV) [facility] Start: 2006 Pneumococcal Vaccine : Pediatrics (0 to 5 Years) and At-Risk Patients (6 to 64 Years) (1 of 2 - PCV) Pneumococcal Vaccine: Pediatrics (0 to 5 Years) and At-Risk Patients (6 to 64 Years) (1 of 2 - PCV) [facility] Start: 12-29-2003 Well Child Visit (WC V) - Annual Well Child Visit (WCV) - Annual [facility] Start: 06-29-2001 COVID-19 Vaccine (#1) COVID-19 Vacci ne (#1) [facility] Start: 2000 Hearing Screening (#1) Hearing Shima ladd (#1) [facility] Start: 2000 HIV screening HIV Screening [facility] Start: 2000 Screening for Chlamy ankita trachomatis Chlamydia and Gonorrhea Screening [facility] Start: 2000 Screening for malign ant neoplasm of cervix Pap Smear [facility] Start: 2000 Yearly Adult Physical Yearly Adult P hysical [facility] End: 06-19-2023 Bacteria identified in Urine by Culture [facility] Work Phone: Comment on above: Once (Lab) for 1 Occ urrences starting 06/19/2023 until 06/19/2023 End: 06-19-2023 Extra Urine Brody Tube [facility] Work Phone: Comment on above: Once for 1 Occurrenc es starting 06/19/2023 until 06/19/2023 Patient Education Urinary tract infections in adults Drug allergy [facility] Work Phone: End: 06-19-2023 Urinalysis complete W Reflex Culture panel - Urine [facility] Service Area Work Phone: Comment on above: Once (Lab) for 1 Occ urrences starting 06/19/2023 until 06/19/2023 Immunizations Immunization Date Immunization Notes Care Provider Radha mejia 04-11-2019 measles, mumps and rubella virus vaccine Jordyn Thakur Work Phone: [facility] Internal Medicine Work Phone: 04-11-2019 varicella virus vaccine Jordyn Thakur Work Phone: [facility] Internal Medicine Work Phone: 08-08-2018 meningococcal B vaccine, recombinant, OMV, adjuvanted Jordyn Thakur Work Phone: [facility] Internal Medicine Work Phone: 04-17-2018 hepatitis A vaccine, pediatric/adolescent dosage, 2 dose schedule Jordyn Thakur Work Phone: [facility] Medicine Work Phone: 04-17-2018 meningococcal B vaccine, recombinant, OMV, adjuvanted Jordyn Jason Thakur Work Phone: [facility] Medicine Work Phone: 04-02-2017 hepatitis A vaccine, pediatric/adolescent dosage, 2 dose schedule Jordyn Thakur Work Phone: [facility] Internal Medicine Work Phone: 04-02-2017 Human Papillomavirus 9-valent vaccine Jordyn Thakur Work Phone: [facility] Medicine Work Phone: 04-02-2017 meningococcal polysaccharide (groups A, C, Y and W-135) diphtheria toxoid conjugate vaccine (MCV4P) Jordyn Thakur Work Phone: [facility] Work Phone: 01-14-2015 HPV, unspecified formulation Jordyn Thakur Work Phone: [facility] Work Phone: 01-14-2015 varicella virus vaccine Jordyn Thakur Work Phone: [facility] Work Phone: 03-31-2014 meningococcal polysaccharide (groups A, C, Y and W-135) diphtheria toxoid conjugate vaccine (MCV4P) Jordyn Thakur Work Phone: [facility] Work Phone: 03-31-2014 tetanus toxoid, redu karina diphtheria toxoid, and acellular pertussis vaccine, adsorbed Jordyn Thakur Work Phone: [facility] Work Phone: 06-18-2009 novel [id number], live virus for nasal administration Jordyn Thakur Work Phone: [facility] Work Phone: 06-18-2009 influenza virus vaccine, unspecified formulation Dominick Lewis MD Work Phone: [facility] Work Phone: 04-12-2007 diphtheria, tetanus toxoids and acellular pertussis vaccine Jordyn Thakur Work Phone: [facility] Medicine Work Phone: 04-12-2007 measles, mumps and rubella virus vaccine Jordyn Thakur Work Phone: [facility] Medicine Work Phone: 04-12-2007 poliovirus vaccine, inactivated Jordyn Thakur Work Phone: [facility] Medicine Work Phone: 05-18-2003 pneumococcal conjuga te vaccine, 7 valent Jordyn Thakur Work Phone: [facility] Work Phone: 08-22-2002 diphtheria, tetanus toxoids and acellular pertussis vaccine, unspecified formulation Jordyn Thakur Work Phone: [facility] Medicine Work Phone: 12-23-2001 diphtheria, tetanus toxoids and acellular pertussis vaccine, unspecified formulation Jordyn Thakur Work Phone: [facility] Work Phone: 12-23-2001 haemophilus influenz ae type b vaccine, conjugate unspecified formulation Jordyn Thakur Work Phone: [facility] Work Phone: 12-23-2001 hepatitis B vaccine, pediatric or pediatric/adolescent dosage Jordyn Thakur Work Phone: [facility] Medicine Work Phone: 12-23-2001 measles, mumps and rubella virus vaccine Jordyn Thakur Work Phone: [facility] Medicine Work Phone: 12-23-2001 pneumococcal conjuga te vaccine, 7 valent Jordyn Thakur Work Phone: [facility] Medicine Work Phone: 12-23-2001 poliovirus vaccine, inactivated Jordyn Jason Simon Work Phone: [facility] Medicine Work Phone: 12-23-2001 varicella virus vaccine Jordyn Thakur Work Phone: [facility] Work Phone: 06-12-2001 diphtheria, tetanus toxoids and acellular pertussis vaccine, unspecified formulation Jordyn Jason Simon Work Phone: [facility] Medicine Work Phone: 06-12-2001 haemophilus influenz ae type b vaccine, conjugate unspecified formulation Jordyn Jason Simon Work Phone: [facility] Work Phone: 06-12-2001 hepatitis B vaccine, pediatric or pediatric/adolescent dosage Jordyn Gomez Thakur Work Phone: [facility] Work Phone: 06-12-2001 poliovirus vaccine, inactivated Jordyn Jason Simon Work Phone: [facility] Medicine Work Phone: 03-28-2001 diphtheria, tetanus toxoids and acellular pertussis vaccine, unspecified formulation Jordyn Jason Simon Work Phone: [facility] Work Phone: 03-28-2001 haemophilus influenz ae type b vaccine, conjugate unspecified formulation Jordyn Gomez Thakur Work Phone: [facility] Work Phone: 03-28-2001 hepatitis B vaccine, pediatric or pediatric/adolescent dosage Jordyn Jason Simon Work Phone: [facility] Medicine Work Phone: 03-28-2001 pneumococcal conjuga te vaccine, 7 valent Jordyn Thakur Work Phone: [facility] Work Phone: 03-28-2001 poliovirus vaccine, inactivated Jordyn Thakur Work Phone: [facility] Work Phone: NEGATED: Highlighted row has not occurred!06-25-2024 measles, mumps and rubella virus vaccine Leatha Samayoa MD Work Phone: [facility] Comment on above: Deferred: No longer needed NEGATED: Highlighted row has not occurred!06-24-2024 influenza, injectable, madin karan canine kidney, preservative free Leatha Samayoa MD Work Phone: [facility] Comment on above: Deferred: Patient Re fused NEGATED: Highlighted row has not occurred!06-24-2024 tetanus toxoid, reduced diphtheria toxoid, and acellular pertussis vaccine, adsorbed Leatha Samayoa MD Work Phone: [facility] Comment on above: Deferred: Patient Re fused NEGATED: Highlighted row has not occurred!06-23-2024 influenza, injectable, madin karan canine kidney, preservative free Leatha Samayoa MD Work Phone: [facility] Comment on above: Deferred: Patient Re fused Payers Date Payer Category Payer Private Health Insurance [id number] 2024 Self-pay 2024 Medicaid O [facility] MEDICAID M [id number] 2022 Private Health Insurance [id number] 2020 Medicaid [facility] MEDICAID COMMUNITY PLAN [id number] 2020-Present [phone] [address] [place] [address] [id number] 2019 Medicaid [id number] 2019 Medicaid [id number] 2018 Unknown 2000 Unknown [id number] 2.16.840.1.210775.3.579.2. 651 2000 Unknown [id number] 2.16.840.1.941461.3.579.2. 903 2000 Unknown [id number] 2.16.840.1.355574.3.579.2. 903 2000 Unknown [id number] 2.16.840.1.765501.3.579.2. 903 2000 Unknown [id number] 2.16.840.1.242329.3.579.2. 903 2000 Unknown [id number] 2.16.840.1.680044.3.579.2. 903 2000 Unknown [id number] 2.16.840.1.161839.3.579.2. 903 2000 Unknown [id number] 2.16.840.1.099489.3.579.2. 902 2000 Unknown [id number] 2.16.840.1.743580.3.579.2. 902 2000 Unknown [id number] 2.16.840.1.197669.3.579.2. 902 2000 Unknown [id number] 2.16.840.1.021028.3.579.2. 356 2000 Unknown [id number] 2.16.840.1.426316.3.579.2. 356 2000 Unknown [id number] 2.16.840.1.411465.3.579.2. 356 2000 Unknown [id number] 2.16.840.1.461985.3.579.2. 356 2000 Unknown [id number] 2.16.840.1.443710.3.579.2. 356 2000 Unknown [id number] 2.16.840.1.102952.3.579.2. 356 2000 Unknown [id number] 2.16.840.1.375282.3.579.2. 9 2000 Unknown [id number] 2.16.840.1.860071.3.579.2. 9 2000 Unknown [id number] 2.16.840.1.123579.3.579.2. 1068 2000 Unknown [id number] 2.16.840.1.111116.3.579.2. 1068 2000 Unknown [id number] 2.16.840.1.802019.3.579.2. 1244 2000 Unknown [id number] 2.16.840.1.690645.3.579.2. 1242 2000 Unknown [id number] 2.16.840.1.695859.3.579.2. 727 2000 Unknown [id number] 2.16.840.1.504759.3.579.2. 727 2000 Unknown [id number] 2.16.840.1.820903.3.579.2. 727 2000 Unknown [id number] 2.16.840.1.607148.3.579.2. 1243 2000 Unknown [id number] 2.16.840.1.347042.3.579.2. 1243 2000 Unknown [id number] 2.16.840.1.605858.3.579.2. 1243 2000 Unknown [id number] 2.16.840.1.559862.3.579.2. 1243 2000 Unknown [id number] 2.16.840.1.486365.3.579.2. 1244 2000 Unknown [id number] 2.16.840.1.941219.3.579.2. 4 2000 Unknown [id number] 2.16.840.1.515521.3.579.2. 1243 2000 Unknown [id number] 2.16.840.1.131202.3.579.2. 2000 Unknown [id number] 2.16.840.1.515712.3.579.2. 2000 Unknown [id number] 2.16.840.1.657336.3.579.2. 2000 Unknown [id number] 2.16.840.1.418081.3.579.2. 2000 Unknown [id number] 2.16840.1.655769.3.579.2. 2000 Unknown [id number] 2.16.840.1.756024.3.579.2. 2000 Unknown [id number] 2.16.840.1.379109.3.579.2. 2000 Unknown [id number] 2.16.840.1.689466.3.579.2. 2000 Unknown [id number] 2.16.840.1.190683.3.579.2. 2000 Unknown [id number] 2.16.840.1.862765.3.579.2. 2000 Unknown [id number] 2.16.840.1.583417.3.579.2. 72 1983 Unknown [id number] 2.16.840.1.806949.3.579.2. 1983 Unknown [id number] 2.16.840.1.263766.3.579.2. 717 1983 Unknown [id number] .16.840.1.150543.3.579.2. 717 Self-pay [id number] Unknown [id number] Unknown [id number] .16.840.1.460169.3.579.2. 531 Unknown [id number] 2.16.840.1.968973.3.579.2. 531 Social History Date Type Detail Facility [facility] Tobacco smoking consumption unknown [facility] Start: 10-03-2022 End: 06-22-2024 Nicotine dependence due to vaping tobacco product Nicotine dependence due to vaping tobacco product -[facility] Work Phone: Start: 2000 Sex Assigned At Not on file [facility] Start: 04-15-2022 End: 08-21-2023 Exposure to SARS-CoV-2 (event) Not sure [facility] Start: 10-03-2022 End: 09-23-2024 Tobacco smoking status NHIS Never smoked tobacco [facility] Work Phone: Start: 10-03-2022 End: 05-06-2024 Tobacco use and exposure Smokeless tobacco non-user [facility] Work Phone: Start: 10-03-2022 End: 10-20-2022 Alcohol intake Current drinker of alcohol (finding) [facility] Work Phone: Start: 10-03-2022 End: 06-22-2024 Tobacco use panel [facility] Work Phone: Start: 04-23-2023 Alcohol Comment RARE [facility] Work Phone: Start: 01-19-2021 Tobacco smoking status NHIS Smokes tobacco daily [facility] Start: 01-19-2021 End: 08-14-2023 History of tobacco use Cigarette Smoker [facility] Work Phone: History of tobacco use Pipe Smoker [facility] Work Phone: Start: 08-21-2023 End: 06-23-2024 Alcohol intake Ex-drinker (finding) [facility] Work Phone: Start: 08-21-2023 Tobacco Comment I vape. [facility] Work Phone: Start: 08-21-2023 Alcohol Comment I drink once every few momths [facility] Work Phone: Start: 09-09-2023 End: 05-06-2024 Exposure to SARS-CoV-2 (event) Unable to assess [facility] Work Phone: Tobacco smoking status No Smokin g Status Entered [facility] Start: 05-06-2024 Tobacco smoking status NHIS Ex-smoker [facility] Start: 01-19-2021 End: 08-14-2023 History of tobacco use Current smoker [facility] Work Phone: Tobacco Former vaping or e-cigarette use Smokeless Tobacco Use:. [facility] Start: 06-22-2024 Tobacco use and exposure Former smokeless tobacco user [facility] Has the [employer], or [employer] threatened to shut off services in your home in past 12Mo No [facility] (I/We) worried wheth er (my/our) food would run out before (I/we) got money to buy more. Never true [facility] In the past 12 month s, has lack of transportation kept you from medical appointments or from getting medications? No [facility] Start: 06-22-2024 End: 10-21-2024 Sex Female (finding) [facility] Start: 2000 Sex Assigned At Female [facility] Functional Status Date Assessment Result Facility 09-23-2024 Functional Status N/A [facility] 06-22-2024 Functional Status N/A [facility] 06-21-2024 Functional Status N/A [facility] 06-03-2024 Functional Status N/A [facility] Functional observable [facility] Mental Status Date Assessment Result Facility 04-11-2023 Cognitive functions 0239:[id number] [facility] Clinical Notes 03-03-2021 to 10-12-2024 Note - Jyoti Navarro, ROXI - 06/25/2024 12:00 PM ESTLactation Note - [...] to help relieve symptoms, such as: ??? Qktl-psi-qsnphio cold medicines. ??? Cough suppressants. Coughing is [...] other clear broths. General instructions ??? Take mnec-cqw-vzyprch and prescription medicines only as told by [...] and water are not available, use hand fitter armament. ??? Avoid touching your mouth, face, eyes, [...] stiff neck. ? (more content not included)... [facility] 09-23-2024 Hospital Discharge instructions Patient Education [...] the only treatment that you will need. Ylep-pez-yyfnlca medicines can relieve discomfort. If you have [...] instructions at home: Apply, take, or use aisu-czx-ftevxko and prescription medicines only as told by [...] spicy or salty foods. Use a mild, vjny-clp-fjiifyd mouth rinse as recommended by your health [...] up without treatment in about 1 week. Vuyy-pyo-lonxwde medicines can relieve discomfort. This information is not intended to replace advice given to you by your health care provider. Make sure you discuss any questions you have with your health care provider. Document Revised: 04/19/2022 Document Reviewed: 04/19/2022 [employer] Patient Education 2023 [employer]. [facility] 09-23-2024 Note Patient Education ENT [...] the only treatment that you will need. Vhpq-xvl-nomzlen medicines can relieve discomfort. If you have [...] at home: ??? Apply, take, or use kxon-vnd-ybrsraf and prescription medicines only as told by [...] or salty foods. ??? Use a mild, onym-uif-nzwnayy mouth rinse as recommended by your health [...] up without treatment in about 1 week. Almx-fgj-cxpoozy medicines can relieve discomfort. This information is not intended to replace advice given to you by your health care provider. Make sure you discuss any questions you have with your health care provider. Document Revised: 04/19/2022 Document Reviewed: 04/19/2022 [employer] Patient Education ? 2023 [employer]. [facility] 06-25-2024 Miscellaneous Notes In to follow [...] Date: 06/24/2024 Name: Luz Hinojosa : 2000 [facility] Patient Information Primary Caregiver: Self Accompanied by/Relationship: S/O;Family Marital Status: Support System: SO/Family Judaism/Cultural Factors: none Activities of Daily Living Communication: [...] place to sleep or slept in a halfway (including now)? No Transportation Needs Has the [...] Anxiety Post-operative Diagnosis: Live Born male Delivering Bi Consultant & Instructional Technology Coordinator(s): Dr. Ponce; Dr. Adams Information: Information for the patient's : Onesimo Hinojosa [[id number]] Information for the patient's : Onesimo Hinojosa [[id number]] Description: normal Meconium Noted: No Anesthesia: epidural anesthesia Complications: None Application and Delivery: Luz Hutchinson0000 at 29w5d admitted for threatened labor as a transfer from [place]. She progressed with cervical dilation despite tocolysis. [...] Quantitative Blood Loss: 50 mL Onesimo Hinojosa [[id number]] Labor Events labor?: Yes steroids: Full Course [...] of posterior arm: clavicular fracture: Zavanelli maneuver: [place] Delivery Details Forceps attempted?: No Vacuum extractor attempted?: No Forceps Details: Vacuum Details: Cord Vessels: 3 vessels Complications: None Delayed cord clamping?: Yes Placenta Date/time: 06/23/2024 7:57 PM Removal: Spontaneous Appearance: Intact Comment: to NICU Delivery (Maternal) Episiotomy: None Perineal lacerations: None Other lacerations: no non-perineal laceration Repair suture: None Vaginal Counts 4x4 [place] Instruments Lap Pads Sponges Initial counts Interim counts Final counts 17 2 Final count personnel: FLORES Final count verified by: VIRGINIA Accurate final count?: Yes Blood Loss Mother: Luz Hinojosa #[id number] Start of Mother's Information Delivery Blood Loss Intrapartum & : 06/23/24 0749 - 06/23/242132 Delivery Admission: 06/22/24 1832 - 06/23/242132 Intrapartum & Delivery Admission Quantitative Blood Loss (mL) Hospital Encounter 50 mL 50 mL Total 50 mL 50 mL End of Mother's Information Mother: Luz Hinojosa #[id number] Delivery Providers Delivering clinician: Jenny Ponce MD Provider Role Consulting Physician Malu Adams MD Delivery Assist Judie Ochoa, legal practice manager Nurse Moriah Oreilly, RN [place] Nurse Trudi Argueta APRN - GRAIN BLENDER Nurse Practitioner Luci Ramachandran, STRINGED INSTRUMENT REPAIRER Nurse Shavonne Meade, PHOTOVOLTAIC SOLAR CELL DESIGNER Respiratory Therapist Nurse Conveyor Weigher Operator Scrub Nurse Fab Alexis, STRINGED INSTRUMENT REPAIRER Nurse Emily Teresa MD [place] Assessment Living status: Living Scoring Ward: 0 [...] Skin Reason skin to skin not initiated: [place] Acuity Disposition [place] Handoff Immediately at : To warmer with [...] labor floor and patient may request epidural. DEPORTATION OFFICER updated and aware. Date: 06/23/2024 Name: Luz Hinojosa : 2000 [facility] Patient Information Primary Caregiver: Self Accompanied by/Relationship: S/O;Family Marital Status: Single Support System: SO/Family Judaism/Cultural Factors: none Activities of Daily Living Communication: [...] place to sleep or slept in a halfway (including now)? 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 Mom is pumping every 3 hours for 40-50cc EDITA. Mom has Spectra pump for home. Discharge today. [facility] 06-25-2024 Note Department of Obstet rics and Gynecology Delivery Discharge Summary Admission on 06/22/2024 6:32 PM Hospital course: Luz Hinojosa is a 23 y.o. at 29w4d who presented to Labor and Delivery for threatened labor as a trasnfer from [place]. She was noted to be 2/50/-3 at [...] Information for the patient's : Onesimo Hinojosa [[id number]] male 1335 g (2 lb 15.1 oz) Apgars: Information for the patient's : Onesimo Hinojosa [[id number]] : Infant: Boy, in NICU Blood Type/Rh: [...] Your Medications These medications were sent to [facility] [address] [place] [id number] Hours: Sunday to Sunday 10 am to 6 pm DSS 100 MG capsule ibuprofen 600 MG tablet norethindrone 0.35 MG tablet Activity: Activity as tolerated Diet: Regular diet Follow-up Appointments: - visit If a patient meets criteria for hypertension, make sure the following are done prior to discharge: [] Order a blood pressure kit through [facility] (or the patient's own pharmacy on the weekend) [] Order the blood pressure log through [facility] [] Place an office visit or telephone [...] her physician if any of these occur. [facility] 06-25-2024 Hospital course Narrative Images from the original note were not included. Department of Obstetrics and Gynecology Delivery Discharge Summary Admission on 06/22/2024 6:32 PM Hospital course: Luz Hinojosa is a 23 y.o. at 29w4d who presented to Labor and Delivery for threatened labor as a trasnfer from [employer]. She was noted to be 2/50/-3 at [...] Information for the patient's : Onesimo Hinojosa [[id number]] male 1335 g (2 lb 15.1 oz) Apgars: Information for the patient's : Onesimo Hinojosa [[id number]] : Infant: Boy, in NICU Blood Type/Rh: [...] Your Medications These medications were sent to [facility] [address] [place] [address] Hours: Sunday to Sunday 10 am to 6 pm DSS 100 MG capsule ibuprofen 600 MG tablet norethindrone 0.35 MG tablet Activity: Activity as tolerated Diet: Regular diet Follow-up Appointments: - visit If a patient meets criteria for hypertension, make sure the following are done prior to discharge: [] Order a blood pressure kit through [facility] (or the patient's own pharmacy on the weekend) [] Order the blood pressure log through [facility] [] Place an office visit or telephone [...] of these occur. documented in this encounter [facility] 06-25-2024 Hospital Discharge instructions Jenny Ponce MD - 06/25/2024 10:06 AM EST Images from the original note were not included. Thank you for allowing us to care of you at [facility]. This time can be one of [...] over the next few weeks. Bleeding may case picker and then decrease again around 7-10 [...] avoid constipation you may take a mild [id number] stool softener (such as colace) as recommended [...] call 911 immediately. documented in this encounter [facility] 06-25-2024 Note Discharge Summary SHORT-STAY/TRANSFER [...] Vitamins. Illnesses: History of decreased mood. Surgeries: [place] teeth pulled in 2017. FAMILY HISTORY: Noncontributory. [...] understands. Anika Bob M.D. ca Dictated: 06/22/2024 [id number] Transcribed: 06/22/2024 [facility] Comment on above: Result Comment: Elec tronically Signed By: Paulino CORRIGAN, Anika Gomze\.br\Date and Time Signed: 06/25/24 06:47 EST 06-25-2024 [...] there. Anika Bob M.D. ca Dictated: 06/20/2024 [id number] Transcribed: 06/22/2024 [facility] Comment on above: Result Comment: Elec tronically Signed By: Paulino CORRIGAN, Anika Gomez\.br\Date and Time Signed: 06/25/24 06:46 EST 06-25-2024 History of Present illness Narrative Images from the original note were not included. VAGINAL DELIVERY POST DAY # 2 Luz Asihsh, 23 y.o. This patient was seen & [...] office PP vs her primary OB in [place] and she will follow up in [place]. DC teaching done. Briefly discussed CL measurements and vaginal progesterone with the next . The total time spent on patient discharge today was 25 minutes. -10 minutes of the visit face to face patient care for counseling/coordination of care -15 minutes chart review and documentation Nutrition rescreen completed. Chart reviewed. Patient to be monitored and followed by the diet sound technician. MARRY Mathias Images from the original [...] indicated: Pt is doing well. Bboy in [facility]. AFVSS. TIME SPENT ON PATIENT ENCOUNTER TODAY: Chart review and preparation: 10 minutes. Rnut-ab-[id number], documentation, and care coordination: 15 minutes. --> TOTAL= 25 MINUTES Images from the original note were not included. Labor Progress Note Date: 06/23/2024 Time: 4:42 PM Subjective: Luz Hinojosa is a 23 y.o. female at 29w5d admitted for labor Complications: Anxiety SVE : /-[address] Tejada at 1540 GBS: []Pos []Neg [x]Unknown Cx:defer FHP: defer FHT: Cat I [place]: irritable Patient moved over to labor and delivery due to cervical change. Receiving epidural. Will be for repeat cervical exam following epidural process. Continuing magnesium sulfate for neuroprotection and penicillin for GBS prophylaxis done after epidural, unchanged at -2. Patient comfortable with epidural. Continue to monitor, CCM. Malena Winter DO 06/23/2024 4:58 PM SVE 10100. Membranes intact at this time. Will transport to OR at this time. Dr. Ponce updated and en route to hospital. Dr. Carrasco notified of patient for coverage in event of delivery prior to arrival. FHT Cat 1. DEPORTATION OFFICER notified. Moved to OR for delivery. Delivered. [...] contractions q1-7 on arrival with cervical exam 2/80/-3 - PCN started for GBS prophylaxis -Decision [...] for tocolysis, adjusted mag to 1g/hr for PLATE PRINTER, and started PCN G for GBS prophylaxis. [...] x 48hrs, mag x 12 hrs for PLATE PRINTER, and PCN G for GBS prophylaxis until [...] Alcohol use: Not Currently Drug use: Never NowPublic Intimate Partner Violence: Not At Risk (06/22/2024) [...] of care with Dr. Roca on-call for [facility] service and will plan for toco lysis [...] 12:19 AM EST documented in this encounter [facility] 06-24-2024 Obstetrics Note Baby is [...] bf mother's groups after dc. Verbalizes understanding. [facility] 06-24-2024 Note Formatting of this n ote might be different from the original. Date: 06/24/2024 Name: Luz Hinojosa : 2000 [facility] Patient Information Primary Caregiver: Self Accompanied by/Relationship: S/O;Family Marital Status: Support System: SO/Family Judaism/Cultural Factors: none Activities of Daily Living Communication: [...] place to sleep or slept in a halfway (including now)? No Transportation Needs Has the [...] Equipment: Developmental Delay: N/A Children's Services: N/A [facility] 06-24-2024 Note Formatting of this n ote might be different from the original. Date: 06/24/2024 Name: Luz Hinojosa : 2000 [facility] Patient Information Primary Caregiver: Self Accompanied by/Relationship: S/O;Family Marital Status: Support System: SO/Family Judaism/Cultural Factors: none Activities of Daily Living Communication: [...] place to sleep or slept in a halfway (including now)? No Transportation Needs Has the [...] Equipment: Developmental Delay: N/A Children's Services: N/A [facility] 06-24-2024 Nurse Note Patient up to ambulate for this first time since delivery. Patient able to ambulate to the bathroom independently. Pads and underwear changed. Lazara care performed. Education provided about abnormal signs of bleeding and lazara care. No questions or concerns voiced. Patient ambulated back to bed without difficulty. Call light within reach. [facility] 06-24-2024 Nurse Note Patient up to ambulate for this first time since delivery. Patient able to ambulate to the bathroom independently. Pads and underwear changed. Lazara care performed. Education provided about abnormal signs of bleeding and lazara care. No questions or concerns voiced. Patient ambulated back to bed without difficulty. Call light within reach. documented in this encounter [facility] 06-23-2024 Labor and delivery summary note Images from the original note were not included. Vaginal Delivery Note Department of Obstetrics and Gynecology Patient: Luz Hinojosa : 2000 Date of delivery: 06/23/2024 Pre-operative Diagnosis: Luz Hutchinson0000 at 29w5d 1. labor 2. Anxiety Post-operative Diagnosis: Live Born male Delivering Bi Consultant & Instructional Technology Coordinator(s): Dr. Ponce; Dr. Adams Infant Information: Information for the patient's : Onesimo Hinojosa [[id number]] Information for the patient's : Onesimo Hinojosa [[id number]] Description: normal Meconium Noted: No Anesthesia: epidural anesthesia Complications: None Application and Delivery: Luz Goel at 29w5d admitted for threatened labor as a transfer from [place]. She progressed with cervical dilation despite tocolysis. [...] Quantitative Blood Loss: 50 mL Onesimo Hinojosa [[id number]] Labor Events labor?: Yes steroids: Full Course [...] of posterior arm: clavicular fracture: Zavanelli maneuver: [place] Delivery Details Forceps attempted?: No Vacuum extractor attempted?: No Forceps Details: Vacuum Details: Cord Vessels: 3 vessels Complications: None Delayed cord clamping?: Yes Placenta Date/time: 06/23/2024 7:57 PM Removal: Spontaneous Appearance: Intact Comment: to NICU Delivery (Maternal) Episiotomy: None Perineal lacerations: None Other lacerations: no non-perineal laceration Repair suture: None Vaginal Counts 4x4 [place] Instruments Lap Pads Sponges Initial counts Interim counts Final counts 17 2 Final count personnel: FLORES Final count verified by: VIRGINIA Accurate final count?: Yes Blood Loss Mother: Luz Hinojosa #[id number] Start of Mother's Information Delivery Blood Loss Intrapartum & : 06/23/24 0749 - 06/23/242132 Delivery Admission: 06/22/24 1832 - 06/23/24 2133 Intrapartum & Delivery Admission Quantitative Blood Loss (mL) Hospital Encounter 50 mL 50 mL Total 50 mL 50 mL End of Mother's Information Mother: Luz Hinojosa #[id number] Delivery Providers Delivering clinician: Jenny Ponce MD Provider Role Consulting Physician Malu Adams MD Delivery Assist Judie Ochoa RN Delivery Nurse Moriah Oreilly, ROXI Nurse Trudi Argueta MOBILE CRANE OPERATOR - GRAIN BLENDER Nurse Practitioner Luci Ramachandran RN NICU Nurse Shavonne eMade, PHOTOVOLTAIC SOLAR CELL DESIGNER Respiratory Therapist Nurse Conveyor Weigher Operator Scrub Nurse Fab Alexis, STRINGED INSTRUMENT REPAIRER Nurse Emily Teresa MD [place] Assessment Living status: Living Scoring Ward: 0 [...] Skin Reason skin to skin not initiated: Acuity [place] Disposition [place] Handoff Immediately at : To warmer with NICU staff: Yes Malu Adams MD Cosigned by Jenny Ponce MD at 06/25/2024 10:09 AM EST Associated attestation - Jenny Ponce MD - 06/25/2024 10:09 AM EST Procedures or Surgery: I was present for all ward elements of the procedure or surgery as described in the resident note. [facility] 06-23-2024 Plan of care note Problem: Antepartum Goal: Maintain as long as maternal and/or condition is stable 06/23/20242101 by Judie Ochoa RN Outcome: Completed 06/23/20242035 by Judie Ochoa RN Outcome: Progressing [facility] 06-23-2024 Note Labor Progress Note Date: 06/23/2024 Time: 4:42 PM Subjective: Luz Hinojosa is a 23 y.o. female at 29w5d admitted for labor Complications: Anxiety SVE : /-[address] Tejada at 1540 GBS: []Pos []Neg [x]Unknown Cx:defer FHP: defer FHT: Cat I [place]: irritable Patient moved over to labor and delivery due to cervical change. Receiving epidural. Will be for repeat cervical exam following epidural process. Continuing magnesium sulfate for neuroprotection and penicillin for GBS prophylaxis done after epidural, unchanged at 5/-2. Patient comfortable with epidural. Continue to monitor, CCM. Malena Winter, 06/23/2024 4:58 PM SVE 10/100. Membranes intact at this time. Will transport to OR at this time. Dr. Ponce updated and en route to hospital. Dr. Carrasco notified of patient for coverage in event of delivery prior to arrival. FHT Cat 1. DEPORTATION OFFICER notified. Moved to OR for delivery. Delivered. [facility] 06-23-2024 Note Epidural Block Time Out: 06/23/2024 4:20 PM Patient location during procedure: OB Start time: 06/23/2024 4:24 PM End time: 06/23/2024 4:35 PM Reason for block: labor analgesia Staffing Performed: [employer]WOOD FLOOR L[employer]ER Resident/HARDWOOD FLOOR LAYER: Juan Rodriguez APRN - CHEPE Preanesthetic Checklist [...] negative Medications Administered lidocaine-EPINEPHrine (Xylocaine W/EPI) 1.5 %-1:[id number] injection - Epidural 3 mL - 06/23/2024 4:27:00 PM ropivacaine (Naropin) 0.2 % epidural bolus - Epidural 10 mL - 06/23/2024 4:30:00 PM Assessment Block outcome: pain improved Procedure assessment: patient tolerated procedure well with no immediate complications Additional Notes Dural puncture performed with 25g Pencan [facility] 06-23-2024 Note Patient: Luz garcia Procedure Information Date: 06/23/24 Procedure: Labor Analgesia Relevant Problems No relevant active problems Clinical information reviewed: Tobacco Allergies Meds Med Hx Surg Hx Fam Hx Soc Hx Physical Exam Airway Mallampati: II TM distance: >3 FB Neck ROM: full Mouth Open: normalendotracheal tube not in place Cardiovascular Dental dentition normal Pulmonary Abdominal seaport planning manager Evaluation Anesthesia Plan patient is NPO appropriate Any family history or previous problems with anesthesia no ASA 2 epidural Any family history or previous problems with anesthesia no The patient is not a current smoker. Anesthetic plan and risks discussed with patient. Use of blood products discussed with who consented to blood products. Additional Equipment Requests [facility] 06-23-2024 Note Formatting of this n ote [...] labor floor and patient may request epidural. DEPORTATION OFFICER updated and aware. [facility] [employer] Work Phone: 06-23-2024 Note Formatting of this [...] labor floor and patient may request epidural. DEPORTATION OFFICER updated and aware. [facility] [employer] Work Phone: 06-23-2024 Note Formatting of this n ote might be different from the original. Date: 06/23/2024 Name: Luz Hinojosa : 2000 [facility] Information [facility] Patient Information Primary Caregiver: Self Accompanied by/Relationship: S/O;Family Marital Status: Single Support System: SO/Family Judaism/Cultural Factors: none Activities of Daily Living Communication: [...] place to sleep or slept in a halfway (including now)? No Transportation Needs Has the [...] N/A Developmental Delay: N/A Children's Services: N/A [facility] [employer] 06-23-2024 Note Formatting of this n ote might be different from the original. Date: 06/23/2024 Name: Luz Hinojosa : 2000 [facility] Patient Information Primary Caregiver: Self Accompanied by/Relationship: S/O;Family Marital Status: Single Support System: SO/Family Judaism/Cultural Factors: none Activities of Daily Living Communication: [...] place to sleep or slept in a halfway (including now)? No Transportation Needs Has the [...] N/A Developmental Delay: N/A [facility] note Associated Order (s): IP [...] Spent 40 minutes. Emily Teresa MD, 06/23/2024 [employer] Phone: 06-23-2024 Consult note Associated Order (s): [...] Teresa MD, 06/23/2024 documented in this encounter [facility] 06-23-2024 Note Discharge Instructio ns Given Worsening The following Patient Education Materials have been given to the patient: ~~ EducationMaterial [facility] 06-23-2024 Plan of care note Problem: Antepartum Goal: Maintain as long as maternal and/or condition is stable Outcome: Progressing Flowsheets (Taken 06/22/20240) Maintain as long as maternal and/or condition is stable: Maternal surveillance water treatment plant repairer uterine activity Medications as ordered Problem: Pain [...] fall injury: Instruct family/caregiver on patient safety [facility] 06-22-2024 History and physical note [...] Not Indicated Admission: Admit to Antepartum (PNU) R: Category 1, heart monitoring CEFM Labs: GBS [...] She was initially noted to be tight 50/-3 and given terbutaline, IR procardia x1, magnesium [...] patient was admitted overnight while I was relations coordinator. I discussed the assessment and management with the resident physician. I reviewed and agree with the findings and plan as documented in the note. Transfer for PTL. Agree with procardia, mag, BMZ and GBS prophylaxis. Juliet Roca MD [facility] 06-22-2024 Note Attestation signed by Juliet Roca MD at 06/23/2024 1:47 PM Attending Supervising Physician's Attestation Statement This patient was admitted overnight while I was relations coordinator. I discussed the assessment and management with [...] >= 72 wing (more content not included)... [facility] 06-22-2024 History and physical note Department of [...] She was initially noted to be tight 50/-3 and given terbutaline, IR procardia x1, magnesium [...] patient was admitted overnight while I was relations coordinator. I discussed the assessment and management with the resident physician. I reviewed and agree with the findings and plan as documented in the note. Transfer for PTL. Agree with procardia, mag, BMZ and GBS prophylaxis. Juliet Roca MD documented in this encounter [facility] 06-21-2024 Note Discharge Instructio ns Given Worsening The following Patient Education Materials have been given to the patient: ~~ EducationMaterial [facility] 06-21-2024 Hospital Discharge instructions Follow Up Care 06/21/2024 16:35:03 With:Anika Bob Address: [address] [place], [place] [address]- Business (1) When:06/23/2024 Comments:Call for any problems.Call for fever > 100.5 FCall for severe abdominal painCall physician if symptoms worsenReturn for decreased movementCall Dr. for more than 3 contractions in an hourReturn if ruptured membranes or vaginal bleedingPelvic restPick [facility] scheduled for SundayJun 23. [facility] 06-21-2024 Evaluation + Plan note Diagnostic Tests PendingUrine Culture 06/21/24 [facility] 06-13-2024 Evaluation + Plan note Diagnostic Tests PendingRPR with Conf Rfx 06/13/24 [facility] 06-06-2024 Note History and Physical HOSPITAL [...] observation. Anika Bob M.D. james Dictated: 06/05/2024 [id number] Transcribed: 06/05/2024 [facility] Comment on above: Result Comment: Elec tronically Signed By: Paulino CORRIGAN, Anika Gomez\.br\Date and Time Signed: 06/06/24 08:54 EST 06-05-2024 Note Discharge Instructio ns Given Worsening The following Patient Education Materials have been given to the patient: ~~ EducationMaterial [facility] 06-03-2024 Hospital Discharge instructions Follow Up Care 06/03/2024 20:09:12 With:Dr. Bob [phone] Address:Unknown When:3 to 4 days Comments:Call for any problems.Call physician for heavy vaginal bleedingCall physician if symptoms worsenReturn for contractions closer, longer, harderReturn for decreased movement [facility] 10-10-2023 History of Present illness Narrative [...] up as before documented in this encounter [facility] Work Phone: 09-22-2023 Evaluation + Plan note Diagnostic Tests PendingAnti-Mullerian Hormone (AMH) 09/22/23FSH and LH 09/22/23Insulin Level Total 09/22/23 [facility] 08-21-2023 History of Present illness [...] Procedure Laterality Date OTHER SURGICAL HISTORY 03/03/2022 [place] tooth extraction Review of Systems: Constitutional: No [...] Dose Status busPIRone (Buspar) 5 mg tablet [id number] No Take by mouth 3 times a day as needed. Historical Provider, Taking Active citalopram (CeleXA) 40 mg tablet [id number] Take 1 tablet (40 mg) by mouth once daily. MYKE Amaya Active nitrofurantoin (Macrodantin) 100 mg capsule [id number] No take 1 capsule twice a day for 3 to 7 days Historical Provider, Taking Active omeprazole (PriLOSEC) [address] capsule [id number] No Take 1 capsule (20 mg) by [...] 08/21/2024 Order Specific Question: [facility] Answer: Immediate [1] Problem List Items Addressed [...] for annual exam. documented in this encounter [facility] Work Phone: 06-19-2023 Emergency department Note HPI [...] Procedure Laterality Date OTHER SURGICAL HISTORY 03/03/2022 [place] tooth extraction Family History Problem Relation Name [...] López PA-C 06/19/231810 documented in this encounter [facility] Work Phone: 06-19-2023 Physician Emergency department Note [...] Procedure Laterality Date OTHER SURGICAL HISTORY 03/03/2022 [place] tooth extraction Family History Problem Relation Name [...] health. Procedure Procedures Bela López PA-C 06/19/231810 [facility] Work Phone: 05-18-2023 History of Present illness [...] up as before documented in this encounter [facility] Work Phone: 04-23-2023 History of Present illness [...] mon with PCP. documented in this encounter [facility] Work Phone: 04-11-2023 Note Send Summary: Discharge Summary Providers: Provider RoleProvider Name Bautista Foy Logeswari PrimaryConley, Amy PrimaryMcArdle, Joyce Note Recipients: Jordyn Thakur, [facility] [phone] [Preferred] Discharge: Summary: Admission Date: .09-Apr-2023 10:40:00 Discharge Date: 11-Apr-2023 Attending Physician at Discharge: Bautista villanueva Admission Reason: Flank pain Final Discharge Diagnoses: Pyelonephritis, acute kidney injury Procedures: none Vital Signs: T PRBPMAPSpO2 [id number]/[id number]% Date/Time04/11 8: 8: 8: 8: 16: 8:00 Range(36.6C - 37.6C ) (70 - 81 ) (16 - 18 ) (107 - 122 )/ (70 - 84 ) (82 - 85 ) (98% - 99% ) Highest temp of 37.6 C was recorded at 04/11 0:00 Date: Weight/Scale Type:Height: 09-Apr-2023 15:5454 kg / voo538.1 cm Physical Exam: General: Not in acute [...] if there are errors there due to plate printer. Bautista Villanueva Hospitalist Discharge Information: and Continuing [...] Last Updated: 11-Apr-2023 09:36 by Bautista Villanueva) [facility] 04-11-2023 Hospital Discharge instructions Activity:activity as tolerated. May shower. May drive.Follow Up Appointment 1:Physician/Dept/Service: Primary care provider Jordyn Maurer for Referral: Pyelonephritis, acute kidney injuryCall to Schedule in: [address] Xcftijdd: She will call and make her own appointment. [facility] 04-09-2023 Note History of Present I llness: [...] are negative Objective: Objective Information: T PRBPMAPSpO2 Value36.56147435/8897% Date/Time04/09 10: 14: 14: 14: 14:12 Range(36.5C - 36.5C ) (69 - 81 ) (16 - 16 ) (123 - 133 )/ (88 - 96 ) (97% - 97% ) Pain reported at 04/09 10:48: 3 = Mild T PRBPMAPSpO2 [id number]/847064% Date/Time04/09 16: 16: 16: 16: 16: 16:00 [...] continue maintenance flu (more content not included)... [facility] 10-03-2022 History of Present illness Narrative Subjective [...] 13-18 <7.5 7-12 <8.0 0- 6 7.5-8.5 [employer] [employer]. Diabetes Care 33(S1), Jul 2009. Assessment/Plan Problem List Items Addressed This Visit None documented in this encounter [facility] Work Phone: 04-25-2022 History of Present illness Narrative [facility] [address] [facility] [address] [facility] [id number] Chief Complaint Patient presents with Left Hand [...] Strength Wrist extension: 5/5 Wrist flexion: 5/5 Jinrikisha Driver: 3/5 Other Erythema: absent Scars: absent Sensation: [...] medications as needed. documented in this encounter [facility] 03-02-2022 History of Present illness Narrative INCONSISTENT SLEEP AT NIGHT SEVERAL TIMES / WEEK . WAKES UP WITH COLD SWEATS., AND DIZZINESS.0N AND OFF. MISSED PERIOD , LAST ONE WAS 2 MONTHS AGO. STOPPED GETTING DEPO SHOT ALMOST 2.5 MONTHS AGO. [facility] Work Phone: 01-01-2022 History of Present illness Narrative ANXIETY , NO PANIC ATTACKS SINCE LAST VISIT.. HASN'T BEEN TAKING THE PRN BUSPAR . CONTROL TX WAS STOPPED SEVERAL MONTHS AGO BUT MENSES ARE NOT BACK MONTHLY..WEIGHT GAIN. [facility] Work Phone: 11-20-2021 History of Present illness Narrative Presents today for C/O SPOTTING FOR SEVERAL DAYS modifying factors consists of STOPPED THE DEPO SHOT WAS NOVEMBER 2021. SHE HAS NOT RESUMED HER PERIODS. NEGATIVE HOME TEST associated symptoms consist of CRAMPING ON/OFF prior treatment consists of medication NONE [facility] Work Phone: 03-03-2021 History [...] REMEMBER THE NAMEGERD- STABLE. MED REFILL [facility] Work Phone: Evaluation note Diagnosis Closed nondisplaced fracture of distal phalanx of left middle finger, initial encounter- [facility] Vaginal yeast infection- Primary Candidiasis of vulva and vagina documented in this encounter [facility] Work Phone: Evaluation note* Diagnosis H/O urinary tract infection- Primary Generalized anxiety disorder with panic attacks documented in this encounter [facility] Work Phone: Evaluation note* Diagnosis Urinary frequency- Primary Urinary tract infection with hematuria, site unspecified Generalized anxiety disorder with panic attacks Gastroesophageal reflux disease without esophagitis Esophageal reflux documented in this encounter [facility] Work Phone: Evaluation note* Diagnosis Urinary tract infection without hematuria, site unspecified- Primary documented in this encounter [facility] Work Phone: Evaluation note* Diagnosis Family planning counseling- Primary Other general counseling and advice for contraceptive management documented in this encounter [facility] Work Phone: Evaluation note* Diagnosis Generalized anxiety disorder with panic attacks- Primary documented in this encounter [facility] Work Phone: Evaluation note* Diagnosis Nausea- Primary Nausea alone Nasal congestion Other diseases of nasal cavity and sinuses Acute non-recurrent sinusitis, unspecified location documented in this encounter [facility] Work Phone: Evaluation note* Diagnosis Generalized anxiety disorder with panic attacks documented in this encounter [facility] Work Phone: Evaluation note* Diagnosis Sore throat- Primary Acute pharyngitis documented in this encounter [facility] Work Phone: Evaluation note* Diagnosis contractions- Primary [facility] Diagnosis Pharyngitis, unspecified etiology- Primary documented in this encounter [facility] Work Phone: Evaluation noteNo assessment information available [facility] Work Phone: History of Present illness Narrative* Jordyn Thakur, FATEMEH-GRAIN BLENDER - 10/20/2022 3:00 PM EDT Subjective Patient [...] Follow [facility] as [facility]: [facility] of Present illness Narrative* [...] 1 MONTH [facility]: [facility] of Present illness Narrative* [...] Follow up as [facility]: [facility] of Present illness Narrative* [...] PROCEDURE REFERRAL WILL CALL documented in this [facility] Work Phone: Hospital course Narrative No data available for this section [facility] instructions No data available for this section [facility] No data available for this section [facility] (narrative)* Consultation (Routine) - Pending Review Specialty Diagnoses / Procedures Referred By Contac t Referred To Contact Obstetrics and Gynecology / Urology Diagnoses Urinary frequency Jordyn Thakur, MOBILE CRANE OPERATOR-[facility] [address] [place] [address] Referral ID Status Reason Start Date Expiration Date Visits Requested Visits Authorized [id number] Pending Review Specialty Services Required 05/17/2024 1 1 [facility] Work Phone: Reason for referral (narrative)* Consultation (Routine) - Authorized Specialty Diagnoses / Procedures Referred By Contjesus t Referred To Contact Primary Care Procedures Follow Up In Primary Care Dominick Lewis MD [address] [place] [address] Referral ID Status Reason Start Date Expiration Date V isits Requested Visits Authorized [id number] Authorized 10/03/2022 04/01/2023 1 1 [facility] Work Phone: Summary Purpose Family History No [...] Comments 06/22/2024 8:16 PM 06/25/2024 4:05 PM Advance Directive Response Recorded Date/ Time Advance Directives No October 20, 025 12:47pm Chief Complaint EST NEW; C/O ANXIETYHAVING PROBLEMS [...] anxiety disorder with panic attacks Jordyn Thakur, MOBILE CRANE OPERATOR-GRAIN BLENDER [address] [place] [address] Referral ID Status Reason Start Date Expiration Date Visits Re quested Visits Authorized [id number] Closed 1 1 Additional Source Comments INFORMATION SOURCE (unrecogn ized section and content) DATE CREATED AUTHOR 10/28/2018 [facility] DATE CREATED AUTHOR AUTHOR'S ORGANIZ ATION 04/08/2019 [facility] DATE CREATED AUTHOR AUTHOR'S ORGANIZ ATION 10/29/2021 [facility] DATE CREATED AUTHOR AUTHOR'S ORGANIZ ATION 06/11/2022 [facility] DATE CREATED AUTHOR AUTHOR'S ORGANIZ ATION 08/04/2022 [place] DATE CREATED AUTHOR AUTHOR'S ORGANIZ ATION 04/02/2023 [facility] DATE CREATED AUTHOR AUTHOR'S ORGANIZ ATION 04/16/2023 [facility] DATE CREATED AUTHOR AUTHOR'S ORGANIZ ATION 05/09/2023 [facility] DATE CREATED AUTHOR AUTHOR'S ORGANIZ ATION 09/03/2023 [facility] DATE CREATED AUTHOR AUTHOR'S ORGANIZ ATION 11/02/2023 [facility] DATE CREATED AUTHOR AUTHOR'S ORGANIZ ATION 01/11/2024 [facility] DATE CREATED AUTHOR AUTHOR'S ORGANIZ ATION 01/13/2024 [facility] DATE CREATED AUTHOR AUTHOR'S ORGANIZ ATION 02/08/2024 [facility] DATE CREATED AUTHOR AUTHOR'S ORGANIZ ATION 02/09/2024 [facility] DATE CREATED AUTHOR AUTHOR'S ORGANIZ ATION 02/10/2024 [facility] DATE CREATED AUTHOR AUTHOR'S ORGANIZ ATION 02/11/2024 [facility] DATE CREATED AUTHOR AUTHOR'S ORGANIZ ATION 05/08/2024 [facility] DATE CREATED AUTHOR AUTHOR'S ORGANIZ ATION 06/06/2024 [facility] DATE CREATED AUTHOR AUTHOR'S ORGANIZ ATION 06/16/2024 [facility] DATE CREATED AUTHOR AUTHOR'S ORGANIZ ATION 06/17/2024 [facility] DATE CREATED AUTHOR AUTHOR'S ORGANIZ ATION 06/18/2024 [facility] DATE CREATED AUTHOR AUTHOR'S ORGANIZ ATION 06/20/2024 [facility] DATE CREATED AUTHOR AUTHOR'S ORGANIZ ATION 06/21/2024 [facility] DATE CREATED AUTHOR AUTHOR'S ORGANIZ ATION 06/22/2024 [facility] DATE CREATED AUTHOR AUTHOR'S ORGANIZ ATION 06/23/2024 [facility] DATE CREATED AUTHOR AUTHOR'S ORGANIZ ATION 06/25/2024 [facility] DATE CREATED AUTHOR AUTHOR'S ORGANIZ ATION 06/26/2024 [facility] DATE CREATED AUTHOR AUTHOR'S ORGANIZ ATION 06/26/2024 [facility] DATE CREATED AUTHOR AUTHOR'S ORGANIZ ATION 08/22/2024 [facility] DATE CREATED AUTHOR AUTHOR'S ORGANIZ ATION 10/12/2024 [facility] DATE CREATED AUTHOR AUTHOR'S ORGANIZ ATION 10/29/2024 [facility] <item><item><item><item><item> Privacy Markings (unrecogniz ed section and [...] YESTERDAY. CURRENTLY Reason Comments Laboring Transfer from [facility] Specialty Diagnoses / Procedures Referred By Contac t Referred To Contact Diagnoses contractions Procedures . Juliet Roca MD [address] [place] [address] Phone: tel: fax: [facility] [address] [place] [address] Phone: tel: Referral ID Status Reason Start Date Expiration Date Visits Re quested Visits Authorized [id number] 1 1 Reason Comments Follow-up Pt co sore throat wa s tested foor strep in er was negative but no better has headache Care Teams (unrecognized sec tion and content) Hand Developer Relationship Specialty Start Date End Date Jordyn Ramirez, GRAIN BLENDER [address] [place] [address] PCP - General Nurse Practitioner 04/25/22 Hand Developer Relationship Specialty Start Date End Date Jordyn Thakur, MOBILE CRANE OPERATOR-GRAIN BLENDER [address] [place] [address] PCP - General 03/03/22 Hand Developer Relationship Specialty Start Date End Date Jordyn Thakur, MOBILE CRANE OPERATOR-GRAIN BLENDER [address] [place] [address] PCP - General 03/03/22 Jordyn Thakur, MOBILE CRANE OPERATOR-GRAIN BLENDER [address] [facility] [place] [address] PCP - [facility] Medicaid PCP 10/21/22 Claudia Quick, completion managerProcessing Spec 04/12/23 Hand Developer Relationship Specialty Start Date End Date Jordyn Thakur, MOBILE CRANE OPERATOR-GRAIN BLENDER [address] [place] [address] PCP - General 03/03/22 Jordyn Thakur, MOBILE CRANE OPERATOR-GRAIN BLENDER [address] [place] [address] PCP - [facility] Medicaid PCP 10/21/22 Claudia Quick, completion managerProcessing Spec 04/12/23 Hand Developer Relationship Specialty Start Date End Date Jordyn Thakur, MOBILE CRANE OPERATOR-GRAIN BLENDER [address] [facility] [place] [address] PCP - General 03/03/22 Jordyn Thakur, MOBILE CRANE OPERATOR-GRAIN BLENDER [address] [place] [address] PCP - [facility] Medicaid PCP 10/21/22 Claudia Quick, completion managerProcessing Spec 04/12/23 Hand Developer Relationship Specialty Start Date End Date Jordyn Thakur, MOBILE CRANE OPERATOR-GRAIN BLENDER [address] [place] [address] PCP - General 03/03/22 Jordyn Thakur, MOBILE CRANE OPERATOR-GRAIN BLENDER [address] [place] [address] PCP - [facility] Medicaid PCP 10/21/22 Hand Developer Relationship Specialty Start Date End Date Jordyn Thakur, MOBILE CRANE OPERATOR-GRAIN BLENDER [address] [place] [address] PCP - General 03/03/22 Jordyn Thakur, MOBILE CRANE OPERATOR-GRAIN BLENDER [address] [place] [address] PCP - [facility] Medicaid PCP 10/21/22 Hand Developer Relationship Specialty Start Date End Date Jordyn Thakur, MOBILE CRANE OPERATOR-GRAIN BLENDER [address] [place] [address] PCP - General 03/03/22 Jordyn Thakur, MOBILE CRANE OPERATOR-GRAIN BLENDER [address] [place] [address] PCP - [facility] Medicaid PCP 10/21/22 Hand Developer Relationship Specialty Start Date End Date Jordyn Thakur, MOBILE CRANE OPERATOR-GRAIN BLENDER [address] [place] [address] PCP - General 03/03/22 Jordyn Thakur, MOBILE CRANE OPERATOR-GRAIN BLENDER [address] [place] [address] PCP - [facility] Medicaid PCP 10/21/22 Hand Developer Relationship Specialty Start Date End Date Jordyn Thakur, MOBILE CRANE OPERATOR-GRAIN BLENDER [address] [place] [address] PCP - General 03/03/22 Jordyn Thakur, MOBILE CRANE OPERATOR-GRAIN BLENDER [address] [place] [address] PCP [facility] Medicaid PCP 01/21/24 Hand Developer Relationship Specialty Start Date End Date Jordyn Thakur, MOBILE CRANE OPERATOR-GRAIN BLENDER [address] [place] [address] PCP - General 03/03/22 Team Status: Active Member Role Status Dates NON STAFF Primary Care Provider Active Team Status: Active Member Role Status Dates Geri Andrews DO Attending Provider Active Start: October 19, 2024 Team Status: Inactive Member Role Status Dates Lola George APRN Attending Provider Active Sta rt: October 20, 2024 End: October 20, 2024 NON STAFF Primary Care Provider Active Start: October 20, 2024 End: October 20, 2024 Team Status: Inactive Member Role Status Dates Geri Andrews DO Attending Provider Active Start: October 19, 2024 End: October 19, 2024 Team Status: Inactive Member Role Status Dates Lola George APRN Attending Provider Active Sta rt: October 20, 2024 End: October 20, 2024 Scheduled Active and Recently Administ ered Medications [...] Tasneem Medrano RN)1150 (Given - Provider: Amy Holder, ROXI) penicillin [...] Tasneem Medrano RN)0314 (Stopped - Provider: Tasneem Medrnao RN)0607 (New Bag - Provider: Tasneem Medrano RN)0637 (Stopped - Provider: Tasneem Medrano RN)1004 (New Bag - Provider: Amy Holder RN)1034 (Due: Stopped - Provider: Amy Holder RN)1400 (New Bag - Provider: Amy Holder RN)1430 (Stopped - Provider: Tanika Whitmore RN)1833 (New Bag - Provider: Alyce Márquez RN)1903 (Stopped - Provider: Judie Ochoa, ROXI)2230 (Canceled Entry - Provider: Luis Diaz RN) potassium chloride (Klor-Con) packet 40 mEq (COMPLETED) [...] epidural)1631 (Rate/Dose Change - Provider: Alyce Márquez RN)2000 (Stopped - Provider: Judie Ochoa RN) magnesium [...] 1545 (New Bag - Provider: Tanika Whitmore RN)190 (Rate/Dose Verify - Provider: Judie Ochoa RN)1954 (Stopped - Provider: Judie Ochoa RN) 034 (Due: Stopped - Provider: Tanika Whitmore RN) oxytocin (Pitocin) 30 units in 500 mL infusion 30 Units, IntraVENous, at 30 mL/hr, Continuous, Starting on Sun06/23/24 at 2114, Post- use ONLY after delivery of baby/ excessive bleeding/ uterine atony. Bag 1 of 2: Bolus for bag to infuse at 999 ml/hour for 15 minutes (15 units in 250cc). After initial bolus then decrease rate to 250cc/hr for 1 hour. Then discontinue. 121 (Rate/Dose Change - Provider: Judie Ochoa RN)1956 (New Bag - Provider: Judie Ochoa, ROXI) oxytocin (Pitocin) 30 units in 500 mL infusion 125 deshaun-units/min (125 mL/hr), IntraVENous, Continuous, Starting on Sun06/23/24 at 2114, For Immediate Post Use Only. Give after [...] 1635 (New Bag - Provider: Juan Rodriguez, MOBILE CRANE OPERATOR - [employer])2004 (Stopped - Provider: Judie Ochoa RN) PRN [...] hours. Give ibuprofen first in the sequence. 232 (Given - Provider: Luis Diaz RN) 0557 (Given - Provider: Odalis Zelaya, ROXI)1437 (Given - Provider: Lindy Lindsay, ROXI)2009 (Given - Provider: Sarah Mata, ROXI) benzocaine 20% containing (Dermoplast) spray Topical, As needed, pain, , Starting on Sun06/23/24 at 2315, , Apply to perineal area. Patient is capable and may self administer at bedside. 232 (Given - Provider: Luis Diaz RN) docusate sodium (Colace) capsule 100 mg 100 mg, Oral, 2 times daily PRN, constipation, Vaginal Delivery, Starting on Sun06/23/24 at 2315, Do not crush or break. 0829 (Given - Provider: Lindy Lindsay, ROXI)2009 (Given [...] the sequence. 2136 (Given - Provider: Judie Ochoa, ROXI) lanolin (Lansinoh) cream Topical, As needed, dry [...] 2325 (Given - Provider: Luis Diaz RN) No Frequency Medication Order 06/23/2024 06/24/2024 06/25/2024 mineral oil liquid - Pyxis ADS Override Pull (COMPLETED) Starting on Sun06/23/24 at 1944, For 1 dose, Yonis Aponte: cabinet override 1946 (Given by Other - Provider: Judie Ochoa RN - Reason: Other) Linked Groups Order Group 1: NIFEdipine (Procardia) capsule 10 mg (COMPLETED) 10 mg, Oral, Every 10 min, First dose on 06/22/24 at 2245, For 3 doses, Hold if BP <90/60 Followed by NIFEdipine (Procardia) capsule 20 mg (CANCELED)Jump to med 20 mg, Oral, Every 6 hours, First dose on 06/22/24 at 2315, Hold if BP <90/60 Group [...] contact provider if no further options ordered. Goals (unrecognized section and content) Goals may be documented in a n alternate section FOR RECORDS PERTAINING TO PATIENTS WHO ARE [...] BE BASED ON THE PRIMARY CLINICAL RECORDS. [facility]. provides no warranty or guarantee of the accuracy or completeness of information in this document.
[2024-10-29 20:45] VITALS: BP 112/73; PULSE 109; TEMP 36.6; O2SAT 98; BMI 20.8
--- NOTE | 2024-10-29 21:16 | ED_ITS ---
HPI - Female Genitourinary General Chief complaint: Urogenital-Female Stated complaint: POSSIBLE YEAST INFECTION Time Seen by Provider: 10/29/24 21:08 Source: patient Mode of arrival: walk-in Limitations: no limitations History of Present Illness HPI Narrative: This 23-year-old female who is seen and evaluated for urinary tract infection on October 19 presents for evaluation of vaginal itching burning and thick white vaginal discharge. She states she no longer feels like she has a UTI. She is not having any urinary frequency urgency or dysuria. She has been using [id number] Monistat cream without significant improvement. She is not having any fevers or chills. She does not have any flank pain or abdominal pain. She denies the possibility of and has no concerns for STDs. Related Data Allergies Allergy/AdvReac Type Severity Reaction Status Date / Time ciprofloxacin Allergy Mild rash Verified 10/29/24 20:54 paxil Allergy Mild Insomnia Uncoded 10/29/24 20:54 clonidine Allergy hives Uncoded 10/29/24 20:54 Review of Systems ROS Status of ROS 10 or more systems reviewed and unremark able except as noted in history and below [facility] Medical History (Updated 10/29/24 @ 21:16 by Geri Andrews MD) GERD (gastroesophageal reflux disease) ?K21.9 - Gastro-esophageal reflux disease without esophagitis (ICD-10) Anxiety ?F41.9 - Anxiety disorder, unspecified (ICD-10) Social History Little interest or pleasure in doing things: not at all Feeling down, depressed, or hopeless: not at all Exam Narrative Exam Narrative: Vital signs and Nursing Notes reviewed: Patient is afebrile, mildly tachycardic with a pulse of 109, blood pressure normal at 112/73, she is not hypoxic with pulse ox of 98% on room air General: Awake, alert, oriented, no acute distress, lying comfortably on the stretcher HEENT: Normocephalic atraumatic, mucous membranes are moist and pink, eyes are clear, normal conjunctiva, vision is grossly intact Chest: Lungs are clear to auscultation with good air entry, there is no wheezing rhonchi or rales appreciated no accessory muscle use, patient is speaking in complete sentences-no chest wall tenderness to palpation CVS: Regular rate and rhythm S1-S2, no murmurs rubs or gallops, pulses are brisk and equal bilaterally ABD: Soft, nondistended, nontender, no rebound guarding or rigidity, bowel sounds are normal, no pulsatile masses appreciated, no flank tenderness Extremities: Moving all extremities Skin: Normal in appearance without rash,pallor, petechiae or purpura Neuro: No focal deficits Constitutional Vital Signs, click to edit/add: Last Vital Signs Temp 97.9 F 10/29/24 20:45 Pulse 109 H 10/29/24 20:45 Resp 18 10/29/24 20:45 BP 112/73 10/29/24 20:45 Pulse Ox 98 10/29/24 20:45 Course Vital Signs Vital signs: Vital Signs Temperature 97.9 F 10/29/24 20:45 Pulse Rate 109 H 10/29/24 20:45 Respiratory Rate 18 10/29/24 20:45 Blood Pressure 112/73 10/29/24 20:45 Pulse Oximetry 98 10/29/24 20:45 Temperature 97.9 F 10/29/24 20:45 Pulse Rate 109 H 10/29/24 20:45 Respiratory Rate 18 10/29/24 20:45 Blood Pressure 112/73 10/29/24 20:45 Pulse Oximetry 98 10/29/24 20:45 MDM - Female Genitourinary MDM Narrative Medical decision making narrative: This 23-year-old female who was treated for with antibiotics for UTI on October 19 presents for evaluation of vaginal discharge that is thick and white with itching and burning. She no longer feels that she has urinary tract infection. She has been using [id number] Monistat cream without significant improvement. She is not having any flank pain abdominal pain fevers or chills. Physical exam and vital signs are normal. She was mildly tachycardic at triage. She will be given a dose of Diflucan in the emergency department and discharged with a prescription for Diflucan to take in 3 days. She is in agreement with this plan. Repeat urinalysis was ordered to confirm successful treatment of her UTi. Urine is not consistent with infection and is contaminated with epithelial cells. Culture is pending at this time. Lab Data Labs: Lab Results 10/29/24 Range/Units 21:05 Urine Color Lt. yellow (YELLOW) Urine Clarity Cloudy A (CLEAR) Urine pH 6.0 (5.0-9.0) Ur Specific [place] 1.025 (1.005-1.025) Urine Protein Trace (NEG/TRACE) mg/dL Urine Glucose (UA) Negative (NEGATIVE) mg/dL Urine Ketones Trace A (NEGATIVE) mg/dL Urine Occult Blood Negative (NEGATIVE) Urine Nitrite Negative (NEGATIVE) Urine Bilirubin Negative (NEGATIVE) Urine Urobilinogen 1.0 (0.2-1.0) EU/dL Ur Leukocyte Esterase Moderate A (NEGATIVE) Urine RBC 0-2 (0-2) #/HPF Urine WBC 5-10 A (NONE SEEN) #/HPF Ur Squamous Epith Cells Many A (NONE/RARE) #/LPF Urine Crystals None seen (None Seen) #/HPF Urine Bacteria Large A (NONE SEEN) #/HPF Urine Casts None seen (NONE SEEN) #/LPF Urine Mucus Trace A (NONE SEEN) Ur Culture Indicated? Yes-[facility] [place] Discharge Plan Discharge Chief Complaint: Urogenital-Female Clinical Impression: Candidiasis, vagina Patient Disposition: Home, Self-Care Time of Disposition Decision: 21:16 Condition: Good Print Language: Serbian Instructions: Yeast Infection (ED) Additional Instructions: Diflucan prescription provided. Referrals: LADI HTAKUR NP [Primary Care Provider] - 1 week Discharge Date/Time: 10/29/24 21:40
[2024-10-29 21:20] LABS: Bilirubin Urine NEGATIVE (NEGATIVE); Blood Urine NEGATIVE (NEGATIVE); Clarity Urine CLOUDY (CLEAR); Color Urine LT. YELLOW (YELLOW); Glucose Urine UA NEGATIVE (NEGATIVE); Ketones Urine TRACE mg/dL (NEGATIVE); Leukocyte Esterase Urine MODERATE (NEGATIVE); Nitrite Urine NEGATIVE (NEGATIVE); Protein Urine TRACE mg/dL (NEG/TRACE); Specific Gravity Urine 1.025 (1.005-1.025)
[2024-10-29] MEDS: FLUCONAZOLE 150 MG TABLET PO (21:36)
[2024-10-29 21:46] LABS: Bacteria Urine LARGE #/HPF (NONE SEEN); Mucus Urine TRACE (NONE SEEN); RBC Urine 0-2 #/HPF (0-2)
[2024-10-29 21:47] LABS: Cast Seen? NONE SEEN #/LPF (NONE SEEN); Crystals Seen? None Seen #/HPF (None Seen); Squamous Epithelial Cell Urine MANY #/LPF (NONE/RARE); Urine Culture Indicated YES-FRMC
== END 2024-10-29 21:40 | disposition home or self-care (01) ==
PROVIDERS: Physician Assistant; Emergency Provider Emergency Medicine; PCP Nurse Practitioner Family
DX: B37.31 Acute candidiasis of vulva and vagina (principal); Z87.440 Personal history of urinary (tract) infections
CPT/HCPCS: 81001; 87086; 99284

== ENCOUNTER 2024-11-27 20:19 | Emergency (ER) | payer OTHER, SELFPAY ==
[2024-11-27 20:25] VITALS: BP 134/88; PULSE 113; TEMP 37; O2SAT 99; BMI 20.8
[2024-11-27 20:31] VITALS: O2SAT 99
--- NOTE | 2024-11-27 20:55 | ED.URI1 ---
HPI - URI/Sore Throat General Chief Complaint: Upper Respiratory Infection Stated Complaint: HEADACHE, RIB AND CP Time Seen by Provider: 11/27/24 20:22 Source: patient Limitations: no limitations History of Present Illness HPI Narrative: This 23-year-old female presents for evaluation of 2 days of ongoing upper respiratory tract symptoms with mild cough, nasal congestion with yellow nasal drainage, aching sensation in her ribs. She denies any chest pain or shortness of breath does not describe the discomfort in her ribs as pain. She does not smoke but occasionally vapes but has not been vaping. She states that her symptoms started 2 weeks ago both her and baby were sick with similar symptoms. Their symptoms resolved but her symptoms have persisted. Her baby tested negative for flu RSV and COVID. She denies any nausea vomiting or diarrhea. She has no abdominal pain. She denies the possibility of . She has no lower extremity pain or swelling. She states she has been having intermittent low-grade fevers. She has been using Tylenol for her fevers and chills. Related Data Home Medications ?Medication ?Instructions ?Recorded ?Confirmed No Known Home Medications 11/27/24 11/27/24 Allergies Allergy/AdvReac Type Severity Reaction Status Date / Time ciprofloxacin Allergy Mild rash Verified 11/27/24 20:28 paxil Allergy Mild Insomnia Uncoded 11/27/24 20:28 clonidine Allergy hives Uncoded 11/27/24 20:28 Review of Systems ROS Status of ROS 10 or more systems reviewed and unremarkable except as noted in history and below [facility] Medical History (Updated 11/27/24 @ 21:29 by Geri Andrews MD) GERD (gastroesophageal reflux disease) ?K21.9 - Gastro-esophageal reflux disease without esophagitis (ICD-10) Anxiety ?F41.9 - Anxiety disorder, unspecified (ICD-10) Social History Little interest or pleasure in doing things: not at all Feeling down, depressed, or hopeless: not at all Exam Narrative Exam Narrative: Vital signs and Nursing Notes reviewed: Patient is afebrile, she is mildly tachycardic with a pulse of 113, blood pressure is mildly elevated 134/88, she is not hypoxic with pulse ox of 99% on room air General: Awake, alert, oriented, no acute distress, smiling and interactive lying comfortably on the stretcher HEENT: Normocephalic atraumatic, mucous membranes are moist and pink, eyes are clear, normal conjunctiva, vision is grossly intact, posterior pharynx is normal in appearance. Tympanic membranes are normal bilaterally Neck: Supple, no meningeal signs, no anterior or posterior cervical lymphadenopathy Chest: Lungs are clear to auscultation with good air entry, there is no wheezing rhonchi or rales appreciated no accessory muscle use, patient is speaking in complete sentences-no chest wall tenderness to palpation CVS: Regular rate and rhythm S1-S2, no murmurs rubs or gallops, pulses are brisk and equal bilaterally ABD: Soft, nondistended, nontender, no rebound guarding or rigidity, bowel sounds are normal, no pulsatile masses appreciated Extremities: Moving all extremities, no lower extremity tenderness or swelling noted, negative Homans' sign, pulses are brisk and equal bilaterally Skin: Normal in appearance without rash,pallor, petechiae or purpura Neuro: No focal deficits Constitutional Vital Signs, click to edit/add: Last Vital Signs Temp 98.6 F 11/27/24 20:25 Pulse 113 H 11/27/24 20:25 Resp 16 11/27/24 20:25 BP 134/88 11/27/24 20:25 Pulse Ox 99 11/27/24 20:31 O2 Del Method Room Air 11/27/24 20:31 Course Vital Signs Vital signs: Vital Signs Temperature 98.6 F 11/27/24 20:25 Pulse Rate 113 H 11/27/24 20:25 Respiratory Rate 16 11/27/24 20:25 Blood Pressure 134/88 11/27/24 20:25 Pulse Oximetry 99 11/27/24 20:25 Oxygen Delivery Method Room Air 11/27/24 20:25 Temperature 98.6 F 11/27/24 20:25 Pulse Rate 113 H 11/27/24 20:25 Respiratory Rate 16 11/27/24 20:25 Blood Pressure 134/88 11/27/24 20:25 Pulse Oximetry 99 11/27/24 20:31 Oxygen Delivery Method Room Air 11/27/24 20:31 MDM - URI/Sore Throat MDM Narrative Medical decision making narrative: This 23-year-old female who occasionally vapes and is not on control presents for evaluation of 2 weeks of intermittent headaches, fevers with yellow nasal drainage on mild coughing. She also states she has some rib discomfort on both sides of her ribs. She is not having any chest pain or shortness of breath. Her symptoms started 2 weeks ago when her then baby both got sick. Her baby tested negative for COVID RSV and influenza. Her and baby have improved but she is still having symptoms. She states she is still having low-grade fevers. She denies any urinary symptoms. She denies the possibility of . She is not having any abdominal pain. She has no lower extremity pain or swelling. She is negative for influenza and COVID-19 and a 2 view chest x-ray was ordered and reviewed by myself. Chest x-ray does not show any acute pulmonary infiltrate with normal cardiac borders and normal mediastinum. In light of the fact that her symptoms have been ongoing for greater than 2 weeks ( MIPS guidelines) she will be offered antibiotics to treat a likely sinus infection. She will be discharged home with a prescription for Zithromax Z-KIANNA, as she gets vaginitis with PCN and Cipro, with recommendation for copious fluid intake, Tylenol and Motrin for fevers and follow-up closely with the family physician. Lab Data Labs: Lab Results 11/27/24 Range/Units 20:50 Influenza Type A Ag Negative Influenza Type B Ag Negative SARS-CoV-2 Ag (CV2AG) Negative (NEGATIVE) Discharge Plan Discharge Chief Complaint: Upper Respiratory Infection Clinical Impression: Sinusitis Patient Disposition: Home, Self-Care Time of Disposition Decision: 21:29 Condition: Good Prescriptions / Home Meds: No Action No Known Home Medications Print Language: Martiniquais Instructions: Sinusitis (ED) Referrals: LADI THAKUR, [employer] [Primary Care Provider] - 1 week
[2024-11-27 21:10] LABS: Influenza Virus A Antigen Negative; Influenza Virus B Antigen Negative; Internal Control Within Normal Limits; SARS-CoV-2 Ag NEGATIVE (NEGATIVE)
== END 2024-11-27 21:36 | disposition home or self-care (01) ==
PROVIDERS: Emergency Provider Emergency Medicine; PCP Nurse Practitioner Family
DX: J32.9 Chronic sinusitis, unspecified (principal); F17.290 Nicotine dependence, other tobacco product, uncomplicated
CPT/HCPCS: 71046; 87804; 87811; 99285